=== PATIENT | female | born 1940 | race Caucasian/White ===

== ENCOUNTER → 2017-05-17 08:14 | Outpatient (CLI) | payer MEDICARE, SELFPAY ==
[2017-05-17 10:12] LABS: Absolute Lymphocyte Count 1.94 X10^3/ul (0.83-4.51); Absolute Neutrophil Count 1.8 X10^3/uL (2.0-7.7); Basophil# 0.04 X10^3/uL; Basophil% 0.9 % (0-1); Eosinophil# 0.15 X10^3/uL; Eosinophils% 3.4 % (0-5); Hematocrit 39.8 % (37-47); Hemoglobin 13.3 g/dl (12.0-15.0); Lymphocyte # 1.94 X10^3/ul (4.0); Lymphocyte % 43.5 % (19-41); Mean Corp Hgb Conc 33.4 g/gl (32-36); Mean Corpuscular Volume 92.8 fL (81-99); Mean Platelet Vol. 10.5 fl (6.2-12.0); Monocyte# 0.55 X10^3/uL; Monocyte% 12.3 % (0-10); Neutrophil # 1.78 X10^3/uL (2.7-7.7); Neutrophil % 39.9 % (47-70); Platelet Count 186 K/mm3 (150-450); RBC Distribution Width CV 13.1 % (11.6-14.6); RBC Distribution Width SD 43.2 fl (35.1-43.9); Red Blood Count 4.29 M/mm3 (4.2-5.4); White Blood Count 4.5 K/mm3 (4.4-11.0)
[2017-05-17 10:17] LABS: POSITIVE COUNT NO; POSITIVE DIFFERENTIAL NO; POSITIVE MORPHOLOGY NO
[2017-05-17 10:21] LABS: ALB/GLOB Ratio 1.1 RATIO (0.9-2.4); AST(SGOT) 27 U/L (15-37); Alanine Aminotransfer ALT/SGPT 19 U/L (13-56); Albumin, Serum 3.7 g/dL (3.2-5.0); Alkaline Phosphatase 50 U/L (45-117); Anion Gap 8 (5-15); BUN 27 mg/dL (7-18); BUN/Creat Ratio 34.8 RATIO (10-20); Calcium,Total 8.9 mg/dL (8.5-10.1); Chloride 105 mmol/L (98-107); Creatinine, Serum 0.78 mg/dL (0.55-1.02); EST Glomerular Filtration Rate 77 mL/min (>60); Est Glom Filt Rate - Afr Amer 93 mL/min (>60); Globulin 3.5 g/dL (2.2-4.2); Glucose 77 mg/dL (74-106); Potassium 4.1 mmol/L (3.5-5.1); Protein, Total 7.2 g/dL (6.4-8.2); Sodium Level 142 mmol/L (136-145)
[2017-05-17 10:25] LABS: Hemoglobin A1c 5.8 % (4.2-6.3)
[2017-05-17 10:27] LABS: Vitamin D,25 Hydroxy 44.6 ng/mL (29.95-100.01)
[2017-05-17 16:52] LABS: Microalbumin,Random Urine 7.3 mg/L (NO RANGE EST.)
== END ==
PROVIDERS: Family Provider Internal Medicine; PCP Internal Medicine; Visit Provider Internal Medicine
DX: R73.09 Other abnormal glucose (principal); M81.0 Age-related osteoporosis without current pathological fracture
CPT/HCPCS: 36415; 80053; 82043; 82306; 82570; 83036; 85025

== ENCOUNTER → 2017-08-24 12:58 | Outpatient (CLI) | payer MEDICARE, SELFPAY ==
--- NOTE | 2017-08-24 12:59 | BI_ITS ---
MAMMOGRAPHY - BILATERAL SCREENING REASON FOR EXAM: Female, 76 years old. Routine annual screening examination. PERTINENT HISTORY: Mother with breast cancer. TECHNIQUE: Digital bilateral breast tara (3D mammographic acquisition) in the CC and MLO projections. 2-D mediolateral oblique (MLO) and craniocaudad (CC) views of both breasts were obtained. CAD: Full Field Digital Mammography with Computer Added Detection was performed. COMPARISON: Comparison is made with prior study dated August 22, 2016 and August 21, 2015. FINDINGS: Breast Composition: The breasts are heterogeneously dense, which may obscure small masses. There are no dominant masses or suspicious calcifications. No other significant abnormalities are identified. There has been no significant change since the prior study. BI/SCREENING MAMM (CAD), BILAT IMPRESSION: Stable bilateral screening mammogram. Yearly follow-up mammogram recommended. (A) ASSESSMENT CATEGORY: BIRADS Category 1: Negative. A letter regarding these results will be sent to the patient by the facility within 30 days. Approximately 10% of breast cancers are not detected by mammography. A normal mammogram should not delay biopsy of a clinically suspicious abnormality. [id number] Electronically Signed: Graham Rivera MD at 8:04 EDT Tel [phone], Service support ,
== END ==
PROVIDERS: Family Provider Internal Medicine; PCP Internal Medicine; Visit Provider Internal Medicine
DX: Z12.31 Encounter for screening mammogram for malignant neoplasm of breast (principal)
CPT/HCPCS: 77063; 77067

== ENCOUNTER → 2018-01-20 09:01 | Outpatient (CLI) | payer MEDICARE, SELFPAY ==
[2018-01-20 09:58] LABS: Absolute Lymphocyte Count 1.66 X10^3/ul (0.83-4.51); Absolute Neutrophil Count 1.5 X10^3/uL (2.0-7.7); Basophil# 0.03 X10^3/uL; Basophil% 0.8 % (0-1); Eosinophil# 0.17 X10^3/uL; Eosinophils% 4.5 % (0-5); Hematocrit 38.8 % (37-47); Hemoglobin 12.4 g/dl (12.0-15.0); Lymphocyte # 1.66 X10^3/ul (4.0); Lymphocyte % 43.9 % (19-41); Mean Corpuscular Hgb 30.4 pg (27.0-32.0); Mean Corpuscular Volume 95.1 fL (81-99); Mean Platelet Vol. 10.2 fl (6.2-12.0); Monocyte# 0.43 X10^3/uL; Monocyte% 11.4 % (0-10); Neutrophil # 1.49 X10^3/uL (2.7-7.7); Neutrophil % 39.4 % (47-70); POSITIVE COUNT NO; POSITIVE DIFFERENTIAL NO; POSITIVE MORPHOLOGY NO; Platelet Count 177 K/mm3 (150-450); RBC Distribution Width CV 13.9 % (11.6-14.6); RBC Distribution Width SD 47.8 fl (35.1-43.9); Red Blood Count 4.08 M/mm3 (4.2-5.4); White Blood Count 3.8 K/mm3 (4.4-11.0)
[2018-01-20 10:16] LABS: Hemoglobin A1c 5.5 % (4.2-6.3)
[2018-01-20 10:21] LABS: Microalbumin,Random Urine 13.8 mg/L (NO RANGE EST.); Microalbumin:Creatinine Ratio 14.8 mg/g CRE (<30 mg/g CRE)
[2018-01-20 10:36] LABS: ALB/GLOB Ratio 1.1 RATIO (0.9-2.4); AST(SGOT) 25 U/L (15-37); Alanine Aminotransfer ALT/SGPT 25 U/L (13-56); Albumin, Serum 3.5 g/dL (3.2-5.0); Alkaline Phosphatase 47 U/L (45-117); Anion Gap 8 (5-15); BUN 27 mg/dL (7-18); BUN/Creat Ratio 37.5 RATIO (10-20); Calcium,Total 8.4 mg/dL (8.5-10.1); Chloride 108 mmol/L (98-107); Creatinine, Serum 0.72 mg/dL (0.55-1.02); EST Glomerular Filtration Rate 84 mL/min (>60); Est Glom Filt Rate - Afr Amer 101 mL/min (>60); Globulin 3.3 g/dL (2.2-4.2); Glucose 82 mg/dL (74-106); Potassium 4.1 mmol/L (3.5-5.1); Protein, Total 6.8 g/dL (6.4-8.2); Sodium Level 143 mmol/L (136-145)
== END ==
PROVIDERS: Family Provider Internal Medicine; PCP Internal Medicine; Referring Provider Internal Medicine; Visit Provider Internal Medicine
DX: R73.09 Other abnormal glucose (principal)
CPT/HCPCS: 36415; 80053; 82043; 82570; 83036; 85025

== ENCOUNTER → 2018-04-17 12:25 | Outpatient (CLI) | payer MEDICARE, SELFPAY ==
--- NOTE | 2018-04-17 12:31 | BD_ITS ---
STUDY: DUAL ENERGY X-RAY ABSORPTIOMETRY / DXA REASON FOR EXAM: Female, 77 years old. The patient is postmenopausal. Loss of height. TECHNIQUE: Bone Mineral Density (BMD) measurements of lumbar spine and bilateral hips were obtained. COMPARISON: Comparison is made with prior study dated April 13, 2016. FINDINGS: Lumbar Spine (L1-L4): g/cm2 (0.832) / T-score (-2.8) / Z-score (-1.0) Findings are suggestive of osteoporosis with a high fracture risk. Left Femur Total: g/cm2 (0.826) / T-score (-1.4) / Z-score (0.4) Left Femoral Neck: g/cm2 (0.841) / T-score (-1.4) / Z-score (0.6) Right Femur Total: g/cm2 (0.839) / T-score (-1.3) / Z-score (0.5) Right Femoral Neck: g/cm2 (0.782) / T-score (-1.8) / Z-score (0.1) The T-Scores on the most recent prior examination were: Lumbar Spine (L1-L4): There has been improvement of bone density since the previous examination. Left Femur Total: which represents a worsening of 1.3%. Right Femur Total: which represents an improvement of 3.2%. BD/Dexa Bone Density Study IMPRESSION: The patient is considered osteoporotic as outlined below according to World Trino Organization (WHO) criteria with a high fracture risk. There has been improvement of bone density since the previous examination. Reference Information: The T-score is the number of standard deviations above or below the standard which is normal for young adults at their peak bone mineral density. The World Health Organization (WHO) interprets the T-scores as follows: Above -1 Normal bone density Between -1 and -2.5 Osteopenia Equal to / or below -2.5 Osteoporosis As a practical clinical guideline, osteopenia may be graded as follows: Mild -1 through -1.5 Moderate -1.6 through -2.0 Severe -2.1 through -2.4 The Z-score is the number of standard deviations above or below age-matched controls. A Z-score of less than -1.5 would be considered abnormal. References: 1. NIH Osteoporosis and Related Bone Diseases http://www.osteo.org 2. International Society for Clinical Densitometry http://www.iscd.org 3. National Osteoporosis Foundation http://www.nof.org Electronically Signed: Graham Rivera MD at 12:46 EST , Service support ,
== END ==
PROVIDERS: Family Provider Internal Medicine; PCP Internal Medicine; Referring Provider Internal Medicine; Visit Provider Internal Medicine
DX: Z78.0 Asymptomatic menopausal state (principal)
CPT/HCPCS: 77080

== ENCOUNTER → 2018-05-17 08:08 | Outpatient (CLI) | payer MEDICARE, SELFPAY ==
[2018-05-17 09:08] LABS: Absolute Lymphocyte Count 1.93 X10^3/ul (0.83-4.51); Absolute Neutrophil Count 1.4 X10^3/uL (2.0-7.7); Basophil# 0.03 X10^3/uL; Basophil% 0.8 % (0-1); Eosinophil# 0.12 X10^3/uL; Eosinophils% 3.2 % (0-5); Hematocrit 40.5 % (37-47); Lymphocyte # 1.93 X10^3/ul (4.0); Lymphocyte % 51.6 % (19-41); Mean Corp Hgb Conc 32.1 g/gl (32-36); Mean Corpuscular Hgb 30.2 pg (27.0-32.0); Mean Corpuscular Volume 94.2 fL (81-99); Neutrophil # 1.36 X10^3/uL (2.7-7.7); Neutrophil % 36.4 % (47-70); POSITIVE COUNT NO; POSITIVE DIFFERENTIAL NO; POSITIVE MORPHOLOGY NO; Platelet Count 182 K/mm3 (150-450); RBC Distribution Width CV 13.3 % (11.6-14.6); RBC Distribution Width SD 45.6 fl (35.1-43.9); White Blood Count 3.7 K/mm3 (4.4-11.0)
[2018-05-17 09:13] LABS: Hemoglobin A1c 5.6 % (4.2-6.3)
[2018-05-17 09:30] LABS: ALB/GLOB Ratio 1.2 RATIO (0.9-2.4); AST(SGOT) 29 U/L (15-37); Alanine Aminotransfer ALT/SGPT 21 U/L (13-56); Albumin, Serum 3.8 g/dL (3.2-5.0); Alkaline Phosphatase 52 U/L (45-117); Anion Gap 4 (5-15); BUN 26 mg/dL (7-18); Calcium,Total 8.7 mg/dL (8.5-10.1); Chloride 108 mmol/L (98-107); Creatinine, Serum 0.76 mg/dL (0.55-1.02); EST Glomerular Filtration Rate 78 mL/min (>60); Est Glom Filt Rate - Afr Amer 94 mL/min (>60); Globulin 3.3 g/dL (2.2-4.2); Glucose 82 mg/dL (74-106); Potassium 4.4 mmol/L (3.5-5.1); Protein, Total 7.1 g/dL (6.4-8.2); Sodium Level 141 mmol/L (136-145)
[2018-05-18 08:29] LABS: Hep C Antibodies <0.1 s/co ratio (0.0-0.9)
== END ==
PROVIDERS: Family Provider Internal Medicine; PCP Internal Medicine; Referring Provider Internal Medicine; Visit Provider Internal Medicine
DX: Z11.59 Encounter for screening for other viral diseases (principal); R73.09 Other abnormal glucose
CPT/HCPCS: 36415; 80053; 83036; 85025; 86803

== ENCOUNTER → 2018-06-19 13:00 | Outpatient (CLI) | payer MEDICARE, SELFPAY ==
--- NOTE | 2018-06-19 13:05 | ECHOD_ITS ---
Reason For Study: Near Syncope Procedure This was a 2D Doppler, Color Flow transthoracic echocardiogram. Exam performed in department. Left Ventricle Normal LV size. Left ventricular systolic function is normal. The estimated ejection fraction is 65 %. Diastolic function is indeterminate. No regional wall motion abnormalities noted. Right Ventricle Normal RV size. Normal systolic function. Atria The left atrium is mildly enlarged. Normal right atrium. No doppler evidence for ASD. Mitral Valve There is no mitral annular calcification. Normal mitral valve. Trivial mitral valve insufficiency. Tricuspid Valve Normal tricuspid valve. Trivial tricuspid valve insufficiency. Right ventricular systolic pressure estimated to be 16 mmHg. Aortic Valve Trisinus/trileaflet aortic valve. Mild focal aortic valve calcification. Pulmonic Valve The pulmonic valve is not well visualized. Great Vessels The aortic root is not well visualized. Pericardium/Pleural No pericardial effusion. MMode/2D Measurements & Calculations LVIDd: 3.8 cm IVSd: 0.85 cm LA dimension: 2.9 cm LVIDs: 1.9 cm LVPWd: 0.88 cm RVDd: 2.7 cm FS: 50.2 % LAV(MOD-bp): 67.8 ml LA A4 area: 21.4 cm2 RA A4 area: 14.4 cm2 LAV(MOD-bp) Indexed: 42.3 ml/m2 LAV(MOD-sp2): 66.5 ml LAV(MOD-sp4): 66.6 ml Time Measurements MV dec time: 0.25 sec Doppler Measurements & Calculations MV E max shabbir: 74.7 cm/sec Lat Peak E' Shabbir: 8.4 cm/sec Med Peak E' Shabbir: 7.0 cm/sec MV A max shabbir: 77.3 cm/sec E/E' lat: 8.9 E/E' med: 10.7 MV E/A: 0.97 MV V2 max: 87.9 cm/sec MV P1/2t max shabbir: 84.7 cm/sec Ao V2 max: 129.3 cm/sec MV max P.1 mmHg MV P1/2t: 96.8 msec Ao max P.7 mmHg MV V2 mean: 45.5 cm/sec MV dec slope: 256.2 cm/sec2 MV mean P.0 mmHg MVA(P1/2t): 2.3 cm2 MV V2 VTI: 29.9 cm LV V1 max: 99.7 cm/sec PA V2 max: 88.6 cm/sec TR max shabbir: 180.9 cm/sec LV V1 max P.0 mmHg TR max P.1 mmHg Interpretation Summary Left ventricular systolic function is normal. The estimated ejection fraction is 65 %. The left atrium is mildly enlarged. Trivial mitral valve insufficiency. Trivial tricuspid valve insufficiency. Mild focal aortic valve calcification. Right ventricular systolic pressure estimated to be 16 mmHg. Diastolic function is indeterminate. Ordering Physician: Gia Grover Referring Physician: Gia Grover Performed By: Terry Epps RCS
== END ==
PROVIDERS: Family Provider Internal Medicine; PCP Internal Medicine; Referring Provider Internal Medicine; Visit Provider Internal Medicine
DX: R55 Syncope and collapse (principal)
CPT/HCPCS: 93225; 93226; 93306

== ENCOUNTER → 2018-06-22 | Outpatient (CLI) | payer MEDICARE, SELFPAY | END | disposition home or self-care (01) | PROVIDERS: Family Provider Internal Medicine; PCP Internal Medicine; Referring Provider Internal Medicine; Visit Provider Internal Medicine | DX: R55 Syncope and collapse (principal) | CPT/HCPCS: 93225; 93226 ==

== ENCOUNTER → 2018-07-06 | Outpatient (CLI) | payer MEDICARE, SELFPAY ==
--- NOTE | 2018-07-06 09:34 | STRESSREP ---
Stress Test Report Date: 07-06-18 Procedure: Exercise tolerance test/imaging study Indications: Syncope Consent: Per the patient Procedure: The patient exercised on a Wally protocol for 7 minutes completing Stage II and 1 minute of Stage III achieving a peak heart rate of 173 bpm (95 % predicted maximal heart rate) with a peak blood pressure 142/70 mmHg and a peak MET capacity of 8 METs. The baseline ECG demonstrated normal sinus rhythm. The peak exercise ECG demonstrated no obvious ECG changes. There were rare PACs pretest and rare PVCs during exercise and recovery. The functional capacity was considered good. There was no complaint of chest discomfort during exercise or recovery. The examination was discontinued secondary to dyspnea. Impression: 1. Technically adequate (percent predicted maximal heart rate greater than 85%) exercise tolerance test 2. Peak exercise ECG with no obvious ECG changes 3. There were rare PACs pretest and rare PVCs during exercise and recovery 4. Nuclear images pending Myocardial perfusion imaging study: Technique: The patient was injected with 10.8 mCi of technetium 99m Cardiolite and subsequently rest SPECT Cardiolite nuclear imaging was obtained in the horizontal long, vertical long, and short axis views. The patient exercised on a Wally protocol for 7 minutes completing Stage II and 1 minute of Stage III achieving a peak heart rate of 173 bpm (95 % predicted maximal heart rate) with a peak blood pressure 142/70 mmHg and a peak MET capacity of 8 METs. The patient was injected with 33.5 mCi of technetium 99m Cardiolite and subsequently stress SPECT Cardiolite nuclear imaging was obtained in the horizontal long, vertical long, and short axis views. A gated Cardiolite study at peak stress was obtained. Interpretation: Rest and stress SPECT Cardiolite nuclear imaging status post realignment, normalization, and attenuation correction, demonstrates the appearance of relative uniform tracer uptake and myocardial perfusion appearing within normal limits. There is end systolic thickening and brightening. The gated Cardiolite study demonstrates myocardial thickening and inward wall motion. The reported LVEF is 85 %. Impression: 1. Rest and stress SPECT Cardiolite nuclear imaging demonstrate relative uniform tracer uptake and myocardial perfusion appearing within normal limits. 2. The gated Cardiolite study reports an LVEF of 85 %. This note was generated with [employer] software. It may contain incorrect words, spelling, and punctuation that were not noted in checking the note before signing.
== END | disposition home or self-care (01) ==
LOC: CVS 06:45
PROVIDERS: Family Provider Internal Medicine; PCP Internal Medicine; Referring Provider Internal Medicine; Visit Provider Internal Medicine
DX: R06.02 Shortness of breath (principal); R55 Syncope and collapse
CPT/HCPCS: 78452; 93017; A9500; A4216

== ENCOUNTER → 2018-07-10 | Outpatient (CLI) | payer MEDICARE, SELFPAY ==
--- NOTE | 2018-07-10 13:45 | MRI_ITS ---
STUDY: MRI BRAIN WITH AND WITHOUT CONTRAST REASON FOR EXAM: Female, 77 years old. Syncope with episodes of dizziness. TECHNIQUE: Standardized multiplanar fat and water weighted pulse sequences were obtained. 11 ml of IV Dotarem was administered for the contrast portion of the examination. COMPARISON: Prior comparison studies are not available for review at this time. FINDINGS: There is mild cerebral atrophy with widening of the extra-axial spaces and ventricular dilatation. There are a limited number of small white matter hyperintensities, distributed throughout the deep white matter tracts of the cerebral hemispheres, consistent with mild chronic white matter ischemic changes. There is no evidence for recent intracranial ischemia or other cause of cytotoxic edema on diffusion weighted imaging (DWI). Normal T2* images of the brain without demonstrated susceptibility artifact. There is no demonstrated hemosiderin stain. Normal bilateral basal ganglia. Normal thalami. There is no extra-axial fluid accumulation. Normal flow voids within the major intracranial circulation suggesting patency by spin echo criteria. Normal venous enhancement. There is no enhancing intra-axial or extra-axial abnormality. Normal sella turcica, pituitary gland, infundibular stalk, optic chiasm and hypothalamus. Normal tectal plate and pineal gland. Normal midbrain, gregg and medulla. Normal cerebellum. There are large basal cisterns. Normal bilateral temporal bones. Normal bilateral internal auditory canals. No demonstrated orbital abnormality, within the constraints of a routine brain study. There is a right-sided maxillary mucous retention cyst. Normal calvarium and skull base. Normal visualized soft tissue structures. Normal visualized upper cervical spine. MRI/Brain W/WO Contrast IMPRESSION: 1. Involutional changes of the brain, as described above. 2. No MR evidence for acute infarct. Electronically Signed: Arin Wagoner MD at 9:15 EDT , Service support ,
[2018-07-10 14:16] LABS: CREATININE FINGERSTICK 0.8 mg/dL (0.55-1.02); EGFR FINGERSTICK > 60.0000 mL/min (>60)
== END | disposition home or self-care (01) ==
LOC: MRI 12:56
PROVIDERS: Family Provider Internal Medicine; PCP Internal Medicine; Referring Provider Internal Medicine; Visit Provider Internal Medicine
DX: R55 Syncope and collapse (principal)
CPT/HCPCS: 70553; A9575

== ENCOUNTER → 2018-08-29 | Outpatient (CLI) | payer MEDICARE, SELFPAY ==
--- NOTE | 2018-08-29 14:54 | BI_ITS ---
MAMMOGRAPHY - BILATERAL SCREENING 3-D TOMOSYNTHESIS REASON FOR EXAM: Female, 78 years old. Bilateral Screening 3-D tomosynthesis PERTINENT HISTORY: No significant family history. TECHNIQUE: 2-D mammograms and 3-D Tomosynthesis of the breast (s) were performed. CAD was performed. COMPARISON: August 24, 2017, August 21, 2016 FINDINGS: The breast composition is composed of scattered fibroglandular density. Scattered benign calcifications are seen. No dense spiculated masses or suspicious microcalcifications are identified. No architectural distortion is identified. There is no skin thickening or retraction. There has been no significant change since the prior study. BI/SCREEN MAMM (CAD) W/[place] BILAT IMPRESSION: No mammographic signs of malignancy. Routine yearly mammograms recommended. ASSESSMENT CATEGORY: BIRADS Category 2: Benign. A letter regarding these results will be sent to the patient by the facility within 30 days. FOLLOW UP RECOMMENDATION: Yearly follow up mammogram recommended. (A) Approximately 10% of breast cancers are not detected by mammography. A normal mammogram should not delay biopsy of a clinically suspicious abnormality. Electronically Signed: Servando Mahmood MD at 15:50 EDT , Service support ,
== END | disposition home or self-care (01) ==
LOC: OPBI 14:51
PROVIDERS: Family Provider Internal Medicine; PCP Internal Medicine; Referring Provider Internal Medicine; Visit Provider Internal Medicine
DX: Z12.31 Encounter for screening mammogram for malignant neoplasm of breast (principal)
CPT/HCPCS: 77063; 77067

== ENCOUNTER → 2018-10-18 | Outpatient (CLI) | payer MEDICARE, SELFPAY ==
[2018-10-18 08:44] LABS: Absolute Neutrophil Count 1.7 X10^3/uL (2.0-7.7); Basophil# 0.05 X10^3/uL; Basophil% 1.2 % (0-1); Eosinophil# 0.22 X10^3/uL; Eosinophils% 5.2 % (0-5); Hematocrit 40.1 % (37-47); Lymphocyte % 42.4 % (19-41); Mean Corp Hgb Conc 32.4 g/dL (32-36); Mean Corpuscular Hgb 30.5 pg (27.0-32.0); Mean Corpuscular Volume 94.1 fL (81-99); Monocyte# 0.49 X10^3/uL; Monocyte% 11.5 % (0-10); NRBC Flagged by Analyzer 0 % (0-5); Neutrophil # 1.68 X10^3/uL (2.7-7.7); Neutrophil % 39.5 % (47-70); Platelet Count 178 K/mm3 (150-450); RBC Distribution Width CV 13.3 % (11.6-14.6); RBC Distribution Width SD 45.9 fl (35.1-43.9); Red Blood Count 4.26 M/mm3 (4.2-5.4); White Blood Count 4.3 K/mm3 (4.4-11.0)
[2018-10-18 09:12] LABS: AST(SGOT) 22 U/L (15-37); Alanine Aminotransfer ALT/SGPT 19 U/L (13-56); Albumin, Serum 3.5 g/dL (3.2-5.0); Alkaline Phosphatase 50 U/L (45-117); Anion Gap 5 (5-15); BUN 25 mg/dL (7-18); BUN/Creat Ratio 28.8 RATIO (10-20); Calcium,Total 8.9 mg/dL (8.5-10.1); Chloride 106 mmol/L (98-107); Cholesterol 189 mg/dL (200); Creatinine, Serum 0.87 mg/dL (0.55-1.02); EST Glomerular Filtration Rate 67 mL/min (>60); Est Glom Filt Rate - Afr Amer 82 mL/min (>60); Globulin 3.4 g/dL (2.2-4.2); Glucose 80 mg/dL (74-106); High Density Lipoprotein 115 mg/dL; Potassium 4.1 mmol/L (3.5-5.1); Protein, Total 6.9 g/dL (6.4-8.2); Sodium Level 142 mmol/L (136-145); Triglycerides 48 mg/dL; Very Low Density Lipoprotein 10 mg/dL (5-40)
[2018-10-18 09:19] LABS: Hemoglobin A1c 5.8 % (4.2-6.3)
[2018-10-21 11:07] LABS: Rubeola IgG Ab > 300.0 AU/mL (Immune >29.9)
== END | disposition home or self-care (01) ==
LOC: LAB 07:59
PROVIDERS: Family Provider Internal Medicine; PCP Internal Medicine; Referring Provider Internal Medicine; Visit Provider Internal Medicine
DX: Z01.84 Encounter for antibody response examination (principal); R73.09 Other abnormal glucose; I67.9 Cerebrovascular disease, unspecified; I70.8 Atherosclerosis of other arteries
CPT/HCPCS: 36415; 80053; 80061; 83036; 85025; 86765

== ENCOUNTER → 2019-03-12 12:58 | Outpatient (CLI) | payer MEDICARE, SELFPAY ==
--- NOTE | 2019-03-12 16:55 | PFTCOMP ---
COMPLETE PULMONARY FUNCTION TEST INTERPRETATION Brief HPI: Patient is a 78 year old female, currently under the care of Dr. Grover, who presents to [facility] for complete pulmonary function tests secondary to diagnosis of abnormal pulmonary function test. Respiratory therapist reports good effort and reproducible results. Interpretation: Forced expiration spirometry shows no large airways obstructive ventilatory defect with an FEV1 of 93% predicted. There is no significant bronchodilator response by strict ATS criteria. Spirograms are of good quality and plateau normally. The respiratory flow volume loop shows a normal pattern. Lung volumes by body plethysmography show a normal total lung capacity at 4.48 L, 94% predicted. All other lung volumes are within normal limits. Diffusion capacity by carbon monoxide is normal at 105% predicted. The airway resistance is normal. No previous pulmonary function tests were available for review. Impression: This pulmonary function test is within normal limits.
== END ==
PROVIDERS: Family Provider Internal Medicine; PCP Internal Medicine; Referring Provider Internal Medicine; Visit Provider Internal Medicine
DX: R94.2 Abnormal results of pulmonary function studies (principal)
CPT/HCPCS: 94060; 94726; 94729

== ENCOUNTER → 2019-03-19 14:30 | Outpatient (CLI) | payer MEDICARE, SELFPAY ==
--- NOTE | 2019-03-19 14:35 | RAD_ITS ---
STUDY: X-RAY CHEST REASON FOR EXAM: Female, 78 years old. INCREASED SOB ON EXERTION TECHNIQUE: 2 views COMPARISON: None. FINDINGS: The lungs are clear and expanded. There is no demonstrated pleural abnormality. Normal size heart. Normal mediastinum and vasu. Normal visualized pulmonary arteries. Normal visualized aortic arch and descending thoracic aorta. Normal visualized thoracic spine. Normal visualized ribs, clavicles, and shoulders. There is no demonstrated abnormality of the visualized soft tissue structures of the upper abdomen. RAD/Chest PA and Lateral IMPRESSION: Normal x-ray examination of the chest. No acute findings in the lungs Electronically Signed: Fahad De La Torre MD at 5:02 EST Tel , Service support ,
== END ==
PROVIDERS: Family Provider Internal Medicine; PCP Internal Medicine; Referring Provider Internal Medicine; Visit Provider Internal Medicine
DX: R94.2 Abnormal results of pulmonary function studies (principal)
CPT/HCPCS: 71046

== ENCOUNTER → 2019-09-02 16:30 | Outpatient (CLI) | payer MEDICARE, SELFPAY ==
--- NOTE | 2019-09-02 15:38 | BI_ITS ---
MAMMOGRAPHY - BILATERAL SCREENING REASON FOR EXAM: Female, 79 years old. Routine annual screening examination. PERTINENT HISTORY: Mother with breast cancer. TECHNIQUE: Digital bilateral breast charlotte (3D mammographic acquisition) in the CC and MLO projections. 2-D mediolateral oblique (MLO) and craniocaudad (CC) views of both breasts were obtained. CAD: Full Field Digital Mammography with Computer Added Detection was performed. COMPARISON: Comparison is made with prior study dated August 29, 2018 and August 24, 2017. FINDINGS: Breast Composition: There are scattered areas of fibroglandular density. There are no dominant masses or suspicious calcifications. No other significant abnormalities are identified. There has been no significant change since the prior study. BI/SCREEN MAMM (CAD) W/CHARLOTTE BILAT IMPRESSION: Stable bilateral screening mammogram. Yearly follow-up mammogram recommended. (A) ASSESSMENT CATEGORY: BIRADS Category 1: Negative. A letter regarding these results will be sent to the patient by the facility within 30 days. Approximately 10% of breast cancers are not detected by mammography. A normal mammogram should not delay biopsy of a clinically suspicious abnormality. [id number] Electronically Signed: Graham Rivera, at 8:56 EDT , Service support ,
== END ==
PROVIDERS: PCP Internal Medicine; Referring Provider Internal Medicine; Visit Provider Internal Medicine
DX: Z12.31 Encounter for screening mammogram for malignant neoplasm of breast (principal)
CPT/HCPCS: 77063; 77067

== ENCOUNTER → 2019-09-11 08:52 | Outpatient (CLI) | payer MEDICARE, SELFPAY ==
[2019-09-11 09:16] LABS: Bacteria 0 SEEN /hpf (None Seen); Mucous, Urine 0 SEEN /hpf (<or=2+); Red Blood Cells-Urine 0 SEEN /hpf (0-5); White Blood Cells 0 SEEN /hpf (0-5)
[2019-09-11 09:42] LABS: Color, Urine Yellow (Yellow); Glucose, Dipstick Normal (Normal); Ketone-Dipstick Negative (Negative); Leukocyte Esterase-Dipstick Negative /ul (Negative); Nitrite-Dipstick Negative (Negative); Occult Blood-Urine Negative /ul (Negative); Protein-Dipstick Negative (Negative); Specific Gravity, Urine 1.015 (1.002-1.030); Urine Bilirubin Dipstick Negative (Negative); Urine Clarity Sl. Cloudy (Clear); Urine Urobilinogen Normal (Normal); Urine pH 6.5 (5.0 - 8.0)
[2019-09-11 09:44] LABS: Absolute Lymphocyte Count 1.72 X10^3/uL (0.83-4.51); Absolute Neutrophil Count 1.7 X10^3/uL (2.0-7.7); Basophil# 0.04 X10^3/uL; Eosinophil# 0.17 X10^3/uL; Eosinophils% 4.2 % (0-5); Hematocrit 39.2 % (37-47); Hemoglobin 12.8 g/dL (12.0-15.0); Lymphocyte # 1.72 X10^3/ul (4.0); Lymphocyte % 42.4 % (19-41); Mean Corp Hgb Conc 32.7 g/dL (32-36); Mean Corpuscular Hgb 30.9 pg (27.0-32.0); Mean Corpuscular Volume 94.7 fL (81-99); Monocyte# 0.43 X10^3/uL; Monocyte% 10.6 % (0-10); NRBC Flagged by Analyzer 0 % (0-5); Neutrophil # 1.69 X10^3/uL (2.7-7.7); Neutrophil % 41.6 % (47-70); Platelet Count 189 K/mm3 (150-450); RBC Distribution Width CV 13.2 % (11.6-14.6); RBC Distribution Width SD 45.1 fl (35.1-43.9); Red Blood Count 4.14 M/mm3 (4.2-5.4); White Blood Count 4.1 K/mm3 (4.4-11.0)
[2019-09-11 09:54] LABS: Squamous Epithelial Cells - UA 0-5 SEEN /hpf (5-10)
[2019-09-11 10:04] LABS: Hemoglobin A1c 5.4 % (3.8-5.6)
[2019-09-11 10:05] LABS: Microalbumin,Random Urine 6.6 mg/L (NO RANGE EST.)
[2019-09-11 10:36] LABS: Vitamin D,25 Hydroxy 62.6 ng/mL
[2019-09-11 10:43] LABS: ALB/GLOB Ratio 1.1 RATIO (0.9-2.4); AST(SGOT) 18 U/L (15-37); Alanine Aminotransfer ALT/SGPT 20 U/L (13-56); Albumin, Serum 3.6 g/dL (3.2-5.0); Alkaline Phosphatase 45 U/L (45-117); Anion Gap 4 (5-15); BUN 26 mg/dL (7-18); BUN/Creat Ratio 36.8 RATIO (10-20); Calcium,Total 8.7 mg/dL (8.5-10.1); Chloride 110 mmol/L (98-107); Cholesterol 186 mg/dL (200); Creatinine, Serum 0.71 mg/dL (0.55-1.02); EST Glomerular Filtration Rate 85 mL/min (>60); Est Glom Filt Rate - Afr Amer 103 mL/min (>60); Globulin 3.4 g/dL (2.2-4.2); Glucose 86 mg/dL (74-106); High Density Lipoprotein 119 mg/dL; Potassium 4.1 mmol/L (3.5-5.1); Sodium Level 142 mmol/L (136-145); Triglycerides 37 mg/dL; Very Low Density Lipoprotein 7 mg/dL (5-40)
== END ==
PROVIDERS: PCP Internal Medicine; Referring Provider Internal Medicine; Visit Provider Internal Medicine
DX: R73.09 Other abnormal glucose (principal); M81.0 Age-related osteoporosis without current pathological fracture; D72.820 Lymphocytosis (symptomatic); I70.8 Atherosclerosis of other arteries
CPT/HCPCS: 36415; 80053; 80061; 81001; 82043; 82306; 82570; 83036; 85025

== ENCOUNTER 2020-03-09 17:31 | Emergency (ER) | payer MEDICARE, SELFPAY ==
[2020-03-09 17:32] VITALS: BP 147/82; PULSE 77; RESP 16; TEMP 36.1; O2SAT 99; BMI 21.6
--- NOTE | 2020-03-09 17:37 | CT_ITS ---
STUDY: CT ABDOMEN AND PELVIS WITH CONTRAST REASON FOR EXAM: Female, 79 years old. RLQ PAIN THAT EXTENDS OVER TO LEFT RADIATION DOSAGE (If Supplied By Facility): CTDIvol = ( 5.26 ) mGy, DLP = ( 345.89 ) mGycm TECHNIQUE: Transaxial images were obtained from the dome of the diaphragm to the symphysis pubis without oral contrast. IV 75mL Isovue-370 was administered. Sagittal and coronal images were reconstructed. Individualized dose optimization techniques were used for this CT. COMPARISON: 09/17/2011. FINDINGS: The visualized lung bases are unremarkable. The visualized portions of the heart are within normal limits. Normal liver incidental 1.4 cm stable probable cyst of the posterior segment of the right lobe.. Normal gallbladder and extrahepatic biliary system. Normal spleen. Normal pancreas. Normal bilateral adrenal glands. Normal right kidney. Normal left kidney. Evaluation of the GI tract is limited by absence of oral contrast. Cannot exclude stomach wall thickening. No dilated loops of bowel or evidence for obstruction. Cannot exclude segmental thickening of the chicas of the small or large bowel. Cannot exclude enteritis or colitis. Moderate diffuse fecal retention. Appendix within normal limits. Normal abdominal aorta. Normal inferior vena cava. Normal retroperitoneum. Cannot exclude thickening of the wall of the bladder which is not completely distended. Normal uterus for age. Normal abdominal wall. Normal osseous structures. CT/Abdomen/Pelvis W IV Cont ONLY IMPRESSION: No definite acute abnormalities, but the evaluation of the GI tract is limited by the absence of oral contrast and neither enteritis nor colitis can be excluded. Electronically Signed: Noah Porras MD at 19:21 EST , Service support ,
--- NOTE | 2020-03-09 17:38 | ED.VIS.GEN ---
History of Present Illness Chief Complaint: Abd Pain Informant: Patient Onset: Today Context: Gradual Onset Timing: Continuous Current Severity: Moderate Maximum Severity: Moderate Narrative: The patient is a 79-year-old female who is otherwise very healthy who presents to the emergency department with abdominal pain. Patient states she woke this morning with some lower abdominal pain. She describes it as mild cramping in nature. She states that she has had diminished appetite. She denies any fevers or chills. She went to her primary care. She states they did a urine there which was unremarkable. On examination, she was tender in the right lower quadrant. She was sent over for further evaluation. Patient states that she is never felt like this before. She has no history of prior abdominal surgery. She denies difficulty moving her bowels. She states she is otherwise been in her normal state of health. Prior similar symptoms: No Recent Illness/Hospitalization: No Past Medical History - Allergies and Home Meds Allergies/Adverse Reactions: Allergies No Known Allergies Allergy (Verified 03/09/20 17:32) Primary Care Physician: Gia Grover DO [Primary Care Provider] - Prior records reviewed: Yes Past Medical History: - - Atherosclerosis, osteoporosis, migraine Surgical History: noncontributory Smoking Status: Never smoker Review of Systems General: Denies: Chills, Fever, Sweats Eyes: Denies: Visual changes - bilaterally, Diplopia ENT: Denies: Rhinorrhea, Sore throat Cardiovascular: Denies: Chest pain, Palpitations Respiratory: Denies: Dyspnea, Cough, Dyspnea on exertion Gastrointestinal: Reports: Abdominal pain, Nausea. Denies: Vomiting, Diarrhea, Melena, Hematochezia Genitourinary: Denies: Dysuria, Hematuria, Frequency Musculoskeletal: Denies: Back pain, Extremity Pain Skin: Denies: Rash, Wounds Neurological: Denies: Headache, Weakness, Numbness Physical Exam Vital Signs/Narrative: Vital Signs Temp Pulse Resp BP Pulse Ox 03/09/20 17:32 97 F L 77 16 147/82 H 99 Inital Vital Signs reviewed: Yes General: Well nourished, Well developed, No Acute Distress Head: Normocephalic, Atraumatic Eyes: Perrl, EOMI ENT: Moist mucous membranes, No rhinorrhea Neck: Supple, Nontender Cardiovascular: Regular rate, Regular rhythm, No murmurs Respiratory: No distress, CTA bilaterally, Chest nontender Abdomen: Soft, Nondistended, Normal bowel sounds, Tender. Negative for: Guarding, Rebound tenderness Back: Nontender, Normal Inspection Extremities: Nontender, No edema Skin: Normal color, No rash Neurological: Alert, Oriented x3, Cranial nerves II-XII grossly intact, Normal Strength, Normal Sensation Psychological: Normal affect, Normal Mood Diagnostic/Tx/Re-eval Clinical Impression(s) from Imaging Studies Abdomen/Pelvis CT 03/09/20 17:37 IMPRESSION: No definite acute abnormalities, but the evaluation of the GI tract is limited by the absence of oral contrast and neither enteritis nor colitis can be excluded. Electronically Signed: Noah Porras MD at 19:21 EST , Service support , Abnormal Lab Results 03/09/20 03/09/20 03/09/20 17:50 17:50 17:50 WBC 11.8 H RBC 4.33 Hgb 14.1 Hct 40.8 MCV 94.2 MCH 32.6 H MCHC 34.6 RDW Std Deviation 44.8 H RDW Coeff of Thee 13.2 Plt Count 188 MPV 9.8 Immature Gran % (Auto) 0.500 Neut % (Auto) 84.1 H Lymph % (Auto) 8.1 L Kimball % (Auto) 6.7 Eos % (Auto) 0.2 Baso % (Auto) 0.4 Absolute Neuts (auto) 10.0 H Absolute Lymphs (auto) 0.96 Nucleated RBC % 0 Sodium 137 Potassium 4.1 Chloride 103 Carbon Dioxide 27.0 Anion Gap 7 BUN 24 H Creatinine 0.90 Estim Creat Clear Calc 44.49 Est GFR (MDRD) Af Amer 78 Est GFR (MDRD) Non-Af 64 BUN/Creatinine Ratio 26.6 H Glucose 106 Lactic Acid 1.8 Calcium 9.1 Total Bilirubin 1.10 H AST 23 ALT 26 Alkaline Phosphatase 64 Total Protein 7.8 Albumin 4.0 Globulin 3.8 Albumin/Globulin Ratio 1.1 Lipase 58 L - Medical Decision Making The patient presents from her doctor's office for lower abdominal pain. She has no history of prior abdominal surgery. She did have a urine in the office which was negative. Metabolic work-up was pursued. She does have a mild leukocytosis. Otherwise her labs are unremarkable. Lactic is negative. Patient underwent CT of the abdomen pelvis with IV contrast. Her appendix is identified and is normal. There is no other acute abnormalities that are found with the limits of the contrasted exam. On reevaluation, the patient still has some mild pain. She is given analgesics and antiemetics. After 30 minutes, she had resolution of her symptoms. She is drinking without issue. She wants to attempt outpatient therapy and I feel this is reasonable. I did after school counselor her that if her symptoms worsen in any way, she has a fever, or anything changes to return. She is comfortable with this plan of care. Impression 1. Right lower quadrant pain ED Disposition - Plan for ED Patient: Instructions: ED Abdominal Pain Unkn Cause Fem Prescriptions: Dicyclomine HCl [Bentyl] 20 mg PO TIDAC #20 cap Prescription Printed Ondansetron [Zofran Odt] 4 mg PO Q8H PRN PRN #10 tab PRN Reason: Nausea Prescription Printed Referrals: Gia Grover DO [Primary Care Provider] -
[2020-03-09] MEDS: 0.9% Normal Saline 1,000 ML 125 ML IV (17:59)
[2020-03-09 18:06] LABS: Absolute Lymphocyte Count 0.96 X10^3/uL (0.83-4.51); Basophil# 0.05 X10^3/uL; Basophil% 0.4 % (0-1); Eosinophil# 0.02 X10^3/uL; Eosinophils% 0.2 % (0-5); Hematocrit 40.8 % (37-47); Hemoglobin 14.1 g/dL (12.0-15.0); Lymphocyte # 0.96 X10^3/ul (4.0); Lymphocyte % 8.1 % (19-41); Mean Corp Hgb Conc 34.6 g/dL (32-36); Mean Corpuscular Hgb 32.6 pg (27.0-32.0); Mean Corpuscular Volume 94.2 fL (81-99); Mean Platelet Vol. 9.8 fl (6.2-12.0); Monocyte# 0.79 X10^3/uL; Monocyte% 6.7 % (0-10); NRBC Flagged by Analyzer 0 % (0-5); Neutrophil # 9.96 X10^3/uL (2.7-7.7); Neutrophil % 84.1 % (47-70); Platelet Count 188 K/mm3 (150-450); RBC Distribution Width CV 13.2 % (11.6-14.6); RBC Distribution Width SD 44.8 fl (35.1-43.9); Red Blood Count 4.33 M/mm3 (4.2-5.4); White Blood Count 11.8 K/mm3 (4.4-11.0)
[2020-03-09 18:22] LABS: ALB/GLOB Ratio 1.1 RATIO (0.9-2.4); AST(SGOT) 23 U/L (15-37); Alanine Aminotransfer ALT/SGPT 26 U/L (13-56); Alkaline Phosphatase 64 U/L (45-117); Anion Gap 7 (5-15); BUN 24 mg/dL (7-18); BUN/Creat Ratio 26.6 RATIO (10-20); Calcium,Total 9.1 mg/dL (8.5-10.1); Chloride 103 mmol/L (98-107); EST Glomerular Filtration Rate 64 mL/min (>60); Est Glom Filt Rate - Afr Amer 78 mL/min (>60); Estimated Creatinine Clearance 44.49 ml/min; Globulin 3.8 g/dL (2.2-4.2); Glucose 106 mg/dL (74-106); Lipase 58 U/L (73-393); Potassium 4.1 mmol/L (3.5-5.1); Protein, Total 7.8 g/dL (6.4-8.2); Sodium Level 137 mmol/L (136-145)
[2020-03-09 18:27] LABS: Lactic Acid 1.8 mmol/L (0.4-1.9)
[2020-03-09] MEDS: Ondansetron 4 MG/2 ML Vial IV (19:34)
[2020-03-09] MEDS: Morphine 2 MG/ML Syringe IV (19:34)
[2020-03-09] MEDS: Dicyclomine 10 MG Capsule 20 MG PO (19:34)
[2020-03-09 19:35] VITALS: BP 124/9; PULSE 67; RESP 15; O2SAT 96
== END 2020-03-09 20:23 | disposition home or self-care (01) ==
PROVIDERS: Emergency Provider Emergency Medicine; PCP Internal Medicine
DX: R10.31 Right lower quadrant pain (principal); R11.0 Nausea
CPT/HCPCS: 74177; 80053; 83605; 83690; 85025; 96361; 96374; 96375; 99284; J7030; Q9967; J2405

== ENCOUNTER → 2020-03-10 11:57 | Outpatient (CLI) | payer MEDICARE, SELFPAY ==
[2020-03-09 17:32] VITALS: BMI 21.6
--- NOTE | 2020-03-10 15:01 | CT_ITS ---
STUDY: CT ABDOMEN AND PELVIS WITHOUT CONTRAST REASON FOR EXAM: Female, 79 years old. Abdominal PAIN-RLQ. RADIATION DOSAGE (If Supplied By Facility): CTDIvol = ( 6.11 ) mGy, DLP = ( 274.70 ) mGycm TECHNIQUE: Transaxial images were obtained from the dome of the diaphragm to the symphysis pubis without oral contrast, and without intravenous contrast. Sagittal and coronal images were reconstructed. Individualized dose optimization techniques were used for this CT. COMPARISON: 03/09/2020. FINDINGS: Oral contrast was given and shows that there are no dilated loops of bowel or evidence for obstruction. There is suggestion of stomach wall thickening which can be further evaluated with endoscopy. Loops of bowel in the pelvis also suggest wall thickening. There is probable thickening of the cecum and terminal ileum. Findings suggest nonspecific enterocolitis. Normal appendix. No other changes or findings since yesterday''s study. No gross acute abnormality seen of the liver, gallbladder, pancreas, spleen or kidneys. CT/Abdomen/Pel W ORAL Cont Only IMPRESSION: After the administration of oral contrast, there is strong suggestion of stomach wall thickening along with numerous loops of thickened small bowel and large bowel. Correlate clinically and consider upper endoscopy and colonoscopy. Electronically Signed: Noah Porras MD at 18:23 EST , Service support ,
== END ==
PROVIDERS: PCP Internal Medicine; Referring Provider Internal Medicine; Visit Provider Internal Medicine
DX: R10.9 Unspecified abdominal pain (principal)
CPT/HCPCS: 74176

== ENCOUNTER 2020-03-12 16:01 | Inpatient (IN) | payer MEDICARE, SELFPAY ==
[2020-03-12 13:39] VITALS: BMI 21.3
[2020-03-12 14:53] VITALS: BMI 20.5
--- NOTE | 2020-03-12 14:55 | PCM.HP.BLA ---
Problem List (1) Enterocolitis Status: Acute (2) Dehydration Status: Acute (3) Tachycardia Status: Acute (4) Diarrhea Status: Acute Qualifiers: (5) Abdominal pain Status: Acute Qualifiers: History and Physical Date of Admission: 03/12/20 Intake Intake Visit Reasons: Upper/Lower Scope Abdominal Pain Allergies No Known Allergies Allergy (Verified 03/12/20 13:40) [facility] Medical History (Updated 03/12/20 @ 13:[address] Jason Madrigal MD) Enterocolitis (Acute) Dehydration (Acute) Tachycardia (Acute) Diarrhea (Acute) Abdominal pain (Acute) Atherosclerosis (Acute) Cardiac arrhythmia (Acute) Osteoarthritis (Acute) Small vessel disease, cerebrovascular (Acute) Syncope (Acute) Surgical History (Updated 03/12/20 @ 13:38 by Dorothea Nixon) History of colonoscopy (Acute) History of esophagogastroduodenoscopy (EGD) (Acute) History of right inguinal hernia repair (Acute) Family History (Updated 03/12/20 @ 13:39 by Dorothea Nixon) Mother Colon cancer Breast cancer Hypertension Father Colon cancer Social History (Updated 03/12/20 @ 14:[address] Jason Madrigal MD) Smoking Status: Never smoker HPI HPI HPI: GURDEEP PIERRE, is a 79 F who presents to the office today for surgical consultation regarding abdominal pain and diarrhea and abnormal CT imaging. The patient is referred by Dr. Gia Grover and a written copy my surgical consult and recommendations will be returned to her. 79-year-old female. She had acute onset of abdominal pain on March 09. She presented to the emergency room. A noncontrasted CT scan of the abdomen was obtained. This was nondiagnostic however there was a question eric as to whether contrast should be administered. Therefore yesterday Dr. Gia Grover obtained a contrasted CT. That suggests thickening of the gastric chicas thickening of loops of small bowel thickening of colonic wall. Clinical correlation was felt to be indicated. Recommendation for possible upper and lower endoscopy. It is of note that on March 09, 2020 her white blood cell count was 11.8 with a hemoglobin 14.1 hematocrit 40.8 platelet count 188,000. 84% neutrophils. 8% lymphocytes. BUN was 24 and creatinine was 0.9. Lactic acid level was 1.8. Total bilirubin was 1.1. AST 23. ALT 26. Alkaline phosphatase 64. Lipase 58. A definitive diagnosis was not provided. She was discharged on dicyclomine and Zofran. The patient did not take the Zofran because although she was nauseated instructions said to take with food. She has had intractable diarrhea that started on Monday. She has essentially had nothing to eat yesterday nor today. Minimal sips of water. Laboratory on March 09, 2020 would suggest dehydration. On clinical evaluation today that would appear to have deepened. March 14, [address] Sami Tejeda she had a colonoscopy because of generalized abdominal pain. The entire exam was normal. On November 17, 2011 she had a upper GI endoscopy. That was because of an abnormal CT scan suggesting abnormal biliary imaging. That examination states that the ampulla was well visualized and that there was no pancreatic mass. No stones or sludge. The patient did have a few benign fundic gland polyps. [facility] Imaging Services [address] [place] [address] Abdomen/Pel W ORAL Cont Only MR#: [id number] Name: GURDEEP PIERRE #:[id number] : [id number] From: Noah Porras MD PCP:Dr. Gia Grover, DO Status:REG CLI Study:Abdomen/Pel W ORAL Cont Only Date of Exam:03/10/20 Exam#[id number] Ordering Dr: Gia Grover DO STUDY: CT ABDOMEN AND PELVIS WITHOUT CONTRAST REASON FOR EXAM: Female, 79 years old. Abdominal PAIN-RLQ. RADIATION DOSAGE (If Supplied By Facility): CTDIvol = ( 6.11 ) mGy, DLP = ( 274.70 ) mGycm TECHNIQUE: Transaxial images were obtained from the dome of the diaphragm to the symphysis pubis without oral contrast, and without intravenous contrast. Sagittal and coronal images were reconstructed. Individualized dose optimization techniques were used for this CT. COMPARISON: 03/09/2020. FINDINGS: Oral contrast was given and shows that there are no dilated loops of bowel or evidence for obstruction. There is suggestion of stomach wall thickening which can be further evaluated with endoscopy. Loops of bowel in the pelvis also suggest wall thickening. There is probable thickening of the cecum and terminal ileum. Findings suggest nonspecific enterocolitis. Normal appendix. No other changes or findings since yesterday''s study. No gross acute abnormality seen of the liver, gallbladder, pancreas, spleen or kidneys. CT/Abdomen/Pel W ORAL Cont Only IMPRESSION: After the administration of oral contrast, there is strong suggestion of stomach wall thickening along with numerous loops of thickened small bowel and large bowel. Correlate clinically and consider upper endoscopy and colonoscopy. Electronically Signed: Noah Porras MD at 18:23 EST , Service support , HPI HPI HPI: GURDEEP PIERRE, is a 79 F who presents to the office today for Exam Const General: cooperative, frail appearing, ill appearing Nutritional Appearance: underweight Orientation: alert, awake, oriented x3 HENMT Head: normal to inspection Eyes General: appearance normal, both eyes and all related structures Neck Other: Supple, atrophic Resp Effort & Inspection: normal respiratory effort Auscultation: clear to auscultation bilaterally Cardio Other: Tachycardia noted, irregular heartbeat GI Other: Infrequent bowel sounds, soft, mild tenderness palpation right mid abdomen lower quadrant, fullness noted. Not a distinct mass. No rebound or guarding. No obvious inguinal defect. No gross hepatosplenomegaly Musc Cervical Spine: normal cervical lordosis Skin General: no rashes or lesions noted Neuro Cognition: normal cognition Extrem General: no calf tenderness Psych Affect: normal affect Assessment & Plan Problems 1. Generalized abdominal pain R10.84 2. Diarrhea, unspecified type R19.7 3. Tachycardia R00.0 4. Dehydration E86.0 5. Enterocolitis K52.9 Plan I have had an opportunity to discuss this patient's care with . At this point I believe that the patient is very frail and requires hospitalization. My initial diagnosis is enterocolitis, possible foodborne illness possible viral. I believe that she is likely significantly dehydrated. She is tachycardic. She cannot tolerate an urgent upper or lower endoscopy at this moment. I believe that she needs to be fluid resuscitated. Secondarily stool needs to be obtained for routine culture sensitivity C. difficile analysis. She likely should be tested for COVID-19. Pending her progress and ongoing evaluation I could consider performing combined upper and lower endoscopy on March 16. I will follow with you. I very much appreciate hospitalist assistance with admission. As the patient is being admitted I have will utilize this as my admission consultation I will continue to follow her throughout her stay. Copy: Dr. Gia Madrigal M.D., F.A.C.S. Orders Orders: Colonoscopy Today EGD Today Coding Level of Care Code Attention Battery Engineer Diagnoses Generalized abdominal pain R10.84 Abdominal location: generalized Diarrhea, unspecified type R19.7 Diarrhea type: unspecified type Tachycardia R00.0 Dehydration E86.0 Enterocolitis K52.9 Comment Admission consult to be submitted
[2020-03-12] MEDS: 0.9% Saline Lock 10 ML Syringe IV ×2 (15:35→16:45)
--- NOTE | 2020-03-12 16:08 | HP.PCM_ITS ---
Problem List (1) Enterocolitis Status: Acute (2) Dehydration Status: Acute (3) Tachycardia Status: Acute (4) Diarrhea Status: Acute Qualifiers: (5) Abdominal pain Status: Acute Qualifiers: History of Present Illness Date of Admission: 03/12/20 Chief Complaint: abdominal pain The patient is a 79 year old F presents with abdominal pain, diarrhea. Symptoms began on the fourth and have steadily gotten worse. Patient presented to the emergency room on the fourth and had a CAT scan that showed no acute process and eventually sent home. Patient had a repeat CAT scan with contrast that showed inflammation of the stomach small bowel and large intestine. Patient was referred over to Dr. Madrigal endoscopy. Evaluated the patient and reviewed the imaging and felt that medical treatment was most appropriate at this time rather than emergent endoscopy and contacted the hospitalist service for admission. Patient was directly admitted from his office to the hospital. Patient has never had anything like this before. Patient denies any sick contacts nor any Covid contacts. Patient's is at bedside and he denies any similar symptoms. [] Past Medical History Medical History: Medical History (Last Reviewed 03/12/20 @ 16:[address] Manohar Dupree, DO) Enterocolitis (Acute) K52.9 Dehydration (Acute) E86.0 Tachycardia (Acute) R00.0 Diarrhea (Acute) R19.7 Abdominal pain (Acute) R10.9 Atherosclerosis I70.90 Cardiac arrhythmia I49.9 Osteoarthritis M19.90 Small vessel disease, cerebrovascular I67.9 Syncope R55 Allergies No Known Allergies Allergy (Verified 03/12/20 15:03) Home Medications: Ambulatory Orders Medication Instructions Recorded Aspirin [Aspirin, Baby] 1 tab PO DAILY 03/09/20 Ondansetron [Zofran Odt] 4 mg PO Q8H PRN PRN #10 tab 03/09/20 Calcium Carbonate [Calcium] 03/12/20 Dicyclomine HCl [Bentyl] 20 mg PO TIDAC PRN 03/12/20 Eglon-3S/Dha/Epa/Fish Oil [Fish 1 ea PO DAILY 03/12/20 Oil 1,000 mg Softgel] cholecalciferol (vitamin D3) 25 50 mcg PO DAILY cap 03/12/20 mcg (1,000 unit) capsule omega-3 fatty acids 1,000 mg 1,000 mg PO DAILY 03/12/20 capsule Surgical History: Surgical History (Last Reviewed 03/12/20 @ 16:[address] Manohar Dupree DO) History of colonoscopy Z98.890 History of esophagogastroduodenoscopy (EGD) Z98.890 History of right inguinal hernia repair Z98.890, Z87.19 Surgical History: noncontributory Smoking Status: Never smoker Alcohol: None Drugs: None - *Family History Maternal Family History: Family History (Last Reviewed 03/12/20 @ 16:[address] Manohar Dupree DO) Mother Colon cancer Breast cancer Hypertension Father Colon cancer Review of Systems Constitutional: Reports: Anorexia. Denies: Chills, Fever, Malaise, Weakness Eyes: Denies: Blurred vision, Double vision HEENT: Denies: Head Aches, Sinus Congestion, Sinus Drainage Cardiovascular: Denies: Chest Pain, Palpitations Respiratory: Denies: Cough, Shortness of breath at rest, Sputum production Gastrointestinal: Reports: Abdominal Pain, Diarrhea. Denies: Hematochezia, Melena Genitourinary: Denies: Dysuria Skin: Denies: Rash, Wounds Hematologic/ Lymphatic: Denies: Easy Bruising, Easy Bleeding, Hx of blood clot Comment: All review of systems were negative except as mentioned above in the history of present illness and the other review of systems. VTE Information - Inpt Only VTE Present on Admission: No VTE Mechan Device Prophylaxis: None VTE Pharm Prophylaxis ordered?: Yes Patient Problems: Active and Suspected Problems (Last Updated 03/12/20 @ 13:38 by Dorothea Nixon) Enterocolitis (Acute) Dehydration (Acute) Tachycardia (Acute) Diarrhea (Acute) Abdominal pain (Acute) - Physical Exam Vitals/I&O's: Weight: 54.204 kg Body Mass Index (BMI) 20.5 General: Alert, Cooperative, No apparent distress, Well developed, Well nourished HEENT: Atraumatic, Normocephalic Oral: Moist Mucosa, No Gingival or Mucosal Lesions/ Ulcerations Neck: No Nodes, Thyroid Normal Size and Texture Lungs: Clear to auscultation, Normal air movement, No rhonchi, No wheeze, No rales Cardiovascular: Regular rate, Regular Rhythm, Normal S1, Normal S2, No murmurs Abdomen: Bowel Sounds Present, No Hepato-splenomegaly, Tender - Diffuse, - - Slight abdominal distention Extremities: No edema, No Calf Tenderness Skin: No rashes, No breakdown Musculoskeletal: No Tenderness to Palpation of Joints or Extremities, No Muscle Wasting Neurological: Muscle tone normal, - - No clonus Psych/Mental Status: Normal Affect, Appropriate Current Medications Acetaminophen (Acetaminophen 325 Mg Tablet) 650 mg PO Q6H PRN PRN PRN Reason: Pain Score 1-10/Temp > 100.7 F Sodium Chloride () 250 mls @ 15 mls/hr IV .[id number] PRN PRN Reason: Saline Flush Sodium Chloride () 250 mls @ 15 mls/hr IV .[id number] PRN PRN Reason: Additional IVPB Infusion Sodium Chloride () 1,000 mls @ 150 mls/hr IV .Q6H40M [facility] Piperacillin Sod/Tazobactam (Sod 3.375 gm/ Sodium Chloride) 50 mls @ 12.5 mls/hr IV Q8 [facility] Morphine Sulfate (Morphine 2 Mg/Ml Syringe) 2 mg IV Q3H PRN PRN PRN Reason: breakthrough pain Ondansetron HCl (Ondansetron 4 Mg/2 Ml Vial) 4 mg IV Q8H PRN PRN PRN Reason: NAUSEA/VOMITING Oxycodone HCl (Oxycodone 5 Mg Tablet) 5 mg PO Q4H PRN PRN PRN Reason: Pain Score 4-5 Oxycodone HCl (Oxycodone 5 Mg Tablet) 10 mg PO Q4H PRN PRN PRN Reason: Pain Score 6-10 Pantoprazole Sodium (Pantoprazole Sodium 40 Mg Tablet) 40 mg PO DAILY [facility] Pantoprazole Sodium (Pantoprazole Sodium 40 Mg Tablet) 40 mg PO X1 ONE Stop: 03/12/20 16:06 Sodium Chloride (0.9% Saline Lock 10 Ml Syringe) 10 - 40 ml IV UD PRN PRN Reason: SALINE FLUSH Last Admin: 03/12/20 15:35 Dose: 10 ml Documented by: Assessment/Plan All Active Problems (Last Updated 03/12/20 @ 13:38 by Dorothea Nixon) Enterocolitis (Acute) Dehydration (Acute) Tachycardia (Acute) Diarrhea (Acute) Abdominal pain (Acute) 1. Enterocolitis: Unclear etiology at this time. Possibilities could include infectious versus ischemic. Unlikely to be inflammatory bowel disease as patient is never had any symptoms such as this before. Plan is supportive management with IV fluids, clear liquid diet, pain control, antiemetics and antibiotics. Will be using Pipracil/tazobactam. Check stool cultures for C. difficile as well as stool pathogen's. Dr. Madrigal will be on consult. No urgency for endoscopy at this time but may be considered early next week if patient still requiring hospitalization at that time. Given the concern that this could be possibly ischemic we will check a lactate though symptoms did begin 3 days ago. Patient's lactic acid was 1.8 when she presented initially. Stomach was also noted to be inflamed. Unclear this is related with what ever is causing the enterocolitis, benign finding versus gastritis. We will start the patient on p.o. PPI. 2. History of arrhythmia: Check EKG. 3. VTE prophylaxis with low molecular weight heparin. Inpatient E&M: 02746 Init Hosp L3
--- NOTE | 2020-03-12 16:11 | EKG12_ITS ---
Test Reason : Blood Pressure : / mmHG Vent. Rate : 110 BPM Atrial Rate : 110 BPM P-R Int : 148 ms QRS Dur : 082 ms QT Int : 348 ms P-R-T Axes : 075 032 057 degrees QTc Int : 470 ms Sinus tachycardia Otherwise normal ECG Confirmed by DANGELO BABCOCK, LAURIE ([id number]), legal editor MARCE GALVEZ ([id number]) on 03/16/2020 9:56:01 AM Referred By: ITALIA Confirmed By:LAURIE PIERSON MD
[2020-03-12] MEDS: 0.9% Normal Saline 1,000 ML 150 ML IV ×2 (16:38→23:27)
[2020-03-12 16:45] LABS: Absolute Lymphocyte Count 0.65 X10^3/uL (0.83-4.51); Absolute Neutrophil Count 9.9 X10^3/uL (2.0-7.7); Basophil# 0.03 X10^3/uL; Basophil% 0.3 % (0-1); Eosinophil# 0.16 X10^3/uL; Eosinophils% 1.4 % (0-5); Hematocrit 39.2 % (37-47); Hemoglobin 12.7 g/dL (12.0-15.0); Lymphocyte # 0.65 X10^3/ul (4.0); Lymphocyte % 5.7 % (19-41); Mean Corp Hgb Conc 32.4 g/dL (32-36); Mean Corpuscular Hgb 30.2 pg (27.0-32.0); Mean Corpuscular Volume 93.1 fL (81-99); Mean Platelet Vol. 9.7 fl (6.2-12.0); Monocyte# 0.53 X10^3/uL; Monocyte% 4.7 % (0-10); NRBC Flagged by Analyzer 0 % (0-5); Neutrophil # 9.87 X10^3/uL (2.7-7.7); Neutrophil % 87.3 % (47-70); Platelet Count 212 K/mm3 (150-450); RBC Distribution Width CV 13.2 % (11.6-14.6); RBC Distribution Width SD 44.9 fl (35.1-43.9); Red Blood Count 4.21 M/mm3 (4.2-5.4); White Blood Count 11.3 K/mm3 (4.4-11.0)
[2020-03-12 16:49] VITALS: BP 121/60; PULSE 73; RESP 18; TEMP 37; O2SAT 100
[2020-03-12 17:03] LABS: ALB/GLOB Ratio 0.7 RATIO (0.9-2.4); AST(SGOT) 18 U/L (15-37); Alanine Aminotransfer ALT/SGPT 20 U/L (13-56); Albumin, Serum 3.2 g/dL (3.2-5.0); Alkaline Phosphatase 98 U/L (45-117); Anion Gap 7 (5-15); BUN 37 mg/dL (7-18); BUN/Creat Ratio 41.5 RATIO (10-20); Chloride 106 mmol/L (98-107); Creatinine, Serum 0.89 mg/dL (0.55-1.02); EST Glomerular Filtration Rate 65 mL/min (>60); Est Glom Filt Rate - Afr Amer 79 mL/min (>60); Estimated Creatinine Clearance 44.58 ml/min; Globulin 4.6 g/dL (2.2-4.2); Glucose 88 mg/dL (74-106); Potassium 3.7 mmol/L (3.5-5.1); Protein, Total 7.8 g/dL (6.4-8.2); Sodium Level 139 mmol/L (136-145)
[2020-03-12 17:24] LABS: Lactic Acid 1.2 mmol/L (0.4-1.9)
[2020-03-12] MEDS: Pantoprazole Sodium 40 MG Tablet PO (17:29)
[2020-03-12 17:30] VITALS: PULSE 85
--- NOTE | 2020-03-12 17:52 | NURSING ---
Pt put in Enteric Contact precautions at this time. Educated on what that means. Pt is aware that we need a sample of stool for CDIFF and also urine for a urine culture.
[2020-03-12 19:59] VITALS: PULSE 84
[2020-03-12 20:33] VITALS: BP 126/64; PULSE 60; RESP 14; TEMP 36.7; O2SAT 95
[2020-03-12 23:02] LABS: Bacteria 0 SEEN /hpf (None Seen); Mucous, Urine 0 SEEN /hpf (<or=2+); Red Blood Cells-Urine 0 SEEN /hpf (0-5); White Blood Cells 0 SEEN /hpf (0-5)
[2020-03-12 23:05] LABS: Color, Urine Yellow (Yellow); Glucose, Dipstick Normal (Normal); Leukocyte Esterase-Dipstick Negative /ul (Negative); Nitrite-Dipstick Negative (Negative); Occult Blood-Urine 10 /ul (Negative); Protein-Dipstick 100 mg/dl (Negative); Urine Bilirubin Dipstick Negative (Negative); Urine Clarity Clear (Clear); Urine Urobilinogen Normal (Normal)
[2020-03-12 23:09] LABS: Ketone-Dipstick 150 mg/dl (Negative)
[2020-03-12 23:12] LABS: Squamous Epithelial Cells - UA 0-5 SEEN /hpf (5-10)
[2020-03-12] MEDS: Acetaminophen 325 MG Tablet 650 MG PO (23:27)
[2020-03-12 23:35] VITALS: BP 135/67; PULSE 71; RESP 16; TEMP 37.2; O2SAT 95
[2020-03-13] VITALS (10 sets, daily range): BP systolic 111–132; BP diastolic 56–64; PULSE 65–100; RESP 16–18; TEMP 36.7–37.1; O2SAT 96–97; BMI 20.5
[2020-03-13] MEDS: oxyCODONE 5 MG Tablet PO ×2 (03:49→14:44)
[2020-03-13] MEDS: 0.9% Normal Saline 1,000 ML 150 ML IV ×3 (05:40→18:45)
[2020-03-13 05:57] LABS: Absolute Lymphocyte Count 0.76 X10^3/uL (0.83-4.51); Absolute Neutrophil Count 7.2 X10^3/uL (2.0-7.7); Basophil# 0.03 X10^3/uL; Basophil% 0.3 % (0-1); Eosinophil# 0.31 X10^3/uL; Eosinophils% 3.5 % (0-5); Lymphocyte # 0.76 X10^3/ul (4.0); Lymphocyte % 8.5 % (19-41); Mean Corp Hgb Conc 32.4 g/dL (32-36); Mean Corpuscular Hgb 29.9 pg (27.0-32.0); Mean Corpuscular Volume 92.4 fL (81-99); Mean Platelet Vol. 9.7 fl (6.2-12.0); Monocyte# 0.59 X10^3/uL; Monocyte% 6.6 % (0-10); NRBC Flagged by Analyzer 0 % (0-5); Neutrophil # 7.16 X10^3/uL (2.7-7.7); Neutrophil % 80.5 % (47-70); Platelet Count 188 K/mm3 (150-450); RBC Distribution Width CV 13.2 % (11.6-14.6); RBC Distribution Width SD 45.1 fl (35.1-43.9); Red Blood Count 3.68 M/mm3 (4.2-5.4); White Blood Count 8.9 K/mm3 (4.4-11.0)
--- NOTE | 2020-03-13 06:06 | PCM.PN.SRG ---
Patient Problems: Active and Suspected Problems (Last Reviewed 03/12/20 @ 16:[address] Manohar Dupree, DO) Enterocolitis (Acute) Dehydration (Acute) Tachycardia (Acute) Diarrhea (Acute) Abdominal pain (Acute) Subjective: Patient is feeling better however she is still having abdominal pain. She required oral pain medication. She is still having significant diarrhea. She feels that she is urinating some better. C. difficile negative - Physical Exam Vitals/I&O's: Vital Signs Temp Pulse Resp BP Pulse Ox 98.1 F 76 16 126/56 H 97 03/13/20 05:38 03/13/20 05:38 03/13/20 05:38 03/13/20 05:38 03/13/20 05:38 Oxygen Delivery Method Room Air Weight: 119 lb 8 oz Body Mass Index (BMI) 20.5 Intake and Output for Last 24 Hours 03/11/20 03/12/20 03/13/20 23:59 23:59 23:59 Intake Total 1050 / 1300 1382.5 / 1382.5 Balance 1050 / 1300 1382.5 / 1382.5 Lungs: Clear to auscultation, Normal air movement Abdomen: Soft, Hypoactive Bowel Sounds, - - Mild tenderness right mid abdomen Microbiology Past 72 Hours 03/12/20 19:00 Stool C. difficile DNA Amplification - Final Laboratory Results 03/12/20 16:28: WBC 11.3 H, RBC 4.21, Hgb 12.7, Hct 39.2, MCV 93.1, MCH 30.2, MCHC 32.4 D, RDW Std Deviation 44.9 H, RDW Coeff of Thee 13.2, Plt Count 212, MPV 9.7, Immature Gran % (Auto) 0.600, Neut % (Auto) 87.3 H, Lymph % (Auto) 5.7 L, [place] % (Auto) 4.7, Eos % (Auto) 1.4, Baso % (Auto) 0.3, Absolute Neuts (auto) 9.9 H, Absolute Lymphs (auto) 0.65 L, Nucleated RBC % 0 03/12/20 16:28: Sodium 139, Potassium 3.7, Chloride 106, Carbon Dioxide 26.0, Anion Gap 7, BUN 37 H, Creatinine 0.89, Estim Creat Clear Calc 44.58, Est GFR (MDRD) Af Amer 79, Est GFR (MDRD) Non-Af 65, BUN/Creatinine Ratio 41.5 H, Glucose 88, Calcium 9.0, Total Bilirubin 0.90, AST 18, ALT 20, Alkaline Phosphatase 98, Total Protein 7.8, Albumin 3.2, Globulin 4.6 H, Albumin/Globulin Ratio 0.7 L 03/12/20 16:28: Lactic Acid 1.2 03/12/20 21:47: Urine Color Yellow, Urine Clarity Clear, Urine pH 6.0, Ur Specific [place] 1.020, Urine Protein 100 H, Urine Glucose (UA) Normal, Urine Ketones 150 H, Urine Occult Blood 10 H, Urine Nitrite Negative, Urine Bilirubin Negative, Urine Urobilinogen Normal, Ur Leukocyte Esterase Negative, Urine RBC 0 SEEN, Urine WBC 0 SEEN, Ur Squamous Epith Cells 0-5 SEEN, Urine Bacteria 0 SEEN, Urine Mucus 0 SEEN 03/13/20 05:30: WBC 8.9, RBC 3.68 L, Hgb 11.0 L, Hct 34.0 L, MCV 92.4, MCH 29.9, MCHC 32.4, RDW Std Deviation 45.1 H, RDW Coeff of Thee 13.2, Plt Count 188, MPV 9.7, Immature Gran % (Auto) 0.600, Neut % (Auto) 80.5 H, Lymph % (Auto) 8.5 L, [place] % (Auto) 6.6, Eos % (Auto) 3.5, Baso % (Auto) 0.3, Absolute Neuts (auto) 7.2, Absolute Lymphs (auto) 0.76 L, Nucleated RBC % 0 03/13/20 05:30: Sodium Pending, Potassium Pending, Chloride Pending, Carbon Dioxide Pending, Anion Gap Pending, BUN Pending, Creatinine Pending, Est GFR (MDRD) Af Amer Pending, Est GFR (MDRD) Non-Af Pending, BUN/Creatinine Ratio Pending, Glucose Pending, Calcium Pending, Total Bilirubin Pending, AST Pending, ALT Pending, Alkaline Phosphatase Pending, Total Protein Pending, Albumin Pending Current Medications Acetaminophen (Acetaminophen 325 Mg Tablet) 650 mg PO Q6H PRN PRN PRN Reason: Pain Score 1-10/Temp > 100.7 F Last Admin: 03/12/20 23:27 Dose: 650 mg Documented by: Sodium Chloride () 250 mls @ 15 mls/hr IV .[id number] PRN PRN Reason: Saline Flush Sodium Chloride () 250 mls @ 15 mls/hr IV .[id number] PRN PRN Reason: Additional IVPB Infusion Sodium Chloride () 1,000 mls @ 150 mls/hr IV .Q6H40M [facility] Last Admin: 03/13/20 05:40 Dose: 150 mls/hr Documented by: Piperacillin Sod/Tazobactam (Sod 3.375 gm/ Sodium Chloride) 50 mls @ 12.5 mls/hr IV Q8 [facility] Last Admin: 03/13/20 05:40 Dose: 12.5 mls/hr Documented by: Morphine Sulfate (Morphine 2 Mg/Ml Syringe) 2 mg IV Q3H PRN PRN PRN Reason: breakthrough pain 4-10 Nutritional Formula (Lactose Free) (Ensure Clear 120 Ml Liquid) 120 ml PO 4X/DAY [facility] Last Admin: 03/12/20 21:29 Dose: Not Given Documented by: Ondansetron HCl (Ondansetron 4 Mg/2 Ml Vial) 4 mg IV Q8H PRN PRN PRN Reason: NAUSEA/VOMITING Oxycodone HCl (Oxycodone 5 Mg Tablet) 5 mg PO Q4H PRN PRN PRN Reason: Pain Score 4-5 Last Admin: 03/13/20 03:49 Dose: 5 mg Documented by: Oxycodone HCl (Oxycodone 5 Mg Tablet) 10 mg PO Q4H PRN PRN PRN Reason: Pain Score 6-10 Pantoprazole Sodium (Pantoprazole Sodium 40 Mg Tablet) 40 mg PO DAILY [facility] Sodium Chloride (0.9% Saline Lock 10 Ml Syringe) 10 - 40 ml IV UD PRN PRN Reason: SALINE FLUSH Last Admin: 03/12/20 16:45 Dose: 10 ml Documented by: Medical Necessity - Tobacco Use Smoking Status: Never smoker Assessment/Plan All Active Problems (Last Reviewed 03/12/20 @ 16:[address] Manohar Dupree, DO) Enterocolitis (Acute) Dehydration (Acute) Tachycardia (Acute) Diarrhea (Acute) Abdominal pain (Acute) Vital signs appear to be stable. She is clinically feeling improved. C. difficile negative. White blood cell count within the normal range with slight shift. Abdominal pain however improved still persists and the diarrhea still persists. BMP is still pending. Ongoing medical care. I will discuss ongoing interventions with the hospitalist. Currently I have rescheduled on Monday morning to undergo combined esophagogastroduodenoscopy and colonoscopy. She is aware of the technique, benefit, risk, alternatives. I will need to coordinate care as to whether she will still be an inpatient at that time or whether we will need to achieve this as an outpatient. I will advance her diet to a full liquid diet allowing her an option to pick and choose although admittedly she is still very hesitant because of the ongoing abdominal pain. Jason Madrigal M.D., F.A.C.S.
[2020-03-13 06:28] LABS: ALB/GLOB Ratio 0.7 RATIO (0.9-2.4); AST(SGOT) 15 U/L (15-37); Alanine Aminotransfer ALT/SGPT 14 U/L (13-56); Albumin, Serum 2.5 g/dL (3.2-5.0); Alkaline Phosphatase 75 U/L (45-117); Anion Gap 7 (5-15); BUN 30 mg/dL (7-18); BUN/Creat Ratio 41.3 RATIO (10-20); Calcium,Total 7.5 mg/dL (8.5-10.1); Chloride 111 mmol/L (98-107); Creatinine, Serum 0.73 mg/dL (0.55-1.02); EST Glomerular Filtration Rate 82 mL/min (>60); Est Glom Filt Rate - Afr Amer 100 mL/min (>60); Estimated Creatinine Clearance 39.67 ml/min; Globulin 3.5 g/dL (2.2-4.2); Glucose 86 mg/dL (74-106); Potassium 3.5 mmol/L (3.5-5.1); Sodium Level 140 mmol/L (136-145)
[2020-03-13] MEDS: Pantoprazole Sodium 40 MG Tablet PO (11:06)
--- NOTE | 2020-03-13 11:24 | NURSING ---
Cdiff negative and enteric panel is negative. This nurse will take pt out of isolation precautions.
--- NOTE | 2020-03-13 11:31 | CASEMGMT ---
RN BUCK Face to Face with patient for initial transition planning/care coordination assessment. RN CM introduced self and role at [facility]. Patient lying in bed, alert and oriented. Patient willing to participate in assessment and is able to answer all questions appropriately. Care providers, pharmacy, and demographics verified. Patient wishes to discharge home, denies need for home health at this time. Patient states she has no further needs or concerns at this time. CM to follow for discharge planning needs that may arise. PCP: Reilly Specialists: Rohan, surgeon; Robbie, oncologist Preferred [facility]acy: [facility] Insurance: [employer] [facility] Prescription Benefit: yes Living Will/HPOA: yes, Rodolfo Purcell LNOK: Living Arrangements: Patient lives with in a 2 story home with bed and bath on first floor. Patient has 2-3 steps to enter the home. Patient states she is independent at home Transportation: self, , friend DME/HHC: Patient denies current DME, no previous HHC. Disposition Plan: Patient to discharge home with family support and follow-up plans in place. Nena HOUGH, RN, CM
[2020-03-13] MEDS: Ensure Clear 120 ML Liquid PO (14:26)
--- NOTE | 2020-03-13 15:08 | PCM.NTREPORT ---
Nutrition Therapy Report - History Nutrition Services has been consulted to:: Manage nutrient details of diet order Current diet / nutrition support order:: Full liquids; 120 ml ensure clear 4 times per day w/ medpass - Anthropometric Measurements Height:: 5 ft 4 in Weight:: 54.2 kg Body Mass Index (BMI):: 20.5 - Relevant Labs Relevant Labs:: WBC 11.3 K/mm3 (4.4-11.0) H 03/12/20 16:28 RBC 3.68 M/mm3 (4.2-5.4) L 03/13/20 05:30 Hgb 11.0 g/dL (12.0-15.0) L 03/13/20 05:30 Hct 34.0 % (37-47) L 03/13/20 05:30 RDW Std Deviation 45.1 fl (35.1-43.9) H 03/13/20 05:30 Neut % (Auto) 80.5 % (47-70) H 03/13/20 05:30 Lymph % (Auto) 8.5 % (19-41) L 03/13/20 05:30 Absolute Neuts (auto) 9.9 X10^3/uL (2.0-7.7) H 03/12/20 16:28 Absolute Lymphs (auto) 0.76 X10^3/uL (0.83-4.51) L 03/13/20 05:30 Chloride 111 mmol/L (98-107) H 03/13/20 05:30 BUN 30 mg/dL (7-18) H 03/13/20 05:30 BUN/Creatinine Ratio 41.3 RATIO (10-20) H 03/13/20 05:30 Calcium 7.5 mg/dL (8.5-10.1) L 03/13/20 05:30 Total Protein 6.0 g/dL (6.4-8.2) L 03/13/20 05:30 Albumin 2.5 g/dL (3.2-5.0) L 03/13/20 05:30 Globulin 4.6 g/dL (2.2-4.2) H 03/12/20 16:28 Albumin/Globulin Ratio 0.7 RATIO (0.9-2.4) L 03/13/20 05:30 - Assessment Food / Nutrition-Related History:: Pt reports poor PO since the abd pain started on monday of this week x 4-5 days ago; 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 Pt reports usually good deepti prior to this illness. Has never tried ensure products and does not like ensure clear so, will d/c ensure clear with medpass and try vanilla ensure enlive with meals as tolerated. Plans for Monday morning to undergo combined esophagogastroduodenoscopy and colonoscopy. Encouraged pt to take PO as tolerated and just sip on ensure to prevent further wt loss as tolerated. - Nutrition Diagnosis Problem / Etiology / Signs & Symptoms (PES):: Severe pro/waqas malnutrition in the context of acute illness related to inability to take adequate PO due to abd pain/altered GI function as evidenced by~4% wt loss x past 4-5 days, less than 50% estimated nutrition needs x 5 days and continues with clear/full liquids as tolerated. Evidence of Malnutrition Exists:: Yes Severe PCM:: Acute Illness - Nutrition Intervention Nutrition Prescription:: Estimated nutrition needs~[id number] kcal and ~60-70 gm protein/day - Food / Nutrient Delivery Interventions Summary of nutrition intervention:: Will change 120ml ensure clear w/ medpass 4 times/day to 240ml vanilla ensure enlive BID w/ meals as tolerated; encouraged full liquids as ordered. Advance diet as tolerated to transitional as medically able. Nutrition education provided?: Yes - MNT Monitoring Further MNT monitoring and evaluation required?: Yes MNT Follow-up in:: 3-5 days
--- NOTE | 2020-03-13 16:37 | PN_ITS ---
Patient Problems: Active and Suspected Problems (Last Reviewed 03/12/20 @ 16:[address] Manohar Dupree, DO) Enterocolitis (Acute) Dehydration (Acute) Tachycardia (Acute) Diarrhea (Acute) Abdominal pain (Acute) Subjective: Patient was seen and examined today, she is having less abdominal discomfort but still has some abdominal distention. Her white blood cell count is normal, stool for enteric pathogens was negative. Patient is having formed stools today. Patient is afebrile. - Physical Exam Vitals/I&O's: Vital Signs Temp Pulse Resp BP Pulse Ox 98.5 F 81 18 126/64 H 96 03/13/20 14:32 03/13/20 16:00 03/13/20 14:32 03/13/20 14:32 03/13/20 14:32 Oxygen Delivery Method Room Air Weight: 54.2 kg Body Mass Index (BMI) 20.5 Intake and Output for Last 24 Hours 03/11/20 03/12/20 03/13/20 23:59 23:59 23:59 Intake Total 1050 / 1300 2733.5 / 2733.5 Output Total 200 / 200 Balance 1050 / 1300 2533.5 / 2533.5 General: Alert, Oriented x3, Cooperative, No apparent distress, Well developed, Well nourished HEENT: Atraumatic, PERRLA, EOMI, Normocephalic Oral: Moist Mucosa Neck: Supple, No JVD, Trachea Midline, Thyroid Normal Size and Texture Lungs: Clear to auscultation, Normal air movement, No rhonchi, No wheeze, No rales Cardiovascular: Regular rate, Regular Rhythm, Normal S1, Normal S2, No murmurs, PMI Normal, No rub noted, No Gallop Abdomen: Bowel Sounds Present, Soft, Tender - Mild diffuse abdominal tenderness is noted Extremities: No clubbing, No cyanosis, No edema, Capillary Refill Less than 3 Seconds Skin: No rashes, No breakdown Musculoskeletal: No Tenderness to Palpation of Joints or Extremities Neurological: Cranial nerves II-XII grossly intact, Neuro grossly intact, Sensory exam intact to light touch and pain Psych/Mental Status: Normal Affect, Appropriate, Alert and oriented to time, place, person, mood and affect Microbiology Past 72 Hours 03/12/20 19:00 Stool Enteric Bacteriology - Final 03/12/20 19:00 Stool C. difficile DNA Amplification - Final Laboratory Results 03/12/20 16:28: WBC 11.3 H, RBC 4.21, Hgb 12.7, Hct 39.2, MCV 93.1, MCH 30.2, MCHC 32.4 D, RDW Std Deviation 44.9 H, RDW Coeff of Thee 13.2, Plt Count 212, MPV 9.7, Immature Gran % (Auto) 0.600, Neut % (Auto) 87.3 H, Lymph % (Auto) 5.7 L, [place] % (Auto) 4.7, Eos % (Auto) 1.4, Baso % (Auto) 0.3, Absolute Neuts (auto) 9.9 H, Absolute Lymphs (auto) 0.65 L, Nucleated RBC % 0 03/12/20 16:28: Sodium 139, Potassium 3.7, Chloride 106, Carbon Dioxide 26.0, Anion Gap 7, BUN 37 H, Creatinine 0.89, Estim Creat Clear Calc 44.58, Est GFR (MDRD) Af Amer 79, Est GFR (MDRD) Non-Af 65, BUN/Creatinine Ratio 41.5 H, Glucose 88, Calcium 9.0, Total Bilirubin 0.90, AST 18, ALT 20, Alkaline Phosphatase 98, Total Protein 7.8, Albumin 3.2, Globulin 4.6 H, Albumin/Globulin Ratio 0.7 L 03/12/20 16:28: Lactic Acid 1.2 03/12/20 21:47: Urine Color Yellow, Urine Clarity Clear, Urine pH 6.0, Ur Specific Buna 1.020, Urine Protein 100 H, Urine Glucose (UA) Normal, Urine Ketones 150 H, Urine Occult Blood 10 H, Urine Nitrite Negative, Urine Bilirubin Negative, Urine Urobilinogen Normal, Ur Leukocyte Esterase Negative, Urine RBC 0 SEEN, Urine WBC 0 SEEN, Ur Squamous Epith Cells 0-5 SEEN, Urine Bacteria 0 SEEN, Urine Mucus 0 SEEN 03/13/20 05:30: WBC 8.9, RBC 3.68 L, Hgb 11.0 L, Hct 34.0 L, MCV 92.4, MCH 29.9, MCHC 32.4, RDW Std Deviation 45.1 H, RDW Coeff of Thee 13.2, Plt Count 188, MPV 9.7, Immature Gran % (Auto) 0.600, Neut % (Auto) 80.5 H, Lymph % (Auto) 8.5 L, [place] % (Auto) 6.6, Eos % (Auto) 3.5, Baso % (Auto) 0.3, Absolute Neuts (auto) 7.2, Absolute Lymphs (auto) 0.76 L, Nucleated RBC % 0 03/13/20 05:30: Sodium 140, Potassium 3.5, Chloride 111 H, Carbon Dioxide 22.0, Anion Gap 7, BUN 30 H, Creatinine 0.73, Estim Creat Clear Calc 39.67, Est GFR (MDRD) Af Amer 100, Est GFR (MDRD) Non-Af 82, BUN/Creatinine Ratio 41.3 H, Glucose 86, Calcium 7.5 L, Total Bilirubin 0.70, AST 15, ALT 14, Alkaline Phosphatase 75, Total Protein 6.0 L, Albumin 2.5 L, Globulin 3.5, Albumin/Globulin Ratio 0.7 L Current Medications Acetaminophen (Acetaminophen 325 Mg Tablet) 650 mg PO Q6H PRN PRN PRN Reason: Pain Score 1-10/Temp > 100.7 F Last Admin: 03/12/20 23:27 Dose: 650 mg Documented by: Sodium Chloride () 250 mls @ 15 mls/hr IV .[id number] PRN PRN Reason: Saline Flush Last Infusion: 03/13/20 15:10 Dose: 0 mls/hr Documented by: Sodium Chloride () 250 mls @ 15 mls/hr IV .[id number] PRN PRN Reason: Additional IVPB Infusion Sodium Chloride () 1,000 mls @ 150 mls/hr IV .Q6H40M [facility] Last Admin: 03/13/20 12:22 Dose: 150 mls/hr Documented by: Piperacillin Sod/Tazobactam (Sod 3.375 gm/ Sodium Chloride) 50 mls @ 12.5 mls/hr IV Q8 [facility] Last Admin: 03/13/20 14:26 Dose: 12.5 mls/hr Documented by: Morphine Sulfate (Morphine 2 Mg/Ml Syringe) 2 mg IV Q3H PRN PRN PRN Reason: breakthrough pain 4-10 Ondansetron HCl (Ondansetron 4 Mg/2 Ml Vial) 4 mg IV Q8H PRN PRN PRN Reason: NAUSEA/VOMITING Oxycodone HCl (Oxycodone 5 Mg Tablet) 5 mg PO Q4H PRN PRN PRN Reason: Pain Score 4-5 Last Admin: 03/13/20 14:44 Dose: 5 mg Documented by: Oxycodone HCl (Oxycodone 5 Mg Tablet) 10 mg PO Q4H PRN PRN PRN Reason: Pain Score 6-10 Pantoprazole Sodium (Pantoprazole Sodium 40 Mg Tablet) 40 mg PO DAILY [facility] Last Admin: 03/13/20 11:06 Dose: 40 mg Documented by: Sodium Chloride (0.9% Saline Lock 10 Ml Syringe) 10 - 40 ml IV UD PRN PRN Reason: SALINE FLUSH Last Admin: 03/12/20 16:45 Dose: 10 ml Documented by: Medical Necessity - Tobacco Use Smoking Status: Never smoker Assessment/Plan All Active Problems (Last Reviewed 03/12/20 @ 16:[address] Manohar Dupree, DO) Enterocolitis (Acute) Dehydration (Acute) Tachycardia (Acute) Diarrhea (Acute) Abdominal pain (Acute) #1 enterocolitis-etiology unclear, the plan is for the patient undergo an upper and lower endoscopy on 03/16/2020. Patient will remain on IV antibiotics at this time Inpatient E&M: [id number] [facility] Hosp L2
[2020-03-14] VITALS (11 sets, daily range): BP systolic 122–143; BP diastolic 57–74; PULSE 60–80; RESP 15–18; TEMP 36.7–37.4; O2SAT 93–97
--- NOTE | 2020-03-14 00:21 | NURSING ---
2345 pt up to ambulate 2 large laps of hallway at this time. x1 assist, pt tolerated well and assisted back to bed
--- NOTE | 2020-03-14 00:31 | PCS.PANDOC ---
PANDEMIC DOCUMENTATION INITIATED: Date: 03/12/20 Time: 1600
[2020-03-14] MEDS: 0.9% Normal Saline 1,000 ML 150 ML IV ×4 (01:13→20:13)
[2020-03-14] MEDS: Acetaminophen 325 MG Tablet 650 MG PO ×2 (01:56→20:10)
--- NOTE | 2020-03-14 06:02 | NURSING ---
pt ambulated x2 laps in halls with this RN at this time, tolerated well
--- NOTE | 2020-03-14 07:39 | PN.SURG_ITS ---
Patient Problems: Active and Suspected Problems (Last Reviewed 03/12/20 @ 16:[address] Manohar Dupree, DO) Enterocolitis (Acute) Dehydration (Acute) Tachycardia (Acute) Diarrhea (Acute) Abdominal pain (Acute) Subjective: Patient states she was having diarrhea yesterday, states she only had a little bit today. Denies any abdominal pain tolerating clears - Physical Exam Vitals/I&O's: Vital Signs Temp Pulse Resp BP Pulse Ox 98.3 F 63 18 128/57 H 93 03/14/20 05:50 03/14/20 05:50 03/14/20 05:50 03/14/20 05:50 03/14/20 05:50 Oxygen Delivery Method Room Air Weight: 119 lb 7.849 oz Body Mass Index (BMI) 20.5 Intake and Output for Last 24 Hours 03/12/20 03/13/20 03/14/20 23:59 23:59 23:59 Intake Total 1050 / 1300 4221.0 / 4221.0 1960 / 1960 Output Total 500 / 500 200 / 200 Balance 1050 / 1300 3721.0 / 3721.0 1760 / 1760 General: Alert, Oriented x3, Cooperative, No apparent distress Lungs: Normal air movement Abdomen: Soft, Non Tender, Non-Distended Microbiology Past 72 Hours 03/13/20 17:50 Mucosa - Nose SARS-CoV-2 Antigen (Rapid) - Final 03/12/20 19:00 Stool Enteric Bacteriology - Final 03/12/20 19:00 Stool C. difficile DNA Amplification - Final Current Medications Acetaminophen (Acetaminophen 325 Mg Tablet) 650 mg PO Q6H PRN PRN PRN Reason: Pain Score 1-10/Temp > 100.7 F Last Admin: 03/14/20 01:56 Dose: 650 mg Documented by: Sodium Chloride () 250 mls @ 15 mls/hr IV .[id number] PRN PRN Reason: Saline Flush Last Infusion: 03/13/20 18:49 Dose: 15 mls/hr Documented by: Sodium Chloride () 250 mls @ 15 mls/hr IV .[id number] PRN PRN Reason: Additional IVPB Infusion Sodium Chloride () 1,000 mls @ 150 mls/hr IV .Q6H40M [facility] Last Admin: 03/14/20 06:09 Dose: 150 mls/hr Documented by: Piperacillin Sod/Tazobactam (Sod 3.375 gm/ Sodium Chloride) 50 mls @ 12.5 mls/hr IV Q8 [facility] Last Admin: 03/14/20 05:53 Dose: 12.5 mls/hr Documented by: Morphine Sulfate (Morphine 2 Mg/Ml Syringe) 2 mg IV Q3H PRN PRN PRN Reason: breakthrough pain 4-10 Ondansetron HCl (Ondansetron 4 Mg/2 Ml Vial) 4 mg IV Q8H PRN PRN PRN Reason: NAUSEA/VOMITING Oxycodone HCl (Oxycodone 5 Mg Tablet) 5 mg PO Q4H PRN PRN PRN Reason: Pain Score 4-5 Last Admin: 03/13/20 14:44 Dose: 5 mg Documented by: Oxycodone HCl (Oxycodone 5 Mg Tablet) 10 mg PO Q4H PRN PRN PRN Reason: Pain Score 6-10 Pantoprazole Sodium (Pantoprazole Sodium 40 Mg Tablet) 40 mg PO DAILY [facility] Last Admin: 03/13/20 11:06 Dose: 40 mg Documented by: Sodium Chloride (0.9% Saline Lock 10 Ml Syringe) 10 - 40 ml IV UD PRN PRN Reason: SALINE FLUSH Last Admin: 03/12/20 16:45 Dose: 10 ml Documented by: Medical Necessity - Tobacco Use Smoking Status: Never smoker Assessment/Plan All Active Problems (Last Reviewed 03/12/20 @ 16:[address] Manohar Dupree, DO) Enterocolitis (Acute) Dehydration (Acute) Tachycardia (Acute) Diarrhea (Acute) Abdominal pain (Acute) ?Plan for an EGD and colonoscopy by Dr. Madrigal on Thursday 03/16; will start bowel prep on Wednesday 03/15 Jaycee Hager M.D. Pager: [phone] [facility] [address] [place] [address], [facility], [address] [place] [id number] Office: [phone] Inpatient E&M: [id number] [facility] Hosp L2
[2020-03-14] MEDS: Pantoprazole Sodium 40 MG Tablet PO (09:11)
--- NOTE | 2020-03-14 13:51 | CASEMGMT ---
LW/POA forms scanned into summary tab of echart. NATALIA Stauffer
--- NOTE | 2020-03-14 17:18 | PN_ITS ---
Patient Problems: Active and Suspected Problems (Last Reviewed 03/12/20 @ 16:[address] Manohar Dupree, DO) Enterocolitis (Acute) Dehydration (Acute) Tachycardia (Acute) Diarrhea (Acute) Abdominal pain (Acute) Subjective: Patient was seen and examined today, she states she continues to have loose stools but is feeling better overall. I talked briefly with general surgery about her care. Objective: General: Alert, Oriented x3, Cooperative, No apparent distress, Well developed, Well nourished HEENT: Atraumatic, PERRLA, EOMI, Normocephalic Oral: Moist Mucosa Neck: Supple, No JVD, Trachea Midline, Thyroid Normal Size and Texture Lungs: Clear to auscultation, Normal air movement, No rhonchi, No wheeze, No rales Cardiovascular: Regular rate, Regular Rhythm, Normal S1, Normal S2, No murmurs, PMI Normal, No rub noted, No Gallop Abdomen: Bowel Sounds Present, Soft, Tender - Mild diffuse abdominal tenderness is noted, abdomen is mildly tympanic Extremities: No clubbing, No cyanosis, No edema, Capillary Refill Less than 3 Seconds Skin: No rashes, No breakdown Musculoskeletal: No Tenderness to Palpation of Joints or Extremities Neurological: Cranial nerves II-XII grossly intact, Neuro grossly intact, Sensory exam intact to light touch and pain Psych/Mental Status: Normal Affect, Appropriate, Alert and oriented to time, place, person, mood and affect - Physical Exam Vitals/I&O's: Vital Signs Temp Pulse Resp BP Pulse Ox 98.2 F 72 18 130/72 H 97 03/14/20 14:56 03/14/20 14:56 03/14/20 14:56 03/14/20 14:56 03/14/20 14:56 Oxygen Delivery Method Room Air Weight: 54.2 kg Body Mass Index (BMI) 20.5 Intake and Output for Last 24 Hours 03/12/20 03/13/20 03/14/20 23:59 23:59 23:59 Intake Total 1050 / 1300 4221.0 / 4221.0 4149 / 4149 Output Total 500 / 500 720 / 720 Balance 1050 / 1300 3721.0 / 3721.0 3429 / 3429 Microbiology Past 72 Hours 03/12/20 21:47 Urine, Clean Catch Urine Culture - Preliminary Culture exhibits no growth. 03/13/20 17:50 Mucosa - Nose SARS-CoV-2 Antigen (Rapid) - Final 03/12/20 19:00 Stool Enteric Bacteriology - Final 03/12/20 19:00 Stool C. difficile DNA Amplification - Final Current Medications Acetaminophen (Acetaminophen 325 Mg Tablet) 650 mg PO Q6H PRN PRN PRN Reason: Pain Score 1-10/Temp > 100.7 F Last Admin: 03/14/20 01:56 Dose: 650 mg Documented by: Bisacodyl (Bisacodyl 5 Mg Tablet) 20 mg PO 1400 ONE Stop: 03/15/20 10:08 Sodium Chloride () 250 mls @ 15 mls/hr IV .[id number] PRN PRN Reason: Saline Flush Last Infusion: 03/14/20 13:00 Dose: Infused Documented by: Sodium Chloride () 250 mls @ 15 mls/hr IV .[id number] PRN PRN Reason: Additional IVPB Infusion Sodium Chloride () 1,000 mls @ 150 mls/hr IV .Q6H40M [facility] Last Admin: 03/14/20 12:57 Dose: 150 mls/hr Documented by: Piperacillin Sod/Tazobactam (Sod 3.375 gm/ Sodium Chloride) 50 mls @ 12.5 mls/hr IV Q8 [facility] Last Admin: 03/14/20 13:00 Dose: 12.5 mls/hr Documented by: Morphine Sulfate (Morphine 2 Mg/Ml Syringe) 2 mg IV Q3H PRN PRN PRN Reason: breakthrough pain 4-10 Ondansetron HCl (Ondansetron 4 Mg/2 Ml Vial) 4 mg IV Q8H PRN PRN PRN Reason: NAUSEA/VOMITING Oxycodone HCl (Oxycodone 5 Mg Tablet) 5 mg PO Q4H PRN PRN PRN Reason: Pain Score 4-5 Last Admin: 03/13/20 14:44 Dose: 5 mg Documented by: Oxycodone HCl (Oxycodone 5 Mg Tablet) 10 mg PO Q4H PRN PRN PRN Reason: Pain Score 6-10 Pantoprazole Sodium (Pantoprazole Sodium 40 Mg Tablet) 40 mg PO DAILY [facility] Last Admin: 03/14/20 09:11 Dose: 40 mg Documented by: Polyethylene Glycol (Polyethylene Glycol 3350 Bowel Prep) 1 bottle PO X1 ONE Stop: 03/15/20 10:01 Sodium Chloride (0.9% Saline Lock 10 Ml Syringe) 10 - 40 ml IV UD PRN PRN Reason: SALINE FLUSH Last Admin: 03/12/20 16:45 Dose: 10 ml Documented by: Medical Necessity - Tobacco Use Smoking Status: Never smoker Assessment/Plan All Active Problems (Last Reviewed 03/12/20 @ 16:[address] Manohar Dupree, DO) Enterocolitis (Acute) Dehydration (Acute) Tachycardia (Acute) Diarrhea (Acute) Abdominal pain (Acute) #1 enterocolitis-etiology unclear, the plan is for the patient undergo an upper and lower endoscopy on 03/16/2020. Patient will remain on IV antibiotics at this time. Patient is on a clear liquid diet presently. Inpatient E&M: [id number] Subs Hosp L2
[2020-03-15] VITALS (9 sets, daily range): BP systolic 130–150; BP diastolic 74–83; PULSE 65–75; RESP 15–18; TEMP 36.4–37.2; O2SAT 91–97
[2020-03-15] MEDS: Acetaminophen 325 MG Tablet 650 MG PO (02:48)
[2020-03-15] MEDS: 0.9% Normal Saline 1,000 ML 150 ML IV ×3 (02:54→18:06)
--- NOTE | 2020-03-15 08:23 | PCM.PN.SRG ---
Patient Problems: Active and Suspected Problems (Last Reviewed 03/12/20 @ 16:[address] Manohar Dupree, DO) Enterocolitis (Acute) Dehydration (Acute) Tachycardia (Acute) Diarrhea (Acute) Abdominal pain (Acute) Subjective: Patient tolerating liquids ~have some bloating - Physical Exam Vitals/I&O's: Vital Signs Temp Pulse Resp BP Pulse Ox 97.8 F 75 15 150/83 H 91 03/15/20 02:52 03/15/20 03:04 03/15/20 03:04 03/15/20 02:52 03/15/20 03:04 Oxygen Delivery Method Room Air Weight: 119 lb 7.849 oz Body Mass Index (BMI) 20.5 Intake and Output for Last 24 Hours 03/13/20 03/14/20 03/15/20 23:59 23:59 23:59 Intake Total 4221.0 / 4221.0 5719 / 5869 1200 / 1200 Output Total 500 / 500 720 / 1020 300 / 300 Balance 3721.0 / 3721.0 4999 / 4849 900 / 900 General: Alert, Oriented x3, Cooperative, No apparent distress Abdomen: Soft, Non Tender, Distended - Moderate Microbiology Past 72 Hours 03/12/20 21:47 Urine, Clean Catch Urine Culture - Final Culture exhibits no growth. 03/13/20 17:50 Mucosa - Nose SARS-CoV-2 Antigen (Rapid) - Final 03/12/20 19:00 Stool Enteric Bacteriology - Final 03/12/20 19:00 Stool C. difficile DNA Amplification - Final Current Medications Acetaminophen (Acetaminophen 325 Mg Tablet) 650 mg PO Q6H PRN PRN PRN Reason: Pain Score 1-10/Temp > 100.7 F Last Admin: 03/15/20 02:48 Dose: 650 mg Documented by: Bisacodyl (Bisacodyl 5 Mg Tablet) 20 mg PO 1400 ONE Stop: 03/15/20 10:08 Sodium Chloride () 250 mls @ 15 mls/hr IV .[id number] PRN PRN Reason: Saline Flush Last Infusion: 03/14/20 13:00 Dose: Infused Documented by: Sodium Chloride () 250 mls @ 15 mls/hr IV .[id number] PRN PRN Reason: Additional IVPB Infusion Sodium Chloride () 1,000 mls @ 150 mls/hr IV .Q6H40M [facility] Last Admin: 03/15/20 02:54 Dose: 150 mls/hr Documented by: Piperacillin Sod/Tazobactam (Sod 3.375 gm/ Sodium Chloride) 50 mls @ 12.5 mls/hr IV Q8 [facility] Last Admin: 03/15/20 05:52 Dose: 12.5 mls/hr Documented by: Morphine Sulfate (Morphine 2 Mg/Ml Syringe) 2 mg IV Q3H PRN PRN PRN Reason: breakthrough pain 4-10 Ondansetron HCl (Ondansetron 4 Mg/2 Ml Vial) 4 mg IV Q8H PRN PRN PRN Reason: NAUSEA/VOMITING Oxycodone HCl (Oxycodone 5 Mg Tablet) 5 mg PO Q4H PRN PRN PRN Reason: Pain Score 4-5 Last Admin: 03/13/20 14:44 Dose: 5 mg Documented by: Oxycodone HCl (Oxycodone 5 Mg Tablet) 10 mg PO Q4H PRN PRN PRN Reason: Pain Score 6-10 Pantoprazole Sodium (Pantoprazole Sodium 40 Mg Tablet) 40 mg PO DAILY [facility] Last Admin: 03/14/20 09:11 Dose: 40 mg Documented by: Polyethylene Glycol (Polyethylene Glycol 3350 Bowel Prep) 1 bottle PO X1 ONE Stop: 03/15/20 10:01 Sodium Chloride (0.9% Saline Lock 10 Ml Syringe) 10 - 40 ml IV UD PRN PRN Reason: SALINE FLUSH Last Admin: 03/12/20 16:45 Dose: 10 ml Documented by: Medical Necessity - Tobacco Use Smoking Status: Never smoker Assessment/Plan All Active Problems (Last Reviewed 03/12/20 @ 16:[address] Manohar Dupree, DO) Enterocolitis (Acute) Dehydration (Acute) Tachycardia (Acute) Diarrhea (Acute) Abdominal pain (Acute) ?Plan for an EGD and colonoscopy by Dr. Madrigal on Thursday 03/16; will start bowel prep on Wednesday 03/15 Jaycee Hager M.D. Pager: [phone] [facility] [address] [place] [address], [facility], [address] [place] [address] Office: [phone] Inpatient E&M: [id number] Subs Hosp L1
[2020-03-15] MEDS: Bisacodyl 5 MG Tablet 20 MG PO (09:33)
[2020-03-15] MEDS: Polyethylene Glycol 3350 BOWEL PREP 1 BOTTLE PO (09:33)
[2020-03-15] MEDS: Pantoprazole Sodium 40 MG Tablet PO (09:34)
[2020-03-15] MEDS: Ondansetron 4 MG/2 ML Vial IV ×2 (10:23→15:20)
[2020-03-15] MEDS: 0.9% Saline Lock 10 ML Syringe IV (15:20)
--- NOTE | 2020-03-15 16:14 | PN_ITS ---
Patient Problems: Active and Suspected Problems (Last Reviewed 03/12/20 @ 16:[address] Manohar Dupree, DO) Enterocolitis (Acute) Dehydration (Acute) Tachycardia (Acute) Diarrhea (Acute) Abdominal pain (Acute) Subjective: Patient was seen and examined today, she complained of some nausea while drinking her bowel prep. Otherwise patient has no complaints to this examiner. Objective: General: Alert, Oriented x3, Cooperative, No apparent distress, Well developed, Well nourished HEENT: Atraumatic, PERRLA, EOMI, Normocephalic Oral: Moist Mucosa Neck: Supple, No JVD, Trachea Midline, Thyroid Normal Size and Texture Lungs: Clear to auscultation, Normal air movement, No rhonchi, No wheeze, No rales Cardiovascular: Regular rate, Regular Rhythm, Normal S1, Normal S2, No murmurs, PMI Normal, No rub noted, No Gallop Abdomen: Bowel Sounds Present, Soft, Tender - Mild diffuse abdominal tenderness is noted, abdomen is mildly tympanic Extremities: No clubbing, No cyanosis, No edema, Capillary Refill Less than 3 Seconds Skin: No rashes, No breakdown Musculoskeletal: No Tenderness to Palpation of Joints or Extremities Neurological: Cranial nerves II-XII grossly intact, Neuro grossly intact, Sensory exam intact to light touch and pain Psych/Mental Status: Normal Affect, Appropriate, Alert and oriented to time, place, person, mood and affect - Physical Exam Vitals/I&O's: Vital Signs Temp Pulse Resp BP Pulse Ox 97.9 F 65 16 144/75 H 95 03/15/20 08:49 03/15/20 10:00 03/15/20 08:49 03/15/20 08:49 03/15/20 08:49 Oxygen Delivery Method Room Air Weight: 54.2 kg Body Mass Index (BMI) 20.5 Intake and Output for Last 24 Hours 03/13/20 03/14/20 03/15/20 23:59 23:59 23:59 Intake Total 4221.0 / 4221.0 5719 / 5869 2900 / 2900 Output Total 500 / 500 720 / 1020 500 / 500 Balance 3721.0 / 3721.0 4999 / 4849 2400 / 2400 Microbiology Past 72 Hours 03/12/20 21:47 Urine, Clean Catch Urine Culture - Final Culture exhibits no growth. 03/13/20 17:50 Mucosa - Nose SARS-CoV-2 Antigen (Rapid) - Final 03/12/20 19:00 Stool Enteric Bacteriology - Final 03/12/20 19:00 Stool C. difficile DNA Amplification - Final Current Medications Acetaminophen (Acetaminophen 325 Mg Tablet) 650 mg PO Q6H PRN PRN PRN Reason: Pain Score 1-10/Temp > 100.7 F Last Admin: 03/15/20 02:48 Dose: 650 mg Documented by: Sodium Chloride () 250 mls @ 15 mls/hr IV .[id number] PRN PRN Reason: Saline Flush Last Infusion: 03/14/20 13:00 Dose: Infused Documented by: Sodium Chloride () 250 mls @ 15 mls/hr IV .[id number] PRN PRN Reason: Additional IVPB Infusion Sodium Chloride () 1,000 mls @ 150 mls/hr IV .Q6H40M [facility] Last Admin: 03/15/20 10:24 Dose: 150 mls/hr Documented by: Piperacillin Sod/Tazobactam (Sod 3.375 gm/ Sodium Chloride) 50 mls @ 12.5 mls/hr IV Q8 [facility] Last Admin: 03/15/20 14:08 Dose: 12.5 mls/hr Documented by: Morphine Sulfate (Morphine 2 Mg/Ml Syringe) 2 mg IV Q3H PRN PRN PRN Reason: breakthrough pain 4-10 Ondansetron HCl (Ondansetron 4 Mg/2 Ml Vial) 4 mg IV Q6H PRN PRN PRN Reason: NAUSEA/VOMITING Last Admin: 03/15/20 15:20 Dose: 4 mg Documented by: Oxycodone HCl (Oxycodone 5 Mg Tablet) 5 mg PO Q4H PRN PRN PRN Reason: Pain Score 4-5 Last Admin: 03/13/20 14:44 Dose: 5 mg Documented by: Oxycodone HCl (Oxycodone 5 Mg Tablet) 10 mg PO Q4H PRN PRN PRN Reason: Pain Score 6-10 Pantoprazole Sodium (Pantoprazole Sodium 40 Mg Tablet) 40 mg PO DAILY [facility] Last Admin: 03/15/20 09:34 Dose: 40 mg Documented by: Sodium Chloride (0.9% Saline Lock 10 Ml Syringe) 10 - 40 ml IV UD PRN PRN Reason: SALINE FLUSH Last Admin: 03/15/20 15:20 Dose: 10 ml Documented by: Medical Necessity - Tobacco Use Smoking Status: Never smoker Assessment/Plan All Active Problems (Last Reviewed 03/12/20 @ 16:[address] Manohar Dupree, DO) Enterocolitis (Acute) Dehydration (Acute) Tachycardia (Acute) Diarrhea (Acute) Abdominal pain (Acute) #1 enterocolitis-etiology unclear, the plan is for the patient undergo an upper and lower endoscopy on 03/16/2020. Patient will remain on IV antibiotics at this time. Patient is on a clear liquid diet presently. She is undergoing a bowel prep at this time. Inpatient E&M: 12643 Subs Hosp L2
[2020-03-16] VITALS (11 sets, daily range): BP systolic 97–137; BP diastolic 58–94; PULSE 69–80; RESP 15–18; TEMP 36.3–37.1; O2SAT 94–98; BMI 20.5
--- NOTE | 2020-03-16 | GASB_PTH ---
PATIENT: GURDEEP PIERRE LOC: MS3 U#:[id number] AGE/SX: 79/F ROOM: VA310 RE03/12/[address]: Dr. Sammy Castro MD : 1940 BED: 1 DIS: 03/19/2020 SPEC #: [id number] RECD: 03/16/20 12:05 STATUS: RADHA MEIER #: [id number] KJ: 03/16/20 00:[address]: Jason Madrigal DEPT: SURGICAL PATHOLOGY RECD BY: Daljit Schmitz ENTERED: 03/16/20 12:07 SP TYPE: Gastric Bx OTHR DR: Dr. Gia Grover, DO Dr. Manohar Dupree, DO MD Dr. Jason Russo MD Tissues: A - Gastric mucous membrane B - Gastric mucous membrane C - Esophageal mucous membrane D - Ileum, NOS E - Cecum, NOS F - COLON BIOPSY Procedures: Special Stain Group II Surgery Specimen Level IV Alcian Blue/PAS (control) Comments: @ Ordering doctor for SUIV edited from to @ kishan BARBER at 03/16/20 1410 @ Submitting doctor edited from to @ kishan BARBER at 03/16/20 1410 HEADER OPERATION: Colonoscopy, EGD ([facility] [place]) PRE-OP DIAGNOSIS: Enterocolitis, dehydration, tachycardia, diarrhea, abdominal pain TISSUE SUBMITTED: A - Antrum biopsy for histo and H. pylori, B - Gastric fundic polyp biopsy, C - Distal esophagus biopsy, D - Terminal ileum biopsy, E - Cecum biopsy, F - Random colonic biopsy MICROSCOPIC DIAGNOSIS A. Gastric antrum, biopsy: Mild chronic gastritis. See comment. B. Gastric fundic polyp, biopsy: Polypoid fragments of benign gastric mucosa with mild chronic inflammation. C. Distal esophagus, biopsy: Gastroesophageal junctional mucosa with mild chronic inflammation. No evidence of goblet cell metaplasia. See comment. D. Terminal ileum, biopsy: No pathologic change. E. Cecum, biopsy: No pathologic change. F. Colon, random biopsy: Mild melanosis coli. AM:eros 03/17/2020 COMMENT A. The results of immunohistochemistry for Helicobacter pylori will be reported separately ([id number]). C. Alcian blue/PAS stain with matched control supports the above diagnosis. MICROSCOPIC DESCRIPTION Slides are reviewed. GROSS DESCRIPTION A - Received in fixative is one container labeled with the patient's name and designated antrum biopsy. The specimen consists of one irregular fragment of light moran soft tissue that measures 0.4 x 0.3 x 0.1 cm. The specimen is totally submitted in one cassette. B - Received in fixative is one container labeled with the patient's name and designated gastric fundic polyp biopsy. The specimen consists of two irregular fragments of light moran soft tissue that in aggregate measure 0.8 x 0.3 x 0.1 cm. The specimen is totally submitted in one cassette. C - Received in fixative is one container labeled with the patient's name and designated distal esophagus biopsy. The specimen consists of one irregular fragment of light moran soft tissue that measures 0.5 x 0.2 x 0.1 cm. The specimen is totally submitted in one cassette. D - Received in fixative is one container labeled with the patient's name and designated terminal ileum biopsy. The specimen consists of multiple irregular fragments of light moran soft tissue that in aggregate measure 1.4 x 0.5 x 0.1 cm. The specimen is totally submitted in one cassette. E - Received in fixative is one container labeled with the patient's name and designated cecum biopsy. The specimen consists of one irregular fragment of light moran soft tissue that measures 0.6 x 0.2 x 0.1 cm. The specimen is totally submitted in one cassette. F - Received in fixative is one container labeled with the patient's name and designated random colonic biopsy. The specimen consists of multiple irregular fragments of light moran soft tissue that in aggregate measure 1 x 0.4 x 0.1 cm. The specimen is totally submitted in one cassette. / CHASE:eros 03/16/20 TC:3 CPT: 68619 x6, 39997
[2020-03-16] MEDS: 0.9% Normal Saline 1,000 ML 150 ML IV ×2 (00:52→10:45)
--- NOTE | 2020-03-16 06:30 | IMM_PTH ---
PATIENT: GURDEEP PIERRE LOC: MS3 U#:[id number] AGE/SX: 79/F ROOM: OK310 RE03/12/[address]: Dr. Sammy Castro MD : 1940 BED: 1 DIS: 03/19/2020 SPEC #: [id number] RECD: 03/16/20 14:09 STATUS: RADHA REAri #: [id number] KJ: 03/16/20 06:[address]: Jason Madrigal DEPT: IMMUNOHISTOCHEMISTRY RECD BY: Lori Reyes ENTERED: 03/16/20 14:10 SP TYPE: IMMUNO OTHR DR: DO Dr. Manohar Gonzalez, DO Dr. Sammy Castro MD Tissues: A - Stomach, NOS Procedures: H Pylori (initial) PHYSICIAN & INSTITUTION [place] [id number] SPECIMEN INFORMATION: Tissue Source: A - Antrum biopsy Clinical Info: Enterocolitis, dehydration, tachycardia, diarrhea, abdominal pain Specimen Number: [id number] CPT code: 81494 METHODOLOGY: Deparaffinized sections of prefer/formalin-fixed tissue or PAP/DQ stained slides are incubated with monoclonal/polyclonal antibodies/oligonucleotide probes. Localization is made via biotin free immunoperoxidase method. Appropriate controls are performed and reacted as expected. Results on target cell population are indicated in the following table: RESULTS: ANTIBODY / CLONE RESULT Block A H Pylori (polyclonal) negative These tests were developed and their performance characteristics determined by [facility]. They may not have been cleared or approved by the U.S. Food and Drug Administration. The FDA has determined that such clearance or approval is not necessary. INTERPRETATION: A. Antrum, biopsy: Negative for Helicobacter pylori organisms. AM:eros 03/17/2020
--- NOTE | 2020-03-16 07:04 | OP.CCLET_ITS ---
03/16/2020 Gia Grover Re : Upper GI endoscopy procedure for Breanna Grover This procedure was performed on Monday, March 16, 2020. My impressions and recommendations are as follows: Impressions : - LA Grade A reflux esophagitis. Biopsied. - Medium-sized hiatal hernia. - Chronic bile gastritis. Biopsied. - Multiple gastric polyps. Resected and retrieved. - Normal examined duodenum. No findings to correlate with diarrhea. Consider carafate for bile reflux Recommendations : - Telephone my office for pathology results in 1 week. - Continue present medications. My findings are described in the full procedure note, which is enclosed. If I can be of further assistance, please feel free to contact me at Doctor phone number(s): Work: . Sincerely, Jason Madrigal MD 03/16/2020 7:03:33 AM This report has been signed electronically.
--- NOTE | 2020-03-16 07:04 | OP.EGD_ITS ---
Patient Name: Breanna Purcell Procedure Date: 03/16/2020 6:12 AM Date of : 1940 Age: 79 Procedure: Upper GI endoscopy Indications: Generalized abdominal pain Providers: Jason Madrigal MD Medicines: See the Anesthesia note for documentation of the administered medications Complications: No immediate complications. Procedure: Pre-Anesthesia Assessment: - Prior to the procedure, a History and Physical was performed, and patient medications and allergies were reviewed. The patient's tolerance of previous anesthesia was also reviewed. The risks and benefits of the procedure and the sedation options and risks were discussed with the patient. All questions were answered, and informed consent was obtained. Prior Anticoagulants: The patient has taken no previous anticoagulant or antiplatelet agents. ASA Grade Assessment: III - A patient with severe systemic disease. After reviewing the risks and benefits, the patient was deemed in satisfactory condition to undergo the procedure. After obtaining informed consent, the endoscope was passed under direct vision. Throughout the procedure, the patient's blood pressure, pulse, and oxygen saturations were monitored continuously. The gastroscope was introduced through the mouth, and advanced to the second part of duodenum. The upper GI endoscopy was accomplished without difficulty. The patient tolerated the procedure well. Scope In: 6:28:12 AM Scope Out: 6:32:29 AM Total Procedure Duration Time 0 hours 4 minutes 17 seconds Findings: LA Grade A (one or more mucosal breaks less than 5 mm, not extending between tops of 2 mucosal folds) esophagitis with no bleeding was found 40 cm from the incisors. Biopsies were taken with a cold forceps for histology. A medium-sized hiatal hernia was present. Diffuse mild inflammation characterized by erythema was found in the stomach. Biopsies were taken with a cold forceps for histology. Multiple pedunculated and sessile polyps with no stigmata of recent bleeding were found on the greater curvature of the stomach. The polyp was removed with a cold biopsy forceps. Resection and retrieval were complete. The examined duodenum was normal. Impression: - LA Grade A reflux esophagitis. Biopsied. - Medium-sized hiatal hernia. - Chronic bile gastritis. Biopsied. - Multiple gastric polyps. Resected and retrieved. - Normal examined duodenum. No findings to correlate with diarrhea. Consider carafate for bile reflux Recommendation: - Telephone my office for pathology results in 1 week. - Continue present medications. Procedure Code(s): --- Professional --- 56498, Esophagogastroduodenoscopy, flexible, transoral; with biopsy, single or multiple Diagnosis Code(s): --- Professional --- K21.0, Gastro-esophageal reflux disease with esophagitis K44.9, Diaphragmatic hernia without obstruction or gangrene K29.50, Unspecified chronic gastritis without bleeding K29.60, Other gastritis without bleeding K31.7, Polyp of stomach and duodenum R10.84, Generalized abdominal pain CPT copyright 2017 [employer]. All rights reserved. The codes documented in this report are preliminary and upon [employer] review may be revised to meet current compliance requirements. Jason Madrigal MD 03/16/2020 7:03:33 AM This report has been signed electronically. Number of Addenda: 0 Note Initiated On: 03/16/2020 6:12 AM
--- NOTE | 2020-03-16 07:10 | CT_ITS ---
STUDY: CT ABDOMEN AND PELVIS WITHOUT CONTRAST REASON FOR EXAM: Female, 79 years old. RLQ MASS, SUSPECT CHRONS. ENTEROCOLITIS, DEHYDRATION, DIARRHEA, ABD PAIN. RADIATION DOSAGE (If Supplied By Facility): CTDIvol = ( 6.55 ) mGy, DLP = ( 320.64 ) mGycm TECHNIQUE: Transaxial images were obtained from the dome of the diaphragm to the symphysis pubis without oral contrast, and without intravenous contrast. Sagittal and coronal images were reconstructed. Limited study. The patient was unable to ingest the required amount of oral contrast. Individualized dose optimization techniques were used for this CT. COMPARISON: Comparison is made with prior study dated 03/10/2020. FINDINGS: There now is evidence of small bilateral pleural effusions right greater than left with bibasilar atelectasis and/or infiltrates. Minimal thickening of the anterior pericardium. Small amount of perihepatic fluid. Normal gallbladder and extrahepatic biliary system. Normal spleen. Normal pancreas. Normal bilateral adrenal glands. Normal right kidney. Normal left kidney. Normal visualized stomach. Mildly dilated small bowel due to the ingested fluids required for enterography. Normal colon. The appendix is visualized and appears normal. Normal abdominal aorta. Normal inferior vena cava. Normal retroperitoneum. Normal urinary bladder. Normal abdominal wall. There are mild degenerative changes of the visualized lumbar spine. CT/Abdomen/Pel W ORAL Cont Only IMPRESSION: Limited study. Limited assessment of the terminal ileum and right lower quadrant. Small amount of perihepatic fluid as well as fluid within the pelvis. Bilateral pleural effusions right greater than left with bibasilar atelectasis and/or infiltrates. Electronically Signed: Graham Rivera, at 10:53 EST , Service support ,
--- NOTE | 2020-03-16 07:10 | OP.CCLET_ITS ---
03/16/2020 Gia Grover Re : Colonoscopy procedure for Breanna Grover This procedure was performed on Monday, March 16, 2020. My impressions and recommendations are as follows: Impressions : - Hemorrhoids found on perianal exam. - Redundant colon. - The examined portion of the ileum was normal. Biopsied. - The cecum is normal. Biopsied. - The entire examined colon is normal. Biopsied. Terminal ileum well visualized for at least 10cm with no active disease, several biopsies taken Recommendations : - [facility]. - Resume previous diet. - Continue present medications. - Repeat colonoscopy in 10 years for screening purposes. - Telephone my office for pathology results in 1 week. Palpable mass right lower quadrant and ongoing bloating/pain Plan CT enterography. Suspicious clinically for Crohns although no abnormal mucosa identified. My findings are described in the full procedure note, which is enclosed. If I can be of further assistance, please feel free to contact me at Doctor phone number(s): Work: . Sincerely, Jason Madrigal MD 03/16/2020 7:10:19 AM This report has been signed electronically.
--- NOTE | 2020-03-16 07:10 | OP.COLON_ITS ---
Patient Name: Breanna Purcell Procedure Date: 03/16/2020 6:33 AM Date of : 1940 Age: 79 Procedure: Colonoscopy Indications: Clinically significant diarrhea of unexplained origin Providers: Jason Madrigal MD Medicines: See the Anesthesia note for documentation of the administered medications Patient Profile: Last Colonoscopy: March 2013. Complications: No immediate complications. Procedure: Pre-Anesthesia Assessment: - Prior to the procedure, a History and Physical was performed, and patient medications and allergies were reviewed. The patient's tolerance of previous anesthesia was also reviewed. The risks and benefits of the procedure and the sedation options and risks were discussed with the patient. All questions were answered, and informed consent was obtained. Prior Anticoagulants: The patient has taken no previous anticoagulant or antiplatelet agents. ASA Grade Assessment: III - A patient with severe systemic disease. After reviewing the risks and benefits, the patient was deemed in satisfactory condition to undergo the procedure. After I obtained informed consent, the scope was passed under direct vision. Throughout the procedure, the patient's blood pressure, pulse, and oxygen saturations were monitored continuously. The Colonoscope was introduced through the anus and advanced to the terminal ileum, with identification of the appendiceal orifice and IC valve. The colonoscopy was performed without difficulty. The patient tolerated the procedure well. The quality of the bowel preparation was good. The terminal ileum, the ileocecal valve and the appendiceal orifice were photographed. Scope In: 6:34:47 AM Scope Withdrawal Time 0 hours 10 minutes 6 seconds Scope Out: 6:54:11 AM Total Procedure Duration Time 0 hours 19 minutes 24 seconds Findings: Hemorrhoids were found on perianal exam. The colon (entire examined portion) was moderately redundant. Advancing the scope required using manual pressure. The terminal ileum appeared normal. Biopsies were taken with a cold forceps for histology. The cecum appeared normal. Biopsies were taken with a cold forceps for histology. The colon (entire examined portion) appeared normal. Biopsies for histology were taken with a cold forceps from the entire colon for evaluation of microscopic colitis. Impression: - Hemorrhoids found on perianal exam. - Redundant colon. - The examined portion of the ileum was normal. Biopsied. - The cecum is normal. Biopsied. - The entire examined colon is normal. Biopsied. Terminal ileum well visualized for at least 10cm with no active disease, several biopsies taken Recommendation: - [facility]. - Resume previous diet. - Continue present medications. - Repeat colonoscopy in 10 years for screening purposes. - Telephone my office for pathology results in 1 week. Palpable mass right lower quadrant and ongoing bloating/pain Plan CT enterography. Suspicious clinically for Crohns although no abnormal mucosa identified. Procedure Code(s): --- Professional --- 06819, Colonoscopy, flexible; with biopsy, single or multiple Diagnosis Code(s): --- Professional --- K64.9, Unspecified hemorrhoids R19.7, Diarrhea, unspecified Q43.8, Other specified congenital malformations of intestine CPT copyright 2017 [employer]. All rights reserved. The codes documented in this report are preliminary and upon soft work wrapper layer and examiner review may be revised to meet current compliance requirements. Jason Madrigal MD 03/16/2020 7:10:19 AM This report has been signed electronically. Number of Addenda: 0 Note Initiated On: 03/16/2020 6:33 AM
--- NOTE | 2020-03-16 07:12 | PCM.PN.SRG ---
Patient Problems: Active and Suspected Problems (Last Reviewed 03/12/20 @ 16:[address] Manohar Dupree, DO) Enterocolitis (Acute) Dehydration (Acute) Tachycardia (Acute) Diarrhea (Acute) Abdominal pain (Acute) Subjective: Patient notes feeling better but still has abdominal bloating still has some nausea and notes persistent though less severe abdominal pain - Physical Exam Vitals/I&O's: Vital Signs Temp Pulse Resp BP Pulse Ox 97.8 F 79 18 129/69 H 96 03/16/20 06:58 03/16/20 07:05 03/16/20 07:05 03/16/20 07:05 03/16/20 07:05 Oxygen Flow Rate (L/min) 2 Oxygen Delivery Method Room Air Weight: 119 lb 7.849 oz Body Mass Index (BMI) 20.5 Intake and Output for Last 24 Hours 03/14/20 03/15/20 03/16/20 23:59 23:59 23:59 Intake Total 5719 / 5869 4800 / 5300 1550 / 1550 Output Total 720 / 1020 500 / 500 Balance 4999 / 4849 4300 / 4800 1550 / 1550 Abdomen: - - Soft, palpable tenderness with palpable mass right lower quadrant with mild guarding Microbiology Past 72 Hours 03/12/20 21:47 Urine, Clean Catch Urine Culture - Final Culture exhibits no growth. 03/13/20 17:50 Mucosa - Nose SARS-CoV-2 Antigen (Rapid) - Final 03/12/20 19:00 Stool Enteric Bacteriology - Final Current Medications Acetaminophen (Acetaminophen 325 Mg Tablet) 650 mg PO Q6H PRN PRN PRN Reason: Pain Score 1-10/Temp > 100.7 F Last Admin: 03/15/20 02:48 Dose: 650 mg Documented by: Sodium Chloride () 250 mls @ 15 mls/hr IV .[id number] PRN PRN Reason: Saline Flush Last Infusion: 03/14/20 13:00 Dose: Infused Documented by: Sodium Chloride () 250 mls @ 15 mls/hr IV .[id number] PRN PRN Reason: Additional IVPB Infusion Sodium Chloride () 1,000 mls @ 150 mls/hr IV .Q6H40M [facility] Last Admin: 03/16/20 00:52 Dose: 150 mls/hr Documented by: Piperacillin Sod/Tazobactam (Sod 3.375 gm/ Sodium Chloride) 50 mls @ 12.5 mls/hr IV Q8 [facility] Last Admin: 03/16/20 04:59 Dose: 12.5 mls/hr Documented by: Morphine Sulfate (Morphine 2 Mg/Ml Syringe) 2 mg IV Q3H PRN PRN PRN Reason: breakthrough pain 4-10 Ondansetron HCl (Ondansetron 4 Mg/2 Ml Vial) 4 mg IV Q6H PRN PRN PRN Reason: NAUSEA/VOMITING Last Admin: 03/15/20 15:20 Dose: 4 mg Documented by: Oxycodone HCl (Oxycodone 5 Mg Tablet) 5 mg PO Q4H PRN PRN PRN Reason: Pain Score 4-5 Last Admin: 03/13/20 14:44 Dose: 5 mg Documented by: Oxycodone HCl (Oxycodone 5 Mg Tablet) 10 mg PO Q4H PRN PRN PRN Reason: Pain Score 6-10 Pantoprazole Sodium (Pantoprazole Sodium 40 Mg Tablet) 40 mg PO DAILY [facility] Last Admin: 03/15/20 09:34 Dose: 40 mg Documented by: Sodium Chloride (0.9% Saline Lock 10 Ml Syringe) 10 - 40 ml IV UD PRN PRN Reason: SALINE FLUSH Last Admin: 03/15/20 15:20 Dose: 10 ml Documented by: Medical Necessity - Tobacco Use Smoking Status: Never smoker Assessment/Plan All Active Problems (Last Reviewed 03/12/20 @ 16:[address] Manohar Dupree, DO) Enterocolitis (Acute) Dehydration (Acute) Tachycardia (Acute) Diarrhea (Acute) Abdominal pain (Acute) Persistent diarrhea and persistent abdominal pain and palpable mass right lower quadrant with tenderness noted. Upper and lower endoscopy not remarkable for abnormal mucosa. The terminal ileum was intubated for several centimeters and no abnormal mucosa identified. Multiple biopsies obtained. Plan for CT enterography. I am suspicious for possible Crohn's disease although this was not visualized on endoscopy. Jason Madrigal M.D., F.A.C.S.
--- NOTE | 2020-03-16 07:46 | PN_ITS ---
Patient Problems: Active and Suspected Problems (Last Reviewed 03/12/20 @ 16:[address] Manohar Dupree, DO) Enterocolitis (Acute) Dehydration (Acute) Tachycardia (Acute) Diarrhea (Acute) Abdominal pain (Acute) Reason for Visit: Follow-up for abdominal pain along with diarrhea. Objective: The patient has EGD and colonoscopy in the morning. Surgeon Dr. Madrigal called me and informed the findings of colonoscopy and EGD. Patient has right lower quadrant abdominal mass and pain. Currently she has bloating sensation which is less severe. Mucosa looked normal up to 10 cm beyond terminal ileum and biopsies were taken. CT abdomen and pelvis, enterography with oral contrast ordered. Patient is not short of breath. Heart rate and blood pressure in a suitable range. Physical exam General: Alert, Oriented x3, Cooperative HEENT: Atraumatic, PERRLA, EOMI, Normocephalic Oral: No Gingival or Mucosal Lesions/ Ulcerations Neck: Supple, No JVD, Negative Carotid Bruits Lungs: Air entry diminished in bilateral lung bases, right more than left. Bilateral pleural effusion right moderate, left small. No hypoxia. No crepitation/rhonchi Cardiovascular: Regular rate, Regular Rhythm, Normal S1, Normal S2, No murmurs Abdomen: Palpable right lower quadrant mass. Mild tenderness present on deep palpation. No rebound tenderness. Hyperactive bowel sounds. No guarding/rigidity : No renal angle tenderness. No suprapubic tenderness. Extremities: No edema, Capillary Refill Less than 3 Seconds Skin: No rashes, No breakdown Musculoskeletal: No Tenderness to Palpation of Joints or Extremities Neurological: Cranial nerves II-XII grossly intact, Deep Tendon Reflexes 2+/4 and Symmetrical, Neuro grossly intact Psych/Mental Status: Normal Affect, Appropriate. Vitals/I&O's: Vital Signs Temp Pulse Resp BP Pulse Ox 97.3 F L 78 18 134/66 H 95 03/16/20 07:20 03/16/20 07:20 03/16/20 07:20 03/16/20 07:20 03/16/20 07:20 Oxygen Flow Rate (L/min) 2 Oxygen Delivery Method Room Air Weight: 119 lb 7.849 oz Body Mass Index (BMI) 20.5 Intake and Output for Last 24 Hours 03/14/20 03/15/20 03/16/20 23:59 23:59 23:59 Intake Total 5719 / 5869 4800 / 5300 1550 / 1550 Output Total 720 / 1020 500 / 500 Balance 4999 / 4849 4300 / 4800 1550 / 1550 Microbiology Past 72 Hours 03/12/20 21:47 Urine, Clean Catch Urine Culture - Final Culture exhibits no growth. 03/13/20 17:50 Mucosa - Nose SARS-CoV-2 Antigen (Rapid) - Final 03/12/20 19:00 Stool Enteric Bacteriology - Final Current Medications Acetaminophen (Acetaminophen 325 Mg Tablet) 650 mg PO Q6H PRN PRN PRN Reason: Pain Score 1-10/Temp > 100.7 F Last Admin: 03/15/20 02:48 Dose: 650 mg Documented by: Sodium Chloride () 250 mls @ 15 mls/hr IV .[id number] PRN PRN Reason: Saline Flush Last Infusion: 03/14/20 13:00 Dose: Infused Documented by: Sodium Chloride () 250 mls @ 15 mls/hr IV .[id number] PRN PRN Reason: Additional IVPB Infusion Sodium Chloride () 1,000 mls @ 150 mls/hr IV .[id number] [facility] Last Admin: 03/16/20 00:52 Dose: 150 mls/hr Documented by: Piperacillin Sod/Tazobactam (Sod 3.375 gm/ Sodium Chloride) 50 mls @ 12.5 mls/hr IV Q8 [facility] Last Admin: 03/16/20 04:59 Dose: 12.5 mls/hr Documented by: Morphine Sulfate (Morphine 2 Mg/Ml Syringe) 2 mg IV Q3H PRN PRN PRN Reason: breakthrough pain 4-10 Ondansetron HCl (Ondansetron 4 Mg/2 Ml Vial) 4 mg IV Q6H PRN PRN PRN Reason: NAUSEA/VOMITING Last Admin: 03/15/20 15:20 Dose: 4 mg Documented by: Oxycodone HCl (Oxycodone 5 Mg Tablet) 5 mg PO Q4H PRN PRN PRN Reason: Pain Score 4-5 Last Admin: 03/13/20 14:44 Dose: 5 mg Documented by: Oxycodone HCl (Oxycodone 5 Mg Tablet) 10 mg PO Q4H PRN PRN PRN Reason: Pain Score 6-10 Pantoprazole Sodium (Pantoprazole Sodium 40 Mg Tablet) 40 mg PO DAILY [facility] Last Admin: 03/15/20 09:34 Dose: 40 mg Documented by: Sodium Chloride (0.9% Saline Lock 10 Ml Syringe) 10 - 40 ml IV UD PRN PRN Reason: SALINE FLUSH Last Admin: 03/15/20 15:20 Dose: 10 ml Documented by: STROKE Vital Signs/Narrative: Vital Signs Temp Pulse Resp BP Pulse Ox 03/16/20 07:20 97.3 F L 78 18 134/66 H 95 03/16/20 07:15 74 16 131/69 H 96 03/16/20 07:10 77 18 124/67 H 96 03/16/20 07:05 79 18 129/69 H 96 03/16/20 07:00 80 18 110/94 H 95 03/16/20 06:58 97.8 F 80 18 97/74 95 03/16/20 03:56 98.2 F 69 15 128/58 H 94 03/16/20 03:53 98.2 F 69 15 128/58 H 94 Medical Necessity - Tobacco Use Smoking Status: Never smoker Assessment/Plan All Active Problems (Last Reviewed 03/12/20 @ 16:[address] Manohar Dupree, DO) Enterocolitis (Acute) Dehydration (Acute) Tachycardia (Acute) Diarrhea (Acute) Abdominal pain (Acute) This is a 79-year-old female was admitted with abdominal pain, diarrhea since March [address] abdomen on March 09 without oral contrast reported no dilated loops of bowel. 1. Acute right lower quadrant abdominal pain with suspicion of Crohn's disease: Patient has palpable right lower quadrant mass. Infectious work-up including C. difficile, enteric bacteriology panel, rapid SARS-CoV-2 antigen are negative. Urine culture negative. Has EGD and colonoscopy in the morning which does not explain abdominal pain. 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 Normal duodenum. Colonoscopy reported hemorrhoids with redundant colon but no abnormal mucosa up to 10 cm beyond terminal ileum. Discussed with the surgeon Dr. Jason Madrigal and CT abdomen with oral contrast was ordered but unfortunately patient vomited oral contrast and repeat CT was similar to without oral contrast with limited assessment. It reported bilateral pleural effusion right greater than left with atelectasis and perihepatic ascites. Empirically started on IV Solu-Medrol. Antibiotic Zosyn was discontinued as infectious work-up was negative and patient has been afebrile with no leukocytosis. 2. Bilateral pleural effusion, right more than left and perihepatic ascites: Patient denies any history of liver disease, chronic lung disease or heart disease. BNP elevated 635. 2D echo is ordered. IV fluid decreased to 75 mill per hour. Lasix 40 mg IV test dose given. Patient is not hypoxic, tachypneic or short of breath. 2. History of sinus tachycardia: Currently normal sinus rhythm at 73 bpm. 3. VTE prophylaxis with low molecular weight heparin. Total time of the visit including total time spent in counseling or coordination of care, (more than 50% of the total time, spent in obtaining medical information from nurses and other ancillary care providers,explaining to the patient about labs, imaging, diagnosis and management), discussion with surgeon and explaining to patient and her , review of labs and imaging is 30 minutes. Microbiology Past 72 Hours 03/12/20 21:47 Urine, Clean Catch Urine Culture - Final Culture exhibits no growth. 03/13/20 17:50 Mucosa - Nose SARS-CoV-2 Antigen (Rapid) - Final Laboratory Results 03/16/20 07:50: ESR 23 03/16/20 07:50: C-React Prot Ext Range 117.00 H 03/16/20 07:50: B-Natriuretic Peptide 635.7 H 03/16/20 07:50: c-ANCA Antibody Pending, p-ANCA Antibody Pending Clinical Impression(s) from Imaging Lit Abdomen CT 03/16/20 07:10 IMPRESSION: Limited study. Limited assessment of the terminal ileum and right lower quadrant. Small amount of perihepatic fluid as well as fluid within the pelvis. Bilateral pleural effusions right greater than left with bibasilar atelectasis and/or infiltrates. Inpatient E&M: [id number] [facility] L3
[2020-03-16 08:08] LABS: Erythrocyte Sedimentation Rate 23 mm/hr (0-30)
--- NOTE | 2020-03-16 09:14 | NURSING ---
sat with the patient as she was taking the Breeza. pt drinking slowly, ecouragement given. pt states she is so full, not sure where the fluid will go.
--- NOTE | 2020-03-16 09:33 | NURSING ---
talked with Rhea floor nurse to advise that patient may no be able to finish the contrast needed for the ct test, at time she has drank 1 1/2 bottles out of the three she needs in 30 minutes. Pt feels very full, is burping. Rhea will contact Dr. Madrigal with this information.
--- NOTE | 2020-03-16 09:56 | NURSING ---
continues to drink contrast, states very full, hard to drink, feels like there is not enough room in the abd, stomach bloating
--- NOTE | 2020-03-16 10:01 | NURSING ---
drank 2 1/2 bottles, then vomited large amount of clear fluid, unable to tolerate any more, ct scan done, pt cleaned up vital signs 180/114, hr 84. resp 16, vs taken just after emesis, transported via bed report called to Elizabeth Bermudezpropellant charge loader nurse
[2020-03-16] MEDS: Pantoprazole Sodium 40 MG Tablet PO (10:46)
--- NOTE | 2020-03-16 11:06 | ECHOD_ITS ---
Reason For Study: B/L Pleural Effusion Procedure This was a 2D Doppler, Color Flow transthoracic echocardiogram. Exam performed portable in patient room. Left Ventricle Normal LV size. Left ventricular systolic function is normal. No regional wall motion abnormalities noted. Right Ventricle Normal RV size. Normal systolic function. Atria Normal left atrium. Normal right atrium. Mitral Valve Bileaflet diffuse mitral valve thickening. Mild (1+) eccentric mitral valve insufficiency. Tricuspid Valve Normal tricuspid valve. Mild (1+) tricuspid valve insufficiency. Pulmonary artery systolic pressure is 35 mmHg. Aortic Valve Trisinus/trileaflet aortic valve. Pulmonic Valve Normal pulmonic valve. Great Vessels Normal aortic root. The pulmonary artery is normal size. Inferior vena cava collapse with respiration. Pericardium/Pleural Trivial pericardial effusion. Moderate size left pleural effusion. MMode/2D Measurements & Calculations LVIDd: 4.0 cm IVSd: 0.89 cm LA dimension: 3.1 cm LVIDs: 2.1 cm LVPWd: 1.4 cm RVDd: 3.1 cm FS: 48.5 % LAV(MOD-bp): 75.2 ml LA A4 area: 24.0 cm2 RA A4 area: 21.3 cm2 LAV(MOD-bp) Indexed: 47.9 ml/m2 LAV(MOD-sp2): 68.4 ml LAV(MOD-sp4): 79.6 ml Time Measurements MV dec time: 0.27 sec Doppler Measurements & Calculations MV E max shabbir: 89.1 cm/sec Lat Peak E' Shabbir: 7.0 cm/sec Med Peak E' Shabbir: 8.1 cm/sec MV A max shabbir: 83.8 cm/sec E/E' lat: 12.8 E/E' med: 11.0 MV E/A: 1.1 MV V2 max: 108.1 cm/sec MV P1/2t max shabbir: 106.1 cm/sec Ao V2 max: 162.8 cm/sec MV max P.7 mmHg MV P1/2t: 71.6 msec Ao max P.6 mmHg MV V2 mean: 54.7 cm/sec MV dec slope: 433.9 cm/sec2 MV mean P.4 mmHg MVA(P1/2t): 3.1 cm2 MV V2 VTI: 32.1 cm LV V1 max: 146.1 cm/sec PA V2 max: 92.5 cm/sec TR max shabbir: 277.1 cm/sec LV V1 max P.5 mmHg TR max P.7 mmHg Interpretation Summary Normal LV size. Left ventricular systolic function is normal. Bileaflet diffuse mitral valve thickening. Pulmonary artery systolic pressure is 35 mmHg. Trivial pericardial effusion. Mild (1+) tricuspid valve insufficiency. Moderate size left pleural effusion. Ordering Physician: Sammy Castro Referring Physician: Gia Grover Performed By: Terry Epps RCS
--- NOTE | 2020-03-16 11:12 | NURSING ---
DR AMBRIZ CALLED,UPDATED THIS NURSE ON CURRENT RESULTS AND ASKED TO PASS INFO ON TO PCP AND PTS NURSE. DR STOVALL AND YURIY Vega RN MADE AWARE
[2020-03-16 11:51] LABS: BNP,B-Type NATRIURETIC PEPTIDE 635.7 pg/mL (0-100)
[2020-03-16] MEDS: Furosemide 40 MG/4 ML Vial IV (16:21)
[2020-03-16] MEDS: Enoxaparin 40 MG/0.4 ML Syringe SC (18:20)
[2020-03-16] MEDS: 0.9% Normal Saline 1,000 ML 75 ML IV (21:59)
--- NOTE | 2020-03-17 06:03 | PN.SURG_ITS ---
Patient Problems: Active and Suspected Problems (Last Reviewed 03/12/20 @ 16:[address] Manohar Dupree, DO) Enterocolitis (Acute) Dehydration (Acute) Tachycardia (Acute) Diarrhea (Acute) Abdominal pain (Acute) Subjective: Patient states that she is comfortable this morning. No nausea or vomiting. She states that she has not moved her bowels since yesterday afternoon. She is not describing any abdominal pain at rest. She is describing however severe loss of appetite. She states she had only a few bites of Jell-O last night. As noted the CT scan enterography could not be accomplished because the patient could not tolerate the oral prep and completely evacuated her stomach of that contrast. - Physical Exam Vitals/I&O's: Vital Signs Temp Pulse Resp BP Pulse Ox 98.7 F 73 16 136/63 H 98 03/16/20 14:02 03/16/20 14:02 03/16/20 14:02 03/16/20 14:02 03/16/20 14:02 Oxygen Flow Rate (L/min) 2 Oxygen Delivery Method Room Air Weight: 119 lb 7.849 oz Body Mass Index (BMI) 20.5 Intake and Output for Last 24 Hours 03/15/20 03/16/20 03/17/20 23:59 23:59 23:59 Intake Total 4800 / 5300 3990.0 / 4110.0 240 / 240 Output Total 500 / 500 300 / 1300 1100 / 1100 Balance 4300 / 4800 3690.0 / 2810.0 -860 / -860 Lungs: Clear to auscultation, Normal air movement Abdomen: Bowel Sounds Present, Soft, - - Slight fullness right lower quadrant, minimal if any tenderness, distinct mass not palpable Microbiology Past 72 Hours 03/12/20 21:47 Urine, Clean Catch Urine Culture - Final Culture exhibits no growth. Laboratory Results 03/16/20 07:50: ESR 23 03/16/20 07:50: C-React Prot Ext Range 117.00 H 03/16/20 07:50: B-Natriuretic Peptide 635.7 H 03/16/20 07:50: c-ANCA Antibody Pending, p-ANCA Antibody Pending Current Medications Acetaminophen (Acetaminophen 325 Mg Tablet) 650 mg PO Q6H PRN PRN PRN Reason: Pain Score 1-10/Temp > 100.7 F Last Admin: 03/15/20 02:48 Dose: 650 mg Documented by: Enoxaparin Sodium (Enoxaparin 40 Mg/0.4 Ml Syringe) 40 mg SC DAILY [facility] Last Admin: 03/16/20 18:20 Dose: 40 mg Documented by: Sodium Chloride () 250 mls @ 15 mls/hr IV .[id number] PRN PRN Reason: Saline Flush Last Infusion: 03/14/20 13:00 Dose: Infused Documented by: Sodium Chloride () 250 mls @ 15 mls/hr IV .[id number] PRN PRN Reason: Additional IVPB Infusion Sodium Chloride () 1,000 mls @ 75 mls/hr IV .[id number] [facility] Last Admin: 03/16/20 21:59 Dose: 75 mls/hr Documented by: Methylprednisolone (Methylprednisolone 40 Mg/Ml Vial) 40 mg IV Q8 [facility] Last Admin: 03/17/20 05:16 Dose: 40 mg Documented by: Morphine Sulfate (Morphine 2 Mg/Ml Syringe) 2 mg IV Q3H PRN PRN PRN Reason: breakthrough pain 4-10 Ondansetron HCl (Ondansetron 4 Mg/2 Ml Vial) 4 mg IV Q6H PRN PRN PRN Reason: NAUSEA/VOMITING Last Admin: 03/15/20 15:20 Dose: 4 mg Documented by: Oxycodone HCl (Oxycodone 5 Mg Tablet) 5 mg PO Q4H PRN PRN PRN Reason: Pain Score 4-5 Last Admin: 03/13/20 14:44 Dose: 5 mg Documented by: Oxycodone HCl (Oxycodone 5 Mg Tablet) 10 mg PO Q4H PRN PRN PRN Reason: Pain Score 6-10 Pantoprazole Sodium (Pantoprazole Sodium 40 Mg Tablet) 40 mg PO DAILY [facility] Last Admin: 03/16/20 10:46 Dose: 40 mg Documented by: Sodium Chloride (0.9% Saline Lock 10 Ml Syringe) 10 - 40 ml IV UD PRN PRN Reason: SALINE FLUSH Last Admin: 03/15/20 15:20 Dose: 10 ml Documented by: Medical Necessity - Tobacco Use Smoking Status: Never smoker Assessment/Plan All Active Problems (Last Reviewed 03/12/20 @ 16:[address] Manohar Dupree, DO) Enterocolitis (Acute) Dehydration (Acute) Tachycardia (Acute) Diarrhea (Acute) Abdominal pain (Acute) General improvement is noted. We will advance to full liquid diet and the patient has been encouraged to eat as tolerated I will add Carafate to her regimen because of the bile staining of the stomach identified yesterday. It is of note that the patient received a sizable dose of Lasix yesterday. Her echocardiogram did not show dysfunction. She was noted to have pleural effusion as already commented upon via the CT. She has no signs of a surgical abdomen at this setting. Currently I would recommend a course of steroids. If the patient is able to improve her oral intake then I would recommend an outpatient barium small bowel follow-through. I would not attempt that examination at this time for fear of aggravating potential small bowel obstruction. The pleural effusions and ascites likely secondary to very aggressive fluid resuscitation. We will continue to moderate IV fluids. We will continue to follow. I am not anticipating surgical intervention at this setting. Morning laboratory and endoscopic biopsy results pending Jason Madrigal M.D., F.A.C.S.
[2020-03-17 06:10] LABS: Absolute Lymphocyte Count 0.72 X10^3/uL (0.83-4.51); Absolute Neutrophil Count 7.6 X10^3/uL (2.0-7.7); Basophil# 0.02 X10^3/uL; Basophil% 0.2 % (0-1); Hematocrit 33.5 % (37-47); Hemoglobin 11.6 g/dL (12.0-15.0); Lymphocyte # 0.72 X10^3/ul (4.0); Lymphocyte % 8.2 % (19-41); Mean Corp Hgb Conc 34.6 g/dL (32-36); Mean Corpuscular Hgb 30.2 pg (27.0-32.0); Mean Corpuscular Volume 87.2 fL (81-99); Mean Platelet Vol. 9.2 fl (6.2-12.0); Monocyte# 0.22 X10^3/uL; Monocyte% 2.5 % (0-10); NRBC Flagged by Analyzer 0 % (0-5); Neutrophil # 7.56 X10^3/uL (2.7-7.7); Neutrophil % 85.8 % (47-70); Platelet Count 269 K/mm3 (150-450); RBC Distribution Width CV 12.8 % (11.6-14.6); RBC Distribution Width SD 40.7 fl (35.1-43.9); Red Blood Count 3.84 M/mm3 (4.2-5.4); White Blood Count 8.8 K/mm3 (4.4-11.0)
[2020-03-17 06:44] LABS: ALB/GLOB Ratio 0.6 RATIO (0.9-2.4); AST(SGOT) 40 U/L (15-37); Alanine Aminotransfer ALT/SGPT 22 U/L (13-56); Albumin, Serum 2.3 g/dL (3.2-5.0); Alkaline Phosphatase 73 U/L (45-117); Anion Gap 13 (5-15); BUN 9 mg/dL (7-18); BUN/Creat Ratio 13.4 RATIO (10-20); Calcium,Total 6.8 mg/dL (8.5-10.1); Chloride 108 mmol/L (98-107); Creatinine, Serum 0.67 mg/dL (0.55-1.02); EST Glomerular Filtration Rate 90 mL/min (>60); Est Glom Filt Rate - Afr Amer 109 mL/min (>60); Estimated Creatinine Clearance 39.67 ml/min; Globulin 3.6 g/dL (2.2-4.2); Glucose 127 mg/dL (74-106); Magnesium 1.9 mg/dL (1.6-2.6); Phosphorus 1.8 mg/dL (2.5-4.9); Potassium 2.6 mmol/L (3.5-5.1); Protein, Total 5.9 g/dL (6.4-8.2); Sodium Level 140 mmol/L (136-145)
[2020-03-17] MEDS: Sucralfate 1 GM Tablet PO ×4 (06:51→22:19)
[2020-03-17 08:00] VITALS: BP 141/71; PULSE 65; RESP 16; TEMP 36.9; O2SAT 96
[2020-03-17] MEDS: Enoxaparin 40 MG/0.4 ML Syringe SC (08:07)
[2020-03-17] MEDS: Pantoprazole Sodium 40 MG Tablet PO (08:07)
[2020-03-17] MEDS: Potassium Chloride 10mEq/100mL 10 MEQ/100 ML IV.SOLN. 100 MEQ IV BOLUS (08:20)
--- NOTE | 2020-03-17 09:31 | PCM.PN.HOSP ---
Patient Problems: Active and Suspected Problems (Last Reviewed 03/12/20 @ 16:[address] Manohar Dupree, DO) Enterocolitis (Acute) Dehydration (Acute) Tachycardia (Acute) Diarrhea (Acute) Abdominal pain (Acute) Objective: Patient is sitting in the chair. Denies abdominal pain. Able to tolerate clear liquid and diet advanced to full liquid. Passing flatus. Had oatmeal in the morning. Physical exam General: Alert, Oriented x3, Cooperative HEENT: Atraumatic, PERRLA, EOMI, Normocephalic Oral: No Gingival or Mucosal Lesions/ Ulcerations Neck: Supple, No JVD, Negative Carotid Bruits Lungs: Air entry diminished in bilateral lung bases, right more than left, bilateral pleural effusion. No crepitation/rhonchi Cardiovascular: Regular rate, Regular Rhythm, Normal S1, Normal S2, No murmurs Abdomen: Bowel Sounds Present, Soft, Non Tender, Non-Distended. Right lower quadrant weak mass palpable. : No renal angle tenderness. No suprapubic tenderness. Extremities: No edema, Capillary Refill Less than 3 Seconds Skin: No rashes, No breakdown Musculoskeletal: No Tenderness to Palpation of Joints or Extremities Neurological: Cranial nerves II-XII grossly intact, Deep Tendon Reflexes 2+/4 and Symmetrical, Neuro grossly intact Psych/Mental Status: Normal Affect, Appropriate. Vitals/I&O's: Vital Signs Temp Pulse Resp BP Pulse Ox 98.7 F 73 16 136/63 H 98 03/16/20 14:02 03/16/20 14:02 03/16/20 14:02 03/16/20 14:02 03/16/20 14:02 Oxygen Flow Rate (L/min) 2 Oxygen Delivery Method Room Air Weight: 119 lb 7.849 oz Body Mass Index (BMI) 20.5 Intake and Output for Last 24 Hours 03/15/20 03/16/20 03/17/20 23:59 23:59 23:59 Intake Total 4800 / 5300 3990.0 / 4110.0 966.75 / 966.75 Output Total 500 / 500 300 / 1300 1200 / 1200 Balance 4300 / 4800 3690.0 / 2810.0 -233.25 / -233.25 Microbiology Past 72 Hours 03/12/20 21:47 Urine, Clean Catch Urine Culture - Final Culture exhibits no growth. Laboratory Results 03/16/20 07:50: B-Natriuretic Peptide 635.7 H 03/16/20 07:50: c-ANCA Antibody Pending, p-ANCA Antibody Pending 03/17/20 06:00: WBC 8.8, RBC 3.84 L, Hgb 11.6 L, Hct 33.5 L, MCV 87.2 D, MCH 30.2, MCHC 34.6 D, RDW Std Deviation 40.7, RDW Coeff of Thee 12.8, Plt Count 269, MPV 9.2, Immature Gran % (Auto) 3.300 H, Neut % (Auto) 85.8 H, Lymph % (Auto) 8.2 L, [place] % (Auto) 2.5, Eos % (Auto) 0.0, Baso % (Auto) 0.2, Absolute Neuts (auto) 7.6, Absolute Lymphs (auto) 0.72 L, Nucleated RBC % 0 03/17/20 06:00: Sodium 140, Potassium 2.6 L*, Chloride 108 H, Carbon Dioxide 19.0 L, Anion Gap 13, BUN 9, Creatinine 0.67, Estim Creat Clear Calc 39.67, Est GFR (MDRD) Af Amer 109, Est GFR (MDRD) Non-Af 90, BUN/Creatinine Ratio 13.4, Glucose 127 H, Calcium 6.8 L, Phosphorus 1.8 L, Magnesium 1.9, Total Bilirubin 0.50, AST 40 H, ALT 22, Alkaline Phosphatase 73, Total Protein 5.9 L, Albumin 2.3 L, Globulin 3.6, Albumin/Globulin Ratio 0.6 L Current Medications Acetaminophen (Acetaminophen 325 Mg Tablet) 650 mg PO Q6H PRN PRN PRN Reason: Pain Score 1-10/Temp > 100.7 F Last Admin: 03/15/20 02:48 Dose: 650 mg Documented by: Enoxaparin Sodium (Enoxaparin 40 Mg/0.4 Ml Syringe) 40 mg SC DAILY [facility] Last Admin: 03/17/20 08:07 Dose: 40 mg Documented by: Sodium Chloride () 250 mls @ 15 mls/hr IV .[id number] PRN PRN Reason: Saline Flush Last Infusion: 03/17/20 08:22 Dose: 0 mls/hr Documented by: Sodium Chloride () 250 mls @ 15 mls/hr IV .[id number] PRN PRN Reason: Additional IVPB Infusion Potassium Chloride () 10 meq in 100 mls @ 100 mls/hr IV BOLUS Q1H [facility] Stop: 03/17/20 10:29 Last Admin: 03/17/20 08:20 Dose: 100 mls/hr Documented by: Potassium Phosphate 21 mm/ (Sodium Chloride) 257 mls @ 84 mls/hr IV X1 ONE Stop: 03/17/20 11:03 Methylprednisolone (Methylprednisolone 40 Mg/Ml Vial) 40 mg IV Q8 [facility] Last Admin: 03/17/20 05:16 Dose: 40 mg Documented by: Morphine Sulfate (Morphine 2 Mg/Ml Syringe) 2 mg IV Q3H PRN PRN PRN Reason: breakthrough pain 4-10 Ondansetron HCl (Ondansetron 4 Mg/2 Ml Vial) 4 mg IV Q6H PRN PRN PRN Reason: NAUSEA/VOMITING Last Admin: 03/15/20 15:20 Dose: 4 mg Documented by: Oxycodone HCl (Oxycodone 5 Mg Tablet) 5 mg PO Q4H PRN PRN PRN Reason: Pain Score 4-5 Last Admin: 03/13/20 14:44 Dose: 5 mg Documented by: Oxycodone HCl (Oxycodone 5 Mg Tablet) 10 mg PO Q4H PRN PRN PRN Reason: Pain Score 6-10 Pantoprazole Sodium (Pantoprazole Sodium 40 Mg Tablet) 40 mg PO DAILY [facility] Last Admin: 03/17/20 08:07 Dose: 40 mg Documented by: Sodium Chloride (0.9% Saline Lock 10 Ml Syringe) 10 - 40 ml IV UD PRN PRN Reason: SALINE FLUSH Last Admin: 03/15/20 15:20 Dose: 10 ml Documented by: Sucralfate (Sucralfate 1 Gm Tablet) 1 gm PO 1HR_ACHS [facility] Last Admin: 03/17/20 06:51 Dose: 1 gm Documented by: Medical Necessity - Tobacco Use Smoking Status: Never smoker Assessment/Plan All Active Problems (Last Reviewed 03/12/20 @ 16:[address] Manohar Dupree DO) Enterocolitis (Acute) Dehydration (Acute) Tachycardia (Acute) Diarrhea (Acute) Abdominal pain (Acute) This is a 79-year-old female was admitted with abdominal pain, diarrhea since March [address] abdomen on March 09 without oral contrast reported no dilated loops of bowel. 1. Acute right lower quadrant abdominal pain with suspicion of Crohn's disease: Patient has palpable right lower quadrant mass. Infectious work-up including C. difficile, enteric bacteriology panel, rapid SARS-CoV-2 antigen are negative. Urine culture negative. Has EGD and colonoscopy in the morning which does not explain abdominal pain. 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 Normal duodenum. Colonoscopy reported hemorrhoids with redundant colon but no abnormal mucosa up to 10 cm beyond terminal ileum. Discussed with the surgeon Dr. Jason Madrigal and CT abdomen with oral contrast was ordered but unfortunately patient vomited oral contrast and repeat CT was similar to without oral contrast with limited assessment. It reported bilateral pleural effusion right greater than left with atelectasis and perihepatic ascites. Empirically started on IV Solu-Medrol. Antibiotic Zosyn was discontinued as infectious work-up was negative and patient has been afebrile with no leukocytosis. 03/17: Patient had 1 dose of Lasix yesterday. Still +18 L of net fluid balance. 2D echo reported normal LV size and systolic function, normal left and right atria. Normal RV size and systolic function mild TR, RVSP 35 mmHg and moderate pleural effusion. At this time 1 dose of more Lasix 40 mg IV ordered to balance intake and output. Patient on full liquid. Will discontinue supplemental IV fluid. Incentive spirometry. Patient is not short of breath or hypoxic and pleural effusion reported a small bilateral right more than left. Continue Solu-Medrol. Surgeon Dr. Madrigal recommends outpatient barium and small bowel follow-through. Mild hypokalemia and hypophosphatemia: Potassium and phosphate are getting replaced. Monitor electrolytes. Serum magnesium normal 2. Bilateral pleural effusion, right more than left and perihepatic ascites: Patient denies any history of liver disease, chronic lung disease or heart disease. BNP elevated 635. 2D echo is ordered. IV fluid decreased to 75 mill per hour. Lasix 40 mg IV test dose given. Patient is not hypoxic, tachypneic or short of breath. 2. History of sinus tachycardia: Currently normal sinus rhythm at 73 bpm. 3. VTE prophylaxis with low molecular weight heparin. Total time of the visit including total time spent in counseling or coordination of care, (more than 50% of the total time, spent in obtaining medical information from nurses and other ancillary care providers,explaining to the patient about labs, imaging, diagnosis and management), discussion with surgeon and explaining to patient and her , review of labs and imaging is 30 minutes. Microbiology Past 72 Hours 03/12/20 21:47 Urine, Clean Catch Urine Culture - Final Culture exhibits no growth. Laboratory Results 03/16/20 07:50: c-ANCA Antibody Pending, p-ANCA Antibody Pending 03/17/20 06:00: WBC 8.8, RBC 3.84 L, Hgb 11.6 L, Hct 33.5 L, MCV 87.2 D, MCH 30.2, MCHC 34.6 D, RDW Std Deviation 40.7, RDW Coeff of Thee 12.8, Plt Count 269, MPV 9.2, Immature Gran % (Auto) 3.300 H, Neut % (Auto) 85.8 H, Lymph % (Auto) 8.2 L, [place] % (Auto) 2.5, Eos % (Auto) 0.0, Baso % (Auto) 0.2, Absolute Neuts (auto) 7.6, Absolute Lymphs (auto) 0.72 L, Nucleated RBC % 0 03/17/20 06:00: Sodium 140, Potassium 2.6 L*, Chloride 108 H, Carbon Dioxide 19.0 L, Anion Gap 13, BUN 9, Creatinine 0.67, Estim Creat Clear Calc 39.67, Est GFR (MDRD) Af Amer 109, Est GFR (MDRD) Non-Af 90, BUN/Creatinine Ratio 13.4, Glucose 127 H, Calcium 6.8 L, Phosphorus 1.8 L, Magnesium 1.9, Total Bilirubin 0.50, AST 40 H, ALT 22, Alkaline Phosphatase 73, Total Protein 5.9 L, Albumin 2.3 L, Globulin 3.6, Albumin/Globulin Ratio 0.6 L Clinical Impression(s) from Imaging Lit Abdomen CT 03/16/20 07:10 IMPRESSION: Limited study. Limited assessment of the terminal ileum and right lower quadrant. Small amount of perihepatic fluid as well as fluid within the pelvis. Bilateral pleural effusions right greater than left with bibasilar atelectasis and/or infiltrates. Inpatient E&M: 88116 Subs Hosp L2
[2020-03-17] MEDS: Potassium Chloride 10mEq/100mL 10 MEQ/100 ML IV.SOLN. 80 MEQ IV BOLUS (09:57)
[2020-03-17] MEDS: Potassium Chloride 10mEq/100mL 10 MEQ/100 ML IV.SOLN. 70 MEQ IV BOLUS (11:49)
[2020-03-17] MEDS: Furosemide 40 MG/4 ML Vial IV (13:33)
[2020-03-17 15:20] VITALS: BP 132/74; PULSE 66; RESP 18; TEMP 36.3; O2SAT 98
[2020-03-17 16:06] LABS: Potassium 2.7 mmol/L (3.5-5.1)
[2020-03-17 16:10] LABS: Cytoplasmic Ab (C-ANCA) <1:20 titer (Neg:<1:20)
[2020-03-17 16:31] LABS: Perinuclear Ab (P-ANCA) <1:20 titer (Neg:<1:20)
[2020-03-17 19:40] VITALS: RESP 18; O2SAT 96
[2020-03-17 22:06] VITALS: BP 142/87; PULSE 60; RESP 16; TEMP 37; O2SAT 97
[2020-03-17] MEDS: 0.9% Saline Lock 10 ML Syringe IV (22:20)
[2020-03-18 04:05] VITALS: BP 142/81; PULSE 63; RESP 16; TEMP 36.6; O2SAT 96
--- NOTE | 2020-03-18 06:05 | PCM.PN.SRG ---
Patient Problems: Active and Suspected Problems (Last Reviewed 03/12/20 @ 16:[address] Manohar Dupree, DO) Enterocolitis (Acute) Dehydration (Acute) Tachycardia (Acute) Diarrhea (Acute) Abdominal pain (Acute) Subjective: Patient claims that she had a good day yesterday and 2 later in the day 5:30 PM. She states that she was urinating and then noted a small amount of rust colored material within the toilet. She claims that she had a small bit of collapse last night a couple bites of food. She complains of sharp shooting waxing and waning pain of the abdomen. She does not clearly identify it as gas pains. At rest currently she has just mild discomfort. She generally points to her entire abdomen. She claims that she is not currently nauseated. - Physical Exam Vitals/I&O's: Vital Signs Temp Pulse Resp BP Pulse Ox 97.8 F 63 16 142/81 H 96 03/18/20 04:05 03/18/20 04:05 03/18/20 04:05 03/18/20 04:05 03/18/20 04:05 Oxygen Flow Rate (L/min) 2 Oxygen Delivery Method Room Air Weight: 119 lb 7.849 oz Body Mass Index (BMI) 20.5 Intake and Output for Last 24 Hours 03/16/20 03/17/20 03/18/20 23:59 23:59 23:59 Intake Total 3990.0 / 4110.0 2315.75 / 2315.75 763.3333 / 763.3333 Output Total 300 / 1300 2250 / 2250 400 / 400 Balance 3690.0 / 2810.0 65.75 / 65.75 363.3333 / 363.3333 General: Alert, Oriented x3, Cooperative, No apparent distress Lungs: Clear to auscultation, Normal air movement Cardiovascular: Regular rate, Regular Rhythm Abdomen: Bowel Sounds Present, Soft, - - Fullness noted right lower quadrant, very minimal tenderness to deep palpation Microbiology Past 72 Hours 03/12/20 21:47 Urine, Clean Catch Urine Culture - Final Culture exhibits no growth. Laboratory Results 03/16/20 07:50: c-ANCA Antibody <1:20, Atypical p-ANCA <1:20, p-ANCA Antibody <1:20 03/17/20 06:00: WBC 8.8, RBC 3.84 L, Hgb 11.6 L, Hct 33.5 L, MCV 87.2 D, MCH 30.2, MCHC 34.6 D, RDW Std Deviation 40.7, RDW Coeff of Thee 12.8, Plt Count 269, MPV 9.2, Immature Gran % (Auto) 3.300 H, Neut % (Auto) 85.8 H, Lymph % (Auto) 8.2 L, [place] % (Auto) 2.5, Eos % (Auto) 0.0, Baso % (Auto) 0.2, Absolute Neuts (auto) 7.6, Absolute Lymphs (auto) 0.72 L, Nucleated RBC % 0 03/17/20 06:00: Sodium 140, Potassium 2.6 L*, Chloride 108 H, Carbon Dioxide 19.0 L, Anion Gap 13, BUN 9, Creatinine 0.67, Estim Creat Clear Calc 39.67, Est GFR (MDRD) Af Amer 109, Est GFR (MDRD) Non-Af 90, BUN/Creatinine Ratio 13.4, Glucose 127 H, Calcium 6.8 L, Phosphorus 1.8 L, Magnesium 1.9, Total Bilirubin 0.50, AST 40 H, ALT 22, Alkaline Phosphatase 73, Total Protein 5.9 L, Albumin 2.3 L, Globulin 3.6, Albumin/Globulin Ratio 0.6 L 03/17/20 15:05: Potassium 2.7 L* Current Medications Acetaminophen (Acetaminophen 325 Mg Tablet) 650 mg PO Q6H PRN PRN PRN Reason: Pain Score 1-10/Temp > 100.7 F Last Admin: 03/15/20 02:48 Dose: 650 mg Documented by: Enoxaparin Sodium (Enoxaparin 40 Mg/0.4 Ml Syringe) 40 mg SC DAILY [facility] Last Admin: 03/17/20 08:07 Dose: 40 mg Documented by: Sodium Chloride () 250 mls @ 15 mls/hr IV .[id number] PRN PRN Reason: Saline Flush Last Infusion: 03/17/20 13:44 Dose: Infused Documented by: Potassium Chloride () 10 meq in 100 mls @ 100 mls/hr IV BOLUS Q1H [facility] Stop: 03/18/20 09:14 Methylprednisolone (Methylprednisolone 40 Mg/Ml Vial) 40 mg IV Q8 [facility] Last Admin: 03/17/20 22:22 Dose: 40 mg Documented by: Morphine Sulfate (Morphine 2 Mg/Ml Syringe) 2 mg IV Q3H PRN PRN PRN Reason: breakthrough pain 4-10 Ondansetron HCl (Ondansetron 4 Mg/2 Ml Vial) 4 mg IV Q6H PRN PRN PRN Reason: NAUSEA/VOMITING Last Admin: 03/15/20 15:20 Dose: 4 mg Documented by: Oxycodone HCl (Oxycodone 5 Mg Tablet) 5 mg PO Q4H PRN PRN PRN Reason: Pain Score 4-5 Last Admin: 03/13/20 14:44 Dose: 5 mg Documented by: Oxycodone HCl (Oxycodone 5 Mg Tablet) 10 mg PO Q4H PRN PRN PRN Reason: Pain Score 6-10 Pantoprazole Sodium (Pantoprazole Sodium 40 Mg Tablet) 40 mg PO DAILY [facility] Last Admin: 03/17/20 08:07 Dose: 40 mg Documented by: Potassium Chloride (Potassium Chloride 20 Meq Tablet) 40 meq PO DAILYCM [facility] Stop: 03/20/20 08:01 Sodium Chloride (0.9% Saline Lock 10 Ml Syringe) 10 - 40 ml IV UD PRN PRN Reason: SALINE FLUSH Last Admin: 03/17/20 22:20 Dose: 10 ml Documented by: Sucralfate (Sucralfate 1 Gm Tablet) 1 gm PO 1HR_ACHS [facility] Last Admin: 03/17/20 22:19 Dose: 1 gm Documented by: Medical Necessity - Tobacco Use Smoking Status: Never smoker Assessment/Plan All Active Problems (Last Reviewed 03/12/20 @ 16:[address] Manohar Dupree, DO) Enterocolitis (Acute) Dehydration (Acute) Tachycardia (Acute) Diarrhea (Acute) Abdominal pain (Acute) The patient appears to be improving diet was being advanced now again she is stalling with complaints of a nonspecific generalized abdominal pain. She notes a rust colored material per rectum but it is very difficult to know the importance of that as she has had a combined upper and lower endoscopy with multiple biopsies. On her presentation despite the profuse diarrhea she had no blood per rectum. I have made the patient n.p.o. I will again try to get a contrasted small bowel follow-through. I have discussed with the patient potential for a diagnostic laparoscopy/laparotomy. I have not been in favor of this procedure as she has not had findings that would suggest an acute surgical abdomen however she does not appear to be completely resolving. It is very possible however that an exploration would be completely nondiagnostic. The patient has received now 2 large doses of Lasix. She was significantly hypokalemic yesterday. I will not be able to operate without a potassium level greater than 3. Morning laboratory is pending. I will reinitiate IV supplementation. The patient has had an opportunity to ask and have questions answered. We will continue to try to assist as indicated. It is of additional note that the biopsies obtained from the combined upper and lower endoscopy demonstrated some mild gastritis and mild reflux esophagitis with benign gastric fundic polyp and H. pylori negative. Ileum and cecal and random colonic biopsies normal. Increase WBC likely secondary to steroids Jason Madrigal M.D., F.A.C.S.
[2020-03-18] MEDS: Potassium Chloride 10mEq/100mL 10 MEQ/100 ML IV.SOLN. 100 MEQ IV BOLUS ×3 (06:32→11:40)
[2020-03-18] MEDS: Sucralfate 1 GM Tablet PO ×3 (06:35→21:07)
[2020-03-18 07:04] LABS: Absolute Lymphocyte Count 0.66 X10^3/uL (0.83-4.51); Absolute Neutrophil Count 12.9 X10^3/uL (2.0-7.7); Basophil# 0.02 X10^3/uL; Basophil% 0.1 % (0-1); Hematocrit 33.1 % (37-47); Hemoglobin 11.4 g/dL (12.0-15.0); Lymphocyte # 0.66 X10^3/ul (4.0); Lymphocyte % 4.6 % (19-41); Mean Corp Hgb Conc 34.4 g/dL (32-36); Mean Corpuscular Volume 87.1 fL (81-99); Mean Platelet Vol. 9.6 fl (6.2-12.0); Monocyte# 0.63 X10^3/uL; Monocyte% 4.4 % (0-10); NRBC Flagged by Analyzer 0 % (0-5); Neutrophil # 12.94 X10^3/uL (2.7-7.7); Neutrophil % 89.4 % (47-70); Platelet Count 278 K/mm3 (150-450); RBC Distribution Width CV 13.1 % (11.6-14.6); RBC Distribution Width SD 41.3 fl (35.1-43.9); White Blood Count 14.5 K/mm3 (4.4-11.0)
[2020-03-18 07:35] VITALS: BP 160/75; PULSE 67; RESP 16; TEMP 36.6; O2SAT 95
[2020-03-18 07:43] LABS: Anion Gap 7 (5-15); BUN 20 mg/dL (7-18); BUN/Creat Ratio 30.2 RATIO (10-20); Chloride 108 mmol/L (98-107); Creatinine, Serum 0.66 mg/dL (0.55-1.02); EST Glomerular Filtration Rate 92 mL/min (>60); Est Glom Filt Rate - Afr Amer 111 mL/min (>60); Estimated Creatinine Clearance 39.67 ml/min; Glucose 139 mg/dL (74-106); Magnesium 1.8 mg/dL (1.6-2.6); Phosphorus 3.1 mg/dL (2.5-4.9); Potassium 3.8 mmol/L (3.5-5.1); Sodium Level 138 mmol/L (136-145)
--- NOTE | 2020-03-18 08:45 | RAD_ITS ---
PROCEDURE: SMALL BOWEL SERIES DATE OF EXAMINATION: 03/18/2020. INDICATION: Female, 79 years old. Suspected Crohn''s disease. PHYSICIAN: Graham Rivera M.D. TECHNIQUE: Radiographic and fluoroscopic images were taken of the small intestine following the ingestion of barium. COMPARISON: None. FINDINGS: A preliminary supine KUB was obtained. There is an unremarkable bowel gas pattern. Fecal material is present throughout the colon. Phleboliths are present within the pelvis. The lung bases are unremarkable. Degenerative changes of the lumbar spine. The patient orally ingested approximately 12 ounces of thin barium Normal visualized fundus, body, and antrum of the stomach. Normal duodenal bulb, C-loop, and proximal jejunum. Normal visualized mucosal folds of the jejunum and ileum. There are no demonstrated dilatations, strictures, or masses of the small intestine. There is no mass displacement of the loops of small intestine. There is a normal motor pattern with barium reaching the colon within approximately 90 minutes. Spot films under fluoroscopic observation demonstrated a normal terminal ileum and ileocecal valve. RAD/Small Bowel Series Only IMPRESSION: Normal small bowel series. Electronically Signed: Graham Rivera, at 15:27 EST , Service support ,
[2020-03-18] MEDS: 0.9% Saline Lock 10 ML Syringe IV ×3 (08:49→16:40)
[2020-03-18] MEDS: Ondansetron 4 MG/2 ML Vial IV (08:49)
--- NOTE | 2020-03-18 13:07 | PCM.PN.HOSP ---
Patient Problems: Active and Suspected Problems (Last Reviewed 03/12/20 @ 16:[address] Manohar Dupree, DO) Enterocolitis (Acute) Dehydration (Acute) Tachycardia (Acute) Diarrhea (Acute) Abdominal pain (Acute) Reason for Visit: Follow-up for abdominal pain and diarrhea with suspicion of Crohn's disease. Objective: Patient blood pressure is steadily going up, currently systolic 160. Her blood pressure was 110/94, 129/69 on 03/16/2020 before starting Solu-Medrol. No fever. Heart rate in 60s. No hypoxia. Patient had transient abdominal pain right lower quadrant yesterday night, unclear whether it was a gas pain. Patient also had 3 liquid to semisolid, greenish colored stool. No obvious blood when I saw the stool but stool for occult blood is sent. Patient returned from Barium x-ray. Physical exam General: Alert, Oriented x3, Cooperative HEENT: Atraumatic, PERRLA, EOMI, Normocephalic Oral: No Gingival or Mucosal Lesions/ Ulcerations Neck: Supple, No JVD, Negative Carotid Bruits Lungs: Air entry diminished in bilateral lung bases. No crepitation/rhonchi Cardiovascular: Regular rate, Regular Rhythm, Normal S1, Normal S2, No murmurs Abdomen: Bowel Sounds hyperactive, Soft, Non Tender, Non-Distended. Right lower quadrant lump is vaguely palpable, less clear than 2 days ago : No renal angle tenderness. No suprapubic tenderness. Extremities: No edema, Capillary Refill Less than 3 Seconds Skin: No rashes, No breakdown Musculoskeletal: No Tenderness to Palpation of Joints or Extremities Neurological: Cranial nerves II-XII grossly intact, Deep Tendon Reflexes 2+/4 and Symmetrical, Neuro grossly intact Psych/Mental Status: Normal Affect, Appropriate. Vitals/I&O's: Vital Signs Temp Pulse Resp BP Pulse Ox 97.9 F 67 16 160/75 H 95 03/18/20 07:35 03/18/20 07:35 03/18/20 07:35 03/18/20 07:35 03/18/20 07:35 Oxygen Flow Rate (L/min) 2 Oxygen Delivery Method Room Air Weight: 119 lb 7.849 oz Body Mass Index (BMI) 20.5 Intake and Output for Last 24 Hours 03/16/20 03/17/20 03/18/20 23:59 23:59 23:59 Intake Total 3990.0 / 4110.0 2315.75 / 2315.75 1163.3333 / 1163.3333 Output Total 300 / 1300 2250 / 2250 1100 / 1100 Balance 3690.0 / 2810.0 65.75 / 65.75 63.3333 / 63.3333 Laboratory Results 03/16/20 07:50: c-ANCA Antibody <1:20, Atypical p-ANCA <1:20, p-ANCA Antibody <1:20 03/17/20 15:05: Potassium 2.7 L* 03/18/20 06:27: WBC 14.5 H, RBC 3.80 L, Hgb 11.4 L, Hct 33.1 L, MCV 87.1, MCH 30.0, MCHC 34.4, RDW Std Deviation 41.3, RDW Coeff of Thee 13.1, Plt Count 278, MPV 9.6, Immature Gran % (Auto) 1.500 H, Neut % (Auto) 89.4 H, Lymph % (Auto) 4.6 L, [place] % (Auto) 4.4, Eos % (Auto) 0.0, Baso % (Auto) 0.1, Absolute Neuts (auto) 12.9 H, Absolute Lymphs (auto) 0.66 L, Nucleated RBC % 0 03/18/20 06:27: Sodium 138, Potassium 3.8, Chloride 108 H, Carbon Dioxide 23.0, Anion Gap 7, BUN 20 H, Creatinine 0.66, Estim Creat Clear Calc 39.67, Est GFR (MDRD) Af Amer 111, Est GFR (MDRD) Non-Af 92, BUN/Creatinine Ratio 30.2 H, Glucose 139 H, Calcium 7.0 L, Phosphorus 3.1, Magnesium 1.8 Current Medications Acetaminophen (Acetaminophen 325 Mg Tablet) 650 mg PO Q6H PRN PRN PRN Reason: Pain Score 1-10/Temp > 100.7 F Last Admin: 03/15/20 02:48 Dose: 650 mg Documented by: Enoxaparin Sodium (Enoxaparin 40 Mg/0.4 Ml Syringe) 40 mg SC DAILY [facility] Last Admin: 03/17/20 08:07 Dose: 40 mg Documented by: Sodium Chloride () 250 mls @ 15 mls/hr IV .[id number] PRN PRN Reason: Saline Flush Last Infusion: 03/17/20 13:44 Dose: Infused Documented by: Methylprednisolone (Methylprednisolone 40 Mg/Ml Vial) 40 mg IV Q8 [facility] Last Admin: 03/18/20 06:33 Dose: 40 mg Documented by: Morphine Sulfate (Morphine 2 Mg/Ml Syringe) 2 mg IV Q3H PRN PRN PRN Reason: breakthrough pain 4-10 Ondansetron HCl (Ondansetron 4 Mg/2 Ml Vial) 4 mg IV Q6H PRN PRN PRN Reason: NAUSEA/VOMITING Last Admin: 03/18/20 08:49 Dose: 4 mg Documented by: Oxycodone HCl (Oxycodone 5 Mg Tablet) 5 mg PO Q4H PRN PRN PRN Reason: Pain Score 4-5 Last Admin: 03/13/20 14:44 Dose: 5 mg Documented by: Oxycodone HCl (Oxycodone 5 Mg Tablet) 10 mg PO Q4H PRN PRN PRN Reason: Pain Score 6-10 Pantoprazole Sodium (Pantoprazole Sodium 40 Mg Tablet) 40 mg PO DAILY [facility] Last Admin: 03/18/20 11:54 Dose: Not Given Documented by: Potassium Chloride (Potassium Chloride 20 Meq Tablet) [facility] Stop: 03/20/20 08:01 Last Admin: 03/18/20 11:54 Dose: Not Given Documented by: Sodium Chloride (0.9% Saline Lock 10 Ml Syringe) 10 - 40 ml IV UD PRN PRN Reason: SALINE FLUSH Last Admin: 03/18/20 11:42 Dose: 10 ml Documented by: Sucralfate (Sucralfate 1 Gm Tablet) 1 gm PO 1HR_ACHS [facility] Last Admin: 03/18/20 11:54 Dose: Not Given Documented by: Medical Necessity - Tobacco Use Smoking Status: Never smoker Assessment/Plan All Active Problems (Last Reviewed 03/12/20 @ 16:[address] Manohar Dupree, DO) Enterocolitis (Acute) Dehydration (Acute) Tachycardia (Acute) Diarrhea (Acute) Abdominal pain (Acute) This is a 79-year-old female was admitted with abdominal pain, diarrhea since March [address] abdomen on March 09 without oral contrast reported no dilated loops of bowel. 1. Acute right lower quadrant abdominal pain with suspicion of Crohn's disease: Patient has palpable right lower quadrant mass. Infectious work-up including C. difficile, enteric bacteriology panel, rapid SARS-CoV-2 antigen are negative. Urine culture negative. Has EGD and colonoscopy in the morning which does not explain abdominal pain. 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 Normal duodenum. Colonoscopy reported hemorrhoids with redundant colon but no abnormal mucosa up to 10 cm beyond terminal ileum. Discussed with the surgeon Dr. Jason Madrigal and CT abdomen with oral contrast was ordered but unfortunately patient vomited oral contrast and repeat CT was similar to without oral contrast with limited assessment. It reported bilateral pleural effusion right greater than left with atelectasis and perihepatic ascites. Empirically started on IV Solu-Medrol. Antibiotic Zosyn was discontinued as infectious work-up was negative and patient has been afebrile with no leukocytosis. 03/17: Patient had 1 dose of Lasix yesterday. Still +18 L of net fluid balance. 2D echo reported normal LV size and systolic function, normal left and right atria. Normal RV size and systolic function mild TR, RVSP 35 mmHg and moderate pleural effusion. At this time 1 dose of more Lasix 40 mg IV ordered to balance intake and output. Patient on full liquid. Will discontinue supplemental IV fluid. Incentive spirometry. Patient is not short of breath or hypoxic and pleural effusion reported a small bilateral right more than left. Continue Solu-Medrol. Surgeon Dr. Madrigal recommends outpatient barium and small bowel follow-through. 03/18: Solu-Medrol dose decreased 40 mg every 12 hourly as patient's blood pressure is rising. If okay with surgeon, can change to prednisone 40 mg oral daily. Leukocytosis secondary to steroid. Patient does not need any further Lasix. Autoimmune markers c-ANCA, p-ANCA are negative. Patient had a small bowel series. Report pending. Mild hypokalemia and hypophosphatemia: Potassium and phosphate are getting replaced. Monitor electrolytes. Serum magnesium normal 03/18: Potassium 3.8 normal, magnesium 1.8 phosphorus 3.1 normal. Potassium is getting replaced 2. Bilateral pleural effusion, right more than left and perihepatic ascites: Patient denies any history of liver disease, chronic lung disease or heart disease. BNP elevated 635. 2D echo is ordered. IV fluid decreased to 75 mill per hour. Lasix 40 mg IV test dose given. Patient is not hypoxic, tachypneic or short of breath. 2. History of sinus tachycardia: Currently normal sinus rhythm at 73 bpm. 3. VTE prophylaxis with low molecular weight heparin. Total time of the visit including total time spent in counseling or coordination of care, (more than 50% of the total time, spent in obtaining medical information from nurses and other ancillary care providers,explaining to the patient about labs, imaging, diagnosis and management), discussion with surgeon and explaining to patient and her , review of labs and imaging is 30 minutes. Laboratory Results 03/16/20 07:50: c-ANCA Antibody <1:20, Atypical p-ANCA <1:20, p-ANCA Antibody <1:20 03/17/20 15:05: Potassium 2.7 L* 03/18/20 06:27: WBC 14.5 H, RBC 3.80 L, Hgb 11.4 L, Hct 33.1 L, MCV 87.1, MCH 30.0, MCHC 34.4, RDW Std Deviation 41.3, RDW Coeff of Thee 13.1, Plt Count 278, MPV 9.6, Immature Gran % (Auto) 1.500 H, Neut % (Auto) 89.4 H, Lymph % (Auto) 4.6 L, [place] % (Auto) 4.4, Eos % (Auto) 0.0, Baso % (Auto) 0.1, Absolute Neuts (auto) 12.9 H, Absolute Lymphs (auto) 0.66 L, Nucleated RBC % 0 03/18/20 06:27: Sodium 138, Potassium 3.8, Chloride 108 H, Carbon Dioxide 23.0, Anion Gap 7, BUN 20 H, Creatinine 0.66, Estim Creat Clear Calc 39.67, Est GFR (MDRD) Af Amer 111, Est GFR (MDRD) Non-Af 92, BUN/Creatinine Ratio 30.2 H, Glucose 139 H, Calcium 7.0 L, Phosphorus 3.1, Magnesium 1.8 Clinical Impression(s) from Imaging Lit Abdomen CT 03/16/20 07:10 IMPRESSION: Limited study. Limited assessment of the terminal ileum and right lower quadrant. Small amount of perihepatic fluid as well as fluid within the pelvis. Bilateral pleural effusions right greater than left with bibasilar atelectasis and/or infiltrates. Inpatient E&M: 97530 Subs Hosp L2
[2020-03-18 14:10] VITALS: BP 169/80; PULSE 58; RESP 16; TEMP 36.6; O2SAT 94
--- NOTE | 2020-03-18 16:08 | PCM.PN.BLA ---
Progress Note All bowel follow-through was interpreted as normal. The patient states that she has had a reasonably good day. The last episode of sharp abdominal pain was earlier at 1 AM and none since. No current nausea. Very minimal diffuse abdominal soreness. Patient will be given small dose of MiraLAX to avoid impaction from the barium. We will reinitiate regular diet. If she is able to tolerate then hopeful discharge tomorrow. Definitive diagnosis to her presentation disease not determined at this time. Jason Madrigal M.D., F.A.C.S. STROKE Vital Signs/Narrative: Vital Signs Temp Pulse Resp BP Pulse Ox 03/18/20 14:10 97.8 F 58 L 16 169/80 H 94
[2020-03-18 16:40] VITALS: BP 167/73
[2020-03-18] MEDS: Polyethylene Glycol 3350 17 GM PACKET PO (16:40)
[2020-03-18 21:03] VITALS: BP 140/75; PULSE 62; RESP 18; TEMP 36.7; O2SAT 96
[2020-03-19 03:00] VITALS: BP 150/73; PULSE 58; RESP 16; TEMP 36.9; O2SAT 95
--- NOTE | 2020-03-19 05:57 | PN.SURG_ITS ---
Patient Problems: Active and Suspected Problems (Last Reviewed 03/12/20 @ 16:[address] Manohar Dupree, DO) Enterocolitis (Acute) Dehydration (Acute) Tachycardia (Acute) Diarrhea (Acute) Abdominal pain (Acute) Subjective: Patient denies pain. After the barium small bowel follow-through she has had just a small amount of barium per rectum. She has not moved her bowels since her MiraLAX treatment yesterday afternoon. She was able to tolerate a small supper. She has no current particular complaints. - Physical Exam Vitals/I&O's: Vital Signs Temp Pulse Resp BP Pulse Ox 98.5 F 58 L 16 150/73 H 95 03/19/20 03:00 03/19/20 03:00 03/19/20 03:00 03/19/20 03:00 03/19/20 03:00 Oxygen Flow Rate (L/min) 2 Oxygen Delivery Method Room Air Weight: 119 lb 7.849 oz Body Mass Index (BMI) 20.5 Intake and Output for Last 24 Hours 03/17/20 03/18/20 03/19/20 23:59 23:59 23:59 Intake Total 2315.75 / 2315.75 1513.3333 / 1713.3333 200 / 200 Output Total 2250 / 2250 2100 / 2800 700 / 700 Balance 65.75 / 65.75 -586.6667 / -1086.6667 -500 / -500 Abdomen: Bowel Sounds Present, Soft, Non Tender Microbiology Past 72 Hours 03/17/20 21:05 Stool Stool Occult Blood (DANYA) - Final Occult Blood Positive Laboratory Results 03/18/20 06:27: WBC 14.5 H, RBC 3.80 L, Hgb 11.4 L, Hct 33.1 L, MCV 87.1, MCH 30.0, MCHC 34.4, RDW Std Deviation 41.3, RDW Coeff of Thee 13.1, Plt Count 278, MPV 9.6, Immature Gran % (Auto) 1.500 H, Neut % (Auto) 89.4 H, Lymph % (Auto) 4.6 L, [place] % (Auto) 4.4, Eos % (Auto) 0.0, Baso % (Auto) 0.1, Absolute Neuts (auto) 12.9 H, Absolute Lymphs (auto) 0.66 L, Nucleated RBC % 0 03/18/20 06:27: Sodium 138, Potassium 3.8, Chloride 108 H, Carbon Dioxide 23.0, Anion Gap 7, BUN 20 H, Creatinine 0.66, Estim Creat Clear Calc 39.67, Est GFR (MDRD) Af Amer 111, Est GFR (MDRD) Non-Af 92, BUN/Creatinine Ratio 30.2 H, Glucose 139 H, Calcium 7.0 L, Phosphorus 3.1, Magnesium 1.8 Current Medications Acetaminophen (Acetaminophen 325 Mg Tablet) 650 mg PO Q6H PRN PRN PRN Reason: Pain Score 1-10/Temp > 100.7 F Last Admin: 03/15/20 02:48 Dose: 650 mg Documented by: Enoxaparin Sodium (Enoxaparin 40 Mg/0.4 Ml Syringe) 40 mg SC DAILY [facility] Last Admin: 03/18/20 16:34 Dose: Not Given Documented by: Sodium Chloride () 250 mls @ 15 mls/hr IV .[id number] PRN PRN Reason: Saline Flush Last Infusion: 03/17/20 13:44 Dose: Infused Documented by: Methylprednisolone (Methylprednisolone 40 Mg/Ml Vial) 40 mg IV Q12 [facility] Last Admin: 03/18/20 21:06 Dose: 40 mg Documented by: Morphine Sulfate (Morphine 2 Mg/Ml Syringe) 2 mg IV Q3H PRN PRN PRN Reason: breakthrough pain 4-10 Ondansetron HCl (Ondansetron 4 Mg/2 Ml Vial) 4 mg IV Q6H PRN PRN PRN Reason: NAUSEA/VOMITING Last Admin: 03/18/20 08:49 Dose: 4 mg Documented by: Oxycodone HCl (Oxycodone 5 Mg Tablet) 5 mg PO Q4H PRN PRN PRN Reason: Pain Score 4-5 Last Admin: 03/13/20 14:44 Dose: 5 mg Documented by: Oxycodone HCl (Oxycodone 5 Mg Tablet) 10 mg PO Q4H PRN PRN PRN Reason: Pain Score 6-10 Pantoprazole Sodium (Pantoprazole Sodium 40 Mg Tablet) 40 mg PO DAILY [facility] Last Admin: 03/18/20 11:54 Dose: Not Given Documented by: Potassium Chloride (Potassium Chloride 20 Meq Tablet) [facility] Stop: 03/20/20 08:01 Last Admin: 03/18/20 11:54 Dose: Not Given Documented by: Sodium Chloride (0.9% Saline Lock 10 Ml Syringe) 10 - 40 ml IV UD PRN PRN Reason: SALINE FLUSH Last Admin: 03/18/20 16:40 Dose: 10 ml Documented by: Sucralfate (Sucralfate 1 Gm Tablet) 1 gm PO 1HR_ACHS [facility] Last Admin: 03/18/20 21:07 Dose: 1 gm Documented by: Medical Necessity - Tobacco Use Smoking Status: Never smoker Assessment/Plan All Active Problems (Last Reviewed 03/12/20 @ 16:[address] Manohar Dupree, DO) Enterocolitis (Acute) Dehydration (Acute) Tachycardia (Acute) Diarrhea (Acute) Abdominal pain (Acute) Etiology to the patient's presentation remains unclear. Tentative diagnosis would still remain a viral gastroenteritis. Bacterial enteritis would seem to have been excluded via routine enteric testing. Crohn's disease excluded by combination of EGD with biopsy and colonoscopy with biopsy and intubation of the terminal ileum and small bowel follow-through. Therefore steroid treatment can be ceased. The patient clinically is better and is tolerating an advanced diet. I believe that she is made recovery permitting for discharge. Would recommend routine primary care follow-up. At this time I do not have additional surgical treatment plans. I appreciate the opportunity of assisting with her surgical care Jason Madrigal M.D., F.A.C.S.
[2020-03-19] MEDS: Polyethylene Glycol 3350 17 GM PACKET PO (06:33)
[2020-03-19] MEDS: Sucralfate 1 GM Tablet PO ×2 (06:34→10:57)
[2020-03-19 07:25] LABS: Absolute Lymphocyte Count 0.73 X10^3/uL (0.83-4.51); Absolute Neutrophil Count 9.8 X10^3/uL (2.0-7.7); Basophil# 0.03 X10^3/uL; Basophil% 0.3 % (0-1); Lymphocyte # 0.73 X10^3/ul (4.0); Lymphocyte % 6.4 % (19-41); Mean Corp Hgb Conc 34.3 g/dL (32-36); Mean Corpuscular Hgb 30.5 pg (27.0-32.0); Mean Corpuscular Volume 88.8 fL (81-99); Mean Platelet Vol. 9.4 fl (6.2-12.0); Monocyte% 5.3 % (0-10); NRBC Flagged by Analyzer 0 % (0-5); Neutrophil # 9.78 X10^3/uL (2.7-7.7); Neutrophil % 85.5 % (47-70); Platelet Count 293 K/mm3 (150-450); RBC Distribution Width CV 13.1 % (11.6-14.6); RBC Distribution Width SD 42.8 fl (35.1-43.9); Red Blood Count 3.94 M/mm3 (4.2-5.4); White Blood Count 11.4 K/mm3 (4.4-11.0)
[2020-03-19 08:13] LABS: Anion Gap 4 (5-15); BUN 17 mg/dL (7-18); BUN/Creat Ratio 24.7 RATIO (10-20); Calcium,Total 7.6 mg/dL (8.5-10.1); Chloride 107 mmol/L (98-107); Creatinine, Serum 0.69 mg/dL (0.55-1.02); EST Glomerular Filtration Rate 88 mL/min (>60); Est Glom Filt Rate - Afr Amer 106 mL/min (>60); Estimated Creatinine Clearance 39.67 ml/min; Glucose 120 mg/dL (74-106); Potassium 3.9 mmol/L (3.5-5.1); Sodium Level 139 mmol/L (136-145)
--- NOTE | 2020-03-19 08:26 | PCM.PN.HOSP ---
Patient Problems: Active and Suspected Problems (Last Reviewed 03/12/20 @ 16:[address] Manohar Dupree, DO) Enterocolitis (Acute) Dehydration (Acute) Tachycardia (Acute) Diarrhea (Acute) Abdominal pain (Acute) Reason for Visit: Follow-up for abdominal pain diarrhea. Symptoms have resolved. Objective: Small bowel barium series x-ray reported normal. Patient did not had abdominal pain since last 1 AM yesterday. Patient tolerating regular diet. Plan for discharge today. Electrolytes are in normal range. Heart rate and blood pressure in acceptable limit. Steroid discontinued after probability of Crohn's disease ruled out. Antral biopsy was negative for H. pylori. Terminal ileum, cecal and colon biopsy negative for Crohn's disease. Patient had MiraLAX yesterday and today. Physical exam: General: Alert, Oriented x3, Cooperative HEENT: Atraumatic, PERRLA, EOMI, Normocephalic Oral: No Gingival or Mucosal Lesions/ Ulcerations Neck: Supple, No JVD, Negative Carotid Bruits Lungs: Air entry diminished in bilateral lung bases. No crepitation/rhonchi Cardiovascular: Regular rate, Regular Rhythm, Normal S1, Normal S2, No murmurs Abdomen: Bowel Sounds hyperactive, Soft, Non Tender, Non-Distended. RLQ mass not palpable : No renal angle tenderness. No suprapubic tenderness. Extremities: No edema, Capillary Refill Less than 3 Seconds Skin: No rashes, No breakdown Musculoskeletal: No Tenderness to Palpation of Joints or Extremities Neurological: Cranial nerves II-XII grossly intact, Deep Tendon Reflexes 2+/4 and Symmetrical, Neuro grossly intact Psych/Mental Status: Normal Affect, Appropriate. Vitals/I&O's: Vital Signs Temp Pulse Resp BP Pulse Ox 98.5 F 58 L 16 150/73 H 95 03/19/20 03:00 03/19/20 03:00 03/19/20 03:00 03/19/20 03:00 03/19/20 03:00 Oxygen Flow Rate (L/min) 2 Oxygen Delivery Method Room Air Weight: 119 lb 7.849 oz Body Mass Index (BMI) 20.5 Intake and Output for Last 24 Hours 03/17/20 03/18/20 03/19/20 23:59 23:59 23:59 Intake Total 2315.75 / 2315.75 1513.3333 / 1713.3333 600 / 600 Output Total 2250 / 2250 2100 / 2800 700 / 700 Balance 65.75 / 65.75 -586.6667 / -1086.6667 -100 / -100 Microbiology Past 72 Hours 03/17/20 21:05 Stool Stool Occult Blood (DANYA) - Final Occult Blood Positive Laboratory Results 03/19/20 06:49: WBC 11.4 H, RBC 3.94 L, Hgb 12.0, Hct 35.0 L, MCV 88.8, MCH 30.5, MCHC 34.3, RDW Std Deviation 42.8, RDW Coeff of Thee 13.1, Plt Count 293, MPV 9.4, Immature Gran % (Auto) 2.500 H, Neut % (Auto) 85.5 H, Lymph % (Auto) 6.4 L, [place] % (Auto) 5.3, Eos % (Auto) 0.0, Baso % (Auto) 0.3, Absolute Neuts (auto) 9.8 H, Absolute Lymphs (auto) 0.73 L, Nucleated RBC % 0 03/19/20 06:49: Sodium 139, Potassium 3.9, Chloride 107, Carbon Dioxide 28.0, Anion Gap 4 L, BUN 17, Creatinine 0.69, Estim Creat Clear Calc 39.67, Est GFR (MDRD) Af Amer 106, Est GFR (MDRD) Non-Af 88, BUN/Creatinine Ratio 24.7 H, Glucose 120 H, Calcium 7.6 L Current Medications Acetaminophen (Acetaminophen 325 Mg Tablet) 650 mg PO Q6H PRN PRN PRN Reason: Pain Score 1-10/Temp > 100.7 F Last Admin: 03/15/20 02:48 Dose: 650 mg Documented by: Enoxaparin Sodium (Enoxaparin 40 Mg/0.4 Ml Syringe) 40 mg SC DAILY [facility] Last Admin: 03/18/20 16:34 Dose: Not Given Documented by: Sodium Chloride () 250 mls @ 15 mls/hr IV .[id number] PRN PRN Reason: Saline Flush Last Infusion: 03/17/20 13:44 Dose: Infused Documented by: Morphine Sulfate (Morphine 2 Mg/Ml Syringe) 2 mg IV Q3H PRN PRN PRN Reason: breakthrough pain 4-10 Ondansetron HCl (Ondansetron 4 Mg/2 Ml Vial) 4 mg IV Q6H PRN PRN PRN Reason: NAUSEA/VOMITING Last Admin: 03/18/20 08:49 Dose: 4 mg Documented by: Oxycodone HCl (Oxycodone 5 Mg Tablet) 5 mg PO Q4H PRN PRN PRN Reason: Pain Score 4-5 Last Admin: 03/13/20 14:44 Dose: 5 mg Documented by: Oxycodone HCl (Oxycodone 5 Mg Tablet) 10 mg PO Q4H PRN PRN PRN Reason: Pain Score 6-10 Pantoprazole Sodium (Pantoprazole Sodium 40 Mg Tablet) 40 mg PO DAILY [facility] Last Admin: 03/18/20 11:54 Dose: Not Given Documented by: Potassium Chloride (Potassium Chloride 20 Meq Tablet) 40 meq PO DAILYCM [facility] Stop: 03/20/20 08:01 Last Admin: 03/18/20 11:54 Dose: Not Given Documented by: Sodium Chloride (0.9% Saline Lock 10 Ml Syringe) 10 - 40 ml IV UD PRN PRN Reason: SALINE FLUSH Last Admin: 03/18/20 16:40 Dose: 10 ml Documented by: Sucralfate (Sucralfate 1 Gm Tablet) 1 gm PO 1HR_ACHS [facility] Last Admin: 03/19/20 06:34 Dose: 1 gm Documented by: Medical Necessity - Tobacco Use Smoking Status: Never smoker Assessment/Plan All Active Problems (Last Reviewed 03/12/20 @ 16:[address] Manohar Dupree, DO) Enterocolitis (Acute) Dehydration (Acute) Tachycardia (Acute) Diarrhea (Acute) Abdominal pain (Acute) This is a 79-year-old female was admitted with abdominal pain, diarrhea since March [address] abdomen on March 09 without oral contrast reported no dilated loops of bowel. 1. Acute right lower quadrant abdominal pain with suspicion of Crohn's disease: Patient has palpable right lower quadrant mass. Infectious work-up including C. difficile, enteric bacteriology panel, rapid SARS-CoV-2 antigen are negative. Urine culture negative. Has EGD and colonoscopy in the morning which does not explain abdominal pain. 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 Normal duodenum. Colonoscopy reported hemorrhoids with redundant colon but no abnormal mucosa up to 10 cm beyond terminal ileum. Discussed with the surgeon Dr. Jason Madrigal and CT abdomen with oral contrast was ordered but unfortunately patient vomited oral contrast and repeat CT was similar to without oral contrast with limited assessment. It reported bilateral pleural effusion right greater than left with atelectasis and perihepatic ascites. Empirically started on IV Solu-Medrol. Antibiotic Zosyn was discontinued as infectious work-up was negative and patient has been afebrile with no leukocytosis. Patient received 2 doses of Lasix for positive fluid balance about 80 mL documented. 2D echo reported normal LV size and systolic function, normal left and right atria. Normal RV size and systolic function mild TR, RVSP 35 mmHg and moderate pleural effusion. Initially was put on Solu-Medrol for suspicion of Crohn's disease but terminal ileum, cecal and colonic biopsy negative for Crohn's disease therefore the steroid, Solu-Medrol discontinued. Patient was also having increasing blood pressure. Blood pressure returned to baseline normal after discontinuation of Solu-Medrol. Patient had MiraLAX and waiting for bowel movement to occur. Leukocytosis secondary to steroid. Patient does not need any further Lasix. Autoimmune markers c-ANCA, p-ANCA are negative. Patient had a small bowel series and reported normal. 2. Mild hypokalemia and hypophosphatemia: ProcalAmine hypophosphatemia was corrected. Repeat labs shows normal levels of electrolytes. 2. Bilateral pleural effusion, mild to moderate right more than left and perihepatic ascites: Patient denies any history of liver disease, chronic lung disease or heart disease. BNP elevated 635. Patient is not hypoxic, tachypneic or short of breath. Advised to continue aggressive incentive spirometry. 2. History of sinus tachycardia: Currently normal sinus rhythm at 73 bpm. 3. VTE prophylaxis with low molecular weight heparin. Patient is medically hemodynamically stable for discharge Total time of the visit including total time spent in counseling or coordination of care, (more than 50% of the total time, spent in obtaining medical information from nurses and other ancillary care providers,explaining to the patient about labs, imaging, diagnosis and management), discussion with surgeon and explaining to patient and her , review of labs and imaging is 30 minutes. Microbiology Past 72 Hours 03/17/20 21:05 Stool Stool Occult Blood (DANYA) - Final Occult Blood Positive Laboratory Results 03/19/20 06:49: WBC 11.4 H, RBC 3.94 L, Hgb 12.0, Hct 35.0 L, MCV 88.8, MCH 30.5, MCHC 34.3, RDW Std Deviation 42.8, RDW Coeff of Thee 13.1, Plt Count 293, MPV 9.4, Immature Gran % (Auto) 2.500 H, Neut % (Auto) 85.5 H, Lymph % (Auto) 6.4 L, [place] % (Auto) 5.3, Eos % (Auto) 0.0, Baso % (Auto) 0.3, Absolute Neuts (auto) 9.8 H, Absolute Lymphs (auto) 0.73 L, Nucleated RBC % 0 03/19/20 06:49: Sodium 139, Potassium 3.9, Chloride 107, Carbon Dioxide 28.0, Anion Gap 4 L, BUN 17, Creatinine 0.69, Estim Creat Clear Calc 39.67, Est GFR (MDRD) Af Amer 106, Est GFR (MDRD) Non-Af 88, BUN/Creatinine Ratio 24.7 H, Glucose 120 H, Calcium 7.6 L Clinical Impression(s) from Imaging Lit Abdomen CT 03/16/20 07:10 IMPRESSION: Limited study. Limited assessment of the terminal ileum and right lower quadrant. Small amount of perihepatic fluid as well as fluid within the pelvis. Bilateral pleural effusions right greater than left with bibasilar atelectasis and/or infiltrates. Inpatient E&M: 35844 Subs Hosp L2
[2020-03-19 09:17] VITALS: BP 122/59; PULSE 72; RESP 18; TEMP 36.4; O2SAT 95
[2020-03-19] MEDS: Pantoprazole Sodium 40 MG Tablet PO (09:29)
--- NOTE | 2020-03-19 15:00 | PCM.DC ---
- Discharge Diagnoses Current Active Problems: Current Active and Chronic Problems (Last Reviewed 03/12/20 @ 16:[address] Manohar Dupree, DO) Enterocolitis (Acute) Dehydration (Acute) Tachycardia (Acute) Diarrhea (Acute) Abdominal pain (Acute) You will use the following diet at home:: Regular Your food should be the consistency of: Regular Discharge Activity: Return to Normal Activity, May Not Drive - For 2 to 3 days, follow with PCP Weight Bearing Status: Weight bearing as tolerated Call your doctor if you observe: Fever of 101 or Higher, Coldness, Increased Pain, Numbness or Tingling, Change in Color, Inability to urinate, Inability to have a bowel movement, Shortness of breath, Dizziness, Fainting spells, Swelling in the ankles, Chest pain, Prolonged hiccoughing, Increased palpitations (irregular heartbeat), Calf discomfort, Uncontrolled pain Additional Instructions: Patient might need GI referral by PCP if she continues to have abdominal pain or diarrhea. Allergies/Adverse Reactions: Allergies No Known Allergies Allergy (Verified 03/12/20 15:03) Medications to take at Discharge Aspirin [Aspirin, Baby] 1 tab PO DAILY 03/09/20 Ondansetron [Zofran Odt] 4 mg PO Q8H PRN PRN #10 tab 03/09/20 Calcium Carbonate [Calcium] 03/12/20 Dicyclomine HCl [Bentyl] 20 mg PO TIDAC PRN 03/12/20 cholecalciferol (vitamin D3) 25 mcg (1,000 unit) capsule 50 mcg PO DAILY cap 03/12/20 omega-3 fatty acids 1,000 mg capsule 1,000 mg PO DAILY 03/12/20 Pantoprazole Sodium [Protonix] 40 mg PO DAILY #30 tab 03/19/20 Potassium Chloride [K-Dur] 20 meq PO DAILYCM #5 tab 03/19/20 Sucralfate [Carafate] 1 gm PO 1HR_ACHS #120 tab 03/19/20 The following prescriptions were given: Sucralfate [Carafate] 1 gm PO 1HR_ACHS #120 tab Transmission Status: Pending to [facility] Potassium Chloride [K-Dur] 20 meq PO DAILYCM #5 tab Transmission Status: Pending to [facility] Pantoprazole Sodium [Protonix] 40 mg PO DAILY #30 tab Transmission Status: Pending to [id number] Primary Care Physician: Gia Grover DO [Primary Care Provider] - Please follow up with your Primary Care Physician in: in 1-2 weeks Test Results: Test results from this visit will be discussed in further detail at your follow-up appointment, if applicable. Please Follow Up With: Jason Madrigal MD When: in 2 weeks
--- NOTE | 2020-03-19 15:08 | PCM.DC.SUM ---
Discharge Date and Diagnosis - Problem List Patient Problems: Active and Suspected Problems (Last Reviewed 03/12/20 @ 16:[address] Manohar Dupree DO) Enterocolitis (Acute) Dehydration (Acute) Tachycardia (Acute) Diarrhea (Acute) Abdominal pain (Acute) Date of Admission: 03/12/20 Date of Discharge: 03/19/20 - Primary Discharge Diagnosis Acute Problems: Active Problems (Last Reviewed 03/12/20 @ 16:[address] Manohar Dupree DO) Enterocolitis (Acute) Dehydration (Acute) Tachycardia (Acute) Diarrhea (Acute) Abdominal pain (Acute) Hospital Course and Treatment Summary of Care Provided: [] This is a 79-year-old female was admitted with abdominal pain, diarrhea since March [address] abdomen on March 09 without oral contrast reported no dilated loops of bowel. 1. Acute right lower quadrant abdominal pain with suspicion of Crohn's disease: Patient has palpable right lower quadrant mass. Infectious work-up including C. difficile, enteric bacteriology panel, rapid SARS-CoV-2 antigen are negative. Urine culture negative. Has EGD and colonoscopy in the morning which does not explain abdominal pain. 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 Normal duodenum. Colonoscopy reported hemorrhoids with redundant colon but no abnormal mucosa up to 10 cm beyond terminal ileum. Discussed with the surgeon Dr. Jason Madrigal and CT abdomen with oral contrast was ordered but unfortunately patient vomited oral contrast and repeat CT was similar to without oral contrast with limited assessment. It reported bilateral pleural effusion right greater than left with atelectasis and perihepatic ascites. Empirically started on IV Solu-Medrol. Antibiotic Zosyn was discontinued as infectious work-up was negative and patient has been afebrile with no leukocytosis. Patient had 2 doses of Lasix 40 mg. Patient was not short of breath. There was reactive leukocytosis and blood pressure increased secondary to Solu-Medrol. When the terminal ileum, cecal and colonic biopsy came negative for Crohn's disease, Solu-Medrol was discontinued. Patient is discharged on Protonix and Carafate for bilious gastritis. Autoimmune markers c-ANCA p-ANCA were negative. Patient further had a small bowel series x-ray which was reported normal. Mild hypokalemia and hypophosphatemia: Potassium and phosphate was replaced. Repeat labs shows normal electrolytes. 2. Bilateral pleural effusion, right more than left and perihepatic ascites: Patient denies any history of liver disease, chronic lung disease or heart disease. BNP elevated 635. Patient is not hypoxic, tachypneic or short of breath. Continue aggressive incentive spirometry 2. History of sinus tachycardia: EKG normal sinus rhythm at 73 bpm. 3. VTE prophylaxis with low molecular weight heparin. Discharge medication reconciliation done. Discharge follow-up instructions completed. Discharge process discussed with the patient and all questions were answered to patient's satisfaction. Total time spent, exact 35 minutes on discharge meds reconciliation, examination, coordination of care with nurses and ancillary staff, review of imaging and blood test and discussion with the patient on follow-up instructions Patient Problems: Active and Suspected Problems (Last Reviewed 03/12/20 @ 16:[address] Manohar Dupree, DO) Enterocolitis (Acute) Dehydration (Acute) Tachycardia (Acute) Diarrhea (Acute) Abdominal pain (Acute) Objective: Please see progress note of the same date. - Physical Exam Vitals/I&O's: Vital Signs Temp Pulse Resp BP Pulse Ox 97.6 F L 72 18 122/59 H 95 03/19/20 09:17 03/19/20 09:17 03/19/20 09:17 03/19/20 09:17 03/19/20 09:17 Oxygen Flow Rate (L/min) 2 Oxygen Delivery Method Room Air Weight: 119 lb 7.849 oz Body Mass Index (BMI) 20.5 Intake and Output for Last 24 Hours 03/17/20 03/18/20 03/19/20 23:59 23:59 23:59 Intake Total 2315.75 / 2315.75 1513.3333 / 1713.3333 600 / 600 Output Total 2250 / 2250 2100 / 2800 700 / 700 Balance 65.75 / 65.75 -586.6667 / -1086.6667 -100 / -100 Microbiology Past 72 Hours 03/17/20 21:05 Stool Stool Occult Blood (DANYA) - Final Occult Blood Positive Laboratory Results 03/19/20 06:49: WBC 11.4 H, RBC 3.94 L, Hgb 12.0, Hct 35.0 L, MCV 88.8, MCH 30.5, MCHC 34.3, RDW Std Deviation 42.8, RDW Coeff of Thee 13.1, Plt Count 293, MPV 9.4, Immature Gran % (Auto) 2.500 H, Neut % (Auto) 85.5 H, Lymph % (Auto) 6.4 L, Ford % (Auto) 5.3, Eos % (Auto) 0.0, Baso % (Auto) 0.3, Absolute Neuts (auto) 9.8 H, Absolute Lymphs (auto) 0.73 L, Nucleated RBC % 0 03/19/20 06:49: Sodium 139, Potassium 3.9, Chloride 107, Carbon Dioxide 28.0, Anion Gap 4 L, BUN 17, Creatinine 0.69, Estim Creat Clear Calc 39.67, Est GFR (MDRD) Af Amer 106, Est GFR (MDRD) Non-Af 88, BUN/Creatinine Ratio 24.7 H, Glucose 120 H, Calcium 7.6 L Current Medications Acetaminophen (Acetaminophen 325 Mg Tablet) 650 mg PO Q6H PRN PRN PRN Reason: Pain Score 1-10/Temp > 100.7 F Last Admin: 03/15/20 02:48 Dose: 650 mg Documented by: Enoxaparin Sodium (Enoxaparin 40 Mg/0.4 Ml Syringe) 40 mg SC DAILY CLARICE Last Admin: 03/19/20 09:32 Dose: Not Given Documented by: Sodium Chloride () 250 mls @ 15 mls/hr IV .[id number] PRN PRN Reason: Saline Flush Last Infusion: 03/17/20 13:44 Dose: Infused Documented by: Morphine Sulfate (Morphine 2 Mg/Ml Syringe) 2 mg IV Q3H PRN PRN PRN Reason: breakthrough pain 4-10 Ondansetron HCl (Ondansetron 4 Mg/2 Ml Vial) 4 mg IV Q6H PRN PRN PRN Reason: NAUSEA/VOMITING Last Admin: 03/18/20 08:49 Dose: 4 mg Documented by: Oxycodone HCl (Oxycodone 5 Mg Tablet) 5 mg PO Q4H PRN PRN PRN Reason: Pain Score 4-5 Last Admin: 03/13/20 14:44 Dose: 5 mg Documented by: Oxycodone HCl (Oxycodone 5 Mg Tablet) 10 mg PO Q4H PRN PRN PRN Reason: Pain Score 6-10 Pantoprazole Sodium (Pantoprazole Sodium 40 Mg Tablet) 40 mg PO DAILY [facility] Last Admin: 03/19/20 09:29 Dose: 40 mg Documented by: Potassium Chloride (Potassium Chloride 20 Meq Tablet) [facility] Stop: 03/20/20 08:01 Last Admin: 03/19/20 09:26 Dose: 40 meq Documented by: Sodium Chloride (0.9% Saline Lock 10 Ml Syringe) 10 - 40 ml IV UD PRN PRN Reason: SALINE FLUSH Last Admin: 03/18/20 16:40 Dose: 10 ml Documented by: Sucralfate (Sucralfate 1 Gm Tablet) 1 gm PO 1HR_ACHS [facility] Last Admin: 03/19/20 10:57 Dose: 1 gm Documented by: Discharge Activity: Return to Normal Activity, May Not Drive - For 2 to 3 days, follow with PCP Weight Bearing Status: Weight bearing as tolerated Call your doctor if you observe: Fever of 101 or Higher, Coldness, Increased Pain, Numbness or Tingling, Change in Color, Inability to urinate, Inability to have a bowel movement, Shortness of breath, Dizziness, Fainting spells, Swelling in the ankles, Chest pain, Prolonged hiccoughing, Increased palpitations (irregular heartbeat), Calf discomfort, Uncontrolled pain Home Medications: Medications to take at Discharge Aspirin [Aspirin, Baby] 1 tab PO DAILY 03/09/20 Ondansetron [Zofran Odt] 4 mg PO Q8H PRN PRN #10 tab 03/09/20 Calcium Carbonate [Calcium] 03/12/20 Dicyclomine HCl [Bentyl] 20 mg PO TIDAC PRN 03/12/20 cholecalciferol (vitamin D3) 25 mcg (1,000 unit) capsule 50 mcg PO DAILY cap 03/12/20 omega-3 fatty acids 1,000 mg capsule 1,000 mg PO DAILY 03/12/20 Pantoprazole Sodium [Protonix] 40 mg PO DAILY #30 tab 03/19/20 Potassium Chloride [K-Dur] 20 meq PO DAILYCM #5 tab 03/19/20 Sucralfate [Carafate] 1 gm PO 1HR_ACHS #120 tab 03/19/20 Following Prescriptions Were Given to Patient: Sucralfate [Carafate] 1 gm PO 1HR_ACHS #120 tab Transmission Status: Received by [facility] Potassium Chloride [K-Dur] 20 meq PO DAILYCM #5 tab Transmission Status: Received by [facility] Pantoprazole Sodium [Protonix] 40 mg PO DAILY #30 tab Transmission Status: Received by [facility] Primary Care Physician: Gia Grover DO [Primary Care Provider] - Please follow up with your Primary Care Physician in: in 1-2 weeks Please Follow Up With: Jason Madrigal MD When: in 2 weeks Medical Necessity - Tobacco Use Smoking Status: Never smoker Meaningful Use Info Meaningful Use Diagnoses (Choose all that apply): None applicable Cancel the progress note charge of the same date 03/19/2020 Inpatient E&M: [id number] Disch Hosp
[2020-03-19 15:16] VITALS: BP 130/64; PULSE 71; RESP 15; TEMP 36.9; O2SAT 97
== END 2020-03-19 14:28 | disposition home or self-care (01) | DRG 392 ==
PROVIDERS: Surgery; PCP Internal Medicine; Visit Provider Internal Medicine
PROC: 0DJD8ZZ Inspection of Lower Intestinal Tract, Via Natural or Artificial Opening Endoscopic (ICD-10-PCS; CPT 45378; principal; 2020-03-16 06:25)
DX: K29.50 Unspecified chronic gastritis without bleeding (principal); E44.0 Moderate protein-calorie malnutrition; Q43.8 Other specified congenital malformations of intestine; J90 Pleural effusion, not elsewhere classified; R18.8 Other ascites; J98.11 Atelectasis; K52.9 Noninfective gastroenteritis and colitis, unspecified; Z68.20 Body mass index [BMI] 20.0-20.9, adult; K64.9 Unspecified hemorrhoids; R00.0 Tachycardia, unspecified; E83.39 Other disorders of phosphorus metabolism; E86.0 Dehydration; E87.6 Hypokalemia; K44.9 Diaphragmatic hernia without obstruction or gangrene; K31.7 Polyp of stomach and duodenum; K21.00 Gastro-esophageal reflux disease with esophagitis, without bleeding; M19.90 Unspecified osteoarthritis, unspecified site; Z78.0 Asymptomatic menopausal state; Z79.82 Long term (current) use of aspirin; Z79.899 Other long term (current) drug therapy; Z87.19 Personal history of other diseases of the digestive system; Z80.0 Family history of malignant neoplasm of digestive organs
CPT/HCPCS: 36415; 74176; 74177; 74250; 80048; 80053; 81001; 82274; 83605; 83690; 83735; 83880; 84100; 84132; 85025; 85652; 86140; 86256; 87086; 87426; 87493; 87506; 88305; 88313; 88342; 93005; 93306; 96361; 96374; 96375; 97802; 97803; 99251; 99284; J7030; J7040; J7050; Q9967; A4216; G0463; J1940; J2405

== ENCOUNTER → 2020-03-23 12:28 | Outpatient (CLI) | payer MEDICARE, SELFPAY ==
[2020-03-16 03:56] VITALS: BMI 20.5
--- NOTE | 2020-03-23 12:32 | RAD_ITS ---
HISTORY: PT WAS IN THE HOSPITAL FOR BILATERAL PLEURAL EFFUSION. CHEST XRAY FOR FOLLOW UP. ADDITIONAL HISTORY: None provided. COMPARISON: 03/19/2019. CT abdomen and pelvis 03/16/2020. EXAMINATION/TECHNIQUE: XR Chest 2 Views Number of images including paperwork: 2 FINDINGS: LUNGS AND PLEURA: No consolidation, mass or pleural effusion. CARDIAC SILHOUETTE: Unremarkable. MEDIASTINUM AND SCARLETT: Aortic tortuosity. UPPER ABDOMEN: Unremarkable. SKELETON AND SOFT TISSUES: No acute findings. Degenerative changes. OTHER DEVICES AND HARDWARE: None. RAD/Chest PA and Lateral IMPRESSION: No acute cardiopulmonary abnormality. Resolution of bilateral pleural effusions. at 0148 Reported and signed by: Nadja Estevez MD Electronically Signed: Nadja Estevez MD at 1:47 EST Tel , Service support ,
== END ==
PROVIDERS: PCP Internal Medicine; Referring Provider Internal Medicine; Visit Provider Internal Medicine
DX: J90 Pleural effusion, not elsewhere classified (principal)
CPT/HCPCS: 71046

== ENCOUNTER 2020-04-17 10:03 | Outpatient (RCR) | payer MEDICARE, SELFPAY ==
[2020-03-16 03:56] VITALS: BMI 20.5
== END 2020-04-17 23:59 ==
LOC: IMMUN 10:03
PROVIDERS: PCP Internal Medicine; Referring Provider Family Medicine; Visit Provider Family Medicine
DX: Z23 Encounter for immunization (principal)
CPT/HCPCS: 0011A; 0012A

== ENCOUNTER → 2020-04-20 08:04 | Outpatient (CLI) | payer MEDICARE, SELFPAY ==
[2020-03-16 03:56] VITALS: BMI 20.5
[2020-04-20 08:52] LABS: Absolute Lymphocyte Count 1.83 X10^3/uL (0.83-4.51); Basophil# 0.06 X10^3/uL; Basophil% 1.2 % (0-1); Eosinophil# 0.45 X10^3/uL; Hematocrit 36.1 % (37-47); Hemoglobin 11.8 g/dL (12.0-15.0); Lymphocyte # 1.83 X10^3/ul (4.0); Lymphocyte % 36.7 % (19-41); Mean Corp Hgb Conc 32.7 g/dL (32-36); Mean Corpuscular Hgb 30.2 pg (27.0-32.0); Mean Corpuscular Volume 92.3 fL (81-99); Mean Platelet Vol. 10.1 fl (6.2-12.0); NRBC Flagged by Analyzer 0 % (0-5); Neutrophil # 2.04 X10^3/uL (2.7-7.7); Neutrophil % 40.9 % (47-70); Platelet Count 186 K/mm3 (150-450); RBC Distribution Width CV 13.9 % (11.6-14.6); RBC Distribution Width SD 46.6 fl (35.1-43.9); Red Blood Count 3.91 M/mm3 (4.2-5.4)
[2020-04-20 09:19] LABS: AST(SGOT) 19 U/L (15-37); Alanine Aminotransfer ALT/SGPT 13 U/L (13-56); Albumin, Serum 3.5 g/dL (3.2-5.0); Alkaline Phosphatase 55 U/L (45-117); Anion Gap 6 (5-15); BUN 22 mg/dL (7-18); BUN/Creat Ratio 24.7 RATIO (10-20); Calcium,Total 9.1 mg/dL (8.5-10.1); Chloride 107 mmol/L (98-107); Cholesterol 192 mg/dL (200); Creatinine, Serum 0.89 mg/dL (0.55-1.02); EST Glomerular Filtration Rate 65 mL/min (>60); Est Glom Filt Rate - Afr Amer 79 mL/min (>60); Globulin 3.5 g/dL (2.2-4.2); Glucose 89 mg/dL (74-106); High Density Lipoprotein 98 mg/dL; Sodium Level 140 mmol/L (136-145); Triglycerides 62 mg/dL; Very Low Density Lipoprotein 12 mg/dL (5-40)
[2020-04-20 09:21] LABS: Hemoglobin A1c 5.5 % (3.8-5.6)
== END ==
PROVIDERS: PCP Internal Medicine; Referring Provider Internal Medicine; Visit Provider Internal Medicine
DX: R73.09 Other abnormal glucose (principal); D72.820 Lymphocytosis (symptomatic); I70.8 Atherosclerosis of other arteries
CPT/HCPCS: 36415; 80053; 80061; 83036; 85025

== ENCOUNTER → 2020-04-21 12:14 | Outpatient (CLI) | payer MEDICARE, SELFPAY ==
[2020-03-16 03:56] VITALS: BMI 20.5
--- NOTE | 2020-04-21 12:20 | BD_ITS ---
STUDY: DUAL ENERGY X-RAY ABSORPTIOMETRY / DXA REASON FOR EXAM: Female, 79 years old. Age of courtney 53. Pat is 118.3# and 63.25 and quot; a loss of 1.5 and quot; per pat. Takes 500mg of calcium and a multi-vit. Past hx of taking Fosomax, and has now been on Prolia for @ 5 yrs with about 10 injections total. Has a fam hx of osteo. Exercises moderatly. TECHNIQUE: Bone Mineral Density (BMD) measurements of lumbar spine and bilateral hips were obtained. COMPARISON: Comparison is made with prior examination dated 04/17/2018. FINDINGS: Lumbar Spine (L1-L4): g/cm2 (0.837) / T-score (-2.7) / Z-score (0.9) Findings are suggestive of osteoporosis with a high fracture risk. Left Femur Total: g/cm2 (0.878) / T-score (-1.0) / Z-score (0.9) Left Femoral Neck: g/cm2 (0.869) / T-score (-1.2) / Z-score (0.9) Right Femur Total: g/cm2 (0.846) / T-score (-1.3) / Z-score (0.6) Right Femoral Neck: g/cm2 (0.804) / T-score (-1.7) / Z-score (0.4) The T-Scores on the most recent prior examination were: Lumbar Spine (L1-L4): There has been improvement of bone density since the previous examination. Left Femur Total: which represents an improvement of 6.3%. Right Femur Total: which represents an improvement of 0.8%. BD/Dexa Bone Density Study IMPRESSION: The patient is considered osteoporotic as outlined below according to World Trino Organization (WHO) criteria with a high fracture risk. There has been improvement of bone density since the previous examination. Reference Information: The T-score is the number of standard deviations above or below the standard which is normal for young adults at their peak bone mineral density. The World Health Organization (WHO) interprets the T-scores as follows: Above -1 Normal bone density Between -1 and -2.5 Osteopenia Equal to / or below -2.5 Osteoporosis As a practical clinical guideline, osteopenia may be graded as follows: Mild -1 through -1.5 Moderate -1.6 through -2.0 Severe -2.1 through -2.4 The Z-score is the number of standard deviations above or below age-matched controls. A Z-score of less than -1.5 would be considered abnormal. References: 1. NIH Osteoporosis and Related Bone Diseases www osteo.org 2. International Society for Clinical Densitometry www iscd.org 3. National Osteoporosis Foundation www nof.org Electronically Signed: Graham Rivera MD at 13:52 EST , Service support ,
== END ==
PROVIDERS: PCP Internal Medicine; Referring Provider Internal Medicine; Visit Provider Internal Medicine
DX: Z78.0 Asymptomatic menopausal state (principal)
CPT/HCPCS: 77080

== ENCOUNTER → 2020-06-15 15:40 | Outpatient (CLI) | payer MEDICARE, SELFPAY ==
[2020-03-16 03:56] VITALS: BMI 20.5
[2020-06-15 17:37] LABS: Absolute Lymphocyte Count 1.63 X10^3/uL (0.83-4.51); Absolute Neutrophil Count 2.6 X10^3/uL (2.0-7.7); Basophil# 0.04 X10^3/uL; Basophil% 0.8 % (0-1); Eosinophil# 0.16 X10^3/uL; Eosinophils% 3.2 % (0-5); Hematocrit 38.4 % (37-47); Hemoglobin 12.2 g/dL (12.0-15.0); Lymphocyte # 1.63 X10^3/ul (4.0); Lymphocyte % 32.9 % (19-41); Mean Corp Hgb Conc 31.8 g/dL (32-36); Mean Corpuscular Hgb 30.2 pg (27.0-32.0); Mean Platelet Vol. 10.4 fl (6.2-12.0); Monocyte# 0.48 X10^3/uL; Monocyte% 9.7 % (0-10); NRBC Flagged by Analyzer 0 % (0-5); Neutrophil # 2.63 X10^3/uL (2.7-7.7); Neutrophil % 53.2 % (47-70); Platelet Count 212 K/mm3 (150-450); RBC Distribution Width CV 13.7 % (11.6-14.6); Red Blood Count 4.04 M/mm3 (4.2-5.4)
== END ==
PROVIDERS: PCP Internal Medicine; Visit Provider Internal Medicine
DX: R73.09 Other abnormal glucose (principal)
CPT/HCPCS: 36415; 85025

== ENCOUNTER → 2020-07-17 08:13 | Outpatient (CLI) | payer MEDICARE, SELFPAY ==
[2020-03-16 03:56] VITALS: BMI 20.5
[2020-07-17 09:25] LABS: Absolute Lymphocyte Count 1.73 X10^3/uL (0.83-4.51); Absolute Neutrophil Count 1.8 X10^3/uL (2.0-7.7); Basophil# 0.05 X10^3/uL; Basophil% 1.2 % (0-1); Eosinophil# 0.12 X10^3/uL; Hematocrit 40.5 % (37-47); Hemoglobin 12.8 g/dL (12.0-15.0); Lymphocyte # 1.73 X10^3/ul (0.83-4.51); Lymphocyte % 42.6 % (19-41); Mean Corp Hgb Conc 31.6 g/dL (32-36); Mean Corpuscular Hgb 29.2 pg (27.0-32.0); Mean Corpuscular Volume 92.3 fL (81-99); Mean Platelet Vol. 10.2 fl (6.2-12.0); Monocyte# 0.41 X10^3/uL; Monocyte% 10.1 % (0-10); NRBC Flagged by Analyzer 0 % (0-5); Neutrophil # 1.75 X10^3/uL (2.7-7.7); Neutrophil % 43.1 % (47-70); Platelet Count 201 K/mm3 (150-450); RBC Distribution Width CV 13.3 % (11.6-14.6); RBC Distribution Width SD 45.5 fl (35.1-43.9); Red Blood Count 4.39 M/mm3 (4.2-5.4); White Blood Count 4.1 K/mm3 (4.4-11.0)
[2020-07-17 09:39] LABS: Hemoglobin A1c 5.3 % (3.8-5.6)
[2020-07-17 10:03] LABS: ALB/GLOB Ratio 1.1 RATIO (0.9-2.4); AST(SGOT) 22 U/L (15-37); Alanine Aminotransfer ALT/SGPT 21 U/L (13-56); Albumin, Serum 3.5 g/dL (3.2-5.0); Alkaline Phosphatase 53 U/L (45-117); Anion Gap 0 (5-15); BUN 27 mg/dL (7-18); BUN/Creat Ratio 33.8 RATIO (10-20); Chloride 108 mmol/L (98-107); Cholesterol 181 mg/dL (200); EST Glomerular Filtration Rate 74 mL/min (>60); Est Glom Filt Rate - Afr Amer 89 mL/min (>60); Globulin 3.3 g/dL (2.2-4.2); Glucose 83 mg/dL (74-106); High Density Lipoprotein 110 mg/dL; Potassium 4.2 mmol/L (3.5-5.1); Protein, Total 6.8 g/dL (6.4-8.2); Sodium Level 141 mmol/L (136-145); Triglycerides 39 mg/dL; Very Low Density Lipoprotein 8 mg/dL (5-40)
== END ==
PROVIDERS: PCP Internal Medicine; Referring Provider Internal Medicine; Visit Provider Internal Medicine
DX: R73.09 Other abnormal glucose (principal); D72.820 Lymphocytosis (symptomatic)
CPT/HCPCS: 36415; 80053; 80061; 83036; 85025

== ENCOUNTER → 2020-09-02 10:35 | Outpatient (CLI) | payer MEDICARE, SELFPAY ==
[2020-03-16 03:56] VITALS: BMI 20.5
--- NOTE | 2020-09-02 10:37 | BI_ITS ---
MAMMOGRAPHY - BILATERAL SCREENING REASON FOR EXAM: Female, 80 years old. Routine annual screening examination. PERTINENT HISTORY: Mother with breast cancer. Uncle with breast cancer. TECHNIQUE: Digital bilateral breast charlotte (3D mammographic acquisition) in the CC and MLO projections. 2-D mediolateral oblique (MLO) and craniocaudad (CC) views of both breasts were obtained. CAD: Full Field Digital Mammography with Computer Added Detection was performed. COMPARISON: Comparison is made with prior study dated 09/02/2019 and 08/29/2018. FINDINGS: Breast Composition: The breasts are heterogeneously dense, which may obscure small masses. There are no dominant masses or suspicious calcifications. No other significant abnormalities are identified. There has been no significant change since the prior study. BI/SCRN MAMM (CAD)W/CHARLOTTE BILAT IMPRESSION: Stable bilateral screening mammogram. Yearly follow-up mammogram recommended. (A) ASSESSMENT CATEGORY: BIRADS Category 1: Negative. A letter regarding these results will be sent to the patient by the facility within 30 days. Approximately 10% of breast cancers are not detected by mammography. A normal mammogram should not delay biopsy of a clinically suspicious abnormality. [id number] Electronically Signed: Graham Rivera MD at 12:44 EDT , Service support ,
== END ==
PROVIDERS: PCP Internal Medicine; Referring Provider Internal Medicine; Visit Provider Internal Medicine
DX: Z12.31 Encounter for screening mammogram for malignant neoplasm of breast (principal)
CPT/HCPCS: 77063; 77067

== ENCOUNTER → 2020-10-24 08:42 | Outpatient (CLI) | payer MEDICARE, SELFPAY ==
[2020-03-16 03:56] VITALS: BMI 20.5
[2020-10-24 09:41] LABS: Absolute Lymphocyte Count 1.74 X10^3/uL (0.83-4.51); Absolute Neutrophil Count 3.5 X10^3/uL (2.0-7.7); Basophil# 0.03 X10^3/uL; Basophil% 0.5 % (0-1); Eosinophil# 0.14 X10^3/uL; Eosinophils% 2.3 % (0-5); Hematocrit 36.1 % (37-47); Hemoglobin 11.8 g/dL (12.0-15.0); Lymphocyte # 1.74 X10^3/ul (0.83-4.51); Lymphocyte % 29.1 % (19-41); Mean Corp Hgb Conc 32.7 g/dL (32-36); Mean Corpuscular Hgb 30.1 pg (27.0-32.0); Mean Corpuscular Volume 92.1 fL (81-99); Mean Platelet Vol. 9.9 fl (6.2-12.0); Monocyte# 0.56 X10^3/uL; Monocyte% 9.4 % (0-10); NRBC Flagged by Analyzer 0 % (0-5); Neutrophil # 3.49 X10^3/uL (2.7-7.7); Neutrophil % 58.4 % (47-70); Platelet Count 203 K/mm3 (150-450); RBC Distribution Width CV 13.3 % (11.6-14.6); RBC Distribution Width SD 44.7 fl (35.1-43.9); Red Blood Count 3.92 M/mm3 (4.2-5.4)
[2020-10-24 09:56] LABS: Hemoglobin A1c 5.7 % (3.8-5.6)
[2020-10-24 10:05] LABS: ALB/GLOB Ratio 1.1 RATIO (0.9-2.4); AST(SGOT) 20 U/L (15-37); Alanine Aminotransfer ALT/SGPT 21 U/L (13-56); Albumin, Serum 3.5 g/dL (3.2-5.0); Alkaline Phosphatase 54 U/L (45-117); Anion Gap 8 (5-15); BUN 34 mg/dL (7-18); BUN/Creat Ratio 46.9 RATIO (10-20); Calcium,Total 8.8 mg/dL (8.5-10.1); Chloride 108 mmol/L (98-107); Creatinine, Serum 0.72 mg/dL (0.55-1.02); EST Glomerular Filtration Rate 82 mL/min (>60); Est Glom Filt Rate - Afr Amer 100 mL/min (>60); Globulin 3.3 g/dL (2.2-4.2); Glucose 80 mg/dL (74-106); Potassium 3.9 mmol/L (3.5-5.1); Protein, Total 6.8 g/dL (6.4-8.2); Sodium Level 143 mmol/L (136-145)
[2020-10-26 09:21] LABS: Vitamin D,25 Hydroxy 64.2 ng/mL
== END ==
PROVIDERS: PCP Internal Medicine; Referring Provider Internal Medicine; Visit Provider Internal Medicine
DX: R73.09 Other abnormal glucose (principal); D72.820 Lymphocytosis (symptomatic); M81.0 Age-related osteoporosis without current pathological fracture
CPT/HCPCS: 36415; 80053; 82306; 83036; 85025

== ENCOUNTER 2021-05-17 08:58 | Outpatient (CLI) | payer MEDICARE, SELFPAY ==
[2021-05-17 10:15] LABS: Absolute Lymphocyte Count 1.88 X10^3/uL (0.83-4.51); Absolute Neutrophil Count 1.9 X10^3/uL (2.0-7.7); Basophil# 0.05 X10^3/uL; Basophil% 1.1 % (0-1); Eosinophil# 0.18 X10^3/uL; Eosinophils% 4.1 % (0-5); Hematocrit 40.5 % (37-47); Hemoglobin 13.3 g/dL (12.0-15.0); Lymphocyte # 1.88 X10^3/ul (0.83-4.51); Lymphocyte % 42.3 % (19-41); Mean Corp Hgb Conc 32.8 g/dL (32-36); Mean Corpuscular Hgb 30.2 pg (27.0-32.0); Mean Platelet Vol. 10.1 fl (6.2-12.0); Monocyte# 0.47 X10^3/uL; Monocyte% 10.6 % (0-10); NRBC Flagged by Analyzer 0 % (0-5); Neutrophil # 1.85 X10^3/uL (2.7-7.7); Neutrophil % 41.7 % (47-70); Platelet Count 203 K/mm3 (150-450); RBC Distribution Width CV 13.1 % (11.6-14.6); RBC Distribution Width SD 44.3 fl (35.1-43.9); White Blood Count 4.4 K/mm3 (4.4-11.0)
[2021-05-17 10:43] LABS: ALB/GLOB Ratio 1.1 RATIO (0.9-2.4); AST(SGOT) 25 U/L (15-37); Alanine Aminotransfer ALT/SGPT 24 U/L (13-56); Albumin, Serum 3.6 g/dL (3.2-5.0); Alkaline Phosphatase 92 U/L (45-117); Anion Gap 4 (5-15); BUN 27 mg/dL (7-18); BUN/Creat Ratio 36.3 RATIO (10-20); Calcium,Total 8.8 mg/dL (8.5-10.1); Chloride 106 mmol/L (98-107); Cholesterol 182 mg/dL (200); Creatinine, Serum 0.74 mg/dL (0.55-1.02); EST Glomerular Filtration Rate 80 mL/min (>60); Est Glom Filt Rate - Afr Amer 97 mL/min (>60); Globulin 3.4 g/dL (2.2-4.2); Glucose 87 mg/dL (74-106); High Density Lipoprotein 111 mg/dL; Sodium Level 141 mmol/L (136-145); Triglycerides 38 mg/dL; Very Low Density Lipoprotein 8 mg/dL (5-40)
[2021-05-17 12:17] LABS: Hemoglobin A1c 5.5 % (3.8-5.6)
== END 2021-05-17 23:59 | disposition home or self-care (01) ==
PROVIDERS: PCP Internal Medicine; Visit Provider Internal Medicine
DX: R73.09 Other abnormal glucose (principal); I70.8 Atherosclerosis of other arteries
CPT/HCPCS: 36415; 80053; 80061; 83036; 85025

== ENCOUNTER → 2021-09-02 | Outpatient (CLI) | payer MEDICARE, SELFPAY ==
[2021-09-02 09:09] LABS: Absolute Lymphocyte Count 1.66 X10^3/uL (0.83-4.51); Absolute Neutrophil Count 1.9 X10^3/uL (2.0-7.7); Basophil# 0.05 X10^3/uL; Basophil% 1.2 % (0-1); Eosinophils% 4.7 % (0-5); Hematocrit 39.7 % (37-47); Hemoglobin 13.1 g/dL (12.0-15.0); Lymphocyte # 1.66 X10^3/ul (0.83-4.51); Lymphocyte % 38.9 % (19-41); Mean Corpuscular Hgb 30.1 pg (27.0-32.0); Mean Corpuscular Volume 91.3 fL (81-99); Monocyte# 0.43 X10^3/uL; Monocyte% 10.1 % (0-10); NRBC Flagged by Analyzer 0 % (0-5); Neutrophil # 1.92 X10^3/uL (2.7-7.7); Neutrophil % 44.9 % (47-70); Platelet Count 200 K/mm3 (150-450); RBC Distribution Width CV 13.2 % (11.6-14.6); RBC Distribution Width SD 44.4 fl (35.1-43.9); Red Blood Count 4.35 M/mm3 (4.2-5.4); White Blood Count 4.3 K/mm3 (4.4-11.0)
[2021-09-02 09:36] LABS: Hemoglobin A1c 5.5 % (3.8-5.6)
[2021-09-02 10:08] LABS: Vitamin D,25 Hydroxy 35.2 ng/mL
[2021-09-02 10:14] LABS: ALB/GLOB Ratio 1.1 RATIO (0.9-2.4); AST(SGOT) 30 U/L (15-37); Alanine Aminotransfer ALT/SGPT 20 U/L (13-56); Albumin, Serum 3.5 g/dL (3.2-5.0); Alkaline Phosphatase 62 U/L (45-117); Anion Gap 4 (5-15); BUN 22 mg/dL (7-18); BUN/Creat Ratio 27.2 RATIO (10-20); Calcium,Total 8.4 mg/dL (8.5-10.1); Chloride 110 mmol/L (98-107); Creatinine, Serum 0.81 mg/dL (0.55-1.02); EST Glomerular Filtration Rate 73 mL/min (>60); Est Glom Filt Rate - Afr Amer 88 mL/min (>60); Globulin 3.3 g/dL (2.2-4.2); Glucose 92 mg/dL (74-106); Potassium 4.3 mmol/L (3.5-5.1); Protein, Total 6.8 g/dL (6.4-8.2); Sodium Level 141 mmol/L (136-145); Thyroid Stim Hormone (TSH) 3.51 uIU/mL (0.358-3.74)
== END | disposition home or self-care (01) ==
LOC: LAB 08:39
PROVIDERS: PCP Internal Medicine; Referring Provider Internal Medicine; Visit Provider Internal Medicine
DX: I49.9 Cardiac arrhythmia, unspecified (principal); M81.0 Age-related osteoporosis without current pathological fracture; R73.09 Other abnormal glucose
CPT/HCPCS: 36415; 80053; 82306; 83036; 84443; 85025

== ENCOUNTER → 2021-10-08 | Outpatient (CLI) | payer MEDICARE, SELFPAY ==
--- NOTE | 2021-10-08 14:01 | BI_ITS ---
MAMMOGRAPHY - BILATERAL SCREENING REASON FOR EXAM: Female, 81 years old. Routine annual screening examination. PERTINENT HISTORY: Mother with breast cancer. TECHNIQUE: Digital bilateral breast charlotte (3D mammographic acquisition) in the CC and MLO projections. 2-D mediolateral oblique (MLO) and craniocaudad (CC) views of both breasts were obtained. CAD: Full Field Digital Mammography with Computer Added Detection was performed. COMPARISON: Comparison is made with prior study dated 09/02/2020 and 09/02/2019. FINDINGS: Breast Composition: The breasts are heterogeneously dense, which may obscure small masses. There are no dominant masses or suspicious calcifications. No other significant abnormalities are identified. There has been no significant change since the prior study. BI/SCRN MAMM (CAD)W/CHARLOTTE BILAT IMPRESSION: Stable bilateral screening mammogram. Yearly follow-up mammogram recommended. (A) ASSESSMENT CATEGORY: BIRADS Category 1: Negative. A letter regarding these results will be sent to the patient by the facility within 30 days. Approximately 10% of breast cancers are not detected by mammography. A normal mammogram should not delay biopsy of a clinically suspicious abnormality. [id number] Electronically Signed: Graham Rivera MD at 10:22 EDT ,
== END | disposition home or self-care (01) ==
LOC: OPBI 14:00
PROVIDERS: PCP Internal Medicine; Visit Provider Internal Medicine
DX: Z12.31 Encounter for screening mammogram for malignant neoplasm of breast (principal); Z80.3 Family history of malignant neoplasm of breast
CPT/HCPCS: 77063; 77067

== ENCOUNTER → 2022-02-14 | Outpatient (CLI) | payer MEDICARE, SELFPAY ==
--- NOTE | 2022-02-14 09:39 | STRESSREP ---
Stress Test Report Exercise myocardial perfusion stress test. 81-year-old lady with a history of chest pain Stress protocol: Resting EKG demonstrates sinus bradycardia with a rate of 57 bpm bpm resting blood pressure is 102/62 mmHg. The patient exercised according to the regular Wally protocol for a total duration of 6 minutes attaining a maximum heart rate of 133 bpm which was 95% of max impacted heart rate the maximum workload was 7 metabolic equivalents. At rest there were no ST or T wave changes noted suggest ischemia and at peak exercise upsloping ST changes only were noted we did not meet the criteria for ischemia. No clinical angina was noted the test was terminated due to the target heart rate being achieved. The peak blood pressure was 150/70 mmHg. Rate-pressure product was 17,300. Myocardial perfusion protocol. 11.2 mCi of technetium 99m sestamibi was injected at rest. The patient exercised according to regular Wally protocol for total duration of 6 minutes and at peak exercise 36 mCi of technetium 99m sestamibi was injected stress images were obtained stress and rest images were reconstructed in comparing the short axis vertical long and horizontal long axis. Gated images were also obtained. Perfusion SPECT analysis: Review of the stress images demonstrate normal uptake of tracer noted in all areas of the myocardium. The resting images similarly demonstrate normal uptake of tracer noted in all areas of the myocardium. No areas of reversibility are noted to suggest ischemia no previous infarct was noted. A small apical defect was noted and an infarct cannot be completely excluded. Gated SPECT analysis: The gated ejection fraction is 84%. Conclusion: Normal exercise myocardial perfusion stress test at a moderate workload. Preserved ejection fraction.
== END | disposition home or self-care (01) ==
LOC: CVS 06:27
PROVIDERS: PCP Internal Medicine; Visit Provider Internal Medicine
DX: R94.31 Abnormal electrocardiogram [ECG] [EKG] (principal); R00.1 Bradycardia, unspecified
CPT/HCPCS: 78452; 93017; A9500; A4216

== ENCOUNTER → 2022-03-16 | Outpatient (CLI) | payer MEDICARE, SELFPAY ==
--- NOTE | 2022-03-16 13:54 | ECHOD_ITS ---
Reason For Study: ABN STRESS Procedure This was a 2D Doppler, Color Flow transthoracic echocardiogram. Exam performed in department. Left Ventricle Normal LV size. Apical false tendon noted. Left ventricular systolic function is normal. The estimated ejection fraction is 70 %. Stage 2 diastolic dysfunction. No regional wall motion abnormalities noted. Right Ventricle Normal RV size. Normal systolic function. Atria The left atrium is mildly enlarged. The right atrium is mildly enlarged. No doppler evidence for ASD. Mitral Valve There is no mitral annular calcification. Normal mitral valve. Mild (1+) mitral valve insufficiency. Tricuspid Valve Normal tricuspid valve. Trivial tricuspid valve insufficiency. Right ventricular systolic pressure estimated to be 38 mmHg. Aortic Valve Trisinus/trileaflet aortic valve. Normal aortic valve. Trivial aortic valve insufficiency. Pulmonic Valve The pulmonic valve is not well visualized. Great Vessels Normal sized aortic root. Pericardium/Pleural Trivial pericardial effusion. There are no echocardiographic indications of cardiac tamponade. MMode/2D Measurements & Calculations LVIDd: 4.1 cm IVSd: 0.68 cm Ao root diam: 3.0 cm LVIDs: 3.0 cm LVPWd: 0.82 cm RVDd: 2.7 cm FS: 25.6 % LAV(MOD-bp): 71.7 ml LVAd ap4: 19.6 cm2 SV(MOD-sp4): 38.6 ml LAV(MOD-bp) Indexed: 44.3 ml/m2 LVLd ap4: 6.2 cm LAV(MOD-sp2): 75.6 ml EDV(MOD-sp4): 50.5 ml LAV(MOD-sp4): 67.4 ml EDV(sp4-el): 52.7 ml LVAs ap4: 8.2 cm2 LVLs ap4: 4.8 cm ESV(MOD-sp4): 11.9 ml ESV(sp4-el): 11.7 ml EF(MOD-sp4): 76.5 % EF(sp4-el): 77.8 % SV(sp4-el): 41.0 ml LA A4 area: 22.2 cm2 LA dimension(2D): 3.1 cm RA A4 area: 17.2 cm2 Time Measurements MV dec time: 0.21 sec Doppler Measurements & Calculations MV E max shabbir: 78.3 cm/sec Lat Peak E' Shabbir: 7.8 cm/sec Med Peak E' Shabbir: 8.8 cm/sec MV A max shabbir: 61.5 cm/sec E/E' lat: 10.1 E/E' med: 8.9 MV E/A: 1.3 MV V2 max: 98.6 cm/sec Ao V2 max: 153.8 cm/sec MV max P.9 mmHg MV dec slope: 382.9 cm/sec2 Ao max P.5 mmHg MV V2 mean: 53.2 cm/sec Ao V2 mean: 103.1 cm/sec MV mean P.4 mmHg Ao mean P.9 mmHg MV V2 VTI: 31.0 cm Ao V2 VTI: 37.3 cm AV (velocity ratio): 0.81 LV V1 max: 124.5 cm/sec PA V2 max: 82.6 cm/sec TR max shabbir: 297.5 cm/sec LV V1 max P.2 mmHg PA V2 mean: 57.6 cm/sec TR max P.4 mmHg LV V1 mean P.4 mmHg LV V1 mean: 87.6 cm/sec LV V1 VTI: 30.0 cm ECHO/Echo Complete Interpretation Summary Left ventricular systolic function is normal. The estimated ejection fraction is 70 %. Apical false tendon noted. The left atrium is mildly enlarged. The right atrium is mildly enlarged. Mild (1+) mitral valve insufficiency. Trivial tricuspid valve insufficiency. Trivial aortic valve insufficiency. Trivial pericardial effusion. There are no echocardiographic indications of cardiac tamponade. Right ventricular systolic pressure estimated to be 38 mmHg. Stage 2 diastolic dysfunction. Ordering Physician: Gia Grover Referring Physician: Gia Grover D.O. Performed By: Julianne Moran RCS
== END | disposition home or self-care (01) ==
LOC: CVS 13:53
PROVIDERS: PCP Internal Medicine; Visit Provider Internal Medicine
DX: R94.31 Abnormal electrocardiogram [ECG] [EKG] (principal)
CPT/HCPCS: 93306

== ENCOUNTER 2022-04-15 14:00 | Outpatient (RCR) | payer MEDICARE, SELFPAY ==
--- NOTE | 2022-03-18 14:39 | HP.PTEVAL ---
Patient's Visit Information GURDEEP PIERRE is a 81 year old F referred to Physical Therapy by Dr. Gia Grover DO with a diagnosis of B hip pain. Date of Evaluation: 03/18/22 Physical Therapist: Manohar Hodges DPT, OCS, CSCS - Visit Plan Frequency: 2x /Week Duration: 4-6 Weeks Plan: 2x/week for 4 weeks for... 1. ensure activitiy modification with consistent backa nd hip ROM and sleeping position using pillow under or b/w legs. 2. rollout and stretch HS/quads and pirformis with MH, teach pirformis stretch for HEP(already given HS and quad). 3. teach core adn hip strength protocol and progress to HEP with pics. - Subjective Having trouble with lateral hips and back, mostly in bed causing shifting to get comfortable. Off and on for years. Hard to get comfortable and wakes her up at night. Sitting for long time at computer can make her worse when she goes to get back. Pain up to 3/10 with trasnfers and at night. Activities are pretty normal including basic ADLS. Steps at home with rail are OK. Not employed. Enjoys gardening and reading. No regular exercises. Had therapy for back years ago. - Pain LBP, post hips Pain Intensity (Out of 10): 0 Pain Intensity Range: 0, 3 - Objective wALKS i SLIGHTLY STOOPED WITH SHORT STEPS BUT SAFE ADN i AND CONFIDENT. tRANSFERS BED AND CHAIR EASILY AND i. sTEPS RECIPROCAL WITH ONE RAIL. gOOD BALANCE. Lumbar AROM extension min limited and no pain, flexion mod limited and no pain, SB min limited and no pain. Hip PROM WFL and without pain, - FOX, - FADDIR. Very tight quads, psoas, piriformis and min tight ITB B today. knee and ankle aROM WFL. strength core 3/5, hip abd and extension 3+ B, flexion 4- B, knee flexiona nd ext 4 B. ankle strength 4 B. reflexes 2/3 patella and achilles. Sensation LE WNL to gross light touch. - slump, - SLR - Balance/Special Test Scores Functional Gait Assessment Score: 28 % Disability: 6.6700 Lower Extremity Functional Score: 66 - Goals Goal 1:: Patient I in appropriate management of ex stretch adn strength adn ROM Goal Time Frame: 4-6 Weeks Goal 2:: Pt sleep without interruption at night Goal Time Frame: 4-6 Weeks Goal 3:: Pt feel 75% better in overall pain level. Goal Time Frame: 4-6 Weeks - Rehabilitation Potential Physical Therapy Diagnosis: hip and LBP likely soft tissue in nature Rehabilitation Potential: Fair - Anticipated Interventions Patient/Client Instruction: Educate patient on: Condition, Plan of Care For the Purpose of:: To decrease pain, To decrease swelling/inflammation, To improve muscle performance and motor function, To increase tolerance to activity/condition/position, To improve ability of physical actions for home/community/work/leisure Therapeutic Exercise to Include: Strength training, Postural training, Flexibilty training, Passive ROM, Active ROM For the Purpose of:: To decrease pain, To increase ROM, To improve nutrient delivery to tissue, To improve muscle performance and motor function, To increase tolerance to activity/condition/position Manual Therapy Techniques to Include: Passive ROM, Soft tissue mobilization For the Purpose of:: To decrease pain, To increase ROM, To improve nutrient delivery to tissue Thermo therapy (hot pack): Yes For the Purpose of:: To improve nutrient delivery to tissue Thank you for the opportunity to evaluate your patient. For Medicare and Medicare HMO plans, please review the plan of care and approve it. It will need to be FAXED BACK to us at [phone] for Medicare purposes. For Medicare only, by signing this I certify the plan of care. Please let me know if there are questions or concerns regarding this plan of care. Physician Signature: Date:
--- NOTE | 2022-04-15 14:50 | HP.PTREVAL_ITS ---
Dr. Gia Grover, DO, It has been my pleasure to treat GURDEEP PIERRE over the last 10 visits for B hip pain. Please see the progress note below for an update on the physical therapy plan of care! Subjective: Doing better. Up and down, some nights are sore and others are good. Overall less sore. Soreness on bad nights keeps her moving, It is still i n LB and sides of hips. No problem during day unless sits too long. Activities pretty normal if she paces herself. Does HEP daily. Objective/Function: Good LB ROM, still tight with extension, no pain. Progressing nicely toward goals albeit slow Plan Plan: f/u 3 weeks as needed to ensure compliance and progression(may need GTB) Balance/Gait/Functional tests - Balance/Special Test Scores Functional Gait Assessment Score: 28 % Disability: 6.6700 Lower Extremity Functional Score: 63 Goals Goal 1:: Patient I in appropriate management of ex stretch adn strength adn ROM Goal Time Frame: 4-6 Weeks Goal Progress: Goal Met Goal 2:: Pt sleep without interruption at night Goal Time Frame: 4-6 Weeks Goal Progress: Progressing Goal 3:: Pt feel 75% better in overall pain level. Goal Time Frame: 4-6 Weeks Goal Progress: 60% Anticipated Interventions Patient/Client Instruction: Educate patient on: Condition, Plan of Care For the Purpose of:: To decrease pain, To decrease swelling/inflammation, To improve muscle performance and motor function, To increase tolerance to activity/condition/position, To improve ability of physical actions for home/community/work/leisure Therapeutic Exercise to Include: Strength training, Postural training, Flexibilty training, Passive ROM, Active ROM For the Purpose of:: To decrease pain, To increase ROM, To improve nutrient delivery to tissue, To improve muscle performance and motor function, To increase tolerance to activity/condition/position Manual Therapy Techniques to Include: Passive ROM, Soft tissue mobilization For the Purpose of:: To decrease pain, To increase ROM, To improve nutrient delivery to tissue Thermo therapy (hot pack): Yes For the Purpose of:: To improve nutrient delivery to tissue Please do not hesitate to contact me at [phone] by phone or if you have questions or concerns regarding this new plan of care! Sincerely, Manohar Hodges, DPT, OCS, CSCS
--- NOTE | 2022-06-22 09:17 | HP.PT.NRP ---
GURDEEP PIERRE was seen in my office for initial evaluation on 03/18/22. The following Plan of Care was established for this patient: Initial Frequency: 2x /Week Initial Duration: 4-6 Weeks Patient/Client Instruction: Educate patient on: Condition, Plan of Care For the Purpose of:: To decrease pain, To decrease swelling/inflammation, To improve muscle performance and motor function, To increase tolerance to activity/condition/position, To improve ability of physical actions for home/community/work/leisure Therapeutic Exercise to Include: Strength training, Postural training, Flexibilty training, Passive ROM, Active ROM For the Purpose of:: To decrease pain, To increase ROM, To improve nutrient delivery to tissue, To improve muscle performance and motor function, To increase tolerance to activity/condition/position Manual Therapy Techniques to Include: Passive ROM, Soft tissue mobilization For the Purpose of:: To decrease pain, To increase ROM, To improve nutrient delivery to tissue Thermo therapy (hot pack): Yes For the Purpose of:: To improve nutrient delivery to tissue This patient was last seen in our office 04/15/22. Pertinent comments regarding their Physical therapy will appear below: Pt seen 10 visits of POC and was 60% better. she was to f/u three weeks later to ensure compliance but did not schedule or attend any further visits. at this point, it has been over 2 months and I will discontinue due to nonattendance. At this point I will be discontinuing this patient from physical therapy. I would be happy to see this patient again in the future if found appropriate by the physician. Thank you! Manohar Hodges, DPT, OCS, CSCS Balance/Gait/Functional tests - Balance/Special Test Scores Functional Gait Assessment Score: 28 % Disability: 6.6700 Lower Extremity Functional Score: 63
== END 2022-04-15 19:00 | disposition home or self-care (01) ==
LOC: PT 14:00
PROVIDERS: PCP Internal Medicine; Referring Provider Internal Medicine; Visit Provider Internal Medicine
DX: M25.551 Pain in right hip (principal)
CPT/HCPCS: 97110; 97140; 97161; 97530

== ENCOUNTER 2022-05-24 08:27 | Outpatient (CLI) | payer MEDICARE, SELFPAY ==
[2022-05-24 09:29] LABS: Absolute Lymphocyte Count 2.04 X10^3/uL (0.83-4.51); Absolute Neutrophil Count 2.5 X10^3/uL (2.0-7.7); Basophil# 0.06 X10^3/uL; Basophil% 1.1 % (0-1); Eosinophil# 0.19 X10^3/uL; Eosinophils% 3.6 % (0-5); Hematocrit 41.4 % (37-47); Hemoglobin 13.3 g/dL (12.0-15.0); Lymphocyte # 2.04 X10^3/ul (0.83-4.51); Lymphocyte % 38.6 % (19-41); Mean Corp Hgb Conc 32.1 g/dL (32-36); Mean Corpuscular Hgb 30.2 pg (27.0-32.0); Mean Corpuscular Volume 94.1 fL (81-99); Mean Platelet Vol. 10.3 fl (6.2-12.0); Monocyte# 0.49 X10^3/uL; Monocyte% 9.3 % (0-10); NRBC Flagged by Analyzer 0 % (0-5); Neutrophil # 2.49 X10^3/uL (2.7-7.7); Neutrophil % 47.2 % (47-70); Platelet Count 195 K/mm3 (150-450); RBC Distribution Width SD 45.1 fl (35.1-43.9); White Blood Count 5.3 K/mm3 (4.4-11.0)
[2022-05-24 09:49] LABS: ALB/GLOB Ratio 1.2 RATIO (0.9-2.4); AST(SGOT) 25 U/L (15-37); Alanine Aminotransfer ALT/SGPT 22 U/L (13-56); Albumin, Serum 3.7 g/dL (3.2-5.0); Alkaline Phosphatase 57 U/L (45-117); Anion Gap 5 (5-15); BUN 26 mg/dL (7-18); BUN/Creat Ratio 32.5 RATIO (10-20); Chloride 109 mmol/L (98-107); Cholesterol 198 mg/dL (200); EST Glomerular Filtration Rate 73 mL/min (>60); Est Glom Filt Rate - Afr Amer 89 mL/min (>60); Globulin 3.2 g/dL (2.2-4.2); Glucose 96 mg/dL (74-106); High Density Lipoprotein 112 mg/dL; Potassium 4.2 mmol/L (3.5-5.1); Protein, Total 6.9 g/dL (6.4-8.2); Sodium Level 143 mmol/L (136-145); Triglycerides 45 mg/dL; Very Low Density Lipoprotein 9 mg/dL (5-40)
[2022-05-24 09:51] LABS: Vitamin D,25 Hydroxy 51.3 ng/mL
[2022-05-24 09:53] LABS: Hemoglobin A1c 5.6 % (3.8-5.6)
== END 2022-05-24 23:59 | disposition home or self-care (01) ==
LOC: LAB 08:29
PROVIDERS: PCP Internal Medicine; Referring Provider Internal Medicine; Visit Provider Internal Medicine
DX: R73.09 Other abnormal glucose (principal); D72.820 Lymphocytosis (symptomatic); M81.0 Age-related osteoporosis without current pathological fracture; I70.8 Atherosclerosis of other arteries
CPT/HCPCS: 36415; 80053; 80061; 82306; 83036; 85025

== ENCOUNTER → 2022-09-02 | Outpatient (CLI) | payer MEDICARE, SELFPAY ==
[2022-09-02 10:32] LABS: Microalbumin,Random Urine 5.7 mg/L (NO RANGE EST.); Microalbumin:Creatinine Ratio 11.4 mg/g CRE (<30 mg/g CRE)
[2022-09-02 10:54] LABS: AST(SGOT) 26 U/L (15-37); Alanine Aminotransfer ALT/SGPT 19 U/L (13-56); Albumin, Serum 3.5 g/dL (3.2-5.0); Alkaline Phosphatase 56 U/L (45-117); Anion Gap 3 (5-15); BUN 25 mg/dL (7-18); BUN/Creat Ratio 32.3 RATIO (10-20); Calcium,Total 8.7 mg/dL (8.5-10.1); Chloride 109 mmol/L (98-107); Cholesterol 181 mg/dL (200); Creatinine, Serum 0.78 mg/dL (0.55-1.02); EST Glomerular Filtration Rate 76 mL/min (>60); Est Glom Filt Rate - Afr Amer 92 mL/min (>60); Globulin 3.4 g/dL (2.2-4.2); Glucose 82 mg/dL (74-106); High Density Lipoprotein 103 mg/dL; Potassium 4.3 mmol/L (3.5-5.1); Protein, Total 6.9 g/dL (6.4-8.2); Sodium Level 141 mmol/L (136-145); Triglycerides 71 mg/dL; Very Low Density Lipoprotein 14 mg/dL (5-40)
[2022-09-02 11:15] LABS: Absolute Lymphocyte Count 1.85 X10^3/uL (0.83-4.51); Basophil# 0.06 X10^3/uL; Basophil% 1.3 % (0-1); Eosinophil# 0.19 X10^3/uL; Eosinophils% 4.1 % (0-5); Hematocrit 40.8 % (37-47); Hemoglobin 13.1 g/dL (12.0-15.0); Lymphocyte # 1.85 X10^3/ul (0.83-4.51); Mean Corp Hgb Conc 32.1 g/dL (32-36); Mean Corpuscular Hgb 30.3 pg (27.0-32.0); Mean Corpuscular Volume 94.4 fL (81-99); Mean Platelet Vol. 10.5 fl (6.2-12.0); Monocyte# 0.51 X10^3/uL; NRBC Flagged by Analyzer 0 % (0-5); Neutrophil # 1.99 X10^3/uL (2.7-7.7); Neutrophil % 43.2 % (47-70); Platelet Count 212 K/mm3 (150-450); RBC Distribution Width CV 13.2 % (11.6-14.6); RBC Distribution Width SD 45.5 fl (35.1-43.9); Red Blood Count 4.32 M/mm3 (4.2-5.4); White Blood Count 4.6 K/mm3 (4.4-11.0)
[2022-09-02 12:46] LABS: Hemoglobin A1c 5.3 % (3.8-5.6)
== END | disposition home or self-care (01) ==
PROVIDERS: PCP Internal Medicine; Referring Provider Internal Medicine; Visit Provider Internal Medicine
DX: R73.09 Other abnormal glucose (principal); D72.820 Lymphocytosis (symptomatic); I70.8 Atherosclerosis of other arteries
CPT/HCPCS: 36415; 80053; 80061; 82043; 82570; 83036; 85025

== ENCOUNTER → 2022-10-27 | Outpatient (CLI) | payer MEDICARE, SELFPAY ==
--- NOTE | 2022-10-27 14:27 | BI_ITS ---
MAMMOGRAPHY - BILATERAL SCREENING REASON FOR EXAM: Female, 82 years old. Routine annual screening examination. PERTINENT HISTORY: Mother with breast cancer. TECHNIQUE: Digital bilateral breast charlotte (3D mammographic acquisition) in the CC and MLO projections. 2-D mediolateral oblique (MLO) and craniocaudad (CC) views of both breasts were obtained. CAD: Full Field Digital Mammography with Computer Added Detection was performed. COMPARISON: Screening mammogram from 10/08/2021, 09/02/2020. FINDINGS: Breast Composition: The breasts are heterogeneously dense, which may obscure small masses. There are no dominant masses or suspicious calcifications. No other significant abnormalities are identified. There has been no significant change since the prior study. BI/SCRN MAMM (CAD)W/CHARLOTTE BILAT IMPRESSION: Stable bilateral screening mammogram. Yearly follow-up mammogram recommended. (A) ASSESSMENT CATEGORY: BIRADS Category 1: Negative. A letter regarding these results will be sent to the patient by the facility within 30 days. Approximately 10% of breast cancers are not detected by mammography. A normal mammogram should not delay biopsy of a clinically suspicious abnormality. Electronically Signed: Christian Gray DO at 8:23 EDT ,
--- NOTE | 2022-10-27 14:31 | BD_ITS ---
STUDY: DUAL ENERGY X-RAY ABSORPTIOMETRY / DXA REASON FOR EXAM: Female, 82 years old. [id number] TECHNIQUE: Bone Mineral Density (BMD) measurements of lumbar spine and bilateral hips were obtained. COMPARISON: Comparison is made with prior study dated April 21, 2020. FINDINGS: Lumbar Spine (L1-L4): g/cm2 (0.849) / T-score (-1.5) / Z-score (1.1) Findings are suggestive of osteopenia with a low fracture risk. Left Femur Total: g/cm2 (0.768) / T-score (-1.4) / Z-score (0.7) Left Femoral Neck: g/cm2 (0.742) / T-score (-1.0) / Z-score (1.4) Right Femur Total: g/cm2 (0.774) / T-score (-1.4) / Z-score (0.7) Right Femoral Neck: g/cm2 (0.663) / T-score (-1.7) / Z-score (0.7) The T-Scores on the most recent prior examination were: Lumbar Spine (L1-L4): There has been improvement of bone density since the previous examination. Left Femur Total: which represents a worsening of 5.9%. Right Femur Total: which represents a worsening of 1.4%. BD/Dexa Bone Density Study IMPRESSION: The patient is considered osteopenic as outlined below according to World Trino Organization (WHO) criteria with a moderate fracture risk. There has been worsening of bone density since the previous examination. Reference Information: The T-score is the number of standard deviations above or below the standard which is normal for young adults at their peak bone mineral density. The World Health Organization (WHO) interprets the T-scores as follows: Above -1 Normal bone density Between -1 and -2.5 Osteopenia Equal to / or below -2.5 Osteoporosis As a practical clinical guideline, osteopenia may be graded as follows: Mild -1 through -1.5 Moderate -1.6 through -2.0 Severe -2.1 through -2.4 The Z-score is the number of standard deviations above or below age-matched controls. A Z-score of less than -1.5 would be considered abnormal. References: 1. NIH Osteoporosis and Related Bone Diseases www osteo.org 2. International Society for Clinical Densitometry www iscd.org 3. National Osteoporosis Foundation www nof.org Electronically Signed: Graham Rivera MD at 15:42 EDT ,
== END | disposition home or self-care (01) ==
LOC: OPBD 14:25
PROVIDERS: PCP Internal Medicine; Referring Provider Internal Medicine; Visit Provider Internal Medicine
DX: Z12.31 Encounter for screening mammogram for malignant neoplasm of breast (principal); Z78.0 Asymptomatic menopausal state; Z85.3 Personal history of malignant neoplasm of breast
CPT/HCPCS: 77063; 77067; 77080

== ENCOUNTER → 2023-06-09 | Outpatient (CLI) | payer MEDICARE, SELFPAY ==
[2023-06-09 09:27] LABS: Absolute Lymphocyte Count 2.13 X10^3/uL (0.83-4.51); Absolute Neutrophil Count 2.1 X10^3/uL (2.0-7.7); Basophil# 0.06 X10^3/uL; Basophil% 1.2 % (0-1); Eosinophil# 0.19 X10^3/uL; Eosinophils% 3.8 % (0-5); Hematocrit 40.1 % (37-47); Hemoglobin 12.9 g/dL (12.0-15.0); Lymphocyte # 2.13 X10^3/ul (0.83-4.51); Mean Corp Hgb Conc 32.2 g/dL (32-36); Mean Corpuscular Hgb 29.9 pg (27.0-32.0); Mean Platelet Vol. 10.2 fl (6.2-12.0); Monocyte# 0.47 X10^3/uL; Monocyte% 9.5 % (0-10); NRBC Flagged by Analyzer 0 % (0-5); Neutrophil % 42.5 % (47-70); Platelet Count 188 K/mm3 (150-450); RBC Distribution Width CV 13.4 % (11.6-14.6); RBC Distribution Width SD 45.9 fl (35.1-43.9); Red Blood Count 4.31 M/mm3 (4.2-5.4)
[2023-06-09 09:38] LABS: Hemoglobin A1c 5.4 % (3.8-5.6)
[2023-06-09 09:50] LABS: ALB/GLOB Ratio 1.1 RATIO (0.9-2.4); AST(SGOT) 26 U/L (15-37); Alanine Aminotransfer ALT/SGPT 20 U/L (13-56); Albumin, Serum 3.6 g/dL (3.2-5.0); Alkaline Phosphatase 55 U/L (45-117); Anion Gap 3 (5-15); BUN 31 mg/dL (7-18); BUN/Creat Ratio 37.5 RATIO (10-20); Calcium,Total 9.1 mg/dL (8.5-10.1); Chloride 111 mmol/L (98-107); Creatinine, Serum 0.83 mg/dL (0.55-1.02); EST Glomerular Filtration Rate 70 mL/min (>60); Est Glom Filt Rate - Afr Amer 85 mL/min (>60); Globulin 3.3 g/dL (2.2-4.2); Glucose 94 mg/dL (74-106); Potassium 4.3 mmol/L (3.5-5.1); Protein, Total 6.9 g/dL (6.4-8.2); Sodium Level 143 mmol/L (136-145)
[2023-06-09 12:56] LABS: Microalbumin,Random Urine 20.4 mg/L (NO RANGE EST.); Microalbumin:Creatinine Ratio 17.3 mg/g CRE (<30 mg/g CRE)
== END | disposition home or self-care (01) ==
LOC: LAB 08:40
PROVIDERS: PCP Internal Medicine; Referring Provider Internal Medicine; Visit Provider Internal Medicine
DX: R73.09 Other abnormal glucose (principal)
CPT/HCPCS: 36415; 80053; 82043; 82570; 83036; 85025

== ENCOUNTER → 2023-08-15 | Outpatient (CLI) | payer MEDICARE, SELFPAY ==
--- NOTE | 2023-08-15 08:52 | ECHOD_ITS ---
Reason For Study: CHF, PHTN Procedure This was a 2D Doppler, Color Flow transthoracic echocardiogram. Exam performed in department. Left Ventricle Normal LV size. Left ventricular systolic function is normal. The left ventricular ejection fraction is 65 %. Stage 1 diastolic dysfunction. No regional wall motion abnormalities noted. Right Ventricle Normal RV size. Normal systolic function. Atria Normal left atrium. Normal right atrium. Mitral Valve Normal mitral valve. Tricuspid Valve Normal tricuspid valve. Mild tricuspid valve insufficiency. Pulmonary artery systolic pressure is 26 mmHg. Aortic Valve Normal aortic valve. Trisinus/trileaflet aortic valve. Pulmonic Valve Normal pulmonic valve. Great Vessels Normal aortic root. The pulmonary artery is normal size. Normal inferior vena cava. Pericardium/Pleural No pericardial effusion. MMode/2D Measurements & Calculations LVIDd: 4.0 cm IVSd: 0.75 cm Ao root diam: 3.0 cm LVIDs: 2.6 cm LVPWd: 0.99 cm LA dimension: 3.2 cm RVDd: 3.3 cm FS: 36.5 % LAV(MOD-bp): 58.8 ml LVAd ap4: 19.2 cm2 SV(MOD-sp4): 31.8 ml LAV(MOD-bp) Indexed: 36.1 ml/m2 LVLd ap4: 6.2 cm LAV(MOD-sp2): 62.1 ml EDV(MOD-sp4): 47.8 ml LAV(MOD-sp4): 52.4 ml EDV(sp4-el): 50.2 ml LVAs ap4: 9.9 cm2 LVLs ap4: 5.5 cm ESV(MOD-sp4): 16.0 ml ESV(sp4-el): 15.2 ml EF(MOD-sp4): 66.5 % EF(sp4-el): 69.8 % SV(sp4-el): 35.0 ml LA A4 area: 19.0 cm2 RA A4 area: 15.0 cm2 TAPSE: 2.2 cm Time Measurements MV dec time: 0.23 sec Doppler Measurements & Calculations MV E max shabbir: 65.3 cm/sec Lat Peak E' Shabbir: 9.4 cm/sec Med Peak E' Shabbir: 10.6 cm/sec MV A max shabbir: 70.1 cm/sec E/E' lat: 7.0 E/E' med: 6.2 MV E/A: 0.93 MV V2 max: 90.3 cm/sec MV P1/2t max shabbir: 86.7 cm/sec Ao V2 max: 130.6 cm/sec MV max P.3 mmHg MV P1/2t: 79.8 msec Ao max P.8 mmHg MV V2 mean: 47.5 cm/sec MV dec slope: 318.1 cm/sec2 Ao V2 mean: 90.9 cm/sec MV mean P.1 mmHg Ao mean P.8 mmHg MV V2 VTI: 29.2 cm MVA(P1/2t): 2.8 cm2 Ao V2 VTI: 33.5 cm AV (velocity ratio): 0.79 LV V1 max: 112.5 cm/sec PA V2 max: 84.0 cm/sec TR max shabbir: 238.7 cm/sec LV V1 max P.1 mmHg PA V2 mean: 61.3 cm/sec TR max P.8 mmHg LV V1 mean P.7 mmHg LV V1 mean: 76.5 cm/sec LV V1 VTI: 26.5 cm ECHO/Echo Complete Interpretation Summary Normal LV size. Left ventricular systolic function is normal. The left ventricular ejection fraction is 65 %. Stage 1 diastolic dysfunction. Pulmonary artery systolic pressure is 26 mmHg. Ordering Physician: Jason Angeles V Referring Physician: Gia Grover Performed By: Terry Epps RCS
== END | disposition home or self-care (01) ==
LOC: CVS 08:50
PROVIDERS: PCP Internal Medicine; Referring Provider Internal Medicine Pulmonary Disease; Visit Provider Internal Medicine Pulmonary Disease
DX: I27.20 Pulmonary hypertension, unspecified (principal); I50.31 Acute diastolic (congestive) heart failure
CPT/HCPCS: 93306

== ENCOUNTER → 2023-09-13 | Outpatient (CLI) | payer MEDICARE, SELFPAY ==
[2023-09-13 08:57] LABS: Bacteria 0 SEEN /hpf (None Seen); Mucous, Urine 0 SEEN /hpf (<or=2+); Red Blood Cells-Urine 0 SEEN /hpf (0-5); Squamous Epithelial Cells - UA 0 SEEN /hpf (5-10)
[2023-09-13 09:18] LABS: Color, Urine Yellow (Yellow); Glucose, Dipstick Normal (Normal); Ketone-Dipstick Negative (Negative); Leukocyte Esterase-Dipstick 100 /ul (Negative); Nitrite-Dipstick Negative (Negative); Occult Blood-Urine Negative /ul (Negative); Protein-Dipstick 15 mg/dl (Negative); Urine Bilirubin Dipstick Negative (Negative); Urine Clarity Sl. Cloudy (Clear); Urine Urobilinogen Normal (Normal)
[2023-09-13 09:19] LABS: Absolute Lymphocyte Count 1.81 X10^3/uL (0.83-4.51); Absolute Neutrophil Count 2.3 X10^3/uL (2.0-7.7); Basophil# 0.06 X10^3/uL; Basophil% 1.2 % (0-1); Eosinophil# 0.16 X10^3/uL; Eosinophils% 3.3 % (0-5); Hemoglobin 13.1 g/dL (12.0-15.0); Lymphocyte # 1.81 X10^3/ul (0.83-4.51); Lymphocyte % 37.1 % (19-41); Mean Corp Hgb Conc 32.8 g/dL (32-36); Mean Corpuscular Hgb 30.3 pg (27.0-32.0); Mean Corpuscular Volume 92.4 fL (81-99); Mean Platelet Vol. 9.9 fl (6.2-12.0); Monocyte# 0.56 X10^3/uL; Monocyte% 11.5 % (0-10); NRBC Flagged by Analyzer 0 % (0-5); Neutrophil # 2.29 X10^3/uL (2.7-7.7); Neutrophil % 46.9 % (47-70); Platelet Count 195 K/mm3 (150-450); RBC Distribution Width CV 13.2 % (11.6-14.6); RBC Distribution Width SD 44.6 fl (35.1-43.9); Red Blood Count 4.33 M/mm3 (4.2-5.4); White Blood Count 4.9 K/mm3 (4.4-11.0)
[2023-09-13 09:37] LABS: White Blood Cells 10-25 SEEN /hpf (0-5)
[2023-09-13 09:50] LABS: Vitamin D,25 Hydroxy 59.3 ng/mL
[2023-09-13 09:56] LABS: ALB/GLOB Ratio 1.1 RATIO (0.9-2.4); AST(SGOT) 25 U/L (15-37); Alanine Aminotransfer ALT/SGPT 18 U/L (13-56); Albumin, Serum 3.7 g/dL (3.2-5.0); Alkaline Phosphatase 57 U/L (45-117); Anion Gap 3 (5-15); BUN 30 mg/dL (7-18); BUN/Creat Ratio 32.9 RATIO (10-20); Calcium,Total 8.9 mg/dL (8.5-10.1); Chloride 105 mmol/L (98-107); Creatinine, Serum 0.91 mg/dL (0.55-1.02); EST Glomerular Filtration Rate 63 mL/min (>60); Est Glom Filt Rate - Afr Amer 76 mL/min (>60); Globulin 3.3 g/dL (2.2-4.2); Glucose 90 mg/dL (74-106); Potassium 4.1 mmol/L (3.5-5.1); Sodium Level 137 mmol/L (136-145)
[2023-09-13 10:03] LABS: Hemoglobin A1c 5.3 % (3.8-5.6)
== END | disposition home or self-care (01) ==
LOC: LAB 08:40
PROVIDERS: PCP Internal Medicine; Referring Provider Internal Medicine; Visit Provider Internal Medicine
DX: R73.09 Other abnormal glucose (principal); D72.820 Lymphocytosis (symptomatic); M81.0 Age-related osteoporosis without current pathological fracture
CPT/HCPCS: 36415; 80053; 81001; 82306; 83036; 85025

== ENCOUNTER → 2023-11-01 | Outpatient (CLI) | payer MEDICARE, SELFPAY ==
--- NOTE | 2023-11-01 14:42 | BI_ITS ---
MAMMOGRAPHY - BILATERAL SCREENING REASON FOR EXAM: Female, 83 years old. Routine annual screening examination. PERTINENT HISTORY: Mother with breast cancer. TECHNIQUE: Digital bilateral breast charlotte (3D mammographic acquisition) in the CC and MLO projections. 2-D mediolateral oblique (MLO) and craniocaudad (CC) views of both breasts were obtained. CAD: Full Field Digital Mammography with Computer Added Detection was performed. COMPARISON: Comparison is made with prior study October 27, 2022 and October 08, 2021. FINDINGS: Breast Composition: The breasts are heterogeneously dense, which may obscure small masses. There are no dominant masses or suspicious calcifications. No other significant abnormalities are identified. There has been no significant change since the prior study. BI/SCRN MAMM (CAD)W/CHARLOTTE BILAT IMPRESSION: Stable bilateral screening mammogram. Yearly follow-up mammogram recommended. (A) ASSESSMENT CATEGORY: BIRADS Category 1: Negative. A letter regarding these results will be sent to the patient by the facility within 30 days. Approximately 10% of breast cancers are not detected by mammography. A normal mammogram should not delay biopsy of a clinically suspicious abnormality. [id number] Electronically Signed: Graham Rivera MD at 15:07 EDT ,
== END | disposition home or self-care (01) ==
LOC: OPBI 14:40
PROVIDERS: PCP Internal Medicine; Referring Provider Internal Medicine; Visit Provider Internal Medicine
DX: Z12.31 Encounter for screening mammogram for malignant neoplasm of breast (principal); Z80.3 Family history of malignant neoplasm of breast
CPT/HCPCS: 77063; 77067

== ENCOUNTER → 2024-01-11 | Outpatient (CLI) | payer MEDICARE, SELFPAY | END | disposition home or self-care (01) | LOC: US 14:18 | PROVIDERS: PCP Internal Medicine; Referring Provider Internal Medicine; Visit Provider Internal Medicine | DX: E04.1 Nontoxic single thyroid nodule (principal) | CPT/HCPCS: 76536 ==

== ENCOUNTER → 2024-03-19 | Outpatient (CLI) | payer MEDICARE, SELFPAY ==
[2024-03-19 09:00] LABS: Absolute Lymphocyte Count 2.01 X10^3/uL (0.83-4.51); Absolute Neutrophil Count 2.4 X10^3/uL (2.0-7.7); Basophil# 0.06 X10^3/uL; Basophil% 1.1 % (0-1); Eosinophil# 0.25 X10^3/uL; Eosinophils% 4.7 % (0-5); Hematocrit 41.4 % (37-47); Hemoglobin 13.2 g/dL (12.0-15.0); Lymphocyte # 2.01 X10^3/ul (0.83-4.51); Lymphocyte % 38.1 % (19-41); Mean Corp Hgb Conc 31.9 g/dL (32-36); Mean Corpuscular Hgb 29.3 pg (27.0-32.0); Mean Corpuscular Volume 91.8 fL (81-99); Monocyte# 0.55 X10^3/uL; Monocyte% 10.4 % (0-10); NRBC Flagged by Analyzer 0 % (0-5); Neutrophil # 2.38 X10^3/uL (2.7-7.7); Neutrophil % 45.3 % (47-70); Platelet Count 203 K/mm3 (150-450); RBC Distribution Width CV 13.2 % (11.6-14.6); RBC Distribution Width SD 44.3 fl (35.1-43.9); Red Blood Count 4.51 M/mm3 (4.2-5.4); White Blood Count 5.3 K/mm3 (4.4-11.0)
[2024-03-19 09:27] LABS: ALB/GLOB Ratio 1.1 RATIO (0.9-2.4); AST(SGOT) 25 U/L (15-37); Alanine Aminotransfer ALT/SGPT 17 U/L (13-56); Albumin, Serum 3.7 g/dL (3.2-5.0); Alkaline Phosphatase 63 U/L (45-117); Anion Gap 4 (5-15); BUN 25 mg/dL (7-18); BUN/Creat Ratio 29.6 RATIO (10-20); Calcium,Total 9.3 mg/dL (8.5-10.1); Chloride 106 mmol/L (98-107); Creatinine, Serum 0.85 mg/dL (0.55-1.02); EST Glomerular Filtration Rate 68 mL/min (>60); Est Glom Filt Rate - Afr Amer 83 mL/min (>60); Globulin 3.5 g/dL (2.2-4.2); Glucose 96 mg/dL (74-106); Potassium 4.2 mmol/L (3.5-5.1); Protein, Total 7.2 g/dL (6.4-8.2); Sodium Level 142 mmol/L (136-145); Vitamin D,25 Hydroxy 63.8 ng/mL
[2024-03-19 10:51] LABS: Hemoglobin A1c 5.6 % (3.8-5.6)
== END | disposition home or self-care (01) ==
PROVIDERS: PCP Internal Medicine; Referring Provider Internal Medicine; Visit Provider Internal Medicine
DX: D72.820 Lymphocytosis (symptomatic) (principal); R73.09 Other abnormal glucose; M81.0 Age-related osteoporosis without current pathological fracture
CPT/HCPCS: 36415; 80053; 82306; 83036; 85025

== ENCOUNTER → 2024-03-27 | Outpatient (CLI) | payer MEDICARE, SELFPAY ==
--- NOTE | 2024-03-27 15:45 | RAD_ITS ---
HISTORY: lumbar spine xray, 4 views - lumbar radiculopathy -- lumbar spine xray, 4 views - lumbar radiculopathy. TECHNIQUE: XR Spine Lumbar Min 4 Views. COMPARISON: 01/13/2022. FINDINGS: VERTEBRAE: Vertebral body heights preserved. Degenerative changes of the posterior elements. ALIGNMENT: No significant anterior or posterior subluxation. Mild levoscoliosis. INTERVERTEBRAL DISCS: Degenerative osteophytes of L2-3 and L3-4. Degenerative endplate changes with intervertebral disc space narrowing at L4-5 and L5-S1. RAD/L/S Spine Min 4 Views IMPRESSION: No acute fracture or dislocation identified in the lumbar spine. Mild degenerative change. Electronically Signed: Krysten Garza MD at 14:33 EST ,
== END | disposition home or self-care (01) ==
LOC: MTRAD 15:45
PROVIDERS: PCP Internal Medicine; Referring Provider Internal Medicine; Visit Provider Internal Medicine
DX: M54.16 Radiculopathy, lumbar region (principal)
CPT/HCPCS: 72110

== ENCOUNTER → 2024-06-19 | Outpatient (CLI) | payer MEDICARE, SELFPAY ==
[2024-06-19 09:59] LABS: Absolute Neutrophil Count 2.2 X10^3/uL (2.0-7.7); Basophil# 0.05 X10^3/uL; Basophil% 1.1 % (0-1); Eosinophil# 0.22 X10^3/uL; Eosinophils% 4.7 % (0-5); Hematocrit 38.5 % (37-47); Hemoglobin 12.7 g/dL (12.0-15.0); Lymphocyte % 34.5 % (19-41); Mean Corpuscular Hgb 30.3 pg (27.0-32.0); Mean Corpuscular Volume 91.9 fL (81-99); Mean Platelet Vol. 10.4 fl (6.2-12.0); Monocyte# 0.54 X10^3/uL; Monocyte% 11.6 % (0-10); NRBC Flagged by Analyzer 0 % (0-5); Neutrophil # 2.22 X10^3/uL (2.7-7.7); Neutrophil % 47.9 % (47-70); Platelet Count 180 K/mm3 (150-450); RBC Distribution Width CV 13.6 % (11.6-14.6); RBC Distribution Width SD 46.3 fl (35.1-43.9); Red Blood Count 4.19 M/mm3 (4.2-5.4); White Blood Count 4.6 K/mm3 (4.4-11.0)
[2024-06-19 10:12] LABS: Hemoglobin A1c 5.7 % (<=5.6)
[2024-06-19 10:19] LABS: Microalbumin,Random Urine 13.5 mg/L (NO RANGE EST.); Microalbumin:Creatinine Ratio 102.3 mg/g CRE
[2024-06-19 10:42] LABS: ALB/GLOB Ratio 1.5 RATIO (0.9-2.4); AST(SGOT) 31 U/L (<=31); Alanine Aminotransfer ALT/SGPT 14 U/L (<=34); Alkaline Phosphatase 63 U/L (35-104); Anion Gap 9 (5-15); BUN 26 mg/dL (4-19); Calcium,Total 9.2 mg/dL (7.6-11.0); Carbon Dioxide 25.4 mmol/L (21.0-32.0); Chloride 106 mmol/L (98-108); Cholesterol 186 mg/dL (<=200); Creatinine, Serum 0.84 mg/dL (0.70-1.20); EST Glomerular Filtration Rate 70 (>60); Globulin 2.6 g/dL (2.2-4.2); Glucose 85 mg/dL (70-99); High Density Lipoprotein 115 mg/dL; Low Density Lipoprotein Calc. 64 mg/dL; Potassium 4.7 mmol/L (3.3-5.1); Protein, Total 6.6 g/dL (5.9-8.4); Sodium Level 141 mmol/L (133-145); Triglycerides 35 mg/dL; Very Low Density Lipoprotein 7 mg/dL (5-40); cholesterol:hdl ratio screen 1.62
== END | disposition home or self-care (01) ==
LOC: LAB 08:28
PROVIDERS: PCP Internal Medicine; Referring Provider Internal Medicine; Visit Provider Internal Medicine
DX: R73.09 Other abnormal glucose (principal); M81.0 Age-related osteoporosis without current pathological fracture
CPT/HCPCS: 36415; 80053; 80061; 82043; 82570; 83036; 84443; 85025

== ENCOUNTER → 2024-08-16 | Outpatient (CLI) | payer MEDICARE, SELFPAY ==
[2024-08-16 13:50] LABS: Free T3 2.6 pg/mL (2.18-3.98)
== END | disposition home or self-care (01) ==
LOC: LAB 11:28
PROVIDERS: PCP Internal Medicine; Referring Provider Internal Medicine; Visit Provider Internal Medicine
DX: R79.89 Other specified abnormal findings of blood chemistry (principal)
CPT/HCPCS: 36415; 84439; 84443; 84481

== ENCOUNTER → 2024-10-05 | Outpatient (CLI) | payer MEDICARE, SELFPAY ==
--- OUTSIDE RECORDS SUMMARY | 2024-10-05 08:53 | XMS RPT_ITS | CCD ---
Author Organization [facility] Care Team Providers Care Disability Aide Name Role Phone Fast, Cole A Unavailable Jeancarlos Felix Unavailable Hussain Farrar Unavailable Sami Tejeda Unavailable Manchak, Reina Unavailable Unavailable Lora Mazariegos Unavailable Unavailable Unavailable Unavailable Fast, Cole A Unavailable Jeancarlos Felix Unavailable Hussain Farrar Unavailable Sami Tejeda Unavailable Manchak, Reina Unavailable Unavailable Unavailable Unavailable Raul Avalos Unavailable Sami Tejeda Unavailable Slarb, Teresita Unavailable Unavailable Manchak, Reina Unavailable Unavailable Katarina Easley Unavailable Unavailable Jason Madrigal Unavailable Fast DO, Cole A Unavailable Dr. Raul Avalos Unavailable Dr. Jeancarlos Felix Unavailable Jason Madrigal MD Unavailable Hussain Farrar MD Unavailable Sami Tejeda MD Unavailable Manchak JADIEL, Reina Unavailable Unavailable Unavailable Unavailable Fast DO, Cole A Unavailable Dr. Raul Avalos Unavailable Dr. Jeancarlos Felix Unavailable Jason Madrigal MD Unavailable Charan BABCOCK, Hussain Degroot Unavailable Ileana BABCOCK, Sami Baer Unavailable Manchak MODEL MAKER SCALE, Reina Unavailable Unavailable Unavailable Unavailable Fast DO, Cole A Unavailable Slarb BUSINESS SYSTEMS CONSULTANT, Teresita Unavailable Unavailable [place] MODEL MAKER SCALE, Kayela Unavailable Unavailable Fast DO, Cole A Primary Care Provider [phone] NESS TORIBIO Referring Unavailable KALKAKINZANESS Attending Unavailable FAST, COLE A Primary Care Unavailable NESS TORIBIO Attending Unavailable FAST, COLE A Primary Care Unavailable Fast, Dr. Nielsen Primary Care Provider [phone] [place], Dr. Brown Attending Provider Fast, Dr. Nielsen Other Provider SibJason mckeon Unavailable Dr. Raul Acuna Attending Provider [phone] Fast, Dr. Nielsen Primary Care Provider [phone] Fast, Dr. Nielsen Other Provider [place], Dr. Brown Attending Provider [phone] Raul Acuna Attending Provider Fast DO, Cole Hernandez Attending Unavailable Fast DO, Cole Hernandez Referring Unavailable Fast DO, Cole Hernandez Consulting Unavailable Fast, Dr. Nielsen Primary Care Provider [phone] Denise Perez Attending Provider Unavailable Fast, Dr. Nielsen Referring Provider [phone] [place], Dr. Brown Attending Provider Unavailable Unavailable Reilly, Lv Unavailable Unavailable Fast, Dr. Nielsen Primary Care Provider [phone] Fast, Dr. Nielsen Referring Provider [phone] Roof PHARMACOVIGILANCE SAFETY EXPERT, PHARMACOVIGILANCE SAFETY EXPERT-Karo Recio Attending Provider Fast DO, Dr. Nielsen Primary Care Provider Fast DO, Dr. Nielsen Attending Provider [phone] Fast DO, Dr. Nielsen Referring Provider Roof PHARMACOVIGILANCE SAFETY EXPERT-C, Myles Recio Attending Provider Fast DO, Dr. Nielsen Primary Care Provider [phone] Fast DO, Dr. Nielsen Referring Provider [phone] Fast DO, Dr. Nielsen Attending Provider [phone] Fast, Cole Referring Unavailable Fast, Cole Primary Care Unavailable Fast, Cole Attending Unavailable Fast, Cole Attending Unavailable Fast, Cole Referring Unavailable Fast, Cole Primary Care Unavailable Fast, Cole Attending Unavailable Fast, Cole Referring Unavailable Fast, Cole Primary Care Unavailable Fast, Cole Referring Unavailable Fast, Cole Primary Care Unavailable Fast, Cole Attending Unavailable Roof PHARMACOVIGILANCE SAFETY EXPERT, Myles Recio Attending Unavailable Fast, Cole Referring Unavailable Fast, Cole Primary Care Unavailable Fast, Cole Attending Unavailable Fast, Cole Referring Unavailable Fast, Cole Primary Care Unavailable Fast, Cole Attending Unavailable Fast, Cole Referring Unavailable Fast, Cole Primary Care Unavailable Fast, Cole Referring Unavailable Fast, Cole Primary Care Unavailable Fast, Cole Attending Unavailable Allergies Allergy Classification Reported Allergen(s) Allergy Type Date of Onset Reaction(s) Facility NEGATED: Highlighted row has been ruled out! (1 source) allergy to substance 4 [facility] Work Phone: NEGATED: Highlighted row has been ruled out! (1 source) drug allergy [facility] Work Phone: NEGATED: Highlighted row has been ruled out! (1 source) Allergy to substance (finding) 4 [facility]; [facility] Work Phone: NEGATED: Highlighted row has been ruled out! (1 source) Allergy to drug (finding) [facility]; [facility] Work Phone: NEGATED: Highlighted row has been ruled out! (1 source) Allergy to substance (finding) 4 [facility]; [facility] Work Phone: NEGATED: Highlighted row has been ruled out! (1 source) Allergy to drug (finding) [facility]; [facility] Work Phone: NEGATED: Highlighted row has been ruled out! (1 source) Allergy to substance (finding) 4 [facility]; [facility] Work Phone: NEGATED: Highlighted row has been ruled out! (1 source) Allergy to drug (finding) [facility]; [facility] Work Phone: NEGATED: Highlighted row has been ruled out! (1 source) Allergy to substance (finding) 4 [facility]; [facility] Work Phone: NEGATED: Highlighted row has been ruled out! (1 source) Allergy to drug (finding) [facility]; [facility] Work Phone: NEGATED: Highlighted row has been ruled out! (1 source) Allergy to substance (finding) 4 [facility]; [facility] Work Phone: NEGATED: Highlighted row has been ruled out! (1 source) Allergy to drug (finding) [facility]; [facility] Work Phone: NEGATED: Highlighted row has been ruled out! (1 source) Allergy to substance (finding) 4 [facility]; [facility] Work Phone: NEGATED: Highlighted row has been ruled out! (1 source) Allergy to drug (finding) [facility]; [facility] Work Phone: NEGATED: Highlighted row has been ruled out! (1 source) Allergy to substance (finding) 4 [facility]; [facility] Work Phone: NEGATED: Highlighted row has been ruled out! (1 source) Allergy to drug (finding) [facility]; [facility] Work Phone: NEGATED: Highlighted row has been ruled out! (1 source) Allergy to substance (finding) 4 [facility]; [facility] Work Phone: NEGATED: Highlighted row has been ruled out! (1 source) Allergy to drug (finding) [facility]; [facility] Work Phone: NEGATED: Highlighted row has been ruled out! (1 source) Allergy to substance (finding) 4 [facility]; [facility] Work Phone: NEGATED: Highlighted row has been ruled out! (1 source) Allergy to drug (finding) [facility]; [facility] Work Phone: NEGATED: Highlighted row has been ruled out! (1 source) Allergy to substance (finding) 4 [facility]; [facility] Work Phone: NEGATED: Highlighted row has been ruled out! (1 source) Allergy to drug (finding) [facility]; [facility] Work Phone: NEGATED: Highlighted row has been ruled out! (1 source) Allergy to substance (finding) 4 [facility]; [facility] Work Phone: NEGATED: Highlighted row has been ruled out! (1 source) Allergy to drug (finding) [facility]; [facility] Work Phone: NEGATED: Highlighted row has been ruled out! (1 source) Allergy to substance (finding) 4 [facility]; [facility] Work Phone: NEGATED: Highlighted row has been ruled out! (1 source) Allergy to drug (finding) [facility]; [facility] Work Phone: NEGATED: Highlighted row has been ruled out! (1 source) Allergy to substance (finding) 4 [facility]; [facility] Work Phone: NEGATED: Highlighted row has been ruled out! (1 source) Allergy to drug (finding) [facility]; [facility] Work Phone: NEGATED: Highlighted row has been ruled out! (1 source) Allergy to substance (finding) 4 [facility]; [facility] Work Phone: NEGATED: Highlighted row has been ruled out! (1 source) Allergy to drug (finding) [facility]; [facility] Work Phone: NEGATED: Highlighted row has been ruled out! (1 source) Allergy to substance (finding) 4 [facility]; [facility] Work Phone: NEGATED: Highlighted row has been ruled out! (1 source) Allergy to drug (finding) [facility]; [facility] Work Phone: NEGATED: Highlighted row has been ruled out! (1 source) Allergy to substance (finding) 4 [facility]; [facility] Work Phone: NEGATED: Highlighted row has been ruled out! (1 source) Allergy to drug (finding) [facility]; [facility] Work Phone: NEGATED: Highlighted row has been ruled out! (1 source) Allergy to substance (finding) 4 [facility]; [facility] Work Phone: NEGATED: Highlighted row has been ruled out! (1 source) Allergy to drug (finding) [facility]; [facility] Work Phone: NEGATED: Highlighted row has been ruled out! (1 source) Allergy to substance (finding) 4 [facility]; [facility] Work Phone: NEGATED: Highlighted row has been ruled out! (1 source) Allergy to drug (finding) [facility]; [facility] Work Phone: NEGATED: Highlighted row has been ruled out! (1 source) Allergy to substance (finding) 4 [facility]; [facility] Work Phone: NEGATED: Highlighted row has been ruled out! (1 source) Allergy to drug (finding) [facility]; [facility] Work Phone: NEGATED: Highlighted row has been ruled out! (1 source) Allergy to substance (finding) 4 [facility]; [facility] Work Phone: NEGATED: Highlighted row has been ruled out! (1 source) Allergy to drug (finding) [facility]; [facility] Work Phone: NEGATED: Highlighted row has been ruled out! (1 source) Allergy to substance (finding) 4 [facility]; [facility] Work Phone: NEGATED: Highlighted row has been ruled out! (1 source) Allergy to drug (finding) [facility]; [facility] Work Phone: NEGATED: Highlighted row has been ruled out! (1 source) Allergy to substance (finding) 4 [facility]; [facility] Work Phone: NEGATED: Highlighted row has been ruled out! (1 source) Allergy to drug (finding) [facility]; [facility] Work Phone: NEGATED: Highlighted row has been ruled out! (1 source) Allergy to substance (finding) 4 [facility]; [facility] Work Phone: NEGATED: Highlighted row has been ruled out! (1 source) Allergy to drug (finding) [facility]; [facility] Work Phone: NEGATED: Highlighted row has been ruled out! (1 source) Allergy to substance (finding) 4 [facility]; [facility] Work Phone: NEGATED: Highlighted row has been ruled out! (1 source) Allergy to drug (finding) [facility]; [facility] Work Phone: NEGATED: Highlighted row has been ruled out! (1 source) Allergy to substance (finding) 4 [facility]; [facility] Work Phone: NEGATED: Highlighted row has been ruled out! (1 source) Allergy to drug (finding) [facility]; [facility] Work Phone: NEGATED: Highlighted row has been ruled out! (1 source) Allergy to substance (finding) 4 [facility]; [facility] Work Phone: NEGATED: Highlighted row has been ruled out! (1 source) Allergy to drug (finding) [facility]; [facility] Work Phone: NEGATED: Highlighted row has been ruled out! (1 source) Allergy to substance (finding) 4 [facility]; [facility] Work Phone: NEGATED: Highlighted row has been ruled out! (1 source) Allergy to drug (finding) [facility]; [facility] Work Phone: NEGATED: Highlighted row has been ruled out! (1 source) Allergy to substance (finding) 4 [facility]; [facility] Work Phone: NEGATED: Highlighted row has been ruled out! (1 source) Allergy to drug (finding) [facility]; [facility] Work Phone: NEGATED: Highlighted row has been ruled out! (1 source) Allergy to substance (finding) 4 [facility]; [facility] Work Phone: NEGATED: Highlighted row has been ruled out! (1 source) Allergy to drug (finding) [facility]; [facility] Work Phone: NEGATED: Highlighted row has been ruled out! (1 source) Allergy to substance (finding) 4 [facility]; [facility] Work Phone: NEGATED: Highlighted row has been ruled out! (1 source) Allergy to drug (finding) [facility]; [facility] Work Phone: NEGATED: Highlighted row has been ruled out! (1 source) Allergy to substance (finding) 4 [facility]; [facility] Work Phone: NEGATED: Highlighted row has been ruled out! (1 source) Allergy to drug (finding) [facility]; [facility] Work Phone: NEGATED: Highlighted row has been ruled out! (1 source) Allergy to substance (finding) 4 [facility]; [facility] Work Phone: NEGATED: Highlighted row has been ruled out! (1 source) Allergy to drug (finding) [facility]; [facility] Work Phone: NEGATED: Highlighted row has been ruled out! (1 source) Allergy to substance (finding) 4 [facility]; [facility] Work Phone: NEGATED: Highlighted row has been ruled out! (1 source) Allergy to drug (finding) [facility]; [facility] Work Phone: Medications Current Medications Medication Drug Class(es) Dates Sig (Normalized) Sig (Original) calcium carbonate 1250 mg oral tablet (10 sources) Start: 03-12-2020 Calcium Carbonate 500 MG tablet Active March 12, 2020 1:00am Start: 03-12-2020 Calcium Carbon ate Active March 12, 2020 1:00am ibandronic acid 150 mg oral tablet (2 sources) Bisphosphonate Start: 06-04-2024 take 1 tablet by mouth every month Ibandronate 150 mg tablet Active 150 mg PO EVERY MONTH June 04, 2024 12:00am Completed/Discontinued Medications Medication Drug Class(es) Dates Sig (Normalized) Sig (Original) alendronic acid 70 mg oral tablet (20 sources) Bisphosphonate Start: 04-30-2008 End: 04-30-2008 aspirin 81 mg chewable tablet (20 sources) Platelet Aggregation Inhibitor, Nonsteroidal Anti-inflammatory Drug Start: 03-09-2020 End: 09-05-2022 Aspirin 81 MG tablet,chewable Discontinued 1 {tbl} PO DAILY March 09, 2020 1:00am September 05, 2022 2:15pm Start: 07-20-2018 End: 09-05-2022 take 1 tablet by mouth once daily Aspirin Discontinued 1 TABLET PO DAILY March 09, 2020 1:00am September 05, 2022 2:15pm aspirin 325 mg / butalbital 50 mg / caffeine 40 mg oral capsule (20 sources) Platelet Aggregation Inhibitor, Barbiturate, Nonsteroidal Anti-inflammatory Drug, Central Nervous System Stimulant, Methylxanthine Start: 04-15-2016 End: 03-23-2020 take 1 capsule by mouth once daily as needed Hqwjvsygvx-SYT-Pbssyhhv 50-325-40 MG Oral Capsule 1 (one) Capsule qd prn for 0 days Quantity: 60 {Capsule} Refills: 1 Ordered: 23-Mar-2020 Teresita Garza LPN Start : 15-Apr-2016 End : 23-Mar-2020 Inactive Comments: oars report#[id number]- End: 05-04-2007 BUTALBITAL COMPOUND, 325-50- 40MG (PO Tab) 1-2 tabs prn for headaches for 0 days Refills: 0 Ordered: 04-May-2007 Emely Rudd End : 04-May-2007 Discontinued Comment on above: oars report#[id number] - aspirin 325 mg / butalbital 50 mg / caffeine 40 mg oral capsule (20 sources) Platelet Aggregation Inhibitor, Barbiturate, Nonsteroidal Anti-inflammatory Drug, Central Nervous System Stimulant, Methylxanthine Start: 04-15-2016 End: 03-23-2020 Start: 04-15-2016 End: 03-23-2020 take 1 capsule by mouth once daily as needed Jyrupozhtf-ABQ-Bonnqhqg 50-325-40 MG Ora l Capsule 1 (one) Capsule qd prn for 0 days Quantity: 60 {Capsule} Refills: 1 Ordered: 23-Mar-2020 Teresita Garza LPN Start : 15-Apr-2016 End : 23-Mar-2020 Inactive Comments: oars report#[id number]- End: 05-04-2007 Comment on above: oars report#[id number] - bifidobacterium animalis 160 [id number] unt / lactobacillus acidophilus [id number] unt oral capsule (20 sources) take 1 capsule by mouth once katherin ly Probiotic Oral Capsule 1 cap daily Inactive take 1 capsule by mouth once katherin ly Probiotic Oral Capsule 1 cap daily Inactive butalbital (20 sources) Barbiturate End: 06-13-2007 End: 06-13-2007 BUTALBITAL (Powder) 1 Q4-6H for 0 days Refills: 0 Ordered: 24-Jul-2008 Emely Rudd End : 13-Jun-2007 Discontinued calcium (20 sources) Phosphate Binder, Calcium End: 03-23-2020 End: 03-23-2020 take 1 capsule by mouth once daily CALCIUM 900 W/D (PO Cap) 1 Daily for 0 days Refills: 0 Ordered: 23-Mar-2020 Teresita Garza LPN End : 23-Mar-2020 Discontinued Comments: This order discontinued per [facility]. take 1 capsule by mo [facility] once daily CALCIUM 900 W/D (PO Cap) 1 Daily for 0 days Refills: 0 Ordered: 15-Apr-2009 Mast Conchita DAVENPORT Active Comment on above: This order discontin ued per [facility]. cholecalciferol 0.05 mg oral capsule (20 sources) Vitamin D Start: 09-10-2021 Start: 01-18-2017 End: 03-23-2020 take 1 capsule by mouth once daily Cholecalciferol (Vitamin D3) 25 mcg (1,000 unit) capsule Active 50 ug PO DAILY March 12, 2020 1:00am Start: 01-18-2017 End: 03-23-2020 take 1 capsule by [facility] once daily Cholecalciferol, Vitamin D3, 25 mcg (1,000 unit) cap Take 1,000 Units by mouth once daily. 0 Active Comment on above: Take 1,000 Units by mouth once daily. ciprofloxacin 500 mg oral tablet (20 sources) Quinolone Antimicrobial Start: 04-15-2016 End: 08-22-2016 1 ml denosumab 60 mg/ml prefilled syringe (20 sources) RANK Ligand Inhibitor Start: 07-10-2022 End: 06-04-2024 Denosumab (Prolia) 60 mg/mL syringe Discontinued 60 mg SC every 6 months September 05, 2022 12:00am June 04, 2024 1:35pm Start: 05-30-2022 Start: 09-10-2021 Start: 01-14-2020 End: 01-14-2020 Start: 01-03-2020 Prolia 60 MG/M L Subcutaneous Solution Prefilled Syringe 1 inj Solution q 6months for 0 days Quantity: 1 {Pre-filled_Pen_Syringe} Refills: 1 Ordered: 03-Jan-2020 Fast DO, Cole A Fast DO, Cole A Start : 03-Jan-2020 Active Start: 10-29-2018 Prolia 60 MG/M L Subcutaneous Solution Prefilled Syringe 1 inj Solution q 6months for 0 days Quantity: 1 {Pre-filled_Pen_Syringe} Refills: 1 Ordered: 29-Oct-2018 Fast DO, Cole A Fast DO, Cole A Start : 29-Oct-2018 Active Start: 12-22-2017 Prolia 60 MG/M L Subcutaneous Solution 1 inj Solution q 6months for 0 days Quantity: 1 {Pre-filled_Pen_Syringe} Refills: 1 Ordered: 22-Dec-2017 Fast DO, Cole A Fast DO, Cole A Start : 22-Dec-2017 Active Start: 12-22-2017 Prolia 60 MG/M L Subcutaneous Solution 1 inj Solution q 6months for 0 days Quantity: 1 {Pre-filled_Pen_Syringe} Refills: 1 Ordered: 22-Dec-2017 Fast DO, Cole A Fast DO, Cole A Start : 22-Dec-2017 Active dicyclomine hydrochloride 10 mg oral capsule (20 sources) Anticholinergic Start: 03-09-2020 End: 09-05-2022 take 2 capsules by mouth three times daily before mealtime as needed for pain Dicyclomine 10 MG capsule Discontinued 20 mg PO THREE TIMES DAILY BEFORE MEALS as needed for Pain Score 1-10 March 12, 2020 4:23pm September 05, 2022 2:15pm Start: 03-09-2020 End: 09-05-2022 take 20 mg by mouth three times daily before mealtime Dicyclomine Discontinued 20 MG PO THREE TIMES DAILY BEFORE MEALS March 12, 2020 4:23pm September 05, 2022 2:15pm famotidine 20 mg oral tablet (20 sources) Histamine-2 Receptor Antagonist Start: 07-06-2020 take 1 tablet by mouth once daily as needed famotidine (PEPCID) 20 mg tablet Indications: Heartburn Take 1 tablet by mouth once daily as needed. 30 tablet 2 07/06/2020 Active Comment on above: Take 1 tablet by jayla once daily as needed. fish oil (20 sources) take 1 capsule by mouth once katherin ly Fish Oil 1200 MG Oral Capsule Delayed Release 1 cap daily (1200 MG) Active Fish Oil 1200 MG Oral Capsule Delayed Release (20 sources) take 1 capsule by mo [facility] once daily Fish Oil 1200 MG Oral Capsule Delayed Release 1 cap daily (1200 MG) Inactive take 1 capsule by mouth once katherin ly Fish Oil 1200 MG Oral Capsule Delayed Release 1 cap daily (1200 MG) Active furosemide 20 mg oral tablet (20 sources) Loop Diuretic Start: 09-05-2022 End: 01-10-2024 take 1 tablet by mouth once daily Furosemide 20 mg tablet Discontinued 0 .ROUTE .COMPLEX 90 January 05, 2023 10:11am March 17, 2023 11:35am take 1 tablet by mouth daily glucosamine 500 mg oral tablet (20 sources) End: 05-04-2011 hyoscyamine sulfate 0.125 mg disintegrating oral tablet (20 sources) levoFLOXacin 500 mg oral tablet (20 sources) Quinolone Antimicrobial Start: 06-13-2007 End: 07-17-2007 MEDICATION, NON-DATABASE (1 source) Start: 02-09-2006 MEDICATION, NON-DATABASE med for headach as needed 0 02/09/2006 Active Comment on above: med for headach as n eeded multivitamin (20 sources) MULTIVITAMIN (Or al Liquid) 1 (one) qd Inactive MULTIVITAMIN (Or al Liquid) 1 (one) qd Active Holton-3 Fatty Acids (Fish Oil Concentrate) 1,000 mg capsule (10 sources) Start: 03-12-2020 End: 09-05-2022 take 1 capsule by mouth once daily Holton-3 Fatty Acids (Fish Oil Concentrate) 1,000 mg capsule Discontinued 1000 mg PO DAILY March 12, 2020 1:00am September 05, 2022 2:15pm Start: 03-12-2020 End: 09-05-2022 take 1 capsule by mouth once daily Holton-3 Fatty Acids (Fish Oil Concentrate) 1,000 mg capsule Discontinued 1000 MG PO DAILY March 12, 2020 1:00am September 05, 2022 2:15pm Start: 03-12-2020 take 1 capsule by mo ut once daily Holton-3 Fatty Acids (Fish Oil Concentrate) 1,000 mg capsule Active 1000 MG PO DAILY March 12, 2020 12:00am Start: 03-12-2020 take 1 capsule by mo uth once daily Holton-3 Fatty Acids (Fish Oil Concentrate) 1,000 mg capsule Active 1000 MG PO DAILY March 12, 2020 1:00am Rpzfr-0y-Hfx-Epa-Fish Oil (8 sources) Start: 03-12-2020 End: 03-19-2020 Jyjyu-7a-Hll-Epa-Fish Oil Discontinued 1 EACH PO DAILY March 12, 2020 12:00am March 19, 2020 3:05pm Start: 03-12-2020 End: 03-19-2020 Jvjsu-8n-Gwm-Epa-Fish Oil Di scontinued 1 EACH PO DAILY March 12, 2020 1:00am March 19, 2020 4:05pm Pfiyw-2p-Xlz-Epa-Fish Oil 1 EACH capsule (2 sources) Start: 03-12-2020 End: 03-19-2020 take 1 capsule by mouth once daily Ovwju-2k-Hys-Epa-Fish Oil 1 EACH capsule Discontinued 1 NMA PO DAILY March 12, 2020 1:00am March 19, 2020 4:05pm omeprazole 20 mg delayed release oral capsule (20 sources) Proton Pump Inhibitor Start: 04-11-2012 End: 04-11-2012 Start: 04-11-2012 End: 04-11-2012 PRILOSEC, 20MG (Oral Capsule Delayed Release) [address] daily for 0 days Quantity: 30 {Capsule_DR} Refills: 0 Ordered: 11-Apr-2012 Fast DO, Cole A Fast DO, Cole A Start : 11-Apr-2012 End : 11-Apr-2012 Discontinued ondansetron 4 mg disintegrating oral tablet (11 sources) Serotonin-3 Receptor Antagonist Start: 03-09-2020 End: 06-04-2024 take 1 tablet by mouth every eight hours as needed for nausea Ondansetron 4 MG tablet Discontinued 4 mg PO EVERY 8 HOURS NEEDED as needed for Nausea March 09, 2020 1:00am June 04, 2024 1:36pm Comment on above: Take 1 tablet by jayla th every 8 hours as needed. Use for nausea. pantoprazole 40 mg delayed release oral tablet (20 sources) Proton Pump Inhibitor Start: 03-19-2020 End: 09-05-2022 take 1 tablet by mouth once daily Pantoprazole 40 MG tablet Discontinued 40 mg PO DAILY March 19, 2020 1:00am September 05, 2022 2:15pm Comment on above: Take 1 tablet by jayla th once daily. 30 minutes before breakfast. potassium chloride 20 meq extended release oral tablet (20 sources) Start: 03-23-2020 End: 04-29-2020 Start: 03-19-2020 End: 09-05-2022 take 1 tablet by mouth once daily at mealtime Potassium Chloride 20 MEQ tablet Discontinued 20 meq PO DAILY WITH MEALS March 19, 2020 1:00am September 05, 2022 2:16pm bifidobacterium animalis [id number] unt / lactobacillus acidophilus [id number] unt oral capsule (1 source) take 1 capsule by mouth once daily Probiotic Oral Capsule 1 cap daily Active Probiotic Oral Capsule (19 sources) take 1 capsule by mouth once daily Probiotic Oral Capsule 1 cap daily Inactive raloxifene hydrochloride 60 mg oral tablet (20 sources) Estrogen Agonist/Antagonis t Start: 4 End: 6 Comment on above: Mail order. sucralfate 1000 mg oral tablet (20 sources) Aluminum Complex Start: 1 End: 3 Sucralfate 1 GM tablet Discontinued 1 g PO ONE HOURS BEFORE MEALS & BED 120 March 19, 2020 1:00am September 05, 2022 2:16pm Take 1 hour before the meal or other medications especially calcium tablet and Bentyl Problems Active Problems Problem Classification Problem Date Documented Da te Episodic/Chronic Abdominal hernia (2 sources) Hiatal hernia; Translations: [Diaphragmatic hernia without obstruction or gangrene] Onset: 1 Episodic Abdominal pain (20 sources) Generalized abdominal pain; Translations: [Pain in pelvis] Resolved: 1 05-26-2017 Episodic Comment on above: improving Allergic reactions (20 sources) Eczema; Translations: [Eczema (Renamed from Dermatitis, eczematoid)] Resolved: 9 07-24-2008 Episodic Comment on above: use otc cortaid 10 c all no resolve Cardiac dysrhythmias (20 sources) Cardiac arrhythmia, unspecified; Translations: [Other premature beats] 09-27-2017 Chronic Comment on above: chronic stable-jah nue present regimen no symptoms- monitor no symptoms will mon itor monitor no symptoms no symtoms will isa tor no symptoms doing we ll no sx Cardiac dysrhythmias (10 sources) Tachycardia; Translations: [Tachycardia, unspecified] 03-12-2020 Episodic Cardiac dysrhythmias (20 sources) Cardiac dysrhythmias Conditions associated with dizziness or vertigo (20 sources) Dizziness; Translations: [Dizziness] 09-27-2017 Episodic Comment on above: check heart monitor and blood flow screen Deficiency and other anemia (20 sources) Anemia; Translations: [Anemia] Resolved: 1 01-20-2021 Episodic Diabetes mellitus without complication (20 sources) High hemoglobin A1c level; Translations: [Elevated hemoglobin A1c] 09-27-2017 Chronic Comment on above: chronic stable-jah nue present regimenkeep working on diet and ex needs to work harder on diet and ex we discussed chronic stable-jah nue present regimen discussed diet and e x in detail Diabetes mellitus without complication (20 sources) High hemoglobin A1c level; Translations: [Elevated hemoglobin A1c] Onset: 5 07-28-2020 Episodic Comment on above: continue working on diet and ex and we discussed Diseases of white blood cells (20 sources) Lymphocytosis; Translations: [Lymphocytosis] Onset: 5 06-01-2018 Chronic Comment on above: follwoing with Masci stable willmonitor cbc normal lymphocytes actually normal,.- eosinohils and basophils up - she just had covid vaccine - no allergy sx will do close followup stable Fluid and electrolyte disorders (10 sources) Dehydration; Translations: [Dehydration] 03-12-2020 Episodic Gastritis and duodenitis (2 sources) Chronic superficial gastritis; Translations: [Chronic superficial gastritis without bleeding] Onset: 1 Chronic Gastritis and duodenitis (20 sources) Gastritis; Translations: [Gastritis] Resolved: 1 04-01-2020 Episodic Comment on above: pathology only showe d gastritis she will stay on ppi for 6 weeks then can stop Gastrointestinal hemorrhage (1 source) Gastrointestinal hemorrhage; Translations: [Gastrointestinal hemorrhage, unspecified] 04-11-2006 Episodic Genitourinary symptoms and ill-defined conditions (20 sources) Urinary incontinence; Translations: [Frequent urinary incontinence] 01-15-2021 Chronic Genitourinary symptoms and ill-defined conditions (20 sources) Urinary frequency; Translations: [Increased frequency of urination] Resolved: 6 05-26-2017 Episodic Comment on above: worse lying down at hs Headache, including migraine (20 sources) Migraine; Translations: [Migraine without status migrainosus, not intractable, unspecified migraine type] 09-27-2017 Chronic Comment on above: doing well hasnt had any for lo ng while no issues at this po int Headache, including migraine (20 sources) Headache; Translations: [Headache] 09-27-2017 Episodic Hemorrhoids (1 source) Internal hemorrhoids; Translations: [Other hemorrhoids] 02-07-2006 Episodic Immunizations and screening for infectious disease (20 sources) Need for prophylactic vaccination and inoculation against influenza; Translations: [Need for prophylactic vaccination and inoculation against other specified disease] Resolved: 2 04-29-2020 Episodic Malaise and fatigue (20 sources) Malaise and fatigue; Translations: [Fatigue] Resolved: 9 05-26-2017 Episodic Noninfectious gastroenteritis (20 sources) Colitis; Translations: [Colitis] 04-29-2020 Episodic Comment on above: they felt had viral syndrome- she overall doing better slowly advancing diet Nonspecific chest pain (20 sources) Chest pain; Translations: [Other chest pain] Resolved: 9 05-26-2017 Episodic Osteoarthritis (20 sources) Primary osteoarthritis, right hand; Translations: [Primary osteoarthritis, left hand] 09-27-2017 Chronic Comment on above: slight trigger- but she not feel big enough issue at thsi point to see ortho not overtly botherso me- she uses prn tylenol ibuprfoen Osteoporosis (20 sources) Osteoporosis; Translations: [Osteoporosis] 01-04-2018 Chronic Comment on above: prolia due in dec tolerating prolia reviewed her bone de nsity she feels she is tolerating the prolia well enough to continue- due in next few months chelsae will order keep walking and sabrina erating meds gettingprolia q 6 mo nths keep walking -prolia - due for bone densiity next year keep walking -prolia - due for bone densiity 2020- THIS WILL BE LAST dose of prolia its been 5 years improving will do osvaldo dy break from prolia- for year she will make sure doing enough vitamin d and weight bearing esxercise weight bearing exerc ise Other and ill-defined cerebrovascular disease (20 sources) Small vessel cerebrovascular disease; 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, cerebrovascular] 07-20-2018 Chronic Other bone disease and musculoskeletal deformities (20 sources) Osteopenia; Translations: [Osteopenia] Resolved: 7 05-26-2017 Episodic Comment on above: due in mar chronic stable-jah nue present regimen Other bone disease and musculoskeletal deformities (1 source) Disorder of skeletal system; Translations: [Disorder of bone, unspecified] 02-16-2010 Episodic Other circulatory disease (20 sources) Elevated blood-pressure reading without diagnosis of hypertension; Translations: [Elevated blood-pressure reading without diagnosis of hypertension] 09-27-2017 Episodic Comment on above: better Other diseases of veins and lymphatics (1 source) Peripheral venous insufficiency; Translations: [Venous insufficiency (chronic) (peripheral)] 02-07-2006 Episodic Other female genital disorders (20 sources) Disorder of female genital organs; Translations: [Other specified conditions associated with female genital organs and menstrual cycle] 09-27-2017 Episodic Comment on above: none presently and h ad colonosocpy was ok Other gastrointestinal disorders (20 sources) Diarrhea; Translations: [Diarrhea] Resolved: 1 04-01-2020 Episodic Comment on above: improving- still wor phoebe on movign up gi referral but she overall better and no pathologic diagnosis on colon biopsy Other lower respiratory disease (20 sources) Dyspnea on exertion; Translations: [TURCIOS (dyspnea on exertion)] 03-24-2022 Episodic Other lower respiratory disease (3 sources) Other forms of dyspnea; Translations: [Other respiratory abnormalities] 09-05-2022 Episodic Other non-traumatic joint disorders (1 source) Arthropathy; Translations: [Arthropathy, unspecified] 02-07-2006 Chronic Other non-traumatic joint disorders (20 sources) Arthralgia of the pelvic region and thigh; Translations: [Pain in joint involving pelvic region and thigh (Renamed from Arthralgia of hip or thigh)] Resolved: 8 09-27-2017 Episodic Other non-traumatic joint disorders (20 sources) Knee pain; Translations: [Knee pain (Renamed from Arthralgia of knee)] Resolved: 0 05-26-2017 Episodic Other non-traumatic joint disorders (20 sources) Shoulder pain; Translations: [Left shoulder pain] Resolved: 1 04-29-2020 Episodic Comment on above: improving Other non-traumatic joint disorders (20 sources) Pain in unspecified knee; Translations: [Knee pain (Renamed from Arthralgia of knee)] Resolved: 0 05-26-2017 Episodic Other non-traumatic joint disorders (20 sources) Hip pain; Translations: [Bilateral hip pain] 01-11-2022 Episodic Other non-traumatic joint disorders (20 sources) Pain in left shoulder; Translations: [Left shoulder pain] Resolved: 1 01-21-2022 Episodic Peripheral and visceral atherosclerosis (20 sources) Arteriosclerotic vascular disease; Translations: [Atherosclerosis of other specified arteries] 09-27-2017 Chronic Pleurisy; pneumothorax; pulmonary collapse (20 sources) Bilateral pleural effusion; Translations: [Pleural effusion, bilateral] Resolved: 1 03-26-2020 Episodic Pneumonia (20 sources) Bacterial pneumonia; Translations: [Unspecified bacterial pneumonia] Resolved: 9 05-26-2017 Episodic Residual codes; unclassified (20 sources) Needs influenza immunization; Translations: [Need for prophylactic vaccination and inoculation against influenza (Renamed from Need for immunization against influenza)] 01-31-2018 Episodic Residual codes; unclassified (20 sources) Body mass index (BMI) 23.0-23.9, adult; Translations: [Body mass index (BMI) 22.0-22.9, adult] Resolved: 2 09-27-2017 Episodic Residual codes; unclassified (20 sources) Postmenopausal state; Translations: [Postmenopausal (Renamed from Postmenopausal status)] 01-31-2018 Episodic Residual codes; unclassified (20 sources) Current non-smoker ; Translations: [Current nonsmoker (Renamed from Current non-smoker)] 01-14-2020 Episodic Residual codes; unclassified (20 sources) Non-smoker; Translations: [Nonsmoker] 04-29-2020 Episodic Syncope (20 sources) Near syncope; Translations: [Syncope] Resolved: 1 06-01-2018 Episodic Comment on above: has had thorough wor k up think her symptoms have been lack of volume and vasodilation in heat and the other episode was bending over and up and down with books no further spells ke ep pushing fluids workup neg Thyroid disorders (1 source) Nontoxic single thyroid nodule; Translations: [Nontoxic single thyroid nodule] Onset: 4 Chronic Unclassified (20 sources) Breast neoplasm screening status; Translations: [Blood chemistry abnormal] Onset: 4 Resolved: 3 09-27-2017 Episodic Comment on above: no sx will monitor Unclassified (20 sources) Family history of malignant neoplasm of gastrointestinal tract; Translations: [Needs influenza immunization] Resolved: 8 12-22-2017 Episodic Unclassified (20 sources) Unclassified (20 sources) screening Resolved: 6 05-26-2017 Unclassified (20 sources) Encounter for screening mammogram for breast cancer (Renamed from Encounter for screening mammogram for malignant neoplasm of breast) Unclassified (20 sources) Current non-smoker ; Translations: [Current nonsmoker (Renamed from Current non-smoker)] 09-27-2017 Unclassified (20 sources) ABNORMAL PELIVC ULTRASOUND (793.5) Unclassified (20 sources) Body mass index (BMI) 23.0-23.9, adult Unclassified (20 sources) BMI 21.0-21.9, adult Unclassified (20 sources) Abdominal Pain,General (789.07) Unclassified (20 sources) Elevated hemoglobin A1c Unclassified (20 sources) Migraine without status migrainosus, not intractable, unspecified migraine type Unclassified (20 sources) Elevated Blood Pressure without diagnosis of Hypertension (796.2) Unclassified (20 sources) dilated biliary ducts Resolved: 6 09-11-2015 Unclassified (20 sources) Abnormal CT of Abdomen(794.9) Unclassified (20 sources) Abnormal blood chemistry (790.6) Unclassified (20 sources) Encounter for hepatitis C virus screening test for high risk patient Unclassified (20 sources) Osteoarthritis of finger of right hand Unclassified (20 sources) Pain in joint involving pelvic region and thigh (Renamed from Arthralgia of hip or thigh) Unclassified (20 sources) Abnormal mammogram (793.80) Unclassified (20 sources) Pain in joint involving pelvic region and thigh (719.45) Unclassified (20 sources) BMI 22.0-22.9, adult Unclassified (20 sources) Osteoarthritis of finger, left Unclassified (20 sources) Postmenopausal (Renamed from Postmenopausal status) Unclassified (20 sources) Encounter for screening mammogram for malignant neoplasm of breast Unclassified (20 sources) Abnormal lung function test Unclassified (20 sources) Non-smoker; Translations: [Nonsmoker] 01-14-2020 Unclassified (6 sources) Left shoulder pain Unclassified (3 sources) BMI 20.0-20.9, adult Unclassified (6 sources) Prophylactic vaccination against Streptococcus pneumoniae (V03.82) Varicose veins of lower extremity (2 sources) Venous varices; Translations: [Asymptomatic varicose veins of unspecified lower extremity] 02-07-2006 Episodic Viral infection (20 sources) Viral disease; Translations: [Viral infection, unspecified] Resolved: 0 01-19-2015 Episodic Past or Other Problems Problem Classification Problem Date Documented Date Episodic/Chronic Administrative/social admission (20 sources) Medical examinations/reports status; Translations: [Encounter for Medicare annual wellness exam] Resolved: 08-10-2015 08-10-2015 Episodic Conditions associated with dizziness or vertigo (3 sources) Conditions associated with dizziness or vertigo Headache; including migraine (20 sources) Headache; including migraine Osteoarthritis (20 sources) Osteoarthritis of finger joint of right hand; Translations: [Osteoarthritis of finger joint of left hand] 10-29-2018 Comment on above: slight trigger- but she not feel big enough issue at thsi point to see ortho not overtly botherso me- she uses prn tylenol ibuprfoen Pneumonia (20 sources) Pneumonia Residual codes; unclassified (20 sources) Vaccination required; Translations: [Need for prophylactic vaccination and inoculation against other specified disease] Resolved: 09-11-2015 09-14-2011 Episodic Residual codes; unclassified (20 sources) Ultrasound scan abnormal; Translations: [Ultrasound scan abnormal] Resolved: 09-27-2017 09-27-2017 Episodic Residual codes; unclassified (20 sources) Requires vaccination; Translations: [Prophylactic vaccination against Streptococcus pneumoniae] Resolved: 09-11-2015 09-11-2015 Spondylosis; intervertebral disc disorders; other back problems (20 sources) Low back pain; Translations: [Low Back Pain] Onset: 04-18-2024 Resolved: 09-11-2015 05-26-2017 Episodic Syncope (20 sources) Syncope Unclassified (20 sources) Patient encounter status; Translations: [Screening for HPV (human papillomavirus)] Resolved: 10-29-2018 05-26-2017 Unclassified (20 sources) Well Woman Exam , Medicare (V76.2) Unclassified (20 sources) SCREENING FOR HUMAN PAPILLOMAVIRUS (HPV) (V73.81) Unclassified (20 sources) Annual Medicare Physical (V70.0) Unclassified (20 sources) [facility] WELLNESS EXAM 09-27-2017 Unclassified (20 sources) abnormal ct chest - get ct in 2 mos Resolved: 07-16-2008 05-26-2017 Unclassified (20 sources) Abnormal mammogram (Renamed from Abnormal finding on mammography) Unclassified (20 sources) Pregnancies (); Translations: [Pregnancies ()] 09-27-2017 Comment on above: 2 Unclassified (20 sources) Screening for breast cancer (Renamed from Breast cancer screening) Unclassified (20 sources) Well Woman Exam (V72.31) (Pap,Mammo,Routine Female) (Renamed from Well Woman V72.31 (p,m)) Unclassified (20 sources) Deliveries (Parity); Translations: [Deliveries (Parity)] 09-27-2017 Comment on above: 2 Unclassified (20 sources) Small vessel disease, cerebrovascular Unclassified (20 sources) Immunity status testing Unclassified (20 sources) Body mass index 20-24 - normal; Translations: [BMI 22.0-22.9, adult] Resolved: 01-14-2020 09-27-2017 Unclassified (20 sources) Cancer cervix screening status; Translations: [Screening for malignant neoplasm of cervix] Resolved: 09-11-2015 05-26-2017 Unclassified (10 sources) Pleural effusion, bilateral Unclassified (5 sources) Abnormal CT of the abdomen Unclassified (3 sources) Deliveries (Parity); Translations: [Deliveries (Parity)] 07-28-2020 Comment on above: 2 Unclassified (3 sources) Pregnancies (); Translations: [Pregnancies ()] 07-28-2020 Comment on above: 2 Results Test Name Value Interpretation Reference Range Facility Microalb:Creat Ratio,Random URon 08-22-2024 MALB:CREAT 10.2 mg/g CRE Normal [facility] Comment on above: Result Comment: AMENDED REPORT 08/22/24 1433 MALB:CREAT previously reported as: 102.3 mg/g CRE Performed By: #### L 100.0100, L501.9985, L400.0001, L500.4050, L506.1000 #### [facility] [address] [place], [place], [id number] Free T3on 08-16-2024 Free T3 [Mass/Vol] 2.6 pg/mL Normal 2.18-3.98 [facility] Comment on above: Performed By: #### L 100.0100, L501.9985, L400.0001, L500.4050, L506.1000 #### [facility] [address] [place], [address] Free [id number] By: Cole doshi on 08-16-2024 Free T3 [Mass/Vol] 2.6 pg/mL 2.18-3.98 [facility] T4 Free Directon 08-16-2024 T4 FREE DIRECT 0.90 ng/dL Normal 0.76-1.46 [facility] Comment on above: Performed By: #### L 100.0100, L501.9985, L400.0001, L500.4050, L506.1000 #### [facility] [address] [place], [place], [address] T4 freeOrdered By: Cole Fas t on 08-16-2024 Free T4 [Mass/Vol] 0.90 ng/dL 0.76-1.46 [facility] TSH DL <= 0.005 mIU/L QnOrde red By: Cole Fast on 08-16-2024 TSH Qn 2.330 uIU/mL 0.300-4.20 0 [facility] Thyroid Stim Hormone (TSH)on 08-16-2024 TSH 2.330 uIU/mL Normal 0.300-4.20 0 [facility] Comment on above: Performed By: #### L 100.0100, L501.9985, L400.0001, L500.4050, L506.1000 #### [facility] [address] [place], [place], [id number] Absolute lymphocyte countOrd ered By: Cole Fast on 06-19-2024 Lymphocytes Auto (Unsp spec) [#/Vol] 1.60 10*3/uL 0.83-4.51 [facility] Absolute neutrophil countOrd ered By: Cole Fast on 06-19-2024 Neutrophils (Bld) [#/Vol] 2.2 10*3/uL 2.0-7.7 [facility] Albumin DL <= 20 mg/L (U) [M ass/Vol]Ordered By: Cole Fast on 06-19-2024 Urine Random Microalbumin 13.5 mg/L NO RANGE EST. [facility] Anion gap in Serum or Plasma Ordered By: Cole Fast on 06-19-2024 Anion gap [Moles/Vol] 9 mmol/L 5-15 [facility] Automated lymphocyte count a s percentage of total leukocytesOrdered By: Cole Fast on 06-19-2024 Lymphocytes/100 WBC Auto (Unsp spec) 34.5 % 19-41 [facility] BUN/creatinine ratioOrdered By: Cole Fast on 06-19-2024 Urea nitrogen/Creatinine [Mass ratio] 31.0 mg/mg High 10-20 [facility] Basophil percentageOrdered B y: Cole Fast on 06-19-2024 Basophils/100 WBC (Bld) 1.1 % High 0-1 [facility] Bilirubin, totalOrdered By: Cole Fast on 06-19-2024 Bilirubin [Mass/Vol] 0.60 mg/dL 0.00-1.30 [facility] CBC W/Diff, Automatedon 06-04 Absolute Lymph 1.60 X10 3/uL Normal 0.83-4.51 [facility] Comment on above: Performed By: #### L 100.0100, L501.9985, L400.0001, L500.4050, L506.1000 #### [facility] [address] [place], [address] Absolute Neut 2.2 X10 3/uL Normal 2.0-7.7 [facility] Comment on above: Performed By: #### L 100.0100, L501.9985, L400.0001, L500.4050, L506.1000 #### [facility] [address] [place], [address] Basophils/100 WBC (Bld) 1.1 % High 0-1 [facility] Comment on above: Performed By: #### L 100.0100, L501.9985, L400.0001, L500.4050, L506.1000 #### [facility] [address] [place], [address] Eosinophils/100 WBC (Bld) 4.7 % Normal 0-5 [facility] Comment on above: Performed By: #### L 100.0100, L501.9985, L400.0001, L500.4050, L506.1000 #### [facility] [address] [place], [address] Erythrocyte distribution width (RBC) [Ratio] 13.6 % Normal 11.6-14.6 [facility] Comment on above: Performed By: #### L 100.0100, L501.9985, L400.0001, L500.4050, L506.1000 #### [facility] [address] [place], [address] Hematocrit (Bld) [Volume fraction] 38.5 % Normal 37-47 [facility] Comment on above: Performed By: #### L 100.0100, L501.9985, L400.0001, L500.4050, L506.1000 #### [facility] [address] [place], [address] Hemoglobin (Bld) [Mass/Vol] 12.7 g/dL Normal 12.0-15.0 [facility] Comment on above: Performed By: #### L 100.0100, L501.9985, L400.0001, L500.4050, L506.1000 #### [facility] [address] [place], [address] IG% 0.200 Normal 0.0-0.9 [facility] Comment on above: Result Comment: IG% - Immature Granulocytes (promyelocytes, myelocytes and metamyelocytes) > 1% indicates that a LEFT SHIFT is Present. Performed By: #### L 100.0100, L501.9985, L400.0001, L500.4050, L506.1000 #### [facility] [address] [place], [address] Lymphocytes/100 WBC (Bld) 34.5 % Normal 19-41 [facility] Comment on above: Performed By: #### L 100.0100, L501.9985, L400.0001, L500.4050, L506.1000 #### [facility] [address] [place], [address] MCH (RBC) [Entitic mass] 30.3 pg Normal 27.0-32.0 [facility] Comment on above: Performed By: #### L 100.0100, L501.9985, L400.0001, L500.4050, L506.1000 #### [facility] [address] [place], [address] MCHC (RBC) [Mass/Vol] 33.0 g/dL Normal 32-36 [facility] Comment on above: Performed By: #### L 100.0100, L501.9985, L400.0001, L500.4050, L506.1000 #### [facility] [address] [place], [address] MCV (RBC) [Entitic vol] 91.9 fL Normal 81-99 [facility] Comment on above: Performed By: #### L 100.0100, [id number], L400.0001, L500.4050, L506.1000 #### [facility] [address] [place], [address] Monocytes/100 WBC (Bld) 11.6 % High 0-10 [facility] Comment on above: Performed By: #### L 100.0100, [id number], L400.0001, L500.4050, L506.1000 #### [facility] [address] [place], [address] Neutrophils/100 WBC (Bld) 47.9 % Normal 47-70 [facility] Comment on above: Performed By: #### L 100.0100, L501.9985, L400.0001, L500.4050, L506.1000 #### [facility] [address] [place], [address] Nucleated RBC (Bld) [#/Vol] 0 10*3/uL Normal 0-5 [facility] Comment on above: Performed By: #### L 100.0100, L501.9985, L400.0001, L500.4050, L506.1000 #### [facility] [address] [place], [address] Platelet mean volume (Bld) [Entitic vol] 10.4 fL Normal 6.2-12.0 [facility] Comment on above: Performed By: #### L 100.0100, L501.9985, L400.0001, L500.4050, L506.1000 #### [facility] [address] [place], [address] Platelets (Bld) [#/Vol] 180 10*3/uL Normal 150-450 [facility] Comment on above: Performed By: #### L 100.0100, L501.9985, L400.0001, L500.4050, L506.1000 #### [facility] [address] [place], [address] RBC (Bld) [#/Vol] 4.19 10*6/uL Low 4.2-5.4 [facility] Comment on above: Performed By: #### L 100.0100, L501.9985, L400.0001, L500.4050, L506.1000 #### [facility] [address] [place], [address] RDW SD 46.3 fl High 35.1-43.9 [facility] Comment on above: Performed By: #### L 100.0100, L501.9985, L400.0001, L500.4050, L506.1000 #### [facility] [address] [place], [address] WBC (Bld) [#/Vol] 4.6 10*3/uL Normal 4.4-11.0 [facility] Comment on above: Performed By: #### L 100.0100, L501.9985, L400.0001, L500.4050, L506.1000 #### [facility] [address] [place], [address] Calculated very low density lipoprotein (VLDL) cholesterol measurementOrdered By: Cole Fast on 06-19-2024 Calculated very low density lipoprotein (VLDL) cholesterol measurement 7 mg/dL 5-40 [facility] VLDL Cholesterol 7 mg/dL 5-40 [facility] Carbon dioxide, total [Moles /volume] in Central venous bloodOrdered By: Cole Fast on 06-19-2024 CO2 [Moles/Vol] 25.4 mmol/L 21.0-32.0 [facility] Chloride assayOrdered By: De bra Fast on 06-19-2024 Chloride [Moles/Vol] 106 mmol/L 98-108 [facility] Comprehensive Metabolic Prof ilon 06-19-2024 Albumin [Mass/Vol] 4.0 g/dL Normal 3.4-4.8 [facility] Comment on above: Performed By: #### L 100.0100, L501.9985, L400.0001, L500.4050, L506.1000 #### [facility] [address] [facility] [place], [address] Albumin/Globulin [Mass ratio] 1.5 {ratio} Normal 0.9-2.4 [facility] Comment on above: Performed By: #### L 100.0100, L501.9985, L400.0001, L500.4050, L506.1000 #### [facility] [address] [place], [address] ALK PHOS 63 U/L Normal 35-104 [facility] Comment on above: Performed By: #### L 100.0100, L501.9985, L400.0001, L500.4050, L506.1000 #### [facility] [address] [place], [address] ALT [Catalytic activity/Vol] 14 U/L Normal <=34 [facility] Comment on above: Performed By: #### L 100.0100, L501.9985, L400.0001, L500.4050, L506.1000 #### [facility] [address] [place], [address] AST [Catalytic activity/Vol] 31 U/L Normal <=31 [facility] Comment on above: Performed By: #### L 100.0100, L501.9985, L400.0001, L500.4050, L506.1000 #### [facility] [address] [place], [address] Bilirubin [Mass/Vol] 0.60 mg/dL Normal 0.00-1.30 [facility] Comment on above: Performed By: #### L 100.0100, L501.9985, L400.0001, L500.4050, L506.1000 #### [facility] [address] [place], [address] BUN/CRE 31.0 RATIO High 10-20 [facility] Comment on above: Performed By: #### L 100.0100, L501.9985, L400.0001, L500.4050, L506.1000 #### [facility] [address] [place], [address] Calcium [Mass/Vol] 9.2 mg/dL Normal 7.6-11.0 [facility] Comment on above: Performed By: #### L 100.0100, L501.9985, L400.0001, L500.4050, L506.1000 #### [facility] [address] [place], [address] Chloride [Moles/Vol] 106 mmol/L Normal 98-108 [facility] Comment on above: Performed By: #### L 100.0100, L501.9985, L400.0001, L500.4050, L506.1000 #### [facility] [address] [place], [address] CO2 [Moles/Vol] 25.4 mmol/L Normal 21.0-32.0 [facility] Comment on above: Performed By: #### L 100.0100, L501.9985, L400.0001, L500.4050, L506.1000 #### [facility] [address] [place], [address] Creatinine [Mass/Vol] 0.84 mg/dL Normal 0.70-1.20 [facility] Comment on above: Performed By: #### L 100.0100, L501.9985, L400.0001, L500.4050, L506.1000 #### [facility] [address] [place], [address] GAP 9 Normal 5-15 [facility] Comment on above: Performed By: #### L 100.0100, L501.9985, L400.0001, L500.4050, L506.1000 #### [facility] [address] [place], [address] GFR/1.73 sq M.predicted among non-blacks MDRD (S/P/Bld) [Vol rate/Area] 70 mL/min/{1.73_m2} Normal >60 [facility] Comment on above: Result Comment: mL/m in/1.73m2 CKD-EPI Creatinine Equation (2020) Performed By: #### L 100.0100, L501.9985, L400.0001, L500.4050, L506.1000 #### [facility] [address] [place], [address] Globulin (S) [Mass/Vol] 2.6 g/dL Normal 2.2-4.2 [facility] Comment on above: Performed By: #### L 100.0100, L501.9985, L400.0001, L500.4050, L506.1000 #### [facility] [address] [place], [address] Glucose [Mass/Vol] 85 mg/dL Normal 70-99 [facility] Comment on above: Performed By: #### L 100.0100, L501.9985, L400.0001, L500.4050, L506.1000 #### [facility] [address] [place], [address] Potassium [Moles/Vol] 4.7 mmol/L Normal 3.3-5.1 [facility] Comment on above: Performed By: #### L 100.0100, L501.9985, L400.0001, L500.4050, L506.1000 #### [facility] [address] [place], [address] Sodium [Moles/Vol] 141 mmol/L Normal 133-145 [facility] Comment on above: Performed By: #### L 100.0100, L501.9985, L400.0001, L500.4050, L506.1000 #### [facility] [address] [place], [address] T PROT 6.6 g/dL Normal 5.9-8.4 [facility] Comment on above: Performed By: #### L 100.0100, L501.9985, L400.0001, L500.4050, L506.1000 #### [facility] [address] [place], [address] Urea nitrogen [Mass/Vol] 26 mg/dL High 4-19 [facility] Comment on above: Performed By: #### L 100.0100, L501.9985, L400.0001, L500.4050, L506.1000 #### [facility] [address] [place], [address] Creatinine Unsp time (U) [Ma ss/Vol]Ordered By: Cole Fast on 06-19-2024 Creatinine (U) [Mass/Vol] 132.00 mg/dL 28.00-217. 00 [facility] Eosinophil percentageOrdered By: Cole Fast on 06-19-2024 Eosinophils/100 WBC (Bld) 4.7 % 0-5 [facility] Erythrocyte distribution wid th (RBC) [Ratio]Ordered By: Cole Fast on 06-19-2024 Erythrocyte distribution width (RBC) [Entitic vol] 46.3 fL High 35.1-43.9 [facility] Erythrocyte distribution wid th ratioOrdered By: Cole Fast on 06-19-2024 Erythrocyte distribution width (RBC) [Ratio] 13.6 % 11.6-14.6 [facility] Erythrocyte distribution wid th standard deviationOrdered By: Cole Fast on 06-19-2024 Erythrocyte distribution width (RBC) [Ratio] 46.3 fl High 35.1-43.9 [facility] GFR/1.73 sq M.predicted christelle g non-blacks MDRD (S/P/Bld) [Vol rate/Area]Ordered By: Cole on 06-19-2024 Estimated GFR (MDRD) Non-Af Amer 70 >60 [facility] Comment on above: mL/min/1.73m2 CKD-EP I Creatinine Equation (2020) Glomerular filtration rate ( GFR) estimation/1.73 sq m using serum, plasma, or whole bOrdered By: on 06-19-2024 GFR/1.73 sq M.predicted among non-blacks MDRD (S/P/Bld) [Vol rate/Area] 70 mL/min/{1.73_m2} >60 [facility] Comment on above: mL/min/1.73m2 CKD-EP I Creatinine Equation (2020) Hematocrit Auto (Bld) [Volum e fraction]Ordered By: on 06-19-2024 Hematocrit (Bld) [Volume fraction] 38.5 % 37-47 [facility] Hemoglobin A1con 06-19-2024 HbA1c (Bld) [Mass fraction] 5.7 % Normal <=5.6 [facility] Comment on above: Result Comment: Norm al < 5.7 % Prediabetic 5.7 - 6.4 % Diabetic >or= 6.5 % Please note range changes. Performed By: #### L 100.0100, L501.9985, L400.0001, L500.4050, L506.1000 #### [facility] [address] [place], [address] Hemoglobin A1c percentageOrd ered By: Cole Grover on 06-19-2024 HbA1c (Bld) [Mass fraction] 5.7 % <5.7 [facility] Comment on above: Normal < 5.7 % Predi abetic 5.7 - 6.4 % Diabetic >or= 6.5 % Please note range changes. Hemoglobin measurementOrdere d By: Cole Grover on 06-19-2024 Hemoglobin (Bld) [Mass/Vol] 12.7 g/dL 12.0-15.0 [facility] Immature granulocytes/100 WB C Auto (Bld)Ordered By: Coledavid Grover on 06-19-2024 Immature granulocytes/100 WBC (Bld) 0.200 % 0.0-0.9 [facility] Comment on above: IG% - Immature Granu locytes (promyelocytes, myelocytes and metamyelocytes) > 1% indicates that a LEFT SHIFT is Present. LDL calc ser/plasOrdered By: Cole Grover on 06-19-2024 Cholesterol in LDL [Mass/Vol] 64 mg/dL [facility] Comment on above: Muvczpuvfx=243-029 m g/dL & Higher Bnqp=493 mg/dL or greater LDL Cholesterol, Calculated 64 mg/dL [facility] Comment on above: Jzdxdacqqg=279-641 m g/dL & Higher Zbey=427 mg/dL or greater Laboratory - Chemistry and C hemistry - challengeOrdered By: Coledavid Grover on 06-19-2024 AST [Catalytic activity/Vol] 31 U/L <32 [facility] Lipid Profileon 06-19-2024 CHOL:HDL 1.62 Normal [facility] Comment on above: Performed By: #### L 100.0100, L501.9985, L400.0001, L500.4050, L506.1000 #### [facility] [address] [place], [address] Cholesterol [Mass/Vol] 186 mg/dL Normal <=200 [facility] Comment on above: Result Comment: Chol esterol level, Desirable <200 mg/dL Borderline high cholesterol 200-239 mg/dL High cholesterol >=240 mg/dL Recommendations of the NCEP Adult Treatment Panel for the following risk-cutoff thresholds for the [place] population. Performed By: #### L 100.0100, L501.9985, L400.0001, L500.4050, L506.1000 #### [facility] [address] [place], [address] Cholesterol in HDL [Mass/Vol] 115 mg/dL Normal [facility] Comment on above: Result Comment: Francesca onal Cholesterol Education Program (NCEP) guidelines: <40 mg/dL: Low HDL-cholesterol (major risk factor for CHD) >= 60 mg/dL: High HDL-cholesterol (negative risk factor for CHD) HDL-cholesterol is affected by a number of factors, e.g. smoking, exercise, hormones, sex and age. Performed By: #### L 100.0100, L501.9985, L400.0001, L500.4050, L506.1000 #### [facility] [address] [place], [address] Cholesterol in LDL [Mass/Vol] 64 mg/dL Normal [facility] Comment on above: Result Comment: Bord hcfbwp=434-766 mg/dL Higher Uhjs=001 mg/dL or greater Performed By: #### L 100.0100, L501.9985, L400.0001, L500.4050, L506.1000 #### [facility] [address] [place], [address] Cholesterol in VLDL [Mass/Vol] 7 mg/dL Normal 5-40 [facility] Comment on above: Performed By: #### L 100.0100, L501.9985, L400.0001, L500.4050, L506.1000 #### [facility] [address] [place], [address] Triglyceride [Mass/Vol] 35 mg/dL Normal [facility] Comment on above: Result Comment: The drugs N-Acetylcysteine and Metamizole may falsely depress this assay. Normal range: <150 mg/dL Borderline High: 150-199 mg/dL High: 200-499 mg/dL Very High: >500 mg/dL Performed By: #### L 100.0100, L501.9985, L400.0001, L500.4050, L506.1000 #### [facility] [address] [place], [address] Lymphocytes Auto (Unsp spec) [#/Vol]Ordered By: Cole Fast on 06-19-2024 Lymphocytes (Bld) [#/Vol] 1.60 10*3/uL 0.83-4.51 [facility] Lymphocytes/100 WBC Auto (Un sp spec)Ordered By: Cole Fast on 06-19-2024 Lymphocytes/100 WBC (Bld) 34.5 % 19-41 [facility] MCV (mean corpuscular volume ) determinationOrdered By: Cole Fast on 06-19-2024 MCV (RBC) [Entitic vol] 91.9 fL 81-99 [facility] Mean corpuscular hemoglobin (MCH) determinationOrdered By: Cole Fast on 06-19-2024 MCH (RBC) [Entitic mass] 30.3 pg 27.0-32.0 [facility] Mean corpuscular hemoglobin concentration (MCHC) determinationOrdered By: Cole Fast on 06-19-2024 MCHC (RBC) [Mass/Vol] 33.0 g/dL 32-36 [facility] Mean platelet volume determi nationOrdered By: Cole Fast on 06-19-2024 Platelet mean volume (Bld) [Entitic vol] 10.4 fL 6.2-12.0 [facility] Microalbumin/creat ratio urO rdered By: Cole Fast on 06-19-2024 Urine Microalbumin/Creatini ne Ratio 102.3 mg/g CRE [facility] Monocyte percentageOrdered B y: Cole Fast on 06-19-2024 Monocytes/100 WBC (Bld) 11.6 % High 0-10 [facility] Neutrophil percentageOrdered By: Cole Fast on 06-19-2024 Neutrophils/100 WBC (Bld) 47.9 % 47-70 [facility] Nucleated red blood cell per centageOrdered By: Cole Fast on 06-19-2024 Nucleated RBC/100 WBC (Bld) [Ratio] 0 % 0-5 [facility] Platelet countOrdered By: Bills on 06-19-2024 Platelets (Bld) [#/Vol] 180 10*3/uL 150-450 [facility] Potassium (Unsp spec) [Mass/ Vol]Ordered By: 06-19-2024 Potassium [Moles/Vol] 4.7 mmol/L 3.3-5.1 [facility] Potassium measurement (mass/ volume)Ordered By: on 06-19-2024 Potassium (Unsp spec) [Mass/Vol] 4.7 mmol/L 3.3-5.1 [facility] RBC Auto (Bld) [#/Vol]Ordere d By: on 06-19-2024 RBC (Bld) [#/Vol] 4.19 10*6/uL Low 4.2-5.4 [facility] Random urine creatinine franklin urement (mass/volume)Ordered By: 06-19-2024 Creatinine Unsp time (U) [Mass/Vol] 132.00 mg/dL 28.00-217. 00 [facility] Screening total cholesterol/ high density lipoprotein (HDL) cholesterol ratioOrdered By: 06-19-2024 Cholesterol.total/Cho lesterol in HDL [Mass ratio] 1.62 {ratio} [facility] Serum creatinine measurement (mass/volume)Ordered By: 06-19-2024 Creatinine [Mass/Vol] 0.84 mg/dL 0.70-1.20 [facility] Serum globulin measurementOr dered By: 06-19-2024 Globulin (S) [Mass/Vol] 2.6 g/dL 2.2-4.2 [facility] Serum glucose measurement (m ass/volume)Ordered By: 06-19-2024 Glucose [Mass/Vol] 85 mg/dL 70-99 [facility] Serum or plasma alanine mcbride otransferase (ALT) measurementOrdered By: 06-19-2024 ALT [Catalytic activity/Vol] 14 U/L <35 [facility] Serum or plasma albumin franklin urement (mass/volume)Ordered By: on 06-19-2024 Albumin [Mass/Vol] 4.0 g/dL 3.4-4.8 [facility] Serum or plasma albumin/glob ulin mass ratioOrdered By: 06-19-2024 Albumin/Globulin [Mass ratio] 1.5 {ratio} 0.9-2.4 [facility] Serum or plasma alkaline sandee sphatase measurementOrdered By: 06-19-2024 ALP [Catalytic activity/Vol] 63 U/L 35-104 [facility] Serum or plasma calcium franklin urement (mass/volume)Ordered By: 06-19-2024 Calcium [Mass/Vol] 9.2 mg/dL 7.6-11.0 [facility] Serum or plasma cholesterol in HDL measurement (mass/volume)Ordered By: 06-19-2024 Cholesterol in HDL [Mass/Vol] 115 mg/dL >40 [facility] Comment on above: National Cholesterol Education Program (NCEP) guidelines:<40 mg/dL: Low HDL-cholesterol (major risk factor for CHD)>= 60 mg/dL: High HDL-cholesterol (negative risk factor for CHD)HDL-cholesterol is affected by a number of factors, e.g. smoking, exercise, hormones, sex and age. Serum or plasma cholesterol measurement (mass/volume)Ordered By: 06-19-2024 Cholesterol [Mass/Vol] 186 mg/dL <201 [facility] Comment on above: Cholesterol level, D esirable <200 mg/dLBorderline high cholesterol 200-239 mg/dLHigh cholesterol >=240 mg/dLRecommendations of the NCEP Adult Treatment Panel for the following risk-cutoff thresholds for the [place] population. Serum or plasma urea nitroge n measurement (mass/volume)Ordered By: 06-19-2024 Urea nitrogen [Mass/Vol] 26 mg/dL High 4-19 [facility] Sodium levelOrdered By: 06-19-2024 Sodium [Moles/Vol] 141 mmol/L 133-145 [facility] TSH DL <= 0.005 mIU/L QnOrde red By: 06-19-2024 Thyroid Stimulating Hormone (TSH) 4.330 uIU/mL High 0.300-4.20 0 [facility] TSH Qn 4.330 uIU/mL High 0.300-4.20 0 [facility] Thyroid Stim Hormone (TSH)on 06-19-2024 TSH 4.330 uIU/mL High 0.300-4.20 0 [facility] Comment on above: Performed By: #### L 100.0100, L501.9985, L400.0001, L500.4050, L506.1000 #### [facility] [address] [place], [place], [id number] Total proteinOrdered By: Hamida Grover on 06-19-2024 Protein [Mass/Vol] 6.6 g/dL 5.9-8.4 [facility] Triglycerides measurementOrd ered By: Cole Grover on 06-19-2024 Triglyceride [Mass/Vol] 35 mg/dL <199 [facility] Comment on above: The drugs N-Acetylcy steine and Metamizole may falsely depress this assay. Normal range: <150 mg/dLBorderline High: 150-199 mg/dLHigh: 200-499 mg/dLVery High: >500 mg/dL Urine albumin measurement [facility] detection limit of 20 mg/L or less (mass/volume)Ordered By: Cole Grover on 06-19-2024 Albumin DL <= 20 mg/L (U) [Mass/Vol] 13.5 mg/L NO RANGE EST. [facility] White blood cell (WBC) count Ordered By: Cole Grover on 06-19-2024 WBC (Bld) [#/Vol] 4.6 10*3/uL 4.4-11.0 [facility] Cardiology Visit Reporton Cardiology Visit Report [facility] [address] [place], [place] [address] OFFICE VISIT Date of Service: 06/04/24 MR#: [id number] Acct: [id number] Name: BREANNA PURCELL Rep #: [id number] : 1940 Provider: DWIGHT carvalho Age/Sex: 83/F Location: [facility] Status: Signed HPI HPI History of Present Illness Details: Pleasant 83-year-old lady with no previous cardiac history who is being evaluated for shortness of breath on an incline. She actually has seen the glue mixer and no significant abnormalities have been noted she did undergo an echocardiographic evaluation which demonstrated an ejection fraction of 70% mild biatrial enlargement mild mitral regurgitation and right ventricular systolic pressure estimated to be 38 mmHg. Her shortness of breath she says is only when she is going up inclines. She did undergo a stress test where she exercised to 7 metabolic equivalents attaining appropriate heart rate and blood pressure with no evidence of ischemia. She has also seen the glue mixer and no significant abnormalities have been noted. This is on pulmonary function testing. She denies chest, arm, jaw, or neck discomfort. She denies palpitations. She states bilateral lower extremity edema that is stable with Lasix therapy. She denies claudication. She continues with shortness of breath when going uphill or going up stairs. This is noted in warmer weather. She does not feel this to be worsening. She denies shortness of breath at rest, orthopnea, or PND. She denies chronic cough. She denies significant, sudden weight gain. She states dizziness when overheated as well as occasional lightheaded. She denies near-syncope or syncope. She denies blood in urine, blood in stool, or epistaxis. He denies fever with chills. She denies myalgia. She denies fatigue. Her exercise level has remained stable, but limited due to back issues/pain. Intake Vital Signs 03/17/23 10:12 06/04/24 13:29 Height 5 ft 3.25 in 5 ft 3.25 in Weight: 129 lb BMI 22.6 BP 105/64 Blood Pressure Location Lt brachial Position Sitting Respiration 14 Pulse 78 Pulse Source NIBP Intake Visit Reasons: 1 Y FU/MOVED FROM [facility] Sales Program Coordinator Required: No Is patient in pain?: No Allergies No Known Allergies Allergy (Verified 06/04/24 13:34) Medications ???Medication ???Instructions ???Recorded ???Confirmed ???Type calcium carbonate 03/12/20 06/04/24 History cholecalciferol (vitamin D3) 25 50 mcg PO DAILY 03/12/20 06/04/24 History mcg (1,000 unit) capsule furosemide 20 mg tablet 20 mg PO DAILY #90 tabs 01/10/24 0 06/04/24 Rx ibandronate 150 mg tablet 150 mg PO QMONTH 06/04/24 06/04/24 History Ejection fraction %: 65 Have you fallen in the past year?: No PFSH Medical History Dyspnea on exertion Enterocolitis Dehydration Tachycardia Diarrhea Abdominal pain Small vessel disease, cerebrovascular Syncope Atherosclerosis Osteoarthritis Cardiac arrhythmia Surgical History History of colonoscopy History of esophagogastroduodenoscop y (EGD) History of right inguinal hernia repair Family History Mother Colon cancer Breast cancer Hypertension Father Colon cancer Social History Smoking Status: Never smoker alcohol intake: current alcohol intake frequency: holidays/special occasions only substance use type: does not use caffeine: Yes Type: coffee Number of servings: 1 and tea Number of servings: 1 ROS Const Const: Negative for fatigue or weakness Eyes Eyes: Negative for change in vision ENT ENT: Negative for dizziness or balance problems Cardio Chest Pain: No Palpitations: No Edema: None (Controlled with lasix) Muscle aches with walking: None Resp Respiratory: Positive for SOB with activity (Occasionally when going up stairs); Negative for SOB at rest or SOB orthopnea SOB lying down GI GI: Negative nausea or heartburn : Negative for hematuria or frequent nighttime urination/ nocturia Musc Musc: Negative for balance problems Skin Skin: Negative non-healing lesions or rash Neuro Neuro: Negative for dizziness, lightheadedness, near syncope, syncope or weakness Endo Endo: Negative for fatigue Allergy Allergy/Immunology: Negative for rash Cardiology Exam Const Appearance: cooperative, healthy appearing, comfortable and no acute distress Nutritional Appearance: average body habitus and well nourished Orientation: alert, awake and oriented x3 Head Head: normal to inspection Ears: hearing grossly normal bilaterally Nose: external nose normal Face and Sinus: face symmetric Mouth: moist mucous membranes Ey (more content not included)... Normal [facility] L/S Spine Min 4 Viewson 01-2 2-2025 L/S Spine Min [address] [facility] Imaging Services [address] [place], [place] [address] L/S Spine Min 4 Views MR#: [id number] Acct: [id number] Name: BREANNA PURCELL Rep #: [id number] : 1940 F 83 From: Krysten mcduffie MD PCP: Dr. Cole Grover DO Status: REG CLI Study: L/S Spine Min 4 Views Date of Exam: 03/27/24 Exam# [id number] Ordering Dr: Cole Grover DO [id number] HISTORY: lumbar spine xray, 4 views - lumbar radiculopathy -- lumbar spine xray, 4 views - lumbar radiculopathy. TECHNIQUE: XR Spine Lumbar Min 4 Views. COMPARISON: 01/13/2022. FINDINGS: VERTEBRAE: Vertebral body heights preserved. Degenerative changes of the posterior elements. ALIGNMENT: No significant anterior or posterior subluxation. Mild levoscoliosis. INTERVERTEBRAL DISCS: Degenerative osteophytes of L2-3 and L3-4. Degenerative endplate changes with intervertebral disc space narrowing at L4-5 and L5-S1. RAD/L/S Spine Min 4 Views IMPRESSION: No acute fracture or dislocation identified in the lumbar spine. Mild degenerative change. Electronically Signed: Krysten Garza MD at 14:33 EST , CC: Dr. Cole Grover DO School Librarian: Signed Normal [facility] [id number] DOrdered By: Mike Grover on 03-19-2024 Vitamin D 25-Hydroxy 63.8 ng/mL [facility] Comment on above: Vitamin D 25(OH) Sta tus Range Deficiency <20 ng/mL (50nmol/L) Insufficiency 20 - 30 ng/mL (50 - 75 nmol/L) Sufficiency 30 - 100 ng/mL (75 - 250 nmol/L) Toxicity >100 ng/mL (>250 nmol/L) Absolute neutrophil countOrd ered By: Cole Fast on 03-19-2024 Neutrophils (Bld) [#/Vol] 2.4 10*3/uL 2.0-7.7 [facility] Albumin to globulin ratioOrd ered By: Cole Fast on 03-19-2024 Albumin/Globulin [Mass ratio] 1.1 {ratio} 0.9-2.4 [facility] Automated blood erythrocyte countOrdered By: Cole Fast on 03-19-2024 RBC (Bld) [#/Vol] 4.51 10*6/uL Normal 4.2-5.4 [facility] Comment on above: Performed By: #### L 100.0100, L501.9985, L506.1000, L500.4050 #### [facility] [address] [place], [address] Automated blood hematocrit ( percentage)Ordered By: Cole Fast on 03-19-2024 Hematocrit (Bld) [Volume fraction] 41.4 % Normal 37-47 [facility] Comment on above: Performed By: #### L 100.0100, L501.9985, L506.1000, L500.4050 #### [facility] [address] [place], [address] Automated lymphocyte count a s percentage of total leukocytesOrdered By: Cole Fast on 03-19-2024 Lymphocytes/100 WBC (Bld) 38.1 % Normal 19-41 [facility] Comment on above: Performed By: #### L 100.0100, L501.9985, L506.1000, L500.4050 #### [facility] [address] [place], [address] Basophil percentageOrdered B y: Cole Fast on 03-19-2024 Basophils/100 WBC (Bld) 1.1 % High 0-1 [facility] Comment on above: Performed By: #### L 100.0100, L501.9985, L506.1000, L500.4050 #### [facility] [address] [place], [address] Bilirubin, totalOrdered By: Cole on 03-19-2024 Bilirubin [Mass/Vol] 0.80 mg/dL 0.20-1.00 [facility] Comment on above: For patients on eltr ombopag therapy, use of Dimension [place] TBIL is not recommended. Blood urea nitrogen (BUN)/cr eatinine ratioOrdered By: on 03-19-2024 Urea nitrogen/Creatinine [Mass ratio] 29.6 mg/mg High 10-20 [facility] CBC W/Diff, Automatedon 03-06 Absolute Lymph 2.01 X10 3/uL Normal 0.83-4.51 [facility] Comment on above: Performed By: #### L 100.0100, L501.9985, L506.1000, L500.4050 #### [facility] [address] [place], [address] Absolute Neut 2.4 X10 3/uL Normal 2.0-7.7 [facility] Comment on above: Performed By: #### L 100.0100, L501.9985, L506.1000, L500.4050 #### [facility] [address] [place], [address] IG% 0.400 Normal 0.0-0.9 [facility] Comment on above: Result Comment: IG% - Immature Granulocytes (promyelocytes, myelocytes and metamyelocytes) > 1% indicates that a LEFT SHIFT is Present. Performed By: #### L 100.0100, L501.9985, L506.1000, L500.4050 #### [facility] [address] [place], [address] Nucleated RBC (Bld) [#/Vol] 0 10*3/uL Normal 0-5 [facility] Comment on above: Performed By: #### L 100.0100, L501.9985, L506.1000, L500.4050 #### [facility] [address] [place], [address] RDW SD 44.3 fl High 35.1-43.9 [facility] Comment on above: Performed By: #### L 100.0100, L501.9985, L506.1000, L500.4050 #### [facility] [address] [place], [address] Carbon dioxide measurementOr dered By: Cole Fast on 03-19-2024 CO2 [Moles/Vol] 31.0 mmol/L 21.0-32.0 [facility] Chloride measurementOrdered By: Cole Fast on 03-19-2024 Chloride [Moles/Vol] 106 mmol/L 98-107 [facility] Comprehensive Metabolic Prof ilon 03-19-2024 Albumin [Mass/Vol] 3.7 g/dL Normal 3.2-5.0 [facility] Comment on above: Performed By: #### L 100.0100, L501.9985, L506.1000, L500.4050 #### [facility] [address] [place], [address] Albumin/Globulin [Mass ratio] 1.1 {ratio} Normal 0.9-2.4 [facility] Comment on above: Performed By: #### L 100.0100, L501.9985, L506.1000, L500.4050 #### [facility] [address] [place], [address] ALK P 63 U/L Normal 45-117 [facility] Comment on above: Performed By: #### L 100.0100, L501.9985, L506.1000, L500.4050 #### [facility] [address] [place], [address] ALT [Catalytic activity/Vol] 17 U/L Normal 13-56 [facility] Comment on above: Performed By: #### L 100.0100, L501.9985, L506.1000, L500.4050 #### [facility] [address] [place], [address] AST [Catalytic activity/Vol] 25 U/L Normal 15-37 [facility] Comment on above: Performed By: #### L 100.0100, L501.9985, L506.1000, L500.4050 #### [facility] [address] [place], [address] Bilirubin [Mass/Vol] 0.80 mg/dL Normal 0.20-1.00 [facility] Comment on above: Result Comment: For patients on eltrombopag therapy, use of Dimension [place] TBIL is not recommended. Performed By: #### L 100.0100, L501.9985, L506.1000, L500.4050 #### [facility] [address] [place], [address] BUN/CRE 29.6 RATIO High 10-20 [facility] Comment on above: Performed By: #### L 100.0100, L501.9985, L506.1000, L500.4050 #### [facility] [address] [place], [address] CA,Total 9.3 mg/dL Normal 8.5-10.1 [facility] Comment on above: Performed By: #### L 100.0100, L501.9985, L506.1000, L500.4050 #### [facility] [address] [place], [address] Chloride [Moles/Vol] 106 mmol/L Normal 98-107 [facility] Comment on above: Performed By: #### L 100.0100, L501.9985, L506.1000, L500.4050 #### [facility] [address] [place], [address] CO2 [Moles/Vol] 31.0 mmol/L Normal 21.0-32.0 [facility] Comment on above: Performed By: #### L 100.0100, L501.9985, L506.1000, L500.4050 #### [facility] [address] [place], [address] Creatinine [Mass/Vol] 0.85 mg/dL Normal 0.55-1.02 [facility] Comment on above: Result Comment: The validity of the calculated GFR GFRAA in patients over 70 years has not been determined. Clinical correlation is essential. Performed By: #### L 100.0100, L501.9985, L506.1000, L500.4050 #### [facility] [address] [place], [address] EST GFR - AA 83 mL/min Normal >60 [facility] Comment on above: Result Comment: Afri can Syrian GFR Calc Performed By: #### L 100.0100, L501.9985, L506.1000, L500.4050 #### [facility] [address] [place], [address] GAP 4 Low 5-15 [facility] Comment on above: Performed By: #### L 100.0100, L501.9985, L506.1000, L500.4050 #### [facility] [address] [place], [address] GFR/1.73 sq M.predicted among non-blacks MDRD (S/P/Bld) [Vol rate/Area] 68 mL/min/{1.73_m2} Normal >60 [facility] Comment on above: Result Comment: Non- GFR Calc Performed By: #### L 100.0100, L501.9985, L506.1000, L500.4050 #### [facility] [address] [place], [address] Globulin (S) [Mass/Vol] 3.5 g/dL Normal 2.2-4.2 [facility] Comment on above: Performed By: #### L 100.0100, L501.9985, L506.1000, L500.4050 #### [facility] [address] [place], [address] Glucose [Mass/Vol] 96 mg/dL Normal 74-106 [facility] Comment on above: Performed By: #### L 100.0100, L501.9985, L506.1000, L500.4050 #### [facility] [address] [place], [address] Potassium [Moles/Vol] 4.2 mmol/L Normal 3.5-5.1 [facility] Comment on above: Performed By: #### L 100.0100, L501.9985, L506.1000, L500.4050 #### [facility] [address] [place], [address] Sodium [Moles/Vol] 142 mmol/L Normal 136-145 [facility] Comment on above: Performed By: #### L 100.0100, L501.9985, L506.1000, L500.4050 #### [facility] [address] [place], [address] T PROT 7.2 g/dL Normal 6.4-8.2 [facility] Comment on above: Performed By: #### L 100.0100, L501.9985, L506.1000, L500.4050 #### [facility] [address] [place], [address] Urea nitrogen [Mass/Vol] 25 mg/dL High 7-18 [facility] Comment on above: Performed By: #### L 100.0100, L501.9985, L506.1000, L500.4050 #### [facility] [address] [place], [address] Eosinophil percentageOrdered By: Cole Grover on 03-19-2024 Eosinophils/100 WBC (Bld) 4.7 % Normal 0-5 [facility] Comment on above: Performed By: #### L 100.0100, L501.9985, L506.1000, L500.4050 #### [facility] [address] [place], [place], [address] Erythrocyte distribution wid th (RBC) [Ratio]Ordered By: Cole Fast on 03-19-2024 Erythrocyte distribution width (RBC) [Entitic vol] 44.3 fL High 35.1-43.9 [facility] Erythrocyte distribution wid th ratioOrdered By: Cole Fast on 03-19-2024 Erythrocyte distribution width (RBC) [Ratio] 13.2 % Normal 11.6-14.6 [facility] Comment on above: Performed By: #### L 100.0100, L501.9985, L506.1000, L500.4050 #### [facility] [address] [place], [place], [address] Estimated glomerular filtrat ion rate (GFR) AmericanOrdered By: Cole Fast on 03-19-2024 Estimated GFR (MDRD) Amer 83 mL/min >60 [facility] Comment on above: GFR Calc Glomerular filtration rate ( GFR) estimationOrdered By: Cole Fast on 03-19-2024 Estimated GFR (MDRD) Non-Af Amer 68 mL/min >60 [facility] Comment on above: Non- GFR Calc Glucose measurementOrdered B y: Cole Fast on 03-19-2024 Glucose [Mass/Vol] 96 mg/dL 74-106 [facility] Hemoglobin A1con 03-19-2024 HbA1c (Bld) [Mass fraction] 5.6 % Normal 3.8-5.6 [facility] Comment on above: Result Comment: Norm al < 5.7 % Prediabetic 5.7 - 6.4 % Diabetic >or= 6.5 % Please note range changes. Performed By: #### L 100.0100, L501.9985, L506.1000, L500.4050 #### [facility] [address] [place], [address] Hemoglobin A1c percentageOrd ered By: Cole on 03-19-2024 HbA1c (Bld) [Mass fraction] 5.6 % 3.8-5.6 [facility] Comment on above: Normal < 5.7 % Predi abetic 5.7 - 6.4 % Diabetic >or= 6.5 % Please note range changes. Hemoglobin measurementOrdere d By: Cole on 03-19-2024 Hemoglobin (Bld) [Mass/Vol] 13.2 g/dL Normal 12.0-15.0 [facility] Comment on above: Performed By: #### L 100.0100, L501.9985, L506.1000, L500.4050 #### [facility] [address] [place], [address] Immature granulocytes/100 WB C Auto (Bld)Ordered By: Cole on 03-19-2024 Immature granulocytes/100 WBC (Bld) 0.400 % 0.0-0.9 [facility] Comment on above: IG% - Immature Granu locytes (promyelocytes, myelocytes and metamyelocytes) > 1% indicates that a LEFT SHIFT is Present. Laboratory - Chemistry and C hemistry - challengeOrdered By: Cole on 03-19-2024 AST [Catalytic activity/Vol] 25 U/L 15-37 [facility] Lymphocytes Auto (Unsp spec) [#/Vol]Ordered By: Cole on 03-19-2024 Lymphocytes (Bld) [#/Vol] 2.01 10*3/uL 0.83-4.51 [facility] MCV (mean corpuscular volume ) determinationOrdered By: Cole on 03-19-2024 MCV (RBC) [Entitic vol] 91.8 fL Normal 81-99 [facility] Comment on above: Performed By: #### L 100.0100, L501.9985, L506.1000, L500.4050 #### [facility] [address] [place], [address] Mean corpuscular hemoglobin (MCH) determinationOrdered By: Cole Fast on 03-19-2024 MCH (RBC) [Entitic mass] 29.3 pg Normal 27.0-32.0 [facility] Comment on above: Performed By: #### L 100.0100, L501.9985, L506.1000, L500.4050 #### [facility] [address] [place], [address] Mean corpuscular hemoglobin concentration (MCHC) determinationOrdered By: Cole Fast on 03-19-2024 MCHC (RBC) [Mass/Vol] 31.9 g/dL Low 32-36 [facility] Comment on above: Performed By: #### L 100.0100, L501.9985, L506.1000, L500.4050 #### [facility] [address] [place], [address] Mean platelet volume determi nationOrdered By: Cole Fast on 03-19-2024 Platelet mean volume (Bld) [Entitic vol] 10.0 fL Normal 6.2-12.0 [facility] Comment on above: Performed By: #### L 100.0100, L501.9985, L506.1000, L500.4050 #### [facility] [address] [place], [address] Monocyte percentageOrdered B y: Cole Fast on 03-19-2024 Monocytes/100 WBC (Bld) 10.4 % High 0-10 [facility] Comment on above: Performed By: #### L 100.0100, L501.9985, L506.1000, L500.4050 #### [facility] [address] [place], [address] Neutrophil percentageOrdered By: Cole Fast on 03-19-2024 Neutrophils/100 WBC (Bld) 45.3 % Low 47-70 [facility] Comment on above: Performed By: #### L 100.0100, L501.9985, L506.1000, L500.4050 #### [facility] [address] [place], [address] Nucleated red blood cell per centageOrdered By: on 03-19-2024 Nucleated RBC/100 WBC (Bld) [Ratio] 0 % 0-5 [facility] Platelet countOrdered By: De benny on 03-19-2024 Platelets (Bld) [#/Vol] 203 10*3/uL Normal 150-450 [facility] Comment on above: Performed By: #### L 100.0100, L501.9985, L506.1000, L500.4050 #### [facility] [address] [place], [address] Potassium measurementOrdered By: Cole on 03-19-2024 Potassium [Moles/Vol] 4.2 mmol/L 3.5-5.1 [facility] Serum anion gap measurementO rdered By: Cole on 03-19-2024 Anion gap [Moles/Vol] 4 mmol/L Low 5-15 [facility] Serum globulin measurementOr dered By: on 03-19-2024 Globulin (S) [Mass/Vol] 3.5 g/dL 2.2-4.2 [facility] Serum or plasma alanine mcbride otransferase (ALT) measurementOrdered By: Cole on 03-19-2024 ALT [Catalytic activity/Vol] 17 U/L 13-56 [facility] Serum or plasma albumin franklin urement (mass/volume)Ordered By: Cole Fast on 03-19-2024 Albumin [Mass/Vol] 3.7 g/dL 3.2-5.0 [facility] Serum or plasma alkaline sandee sphatase measurementOrdered By: on 03-19-2024 ALP [Catalytic activity/Vol] 63 U/L 45-117 [facility] Serum or plasma calcium franklin urement (mass/volume)Ordered By: Cole Fast on 03-19-2024 Calcium [Mass/Vol] 9.3 mg/dL 8.5-10.1 [facility] Serum or plasma creatinine m easurement (mass/volume)Ordered By: Cole Fast on 03-19-2024 Creatinine [Mass/Vol] 0.85 mg/dL 0.55-1.02 [facility] Comment on above: The validity of the calculated GFR & GFRAA in patients over 70 years has not been determined. Clinical correlation is essential. Serum or plasma urea nitroge n measurement (mass/volume)Ordered By: Cole Fast on 03-19-2024 Urea nitrogen [Mass/Vol] 25 mg/dL High 7-18 [facility] Sodium levelOrdered By: Debr a Fast on 03-19-2024 Sodium [Moles/Vol] 142 mmol/L 136-145 [facility] Total proteinOrdered By: Hamida ra Fast on 03-19-2024 Protein [Mass/Vol] 7.2 g/dL 6.4-8.2 [facility] Vitamin D,25 Hydroxyon 03-19 Vitamin D 25-OH 63.8 ng/mL Normal [facility] Comment on above: Result Comment: Dina min D 25(OH) Status Range Deficiency <20 ng/mL (50nmol/L) Insufficiency 20 - 30 ng/mL (50 - 75 nmol/L) Sufficiency 30 - 100 ng/mL (75 - 250 nmol/L) Toxicity >100 ng/mL (>250 nmol/L) Performed By: #### L 100.0100, L501.9985, L506.1000, L500.4050 #### [facility] [address] [place], [address] White blood cell (WBC) count Ordered By: Cole on 03-19-2024 WBC (Bld) [#/Vol] 5.3 10*3/uL Normal 4.4-11.0 [facility] Comment on above: Performed By: #### L 100.0100, L501.9985, L506.1000, L500.4050 #### [facility] [address] [place], [address] Thyroidon 01-11-[address] [facility] Imaging Services [address] [place] [address] Thyroid MR#: [id number] Acct: [id number] Name: BREANNA PURCELL Rep #: [id number] : 1940 F 83 From: James paul DO PCP: Dr. Cole Grover DO Status: REG CLI Study: Thyroid Date of Exam: 01/11/24 Exam# [id number] Ordering Dr: Cole Grover DO [id number] EXAM: US SOFT TISSUES HEAD AND NECK, THYROID CLINICAL INDICATION: Thyroid (04790) -- Thyroid nodule TECHNIQUE: Greyscale and color doppler imaging was performed of the thyroid gland. COMPARISON: No relevant prior studies available. FINDINGS: LEFT THYROID LOBE: The left thyroid lobe measures 3.8 x 1.1 x 1.2 cm. On the left, there are a few thyroid cysts, the largest measuring 4 mm. Homogeneous echotexture with normal vascularity. RIGHT THYROID LOBE: The right thyroid lobe measures 3.8 x 1.1 x 1.3 cm. On the right, there are a few thyroid cysts, the largest measuring 4 mm. Homogeneous echotexture with normal vascularity. ISTHMUS: The thyroid isthmus measures 0.2 cm. No thyroid nodules are present. US/Thyroid IMPRESSION: Bilateral thyroid cysts. No solid thyroid nodule. TI-RADS points: 0. TI-RADS category: TR1. The cysts are benign and no FNA or follow-up is necessary. Electronically Signed: James Hunter DO at 12:09 EST , CC: Dr. Cole Grover DO School Librarian: Signed Normal [facility] SCRN MAMM (CAD)W/CHARLOTTE BILATo n 11-01-2023 SCRN MAMM (CAD)W/CHARLOTTE BILAT [facility] Imaging Services [address] [place] [id number] SCRN MAMM (CAD)W/CHARLOTTE BILAT MR#: [id number] Acct: [id number] Name: BREANNA PURCELL Rep #: [id number] : 1940 F 83 From: Graham nix MD PCP: Dr. Cole Grover DO Status: REG CL Study: SCRN MAMM (CAD)W/[place]OT[place] BILAT Date of Exam: 10/05 10/27 Exam# [id number] Ordering Dr: Cole Grover DO [id number] MAMMOGRAPHY - BILATERAL SCREENING REASON FOR EXAM: Female, 83 years old. Routine annual screening examination. PERTINENT HISTORY: Mother with breast cancer. TECHNIQUE: Digital bilateral breast charlotte (3D mammographic acquisition) in the CC and MLO projections. 2-D mediolateral oblique (MLO) and craniocaudad (CC) views of both breasts were obtained. CAD: Full Field Digital Mammography with Computer Added Detection was performed. COMPARISON: Comparison is made with prior study October 27, 2022 and October 08, 2021. FINDINGS: Breast Composition: The breasts are heterogeneously dense, which may obscure small masses. There are no dominant masses or suspicious calcifications. No other significant abnormalities are identified. There has been no significant change since the prior study. BI/SCRN MAMM (CAD)W/CHARLOTTE BILAT IMPRESSION: Stable bilateral screening mammogram. Yearly follow-up mammogram recommended. (A) ASSESSMENT CATEGORY: BIRADS Category 1: Negative. A letter regarding these results will be sent to the patient by the facility within 30 days. Approximately 10% of breast cancers are not detected by mammography. A normal mammogram should not delay biopsy of a clinically suspicious abnormality. [id number] Electronically Signed: Graham Rivera MD at 15:07 EDT Reading Location ID and State: [facility] / [place] , Service support , CC: Dr. Cole Grover, School Librarian: Signed Normal [facility] CBC W/Diff, Automatedon 09-03 Absolute Lymph 1.81 X10 3/uL Normal 0.83-4.51 [facility] Comment on above: Performed By: #### L 100.0100, L501.9985, L400.0001, L500.4050, L506.1000 #### [facility] [address] [place], [address] Absolute Neut 2.3 X10 3/uL Normal 2.0-7.7 [facility] Comment on above: Performed By: #### L 100.0100, L501.9985, L400.0001, L500.4050, L506.1000 #### [facility] [address] [place], [address] Basophils/100 WBC (Bld) 1.2 % High 0-1 [facility] Comment on above: Performed By: #### L 100.0100, L501.9985, L400.0001, L500.4050, L506.1000 #### [facility] [address] [place], [address] Eosinophils/100 WBC (Bld) 3.3 % Normal 0-5 [facility] Comment on above: Performed By: #### L 100.0100, L501.9985, L400.0001, L500.4050, L506.1000 #### [facility] [address] [place], [address] Erythrocyte distribution width (RBC) [Ratio] 13.2 % Normal 11.6-14.6 [facility] Comment on above: Performed By: #### L 100.0100, L501.9985, L400.0001, L500.4050, L506.1000 #### [facility] [address] [place], [address] Hematocrit (Bld) [Volume fraction] 40.0 % Normal 37-47 [facility] Comment on above: Performed By: #### L 100.0100, L501.9985, L400.0001, L500.4050, L506.1000 #### [facility] [address] [place], [address] Hemoglobin (Bld) [Mass/Vol] 13.1 g/dL Normal 12.0-15.0 [facility] Comment on above: Performed By: #### L 100.0100, L501.9985, L400.0001, L500.4050, L506.1000 #### [facility] [address] [place], [address] IG% 0.000 Normal 0.0-0.9 [facility] Comment on above: Result Comment: IG% - Immature Granulocytes (promyelocytes, myelocytes and metamyelocytes) > 1% indicates that a LEFT SHIFT is Present. Performed By: #### L 100.0100, L501.9985, L400.0001, L500.4050, L506.1000 #### [facility] [address] [place], [address] Lymphocytes/100 WBC (Bld) 37.1 % Normal 19-41 [facility] Comment on above: Performed By: #### L 100.0100, L501.9985, L400.0001, L500.4050, L506.1000 #### [facility] [address] [place], [address] MCH (RBC) [Entitic mass] 30.3 pg Normal 27.0-32.0 [facility] Comment on above: Performed By: #### L 100.0100, L501.9985, L400.0001, L500.4050, L506.1000 #### [facility] [address] [place], [address] MCHC (RBC) [Mass/Vol] 32.8 g/dL Normal 32-36 [facility] Comment on above: Performed By: #### L 100.0100, L501.9985, L400.0001, L500.4050, L506.1000 #### [facility] [address] [place], [address] MCV (RBC) [Entitic vol] 92.4 fL Normal 81-99 [facility] Comment on above: Performed By: #### L 100.0100, L501.9985, L400.0001, L500.4050, L506.1000 #### [facility] [address] [place], [address] Monocytes/100 WBC (Bld) 11.5 % High 0-10 [facility] Comment on above: Performed By: #### L 100.0100, L501.9985, L400.0001, L500.4050, L506.1000 #### [facility] [address] [place], [address] Neutrophils/100 WBC (Bld) 46.9 % Low 47-70 [facility] Comment on above: Performed By: #### L 100.0100, L501.9985, L400.0001, L500.4050, L506.1000 #### [facility] [address] [place], [address] Nucleated RBC (Bld) [#/Vol] 0 10*3/uL Normal 0-5 [facility] Comment on above: Performed By: #### L 100.0100, L501.9985, L400.0001, L500.4050, L506.1000 #### [facility] [address] [place], [address] Platelet mean volume (Bld) [Entitic vol] 9.9 fL Normal 6.2-12.0 [facility] Comment on above: Performed By: #### L 100.0100, L501.9985, L400.0001, L500.4050, L506.1000 #### [facility] [address] [place], [address] Platelets (Bld) [#/Vol] 195 10*3/uL Normal 150-450 [facility] Comment on above: Performed By: #### L 100.0100, L501.9985, L400.0001, L500.4050, L506.1000 #### [facility] [address] [place], [address] RBC (Bld) [#/Vol] 4.33 10*6/uL Normal 4.2-5.4 [facility] Comment on above: Performed By: #### L 100.0100, L501.9985, L400.0001, L500.4050, L506.1000 #### [facility] [address] [place], [address] RDW SD 44.6 fl High 35.1-43.9 [facility] Comment on above: Performed By: #### L 100.0100, L501.9985, L400.0001, L500.4050, L506.1000 #### [facility] [facility] [address] [place], [address] WBC (Bld) [#/Vol] 4.9 10*3/uL Normal 4.4-11.0 [facility] Comment on above: Performed By: #### L 100.0100, L501.9985, L400.0001, L500.4050, [id number] #### [facility] [address] [place], [address] Comprehensive Metabolic Prof ilon 09-13-2023 Albumin [Mass/Vol] 3.7 g/dL Normal 3.2-5.0 [facility] Comment on above: Order Comment: UA W/ MICRO Performed By: #### L 100.0100, L501.9985, L400.0001, L500.4050, [id number] #### [facility] [address] [place], [address] Albumin/Globulin [Mass ratio] 1.1 {ratio} Normal 0.9-2.4 [facility] Comment on above: Order Comment: UA W/ MICRO Performed By: #### L 100.0100, L501.9985, L400.0001, L500.4050, [id number] #### [facility] [address] [place], [address] ALK P 57 U/L Normal 45-117 [facility] Comment on above: Order Comment: UA W/ MICRO Performed By: #### L 100.0100, L501.9985, L400.0001, L500.4050, [id number] #### [facility] [address] [place], [address] ALT [Catalytic activity/Vol] 18 U/L Normal 13-56 [facility] Comment on above: Order Comment: UA W/ MICRO Performed By: #### L 100.0100, L501.9985, L400.0001, L500.4050, [id number] #### [facility] [address] [place], [address] AST [Catalytic activity/Vol] 25 U/L Normal 15-37 [facility] Comment on above: Order Comment: UA W/ MICRO Performed By: #### L 100.0100, L501.9985, L400.0001, L500.4050, L506.1000 #### [facility] [address] [place], [address] Bilirubin [Mass/Vol] 0.90 mg/dL Normal 0.20-1.00 [facility] Comment on above: Order Comment: UA W/ MICRO Result Comment: For patients on eltrombopag therapy, use of Dimension [place] TBIL is not recommended. Performed By: #### L 100.0100, L501.9985, L400.0001, L500.4050, L506.1000 #### [facility] [address] [place], [address] BUN/CRE 32.9 RATIO High 10-20 [facility] Comment on above: Order Comment: UA W/ MICRO Performed By: #### L 100.0100, L501.9985, L400.0001, L500.4050, L506.1000 #### [facility] [address] [place], [address] CA,Total 8.9 mg/dL Normal 8.5-10.1 [facility] Comment on above: Order Comment: UA W/ MICRO Performed By: #### L 100.0100, L501.9985, L400.0001, L500.4050, L506.1000 #### [facility] [address] [place], [address] Chloride [Moles/Vol] 105 mmol/L Normal 98-107 [facility] Comment on above: Order Comment: UA W/ MICRO Performed By: #### L 100.0100, L501.9985, L400.0001, L500.4050, L506.1000 #### [facility] [address] [place], [address] CO2 [Moles/Vol] 29.0 mmol/L Normal 21.0-32.0 [facility] Comment on above: Order Comment: UA W/ MICRO Performed By: #### L 100.0100, L501.9985, L400.0001, L500.4050, L506.1000 #### [facility] [address] [place], [address] Creatinine [Mass/Vol] 0.91 mg/dL Normal 0.55-1.02 [facility] Comment on above: Order Comment: UA W/ MICRO Result Comment: The validity of the calculated GFR GFRAA in patients over 70 years has not been determined. Clinical correlation is essential. Performed By: #### L 100.0100, L501.9985, L400.0001, L500.4050, L506.1000 #### [facility] [address] [place], [address] EST GFR - AA 76 mL/min Normal >60 [facility] Comment on above: Order Comment: UA W/ MICRO Result Comment: Afri can Syrian GFR Calc Performed By: #### L 100.0100, L501.9985, L400.0001, L500.4050, L506.1000 #### [facility] [address] [place], [address] GAP 3 Low 5-15 [facility] Comment on above: Order Comment: UA W/ MICRO Performed By: #### L 100.0100, L501.9985, L400.0001, L500.4050, L506.1000 #### [facility] [address] [place], [address] GFR/1.73 sq M.predicted among non-blacks MDRD (S/P/Bld) [Vol rate/Area] 63 mL/min/{1.73_m2} Normal >60 [facility] Comment on above: Order Comment: UA W/ MICRO Result Comment: Non- GFR Calc Performed By: #### L 100.0100, L501.9985, L400.0001, L500.4050, L506.1000 #### [facility] [address] [place], [address] Globulin (S) [Mass/Vol] 3.3 g/dL Normal 2.2-4.2 [facility] Comment on above: Order Comment: UA W/ MICRO Performed By: #### L 100.0100, L501.9985, L400.0001, L500.4050, L506.1000 #### [facility] [address] [place], [address] Glucose [Mass/Vol] 90 mg/dL Normal 74-106 [facility] Comment on above: Order Comment: UA W/ MICRO Performed By: #### L 100.0100, L501.9985, L400.0001, L500.4050, L506.1000 #### [facility] [address] [place], [address] Potassium [Moles/Vol] 4.1 mmol/L Normal 3.5-5.1 [facility] Comment on above: Order Comment: UA W/ MICRO Performed By: #### L 100.0100, L501.9985, L400.0001, L500.4050, L506.1000 #### [facility] [address] [place], [address] Sodium [Moles/Vol] 137 mmol/L Normal 136-145 [facility] Comment on above: Order Comment: UA W/ MICRO Performed By: #### L 100.0100, L501.9985, L400.0001, L500.4050, L506.1000 #### [facility] [address] [place], [address] T PROT 7.0 g/dL Normal 6.4-8.2 [facility] Comment on above: Order Comment: UA W/ MICRO Performed By: #### L 100.0100, L501.9985, L400.0001, L500.4050, L506.1000 #### [facility] [address] [place], [address] Urea nitrogen [Mass/Vol] 30 mg/dL High 7-18 [facility] Comment on above: Order Comment: UA W/ MICRO Performed By: #### L 100.0100, L501.9985, L400.0001, L500.4050, L506.1000 #### [facility] [address] [place], [address] Hemoglobin A1con 09-13-2023 HbA1c (Bld) [Mass fraction] 5.3 % Normal 3.8-5.6 [facility] Comment on above: Result Comment: Norm al < 5.7 % Prediabetic 5.7 - 6.4 % Diabetic >or= 6.5 % Please note range changes. Performed By: #### L 100.0100, L501.9985, L400.0001, L500.4050, L506.1000 #### [facility] [address] [place], [address] Urinalysis, Completeon 09-12 WBC 10-25 SEEN Normal 0-5 [facility] Comment on above: Order Comment: UA W/ MICRO Urine, Random Performed By: #### L 100.0100, L501.9985, L400.0001, L500.4050, L506.1000 #### [facility] [address] [place], [address] BACTERIA 0 SEEN Normal None Seen [facility] Comment on above: Order Comment: UA W/ MICRO Urine, Random Performed By: #### L 100.0100, L501.9985, L400.0001, L500.4050, L506.1000 #### [facility] [address] [place], [address] EPI,SQUAMOUS 0 SEEN Normal 5-10 [facility] Comment on above: Order Comment: UA W/ MICRO Urine, Random Performed By: #### L 100.0100, L501.9985, L400.0001, L500.4050, L506.1000 #### [facility] [address] [place], [address] Mucus Ql (Urine sed) 0 SEEN Normal [facility] Comment on above: Order Comment: UA W/ MICRO Urine, Random Performed By: #### L 100.0100, L501.9985, L400.0001, L500.4050, L506.1000 #### [facility] [address] [place], [address] RBC 0 SEEN Normal 0-5 [facility] Comment on above: Order Comment: UA W/ MICRO Urine, Random Performed By: #### L 100.0100, L501.9985, L400.0001, L500.4050, L506.1000 #### [facility] [address] [place], [address] Vitamin D,25 Hydroxyon 09-12 Vitamin D 25-OH 59.3 ng/mL Normal [facility] Comment on above: Result Comment: Dina min D 25(OH) Status Range Deficiency <20 ng/mL (50nmol/L) Insufficiency 20 - 30 ng/mL (50 - 75 nmol/L) Sufficiency 30 - 100 ng/mL (75 - 250 nmol/L) Toxicity >100 ng/mL (>250 nmol/L) Performed By: #### L 100.0100, L501.9985, L400.0001, L500.4050, L506.1000 #### [facility] [address] [place], [address] Absolute lymphocyte countOrd ered By: Cole Fast on 06-09-2023 Lymphocytes Auto (Unsp spec) [#/Vol] 2.13 10*3/uL 0.83-4.51 [facility] Automated lymphocyte count a s percentage of total leukocytesOrdered By: Cole Fast on 06-09-2023 Lymphocytes/100 WBC Auto (Unsp spec) 43.0 % 19-41 [facility] Basophil percentageOrdered B y: Cole Fast on 06-09-2023 Basophils/100 WBC (Bld) 1.2 % 0-1 [facility] Bilirubin [Mass/Vol] 0.60 mg/dL 0.20-1.00 [facility] Comment on above: For patients on eltr ombopag therapy, use of Dimension [place] TBIL is not recommended. Chloride [Moles/Vol] 111 mmol/L 98-107 [facility] Eosinophils/100 WBC (Bld) 3.8 % 0-5 [facility] Glucose [Mass/Vol] 94 mg/dL 74-106 [facility] Hemoglobin (Bld) [Mass/Vol] 12.9 g/dL 12.0-15.0 [facility] Monocytes/100 WBC (Bld) 9.5 % 0-10 [facility] Neutrophils (Bld) [#/Vol] 2.1 10*3/uL 2.0-7.7 [facility] Neutrophils/100 WBC (Bld) 42.5 % 47-70 [facility] Potassium [Moles/Vol] 4.3 mmol/L 3.5-5.1 [facility] Protein [Mass/Vol] 6.9 g/dL 6.4-8.2 [facility] Sodium [Moles/Vol] 143 mmol/L 136-145 [facility] WBC (Bld) [#/Vol] 5.0 10*3/uL 4.4-11.0 [facility] Determination of erythrocyte mean corpuscular volume (MCV)Ordered By: Cole on 06-09-2023 MCV (RBC) [Entitic vol] 93.0 fL 81-99 [facility] Erythrocyte distribution wid th ratioOrdered By: Cole on 06-09-2023 Erythrocyte distribution width (RBC) [Ratio] 13.4 % 11.6-14.6 [facility] Erythrocyte distribution wid th standard deviationOrdered By: Cole on 06-09-2023 Erythrocyte distribution width (RBC) [Entitic vol] 45.9 fL 35.1-43.9 [facility] Hematocrit Auto (Bld) [Volum e fraction]Ordered By: Cole on 06-09-2023 Hematocrit (Bld) [Volume fraction] 40.1 % 37-47 [facility] Immature granulocytes/100 WB C Auto (Bld)Ordered By: Cole on 06-09-2023 Immature granulocytes/100 WBC (Bld) 0.000 % 0.0-0.9 [facility] Comment on above: IG% - Immature Granu locytes (promyelocytes, myelocytes and metamyelocytes) > 1% indicates that a LEFT SHIFT is Present. Laboratory - Chemistry and C hemistry - challengeOrdered By: Cole on 06-09-2023 Albumin/Globulin [Mass ratio] 1.1 {ratio} 0.9-2.4 [facility] ALP [Catalytic activity/Vol] 55 U/L 45-117 [facility] ALT [Catalytic activity/Vol] 20 U/L 13-56 [facility] CO2 [Moles/Vol] 29.0 mmol/L 21.0-32.0 [facility] Globulin (S) [Mass/Vol] 3.3 g/dL 2.2-4.2 [facility] Urea nitrogen/Creatinine [Mass ratio] 37.5 mg/mg 10-20 [facility] - Hematology and Cell countsOrdered By: Cole on 06-09-2023 MCH (RBC) [Entitic mass] 29.9 pg 27.0-32.0 [facility] MCHC (RBC) [Mass/Vol] 32.2 g/dL 32-36 [facility] Nucleated RBC/100 WBC (Bld) [Ratio] 0 % 0-5 [facility] Platelet mean volume (Bld) [Entitic vol] 10.2 fL 6.2-12.0 [facility] Platelets (Bld) [#/Vol] 188 10*3/uL 150-450 [facility] No Panel InformationOrdered By: Cole Fast on 06-09-2023 Estimated GFR (MDRD) Amer 85 mL/min >60 [facility] Comment on above: GFR Calc Estimated GFR (MDRD) Non-Af Amer 70 mL/min >60 [facility] Comment on above: Non- GFR Calc Urine Microalbumin/Creatini ne Ratio 17.3 mg/g CRE <30 [facility] RBC Auto (Bld) [#/Vol]Ordere d By: Cole Fast on 06-09-2023 RBC (Bld) [#/Vol] 4.31 10*6/uL 4.2-5.4 [facility] Serum or plasma calcium franklin urement (mass/volume)Ordered By: Cole Fast on 06-09-2023 Calcium [Mass/Vol] 9.1 mg/dL 8.5-10.1 [facility] Serum or plasma creatinine m easurement (mass/volume)Ordered By: Cole Fast on 06-09-2023 Creatinine [Mass/Vol] 0.83 mg/dL 0.55-1.02 [facility] Comment on above: The validity of the calculated GFR & GFRAA in patients over 70 years has not been determined. Clinical correlation is essential. Serum or plasma urea nitroge n measurement (mass/volume)Ordered By: [facility] on 06-09-2023 Urea nitrogen [Mass/Vol] 31 mg/dL 7-18 [facility] Thin prep Papanicolaou smear with manual screeningOrdered By: [facility] on 06-09-2023 Thin prep Papanicolaou smear with manual screening 3.6 g/dL 3.2-5.0 [facility] Thin prep Papanicolaou smear with manual screening 26 U/L 15-37 [facility] Thin prep Papanicolaou smear with manual screening 3 5-15 [facility] Thin prep Papanicolaou smear with manual screening 20.4 mg/L NO RANGE EST. [facility] Urine creatinine measurement (mass/volume)Ordered By: [facility] on 06-09-2023 Creatinine (U) [Mass/Vol] 118.00 mg/dL NO RANGE EST. [facility] Whole blood hemoglobin A1c/t otal hemoglobin ratio (mass fraction)Ordered By: [facility] on 06-09-2023 HbA1c (Bld) [Mass fraction] 5.4 % 3.8-5.6 [facility] Comment on above: Normal < 5.7 % Predi abetic 5.7 - 6.4 % Diabetic >or= 6.5 % Please note range changes. Absolute lymphocyte countOrd ered By: [facility] on 09-02-2022 Lymphocytes Auto (Unsp spec) [#/Vol] 1.85 10*3/uL 0.83-4.51 [facility] Basophil percentageOrdered B y: [facility] on 09-02-2022 Basophils/100 WBC (Bld) 1.3 % 0-1 [facility] Bilirubin [Mass/Vol] 0.60 mg/dL 0.20-1.00 [facility] Comment on above: For patients on eltr ombopag therapy, use of Dimension [place] TBIL is not recommended. Chloride [Moles/Vol] 109 mmol/L 98-107 [facility] Cholesterol [Mass/Vol] 181 mg/dL <200 [facility] Comment on above: <200 mg/dL Desirable 200-240 mg/dL Borderline >240 mg/dL High Risk Eosinophils/100 WBC (Bld) 4.1 % 0-5 [facility] Glucose [Mass/Vol] 82 mg/dL 74-106 [facility] Neutrophils (Bld) [#/Vol] 2.0 10*3/uL 2.0-7.7 [facility] Neutrophils/100 WBC (Bld) 43.2 % 47-70 [facility] Potassium [Moles/Vol] 4.3 mmol/L 3.5-5.1 [facility] Protein [Mass/Vol] 6.9 g/dL 6.4-8.2 [facility] Sodium [Moles/Vol] 141 mmol/L 136-145 [facility] Triglyceride [Mass/Vol] 71 mg/dL <199 [facility] Comment on above: The drugs N-Acetylcy steine and Metamizole may falsely depress this assay.Serum Triglycerides Reference Interval Normal <150 mg/dL Borderline high 150 - 199 mg/dL High 200 - 499 mg/dL Very High > or = 500 mg/dL WBC (Bld) [#/Vol] 4.6 10*3/uL 4.4-11.0 [facility] Blood erythrocytes count (nu mber/volume)Ordered By: Cole Fast on 09-02-2022 RBC (Bld) [#/Vol] 4.32 10*6/uL 4.2-5.4 [facility] Blood hemoglobin measurement (mass/volume)Ordered By: Cole Fast on 09-02-2022 Hemoglobin (Bld) [Mass/Vol] 13.1 g/dL 12.0-15.0 [facility] Blood lymphocytes/100 leukoc ytesOrdered By: Cole Fast on 09-02-2022 Lymphocytes/100 WBC (Bld) 40.0 % 19-41 [facility] Blood monocytes/100 leukocyt esOrdered By: Cole Fast on 09-02-2022 Monocytes/100 WBC (Bld) 11.0 % 0-10 [facility] Blood platelet mean volumeOr dered By: Cole Fast on 09-02-2022 Platelet mean volume (Bld) [Entitic vol] 10.5 fL 6.2-12.0 [facility] Determination of erythrocyte mean corpuscular volume (MCV)Ordered By: Cole Fast on 09-02-2022 MCV (RBC) [Entitic vol] 94.4 fL 81-99 [facility] Hematocrit Auto (Bld) [Volum e fraction]Ordered By: [facility] on 09-02-2022 Hematocrit (Bld) [Volume fraction] 40.8 % 37-47 [facility] - Chemistry and C hemistry - challengeOrdered By: [facility] on 09-02-2022 ALP [Catalytic activity/Vol] 56 U/L 45-117 [facility] ALT [Catalytic activity/Vol] 19 U/L 13-56 [facility] CO2 [Moles/Vol] 29.0 mmol/L 21.0-32.0 [facility] Globulin (S) [Mass/Vol] 3.4 g/dL 2.2-4.2 [facility] Urea nitrogen/Creatinine [Mass ratio] 32.3 mg/mg 10-20 [facility] - Hematology and Cell countsOrdered By: [facility] on 09-02-2022 Erythrocyte distribution width (RBC) [Entitic vol] 45.5 fL 35.1-43.9 [facility] Erythrocyte distribution width (RBC) [Ratio] 13.2 % 11.6-14.6 [facility] Immature granulocytes/100 WBC (Bld) 0.400 % 0.0-0.9 [facility] Comment on above: IG% - Immature Granu locytes (promyelocytes, myelocytes and metamyelocytes) > 1% indicates that a LEFT SHIFT is Present. MCH (RBC) [Entitic mass] 30.3 pg 27.0-32.0 [facility] Nucleated RBC/100 WBC (Bld) [Ratio] 0 % 0-5 [facility] MCHC Auto (RBC) [Mass/Vol]Or dered By: [facility] on 09-02-2022 MCHC (RBC) [Mass/Vol] 32.1 g/dL 32-36 [facility] No Panel InformationOrdered By: [facility] on 09-02-2022 Estimated GFR (MDRD) Amer 92 mL/min >60 [facility] Comment on above: GFR Calc Estimated GFR (MDRD) Non-Af Amer 76 mL/min >60 [facility] Comment on above: Non- GFR Calc Urine Microalbumin/Creatini ne Ratio 11.4 mg/g CRE <30 [facility] Platelets bldOrdered By: Hamida Grover on 09-02-2022 Platelets (Bld) [#/Vol] 212 10*3/uL 150-450 [facility] Serum or plasma albumin franklin urement (mass/volume)Ordered By: Cole on 09-02-2022 Albumin [Mass/Vol] 3.5 g/dL 3.2-5.0 [facility] Serum or plasma albumin/glob ulin mass ratioOrdered By: Cole on 09-02-2022 Albumin/Globulin [Mass ratio] 1.0 {ratio} 0.9-2.4 [facility] Serum or plasma calcium franklin urement (mass/volume)Ordered By: Cole on 09-02-2022 Calcium [Mass/Vol] 8.7 mg/dL 8.5-10.1 [facility] Serum or plasma cholesterol in HDL measurement (mass/volume)Ordered By: Cole on 09-02-2022 Cholesterol in HDL [Mass/Vol] 103 mg/dL >40 [facility] Comment on above: The drugs N-Acetylcy steine and Metamizole may falsely depress this assay. Reference Range HDL <40 mg/dL Low HDL Cholesterol HDL >or= 60 mg/dL High HDL Cholesterol Serum or plasma cholesterol in VLDL measurement (mass/volume)Ordered By: Cole on 09-02-2022 Cholesterol in VLDL [Mass/Vol] 14 mg/dL 5-40 [facility] Serum or plasma creatinine m easurement (mass/volume)Ordered By: Cole on 09-02-2022 Creatinine [Mass/Vol] 0.78 mg/dL 0.55-1.02 [facility] Comment on above: The validity of the calculated GFR & GFRAA in patients over 70 years has not been determined. Clinical correlation is essential. Serum or plasma low density lipoprotein (LDL) cholesterol measurement (mass/volume)Ordered By: Cole on 09-02-2022 Cholesterol in LDL [Mass/Vol] 64 mg/dL 0-130 [facility] Serum or plasma urea nitroge n measurement (mass/volume)Ordered By: Cole on 09-02-2022 Urea nitrogen [Mass/Vol] 25 mg/dL 7-18 [facility] Thin prep Papanicolaou smear with manual screeningOrdered By: Cole Grover on 09-02-2022 Thin prep Papanicolaou smear with manual screening 26 U/L 15-37 [facility] Thin prep Papanicolaou smear with manual screening 3 5-15 [facility] Thin prep Papanicolaou smear with manual screening 5.7 mg/L NO RANGE EST. [facility] Urine creatinine measurement (mass/volume)Ordered By: Cole Grover on 09-02-2022 Creatinine (U) [Mass/Vol] 50.10 mg/dL NO RANGE EST. [facility] Whole blood hemoglobin A1c/t otal hemoglobin ratio (mass fraction)Ordered By: Cole Grover on 09-02-2022 HbA1c (Bld) [Mass fraction] 5.3 % 3.8-5.6 [facility] Comment on above: Normal < 5.7 % Predi abetic 5.7 - 6.4 % Diabetic >or= 6.5 % Please note range changes. Absolute lymphocyte countOrd ered By: Dr. Grover on 05-24-2022 Lymphocytes Auto (Unsp spec) [#/Vol] 2.04 10*3/uL 0.83-4.51 [facility] Basophil percentageOrdered B y: Dr. Grover on 05-24-2022 Basophils/100 WBC (Bld) 1.1 % 0-1 [facility] Bilirubin [Mass/Vol] 0.60 mg/dL 0.20-1.00 [facility] Comment on above: For patients on eltr ombopag therapy, use of Dimension [place] TBIL is not recommended. Chloride [Moles/Vol] 109 mmol/L 98-107 [facility] Cholesterol [Mass/Vol] 198 mg/dL <200 [facility] Comment on above: <200 mg/dL Desirable 200-240 mg/dL Borderline >240 mg/dL High Risk Eosinophils/100 WBC (Bld) 3.6 % 0-5 [facility] Glucose [Mass/Vol] 96 mg/dL 74-106 [facility] Neutrophils (Bld) [#/Vol] 2.5 10*3/uL 2.0-7.7 [facility] Neutrophils/100 WBC (Bld) 47.2 % 47-70 [facility] Potassium [Moles/Vol] 4.2 mmol/L 3.5-5.1 [facility] Protein [Mass/Vol] 6.9 g/dL 6.4-8.2 [facility] Sodium [Moles/Vol] 143 mmol/L 136-145 [facility] Triglyceride [Mass/Vol] 45 mg/dL <199 [facility] Comment on above: The drugs N-Acetylcy steine and Metamizole may falsely depress this assay.Serum Triglycerides Reference Interval Normal <150 mg/dL Borderline high 150 - 199 mg/dL High 200 - 499 mg/dL Very High > or = 500 mg/dL WBC (Bld) [#/Vol] 5.3 10*3/uL 4.4-11.0 [facility] Blood erythrocytes count (nu mber/volume)Ordered By: Dr. Grover on 05-24-2022 RBC (Bld) [#/Vol] 4.40 10*6/uL 4.2-5.4 [facility] Blood hemoglobin measurement (mass/volume)Ordered By: Dr. Grover on 05-24-2022 Hemoglobin (Bld) [Mass/Vol] 13.3 g/dL 12.0-15.0 [facility] Blood lymphocytes/100 leukoc ytesOrdered By: Dr. Grover on 05-24-2022 Lymphocytes/100 WBC (Bld) 38.6 % 19-41 [facility] Blood monocytes/100 leukocyt esOrdered By: Dr. Grover on 05-24-2022 Monocytes/100 WBC (Bld) 9.3 % 0-10 [facility] Blood platelet mean volumeOr dered By: Dr. Grover on 05-24-2022 Platelet mean volume (Bld) [Entitic vol] 10.3 fL 6.2-12.0 [facility] Determination of erythrocyte mean corpuscular volume (MCV)Ordered By: Dr. Grover on 05-24-2022 MCV (RBC) [Entitic vol] 94.1 fL 81-99 [facility] Hematocrit Auto (Bld) [Volum e fraction]Ordered By: Dr. Grover on 05-24-2022 Hematocrit (Bld) [Volume fraction] 41.4 % 37-47 [facility] - Chemistry and C hemistry - challengeOrdered By: Dr. Grover on 05-24-2022 ALP [Catalytic activity/Vol] 57 U/L 45-117 [facility] ALT [Catalytic activity/Vol] 22 U/L 13-56 [facility] CO2 [Moles/Vol] 29.0 mmol/L 21.0-32.0 [facility] Globulin (S) [Mass/Vol] 3.2 g/dL 2.2-4.2 [facility] Urea nitrogen/Creatinine [Mass ratio] 32.5 mg/mg 10-20 [facility] - Hematology and Cell countsOrdered By: Dr. Grover on 05-24-2022 Erythrocyte distribution width (RBC) [Entitic vol] 45.1 fL 35.1-43.9 [facility] Erythrocyte distribution width (RBC) [Ratio] 13.0 % 11.6-14.6 [facility] Immature granulocytes/100 WBC (Bld) 0.200 % 0.0-0.9 [facility] Comment on above: IG% - Immature Granu locytes (promyelocytes, myelocytes and metamyelocytes) > 1% indicates that a LEFT SHIFT is Present. MCH (RBC) [Entitic mass] 30.2 pg 27.0-32.0 [facility] Nucleated RBC/100 WBC (Bld) [Ratio] 0 % 0-5 [facility] MCHC Auto (RBC) [Mass/Vol]Or dered By: Dr. Grover on 05-24-2022 MCHC (RBC) [Mass/Vol] 32.1 g/dL 32-36 [facility] No Panel InformationOrdered By: Dr. Grover on 05-24-2022 Estimated GFR (MDRD) Amer 89 mL/min >60 [facility] Comment on above: GFR Calc Estimated GFR (MDRD) Non-Af Amer 73 mL/min >60 [facility] Comment on above: Non- GFR Calc Vitamin D 25-Hydroxy 51.3 ng/mL [facility] Comment on above: Vitamin D 25(OH) Sta tus Range Deficiency <20 ng/mL (50nmol/L) Insufficiency 20 - 30 ng/mL (50 - 75 nmol/L) Sufficiency 30 - 100 ng/mL (75 - 250 nmol/L) Toxicity >100 ng/mL (>250 nmol/L) Platelets bldOrdered By: Dr. Grover on 05-24-2022 Platelets (Bld) [#/Vol] 195 10*3/uL 150-450 [facility] Serum or plasma albumin franklin urement (mass/volume)Ordered By: Dr. Grover on 05-24-2022 Albumin [Mass/Vol] 3.7 g/dL 3.2-5.0 [facility] Serum or plasma albumin/glob ulin mass ratioOrdered By: Dr. Grover on 05-24-2022 Albumin/Globulin [Mass ratio] 1.2 {ratio} 0.9-2.4 [facility] Serum or plasma calcium franklin urement (mass/volume)Ordered By: Dr. Grover on 05-24-2022 Calcium [Mass/Vol] 9.0 mg/dL 8.5-10.1 [facility] Serum or plasma cholesterol in HDL measurement (mass/volume)Ordered By: Dr. Grover on 05-24-2022 Cholesterol in HDL [Mass/Vol] 112 mg/dL >40 [facility] Comment on above: The drugs N-Acetylcy steine and Metamizole may falsely depress this assay. Reference Range HDL <40 mg/dL Low HDL Cholesterol HDL >or= 60 mg/dL High HDL Cholesterol Serum or plasma cholesterol in VLDL measurement (mass/volume)Ordered By: Dr. Grover on 05-24-2022 Cholesterol in VLDL [Mass/Vol] 9 mg/dL 5-40 [facility] Serum or plasma creatinine m easurement (mass/volume)Ordered By: Dr. Grover on 05-24-2022 Creatinine [Mass/Vol] 0.80 mg/dL 0.55-1.02 [facility] Comment on above: The validity of the calculated GFR & GFRAA in patients over 70 years has not been determined. Clinical correlation is essential. Serum or plasma low density lipoprotein (LDL) cholesterol measurement (mass/volume)Ordered By: Dr. Grover on 05-24-2022 Cholesterol in LDL [Mass/Vol] 77 mg/dL 0-130 [facility] Serum or plasma urea nitroge n measurement (mass/volume)Ordered By: Dr. Grover on 05-24-2022 Urea nitrogen [Mass/Vol] 26 mg/dL 7-18 [facility] Thin prep Papanicolaou smear with manual screeningOrdered By: Dr. Grover on 05-24-2022 Thin prep Papanicolaou smear with manual screening 25 U/L 15-37 [facility] Thin prep Papanicolaou smear with manual screening 5 5-15 [facility] Whole blood hemoglobin A1c/t otal hemoglobin ratio (mass fraction)Ordered By: Dr. Grover on 05-24-2022 HbA1c (Bld) [Mass fraction] 5.6 % 3.8-5.6 [facility] Comment on above: Normal < 5.7 % Predi abetic 5.7 - 6.4 % Diabetic >or= 6.5 % Please note range changes. CBC with auto diff ([id number])Or dered By: Parts Assembler on 12-27-2021 Basophils (Bld) [#/Vol] 0.0 10*3/uL Normal 0.0-0.2 [facility]; [facility] Work Phone: Basophils/100 WBC (Bld) 1 % Normal [facility]; [facility] Work Phone: Eosinophils (Bld) [#/Vol] 0.2 10*3/uL Normal 0.0-0.4 [facility]; [facility] Work Phone: Eosinophils/100 WBC (Bld) 5 % Normal [facility]; [facility] Work Phone: Erythrocyte distribution width (RBC) [Ratio] 12.9 % Normal 11.7-15.4 [facility]; [facility] Work Phone: Hematocrit (Bld) [Volume fraction] 37.8 % Normal 34.0-46.6 [facility]; [facility] Work Phone: Hemoglobin (Bld) [Mass/Vol] 12.5 g/dL Normal 11.1-15.9 [facility]; [facility] Work Phone: Immature granulocytes (Bld) [#/Vol] 0.0 10*3/uL Normal 0.0-0.1 [facility]; [facility] Work Phone: Immature granulocytes/100 WBC (Bld) 0 % Normal [facility]; [facility] Work Phone: Lymphocytes (Bld) [#/Vol] 1.6 10*3/uL Normal 0.7-3.1 [facility]; [facility] Work Phone: Lymphocytes/100 WBC (Bld) 41 % Normal [facility]; [facility] Work Phone: MCH (RBC) [Entitic mass] 29.5 pg Normal 26.6-33.0 [facility]; [facility] Work Phone: MCHC (RBC) [Mass/Vol] 33.1 g/dL Normal 31.5-35.7 [facility]; [facility] Work Phone: MCV (RBC) [Entitic vol] 89 fL Normal 79-97 [facility]; [facility] Work Phone: Monocytes (Bld) [#/Vol] 0.4 10*3/uL Normal 0.1-0.9 [facility]; [facility] Work Phone: Monocytes/100 WBC (Bld) 10 % Normal [facility]; [facility] Work Phone: Neutrophils (Bld) [#/Vol] 1.7 10*3/uL Normal 1.4-7.0 [facility]; [facility] Work Phone: Neutrophils/100 WBC (Bld) 43 % Normal [facility]; [facility] Work Phone: Platelets (Bld) [#/Vol] 198 10*3/uL Normal 150-450 [facility]; [facility] Work Phone: RBC (Bld) [#/Vol] 4.24 10*6/uL Normal 3.77-5.28 [facility] e[facility]; [facility] Work Phone: WBC (Bld) [#/Vol] 3.9 10*3/uL Normal 3.4-10.8 [facility]; [facility] Work Phone: METABOLIC PANEL, COMPREHENSI VE ([id number])Ordered By: Parts Assembler on 12-27-2021 Albumin [Mass/Vol] 4.2 g/dL Normal 3.7-4.7 [facility]; [facility] Work Phone: Albumin/Globulin [Mass ratio] 2.1 {ratio} Normal 1.2-2.2 [facility]; [facility] Work Phone: ALP [Catalytic activity/Vol] 56 U/L Normal 44-121 [facility]; [facility] Work Phone: ALT [Catalytic activity/Vol] 12 U/L Normal 0-32 [facility]; [facility] Work Phone: AST [Catalytic activity/Vol] 26 U/L Normal 0-40 [facility]; [facility] Work Phone: Bilirubin [Mass/Vol] 0.6 mg/dL Normal 0.0-1.2 [facility]; [facility] Work Phone: Calcium [Mass/Vol] 9.0 mg/dL Normal 8.7-10.3 [facility]; [facility] Work Phone: Chloride [Moles/Vol] 106 mmol/L Normal 96-106 [facility]; [facility] Work Phone: CO2 [Moles/Vol] 23 mmol/L Normal 20-29 [facility]; [facility] Work Phone: Creatinine [Mass/Vol] 0.78 mg/dL Normal 0.57-1.00 [facility]; [facility] Work Phone: Globulin (S) [Mass/Vol] 2.0 g/dL Normal 1.5-4.5 [facility]; [facility] Work Phone: Glucose [Mass/Vol] 88 mg/dL Normal 70-99 [facility]; [facility] Work Phone: Potassium [Moles/Vol] 4.5 mmol/L Normal 3.5-5.2 [facility]; [facility] Work Phone: Protein [Mass/Vol] 6.2 g/dL Normal 6.0-8.5 [facility]; [facility] Work Phone: Sodium [Moles/Vol] 141 mmol/L Normal 134-144 [facility]; [facility] Work Phone: Urea nitrogen [Mass/Vol] 28 mg/dL Abnormal 8-27 [facility]; [facility] Work Phone: Urea nitrogen/Creatinine [Mass ratio] 36 mg/mg Abnormal 12-28 [facility]; [facility] Work Phone: METABOLIC PANEL, COMPREHENSIVE ([id number]) 77 mL/min/1.73 Normal [facility]; [facility] Work Phone: MICROALBUMINOrdered By: Syst em Plaster Model And Mold Maker on 12-27-2021 Albumin DL <= 20 mg/L (U) [Mass/Vol] 10.9 ug/mL Normal [facility]; [facility] Work Phone: Albumin/Creatinine (U) [Mass ratio] 10 {mg/g_creat} Normal 0-29 [facility]; [facility] Work Phone: Creatinine (U) [Mass/Vol] 109.7 mg/dL Normal [facility]; [facility] Work Phone: URINALYSIS, W/ MICRO ([id number]) Ordered By: Parts Assembler on 12-27-2021 Appearance (U) Clear Normal [facility]; [facility] Work Phone: Bilirubin Ql (U) Negative Normal Compre[facility]; [facility] Work Phone: Color (U) Yellow Normal [facility]; [facility] Work Phone: Glucose Ql (U) Negative Normal [facility]; [facility] Work Phone: Hemoglobin Ql (U) Negative Normal Compre[facility] ens[facility]; [facility] Work Phone: Ketones Ql (U) Negative Normal [facility]; [facility] Work Phone: Leukocyte esterase Test strip Ql (U) Negative Normal [facility]; [facility] Work Phone: Microscopic observation LM Nom (Urine sed) MICRON Normal [facility]; [facility] Work Phone: Microscopic observation LM Nom (Urine sed) See below: Normal [facility]; [facility] Work Phone: Nitrite [facility]l (U) [facility]; [facility] Work Phone: pH (U) 7.5 [pH] Normal 5.0-7.5 [facility]; [facility] Work Phone: Protein Ql (U) Negative [facility]; [facility] Work Phone: Specific gravity (U) [Rel density] 1.021 1 Normal 1.005-1.03 0 [facility]; [facility] Work Phone: Urobilinogen (U) [Mass/Vol] 0.2 mg/dL Normal 0.2-1.0 [facility]; [facility] Work Phone: CNOVon 12-21-2021 CNOV Office Visit ([facility] ) ----- BREANNA PURCELL ([id number]) 1940 F Date Time Provider Department 12/21/21 10:30 AM NESS TORIBIO [facility] During your visit today, we recorded the following information about you: Pulse Blood pressure Weight Height 54/minute 132/70 59.1 kg 1.626 m Ness Toribio PA-C 12/21/2021 10:48 AM Signed CHIEF COMPLAINT: Patient presents with: Recheck HPI Breanna Pierre Binh is a 81 year old female here today for Recheck. Was previously on Protonix every other day, Pepcid PRN for GERD. Off of both medications around 6 mos ago with no refractory symptoms. Managing sx with diet. Taking Benefiber PRN with relief in constipation. Denies bloody/black colored stools. Reports colonoscopy w/ [facility] in 2020 that was all normal no polyps. OV 01/2021 Breanna Purcell is a 80 year old female here today for Recheck (Heartburn, nausea, constipation). Protonix 40 mg every other day works well for GERD sx. Has not had to take Pepcid recently due to improvement in symptoms. Taking Benefiber 0.5 tsp daily with good relief in constipation. BMs are 1-2 per day, normal consistency, no blood. Current Outpatient Medications Medication Sig PROLIA 60 mg/mL Cholecalciferol, Vitamin D3, 25 mcg (1,000 unit) cap Take 1,000 Units by mouth once daily. famotidine (PEPCID) 20 mg tablet Take 1 tablet by mouth once daily as needed. (Patient not taking: Reported on 12/21/2021) ondansetron orally disintegrating (ZOFRAN ODT) 4 mg disintegrating tablet Take 1 tablet by mouth every 8 hours as needed. Use for nausea. (Patient not taking: Reported on 12/21/2021) MEDICATION, NON-DATABASE med for headach as needed (Patient not taking: Reported on 12/21/2021) No current facility-administered medications for this visit. ALLERGIES No Known Allergies Social History Tobacco Use Smoking status: Never Smokeless tobacco: Never Vaping Use Vaping Use: Never used Substance Use Topics Alcohol use: Yes Alcohol/week: 1.0 standard drink Types: 1 Glasses of wine per week Comment: rarely Drug use: Never PAST MEDICAL HISTORY Diagnosis Date Arthropathy, unspecified, site unspecified Asymptomatic varicose veins Atherosclerosis of other specified arteries Cardiac dysrhythmia, unspecified Disorder of bone and cartilage, unspecified Disorder of bone and cartilage, unspecified Diverticulosis of colon (without mention of hemorrhage) Diverticulosis of colon (without mention of hemorrhage) Family history of malignant neoplasm of gastrointestinal tract Headache(784.0) Hemorrhage of gastrointestinal tract, unspecified Other premature beats Pain in joint, pelvic region and thigh Sciatica Unspecified venous (peripheral) insufficiency Varicose veins of lower extremities with inflammation PAST SURGICAL HISTORY Procedure Laterality Date COLONOSCOPY 03/2020 COLONOSCOPY FLX DX W/COLLJ SPEC WHEN PFRMD 10/07/2002 Colonoscopy COLONOSCOPY FLX DX W/COLLJ SPEC WHEN PFRMD 04/11/2006 COLONOSCOPY FLX DX W/COLLJ SPEC WHEN PFRMD 04/08/2010 due 04/2014 COLONOSCOPY FLX DX W/COLLJ SPEC WHEN PFRMD 03/14/2013 Colonoscopy normal EGD 03/2020 EGD EUS 11/17/2011 Unremarkable hepatobiliary EUS. PAST SURGICAL HISTORY OF 03/06/1992 right inguninal hernia repair PAST SURGICAL HISTORY OF right leg varicose veins surgery FAMILY HISTORY Problem Relation Age of Onset Colon Cancer Father Colon Cancer Mother Breast Cancer Mother COPD Brother other (polyps) Brother REVIEW OF SYSTEMS Review of Systems Gastrointestinal: Gas All other systems reviewed and are negative. PHYSICAL EXAM BP 132/70 Pulse 54 Ht 5' 4 (1.63m) Wt 130 lb 3.2 oz (59.1kg) BMI 22.34 kg/(m2). Physical Exam Constitutional: General: She is not in acute distress. Appearance: Normal appearance. She is normal weight. She is not ill-appearing, toxic-appearing or diaphoretic. HENT: Head: Normocephalic and atraumatic. Nose: Nose normal. Eyes: General: No scleral icterus. Right eye: No discharge. Left eye: No discharge. Extraocular Movements: Extraocular movements intact. Conjunctiva/sclera: Conjunctivae normal. Pupils: Pupils are equal, round, and reactive to light. Cardiovascular: Rate and Rhythm: Normal rate and regular rhythm. Pulses: Normal pulses. Heart sounds: Normal heart sounds. No murmur heard. No friction rub. No gallop. Pulmonary: Effort: No respiratory distress. Breath sounds: Normal breath sounds. No stridor. No wheezing, rhonchi or rales. Chest: Chest wall: No tenderness. Abdominal: General: Abdomen is flat. Bowel sounds are normal. There is no distension. Palpations: Abdomen is soft. There is no mass. Tenderness: There is no abdominal tenderness. There is no right CVA tenderness, left CVA tenderness, guarding or rebound. Hernia: No hernia is present. Musculoskeletal: General: No (more content not included)... Normal [facility] Absolute lymphocyte counton 09-02-2021 Lymphocytes Auto (Unsp spec) [#/Vol] 1.66 10*3/uL 0.83-4.51 [facility] Work Phone: Basophil percentageon 2021 Basophils/100 WBC (Bld) 1.2 % 0-1 [facility] Work Phone: Bilirubin [Mass/Vol] 0.50 mg/dL 0.20-1.00 [facility] Work Phone: Comment on above: For patients on eltr ombopag therapy, use of Dimension [place] TBIL is not recommended. Chloride [Moles/Vol] 110 mmol/L 98-107 [facility] Work Phone: Eosinophils/100 WBC (Bld) 4.7 % 0-5 [facility] Work Phone: Glucose [Mass/Vol] 92 mg/dL 74-106 [facility] Work Phone: Neutrophils (Bld) [#/Vol] 1.9 10*3/uL 2.0-7.7 [facility] Work Phone: Neutrophils/100 WBC (Bld) 44.9 % 47-70 [facility] Work Phone: Potassium [Moles/Vol] 4.3 mmol/L 3.5-5.1 [facility] Work Phone: Protein [Mass/Vol] 6.8 g/dL 6.4-8.2 [facility] Work Phone: Sodium [Moles/Vol] 141 mmol/L 136-145 [facility] Work Phone: WBC (Bld) [#/Vol] 4.3 10*3/uL 4.4-11.0 [facility] Work Phone: Blood erythrocytes count (nu mber/volume)on 09-02-2021 RBC (Bld) [#/Vol] 4.35 10*6/uL 4.2-5.4 [facility] Work Phone: Blood hemoglobin measurement (mass/volume)on 09-02-2021 Hemoglobin (Bld) [Mass/Vol] 13.1 g/dL 12.0-15.0 [facility] Work Phone: Blood lymphocytes/100 leukoc yteson 09-02-2021 Lymphocytes/100 WBC (Bld) 38.9 % 19-41 [facility] Work Phone: Blood monocytes/100 leukocyt eson 09-02-2021 Monocytes/100 WBC (Bld) 10.1 % 0-10 [facility] Work Phone: Blood platelet mean volumeon 09-02-2021 Platelet mean volume (Bld) [Entitic vol] 10.0 fL 6.2-12.0 [facility] Work Phone: Determination of erythrocyte mean corpuscular volume (MCV)on 09-02-2021 MCV (RBC) [Entitic vol] 91.3 fL 81-99 [facility] Work Phone: Hematocrit Auto (Bld) [Volum e fraction]on 09-02-2021 Hematocrit (Bld) [Volume fraction] 39.7 % 37-47 [facility] Work Phone: Laboratory - Chemistry and C hemistry - challengeon 09-02-2021 ALP [Catalytic activity/Vol] 62 U/L 45-117 [facility] Work Phone: ALT [Catalytic activity/Vol] 20 U/L 13-56 [facility] Work Phone: CO2 [Moles/Vol] 27.0 mmol/L 21.0-32.0 [facility] Work Phone: Globulin (S) [Mass/Vol] 3.3 g/dL 2.2-4.2 [facility] Work Phone: Urea nitrogen/Creatinine [Mass ratio] 27.2 mg/mg 10-20 [facility] Work Phone: Laboratory - Hematology and Cell countson 09-02-2021 Erythrocyte distribution width (RBC) [Entitic vol] 44.4 fL 35.1-43.9 [facility] Work Phone: Erythrocyte distribution width (RBC) [Ratio] 13.2 % 11.6-14.6 [facility] Work Phone: Immature granulocytes/100 WBC (Bld) 0.200 % 0.0-0.9 [facility] Work Phone: Comment on above: IG% - Immature Granu locytes (promyelocytes, myelocytes and metamyelocytes) > 1% indicates that a LEFT SHIFT is Present. MCH (RBC) [Entitic mass] 30.1 pg 27.0-32.0 [facility] Work Phone: Nucleated RBC/100 WBC (Bld) [Ratio] 0 % 0-5 [facility] Work Phone: MCHC Auto (RBC) [Mass/Vol]on 09-02-2021 MCHC (RBC) [Mass/Vol] 33.0 g/dL 32-36 [facility] Work Phone: No Panel Informationon 09-02 Estimated GFR (MDRD) Amer 88 mL/min >60 [facility] Work Phone: Comment on above: GFR Calc Estimated GFR (MDRD) Non-Af Amer 73 mL/min >60 [facility] Work Phone: Comment on above: Non- GFR Calc Thyroid Stimulating Hormone (TSH) 3.51 uIU/mL 0.358-3.74 [facility] Work Phone: Vitamin D 25-Hydroxy 35.2 ng/mL [facility] Work Phone: Comment on above: Vitamin D 25(OH) Sta tus Range Deficiency <20 ng/mL (50nmol/L) Insufficiency 20 - 30 ng/mL (50 - 75 nmol/L) Sufficiency 30 - 100 ng/mL (75 - 250 nmol/L) Toxicity >100 ng/mL (>250 nmol/L) Platelets bldon 09-02-2021 Platelets (Bld) [#/Vol] 200 10*3/uL 150-450 [facility] Work Phone: Serum or plasma albumin franklin urement (mass/volume)on 09-02-2021 Albumin [Mass/Vol] 3.5 g/dL 3.2-5.0 [facility] Work Phone: Serum or plasma albumin/glob ulin mass ratioon 09-02-2021 Albumin/Globulin [Mass ratio] 1.1 {ratio} 0.9-2.4 [facility] Work Phone: Serum or plasma calcium franklin urement (mass/volume)on 09-02-2021 Calcium [Mass/Vol] 8.4 mg/dL 8.5-10.1 [facility] Work Phone: Serum or plasma creatinine m easurement (mass/volume)on 09-02-2021 Creatinine [Mass/Vol] 0.81 mg/dL 0.55-1.02 [facility] Work Phone: Comment on above: The validity of the calculated GFR & GFRAA in patients over 70 years has not been determined. Clinical correlation is essential. Serum or plasma urea nitroge n measurement (mass/volume)on 09-02-2021 Urea nitrogen [Mass/Vol] 22 mg/dL 7-18 [facility] Work Phone: Thin prep Papanicolaou smear with manual screeningon 09-02-2021 Thin prep Papanicolaou smear with manual screening 30 U/L 15-37 [facility] Work Phone: Thin prep Papanicolaou smear with manual screening 4 5-15 [facility] Work Phone: Whole blood hemoglobin A1c/t otal hemoglobin ratio (mass fraction)on 09-02-2021 HbA1c (Bld) [Mass fraction] 5.5 % 3.8-5.6 [facility] Work Phone: Comment on above: Normal < 5.7 % Predi abetic 5.7 - 6.4 % Diabetic >or= 6.5 % Please note range changes. Absolute lymphocyte counton 05-17-2021 Lymphocytes Auto (Unsp spec) [#/Vol] 1.88 10*3/uL 0.83-4.51 [facility] Work Phone: Basophil percentageon 2021 Basophils/100 WBC (Bld) 1.1 % 0-1 [facility] Work Phone: Bilirubin [Mass/Vol] 0.60 mg/dL 0.20-1.00 [facility] Work Phone: Comment on above: For patients on eltr ombopag therapy, use of Dimension [place] TBIL is not recommended. Chloride [Moles/Vol] 106 mmol/L 98-107 [facility] Work Phone: Cholesterol [Mass/Vol] 182 mg/dL <200 [facility] Work Phone: Comment on above: <200 mg/dL Desirable 200-240 mg/dL Borderline >240 mg/dL High Risk Eosinophils/100 WBC (Bld) 4.1 % 0-5 [facility] Work Phone: Glucose [Mass/Vol] 87 mg/dL 74-106 [facility] Work Phone: Neutrophils (Bld) [#/Vol] 1.9 10*3/uL 2.0-7.7 [facility] Work Phone: Neutrophils/100 WBC (Bld) 41.7 % 47-70 [facility] Work Phone: Potassium [Moles/Vol] 4.0 mmol/L 3.5-5.1 [facility] Work Phone: Protein [Mass/Vol] 7.0 g/dL 6.4-8.2 [facility] Work Phone: Sodium [Moles/Vol] 141 mmol/L 136-145 [facility] Work Phone: Triglyceride [Mass/Vol] 38 mg/dL <199 [facility] Work Phone: Comment on above: The drugs N-Acetylcy steine and Metamizole may falsely depress this assay.Serum Triglycerides Reference Interval Normal <150 mg/dL Borderline high 150 - 199 mg/dL High 200 - 499 mg/dL Very High > or = 500 mg/dL WBC (Bld) [#/Vol] 4.4 10*3/uL 4.4-11.0 [facility] Work Phone: Blood erythrocytes count (nu mber/volume)on 05-17-2021 RBC (Bld) [#/Vol] 4.40 10*6/uL 4.2-5.4 [facility] Work Phone: Blood hemoglobin measurement (mass/volume)on 05-17-2021 Hemoglobin (Bld) [Mass/Vol] 13.3 g/dL 12.0-15.0 [facility] Work Phone: Blood lymphocytes/100 leukoc yteson 05-17-2021 Lymphocytes/100 WBC (Bld) 42.3 % 19-41 [facility] Work Phone: Blood monocytes/100 leukocyt eson 05-17-2021 Monocytes/100 WBC (Bld) 10.6 % 0-10 [facility] Work Phone: Blood platelet mean volumeon 05-17-2021 Platelet mean volume (Bld) [Entitic vol] 10.1 fL 6.2-12.0 [facility] Work Phone: Determination of erythrocyte mean corpuscular volume (MCV)on 05-17-2021 MCV (RBC) [Entitic vol] 92.0 fL 81-99 [facility] Work Phone: Hematocrit Auto (Bld) [Volum e fraction]on 05-17-2021 Hematocrit (Bld) [Volume fraction] 40.5 % 37-47 [facility] Work Phone: Laboratory - Chemistry and C hemistry - challengeon 05-17-2021 ALP [Catalytic activity/Vol] 92 U/L 45-117 [facility] Work Phone: ALT [Catalytic activity/Vol] 24 U/L 13-56 [facility] Work Phone: CO2 [Moles/Vol] 31.0 mmol/L 21.0-32.0 [facility] Work Phone: Globulin (S) [Mass/Vol] 3.4 g/dL 2.2-4.2 [facility] Work Phone: Urea nitrogen/Creatinine [Mass ratio] 36.3 mg/mg 10-20 [facility] Work Phone: Laboratory - Hematology and Cell countson 05-17-2021 Erythrocyte distribution width (RBC) [Entitic vol] 44.3 fL 35.1-43.9 [facility] Work Phone: Erythrocyte distribution width (RBC) [Ratio] 13.1 % 11.6-14.6 [facility] Work Phone: Immature granulocytes/100 WBC (Bld) 0.200 % 0.0-0.9 [facility] Work Phone: Comment on above: IG% - Immature Granu locytes (promyelocytes, myelocytes and metamyelocytes) > 1% indicates that a LEFT SHIFT is Present. MCH (RBC) [Entitic mass] 30.2 pg 27.0-32.0 [facility] Work Phone: Nucleated RBC/100 WBC (Bld) [Ratio] 0 % 0-5 [facility] Work Phone: MCHC Auto (RBC) [Mass/Vol]on 05-17-2021 MCHC (RBC) [Mass/Vol] 32.8 g/dL 32-36 [facility] Work Phone: No Panel Informationon 05-17 Estimated GFR (MDRD) Amer 97 mL/min >60 [facility] Work Phone: Comment on above: GFR Calc Estimated GFR (MDRD) Non-Af Amer 80 mL/min >60 [facility] Work Phone: Comment on above: Non- GFR Calc Miscellaneous Test [facility] Comment on above: TEST RESULT LIMITSSA RS-CoV-2 Semi-Quant Total [id number] Semi-Quant Total Ab A, >2500.0 U/mL Negative <0.8Antibodies against the SARS-CoV-2 spike protein receptor binding domain (RBD) were detected. It is yet undetermined what level of antibody to SARS-CoV-2 spike protein correlates to immunity against developing symptomatic SARS-CoV-2 disease. Studies are underway to measure the quantitative levels of specific SARS-CoV-2 antibodiesfollowing vaccination. Such studies will provide valuable insights into the correlation between protection from vaccination and antibody levels.SARS-CoV-2 Ivan Ab Interp A, Positive [employer] [id number] SCommentsA: This test has not been FDA cleared or approved. This test has been authorized by FDA under an Emergency Use Authorization (EUA). This test is onlyauthorized for the duration of the declaration that circumstances exist justifying the authorization of emergency use of in vitro diagnostics for detectionand/or diagnosis of COVID-19 under Section 564(b)(1) of the Act, 21 U.S.C. 360bbb-3(b)(1), unless the authorization is terminated or revoked sooner. Thistest has been authorized only for detecting the presence of antibodies against SARS-CoV-2, not for any other viruses or pathogens. ___ TESTING PERFORMED AT [facility]. ORIGINAL REPORT ON FILE IN LAB CONTAINS ADDITIONAL TEST SITE INFORMATION. Platelets bldon 05-17-2021 Platelets (Bld) [#/Vol] 203 10*3/uL 150-450 [facility] Work Phone: Serum or plasma albumin franklin urement (mass/volume)on 05-17-2021 Albumin [Mass/Vol] 3.6 g/dL 3.2-5.0 [facility] Work Phone: Serum or plasma albumin/glob ulin mass ratioon 05-17-2021 Albumin/Globulin [Mass ratio] 1.1 {ratio} 0.9-2.4 [facility] Work Phone: Serum or plasma calcium franklin urement (mass/volume)on 05-17-2021 Calcium [Mass/Vol] 8.8 mg/dL 8.5-10.1 [facility] Work Phone: Serum or plasma cholesterol in HDL measurement (mass/volume)on 05-17-2021 Cholesterol in HDL [Mass/Vol] 111 mg/dL >40 [facility] Work Phone: Comment on above: The drugs N-Acetylcy steine and Metamizole may falsely depress this assay. Reference Range HDL <40 mg/dL Low HDL Cholesterol HDL >or= 60 mg/dL High HDL Cholesterol Serum or plasma cholesterol in VLDL measurement (mass/volume)on 05-17-2021 Cholesterol in VLDL [Mass/Vol] 8 mg/dL 5-40 [facility] Work Phone: Serum or plasma creatinine m easurement (mass/volume)on 05-17-2021 Creatinine [Mass/Vol] 0.74 mg/dL 0.55-1.02 [facility] Work Phone: Comment on above: The validity of the calculated GFR & GFRAA in patients over 70 years has not been determined. Clinical correlation is essential. Serum or plasma low density lipoprotein (LDL) cholesterol measurement (mass/volume)on 05-17-2021 Cholesterol in LDL [Mass/Vol] 63 mg/dL 0-130 [facility] Work Phone: Serum or plasma urea nitroge n measurement (mass/volume)on 05-17-2021 Urea nitrogen [Mass/Vol] 27 mg/dL 7-18 [facility] Work Phone: Thin prep Papanicolaou smear with manual screeningon 05-17-2021 Thin prep Papanicolaou smear with manual screening 25 U/L 15-37 [facility] Work Phone: Thin prep Papanicolaou smear with manual screening 4 5-15 [facility] Work Phone: Whole blood hemoglobin A1c/t otal hemoglobin ratio (mass fraction)on 05-17-2021 HbA1c (Bld) [Mass fraction] 5.5 % 3.8-5.6 [facility] Work Phone: Comment on above: Normal < 5.7 % Predi abetic 5.7 - 6.4 % Diabetic >or= 6.5 % Please note range changes. CNOVon 01-06-2021 CNOV Office Visit ([facility] ) ----- BREANNA PURCELL ([id number]) 1940 F Date Time Provider Department 01/06/21 9:45 AM NESS TORIBIO During your visit today, we recorded the following information about you: Pulse Blood pressure Weight Height 74/minute 130/72 54.9 kg 1.626 m Ness Toribio PA-C 01/06/2021 10:09 AM Signed CHIEF COMPLAINT: Patient presents with: Recheck: Heartburn, nausea, constipation HPI Breanna Purcell is a 80 year old female here today for Recheck (Heartburn, nausea, constipation). Protonix 40 mg every other day works well for GERD sx. Has not had to take Pepcid recently due to improvement in symptoms. Taking Benefiber 0.5 tsp daily with good relief in constipation. BMs are 1-2 per day, normal consistency, no blood. OV 07/06/2020 Breanna Purcell is a 79 year old female here today for Recheck (Heartburn, Abdominal pain and vomiting ). States on average Protonix 40 mg daily will work well for GERD sx. Had one episode of persistent N/V for one day around last month but states that it subsided the next day and is now feeling well. Taking Benefiber daily, BMs are 1-2 per day, soft, no blood. Current Outpatient Medications Medication Sig - Cholecalciferol, Vitamin D3, (VITAMIN D) 25 mcg (1,000 unit) cap Take 1,000 Units by mouth once daily. - famotidine (PEPCID) 20 mg tablet Take 1 tablet by mouth once daily as needed. - ondansetron orally disintegrating (ZOFRAN ODT) 4 mg disintegrating tablet Take 1 tablet by mouth every 8 hours as needed. Use for nausea. - pantoprazole DR (PROTONIX) 40 mg tablet Take 1 tablet by mouth once daily. 30 minutes before breakfast. - MEDICATION, NON-DATABASE med for headach as needed No current facility-administered medications for this visit. ALLERGIES No Known Allergies Social History Tobacco Use - Smoking status: Never Smoker - Smokeless tobacco: Never Used Vaping Use - Vaping Use: Never used Substance Use Topics - Alcohol use: Yes Alcohol/week: 1.0 standard drinks Types: 1 Glasses of wine per week Comment: rarely - Drug use: Never PAST MEDICAL HISTORY Diagnosis Date - Arthropathy, unspecified, site unspecified - Asymptomatic varicose veins - Atherosclerosis of other specified arteries - Cardiac dysrhythmia, unspecified - Disorder of bone and cartilage, unspecified - Disorder of bone and cartilage, unspecified - Diverticulosis of colon (without mention of hemorrhage) - Diverticulosis of colon (without mention of hemorrhage) - Family history of malignant neoplasm of gastrointestinal tract - Headache(784.0) - Hemorrhage of gastrointestinal tract, unspecified - Other premature beats - Pain in joint, pelvic region and thigh - Sciatica - Unspecified venous (peripheral) insufficiency - Varicose veins of lower extremities with inflammation PAST SURGICAL HISTORY Procedure Laterality Date - COLONOSCOP W/ OR W/O [facility] SPEC 10/07/2002 Colonoscopy - COLONOSCOP W/ OR W/O [facility] SPEC 04/11/2006 - COLONOSCOP W/ OR W/O BRS SPEC 04/08/2010 due 04/2014 - COLONOSCOP W/ OR W/O BRS SPEC 03/14/2013 Colonoscopy normal - COLONOSCOPY 03/2020 - EGD 03/2020 - EGD EUS 11/17/2011 Unremarkable hepatobiliary EUS. - PAST SURGICAL HISTORY OF 03/06/1992 right inguninal hernia repair - PAST SURGICAL HISTORY OF right leg varicose veins surgery FAMILY HISTORY Problem Relation Age of Onset - Colon Cancer Father - Colon Cancer Mother - Breast Cancer Mother - COPD Brother - other (polyps) Brother REVIEW OF SYSTEMS Review of Systems All other systems reviewed and are negative. PHYSICAL EXAM BP 130/72 Pulse 74 Ht 5' 4 (1.63m) Wt 121 lb (54.9kg) BMI 20.76 kg/(m2). Physical Exam Constitutional: General: She is not in acute distress. Appearance: Normal appearance. She is normal weight. She is not ill-appearing, toxic-appearing or diaphoretic. HENT: Head: Normocephalic and atraumatic. Nose: Nose normal. Eyes: General: No scleral icterus. Right eye: No discharge. Left eye: No discharge. Extraocular Movements: Extraocular movements intact. Conjunctiva/sclera: Conjunctivae normal. Pupils: Pupils are equal, round, and reactive to light. Cardiovascular: Rate and Rhythm: Normal rate and regular rhythm. Pulses: Normal pulses. Heart sounds: Normal heart sounds. No murmur heard. No friction rub. No gallop. Pulmonary: Effort: No respiratory distress. Breath sounds: Normal breath sounds. No stridor. No wheezing, rhonchi or rales. Chest: Chest wall: No tenderness. Abdominal: General: Abdomen is flat. Bowel sounds are normal. There is no distension. Palpations: Abdomen is soft. There is no mass. Tenderness: There is no abdominal tenderness. There is no right CVA tenderness, left CVA tenderness, guarding or rebound. Hernia: No hernia is present. Musculoskeletal: General: Normal range of mot (more content not included)... Normal [facility] SARS-CoV-2 Semi-Quantitative Total Antibody, Ivan ([id number])Ordered By: Parts Assembler on 01-04-2021 SARS-CoV-2 Semi-Quantitative Total Antibody, Ivan ([id number]) >2500.0 Normal [facility]; [facility] Work Phone: SARS-CoV-2 Semi-Quantitative Total Antibody, Ivan ([id number]) Positive Normal [facility]; [facility] Work Phone: CBC W/AUTO DIFF WBC ([id number])O rdered By: Parts Assembler on 12-23-2020 Basophils (Bld) [#/Vol] 0.0 10*3/uL Normal 0.0-0.2 [facility]; [facility] Work Phone: Basophils/100 WBC (Bld) 1 % Normal [facility]; [facility] Work Phone: Eosinophils (Bld) [#/Vol] 0.1 10*3/uL Normal 0.0-0.4 [facility]; [facility] Work Phone: Eosinophils/100 WBC (Bld) 3 % Normal [facility]; [facility] Work Phone: Erythrocyte distribution width (RBC) [Ratio] 12.9 % Normal 11.7-15.4 [facility]; [facility] Work Phone: Hematocrit (Bld) [Volume fraction] 39.3 % Normal 34.0-46.6 [facility]; [facility] Work Phone: Hemoglobin (Bld) [Mass/Vol] 12.7 g/dL Normal 11.1-15.9 [facility]; [facility] Work Phone: Immature granulocytes (Bld) [#/Vol] 0.0 10*3/uL Normal 0.0-0.1 [facility]; [facility] Work Phone: Immature granulocytes/100 WBC (Bld) 0 % Normal [facility]; [facility] Work Phone: Lymphocytes (Bld) [#/Vol] 1.5 10*3/uL Normal 0.7-3.1 [facility]; [facility] Work Phone: Lymphocytes/100 WBC (Bld) 40 % Normal [facility]; [facility] Work Phone: MCH (RBC) [Entitic mass] 30.3 pg Normal 26.6-33.0 [facility]; [facility] Work Phone: MCHC (RBC) [Mass/Vol] 32.3 g/dL Normal 31.5-35.7 [facility]; [facility] Work Phone: MCV (RBC) [Entitic vol] 94 fL Normal 79-97 [facility]; [facility] Work Phone: Monocytes (Bld) [#/Vol] 0.5 10*3/uL Normal 0.1-0.9 [facility]; [facility] Work Phone: Monocytes/100 WBC (Bld) 12 % Normal [facility]; [facility] Work Phone: Neutrophils (Bld) [#/Vol] 1.7 10*3/uL Normal 1.4-7.0 [facility]; [facility] Work Phone: Neutrophils/100 WBC (Bld) 44 % Normal [facility]; [facility] Work Phone: Platelets (Bld) [#/Vol] 215 10*3/uL Normal 150-450 [facility]; [facility] Work Phone: RBC (Bld) [#/Vol] 4.19 10*6/uL Normal 3.77-5.28 [facility]; [facility] Work Phone: WBC (Bld) [#/Vol] 3.8 10*3/uL Normal 3.4-10.8 [facility]; [facility] Work Phone: FERRITIN ([id number])Ordered By: Parts Assembler on 12-23-2020 Ferritin [Mass/Vol] 70 ng/mL Normal 15-150 [facility]; [facility] Work Phone: IRON BINDING CAPACITY (TIBC) ([id number])Ordered By: Parts Assembler on 12-23-2020 Iron [Mass/Vol] 65 ug/dL Normal 27-139 [facility]; [facility] Work Phone: Iron binding capacity [Mass/Vol] 398 ug/dL Normal 250-450 [facility]; [facility] Work Phone: Iron binding capacity.unsaturated [Mass/Vol] 333 ug/dL Normal 118-369 [facility]; [facility] Work Phone: Iron saturation [Mass fraction] 16 % Normal 15-55 [facility]; [facility] Work Phone: LDH (LD) (LACTATE DEHYDROGEN ASE) ([id number])Ordered By: Parts Assembler on 12-23-2020 LDH [Catalytic activity/Vol] 182 U/L Normal 119-226 [facility]; [facility] Work Phone: METABOLIC PANEL, COMPREHENSI VE ([id number])Ordered By: Parts Assembler on 12-23-2020 Albumin [Mass/Vol] 4.3 g/dL Normal 3.7-4.7 [facility]; [facility] Work Phone: Albumin/Globulin [Mass ratio] 1.9 {ratio} Normal 1.2-2.2 [facility]; [facility] Work Phone: ALP [Catalytic activity/Vol] 73 U/L Normal 44-121 [facility]; [facility] Work Phone: ALT [Catalytic activity/Vol] 19 U/L Normal 0-32 [facility]; [facility] Work Phone: AST [Catalytic activity/Vol] 28 U/L Normal 0-40 [facility]; [facility] Work Phone: Bilirubin [Mass/Vol] 0.4 mg/dL Normal 0.0-1.2 [facility]; [facility] Work Phone: Calcium [Mass/Vol] 9.9 mg/dL Normal 8.7-10.3 [facility]; [facility] Work Phone: Chloride [Moles/Vol] 103 mmol/L Normal 96-106 [facility]; [facility] Work Phone: CO2 [Moles/Vol] 26 mmol/L Normal 20-29 [facility]; [facility] Work Phone: Creatinine [Mass/Vol] 0.84 mg/dL Normal 0.57-1.00 [facility]; [facility] Work Phone: GFR/1.73 sq M.predicted among blacks CKD-EPI (S/P/Bld) [Vol rate/Area] 76 mL/min/1.73 Normal [facility]; [facility] Work Phone: GFR/1.73 sq M.predicted among non-blacks CKD-EPI (S/P/Bld) [Vol rate/Area] 66 mL/min/1.73 Normal [facility]; [facility] Work Phone: Globulin (S) [Mass/Vol] 2.3 g/dL Normal 1.5-4.5 [facility]; [facility] Work Phone: Glucose [Mass/Vol] 86 mg/dL Normal 65-99 [facility]; [facility] Work Phone: Potassium [Moles/Vol] 4.4 mmol/L Normal 3.5-5.2 [facility]; [facility] Work Phone: Protein [Mass/Vol] 6.6 g/dL Normal 6.0-8.5 [facility]; [facility] Work Phone: Sodium [Moles/Vol] 142 mmol/L Normal 134-144 [facility]; [facility] Work Phone: Urea nitrogen [Mass/Vol] 32 mg/dL Abnormal 8-27 [facility]; [facility] Work Phone: Urea nitrogen/Creatinine [Mass ratio] 38 mg/mg Abnormal 12-28 [facility]; [facility] Work Phone: RETICULOCYTE COUNT MANUL ([phone])Ordered By: Parts Assembler on 12-23-2020 Reticulocytes/100 RBC (Bld) 0.6 % Normal 0.6-2.6 [facility]; [facility] Work Phone: VITAMIN B-12 (CYANOCOBALAMIN ) ([id number])Ordered By: Parts Assembler on 12-23-2020 Cobalamin (Vitamin B12) [Mass/Vol] 745 pg/mL Normal 232-1245 [facility]; [facility] Work Phone: MICROALBUMINOrdered By: Syst em Plaster Model And Mold Maker on 11-02-2020 Albumin DL <= 20 mg/L (U) [Mass/Vol] 4.6 ug/mL Normal [facility]; [facility] Work Phone: Albumin/Creatinine (U) [Mass ratio] 7 {mg/g_creat} Normal 0-29 [facility]; [facility] Work Phone: Creatinine (U) [Mass/Vol] 64.6 mg/dL Normal [facility]; [facility] Work Phone: URINE TORIE CULTURE-IDENTIFICA [place] ([id number])Ordered By: Parts Assembler on 11-02-2020 Bacteria identified Cx Nom (U) Final report Normal [facility]; [facility] Work Phone: Bacteria identified Cx Nom (U) MUG Normal [facility]; [facility] Work Phone: URINE TORIE CULTURE-IDENTIFICA [place] ([id number])Ordered By: Parts Assembler on 03-10-2020 Bacteria identified Cx Nom (U) BETAGB Abnormal [facility]; [facility] Work Phone: Comment on above: Beta hemolytic Strep tococcus, group B200 Colonies/mL .Penicillin and ampicillin are drugs of choice for treatment ofbeta-hemolytic streptococcal infections. Susceptibility testing ofpenicillins and other beta-lactam agents approved by the FDA fortreatment of beta-hemolytic streptococcal infections need not beperformed routinely because nonsusceptible isolates are extremelyrare in any beta-hemolytic streptococcus and have not been reportedfor Streptococcus pyogenes (group A). (CLSI) PATIENT NOT FASTINGP ERFORMED BY: [id number] [facility] [id number] Information: SRC: Bacteria identified Cx Nom (U) Final report Abnormal [facility]; [facility] Work Phone: Comment on above: PATIENT NOT FASTINGP ERFORMED BY: [facility] [id number] [facility] [id number] Information: SRC: Urinalysis, Office ([id number])Or dered By: Reina Estrada on 03-09-2020 Bilirubin Ql (U) Negative Normal [facility]; [facility] Work Phone: Bilirubin Ql (U) Negative Normal [facility]; [facility] Work Phone: Glucose Test strip (U) [Mass/Vol] Negative Normal [facility]; [facility] Work Phone: Glucose Test strip (U) [Mass/Vol] Negative Normal [facility]; [facility] Work Phone: Hemoglobin Ql (U) Negative Normal [facility]; [facility] Work Phone: Hemoglobin Ql (U) Negative Normal [facility]; [facility] Work Phone: Ketones Ql (U) Moderate Normal [facility]; [facility] Work Phone: Leukocyte esterase Test strip Ql (U) Negative Normal [facility]; [facility] Work Phone: Leukocyte esterase Test strip Ql (U) Negative Normal [facility]; [facility] Work Phone: Nitrite Ql (U) Negative Normal [facility]; [facility] Work Phone: Nitrite Ql (U) Negative Normal [facility]; [facility] Work Phone: pH (U) 6 [pH] Abnormal [facility]; [facility] Work Phone: Protein Ql (U) 30 mg/dL Normal [facility]; [facility] Work Phone: Specific gravity (U) [Rel density] 1.025 1 Normal [facility]; [facility] Work Phone: Urobilinogen (24H U) [Mass/Time] Normal Normal [facility]; [facility] Work Phone: CBC W/AUTO DIFF WBC ([id number])O rdered By: Parts Assembler on 01-01-2020 Basophils (Bld) [#/Vol] 0.1 {x10E3/uL} Normal 0.0-0.2 [facility] Work Phone: Comment on above: PATIENT WAS FASTINGP ERFORMED BY: LIT [facility] [id number] Information: NURSE DRAW Basophils (Bld) [#/Vol] 0.1 10*3/uL Normal 0.0-0.2 [facility]; [facility] Work Phone: Comment on above: PATIENT WAS FASTINGP ERFORMED BY: Bubbli [id number] [facility] [id number] Information: NURSE DRAW Basophils/100 WBC (Bld) 1 % Normal [facility] Work Phone: Comment on above: PATIENT WAS FASTINGP ERFORMED BY: LIT [address] [id number] Information: NURSE DRAW Eosinophils (Bld) [#/Vol] 0.2 {x10E3/uL} Normal 0.0-0.4 [facility] Work Phone: Comment on above: PATIENT WAS FASTINGP ERFORMED BY: LIT [address] [id number] Information: NURSE DRAW Eosinophils (Bld) [#/Vol] 0.2 10*3/uL Normal 0.0-0.4 [facility]; [facility] Work Phone: Comment on above: PATIENT WAS FASTINGP ERFORMED BY: LIT [address] [id number] Information: NURSE DRAW Eosinophils/100 WBC (Bld) 3 % Normal [facility] Work Phone: Comment on above: PATIENT WAS FASTINGP ERFORMED BY: LIT [address] [id number] Information: NURSE DRAW Erythrocyte distribution width (RBC) [Ratio] 12.4 % Normal 11.7-15.4 [facility] Work Phone: Comment on above: PATIENT WAS FASTINGP ERFORMED BY: LIT [address] [id number] Information: NURSE DRAW Hematocrit (Bld) [Volume fraction] 38.4 % Normal 34.0-46.6 [facility] Work Phone: Comment on above: PATIENT WAS FASTINGP ERFORMED BY: [address] [id number] Information: NURSE DRAW Hemoglobin (Bld) [Mass/Vol] 13.2 g/dL Normal 11.1-15.9 [facility] Work Phone: Comment on above: PATIENT WAS FASTINGP ERFORMED BY: [address] [id number] Information: NURSE DRAW Immature granulocytes (Bld) [#/Vol] 0.0 {x10E3/uL} Normal 0.0-0.1 [facility] Work Phone: Comment on above: PATIENT WAS FASTINGP ERFORMED BY: [address] [id number] Information: NURSE DRAW Immature granulocytes (Bld) [#/Vol] 0.0 10*3/uL Normal 0.0-0.1 [facility]; [facility] Work Phone: Comment on above: PATIENT WAS FASTINGP ERFORMED BY: [address] [id number] Information: NURSE DRAW Immature granulocytes/100 WBC (Bld) 0 % Normal [facility] Work Phone: Comment on above: PATIENT WAS FASTINGP ERFORMED BY: [address] [id number] Information: NURSE DRAW Lymphocytes (Bld) [#/Vol] 2.0 {x10E3/uL} Normal 0.7-3.1 [facility] Work Phone: Comment on above: PATIENT WAS FASTINGP ERFORMED BY: [address] [id number] Information: NURSE DRAW Lymphocytes (Bld) [#/Vol] 2.0 10*3/uL Normal 0.7-3.1 [facility]; [facility] Work Phone: Comment on above: PATIENT WAS FASTINGP ERFORMED BY: [address] [id number] Information: NURSE DRAW Lymphocytes/100 WBC (Bld) 41 % Normal [facility] Work Phone: Comment on above: PATIENT WAS FASTINGP ERFORMED BY: [address] [id number] Information: NURSE DRAW MCH (RBC) [Entitic mass] 31.4 pg Normal 26.6-33.0 [facility] Work Phone: Comment on above: PATIENT WAS FASTINGP ERFORMED BY: LIT JoseDimas LuongRfjsoe[address] [id number] Information: NURSE DRAW MCHC (RBC) [Mass/Vol] 34.4 g/dL Normal 31.5-35.7 [facility] Internal Medicine Work Phone: Comment on above: PATIENT WAS FASTINGP ERFORMED BY: LIT [address] [id number] Information: NURSE DRAW MCV (RBC) [Entitic vol] 91 fL Normal 79-97 [facility] Internal Medicine Work Phone: Comment on above: PATIENT WAS FASTINGP ERFORMED BY: LIT [address] [id number] Information: NURSE DRAW Monocytes (Bld) [#/Vol] 0.5 {x10E3/uL} Normal 0.1-0.9 [facility] Internal Medicine Work Phone: Comment on above: PATIENT WAS FASTINGP ERFORMED BY: LIT [facility] HospitalDimas [address] [id number] Information: NURSE DRAW Monocytes (Bld) [#/Vol] 0.5 10*3/uL Normal 0.1-0.9 [facility] Internal Medicine; [facility] Work Phone: Comment on above: PATIENT WAS FASTINGP ERFORMED BY: LIT [address] [id number] Information: NURSE DRAW Monocytes/100 WBC (Bld) 9 % Normal [facility] Internal Medicine Work Phone: Comment on above: PATIENT WAS FASTINGP ERFORMED BY: LIT [address] [id number] Information: NURSE DRAW Neutrophils (Bld) [#/Vol] 2.2 {x10E3/uL} Normal 1.4-7.0 [facility] Work Phone: Comment on above: PATIENT WAS FASTINGP ERFORMED BY: LIT Luonglin6370 [facility] [id number] Information: NURSE DRAW Neutrophils (Bld) [#/Vol] 2.2 10*3/uL Normal 1.4-7.0 [facility]; [facility] Work Phone: Comment on above: PATIENT WAS FASTINGP ERFORMED BY: LIT Luonglin6370 [facility] [id number] Information: NURSE DRAW Neutrophils/100 WBC (Bld) 46 % Normal [facility] Work Phone: Comment on above: PATIENT WAS FASTINGP ERFORMED BY: LIT Luonglin6370 [facility] [id number] Information: NURSE DRAW Platelets (Bld) [#/Vol] 209 {x10E3/uL} Normal 150-450 [facility] Work Phone: Comment on above: PATIENT WAS FASTINGP ERFORMED BY: LIT Luonglin6370 [facility] [id number] Information: NURSE DRAW Platelets (Bld) [#/Vol] 209 10*3/uL Normal 150-450 [facility]; [facility] Work Phone: Comment on above: PATIENT WAS FASTINGP ERFORMED BY: LIT Luong[address] [id number] Information: NURSE DRAW RBC (Bld) [#/Vol] 4.20 {x10E6/uL} Normal 3.77-5.28 [facility] Internal Medicine Work Phone: Comment on above: PATIENT WAS FASTINGP ERFORMED BY: LIT Luonglin6370 [facility] [id number] Information: NURSE DRAW RBC (Bld) [#/Vol] 4.20 10*6/uL Normal 3.77-5.28 [facility] Internal Medicine; [facility] Work Phone: Comment on above: PATIENT WAS FASTINGP ERFORMED BY: LIT Luonglin6370 [facility] [id number] Information: NURSE DRAW WBC (Bld) [#/Vol] 4.9 {x10E3/uL} Normal 3.4-10.8 [facility] Internal Medicine Work Phone: Comment on above: PATIENT WAS FASTINGP ERFORMED BY: LIT LabCodarcy LuongKzvarv6486 [facility] [id number] Information: NURSE DRAW WBC (Bld) [#/Vol] 4.9 10*3/uL Normal 3.4-10.8 [facility] Internal Medicine; [facility] Internal Medicine Work Phone: Comment on above: PATIENT WAS FASTINGP ERFORMED BY: LIT Declan Gallardo6370 [facility] [id number] Information: NURSE DRAW METABOLIC PANEL, RAMON JOYCE ([id number])Ordered By: Parts Assembler on 01-01-2020 Albumin [Mass/Vol] 4.5 g/dL Normal 3.7-4.7 [facility] Internal Medicine Work Phone: Comment on above: PATIENT WAS FASTINGP ERFORMED BY: LIT LabDomonique Wkbrfs2336 [facility] [id number] Albumin/Globulin [Mass ratio] 2.0 {ratio} Normal 1.2-2.2 [facility] Internal Medicine Work Phone: Comment on above: PATIENT WAS FASTINGP ERFORMED BY: LIT LabCo Siomiq8063 [facility] [id number] ALP [Catalytic activity/Vol] 51 [iU]/L Normal 39-117 [facility] Internal Medicine Work Phone: Comment on above: PATIENT WAS FASTINGP ERFORMED BY: LIT LabCo Anymmj1693 [address] [facility] [place] [id number] ALP [Catalytic activity/Vol] 51 U/L Normal 39-117 [facility] Internal Medicine; [facility] Internal Medicine Work Phone: Comment on above: PATIENT WAS FASTINGP ERFORMED BY: LIT [facility] Hsupja4173 [address] [facility] [place] [id number] ALT [Catalytic activity/Vol] 14 [iU]/L Normal 0-32 [facility] Work Phone: Comment on above: PATIENT WAS FASTINGP ERFORMED BY: CB [facility] Jwabft2183 [address] RoadDublin [place] [id number] ALT [Catalytic activity/Vol] 14 U/L Normal 0-32 [facility]; [facility] Work Phone: Comment on above: PATIENT WAS FASTINGP ERFORMED BY: CB [facility] Kaghvs9642 [address] RoadDublin [place] [id number] AST [Catalytic activity/Vol] 25 [iU]/L Normal 0-40 [facility] Work Phone: Comment on above: PATIENT WAS FASTINGP ERFORMED BY: CB [facility] Axbohe3496 [address] RoadDublin [place] [id number] AST [Catalytic activity/Vol] 25 U/L Normal 0-40 [facility]; [facility] Work Phone: Comment on above: PATIENT WAS FASTINGP ERFORMED BY: [facility] Enfwiw8080 [address] RoadDublin [place] [id number] Bilirubin [Mass/Vol] 0.6 mg/dL Normal 0.0-1.2 [facility]ensive Internal [facility] Work Phone: Comment on above: PATIENT WAS FASTINGP ERFORMED BY: [facility] Htxuzc8111 [address] RoadDublin [place] [id number] Calcium [Mass/Vol] 9.5 mg/dL Normal 8.7-10.3 [facility] Internal Medicine Work Phone: Comment on above: PATIENT WAS FASTINGP ERFORMED BY: [facility] Cgxbyj6402 [address] RoadDublin [place] [id number] Chloride [Moles/Vol] 104 mmol/L Normal 96-106 [facility] hospitalensive Internal [facility] Work Phone: Comment on above: PATIENT WAS FASTINGP ERFORMED BY: CB [facility] Ldhguv9410 [address] RoadDublin [place] [id number] CO2 [Moles/Vol] 28 mmol/L Normal 20-29 Comprehen count includes the [facility] Internal Medicine Work Phone: Comment on above: PATIENT WAS FASTINGP ERFORMED BY: CB [facility] Nwjgsr6808 [address] RoadDublin [place] [id number] Creatinine [Mass/Vol] 0.90 mg/dL Normal 0.57-1.00 [facility] Internal Medicine Work Phone: Comment on above: PATIENT WAS FASTINGP ERFORMED BY: CB [facility] Ocrccp7335 [address] RoadDublin [place] [id number] GFR/1.73 sq M predicted among blacks CKD-EPI (S/P/Bld) [Vol rate/Area] 71 mL/min/1.73 Normal [facility] Internal Medicine Work Phone: Comment on above: PATIENT WAS FASTINGP ERFORMED BY: CB [facility] Jaqnls3850 [address] RoadDublin [place] [id number] GFR/1.73 sq M predicted among non-blacks CKD-EPI (S/P/Bld) [Vol rate/Area] 61 mL/min/1.73 Normal [facility] Internal Medicine Work Phone: Comment on above: PATIENT WAS FASTINGP ERFORMED BY: LIT [facility] Awlaml1284 [address] RoadDublin [place] [id number] Globulin (S) [Mass/Vol] 2.3 g/dL Normal 1.5-4.5 [facility] Internal Medicine Work Phone: Comment on above: PATIENT WAS FASTINGP ERFORMED BY: [facility] Xjyiih0610 [address] RoadDublin [place] [id number] Glucose [Mass/Vol] 81 mg/dL Normal 65-99 [facility] Internal Medicine Work Phone: Comment on above: PATIENT WAS FASTINGP ERFORMED BY: CB [facility] Jqogtb1197 [address] RoadDublin [place] [id number] Potassium [Moles/Vol] 4.3 mmol/L Normal 3.5-5.2 [facility] Internal Medicine Work Phone: Comment on above: PATIENT WAS FASTINGP ERFORMED BY: CB [facility] Nsehoi8997 [address] RoadDublin [place] [id number] Protein [Mass/Vol] 6.8 g/dL Normal 6.0-8.5 [facility] Internal Medicine Work Phone: Comment on above: PATIENT WAS FASTINGP ERFORMED BY: LIT Mikedarcy Dplzui9706 [facility] [id number] Sodium [Moles/Vol] 143 mmol/L Normal 134-144 [facility] Internal Medicine Work Phone: Comment on above: PATIENT WAS FASTINGP ERFORMED BY: LIT [facility] HospitalDomonique Ktgrgh4810 [facility] [id number] Urea nitrogen [Mass/Vol] 34 mg/dL Abnormal 10-30 [facility] Work Phone: Comment on above: PATIENT WAS FASTINGP ERFORMED BY: LIT JsoeDimas LuongEmkgst1675 [facility] [id number] Urea nitrogen/Creatinine [Mass ratio] 38 mg/mg Abnormal 03-02 [facility] Work Phone: Comment on above: PATIENT WAS FASTINGP ERFORMED BY: LIT Luonglin6370 [facility] [id number] CBC W/AUTO DIFF WBC ([id number])O rdered By: Parts Assembler on 01-16-2019 Basophils (Bld) [#/Vol] 0.1 {x10E3/uL} Normal 0.0-0.2 [facility] Work Phone: Comment on above: PATIENT WAS FASTINGP ERFORMED BY: LIT Luonglin6370 [facility] [id number]; wellness on 01/30 Basophils (Bld) [#/Vol] 0.1 10*3/uL Normal 0.0-0.2 [facility]; [facility] Work Phone: Comment on above: PATIENT WAS FASTINGP ERFORMED BY: LIT [facility] Yayhyj8223 [facility] [id number]; wellness on 01/30 Basophils/100 WBC (Bld) 1 % Normal [facility] Work Phone: Comment on above: PATIENT WAS FASTINGP ERFORMED BY: LIT [facility] Ecahcs3164 [facility] [id number]; wellness on 01/30 Eosinophils (Bld) [#/Vol] 0.2 {x10E3/uL} Normal 0.0-0.4 [facility] Work Phone: Comment on above: PATIENT WAS FASTINGP ERFORMED BY: LIT [facility] Ylteab0017 [address] RoadAffinity Health Partnersin [place] [id number]; wellness on 01/30 Eosinophils (Bld) [#/Vol] 0.2 10*3/uL Normal 0.0-0.4 [facility]; [facility] Work Phone: Comment on above: PATIENT WAS FASTINGP ERFORMED BY: LIT [facility] Gaaivc2375 [facility] [id number]; wellness on 01/30 Eosinophils/100 WBC (Bld) 4 % Normal [facility] Work Phone: Comment on above: PATIENT WAS FASTINGP ERFORMED BY: LabJames Ville 5028870 [facility] [id number]; wellness on 01/30 Erythrocyte distribution width (RBC) [Ratio] 14.0 % Normal 12.3-15.4 [facility] Work Phone: Comment on above: PATIENT WAS FASTINGP ERFORMED BY: LIT [facility]6370 [facility] [id number]; wellness on 01/30 Hematocrit (Bld) [Volume fraction] 39.4 % Normal 34.0-46.6 [facility] Work Phone: Comment on above: PATIENT WAS FASTINGP ERFORMED BY: LabCo Hdrhff8930 [facility] [id number]; wellness on 01/30 Hemoglobin (Bld) [Mass/Vol] 13.2 g/dL Normal 11.1-15.9 [facility] Work Phone: Comment on above: PATIENT WAS FASTINGP ERFORMED BY: LabCo Ylhvjr7787 [facility] [id number]; wellness on 01/30 Immature granulocytes (Bld) [#/Vol] 0.0 {x10E3/uL} Normal 0.0-0.1 [facility] Work Phone: Comment on above: PATIENT WAS FASTINGP ERFORMED BY: LIT LabDimas LuongKxytbq7949 [address] [facility]in [place] [id number]; wellness on 01/30 Immature granulocytes (Bld) [#/Vol] 0.0 10*3/uL Normal 0.0-0.1 [facility]; [facility] Work Phone: Comment on above: PATIENT WAS FASTINGP ERFORMED BY: LIT LabDimas LuongHwhcdp7505 [address] RoadAffinity Health Partnersin [place] [id number]; wellness on 01/30 Immature granulocytes/100 WBC (Bld) 0 % Normal [facility] Work Phone: Comment on above: PATIENT WAS FASTINGP ERFORMED BY: LIT LabDimas LuongPjqkbf7503 [address] RoadECU [facility] [id number]; wellness on 01/30 Lymphocytes (Bld) [#/Vol] 1.9 {x10E3/uL} Normal 0.7-3.1 [facility] Work Phone: Comment on above: PATIENT WAS FASTINGP ERFORMED BY: LIT LabDimas LuongCfgvvh4784 [facility] [id number]; wellness on 01/30 Lymphocytes (Bld) [#/Vol] 1.9 10*3/uL Normal 0.7-3.1 [facility]; [facility] Work Phone: Comment on above: PATIENT WAS FASTINGP ERFORMED BY: LIT LabDomonique Ssckxb9645 [facility] [id number]; wellness on 01/30 Lymphocytes/100 WBC (Bld) 42 % Normal [facility] Work Phone: Comment on above: PATIENT WAS FASTINGP ERFORMED BY: LIT [facility] Nxlbwl7139 [facility] [id number]; wellness on 01/30 MCH (RBC) [Entitic mass] 30.9 pg Normal 26.6-33.0 [facility] Work Phone: Comment on above: PATIENT WAS FASTINGP ERFORMED BY: LIT [facility] Dwinuw8825 [address] RoadDublin [place] [id number]; wellness on 01/30 MCHC (RBC) [Mass/Vol] 33.5 g/dL Normal 31.5-35.7 [facility] Springsensive [facility] Work Phone: Comment on above: PATIENT WAS FASTINGP ERFORMED BY: LIT [facility] Vozexk5927 [address] RoadDublin [place] [id number]; wellness on 01/30 MCV (RBC) [Entitic vol] 92 fL Normal 79-97 [facility] Work Phone: Comment on above: PATIENT WAS FASTINGP ERFORMED BY: LIT [facility] Xuwvit6616 [address] RoadDublin [place] [id number]; wellness on 01/30 Monocytes (Bld) [#/Vol] 0.3 {x10E3/uL} Normal 0.1-0.9 [facility] Work Phone: Comment on above: PATIENT WAS FASTINGP ERFORMED BY: LIT [facility] Lfllrf1910 [address] RoadDublin [place] [id number]; wellness on 01/30 Monocytes (Bld) [#/Vol] 0.3 10*3/uL Normal 0.1-0.9 [facility]; [facility] Work Phone: Comment on above: PATIENT WAS FASTINGP ERFORMED BY: LIT [facility] Cutnoo9980 [address] RoadDublin [place] [id number]; wellness on 01/30 Monocytes/100 WBC (Bld) 6 % Normal [facility] Work Phone: Comment on above: PATIENT WAS FASTINGP ERFORMED BY: LIT [facility] Rpslsf2848 [address] RoadDublin [place] [id number]; wellness on 01/30 Neutrophils (Bld) [#/Vol] 2.1 {x10E3/uL} Normal 1.4-7.0 [facility] Work Phone: Comment on above: PATIENT WAS FASTINGP ERFORMED BY: LIT [facility] Uptocz6588 [address] RoadDublin [place] [id number]; wellness on 01/30 Neutrophils (Bld) [#/Vol] 2.1 10*3/uL Normal 1.4-7.0 [facility]; [facility] Work Phone: Comment on above: PATIENT WAS FASTINGP ERFORMED BY: LIT LabCodarcy LuongOudjww2336 [address] RoadDublin [place] [id number]; wellness on 01/30 Neutrophils/100 WBC (Bld) 47 % Normal [facility] Work Phone: Comment on above: PATIENT WAS FASTINGP ERFORMED BY: LIT [facility] Ehxtcq7780 [address] RoadDublin [place] [id number]; wellness on 01/30 Platelets (Bld) [#/Vol] 214 {x10E3/uL} Normal 150-450 [facility] Work Phone: Comment on above: PATIENT WAS FASTINGP ERFORMED BY: LIT LabCodarcy LuongLbpofi5097 [address] RoadDublin [place] [id number]; wellness on 01/30 Platelets (Bld) [#/Vol] 214 10*3/uL Normal 150-450 [facility]; [facility] Work Phone: Comment on above: PATIENT WAS FASTINGP ERFORMED BY: LIT [facility] Iggwwq9624 [address] RoadDublin [place] [id number]; wellness on 01/30 RBC (Bld) [#/Vol] 4.27 {x10E6/uL} Normal 3.77-5.28 [facility] Internal Medicine Work Phone: Comment on above: PATIENT WAS FASTINGP ERFORMED BY: LIT [facility] Uiiqxu4936 [address] RoadDublin [place] [id number]; wellness on 01/30 RBC (Bld) [#/Vol] 4.27 10*6/uL Normal 3.77-5.28 [facility] Internal Medicine; [facility] Work Phone: Comment on above: PATIENT WAS FASTINGP ERFORMED BY: LIT LabCodarcy Bwefhy7556 [address] RoadDublin [place] [id number]; wellness on 01/30 WBC (Bld) [#/Vol] 4.6 {x10E3/uL} Normal 3.4-10.8 [facility] Internal Medicine Work Phone: Comment on above: PATIENT WAS FASTINGP ERFORMED BY: LIT LabCodarcy Npigoj7676 [address] RoadDublin [place] [id number]; wellness on 01/30 WBC (Bld) [#/Vol] 4.6 10*3/uL Normal 3.4-10.8 [facility] Internal Medicine; [facility] Internal Medicine Work Phone: Comment on above: PATIENT WAS FASTINGP ERFORMED BY: LIT [facility] Kvjnng7185 [address] RoadDublin [place] [id number]; wellness on 01/30 METABOLIC PANEL, COMPREHENSI VE ([id number])Ordered By: Parts Assembler on 01-16-2019 Albumin [Mass/Vol] 4.4 g/dL Normal 3.5-4.8 [facility] Internal Medicine Work Phone: Comment on above: PATIENT WAS FASTINGP ERFORMED BY: LIT Luonglin6370 [address] RoadAffinity Health Partnersin [place] [id number] Albumin/Globulin [Mass ratio] 1.9 {ratio} Normal 1.2-2.2 [facility] Internal Medicine Work Phone: Comment on above: PATIENT WAS FASTINGP ERFORMED BY: LIT LabDomoniquedarcy LuongEiwvco2402 [address] RoadDublin [place] [id number] ALP [Catalytic activity/Vol] 49 [iU]/L Normal 39-117 [facility] Internal Medicine Work Phone: Comment on above: PATIENT WAS FASTINGP ERFORMED BY: LIT LabCodarcy Ahuvtb8967 [address] RoadDublin [place] [id number] ALP [Catalytic activity/Vol] 49 U/L Normal 39-117 [facility]; [facility] Work Phone: Comment on above: PATIENT WAS FASTINGP ERFORMED BY: LIT [facility] Xtpdxg4476 [address] RoadDublin [place] [id number] ALT [Catalytic activity/Vol] 16 [iU]/L Normal 0-32 [facility] Work Phone: Comment on above: PATIENT WAS FASTINGP ERFORMED BY: LIT [facility] Deesgy1820 [address] RoadDublin [place] [id number] ALT [Catalytic activity/Vol] 16 U/L Normal 0-32 [facility]; [facility] Work Phone: Comment on above: PATIENT WAS FASTINGP ERFORMED BY: [facility] Vrdqls6750 [address] RoadDublin [place] [id number] AST [Catalytic activity/Vol] 28 [iU]/L Normal 0-40 [facility] Internal Medicine Work Phone: Comment on above: PATIENT WAS FASTINGP ERFORMED BY: [facility] Vvnuld0793 [address] RoadDublin [place] [id number] AST [Catalytic activity/Vol] 28 U/L Normal 0-40 [facility]; [facility] Internal Medicine Work Phone: Comment on above: PATIENT WAS FASTINGP ERFORMED BY: [facility] Obcsna7066 [address] RoadDublin [place] [id number] Bilirubin [Mass/Vol] 0.6 mg/dL Normal 0.0-1.2 [facility]erens[facility] Internal Medicine Work Phone: Comment on above: PATIENT WAS FASTINGP ERFORMED BY: [facility] Wajepu1557 [address] RoadDublin [place] [id number] Calcium [Mass/Vol] 9.2 mg/dL Normal 8.7-10.3 [facility] Internal Medicine Work Phone: Comment on above: PATIENT WAS FASTINGP ERFORMED BY: [facility] Zrnork2494 [address] RoadDublin [place] [id number] Chloride [Moles/Vol] 105 mmol/L Normal 96-106 [facility] Internal Medicine Work Phone: Comment on above: PATIENT WAS FASTINGP ERFORMED BY: [facility] Sblqbq4138 [address] RoadDublin [place] [id number] CO2 [Moles/Vol] 25 mmol/L Normal 20-29 [facility] Internal Medicine Work Phone: Comment on above: PATIENT WAS FASTINGP ERFORMED BY: [facility] Cgrscg1878 [address] RoadDublin [place] [id number] Creatinine [Mass/Vol] 0.78 mg/dL Normal 0.57-1.00 [facility]ensive [facility] Work Phone: Comment on above: PATIENT WAS FASTINGP ERFORMED BY: LIT [facility] Hqxlkj2232 [address] Roadblin [place] [id number] GFR/1.73 sq M predicted among blacks CKD-EPI (S/P/Bld) [Vol rate/Area] 85 mL/min/1.73 Normal [facility] Work Phone: Comment on above: PATIENT WAS FASTINGP ERFORMED BY: CB [facility] Qqhtvl2044 [address] RoadDublin [place] [id number] GFR/1.73 sq M predicted among non-blacks CKD-EPI (S/P/Bld) [Vol rate/Area] 74 mL/min/1.73 Normal [facility] Work Phone: Comment on above: PATIENT WAS FASTINGP ERFORMED BY: LIT [facility] Zbrgsx5866 [address] RoadAffinity Health Partnersin [place] [id number] Globulin (S) [Mass/Vol] 2.3 g/dL Normal 1.5-4.5 [facility] Internal Medicine Work Phone: Comment on above: PATIENT WAS FASTINGP ERFORMED BY: LIT [facility] Rflrdi1472 [address] [facility] [place] [id number] Glucose [Mass/Vol] 81 mg/dL Normal 65-99 [facility] Internal Medicine Work Phone: Comment on above: PATIENT WAS FASTINGP ERFORMED BY: [facility] Ccueus0499 [address] [facility] [place] [id number] Potassium [Moles/Vol] 4.5 mmol/L Normal 3.5-5.2 [facility] Internal Medicine Work Phone: Comment on above: PATIENT WAS FASTINGP ERFORMED BY: CB [facility] Jiphrq9560 [address] [facility]bl[facility] [place] [id number] Protein [Mass/Vol] 6.7 g/dL Normal 6.0-8.5 [facility] Internal Medicine Work Phone: Comment on above: PATIENT WAS FASTINGP ERFORMED BY: CB [facility] Zqwabn7547 [address] RoadDublin [place] [id number] Sodium [Moles/Vol] 144 mmol/L Normal 134-144 [facility] Internal [facility] Work Phone: Comment on above: PATIENT WAS FASTINGP ERFORMED BY: [facility]6370 [facility] [id number] Urea nitrogen [Mass/Vol] 25 mg/dL Normal 8-27 [facility] Work Phone: Comment on above: PATIENT WAS FASTINGP ERFORMED BY: [facility]6370 [facility] [id number] Urea nitrogen/Creatinine [Mass ratio] 32 mg/mg Abnormal 12- [facility] Work Phone: Comment on above: PATIENT WAS FASTINGP ERFORMED BY: [facility]6370 [facility] [id number] CBC W/Diff, AutomatedOrdered By: Parts Assembler on 05-17-2018 Absolute Neut 1.4 {X10_3/uL} Abnormal 2.0-7.7 Compreh ensive Internal Medicine Work Phone: Comment on above: [facility] [address] [place], [place], [phone] ; appt 05/29 Basophils/100 WBC (Bld) 0.8 % Normal 0-1 [facility] Work Phone: Comment on above: [facility] [address]se[address]vlz[address] [place], [place], [phone] ; appt 05/29 Eosinophils/100 WBC (Bld) 3.2 % Normal 0-5 [facility] Work Phone: Comment on above: [facility] [address]fwhyxkowq[address] [place], [place], [phone] ; appt 05/29 Erythrocyte distribution width (RBC) [Ratio] 13.3 % Normal 11.6-14.6 [facility] Work Phone: Comment on above: [facility] Av[address]vkoei[address] [place], [place], [phone] ; appt 05/29 Hematocrit (Bld) [Volume fraction] 40.5 % Normal 37-47 [facility] Work Phone: Comment on above: [facility] Oswijttbfp[address] [place], [place], [phone] ; appt 05/29 Hemoglobin (Bld) [Mass/Vol] 13.0 g/dL Normal 12.0-15.0 [facility] Work Phone: Comment on above: [facility] Dvnknegoto[address] [place], [place], [phone] ; appt 05/29 IM GRAN % 0.000 % Normal 0.0-0.9 [facility] Work Phone: Comment on above: IG% - Immature Granu locytes (promyelocytes, myelocytes andmetamyelocytes) > 1% indicates that a LEFT SHIFT is Present. [facility] U[address]cbindzpr[address] [place], [place], [phone] ; appt 05/29 Lymphocytes (Bld) [#/Vol] 1.93 {X10_3/ul} Normal 0.83-4.51 [facility] Work Phone: Comment on above: [facility] [address]vfj[address] [place], [place], [phone] ; appt 05/29 Lymphocytes/100 WBC (Bld) 51.6 % Abnormal 19-41 Comprehensive Internal Medicine Work Phone: Comment on above: [facility] [place] [address] [place], [place], [phone] ; appt 05/29 MCH (RBC) [Entitic mass] 30.2 pg Normal 27.0-32.0 [facility] Internal Medicine Work Phone: Comment on above: [facility] [place] [address] [place], [place], [phone] ; appt 05/29 MCHC (RBC) [Mass/Vol] 32.1 {g/gl} Normal 32-36 [facility] [place] Internal Medicine Work Phone: Comment on above: [facility] [address] [place], [phone] ; appt 05/29 MCV (RBC) [Entitic vol] 94.2 fL Normal 81-99 [facility] Internal Medicine Work Phone: Comment on above: [facility] [address] [place], [phone] ; appt 05/29 Monocytes/100 WBC (Bld) 8.0 % Normal 0-10 [facility] Internal Medicine Work Phone: Comment on above: [facility] [address] [place], [place], [phone] ; appt 05/29 Neutrophils/100 WBC (Bld) 36.4 % Abnormal 47-70 [facility] Internal Medicine Work Phone: Comment on above: [facility] [address] [place], [place], [phone] ; appt 05/29 Platelet mean volume (Bld) [Entitic vol] 10.0 fL Normal 6.2-12.0 [facility] Internal Medicine Work Phone: Comment on above: [facility] [address] [place], [place], [phone] ; appt 05/29 Platelets (Bld) [#/Vol] 182 10*3/uL Normal 150-450 [facility] Internal Medicine Work Phone: Comment on above: [facility] [address] [place], [address] ; appt 05/29 RBC (Bld) [#/Vol] 4.30 {M/mm3} Normal 4.2-5.4 [facility] Internal Medicine Work Phone: Comment on above: [facility] [address] [place], [place], [phone] ; appt 05/29 RDW SD 45.6 fL Abnormal 35.1-43.9 [facility] Internal Medicine Work Phone: Comment on above: [facility] [address] [place], [place], [phone] ; appt 05/29 WBC (Bld) [#/Vol] 3.7 10*3/uL Abnormal 4.4-11.0 Compre hensive Internal Medicine Work Phone: Comment on above: [facility] [address] [place], [place], [phone] ; appt 05/29 Comprehensive Metabolic Prof ilOrdered By: Parts Assembler on 05-17-2018 Comprehensive metabolic 2000 panel 108 mmol/L Abnormal 98-107 Comprehensi ve Internal Medicine Work Phone: Comment on above: [facility] [place] [address] [place], [place], [phone] Comprehensive metabolic 2000 panel 7.1 g/dL Normal 6.4-8.2 Comprehensi ve Internal Medicine Work Phone: Comment on above: [facility] [place] [address] [place], [place], [phone] Comprehensive metabolic 2000 panel 94 mL/min Normal Comprehensi ve Internal Medicine Work Phone: Comment on above: GFR Calc [facility] [address] [place], [place], [phone] Comprehensive metabolic 2000 panel 4 1 Abnormal 5-15 Comprehensi ve Internal Medicine Work Phone: Comment on above: [facility] [place] [address] [place], [place], [phone] Comprehensive metabolic 2000 panel 3.8 g/dL Normal 3.2-5.0 Comprehensi ve Internal Medicine Work Phone: Comment on above: [facility] [place] [address] [place], [place], [phone] Comprehensive metabolic 2000 panel 34.0 {RATIO} Abnormal 10-20 Comprehensi ve Internal Medicine Work Phone: Comment on above: [facility] [address] [place], [place], [address] Comprehensive metabolic 2000 panel 78 mL/min Normal Comprehensi ve Internal Medicine Work Phone: Comment on above: Non- GFR Calc [facility] [address] [place], [place], [phone] Comprehensive metabolic 2000 panel 26 mg/dL Abnormal 7-18 Comprehensi ve Internal Medicine Work Phone: Comment on above: [facility] [address] [place], [place], [phone] Comprehensive metabolic 2000 panel 3.3 g/dL Normal 2.2-4.2 Comprehensi ve Internal Medicine Work Phone: Comment on above: [facility] [address] [place], [place], [address] Comprehensive metabolic 2000 panel 1.2 {RATIO} Normal 0.9-2.4 Comprehensi ve Internal Medicine Work Phone: Comment on above: [facility] [address] [place], [place], [address] Comprehensive metabolic 2000 panel 4.4 mmol/L Normal 3.5-5.1 Comprehensi ve Internal Medicine Work Phone: Comment on above: [facility] [place] [address] [place], [place], [address] Comprehensive metabolic 2000 panel 8.7 mg/dL Normal 8.5-10.1 Comprehensi ve Internal Medicine Work Phone: Comment on above: [facility] [place] [address] [place], [place], [address] Comprehensive metabolic 2000 panel 29 U/L Normal 15-37 Comprehensi ve Internal Medicine Work Phone: Comment on above: [facility] [place] [address] [place], [address] Comprehensive metabolic 2000 panel 52 U/L Normal 45-117 Comprehensi ve Internal Medicine Work Phone: Comment on above: [facility] [place] [address] [place], [address] Comprehensive metabolic 2000 panel 21 U/L Normal 13-56 Comprehensi ve Internal Medicine Work Phone: Comment on above: [facility] [address] [place], [place], [address] Comprehensive metabolic 2000 panel 0.76 mg/dL Normal 0.55-1.02 Comprehensi ve Internal Medicine Work Phone: Comment on above: The validity of the calculated GFR AND GFRAA in patients over70 years has not been determined. Clinical correlation isessential. [facility] [address] [place], [address] Comprehensive metabolic 2000 panel 82 mg/dL Normal 74-106 Comprehensi ve Internal Medicine Work Phone: Comment on above: Please note revised GLUCOSE reference range fhtfrjiqu78/02/2018. [facility] [address] [place], [address] Comprehensive metabolic 2000 panel 29.0 mmol/L Normal 21.0-32.0 Comprehensi ve Internal Medicine Work Phone: Comment on above: [facility] [place] [address] [place], [address] Comprehensive metabolic 2000 panel 0.50 mg/dL Normal 0.20-1.00 Comprehensi ve Internal Medicine Work Phone: Comment on above: [facility] [place] [address] [place], [address] Comprehensive metabolic 2000 panel 141 mmol/L Normal 136-145 Comprehensi ve Internal Medicine Work Phone: Comment on above: [facility] [place] [address] [place], [place], [phone] Hemoglobin Z2jCjisndw By: Sy stem Plaster Model And Mold Maker on 05-17-2018 HbA1c (Bld) [Mass fraction] 5.6 % Normal 4.2-6.3 [facility] Internal Medicine Work Phone: Comment on above: [facility] [address] [place], [address] Hepatitis C AntibodiesOrdere d By: Parts Assembler on 05-17-2018 Hepatitis C Antibodies <0.1 Normal 0.0-0.9 [facility] Internal Medicine Work Phone: Comment on above: Negative: < 0.8 Inde terminate: 0.8 - 0.9 Positive: > 0.9 The CDC recommends that a positive HCV antibody result be followed up with a HCV Nucleic Acid Amplification test (739988).Performed at: [facility] [id number] Director: Jeancarlos Gómez PhD, Phone: [phone] [employer] (refer to re port for specific site)refer to report for address and phone number CBC W/Diff, AutomatedOrdered By: Parts Assembler on 01-20-2018 Absolute Neut 1.5 {X10_3/uL} Abnormal 2.0-7.7 Compreh ensive Internal Medicine Work Phone: Comment on above: [facility] [address] [place], [place], [phone] Basophils/100 WBC (Bld) 0.8 % Normal 0-1 [facility] Internal Medicine Work Phone: Comment on above: [facility] [address] [place], [address] Eosinophils/100 WBC (Bld) 4.5 % Normal 0-5 [facility] Internal Medicine Work Phone: Comment on above: [facility] [address] [place], [place], [phone] Erythrocyte distribution width Ratio (RBC) 13.9 % Normal 11.6-14.6 [facility] Internal Medicine Work Phone: Comment on above: [facility] [place] [address] [place], [address] Hematocrit Volume Fraction (Bld) 38.8 % Normal 37-47 [facility] Internal Medicine Work Phone: Comment on above: [facility] [place] [address] [place], [address] Hemoglobin mass conc (Bld) 12.4 g/dL Normal 12.0-15.0 [facility] Internal Medicine Work Phone: Comment on above: [facility] [place] [address] [place], [address] IM GRAN % 0.000 % Normal 0.0-0.9 [facility] Internal Medicine Work Phone: Comment on above: IG% - Immature Granu locytes (promyelocytes, myelocytes andmetamyelocytes) > 1% indicates that a LEFT SHIFT is Present. [facility] [address] [place], [address] Lymphocytes #/vol (Bld) 1.66 {X10_3/ul} Normal 0.83-4.51 [facility] Internal Medicine Work Phone: Comment on above: [facility] [address] [place], [address] Lymphocytes/100 WBC (Bld) 43.9 % Abnormal 19-41 [facility] Internal Medicine Work Phone: Comment on above: [facility] [place] [address] [place], [address] MCH Entitic mass (RBC) 30.4 pg Normal 27.0-32.0 [facility] Internal Medicine Work Phone: Comment on above: [facility] [place] [address] [place], [address] MCHC mass conc (RBC) 32.0 {g/gl} Normal 32-36 Com prehensive Internal Medicine Work Phone: Comment on above: [facility] [address] [place], [address] MCV Entitic volume (RBC) 95.1 fL Normal 81-99 [facility] Internal Medicine Work Phone: Comment on above: [facility] [address] [place], [address] Monocytes/100 WBC (Bld) 11.4 % Abnormal 0-10 [facility] Internal Medicine Work Phone: Comment on above: [facility] [address] [place], [address] Neutrophils/100 WBC (Bld) 39.4 % Abnormal 47-70 [facility] Internal Medicine Work Phone: Comment on above: [facility] [address] [place], [address] Platelet mean volume Entitic volume (Bld) 10.2 fL Normal 6.2-12.0 Comprehensi Internal Medicine Work Phone: Comment on above: [facility] [address] [place], [address] Platelets #/vol (Bld) 177 10*3/uL Normal 150-450 [facility] [place] Internal Medicine Work Phone: Comment on above: [facility] [address] [place], [address] RBC #/vol (Bld) 4.08 {M/mm3} Abnormal 4.2-5.4 [facility]h [facility] Internal Medicine Work Phone: Comment on above: [facility] [address] [place], [address] RDW SD 47.8 fL Abnormal 35.1-43.9 [facility] Internal Medicine Work Phone: Comment on above: [facility] [address] [place], [address] WBC #/vol (Bld) 3.8 10*3/uL Abnormal 4.4-11.0 Comprehe nsive Internal Medicine Work Phone: Comment on above: [facility] [address] [place], [place], [phone] Comprehensive Metabolic Prof ilOrdered By: Parts Assembler on 01-20-2018 Comprehensive metabolic 2000 panel 0.60 mg/dL Normal 0.20-1.00 Comprehensi ve Internal Medicine Work Phone: Comment on above: [facility] [address] [place], [place], [phone] Comprehensive metabolic 2000 panel 101 mL/min Normal Comprehensi ve Internal Medicine Work Phone: Comment on above: GFR Calc [facility] [address] [place], [place], [phone] Comprehensive metabolic 2000 panel 37.5 {RATIO} Abnormal 10-20 Comprehensi ve Internal Medicine Work Phone: Comment on above: [facility] [address] [place], [place], [phone] Comprehensive metabolic 2000 panel 6.8 g/dL Normal 6.4-8.2 Comprehensi ve Internal Medicine Work Phone: Comment on above: [facility] [address] [place], [place], [phone] Comprehensive metabolic 2000 panel 3.5 g/dL Normal 3.2-5.0 Comprehensi ve Internal Medicine Work Phone: Comment on above: [facility] [address] [place], [place], [phone] Comprehensive metabolic 2000 panel 3.3 g/dL Normal 2.2-4.2 Comprehensi ve Internal Medicine Work Phone: Comment on above: [facility] [address] [place], [place], [phone] Comprehensive metabolic 2000 panel 1.1 {RATIO} Normal 0.9-2.4 Comprehensi ve Internal Medicine Work Phone: Comment on above: [facility] [address] [place], [address] Comprehensive metabolic 2000 panel 8.4 mg/dL Abnormal 8.5-10.1 Comprehensi ve Internal Medicine Work Phone: Comment on above: [facility] [address] [place], [address] Comprehensive metabolic 2000 panel 82 mg/dL Normal 74-106 Comprehensi ve Internal Medicine Work Phone: Comment on above: Please note revised GLUCOSE reference range /02/2018. [facility] [address] [place], [address] Comprehensive metabolic 2000 panel 84 mL/min Normal Comprehensi ve Internal Medicine Work Phone: Comment on above: Non- GFR Calc [facility] [address] [place], [place], [address] Comprehensive metabolic 2000 panel 47 U/L Normal 45-117 Comprehensi ve Internal Medicine Work Phone: Comment on above: [facility] [place] [address] [place], [address] Comprehensive metabolic 2000 panel 25 U/L Normal 13-56 Comprehensi ve Internal Medicine Work Phone: Comment on above: [facility] [address] [place], [address] Comprehensive metabolic 2000 panel 143 mmol/L Normal 136-145 Comprehensi ve Internal Medicine Work Phone: Comment on above: [facility] [address] [place], [place], [address] Comprehensive metabolic 2000 panel 4.1 mmol/L Normal 3.5-5.1 Comprehensi ve Internal Medicine Work Phone: Comment on above: [facility] [address] [place], [place], [phone] Comprehensive metabolic 2000 panel 108 mmol/L Abnormal 98-107 Comprehensi ve Internal Medicine Work Phone: Comment on above: [facility] [place] [address] [place], [place], [phone] Comprehensive metabolic 2000 panel 27.0 mmol/L Normal 21.0-32.0 Comprehensi ve Internal Medicine Work Phone: Comment on above: [facility] [place] [address] [place], [place], [phone] Comprehensive metabolic 2000 panel 8 1 Normal 5-15 Comprehensi ve Internal Medicine Work Phone: Comment on above: [facility] [place] [address] [place], [place], [phone] Comprehensive metabolic 2000 panel 0.72 mg/dL Normal 0.55-1.02 Comprehensi ve Internal Medicine Work Phone: Comment on above: The validity of the calculated GFR AND GFRAA in patients over70 years has not been determined. Clinical correlation isessential. [facility] [place] [address] [place], [place], [phone] Comprehensive metabolic 2000 panel 27 mg/dL Abnormal 7-18 Comprehensi ve Internal Medicine Work Phone: Comment on above: [facility] [place] [address] [place], [address] Hemoglobin W3sEbshori By: Sy stem Plaster Model And Mold Maker on 01-20-2018 Hemoglobin A1c/Hemoglobin.total mass fraction (Bld) 5.5 % Normal 4.2-6.3 Comprehensiv e Internal Medicine Work Phone: Comment on above: [facility] [place] [address] [place], [address] MicroalbOrdered By: Augie medina on 01-20-2018 Creatinine mass conc 14.8 {mg/g_CRE} Normal Comprehensive Internal Medicine Work Phone: Comment on above: [facility] [place] [address] [place], [place], [phone] Creatinine mass conc 93.40 mg/dL Normal Com prehensive Internal Medicine Work Phone: Comment on above: [facility] [place] [address] [place], [place], [phone] Microalb 13.8 mg/L Normal Comprehensive Internal Medicine Work Phone: Comment on above: [facility] [place] [address] [place], [place], [phone] CBC W/Diff, AutomatedOrdered By: Parts Assembler on 05-17-2017 Absolute Lymph 1.94 {X10_3/ul} Normal 0.83-4.51 Compr ehensive Internal Medicine Work Phone: Absolute Neut 1.8 {X10_3/uL} Abnormal 2.0-7.7 Compreh ensive Internal Medicine Work Phone: Comment on above: [facility] [place] [address] [place], [place], [phone] Basophils/100 WBC (Bld) 0.9 % Normal 0-1 [facility] Internal Medicine Work Phone: Comment on above: [facility] [place] [address] [place], [place], [phone] Basophils/100 WBC Auto (Bld) 0.9 % Normal 0-1 [facility] Internal Medicine Work Phone: Eosinophils/100 WBC (Bld) 3.4 % Normal 0-5 [facility] Internal Medicine Work Phone: Comment on above: [facility] [address] [place], [phone] Eosinophils/100 WBC Auto (Bld) 3.4 % Normal 0-5 [facility] Internal Medicine Work Phone: Erythrocyte distribution width Auto Ratio (RBC) 13.1 % Normal 11.6-14.6 [facility] Internal Medicine Work Phone: Erythrocyte distribution width Ratio (RBC) 13.1 % Normal 11.6-14.6 [facility] Internal Medicine Work Phone: Comment on above: [facility] [address] [place], [address] Hematocrit Auto Volume Fraction (Bld) 39.8 % Normal 37-47 Comprehens mony Internal Medicine Work Phone: Hematocrit Volume Fraction (Bld) 39.8 % Normal 37-47 [facility] Internal Medicine Work Phone: Comment on above: [place] [address] [place], [address] Hemoglobin mass conc (Bld) 13.3 g/dL Normal 12.0-15.0 [facility] Internal Medicine Work Phone: Comment on above: [place] [address] [place], [address] IM GRAN % 0.000 % Normal 0.0-0.9 [facility] Internal Medicine Work Phone: Comment on above: IG% - Immature Granu locytes (promyelocytes, myelocytes andmetamyelocytes) > 1% indicates that a LEFT SHIFT is Present. [place] [address] [place], [address] Lymphocytes #/vol (Bld) 1.94 {X10_3/ul} Normal 0.83-4.51 [facility] Internal Medicine Work Phone: Comment on above: [place] [address] [place], [address] Lymphocytes/100 WBC (Bld) 43.5 % Abnormal 19-41 [facility] Internal Medicine Work Phone: Comment on above: [facility] [address] [place], [address] Lymphocytes/100 WBC Auto (Bld) 43.5 % Abnormal 19-41 [facility] Internal Medicine Work Phone: MCH Auto Entitic mass (RBC) 31.0 pg Normal 27.0-32.0 [facility] Internal Medicine Work Phone: MCH Entitic mass (RBC) 31.0 pg Normal 27.0-32.0 [facility] Internal Medicine Work Phone: Comment on above: [facility] [address] [place], [address] MCHC Auto mass conc (RBC) 33.4 {g/gl} Normal 32-36 [facility] Internal Medicine Work Phone: MCHC mass conc (RBC) 33.4 {g/gl} Normal 32-36 [facility] prehensive Internal Medicine Work Phone: Comment on above: [facility] [address] [place], [address] MCV Auto Entitic volume (RBC) 92.8 fL Normal 81-99 [facility] Internal Medicine Work Phone: MCV Entitic volume (RBC) 92.8 fL Normal 81-99 [facility] Internal Medicine Work Phone: Comment on above: [facility] [address] [place], [address] Monocytes/100 WBC Auto (Bld) 12.3 % Abnormal 0-10 [facility] Internal Medicine Work Phone: Comment on above: [facility] [address] [place], [address] Neutrophils/100 WBC (Bld) 39.9 % Abnormal 47-70 [facility] Internal Medicine Work Phone: Comment on above: [facility] [address] [place], [address] Neutrophils/100 WBC Auto (Bld) 39.9 % Abnormal 47-70 [facility] Internal Medicine Work Phone: Platelet mean volume Auto Entitic volume (Bld) 10.5 fL Normal 6.2-12.0 [facility] Internal Medicine Work Phone: Platelet mean volume Entitic volume (Bld) 10.5 fL Normal 6.2-12.0 Comprehensi Internal Medicine Work Phone: Comment on above: [facility] [address] [place], [address] Platelets #/vol (Bld) 186 10*3/uL Normal 150-450 [facility] Work Phone: Comment on above: [facility] [address] [place], [address] Platelets Auto #/vol (Bld) 186 10*3/uL Normal 150-450 Comprehensive Internal Medicine Work Phone: RBC #/vol (Bld) 4.29 {M/mm3} Normal 4.2-5.4 Compreh ensive Internal Medicine Work Phone: Comment on above: [facility] [address] [place], [address] RBC Auto #/vol (Bld) 4.29 {M/mm3} Normal 4.2-5.4 [facility] Internal [facility] Work Phone: RDW SD 43.2 fL Normal 35.1-43.9 [facility] Internal Medicine Work Phone: Comment on above: [facility] [address] [place], [address] WBC #/vol (Bld) 4.5 10*3/uL Normal 4.4-11.0 Comprehe nsive Internal Medicine Work Phone: Comment on above: [facility] [address] [place], [address] WBC Auto #/vol (Bld) 4.5 10*3/uL Normal 4.4-11.0 [facility] prehensive Internal Medicine Work Phone: Comprehensive Metabolic Prof ilOrdered By: Parts Assembler on 05-17-2017 Comprehensive metabolic 2000 panel 77 mg/dL Normal 74-106 Comprehensi ve Internal Medicine Work Phone: Comment on above: Please note revised GLUCOSE reference range ksjutvoon32/02/2018. [facility] [address] [place], [address] Comprehensive metabolic 2000 panel 19 U/L Normal 13-56 Comprehensi ve Internal Medicine Work Phone: Comment on above: Please note revised ALT reference range [id number]/28/2018. [facility] [address] [place], [place], [address] Comprehensive metabolic 2000 panel 142 mmol/L Normal 136-145 Comprehensi ve Internal Medicine Work Phone: Comment on above: [facility] [address] [place], [place], [address] Comprehensive metabolic 2000 panel 4.1 mmol/L Normal 3.5-5.1 Comprehensi ve Internal Medicine Work Phone: Comment on above: [facility] [address] [place], [place], [id number] Comprehensive metabolic 2000 panel 50 U/L Normal 45-117 Comprehensi ve Internal Medicine Work Phone: Comment on above: [facility] [address] [place], [place], [phone] Comprehensive metabolic 2000 panel 105 mmol/L Normal 98-107 Comprehensi ve Internal Medicine Work Phone: Comment on above: [facility] [address] [place], [place], [address] Comprehensive metabolic 2000 panel 27 U/L Normal 15-37 Comprehensi ve Internal Medicine Work Phone: Comment on above: [facility] [address] [place], [place], [address] Comprehensive metabolic 2000 panel 8.9 mg/dL Normal 8.5-10.1 Comprehensi ve Internal Medicine Work Phone: Comment on above: [facility] [address] [place], [place], [phone] Comprehensive metabolic 2000 panel 29.0 mmol/L Normal 21.0-32.0 Comprehensi ve Internal Medicine Work Phone: Comment on above: [facility] [address] [place], [place], [address] Comprehensive metabolic 2000 panel 0.60 mg/dL Normal 0.20-1.00 Comprehensi ve Internal Medicine Work Phone: Comment on above: [facility] [address] [place], [place], [phone] Comprehensive metabolic 2000 panel 1.1 {RATIO} Normal 0.9-2.4 Comprehensi ve Internal Medicine Work Phone: Comment on above: [facility] [address] [place], [place], [address] Comprehensive metabolic 2000 panel 27 mg/dL Abnormal 7-18 Comprehensi ve Internal Medicine Work Phone: Comment on above: [place] [address] [place], [place], [phone] Comprehensive metabolic 2000 panel 0.78 mg/dL Normal 0.55-1.02 Comprehensi ve Internal Medicine Work Phone: Comment on above: The validity of the calculated GFR AND GFRAA in patients over70 years has not been determined. Clinical correlation isessential. [facility] [address] [place], [place], [phone] Comprehensive metabolic 2000 panel 77 mL/min Normal Comprehensi ve Internal Medicine Work Phone: Comment on above: Non- GFR Calc [facility] [address] [place], [place], [phone] Comprehensive metabolic 2000 panel 93 mL/min Normal Comprehensi ve Internal Medicine Work Phone: Comment on above: GFR Calc [facility] [address] [place], [place], [phone] Comprehensive metabolic 2000 panel 34.8 {RATIO} Abnormal 10-20 Comprehensi ve Internal Medicine Work Phone: Comment on above: [facility] [address] [place], [place], [address] Comprehensive metabolic 2000 panel 7.2 g/dL Normal 6.4-8.2 Comprehensi ve Internal Medicine Work Phone: Comment on above: [facility] [address] [place], [place], [phone] Comprehensive metabolic 2000 panel 3.7 g/dL Normal 3.2-5.0 Comprehensi ve Internal Medicine Work Phone: Comment on above: [facility] [address] [place], [place], [address] Comprehensive metabolic 2000 panel 8 1 Normal 5-15 Comprehensi ve Internal Medicine Work Phone: Comment on above: [facility] [address] [place], [place], [phone] Comprehensive metabolic 2000 panel 3.5 g/dL Normal 2.2-4.2 Comprehensi ve Internal Medicine Work Phone: Comment on above: [facility] [address] [place], [place], [address] Hemoglobin H0yBadpicu By: Fuentes stem Plaster Model And Mold Maker on 05-17-2017 Hemoglobin A1c/Hemoglobin.total mass fraction (Bld) 5.8 % Normal 4.2-6.3 Comprehensiv e Internal Medicine Work Phone: Comment on above: [facility] [address] [place], [place], [phone] MicroalbOrdered By: Augie medina on 05-17-2017 Creatinine mass conc 13.0 {mg/g_CRE} Normal Comprehensive Internal Medicine Work Phone: Comment on above: [facility] [address] [place], [place], [phone] ; will review 05/26 Creatinine mass conc 56.00 mg/dL Normal Com prehensive Internal Medicine Work Phone: Comment on above: [facility] [address] [place], [address] ; will review 05/26 MICROALBUMIN,UR 7.3 mg/L Normal Comprehen count includes the [facility] Internal Medicine Work Phone: UR CREAT 56.00 mg/dL Normal [facility] Internal Medicine Work Phone: Microalb 7.3 mg/L Normal [facility] Internal Medicine Work Phone: Comment on above: [facility] [address] [place], [address] ; will review 05/26 Vitamin D,25 HydroxyOrdered By: Parts Assembler on 05-17-2017 Vitamin D 25-OH 44.6 ng/mL Normal 29.95-100. 01 [facility] Internal Medicine Work Phone: Comment on above: Vitamin D 25(OH) Sta tus Range Deficiency <20 ng/mL (50nmol/L) Insuffciency 20 - 30 ng/mL (50 - 75 nmol/L) Sufficiency 30 - 100 ng/mL (75 - 250 nmol/L) Toxicity >100 ng/mL (>250 nmol/L) Vitamin D,25 Hydroxy 44.6 ng/mL Normal 29.95-1 00. 01 [facility] Internal Medicine Work Phone: Comment on above: Vitamin D 25(OH) Sta tus Range Deficiency <20 ng/mL (50nmol/L) Insuffciency 20 - 30 ng/mL (50 - 75 nmol/L) Sufficiency 30 - 100 ng/mL (75 - 250 nmol/L) Toxicity >100 ng/mL (>250 nmol/L) [facility] [address] [place], [place], [address] CBC W/Diff, AutomatedOrdered By: Parts Assembler on 01-06-2017 Absolute Lymph 1.54 {X10_3/ul} Normal 0.83-4.51 Compr ehensive Internal Medicine Work Phone: Absolute Neut 1.3 {X10_3/uL} Abnormal 2.0-7.7 Compreh ensive Internal Medicine Work Phone: Comment on above: [facility] [address] [place], [address] Basophils/100 WBC (Bld) 1.2 % Abnormal 0-1 [facility] Internal Medicine Work Phone: Comment on above: [facility] [address] [place], [address] Basophils/100 WBC Auto (Bld) 1.2 % Abnormal 0-1 [facility] Internal Medicine Work Phone: Eosinophils/100 WBC (Bld) 3.8 % Normal 0-5 [facility] Internal Medicine Work Phone: Comment on above: [facility] [address] [place], [address] Eosinophils/100 WBC Auto (Bld) 3.8 % Normal 0-5 [facility] Internal Medicine Work Phone: Erythrocyte distribution width Auto Ratio (RBC) 13.6 % Normal 11.6-14.6 [facility] Internal Medicine Work Phone: Erythrocyte distribution width Ratio (RBC) 13.6 % Normal 11.6-14.6 [facility] Internal Medicine Work Phone: Comment on above: [facility] [address] [place], [address] Hematocrit Auto Volume Fraction (Bld) 36.9 % Abnormal 37-47 Comprehens mony Internal Medicine Work Phone: Hematocrit Volume Fraction (Bld) 36.9 % Abnormal 37-47 Comprehensive Internal Medicine Work Phone: Comment on above: [facility] [address] [place], [address] Hemoglobin mass conc (Bld) 12.3 g/dL Normal 12.0-15.0 [facility] Internal Medicine Work Phone: Comment on above: [facility] [address] [place], [address] IM GRAN % 0.000 % Normal 0.0-0.9 Comprehensive Internal Medicine Work Phone: Comment on above: IG% - Immature Granu locytes (promyelocytes, myelocytes andmetamyelocytes) > 1% indicates that a LEFT SHIFT is Present. [facility] [address] [place], [place], [phone] Lymphocytes #/vol (Bld) 1.54 {X10_3/ul} Normal 0.83-4.51 [facility] Internal Medicine Work Phone: Comment on above: [facility] [address] [place], [address] Lymphocytes/100 WBC (Bld) 44.8 % Abnormal 19-41 Comprehensive Internal Medicine Work Phone: Comment on above: [facility] [address] [place], [address] Lymphocytes/100 WBC Auto (Bld) 44.8 % Abnormal 19-41 [facility] Internal Medicine Work Phone: MCH Auto Entitic mass (RBC) 31.2 pg Normal 27.0-32.0 [facility] Internal Medicine Work Phone: MCH Entitic mass (RBC) 31.2 pg Normal 27.0-32.0 [facility] Internal Medicine Work Phone: Comment on above: [facility] [address] [place], [address] MCHC Auto mass conc (RBC) 33.3 {g/gl} Normal 32-36 [facility] Internal Medicine Work Phone: MCHC mass conc (RBC) 33.3 {g/gl} Normal 32-36 [facility] prehensive Internal Medicine Work Phone: Comment on above: [facility] [address] [place], [address] MCV Auto Entitic volume (RBC) 93.7 fL Normal 81-99 Comprehensive Internal Medicine Work Phone: MCV Entitic volume (RBC) 93.7 fL Normal 81-99 [facility] Internal Medicine Work Phone: Comment on above: [facility] [address] [place], [address] Monocytes/100 WBC Auto (Bld) 13.7 % Abnormal 0-10 Comprehensive Internal Medicine Work Phone: Comment on above: [facility] [address] [place], [address] Neutrophils/100 WBC (Bld) 36.5 % Abnormal 47-70 [facility] Internal Medicine Work Phone: Comment on above: [facility] [address] [place], [address] Neutrophils/100 WBC Auto (Bld) 36.5 % Abnormal 47-70 [facility] Internal Medicine Work Phone: Platelet mean volume Auto Entitic volume (Bld) 10.6 fL Normal 6.2-12.0 [facility] Internal Medicine Work Phone: Platelet mean volume Entitic volume (Bld) 10.6 fL Normal 6.2-12.0 Comprehensi Internal Medicine Work Phone: Comment on above: [facility] [address] [place], [address] Platelets #/vol (Bld) 180 10*3/uL Normal 150-450 Co [facility] Internal Medicine Work Phone: Comment on above: [facility] [address] [place], [address] Platelets Auto #/vol (Bld) 180 10*3/uL Normal 150-450 Comprehensive Internal Medicine Work Phone: RBC #/vol (Bld) 3.94 {M/mm3} Abnormal 4.2-5.4 Compreh ensive Internal Medicine Work Phone: Comment on above: [facility] [address] [place], [address] RBC Auto #/vol (Bld) 3.94 {M/mm3} Abnormal 4.2-5.4 [facility] Internal Medicine Work Phone: RDW SD 45.4 fL Abnormal 35.1-43.9 Comprehensive Internal Medicine Work Phone: Comment on above: [facility] [address] [place], [place], [phone] WBC #/vol (Bld) 3.4 10*3/uL Abnormal 4.4-11.0 Comprehe nsive Internal Medicine Work Phone: Comment on above: [facility] [address] [place], [place], [address] WBC Auto #/vol (Bld) 3.4 10*3/uL Abnormal 4.4-11.0 [facility] prehensive Internal Medicine Work Phone: Comprehensive Metabolic Prof ilOrdered By: Parts Assembler on 01-06-2017 Comprehensive metabolic 2000 panel 0.74 mg/dL Normal 0.55-1.02 Comprehensi ve Internal Medicine Work Phone: Comment on above: The validity of the calculated GFR AND GFRAA in patients over70 years has not been determined. Clinical correlation isessential. [facility] [address] [place], [place], [phone] Comprehensive metabolic 2000 panel 142 mmol/L Normal 136-145 Comprehensi ve Internal Medicine Work Phone: Comment on above: [facility] [address] [place], [place], [phone] Comprehensive metabolic 2000 panel 108 mmol/L Abnormal 98-107 Comprehensi ve Internal Medicine Work Phone: Comment on above: [facility] [address] [place], [place], [address] Comprehensive metabolic 2000 panel 25.0 mmol/L Normal 21.0-32.0 Comprehensi ve Internal Medicine Work Phone: Comment on above: [facility] [address] [place], [place], [phone] Comprehensive metabolic 2000 panel 9 1 Normal 5-15 Comprehensi ve Internal Medicine Work Phone: Comment on above: [facility] [address] [place], [place], [address] Comprehensive metabolic 2000 panel 81 mL/min Normal Comprehensi ve Internal Medicine Work Phone: Comment on above: Non- GFR Calc [facility] [address] [place], [place], [address] Comprehensive metabolic 2000 panel 98 mL/min Normal Comprehensi ve Internal Medicine Work Phone: Comment on above: GFR Calc [facility] [address] [place], [place], [phone] Comprehensive metabolic 2000 panel 30.9 {RATIO} Abnormal 10-20 Comprehensi ve Internal Medicine Work Phone: Comment on above: [facility] [address] [place], [address] Comprehensive metabolic 2000 panel 6.8 g/dL Normal 6.4-8.2 Comprehensi ve Internal Medicine Work Phone: Comment on above: [facility] [address] [place], [place], [address] Comprehensive metabolic 2000 panel 3.6 g/dL Normal 3.4-5.0 Comprehensi ve Internal Medicine Work Phone: Comment on above: Please note revised Albumin AND Globulin reference rangeeffective 2016. [facility] [address] [place], [place], [address] Comprehensive metabolic 2000 panel 3.2 g/dL Normal 2.2-4.2 Comprehensi ve Internal Medicine Work Phone: Comment on above: [facility] [address] [place], [address] Comprehensive metabolic 2000 panel 1.1 {RATIO} Normal 0.9-2.4 Comprehensi ve Internal Medicine Work Phone: Comment on above: [facility] [address] [place], [place], [address] Comprehensive metabolic 2000 panel 8.5 mg/dL Normal 8.5-10.1 Comprehensi ve Internal Medicine Work Phone: Comment on above: [facility] [address] [place], [place], [address] Comprehensive metabolic 2000 panel 28 U/L Normal 15-37 Comprehensi ve Internal Medicine Work Phone: Comment on above: [facility] [address] [place], [address] Comprehensive metabolic 2000 panel 21 U/L Normal 12-78 Comprehensi ve Internal Medicine Work Phone: Comment on above: [facility] [address] [place], [address] Comprehensive metabolic 2000 panel 47 U/L Normal 45-117 Comprehensi ve Internal Medicine Work Phone: Comment on above: [facility] [address] [place], [place], [phone] Comprehensive metabolic 2000 panel 3.9 mmol/L Normal 3.5-5.1 Comprehensi ve Internal Medicine Work Phone: Comment on above: [facility] [address] [place], [address] Comprehensive metabolic 2000 panel 83 mg/dL Normal 70-110 Comprehensi ve Internal Medicine Work Phone: Comment on above: [facility] [address] [place], [address] Comprehensive metabolic 2000 panel 23 mg/dL Abnormal 7-18 Comprehensi ve Internal Medicine Work Phone: Comment on above: [facility] [address] [place], [place], [address] Comprehensive metabolic 2000 panel 0.70 mg/dL Normal 0.20-1.00 Comprehensi ve Internal Medicine Work Phone: Comment on above: [facility] [address] [place], [place], [phone] Hemoglobin [id number] By: Sy stem Plaster Model And Mold Maker on 01-06-2017 Hemoglobin A1c/Hemoglobin.total mass fraction (Bld) 5.7 % Normal 4.2-6.3 Comprehensiv e Internal Medicine Work Phone: Comment on above: [facility] [address] [place], [place], [address] Lipid ProfileOrdered By: Brianne tem Plaster Model And Mold Maker on 01-06-2017 Cholesterol in HDL mass conc 118 mg/dL Normal Comprehensive Internal Medicine Work Phone: Comment on above: The drugs N-Acetylcy steine and Metamizole may falselydepress this assay. Reference Range HDL <40 mg/dL Low HDL Cholesterol HDL >or= 60 mg/dL High HDL Cholesterol [facility] [address] [place], [place], [phone] Cholesterol in LDL mass conc 59 mg/dL Normal 0-130 [facility] Internal Medicine Work Phone: Cholesterol in LDL mass conc 59 mg/dL Normal 0-130 [facility] Internal Medicine Work Phone: Comment on above: [facility] [address] [place], [place], [phone]) Cholesterol in VLDL mass conc 8 mg/dL Normal 5-40 [facility] Internal Medicine Work Phone: Comment on above: [facility] [address] [place], [place], [phone] Cholesterol mass conc 185 mg/dL Normal Com prehensive Internal Medicine Work Phone: Comment on above: <200 mg/dL Desirable 200-240 mg/dL Borderline >240 mg/dL High Risk [facility] [address] [place], [place], [phone](772) Triglyceride mass conc 42 mg/dL Normal [facility] Internal Medicine Work Phone: Comment on above: The drugs N-Acetylcy steine and Metamizole may falselydepress this assay.Serum Triglycerides Reference Interval Normal <150 mg/dL Borderline high 150 - 199 mg/dL High 200 - 499 mg/dL Very High > or = 500 mg/dL [facility] [address] [place], [place], [address] Lipid Profile 8 mg/dL Normal 5-40 [facility] Internal Medicine Work Phone: Comment on above: [facility] [address] [place], [place], [address] Vitamin D,25 HydroxyOrdered By: Parts Assembler on 01-06-2017 Vitamin D 25-OH 41.3 ng/mL Normal [facility] Internal Medicine Work Phone: Comment on above: Vitamin D 25(OH) Sta tus Range Deficiency <20 ng/mL (50nmol/L) Insuffciency 20 - 30 ng/mL (50 - 75 nmol/L) Sufficiency 30 - 100 ng/mL (75 - 250 nmol/L) Toxicity >100 ng/mL (>250 nmol/L) Vitamin D,25 Hydroxy 41.3 ng/mL Normal Comp rehensive Internal Medicine Work Phone: Comment on above: Vitamin D 25(OH) Sta tus Range Deficiency <20 ng/mL (50nmol/L) Insuffciency 20 - 30 ng/mL (50 - 75 nmol/L) Sufficiency 30 - 100 ng/mL (75 - 250 nmol/L) Toxicity >100 ng/mL (>250 nmol/L) [facility] [address] [place], [place], [address] CBC W/AUTO DIFF WBC (08960)O rdered By: Parts Assembler on 08-22-2016 Basophils #/vol (Bld) 0.0 {x10E3/uL} Normal 0.0-0.2 [facility] Medicine Work Phone: Comment on above: PATIENT NOT FASTINGP ERFORMED BY: [facility] Fgkqmn5580 [facility] [id number] Information: [facility] NURSE DRAW Basophils (Bld) [#/Vol] 0.0 10*3/uL Normal 0.0-0.2 [facility]; [facility] Medicine Work Phone: Comment on above: PATIENT NOT FASTINGP ERFORMED BY: LIT Luonglin6370 [facility] [id number] Information: [facility] NURSE DRAW Basophils Auto #/vol (Bld) 0.0 {x10E3/uL} Normal 0.0-0.2 [facility] Work Phone: Basophils/100 WBC (Bld) 1 % Normal [facility] Medicine Work Phone: Comment on above: PATIENT NOT FASTINGP ERFORMED BY: [address] [id number] Information: [facility] NURSE DRAW Basophils/100 WBC Auto (Bld) 1 % Normal [facility] Work Phone: Eosinophils #/vol (Bld) 0.2 {x10E3/uL} Normal 0.0-0.4 [facility] Work Phone: Comment on above: PATIENT NOT FASTINGP ERFORMED BY: [address] [id number] Information: [facility] NURSE DRAW Eosinophils (Bld) [#/Vol] 0.2 10*3/uL Normal 0.0-0.4 [facility]; [facility] Work Phone: Comment on above: PATIENT NOT FASTINGP ERFORMED BY: [address] [id number] Information: [facility] NURSE DRAW Eosinophils Auto #/vol (Bld) 0.2 {x10E3/uL} Normal 0.0-0.4 [facility] Work Phone: Eosinophils/100 WBC (Bld) 4 % Normal [facility] Medicine Work Phone: Comment on above: PATIENT NOT FASTINGP ERFORMED BY: [address] [id number] Information: [facility] NURSE DRAW Eosinophils/100 WBC Auto (Bld) 4 % Normal [facility] Work Phone: Erythrocyte distribution width Auto Ratio (RBC) 13.8 % Normal 12.3-15.4 [facility] Work Phone: Erythrocyte distribution width Ratio (RBC) 13.8 % Normal 12.3-15.4 [facility] Work Phone: Comment on above: PATIENT NOT FASTINGP ERFORMED BY: LIT [place] [id number] [facility] [id number] Information: [facility] NURSE DRAW Hematocrit Auto Volume Fraction (Bld) 38.4 % Normal 34.0-46.6 [facility] Internal Medicine Work Phone: Hematocrit Volume Fraction (Bld) 38.4 % Normal 34.0-46.6 Comprehensive Internal Medicine Work Phone: Comment on above: PATIENT NOT FASTINGP ERFORMED BY: LIT Luonglin6370 [facility] [id number] Information: [facility] NURSE DRAW Hemoglobin mass conc (Bld) 12.6 g/dL Normal 11.1-15.9 [facility] Work Phone: Comment on above: PATIENT NOT FASTINGP ERFORMED BY: LIT [facility] HospitalDimas LuongFcwrvy0477 [facility] [id number] Information: [facility] NURSE DRAW Immature granulocytes #/vol (Bld) 0.0 {x10E3/uL} Normal 0.0-0.1 [facility] Work Phone: Comment on above: PATIENT NOT FASTINGP ERFORMED BY: LIT [facility] HospitalCoSarah Ville [id number] [facility] [id number] Information: [facility] NURSE DRAW Immature granulocytes (Bld) [#/Vol] 0.0 10*3/uL Normal 0.0-0.1 [facility]; [facility] Work Phone: Comment on above: PATIENT NOT FASTINGP ERFORMED BY: LIT LabDomoniquerp Tfcuch[address]in [place] [id number] Information: [facility] NURSE DRAW Immature granulocytes/100 WBC (Bld) 0 % Normal [facility] Work Phone: Comment on above: PATIENT NOT FASTINGP ERFORMED BY: [place] [id number] [facility] [id number] Information: [facility] NURSE DRAW Lymphocytes #/vol (Bld) 1.6 {x10E3/uL} Normal 0.7-3.1 [facility] Work Phone: Comment on above: PATIENT NOT FASTINGP ERFORMED BY: [address] [id number] Information: [facility] NURSE DRAW Lymphocytes (Bld) [#/Vol] 1.6 10*3/uL Normal 0.7-3.1 [facility]; [facility] Work Phone: Comment on above: PATIENT NOT FASTINGP ERFORMED BY: [place] [id number] [facility] [id number] Information: [facility] NURSE DRAW Lymphocytes Auto #/vol (Bld) 1.6 {x10E3/uL} Normal 0.7-3.1 [facility] Work Phone: Lymphocytes/100 WBC (Bld) 39 % Normal [facility] Work Phone: Comment on above: PATIENT NOT FASTINGP ERFORMED BY: [place] [id number] [facility] [id number] Information: [facility] NURSE DRAW Lymphocytes/100 WBC Auto (Bld) 39 % Normal [facility] Work Phone: MCH Auto Entitic mass (RBC) 30.0 pg Normal 26.6-33.0 [facility] Work Phone: MCH Entitic mass (RBC) 30.0 pg Normal 26.6-33.0 [facility] Work Phone: Comment on above: PATIENT NOT FASTINGP ERFORMED BY: [place] [id number] [facility] [id number] Information: [facility] NURSE DRAW MCHC Auto mass conc (RBC) 32.8 g/dL Normal 31.5-35.7 [facility] Work Phone: MCHC mass conc (RBC) 32.8 g/dL Normal 31.5-35.7 Comp rehensive Internal Medicine Work Phone: Comment on above: PATIENT NOT FASTINGP ERFORMED BY: LIT [address] [id number] Information: [facility] NURSE DRAW MCV Auto Entitic volume (RBC) 91 fL Normal 79-97 [facility] Work Phone: MCV Entitic volume (RBC) 91 fL Normal 79-97 [facility] Work Phone: Comment on above: PATIENT NOT FASTINGP ERFORMED BY: LIT [facility] [address] [id number] Information: [facility] NURSE DRAW Monocytes #/vol (Bld) 0.4 {x10E3/uL} Normal 0.1-0.9 [facility] Work Phone: Comment on above: PATIENT NOT FASTINGP ERFORMED BY: LIT [address] [id number] Information: [facility] NURSE DRAW Monocytes (Bld) [#/Vol] 0.4 10*3/uL Normal 0.1-0.9 [facility]; [facility] Work Phone: Comment on above: PATIENT NOT FASTINGP ERFORMED BY: [address] [id number] Information: [facility] NURSE DRAW Monocytes Auto #/vol (Bld) 0.4 {x10E3/uL} Normal 0.1-0.9 [facility] Work Phone: Monocytes/100 WBC (Bld) 9 % Normal [facility] Work Phone: Comment on above: PATIENT NOT FASTINGP ERFORMED BY: LIT [address] [id number] Information: [facility] NURSE DRAW Monocytes/100 WBC Auto (Bld) 9 % Normal [facility] Work Phone: Neutrophils #/vol (Bld) 2.0 {x10E3/uL} Normal 1.4-7.0 [facility] Work Phone: Comment on above: PATIENT NOT FASTINGP ERFORMED BY: LIT Luonglin6370 [facility] [id number] Information: [facility] NURSE DRAW Neutrophils (Bld) [#/Vol] 2.0 10*3/uL Normal 1.4-7.0 [facility]; [facility] Work Phone: Comment on above: PATIENT NOT FASTINGP ERFORMED BY: LIT Luonglin6370 [facility] [id number] Information: [facility] NURSE DRAW Neutrophils Auto #/vol (Bld) 2.0 {x10E3/uL} Normal 1.4-7.0 [facility] Work Phone: Neutrophils/100 WBC (Bld) 47 % Normal [facility] Work Phone: Comment on above: PATIENT NOT FASTINGP ERFORMED BY: LIT Luonglin6370 [facility] [id number] Information: [facility] NURSE DRAW Neutrophils/100 WBC Auto (Bld) 47 % Normal [facility] Work Phone: Platelets #/vol (Bld) 203 {x10E3/uL} Normal 150-379 [facility] Work Phone: Comment on above: PATIENT NOT FASTINGP ERFORMED BY: LIT [facility] Kgqybk8702 [facility] [id number] Information: [facility] NURSE DRAW Platelets (Bld) [#/Vol] 203 10*3/uL Normal 150-379 [facility]; [facility] Work Phone: Comment on above: PATIENT NOT FASTINGP ERFORMED BY: LIT LabCodarcy LuongBiboor4542 [facility] [id number] Information: [facility] NURSE DRAW Platelets Auto #/vol (Bld) 203 {x10E3/uL} Normal 150-379 [facility] Work Phone: RBC #/vol (Bld) 4.20 {x10E6/uL} Normal 3.77-5.28 [facility] Internal Medicine Work Phone: Comment on above: PATIENT NOT FASTINGP ERFORMED BY: Lab[address] [id number] Information: [facility] NURSE DRAW RBC (Bld) [#/Vol] 4.20 10*6/uL Normal 3.77-5.28 [facility] Internal Medicine; [facility] Internal Medicine Work Phone: Comment on above: PATIENT NOT FASTINGP ERFORMED BY: [address] [id number] Information: [facility] NURSE DRAW RBC Auto #/vol (Bld) 4.20 {x10E6/uL} Normal 3.77-5.28 [facility] Internal Medicine Work Phone: WBC #/vol (Bld) 4.2 {x10E3/uL} Normal 3.4-10.8 [facility] Internal Medicine Work Phone: Comment on above: PATIENT NOT FASTINGP ERFORMED BY: [address] [id number] Information: [facility] NURSE DRAW WBC (Bld) [#/Vol] 4.2 10*3/uL Normal 3.4-10.8 [facility] Internal Medicine; [facility] Internal Medicine Work Phone: Comment on above: PATIENT NOT FASTINGP ERFORMED BY: [address] [id number] Information: [facility] NURSE DRAW WBC Auto #/vol (Bld) 4.2 {x10E3/uL} Normal 3.4-10.8 [facility] Internal Medicine Work Phone: METABOLIC PANEL, COMPREHENSI VE ([id number])Ordered By: Parts Assembler on 08-22-2016 Albumin mass conc 4.2 g/dL Normal 3.5-4.8 [facility] Internal Medicine Work Phone: Comment on above: PATIENT NOT FASTINGP ERFORMED BY: LIT LabCodarcy GallardoQyiykd1763 [address]za RoadDublin [place] [id number] Albumin/Globulin mass ratio 1.6 {ratio} Normal 1.2-2.2 [facility] Work Phone: Comment on above: PATIENT NOT FASTINGP ERFORMED BY: CB [facility] Lassuo1658 [address] RoadDublin [place] [id number] ALP [Catalytic activity/Vol] 42 U/L Normal 39-117 [facility]; [facility] Internal Medicine Work Phone: Comment on above: PATIENT NOT FASTINGP ERFORMED BY: LIT LabDimas LuongTqvwyo9536 [address]za RoadDublin [place] [id number] ALP enzyme act/vol 42 [iU]/L Normal 39-117 [facility] Internal Medicine Work Phone: Comment on above: PATIENT NOT FASTINGP ERFORMED BY: LIT [facility] Fmpoyh6137 [address] RoadDublin [place] [id number] ALT [Catalytic activity/Vol] 14 U/L Normal 0-32 [facility]; [facility] Internal Medicine Work Phone: Comment on above: PATIENT NOT FASTINGP ERFORMED BY: LIT [facility] Sijuyx7520 [address] RoadDublin [place] [id number] ALT enzyme act/vol 14 [iU]/L Normal 0-32 [facility] Internal Medicine Work Phone: Comment on above: PATIENT NOT FASTINGP ERFORMED BY: CB [facility] Izttlg9460 [address] RoadDublin [place] [id number] AST [Catalytic activity/Vol] 23 U/L Normal 0-40 [facility]; [facility] Internal Medicine Work Phone: Comment on above: PATIENT NOT FASTINGP ERFORMED BY: CB [facility] Ringfm7288 [address] RoadDublin [place] [id number] AST enzyme act/vol 23 [iU]/L Normal 0-40 [facility] Internal Medicine Work Phone: Comment on above: PATIENT NOT FASTINGP ERFORMED BY: LIT [facility] Aybkcj4561 [address] RoadDublin [place] [id number] Bilirubin mass conc 0.8 mg/dL Normal 0.0-1.2 Compr ehensive Internal Medicine Work Phone: Comment on above: PATIENT NOT FASTINGP ERFORMED BY: CB [facility] Svrnuj9933 [address]za RoadDublin [place] [id number] Calcium mass conc 9.0 mg/dL Normal 8.7-10.3 Compreh ensive Internal Medicine Work Phone: Comment on above: PATIENT NOT FASTINGP ERFORMED BY: CB [facility] Jfouyr3233 [address] RoadDublin [place] [id number] Chloride molar conc 103 mmol/L Normal 96-106 Compr ehensive Internal Medicine Work Phone: Comment on above: PATIENT NOT FASTINGP ERFORMED BY: CB [facility] Jwolaa8173 [address] RoadAffinity Health Partnersin [place] [id number] CO2 molar conc 23 mmol/L Normal 18-29 Comprehens mony Internal Medicine Work Phone: Comment on above: PATIENT NOT FASTINGP ERFORMED BY: CB [facility] Jysnvk8174 [address]blin [place] [id number] Creatinine mass conc 0.84 mg/dL Normal 0.57-1.00 Comp [facility] hospitalensive [facility] Work Phone: Comment on above: PATIENT NOT FASTINGP ERFORMED BY: CB [facility] Hjfgth2973 M[address]za RoadECU Health North Hospital [id number] GFR/1.73 sq M predicted among blacks CKD-EPI vol rate/area (S/P/Bld) 79 mL/min/1.73 Normal Comprehensiv e Internal Medicine Work Phone: Comment on above: PATIENT NOT FASTINGP ERFORMED BY: CB [facility] Mfrxtq2139 [address] RoadDublin [place] [id number] GFR/1.73 sq M predicted among non-blacks CKD-EPI vol rate/area (S/P/Bld) 69 mL/min/1.73 Normal [facility] Work Phone: Comment on above: PATIENT NOT FASTINGP ERFORMED BY: LIT [facility] Bzjlbp9365 [address] RoadDublin [place] [id number] Globulin Calculated mass conc (S) 2.6 g/dL Normal 1.5-4.5 [facility] Work Phone: Globulin mass conc (S) 2.6 g/dL Normal 1.5-4.5 [facility] Work Phone: Comment on above: PATIENT NOT FASTINGP ERFORMED BY: CB [facility] Brmzyz8386 [address]za RoadDublin [place] [id number] Glucose mass conc 91 mg/dL Normal 65-99 Compreh ensive Internal Medicine Work Phone: Comment on above: PATIENT NOT FASTINGP ERFORMED BY: CB [facility] Firppa3860 [address] RoadDublin [place] [id number] Potassium molar conc 4.6 mmol/L Normal 3.5-5.2 Comp rehensive Internal Medicine Work Phone: Comment on above: PATIENT NOT FASTINGP ERFORMED BY: LIT [facility] Adqori8347 [address] RoadDublin [place] [id number] Protein mass conc 6.8 g/dL Normal 6.0-8.5 Compreh ensive Internal Medicine Work Phone: Comment on above: PATIENT NOT FASTINGP ERFORMED BY: LIT [facility] Koxaxx8770 [address] RoadDublin [place] [id number] Sodium molar conc 143 mmol/L Normal 134-144 Compreh ensive Internal Medicine Work Phone: Comment on above: PATIENT NOT FASTINGP ERFORMED BY: CB [facility] Eldqcb3387 [address] RoadDublin [place] [id number] Urea nitrogen mass conc 23 mg/dL Normal 8-27 [facility] Work Phone: Comment on above: PATIENT NOT FASTINGP ERFORMED BY: CB [facility] Daofve1781 [address] RoadDublin [place] [id number] Urea nitrogen/Creatinine mass ratio 27 mg/mg Normal 12-28 [facility] Work Phone: Comment on above: PATIENT NOT FASTINGP ERFORMED BY: [facility]CoCap[facility])Unqhig5438 [address] [place] [place] [id number] CBC W/Diff, AutomatedOrdered By: Parts Assembler on 04-09-2014 Absolute Lymph 1.46 {X10_3/ul} Normal 0.83-4.51 Compr ehensive Internal Medicine Work Phone: Absolute Neut 2.2 {X10_3/uL} Normal 2.0-7.7 Compreh ensive Internal Medicine Work Phone: Comment on above: Test performed at:[facility] [address] [place] [address] ; will review at 2/18 appt Basophils/100 WBC (Bld) 1.6 % Abnormal 0-1 [facility] Work Phone: Comment on above: Test performed at:[facility] [address] [place] [address] ; will review at 2/18 appt Basophils/100 WBC Auto (Bld) 1.6 % Abnormal 0-1 [facility] Work Phone: Eosinophils/100 WBC (Bld) 3.9 % Normal 0-5 [facility] Work Phone: Comment on above: Test performed at:[facility] G[address] [place] [address] ; will review at 2/18 appt Eosinophils/100 WBC Auto (Bld) 3.9 % Normal 0-5 [facility] Work Phone: Erythrocyte distribution width Auto Ratio (RBC) 13.2 % Normal 11.6-14.6 [facility] Work Phone: Erythrocyte distribution width Ratio (RBC) 13.2 % Normal 11.6-14.6 [facility] Work Phone: Comment on above: Test performed at:[facility] [address] [place] [address] ; will review at 2/18 appt Hematocrit Auto Volume Fraction (Bld) 38.7 % Normal 37-47 Comprehens mony Internal Medicine Work Phone: Hematocrit Volume Fraction (Bld) 38.7 % Normal 37-47 [facility] Work Phone: Comment on above: Test performed at:[facility] N[address] [place] [address] ; will review at 2/18 appt Hemoglobin mass conc (Bld) 12.6 g/dL Normal 12.0-15.0 [facility] Work Phone: Comment on above: Test performed at:[facility] [address] [place] [address] ; will review at 2/18 appt IM GRAN % 0.000 % Normal 0.0-0.9 [facility] Work Phone: Comment on above: IG% - Immature Granu locytes (promyelocytes, myelocytes andmetamyelocytes) > 1% indicates that a LEFT SHIFT is Present. Test performed at:[facility] [address] [place], [place] [id number] ; will review at 2/18 appt Lymphocytes #/vol (Bld) 1.46 {X10_3/ul} Normal 0.83-4.51 [facility] Work Phone: Comment on above: Test performed at:[facility] [address] [place], [place] [id number] ; will review at 2/18 appt Lymphocytes/100 WBC (Bld) 33.6 % Normal 19-41 [facility] Work Phone: Comment on above: Test performed at:[facility] [address] [place] [address] ; will review at 2/18 appt Lymphocytes/100 WBC Auto (Bld) 33.6 % Normal 19-41 [facility] Work Phone: MCH Auto Entitic mass (RBC) 30.3 pg Normal 27.0-32.0 [facility] Work Phone: MCH Entitic mass (RBC) 30.3 pg Normal 27.0-32.0 [facility] Work Phone: Comment on above: Test performed at:[facility] [address]sb[address] [place] [id number] ; will review at 2/18 appt MCHC Auto mass conc (RBC) 32.6 {g/gl} Normal 32-36 [facility] Work Phone: MCHC mass conc (RBC) 32.6 {g/gl} Normal 32-36 [facility] prehensive Internal Medicine Work Phone: Comment on above: Test performed at:[facility] [address] [place], [place] [address] ; will review at 2/18 appt MCV Auto Entitic volume (RBC) 93.0 fL Normal 81-99 [facility] Work Phone: MCV Entitic volume (RBC) 93.0 fL Normal 81-99 [facility] Work Phone: Comment on above: Test performed at:[facility] [address]ztnyqedu[address] [place], [place] [address] ; will review at 2/18 appt Monocytes/100 WBC Auto (Bld) 10.8 % Abnormal 0-10 [facility] Work Phone: Comment on above: Test performed at:[facility] [address]xyqmjmbk[address] [place] [address] ; will review at 2/18 appt Neutrophils/100 WBC (Bld) 50.1 % Normal 47-70 [facility] Work Phone: Comment on above: Test performed at:[facility] [address] [place], [place] [id number] ; will review at 2/18 appt Neutrophils/100 WBC Auto (Bld) 50.1 % Normal 47-70 [facility] Work Phone: Platelet mean volume Auto Entitic volume (Bld) 10.5 fL Normal 6.2-12.0 [facility] Work Phone: Platelet mean volume Entitic volume (Bld) 10.5 fL Normal 6.2-12.0 Comprehensi Internal Medicine Work Phone: Comment on above: Test performed at:[facility] [address] [place] [address] ; will review at 2/18 appt Platelets #/vol (Bld) 187 10*3/uL Normal 150-450 [facility] Internal Medicine Work Phone: Comment on above: Test performed at:[facility] [address] [place] [address] ; will review at 2/18 appt Platelets Auto #/vol (Bld) 187 10*3/uL Normal 150-450 [facility] Work Phone: RBC #/vol (Bld) 4.16 {M/mm3} Abnormal 4.2-5.4 Compreh [facility] Internal [facility] Work Phone: Comment on above: Test performed at:[facility] [address] [place] [address] ; will review at 2/18 appt RBC Auto #/vol (Bld) 4.16 {M/mm3} Abnormal 4.2-5.4 [facility] Internal Medicine Work Phone: RDW SD 43.8 fL Normal 35.1-43.9 [facility] Internal Medicine Work Phone: Comment on above: Test performed at:[facility] [address] [place] [address] ; will review at 2/18 appt WBC #/vol (Bld) 4.4 10*3/uL Normal 4.4-11.0 Comprehe [facility] Internal Medicine Work Phone: Comment on above: Test performed at:[facility] [address] [place], [place] [id number] ; will review at 2/18 appt WBC Auto #/vol (Bld) 4.4 10*3/uL Normal 4.4-11.0 [facility] prehensive Internal Medicine Work Phone: Comprehensive Metabolic Prof ilOrdered By: Parts Assembler on 04-09-2014 Albumin mass conc 3.6 g/dL Normal 3.4-5.0 Compreh ensive Internal Medicine Work Phone: Comment on above: Test performed at:[facility] [address] [place] [address] Albumin/Globulin mass ratio 1.1 {RATIO} Normal 0.9-2.4 [facility] Work Phone: Comment on above: Test performed at:[facility] [address] [place] [address] ALT enzyme act/vol 25 U/L Normal 12-78 [facility] Work Phone: Comment on above: Test performed at:[facility] [address] [place] [address] AST enzyme act/vol 22 U/L Normal 15-37 [facility] Internal [facility] Work Phone: Comment on above: Test performed at:[facility] [address] [place] [address] Bilirubin mass conc 0.50 mg/dL Normal 0.00-4.00 [facility] Work Phone: Comment on above: Test performed at:[facility] [address] [place] [address] Calcium mass conc 8.8 mg/dL Normal 8.5-10.1 Compreh [facility] Internal [facility] Work Phone: Comment on above: Test performed at:[facility] [address] [place] [address] Chloride molar conc 107 mmol/L Normal 98-107 Compr ensive Internal Medicine Work Phone: Comment on above: Test performed at:[facility] [address]nc[address] [place] [address] CO2 molar conc 27.0 mmol/L Normal 21.0-32.0 Comprehen sive Internal Medicine Work Phone: Comment on above: Test performed at:[facility] [address] [place] [address] Creatinine mass conc 0.8 mg/dL Normal 0.6-1.0 Comp rehensive Internal Medicine Work Phone: Comment on above: Test performed at:[facility] [address] [place] [address] Globulin Calculated mass conc (S) 3.3 g/dL Normal 2.7-4.2 [facility] Work Phone: Globulin mass conc (S) 3.3 g/dL Normal 2.7-4.2 [facility] Work Phone: Comment on above: Test performed at:[facility] [address] [place] [address] Glucose mass conc 78 mg/dL Normal 70-110 Compreh ensive Internal Medicine Work Phone: Comment on above: Test performed at:[facility] [address] [place] [address] Potassium molar conc 4.4 mmol/L Normal 3.5-5.1 Comp rehensive Internal Medicine Work Phone: Comment on above: Test performed at:[facility] [address] [place] [address] Protein mass conc 6.9 g/dL Normal 6.4-8.2 Compreh ensive Internal Medicine Work Phone: Comment on above: Test performed at:[facility] [address] [place] [address] Sodium molar conc 140 mmol/L Normal 136-145 Compreh ensive Internal Medicine Work Phone: Comment on above: Test performed at:[facility] [address]vcoqx[address] [place], [place] [id number] Urea nitrogen mass conc 24 mg/dL Abnormal 7-18 [facility] Work Phone: Comment on above: Test performed at:[facility] [address] [place] [address] Comprehensive Metabolic Profil 6 1 Normal 5-15 [facility] Work Phone: Comment on above: Test performed at:[facility] [address] [place] [address] Comprehensive Metabolic Profil 1.1 {RATIO} Normal 0.9-2.4 [facility] Work Phone: Comprehensive Metabolic Profil 55 U/L Normal 50-136 [facility] Work Phone: Comment on above: Test performed at:[facility] [address] [place], [place] [address] [facility] Metabolic Profil 30.0 {RATIO} Abnormal 10-20 [facility] Work Phone: Comment on above: Test performed at:[facility] [address] [place] [address] Comprehensive Metabolic Profil 3.3 g/dL Normal 2.7-4.2 [facility] Work Phone: Comment on above: Test performed at:[facility] [address] [place] [address] Comprehensive Metabolic Profil 6.9 g/dL Normal 6.4-8.2 [facility] Work Phone: Comment on above: Test performed at:[facility] [address] [place], [place] [id number] Thyroid Stim Hormone (TSH)Or dered By: Parts Assembler on 04-09-2014 Thyrotropin Qn 1.59 {uIU/mL} Normal 0.358-3.74 Compreh ensive Internal Medicine Work Phone: Comment on above: Test performed at:[facility] [address] [place], [place] [address] Vitamin D,25 HydroxyOrdered By: Parts Assembler on 04-09-2014 Vitamin D 25-OH 34.1 ng/mL Normal Comprehen sive Internal Medicine Work Phone: Comment on above: Vitamin D 25(OH) Sta tus Range Deficiency <20 ng/mL (50nmol/L) Insuffciency 20 - 30 ng/mL (50 - 75 nmol/L) Sufficiency 30 - 100 ng/mL (75 - 250 nmol/L) Toxicity >100 ng/mL (>250 nmol/L) Vitamin D,25 Hydroxy 34.1 ng/mL Normal Comp rehensive Internal Medicine Work Phone: Comment on above: Vitamin D 25(OH) Sta tus Range Deficiency <20 ng/mL (50nmol/L) Insuffciency 20 - 30 ng/mL (50 - 75 nmol/L) Sufficiency 30 - 100 ng/mL (75 - 250 nmol/L) Toxicity >100 ng/mL (>250 nmol/L) Test performed at:[facility] Yxfjmahcip2072 [place], [place] [address] HPV automatic (00293)Ordered By: Parts Assembler on 08-20-2012 Microscopic observation Other stain Nom (Unsp spec) . Normal Comprehens mony Internal Medicine Work Phone: Comment on above: Source.............C ervical;EndocervicalNo. of containers..01 CYTYC Thin Prep VialPATIENT NOT FASTINGPERFORMED BY: WB [employer] Technologies[address] [id number] BY: =G [employer] [id number] BY: BN LabCo[address] [id number] Information: [id number] Pathology report final diagnosis Narrative [facility] Normal Comprehensive [facility] Work Phone: Comment on above: NEGATIVE FOR INTRAEP ITHELIAL LESION AND MALIGNANCY.CELLULAR CHANGES ASSOCIATED WITH ATROPHY ARE PRESENT.THIS SPECIMEN WAS RESCREENED PART OF OUR INTERPRETATIVE DANCER PROGRAM.Satisfactory for evaluation. Endocervical and/or squamous metaplasticcells (endocervical component) are present.V73.81 ; Special screening examination, human papillomavirus [HPV]René Beck, Rn Observation (ASCP)Aundrea Larsen, Supervisory Rn Observation (ASCP) Source.............C ervical;EndocervicalNo. of containers..01 CYTYC Thin Prep VialPATIENT NOT FASTINGPERFORMED BY: WB LabPatientFocus120 [facility] CliniczaSynGenrfox [facility] W [id number] BY: =G LabGI-ViewOyynzsfdsl734 [facility] CliniczaSynGenrlessaint barnab[facility] [place] [id number] BY: [facility] [id number] Information: [id number] HPV automatic (76406) PAPSMR Normal [facility] Springsensive [facility] Work Phone: Comment on above: The Pap smear is a s creening test designed to aid in the detection ofpremalignant and malignant conditions of the uterine cervix. It is not adiagnostic procedure and should not be used as the sole means of detectingcervical cancer. Both false-positive and false-negative reports do occur. .This liquid based ThinPrep(R) pap test was screened with theuse of an image guided system. Source.............C ervical;EndocervicalNo. of containers..01 CYTYC Thin Prep VialPATIENT NOT FASTINGPERFORMED BY: LabPatientFocus120 [facility] CenterSynGenrfox [facility] W [id number] BY: =G LabGI-ViewBugaihfkde868 [facility] CliniczaSynGenrlessaint barnab[facility] [place] [id number] BY: [facility] [id number] Information: [id number] HPV, low volume rfxOrdered B y: Parts Assembler on 08-20-2012 HPV 16+18+31+33+35+39+45+ 51+52+56+58+59+66+68 DNA Probe+sig amp Ql (Cvx) Negative Normal [facility] Work Phone: Comment on above: This test detects fo urteen high-risk HPV types (16,18,31,33,35,39,45,51,52,56,58,59,66,68) without differentiation. Source.............C ervical;EndocervicalNo. of containers..01 CYTYC Thin Prep VialPATIENT NOT FASTINGPERFORMED BY: WB [facility] [address] [id number] BY: =G [facility] [address] [id number] BY: BN [facility] Mmzybziopj7651 [facility] [id number] BILAT SCRN DIGITAL & CADOrde red By: Parts Assembler on 08-07-2012 BILAT SCRN DIGITAL & CAD See Note Normal [facility] Work Phone: Comment on above: MAMMOGRAPHY - BILATE RAL SCREENING REASON FOR EXAM: Female, 71 years old. Routine annual screeningexamination. PERTINENT HISTORY: Non-contributory. TECHNIQUE: Digital examination. Mediolateral oblique (MLO) andcraniocaudad (CC) views of both breasts were obtained. CAD: CAD wasperformed on this study. COMPARISON: Comparison is made with prior study dated August 04, 2011 andJuly 29, 2010. FINDINGS:The breast composition is heterogeneously dense - ranging from 51% to 75%of the breast tissue. There are no dominant masses or suspicious calcifications. No other significant abnormalities are identified. There has been nosignificant change since the prior study. IMPRESSION:Stable bilateral screening mammogram. Yearly follow-up recommended. (A) ASSESSMENT CATEGORY:BIRADS Category 2: Benign finding(s). A letter regarding these resultswill be sent to the patient by the facility within 30 days. Approximately 10% of breast cancers are not detected by mammography. Anormal mammogram should not delay biopsy of a clinically suspiciousabnormality. Signed:Graham Rivera M.D.August 07, 2012 at 10:14:17 AM [id number] Signed GP/GP If you are the referring physician and would like to consult with theradiologist who provided this interpretation, please contact Lamar Xiong at [phone]. If this radiologist is unavailable, youwill be directed to another radiologist to assist. If you are a patient with a question regarding this report, pleasecontactyour referring physician directly. Professional Interpretation Provided By: [employer], Phone , These documents contain legally protected and confidential healthinformation intended only for the use of the individual or entity namedabove. If you are not the intended recipient, you are hereby notifiedthatany disclosure, copying, distribution, or other use of these documents isstrictly prohibited. If you have received this information in error,pleasenotify the sender immediately and arrange for the return or destructionofthese documents. Dictated on 08/07/12 1014 by Kari Rivera MDranscribed on 08/07/12 1016 by ITS IMPORTSign by Graham Rivera MD on 08/07/12 1017 Sign by: Graham Rivera MD LIVEROrdered By: Augie patel on 07-24-2012 LIVER See Note Normal [facility] Work Phone: Comment on above: PROCEDURE: ABDOMINAL ULTRASOUND - RIGHT UPPER QUADRANT REASON FOR VISIT: Female, 71 years old. Follow-up of dilated ducts. TECHNIQUE: Ultrasound evaluation of the right upper quadrant wasperformedwith real-time and static perkins-scale imaging. TECHNICAL QUALITY: Adequate. COMPARISON: 10/10/11 FINDINGS: No abnormal echoes are seen within the gallbladder lumen. Its wallmeasures1.2 mm in thickness. There is minimal intrahepatic ductal dilatation. Theappearance is similar to the previous study. There is a focal lesion ofdecreased echogenicity with no internal echoes and with a thin wall intheliver measuring 8 x 6 x 6 mm. I can see this on review of the previousstudy and it is unchanged. This represents a simple cyst. The pancreas appears of normal size and echogenicity. The right kidney measured 10.6 cm length. No hydronephrosis is seen.Cortical thickness is 1.0 cm. IMPRESSION:1. Minimal dilatation of the intrahepatic biliary tree. Findings aresimilar to the previous study. 2. Stable appearance of small hepatic cyst. Signed:Regulo Cochran M.D.July 24, 2012 at 4:50:04 PM [phone] Signed RU/RU If you are the referring physician and would like to consult with theradiologist who provided this interpretation, please contact Lamar Dubois at [phone]. If this radiologist is unavailable, youwillbe directed to another radiologist to assist. If you are a patient with a question regarding this report, pleasecontactyour referring physician directly. Professional Interpretation Provided By: [employer], Phone , These documents contain legally protected and confidential healthinformation intended only for the use of the individual or entity namedabove. If you are not the intended recipient, you are hereby notifiedthatany disclosure, copying, distribution, or other use of these documents isstrictly prohibited. If you have received this information in error,pleasenotify the sender immediately and arrange for the return or destructionofthese documents. Dictated on 07/24/121649 by Regulo CochranTranscribed on 07/24/121654 by ITS IMPORTSign by Regulo Cochran on 07/24/121655 Sign by: Regulo Cochran CBCMDOrdered By: Augie patel on 06-28-2012 Erythrocyte distribution width Auto Ratio (RBC) 13.0 % Normal 11.6-14.6 [facility] Work Phone: Erythrocyte distribution width Ratio (RBC) 13.0 % Normal 11.6-14.6 [facility] Work Phone: Hematocrit Auto Volume Fraction (Bld) 38.6 % Normal 37-47 [facility] Work Phone: Hematocrit Volume Fraction (Bld) 38.6 % Normal 37-47 [facility] Work Phone: Hemoglobin mass conc (Bld) 12.8 g/dL Normal 12.0-15.0 [facility] Work Phone: MCH Auto Entitic mass (RBC) 30.7 pg Normal 27.0-32.0 [facility] Work Phone: MCH Entitic mass (RBC) 30.7 pg Normal 27.0-32.0 [facility] Work Phone: MCHC Auto mass conc (RBC) 33.2 g/dL Normal 32-36 [facility] Work Phone: MCHC mass conc (RBC) 33.2 g/dL Normal 32-36 [facility] Work Phone: MCV Auto Entitic volume (RBC) 92.6 fL Normal 81-99 [facility] Work Phone: MCV Entitic volume (RBC) 92.6 fL Normal 81-99 [facility] Work Phone: Platelet mean volume Auto Entitic volume (Bld) 10.5 fL Normal 6.2-12.0 [facility] Work Phone: Platelet mean volume Entitic volume (Bld) 10.5 fL Normal 6.2-12.0 [facility]pre[facility] Work Phone: Platelets #/vol (Bld) 189 10*3/uL Normal 150-450 [facility] Work Phone: Platelets Auto #/vol (Bld) 189 10*3/uL Normal 150-450 [facility] Work Phone: RBC #/vol (Bld) 4.17 {M/mm3} Abnormal 4.2-5.4 [facility] Work Phone: RBC Auto #/vol (Bld) 4.17 {M/mm3} Abnormal 4.2-5.4 [facility] Work Phone: WBC #/vol (Bld) 4.3 {k/mm3} Abnormal 4.4-11.0 [facility]pre[facility] ns[facility] Work Phone: WBC Auto #/vol (Bld) 4.3 {k/mm3} Abnormal 4.4-11.0 Com prehens[facility] Work Phone: CBCMD 33.6 % Normal 19-41 [facility] Work Phone: CBCMD 1.2 % Abnormal 0-1 [facility] Work Phone: CBCMD 0.00 % Normal 0.0-0.0 [facility] Work Phone: CBCMD 2.1 3/uL Normal 2.0-7.7 [facility] Work Phone: CBCMD 12.8 % Abnormal 0-10 [facility] Work Phone: CBCMD 4.2 % Normal 0-5 [facility] Work Phone: CBCMD 42.8 fL Normal 35.1-43.9 [facility] Work Phone: CBCMD 48.2 % Normal 47-70 [facility] Work Phone: CMPOrdered By: System Manage r on 06-28-2012 Albumin mass conc 3.7 g/dL Normal 3.4-5.0 [facility] Work Phone: ALT enzyme act/vol 22 U/L Normal 12-78 [facility]pre hens[facility] Work Phone: AST enzyme act/vol 26 U/L Normal 15-37 [facility]pre hens[facility] Work Phone: Calcium mass conc 8.7 mg/dL Normal 8.5-10.1 [facility] Work Phone: Chloride molar conc 106 mmol/L Normal 98-107 Compr ehensive [facility] Work Phone: CO2 molar conc 29.0 mmol/L Normal 21.0-32.0 Comprehen s[facility] Work Phone: Creatinine mass conc 0.8 mg/dL Normal 0.6-1.0 Comp rehensive [facility] Work Phone: GFR/1.73 sq M predicted among non-blacks MDRD vol rate/area (S/P/Bld) 75 mL/min/{1.73_m2} Normal Compre[facility] ns[facility] Work Phone: Globulin Calculated mass conc (S) 3.2 g/dL Normal 2.7-4.2 [facility] Work Phone: Globulin mass conc (S) 3.2 g/dL Normal 2.7-4.2 [facility] Work Phone: Glucose mass conc 78 mg/dL Normal 70-110 [facility] Work Phone: Potassium molar conc 4.1 mmol/L Normal 3.5-5.1 Comp rehens[facility] Work Phone: Protein mass conc 6.9 g/dL Normal 6.4-8.2 [facility] Work Phone: Sodium molar conc 143 mmol/L Normal 136-145 [facility] Work Phone: Urea nitrogen mass conc 18 mg/dL Normal 7-18 [facility] Work Phone: CMP 22.5 {RATIO} Abnormal 10-20 [facility]prehens[facility] e [facility] Work Phone: CMP 91 mL/min Normal [facility] Work Phone: CMP 59 U/L Normal 50-136 [facility] Work Phone: CMP 8 1 Normal 5-15 [facility] Work Phone: CMP 1.2 {RATIO} Normal 0.9-2.4 [facility] Work Phone: CMP 0.60 mg/dL Normal 0.00-1.00 [facility] Work Phone: CMP 6.9 g/dL Normal 6.4-8.2 [facility] Work Phone: CMP 3.2 g/dL Normal 2.7-4.2 [facility] Work Phone: LIPIDOrdered By: Augie patel on 06-28-2012 Cholesterol in HDL mass conc 96 mg/dL Normal [facility] Work Phone: Comment on above: Reference RangeHDL < 40 mg/dL Low HDL CholesterolHDL >or= 60 mg/dL High HDL Cholesterol Cholesterol in LDL mass conc 57 mg/dL Normal 0-130 [facility] Work Phone: Cholesterol mass conc 160 mg/dL Normal Com prehensive [facility] Work Phone: Comment on above: <200 mg/dL Desirable 200-240 mg/dL Borderline>240 mg/dL High Risk Triglyceride mass conc 33 mg/dL Normal [facility] Work Phone: Comment on above: Serum Triglycerides Reference IntervalNormal <150 mg/dLBorderline high 150 - 199 mg/dLHigh 200 - 499 mg/dLVery High > or = 500 mg/dL LIPID 7 mg/dL Normal 5-40 [facility] Work Phone: VITDOrdered By: System Manag er on 06-28-2012 VITD 66.0 ng/mL Normal [facility] Work Phone: Comment on above: Vitamin D 25(OH) Sta tus RangeDeficiency <20 ng/mL (50nmol/L)Insufficiency 20 - 30 ng/mL (50 - 75 nmol/L)Sufficiency 30 - 100 ng/mL (75 - 250 nmol/L)Toxicity >100 ng/mL (250 nmol/L)Effective 2012 DEXA BONE DENSITY STUDY (HP) Ordered By: Parts Assembler on 04-03-2012 DEXA BONE DENSITY STUDY (HP) See Note Normal [facility] Work Phone: Comment on above: PROCEDURE: DUAL ENER GY X-RAY ABSORPTIOMETRY / DXA REASON FOR EXAM: Female, 71 years old. Osteopenia. TECHNIQUE: Bone Mineral Density (BMD) measurements of lumbar spine andbilateral hips were obtained. COMPARISON: Comparison is made with prior study dated March 30, 2010. FINDINGS: Lumbar Spine (L1-L4): g/cm2 (0.780) / T-score (-3.2) / Z-score (-1.5) Left Femur Total: g/cm2 (0.858) / T-score (-1.2) / Z-score (0.3)Left Femoral Neck: g/cm2 (0.819) / T-score (-1.6) / Z-score (0.1)Right Femur Total: g/cm2 (0.847) / T-score (-1.3) / Z-score (0.2)Right Femoral Neck: g/cm2 (0.776) / T-score (-1.9) / Z-score (-0.2) The T-Scores on the most recent prior examination were: Lumbar Spine (L1-L4): which represents a worsening of 0.1%.Left Femur Total: which represents an improvement of 1.4%.Right Femur Total: which represents a worsening of 0.8%. IMPRESSION:The patient is considered osteopenic, as outlined above, according toWorldHealth Organization (WHO) criteria. Fracture risk is moderate. Reference Information:The T-score is the number of standard deviations above or below thestandard which is normal for young adults at their peak bone mineraldensity. The World Health Organization (WHO) interprets the T-scores asfollows: Above -1 Normal bone densityBetween -1 and -2.5 OsteopeniaEqual to / or below -2.5 Osteoporosis As a practical clinical guideline, osteopenia may be graded as follows:Mild -1 through -1.5Moderate -1.6 through -2.0Severe -2.1 through -2.4 The Z-score is the number of standard deviations above or below age-matchedcontrols. A Z-score of less than -1.5 would be considered abnormal. References:1. NIH Osteoporosis and Related Bone Diseases http://www.osteo.org2. International Society for Clinical Densitometry http://www.iscd.org3. National Osteoporosis Foundation http://www.nof.org Signed:Graham Rivera M.D.April 03, 2012 at 1:15:10 PM [phone] Signed GP/GP If you are the referring physician and would like to consult with theradiologist who provided this interpretation, please contact Lamar Xiong at [phone]. If this radiologist is unavailable, youwill be directed to another radiologist to assist. If you are a patient with a question regarding this report, pleasecontactyour referring physician directly. Professional Interpretation Provided By: [employer], Phone , These documents contain legally protected and confidential healthinformation intended only for the use of the individual or entity namedabove. If you are not the intended recipient, you are hereby notifiedthatany disclosure, copying, distribution, or other use of these documents isstrictly prohibited. If you have received this information in error,pleasenotify the sender immediately and arrange for the return or destructionofthese documents. Dictated on 04/03/12 1239 by Miguel BABCOCK,Kelscribed on 04/03/12 1319 by ITS IMPORTSign by Graham Rivera MD on 04/03/12 1320 Sign by: Graham Rivera MD HEPATIC FUNCTION PANEL ([id number])Ordered By: Parts Assembler on 10-12-2011 Albumin mass conc 4.2 g/dL Normal 3.5-4.8 [facility]pre[facility] ens[facility] Work Phone: Comment on above: PATIENT NOT FASTINGP ERFORMED BY: [facility] Igjyyu2573 [facility] [id number] Information: [id number] ALP [Catalytic activity/Vol] 46 U/L Normal 25-165 [facility]; [facility] Work Phone: Comment on above: PATIENT NOT FASTINGP ERFORMED BY: CB [facility] Nkwida4134 [facility] [id number] Information: [id number] ALP enzyme act/vol 46 [iU]/L Normal 25-165 [facility] Work Phone: Comment on above: PATIENT NOT FASTINGP ERFORMED BY: [employer] [facility] Kbbidt0396 [facility] [id number] Information: [id number] ALT [Catalytic activity/Vol] 16 U/L Normal 0-40 [facility]; [facility] Work Phone: Comment on above: PATIENT NOT FASTINGP ERFORMED BY: LIT [facility] Raydul[address] RoadDublin [place] [id number] Information: [id number] ALT enzyme act/vol 16 [iU]/L Normal 0-40 [facility] Work Phone: Comment on above: PATIENT NOT FASTINGP ERFORMED BY: CB [facility] Vzbtlr22[address] RoadDublin [place] [id number] Information: [id number] AST [Catalytic activity/Vol] 29 U/L Normal 0-40 [facility]; [facility] Work Phone: Comment on above: PATIENT NOT FASTINGP ERFORMED BY: LIT Lab[facility]omon[facility]erp Ubuenb364[address] RoadDublin [place] [id number] Information: [id number] AST enzyme act/vol 29 [iU]/L Normal 0-40 [facility] Work Phone: Comment on above: PATIENT NOT FASTINGP ERFORMED BY: LIT [facility] Oeglcg[address] RoadAffinity Health Partnersin [place] [id number] Information: [id number] Bilirubin mass conc 0.5 mg/dL Normal 0.0-1.2 [facility] Work Phone: Comment on above: PATIENT NOT FASTINGP ERFORMED BY: LIT [facility] Bcfvlw50[address] RoadAffinity Health Partnersin [place] [id number] Information: [id number] Bilirubin.direct mass conc 0.19 mg/dL Normal 0.00-0.40 [facility] Work Phone: Comment on above: PATIENT NOT FASTINGP ERFORMED BY: LIT [facility] Dkfqem0555 [address] Roadblin [place] [id number] Information: [id number] Protein mass conc 6.6 g/dL Normal 6.0-8.5 [facility] Work Phone: Comment on above: PATIENT NOT FASTINGP ERFORMED BY: CB [facility] Jmkpys7987 [facility] [id number] Information: [id number] ABDOMEN LIMITEDOrdered By: Gary jeffries [employer] Maker on 10-10-2011 ABDOMEN LIMITED See Note Normal Comprehen jaxon [facility] Work Phone: Comment on above: PROCEDURE: ABDOMINAL ULTRASOUND - RIGHT UPPER QUADRANT REASON FOR VISIT: Female, 71 years old. Right upper quadrant pain. TECHNIQUE: Ultrasound evaluation of the right upper quadrant wasperformed with real-time and static perkins-scale imaging. TECHNICAL QUALITY: Adequate. COMPARISON: None. FINDINGS: Liver: The liver measures 12.7 cm. There is normal echogenicity of theliver. There is minimal dilatation of the intrahepatic biliary ducts.There is hepatic color flow. The direction of portal flow ishepatopetal.There is a 7 mm x 8 mm x 8 mm cyst seen in the right lobe. Gallbladder: Normal distended gallbladder. The gallbladder wallmeasures2.0 mm. There is a negative sonographic Farrar's sign. There is nopericholecystic fluid. There are no gallstones. Common Bile Duct (C.B.D.): The common bile duct measures 3.0 mm. Pancreas: Normal size of the head, body and tail of the pancreas.Thereis normal echogenicity of the pancreas. There is no demonstratedpancreatic mass or cyst. Right Kidney: Normal size of the right kidney. The right hjhznirrbywdcc05.2 cm. Normal renal cortex. The right cortex measures .9 cm. Thereisno demonstrated renal mass or cyst. There is no right hydronephrosis. IMPRESSION:Mild dilatation of the intrahepatic biliary ducts.Small cyst in the right lobe of the liver. Signed:Graham Rivera M.D.October 10, 2011 at 10:45:03 AM [id number] Signed GP/GP If you are the referring physician and would like to consult with theradiologist who provided this interpretation, please contact Lamar Xiong at [phone]. If this radiologist is unavailable, youwill be directed to another radiologist to assist. If you are a patient with a question regarding this report, pleasecontactyour referring physician directly. Professional Interpretation Provided By: [employer] Phone , These documents contain legally protected and confidential healthinformation intended only for the use of the individual or entity namedabove. If you are not the intended recipient, you are hereby notifiedthatany disclosure, copying, distribution, or other use of these documents isstrictly prohibited. If you have received this information in error,pleasenotify the sender immediately and arrange for the return or destructionofthese documents. Dictated on 10/10/11 0940 by Miguel BABCOCK,EctorrieleTranscribed on 10/10/11 1050 by ITS IMPORTSign by Miguel BABCOCK,Graham on 10/10/11 1051 Sign by: Graham Rivera MD ABDOMEN/PELVIS WITH CONTRAST Ordered By: Parts Assembler on 09-17-2011 ABDOMEN/PELVIS WITH CONTRAST See Note Normal [facility] Work Phone: Comment on above: PROCEDURE: CT ABDOME N AND PELVIS WITH CONTRAST REASON FOR EXAM: Female, 71 years old. Abdominal bloating, weight gain TECHNIQUE: Transaxial images were obtained from the dome of thediaphragmto the symphysis pubis with oral contrast. 100mL ml of Isovue 300contrastwas administered. COMPARISON: None. FINDINGS:Mild degree of scarring at the left lung base. There is trace intrahepatic bile duct dilatation particularly of the leftlobe. The extrahepatic common bile duct measures up to 8 mm withtaperingwithin the pancreatic head. The pancreatic duct is mildly dilated at 3mm.Normal gallbladder and extrahepatic biliary system. Normal enhancedspleen. No pancreatic mass lesion is seen. There are two low densitylesions of the liver, one in the left hepatic lobe on image 28 [id number] and one on image 29 measuring 8 mm in the right hepatic lobeposteriorly. The latter lesion is more compatible with a simple cyst. Normal bilateral adrenal glands. Normal size of the right kidney. There is no right renal mass. Thereareno right renal calculi. There is no right hydronephrosis. Normalvisualized right ureter. Normal size of the left kidney. There is no left renal mass. There arenoleft renal calculi. There is no left hydronephrosis. Normal visualizedleft ureter. Normal visualized stomach. The small bowel is well opacified. No smallbowel wall thickening seen. Some scattered air-fluid levels areidentified, however. Normal colon. The appendix is thought to be seenonimage 63 in the right lower quadrant, anterior to the right commonfemoralvein but does not appear to be inflamed. There is no demonstrated peritoneal fluid. Normal abdominal aorta. Normal inferior vena cava. There is acircumaortic left renal vein. Normal urinary bladder. There is no pelvic mass lesion orlymphadenopathy.There is no pelvic fluid. Normal visualized uterus. Normal abdominal wall. Normal osseous structures. IMPRESSION:1. Mild intrahepatic and extrahepatic bile duct dilatation with mildprominence of the pancreatic duct. Central obstruction process notexcluded. Recommend M.R.C.P. and/or ultrasound.2. Probable focal fatty infiltration adjacent the falciform ligamentmeasuring 9 mm. Ultimately indeterminate by CT . This would better beevaluated with ultrasound.3. Simple cyst posterior right hepatic lobe measuring 8 mm.4. No evidence of small bowel obstruction or ascites.5. Scarring of the left lower lobe. Signed:Henry Portillo M.D.September 17, 2011 at 3:43:03 PM [id number] Signed GB/GB If you are the referring physician and would like to consult with theradiologist who provided this interpretation, please contact Henry Portillo M.D. at [phone]. If this radiologist is unavailable, you will bedirected to another radiologist to assist. If you are a patient with a question regarding this report, pleasecontactyour referring physician directly. Professional Interpretation Provided By: [employer], Phone , Dictated on 09/17/11 1116 by Henry Portillo MD BTranscribed on 09/22/11927 by ITS IMPORTSign by Henry Portillo MD on 09/22/11927 Sign by: Henry Portillo MD CREOrdered By: System Manage r on 09-17-2011 Creatinine mass conc 0.7 mg/dL Normal 0.6-1.0 Comp rehensive [facility] Work Phone: GFR/1.73 sq M predicted among blacks MDRD vol rate/area (S/P/Bld) 107 mL/min/{1.73_m2} Normal Compreh ensive [facility] Work Phone: GFR/1.73 sq M predicted among non-blacks MDRD vol rate/area (S/P/Bld) 88 mL/min/{1.73_m2} Normal Comprehe nsive [facility] Medicine Work Phone: CBC WITH MANUAL DIFF ([id number]) Ordered By: Parts Assembler on 09-14-2011 Basophils #/vol (Bld) 0.0 {x10E3/uL} Normal 0.0-0.2 [facility] Work Phone: Comment on above: PATIENT NOT FASTINGP ERFORMED BY: [facility] Hjcqia7751 [facility] [id number] Information: [id number] Basophils (Bld) [#/Vol] 0.0 10*3/uL Normal 0.0-0.2 [facility]; [facility] Work Phone: Comment on above: PATIENT NOT FASTINGP ERFORMED BY: [facility]Urbfut9576 [facility] [id number] Information: [id number] Basophils Auto #/vol (Bld) 0.0 {x10E3/uL} Normal 0.0-0.2 [facility] Work Phone: Basophils/100 WBC (Bld) 1 % Normal 0-3 [facility] Work Phone: Comment on above: PATIENT NOT FASTINGP ERFORMED BY: [facility]Gteqmd9532 [facility] [id number] Information: [id number] Basophils/100 WBC Auto (Bld) 1 % Normal 0-3 [facility] Work Phone: Eosinophils #/vol (Bld) 0.1 {x10E3/uL} Normal 0.0-0.4 [facility] Work Phone: Comment on above: PATIENT NOT FASTINGP ERFORMED BY: LIT Luonglin6370 [facility] [id number] Information: [id number] Eosinophils (Bld) [#/Vol] 0.1 10*3/uL Normal 0.0-0.4 [facility]; [facility] Work Phone: Comment on above: PATIENT NOT FASTINGP ERFORMED BY: [facility]6370 [facility] [id number] Information: [id number] Eosinophils Auto #/vol (Bld) 0.1 {x10E3/uL} Normal 0.0-0.4 [facility] Work Phone: Eosinophils/100 WBC (Bld) 2 % Normal 0-7 [facility] Work Phone: Comment on above: PATIENT NOT FASTINGP ERFORMED BY: [facility]6370 [facility] [id number] Information: [id number] Eosinophils/100 WBC Auto (Bld) 2 % Normal 0-7 [facility] Work Phone: Erythrocyte distribution width Auto Ratio (RBC) 14.1 % Normal 12.3-15.4 [facility] Work Phone: Erythrocyte distribution width Ratio (RBC) 14.1 % Normal 12.3-15.4 [facility] Work Phone: Comment on above: PATIENT NOT FASTINGP ERFORMED BY: [facility]6370 [facility] [id number] Information: [id number] Hematocrit Auto Volume Fraction (Bld) 40.1 % Normal 34.0-46.6 Comprehens [facility] Internal Medicine Work Phone: Hematocrit Volume Fraction (Bld) 40.1 % Normal 34.0-46.6 [facility] Work Phone: Comment on above: PATIENT NOT FASTINGP ERFORMED BY: LIT Mckeon Sviwvg8029 [facility] [id number] Information: [id number] Hemoglobin mass conc (Bld) 13.6 g/dL Normal 11.1-15.9 [facility] Work Phone: Comment on above: PATIENT NOT FASTINGP ERFORMED BY: LIT Mckeon[address] [id number] Information: [id number] Immature granulocytes #/vol (Bld) 0.0 {x10E3/uL} Normal 0.0-0.1 [facility] Work Phone: Comment on above: PATIENT NOT FASTINGP ERFORMED BY: LIT Mckeon Npndia[address] [id number] Information: [id number] Immature granulocytes (Bld) [#/Vol] 0.0 10*3/uL Normal 0.0-0.1 [facility]; [facility] Work Phone: Comment on above: PATIENT NOT FASTINGP ERFORMED BY: LIT [address] [id number] Information: [id number] Immature granulocytes/100 WBC (Bld) 0 % Normal 0-2 [facility] Work Phone: Comment on above: PATIENT NOT FASTINGP ERFORMED BY: [address] [id number] Information: [id number] Lymphocytes #/vol (Bld) 1.7 {x10E3/uL} Normal 0.7-4.5 [facility] Work Phone: Comment on above: PATIENT NOT FASTINGP ERFORMED BY: LIT [place] 6909070 [facility] [id number] Information: [id number] Lymphocytes (Bld) [#/Vol] 1.7 10*3/uL Normal 0.7-4.5 [facility]; [facility] Work Phone: Comment on above: PATIENT NOT FASTINGP ERFORMED BY: [facility]6370 [facility] [id number] Information: [id number] Lymphocytes Auto #/vol (Bld) 1.7 {x10E3/uL} Normal 0.7-4.5 [facility] Work Phone: Lymphocytes/100 WBC (Bld) 35 % Normal 14-46 [facility] Work Phone: Comment on above: PATIENT NOT FASTINGP ERFORMED BY: LIT [facility]Co[facility]Amrocd2710 [facility] [id number] Information: [id number] Lymphocytes/100 WBC Auto (Bld) 35 % Normal 14-46 [facility] Work Phone: MCH Auto Entitic mass (RBC) 30.8 pg Normal 26.6-33.0 [facility] Work Phone: MCH Entitic mass (RBC) 30.8 pg Normal 26.6-33.0 [facility] Work Phone: Comment on above: PATIENT NOT FASTINGP ERFORMED BY: LIT LabCoSarah [place] 6909070 [facility] [id number] Information: [id number] MCHC Auto mass conc (RBC) 33.9 g/dL Normal 31.5-35.7 [facility] Work Phone: MCHC mass conc (RBC) 33.9 g/dL Normal 31.5-35.7 [facility] Work Phone: Comment on above: PATIENT NOT FASTINGP ERFORMED BY: [facility]6370 [facility] [id number] Information: [id number] MCV Auto Entitic volume (RBC) 91 fL Normal 79-97 [facility] Work Phone: MCV Entitic volume (RBC) 91 fL Normal 79-97 [facility] Work Phone: Comment on above: PATIENT NOT FASTINGP ERFORMED BY: LIT [facility]onCap[facility])Drxfjt4743 [facility] [id number] Information: [id number] Monocytes #/vol (Bld) 0.5 {x10E3/uL} Normal 0.1-1.0 [facility] Work Phone: Comment on above: PATIENT NOT FASTINGP ERFORMED BY: LIT [place] 6909070 [facility] [id number] Information: [id number] Monocytes (Bld) [#/Vol] 0.5 10*3/uL Normal 0.1-1.0 [facility]; [facility] Work Phone: Comment on above: PATIENT NOT FASTINGP ERFORMED BY: LIT Mckeon Kwaqsf4830 [facility] [id number] Information: [id number] Monocytes Auto #/vol (Bld) 0.5 {x10E3/uL} Normal 0.1-1.0 [facility] Work Phone: Monocytes/100 WBC (Bld) 11 % Normal 4-13 [facility] Work Phone: Comment on above: PATIENT NOT FASTINGP ERFORMED BY: LIT Luonglin6370 [facility] [id number] Information: [id number] Monocytes/100 WBC Auto (Bld) 11 % Normal 4-13 [facility] Work Phone: Neutrophils #/vol (Bld) 2.5 {x10E3/uL} Normal 1.8-7.8 [facility] Work Phone: Comment on above: PATIENT NOT FASTINGP ERFORMED BY: LIT [address] [id number] Information: [id number] Neutrophils (Bld) [#/Vol] 2.5 10*3/uL Normal 1.8-7.8 [facility]; [facility] Work Phone: Comment on above: PATIENT NOT FASTINGP ERFORMED BY: LIT Mckeon Fctomn3277 [facility] [id number] Information: [id number] Neutrophils Auto #/vol (Bld) 2.5 {x10E3/uL} Normal 1.8-7.8 [facility] Work Phone: Neutrophils/100 WBC (Bld) 51 % Normal 40-74 [facility] Work Phone: Comment on above: PATIENT NOT FASTINGP ERFORMED BY: LIT [place] 6909070 [facility] [id number] Information: [id number] Neutrophils/100 WBC Auto (Bld) 51 % Normal 40-74 [facility] Work Phone: Platelets #/vol (Bld) 202 {x10E3/uL} Normal 140-415 [facility] Work Phone: Comment on above: PATIENT NOT FASTINGP ERFORMED BY: LIT Mike Msiyyu4060 [facility] [id number] Information: [id number] Platelets (Bld) [#/Vol] 202 10*3/uL Normal 140-415 [facility]; [facility] Work Phone: Comment on above: PATIENT NOT FASTINGP ERFORMED BY: LIT GarciaJames [place] 5028870 [facility] [id number] Information: [id number] Platelets Auto #/vol (Bld) 202 {x10E3/uL} Normal 140-415 [facility] Work Phone: RBC #/vol (Bld) 4.41 {x10E6/uL} Normal 3.77-5.28 Comp [facility] Internal Medicine Work Phone: Comment on above: PATIENT NOT FASTINGP ERFORMED BY: LIT [facility]6370 [facility] [id number] Information: [id number] RBC (Bld) [#/Vol] 4.41 10*6/uL Normal 3.77-5.28 Compr ehensive Internal Medicine; [facility] Internal Medicine Work Phone: Comment on above: PATIENT NOT FASTINGP ERFORMED BY: LIT Mckeon Dmsgin4781 [facility] [id number] Information: [id number] RBC Auto #/vol (Bld) 4.41 {x10E6/uL} Normal 3.77-5.28 [facility] Internal Medicine Work Phone: WBC #/vol (Bld) 4.8 {x10E3/uL} Normal 4.0-10.5 [facility] Internal Medicine Work Phone: Comment on above: PATIENT NOT FASTINGP ERFORMED BY: LIT Mckeon Oyxnpa2412 [facility] [id number] Information: [id number] WBC (Bld) [#/Vol] 4.8 10*3/uL Normal 4.0-10.5 [facility] Internal Medicine; [facility] Internal Medicine Work Phone: Comment on above: PATIENT NOT FASTINGP ERFORMED BY: LIT Mkceon Gjyieb0070 [facility] [id number] Information: [id number] WBC Auto #/vol (Bld) 4.8 {x10E3/uL} Normal 4.0-10.5 [facility] Internal Medicine Work Phone: BILAT SCRN DIGITAL & CADOrde red By: Parts Assembler on 08-04-2011 BILAT SCRN DIGITAL & CAD See Note Normal [facility] Work Phone: Comment on above: MAMMOGRAPHY - BILATE RAL SCREENING REASON FOR EXAM: Female, 70 years old. Routine annual screeningexamination. PERTINENT HISTORY: Mother with breast cancer. TECHNIQUE: Digital examination. Mediolateral oblique (MLO) andcraniocaudad (CC) views of both breasts were obtained. CAD: CAD wasperformed on this study. COMPARISON: Comparison is made with prior examinations dated July 29nd July 27, 2009. FINDINGS:The breast composition is heterogeneously dense. There are no dominant masses or suspicious calcifications. No other significant abnormalities are identified. There has been nosignificant change since the prior study. IMPRESSION:Stable bilateral screening mammogram. Yearly follow-up recommended. (A) ASSESSMENT CATEGORY:BIRADS Category 2: Benign finding(s). A letter regarding these resultswill be sent to the patient by the facility within 30 days. Approximately 10% of breast cancers are not detected by mammography. Anormal mammogram should not delay biopsy of a clinically suspiciousabnormality. Signed:Graham Rivera M.D.August 04, 2011 at 11:03:05 AM EDTElectronically Signed GP/GP Professional Interpretation Provided By: [email or web address] [facility], , To consult with a radiologist regarding this report, please call our [id number] line @ Dictated on 08/04/11 1037 by Miguel BABCOCK,Kariranscribed on 08/04/11 1108 by ITS IMPORTSign by Miguel BABCOCK,Graham on 08/04/11 1109 Sign by: Miguel BABCOCK,Graham f/u 08/24/11 CBCMDOrdered By: Augie patel on 07-25-2011 Band form neutrophils/100 WBC (Bld) 2 % Normal 0-5 [facility] Work Phone: Band form neutrophils/100 WBC Manual cnt (Bld) 2 % Normal 0-5 [facility] Work Phone: Eosinophils/100 WBC (Bld) 2 % Normal 0-5 [facility] Work Phone: Eosinophils/100 WBC Auto (Bld) 2 % Normal 0-5 [facility] Work Phone: Erythrocyte distribution width Auto Ratio (RBC) 13.6 % Normal 11.6-14.6 [facility] Work Phone: Erythrocyte distribution width Ratio (RBC) 13.6 % Normal 11.6-14.6 [facility] Work Phone: Hematocrit Auto Volume Fraction (Bld) 36.2 % Abnormal 37-47 [facility] Work Phone: Hematocrit Volume Fraction (Bld) 36.2 % Abnormal 37-47 [facility] Work Phone: Hemoglobin mass conc (Bld) 12.4 g/dL Normal 12.0-16.0 [facility] Work Phone: Lymphocytes/100 WBC (Bld) 43 % Abnormal 19-41 [facility] Work Phone: Lymphocytes/100 WBC Auto (Bld) 43 % Abnormal 19-41 [facility] Work Phone: MCH Auto Entitic mass (RBC) 31.7 pg Normal 27.0-32.0 [facility] Work Phone: MCH Entitic mass (RBC) 31.7 pg Normal 27.0-32.0 [facility] Work Phone: MCHC Auto mass conc (RBC) 34.2 g/dL Normal 32-36 [facility] Work Phone: MCHC mass conc (RBC) 34.2 g/dL Normal 32-36 Comp [facility] Internal Medicine Work Phone: MCV Auto Entitic volume (RBC) 92.5 fL Normal 81-99 [facility] Work Phone: MCV Entitic volume (RBC) 92.5 fL Normal 81-99 [facility] Internal Medicine Work Phone: Neutrophils #/vol (Bld) 1.4 3/uL Abnormal 2.0-7.7 [facility] Work Phone: Neutrophils Auto #/vol (Bld) 1.4 3/uL Abnormal 2.0-7.7 [facility] Work Phone: Platelets #/vol (Bld) 148 10*3/uL Abnormal 150-450 [facility] Work Phone: Platelets Auto #/vol (Bld) 148 10*3/uL Abnormal 150-450 [facility] Work Phone: RBC #/vol (Bld) NORM C+C [facility] Internal Medicine Work Phone: RBC #/vol (Bld) 3.92 {M/mm3} Abnormal 4.2-5.4 Compreh ensive Internal Medicine Work Phone: RBC Auto #/vol (Bld) NORM C+C Normal Comp rehensive Internal Medicine Work Phone: RBC Auto #/vol (Bld) 3.92 {M/mm3} Abnormal 4.2-5.4 Co mprehensive Internal Medicine Work Phone: WBC #/vol (Bld) 3.6 10*3/uL Abnormal 4.4-11.0 Comprehe nsive Internal Medicine Work Phone: WBC Auto #/vol (Bld) 3.6 10*3/uL Abnormal 4.4-11.0 Com prehensive Internal Medicine Work Phone: CBCMD LARGE Normal [facility] Work Phone: CBCMD ADEQUATE Normal [facility] Work Phone: CBCMD 10 % Normal 0-10 [facility] Work Phone: CBCMD 100 1 Normal [facility] Work Phone: CBCMD 43 % Abnormal 47-70 [facility] Work Phone: CBCMD 2 % Normal 0-5 [facility] Work Phone: CMPOrdered By: System Manage r on 07-25-2011 Albumin mass conc 3.6 g/dL Normal 3.4-5.0 Compreh ensive Internal Medicine Work Phone: Albumin/Globulin mass ratio 1.2 {RATIO} Normal 0.9-2.4 [facility] Work Phone: ALP enzyme act/vol 42 U/L Abnormal 50-136 Compre hensive Internal Medicine Work Phone: ALT enzyme act/vol 20 U/L Normal 12-78 Compre hensive Internal Medicine Work Phone: Anion gap 3 molar conc 7 mmol/L Normal 5-15 [facility] Work Phone: Anion gap molar conc 7 mmol/L Normal 5-15 Comp rehensive Internal Medicine Work Phone: AST enzyme act/vol 27 U/L Normal 15-37 Compre hensive Internal Medicine Work Phone: Bilirubin mass conc 0.60 mg/dL Normal 0.00-1.00 Compr ehensive Internal Medicine Work Phone: Calcium mass conc 8.4 mg/dL Abnormal 8.5-10.1 Compreh ensive Internal Medicine Work Phone: Chloride molar conc 107 mmol/L Normal 98-107 Compr ehensive Internal Medicine Work Phone: CO2 molar conc 29.0 mmol/L Normal 21.0-32.0 [facility] Work Phone: Creatinine mass conc 0.7 mg/dL Normal 0.6-1.0 Comp rehensive Internal Medicine Work Phone: GFR/1.73 sq M predicted among blacks MDRD vol rate/area (S/P/Bld) 107 mL/min/{1.73_m2} Normal Compreh ensive Internal Medicine Work Phone: GFR/1.73 sq M.predicted MDRD (S/P/Bld) [Vol rate/Area] 88 mL/min/{1.73_m2} Normal Comprehensiv e Internal Medicine Work Phone: GFR/1.73 sq M.predicted MDRD vol rate/area 88 mL/min/{1.73_m2} Normal Comprehensiv e Internal Medicine Work Phone: Globulin Calculated mass conc (S) 3.1 g/dL Normal 2.7-4.2 [facility] Work Phone: Globulin mass conc (S) 3.1 g/dL Normal 2.7-4.2 [facility] Work Phone: Glucose mass conc 81 mg/dL Normal 70-110 Compreh ensive Internal Medicine Work Phone: Potassium molar conc 4.0 mmol/L Normal 3.5-5.1 [facility] Work Phone: Protein mass conc 6.7 g/dL Normal 6.4-8.2 Compreh ensive Internal Medicine Work Phone: Sodium molar conc 143 mmol/L Normal 136-145 Compreh ensive Internal Medicine Work Phone: Urea nitrogen mass conc 18 mg/dL Normal 7-18 [facility] Work Phone: Urea nitrogen/Creatinine mass ratio 25.7 {RATIO} Abnormal 10-20 [facility] Work Phone: LIPIDOrdered By: System Shea jorge on 07-25-2011 Cholesterol in HDL mass conc 99 mg/dL Normal [facility] Work Phone: Comment on above: Reference Range HDL <40 mg/dL Low HDL Cholesterol HDL >or= 60 mg/dL High HDL Cholesterol Cholesterol in LDL mass conc 47 mg/dL Normal 0-130 [facility] Work Phone: Cholesterol in VLDL mass conc 7 mg/dL Normal 5-40 [facility] Work Phone: Cholesterol mass conc 153 mg/dL Normal Com prehensive Internal Medicine Work Phone: Comment on above: <200 mg/dL Desirable 200-240 mg/dL Borderline >240 mg/dL High Risk Triglyceride mass conc 36 mg/dL Normal [facility] Work Phone: Comment on above: Serum Triglycerides Reference Interval Normal <150 mg/dL Borderline high 150 - 199 mg/dL High 200 - 499 mg/dL Very High > or = 500 mg/dL UACOrdered By: Innotrieve r on 07-25-2011 RBC #/vol (U) 0 SEEN Normal 0-5 Comprehensi ve Internal Medicine Work Phone: WBC #/vol (U) 0 SEEN Normal 0-5 Comprehensi ve Internal Medicine Work Phone: UAC 0 SEEN Normal [facility] Work Phone: UAC Negative Normal [facility] Work Phone: UAC 0.2 EU/dl Normal 0.2 - 1.0 [facility] Work Phone: UAC 7.0 1 Normal 5.0-8.0 [facility] Work Phone: UAC 1.010 1 Normal 1.002-1.03 0 [facility] Work Phone: UAC CLEAR Normal [facility] Work Phone: UAC YELLOW Normal [facility] Work Phone: UAC 0-5 SEEN Normal 5-10 [facility] Work Phone: VITDOrdered By: System Manag er on 07-25-2011 VITD 55.5 ng/mL Normal 30.0-100.0 [facility] Work Phone: Comment on above: Vitamin D deficiency has been defined by the [place] [employer] and an Endocrine Society practice guideline as alevel of serum 25-OH vitamin D less than 20 ng/mL (1,2).The Endocrine Society went on to further define vitamin Dinsufficiency as a level between 21 and 29 ng/mL (2).1. IOM ([place] [employer]). 2010. Dietary reference intakes for calcium and D. [place]: The National Academies Press.2. Courtney MF, Juan BOYLE, Karime FARMER, et al. Evaluation, treatment, and prevention of vitamin D deficiency: an Endocrine Society clinical practice guideline. JCEM. 2010; 96(7):1911-30.Performed at: [employer] [facility] [id number] Director: Marylu Mendez MD, Phone: [phone] f/u 08/24/11 URINE TORIE CULTURE-PAULA COL C OUNT ([id number])Ordered By: Parts Assembler on 10-19-2010 Bacteria identified Cx Nom (U) MUG Normal [facility] Work Phone: Comment on above: Mixed urogenital suzy ra600 Colonies/mL PATIENT NOT FASTINGP ERFORMED BY: [facility] [id number] Information: SRC:UR [id number] Bacteria identified Cx Nom (U) Final report Normal [facility] Work Phone: Comment on above: PATIENT NOT FASTINGP ERFORMED BY: [facility] [id number] Information: SRC:UR [id number] Urinalysis, Office ([id number])Or dered By: Katarina Easley on 10-19-2010 Bilirubin Ql (U) Negative Normal Comprehe nsive Internal Medicine Work Phone: Bilirubin Ql (U) Negative Normal Comprehe nsive Internal Medicine; [facility] Work Phone: Glucose Test strip (U) [Mass/Vol] Negative Normal [facility]; [facility] Work Phone: Glucose Test strip mass conc (U) Negative Normal [facility] Work Phone: Hemoglobin Ql (U) Non Hemolyzed Trace Normal [facility] Work Phone: Hemoglobin Test strip Ql (U) Non Hemolyzed Trace Normal Comprehensiv e Internal Medicine Work Phone: Ketones Ql (U) Negative Normal Comprehens mony Internal Medicine Work Phone: Ketones Ql (U) Negative Normal Comprehens [facility]; [facility] Work Phone: Leukocyte esterase Test strip Ql (U) Negative Normal [facility] Work Phone: Leukocyte esterase Test strip Ql (U) Negative Normal [facility]; [facility] Work Phone: Nitrite Ql (U) Negative Normal Comprehens [facility] Work Phone: Nitrite Ql (U) Negative Normal Comprehens [facility]; [facility] Work Phone: Nitrite Test strip Ql (U) Negative Normal [facility] Work Phone: pH (U) 7.0 [pH] Normal [facility] Work Phone: pH Test strip (U) 7.0 [pH] Normal Compreh ensive Internal Medicine Work Phone: Protein Ql (U) Negative Normal Comprehens [facility] Work Phone: Protein Ql (U) Negative Normal Comprehens [facility]y [facility]; [facility] Work Phone: Protein Test strip Ql (U) Negative Normal [facility] Work Phone: Specific gravity Relative Density (U) 1.025 1 Normal Comprehensi ve Internal Medicine Work Phone: Comment on above: 1.030 Urobilinogen mass/time (24H U) Normal Normal [facility] Work Phone: ABDOMEN COMPLETEOrdered By: Parts Assembler on 10-01-2010 ABDOMEN COMPLETE See Note Normal Comprehe nsive Internal Medicine Work Phone: Comment on above: PROCEDURE: ULTRASOUN D OF THE FEMALE PELVIS - COMPLETE REASON FOR EXAM: Female, 70 years old. LMP: The patient ispostmenopausal. TECHNIQUE: Transabdominal and Transvaginal TECHNICAL QUALITY: Adequate. COMPARISON: None. FINDINGS:The uterus is anteverted and is in a midline position. The uterusmeasures6.5 x 5.9 x 2.6 cm. The endometrium measures 3 mm in thickness, and ishyperechoic. There is no demonstrated endometrial mass. There is nodemonstrated myometrial mass. Normal uterine cervix. Punctatecalcifications are seen in the uterus. This is suggestive of fibroidchange although no focal fibroid is seen. Neither ovary was visualized. There is no fluid in the cul-de-sac. There is a normal wall thickness of the distended urinary bladder.Thereis no demonstrated mass within the urinary bladder. There is nodemonstrated bladder calculi. IMPRESSION:Punctate calcifications are seen within the uterine body. This is inkeeping with fibroid change. Dictated on 10/01/10 0832 by Kari Rivera MDranscribed on 10/04/10 0912 by ITS IMPORTSign by Graham Rivera MD on 10/04/10 0913 Sign by: Graham Rivera MD PROCEDURE: ULTRASOUN D OF THE FEMALE PELVIS - COMPLETE REASON FOR EXAM: Female, 70 years old. LMP: The patient ispostmenopausal. TECHNIQUE: Transabdominal and Transvaginal TECHNICAL QUALITY: Adequate. COMPARISON: None. FINDINGS:The uterus is anteverted and is in a midline position. The uterusmeasures6.5 x 5.9 x 2.6 cm. The endometrium measures 3 mm in thickness, and ishyperechoic. There is no demonstrated endometrial mass. There is nodemonstrated myometrial mass. Normal uterine cervix. Punctatecalcifications are seen in the uterus. This is suggestive of fibroidchange although no focal fibroid is seen. Neither ovary was visualized. There is no fluid in the cul-de-sac. There is a normal wall thickness of the distended urinary bladder.Thereis no demonstrated mass within the urinary bladder. There is nodemonstrated bladder calculi. IMPRESSION:Punctate calcifications are seen within the uterine body. This is inkeeping with fibroid change. Dictated on 10/01/10 0832 by Kari Rivera MDranscribed on 10/04/10 1033 by ITS IMPORTSign by Graham Rivera MD on 10/04/10 1034 Sign by: Graham Rivera MD URINE TORIE CULTURE-PAULA COL C OUNT ([id number])Ordered By: Parts Assembler on 09-28-2010 Bacteria identified Cx Nom (U) Enterococcus faecalis Normal Comprehens [facility] Work Phone: Comment on above: Greater than 100,000 colony forming units per mLNote: this isolate is vancomycin-susceptible.This information is provided for epidemiologic purposesonly: vancomycin is not among the antibioticsrecommended for therapy of urinary tract infectionscaused by Enterococcus.For Enterococcus species, cephalosporins, aminoglycosides (except forhigh-level resistance screening), clindamycin, and trimethoprim-sulfamethoxazole are not effective clinically. Fluoroquinolones areused primarily for treating urinary tract infections. (CLSI, Q279-C21,2009) PATIENT NOT FASTINGP ERFORMED BY: [id number] [facility] [id number] Information: SRC:UR [id number] Bacteria identified Cx Nom (U) Final report Normal [facility] Work Phone: Comment on above: PATIENT NOT FASTINGP ERFORMED BY: [facility] [id number] [facility] [id number] Information: SRC:UR [id number] Other Antibiotic [facility] [place] [employer] [facility] prehensive Internal Medicine Work Phone: Comment on above: S = Susceptibl e; I = Intermediate; R = Resistant P = Positive; N = Negative MICS are expressed in micrograms per mL Antibiotic RSLT#1 RSLT#2 RSLT#3 RSLT#4Ciprofloxacin SLevofloxacin SNitrofurantoin SPenicillin SVancomycin S PATIENT NOT FASTINGP ERFORMED BY: LIT [facility] Isempv2387 Mendoza RoadECU Health North Hospital [id number] Information: SRC:UR [id number] Urinalysis, Office ([id number])Or dered By: Nancy Ramirez on 09-28-2010 Bilirubin Ql (U) Negative Normal Comprehe nsive Internal Medicine Work Phone: Glucose Test strip mass conc (U) Negative Normal [facility] Work Phone: Hemoglobin Ql (U) Negative Normal Compreh ensive Internal Medicine Work Phone: Hemoglobin Test strip Ql (U) Negative Normal [facility] Work Phone: Ketones Ql (U) Negative Normal Comprehens mony Internal [facility] Work Phone: Leukocyte esterase Test strip Ql (U) Trace Normal [facility] Work Phone: Nitrite Ql (U) Negative Normal Comprehens mon[facility] Work Phone: Nitrite Test strip Ql (U) Negative Normal [facility] Work Phone: pH (U) 7.0 [pH] Normal [facility] Work Phone: pH Test strip (U) 7.0 [pH] Normal Compreh ensive Internal Medicine Work Phone: Protein Ql (U) Negative Normal Comprehens mony Internal [facility] Work Phone: Protein Test strip Ql (U) Negative Normal [facility] Work Phone: Specific gravity Relative Density (U) 1.015 1 Normal Comprehensi ve Internal Medicine Work Phone: Urobilinogen mass/time (24H U) Normal Normal [facility] Work Phone: Urinalysis, Office ([id number])on 09-28-2010 Bilirubin Ql (U) Negative Normal Comprehe nsive Internal Medicine; [facility] Work Phone: Glucose Test strip (U) [Mass/Vol] Negative Normal [facility]; [facility] Work Phone: Hemoglobin Ql (U) Negative Normal Compreh ensive Internal Medicine; [facility] Work Phone: Ketones Ql (U) Negative Normal Comprehens [facility]; [facility] Work Phone: Nitrite Ql (U) Negative Normal Comprehens [facility]; [facility] Work Phone: Protein Ql (U) Negative Normal Comprehens mon[facility]; [facility] Work Phone: BILAT SCRN DIGITAL & CADOrde red By: Parts Assembler on 07-29-2010 BILAT SCRN DIGITAL & CAD See Note Normal [facility] Work Phone: Comment on above: MAMMOGRAPHY - BILATE RAL SCREENING INDICATION:Female, 69 years old. Routine annual screening examination. PERTINENT HISTORY:Mother with breast cancer. TECHNIQUE:Digital examination. Mediolateral oblique (MLO) and craniocaudad (CC)views of both breasts were obtained. CAD: CAD was performed on thisstudy. COMPARISON:Comparison is made with prior examination dated July 27, 2009. FINDINGS:The breast composition is heterogeneously dense. There are no masses or suspicious microcalcifications. No other significant abnormalities are identified. There has been nosignificant change since the prior study. IMPRESSION:Normal bilateral screening mammogram. One year follow-up recommended. (1) ASSESSMENT CATEGORY:BIRADS Category 2: Benign finding(s). A letter regarding these resultswill be sent to the patient by the facility within 30 days. Approximately 10% of breast cancers are not detected by mammography. Anormal mammogram should not delay biopsy of a clinically suspiciousabnormality. Dictated on 07/29/10 0946 by Kari Rivera MDranscribed on 07/29/10 1112 by ITS IMPORTSign by Graham Rivera MD on 07/29/10 111 Sign by: Ector Rivera MDriele VIT D,25 [id number] By: Sy stem Plaster Model And Mold Maker on 07-15-2010 VIT D,25 51763 42.8 ng/mL Normal 32.0-100.0 [facility] Work Phone: Comment on above: Recent studies consi brittany the lower limit of 32.0 ng/mL to mari threshold for optimal health.Servando MA. J Nutr. 2004;135(2):317-22.Performed at: [facility] Lab[address] [id number] Director: Marylu Mendez MD, Phone: [phone] CBCD,SMEAR DIFFOrdered By: Gary ystem Plaster Model And Mold Maker on 04-01-2010 Erythrocyte distribution width Auto Ratio (RBC) 13.4 % Normal 11.6-14.6 [facility] Work Phone: Erythrocyte distribution width Ratio (RBC) 13.4 % Normal 11.6-14.6 [facility] Work Phone: Hematocrit Auto Volume Fraction (Bld) 37.6 % Normal 37-47 [facility] Work Phone: Hematocrit Volume Fraction (Bld) 37.6 % Normal 37-47 [facility] Work Phone: Hemoglobin mass conc (Bld) 13.1 g/dL Normal 12.0-16.0 [facility] Work Phone: Lymphocytes/100 WBC (Bld) 32 % Normal 19-41 [facility] Work Phone: Lymphocytes/100 WBC Auto (Bld) 32 % Normal 19-41 [facility] Work Phone: MCH Auto Entitic mass (RBC) 32.2 pg Abnormal 27.0-32.0 [facility] Work Phone: MCH Entitic mass (RBC) 32.2 pg Abnormal 27.0-32.0 [facility] Work Phone: MCHC Auto mass conc (RBC) 34.8 g/dL Normal 32-36 [facility] Work Phone: MCHC mass conc (RBC) 34.8 g/dL Normal 32-36 Comp rehensive Internal Medicine Work Phone: MCV Auto Entitic volume (RBC) 92.6 fL Normal 81-99 [facility] Work Phone: MCV Entitic volume (RBC) 92.6 fL Normal 81-99 [facility] Work Phone: Monocytes/100 WBC (Bld) 4 % Normal 0-10 [facility] Work Phone: Monocytes/100 WBC Auto (Bld) 4 % Normal 0-10 [facility] Work Phone: Neutrophils #/vol (Bld) 2.4 3/uL Normal 2.0-7.7 [facility] Work Phone: Neutrophils Auto #/vol (Bld) 2.4 3/uL Normal 2.0-7.7 [facility] Work Phone: Platelets #/vol (Bld) SeeNote Normal [facility] prehensive Internal Medicine Work Phone: Comment on above: Result: ADEQUATE Platelets #/vol (Bld) 190 10*3/uL Normal 150-450 [facility] Work Phone: Platelets Auto #/vol (Bld) 190 10*3/uL Normal 150-450 [facility] Internal Medicine Work Phone: RBC #/vol (Bld) 4.06 {M/mm3} Abnormal 4.2-5.4 Compreh ensive Internal Medicine Work Phone: RBC Auto #/vol (Bld) 4.06 {M/mm3} Abnormal 4.2-5.4 Co mprehensive [facility] Work Phone: WBC #/vol (Bld) 4.3 10*3/uL Abnormal 4.4-11.0 Comprehe nsive Internal Medicine Work Phone: WBC Auto #/vol (Bld) 4.3 10*3/uL Abnormal 4.4-11.0 Com prehensive Internal Medicine Work Phone: CBCD,SMEAR DIFF SeeNote Normal Comprehen count includes the [facility] Internal Medicine Work Phone: Comment on above: Result: NORM C+C Result: ADEQUATE CBCD,SMEAR DIFF 64 % Normal 47-70 [facility] Work Phone: CBCD,SMEAR DIFF 100 1 Normal [facility] Internal Medicine Work Phone: VIT D,25 [id number] By: Sy stem Plaster Model And Mold Maker on 04-01-2010 VIT D,25 50604 37.2 ng/mL Normal 32.0-100.0 [facility] Work Phone: Comment on above: Recent studies consi brittany the lower limit of 32.0 ng/mL to mari threshold for optimal health.Servando MA. J Nutr. 2004;135(2):317-22.Performed at: [address] [id number] Director: Marylu Mendez MD, Phone: [phone] DEXA BONE DENSITY STUDY (HP) Ordered By: Parts Assembler on 03-30-2010 DEXA BONE DENSITY STUDY (HP) See Note Normal [facility] Work Phone: Comment on above: CLINICAL:Female, 69 years old. This is a postmenopausal follow up. EXAMINATION:DUAL ENERGY X-RAY ABSORPTIOMETRY / DEXA. TECHNIQUE:Bone Mineral Density (BMD) measurements of lumbar spine and bilateralhipswere obtained using a [employer] scanner.. COMPARISON:Comparison is made with prior study dated March 18, 2008. FINDINGS: Lumbar Spine (L1-L4): g/cm2 (0.908) / T-score (-2.3) / Z-score (-0.4)Left Femur Total: g/cm2 (0.915) / T-score (-0.7) / Z-score (0.8)Right Femur Total: g/cm2 (0.869) / T-score (-1.1) / Z-score (0.5) Since prior study, there has been a decrease of 3% in the bone density. IMPRESSION:The patient is considered osteopenic, as outlined above, according toWorldHealth Organization (WHO) criteria. Fracture risk is moderate. Reference Information:The T-score is the number of standard deviations above or below thestandard which is normal for young adults at their peak bone mineraldensity. The World Health Organization (WHO) interprets the T-scores asfollows: Above -1 Normal bone densityBetween -1 and -2.5 OsteopeniaEqual to / or below -2.5 Osteoporosis As a practical clinical guideline, osteopenia may be graded as follows:Mild -1 through -1.5Moderate -1.6 through -2.0Severe -2.1 through -2.4 The Z-score is the number of standard deviations above or below age-matchedcontrols. A Z-score of less than -1.5 would be considered abnormal. References:1. NIH Osteoporosis and Related Bone Diseases http://www.osteo.org2. International Society for Clinical Densitometry http://www.iscd.org3. National Osteoporosis Foundation http://www.nof.org Dictated on 03/30/10 1049 by Miguel BABCOCK,JoeleTranscribed on 03/30/10 153 by ITS IMPORTSign by Graham Rivera MD on 03/30/10 153 Sign by: Graham Rivera MD VIT D,25 [id number] By: Sy stem Plaster Model And Mold Maker on 01-01-2010 VIT D,25 26615 41.2 ng/mL Normal 32.0-100.0 Comprehens [facility]y [facility] Work Phone: Comment on above: Recent studies consi brittany the lower limit of 32.0 ng/mL to mari threshold for optimal health.Servando MA. J Nutr. 2004;135(2):317-22.Performed at: - Lab[address] [id number] Director: Marylu Mendez MD, Phone: [phone] Thin prep Pap ([id number])Ordered By: Parts Assembler on 09-30-2009 Microscopic observation Other stain Nom (Unsp spec) . Normal Comprehens mony Internal Medicine Work Phone: Comment on above: Source.............C ervical;EndocervicalNo. of containers..01 CYTYC Thin Prep VialPATIENT NOT FASTINGPERFORMED BY: [facility]L[employer] [place] [facility]St[facility] [id number] Information: [id number] Pathology report final diagnosis Narrative [facility] Normal [facility] Work Phone: Comment on above: NEGATIVE FOR INTRAEP ITHELIAL LESION AND MALIGNANCY.CELLULAR CHANGES ASSOCIATED WITH ATROPHY ARE PRESENT.Satisfactory for evaluation. Endocervical component may not bedistinguished in cases of atrophy.V76.2 ; Screening for malignant neoplasm of the cervixSadorota Murphy, Rn Observation (ASCP) Source.............C ervical;EndocervicalNo. of containers..01 CYTYC Thin Prep VialPATIENT NOT FASTINGPERFORMED BY: Wyldfire [place] Mo-DV [id number] Information: [id number] Thin prep Pap ([id number]) PAPSMR Normal [facility] Internal Medicine Work Phone: Comment on above: The Pap smear is a s creening test designed to aid in the detection ofpremalignant and malignant conditions of the uterine cervix. It is not adiagnostic procedure and should not be used as the sole means of detectingcervical cancer. Both false-positive and false-negative reports do occur..The HPV DNA reflex criteria were not met with this specimen resulttherefore, no HPV testing was performed.. Source.............C ervical;EndocervicalNo. of containers..01 CYTYC Thin Prep VialPATIENT NOT FASTINGPERFORMED BY: [employer] [place] [id number] Information: [id number] CBCD,SMEAR DIFFOrdered By: Gary barrosotem Plaster Model And Mold Maker on 08-21-2009 Erythrocyte distribution width Auto Ratio (RBC) 13.9 % Normal 11.6-14.6 [facility] Internal Medicine Work Phone: Erythrocyte distribution width Ratio (RBC) 13.9 % Normal 11.6-14.6 [facility] Work Phone: Hematocrit Auto Volume Fraction (Bld) 37.4 % Normal 37-47 Comprehens mony Internal Medicine Work Phone: Hematocrit Volume Fraction (Bld) 37.4 % Normal 37-47 [facility] Work Phone: Hemoglobin mass conc (Bld) 12.7 g/dL Normal 12.0-16.0 [facility] Work Phone: Lymphocytes/100 WBC (Bld) 42 % Abnormal 19-41 [facility] Work Phone: Lymphocytes/100 WBC Auto (Bld) 42 % Abnormal 19-41 [facility] Work Phone: MCH Auto Entitic mass (RBC) 31.3 pg Normal 27.0-32.0 [facility] Work Phone: MCH Entitic mass (RBC) 31.3 pg Normal 27.0-32.0 [facility] Work Phone: MCHC Auto mass conc (RBC) 33.9 g/dL Normal 32-36 [facility] Work Phone: MCHC mass conc (RBC) 33.9 g/dL Normal 32-36 [facility] Work Phone: MCV Auto Entitic volume (RBC) 92.4 fL Normal 81-99 [facility] Work Phone: MCV Entitic volume (RBC) 92.4 fL Normal 81-99 [facility] Work Phone: Monocytes/100 WBC (Bld) 9 % Normal 0-10 [facility] Work Phone: Monocytes/100 WBC Auto (Bld) 9 % Normal 0-10 [facility] Work Phone: Neutrophils #/vol (Bld) 1.5 3/uL Abnormal 2.0-7.7 [facility] Work Phone: Neutrophils Auto #/vol (Bld) 1.5 3/uL Abnormal 2.0-7.7 [facility] Work Phone: Platelets #/vol (Bld) SeeNote Normal Com prehensive Internal Medicine Work Phone: Comment on above: Result: ADEQUATE Platelets #/vol (Bld) 171 10*3/uL Normal 150-450 Co mprehensive Internal Medicine Work Phone: Platelets Auto #/vol (Bld) 171 10*3/uL Normal 150-450 [facility] Work Phone: RBC #/vol (Bld) 4.05 {M/mm3} Abnormal 4.2-5.4 Compreh ensive Internal Medicine Work Phone: RBC Auto #/vol (Bld) 4.05 {M/mm3} Abnormal 4.2-5.4 [facility] Work Phone: WBC #/vol (Bld) 3.2 10*3/uL Abnormal 4.4-11.0 Comprehe nsive Internal Medicine Work Phone: WBC Auto #/vol (Bld) 3.2 10*3/uL Abnormal 4.4-11.0 Com prehensive Internal Medicine Work Phone: CBCD,SMEAR DIFF 100 1 Normal Comprehen count includes the [facility] Internal Medicine Work Phone: CBCD,SMEAR DIFF 49 % Normal 47-70 [facility] Work Phone: COMP METABOLICOrdered By: Fuentes stem Plaster Model And Mold Maker on 08-21-2009 Albumin mass conc 3.6 g/dL Normal 3.4-5.0 Compreh ensive Internal Medicine Work Phone: Albumin/Globulin mass ratio 1.1 {RATIO} Normal 0.9-2.4 [facility] Work Phone: ALP enzyme act/vol 56 U/L Normal 50-136 Compre [facility] Internal Medicine Work Phone: ALT enzyme act/vol 18 U/L Normal 12-78 [facility]pre [facility] Work Phone: Anion gap 3 molar conc 8 mmol/L Normal 5-15 [facility] Work Phone: Anion gap molar conc 8 mmol/L Normal 5-15 Comp rehensive Internal Medicine Work Phone: AST enzyme act/vol 19 U/L Normal 15-37 Compre hensive Internal Medicine Work Phone: Bilirubin mass conc 0.40 mg/dL Normal 0.00-1.00 Compr ehensive Internal Medicine Work Phone: Calcium mass conc 8.8 mg/dL Normal 8.5-10.1 Compreh ensive Internal Medicine Work Phone: Chloride molar conc 102 mmol/L Normal 98-107 Compr ensive Internal Medicine Work Phone: CO2 molar conc 30.0 mmol/L Normal 21.0-32.0 [facility] Work Phone: Creatinine mass conc 0.8 mg/dL Normal 0.6-1.0 [facility] Internal Medicine Work Phone: GFR/1.73 sq M predicted among blacks MDRD vol rate/area (S/P/Bld) 92 mL/min/{1.73_m2} Normal Comprehe ive Internal Medicine Work Phone: GFR/1.73 sq M.predicted MDRD (S/P/Bld) [Vol rate/Area] 76 mL/min/{1.73_m2} [facility] Work Phone: GFR/1.73 sq M.predicted MDRD vol rate/area 76 mL/min/{1.73_m2} Normal [facility] Work Phone: Globulin Calculated mass conc (S) 3.4 g/dL Normal 2.7-4.2 [facility] Internal Medicine Work Phone: Globulin mass conc (S) 3.4 g/dL Normal 2.7-4.2 [facility] Internal Medicine Work Phone: Glucose mass conc 79 mg/dL Normal 70-110 [facility] Work Phone: Potassium molar conc 4.7 mmol/L Normal 3.5-5.1 [facility] Work Phone: Protein mass conc 7.0 g/dL Normal 6.4-8.2 Compreh ensive Internal Medicine Work Phone: Sodium molar conc 140 mmol/L Normal 136-145 Compreh ensive Internal Medicine Work Phone: Urea nitrogen mass conc 18 mg/dL Normal 7-18 [facility] Work Phone: Urea nitrogen/Creatinine mass ratio 22.5 {RATIO} Abnormal 10-20 [facility] Work Phone: COMPLETE UAOrdered By: Edmundo cotton Plaster Model And Mold Maker on 08-21-2009 Bacteria LM.HPF #/area (Urine sed) 0 SEEN Normal [facility] Work Phone: Clarity Nom (U) CLEAR Normal [facility] Work Phone: Color Nom (U) YELLOW Normal Comprehensi ve Internal Medicine Work Phone: Glucose mass conc SeeNote Normal Compreh ensive Internal Medicine Work Phone: Comment on above: Result: NEGATIVE Protein mass conc SeeNote Normal Compreh ensive Internal Medicine Work Phone: Comment on above: Result: NEGATIVE RBC #/vol (U) 0 SEEN Normal 0-5 Comprehensi ve Internal Medicine Work Phone: RBC Test strip #/vol (U) 0 SEEN Normal 0-5 [facility] Work Phone: WBC #/vol (Bld) 0 SEEN Normal 0-5 Comprehen count includes the [facility] Internal Medicine Work Phone: COMPLETE UA 0 SEEN Normal [facility] Work Phone: COMPLETE UA YELLOW Normal [facility] Work Phone: COMPLETE UA SeeNote Normal [facility] Work Phone: Comment on above: Result: NEGATIVE Result: 0-5 SEEN Result: ADEQUATE Result: NORM C+C COMPLETE UA 6.5 1 Normal 5.0-8.0 [facility] Work Phone: COMPLETE UA 1.010 1 Normal 1.002-1.03 0 [facility] Work Phone: COMPLETE UA 0.2 EU/dl Normal 0.2 - 1.0 [facility] Work Phone: COMPLETE UA CLEAR Normal [facility] Work Phone: LIPIDOrdered By: System Shea jorge on 08-21-2009 Cholesterol in HDL mass conc 97 mg/dL Normal [facility] Work Phone: Comment on above: Reference RangeHDL < 40 mg/dL Low HDL CholesterolHDL >or= 60 mg/dL High HDL Cholesterol Cholesterol in LDL mass conc 55 mg/dL Normal 0-130 [facility] Work Phone: Cholesterol in VLDL mass conc 7 mg/dL Normal 5-40 [facility] Work Phone: Cholesterol mass conc 159 mg/dL Normal Com prehensive Internal Medicine Work Phone: Comment on above: <200 mg/dL Desirable 200-240 mg/dL Borderline>240 mg/dL High Risk Triglyceride mass conc 37 mg/dL Normal [facility] Work Phone: Comment on above: Serum Triglycerides Reference IntervalNormal <150 mg/dLBorderline high 150 - 199 mg/dLHigh 200 - 499 mg/dLVery High > or = 500 mg/dL TSHOrdered By: System Manage r on 08-21-2009 Thyrotropin Qn 2.04 {uIU/mL} Normal 0.358-3.74 Compreh ensive Internal Medicine Work Phone: VIT D,25 [id number] By: Antuit stem Plaster Model And Mold Maker on 08-21-2009 VIT D,25 77034 36.3 ng/mL Normal 32.0-100.0 Comprehens mony Internal Medicine Work Phone: Comment on above: Recent studies consi brittany the lower limit of 32.0 ng/mL to mari threshold for optimal health.Servando MA. J Nutr. 2004;135(2):317-22.Performed at: [facility] Lab[address] [id number] Director: Marylu Mendez MD, Phone: [phone] BILAT SCRN DIGITAL & CADOrde red By: Parts Assembler on 07-27-2009 BILAT SCRN DIGITAL & CAD See Note Normal [facility] Work Phone: Comment on above: Exam Number: [id number] MAMMOGRAPHY - BILATERAL SCREENING INDICATION:Routine annual screening examination. PERTINENT HISTORY:Non-contributory. TECHNIQUE:Digital examination. Mediolateral oblique (MLO) and craniocaudad(CC) views of both breasts were obtained. CAD was performed on thisstudy. COMPARISON:July 09, 2007. July 09, 2008. FINDINGS:The breast composition is composed of scattered fibroglandulardensities. There are no masses or suspicious microcalcifications. No other significant abnormalities are identified. IMPRESSION:Normal bilateral screening mammogram. Yearly follow-up recommended. ASSESSMENT CATEGORY:Category 1: Negative Approximately 10% of breast cancers are not detected by mammography.A normal mammogram should not delay biopsy of a clinicallysuspicious abnormality. Reported By: DIANA DAVENPORT M.D. BILAT SCRN DIGITAL & CADOrde red By: Parts Assembler on 07-09-2008 BILAT SCRN DIGITAL & CAD See Note Normal [facility] Work Phone: Comment on above: Exam Number: [id number] MAMMOGRAM, BILATERAL SCREENING DIGITAL AND CAD HISTORYRoutine screening. Full field digital images were obtained in mediolateral oblique andcraniocaudal projections. CAD images were reviewed. The current study is compared to the examinations of June 23, 2004,May 01, 2005, June 24, 2005, June 27, 2006. There is moderately dense fibroglandular parenchyma present. There isno skin thickening or retraction, architectural distortion, or clusterof suspicious microcalcifications. In the right mediolateral obliqueprojection, there is a density seen in the upper right breast, whichis not identified on the previous examinations. I believe that thisapparent change is most likely projectional. For confirmation, right true lateral and spot mediolateral oblique views arerecommended. IMPRESSIONThere is a density seen higher in the right breast than on anyprevious study. For further evaluation, right true lateral and spotmediolateral oblique views are recommended. FINAL ASSESSMENTBIRADS Category 0 - Incomplete; need additional imaging evaluation. A letter regarding these results has been sent to the patient. This interpretation was rendered by a radiologist certified under theMammography Quality Standards Act of 1992 (MQSA). The mammograms werealso examined with computer-aided detection software ([employer] Reported By: DIANA DAVENPORT M.D. KNEE,4 OR MORE VIEWSOrdered By: Parts Assembler on 05-09-2008 KNEE,4 OR MORE VIEWS See Note Normal Comp rehensive Internal Medicine Work Phone: Comment on above: Exam Number: [id number] RIGHT KNEE, 4 VIEWS WITH WEIGHTBEARING CLINICAL STATEMENTPain. Bone is somewhat osteopenic. There is no joint effusion. Joint spaceis maintained. No erosion or fracture are found. There are somevascular calcifications in the lower leg. IMPRESSIONOsteopenic bone, otherwise normal knee. Reported By: MYLES ANDRADE M.D. Exam Number: [id number] RIGHT HIP, 2 VIEWS CLINICAL STATEMENTHip pain and knee pain. There is normal joint space at the hip without subchondral bonechanges. No fracture or lytic lesions are evident. A couple ofphleboliths are visible in the right pelvis. IMPRESSIONNormal right hip. Reported By: MYLES ANDRADE M.D. CBCD,SMEAR DIFFOrdered By: S ystem Plaster Model And Mold Maker on 04-10-2008 Band form neutrophils/100 WBC (Bld) 2 % Normal 0-5 [facility] Work Phone: Band form neutrophils/100 WBC Manual cnt (Bld) 2 % Normal 0-5 [facility] Work Phone: Eosinophils/100 WBC (Bld) 5 % Normal 0-5 [facility] Work Phone: Eosinophils/100 WBC Auto (Bld) 5 % Normal 0-5 [facility] Work Phone: Erythrocyte distribution width Auto Ratio (RBC) 13.1 % Normal 11.6-14.6 [facility] Work Phone: Erythrocyte distribution width Ratio (RBC) 13.1 % Normal 11.6-14.6 [facility] Work Phone: Hematocrit Auto Volume Fraction (Bld) 36.5 % Abnormal 37-47 [facility] Work Phone: Hematocrit Volume Fraction (Bld) 36.5 % Abnormal 37-47 [facility] Work Phone: Hemoglobin mass conc (Bld) 12.7 g/dL Normal 12.0-16.0 [facility] Work Phone: Lymphocytes/100 WBC (Bld) 44 % Abnormal 19-41 [facility] Work Phone: Lymphocytes/100 WBC Auto (Bld) 44 % Abnormal 19-41 [facility] Work Phone: MCH Auto Entitic mass (RBC) 31.0 pg Normal 27.0-32.0 [facility] Work Phone: MCH Entitic mass (RBC) 31.0 pg Normal 27.0-32.0 [facility] Work Phone: MCHC Auto mass conc (RBC) 34.7 g/dL Normal 32-36 [facility] Work Phone: MCHC mass conc (RBC) 34.7 g/dL Normal 32-36 [facility] Work Phone: MCV Auto Entitic volume (RBC) 89.2 fL Normal 81-99 [facility] Work Phone: MCV Entitic volume (RBC) 89.2 fL Normal 81-99 [facility] Work Phone: Monocytes/100 WBC (Bld) 2 % Normal 0-10 [facility] Work Phone: Monocytes/100 WBC Auto (Bld) 2 % Normal 0-10 [facility] Work Phone: Platelets #/vol (Bld) 219 10*3/uL Normal 150-450 Co m[facility] Work Phone: Platelets #/vol (Bld) SeeNote Normal Com prehensive [facility] Medicine Work Phone: Comment on above: Result: ADEQUATE Platelets Auto #/vol (Bld) 219 10*3/uL Normal 150-450 [facility] Work Phone: RBC #/vol (Bld) 4.09 {M/mm3} Abnormal 4.2-5.4 Compreh [facility] Work Phone: RBC Auto #/vol (Bld) 4.09 {M/mm3} Abnormal 4.2-5.4 [facility] Work Phone: WBC #/vol (Bld) 3.4 10*3/uL Abnormal 4.4-11.0 Comprehe [facility] Internal Medicine Work Phone: WBC Auto #/vol (Bld) 3.4 10*3/uL Abnormal 4.4-11.0 Com prehensive [facility] Medicine Work Phone: CBCD,SMEAR DIFF SeeNote Normal [facility] Work Phone: Comment on above: Result: ADEQUATE Result: NORM C+C CBCD,SMEAR DIFF 47 % Normal 47-70 Comprehen count includes the [facility] Internal Medicine Work Phone: CBCD,SMEAR DIFF 100 1 Normal [facility] Work Phone: CBCD,SMEAR DIFF 2 % Normal 0-5 [facility] Work Phone: COMP METABOLICOrdered By: Fuentes stem [employer] Model And Mold Maker on 04-10-2008 Albumin mass conc 3.5 g/dL Normal 3.4-5.0 Compreh [facility] Work Phone: Albumin/Globulin mass ratio 1.1 {RATIO} Normal 0.9-2.4 [facility] Internal [facility] Work Phone: ALP enzyme act/vol 68 U/L Normal 50-136 [facility] Work Phone: ALT enzyme act/vol 30 U/L Normal 30-65 [facility] Internal Medicine Work Phone: Anion gap 3 molar conc 2 mmol/L Abnormal 5-15 [facility] Internal Medicine Work Phone: Anion gap molar conc 2 mmol/L Abnormal 5-15 Comp rehensive Internal Medicine Work Phone: AST enzyme act/vol 22 U/L Normal 15-37 [facility] Work Phone: Bilirubin mass conc 0.30 mg/dL Normal 0.00-1.00 Compr [facility] Internal Medicine Work Phone: Calcium mass conc 8.5 mg/dL Normal 8.5-10.1 Compreh [facility] Work Phone: Chloride molar conc 106 mmol/L Normal 98-107 Compr ehensive Internal Medicine Work Phone: CO2 molar conc 30.9 mmol/L Normal 21.0-32.0 Comprehen sive Internal Medicine Work Phone: Creatinine mass conc 0.8 mg/dL Normal 0.6-1.0 Comp rehensive Internal Medicine Work Phone: GFR/1.73 sq M predicted among blacks MDRD vol rate/area (S/P/Bld) 92 mL/min/{1.73_m2} Normal Comprehe nsive Internal Medicine Work Phone: Comment on above: ESTIMATED GLOMERULAR FILTRATION RATE The National Kidney Foundation (NKF) guidelines forChronic kidney disease (CKD) recommends all laboratoriesestimate the level of glomerular filtration rate (GFR)in patients from age 18 - 70 years of age.The eGFR for patient's is the eGFRmultiplied by 1.212. [facility] Laboratory uses the abbreviated Modification of Diet inRenal Disease (MDRD) study equation to calculate the eGFR.The Estimated GFR equation is not applicable for patients<18 years of age or patients >70 years of age.The following conditions may alter the eGFR calculationresult: extremes in body size, severe malnutrition orobesity, skeletal muscle disease, paraplegia, quadriplegia,vegetarian diet, , certain drug therapy and rapidlychanging kidney function. Association of GFR and Staging of Kidney Disease*GFR (mL/min) With Kidney Disease W/O Kidney Disease>/= 90 Stage One Tqzyvo27 - 89 Stage Two Suspect Decreased GFR30 - 59 Stage Three Stage Three15 - 29 Stage Four Stage Four< 15 or Dialysis Stage Five Stage Five *Each stage assumes the associated GFR level has been ineffect for at least three months.Additional studies & clinical assessments are indicated toconclude diagnosis of Chronic Kidney Disease (CKD). GFR/1.73 sq M.predicted MDRD (S/P/Bld) [Vol rate/Area] 76 mL/min/{1.73_m2} Normal Comprehensiv e [facility] Work Phone: GFR/1.73 sq M.predicted MDRD vol rate/area 76 mL/min/{1.73_m2} Normal Comprehensiv e [facility] Medicine Work Phone: Globulin Calculated mass conc (S) 3.3 g/dL Normal 2.7-4.2 [facility] Work Phone: Globulin mass conc (S) 3.3 g/dL Normal 2.7-4.2 [facility] Work Phone: Glucose mass conc 79 mg/dL Normal 70-110 Compreh ensive [facility] Work Phone: Potassium molar conc 4.1 mmol/L Normal 3.5-5.1 Comp rehensive Internal Medicine Work Phone: Protein mass conc 6.8 g/dL Normal 6.4-8.2 Compreh ensive [facility] Work Phone: Sodium molar conc 139 mmol/L Normal 136-145 Compreh ensive [facility] Work Phone: Urea nitrogen mass conc 20 mg/dL Abnormal 7-18 [facility] Work Phone: Urea nitrogen/Creatinine mass ratio 25.0 {RATIO} Abnormal 10-20 [facility] Work Phone: LIPIDOrdered By: System Shea jorge on 04-10-2008 Cholesterol in HDL mass conc 80 mg/dL Normal [facility] Work Phone: Comment on above: Reference Range HDL <40 mg/dL Low HDL Cholesterol HDL >or= 60 mg/dL High HDL Cholesterol Cholesterol in LDL mass conc 81 mg/dL Normal 0-130 [facility] Work Phone: Cholesterol in VLDL mass conc 11 mg/dL Normal 5-40 [facility] Work Phone: Cholesterol mass conc 172 mg/dL Normal Com prehensive [facility] Work Phone: Comment on above: <200 mg/dL Desirable 200-240 mg/dL Borderline >240 mg/dL High Risk Triglyceride mass conc 56 mg/dL Normal [facility] Work Phone: Comment on above: Serum Triglycerides Reference Interval Normal <150 mg/dL Borderline high 150 - 199 mg/dL High 200 - 499 mg/dL Very High > or = 500 mg/dL TSHOrdered By: System [employer] r on 04-10-2008 Thyrotropin Qn 2.48 {uIU/mL} Normal 0.34-4.82 Compreh ensive [facility] Work Phone: VIT D,25 [id number] By: Fuentes stem [employer] Maker on 04-10-2008 VIT D,25 86000 43.1 ng/mL Normal 32.0-100.0 Comprehens [facility] Work Phone: Comment on above: Recent studies consi brittany the lower limit of 32.0 ng/mL to mari threshold for optimal health.Servando MA. J Nutr. 2004;135(2):317-22.Performed At: [employer] [id number] DEXA BONE DENSITY STUDY (HP) Ordered By: Parts Assembler on 03-18-2008 DEXA BONE DENSITY STUDY (HP) See Note Normal [facility] Work Phone: Comment on above: Exam Number: [id number] BONE DENSITOMETRY HISTORYOsteopenia. TECHNIQUE Bone densitometry of the lumbar spine and left hip was performed. Thebest criteria for evaluation of osteoporosis is the T-value, whichrepresents the comparison of the patient's bone mass to an expectedpeak bone mass. For most patients, the mean T-value of L1 through L4is used to evaluate the lumbar spine. Based on the newest WorldHealth Organization classifications, the hip is evaluated by utilizingthe lower of the T-value of the total hip or the T-value of thefemoral neck. FINDINGSIn this patient, the mean T-value of L1 through L4 is minus 2.1,which is in the range of osteopenia. Bone mineral density ismeasured at 0.5% more than in 1998, and 1.1% less than in 2006.Digital lateral view for evaluation of vertebral deformity only demonstrates mild concavity of the superior end plates of L3, L2, andL1, as well as several thoracic vertebral bodies. There are nocompression fractures identified. The T-value of the left femoral neck is minus 1.5, which is in therange of osteopenia. The T-value of the total left hip is minus 0.4,which is nor0.7% less than in 1998, and 1.4% less than in 2006. IMPRESSIONThere is osteopenia of the lumbar spine and left hip. Reported By: DIANA DAVENPORT M.D. CHEST WITHOUT CONTRASTOrdere d By: Parts Assembler on 11-07-2007 CHEST WITHOUT CONTRAST See Note Normal [facility] Work Phone: Comment on above: Exam Number: [id number] CT CHEST -- NONCONTRAST CLINICAL STATEMENTPrevious abnormal chest CT. Previous studies of May 29, 2007 and July 01, 2005 were reviewed. Fibrotic-appearing changes at the right lung apex are stable. Thereis minimal stranding compatible with fibrosis also present on the leftside. No new lung nodules are found. Some linear atelectasis orscarring is present at the left lung base. Minimal infiltrate in thelingula seen on May 29, 2007, has resolved. Hilar and mediastinallymph nodes are not enlarged. The included portions of the upperabdomen and the chest wall are unremarkable. IMPRESSIONEssentially negative study. There is some stable fibrosis at theapices, greater on the right. Some linear scarring or atelectasis ispresent at the left base and prior opacity in the left lingula hasbeen reaerated. Reported By: MYLES ANDRADE M.D. UNILAT LT DIAG DIGITAL & CAD Ordered By: Parts Assembler on 07-18-2007 UNILAT LT DIAG DIGITAL & CAD See Note Normal [facility] Work Phone: Comment on above: Exam Number: [id number] DIAGNOSTIC DIGITAL MAMMOGRAM CLINICAL INFORMATIONAbnormal mammogram. Digital diagnostic images of the left breast were obtained forclarification of a finding seen on the recent exam of July 09, 2007. Spot compression as well as other additional views were obtained. Images demonstrate no persistent mammographic finding. There is noevidence of mass, spiculation or distortion. The area in question isbelieved to have been the result of superimposed fibroglandularelements. IMPRESSION1. There is no persistent or suspicious mammographic finding on theadditional views as detailed above. Mammographic followup in 1 yearwould be recommended.2. BIRADS code 2, 1-year followup. A letter regarding the results has been sent to the patient. This interpretation was rendered by a radiologist certified under theMammography Quality Standards Act of 1992 (MQSA). The mammograms werealso examined with computer-aided detection software ([employer] Reported By: VALERIE GOTTLIEB M.D. Pap IG (Image Guided)Ordered By: Parts Assembler on 07-17-2007 Microscopic observation Other stain Nom (Unsp spec) . Normal Comprehens [facility] Work Phone: Comment on above: This liquid based Th inPrep(R) pap test was screened with theuse of an image guided system.The Pap smear is a screening test designed to aid in the detection ofpremalignant and malignant conditions of the uterine cervix. It is not adiagnostic procedure and should not be used as the sole means of detectingcervical cancer. Both false-positive and false-negative reports do occur. . Source.............C ervical;EndocervicalNo. of containers..01 CYTYC Thin Prep VialPERFORMED BY: [employer] [address] [id number] Pathology report final diagnosis Narrative SPRCS Normal [facility] Work Phone: Comment on above: NEGATIVE FOR INTRAEP ITHELIAL LESION AND MALIGNANCY.CELLULAR CHANGES ASSOCIATED WITH ATROPHY ARE PRESENT.Satisfactory for evaluation. Endocervical component may not bedistinguished in cases of atrophy.V76.2 ; Screening for malignant neoplasm of the cervixJuanita Addison Rn Observation (ASCP) Source.............C ervical;EndocervicalNo. of containers..01 CYTYC Thin Prep VialPERFORMED BY: [employer] [address] [id number] BILAT SCRN DIGITAL & CADOrde red By: Parts Assembler on 07-09-2007 BILAT SCRN DIGITAL & CAD See Note Normal [facility] Work Phone: Comment on above: Exam Number: [id number] BILATERAL SCREENING MAMMOGRAPHY HISTORYRoutine screening. COMPARISONComparison is made to prior studies of June 27, 2006 and June. TECHNIQUERoutine MLO and CC views were acquired. FINDINGSThere are scattered fibroglandular elements present. There are benignvascular calcifications shown throughout both breasts. Additionalbenign calcifications are shown in the left breast. Shown on the CCview of the left breast central to the nipple in the anterior depth isan area of added parenchymal density which is more conspicuous thanthe prior study. This may simply represent a summation artifact,however, further evaluation with spot compression view would besuggested. Elsewhere no suspicious cluster of microcalcification,area of architectural distortion, or three-dimensional spiculatedmass. IMPRESSION1. Focal asymmetric density left breast on the CC view only. Further evaluation with spot compression CC views and old medial and old lateral CC views would be suggested.2. BIRADS code 0. Incomplete. Followup with additional views of the left breast. A letter regarding these results has been sent to the patient. This interpretation was rendered by a radiologist certified underthe Mammography Quality Standards Act of 1992 (MQSA). The mammogramswere also examined with computer-aided detection software([employer].). Reported By: VALERIE SAMS M.D. CHEST, PA AND LATERALOrdered By: Parts Assembler on 07-04-2007 CHEST, PA AND LATERAL See Note Normal Com prehensive [facility] Work Phone: Comment on above: Exam Number: [id number] PA AND LATERAL CHEST CLINICAL INFORMATIONBacterial pneumonia. Frontal and lateral images of the chest were obtained and compared toApr2005 and also the recent CT scan of May 29, 2007. The heart size is within normal limits as is the pulmonaryvasculature. Lungs demonstrate no acute parenchymal process and noevidence of effusion. Lingular process identified on the CT scan isnot evident radiographically. Lungs appear clear. No effusions areseen. Hilar structures are within normal limits. Incidental note ismade of mild degenerative changes in the thoracic spine. IMPRESSIONNo evidence of acute cardiopulmonary process. The lingular processidentified on the recent CT scan is not seen. Reported By: VALERIE GOTTLIEB M.D. C-REACTIVE PROTOrdered By: S ystem Plaster Model And Mold Maker on 05-29-2007 CRP mass conc 1.14 mg/L Normal 0.0-6.0 Comprehensi ve Internal Medicine Work Phone: Comment on above: Test performed using the Dimension C-Reactive ProteinExtended Range assay method. This assay meets the AHA/CDC 2003 recommendations fordetermining patients at high risk for cardiovasculardisease. Reference: High risk CRP >3.0 mg/L CBCD,SMEAR DIFFOrdered By: Gary barrosotem Plaster Model And Mold Maker on 05-29-2007 Band form neutrophils/100 WBC (Bld) 1 % Normal 0-5 [facility] Work Phone: Band form neutrophils/100 WBC Manual cnt (Bld) 1 % Normal 0-5 [facility] Work Phone: Eosinophils/100 WBC (Bld) 2 % Normal 0-5 [facility] Work Phone: Eosinophils/100 WBC Auto (Bld) 2 % Normal 0-5 [facility] Work Phone: Erythrocyte distribution width Auto Ratio (RBC) 13.5 % Normal 11.6-14.6 [facility] Work Phone: Erythrocyte distribution width Ratio (RBC) 13.5 % Normal 11.6-14.6 [facility] Work Phone: Hematocrit Auto Volume Fraction (Bld) 39.9 % Normal 37-47 Comprehens [facility] Internal Medicine Work Phone: Hematocrit Volume Fraction (Bld) 39.9 % Normal 37-47 [facility] Work Phone: Hemoglobin mass conc (Bld) 13.6 g/dL Normal 12.0-16.0 [facility] Work Phone: Lymphocytes/100 WBC (Bld) 36 % Normal 19-41 [facility] Work Phone: Lymphocytes/100 WBC Auto (Bld) 36 % Normal 19-41 [facility] Work Phone: MCH Auto Entitic mass (RBC) 30.5 pg Normal 27.0-32.0 [facility] Work Phone: MCH Entitic mass (RBC) 30.5 pg Normal 27.0-32.0 [facility] Work Phone: MCHC Auto mass conc (RBC) 34.1 g/dL Normal 32-36 [facility] Work Phone: MCHC mass conc (RBC) 34.1 g/dL Normal 32-36 Comp rehensive Internal Medicine Work Phone: MCV Auto Entitic volume (RBC) 89.5 fL Normal 81-99 [facility] Work Phone: MCV Entitic volume (RBC) 89.5 fL Normal 81-99 [facility] Work Phone: Monocytes/100 WBC (Bld) 4 % Normal 0-10 [facility] Work Phone: Monocytes/100 WBC Auto (Bld) 4 % Normal 0-10 [facility] Work Phone: Platelets #/vol (Bld) 221 10*3/uL Normal 150-450 [facility] Work Phone: Platelets #/vol (Bld) SeeNote Normal [facility] prehensive Internal Medicine Work Phone: Comment on above: Result: ADEQUATE Platelets Auto #/vol (Bld) 221 10*3/uL Normal 150-450 [facility] Work Phone: RBC #/vol (Bld) 4.45 {M/mm3} Normal 4.2-5.4 Compreh ensive [facility] Medicine Work Phone: RBC Auto #/vol (Bld) 4.45 {M/mm3} Normal 4.2-5.4 [facility] Work Phone: WBC #/vol (Bld) 5.5 10*3/uL Normal 4.4-11.0 Comprehe nsive Internal Medicine Work Phone: WBC Auto #/vol (Bld) 5.5 10*3/uL Normal 4.4-11.0 [facility] prehensive Internal Medicine Work Phone: CBCD,SMEAR DIFF 100 1 Normal [facility] Work Phone: CBCD,SMEAR DIFF 57 % Normal 47-70 [facility] Work Phone: CBCD,SMEAR DIFF 1 % Normal 0-5 [facility] Work Phone: CORONALS,SAG,MULTI,OBL,3-D R ECOrdered By: Parts Assembler on 05-29-2007 CORONALS,SAG,MULTI,OB L,3-D REC See Note Normal [facility] Work Phone: Comment on above: Exam Number: [id number] CT PULMONARY ANGIOGRAM AND CHEST CT REASON FOR EXAMRight-sided chest discomfort. Chest pain. Contrast enhanced MCP was performed. Axial reconstructions obtained.At a separate work station 2D and 3D axial, coronal, and sagittalreconstructions were obtained. All images viewed at the mediastinaland lung windows. There is adequate contrast opacification of pulmonary arterial tree. There is no filling defect or vessel cutoff to indicatepulmonary embolus. Thoracic aorta is normal in course, caliber and contour withoutaneurysmal dissection. CHEST CT There is adequate mediastinal and hilar vascular enhancement. Thereis no CT significant mediastinal or hilar adenopathy. Lungs are wellaerated. There are linear scar-like opacities in both lung apices. There is small consolidation in the lingular segment of the left upperlobe. There is no segmental or lobar consolidation or effusion. Scans through the upper abdomen are noncontributory. IMPRESSION1. Negative for pulmonary embolus.2. Negative for thoracic aortic dissection. 3. Subsegmental parenchymal consolidation involving the lingularsegment of the left upper lobe. [facility] Reported By: JERAMIE HERNANDEZ M.D. Result: ADEQUATE Result: NORM C+C Exam Number: [id number] CT PULMONARY ANGIOGRAM AND CHEST CT REASON FOR EXAMRight-sided chest discomfort. Chest pain. Contrast enhanced MCP was performed. Axial reconstructions obtained.At a separate work station 2D and 3D axial, coronal, and sagittalreconstructions were obtained. All images viewed at the mediastinaland lung windows. There is adequate contrast opacification of pulmonary arterial tree. There is no filling defect or vessel cutoff to indicatepulmonary embolus. Thoracic aorta is normal in course, caliber and contour withoutaneurysmal dissection. CHEST CT There is adequate mediastinal and hilar vascular enhancement. Thereis no CT significant mediastinal or hilar adenopathy. Lungs are wellaerated. There are linear scar-like opacities in both lung apices. There is small consolidation in the lingular segment of the left upperlobe. There is no segmental or lobar consolidation or effusion. Scans through the upper abdomen are noncontributory. IMPRESSION1. Negative for pulmonary embolus.2. Negative for thoracic aortic dissection. 3. Subsegmental parenchymal consolidation involving the lingularsegment of the left upper lobe. This is new since previous study ofApr2005. Reported By: JERAMIE HERNANDEZ M.D. D-DIMER QUANTOrdered By: Brianne tem [employer] Model [employer] Maker on 05-29-2007 D-DIMER QUANT <200 Normal Comprehensi Internal Medicine Work Phone: Comment on above: NORMAL D-Dimer level indicates no DVT or PE. ESROrdered By: System Manage r on 05-29-2007 ESR Velocity (Bld) 4 mm/h Normal 0-30 [facility]pre [facility] Work Phone: TROPONIN-IOrdered By: Parts Assembler on 05-29-2007 Troponin I.cardiac mass conc ng/mL Normal [facility] Work Phone: Comment on above: TROPONIN-I EXPECTED VALUES < 0.50 NEGATIVE 0.50 - 1.49 INDETERMINANT > OR = 1.50 SUGGEST DE CBCD,SMEAR DIFFOrdered By: Gary ystem Plaster Model [employer] Maker on 11-03-2006 Band form neutrophils/100 WBC (Bld) 2 % Normal 0-5 [facility] Work Phone: Band form neutrophils/100 WBC Manual cnt (Bld) 2 % Normal 0-5 [facility] Work Phone: Eosinophils/100 WBC (Bld) 3 % Normal 0-5 [facility] Work Phone: Eosinophils/100 WBC Auto (Bld) 3 % Normal 0-5 [facility] Work Phone: Erythrocyte distribution width Auto Ratio (RBC) 12.9 % Normal 11.6-14.6 [facility] Work Phone: Erythrocyte distribution width Ratio (RBC) 12.9 % Normal 11.6-14.6 [facility] Work Phone: Hematocrit Auto Volume Fraction (Bld) 35.7 % Abnormal 37-47 Comprehens [facility] Work Phone: Hematocrit Volume Fraction (Bld) 35.7 % Abnormal 37-47 [facility] Work Phone: Hemoglobin mass conc (Bld) 12.2 g/dL Normal 12.0-16.0 [facility] Work Phone: Lymphocytes/100 WBC (Bld) 33 % Normal 19-41 [facility] Work Phone: Lymphocytes/100 WBC Auto (Bld) 33 % Normal 19-41 [facility] Work Phone: MCH Auto Entitic mass (RBC) 30.5 pg Normal 27.0-32.0 [facility] Work Phone: MCH Entitic mass (RBC) 30.5 pg Normal 27.0-32.0 [facility] Work Phone: MCHC Auto mass conc (RBC) 34.2 g/dL Normal 32-36 [facility] Work Phone: MCHC mass conc (RBC) 34.2 g/dL Normal 32-36 [facility] Work Phone: MCV Auto Entitic volume (RBC) 89.2 fL Normal 81-99 [facility] Work Phone: MCV Entitic volume (RBC) 89.2 fL Normal 81-99 [facility] Work Phone: Platelets #/vol (Bld) SeeNote Normal Com prehensive Internal Medicine Work Phone: Comment on above: Result: ADEQUATE Platelets #/vol (Bld) 266 10*3/uL Normal 150-450 [facility] Work Phone: Platelets Auto #/vol (Bld) 266 10*3/uL Normal 150-450 [facility] Work Phone: RBC #/vol (Bld) 4.00 {M/mm3} Abnormal 4.2-5.4 Compreh ensive Internal Medicine Work Phone: RBC Auto #/vol (Bld) 4.00 {M/mm3} Abnormal 4.2-5.4 [facility] Work Phone: WBC #/vol (Bld) 3.3 10*3/uL Abnormal 4.4-11.0 Comprehe [facility] Work Phone: WBC Auto #/vol (Bld) 3.3 10*3/uL Abnormal 4.4-11.0 Com [facility] Work Phone: CBCD,SMEAR DIFF 100 1 Normal [facility] Work Phone: CBCD,SMEAR DIFF 11 % Abnormal 0-10 [facility] Internal Medicine Work Phone: CBCD,SMEAR DIFF SeeNote Normal [facility] Work Phone: Comment on above: Result: ADEQUATE CBCD,SMEAR DIFF 1+ Normal [facility] Work Phone: CBCD,SMEAR DIFF N CHROM Normal [facility] Work Phone: CBCD,SMEAR DIFF 51 % Normal 47-70 [facility] Work Phone: CBCD,SMEAR DIFF 2 % Normal 0-5 [facility] Work Phone: COMP METABOLICOrdered By: Fuentes stem Plaster Model And Mold Maker on 11-03-2006 Albumin mass conc 3.6 g/dL Normal 3.4-5.0 [facility]pre[facility] Work Phone: Albumin/Globulin mass ratio 1.1 {RATIO} Normal 0.9-2.4 [facility] Internal Medicine Work Phone: ALP enzyme act/vol 59 U/L Normal 50-136 [facility] Internal Medicine Work Phone: ALT enzyme act/vol 28 [iU]/L Abnormal 30-65 [facility] Medicine Work Phone: Anion gap 3 molar conc 7 mmol/L Normal 5-15 [facility] Internal Medicine Work Phone: Anion gap molar conc 7 mmol/L Normal 5-15 [facility] Internal Medicine Work Phone: AST enzyme act/vol 21 U/L Normal 15-37 [facility] Internal Medicine Work Phone: Bilirubin mass conc 0.72 mg/dL Normal 0.00-1.00 [facility] Internal Medicine Work Phone: Calcium mass conc 8.6 mg/dL Normal 8.5-10.1 Compreh [facility] Work Phone: Chloride molar conc 105 mmol/L Normal 98-107 Compr ehensive [facility] Work Phone: CO2 molar conc 27.6 mmol/L Normal 21.0-32.0 Comprehen sive [facility] Work Phone: Comment on above: Please Note Refer ence Interval Change Creatinine mass conc 0.7 mg/dL Normal 0.6-1.0 Comp rehensive [facility] Work Phone: Globulin Calculated mass conc (S) 3.4 g/dL Normal 2.7-4.2 [facility] Work Phone: Comment on above: Please Note Refer ence Interval Change Globulin mass conc (S) 3.4 g/dL Normal 2.7-4.2 [facility] Work Phone: Comment on above: Please Note Refer ence Interval Change Glucose mass conc 82 mg/dL Normal 70-110 Compreh [facility] Work Phone: Potassium molar conc 4.0 mmol/L Normal 3.5-5.1 Comp rehensive [facility] Work Phone: Protein mass conc 7.0 g/dL Normal 6.4-8.2 Compreh [facility] Work Phone: Sodium molar conc 140 mmol/L Normal 136-145 Com[facility] Work Phone: Urea nitrogen mass conc 25 mg/dL Abnormal 7-18 [facility] Work Phone: Urea nitrogen/Creatinine mass ratio 35.7 {RATIO} Abnormal 10-20 [facility] Work Phone: MGOrdered By: Parts Assembler on 11-03-2006 Magnesium mass conc 2.1 mg/dL Normal 1.5-2.2 [facility] ehensive Internal Medicine Work Phone: MG 2.1 mg/dL Normal 1.5-2.2 [facility] Work Phone: TSHOrdered By: System Manage r on 11-03-2006 Thyrotropin Qn 1.98 {uIU/mL} Normal 0.34-4.82 Compreh ens[facility] Work Phone: CULTURE, URINEOrdered By: Feuntes stem Plaster Model And Mold Maker on 10-31-2006 Bacteria identified Cx Nom (U) See Note Normal [facility] Work Phone: Comment on above: COLONY COUNT >100,00 0 ORGANISM 1: KLEBSIELLA PNEUMONIAE KLEBSIELLA PNEUMONIAE: REACTION AMOXICILLIN/CLAVULANIC ACID $$ <=8 S AMPICILLIN GN $ >=32 R CARBENICILLIN $$$ 128 R CEFAZOLIN $ <=8 S CEFOXITIN $$ <=2 S CEFTRIAXONE $$$ <=8 S CEFUROXIME $$ <=4 S CIPROFLOXACIN GN $$$ <=0.5 S GENTAMICIN GN $ <=0.5 S LEVOFLOXACIN $$ <=1 S NALIDIXIC ACID $$$ <=16 S NITROFURANTOIN $ 64 I OFLOXACIN $$$ <=1 S TETRACYCLINE $$ <=1 S TICARCILLIN GN NOT PSEUDO $$$ <=16 S TRIMETHOPRIM/SULFAMETHOXAZ $$ <=10 S MAMM, BILAT SCRN DIGITAL & C ADOrdered By: Parts Assembler on 06-27-2006 MAMM, BILAT SCRN DIGITAL & CAD See Note Normal [facility] Work Phone: Comment on above: Exam Number: [id number] BILATERAL DIGITAL SCREENING MAMMOGRAM CLINICAL INFORMATIONScreening. TECHNIQUEBilateral digital mammography was performed as a screening exam. Standard CC and MLO views were obtained. COMPARISONComparison was made to previous exam of 04-28-05 and 06-23-04. FINDINGSThere has been no significant change in the overall appearance of thebreasts. There are scattered fibroglandular elements bilaterally. Nodominant masses are evident. No suspicious groups of calcificationsare seen. There are a few punctate benign calcifications present aswell as some benign vascular calcification. No areas of spiculationor distortion are found. FINAL IMPRESSIONBIRADS category 2. Benign findings. IMPRESSIONStable appearance of the breasts with no specific mammographicevidence of malignancy. Annul mammography is recommended. Reported By: VALERIE GOTTLIEB M.D. Vital Signs Date Time Vital Sign Value Performing Clinician Facility 06-04-2024 13:29-0400 Body height 160.[address] Cole Grovre DO Work Phone: [facility] 06-04-2024 13:29-0400 Body mass index (BMI) [Ratio] 22.6 kg/m2 Dr. Cole Grover DO Work Phone: [facility] 06-04-2024 13:29-0400 Body weight 58.[address] Cole Grover DO Work Phone: [facility] 06-04-2024 13:29-0400 Diastolic blood pressure 64 mm[Hg] Dr. Cole Grover DO Work Phone: [facility] 06-04-2024 13:29-0400 Heart rate 78 /min Dr. Cole Grover DO Work Phone: [facility] 06-04-2024 13:29-0400 Respiratory rate 14 /min Dr. Cole Grover DO Work Phone: [facility] 06-04-2024 13:29-0400 Systolic blood pressure 105 mm[Hg] Dr. Cole Grover DO Work Phone: [facility] 03-17-2023 10:12-0500 Body height 160.[address] Cole Grover Work Phone: [facility] 03-17-2023 10:12-0500 Body mass index (BMI) [Ratio] 23.1 kg/m2 Dr. Cole Grover Work Phone: [facility] 03-17-2023 10:12-0500 Body weight 59.[address] Nielsen Fast Work Phone: [facility] 03-17-2023 10:12-0500 Diastolic blood pressure 62 mm[Hg] Dr. Cole Grover Work Phone: [facility] 03-17-2023 10:12-0500 Heart rate 70 /min Dr. Nielsen Fast Work Phone: [facility] 03-17-2023 10:12-0500 Respiratory rate 14 /min Dr. Nielsen Fast Work Phone: [facility] 03-17-2023 10:12-0500 Systolic blood pressure 106 mm[Hg] Dr. Nielsen Fast Work Phone: [facility] 10-27-2022 14:29-0400 Body height 160.[address] Nielsen Fast Work Phone: [facility] 09-12-2022 08:33-0400 Body height 161.93 cm Cole A Fast DO Work Phone: [facility] Work Phone: 09-12-2022 08:33-0400 Body mass index (BMI) [Ratio] 22.58 kg/m2 Cole A Fast DO Work Phone: [facility]; [facility] Work Phone: 09-12-2022 08:33-0400 Body surface area Derived from formula 1.63 m2 Cole A Fast DO Work Phone: [facility]; [facility] Work Phone: 09-12-2022 08:33-0400 Body temperature 97.1 [degF] Cole A Fast DO Work Phone: [facility]; [facility] Work Phone: 09-12-2022 08:33-0400 Body weight 59.19 kg Cole A Fast DO Work Phone: [facility]; [facility] Work Phone: 09-12-2022 08:33-0400 Diastolic blood pressure 72 mm[Hg] Cole A Fast DO Work Phone: [facility]; [facility] Work Phone: 09-12-2022 08:33-0400 Heart rate 68 /min Cole A Fast DO Work Phone: [facility]; [facility] Work Phone: 09-12-2022 08:33-0400 Respiratory rate 16 /min Cole A Fast DO Work Phone: [facility]; [facility] Work Phone: 09-12-2022 08:33-0400 Systolic blood pressure 135 mm[Hg] Cole Grover DO Work Phone: [facility]; [facility] Work Phone: 09-05-2022 14:11-0400 Body height 160.[address] Cole Grover Work Phone: [facility] 09-05-2022 14:11-0400 Body mass index (BMI) [Ratio] 23.5 kg/m2 Dr. Cole Grover Work Phone: [facility] 09-05-2022 14:11-0400 Body weight 60.[address] Cole Grover Work Phone: [facility] 09-05-2022 14:11-0400 Diastolic blood pressure 71 mm[Hg] Dr. Cole Grover Work Phone: [facility] 09-05-2022 14:11-0400 Heart rate 65 /min Dr. Cole Grover Work Phone: [facility] 09-05-2022 14:11-0400 Respiratory rate 16 /min Dr. Cole Grover Work Phone: [facility] 09-05-2022 14:11-0400 Systolic blood pressure 132 mm[Hg] Dr. Cole Grover Work Phone: [facility] 06-03-2022 09:16-0400 Body height 161.93 cm Reina Estrada CMA [facility]; [facility] Work Phone: 06-03-2022 09:16-0400 Body mass index (BMI) [Ratio] 22.9 kg/m2 Reina Estrada [facility]; [facility] Work Phone: 06-03-2022 09:16-0400 Body surface area Derived from formula 1.64 m2 Reina Estrada MODEL MAKER SCALE [facility]; [facility] Work Phone: 06-03-2022 09:16-0400 Body temperature 97.7 [degF] Reina Estrada [facility]; [facility] Work Phone: 06-03-2022 09:16-0400 Body weight 60.05 kg Reina Estrada [facility]; [facility] Work Phone: 06-03-2022 09:16-0400 Diastolic blood pressure 62 mm[Hg] Reina Estrada [facility]; [facility] Work Phone: 06-03-2022 09:16-0400 Heart rate 71 /[facility] Work Phone: 06-03-2022 09:16-0400 Respiratory rate 16 /min Reina Estrada [facility]; [facility] Work Phone: 06-03-2022 09:16-0400 Systolic blood pressure 120 mm[Hg] [facility] Work Phone: 01-11-2022 08:52-0500 Body height 161.93 cm [facility]; [facility] Work Phone: 01-11-2022 08:52-0500 Body mass index (BMI) [Ratio] 22.21 kg/m2 [facility] Work Phone: 01-11-2022 08:52-0500 Body surface area Derived from formula 1.62 m2 [facility] Work Phone: 01-11-2022 08:52-0500 Body temperature 97.8 [degF] [facility] Work Phone: 01-11-2022 08:52-0500 Body weight 58.23 kg [facility] Work Phone: 01-11-2022 08:52-0500 Diastolic blood pressure 68 mm[Hg] Reina Estrada [facility]; [facility] Work Phone: 01-11-2022 08:52-0500 Heart rate 67 /min Reina Estrada [facility]; [facility] Work Phone: 01-11-2022 08:52-0500 Respiratory rate 16 /min Reina Estrada [facility]; [facility] Work Phone: 01-11-2022 08:52-0500 Systolic blood pressure 122 mm[Hg] Reina Estrada [facility]; [facility] Work Phone: 12-21-2021 10:36-0400 Body height 162.6 cm Ness Kalka PA-C Work Phone: [facility] 12-21-2021 10:36-0400 Body weight 59.06 kg Ness Kalka PA-C Work Phone: [facility] 12-21-2021 10:36-0400 Diastolic blood pressure 70 mm[Hg] Ness Kalka PA-C Work Phone: [facility] 12-21-2021 10:36-0400 Heart rate 54 /min Ness Kalka PA-C Work Phone: [facility] 12-21-2021 10:36-0400 Systolic blood pressure 132 mm[Hg] Ness Kalka PA-C Work Phone: [facility] 09-10-2021 09:41-0400 Body height 161.93 cm Reina Estrada [facility]; [facility] Work Phone: 09-10-2021 09:41-0400 Body mass index (BMI) [Ratio] 22.17 kg/m2 [facility]; [facility] Work Phone: 09-10-2021 09:41-0400 Body surface area Derived from formula 1.61 m2 [facility] Work Phone: 09-10-2021 09:41-0400 Body temperature 96.8 [degF] Reina Estrada [facility]; [facility] Work Phone: 09-10-2021 09:41-0400 Body weight 58.12 kg Reina Estrada [facility]; [facility] Work Phone: 09-10-2021 09:41-0400 Diastolic blood pressure 68 mm[Hg] Reina Estrada [facility]; [facility] Work Phone: 09-10-2021 09:41-0400 Heart rate 68 /min Reina Estrada [facility]; [facility] Work Phone: 09-10-2021 09:41-0400 Respiratory rate 16 /min Reina Estrada [facility]; [facility] Work Phone: 09-10-2021 09:41-0400 Systolic blood pressure 108 mm[Hg] Reina Estrada [facility]; [facility] Work Phone: 05-26-2021 09:51-0400 Body height 161.93 cm Reina Estrada [facility]; [facility] Work Phone: 05-26-2021 09:51-0400 Body mass index (BMI) [Ratio] 21.99 kg/m2 [facility]; [facility] Work Phone: 05-26-2021 09:51-0400 Body surface area Derived from formula 1.61 m2 Reinajayson Estrada [facility]; [facility] Work Phone: 05-26-2021 09:51-0400 Body temperature 97.1 [degF] Reina Esrtada [facility]; [facility] Work Phone: 05-26-2021 09:51-0400 Body weight 57.66 kg [facility]; [facility] Work Phone: 03-23-2022 09:51-0400 Diastolic blood pressure 64 mm[Hg] Reina Estrada [facility]; [facility] Work Phone: 05-26-2021 09:51-0400 Heart rate 77 /min Reina Estrada [facility]; [facility] Work Phone: 05-26-2021 09:51-0400 Respiratory rate 16 /min Reina Estrada [facility]; [facility] Work Phone: 05-26-2021 09:51-0400 Systolic blood pressure 118 mm[Hg] Reina Estrada [facility]; [facility] Work Phone: 01-15-2021 10:35-0500 Body height 161.93 cm Reina Estrada [facility]; [facility] Work Phone: 01-15-2021 10:35-0500 Body mass index (BMI) [Ratio] 20.61 kg/m2 Reina Estrada [facility]; [facility] Work Phone: 01-15-2021 10:35-0500 Body surface area Derived from formula 1.57 m2 Reina Estrada [facility]; [facility] Work Phone: 01-15-2021 10:35-0500 Body temperature 97 [degF] Reina Estrada [facility]; [facility] Work Phone: 01-15-2021 10:35-0500 Body weight 54.04 kg Reina Estrada [facility]; [facility] Work Phone: 01-15-2021 10:35-0500 Diastolic blood pressure 72 mm[Hg] Reina Estrada [facility]; [facility] Work Phone: 01-15-2021 10:35-0500 Heart rate 68 /min Reina Estrada [facility]; [facility] Work Phone: 01-15-2021 10:35-0500 Respiratory rate 16 /min Reina Estrada [facility]; [facility] Work Phone: 01-15-2021 10:35-0500 Systolic blood pressure 118 mm[Hg] Reina Estrada [facility]; [facility] Work Phone: 11-02-2020 10:17-0400 Body height 161.93 cm [facility]; [facility] Work Phone: 11-02-2020 10:17-0400 Body mass index (BMI) [Ratio] 21.13 kg/m2 [facility] Work Phone: 11-02-2020 10:17-0400 Body surface area Derived from formula 1.58 m2 [facility]; [facility] Work Phone: 11-02-2020 10:17-0400 Body temperature 96.8 [degF] [facility]; [facility] Work Phone: 11-02-2020 10:17-0400 Body weight 55.4 kg [facility] Work Phone: 11-02-2020 10:17-0400 Diastolic blood pressure 62 mm[Hg] [facility] Work Phone: 11-02-2020 10:17-0400 Heart rate 69 /min [facility] Work Phone: 11-02-2020 10:17-0400 Respiratory rate 16 /min [facility] Work Phone: 11-02-2020 10:17-0400 Systolic blood pressure 104 mm[Hg] [facility] Work Phone: 07-28-2020 08:34-0400 Body height 161.93 cm Reina Estrada [facility] Work Phone: 07-28-2020 08:34-0400 Body mass index (BMI) [Ratio] 20.78 kg/m2 Reina Estrada [facility] Work Phone: 07-28-2020 08:34-0400 Body surface area Derived from formula 1.57 m2 [facility] Work Phone: 07-28-2020 08:34-0400 Body temperature 97.1 [degF] Reina Estrada [facility] Work Phone: Comment on above: Method: Thermal Scan 07-28-2020 08:34-0400 Body weight 54.49 kg Reina Estrada [facility] Work Phone: 07-28-2020 08:34-0400 Diastolic blood pressure 64 mm[Hg] Reina Estrada [facility]; [facility] Work Phone: Comment on above: Patient Position: Sitting; Cuff Location : Left Arm; Cuff Size: Standard 07-28-2020 08:34-0400 Heart rate 73 /min Reina Estrada [facility] Work Phone: Comment on above: Pattern: Regular 07-28-2020 08:34-0400 Respiratory rate 16 /min Reina Estrada [facility]; [facility] Work Phone: Comment on above: Pattern: Unlabored 07-28-2020 08:34-0400 Systolic blood pressure 106 mm[Hg] Reina Estrada [facility]; [facility] Work Phone: Comment on above: Patient Position: Sitting; Cuff Location : Left Arm; Cuff Size: Standard 04-29-2020 09:50-0500 BMI (Body Mass Index) 20.78 kg/m2 Reina Estrada [facility] Work Phone: 04-29-2020 09:50-0500 Body Temperature 97.1 [degF] Reina Estrada [facility]; [facility] Work Phone: Comment on above: Method: Thermal Scan 04-29-2020 09:50-0500 Body weight 54.49 kg Reina Estrada [facility]; [facility] Work Phone: 04-29-2020 09:50-0500 BP Diastolic 72 mm[Hg] Reina Estrada [facility]; [facility] Work Phone: Comment on above: Patient Position: Sitting; Cuff Location : Left Arm; Cuff Size: Standard 04-29-2020 09:50-0500 BP Systolic 112 mm[Hg] Reina Estrada [facility]; [facility] Work Phone: Comment on above: Patient Position: Sitting; Cuff Location : Left Arm; Cuff Size: Standard 04-29-2020 09:50-0500 BSA (Body Surface Area) 1.57 m2 Reina Estrada [facility] Work Phone: 04-29-2020 09:50-0500 Height 161.93 cm Reina Estrada [facility]; [facility] Work Phone: 04-29-2020 09:50-0500 Pulse (Heart Rate) 68 /min Reina Estrada [facility]; [facility] Work Phone: Comment on above: Pattern: Regular 04-29-2020 09:50-0500 Respiratory Rate 16 /min Reina Estrada [facility]; [facility] Work Phone: Comment on above: Pattern: Unlabored 03-23-2020 11:37-0500 BMI (Body Mass Index) 21.13 kg/m2 [facility]; [facility] Work Phone: 03-23-2020 11:37-0500 Body Temperature 97.1 [degF] Teresita Garza [facility]; [facility] Work Phone: 03-23-2020 11:37-0500 Body weight 55.4 kg Teresita Slarb [employer] [facility]; [facility] Work Phone: 03-23-2020 11:37-0500 BP Diastolic 80 mm[Hg] Teresita Slarb [employer] [facility]; [facility] Work Phone: Comment on above: Patient Position: Sitting; Cuff Location : Left Arm; Cuff Size: Standard 03-23-2020 11:37-0500 BP Systolic 122 mm[Hg] Teresita Slarb [employer] [facility]; [facility] Work Phone: Comment on above: Patient Position: Sitting; Cuff Location : Left Arm; Cuff Size: Standard 03-23-2020 11:37-0500 BSA (Body Surface Area) 1.58 m2 Teresita Slarb [employer] [facility]; [facility] Work Phone: 03-23-2020 11:37-0500 Height 161.93 cm Teresita Slarb [employer] [facility]; [facility] Work Phone: 03-23-2020 11:37-0500 Pulse (Heart Rate) 91 /min Teresita Alisharb [employer] [facility]; [facility] Work Phone: Comment on above: Pattern: Regular 03-23-2020 11:37-0500 Pulse Oximetry 98 % Cole Fast [facility]; [facility] Work Phone: Comment on above: Room air 03-23-2020 11:37-0500 Respiratory Rate 15 /min Teresita Alisharb [employer] [facility]; [facility] Work Phone: Comment on above: Pattern: Unlabored 03-23-2020 11:37-0500 SaO2% (BldA) [Mass fraction] 98 % Teresita Slarb [employer] [facility]; [facility] Work Phone: Comment on above: Room air 03-09-2020 16:56-0500 BMI (Body Mass Index) 21.8 kg/m2 Reina Estrada [facility]; [facility] Work Phone: 03-09-2020 16:56-0500 Body Temperature 97.1 [degF] Reina Estrada [facility]; [facility] Work Phone: Comment on above: Method: Thermal Scan 03-09-2020 16:56-0500 Body weight 57.15 kg Reina Estrada [facility]; [facility] Work Phone: 03-09-2020 16:56-0500 BP Diastolic 62 mm[Hg] Reina Estrada [facility]; [facility] Work Phone: Comment on above: Patient Position: Sitting; Cuff Location : Left Arm; Cuff Size: Standard 03-09-2020 16:56-0500 BP Systolic 112 mm[Hg] Reina Estrada [facility]; [facility] Work Phone: Comment on above: Patient Position: Sitting; Cuff Location : Left Arm; Cuff Size: Standard 03-09-2020 16:56-0500 BSA (Body Surface Area) 1.6 m2 Reina Estrada [facility]; [facility] Work Phone: 03-09-2020 16:56-0500 Height 161.93 cm Reina Estrada [facility]; [facility] Work Phone: 03-09-2020 16:56-0500 Pulse (Heart Rate) 66 /min Reina Estrada [facility]; [facility] Work Phone: Comment on above: Pattern: Regular 03-09-2020 16:56-0500 Pulse Oximetry 98 % Cole Reilly [facility]; [facility] Work Phone: Comment on above: Room air 03-09-2020 16:56-0500 Respiratory Rate 16 /min Reina Estrada [facility]; [facility] Work Phone: Comment on above: Pattern: Unlabored 03-09-2020 16:56-0500 SaO2% (BldA) [Mass fraction] 98 % Reina Estrada [facility] Internal Medicine; [facility] Work Phone: Comment on above: Room air 01-14-2020 09:03-0500 BMI (Body Mass Index) 21.8 kg/m2 Reina Estrada [facility] Internal Medicine Work Phone: 01-14-2020 09:03-0500 Body Temperature 97.1 [degF] Reina Estrada [facility] Internal Medicine Work Phone: Comment on above: Method: Thermal Scan 01-14-2020 09:03-0500 Body weight 57.15 kg Reina Estrada [facility] Internal Medicine Work Phone: 01-14-2020 09:03-0500 BP Diastolic 62 mm[Hg] Reina Estrada [facility] Internal Medicine Work Phone: Comment on above: Patient Position: Sitting; Cuff Location : Left Arm; Cuff Size: Standard 01-14-2020 09:03-0500 BP Systolic 102 mm[Hg] Reina Estrada [facility] Internal Medicine Work Phone: Comment on above: Patient Position: Sitting; Cuff Location : Left Arm; Cuff Size: Standard 01-14-2020 09:03-0500 BSA (Body Surface Area) 1.6 m2 Reina Estrada [facility] Internal Medicine Work Phone: 01-14-2020 09:03-0500 Height 161.93 cm [facility] Work Phone: 01-14-2020 09:03-0500 Pulse (Heart Rate) 60 /min [facility] Work Phone: Comment on above: Pattern: Regular 01-14-2020 09:03-0500 Respiratory Rate 16 /min Reina Estrada [facility] Internal Medicine Work Phone: Comment on above: Pattern: Unlabored 09-18-2019 11:05-0400 BMI (Body Mass Index) 22.32 kg/m2 [facility] Work Phone: 09-18-2019 11:05-0400 Body Temperature 97.1 [degF] Reina Estrada [facility] Internal Medicine Work Phone: Comment on above: Method: Thermal Scan 09-18-2019 11:05-0400 Body weight 58.51 kg Reina Estrada [facility] Internal Medicine Work Phone: 09-18-2019 11:05-0400 BP Diastolic 66 mm[Hg] Reina Estrada [facility] Internal Medicine Work Phone: Comment on above: Patient Position: Sitting; Cuff Location : Left Arm; Cuff Size: Standard 09-18-2019 11:05-0400 BP Systolic 120 mm[Hg] Reina Estrada [facility] Internal Medicine Work Phone: Comment on above: Patient Position: Sitting; Cuff Location : Left Arm; Cuff Size: Standard 09-18-2019 11:05-0400 BSA (Body Surface Area) 1.62 m2 Reina Estrada [facility] Internal Medicine Work Phone: 09-18-2019 11:05-0400 Height 161.93 cm Reina Estrada [facility] Internal Medicine Work Phone: 09-18-2019 11:05-0400 Pulse (Heart Rate) 66 /min Reina Estrada [facility] Internal Medicine Work Phone: Comment on above: Pattern: Regular 09-18-2019 11:05-0400 Respiratory Rate 16 /min Reina Estrada [facility] Internal Medicine Work Phone: Comment on above: Pattern: Unlabored 03-19-2019 13:32-0500 BMI (Body Mass Index) 21.8 kg/m2 Reina Estrada [facility] Internal Medicine Work Phone: 03-19-2019 13:32-0500 Body Temperature 96.5 [degF] Reina Estrada [facility] Internal Medicine Work Phone: Comment on above: Method: Temporal 03-19-2019 13:32-0500 Body weight 57.15 kg Reina Estrada [facility] Internal Medicine Work Phone: 03-19-2019 13:32-0500 BP Diastolic 70 mm[Hg] Reina Estrada [facility] Internal Medicine Work Phone: Comment on above: Patient Position: Sitting; Cuff Location : Left Arm; Cuff Size: Standard 03-19-2019 13:32-0500 BP Systolic 115 mm[Hg] Reina Estrada [facility] Internal Medicine Work Phone: Comment on above: Patient Position: Sitting; Cuff Location : Left Arm; Cuff Size: Standard 03-19-2019 13:32-0500 BSA (Body Surface Area) 1.6 m2 Reina Estrada [facility] Internal Medicine Work Phone: 03-19-2019 13:32-0500 Height 161.93 cm Reina Estrada [facility] Internal Medicine Work Phone: 03-19-2019 13:32-0500 Pulse (Heart Rate) 84 /min Reina Estrada [facility] Internal Medicine Work Phone: Comment on above: Pattern: Regular 03-19-2019 13:32-0500 Respiratory Rate 16 /min Reina Estrada [facility] Internal Medicine Work Phone: Comment on above: Pattern: Unlabored 01-30-2019 09:03-0500 BMI (Body Mass Index) 21.8 kg/m2 Teresita Slarb BUSINESS SYSTEMS CONSULT[employer] [facility] Internal Medicine Work Phone: 01-30-2019 09:03-0500 Body Temperature 97.9 [degF] Teresita Slarb BUSINESS SYSTEMS CONSULT[employer] [facility] Internal Medicine Work Phone: 01-30-2019 09:03-0500 Body weight 57.15 kg Teresita Slarb [employer] CONS[employer] [facility] Internal Medicine Work Phone: 01-30-2019 09:03-0500 BP Diastolic 64 mm[Hg] Teresita Slarb [employer] SYSTEM[employer] CONSULT[employer] [facility] Internal Medicine Work Phone: Comment on above: Patient Position: Sitting; Cuff Location : Left Arm; Cuff Size: Standard 01-30-2019 09:03-0500 BP Systolic 118 mm[Hg] Teresita Slarb [employer] SYSTEM[employer] CONS[employer] [facility] Internal Medicine Work Phone: Comment on above: Patient Position: Sitting; Cuff Location : Left Arm; Cuff Size: Standard 01-30-2019 09:03-0500 BSA (Body Surface Area) 1.6 m2 Teresita Garza BUSINESS SYSTEM[employer] CONSULT[employer] [facility] Work Phone: 01-30-2019 09:03-0500 Height 161.93 cm Teresita Garza [employer] SYSTEM[employer] CONS[employer] [facility] Work Phone: 01-30-2019 09:03-0500 Pulse (Heart Rate) 64 /min Teresita Garza [employer] [facility] Work Phone: Comment on above: Pattern: Regular 01-30-2019 09:03-0500 Pulse Oximetry 97 % Cole Fast [facility] Work Phone: Comment on above: Room air 01-30-2019 09:03-0500 Respiratory Rate 16 /min Teresita Garza [employer] CONS[employer] [facility] Work Phone: Comment on above: Pattern: Unlabored 01-30-2019 09:03-0500 SaO2% (BldA) [Mass fraction] 97 % Teresita Garza [employer] CONS[employer] [facility]; [facility] Work Phone: Comment on above: Room air 10-29-2018 10:13-0400 BMI (Body Mass Index) 21.45 kg/m2 Cole A Fast DO Work Phone: [facility] Work Phone: 10-29-2018 10:13-0400 Body Temperature 97.4 [degF] Cole A Fast DO Work Phone: [facility] Work Phone: Comment on above: Method: Temporal 10-29-2018 10:130400 Body weight 56.25 kg Cole A Fast DO Work Phone: [facility] Work Phone: 10-29-2018 10:13-0400 BP Diastolic 64 mm[Hg] Cole A Fast DO Work Phone: [facility] Work Phone: Comment on above: Patient Position: Sitting; Cuff Location : Left Arm; Cuff Size: Standard 10-29-2018 10:13-0400 BP Systolic 100 mm[Hg] Cole A Fast DO Work Phone: [facility] Work Phone: Comment on above: Patient Position: Sitting; Cuff Location : Left Arm; Cuff Size: Standard 10-29-2018 10:13-0400 BSA (Body Surface Area) 1.59 m2 Cole A Fast DO Work Phone: [facility] Work Phone: 10-29-2018 10:13-0400 Height 161.93 cm Cole A Fast DO Work Phone: [facility] Work Phone: 10-29-2018 10:13-0400 Pulse (Heart Rate) 78 /min Cole A Fast DO Work Phone: [facility] Work Phone: Comment on above: Pattern: Regular 10-29-2018 10:13-0400 Pulse Oximetry 98 % Cole Fast [facility] Work Phone: Comment on above: Room air 10-29-2018 10:13-0400 Respiratory Rate 16 /min Cole A Fast DO Work Phone: [facility] Work Phone: Comment on above: Pattern: Unlabored 10-29-2018 10:13-0400 SaO2% (BldA) [Mass fraction] 98 % Cole A Fast DO Work Phone: [facility] Internal Medicine; [facility] Work Phone: Comment on above: Room air 07-20-2018 13:29-0400 BMI (Body Mass Index) 21.71 kg/m2 Reina Estrada [facility] Work Phone: 07-20-2018 13:29-0400 Body Temperature 96.1 [degF] Reina Estrada [facility] Work Phone: Comment on above: Method: Temporal 07-20-2018 13:29-0400 Body weight 56.93 kg Reina Estrada [employer] [facility] Work Phone: 07-20-2018 13:29-0400 BP Diastolic 70 mm[Hg] Reina Estrada [facility] Internal Medicine Work Phone: Comment on above: Patient Position: Sitting; Cuff Location : Left Arm; Cuff Size: Standard 07-20-2018 13:29-0400 BP Systolic 122 mm[Hg] Reina Estrada [facility] Internal Medicine Work Phone: Comment on above: Patient Position: Sitting; Cuff Location : Left Arm; Cuff Size: Standard 07-20-2018 13:29-0400 BSA (Body Surface Area) 1.6 m2 Reina Estrada [facility] Internal Medicine Work Phone: 07-20-2018 13:29-0400 Height 161.93 cm Reina Estrada [facility] Internal Medicine Work Phone: 07-20-2018 13:29-0400 Pulse (Heart Rate) 62 /min Reina Estrada [facility] Internal Medicine Work Phone: Comment on above: Pattern: Regular 07-20-2018 13:29-0400 Respiratory Rate 16 /min Reina Estrada [facility] Internal Medicine Work Phone: Comment on above: Pattern: Unlabored 07-20-2018 13:29-0400 Weight 56.93 kg Cole Reilly [facility] Internal Medicine Work Phone: 07-09-2018 09:34-0400 BMI (Body Mass Index) 21.71 kg/m2 Reina Estrada [facility] Internal Medicine Work Phone: 07-09-2018 09:34-0400 Body Temperature 96.9 [degF] Reina Estrada [facility] Internal Medicine Work Phone: Comment on above: Method: Temporal 07-09-2018 09:34-0400 Body weight 56.93 kg Reina Estrada [facility] Internal Medicine Work Phone: 07-09-2018 09:34-0400 BP Diastolic 72 mm[Hg] Reina Estrada [facility] Internal Medicine Work Phone: Comment on above: Patient Position: Sitting; Cuff Location : Left Arm; Cuff Size: Standard 07-09-2018 09:34-0400 BP Systolic 122 mm[Hg] Reina Estrada [facility] Internal Medicine Work Phone: Comment on above: Patient Position: Sitting; Cuff Location : Left Arm; Cuff Size: Standard 07-09-2018 09:34-0400 BSA (Body Surface Area) 1.6 m2 Reina Estrada [facility] Internal Medicine Work Phone: 07-09-2018 09:34-0400 Height 161.93 cm Reina Estrada [facility] Internal Medicine Work Phone: 07-09-2018 09:34-0400 Pulse (Heart Rate) 67 /min Reina Estrada [facility] Internal Medicine Work Phone: Comment on above: Pattern: Regular 07-09-2018 09:34-0400 Respiratory Rate 16 /min Reina Estrada [facility] Internal Medicine Work Phone: Comment on above: Pattern: Unlabored 07-09-2018 09:34-0400 Weight 56.93 kg Cole Reilly [facility] Internal Medicine Work Phone: 06-29-2018 12:58-0400 BMI (Body Mass Index) 21.71 kg/m2 Reina Estrada [facility] Internal Medicine Work Phone: 06-29-2018 12:58-0400 Body Temperature 97.2 [degF] Reina Estrada [facility] Internal Medicine Work Phone: Comment on above: Method: Temporal 06-29-2018 12:58-0400 Body weight 56.93 kg Reina Estrada [facility] Internal Medicine Work Phone: 06-29-2018 12:58-0400 BP Diastolic 70 mm[Hg] Reina Estrada [facility] Internal Medicine Work Phone: Comment on above: Patient Position: Sitting; Cuff Location : Left Arm; Cuff Size: Standard 06-29-2018 12:58-0400 BP Systolic 104 mm[Hg] Reina Estrada [facility] Internal Medicine Work Phone: Comment on above: Patient Position: Sitting; Cuff Location : Left Arm; Cuff Size: Standard 06-29-2018 12:58-0400 BSA (Body Surface Area) 1.6 m2 Reina Estrada [facility] Internal Medicine Work Phone: 06-29-2018 12:58-0400 Height 161.93 cm Reina Estrada [facility] Internal Medicine Work Phone: 06-29-2018 12:58-0400 Pulse (Heart Rate) 67 /min Reina Estrada [facility] Internal Medicine Work Phone: Comment on above: Pattern: Regular 06-29-2018 12:58-0400 Respiratory Rate 16 /min Reina Estrada [facility] Internal Medicine Work Phone: Comment on above: Pattern: Unlabored 06-29-2018 12:58-0400 Weight 56.93 kg Cole Grover [facility] Internal Medicine Work Phone: 06-01-2018 10:36-0400 BMI (Body Mass Index) 21.71 kg/m2 Reina Estrada [facility] Internal Medicine Work Phone: 06-01-2018 10:36-0400 Body Temperature 98.3 [degF] Reina Estrada [facility] Internal Medicine Work Phone: Comment on above: Method: Temporal 06-01-2018 10:36-0400 Body weight 56.93 kg Reina Estrada [facility] Internal Medicine Work Phone: 06-01-2018 10:36-0400 BP Diastolic 68 mm[Hg] Reina Estrada [facility] Internal Medicine Work Phone: Comment on above: Patient Position: Sitting; Cuff Location : Left Arm; Cuff Size: Standard 06-01-2018 10:36-0400 BP Systolic 115 mm[Hg] Reina Estrada [facility] Internal Medicine Work Phone: Comment on above: Patient Position: Sitting; Cuff Location : Left Arm; Cuff Size: Standard 06-01-2018 10:36-0400 BSA (Body Surface Area) 1.6 m2 Reina Estrada [facility] Internal Medicine Work Phone: 06-01-2018 10:36-0400 Height 161.93 cm Reina Estrada [facility] Internal Medicine Work Phone: 06-01-2018 10:36-0400 Pulse (Heart Rate) 68 /min Reina Estrada [facility] Internal Medicine Work Phone: Comment on above: Pattern: Regular 06-01-2018 10:36-0400 Respiratory Rate 16 /min Reina Estrada [facility] Internal Medicine Work Phone: Comment on above: Pattern: Unlabored 06-01-2018 10:36-0400 Weight 56.93 kg Cole Grover [facility] Internal Medicine Work Phone: 01-31-2018 11:02-0500 BMI (Body Mass Index) 21.54 kg/m2 Reina Estrada [facility] Internal Medicine Work Phone: 01-31-2018 11:02-0500 Body Temperature 97.2 [degF] Reina Estrada [facility] Internal Medicine Work Phone: Comment on above: Method: Temporal 01-31-2018 11:02-0500 Body weight 56.47 kg Reian Estrada [facility] Internal Medicine Work Phone: 01-31-2018 11:02-0500 BP Diastolic 70 mm[Hg] Reina Estrada [facility] Internal Medicine Work Phone: Comment on above: Patient Position: Sitting; Cuff Location : Left Arm; Cuff Size: Standard 01-31-2018 11:02-0500 BP Systolic 118 mm[Hg] Reina Estrada [facility] Internal Medicine Work Phone: Comment on above: Patient Position: Sitting; Cuff Location : Left Arm; Cuff Size: Standard 01-31-2018 11:02-0500 BSA (Body Surface Area) 1.59 m2 Reina Estrada [facility] Internal Medicine Work Phone: 01-31-2018 11:02-0500 Height 161.93 cm Reina Estrada [facility] Internal Medicine Work Phone: 01-31-2018 11:02-0500 Pulse (Heart Rate) 80 /min Reina Estrada CMA [facility] Internal Medicine Work Phone: Comment on above: Pattern: Regular 01-31-2018 11:02-0500 Respiratory Rate 16 /min Reina Estrada [facility] Internal Medicine Work Phone: Comment on above: Pattern: Unlabored 01-31-2018 11:02-0500 Weight 56.47 kg Cole Grover [facility] Internal Medicine Work Phone: 09-27-2017 13:18-0400 BMI (Body Mass Index) 21.47 kg/m2 Reina Estrada [facility] Internal Medicine Work Phone: 09-27-2017 13:18-0400 Body Temperature 97.2 [degF] Reina Estrada [facility] Internal Medicine Work Phone: Comment on above: Method: Temporal 09-27-2017 13:18-0400 Body weight 56.3 kg Reina Estrada [facility] Internal Medicine Work Phone: 09-27-2017 13:18-0400 BP Diastolic 68 mm[Hg] Reina Estrada [facility] Internal Medicine Work Phone: Comment on above: Patient Position: Sitting; Cuff Location : Left Arm; Cuff Size: Standard 09-27-2017 13:18-0400 BP Systolic 122 mm[Hg] Reina Estrada [facility] Internal Medicine Work Phone: Comment on above: Patient Position: Sitting; Cuff Location : Left Arm; Cuff Size: Standard 09-27-2017 13:18-0400 BSA (Body Surface Area) 1.59 m2 Reina Estrada [facility] Internal Medicine Work Phone: 09-27-2017 13:18-0400 Height 161.93 cm Reina Estrada [facility] Internal Medicine Work Phone: 09-27-2017 13:18-0400 Pulse (Heart Rate) 70 /min Reina Estrada [facility] Internal Medicine Work Phone: Comment on above: Pattern: Regular 09-27-2017 13:18-0400 Respiratory Rate 16 /min Reina Estrada CMA [facility] Work Phone: Comment on above: Pattern: Unlabored 09-27-2017 13:18-0400 Weight 56.3 kg Cole Grover [facility] Work Phone: 05-26-2017 13:36-0400 BMI (Body Mass Index) 22.58 kg/m2 Reina Estrada CMA [facility] Work Phone: 05-26-2017 13:36-0400 Body Temperature 96 [degF] Reina Estrada [facility] Work Phone: Comment on above: Method: Temporal 05-26-2017 13:36-0400 Body weight 59.19 kg Reina Etsrada [facility] Work Phone: 05-26-2017 13:36-0400 BP Diastolic 60 mm[Hg] Reina Estrada [facility] Work Phone: Comment on above: Patient Position: Sitting; Cuff Location : Left Arm; Cuff Size: Standard 05-26-2017 13:36-0400 BP Systolic 118 mm[Hg] Reina Estrada [facility] Work Phone: Comment on above: Patient Position: Sitting; Cuff Location : Left Arm; Cuff Size: Standard 05-26-2017 13:36-0400 BSA (Body Surface Area) 1.63 m2 Reina Estrada [facility] Work Phone: 05-26-2017 13:36-0400 Height 161.93 cm Reina Estrada [facility] Work Phone: 05-26-2017 13:36-0400 Pulse (Heart Rate) 79 /min Reina Estrada [facility] Work Phone: Comment on above: Pattern: Regular 05-26-2017 13:36-0400 Respiratory Rate 16 /min Reina Estrada [facility] [facility] Work Phone: Comment on above: Pattern: Unlabored 05-26-2017 13:36-0400 Weight 59.19 kg Cole Grover [facility] Internal Medicine Work Phone: 01-18-2017 11:06-0500 BMI (Body Mass Index) 22.14 kg/m2 Lavinia Britton [facility] Internal Medicine Work Phone: 01-18-2017 11:06-0500 Body Temperature 96.7 [degF] Lavinia Britton [facility] Internal Medicine Work Phone: Comment on above: Method: Temporal 01-18-2017 11:06-0500 Body weight 58.06 kg Lavinia Britton [facility] Internal Medicine Work Phone: 01-18-2017 11:06-0500 BP Diastolic 76 mm[Hg] Lavinia Britton [facility] Internal Medicine Work Phone: Comment on above: Patient Position: Sitting; Cuff Location : Left Arm; Cuff Size: Standard 01-18-2017 11:06-0500 BP Systolic 110 mm[Hg] Lavinia Britton [facility] Internal Medicine Work Phone: Comment on above: Patient Position: Sitting; Cuff Location : Left Arm; Cuff Size: Standard 01-18-2017 11:06-0500 BSA (Body Surface Area) 1.61 m2 Lavinia Britton [facility] Internal Medicine Work Phone: 01-18-2017 11:06-0500 Height 161.93 cm Lavinia Reba [facility] Internal Medicine Work Phone: 01-18-2017 11:06-0500 Pulse (Heart Rate) 56 /min Lavinia Palomaresensiv e Internal Medicine Work Phone: Comment on above: Pattern: Regular 01-18-2017 11:06-0500 Pulse Oximetry 100 % Cole Grover [facility] Internal Medicine Work Phone: Comment on above: Room air 01-18-2017 11:06-0500 Respiratory Rate 16 /min Lavinia Colemanmannie [facility] Internal Medicine Work Phone: Comment on above: Pattern: Unlabored 01-18-2017 11:06-0500 SaO2% (BldA) [Mass fraction] 100 % Lavinia Britton [facility] Internal Medicine; [facility] Work Phone: Comment on above: Room air 01-18-2017 11:06-0500 Weight 58.06 kg Cole Grover [facility] Internal Medicine Work Phone: 09-14-2016 13:37-0400 BMI (Body Mass Index) 23.01 kg/m2 [facility] Work Phone: 09-14-2016 13:37-0400 Body Temperature 97.7 [degF] Lavinia Reba [facility] Internal Medicine Work Phone: Comment on above: Method: Temporal 09-14-2016 13:37-0400 Body weight 60.33 kg Lavinia Reba [facility] Internal Medicine Work Phone: 09-14-2016 13:37-0400 BP Diastolic 68 mm[Hg] Lavinia Britton [facility] Internal Medicine Work Phone: Comment on above: Patient Position: Sitting; Cuff Location : Left Arm; Cuff Size: Standard 09-14-2016 13:37-0400 BP Systolic 120 mm[Hg] Lavinia Reba [facility] Internal Medicine Work Phone: Comment on above: Patient Position: Sitting; Cuff Location : Left Arm; Cuff Size: Standard 09-14-2016 13:37-0400 BSA (Body Surface Area) 1.64 m2 Lavinia Britton [facility] Internal Medicine Work Phone: 09-14-2016 13:37-0400 Height 161.93 cm Lavinia Britton [facility] Internal Medicine Work Phone: 09-14-2016 13:37-0400 Pulse (Heart Rate) 66 /min Lavinia Reba Comprehens[facility] e Internal Medicine Work Phone: Comment on above: Pattern: Regular 09-14-2016 13:37-0400 Pulse Oximetry 97 % Cole Grover [facility] Internal Medicine Work Phone: Comment on above: Room air 09-14-2016 13:37-0400 Respiratory Rate 15 /min Lavinia Britton [facility] Internal Medicine Work Phone: Comment on above: Pattern: Unlabored 09-14-2016 13:37-0400 SaO2% (BldA) [Mass fraction] 97 % Lavinia Quevedopallavi [facility] Internal Medicine; [facility] Work Phone: Comment on above: Room air 09-14-2016 13:37-0400 Weight 60.33 kg Cole Fast [facility] Internal Medicine Work Phone: 04-15-2016 11:02-0500 BMI (Body Mass Index) 23.35 kg/m2 Lavinia Reba [facility] Internal Medicine Work Phone: 04-15-2016 11:02-0500 Body Temperature 97.2 [degF] Lavinia Reba [facility] Internal Medicine Work Phone: Comment on above: Method: Temporal 04-15-2016 11:02-0500 Body weight 61.24 kg Lavinia Reba [facility] Internal Medicine Work Phone: 04-15-2016 11:02-0500 BP Diastolic 80 mm[Hg] Lavinia Reba [facility] Internal Medicine Work Phone: Comment on above: Patient Position: Sitting; Cuff Location : Left Arm; Cuff Size: Standard 04-15-2016 11:02-0500 BP Systolic 128 mm[Hg] Lavinia Quevedopallavi [facility] Internal Medicine Work Phone: Comment on above: Patient Position: Sitting; Cuff Location : Left Arm; Cuff Size: Standard 04-15-2016 11:02-0500 BSA (Body Surface Area) 1.65 m2 Lavinia Reba [facility] Internal Medicine Work Phone: 04-15-2016 11:02-0500 Height 161.93 cm Lavinia Britton [facility] Internal Medicine Work Phone: 04-15-2016 11:02-0500 Pulse (Heart Rate) 62 /min Lavinia Reba Comprehens[facility] Internal Medicine Work Phone: Comment on above: Pattern: Regular 04-15-2016 11:02-0500 Pulse Oximetry 100 % Cole Fast [facility] Internal Medicine Work Phone: Comment on above: Room air 04-15-2016 11:02-0500 Respiratory Rate 16 /min Lavinia Britton [facility] Internal Medicine Work Phone: Comment on above: Pattern: Unlabored 04-15-2016 11:02-0500 SaO2% (BldA) [Mass fraction] 100 % Lavinia Britton [facility] Internal Medicine; [facility] Work Phone: Comment on above: Room air 04-15-2016 11:02-0500 Weight 61.24 kg Cole Grover [facility] Internal Medicine Work Phone: 09-11-2015 08:06-0400 BMI (Body Mass Index) 21.97 kg/m2 FRANCIA Reyes [employer] [facility] Internal Medicine Work Phone: 09-11-2015 08:06-0400 Body Temperature 97.6 [degF] FRANCIA Reyes [employer] [facility] Internal Medicine Work Phone: Comment on above: Method: Temporal 09-11-2015 08:06-0400 Body weight 57.61 kg FRANCIA Reyes [employer] [facility] Internal Medicine Work Phone: 09-11-2015 08:06-0400 BP Diastolic 74 mm[Hg] FRANCIA Reyes [employer] CONSULT[employer] [facility] Internal Medicine Work Phone: Comment on above: Patient Position: Sitting; Cuff Location : Left Arm; Cuff Size: Standard 09-11-2015 08:06-0400 BP Systolic 118 mm[Hg] FRANCIA Reyes [employer] CONSULT[employer] [facility] Internal Medicine Work Phone: Comment on above: Patient Position: Sitting; Cuff Location : Left Arm; Cuff Size: Standard 09-11-2015 08:06-0400 BSA (Body Surface Area) 1.61 m2 FRANCIA Reyes MARIELLE [facility] Internal Medicine Work Phone: 09-11-2015 08:06-0400 Height 161.93 cm FRANCIA Reyes BUSINESS SYSTEM[employer] CONSULT[employer] [facility] Internal Medicine Work Phone: 09-11-2015 08:06-0400 Pulse (Heart Rate) 74 /min FRANCIA Reyes [employer] CON[employer] [facility] Internal Medicine Work Phone: Comment on above: Pattern: Regular 09-11-2015 08:06-0400 Pulse Oximetry 97 % Cole Grover [facility] Internal Medicine Work Phone: Comment on above: Room air 09-11-2015 08:06-0400 Respiratory Rate 18 /min FRANCIA Reyes MARIELLE [facility] Internal Medicine Work Phone: Comment on above: Pattern: Unlabored 09-11-2015 08:06-0400 SaO2% (BldA) [Mass fraction] 97 % FRANCIA Reyes MARIELLE [facility] Internal Medicine; [facility] Work Phone: Comment on above: Room air 09-11-2015 08:06-0400 Weight 57.61 kg Cole Grover [facility] Internal Medicine Work Phone: 02-17-2015 12:12-0500 BMI (Body Mass Index) 22.49 kg/m2 Lavinia Britton [facility] Internal Medicine Work Phone: 02-17-2015 12:12-0500 Body Temperature 97.7 [degF] Lavinia Britton [facility] Internal Medicine Work Phone: Comment on above: Method: Temporal 02-17-2015 12:12-0500 Body weight 58.97 kg Lavinia Britton [facility] Internal Medicine Work Phone: 02-17-2015 12:12-0500 BP Diastolic 84 mm[Hg] Lavinia Britton [facility] Internal Medicine Work Phone: Comment on above: Patient Position: Sitting; Cuff Location : Left Arm; Cuff Size: Standard 02-17-2015 12:12-0500 BP Systolic 132 mm[Hg] Lavinia Britton [facility] Internal Medicine Work Phone: Comment on above: Patient Position: Sitting; Cuff Location : Left Arm; Cuff Size: Standard 02-17-2015 12:12-0500 BSA (Body Surface Area) 1.62 m2 Lavinia Britton [facility] Internal Medicine Work Phone: 02-17-2015 12:12-0500 Height 161.93 cm Lavinia Britton [facility] Internal Medicine Work Phone: 02-17-2015 12:12-0500 Pulse (Heart Rate) 76 /min Lavinia Reba [facility]prehens[facility] Internal Medicine Work Phone: Comment on above: Pattern: Regular 02-17-2015 12:12-0500 Pulse Oximetry 98 % Cole [facility] Internal Medicine Work Phone: Comment on above: Room air 02-17-2015 12:12-0500 Respiratory Rate 16 /min Lavinia Reba [facility] Internal Medicine Work Phone: Comment on above: Pattern: Unlabored 02-17-2015 12:12-0500 SaO2% (BldA) [Mass fraction] 98 % Lavinia Britton [facility] Internal Medicine; [facility] Work Phone: Comment on above: Room air 02-17-2015 12:12-0500 Weight 58.97 kg Cole Grover [facility] Internal Medicine Work Phone: 08-27-2014 08:31-0400 BMI (Body Mass Index) 21.97 kg/m2 [facility]avinia [facility] Work Phone: 08-27-2014 08:31-0400 Body Temperature 96.5 [degF] Lavinia Britton [facility] Internal Medicine Work Phone: Comment on above: Method: Oral 08-27-2014 08:31-0400 Body weight 57.61 kg Lavinia Britton [facility] Internal Medicine Work Phone: 08-27-2014 08:31-0400 BP Diastolic 80 mm[Hg] Lavinia Britton [facility] Internal Medicine Work Phone: Comment on above: Patient Position: Sitting; Cuff Location : Left Arm; Cuff Size: Standard 08-27-2014 08:31-0400 BP Systolic 122 mm[Hg] Lavinia Britton [facility] Internal Medicine Work Phone: Comment on above: Patient Position: Sitting; Cuff Location : Left Arm; Cuff Size: Standard 08-27-2014 08:31-0400 BSA (Body Surface Area) 1.61 m2 Lavinia Britton [facility] Internal Medicine Work Phone: 08-27-2014 08:31-0400 Height 161.93 cm Lavinia Britton [facility] Internal Medicine Work Phone: 08-27-2014 08:31-0400 Pulse (Heart Rate) 72 /min Lavinia Colemanmannie Comprehens[facility] e Internal Medicine Work Phone: Comment on above: Pattern: Regular 08-27-2014 08:31-0400 Respiratory Rate 16 /min Lavinia Colemanmannie [facility] Internal Medicine Work Phone: Comment on above: Pattern: Unlabored 08-27-2014 08:31-0400 Weight 57.61 kg Cole Grover [facility] Internal Medicine Work Phone: 04-23-2014 08:12-0500 BMI (Body Mass Index) 22.49 kg/m2 Lavinia Colemanmannie Palomaresen siv Internal Medicine Work Phone: 04-23-2014 08:12-0500 Body Temperature 95.3 [degF] Lavinia Colemanmannie [facility] Internal Medicine Work Phone: 04-23-2014 08:12-0500 Body weight 58.97 kg Lavinia Britton [facility] Internal Medicine Work Phone: 04-23-2014 08:12-0500 BP Diastolic 70 mm[Hg] Lavinia Britton [facility] Internal Medicine Work Phone: Comment on above: Patient Position: Sitting; Cuff Location : Left Arm; Cuff Size: Standard 04-23-2014 08:12-0500 BP Systolic 116 mm[Hg] Lavinia Colemanmannie [facility] Internal Medicine Work Phone: Comment on above: Patient Position: Sitting; Cuff Location : Left Arm; Cuff Size: Standard 04-23-2014 08:12-0500 BSA (Body Surface Area) 1.62 m2 Lavinia Colemanmannie [facility] Internal Medicine Work Phone: 04-23-2014 08:12-0500 Height 161.93 cm Lavinia Quevedopallavi [facility] Internal Medicine Work Phone: 04-23-2014 08:12-0500 Pulse (Heart Rate) 80 /min Lavinia Flpallavi Comprehensiv e Internal Medicine Work Phone: Comment on above: Pattern: Regular 04-23-2014 08:12-0500 Respiratory Rate 16 /min Lavinia Flpallavi [facility] Internal Medicine Work Phone: Comment on above: Pattern: Unlabored 04-23-2014 08:12-0500 Weight 58.97 kg Cole Grover [facility] Internal Medicine Work Phone: 08-02-2013 13:41-0400 BMI (Body Mass Index) 21.45 kg/m2 Reina Estrada [facility] Internal Medicine Work Phone: 08-02-2013 13:41-0400 Body Temperature 99 [degF] Reina Estrada [facility] Internal Medicine Work Phone: Comment on above: Method: Oral 08-02-2013 13:41-0400 Body weight 56.25 kg Reina Estrada [facility] Internal Medicine Work Phone: 08-02-2013 13:41-0400 BP Diastolic 68 mm[Hg] Reina Estrada [facility] Internal Medicine Work Phone: Comment on above: Patient Position: Sitting; Cuff Location : Left Arm; Cuff Size: Standard 08-02-2013 13:41-0400 BP Systolic 120 mm[Hg] Reina Estrada [facility] Internal Medicine Work Phone: Comment on above: Patient Position: Sitting; Cuff Location : Left Arm; Cuff Size: Standard 08-02-2013 13:41-0400 BSA (Body Surface Area) 1.59 m2 Reina Estrada [facility] Internal Medicine Work Phone: 08-02-2013 13:41-0400 Height 161.93 cm Reina Estrada [facility] Internal Medicine Work Phone: 08-02-2013 13:41-0400 Pulse (Heart Rate) 85 /min Reina Estrada [facility] Internal Medicine Work Phone: Comment on above: Pattern: Regular 08-02-2013 13:41-0400 Pulse Oximetry 98 % [facility] Internal Medicine Work Phone: Comment on above: Room air 08-02-2013 13:41-0400 Respiratory Rate 16 /min Reina Estrada [facility] Internal Medicine Work Phone: Comment on above: Pattern: Unlabored 08-02-2013 13:41-0400 SaO2% (BldA) [Mass fraction] 98 % Reina Estrada [facility] Internal Medicine; [facility] Work Phone: Comment on above: Room air 08-02-2013 13:41-0400 Weight 56.25 kg Cole Grover [facility] Internal Medicine Work Phone: 03-22-2013 13:47-0500 BMI (Body Mass Index) 22.14 kg/m2 Lavinia Ojeda count includes the [facility] Internal Medicine Work Phone: 03-22-2013 13:47-0500 Body Temperature 97.8 [degF] Lavinia Britton [facility] Internal Medicine Work Phone: 03-22-2013 13:47-0500 Body weight 58.06 kg Lavinia Britton [facility] Internal Medicine Work Phone: 03-22-2013 13:47-0500 BP Diastolic 64 mm[Hg] Lavinia Britton [facility] Internal Medicine Work Phone: Comment on above: Patient Position: Sitting; Cuff Location : Left Arm; Cuff Size: Standard 03-22-2013 13:47-0500 BP Systolic 100 mm[Hg] Lavinia Britton [facility] Internal Medicine Work Phone: Comment on above: Patient Position: Sitting; Cuff Location : Left Arm; Cuff Size: Standard 03-22-2013 13:47-0500 BSA (Body Surface Area) 1.61 m2 Lavinia Britton [facility] Internal Medicine Work Phone: 03-22-2013 13:47-0500 Height 161.93 cm Lavinia Britton [facility] Internal Medicine Work Phone: 03-22-2013 13:47-0500 Pulse (Heart Rate) 62 /min Lavinia Palomaresens e Internal Medicine Work Phone: Comment on above: Pattern: Regular 03-22-2013 13:47-0500 Respiratory Rate 16 /min Lavinia Britton [facility] Internal Medicine Work Phone: Comment on above: Pattern: Unlabored 03-22-2013 13:47-0500 Weight 58.06 kg Cole Grover [facility] Internal Medicine Work Phone: 02-13-2013 09:07-0500 BMI (Body Mass Index) 21.97 kg/m2 Lavinia Britton Comprehen sive Internal Medicine Work Phone: 02-13-2013 09:07-0500 Body Temperature 96.5 [degF] Lavinia Britton [facility] Internal Medicine Work Phone: 02-13-2013 09:07-0500 Body weight 57.61 kg Lavinia Britton [facility] Internal Medicine Work Phone: 02-13-2013 09:07-0500 BP Diastolic 70 mm[Hg] Lavinia Britton [facility] Internal Medicine Work Phone: Comment on above: Patient Position: Sitting; Cuff Location : Left Arm; Cuff Size: Standard 02-13-2013 09:07-0500 BP Systolic 116 mm[Hg] Lavinia Britton [facility] Internal Medicine Work Phone: Comment on above: Patient Position: Sitting; Cuff Location : Left Arm; Cuff Size: Standard 02-13-2013 09:07-0500 BSA (Body Surface Area) 1.61 m2 Lavinia Britton [facility] Internal Medicine Work Phone: 02-13-2013 09:07-0500 Height 161.93 cm Lavinia Britton [facility] Internal Medicine Work Phone: 02-13-2013 09:07-0500 Pulse (Heart Rate) 62 /min Lavinia Britton Marielleensiv e Internal Medicine Work Phone: Comment on above: Pattern: Regular 02-13-2013 09:07-0500 Respiratory Rate 16 /min Lavinia Britton [facility] Internal Medicine Work Phone: Comment on above: Pattern: Unlabored 02-13-2013 09:07-0500 Weight 57.61 kg Cole Grover [facility] Internal Medicine Work Phone: 08-20-2012 10:34-0400 BMI (Body Mass Index) 21.11 kg/m2 Lavinia Britton Rusty count includes the [facility] Internal Medicine Work Phone: 08-20-2012 10:34-0400 Body Temperature 96.9 [degF] Lavinia Quevedopallavi [facility] Internal Medicine Work Phone: 08-20-2012 10:34-0400 Body weight 55.34 kg Lavinia Britton [facility] Internal Medicine Work Phone: 08-20-2012 10:34-0400 BP Diastolic 74 mm[Hg] Lavinia Quevedoraulmannie [facility] Internal Medicine Work Phone: Comment on above: Patient Position: Sitting; Cuff Location : Left Arm; Cuff Size: Standard 08-20-2012 10:34-0400 BP Systolic 122 mm[Hg] Lavinia Colemanmannie [facility] Internal Medicine Work Phone: Comment on above: Patient Position: Sitting; Cuff Location : Left Arm; Cuff Size: Standard 08-20-2012 10:34-0400 BSA (Body Surface Area) 1.58 m2 Lavinia Colemanmannie [facility] Internal Medicine Work Phone: 08-20-2012 10:34-0400 Height 161.93 cm Lavinia Quevedopallavi [facility] Internal Medicine Work Phone: 08-20-2012 10:34-0400 Pulse (Heart Rate) 60 /min Lavinia Quevedopallavi Palomaresensiv [facility] Internal Medicine Work Phone: Comment on above: Pattern: Regular 08-20-2012 10:34-0400 Respiratory Rate 16 /min Lavinia Quevedopallavi [facility] Internal Medicine Work Phone: Comment on above: Pattern: Unlabored 08-20-2012 10:34-0400 Weight 55.34 kg Cole Grover [facility] Internal Medicine Work Phone: 07-11-2012 10:36-0400 BMI (Body Mass Index) 22.02 kg/m2 Reina Estrada [facility] Internal Medicine Work Phone: 07-11-2012 10:36-0400 Body Temperature 98 [degF] Reina Estrada [facility] Internal Medicine Work Phone: Comment on above: Method: Oral 07-11-2012 10:36-0400 Body weight 56.39 kg Reina Estrada [facility] Internal Medicine Work Phone: 07-11-2012 10:36-0400 BP Diastolic 68 mm[Hg] Reina Estrada [facility] Internal Medicine Work Phone: Comment on above: Patient Position: Sitting; Cuff Location : Left Arm; Cuff Size: Standard 07-11-2012 10:36-0400 BP Systolic 118 mm[Hg] Reina Estrada [facility] Internal Medicine Work Phone: Comment on above: Patient Position: Sitting; Cuff Location : Left Arm; Cuff Size: Standard 07-11-2012 10:36-0400 BSA (Body Surface Area) 1.58 m2 Reina Estrada [facility] Internal Medicine Work Phone: 07-11-2012 10:36-0400 Height 160.02 cm Reina Estrada [facility] Internal Medicine Work Phone: 07-11-2012 10:36-0400 Pulse (Heart Rate) 68 /min Reina Estrada [facility] Internal Medicine Work Phone: Comment on above: Pattern: Regular 07-11-2012 10:36-0400 Respiratory Rate 16 /min Reina Estrada [facility] Internal Medicine Work Phone: Comment on above: Pattern: Unlabored 07-11-2012 10:36-0400 Weight 56.39 kg Cole Reilly [facility] Internal Medicine Work Phone: 04-11-2012 08:58-0500 BMI (Body Mass Index) 22.14 kg/m2 Lavinia Britton [facility] Internal Medicine Work Phone: 04-11-2012 08:58-0500 Body Temperature 98.4 [degF] Lavinia Britton [facility] Internal Medicine Work Phone: 04-11-2012 08:58-0500 Body weight 56.7 kg Lavinia Britton [facility] Internal Medicine Work Phone: 04-11-2012 08:58-0500 BP Diastolic 64 mm[Hg] Lavinia Britton [facility] Internal Medicine Work Phone: Comment on above: Patient Position: Sitting; Cuff Location : Left Arm; Cuff Size: Large 04-11-2012 08:58-0500 BP Systolic 122 mm[Hg] Lavinia Britton [facility] Internal Medicine Work Phone: Comment on above: Patient Position: Sitting; Cuff Location : Left Arm; Cuff Size: Large 04-11-2012 08:58-0500 BSA (Body Surface Area) 1.58 m2 Lavinia Britton [facility] Internal Medicine Work Phone: 04-11-2012 08:58-0500 Height 160.02 cm Lavinia Britton [facility] Internal Medicine Work Phone: 04-11-2012 08:58-0500 Pulse (Heart Rate) 80 /min Lavinia Britton Comprehensiv e Internal Medicine Work Phone: Comment on above: Pattern: Regular 04-11-2012 08:58-0500 Respiratory Rate 16 /min Lavinia Britton [facility] Internal Medicine Work Phone: Comment on above: Pattern: Unlabored 04-11-2012 08:58-0500 Weight 56.7 kg Cole Fast [facility] Internal Medicine Work Phone: 10-07-2011 09:42-0400 BMI (Body Mass Index) 22.85 kg/m2 Cole Fast Comprehens [facility]y Internal Medicine Work Phone: 10-07-2011 09:42-0400 Body Temperature 98.6 [degF] Cole Fast [facility] Internal Medicine Work Phone: Comment on above: Method: Oral 10-07-2011 09:42-0400 Body weight 58.51 kg Cole Fast [facility] Internal Medicine Work Phone: 10-07-2011 09:42-0400 BP Diastolic 78 mm[Hg] Cole Fast [facility] Internal Medicine Work Phone: Comment on above: Patient Position: Sitting; Cuff Location : Left Arm; Cuff Size: Standard 10-07-2011 09:42-0400 BP Systolic 118 mm[Hg] [facility] Internal Medicine Work Phone: Comment on above: Patient Position: Sitting; Cuff Location : Left Arm; Cuff Size: Standard 10-07-2011 09:42-0400 BSA (Body Surface Area) 1.61 m2 [facility] Internal Medicine Work Phone: 10-07-2011 09:42-0400 Height 160.02 cm [facility] Internal Medicine Work Phone: 10-07-2011 09:42-0400 Pulse (Heart Rate) 68 /min [facility] Internal Medicine Work Phone: Comment on above: Pattern: Regular 10-07-2011 09:42-0400 Respiratory Rate 16 /min [facility] Internal Medicine Work Phone: Comment on above: Pattern: Unlabored 10-07-2011 09:42-0400 Weight 58.51 kg [facility] Internal Medicine Work Phone: 09-14-2011 11:03-0400 BMI (Body Mass Index) 22.85 kg/m2 Lavinia Britton [facility] Internal Medicine Work Phone: 09-14-2011 11:03-0400 Body Temperature 96.8 [degF] Lavinia Britton [facility] Internal Medicine Work Phone: 09-14-2011 11:03-0400 Body weight 58.51 kg Lavinia Britton [facility] Internal Medicine Work Phone: 09-14-2011 11:03-0400 BP Diastolic 74 mm[Hg] Lavinia Britton [facility] Internal Medicine Work Phone: Comment on above: Patient Position: Sitting; Cuff Location : Left Arm; Cuff Size: Standard 09-14-2011 11:03-0400 BP Systolic 136 mm[Hg] Lavinia Britton [facility] Internal Medicine Work Phone: Comment on above: Patient Position: Sitting; Cuff Location : Left Arm; Cuff Size: Standard 09-14-2011 11:03-0400 BSA (Body Surface Area) 1.61 m2 Lavinia Britton [facility] Internal Medicine Work Phone: 09-14-2011 11:03-0400 Height 160.02 cm Lavinia Britton [facility] Internal Medicine Work Phone: 09-14-2011 11:03-0400 Pulse (Heart Rate) 68 /min [facility] Work Phone: Comment on above: Pattern: Regular 09-14-2011 11:03-0400 Respiratory Rate 16 /min Lavinia Britton [facility] Internal Medicine Work Phone: Comment on above: Pattern: Unlabored 09-14-2011 11:03-0400 Weight 58.51 kg Cole Grover [facility] Internal Medicine Work Phone: 05-04-2011 13:28-0500 BMI (Body Mass Index) 23.91 kg/m2 Lavinia Britton [facility] Internal Medicine Work Phone: 05-04-2011 13:28-0500 Body Temperature 97.4 [degF] Lavinia Britton [facility] Internal Medicine Work Phone: 05-04-2011 13:28-0500 Body weight 61.24 kg Lavinia Britton [facility] Internal Medicine Work Phone: 05-04-2011 13:28-0500 BP Diastolic 72 mm[Hg] Lavinia Britton [facility] Internal Medicine Work Phone: Comment on above: Patient Position: Sitting; Cuff Location : Left Arm; Cuff Size: Standard 05-04-2011 13:28-0500 BP Systolic 136 mm[Hg] Lavinia Britton [facility] Internal Medicine Work Phone: Comment on above: Patient Position: Sitting; Cuff Location : Left Arm; Cuff Size: Standard 05-04-2011 13:28-0500 BSA (Body Surface Area) 1.64 m2 Lavinia Britton [facility] Internal Medicine Work Phone: 05-04-2011 13:28-0500 Height 160.02 cm Lavinia Britton [facility] Internal Medicine Work Phone: 05-04-2011 13:28-0500 Pulse (Heart Rate) 80 /min Lavinia Britton [facility] Internal Medicine Work Phone: Comment on above: Pattern: Regular 05-04-2011 13:28-0500 Respiratory Rate 16 /min Lavinia Britton [facility] Internal Medicine Work Phone: Comment on above: Pattern: Unlabored 05-04-2011 13:28-0500 Weight 61.24 kg Cole Grover [facility] Internal Medicine Work Phone: 10-26-2010 10:34-0400 BMI (Body Mass Index) 22.14 kg/m2 Lavinia Britton Marielleen count includes the [facility] Internal Medicine Work Phone: 10-26-2010 10:34-0400 Body Temperature 97.1 [degF] Lavinia Britton [facility] Internal Medicine Work Phone: 10-26-2010 10:34-0400 Body weight 56.7 kg Lavinia Britton [facility] Internal Medicine Work Phone: 10-26-2010 10:34-0400 BP Diastolic 68 mm[Hg] Lavinia Britton [facility] Internal Medicine Work Phone: Comment on above: Patient Position: Sitting; Cuff Location : Left Arm; Cuff Size: Standard 10-26-2010 10:34-0400 BP Systolic 104 mm[Hg] Lavinia Britton [facility] Internal Medicine Work Phone: Comment on above: Patient Position: Sitting; Cuff Location : Left Arm; Cuff Size: Standard 10-26-2010 10:34-0400 BSA (Body Surface Area) 1.58 m2 Lavinia Britton [facility] Internal Medicine Work Phone: 10-26-2010 10:34-0400 Height 160.02 cm Lavinia Britton [facility] Internal Medicine Work Phone: 10-26-2010 10:34-0400 Pulse (Heart Rate) 68 /min Lavinia Britton [facility] Internal Medicine Work Phone: Comment on above: Pattern: Regular 10-26-2010 10:34-0400 Respiratory Rate 16 /min Lavinia Britton [facility] Work Phone: Comment on above: Pattern: Unlabored 10-26-2010 10:34-0400 Weight 56.7 kg Cole Fast [facility] Work Phone: 10-19-2010 10:02-0400 BMI (Body Mass Index) 22.14 kg/m2 Katarina Easley RN [facility] Internal Medicine Work Phone: 10-19-2010 10:02040 Body Temperature 97.1 [degF] Katarina Easley RN [facility] Work Phone: Comment on above: Method: Oral 10-19-2010 10:02-0400 Body weight 56.7 kg Katarina Easley RN [facility] Work Phone: 10-19-2010 10:02-0400 BP Diastolic 74 mm[Hg] Katarian Easley RN [facility] Work Phone: Comment on above: Patient Position: Sitting; Cuff Location : Left Arm; Cuff Size: Standard 10-19-2010 10:02-0400 BP Systolic 116 mm[Hg] Katarina Easley RN [facility] Work Phone: Comment on above: Patient Position: Sitting; Cuff Location : Left Arm; Cuff Size: Standard 10-19-2010 10:02-0400 BSA (Body Surface Area) 1.58 m2 Katraina Easley RN [facility] Work Phone: 10-19-2010 10:02-0400 Height 160.02 cm Katarina Easley RN [facility] Work Phone: 10-19-2010 10:02-0400 Weight 56.7 kg Cole Fast [facility] Work Phone: 09-28-2010 10:23-0400 BMI (Body Mass Index) 22.14 kg/m2 Cole Fast [facility] Internal Medicine Work Phone: 09-28-2010 10:23-0400 Body Temperature 96.9 [degF] Cole Fast [facility] Work Phone: Comment on above: Method: Oral 09-28-2010 10:23-0400 Body weight 56.7 kg [facility] Internal Medicine Work Phone: 09-28-2010 10:23-0400 BP Diastolic 74 mm[Hg] [facility] Internal Medicine Work Phone: Comment on above: Patient Position: Sitting; Cuff Location : Left Arm; Cuff Size: Standard 09-28-2010 10:23-0400 BP Systolic 118 mm[Hg] [facility] Medicine Work Phone: Comment on above: Patient Position: Sitting; Cuff Location : Left Arm; Cuff Size: Standard 09-28-2010 10:23-0400 BSA (Body Surface Area) 1.58 m2 [facility] Internal Medicine Work Phone: 09-28-2010 10:23-0400 Height 160.02 cm [facility] Internal Medicine Work Phone: 09-28-2010 10:23-0400 Pulse (Heart Rate) 70 /min [facility] Internal Medicine Work Phone: Comment on above: Pattern: Regular 09-28-2010 10:23-0400 Respiratory Rate 16 /min [facility] Internal Medicine Work Phone: Comment on above: Pattern: Unlabored 09-28-2010 10:23-0400 Weight 56.7 kg [facility] Internal Medicine Work Phone: 04-12-2010 10:27-0500 Body Temperature 96.2 [degF] Lavinia Flinmannie [facility] Internal Medicine Work Phone: 04-12-2010 10:27-0500 Body weight 58.06 kg Lavinia Reba [facility] Internal Medicine Work Phone: 04-12-2010 10:27-0500 BP Diastolic 72 mm[Hg] Lavinia Reba [facility] Internal Medicine Work Phone: Comment on above: Patient Position: Sitting; Cuff Location : Left Arm; Cuff Size: Large 04-12-2010 10:27-0500 BP Systolic 112 mm[Hg] Lavinia Britton [facility] Internal Medicine Work Phone: Comment on above: Patient Position: Sitting; Cuff Location : Left Arm; Cuff Size: Large 04-12-2010 10:27-0500 Pulse (Heart Rate) 72 /min Lavinia Britton [facility] Internal Medicine Work Phone: Comment on above: Pattern: Regular 04-12-2010 10:27-0500 Respiratory Rate 16 /min Lavinia Britton [facility] Work Phone: Comment on above: Pattern: Unlabored 04-12-2010 10:27-0500 Weight 58.06 kg Cole Fast [facility] Work Phone: 01-13-2010 10:45-0500 Body Temperature 96.6 [degF] Lavinia Britton [facility] Internal Medicine Work Phone: 01-13-2010 10:45-0500 Body weight 56.25 kg Lavinia Britton [facility] Work Phone: 01-13-2010 10:45-0500 BP Diastolic 84 mm[Hg] Lavinia Britton [facility] Work Phone: Comment on above: Patient Position: Sitting; Cuff Location : Left Arm; Cuff Size: Standard 01-13-2010 10:45-0500 BP Systolic 142 mm[Hg] Lavinia Britton [facility] Internal Medicine Work Phone: Comment on above: Patient Position: Sitting; Cuff Location : Left Arm; Cuff Size: Standard 01-13-2010 10:45-0500 Pulse (Heart Rate) 68 /min Lavinia Britton [facility] Internal Medicine Work Phone: Comment on above: Pattern: Regular 01-13-2010 10:45-0500 Respiratory Rate 18 /min Lavinia Britton [facility] Internal Medicine Work Phone: Comment on above: Pattern: Unlabored 01-13-2010 10:45-0500 Weight 56.25 kg Cole Fast [facility] Work Phone: 09-30-2009 10:16-0400 BMI (Body Mass Index) 21.28 kg/m2 [facility] Internal Medicine Work Phone: 09-30-2009 10:16-0400 Body Temperature 96.6 [degF] Lavinia Reba [facility] Internal Medicine Work Phone: 09-30-2009 10:16-0400 Body weight 55.79 kg Lavinia Reba [facility] Internal Medicine Work Phone: 09-30-2009 10:16-0400 BP Diastolic 64 mm[Hg] Lavinia Reba [facility] Internal Medicine Work Phone: Comment on above: Patient Position: Sitting; Cuff Location : Left Arm; Cuff Size: Large 09-30-2009 10:16-0400 BP Systolic 106 mm[Hg] Lavinia Reba [facility] Internal Medicine Work Phone: Comment on above: Patient Position: Sitting; Cuff Location : Left Arm; Cuff Size: Large 09-30-2009 10:16-0400 BSA (Body Surface Area) 1.59 m2 Lavinia Reba [facility] Internal Medicine Work Phone: 09-30-2009 10:16-0400 Height 161.93 cm Lavinia Reba [facility] Internal Medicine Work Phone: 09-30-2009 10:16-0400 Pulse (Heart Rate) 76 /min [facility] Work Phone: Comment on above: Pattern: Regular 09-30-2009 10:16-0400 Respiratory Rate 18 /min Lavinia Britton [facility] Internal Medicine Work Phone: Comment on above: Pattern: Unlabored 09-30-2009 10:16-0400 Weight 55.79 kg Cole Fast [facility] Internal Medicine Work Phone: 04-15-2009 09:00-0500 Body Temperature 95.1 [degF] Conchita Pollard RN [facility] Work Phone: Comment on above: Method: Oral 04-15-2009 09:00-0500 Body weight 58.06 kg Conchita Pollard RN [facility] Work Phone: 04-15-2009 09:00-0500 BP Diastolic 60 mm[Hg] Conchita Pollard RN [facility] Work Phone: Comment on above: Patient Position: Sitting; Cuff Location : Left Arm; Cuff Size: Large 04-15-2009 09:00-0500 BP Systolic 120 mm[Hg] Conchita Pollard RN [facility] Work Phone: Comment on above: Patient Position: Sitting; Cuff Location : Left Arm; Cuff Size: Large 04-15-2009 09:00-0500 Pulse (Heart Rate) 80 /min Conchita Pollard RN [facility] Work Phone: Comment on above: Pattern: Regular 04-15-2009 09:00-0500 Respiratory Rate 16 /min Conchita Pollard RN [facility] Work Phone: Comment on above: Pattern: Unlabored 04-15-2009 09:00-0500 Weight 58.06 kg [facility] Internal Medicine Work Phone: 07-24-2008 09:41-0400 Body Temperature 97.3 [degF] [facility] Internal Medicine Work Phone: Comment on above: Method: Oral 07-24-2008 09:41-0400 Body weight 0 kg [facility] Internal Medicine Work Phone: 07-24-2008 09:41-0400 BP Diastolic 64 mm[Hg] [facility] Internal Medicine Work Phone: Comment on above: Patient Position: Supine; Cuff Location: Right Arm; Cuff Size: Standard 07-24-2008 09:41-0400 BP Systolic 122 mm[Hg] [facility] Internal Medicine Work Phone: Comment on above: Patient Position: Supine; Cuff Location: Right Arm; Cuff Size: Standard 07-24-2008 09:41-0400 Head Circumference 0 cm [facility] Internal Medicine Work Phone: 07-24-2008 09:41-0400 Head Occipital-frontal circumference 0 cm [facility] Internal Medicine; [facility] Internal Medicine Work Phone: 07-24-2008 09:41-0400 Height 0 cm [facility] Internal Medicine Work Phone: 07-24-2008 09:41-0400 Pulse (Heart Rate) 64 /min [facility] Internal Medicine Work Phone: Comment on above: Pattern: Regular 07-24-2008 09:41-0400 Respiratory Rate 18 /min [facility] Internal Medicine Work Phone: Comment on above: Pattern: Unlabored 07-24-2008 09:41-0400 Weight 0 kg [facility] Internal Medicine Work Phone: 07-16-2008 10:17-0400 BMI (Body Mass Index) 20.25 kg/m2 Lavinia Britton [facility] Internal Medicine Work Phone: 07-16-2008 10:17-0400 Body Temperature 97.2 [degF] Lavinia Britton [facility] Internal Medicine Work Phone: Comment on above: Method: Undefined 07-16-2008 10:17-0400 Body weight 53.52 kg Lavinia Britton [facility] Internal Medicine Work Phone: 07-16-2008 10:17-0400 BP Diastolic 70 mm[Hg] Lavinia Britton [facility] Internal Medicine Work Phone: Comment on above: Patient Position: Sitting; Cuff Location : Right Arm; Cuff Size: Standard 07-16-2008 10:17-0400 BP Systolic 130 mm[Hg] Lavinia Britton [facility] Internal Medicine Work Phone: Comment on above: Patient Position: Sitting; Cuff Location : Right Arm; Cuff Size: Standard 07-16-2008 10:17-0400 BSA (Body Surface Area) 1.56 m2 Lavinia Britton [facility] Internal Medicine Work Phone: 07-16-2008 10:17-0400 [facility] Work [facility]: 07-16-2008 10:17-0400 Head Occipital-frontal circumference 0 cm Lavinia Britton [facility] Medicine; [facility] Internal Medicine Work Phone: 07-16-2008 10:17-0400 Height 162.56 cm Lavinia Britton [facility] Internal Medicine Work Phone: 07-16-2008 10:17-0400 Pulse (Heart Rate) 68 /min Lavinia Britton [facility] Internal Medicine Work Phone: Comment on above: Pattern: Regular 07-16-2008 10:17-0400 Respiratory Rate 18 /min Lavinia Britton [facility] Internal Medicine Work Phone: Comment on above: Pattern: Undefined 07-16-2008 10:17-0400 Weight 53.52 kg Cole Grover [facility] Internal Medicine Work Phone: 04-30-2008 09:58-0500 Body Temperature 98.2 [degF] Lavinia Britton [facility] Internal Medicine Work Phone: Comment on above: Method: Undefined 04-30-2008 09:58-0500 Body weight 56.25 kg Lavinia Britton [facility] Internal Medicine Work Phone: 04-30-2008 09:58-0500 BP Diastolic 74 mm[Hg] Lavinia Britton [facility] Internal Medicine Work Phone: Comment on above: Patient Position: Sitting; Cuff Location : Left Arm; Cuff Size: Large 04-30-2008 09:58-0500 BP Systolic 130 mm[Hg] Lavinia Britton [facility] Internal Medicine Work Phone: Comment on above: Patient Position: Sitting; Cuff Location : Left Arm; Cuff Size: Large 04-30-2008 09:58-0500 Head Circumference 0 cm Cole Grover [facility] Internal Medicine Work Phone: 04-30-2008 09:58-0500 Head Occipital-frontal circumference 0 cm Lavinia Britton [facility] Internal Medicine; [facility] Work Phone: 04-30-2008 09:58-0500 Height 0 cm Lavinia Britton [facility] Internal Medicine Work Phone: 04-30-2008 09:58-0500 Pulse (Heart Rate) 68 /min Lavinia Britton [facility] Internal Medicine Work Phone: Comment on above: Pattern: Regular 04-30-2008 09:58-0500 Respiratory Rate 16 /min Lavinia Quevedopallavi [facility] Internal Medicine Work Phone: Comment on above: Pattern: Undefined 04-30-2008 09:58-0500 Weight 56.25 kg Cole Grover [facility] Internal Medicine Work Phone: 01-22-2008 11:04-0500 Body Temperature 97.4 [degF] Lavinia Reba [facility] Internal Medicine Work Phone: Comment on above: Method: Undefined 01-22-2008 11:04-0500 Body weight 53.52 kg Lavinia Quevedopallavi [facility] Internal Medicine Work Phone: 01-22-2008 11:04-0500 BP Diastolic 76 mm[Hg] Lavinia Reba [facility] Internal Medicine Work Phone: Comment on above: Patient Position: Sitting; Cuff Location : Right Arm; Cuff Size: Large 01-22-2008 11:04-0500 BP Systolic 126 mm[Hg] Lavinia Britton [facility] Internal Medicine Work Phone: Comment on above: Patient Position: Sitting; Cuff Location : Right Arm; Cuff Size: Large 01-22-2008 11:04-0500 Head Circumference 0 cm Cole [facility] Internal Medicine Work Phone: 01-22-2008 11:04-0500 Head Occipital-frontal circumference 0 cm Lavinia Britton [facility] Medicine; [facility] Work Phone: 01-22-2008 11:04-0500 Height 0 cm Lavinia Britton [facility] Internal Medicine Work Phone: 01-22-2008 11:04-0500 Pulse (Heart Rate) 56 /min Lavinia Reba [facility] Internal Medicine Work Phone: Comment on above: Pattern: Regular 01-22-2008 11:04-0500 Respiratory Rate 16 /min Lavinia Reba [facility] Internal Medicine Work Phone: Comment on above: Pattern: Undefined 01-22-2008 11:04-0500 Weight 53.52 kg Cole [facility] Internal Medicine Work Phone: 07-17-2007 10:05-0400 Body Temperature 97.9 [degF] Lavinia Britton [facility] Internal Medicine Work Phone: Comment on above: Method: Undefined 07-17-2007 10:05-0400 Body weight 56.7 kg Lavinia Britton [facility] Internal Medicine Work Phone: 07-17-2007 10:05-0400 BP Diastolic 62 mm[Hg] Lavinia Britton [facility] Internal Medicine Work Phone: Comment on above: Patient Position: Sitting; Cuff Location : Right Arm; Cuff Size: Standard 07-17-2007 10:05-0400 BP Systolic 102 mm[Hg] Lavinia Britton [facility] Internal Medicine Work Phone: Comment on above: Patient Position: Sitting; Cuff Location : Right Arm; Cuff Size: Standard 07-17-2007 10:05-0400 Head Circumference 0 cm Cole [facility] Internal Medicine Work Phone: 07-17-2007 10:05-0400 Head Occipital-frontal circumference 0 cm Lavinia Britton [facility] Internal Medicine; [facility] Work Phone: 07-17-2007 10:05-0400 Height 0 cm Lavinia Britton [facility] Internal Medicine Work Phone: 07-17-2007 10:05-0400 Pulse (Heart Rate) 80 /min [facility] Work Phone: Comment on above: Pattern: Regular 07-17-2007 10:05-0400 Respiratory Rate 16 /min Lavinia Britton [facility] Internal Medicine Work Phone: Comment on above: Pattern: Undefined 07-17-2007 10:05-0400 Weight 56.7 kg Cole [facility] Internal Medicine Work Phone: 06-13-2007 11:12-0400 Body Temperature 97.7 [degF] Lavinia Britton [facility] Internal Medicine Work Phone: Comment on above: Method: Undefined 06-13-2007 11:12-0400 Body weight 58.51 kg Lavinia Britton [facility] Internal Medicine Work Phone: 06-13-2007 11:12-0400 BP Diastolic 58 mm[Hg] Lavinia Britton [facility] Internal Medicine Work Phone: Comment on above: Patient Position: Sitting; Cuff Location : Right Arm; Cuff Size: Standard 06-13-2007 11:12-0400 BP Systolic 104 mm[Hg] Lavinia Britton [facility] Internal Medicine Work Phone: Comment on above: Patient Position: Sitting; Cuff Location : Right Arm; Cuff Size: Standard 06-13-2007 11:12-0400 Head Circumference 0 cm Cole Grover [facility] Internal Medicine Work Phone: 06-13-2007 11:12-0400 Head Occipital-frontal circumference 0 cm Lavinia Britton [facility] Internal Medicine; [facility] Work Phone: 06-13-2007 11:12-0400 Height 0 cm Lavinia Britton [facility] Internal Medicine Work Phone: 06-13-2007 11:12-0400 Pulse (Heart Rate) 80 /min Lavinia Britton [facility] Internal Medicine Work Phone: Comment on above: Pattern: Regular 06-13-2007 11:12-0400 Respiratory Rate 16 /min Lavinia Britton [facility] Internal Medicine Work Phone: Comment on above: Pattern: Undefined 06-13-2007 11:12-0400 Weight 58.51 kg Cole [facility] Internal Medicine Work Phone: 06-05-2007 15:44-0400 Body weight 0 [facility] Work Phone: 06-05-2007 15:44-0400 BP Diastolic 78 mm[Hg] [facility] Internal Medicine Work Phone: Comment on above: Patient Position: Sitting; Cuff Location : Left Arm; Cuff Size: Standard 06-05-2007 15:44-0400 BP Systolic 124 mm[Hg] [facility] Work [facility]: Comment on above: Patient Position: Sitting; Cuff Location : Left Arm; Cuff Size: Standard 06-05-2007 15:44-0400 Head Circumference 0 cm Cole [facility] Internal Medicine Work Phone: 06-05-2007 15:44-0400 Head Occipital-frontal circumference 0 cm [facility] [place] [facility]; [facility] Work Phone: 06-05-2007 15:44-0400 Height 0 cm Kaley [facility] Internal Medicine Work Phone: 06-05-2007 15:44-0400 Pulse (Heart Rate) 68 /min Kaley [facility] Internal Medicine Work Phone: Comment on above: Pattern: Regular 06-05-2007 15:44-0400 Respiratory Rate 16 /min Kaley [facility] Internal Medicine Work Phone: Comment on above: Pattern: Unlabored 06-05-2007 15:44-0400 Weight 0 kg [facility] Internal Medicine Work Phone: 05-29-2007 11:08-0400 Body Temperature 97.8 [degF] [facility] Internal Medicine Work Phone: Comment on above: Method: Undefined 05-29-2007 11:08-0400 Body weight 0 kg Lavinia [facility] Internal Medicine Work Phone: 05-29-2007 11:08-0400 BP Diastolic 84 mm[Hg] [facility] Work [facility]: Comment on above: Patient Position: Sitting; Cuff Location : Right Arm; Cuff Size: Standard 05-29-2007 11:08-0400 BP Systolic 142 mm[Hg] [facility] Work Phone: Comment on above: Patient Position: Sitting; Cuff Location : Right Arm; Cuff Size: Standard 05-29-2007 11:08-0400 Head Circumference 0 cm Cole [facility] Internal Medicine Work Phone: 05-29-2007 11:08-0400 Head Occipital-frontal [facility] Work Phone: 05-29-2007 11:08-0400 Height 0 cm Lavinia Britton [facility] Internal Medicine Work Phone: 05-29-2007 11:08-0400 Pulse (Heart Rate) 68 /min Lavinia Britton [facility] Internal Medicine Work Phone: Comment on above: Pattern: Regular 05-29-2007 11:08-0400 Respiratory Rate 18 /min Lavinia Britton [facility] Internal Medicine Work Phone: Comment on above: Pattern: Undefined 05-29-2007 11:08-0400 Weight 0 kg [facility] Internal Medicine Work Phone: 05-04-2007 08:24-0500 BMI (Body Mass Index) 22.14 kg/m2 [facility] Internal Medicine Work Phone: 05-04-2007 08:24-0500 Body Temperature 96.9 [degF] Lavinia Britton [facility] Internal Medicine Work Phone: Comment on above: Method: Undefined 05-04-2007 08:24-0500 Body weight 59.88 kg Lavinia Britton [facility] Internal Medicine Work Phone: 05-04-2007 08:24-0500 BP Diastolic 74 mm[Hg] Lavinia Britton [facility] Internal Medicine Work Phone: Comment on above: Patient Position: Sitting; Cuff Location : Left Arm; Cuff Size: Standard 05-04-2007 08:24-0500 BP Systolic 116 mm[Hg] Lavinia Britton [facility] Internal Medicine Work Phone: Comment on above: Patient Position: Sitting; Cuff Location : Left Arm; Cuff Size: Standard 05-04-2007 08:24-0500 BSA (Body Surface Area) 1.65 m2 Lavinia Britton [facility] Internal Medicine Work Phone: 05-04-2007 08:24-0500 Head Circumference 0 cm [facility] Internal Medicine Work Phone: 05-04-2007 08:24-0500 Head Occipital-frontal circumference 0 cm Lavinia Britton [facility] Internal Medicine; [facility] Work Phone: 05-04-2007 08:24-0500 Height 164.47 cm Lavinia Britton [facility] Internal Medicine Work Phone: 05-04-2007 08:24-0500 Pulse (Heart Rate) 80 /min Lavinia Britton [facility] Internal Medicine Work Phone: Comment on above: Pattern: Regular 05-04-2007 08:24-0500 Respiratory Rate 16 /min Lavinia Britton [facility] Internal Medicine Work Phone: Comment on above: Pattern: Undefined 05-04-2007 08:24-0500 Weight 59.88 kg Cole [facility] Internal Medicine Work Phone: 05-03-2006 16:40-0500 BMI (Body Mass Index) 22.17 kg/m2 [facility] Internal Medicine Work Phone: 05-03-2006 16:40-0500 Body Temperature 98.2 [degF] Lavinia Britton [facility] Internal Medicine Work Phone: Comment on above: Method: Oral 05-03-2006 16:40-0500 Body weight 59.96 kg Lavinia Britton [facility] Internal Medicine Work Phone: 05-03-2006 16:40-0500 BP Diastolic 76 mm[Hg] Lavinia Britton [facility] Internal Medicine Work Phone: Comment on above: Patient Position: Sitting; Cuff Location : Left Arm; Cuff Size: Standard 05-03-2006 16:40-0500 BP Systolic 128 mm[Hg] Lavinia Britton [facility] Internal Medicine Work Phone: Comment on above: Patient Position: Sitting; Cuff Location : Left Arm; Cuff Size: Standard 05-03-2006 16:40-0500 BSA (Body Surface Area) 1.65 m2 Lavinia Britton [facility] Internal Medicine Work Phone: 05-03-2006 16:40-0500 Head Circumference 0 cm [facility] Internal Medicine Work Phone: 05-03-2006 16:40-0500 Head Occipital-frontal circumference 0 cm Lavinia Britton [facility]; [facility] Work Phone: 05-03-2006 16:40-0500 Height 164.47 cm Lavinia Britton [facility] Work Phone: 05-03-2006 16:40-0500 Pulse (Heart Rate) 68 /min Lavinia Britton [facility] Work Phone: Comment on above: Pattern: Regular 05-03-2006 16:40-0500 Respiratory Rate 16 /min Lavinia Britton [facility] Work Phone: Comment on above: Pattern: Unlabored 05-03-2006 16:40-0500 Weight 59.96 kg Cole Fast [facility] Work Phone: 04-24-2006 09:15-0500 Body Temperature 97.8 [degF] Conchita Pollard RN [facility] Work Phone: Comment on above: Method: Oral 04-24-2006 09:15-0500 Body weight 60.33 kg Conchita Pollard RN [facility] Work Phone: 04-24-2006 09:15-0500 BP Diastolic 68 mm[Hg] Conchita Pollard RN [facility] Work Phone: Comment on above: Patient Position: Sitting; Cuff Location : Left Arm; Cuff Size: Standard 04-24-2006 09:15-0500 BP Systolic 102 mm[Hg] Conchita Pollard RN [facility] Work Phone: Comment on above: Patient Position: Sitting; Cuff Location : Left Arm; Cuff Size: Standard 04-24-2006 09:15-0500 Head Circumference 0 cm Cole Fast [facility] Work Phone: 04-24-2006 09:15-0500 Head Occipital-frontal circumference 0 cm Conchita Pollard RN [facility]; [facility] Work Phone: 04-24-2006 09:15-0500 Height 0 cm Conchita Pollard RN [facility] Work Phone: 04-24-2006 09:15-0500 Pulse (Heart Rate) 72 /min Conchita Pollard RN [facility] Work Phone: Comment on above: Pattern: Irregular 04-24-2006 09:15-0500 Respiratory Rate 16 /min Conchita Pollard RN [facility] Work Phone: Comment on above: Pattern: Unlabored 04-24-2006 09:15-0500 Weight 60.33 kg [facility] Internal Medicine Work Phone: 02-23-2006 09:58-0500 Body Temperature 97.4 [degF] [facility] Internal Medicine Work Phone: Comment on above: Method: Oral 02-23-2006 09:58-0500 Body weight 61.24 kg Daniella [facility] Internal Medicine Work Phone: 02-23-2006 09:58-0500 BP Diastolic 74 mm[Hg] [facility] Internal Medicine Work Phone: Comment on above: Patient Position: Sitting; Cuff Location : Undefined; Cuff Size: Undefined 02-23-2006 09:58-0500 BP Systolic 116 mm[Hg] [facility] Internal Medicine Work Phone: Comment on above: Patient Position: Sitting; Cuff Location : Undefined; Cuff Size: Undefined 02-23-2006 09:58-0500 Head Circumference 0 cm [facility] Medicine Work Phone: 02-23-2006 09:58-0500 Head Occipital-frontal circumference 0 cm [facility] Internal Medicine; [facility] Medicine Work Phone: 02-23-2006 09:58-0500 Height 0 cm [facility] Medicine Work Phone: 02-23-2006 09:58-0500 Pulse (Heart Rate) 72 /min Daniella [facility] Internal Medicine Work Phone: Comment on above: Pattern: Regular 02-23-2006 09:58-0500 Respiratory Rate 17 /min Daniella [facility] Internal Medicine Work Phone: Comment on above: Pattern: Undefined 02-23-2006 09:58-0500 Weight 61.24 kg Coledavid Grover [facility] Work Phone: 12-08-2005 11:31-0400 Body Temperature 98.2 [degF] Cole Fast [facility] Work Phone: Comment on above: Method: Tympanic 12-08-2005 11:31-0400 Body weight 60.33 kg Cole Grover [facility] Work Phone: 12-08-2005 11:31-0400 BP Diastolic 68 mm[Hg] Cole Fast [facility] Work Phone: Comment on above: Patient Position: Sitting; Cuff Location : Left Arm; Cuff Size: Standard 12-08-2005 11:31-0400 BP Systolic 132 mm[Hg] Cole Grover [facility] Work Phone: Comment on above: Patient Position: Sitting; Cuff Location : Left Arm; Cuff Size: Standard 12-08-2005 11:31-0400 Head Circumference 0 cm Cole Fast [facility] Work Phone: 12-08-2005 11:31-0400 Head Occipital-frontal circumference 0 cm Cole Grover DO Work Phone: [facility]; [facility] Work Phone: 12-08-2005 11:31-0400 Height 0 cm Cole Reilly [facility] Work Phone: 12-08-2005 11:31-0400 Pulse (Heart Rate) 64 /min Cole Grover [facility] Work Phone: Comment on above: Pattern: Regular 12-08-2005 11:31-0400 Weight 60.33 kg Cole Grover [facility] Work Phone: Encounters Encounter Date Encounter Type Care Provider Facility Start: 08-16-2024 End: 08-16-[address] Cole Grover DO Work Phone: [facility] Work Phone: Start: 08-16-2024 End: 08-16-[address] Cole Grover DO -Laboratory Work Phone: Start: 08-16-2024 End: 08-16-2024 ambulatory Cole Fast Facility:[facility] Start: 06-19-2024 End: 06-19-[address] Cole Grover DO Work Phone: [facility] Work Phone: Start: 06-19-2024 End: 06-19-[address] Cole Grover DO -Laboratory Work Phone: Start: 06-19-2024 End: 06-19-2024 ambulatory Cole Fast Facility:[facility] Start: 06-04-2024 End: 06-04-2024 Patient encounter procedure Myles Johnson [employer] EX[employer]ERT-C -[facility] Work Phone: Start: 06-04-2024 End: 06-04-2024 ambulatory Myles Johnson [employer]IL[employer] SAF[employer] EXPERT Facility:[facility] Start: 03-27-2024 End: 03-27-[address] Cole Grover DO -Radiology, [place] Work Phone: Start: 03-27-2024 End: 03-27-2024 ambulatory Cole Fast Facility:[facility] Start: 03-19-2024 End: 03-19-[address] Cole Grover DO -Laboratory Work Phone: Start: 03-19-2024 End: 03-19-2024 ambulatory Cole Fast Facility:[facility] Start: 01-11-2024 End: 01-11-2024 ambulatory Cole Fast Facility:[facility] Start: 11-01-2023 End: 11-01-2023 ambulatory Cole Fast Facility:[facility] Start: 09-13-2023 End: 09-13-2023 ambulatory Cole Fast Facility:[facility] Start: 06-09-2023 End: 06-09-[address] Cole Grover Work Phone: [facility] Work Phone: Start: 06-09-2023 End: 06-09-[address] Cole Grover Work Phone: [facility]-Laboratory Work Phone: Start: 03-17-2023 End: 03-17-[address] Cole Grover Work Phone: [facility] Work Phone: Start: 12-14-2022 End: 12-14-2022 Cole Fast DO Work Phone: [facility] Start: 12-02-2022 End: 12-02-2022 Cole Fast DO Work Phone: [facility] Start: 10-27-2022 End: 10-27-[address] Cole Grover Work Phone: [facility] Work Phone: Start: 10-27-2022 End: 10-27-[address] Cole Grover Work Phone: [facility]-Outpatient Bone Densitometry Work Phone: Start: 09-12-2022 End: 10-03-2022 Office outpatient visit 15 minutes Cole Grover DO Work Phone: [facility] Start: 09-12-2022 Cole Fast DO Work Phone: [facility] Start: 09-05-2022 End: 09-05-[address] Cole Grover Work Phone: [facility] Work Phone: Start: 09-02-2022 End: 09-02-[address] Cole Grover Work Phone: [facility] Work Phone: Start: 09-02-2022 End: 09-02-[address] Cole Grover Work Phone: [facility]-Laboratory Work Phone: Start: 08-24-2022 Non-patient / Non-visit Dr. Cole Grover Work Phone: [facility] Work Phone: Start: 06-07-2022 Cole Fast DO Work Phone: [facility] Start: 06-07-2022 End: 06-09-2022 Office outpatient visit 5 minutes Cole Fast DO Work Phone: [facility] Start: 06-03-2022 ambulatory Cole A Fast DO Compreh ensive Internal Med Start: 06-03-2022 End: 07-10-2022 Office outpatient visit 25 minutes Cole Fast DO Work Phone: [facility] Start: 06-03-2022 Cole Fast DO Work Phone: [facility] Start: 05-24-2022 End: 05-24-[address] Cole Grover Work Phone: [facility] Work Phone: Start: 05-24-2022 End: 05-24-[address] Cole Grover Work Phone: [facility]-Laboratory Start: 04-15-[address] Cole Grover Work Phone: [facility]-Physical Therapy Start: 03-25-[address] Cole Grover Work Phone: [facility]-Physical Therapy Start: 03-24-2022 End: 03-24-2022 Cole Grover DO Work Phone: [facility] Start: 03-16-2022 Non-patient / Non-visit Dr. Cole Grover Work Phone: [facility] Start: 03-16-2022 End: 03-16-[address] Cole Grover Work Phone: [facility] Work Phone: Start: 03-16-2022 End: 03-16-[address] Cole Grover Work Phone: [facility]-Cardiovascular Services Start: 02-14-2022 End: 02-14-2022 Cole Fast DO Work Phone: [facility] Start: 02-14-2022 Non-patient / Non-visit Dr. Cole Grover Work Phone: [facility] Start: 02-14-2022 End: 02-14-[address] Cole Grover Work Phone: [facility] Work Phone: Start: 02-14-2022 End: 02-14-[address] [facility] Start: 01-13-2022 End: 01-13-[address] 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 (Primary Dx); Hiatal hernia Start: 12-13-2021 End: 12-13-2021 Office outpatient visit 5 minutes Cole Fast DO Work Phone: [facility] Start: 10-08-2021 End: 10-08-2021 Patient encounter procedure [facility]-Outpatient Breast Imaging Start: 09-10-2021 End: 10-12-2021 Office outpatient visit 25 minutes Cole Fast DO Work Phone: [facility] Start: 09-10-2021 Cole Fast DO Work Phone: [facility] Start: 09-02-2021 End: 09-02-2021 Patient encounter procedure [facility]-Laboratory Start: 06-21-2021 End: 06-21-2021 Office outpatient visit 5 minutes Cole Fast DO Work Phone: [facility] Start: 05-26-2021 End: 05-27-2021 Office outpatient visit 25 minutes Cole Fast DO Work Phone: [facility] Start: 05-17-2021 End: 05-17-2021 Patient encounter procedure [facility]-Laboratory Start: 01-15-2021 End: 01-20-2021 Office outpatient visit 25 minutes Cole Fast DO Work Phone: [facility] Start: 01-06-2021 End: 01-06-2021 ambulatory [facility]ESS [facility] Start: 01-04-2021 End: 01-04-2021 Office outpatient visit 5 minutes Cole Fast DO Work Phone: [facility] Start: 01-04-2021 End: 01-04-2021 Patient encounter status Cole Fast DO Work Phone: [facility] Start: 11-17-2020 End: 11-17-2020 Office outpatient visit 5 minutes Cole Fast DO Work Phone: [facility] Start: 11-02-2020 End: 11-02-2020 Office outpatient visit 25 minutes Cole Fast DO Work Phone: [facility] Start: 07-28-2020 End: 07-30-2020 Office outpatient visit 15 minutes Cole Fast DO Work Phone: [facility] Start: 07-28-2020 Review Cole Fast DO Work Phone: [facility] Start: 04-29-2020 End: 04-29-2020 Office outpatient visit 25 minutes Cole Fast [facility] Start: 03-31-2020 End: 04-01-2020 Office outpatient visit 15 minutes Cole Fast [facility] Start: 03-27-2020 End: 04-01-2020 Office outpatient visit 15 minutes Cole Fast [facility] Start: 03-25-2020 End: 03-26-2020 Office outpatient visit 15 minutes Cole Fast [facility] Start: 03-23-2020 End: 03-24-2020 Office outpatient visit 40 minutes Cole Fast [facility] Start: 03-13-2020 Review Cole Fast Comprehens [facility] Start: 03-11-2020 End: 03-11-2020 Phone Encounter Cole Fast [facility] Start: 03-11-2020 End: 03-11-2020 Cole Fast DO Work Phone: [facility] Start: 03-10-2020 End: 03-31-2020 Phone Encounter Cole Fast [facility] Start: 03-10-2020 End: 03-31-2020 Cole Fast DO Work Phone: [facility] Start: 03-10-2020 Review Cole Fast [facility] Start: 03-10-2020 Review Cole Fast [facility] Start: 03-10-2020 End: 03-10-2020 Phone Encounter Cole Fast [facility] Start: 03-10-2020 End: 03-10-2020 Cole Fast DO Work Phone: [facility] Start: 03-09-2020 End: 03-10-2020 Office outpatient visit 15 minutes Cole Fast [facility] Start: 01-14-2020 End: 01-16-2020 Office outpatient visit 25 minutes Cole Fast [facility] Start: 01-14-2020 Review Cole Fast [facility] Start: 12-09-2019 End: 12-09-2019 Office outpatient visit 5 minutes Cole Fast [facility] Start: 09-18-2019 End: 09-19-2019 Office outpatient visit 25 minutes Cole Fast [facility] Start: 09-18-2019 Review Cole Fast [facility] Start: 08-20-2019 End: 08-20-2019 Phone Encounter Cole Fast [facility] Start: 08-20-2019 End: 08-20-2019 Cole Fast DO Work Phone: [facility] Start: 07-10-2019 End: 07-11-2019 Office outpatient visit 5 minutes Cole Fast [facility] Start: 06-18-2019 End: 06-18-2019 Office outpatient visit 25 minutes Cole Fast [facility] Start: 03-19-2019 End: 03-19-2019 Office outpatient visit 15 minutes Cole Fast [facility] Start: 01-30-2019 End: 06-18-2019 Office outpatient visit 25 minutes Cole Fast [facility] Start: 01-10-2019 End: 01-10-2019 Office outpatient visit 5 minutes Cole Fast [facility] Start: 10-29-2018 End: 10-29-2018 Office outpatient visit 25 minutes Cole Fast [facility] Start: 10-29-2018 Review Cole Fast [facility] Start: 08-14-2018 End: 08-14-2018 Annotation/Addendum Cole Fast [facility] Start: 08-14-2018 End: 08-14-2018 Cole Fast DO Work Phone: [facility] Start: 07-20-2018 End: 07-22-2018 Office outpatient visit 25 minutes Cole Fast [facility] Start: 07-20-2018 End: 07-22-2018 Patient encounter status Cole Fast DO Work Phone: [facility] Start: 07-09-2018 End: 07-09-2018 Office outpatient visit 5 minutes Cole Fast [facility] Start: 06-29-2018 End: 07-01-2018 Office outpatient visit 25 minutes Cole Fast [facility] Start: 06-01-2018 End: 06-03-2018 Office outpatient visit 25 minutes Cole Fast [facility] Start: 06-01-2018 Review Cole Fast [facility] Start: 04-02-2018 End: 04-02-2018 Phone Encounter Cole Fast [facility] Start: 04-02-2018 End: 04-02-2018 Cole Fast DO Work Phone: [facility] Start: 01-31-2018 End: 02-01-2018 Office outpatient visit 25 minutes Cole Fast [facility] Start: 01-04-2018 End: 01-04-2018 Office outpatient visit 5 minutes Cole Fast [facility] Start: 12-22-2017 End: 12-24-2017 Office outpatient visit 5 minutes Cole Fast [facility] Start: 09-27-2017 End: 11-12-2017 Office outpatient visit 25 minutes Cole Fast [facility] Start: 06-12-2017 End: 06-12-2017 Office outpatient visit 5 minutes Cole Fast [facility] Start: 05-26-2017 End: 05-26-2017 Office outpatient visit 25 minutes Cole Fast [facility] Start: 01-18-2017 End: 01-19-2017 Office outpatient visit 15 minutes Cole Fast [facility] Start: 12-30-2016 End: 12-30-2016 Office outpatient visit 5 minutes Cole Fast [facility] Start: 12-22-2016 End: 12-22-2016 Office outpatient visit 5 minutes Cole Fast [facility] Start: 09-14-2016 End: 10-21-2016 Office outpatient visit 15 minutes Cole Fast [facility] Start: 06-10-2016 End: 06-14-2016 Office outpatient visit 5 minutes Cole Fast [facility] Start: 04-15-2016 End: 04-17-2016 Office outpatient visit 25 minutes Cole Fast [facility] Start: 12-11-2015 End: 12-11-2015 Office outpatient visit 5 minutes Cole Fast [facility] Start: 09-11-2015 End: 09-14-2015 Office outpatient visit 25 minutes Cole Fast [facility] Start: 08-10-2015 End: 08-10-2015 Phone Encounter Cole Fast [facility] Start: 08-10-2015 End: 08-10-2015 Cole Fast DO Work Phone: [facility] Start: 06-11-2015 End: 06-11-2015 Office outpatient visit 5 minutes Cole Fast [facility] Start: 06-02-2015 End: 06-02-2015 Historical Summary Cole Fast [facility] Start: 06-02-2015 End: 06-02-2015 Cole Fast DO Work Phone: [facility] Start: 02-17-2015 End: 02-17-2015 Office outpatient visit 15 minutes Cole Fast [facility] Start: 12-10-2014 End: 12-10-2014 Office outpatient visit 5 minutes Cole Fast [facility] Start: 08-27-2014 End: 08-27-2014 Office outpatient visit 25 minutes Cole Fast [facility] Start: 08-27-2014 End: 08-27-2014 Patient encounter procedure Cole Fast DO Work Phone: [facility] Start: 06-17-2014 End: 06-17-2014 Office outpatient visit 5 minutes Cole Fast [facility] Start: 04-23-2014 End: 04-23-2014 Office outpatient visit 25 minutes Cole Reilly [facility] Start: 08-02-2013 End: 08-02-2013 Patient encounter Cole Fast [facility] Start: 08-02-2013 End: 08-02-2013 Cole Fast DO Work Phone: [facility] Start: 03-22-2013 End: 03-24-2013 Patient encounter Cole Fast [facility] Start: 03-22-2013 End: 03-24-2013 Cole Fast DO Work Phone: [facility] Start: 02-13-2013 End: 02-14-2013 Patient encounter Rhea Perez [facility] Start: 02-13-2013 End: 02-14-2013 Cole Fast DO Work Phone: [facility] Start: 08-20-2012 End: 08-21-2012 Patient encounter Cole Reilly [facility] Start: 08-20-2012 End: 08-21-2012 Cole Fast DO Work Phone: [facility] Start: 07-11-2012 End: 07-11-2012 Patient encounter Cole Fast [facility] Start: 07-11-2012 End: 07-11-2012 Cole Fast DO Work Phone: [facility] Start: 04-11-2012 End: 04-11-2012 Patient encounter Cole Fast [facility] Start: 04-11-2012 End: 04-11-2012 Cole Fast DO Work Phone: [facility] Start: 10-11-2011 End: 10-11-2011 Annotation/Addendum Cole Fast [facility] Start: 10-11-2011 End: 10-11-2011 Cole Fast DO Work Phone: [facility] Start: 10-10-2011 End: 10-11-2011 Annotation/Addendum Cole Fast [facility] Start: 10-10-2011 End: 10-11-2011 Cole Fast DO Work Phone: [facility] Start: 10-07-2011 End: 10-07-2011 Office outpatient visit 15 minutes Cole Fast [facility] Start: 09-14-2011 End: 09-20-2011 Patient encounter Cole Fast [facility] Start: 09-14-2011 End: 09-20-2011 Cole Fast DO Work Phone: [facility] Start: 05-04-2011 End: 05-04-2011 Patient encounter Cole Grover [facility] Start: 05-04-2011 End: 05-04-2011 Cole Fast DO Work Phone: [facility] Start: 10-26-2010 End: 10-26-2010 Patient encounter Cole Grover [facility] Start: 10-26-2010 End: 10-26-2010 Cole Fast DO Work Phone: [facility] Start: 10-19-2010 End: 10-19-2010 Patient encounter Cole Grover [facility] Start: 10-19-2010 End: 10-19-2010 Cole Fast DO Work Phone: [facility] Start: 10-01-2010 End: 10-01-2010 Phone Encounter Cole Grover [facility] Start: 10-01-2010 End: 10-01-2010 Cole Fast DO Work Phone: [facility] Start: 09-28-2010 End: 09-28-2010 Office outpatient visit 25 minutes Coledavid Grover [facility] Start: 04-12-2010 End: 04-12-2010 Patient encounter Cole Grover [facility] Start: 04-12-2010 End: 04-12-2010 Cole Fast DO Work Phone: [facility] Start: 04-12-2010 End: 04-12-2010 Patient encounter Cole Grover [facility] Start: 04-12-2010 End: 04-12-2010 Cole Fast DO Work Phone: [facility] Start: 01-13-2010 End: 01-13-2010 Patient encounter Reinadavid Estrada CMA [facility] Start: 01-13-2010 End: 01-13-2010 Cole Fast DO Work Phone: [facility] Start: 09-30-2009 End: 09-30-2009 Patient encounter Cole Grover [facility] Start: 09-30-2009 End: 09-30-2009 Cole Fast DO Work Phone: [facility] Start: 04-15-2009 End: 04-15-2009 Patient encounter Cole Fast [facility] Start: 04-15-2009 End: 04-15-2009 Cole Fast DO Work Phone: [facility] Start: 07-24-2008 End: 07-24-2008 Office outpatient visit 10 minutes Cole Fast [facility] Start: 07-16-2008 End: 07-16-2008 Patient encounter Cole Fast [facility] Start: 07-16-2008 End: 07-16-2008 Cole Fast DO Work Phone: [facility] Start: 04-30-2008 End: 04-30-2008 Patient encounter Cole Fast [facility] Start: 04-30-2008 End: 04-30-2008 Cole Fast DO Work Phone: [facility] Start: 01-22-2008 End: 01-22-2008 Office outpatient visit 15 minutes Cole Fast [facility] Start: 07-17-2007 End: 07-17-2007 Patient encounter Cole Fast [facility] Start: 07-17-2007 End: 07-17-2007 Cole Fast DO Work Phone: [facility] Start: 06-20-2007 End: 06-20-2007 Historical Summary Cole Fast [facility] al Medicine Start: 06-20-2007 End: 06-20-2007 Cole Fast DO Work Phone: [facility] Start: 06-13-2007 End: 06-13-2007 Patient encounter Cole Fast [facility] Start: 06-13-2007 End: 06-13-2007 Cole Fast DO Work Phone: [facility] Start: 06-05-2007 End: 06-05-2007 Patient encounter Cole Fast [facility] Start: 06-05-2007 End: 06-05-2007 Cole Fast DO Work Phone: [facility] Start: 05-29-2007 End: 05-29-2007 Patient encounter Cole Fast [facility] Start: 05-29-2007 End: 05-29-2007 Cole Fast DO Work Phone: [facility] Start: 05-04-2007 End: 05-04-2007 Patient encounter Cole Grover [facility] Start: 05-04-2007 End: 05-04-2007 Cole Fast DO Work Phone: [facility] Start: 05-03-2006 End: 01-23-2007 Patient encounter Cole Grover [facility] Start: 05-03-2006 End: 01-23-2007 Cole Fast DO Work Phone: [facility] Start: 04-24-2006 End: 04-24-2006 Error Encounter Cole Grover [facility] Start: 04-24-2006 End: 04-24-2006 Cole Fast DO Work Phone: [facility] Start: 04-24-2006 End: 04-24-2006 Patient encounter Cole Grover [facility] Start: 04-24-2006 End: 04-24-2006 Cole Fast DO Work Phone: [facility] Start: 03-23-2006 End: 03-23-2006 Nursing evaluation of patient and report Cole Grover [facility] Start: 03-23-2006 End: 03-23-2006 Cole Fast DO Work Phone: [facility] Start: 03-02-2006 End: 03-02-2006 Historical Summary Cole Fast [facility] Start: 03-02-2006 End: 03-02-2006 Cole Fast DO Work Phone: [facility] Start: 02-23-2006 End: 02-23-2006 Office outpatient visit 10 minutes Coledavid Grover [facility] Start: 01-09-2006 End: 01-09-2006 Historical Summary Cole Fast [facility] Start: 01-09-2006 End: 01-09-2006 Cole Fast DO Work Phone: [facility] Start: 12-08-2005 End: 12-08-2005 Office outpatient visit 25 minutes Cole Fast [facility] End: 08-10-2015 Patient encounter procedure Lavinia Britton [facility]; [facility] Work Phone: End: 10-29-2018 Patient encounter status Reina Manprudencio DUVALL [facility]; [facility] Work Phone: Patient encounter status Reina Estrada [facility]; [facility] Work Phone: Patient encounter status Reina Estrada [facility]; [facility] Work Phone: End: 10-12-2021 Patient encounter status Cole David Grover DO Work Phone: [facility]; [facility] Work Phone: Procedures Date Procedure Procedure Detail Performing Clinician Start: 06-19-2024 Urine microalbumin/creatini ne ratio measurement Dr. 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 Cole Grover DO Work Phone: Start: 10-27-2022 End: 11-03-2022 Procedure Note: See Note; NOTES: [facility] Imaging Services [address] [place] [id number] Dexa Bone Density Study MR#: [id number] Acct: [id number] Name: BREANNA PURCELL Rep #: [id number] : 1940 F 82 From: Graham nix MD PCP: Dr. Cole Grover DO Status: [facility] CLI Study: Dexa Bone Density Study Date of Exam: 10/27/22 Exam# [id number] Ordering Dr: Cole Grover DO STUDY: DUAL ENERGY X-RAY ABSORPTIOMETRY / DXA REASON FOR EXAM: Female, 82 years old. Z780 TECHNIQUE: Bone Mineral Density (BMD) measurements of lumbar spine and bilateral hips were obtained. COMPARISON: Comparison is made with prior study dated April 21, 2020. __ FINDINGS: Lumbar Spine (L1-L4): g/cm2 (0.849) / T-score (-1.5) / Z-score (1.1) Findings are suggestive of osteopenia with a low fracture risk. Left Femur Total: g/cm2 (0.768) / T-score (-1.4) / Z-score (0.7) Left Femoral Neck: g/cm2 (0.742) / T-score (-1.0) / Z-score (1.4) Right Femur Total: g/cm2 (0.774) / T-score (-1.4) / Z-score (0.7) Right Femoral Neck: g/cm2 (0.663) / T-score (-1.7) / Z-score (0.7) The T-Scores on the most recent prior examination were: Lumbar Spine (L1-L4): There has been improvement of bone density since the previous examination. Left Femur Total: which represents a worsening of 5.9%. Right Femur Total: which represents a worsening of 1.4%. __ BD/Dexa Bone Density Study IMPRESSION: The patient is considered osteopenic as outlined below according to World Trino Organization (WHO) criteria with a moderate fracture risk. There has been worsening of bone density since the previous examination. __ Reference Information: The T-score is the number of standard deviations above or below the standard which is normal for young adults at their peak bone mineral density. The World Health Organization (WHO) interprets the T-scores as follows: Above -1 Normal bone density Between -1 and -2.5 Osteopenia Equal to / or below -2.5 Osteoporosis As a practical clinical guideline, osteopenia may be graded as follows: Mild -1 through -1.5 Moderate -1.6 through -2.0 Severe -2.1 through -2.4 The Z-score is the number of standard deviations above or below age-matched controls. A Z-score of less than -1.5 would be considered abnormal. References: 1. NIH Osteoporosis and Related Bone Diseases www osteo.org 2. International Society for Clinical Densitometry www iscd.org 3. National Osteoporosis Foundation www nof.org Electronically Signed: Graham Rivera MD at 15:42 EDT Reading Location ID and State: [facility] / [place] , Service support , CC: Dr. Cole Grover DO School Librarian: Signed Cole Grover DO Work Phone: Start: 10-27-[address] Cole Grover Work Phone: Start: 10-27-2022 End: 10-28-2022 Procedure Note: See Note; NOTES: [facility] Imaging Services [address] [place] [address] SCRN MAMM (CAD)W/CHARLOTTE BILAT MR#: [id number] Acct: [id number] Name: BREANNA PURCELL Rep #: [id number] : 1940 F 82 From: Christian Gray DO PCP: Dr. Cole Grover DO Status: REG CLI Study: SCRN MAMM (CAD)W/CHARLOTTE BILAT Date of Exam: 10/05 06/26 Exam# [id number] Ordering Dr: Cole Grover DO MAMMOGRAPHY - BILATERAL SCREENING REASON FOR EXAM: Female, 82 years old. Routine annual screening examination. PERTINENT HISTORY: Mother with breast cancer. TECHNIQUE: Digital bilateral breast charlotte (3D mammographic acquisition) in the CC and MLO projections. 2-D mediolateral oblique (MLO) and craniocaudad (CC) views of both breasts were obtained. CAD: Full Field Digital Mammography with Computer Added Detection was performed. COMPARISON: Screening mammogram from 10/08/2021, 09/02/2020. __ FINDINGS: Breast Composition: The breasts are heterogeneously dense, which may obscure small masses. There are no dominant masses or suspicious calcifications. No other significant abnormalities are identified. There has been no significant change since the prior study. __ BI/SCRN MAMM (CAD)W/CHARLOTTE BILAT IMPRESSION: Stable bilateral screening mammogram. Yearly follow-up mammogram recommended. (A) __ ASSESSMENT CATEGORY: BIRADS Category 1: Negative. A letter regarding these results will be sent to the patient by the facility within 30 days. Approximately 10% of breast cancers are not detected by mammography. A normal mammogram should not delay biopsy of a clinically suspicious abnormality. Electronically Signed: Christian Gray DO at 8:23 EDT Reading Location ID and State: [facility] / [place] Tel , Service support , CC: Dr. Cole Grover DO School Librarian: Signed Cole Grover DO Work Phone: Start: 09-05-2022 End: 09-09-2022 Procedure Note: See Note; NOTES: [facility] [address] [place] [address] 12 Lead EKG performed by [facility] 09/05/22 1411 MR#: [id number] Acct: [id number] Name: BREANNA PURCELL Rep #: [id number] : 1940 82 From: Kevin Rose MD Attending Dr: Dr. Kevin Rose MD Status: DRE [place] Ordering Dr: Kevin Rose MD Date: 09/05/22 Location: [facility] Sex: F C Admitted: [facility]/12 Lead EKG performed by [facility] Sinus Rhythm -Short IA syndrome Matheus = 112-RSR(V1) -nondiagnostic. -Left atrial enlargement. BORDERLINE 09/05/22 1609 <Electronically signed by Kevin Rose MD> Date __ Kevin Rose MD CC: Dr. Cole Grover DO Date Dictated: 09/05/221410 Date Transcribed: 09/05/221410 School Librarian: [place] Signed Cole Grover DO Work Phone: Start: 09-05-2022 End: 09-05-2022 Procedure Note: See Note; NOTES: [facility] [address] [place] [address] OFFICE VISIT Date of Service: 09/05/22 MR#: [id number] Acct: [id number] Name: BREANNA PURCELL Rep #: [id number] : 1940 Provider: Dr. Kevin Rose MD Age/Sex: 82/F Location: [facility] Status: Signed HPI HPI History of Present Illness Details: Pleasant 82-year-old lady with no previous cardiac history who is being evaluated for shortness of breath on an incline. She actually has seen the glue mixer and no significant abnormalities have been noted she did undergo an echocardiographic evaluation which demonstrated an ejection fraction of 70% mild biatrial enlargement mild mitral regurgitation and right ventricular systolic pressure estimated to be 38 mmHg. She denies any dizziness or diaphoresis near syncope or syncope. Her shortness of breath she says is only when she is going up inclines. She did undergo a stress test where she exercised to 7 metabolic equivalents attaining appropriate heart rate and blood pressure with no evidence of ischemia. She has also seen the glue mixer and no significant abnormalities have been noted. This is on pulmonary function testing. Her physical exam demonstrates clear lung haider regular rate and rhythm and no pedal edema. Intake Vital Signs 04/21/20 13:30 09/05/22 12:58 09/05/22 14:11 Height 5 ft 3.25 in 5 ft 3.25 in 5 ft 3.25 in Weight: 134 lb BMI 23.5 BP 132/71 H Blood Pressure Location Lt brachial Position Sitting Respiration 16 Pulse 65 Pulse Source Monitor Intake Visit Reasons: TURCIOS (KULDEEP) Sales Program Coordinator Required: No Accompanied by: None Is patient in pain?: No Allergies No Known Allergies Allergy (Verified 09/05/22 14:15) Medications ondansetron 4 mg disintegrating tablet 4 mg PO Q8H PRN PRN Nausea #10 tabs 03/09/20 [Rx Confirmed 09/05/22] calcium carbonate 500 mg calcium (1,250 mg) tablet 03/12/20 [History Confirmed 09/05/22] cholecalciferol (vitamin D3) 25 mcg (1,000 unit) capsule 50 mcg PO DAILY 03/12/20 [History Confirmed 09/05/22] denosumab 60 mg/mL subcutaneous syringe (Prolia) 60 mg subcut [id number] 09/05/22 [History Confirmed 09/05/22] furosemide 20 mg tablet (Lasix) 20 mg PO DAILY #60 tabs 09/05/22 [Rx Confirmed 09/05/22] Ejection fraction %: 65 to 70 PFSH Medical History Abdominal pain Atherosclerosis Cardiac arrhythmia Dehydration Diarrhea Dyspnea on exertion Enterocolitis Osteoarthritis Small vessel disease, cerebrovascular Syncope Tachycardia Surgical History History of colonoscopy History of esophagogastroduodenoscopy (EGD) History of right inguinal hernia repair Family History Mother Colon cancer Breast cancer Hypertension Father Colon cancer Social History Smoking Status: Never smoker alcohol intake: current alcohol intake frequency: holidays/special occasions only substance use type: does not use caffeine: Yes Type: coffee Number of servings: 1 and tea Number of servings: 1 ROS Const Const: Negative for fatigue, weakness, headache(s), frequent falls, difficulty sleeping or excessive sweating Eyes Eyes: Negative for loss of peripheral vision, transient loss of vision, blurry vision, double vision or tunnel vision ENT ENT: Negative for headache(s), dizziness, Nosebleed/epistaxis or balance problems Cardio Chest Pain: No Palpitations: No Edema: Bilateral (Occasional, mild) Muscle aches with walking: None Resp Respiratory: Positive for SOB with activity (With stairs or inclines); Negative for SOB at rest, SOB orthopnea SOB lying down, Cough or paroxysmal nocturnal dyspnea GI GI: Negative nausea, vomiting, heartburn or black,tarry stools : Negative for hematuria Musc Musc: Negative for muscle aches/ myalgia, muscle weakness, joint pain or balance problems Skin Skin: Negative non-healing lesions, rash or unusual bruising Neuro Neuro: Positive for lightheadedness and syncope (4 years ago in [place]); Negative for dizziness, near syncope, frequent falls, headache(s), weakness, blurry vision, double vision or lack of coordination Fabrizio Hematologic/Lymphatic: Negative for easy bleeding or easy bruising Endo Endo: Negative for fatigue, excessive sweating or increased thirst/drinking Psych Psych: Negative for anxiety or depression Allergy Allergy/Immunology: Negative for hives and Negative for rash Cardiology Exam Const Appearance: cooperative, healthy appearing, no acute distress, well developed and well groomed Nutritional Appearance: average body habitus and well nourished Orientation: alert, awake and oriented x3 Head Head: normal to inspection, normocephalic and atraumatic Ears: hearing grossly normal bilaterally and external ears normal Nose: external nose normal, nares normal, nasal mucous membranes and turbinates normal, septum normal and no nasal discharge Face and Sinus: face symmetric Mouth: oral mucosae normal, tongue normal, oropharynx normal and moist mucous membranes Teeth and gingiva: dentition normal Throat: posterior oropharynx normal, tonsils normal and uvula midline Eyes General: appearance normal, both eyes and all related structures Eyelids: eyelids normal Conjunctivae: conjunctivae normal Pupils: PERRL, normal by confrontation and accommodation normal EOM: EOM intact bilaterally Neck Neck: normal visual inspection, trachea midline and no JVD JVD: +5 Carotids: normal carotid upstroke and bounding pulses Chest Chest inspection: normal inspection of the chest, symmetric chest movement and normal respiratory effort Auscultation: Bilateral: Clear to Auscultation Cardio Palpation: normal PMI Rate: regular rate Rhythm: regular rhythm Heart sounds: S1 normal, S2 normal and normal, physiologic split S2; Negative rub, gallop or murmur GI GI: normal to inspection, soft, no hepatosplenomegaly and bowel sounds present Neuro General: patient alert, patient awake, patient oriented x3, gait normal, moves all extremities and no focal sensory deficit Skin Skin: no rashes or lesions noted Extremities Pulses: Normal: Right Femoral Pulse, Left Femoral Pulse, Right Dorsalis Pedis Pulse, Left Dorsalis Pedis Pulse, Right Posterior Tibial Pulse, Left Posterior Tibial Pulse, Right Radial Pulse and Left Radial Pulse Lower Extremity Edema: None: Bilateral Musculoskel Musculoskeletal: No joint tenderness Psych Psychological: normal affect Supplemental Info Supplemental Information ECHOCARDIOGRAM 03/16/22 Interpretation Summary Left ventricular systolic function is normal. The estimated ejection fraction is 70 %. Apical false tendon noted. The left atrium is mildly enlarged. The right atrium is mildly enlarged. Mild (1+) mitral valve insufficiency. Trivial tricuspid valve insufficiency. Trivial aortic valve insufficiency. Trivial pericardial effusion. There are no echocardiographic indications of cardiac tamponade. Right ventricular systolic pressure estimated to be 38 mmHg. Stage 2 diastolic dysfunction. ? Stress Test Report: DATE 02/24/22 Exercise myocardial perfusion stress test. 81-year-old lady with a history of chest pain Stress protocol: Resting EKG demonstrates sinus bradycardia with a rate of 57 bpm bpm resting blood pressure is 102/62 mmHg.??? The patient exercised according to the regular Wally protocol for a total duration of 6 minutes attaining a maximum heart rate of 133 bpm which was 95% of max impacted heart rate the maximum workload was 7 metabolic equivalents.??? At rest there were no ST or T wave changes noted suggest ischemia and at peak exercise upsloping ST changes only were noted we did not meet the criteria for ischemia.??? No clinical angina was noted the test was terminated due to the target heart rate being achieved.??? The peak blood pressure was 150/70 mmHg.??? Rate-pressure product was 17,300. Myocardial perfusion protocol. 11.2 mCi of technetium 99m sestamibi was injected at rest.??? The patient exercised according to regular Wally protocol for total duration of 6 minutes and at peak exercise 36 mCi of technetium 99m sestamibi was injected stress images were obtained stress and rest images were reconstructed in comparing the short axis vertical long and horizontal long axis.??? Gated images were also obtained. Perfusion SPECT analysis: Review of the stress images demonstrate normal uptake of tracer noted in all areas of the myocardium.??? The resting images similarly demonstrate normal uptake of tracer noted in all areas of the myocardium.??? No areas of reversibility are noted to suggest ischemia no previous infarct was noted.??? A small apical defect was noted and an infarct cannot be completely excluded. Gated SPECT analysis: The gated ejection fraction is 84%. Conclusion: Normal exercise myocardial perfusion stress test at a moderate workload. Preserved ejection fraction. 24HR Holter Monitor 06/22/18 [place] [address] beats recorded over the 24HR period. Normal Sinus Rhythm with rare episodes of Sinus Arrhythmia Average heart rate was 68 BPM Minimum heart rate was 48 BPM at 11:05 PM, Sinus Bradycardia Maximum heart rate was 132 BPM at 11:32 AM, Sinus Tachycardia The longest R-R interval was 1.5 seconds at 12:14 AM There were a total of 849 premature supraventricular ectopic isolated beats, comprising of 0.9% of the total QRS complexes, 2 atrial runs. The longest run consisted of 12 beats with a maximum heart rate of 114 BPM at 1:08 PM. The fastest run consisted of 3 beats with a maximum heart rate of 128 BPM ay 8:06 AM. 35 atrial couplets, 320 compensatory pauses. No atrial fibrillation noted. The patient kept a diary with no symptoms noted. Labs: LDL Cholesterol 64 mg/dL (0-130) HDL Cholesterol 103 mg/dL (40-) Cholesterol 181 mg/dL (200) Triglycerides 71 mg/dL (-199) Diagnostics: Electrocardiogram Echocardiogram Stress Test Stress Test Nuclear Medicine Pulmonary: No Data to Display Assessment and Plan Assessment and Plan (1) Dyspnea on exertion: Status: Acute Plan: Her dyspnea on exertion actually appears to be mild. As you remember she had an echocardiogram which demonstrated preserved ejection fraction and stage II diastolic dysfunction and his stress test was actually quite good for an 81-year-old without any evidence of ischemia. At this point in time I am not inclined to perform any other testing. I would like her to try Lasix 20 mg a day for a month or so. If there is any improvement she can continue it if not then she can discontinue it. I would like to see her again in 6 months. Certainly if her symptomatology gets worse she should not hesitate to get in touch with us and then we may pursue a left heart catheterization. I explained the above to her she understands and agrees to proceed. Thank you for allowing me to participate in the care of your patient. Please don't hesitate to call if any issues arise. Orders: Orders 12 Lead EKG performed by [facility] I49.9 - Cardiac arrhythmia, unspecified, I67.9 - Cerebrovascular disease, unspecified, R00.0 - Tachycardia, unspecified, R06.09 - Other forms of dyspnea Medications: New furosemide (Lasix) 20 mg PO DAILY 60 tabs 1RF Plan Details Follow Up: 6 Months (kinza) Coding Level of Care Code Off vis,new,level 4 Diagnoses Dyspnea on exertion R06.09 Coding Level of Care Code Off vis,new,level 4 Diagnoses Dyspnea on exertion R06.09 09/05/22 2285 <Electronically signed by Kevin Rose MD> Date __ Kevin Rose MD Cosigner Signature: Date __ (if applicable) CC: DO Cole Gonzalez DO Work Phone: Start: 04-15-2022 End: 04-15-2022 Procedure Note: See Note; NOTES: [facility] [address] [place] [address] [address] [place] [address] / REEVALUATION / MEDICARE RECERTIFICATION PHYSICAL THERAPY MR#: [id number] Acct: [id number] Name: BREANNA PURCELL Rep #: [id number] : 1940 81 From: Manohar Hodges DPT, OCS, CSCS Referring DrAshanti: Dr. Cole Grover DO Status:REG R [facility]ANCE Dr. Cole Grover DO, It has been my pleasure to treat BREANNA PURCELL over the last 10 visits for B hip pain. Please see the progress note below for an update on the physical therapy plan of care! Subjective: Doing better. Up and down, some nights are sore and others are good. Overall less sore. Soreness on bad nights keeps her moving, It is still in LB and sides of hips. No problem during day unless sits too long. Activities pretty normal if she paces herself. Does HEP daily. Objective/Function: Good LB ROM, still tight with extension, no pain. Progressing nicely toward goals albeit slow Plan Plan: f/u 3 weeks as needed to ensure compliance and progression(may need GTB) Balance/Gait/Functional tests - Balance/Special Test Scores Functional Gait Assessment Score: 28 % Disability: 6.6700 Lower Extremity Functional Score: 63 Goals Goal 1:: Patient I in appropriate management of ex stretch adn strength adn ROM Goal Time Frame: 4-6 Weeks Goal Progress: Goal Met Goal 2:: Pt sleep without interruption at night Goal Time Frame: 4-6 Weeks Goal Progress: Progressing Goal 3:: Pt feel 75% better in overall pain level. Goal Time Frame: 4-6 Weeks Goal Progress: 60% Anticipated Interventions Patient/Client Instruction: Educate patient on: Condition, Plan of Care For the Purpose of:: To decrease pain, To decrease swelling/inflammation, To improve muscle performance and motor function, To increase tolerance to activity/condition/position, To improve leslie lity of physical actions for home/community/work/leisure Therapeutic Exercise to Include: Strength training, Postural training, Flexibilty training, Passive ROM, Active ROM For the Purpose of:: To decrease pain, To increase ROM, To improve nutrient delivery to tissue, To improve muscle performance and motor function, To increase tolerance to activity/condition/position Manual Therapy Techniques to Include: Passive ROM, Soft tissue mobilization For the Purpose of:: To decrease pain, To increase ROM, To improve nutrient delivery to tissue Thermo therapy (hot pack): Yes For the Purpose of:: To improve nutrient delivery to tissue Please do not hesitate to contact me at [phone] by phone or if you have questions or concerns regarding this new plan of care! Sincerely, Manohar Hodges, KENYONT, OCS, CSCS <Electronically signed by Manohar Hodges DPT, OCS, CSCS> 04/15/22 2934 CC: Dr. Cole Grover DO ALEX Signed For Medicare only, by signing this I certify the plan of care. Physicians Signature Date Cole Grover DO Work Phone: Start: 03-18-2022 End: 03-18-2022 Procedure Note: See Note; NOTES: [facility] [address] [place] [address] / REHABILITATION SERVICES INITIAL EVALUATION MR#: [id number] Acct: [id number] Name: BREANNA PURCELL Rep #: [id number] : 1940 81 From: Manohar Hodges DPT, OCS, CSCS Referring Dr.: Dr. Cole Grover DO Status: REG R CR Insurance: [facility] SELF PAY INSURANCE Patient's Visit Information BREANNA PURCELL is a 81 year old F referred to Physical Therapy by Dr. Cole Grover DO with a diagnosis of B hip pain. Date of Evaluation: 03/18/22 Physical Therapist: Manohar Hodges DPT, OCS, CSCS - Visit Plan Frequency: 2x /Week Duration: 4-6 Weeks Plan: 2x/week for 4 weeks for... 1. ensure activitiy modification with consistent backa nd hip ROM and sleeping position using pillow under or b/w legs. 2. rollout and stretch HS/quads and pirformis with MH, teach pirformis stretch for HEP(already given HS and quad). 3. teach core adn hip strength protocol and progress to HEP with pics. - Subjective Having trouble with lateral hips and back, mostly in bed causing shifting to get comfortable. Off and on for years. Hard to get comfortable and wakes her up at night. Sitting for long time at computer can make her worse when she goes to get back. Pain up to 3/10 with trasnfers and at night. Activities are pretty normal including basic ADLS. Steps at home with rail are OK. Not employed. Enjoys gardening and reading. No regular exercises. Had therapy for back years ago. - Pain LBP, post hips Pain Intensity (Out of 10): 0 Pain Intensity Range: 0, 3 - Objective wALKS i SLIGHTLY STOOPED WITH SHORT STEPS BUT SAFE ADN i AND CONFIDENT. tRANSFERS BED AND CHAIR EASILY AND i. sTEPS RECIPROCAL WITH ONE RAIL. gOOD BALANCE. Lumbar AROM extension min limited and no pain, flexion mod limited and no pain, SB min limited and no pain. Hip PROM WFL and without pain, - FOX, - FADDIR. Very tight quads, psoas, piriformis and min tight ITB B today. knee and ankle aROM WFL. strength core 3/5, hip abd and extension 3+ B, flexion 4- B, knee flexiona nd ext 4 B. ankle strength 4 B. reflexes 2/3 patella and achilles. Sensation LE WNL to gross light touch. - slump, - SLR - Balance/Special Test Scores Functional Gait Assessment Score: 28 % Disability: 6.6700 Lower Extremity Functional Score: 66 - Goals Goal 1:: Patient I in appropriate management of ex stretch adn strength adn ROM Goal Time Frame: 4-6 Weeks Goal 2:: Pt sleep without interruption at night Goal Time Frame: 4-6 Weeks Goal 3:: Pt feel 75% better in overall pain level. Goal Time Frame: 4-6 Weeks - Rehabilitation Potential Physical Therapy Diagnosis: hip and LBP likely soft tissue in nature Rehabilitation Potential: Fair - Anticipated Interventions Patient/Client Instruction: Educate patient on: Condition, Plan of Care For the Purpose of:: To decrease pain, To decrease swelling/inflammation, To improve muscle performance and motor function, To increase tolerance to activity/condition/position, To improve ability of physical actions for home/community/work/leisure Therapeutic Exercise to Include: Strength training, Postural training, Flexibilty training, Passive ROM, Active ROM For the Purpose of:: To decrease pain, To increase ROM, To improve nutrient delivery to tissue, To improve muscle performance and motor function, To increase tolerance to activity/condition/position Manual Therapy Techniques to Include: Passive ROM, Soft tissue mobilization For the Purpose of:: To decrease pain, To increase ROM, To improve nutrient delivery to tissue Thermo therapy (hot pack): Yes For the Purpose of:: To improve nutrient delivery to tissue Thank you for the opportunity to evaluate your patient. For Medicare and Medicare HMO plans, please review the plan of care and approve it. It will need to be FAXED BACK to us at [phone] for Medicare purposes. For Medicare only, by signing this I certify the plan of care. Please let me know if there are questions or concerns regarding this plan of care. Physician Signature: Date:__ <Electronically signed by Manohar Hodges DPT, OCS, CSCS> 03/18/22 1439 CC: Dr. Cole Grover DO EBG Signed Cole Grover DO Work Phone: Start: 03-16-2022 End: 03-16-2022 Procedure Note: See Note; NOTES: [facility] [address] [place] [address] Echo Complete 03/16/22 1408 MR#: [id number] Acct: [id number] Name: BREANNA PURCELL Rep #: [id number] : 1940 81 From: Raul Acuna MD Attending Dr: Dr. Cole Grover, DO Status: REG CL I Ordering Dr: Cole Grover DO Date: 03/16/22 Location: [facility] Sex: F C Admitted: Reason For Study: ABN STRESS Procedure This was a 2D Doppler, Color Flow transthoracic echocardiogram. Exam performed in department. Left Ventricle Normal LV size. Apical false tendon noted. Left ventricular systolic function is normal. The estimated ejection fraction is 70 %. Stage 2 diastolic dysfunction. No regional wall motion abnormalities noted. Right Ventricle Normal RV size. Normal systolic function. Atria The left atrium is mildly enlarged. The right atrium is mildly enlarged. No doppler evidence for ASD. Mitral Valve There is no mitral annular calcification. Normal mitral valve. Mild (1+) mitral valve insufficiency. Tricuspid Valve Normal tricuspid valve. Trivial tricuspid valve insufficiency. Right ventricular systolic pressure estimated to be 38 mmHg. Aortic Valve Trisinus/trileaflet aortic valve. Normal aortic valve. Trivial aortic valve insufficiency. Pulmonic Valve The pulmonic valve is not well visualized. Great Vessels Normal sized aortic root. Pericardium/Pleural Trivial pericardial effusion. There are no echocardiographic indications of cardiac tamponade. MMode/2D Measurements Calculations LVIDd: 4.1 cm IVSd: 0.68 cm Ao root diam: 3.0 cm LVIDs: 3.0 cm LVPWd: 0.82 cm RVDd: 2.7 cm FS: 25.6 % LAV(MOD-bp): 71.7 ml LVAd ap4: 19.6 cm2 SV(MOD-sp4): 38.6 ml LAV(MOD-bp) Indexed: 44.3 ml/m2 LVLd ap4: 6.2 cm LAV(MOD-sp2): 75.6 ml EDV(MOD-sp4): 50.5 ml LAV(MOD-sp4): 67.4 ml EDV(sp4-el): 52.7 ml LVAs ap4: 8.2 cm2 LVLs ap4: 4.8 cm ESV(MOD-sp4): 11.9 ml ESV(sp4-el): 11.7 ml EF(MOD-sp4): 76.5 % EF(sp4-el): 77.8 % SV(sp4-el): 41.0 ml LA A4 area: 22.2 cm2 LA dimension(2D): 3.1 cm RA A4 area: 17.2 cm2 Time Measurements MV dec time: 0.21 sec Doppler Measurements Calculations MV E max toni: 78.3 cm/sec Lat Peak E' Toni: 7.8 cm/sec Med Peak E' Toni: 8.8 cm/sec MV A max toni: 61.5 cm/sec E/E' lat: 10.1 E/E' med: 8.9 MV E/A: 1.3 MV V2 max: 98.6 cm/sec Ao V2 max: 153.8 cm/sec MV max P.9 mmHg MV dec slope: 382.9 cm/sec2 Ao max P.5 mmHg MV V2 mean: 53.2 cm/sec Ao V2 mean: 103.1 cm/sec MV mean P.4 mmHg Ao mean P.9 mmHg MV V2 VTI: 31.0 cm Ao V2 VTI: 37.3 cm AV (velocity ratio): 0.81 LV V1 max: 124.5 cm/sec PA V2 max: 82.6 cm/sec TR max toni: 297.5 cm/sec LV V1 max P.2 mmHg PA V2 mean: 57.6 cm/sec TR max P.4 mmHg LV V1 mean P.4 mmHg LV V1 mean: 87.6 cm/sec LV V1 VTI: 30.0 cm ECHO/Echo Complete Interpretation Summary Left ventricular systolic function is normal. The estimated ejection fraction is 70 %. Apical false tendon noted. The left atrium is mildly enlarged. The right atrium is mildly enlarged. Mild (1+) mitral valve insufficiency. Trivial tricuspid valve insufficiency. Trivial aortic valve insufficiency. Trivial pericardial effusion. There are no echocardiographic indications of cardiac tamponade. Right ventricular systolic pressure estimated to be 38 mmHg. Stage 2 diastolic dysfunction. Ordering Physician: Cole Grover Referring Physician: Cole Grover D.O. Performed By: Julianne Moran RCS 03/16/221626 Date __ Raul Acuna MD CC: Dr. Cole Grover DO Date Dictated: 03/16/22 1408 Date Transcribed: 03/16/221626 School Librarian: Signed Cole Grover DO Work Phone: Start: 02-14-2022 End: 02-14-2022 Procedure Note: See Note; NOTES: [facility] [address] [place] [address] MR#: [id number] Acct: [id number] Name: BINHBREANNAAGUSTINA BOOGIE Rep #: [id number] : 1940 81 From: Kevin Rose MD Primary Care: Dr. Cole Grover, DO Status: R EG CLI Referring Dr: Sex: F C Stress Test Report Exercise myocardial perfusion stress test. 81-year-old lady with a history of chest pain Stress protocol: Resting EKG demonstrates sinus bradycardia with a rate of 57 bpm bpm resting blood pressure is 102/62 mmHg. The patient exercised according to the regular Wally protocol for a total duration of 6 minutes attaining a maximum heart rate of 133 bpm which was 95% of max impacted heart rate the maximum workload was 7 metabolic equivalents. At rest there were no ST or T wave changes noted suggest ischemia and at peak exercise upsloping ST changes only were noted we did not meet the criteria for ischemia. No clinical angina was noted the test was terminated due to the target heart rate being achieved. The peak blood pressure was 150/70 mmHg. Rate-pressure product was 17,300. Myocardial perfusion protocol. 11.2 mCi of technetium 99m sestamibi was injected at rest. The patient exercised according to regular Wally protocol for total duration of 6 minutes and at peak exercise 36 mCi of technetium 99m sestamibi was injected stress images were obtained stress and rest images were reconstructed in comparing the short axis vertical long and horizontal long axis. Gated images were also obtained. Perfusion SPECT analysis: Review of the stress images demonstrate normal uptake of tracer noted in all areas of the myocardium. The resting images similarly demonstrate normal uptake of tracer noted in all areas of the myocardium. No areas of reversibility are noted to suggest ischemia no previous infarct was noted. A small apical defect was noted and an infarct cannot be completely excluded. Gated SPECT analysis: The gated ejection fraction is 84%. Conclusion: Normal exercise myocardial perfusion stress test at a moderate workload. Preserved ejection fraction. 02/14/22941 <Electronically signed by Kevin Rose MD> Date __ Kevin Rose MD CC: Dr. Cole Grover DO Date Dictated: 02/14/22938 Date Transcribed: 02/14/22938 School Librarian: [place] Signed Cole Grover DO Work Phone: Start: 02-14-2022 Radionuclide imaging of perfusion of myocardium under exercise stress Dr. Cole Grover Work Phone: Start: 01-13-2022 X-ray of lumbosacral spine Dr. Cole Grover Work Phone: Start: 01-13-2022 End: 01-13-2022 Procedure Note: See Note; NOTES: [facility] [address] [place] [address] L/S Spine Min 4 Views MR#: [id number] Acct: [id number] Name: BREANNA PURCELL Rep #: [id number] : 1940 F 81 From: Spencer Mckeon PCP: Dr. Cole Grover DO Status: DEP AMB Study: L/S Spine Min 4 Views Date of Exam: 01/13/22 Exam# [id number] Ordering Dr: Cole Grover DO STUDY: X-RAY - LUMBAR SPINE REASON FOR EXAM: Female, 81 years old. having bilateral hip pain and back pain -- having bilateral hip pain and back pain TECHNIQUE: XR Spine Lumbar Min 4 Views COMPARISON: None __ FINDINGS: Normal lumbar lordosis. There is no substantial scoliosis. There is a normal alignment of the vertebrae. There is multilevel endplate spondylosis of the lumbar vertebrae. There is multi-level degenerative disc disease with multi-level disc space narrowing. There are atherosclerotic vascular calcifications. The soft tissue structures are unremarkable. __ RAD/L/S Spine Min 4 Views IMPRESSION: Degenerative changes of the spine, as detailed above. Electronically Signed: Spencer Hawley MD at 16:51 EST Reading Location ID and State: [facility] / [place] , Service support , CC: Dr. Cole Grover DO School Librarian: Signed Cole Grover DO Work Phone: Start: 01-13-2022 Plain x-ray of pelvis and lower extremity Dr. Cole Grover Work Phone: Start: 01-13-2022 End: 01-13-2022 Procedure Note: See Note; NOTES: [facility] [address] [place] [address] Hips B/L min 2 views w/ Pelvis MR#: [id number] Acct: [id number] Name: BINHBREANNAAGUSTINA BOOGIE Rep #: [id number] : 1940 F 81 From: Spencer Mckeon PCP: Dr. Cole Grover DO Status: DEP AMB Study: Hips B/L min 2 views w/ Pelvis Date of Exam: 03/15/21 Exam# [id number] Ordering Dr: Cole Grover DO STUDY: X-RAY - PELVIS AND BILATERAL HIP REASON FOR EXAM: Female, 81 years old. having bilateral hip pain -- bilateral with weight baring TECHNIQUE: XR Hips Bilateral with Pelvis when performed; 2 Views COMPARISON: None. __ FINDINGS: There is a non-specific bowel gas pattern. Normal visualized soft tissue structures. There are multiple calcified phleboliths. There are degenerative changes of the lumbar spine. Normal bilateral iliac wings, sacroiliac joints and visualized sacrum. Normal bilateral superior and inferior pubic rami. Normal pubic symphysis. Normal bilateral ischial tuberosities. Normal visualized femoral head. Normal acetabulum. Normal hip joint. __ RAD/Hips B/L min 2 views w/ Pelvis IMPRESSION: No acute findings. Electronically Signed: Spencer Hawley MD at 16:51 EST Reading Location ID and State: [facility] / [place] , Service support , CC: Dr. Cole Grover DO School Librarian: Signed Cole Grover DO Work Phone: Start: 10-08-2021 Screening mammography Start: 10-08-2021 End: 10-11-2021 Comments: See Note; NOTES: [facility] Imaging Services [address] [place] [address] SCRN MAMM (CAD)W/CHARLOTTE BILAT MR#: [id number] Acct: [id number] Name: BREANNA PURCELL Rep #: [id number] : 1940 F 81 From: Graham nix MD PCP: Dr. Cole Grover DO Status: REG CLI Study: SCRN MAMM (CAD)W/CHARLOTTE BILAT Date of Exam: 07/25 Exam# [id number] Ordering Dr: Cole Grover DO MAMMOGRAPHY - BILATERAL SCREENING REASON FOR EXAM: Female, 81 years old. Routine annual screening examination. PERTINENT HISTORY: Mother with breast cancer. TECHNIQUE: Digital bilateral breast charlotte (3D mammographic acquisition) in the CC and MLO projections. 2-D mediolateral oblique (MLO) and craniocaudad (CC) views of both breasts were obtained. CAD: Full Field Digital Mammography with Computer Added Detection was performed. COMPARISON: Comparison is made with prior study dated 09/02/2020 and 09/02/2019. __ FINDINGS: Breast Composition: The breasts are heterogeneously dense, which may obscure small masses. There are no dominant masses or suspicious calcifications. No other significant abnormalities are identified. There has been no significant change since the prior study. __ BI/SCRN MAMM (CAD)W/CHARLOTTE BILAT IMPRESSION: Stable bilateral screening mammogram. Yearly follow-up mammogram recommended. (A) __ ASSESSMENT CATEGORY: BIRADS Category 1: Negative. A letter regarding these results will be sent to the patient by the facility within 30 days. Approximately 10% of breast cancers are not detected by mammography. A normal mammogram should not delay biopsy of a clinically suspicious abnormality. [id number] Electronically Signed: Graham Rivera MD at 10:22 EDT , CC: Dr. Cole Grover DO School Librarian: Signed Cole Grover DO Work Phone: Start: 04-06-2021 End: 04-06-2021 Cataract surgery Reina Estrada CMA Start: 09-02-2020 End: 09-02-2020 Comments: See Note; NOTES: [facility] Imaging Services [address] [place] [address] SCRN MAMM (CAD)W/CHARLOTTE BILAT MR#: [id number] Acct: [id number] Name: BREANNA PURCELL Rep #: [id number] : 1940 F 80 From: Graham nix MD PCP: Dr. Cole Grover DO Status: REG CLI Study: SCRN MAMM (CAD)W/CHARLOTTE BILAT Date of Exam: 08/06 Exam# [id number] Ordering Dr: Cole Grover DO MAMMOGRAPHY - BILATERAL SCREENING REASON FOR EXAM: Female, 80 years old. Routine annual screening examination. PERTINENT HISTORY: Mother with breast cancer. Uncle with breast cancer. TECHNIQUE: Digital bilateral breast charlotte (3D mammographic acquisition) in the CC and MLO projections. 2-D mediolateral oblique (MLO) and craniocaudad (CC) views of both breasts were obtained. CAD: Full Field Digital Mammography with Computer Added Detection was performed. COMPARISON: Comparison is made with prior study dated 09/02/2019 and 08/29/2018. __ FINDINGS: Breast Composition: The breasts are heterogeneously dense, which may obscure small masses. There are no dominant masses or suspicious calcifications. No other significant abnormalities are identified. There has been no significant change since the prior study. __ BI/SCRN MAMM (CAD)W/CHARLOTTE BILAT IMPRESSION: Stable bilateral screening mammogram. Yearly follow-up mammogram recommended. (A) __ ASSESSMENT CATEGORY: BIRADS Category 1: Negative. A letter regarding these results will be sent to the patient by the facility within 30 days. Approximately 10% of breast cancers are not detected by mammography. A normal mammogram should not delay biopsy of a clinically suspicious abnormality. [id number] Electronically Signed: Graham Rivrea MD at 12:44 EDT , Service support , CC: Dr. Cole Grover DO School Librarian: Signed Cole Grover DO Work Phone: Start: 04-29-2020 End: 04-29-2020 Shoulder min 2 Views Comments: See Note; NOTES: [facility] [address] [place] [address] Shoulder min 2 Views MR#: [id number] Acct: [id number] Name: BREANNA PRUCELL Rep #: [id number] : 1940 F 79 From: Arsi garcia MD PCP: Dr. Cole Grover DO Status: DEP AMB Study: Shoulder min 2 Views Date of Exam: 04/29/20 Exam# [id number] Ordering Dr: Cole Grover DO STUDY: X-RAY - LEFT SHOULDER REASON FOR EXAM: Female, 79 years old. LEFT SHOULDER PAIN, DIFFICULTY RAISING ABOVE HEAD AND ROTATING EXTERNALLY TECHNIQUE: 4 view(s) of the shoulder. COMPARISON: Chest x-ray dated March 23, 2020 __ FINDINGS: Normal glenohumeral articulation. Normal acromioclavicular joint. Normal acromion. Mild demineralization or intraosseous cyst seen in superior aspect of the glenoid. Normal humeral head and visualized proximal humerus. The soft tissue structures are unremarkable. There is no demonstrated fracture. Normal visualized pulmonary apex. __ RAD/Shoulder min 2 Views IMPRESSION: Mild demineralization or intraosseous cyst seen in superior aspect of the glenoid. Electronically Signed: Aris Huerta MD at 21:13 EST , Service support , CC: Dr. Cole Grover DO School Librarian: Signed Cole Grover DO Work Phone: Start: 04-21-2020 End: 04-21-2020 Dexa Bone Density Study Comments: See Note; NOTES: [facility] Imaging Services [address] [place] [address] Dexa Bone Density Study MR#: [id number] Acct: [id number] Name: BREANNA PURCELL Rep #: [id number] : 1940 F 79 From: Graham nix MD PCP: Dr. Cole Grover DO Status: REG CLI Study: Dexa Bone Density Study Date of Exam: 04/21/20 Exam# [id number] Ordering Dr: Cole Grover DO STUDY: DUAL ENERGY X-RAY ABSORPTIOMETRY / DXA REASON FOR EXAM: Female, 79 years old. Age of courtney 53. Pat is 118.3# and 63.25 and quot; a loss of 1.5 and quot; per pat. Takes 500mg of calcium and a multi-vit. Past hx of taking Fosomax, and has now been on Prolia for @ 5 yrs with about 10 injections total. Has a fam hx of osteo. Exercises moderatly. TECHNIQUE: Bone Mineral Density (BMD) measurements of lumbar spine and bilateral hips were obtained. COMPARISON: Comparison is made with prior examination dated 04/17/2018. __ FINDINGS: Lumbar Spine (L1-L4): g/cm2 (0.837) / T-score (-2.7) / Z-score (0.9) Findings are suggestive of osteoporosis with a high fracture risk. Left Femur Total: g/cm2 (0.878) / T-score (-1.0) / Z-score (0.9) Left Femoral Neck: g/cm2 (0.869) / T-score (-1.2) / Z-score (0.9) Right Femur Total: g/cm2 (0.846) / T-score (-1.3) / Z-score (0.6) Right Femoral Neck: g/cm2 (0.804) / T-score (-1.7) / Z-score (0.4) The T-Scores on the most recent prior examination were: Lumbar Spine (L1-L4): There has been improvement of bone density since the previous examination. Left Femur Total: which represents an improvement of 6.3%. Right Femur Total: which represents an improvement of 0.8%. __ BD/Dexa Bone Density Study IMPRESSION: The patient is considered osteoporotic as outlined below according to World Trino Organization (WHO) criteria with a high fracture risk. There has been improvement of bone density since the previous examination. __ Reference Information: The T-score is the number of standard deviations above or below the standard which is normal for young adults at their peak bone mineral density. The World Health Organization (WHO) interprets the T-scores as follows: Above -1 Normal bone density Between -1 and -2.5 Osteopenia Equal to / or below -2.5 Osteoporosis As a practical clinical guideline, osteopenia may be graded as follows: Mild -1 through -1.5 Moderate -1.6 through -2.0 Severe -2.1 through -2.4 The Z-score is the number of standard deviations above or below age-matched controls. A Z-score of less than -1.5 would be considered abnormal. References: 1. NIH Osteoporosis and Related Bone Diseases www osteo.org 2. International Society for Clinical Densitometry www iscd.org 3. National Osteoporosis Foundation www nof.org Electronically Signed: Graham Rivera MD at 13:52 EST , Service support , CC: Dr. Cole Grover DO School Librarian: Signed Cole Grover Work Phone: Start: 03-23-2020 End: 03-24-2020 Chest PA and Lateral Comments: See Note; NOTES: [facility] Imaging Services [address] [place] [address] Chest PA and Lateral MR#: [id number] Acct: [id number] Name: BREANNA PURCELL Rep #: [id number] : 1940 F 79 From: Nadja lara MD PCP: Dr. Cole Grover DO Status: REG CLI Study: Chest PA and Lateral Date of Exam: 03/23/20 Exam# [id number] Ordering Dr: Cole Grover DO HISTORY: PT WAS IN THE HOSPITAL FOR BILATERAL PLEURAL EFFUSION. CHEST XRAY FOR FOLLOW UP. ADDITIONAL HISTORY: None provided. COMPARISON: 03/19/2019. CT abdomen and pelvis 03/16/2020. EXAMINATION/TECHNIQUE: XR Chest 2 Views Number of images including paperwork: 2 FINDINGS: LUNGS AND PLEURA: No consolidation, mass or pleural effusion. CARDIAC SILHOUETTE: Unremarkable. MEDIASTINUM AND VASU: Aortic tortuosity. UPPER ABDOMEN: Unremarkable. SKELETON AND SOFT TISSUES: No acute findings. Degenerative changes. OTHER DEVICES AND HARDWARE: None. RAD/Chest PA and Lateral IMPRESSION: No acute cardiopulmonary abnormality. Resolution of bilateral pleural effusions. at 0148 Reported and signed by: Nadja Estevez MD Electronically Signed: Nadja Estevez MD at 1:47 EST Tel , Service support , CC: Dr. Cole Grover DO School Librarian: Signed Cole Grover Work Phone: Start: 03-12-2020 End: 03-12-2020 Surgery Visit Report Comments: See Note; NOTES: [facility] [address] [place] [address] OFFICE VISIT Date of Service: 03/12/20 MR#: [id number] Acct: [id number] Name: BREANNA PURCELL Rep #: [id number] : 1940 Provider: Dr. Jason chiang MD Age/Sex: 79/F Location: [facility] Status: Signed Intake Intake Visit Reasons: Upper/Lower Scope Abdominal Pain Allergies No Known Allergies Allergy (Verified 03/12/20 13:40) [facility] Medical History (Updated 03/12/20 @ 13:[address] Jason Madrigal MD) Enterocolitis (Acute) Dehydration (Acute) Tachycardia (Acute) Diarrhea (Acute) Abdominal pain (Acute) Atherosclerosis (Acute) Cardiac arrhythmia (Acute) Osteoarthritis (Acute) Small vessel disease, cerebrovascular (Acute) Syncope (Acute) Surgical History (Updated 03/12/20 @ 13:38 by Dorothea Nixon) History of colonoscopy (Acute) History of esophagogastroduodenoscopy (EGD) (Acute) History of right inguinal hernia repair (Acute) Family History (Updated 03/12/20 @ 13:39 by Dorothea Nixon) Mother Colon cancer Breast cancer Hypertension Father Colon cancer Social History (Updated 03/12/20 @ 14:[address] Jason Madrigal MD) Smoking Status: Never smoker HPI HPI HPI: BREANNA PURCELL, is a 79 F who presents to the office today for surgical consultation regarding abdominal pain and diarrhea and abnormal CT imaging. The patient is referred by Dr. Cole Grover and a written copy my surgical consult and recommendations will be returned to her. 79-year-old female. She had acute onset of abdominal pain on March 09. She presented to the emergency room. A noncontrasted CT scan of the abdomen was obtained. This was nondiagnostic however there was a question eric as to whether contrast should be administered. Therefore yesterday Dr. Cole Grover obtained a contrasted CT. That suggests thickening of the gastric chicas thickening of loops of small bowel thickening of colonic wall. Clinical correlation was felt to be indicated. Recommendation for possible upper and lower endoscopy. It is of note that on March 09, 2020 her white blood cell count was 11.8 with a hemoglobin 14.1 hematocrit 40.8 platelet count 188,000. 84% neutrophils. 8% lymphocytes. BUN was 24 and creatinine was 0.9. Lactic acid level was 1.8. Total bilirubin was 1.1. AST 23. ALT 26. Alkaline phosphatase 64. Lipase 58. A definitive diagnosis was not provided. She was discharged on dicyclomine and Zofran. The patient did not take the Zofran because although she was nauseated instructions said to take with food. She has had intractable diarrhea that started on Monday. She has essentially had nothing to eat yesterday nor today. Minimal sips of water. Laboratory on March 09, 2020 would suggest dehydration. On clinical evaluation today that would appear to have deepened. March 14, [address] Sami Tejeda she had a colonoscopy because of generalized abdominal pain. The entire exam was normal. On November 17, 2011 she had a upper GI endoscopy. That was because of an abnormal CT scan suggesting abnormal biliary imaging. That examination states that the ampulla was well visualized and that there was no pancreatic mass. No stones or sludge. The patient did have a few benign fundic gland polyps. [facility] Imaging Services [address] [place] [address] Abdomen/Pel W ORAL Cont Only MR#: [id number]:[id number] Name: BREANNA PURCELL #:[id number] : 1940F 79 From: Noah Porras MD PCP:Dr. Cole Grover, DO Status:REG CLI Study:Abdomen/Pel W ORAL Cont Only Date of Exam:03/10/20 Exam#[id number] Ordering Dr: Cole Grover DO STUDY: CT ABDOMEN AND PELVIS WITHOUT CONTRAST REASON FOR EXAM: Female, 79 years old. Abdominal PAIN-RLQ. RADIATION DOSAGE (If Supplied By Facility): CTDIvol = ( 6.11 ) mGy, DLP = ( 274.70 ) mGycm TECHNIQUE: Transaxial images were obtained from the dome of the diaphragm to the symphysis pubis without oral contrast, and without intravenous contrast. Sagittal and coronal images were reconstructed. Individualized dose optimization techniques were used for this CT. COMPARISON: 03/09/2020. __ FINDINGS: Oral contrast was given and shows that there are no dilated loops of bowel or evidence for obstruction. There is suggestion of stomach wall thickening which can be further evaluated with endoscopy. Loops of bowel in the pelvis also suggest wall thickening. There is probable thickening of the cecum and terminal ileum. Findings suggest nonspecific enterocolitis. Normal appendix. No other changes or findings since yesterday''s study. No gross acute abnormality seen of the liver, gallbladder, pancreas, spleen or kidneys. CT/Abdomen/Pel W ORAL Cont Only IMPRESSION: After the administration of oral contrast, there is strong suggestion of stomach wall thickening along with numerous loops of thickened small bowel and large bowel. Correlate clinically and consider upper endoscopy and colonoscopy. Electronically Signed: Noah Porras MD at 18:23 EST , Service support , HPI HPI HPI: BREANNA PURCELL, is a 79 F who presents to the office today for Exam Const General: cooperative, frail appearing, ill appearing Nutritional Appearance: underweight Orientation: alert, awake, oriented x3 HENMT Head: normal to inspection Eyes General: appearance normal, both eyes and all related structures Neck Other: Supple, atrophic Resp Effort Inspection: normal respiratory effort Auscultation: clear to auscultation bilaterally Cardio Other: Tachycardia noted, irregular heartbeat GI Other: Infrequent bowel sounds, soft, mild tenderness palpation right mid abdomen lower quadrant, fullness noted. Not a distinct mass. No rebound or guarding. No obvious inguinal defect. No gross hepatosplenomegaly Musc Cervical Spine: normal cervical lordosis Skin General: no rashes or lesions noted Neuro Cognition: normal cognition Extrem General: no calf tenderness Psych Affect: normal affect Assessment Plan Problems 1. Generalized abdominal pain R10.84 2. Diarrhea, unspecified type R19.7 3. Tachycardia R00.0 4. Dehydration E86.0 5. Enterocolitis K52.9 Plan I have had an opportunity discussed this patient's care with . At this point I believe that the patient is very frail and requires hospitalization. My initial diagnosis is enterocolitis, possible foodborne illness possible viral. I believe that she is likely significantly dehydrated. She is tachycardic. She cannot tolerate an urgent upper or lower endoscopy at this moment. I believe that she needs to be fluid resuscitated. Secondarily stool needs to be obtained for routine culture sensitivity C. difficile analysis. She likely should be tested for COVID-19. Pending her progress and ongoing evaluation I could consider performing combined upper and lower endoscopy on March 16. I will follow with you. I very much appreciate hospitalist assistance with admission. As the patient is being admitted I have will utilize this as my admission consultation I will continue to follow her throughout her stay. Copy: Dr. Cole Madrigal M.D., F.A.C.S. Orders Orders: Colonoscopy Today EGD Today Coding Level of Care Code Attention Engine Repairer Service Diagnoses Generalized abdominal pain R10.84 ?Abdominal location: generalized Diarrhea, unspecified type R19.7 ?Diarrhea type: unspecified type Tachycardia R00.0 Dehydration E86.0 Enterocolitis K52.9 Comment Admission consult to be submitted 03/12/20 1401 <Electronically signed by Jason Madrigal MD> Date __ Jason Madrigal MD Cosigner Signature: Date __ (if applicable) CC: Dr. Cole Grover, DO Cole Grover Start: 03-10-2020 End: 03-13-2020 Abdomen/Pel W ORAL Cont Only Comments: See Note; NOTES: [facility] Imaging Services [address] [place] [address] Abdomen/Pel W ORAL Cont Only MR#: [id number] Acct: [id number] Name: BREANNA PURCELL Rep #: [id number] : 1940 F 79 From: Noah bledsoe MD PCP: Dr. Cole Grover DO Status: REG CLI Study: Abdomen/Pel W ORAL Cont Only Date of Exam: 07/24 Exam# [id number] Ordering Dr: Cole Grover DO STUDY: CT ABDOMEN AND PELVIS WITHOUT CONTRAST REASON FOR EXAM: Female, 79 years old. Abdominal PAIN-RLQ. RADIATION DOSAGE (If Supplied By Facility): CTDIvol = ( 6.11 ) mGy, DLP = ( 274.70 ) mGycm TECHNIQUE: Transaxial images were obtained from the dome of the diaphragm to the symphysis pubis without oral contrast, and without intravenous contrast. Sagittal and coronal images were reconstructed. Individualized dose optimization techniques were used for this CT. COMPARISON: 03/09/2020. __ FINDINGS: Oral contrast was given and shows that there are no dilated loops of bowel or evidence for obstruction. There is suggestion of stomach wall thickening which can be further evaluated with endoscopy. Loops of bowel in the pelvis also suggest wall thickening. There is probable thickening of the cecum and terminal ileum. Findings suggest nonspecific enterocolitis. Normal appendix. No other changes or findings since yesterday''s study. No gross acute abnormality seen of the liver, gallbladder, pancreas, spleen or kidneys. CT/Abdomen/Pel W ORAL Cont Only IMPRESSION: After the administration of oral contrast, there is strong suggestion of stomach wall thickening along with numerous loops of thickened small bowel and large bowel. Correlate clinically and consider upper endoscopy and colonoscopy. Electronically Signed: Noah Porras MD at 18:23 EST , Service support , CC: Dr. Cole Grover DO School Librarian: Signed Cole Grover Work Phone: Start: 03-09-2020 End: 03-09-2020 Emergency Department Summary Comments: See Note; NOTES: [facility] Medical Records Department [address] [place] [address] Emergency Department Summary 03/09/20 MR#: [id number] Acct: [id number] Name: BREANNA PURCELL Rep #: [id number] : 1940 79 From: Ac Gill MD PCP: Dr. Cole Grover DO Status:DEP ER History of Present Illness Chief Complaint: Abd Pain Informant: Patient Onset: Today Context: Gradual Onset Timing: Continuous Current Severity: Moderate Maximum Severity: Moderate Narrative: The patient is a 79-year-old female who is otherwise very healthy who presents to the emergency department with abdominal pain. Patient states she woke this morning with some lower abdominal pain. She describes it as mild cramping in nature. She states that she has had diminished appetite. She denies any fevers or chills. She went to her primary care. She states they did a urine there which was unremarkable. On examination, she was tender in the right lower quadrant. She was sent over for further evaluation. Patient states that she is never felt like this before. She has no history of prior abdominal surgery. She denies difficulty moving her bowels. She states she is otherwise been in her normal state of health. Prior similar symptoms: No Recent Illness/Hospitalization: No Past Medical History - Allergies and Home Meds Allergies/Adverse Reactions: Allergies No Known Allergies Allergy (Verified 03/09/20 17:32) Primary Care Physician: Cole Grover DO [Primary Care Provider] - Prior records reviewed: Yes Past Medical History: - - Atherosclerosis, osteoporosis, migraine Surgical History: noncontributory Smoking Status: Never smoker Review of Systems General: Denies: Chills, Fever, Sweats Eyes: Denies: Visual changes - bilaterally, Diplopia ENT: Denies: Rhinorrhea, Sore throat Cardiovascular: Denies: Chest pain, Palpitations Respiratory: Denies: Dyspnea, Cough, Dyspnea on exertion Gastrointestinal: Reports: Abdominal pain, Nausea. Denies: Vomiting, Diarrhea, Melena, Hematochezia Genitourinary: Denies: Dysuria, Hematuria, Frequency Musculoskeletal: Denies: Back pain, Extremity Pain Skin: Denies: Rash, Wounds Neurological: Denies: Headache, Weakness, Numbness Physical Exam Vital Signs/Narrative: Vital Signs Temp Pulse Resp BP Pulse Ox 03/09/20 17:32 97 F L 77 16 147/82 H 99 Inital Vital Signs reviewed: Yes General: Well nourished, Well developed, No Acute Distress Head: Normocephalic, Atraumatic Eyes: Perrl, EOMI ENT: Moist mucous membranes, No rhinorrhea Neck: Supple, Nontender Cardiovascular: Regular rate, Regular rhythm, No murmurs Respiratory: No distress, CTA bilaterally, Chest nontender Abdomen: Soft, Nondistended, Normal bowel sounds, Tender. Negative for: Guarding, Rebound tenderness Back: Nontender, Normal Inspection Extremities: Nontender, No edema Skin: Normal color, No rash Neurological: Alert, Oriented x3, Cranial nerves II-XII grossly intact, Normal Strength, Normal Sensation Psychological: Normal affect, Normal Mood Diagnostic/Tx/Re-eval Clinical Impression(s) from Imaging Studies Abdomen/Pelvis CT 03/09/20 17:37 IMPRESSION: No definite acute abnormalities, but the evaluation of the GI tract is limited by the absence of oral contrast and neither enteritis nor colitis can be excluded. Electronically Signed: Noah Porras MD at 19:21 EST , Service support , Abnormal Lab Results 03/09/20 03/09/20 03/09/20 17:50 17:50 17:50 WBC 11.8 H RBC 4.33 Hgb 14.1 Hct 40.8 MCV 94.2 MCH 32.6 H MCHC 34.6 RDW Std Deviation 44.8 H RDW Coeff of Thee 13.2 Plt Count 188 MPV 9.8 Immature Gran % (Auto) 0.500 Neut % (Auto) 84.1 H Lymph % (Auto) 8.1 L Greeley % (Auto) 6.7 Eos % (Auto) 0.2 Baso % (Auto) 0.4 Absolute Neuts (auto) 10.0 H Absolute Lymphs (auto) 0.96 Nucleated RBC % 0 Sodium 137 Potassium 4.1 Chloride 103 Carbon Dioxide 27.0 Anion Gap 7 BUN 24 H Creatinine 0.90 Estim Creat Clear Calc 44.49 Est GFR (MDRD) Af Amer 78 Est GFR (MDRD) Non-Af 64 BUN/Creatinine Ratio 26.6 H Glucose 106 Lactic Acid 1.8 Calcium 9.1 Total Bilirubin 1.10 H AST 23 ALT 26 Alkaline Phosphatase 64 Total Protein 7.8 Albumin 4.0 Globulin 3.8 Albumin/Globulin Ratio 1.1 Lipase 58 L - Medical Decision Making The patient presents from her doctor's office for lower abdominal pain. She has no history of prior abdominal surgery. She did have a urine in the office which was negative. Metabolic work-up was pursued. She does have a mild leukocytosis. Otherwise her labs are unremarkable. Lactic is negative. Patient underwent CT of the abdomen pelvis with IV contrast. Her appendix is identified and is normal. There is no other acute abnormalities that are found with the limits of the contrasted exam. On reevaluation, the patient still has some mild pain. She is given analgesics and antiemetics. After 30 minutes, she had resolution of her symptoms. She is drinking without issue. She wants to attempt outpatient therapy and I feel this is reasonable. I did corrections counselor her that if her symptoms worsen in any way, she has a fever, or anything changes to return. She is comfortable with this plan of care. Impression 1. Right lower quadrant pain ED Disposition - Plan for ED Patient: Instructions: ED Abdominal Pain Unkn Cause Fem Prescriptions: Dicyclomine HCl [Bentyl] 20 mg PO TIDAC #20 cap Prescription Printed Ondansetron [Zofran Odt] 4 mg PO Q8H PRN PRN #10 tab PRN Reason: Nausea Prescription Printed Referrals: Cole Grover DO [Primary Care Provider] - What to do if you have Problems For any increased pain, shortness of breath, bleeding, nausea or vomiting, chest pain, or any unexpected problems, contact your Primary Care Provider. Call [facility] ([phone]) or report to the closest Emergency Room. Call 911 if necessary. 03/09/20 2953 <Electronically signed by Ac Gill MD> Date __ Ac Gill MD Cosigner Signature (If Indicated): Date CC: DO Cole Gonzalez Start: 03-09-2020 End: 03-09-2020 Abdomen/Pelvis W IV Cont ONLY Comments: See Note; NOTES: [facility] Imaging Services [address] [place] [address] Abdomen/Pelvis W IV Cont ONLY MR#: [id number] Acct: [id number] Name: BREANNA PURCELL Rep #: [id number] : 1940 F 79 From: Noah bledsoe MD PCP: Dr. Cole Grover, DO Status: PRE ER Study: Abdomen/Pelvis W IV Cont ONLY Date of Exam: Exam# [id number] Ordering Dr: Ac Gill MD STUDY: CT ABDOMEN AND PELVIS WITH CONTRAST REASON FOR EXAM: Female, 79 years old. RLQ PAIN THAT EXTENDS OVER TO LEFT RADIATION DOSAGE (If Supplied By Facility): CTDIvol = ( 5.26 ) mGy, DLP = ( 345.89 ) mGycm TECHNIQUE: Transaxial images were obtained from the dome of the diaphragm to the symphysis pubis without oral contrast. IV 75mL Isovue-370 was administered. Sagittal and coronal images were reconstructed. Individualized dose optimization techniques were used for this CT. COMPARISON: 09/17/2011. __ FINDINGS: The visualized lung bases are unremarkable. The visualized portions of the heart are within normal limits. Normal liver incidental 1.4 cm stable probable cyst of the posterior segment of the right lobe.. Normal gallbladder and extrahepatic biliary system. Normal spleen. Normal pancreas. Normal bilateral adrenal glands. Normal right kidney. Normal left kidney. Evaluation of the GI tract is limited by absence of oral contrast. Cannot exclude stomach wall thickening. No dilated loops of bowel or evidence for obstruction. Cannot exclude segmental thickening of the chicas of the small or large bowel. Cannot exclude enteritis or colitis. Moderate diffuse fecal retention. Appendix within normal limits. Normal abdominal aorta. Normal inferior vena cava. Normal retroperitoneum. Cannot exclude thickening of the wall of the bladder which is not completely distended. Normal uterus for age. Normal abdominal wall. Normal osseous structures. __ CT/Abdomen/Pelvis W IV Cont ONLY IMPRESSION: No definite acute abnormalities, but the evaluation of the GI tract is limited by the absence of oral contrast and neither enteritis nor colitis can be excluded. Electronically Signed: Noah Porras MD at 19:21 EST , Service support , CC: Dr. Cole Grover DO; Dr. Ac Gill MD School Librarian: Signed Cole Grover Start: 09-02-2019 End: 09-03-2019 SCREEN MAMM (CAD) W/CHARLOTTE BILAT Comments: See Note; NOTES: [facility] Imaging Services [address] [place] [address] SCREEN MAMM (CAD) W/CHARLOTTE BILAT MR#: [id number] Acct: [id number] Name: BREANNA PURCELL Rep #: [id number] : 1940 F 79 From: Graham nix MD PCP: Dr. Cole Grover DO Status: PRE CLI Study: SCREEN MAMM (CAD) W/CHARLOTTE BILAT Date of Exam: 0 09/02/19 Exam# [id number] Ordering Dr: Cole Grover DO MAMMOGRAPHY - BILATERAL SCREENING REASON FOR EXAM: Female, 79 years old. Routine annual screening examination. PERTINENT HISTORY: Mother with breast cancer. TECHNIQUE: Digital bilateral breast charlotte (3D mammographic acquisition) in the CC and MLO projections. 2-D mediolateral oblique (MLO) and craniocaudad (CC) views of both breasts were obtained. CAD: Full Field Digital Mammography with Computer Added Detection was performed. COMPARISON: Comparison is made with prior study dated August 29, 2018 and August 24, 2017. __ FINDINGS: Breast Composition: There are scattered areas of fibroglandular density. There are no dominant masses or suspicious calcifications. No other significant abnormalities are identified. There has been no significant change since the prior study. __ BI/SCREEN MAMM (CAD) W/CHARLOTTE BILAT IMPRESSION: Stable bilateral screening mammogram. Yearly follow-up mammogram recommended. (A) __ ASSESSMENT CATEGORY: BIRADS Category 1: Negative. A letter regarding these results will be sent to the patient by the facility within 30 days. Approximately 10% of breast cancers are not detected by mammography. A normal mammogram should not delay biopsy of a clinically suspicious abnormality. [id number] Electronically Signed: Graham Miguel, at 8:56 EDT , Service support , CC: Dr. Cole Grover DO School Librarian: Signed Cole Grover Work Phone: Start: 03-19-2019 End: 03-20-2019 Chest PA and Lateral Comments: See Note; NOTES: [facility] Imaging Services [address] [place] [address] Chest PA and Lateral MR#: [id number] Acct: [id number] Name: BREANNA PURCELL Rep #: [id number] : 1940 F 78 From: Fahad De La Torre MD PCP: Cole Grover DO Status: REG CLI Study: Chest PA and Lateral Date of Exam: 03/19/19 Exam# [id number] Ordering Dr: Cole Grover DO STUDY: X-RAY CHEST REASON FOR EXAM: Female, 78 years old. INCREASED SOB ON EXERTION TECHNIQUE: 2 views COMPARISON: None. __ FINDINGS: The lungs are clear and expanded. There is no demonstrated pleural abnormality. Normal size heart. Normal mediastinum and vasu. Normal visualized pulmonary arteries. Normal visualized aortic arch and descending thoracic aorta. Normal visualized thoracic spine. Normal visualized ribs, clavicles, and shoulders. There is no demonstrated abnormality of the visualized soft tissue structures of the upper abdomen. __ RAD/Chest PA and Lateral IMPRESSION: Normal x-ray examination of the chest. No acute findings in the lungs Electronically Signed: Fahad De La Torre MD at 5:02 EST Tel , Service support , CC: Cole Groevr DO School Librarian: Signed Cole Grover Work Phone: Start: 03-12-2019 End: 03-12-2019 Pulmonary Function Report Comp Comments: See Note; NOTES: [facility] Pulmonary Services/Neurology [address] [place] [address] MR#: [id number] Acct: [id number] Name: BREANNA PURCELL Rep #: [id number] : 1940 78 From: Wally Lerma MD Referring Dr: Cole Grover DO Status: REG [facility] Location: [facility] Date: 03/12/19 Sex: F C COMPLETE PULMONARY FUNCTION TEST INTERPRETATION Brief HPI: Patient is a 78 year old female, currently under the care of Dr. Grover, who presents to [facility] for complete pulmonary function tests secondary to diagnosis of abnormal pulmonary function test. Respiratory therapist reports good effort and reproducible results. Interpretation: Forced expiration spirometry shows no large airways obstructive ventilatory defect with an FEV1 of 93% predicted. There is no significant bronchodilator response by strict ATS criteria. Spirograms are of good quality and plateau normally. The respiratory flow volume loop shows a normal pattern. Lung volumes by body plethysmography show a normal total lung capacity at 4.48 L, 94% predicted. All other lung volumes are within normal limits. Diffusion capacity by carbon monoxide is normal at 105% predicted. The airway resistance is normal. No previous pulmonary function tests were available for review. Impression: This pulmonary function test is within normal limits. 03/12/19 1712 <Electronically signed by Wally Lerma MD> Date __ Wally Lerma MD CC: Wally Lerma MD; Cole Grover DO Date Dictated: 03/12/191654 Date Transcribed: 03/12/191654 School Librarian: PEE Grover Start: 08-29-2018 End: 08-31-2018 SCREEN MAMM (CAD) W/CHARLOTTE BILAT Comments: See Note; NOTES: [facility] Imaging Services [address] [place] [address] SCREEN MAMM (CAD) W/CHARLOTTE BILAT MR#: [id number] Acct: [id number] Name: BREANNA PURCELL Rep #: [id number] : 1940 F 77 From: Valerie Mahmood MD PCP: Cole Grover DO Status: DEP CLI Study: SCREEN MAMM (CAD) W/CHARLOTTE BILAT Date of Exam: 08/29/18 Exam# [id number] Ordering Dr: Cole Grover DO MAMMOGRAPHY - BILATERAL SCREENING 3-D TOMOSYNTHESIS REASON FOR EXAM: Female, 78 years old. Bilateral Screening 3-D tomosynthesis PERTINENT HISTORY: No significant family history. TECHNIQUE: 2-D mammograms and 3-D Tomosynthesis of the breast (s) were performed. CAD was performed. COMPARISON: August 24, 2017, August 21, 2016 FINDINGS: The breast composition is composed of scattered fibroglandular density. Scattered benign calcifications are seen. No dense spiculated masses or suspicious microcalcifications are identified. No architectural distortion is identified. There is no skin thickening or retraction. There has been no significant change since the prior study. BI/SCREEN MAMM (CAD) W/CHARLOTTE BILAT IMPRESSION: No mammographic signs of malignancy. Routine yearly mammograms recommended. ASSESSMENT CATEGORY: BIRADS Category 2: Benign. A letter regarding these results will be sent to the patient by the facility within 30 days. FOLLOW UP RECOMMENDATION: Yearly follow up mammogram recommended. (A) Approximately 10% of breast cancers are not detected by mammography. A normal mammogram should not delay biopsy of a clinically suspicious abnormality. Electronically Signed: Valerie Mahmood MD at 15:50 EDT , Service support , CC: Cole Grover DO School Librarian: Signed Cole Grover Work Phone: Start: 07-10-2018 End: 07-11-2018 Brain W/WO Contrast Comments: See Note; NOTES: [facility] Imaging Services [address] [place] [address] Brain W/WO Contrast MR#: [id number] Acct: [id number] Name: BREANNA PURCELL Rep #: [id number] : 1940 F 77 From: Arin Wagoner MD PCP: Cole Grover DO Status: REG CLI Study: Brain W/WO Contrast Date of Exam: 07/10/18 Exam# [id number] Ordering Dr: Cole Grover DO STUDY: MRI BRAIN WITH AND WITHOUT CONTRAST REASON FOR EXAM: Female, 77 years old. Syncope with episodes of dizziness. TECHNIQUE: Standardized multiplanar fat and water weighted pulse sequences were obtained. 11 ml of IV Dotarem was administered for the contrast portion of the examination. COMPARISON: Prior comparison studies are not available for review at this time. __ FINDINGS: There is mild cerebral atrophy with widening of the extra-axial spaces and ventricular dilatation. There are a limited number of small white matter hyperintensities, distributed throughout the deep white matter tracts of the cerebral hemispheres, consistent with mild chronic white matter ischemic changes. There is no evidence for recent intracranial ischemia or other cause of cytotoxic edema on diffusion weighted imaging (DWI). Normal T2* images of the brain without demonstrated susceptibility artifact. There is no demonstrated hemosiderin stain. Normal bilateral basal ganglia. Normal thalami. There is no extra-axial fluid accumulation. Normal flow voids within the major intracranial circulation suggesting patency by spin echo criteria. Normal venous enhancement. There is no enhancing intra-axial or extra-axial abnormality. Normal sella turcica, pituitary gland, infundibular stalk, optic chiasm and hypothalamus. Normal tectal plate and pineal gland. Normal midbrain, gregg and medulla. Normal cerebellum. There are large basal cisterns. Normal bilateral temporal bones. Normal bilateral internal auditory canals. No demonstrated orbital abnormality, within the constraints of a routine brain study. There is a right-sided maxillary mucous retention cyst. Normal calvarium and skull base. Normal visualized soft tissue structures. Normal visualized upper cervical spine. __ MRI/Brain W/WO Contrast IMPRESSION: 1. Involutional changes of the brain, as described above. 2. No MR evidence for acute infarct. Electronically Signed: Arin Wagoner MD at 9:15 EDT , Service support , CC: Cole Grover DO School Librarian: Signed Cole Grover Work Phone: Start: 07-06-2018 End: 07-06-2018 Stress Report Comments: See Note; NOTES: [facility] Cardiovascular Services [address] [place] [address] MR#: [id number] Acct: [id number] Name: BREANNA PURCELL Rep #: [id number] : 1940 77 From: Raul Acuna MD Primary Care: Cole Grover DO Status: REG CLI Referring Dr: Cole Grover DO Sex: F C Stress Test Report Date: 07-06-18 Procedure: Exercise tolerance test/imaging study Indications: Syncope Consent: Per the patient Procedure: The patient exercised on a Wally protocol for 7 minutes completing Stage II and 1 minute of Stage III achieving a peak heart rate of 173 bpm (95 % predicted maximal heart rate) with a peak blood pressure 142/70 mmHg and a peak MET capacity of 8 METs. The baseline ECG demonstrated normal sinus rhythm. The peak exercise ECG demonstrated no obvious ECG changes. There were rare PACs pretest and rare PVCs during exercise and recovery. The functional capacity was considered good. There was no complaint of chest discomfort during exercise or recovery. The examination was discontinued secondary to dyspnea. Impression: 1. Technically adequate (percent predicted maximal heart rate greater than 85%) exercise tolerance test 2. Peak exercise ECG with no obvious ECG changes 3. There were rare PACs pretest and rare PVCs during exercise and recovery 4. Nuclear images pending Myocardial perfusion imaging study: Technique: The patient was injected with 10.8 mCi of technetium 99m Cardiolite and subsequently rest SPECT Cardiolite nuclear imaging was obtained in the horizontal long, vertical long, and short axis views. The patient exercised on a Wally protocol for 7 minutes completing Stage II and 1 minute of Stage III achieving a peak heart rate of 173 bpm (95 % predicted maximal heart rate) with a peak blood pressure 142/70 mmHg and a peak MET capacity of 8 METs. The patient was injected with 33.5 mCi of technetium 99m Cardiolite and subsequently stress SPECT Cardiolite nuclear imaging was obtained in the horizontal long, vertical long, and short axis views. A gated Cardiolite study at peak stress was obtained. Interpretation: Rest and stress SPECT Cardiolite nuclear imaging status post realignment, normalization, and attenuation correction, demonstrates the appearance of relative uniform tracer uptake and myocardial perfusion appearing within normal limits. There is end systolic thickening and brightening. The gated Cardiolite study demonstrates myocardial thickening and inward wall motion. The reported LVEF is 85 %. Impression: 1. Rest and stress SPECT Cardiolite nuclear imaging demonstrate relative uniform tracer uptake and myocardial perfusion appearing within normal limits. 2. The gated Cardiolite study reports an LVEF of 85 %. This note was generated with [employer] software. It may contain incorrect words, spelling, and punctuation that were not noted in checking the note before signing. 07/06/1838 <Electronically signed by Raul Acuna MD> Date __ Raul Acuna MD CC: Cole Grover DO Date Dictated: 07/06/18933 Date Transcribed: 07/06/18933 School Librarian: PM Signed Cole Grover Start: 06-19-2018 End: 06-19-2018 Echocardiogram Complete Comments: See Note; NOTES: [facility] Cardiovascular Services [address] [place] [address] Echo Complete 06/19/18 1307 MR#: [id number] Acct: [id number] Name: BREANNA PURCELL Rep #: [id number] : 1940 77 From: Raul Acuna MD Attending Dr: Cole Grover DO Status: REG CLI Ordering Dr: Cole Grover DO Date: 06/19/18 [facility]: [facility] Sex: F C Admitted: Reason For Study: Near Syncope Procedure This was a 2D Doppler, Color Flow transthoracic echocardiogram. Exam performed in department. Left Ventricle Normal LV size. Left ventricular systolic function is normal. The estimated ejection fraction is 65 %. Diastolic function is indeterminate. No regional wall motion abnormalities noted. Right Ventricle Normal RV size. Normal systolic function. Atria The left atrium is mildly enlarged. Normal right atrium. No doppler evidence for ASD. Mitral Valve There is no mitral annular calcification. Normal mitral valve. Trivial mitral valve insufficiency. Tricuspid Valve Normal tricuspid valve. Trivial tricuspid valve insufficiency. Right ventricular systolic pressure estimated to be 16 mmHg. Aortic Valve Trisinus/trileaflet aortic valve. Mild focal aortic valve calcification. Pulmonic Valve The pulmonic valve is not well visualized. Great Vessels The aortic root is not well visualized. Pericardium/Pleural No pericardial effusion. MMode/2D Measurements AND Calculations LVIDd: 3.8 cm IVSd: 0.85 cm LA dimension: 2.9 cm LVIDs: 1.9 cm LVPWd: 0.88 cm RVDd: 2.7 cm FS: 50.2 % LAV(MOD-bp): 67.8 ml LA A4 area: 21.4 cm2 RA A4 area: 14.4 cm2 LAV(MOD-bp) Indexed: 42.3 ml/m2 LAV(MOD-sp2): 66.5 ml LAV(MOD-sp4): 66.6 ml Time Measurements MV dec time: 0.25 sec Doppler Measurements AND Calculations MV E max toni: 74.7 cm/sec Lat Peak E' Toni: 8.4 cm/sec Med Peak E' Toni: 7.0 cm/sec MV A max toni: 77.3 cm/sec E/E' lat: 8.9 E/E' med: 10.7 MV E/A: 0.97 MV V2 max: 87.9 cm/sec MV P1/2t max toni: 84.7 cm/sec Ao V2 max: 129.3 cm/sec MV max P.1 mmHg MV P1/2t: 96.8 msec Ao max P.7 mmHg MV V2 mean: 45.5 cm/sec MV dec slope: 256.2 cm/sec2 MV mean P.0 mmHg MVA(P1/2t): 2.3 cm2 MV V2 VTI: 29.9 cm LV V1 max: 99.7 cm/sec PA V2 max: 88.6 cm/sec TR max toni: 180.9 cm/sec LV V1 max P.0 mmHg TR max P.1 mmHg Interpretation Summary Left ventricular systolic function is normal. The estimated ejection fraction is 65 %. The left atrium is mildly enlarged. Trivial mitral valve insufficiency. Trivial tricuspid valve insufficiency. Mild focal aortic valve calcification. Right ventricular systolic pressure estimated to be 16 mmHg. Diastolic function is indeterminate. Ordering Physician: Cole Grover Referring Physician: Cole Grover Performed By: Terry Epps RCS 06/19/18 1738 Date __ Raul Acuna MD CC: Cole Grover DO Date Dictated: 06/19/18 1307 Date Transcribed: 06/19/181737 School Librarian: Signed Cole Grover Work Phone: Start: 04-17-2018 End: 04-18-2018 Dexa Bone Density Study Comments: See Note; NOTES: [facility] Imaging Services [address] [place] [address] Dexa Bone Density Study MR#: [id number] Acct: [id number] Name: BREANNA PURCELL Gabby Rep #: [id number] : 1940 F 77 From: Graham Rivera MD PCP: Cole Grover DO Status: REG CLI Study: Dexa Bone Density Study Date of Exam: 04/17/18 Exam# [id number] Ordering Dr: Cole Grover DO STUDY: DUAL ENERGY X-RAY ABSORPTIOMETRY / DXA REASON FOR EXAM: Female, 77 years old. The patient is postmenopausal. Loss of height. TECHNIQUE: Bone Mineral Density (BMD) measurements of lumbar spine and bilateral hips were obtained. COMPARISON: Comparison is made with prior study dated April 13, 2016. __ FINDINGS: Lumbar Spine (L1-L4): g/cm2 (0.832) / T-score (-2.8) / Z-score (-1.0) Findings are suggestive of osteoporosis with a high fracture risk. Left Femur Total: g/cm2 (0.826) / T-score (-1.4) / Z-score (0.4) Left Femoral Neck: g/cm2 (0.841) / T-score (-1.4) / Z-score (0.6) Right Femur Total: g/cm2 (0.839) / T-score (-1.3) / Z-score (0.5) Right Femoral Neck: g/cm2 (0.782) / T-score (-1.8) / Z-score (0.1) The T-Scores on the most recent prior examination were: Lumbar Spine (L1-L4): There has been improvement of bone density since the previous examination. Left Femur Total: which represents a worsening of 1.3%. Right Femur Total: which represents an improvement of 3.2%. __ BD/Dexa Bone Density Study IMPRESSION: The patient is considered osteoporotic as outlined below according to World Trino Organization (WHO) criteria with a high fracture risk. There has been improvement of bone density since the previous examination. __ Reference Information: The T-score is the number of standard deviations above or below the standard which is normal for young adults at their peak bone mineral density. The World Health Organization (WHO) interprets the T-scores as follows: Above -1 Normal bone density Between -1 and -2.5 Osteopenia Equal to / or below -2.5 Osteoporosis As a practical clinical guideline, osteopenia may be graded as follows: Mild -1 through -1.5 Moderate -1.6 through -2.0 Severe -2.1 through -2.4 The Z-score is the number of standard deviations above or below age-matched controls. A Z-score of less than -1.5 would be considered abnormal. References: 1. NIH Osteoporosis and Related Bone Diseases http://www.osteo.org 2. International Society for Clinical Densitometry http://www.iscd.org 3. National Osteoporosis Foundation http://www.nof.org Electronically Signed: Graham Rivera MD at 12:46 EST , Service support , CC: Cole Grover DO School Librarian: Signed Cole Grover Work Phone: Start: 10-13-2017 End: 10-13-2017 TXT - Blood Flow Screening Comments: See Note; NOTES: [facility] Cardiovascular Services [address] [place] [address] 10/13/17 0847 MR#: [id number] Acct: [id number] Name: BREANNA PURCELL Rep #: [id number] : 1940 77 From: Addi Lorenzana MD Attending Dr: Cole Grover DO Status: REG REF Ordering Dr: Date: 10/13/17 Location: [facility] Sex: F C Admitted: Reason For Study: Blood flow screening Carotid Duplex Ultrasound Abdominal Aorta The right maximum ICA velocity is 93.2/31.1 cm/s.The maximal outside diameter of the proximal The right ECA velocity is less than 125 cm/s. aorta measures 2.2 cm in the longitudinal axis. There is no plaque formation noted on the right The maximal outside diameter of the proximal side. aorta measures 2.3 x 2.2 cm in the cross- The left maximum ICA velocity is 86.8/32.4 cm/s. sectional axis. The left ECA velocity is less than 125 cm/s. There is no plaque formation noted on the left side. Ankle Brachial Index The right ankle/ brachial index is 1.0. The left ankle/ brachial index is 1.0. Medical History and Assessment The heart rate is 54 beats per minute. The heart rhythm is regular. The right blood pressure is 132/80. The left blood pressure is 138/82. The assessment was performed by Chito Luna RVT. Interpretation Summary Normal carotid artery screening (0 to 15% narrowing). Normal aortic ultrasound exam. The ankle/brachial index is normal (1.0 or greater). .rdering Physician: Cole Grover D.O Performed By: Selam Luna RVT 10/13/17 1401 Date __ Addi Lorenzana MD CC: Cole Grover DO Date Dictated: 10/13/17 0847 Date Transcribed: 10/13/17 1401 School Librarian: Signed Cole Grover Start: 08-24-2017 End: 08-25-2017 SCREENING MAMM (CAD), BILAT Comments: See Note; NOTES: [facility] Imaging Services [address] [place] [address] SCREENING MAMM (CAD), BILAT MR#: [id number] Acct: [id number] Name: BREANNA PURCELL Rep #: [id number] : 1940 F 76 From: Graham Rivera MD PCP: Cole Grover DO Status: REG CLI Study: SCREENING MAMM (CAD), BILAT Date of Exam: 08/24/17 Exam# [id number] Ordering Dr: Cole Grover DO MAMMOGRAPHY - BILATERAL SCREENING REASON FOR EXAM: Female, 76 years old. Routine annual screening examination. PERTINENT HISTORY: Mother with breast cancer. TECHNIQUE: Digital bilateral breast charlotte (3D mammographic acquisition) in the CC and MLO projections. 2-D mediolateral oblique (MLO) and craniocaudad (CC) views of both breasts were obtained. CAD: Full Field Digital Mammography with Computer Added Detection was performed. COMPARISON: Comparison is made with prior study dated August 22, 2016 and August 21, 2015. __ FINDINGS: Breast Composition: The breasts are heterogeneously dense, which may obscure small masses. There are no dominant masses or suspicious calcifications. No other significant abnormalities are identified. There has been no significant change since the prior study. __ BI/SCREENING MAMM (CAD), BILAT IMPRESSION: Stable bilateral screening mammogram. Yearly follow-up mammogram recommended. (A) __ ASSESSMENT CATEGORY: BIRADS Category 1: Negative. A letter regarding these results will be sent to the patient by the facility within 30 days. Approximately 10% of breast cancers are not detected by mammography. A normal mammogram should not delay biopsy of a clinically suspicious abnormality. [id number] Electronically Signed: Graham Rivera MD at 8:04 EDT Tel [phone], Service support , CC: Cole Grover DO School Librarian: Signed Cole Grover Work Phone: Start: 08-22-2016 End: 08-22-2016 SCREENING MAMM (CAD), BILAT Comments: See Note; NOTES: [facility] Imaging Services [address] [place] [address] Verdana 4d SCREENING MAMM (CAD), BILAT MR#: [id number] Acct: [id number] Name: BREANNA PURCELL Rep #: [id number] : 1940 F 75 From: Graham Rivera MD PCP: Cole Grover DO Status: REG CLI Study: SCREENING MAMM (CAD), BILAT Date of Exam: 08/22/16 Exam# [id number] Ordering Dr: Cole Grover DO MAMMOGRAPHY - BILATERAL SCREENING REASON FOR EXAM: Female, 75 years old. Routine annual screening examination. PERTINENT HISTORY: Mother with breast cancer. TECHNIQUE: Digital bilateral breast charlotte (3D mammographic acquisition) in the CC and MLO projections. 2-D mediolateral oblique (MLO) and craniocaudad (CC) views of both breasts were obtained. CAD: Full Field Digital Mammography with Computer Added Detection was performed. COMPARISON: Comparison is made with prior study dated August 21, 2015 and August 18, 2014. __ FINDINGS: Breast Composition: The breasts are heterogeneously dense, which may obscure small masses. There are no dominant masses or suspicious calcifications. No other significant abnormalities are identified. There has been no significant change since the prior study. __ HPBI/SCREENING MAMM (CAD), BILAT IMPRESSION: Stable bilateral screening mammogram. Yearly follow-up mammogram recommended. (A) __ ASSESSMENT CATEGORY: BIRADS Category 1: Negative. A letter regarding these results will be sent to the patient by the facility within 30 days. Approximately 10% of breast cancers are not detected by mammography. A normal mammogram should not delay biopsy of a clinically suspicious abnormality. [id number] Electronically Signed: Graham Rivera MD at 13:06 EDT Tel [phone], Service support , CC: Cole Grover DO School Librarian: Signed Cole Grover Work Phone: Start: 04-13-2016 End: 04-13-2016 Dexa Bone Density Study (HP) Comments: See Note; NOTES: [facility] Imaging Services [address] [place] [address] Verdana 4d Dexa Bone Density Study (HP) MR#: [id number] Acct: [id number] Name: BREANNA PURCELL Rep #: [id number] : 1940 F 75 From: Graham Rivera MD PCP: Cole Grover DO Status: REG CLI Study: Dexa Bone Density Study (HP) Date of Exam: 04/13/16 Exam# [id number] Ordering Dr: Cole Grover DO STUDY: DUAL ENERGY X-RAY ABSORPTIOMETRY / DXA REASON FOR EXAM: Female, 75 years old. The patient is postmenopausal. Loss of height. TECHNIQUE: Bone Mineral Density (BMD) measurements of lumbar spine and bilateral hips were obtained. COMPARISON: Comparison is made with prior study dated April 08, 2014. __ FINDINGS: Lumbar Spine (L1-L4): g/cm2 (0.807) / T-score (-3.0) / Z-score (-1.2) Findings are suggestive of osteoporosis with a high fracture risk. Left Femur Total: g/cm2 (0.837) / T-score (-1.4) / Z-score (0.4) Left Femoral Neck: g/cm2 (0.873) / T-score (-1.2) / Z-score (0.7) Right Femur Total: g/cm2 (0.813) / T-score (-1.5) / Z-score (0.2) Right Femoral Neck: g/cm2 (0.794) / T-score (-1.8) / Z-score (0.1) The T-Scores on the most recent prior examination were: Lumbar Spine (L1-L4): There has been improvement of bone density since the previous examination. Left Femur Total: which represents an improvement of 0.4%. Right Femur Total: which represents a worsening of 2.2%. __ HPBD/Dexa Bone Density Study (HP) IMPRESSION: The patient is considered osteoporotic as outlined below according to World Trino Organization (WHO) criteria with a high fracture risk. There has been worsening of bone density since the previous examination. __ Reference Information: The T-score is the number of standard deviations above or below the standard which is normal for young adults at their peak bone mineral density. The World Health Organization (WHO) interprets the T-scores as follows: Above -1 Normal bone density Between -1 and -2.5 Osteopenia Equal to / or below -2.5 Osteoporosis As a practical clinical guideline, osteopenia may be graded as follows: Mild -1 through -1.5 Moderate -1.6 through -2.0 Severe -2.1 through -2.4 The Z-score is the number of standard deviations above or below age-matched controls. A Z-score of less than -1.5 would be considered abnormal. References: 1. NIH Osteoporosis and Related Bone Diseases http://www.osteo.org 2. International Society for Clinical Densitometry http://www.iscd.org 3. National Osteoporosis Foundation http://www.nof.org Electronically Signed: Graham Rivera MD at 13:03 EST Tel [phone], Service support [phone], CC: Cole Grover DO School Librarian: Signed Cole Grover Work Phone: Start: 08-21-2015 End: 08-21-2015 Bilat Scrn Digital AND CAD Comments: See Note; NOTES: [facility] Imaging Services [address] [place] [address] Verdana 4d Bilat Scrn Digital AND CAD MR#: [id number] Acct: [id number] Name: BREANNA PURCELL Rep #: [id number] : 1940 F 74 From: Graham Rivera MD PCP: Cole Grover DO Status: REG CLI Study: Bilat Scrn Digital AND CAD Date of Exam: 08/21/15 Exam# [id number] Ordering Dr: Cole Grover DO MAMMOGRAPHY - BILATERAL SCREENING REASON FOR EXAM: Female, 74 years old. Routine annual screening examination. PERTINENT HISTORY: Mother with breast cancer. TECHNIQUE: Digital bilateral breast tomosynthesis (3-D mammographic acquisition) in the CC and MLO projections. Synthesized 2-D images (C-View reconstruction from tomosynthesis acquisition) providing bilateral breast CC and MLO views. Mediolateral oblique (MLO) and craniocaudad (CC) views of both breasts were obtained. CAD: Full Field Digital Mammography with Computer Added Detection was performed. COMPARISON: Comparison is made with prior study dated August 18, 2014 and August 07, 2012. __ FINDINGS: Breast Composition: The breasts are heterogeneously dense, which may obscure small masses. There are no dominant masses or suspicious calcifications. No other significant abnormalities are identified. There has been no significant change since the prior study. __ IMPRESSION: Stable bilateral screening mammogram. Yearly follow-up mammogram recommended. (A) __ ASSESSMENT CATEGORY: BIRADS Category 1: Negative. A letter regarding these results will be sent to the patient by the facility within 30 days. Approximately 10% of breast cancers are not detected by mammography. A normal mammogram should not delay biopsy of a clinically suspicious abnormality. [id number] Electronically Signed: Graham Rivera MD at 14:44 EDT Tel [phone], Service support [phone], CC: Cole Grover DO School Librarian: Signed Cole Grover Work Phone: Start: 04-07-2015 End: 04-07-2015 PT D/C Summary (1) Comments: See Note; NOTES: [facility] Physical Therapy Health[address] [place] [address] Fax REHABILITATION SERVICES DISCHARGE SUMMARY MR#: [id number] Acct: [id number] Name: BREANNA PURCELL Rep #: [id number] : 1940 74 From: Hussain Barraza PT, Cert. T Referring : Cole Grover DO Status: REG RCR Eval Date: Discharge Date: - PT D/C Summary It has been my pleasure to treat BREANNA PURCELL under orders from Cole Grover, for the diagnosis of low back pain for a total of 9 visit(s). Please see the following information for a summary of their discharge status. - Subjective Subjective: Doing well ..doing ex's on own - Pain Bilateral Back Pain Intensity (Out of 10): 2 - Overall Improvement % Improvement: 75 - Objective Objective/Function: POSTURE: mild foward posture ,mild thoracic kyphosis. GAIT: normal ike. NEURO: INACT. MMT: 4/5 GROSSLY. LUMBAR ROM: flexion min loss,extension mod loss - Goals Goal 1:: Independant with HEP. Goal Progress: Goal Met Goal 2:: Independant with posture /body mechanics . Goal Progress: Goal Met Goal 3:: Decrease low back pain and radicular symptoms to improve function with ADL'S. Goal Progress: Goal Met Goal 4:: Patient able to perform ADLS AND HOUSE WORK with min limitations. Goal Progress: Goal Met Goal 5:: D/C to prophalxis to diminish low back pain. Goal Progress: Goal Met - Plan Plan: D/C TO HEP and GYM EX'S - D/C Information Discharge Comments: Doing well met goals .. D/C to HEP and GYM EX'S at If there are questions or concerns regarding this patient's physical therapy, please feel free to call me at [phone]. Thank you for the referral of this patient. Sincerely, Hussain Barraza <Electronically signed by Hussain Barraza PT, Cert. MDT> 04/07/15 1139 CC: Cole Grover DO Signed Cole Grover Start: 03-03-2015 End: 03-03-2015 Inital Evaluation - PT Comments: See Note; NOTES: [facility] Physical Therapy [address] [place] [address] Fax REHABILITATION SERVICES INITIAL EVALUATION MR#: [id number] Acct: [id number] Name: BREANNA PURCELL Rep #: [id number] : 1940 74 From: Hussain Barraza Referring : Cole Grover DO Status: REG RCR Insurance: [employer] [facility] Eval Date: Patient's Visit Information BREANNA PURCELL is a 74 year old F, referred to Physical Therapy by Cole Grover,, with a diagnosis of low back pain. Date of Evaluation: 02/24/15 Physical Therapist: Hussain Barraza - Visit Plan Frequency: 2x /Week Duration: 4 Weeks - Subjective This 74 y/o female presents to physical therapy with LBP and radicular symptoms in legssince 2014 no injury or mechanism of pain.Location pain symmtrical low back. occassional hips described as ache.Worse with elevation from chair,supine ,some standing and walking but overall better with walking. Denies parathesia/tingling.Bowel /bladder good.Affects sleeping.No injury ,proor PT for sciatica. SOCAIL:, H and W senior strenght - Objective POSTURE: flat lumbar mild foward posture. GAIT: normal ike. NEURO: REFLEXES L3-4,L4-5,L5- S1,mytomes inact. MMT: quads/hams/hip/ankle 4/5. LUMBAR ROM :flexion WFL,extension mod loss, side glides min/mod loss. FLEXABILITY: hams WFL ,pitiformis min. PALAPATION: unremarkable. SYYMMTIES: align. - Goals Goal 1:: Independant with HEP. Goal Time Frame: 4-6 Weeks Goal 2:: Independant with posture /body mechanics . Goal Time Frame: 4-6 Weeks Goal 3:: Decrease low back pain and radicular symptoms to improve function with ADL'S. Goal Time Frame: 4-6 Weeks Goal 4:: Patient able to perform ADLS AND HOUSE WORK with min limitations. Goal Time Frame: 4-6 Weeks Goal 5:: D/C to prophalxis to diminish low back pain. - Rehabilitation Potential Physical Therapy Diagnosis: This patient presents with low back pain and radicular symptoms in legs which impairs function and ADLS tbhus will benifit from skilled PT to adrress above impairments Rehabilitation Potential: Good - Anticipated Interventions Patient/Client Instruction: Educate patient on: Condition, Plan of Care For the Purpose of:: To decrease pain, To improve muscle performance and motor function, To improve ability to perform ADL's, To improve ability of physical actions for home/community/ work/leisure Therapeutic Exercise to Include: Strength training, Body mechanics, Postural training, Dynamic Lumbar Stabilization For the Purpose of:: To decrease pain, To improve muscle performance and motor function, To increase tolerance to activity/condition/position, To improve ability of physical actions for home/community/work/leisure, To prevent re-injury IF ES: Yes Cryotherapy (ice pack, ice massage): Yes Thermo therapy (hot pack): Yes Ultrasound (thermal/non thermal): Yes For the Purpose of:: To decrease pain, To decrease swelling/inflammation, To improve nutrient delivery to tissue, To improve health of tissue, To decrease soft tissue restriction Thank you for the opportunity to evaluate your patient. For Medicare and Medicare HMO plans, please review the plan of care and approve it. It will need to be FAXED BACK to us at [phone] for Medicare purposes. Please let me know if there are questions or concerns regarding this plan of care. Physician Signature: Date:__ <Electronically signed by Hussain Barraza > 03/03/15 0948 CC: Cole Grover DO Signed For Medicare only, by signing this I certify the plan of care. Physicians Signature Date Cole Grover Start: 02-17-2015 End: 02-17-2015 Hip min 2 Views Comments: See Note; NOTES: [facility] Imaging Services [address] [place] [id number] [place] [address] 4d Hip min 2 Views MR#: [id number] Acct: [id number] Name: BREANNA PURCELL Rep #: [id number] : 1940 F 74 From: Benitez Vance MD PCP: Cole Grover DO Status: REG CLI Study: Hip min 2 Views Date of Exam: 02/17/15 Exam# [id number] Ordering Dr: Cole Grover DO STUDY: X-RAY - RIGHT HIP REASON FOR EXAM: Female, 74 years old. Bilateral hip pain. No injury TECHNIQUE: 2 views of the hip. COMPARISON: None. __ FINDINGS: Normal femoral head, neck, intertrochanteric region and visualized proximal femur. There is a small subchondral cyst in the acetabulum Normal hip joint. Normal visualized superior and inferior pubic rami and ischial tuberosities. __ IMPRESSION: Small subchondral cysts in the acetabulum. No other significant degenerative changes noted Electronically Signed: Benitez Vance MD, FACR at 19:39 EST , Service support [phone], RAD/Hip min 2 Views IMPRESSION: Small subchondral cysts in the acetabulum. No other significant degenerative changes noted Electronically Signed: Benitez Vance MD, FACR at 19:39 EST , Service support [phone], CC: Cole Grover DO School Librarian: Signed Cole Grover Work Phone: Start: 02-17-2015 End: 02-17-2015 L/S Spine Min 4 Views Comments: See Note; NOTES: [facility] Imaging Services [address] [place] [address] [place] 4d L/S Spine Min 4 Views MR#: [id number] Acct: [id number] Name: BREANNA PURCELL Rep #: [id number] : 1940 F 74 From: Benitez Vance MD PCP: Cole Grover DO Status: REG CLI Study: L/S Spine Min 4 Views Date of Exam: 02/17/15 Exam# [id number] Ordering Dr: Cole Grover DO STUDY: X-RAY - LUMBAR SPINE REASON FOR EXAM: Female, 74 years old. Low back pain with bilateral hip pain. No injury TECHNIQUE: 5 view(s) of the lumbar spine were obtained. COMPARISON: None __ FINDINGS: Normal lumbar lordosis. There is mild levoscoliosis. There is a normal alignment of the vertebrae. There is osteopenia. Normal vertebral bodies and endplates except for small anterior osteophytes. There is disc space narrowing at L4-5 The soft tissue structures are unremarkable. __ IMPRESSION: Mild levoscoliosis. Minor degenerative changes. Osteopenia. Mild degenerative disc disease at L4-5 Electronically Signed: Benitez Vance MD, FACR at 19:56 EST , Service support [phone], RAD/L/S Spine Min 4 Views IMPRESSION: Mild levoscoliosis. Minor degenerative changes. Osteopenia. Mild degenerative disc disease at L4-5 Electronically Signed: Benitez Vance MD, FACR at 19:56 EST , Service support [phone], CC: Cole Grover DO School Librarian: Signed Cole Grover Work Phone: Start: 08-18-2014 End: 08-18-2014 Jeanie Espinosa Digital AND CAD Comments: See Note; NOTES: [facility] Imaging Services [address] [place] [address] Breast Imaging Report MR#: [id number] Acct: [id number] Name: BREANNA PURCELL Rep #: [id number] : 1940 F 73 From: Graham Rivera MD PCP: Cole Grover DO Status: REG CLI Study: Jeanie Espinosa Digital AND CAD Date of Exam: 08/18/14 Exam# [id number] Ordering Dr: Cole Grover DO MAMMOGRAPHY - BILATERAL SCREENING REASON FOR EXAM: Female, 73 years old. Routine annual screening examination. PERTINENT HISTORY: Mother with breast cancer. TECHNIQUE: Digital examination. Mediolateral oblique (MLO) and craniocaudad (CC) views of both breasts were obtained. CAD: CAD was performed on this study. COMPARISON: Comparison is made with prior study dated August 16, 2013 and August 07, 2012. __ FINDINGS: Breast Composition: The breasts are heterogeneously dense, which may obscure small masses. There are no dominant masses or suspicious calcifications. No other significant abnormalities are identified. There has been no significant change since the prior study. __ IMPRESSION: Stable bilateral screening mammogram. Yearly follow-up recommended. (A) __ ASSESSMENT CATEGORY: BIRADS Category 2: Benign. A letter regarding these results will be sent to the patient by the facility within 30 days. Approximately 10% of breast cancers are not detected by mammography. A normal mammogram should not delay biopsy of a clinically suspicious abnormality. Electronically Signed: Graham Rivera MD at 10:42 EDT Tel [phone], Service support [phone], CC: Cole Grover DO School Librarian: Signed Cole Grover Work Phone: Start: 04-08-2014 End: 04-08-2014 Dexa Bone Density Study (HP) Comments: See Note; NOTES: [facility] Imaging Services [address] [place] [address] Bone Density Report MR#: [id number] Acct: [id number] Name: BINHBREANNA E Rep #: [id number] : 1940 F 73 From: Graham Rivera MD PCP: Cole Grover DO Status: [facility] CLI Study: Dexa Bone Density Study (HP) Date of Exam: 04/08/14 Exam# [id number] Ordering Dr: Cole Grover DO STUDY: DUAL ENERGY X-RAY ABSORPTIOMETRY / DXA REASON FOR EXAM: Female, 73 years old. The patient is postmenopausal. TECHNIQUE: Bone Mineral Density (BMD) measurements of lumbar spine and bilateral hips were obtained. COMPARISON: Comparison is made with prior study dated April 03, 2012. __ FINDINGS: Lumbar Spine (L1-L4): g/cm2 (0.765) / T-score (-3.3) / Z-score (-1.6) Findings are suggestive of osteoporosis with a high fracture risk. Left Femur Total: g/cm2 (0.834) / T-score (-1.4) / Z-score (0.2) Left Femoral Neck: g/cm2 (0.805) / T-score (-1.7) / Z-score (0.1) Right Femur Total: g/cm2 (0.831) / T-score (-1.4) / Z-score (0.2) Right Femoral Neck: g/cm2 (0.785) / T-score (-1.8) / Z-score (0.0) The T-Scores on the most recent prior examination were: Lumbar Spine (L1-L4): There has been worsening of bone density since the previous examination. Left Femur Total: which represents a worsening of 2.8%. Right Femur Total: which represents a worsening of 1.9%. __ IMPRESSION: The patient is considered osteoporotic as outlined below according to World Trino Organization (WHO) criteria with a moderate fracture risk. There has been worsening of bone density since the previous examination. __ Reference Information: The T-score is the number of standard deviations above or below the standard which is normal for young adults at their peak bone mineral density. The World Health Organization (WHO) interprets the T-scores as follows: Above -1 Normal bone density Between -1 and -2.5 Osteopenia Equal to / or below -2.5 Osteoporosis As a practical clinical guideline, osteopenia may be graded as follows: Mild -1 through -1.5 Moderate -1.6 through -2.0 Severe -2.1 through -2.4 The Z-score is the number of standard deviations above or below age-matched controls. A Z-score of less than -1.5 would be considered abnormal. References: 1. NIH Osteoporosis and Related Bone Diseases http://www.osteo.org 2. International Society for Clinical Densitometry http://www.iscd.org 3. National Osteoporosis Foundation http://www.nof.org Electronically Signed: Graham Rivera MD at 14:52 EST Tel [phone], Service support [phone], CC: Cole Grover DO School Librarian: Signed Cole Grover Work Phone: Start: 08-16-2013 End: 08-16-2013 Bilat Scrn Digital & CAD Comments: See Note; NOTES: [facility] Imaging Services [address] [place] [address] Breast Imaging Report MR#: [id number] Acct: [id number] Name: BREANNA PURCELL Rep #: [id number] : 1940 F 72 From: Graham Rivera MD PCP: Cole Grover DO Status: REG CLI Exam# [id number] Ordering Dr: Cole Grover DO MAMMOGRAPHY - BILATERAL SCREENING REASON FOR EXAM: Female, 72 years old. Routine annual screening examination. PERTINENT HISTORY: Mother with breast cancer. TECHNIQUE: Digital examination. Mediolateral oblique (MLO) and craniocaudad (CC) views of both breasts were obtained. CAD: CAD was performed on this study. COMPARISON: Comparison is made with prior study dated August 07, 2012 and August 04, 2011. __ FINDINGS: The breast composition is heterogeneously dense, ranging from 51% to 75% of the total breast volume, which may obscure small masses. There are no dominant masses or suspicious calcifications. No other significant abnormalities are identified. There has been no significant change since the prior study. __ IMPRESSION: Stable bilateral screening mammogram. Yearly follow-up recommended. (A) __ ASSESSMENT CATEGORY: BIRADS Category 2: Benign finding(s). A letter regarding these results will be sent to the patient by the facility within 30 days. Approximately 10% of breast cancers are not detected by mammography. A normal mammogram should not delay biopsy of a clinically suspicious abnormality. Electronically Signed: Graham Rivera MD at 13:57 EDT Tel [phone], Service support [phone], CC: Cole Grover DO School Librarian: Signed Cole Grover Work Phone: Start: 02-15-2013 End: 02-15-2013 Transvaginal Non- Comments: See Note; NOTES: [facility] Imaging Services [address] [place] [address] Ultrasound Report MR#: [id number] Acct: [id number] Name: BREANNA PURCELL Rep #: [id number] : 1940 F 72 From: Regulo Yuen MD PCP: Cole Grover DO Status: REG CLI Study: Pelvic (Non ) Date of Exam: 02/15/13 Exam# [id number]; [id number] Ordering Dr: Cole Grover DO STUDY: ULTRASOUND OF THE FEMALE PELVIS - COMPLETE REASON FOR EXAM: Female, 72 years old. LMP: Postmenopausal. Pelvic pain. TECHNIQUE: Transabdominal and transvaginal. TECHNICAL QUALITY: Adequate. COMPARISON: October 01, 2010. __ FINDINGS: The uterus is anteverted and is in a midline position. The uterus measures 5.6 x 4.2 x 2.6 cm. Small nabothian cyst. The endometrium measures 3.0 mm in thickness, and is minimally distended by fluid. There is no demonstrated endometrial mass. Scattered uterine calcifications are unchanged from prior examination although a definite focal fibroid is not visualized. I.U.D. - No Ovaries are not visualized. There is no fluid in the cul-de-sac. The distended urinary bladder had a volume of 195 ml at the time of the exam. Incidental note of moderately prominent similarity both sides of the uterus. __ IMPRESSION: Scattered uterine calcifications suggest fibroids though no focal fibroid is demonstrated. This represents no significant interval change. Nonvisualization of ovaries. Electronically Signed: Regulo Yuen M.D. at 22:37 EST Tel , Service support [phone], CC: Cole Grover DO School Librarian: Signed Cole Grover Work Phone: Start: 02-15-2013 End: 02-15-2013 Pelvic (Non ) Comments: See Note; NOTES: [facility] Imaging Services [address] [place] [address] Ultrasound Report MR#: [id number] Acct: [id number] Name: BREANNA PURCELL Rep #: [id number] : 1940 F 72 From: Regulo Yuen MD PCP: Cole Grover DO Status: REG CLI Study: Pelvic (Non ) Date of Exam: 02/15/13 Exam# [id number]; [id number] Ordering Dr: Cole Grover DO STUDY: ULTRASOUND OF THE FEMALE PELVIS - COMPLETE REASON FOR EXAM: Female, 72 years old. LMP: Postmenopausal. Pelvic pain. TECHNIQUE: Transabdominal and transvaginal. TECHNICAL QUALITY: Adequate. COMPARISON: October 01, 2010. __ FINDINGS: The uterus is anteverted and is in a midline position. The uterus measures 5.6 x 4.2 x 2.6 cm. Small nabothian cyst. The endometrium measures 3.0 mm in thickness, and is minimally distended by fluid. There is no demonstrated endometrial mass. Scattered uterine calcifications are unchanged from prior examination although a definite focal fibroid is not visualized. I.U.D. - No Ovaries are not visualized. There is no fluid in the cul-de-sac. The distended urinary bladder had a volume of 195 ml at the time of the exam. Incidental note of moderately prominent similarity both sides of the uterus. __ IMPRESSION: Scattered uterine calcifications suggest fibroids though no focal fibroid is demonstrated. This represents no significant interval change. Nonvisualization of ovaries. Electronically Signed: Regulo Yuen M.D. at 22:37 EST Tel , Service support [phone], CC: Cole Grover DO School Librarian: Signed Cole Grover Work Phone: Plan of Treatment Date Care Activity Detail Author Start: 10-27-2022 Dual energy X-ray absorptiometry Dexa Bone Density Study [facility] Start: 09-12-2022 Procedure [facility] Work Phone: Start: 09-12-2022 Urnls dip stick/tabl et reagent auto microscopy [facility]; [facility] Work Phone: Start: 09-12-2022 Blood count complete auto&auto difrntl wbc [facility]; [facility] Work Phone: Start: 09-12-2022 Comprehensive metabo lic panel [facility]; [facility] Work Phone: Start: 06-03-2022 Procedure [facility]; [facility] Work Phone: Start: 06-03-2022 Hemoglobin glycosyla lola a1c [facility]; [facility] Work Phone: Start: 06-03-2022 Urine albumin quantitative [facility]; [facility] Work Phone: Start: 06-03-2022 Lipid panel [facility]; [facility] Work Phone: Start: 06-03-2022 Blood count complete auto&auto difrntl wbc [facility]; [facility] Work Phone: Start: 06-03-2022 Comprehensive metabo lic panel [facility]; [facility] Work Phone: Start: 01-11-2022 Procedure [facility]; [facility] Work Phone: Start: 01-11-2022 Lipid panel [facility]; [facility] Work Phone: Start: 01-11-2022 25 hydroxy includes fractions if performed [facility]; [facility] Work Phone: Start: 01-11-2022 Blood count complete auto&auto difrntl wbc [facility]; [facility] Work Phone: Start: 01-11-2022 Comprehensive metabo lic panel [facility]; [facility] Work Phone: Start: 01-11-2022 Hemoglobin glycosyla lola a1c [facility]; [facility] Work Phone: Start: 11-04-2021 Influenza vaccination INFLUENZA (#1) [facility] Start: 09-10-2021 Procedure Education [facility]; [facility] Work Phone: Start: 09-10-2021 Urnls dip stick/tabl et reagent auto microscopy [facility]; [facility] Work Phone: Start: 09-10-2021 Urine albumin quantitative [facility]; [facility] Work Phone: Start: 09-10-2021 Blood count complete auto&auto difrntl wbc [facility]; [facility] Work Phone: Start: 09-10-2021 Comprehensive metabo lic panel [facility]; [facility] Work Phone: Start: 06-19-2021 DIABETES SCREEN DIABETES SCREEN [facility] Start: 05-26-2021 Procedure [facility]; [facility] Work Phone: Start: 05-26-2021 Assay of thyroid stimulating hormone tsh [facility]; [facility] Work Phone: Start: 05-26-2021 Comprehensive metabo lic panel [facility]; [facility] Work Phone: Start: 05-26-2021 25 hydroxy includes fractions if performed [facility]; [facility] Work Phone: Start: 05-26-2021 Hemoglobin glycosyla lola a1c [facility]; [facility] Work Phone: Start: 05-26-2021 Blood count complete auto&auto difrntl wbc [facility]; [facility] Work Phone: Start: 05-20-2021 COVID-19 VACCINE (4 - Booster for Moderna series) COVID-19 VACCINE (4 - Booster for Moderna series) [facility] Start: 03-06-2021 ADVANCE DIRECTIVE DISCUSSION ADVANCE DIRECTIVE DISCUSSION [facility] Start: 03-06-2021 DEPRESSION ASSESSMENT DEPRESSION ASS ESSMENT [facility] Start: 01-15-2021 Procedure [facility]; [facility] Work Phone: Start: 01-15-2021 Lipid panel [facility]; [facility] Work Phone: Start: 01-15-2021 Hemoglobin glycosyla lola a1c [facility]; [facility] Work Phone: Start: 01-15-2021 Blood count complete auto&auto difrntl wbc [facility]; [facility] Work Phone: Start: 01-15-2021 Comprehensive metabo lic panel [facility]; [facility] Work Phone: Start: 01-15-2021 Sars-cov-2 antibody [facility]; [facility] Work Phone: Start: 11-02-2020 Procedure Education [facility]; [facility] Work Phone: Start: 11-02-2020 Assay of iron [facility]; [facility] Work Phone: Start: 11-02-2020 Urnls dip stick/tabl et rgnt non-auto w/o micrscp [facility]; [facility] Work Phone: Start: 07-28-2020 Procedure [facility]; [facility] Work Phone: Start: 07-28-2020 25 hydroxy includes fractions if performed [facility]; [facility] Work Phone: Start: 07-28-2020 Hemoglobin glycosyla lola a1c [facility]; [facility] Work Phone: Start: 07-28-2020 Blood count complete auto&auto difrntl wbc [facility]; [facility] Work Phone: Start: 07-28-2020 Comprehensive metabo lic panel [facility]; [facility] Work Phone: Start: 07-04-2020 HbA1c (Bld) [Mass fraction] HGB A1C (91914) [facility]; [facility] Work Phone: Start: 07-04-2020 Hemoglobin glycosyla lola a1c [facility]; [facility] Work Phone: Start: 07-04-2020 Blood count complete auto&auto difrntl wbc [facility]; [facility] Work Phone: Start: 07-04-2020 Comprehensive metabo lic panel [facility]; [facility] Work Phone: Start: 07-04-2020 Lipid panel [facility] Work Phone: Start: 04-29-2020 Procedure [facility]; [facility] Work Phone: Start: 04-29-2020 CBC, PLATELETS & MAN UAL DIFF (63718) [facility]; [facility] Work Phone: Comment on above: june Start: 03-23-2020 Procedure [facility]; [facility] Work Phone: Start: 03-23-2020 Provider Instruction s for Treatment [facility]; [facility] Work Phone: Start: 03-09-2020 Culture bct isol&prs mptv id isolate ea urine URINE TORIE CULTURE-IDENTIFICATN (48332) [facility]; [facility] Work Phone: Start: 03-09-2020 Procedure [facility]; [facility] Work Phone: Start: 01-14-2020 Procedure Education [facility] Work Phone: Start: 01-14-2020 Lipid panel [facility] Work Phone: Start: 01-14-2020 Blood count complete auto&auto difrntl wbc [facility] Work Phone: Start: 01-14-2020 Comprehensive metabo lic panel [facility] Work Phone: Start: 01-14-2020 HbA1c (Bld) [Mass fraction] HGB A1C (44077) [facility] Work Phone: Start: 01-14-2020 Hemoglobin glycosyla lola a1c [facility]; [facility] Work Phone: Start: 09-18-2019 Procedure Education [facility] Work Phone: Start: 09-18-2019 Comprehensive metabo lic panel METABOLIC PANEL, COMPREHENSIVE (38592) [facility] Work Phone: Start: 09-18-2019 Blood count complete auto&auto difrntl wbc CBC W/AUTO DIFF WBC (90829) [facility] Work Phone: Start: 06-18-2019 Urnls dip stick/tabl et reagent auto microscopy [facility] Work Phone: Start: 06-18-2019 Lipid panel [facility] Work Phone: Start: 06-18-2019 25 hydroxy includes fractions if performed [facility] Work Phone: Start: 06-18-2019 Blood count complete auto&auto difrntl wbc [facility] Work Phone: Start: 06-18-2019 Comprehensive metabo lic panel [facility] Work Phone: Start: 06-18-2019 Urine albumin quantitative [facility] Work Phone: Start: 06-18-2019 HbA1c (Bld) [Mass fraction] HGB A1C (36888) [facility] Work Phone: Start: 06-18-2019 Hemoglobin glycosyla lola a1c [facility]; [facility] Work Phone: Start: 03-19-2019 Lipid panel [facility] Work Phone: Start: 03-19-2019 Urnls dip stick/tabl et reagent auto microscopy [facility] Work Phone: Start: 03-19-2019 Blood count complete auto&auto difrntl wbc [facility] Work Phone: Start: 03-19-2019 Comprehensive metabo lic panel [facility] Work Phone: Start: 03-19-2019 HbA1c (Bld) [Mass fraction] HGB A1C (54127) [facility] Work Phone: Start: 03-19-2019 Hemoglobin glycosyla lola a1c [facility]; [facility] Work Phone: Start: 03-19-2019 Procedure Education [facility] Work Phone: Start: 01-30-2019 Procedure Education [facility] Work Phone: Start: 10-29-2018 Procedure Education [facility] Work Phone: Start: 10-29-2018 Comprehensive metabo lic panel METABOLIC PANEL, COMPREHENSIVE (80750) [facility] Work Phone: Start: 10-29-2018 Blood count complete auto&auto difrntl wbc CBC W/AUTO DIFF WBC (44932) [facility] Work Phone: Start: 07-20-2018 Hemoglobin A1c/Hemoglobin.total mass fraction (Bld) HGB A1C (55342) [facility] Work Phone: Start: 07-20-2018 Hemoglobin glycosyla lola a1c [facility]; [facility] Work Phone: Start: 07-20-2018 Lipid panel [facility] Work Phone: Start: 07-20-2018 Antibody rubeola [facility] Work Phone: Start: 07-20-2018 Blood count complete auto&auto difrntl wbc [facility] Work Phone: Start: 07-20-2018 Comprehensive metabo lic panel [facility] Work Phone: Start: 07-20-2018 Procedure Education [facility] Work Phone: Start: 07-09-2018 Procedure Education [facility] Work Phone: Start: 06-29-2018 Procedure Education [facility] Work Phone: Start: 06-01-2018 Procedure Education [facility] Work Phone: Start: 01-31-2018 Procedure Education [facility] Work Phone: Start: 01-31-2018 Blood count complete auto&auto difrntl wbc [facility] Work Phone: Start: 01-31-2018 Comprehensive metabo lic panel [facility] Work Phone: Start: 01-31-2018 Hemoglobin A1c/Hemoglobin.total mass fraction (Bld) HGB A1C (19640) [facility] Work Phone: Start: 01-31-2018 Hemoglobin glycosyla lola a1c [facility]; [facility] Work Phone: Start: 01-31-2018 Hepatitis c antibody Co [facility] Work Phone: Start: 09-27-2017 Blood count complete auto&auto difrntl wbc [facility] Work Phone: Start: 09-27-2017 Urine albumin quantitative [facility] Work Phone: Start: 09-27-2017 Comprehensive metabo lic panel [facility] Work Phone: Start: 09-27-2017 Hemoglobin A1c/Hemoglobin.total mass fraction (Bld) HGB A1C (44252) [facility] Work Phone: Start: 09-27-2017 Hemoglobin glycosyla lola a1c [facility]; [facility] Work Phone: Start: 09-27-2017 Procedure Education [facility] Work Phone: Start: 05-26-2017 Procedure Education [facility] Work Phone: Start: 01-18-2017 Procedure Education [facility] Work Phone: Start: 01-18-2017 25 hydroxy includes fractions if performed [facility] Work Phone: Start: 01-18-2017 Blood count complete auto&auto difrntl wbc [facility] Work Phone: Start: 01-18-2017 Comprehensive metabo lic panel [facility] Work Phone: Start: 01-18-2017 Urine albumin quantitative [facility] Work Phone: Start: 01-18-2017 Hemoglobin A1c/Hemoglobin.total mass fraction (Bld) HGB A1C (70333) [facility] Work Phone: Start: 01-18-2017 Hemoglobin glycosyla lola a1c [facility]; [facility] Work Phone: Start: 09-14-2016 25 hydroxy includes fractions if performed [facility] Work Phone: Start: 09-14-2016 Blood count complete auto&auto difrntl wbc [facility] Work Phone: Start: 09-14-2016 Lipid panel [facility] Work Phone: Start: 09-14-2016 Comprehensive metabo lic panel [facility] Work Phone: Start: 09-14-2016 Hemoglobin A1c/Hemoglobin.total mass fraction (Bld) HGB A1C (28659) [facility] Work Phone: Start: 09-14-2016 Hemoglobin glycosyla lola a1c [facility]; [facility] Work Phone: Start: 09-14-2016 Procedure Education [facility] Work Phone: Start: 04-15-2016 Procedure Education [facility] Work Phone: Start: 09-11-2015 Blood count complete auto&auto difrntl wbc [facility] Work Phone: Comment on above: APR Start: 09-11-2015 Comprehensive metabo lic panel [facility] Work Phone: Comment on above: APR Start: 08-27-2014 Provider Instruction s for Treatment [facility] Work Phone: Start: 04-23-2014 Procedure Education [facility] Work Phone: Start: 08-02-2013 25 hydroxy includes fractions if performed [facility] Work Phone: Start: 08-02-2013 Assay of thyroid stimulating hormone tsh [facility]; [facility] Work Phone: Start: 08-02-2013 Thyrotropin Qn TSH (42064) [facility] Work Phone: Start: 08-02-2013 Urnls dip stick/tabl et reagent auto microscopy [facility] Work Phone: Start: 08-02-2013 Blood count manual c ell count each [facility] Work Phone: Start: 08-02-2013 Comprehensive metabo lic panel [facility] Work Phone: Start: 08-02-2013 Patient Education [facility] Work Phone: Start: 08-20-2012 Patient Education [facility] Work Phone: Start: 08-20-2012 Provider Instruction s for Treatment [facility] Work Phone: Start: 08-20-2012 Cytp cerv/vag auto t hin layer prep mnl screen [facility] Work Phone: Start: 07-11-2012 Patient Education [facility] Work Phone: Start: 04-11-2012 Patient Education [facility] Work Phone: Start: 04-11-2012 25 hydroxy includes fractions if performed [facility] Work Phone: Start: 04-11-2012 Lipid panel [facility] Work Phone: Start: 04-11-2012 Blood count manual c ell count each [facility] Work Phone: Start: 04-11-2012 Comprehensive metabo lic panel [facility] Work Phone: Start: 10-07-2011 Provider Instruction s for Treatment [facility] Work Phone: Start: 09-14-2011 Patient Education [facility] Work Phone: Start: 05-04-2011 25 hydroxy includes fractions if performed [facility] Work Phone: Start: 05-04-2011 Urnls dip stick/tabl et reagent auto microscopy [facility] Work Phone: Start: 05-04-2011 Lipid panel [facility] Work Phone: Start: 05-04-2011 Comprehensive metabo lic panel [facility] Work Phone: Start: 05-04-2011 Blood count manual c ell count each [facility] Work Phone: Start: 05-04-2011 Provider Instruction s for Treatment [facility] Work Phone: Start: 09-28-2010 Patient Education [facility] Work Phone: Start: 09-28-2010 Provider Instruction s for Treatment [facility] Work Phone: Start: 04-12-2010 25 hydroxy includes fractions if performed [facility] Work Phone: Start: 01-13-2010 Blood count manual c ell count each [facility] Work Phone: Start: 01-13-2010 25 hydroxy includes fractions if performed [facility] Work Phone: Start: 09-30-2009 Provider Instruction s for Treatment [facility] Work Phone: Start: 09-30-2009 25 hydroxy includes fractions if performed [facility] Work Phone: Start: 04-15-2009 Lipid panel [facility] Work Phone: Start: 04-15-2009 Urnls dip stick/tabl et reagent auto microscopy [facility] Work Phone: Start: 04-15-2009 Comprehensive metabo lic panel [facility] Work Phone: Start: 04-15-2009 Blood count manual c ell count each [facility] Work Phone: Start: 04-15-2009 25 hydroxy includes fractions if performed [facility] Work Phone: Start: 04-15-2009 Assay of thyroid stimulating hormone tsh [facility]; [facility] Work Phone: Start: 04-15-2009 Thyrotropin Qn TSH (27217) [facility] Work Phone: Start: 01-22-2008 Lipid panel [facility] Work Phone: Start: 01-22-2008 Comprehensive metabo lic panel [facility] Work Phone: Start: 01-22-2008 Blood count manual c ell count each [facility] Work Phone: Start: 01-22-2008 25 hydroxy includes fractions if performed [facility] Work Phone: Start: 01-22-2008 Assay of thyroid stimulating hormone tsh [facility]; [facility] Work Phone: Start: 01-22-2008 Thyrotropin Qn TSH (08975) [facility] Work Phone: Start: 07-17-2007 Provider Instruction s for Treatment [facility] Work Phone: Start: 07-17-2007 Cytp cerv/vag auto t hin layer prep mnl screen [facility] Work Phone: Start: 05-29-2007 Assay of troponin quantitative [facility]; [facility] Work Phone: Start: 05-29-2007 Troponin I.cardiac m ass conc ASSAY, TROPONIN, QUANTITATIVE (aka Troponin I) ([id number]) [facility] Work Phone: Start: 05-29-2007 C-reactive protein [facility]; [facility] Work Phone: Start: 05-29-2007 CRP mass conc C-REACTIVE PRO TEIN (89241) [facility] Work Phone: Start: 05-29-2007 Sedimentation rate r bc non-automated [facility] Work Phone: Start: 05-29-2007 Blood count manual c ell count each [facility] Work Phone: Start: 05-29-2007 Fibrin dgradj produc ts d-dimer quantitative [facility] Work Phone: Start: 01-23-2007 Assay of magnesium [facility]; [facility] Work Phone: Start: 01-23-2007 Magnesium mass conc Magnesium (69343 ) [facility] Work Phone: Start: 01-23-2007 Assay of thyroid stimulating hormone tsh [facility]; [facility] Work Phone: Start: 01-23-2007 Thyrotropin Qn TSH (67603) [facility] Work [facility] Start: 01-23-2007 Comprehensive metabo lic panel [facility] Work Phone: Start: 01-23-2007 Blood count manual c ell count each [facility] Work Phone: Start: 2006 BONE DENSITY BONE DENSITY [facility] Start: 2006 PNEUMOCOCCAL: 65+ (1 - PCV) PNEUMOCOCCAL: 65+ (1 - PCV) [facility] Start: 12-08-2005 Provider Instruction s for Treatment [facility] Work Phone: Start: 08-31-1991 SHINGRIX VACCINE (1 of 2) SHINGRIX VACCINE (1 of 2) [facility] Start: 1960 Urine microalbumin profile DTAP,TDAP,TD (1 - Tdap) [facility] Work Phone: [facility] Work Phone: [facility] Work Phone: [facility] Work [facility] Work Phone: [facility] Work Phone: [facility] Work Phone[facility] Work Phone: [facility] Work Phone: [facility] Work Phone: [facility] Work [facility]: [facility] Work Phone: [facility] Work Phone: [facility] Work Phone: [facility] Work Phone: [facility] Work Phone: [facility] Work Phone: [facility] Work Phone: [facility] Work Phone: [facility] Work Phone: [facility] Work Phone: [facility] Work Phone: [facility] Work Phone: [facility] Work Phone: [facility] Work Phone: [facility] Work Phone: [facility] Work Phone: [facility] Work Phone: [facility] Work Phone: [facility] Work Phone: [facility] Work Phone: [facility] Work Phone: [facility] Work Phone: [facility] Work Phone: [facility] Work Phone: [facility] Work Phone: [facility] Work Phone: [facility] Work Phone: [facility] Work Phone: [facility] Work Phone: [facility] Work Phone: [facility] Work Phone: [facility] Work Phone: [facility] Work Phone: [facility] Work Phone: [facility] Work Phone: [facility] Work Phone: [facility] Work Phone: [facility] Work Phone: [facility] Work Phone: [facility] Work Phone: [facility] Work Phone: [facility] Work Phone: [facility] Work Phone: [facility] Phone: [facility] Work Phone: [facility] Work Phone: [facility] Work Phone: [facility] Work Phone: [facility] Work Phone: [facility] Work Phone: [facility] Work Phone: [facility] Work Phone[facility] Work Phone: [facility] Work Phone[facility] Work Phone: [facility]; [facility] Work Phone: [facility]; [facility] Work Phone: [facility]; [facility] Work Phone: [facility] Work Phone: [facility] Work Phone: [facility] Work Phone: [facility] Work Phone: [facility] Work Phone: [facility] Work Phone: [facility] Work Phone: [facility] Work Phone: [facility] Work Phone: [facility] Work Phone: [facility] Work Phone: [facility] Work Phone: [facility] Work Phone: [facility]; [facility] Work Phone: Immunizations Immunization Date Immunization Notes Care Provider [facility] 12-27-2021 influenza, injectabl e, quadrivalent, preservative free Cole Fast DO Work Phone: [facility]; [facility] Work Phone: 05-15-2020 Covid (Moderna) [facility] 04-17-2020 Covid (Moderna) [facility] 12-14-2019 Influenza virus vaccine [facility] 07-04-2018 zoster vaccine, live Cole Fast [facility] Work Phone: 04-06-2018 zoster vaccine, live Cole Fast [facility] Work Phone: 02-13-2013 varicella zoster imm une globulin Cole Fast [facility] Work Phone: Comment on above: Bring to doctors off ice once picked up to receive injection 03-02-2006 pneumococcal polysaccharide vaccine, 23 valent Cole Fast [facility] Work Phone: 03-06-1994 Hepatitis B vaccine (recombinant), CpG adjuvanted Cole Fast [facility] Work Phone: 03-06-1994 hepatitis B vaccine, adult dosage Cole Fast [facility] Work Phone: Payers Date Payer Category Payer Self-pay [id number] 2021 Medicare [employer] MEDICARE A ETNA MEDICARE PPO [id number] 2021-Present [phone] [address] [place] [address] PPO [id number] 2012 Private Health Insurance [id number] 2010 Medicare [id number] 2006 Medicare [id number] 2005 Unknown [id number] 2003 Unknown [id number] 1941 Unknown [id number] 16 Medicare [id number] Unknown Unknown [id number] 62 Unknown [id number] 62 Unknown [id number] 62 Unknown [id number] 62 Unknown [id number] 62 Unknown [id number] 62 Unknown [id number] 62 Unknown [id number] 62 Social History Date Type Detail Facility Start: 12-21-2021 Alcohol Use Never smoker [facility] Work Phone: Comment on above: QD, one glass qd 3 QD ,lives with spouse Current Work/Study Status: Retired. [facility] Work Phone: Exercise History: Exercises occasionally. [facility] Work Phone: Tobacco use: Never smoker. [facility] Work Phone: Current Work/Study Status: Current Work/Study Status: [facility]; [facility] Work Phone: Exercise History: Exercise History: [facility]; [facility] Work Phone: Tobacco use: Tobacco use: [facility] Work Phone: Start: 03-12-2020 End: 03-17-2023 Tobacco smoking status NHIS Unknown if ever smoked [facility] Start: 03-12-2020 None [facility] Start: 1940 Sex Assigned At Female C [facility] Start: 12-21-2021 End: 03-17-2023 Tobacco smoking status NHIS Never smoked tobacco [facility] Start: 12-21-2021 Tobacco use and exposure Smokeless tobacco non-user [facility] Start: 12-21-2021 Alcohol intake Current drinke r of alcohol (finding) [facility] Start: 06-19-2018 History SDOH Alcohol Std Drinks 1 [facility] Start: 01-06-2021 Alcohol Comment rarely [facility] Start: 12-11-2021 End: 12-21-2021 Exposure to SARS-CoV-2 (event) Not sure [facility] Start: 06-20-2024 Sex Female (finding) [facility] Clinical Notes 01-06-2021 to 06-04-2024 Note Date & Type Note Facility 06-04-2024 Evaluation note Diagnosis Onset Date Resolution Dyspnea on exertion acute June 04, 2024 1:27pm [facility] Work Phone: 1(392) 447-215110-18-2022 NoteHNO ID: [id number] Author: Ness Toribio PA-C Service: ? Author Type: Physician Dye Beck Reel Operator Type: Progress Notes Filed: 12/21/2021 10:48 AM Note Text: CHIEF COMPLAINT: Patient presents with: Recheck HPI Breanna Purcell is a 81 year old female here today for Recheck. Was previously on Protonix every other day, Pepcid PRN for GERD. Off of both medications around 6 mos ago with no refractory symptoms. Managing sx with diet. Taking Benefiber PRN with relief in constipation. Denies bloody/black colored stools. Reports colonoscopy w/ [facility] in 2020 that was all normal no polyps. OV 01/2021 Breanna Purcell is a 80 year old female here today for Recheck (Heartburn, nausea, constipation). Protonix 40 mg every other day works well for GERD sx. Has not had to take Pepcid recently due to improvement in symptoms. Taking Benefiber 0.5 tsp daily with good relief in constipation. BMs are 1-2 per day, normal consistency, no blood. Current Outpatient Medications Medication Sig PROLIA 60 mg/mL Cholecalciferol, Vitamin D3, 25 mcg (1,000 unit) cap Take 1,000 Units by mouth once daily. famotidine (PEPCID) 20 mg tablet Take 1 tablet by mouth once daily as needed. (Patient not taking: Reported on 12/21/2021) ondansetron orally disintegrating (ZOFRAN ODT) 4 mg disintegrating tablet Take 1 tablet by mouth every 8 hours as needed. Use for nausea. (Patient not taking: Reported on 12/21/2021) MEDICATION, NON-DATABASE med for headach as needed (Patient not taking: Reported on 12/21/2021) No current facility-administered medications for this visit. ALLERGIES No Known Allergies Social History Tobacco Use Smoking status: Never Smokeless tobacco: Never Vaping Use Vaping Use: Never used Substance Use Topics Alcohol use: Yes Alcohol/week: 1.0 standard drink Types: 1 Glasses of wine per week Comment: rarely Drug use: Never PAST MEDICAL HISTORY Diagnosis Date Arthropathy, unspecified, site unspecified Asymptomatic varicose veins Atherosclerosis of other specified arteries Cardiac dysrhythmia, unspecified Disorder of bone and cartilage, unspecified Disorder of bone and cartilage, unspecified Diverticulosis of colon (without mention of hemorrhage) Diverticulosis of colon (without mention of hemorrhage) Family history of malignant neoplasm of gastrointestinal tract Headache(784.0) Hemorrhage of gastrointestinal tract, unspecified Other premature beats Pain in joint, pelvic region and thigh Sciatica Unspecified venous (peripheral) insufficiency Varicose veins of lower extremities with inflammation PAST SURGICAL HISTORY Procedure Laterality Date COLONOSCOPY 03/2020 COLONOSCOPY FLX DX W/COLLJ SPEC WHEN PFRMD 10/07/2002 Colonoscopy COLONOSCOPY FLX DX W/COLLJ SPEC WHEN PFRMD 04/11/2006 COLONOSCOPY FLX DX W/COLLJ SPEC WHEN PFRMD 04/08/2010 due 04/2014 COLONOSCOPY FLX DX W/COLLJ SPEC WHEN PFRMD 03/14/2013 Colonoscopy normal EGD 03/2020 EGD EUS 11/17/2011 Unremarkable hepatobiliary EUS. PAST SURGICAL HISTORY OF 03/06/1992 right inguninal hernia repair PAST SURGICAL HISTORY OF right leg varicose veins surgery FAMILY HISTORY Problem Relation Age of Onset Colon Cancer Father Colon Cancer Mother Breast Cancer Mother COPD Brother other (polyps) Brother REVIEW OF SYSTEMS Review of Systems Gastrointestinal: Gas All other systems reviewed and are negative. PHYSICAL EXAM BP 132/70 Pulse 54 Ht 5' 4 (1.63m) Wt 130 lb 3.2 oz (59.1kg) BMI 22.34 kg/(m2). Physical Exam Constitutional: General: She is not in acute distress. Appearance: Normal appearance. She is normal weight. She is not ill-appearing, toxic-appearing or diaphoretic. HENT: Head: Normocephalic and atraumatic. Nose: Nose normal. Eyes: General: No scleral icterus. Right eye: No discharge. Left eye: No discharge. Extraocular Movements: Extraocular movements intact. Conjunctiva/sclera: Conjunctivae normal. Pupils: Pupils are equal, round, and reactive to light. Cardiovascular: Rate and Rhythm: Normal rate and regular rhythm. Pulses: Normal pulses. Heart sounds: Normal heart sounds. No murmur heard. No friction rub. No gallop. Pulmonary: Effort: No respiratory distress. Breath sounds: Normal breath sounds. No stridor. No wheezing, rhonchi or rales. Chest: Chest wall: No tenderness. Abdominal: General: Abdomen is flat. Bowel sounds are normal. There is no distension. Palpations: Abdomen is soft. There is no mass. Tenderness: There is no abdominal tenderness. There is no right CVA tenderness, left CVA tenderness, guarding or rebound. Hernia: No hernia is present. Musculoskeletal: General: Normal range of motion. Cervical back: Normal range of motion and neck supple. Skin: General: Skin is warm and dry. Neurological: General: No focal deficit present. Mental Status: She is alert and oriented to person, place, and time. Psy (more content not included)...[facility]10-18-2022 History of Present illness Narrative* Ness Toribio PA-C - 12/21/2021 10:36 AM EDT CHIEF COMPLAINT: Patient presents with: Recheck HPI Breanna Purcell is a 81 year old female here today for Recheck. Was previously on Protonix every other day, Pepcid PRN for GERD. Off of both medications around 6 mos ago with no refractory symptoms. Managing sx with diet. Taking Benefiber PRN with relief in constipation. Denies bloody/black colored stools. Reports colonoscopy / [facility] in 2020 that was all normal no polyps. OV 01/2021 Breanna Purcell is a 80 year old female here today for Recheck (Heartburn, nausea, constipation). Protonix 40 mg every other day works well for GERD sx. Has not had to take Pepcid recently due to improvement in symptoms. Taking Benefiber 0.5 tsp daily with good relief in constipation. BMs are 1-2 per day, normal consistency, no blood. Current Outpatient Medications Medication Sig PROLIA 60 mg/mL Cholecalciferol, Vitamin D3, 25 mcg (1,000 unit) cap Take 1,000 Units by mouth once daily. famotidine (PEPCID) 20 mg tablet Take 1 tablet by mouth once daily as needed. (Patient not taking: Reported on 12/21/2021) ondansetron orally disintegrating (ZOFRAN ODT) 4 mg disintegrating tablet Take 1 tablet by mouth every 8 hours as needed. Use for nausea. (Patient not taking: Reported on 12/21/2021) MEDICATION, NON-DATABASE med for headach as needed (Patient not taking: Reported on 12/21/2021) No current facility-administered medications for this visit. ALLERGIES No Known Allergies Social History Tobacco Use Smoking status: Never Smokeless tobacco: Never Vaping Use Vaping Use: Never used Substance Use Topics Alcohol use: Yes Alcohol/week: 1.0 standard drink Types: 1 Glasses of wine per week Comment: rarely Drug use: Never PAST MEDICAL HISTORY Diagnosis Date Arthropathy, unspecified, site unspecified Asymptomatic varicose veins Atherosclerosis of other specified arteries Cardiac dysrhythmia, unspecified Disorder of bone and cartilage, unspecified Disorder of bone and cartilage, unspecified Diverticulosis of colon (without mention of hemorrhage) Diverticulosis of colon (without mention of hemorrhage) Family history of malignant neoplasm of gastrointestinal tract Headache(784.0) Hemorrhage of gastrointestinal tract, unspecified Other premature beats Pain in joint, pelvic region and thigh Sciatica Unspecified venous (peripheral) insufficiency Varicose veins of lower extremities with inflammation PAST SURGICAL HISTORY Procedure Laterality Date COLONOSCOPY 03/2020 COLONOSCOPY FLX DX W/COLLJ SPEC WHEN PFRMD 10/07/2002 Colonoscopy COLONOSCOPY FLX DX W/COLLJ SPEC WHEN PFRMD 04/11/2006 COLONOSCOPY FLX DX W/COLLJ SPEC WHEN PFRMD 04/08/2010 due 04/2014 COLONOSCOPY FLX DX W/COLLJ SPEC WHEN PFRMD 03/14/2013 Colonoscopy normal EGD 03/2020 EGD EUS 11/17/2011 Unremarkable hepatobiliary EUS. PAST SURGICAL HISTORY OF 03/06/1992 right inguninal hernia repair PAST SURGICAL HISTORY OF right leg varicose veins surgery FAMILY HISTORY Problem Relation Age of Onset Colon Cancer Father Colon Cancer Mother Breast Cancer Mother COPD Brother other (polyps) Brother REVIEW OF SYSTEMS Review of Systems Gastrointestinal: Gas All other systems reviewed and are negative. PHYSICAL EXAM BP 132/70 Pulse 54 Ht 5' 4 (1.63m) Wt 130 lb 3.2 oz (59.1kg) BMI 22.34 kg/(m^2). Physical Exam Constitutional: General: She is not in acute distress. Appearance: Normal appearance. She is normal weight. She is not ill-appearing, toxic-appearing or diaphoretic. HENT: Head: Normocephalic and atraumatic. Nose: Nose normal. Eyes: General: No scleral icterus. Right eye: No discharge. Left eye: No discharge. Extraocular Movements: Extraocular movements intact. Conjunctiva/sclera: Conjunctivae normal. Pupils: Pupils are equal, round, and reactive to light. Cardiovascular: Rate and Rhythm: Normal rate and regular rhythm. Pulses: Normal pulses. Heart sounds: Normal heart sounds. No murmur heard. No friction rub. No gallop. Pulmonary: Effort: No respiratory distress. Breath sounds: Normal breath sounds. No stridor. No wheezing, rhonchi or rales. Chest: Chest wall: No tenderness. Abdominal: General: Abdomen is flat. Bowel sounds are normal. There is no distension. Palpations: Abdomen is soft. There is no mass. Tenderness: There is no abdominal tenderness. There is no right CVA tenderness, left CVA tenderness, guarding or rebound. Hernia: No hernia is present. Musculoskeletal: General: Normal range of motion. Cervical back: Normal range of motion and neck supple. Skin: General: Skin is warm and dry. Neurological: General: No focal deficit present. Mental Status: She is alert and oriented to person, place, and time. Psychiatric: Mood and Affect: Mood normal. Behavior: Behavior normal. Assessment/Plan (K29.30) Chronic superficial gastritis without bleeding (primary encounter diagnosis) (K44.9) Hiatal hernia 1. Chronic superficial gastritis without bleeding - Off of both Pepcid/Protonix, manages sx with diet with good relief - Follow gastritis precautions - Avoid NSAIDs 2. Hiatal hernia I spent a total of <10 minutes on the date of the service which included preparing to see the patient, [id number] patient care, completing clinical documentation, obtaining and/or reviewing separately obtained history, performing a medically appropriate examination, counseling and educating the patient/family/caregiver, ordering medications, tests, or procedures, communicating with other HCPs (not separately reported), independently interpreting results (not separately reported), communicating results to the patient/family/caregiver, and care coordination (not separately reported). Ness Toribio PA-C December 21, 2021 10:43 AM [facility] NoteHNO ID: [id number] Author: Ness Toribio PA-C Service: ? Author Type: Physician Dye Beck Reel Operator Type: Progress Notes Filed: 01/06/2021 10:09 AM Note Text: CHIEF COMPLAINT: Patient presents with: Recheck: Heartburn, nausea, constipation HPI Breanna Purcell is a 80 year old female here today for Recheck (Heartburn, nausea, constipation). Protonix 40 mg every other day works well for GERD sx. Has not had to take Pepcid recently due to improvement in symptoms. Taking Benefiber 0.5 tsp daily with good relief in constipation. BMs are 1-2 per day, normal consistency, no blood. OV 07/06/2020 Breanna Purcell is a 79 year old female here today for Recheck (Heartburn, Abdominal pain and vomiting ). States on average Protonix 40 mg daily will work well for GERD sx. Had one episode of persistent N/V for one day around last month but states that it subsided the next day and is now feeling well. Taking Benefiber daily, BMs are 1-2 per day, soft, no blood. Current Outpatient Medications Medication Sig - Cholecalciferol, Vitamin D3, (VITAMIN D) 25 mcg (1,000 unit) cap Take 1,000 Units by mouth once daily. - famotidine (PEPCID) 20 mg tablet Take 1 tablet by mouth once daily as needed. - ondansetron orally disintegrating (ZOFRAN ODT) 4 mg disintegrating tablet Take 1 tablet by mouth every 8 hours as needed. Use for nausea. - pantoprazole DR (PROTONIX) 40 mg tablet Take 1 tablet by mouth once daily. 30 minutes before breakfast. - MEDICATION, NON-DATABASE med for headach as needed No current facility-administered medications for this visit. ALLERGIES No Known Allergies Social History Tobacco Use - Smoking status: Never Smoker - Smokeless tobacco: Never Used Vaping Use - Vaping Use: Never used Substance Use Topics - Alcohol use: Yes Alcohol/week: 1.0 standard drinks Types: 1 Glasses of wine per week Comment: rarely - Drug use: Never PAST MEDICAL HISTORY Diagnosis Date - Arthropathy, unspecified, site unspecified - Asymptomatic varicose veins - Atherosclerosis of other specified arteries - Cardiac dysrhythmia, unspecified - Disorder of bone and cartilage, unspecified - Disorder of bone and cartilage, unspecified - Diverticulosis of colon (without mention of hemorrhage) - Diverticulosis of colon (without mention of hemorrhage) - Family history of malignant neoplasm of gastrointestinal tract - Headache(784.0) - Hemorrhage of gastrointestinal tract, unspecified - Other premature beats - Pain in joint, pelvic region and thigh - Sciatica - Unspecified venous (peripheral) insufficiency - Varicose veins of lower extremities with inflammation PAST SURGICAL HISTORY Procedure Laterality Date - COLONOSCOP W/ OR W/O [facility] SPEC 10/07/2002 Colonoscopy - COLONOSCOP W/ OR W/O [facility] SPEC 04/11/2006 - COLONOSCOP W/ OR W/O [facility] SPEC 04/08/2010 due 04/2014 - COLONOSCOP W/ OR W/O [facility] SPEC 03/14/2013 Colonoscopy normal - COLONOSCOPY 03/2020 - EGD 03/2020 - EGD EUS 11/17/2011 Unremarkable hepatobiliary EUS. - PAST SURGICAL HISTORY OF 03/06/1992 right inguninal hernia repair - PAST SURGICAL HISTORY OF right leg varicose veins surgery FAMILY HISTORY Problem Relation Age of Onset - Colon Cancer Father - Colon Cancer Mother - Breast Cancer Mother - COPD Brother - other (polyps) Brother REVIEW OF SYSTEMS Review of Systems All other systems reviewed and are negative. PHYSICAL EXAM BP 130/72 Pulse 74 Ht 5' 4 (1.63m) Wt 121 lb (54.9kg) BMI 20.76 kg/(m2). Physical Exam Constitutional: General: She is not in acute distress. Appearance: Normal appearance. She is normal weight. She is not ill-appearing, toxic-appearing or diaphoretic. HENT: Head: Normocephalic and atraumatic. Nose: Nose normal. Eyes: General: No scleral icterus. Right eye: No discharge. Left eye: No discharge. Extraocular Movements: Extraocular movements intact. Conjunctiva/sclera: Conjunctivae normal. Pupils: Pupils are equal, round, and reactive to light. Cardiovascular: Rate and Rhythm: Normal rate and regular rhythm. Pulses: Normal pulses. Heart sounds: Normal heart sounds. No murmur heard. No friction rub. No gallop. Pulmonary: Effort: No respiratory distress. Breath sounds: Normal breath sounds. No stridor. No wheezing, rhonchi or rales. Chest: Chest wall: No tenderness. Abdominal: General: Abdomen is flat. Bowel sounds are normal. There is no distension. Palpations: Abdomen is soft. There is no mass. Tenderness: There is no abdominal tenderness. There is no right CVA tenderness, left CVA tenderness, guarding or rebound. Hernia: No hernia is present. Musculoskeletal: General: Normal range of motion. Cervical back: Normal range of motion and neck supple. Skin: General: Skin is warm and dry. Neurological: General: No focal deficit present. Mental Status: She is alert and oriented to person, place, and time. Psychiatric: Mood (more content not included)...[facility] noteNo assessment information availableWTriHealth [facility] Work Phone: Evaluation note* Diagnosis Chronic superficial gastritis without bleeding- Primary Atrophic gastritis without mention of hemorrhage Hiatal hernia Diaphragmatic hernia without mention of obstruction or gangrene documented in this encounter [facility] note* Diagnosis Onset Date Resolution Status Dyspnea on exertion acute [facility] Work Phone: Instructions* Name Dates Details Patient Instructions Indication:Nonsmoker Start:28-Jul-2020 Instruction Type:Provider Instructions for Treatment How to Access Health Informa tion Online using Patient Portal and [employer] Apps Indication:Nonsmoker Start:28-Jul-2020 Instruction Type:Patient Education Patient Instructions Indication:Elevated hemoglobin A1c Start:29-Apr-2020 Instruction Type:Provider Instructions for Treatment How to Access Health Informa tion Online using Patient Portal and [employer] Apps Indication:Elevated hemoglobin A1c Start:29-Apr-2020 Instruction Type:Patient Education Patient Instructions Indication:Abdominal pain Start:01-Apr-2020 Instruction Type:Provider Instructions for Treatment Patient Instructions Indication:Diarrhea Start:27-Mar-2020 Instruction Type:Provider Instructions for Treatment Patient Instructions Indication:Diarrhea Start:26-Mar-2020 Instruction Type:Provider Instructions for Treatment Patient Instructions Indication:Nonsmoker Start:23-Mar-2020 Instruction Type:Provider Instructions for Treatment How to Access Health Informa tion Online using Patient Portal and [employer]rd [employer] Apps Indication:Nonsmoker Start:23-Mar-2020 Instruction Type:Patient Education Patient Instructions Indication:Abdominal pain Start:09-Mar-2020 Instruction Type:Provider Instructions for Treatment How to Access Health Informa tion Online using Patient Portal and [employer]rd [employer] Apps Indication:Abdominal pain Start:09-Mar-2020 Instruction Type:Patient Education How to access health informa tion online Indication:Nonsmoker Start:14-Jan-2020 Instruction Type:Patient Education How to access health informa tion online - Detail Indication:Nonsmoker Start:14-Jan-2020 Instruction Type:Patient Education Patient Instructions Indication:Nonsmoker Start:14-Jan-2020 Instruction Type:Provider Instructions for Treatment How to access health informa tion online Indication:Lymphocytosis Start:18-Sep-2019 Instruction Type:Patient Education How to access health informa tion online - Detail Indication:Lymphocytosis Start:18-Sep-2019 Instruction Type:Patient Education Patient Instructions Indication:Lymphocytosis Start:18-Sep-2019 Instruction Type:Provider Instructions for Treatment Patient Instructions Indication:Elevated hemoglobin A1c Start:18-Jun-2019 Instruction Type:Provider Instructions for Treatment How to access health informa tion online Indication:Abnormal lung function test Start:19-Mar-2019 Instruction Type:Patient Education How to access health informa tion online - Detail Indication:Abnormal lung function test Start:19-Mar-2019 Instruction Type:Patient Education Patient Instructions Indication:Abnormal lung function test Start:19-Mar-2019 Instruction Type:Provider Instructions for Treatment How to access health informa tion online Indication:[facility] WELLNESS EXAM Start:30-Jan-2019 Instruction Type:Patient Education How to access health informa tion online - Detail Indication:[facility] EXAM Start:30-Jan-2019 Instruction Type:Patient Education Patient Instructions Indication:[facility]LL[facility] EXAM Start:30-Jan-2019 Instruction Type:Provider Instructions for Treatment How to access health informa tion online Indication:Elevated hemoglobin A1c Start:29-Oct-2018 Instruction Type:Patient Education How to access health informa tion online - Detail Indication:Elevated hemoglobin A1c Start:29-Oct-2018 Instruction Type:Patient Education Patient Instructions Indication:Elevated hemoglobin A1c Start:29-Oct-2018 Instruction Type:Provider Instructions for Treatment How to access health informa tion online Indication:Syncope Start:20-Jul-2018 Instruction Type:Patient Education How to access health informa tion online - Detail Indication:Syncope Start:20-Jul-2018 Instruction Type:Patient Education Patient Instructions Indication:Syncope Start:20-Jul-2018 Instruction Type:Provider Instructions for Treatment How to access health informa tion online Indication:Syncope Start:09-Jul-2018 Instruction Type:Patient Education How to access health informa tion online - Detail Indication:Syncope Start:09-Jul-2018 Instruction Type:Patient Education Patient Instructions Indication:Syncope Start:09-Jul-2018 Instruction Type:Provider Instructions for Treatment How to access health informa tion online Indication:Syncope Start:29-Jun-2018 Instruction Type:Patient Education How to access health informa tion online - Detail Indication:Syncope Start:29-Jun-2018 Instruction Type:Patient Education Patient Instructions Indication:Syncope Start:29-Jun-2018 Instruction Type:Provider Instructions for Treatment How to access health informa tion online Indication:Lymphocytosis Start:01-Jun-2018 Instruction Type:Patient Education How to access health informa tion online - Detail Indication:Lymphocytosis Start:01-Jun-2018 Instruction Type:Patient Education Patient Instructions Indication:Lymphocytosis Start:01-Jun-2018 Instruction Type:Provider Instructions for Treatment How to access health informa tion online Indication:Family history of malignant neoplasm of gastrointestinal tract (Renamed from Family history of cancer of digestive system) Start:31-Jan-2018 Instruction Type:Patient Education How to access health informa tion online - Detail Indication:Family history of malignant neoplasm of gastrointestinal tract (Renamed from Family history of cancer of digestive system) Start:31-Jan-2018 Instruction Type:Patient Education Patient Instructions Indication:Family history of malignant neoplasm of gastrointestinal tract (Renamed from Family history of cancer of digestive system) Start:31-Jan-2018 Instruction Type:Provider Instructions for Treatment How to access health informa tion online Indication:BMI 21.0-21.9, adult Start:27-Sep-2017 Instruction Type:Patient Education How to access health informa tion online - Detail Indication:BMI 21.0-21.9, adult Start:27-Sep-2017 Instruction Type:Patient Education Patient Instructions Indication:BMI 21.0-21.9, adult Start:27-Sep-2017 Instruction Type:Provider Instructions for Treatment How to access health informa tion online Indication:BMI 22.0-22.9, adult Start:26-May-2017 Instruction Type:Patient Education How to access health informa tion online - Detail Indication:BMI 22.0-22.9, adult Start:26-May-2017 Instruction Type:Patient Education Patient Instructions Indication:BMI 22.0-22.9, adult Start:26-May-2017 Instruction Type:Provider Instructions for Treatment How to access health informa tion online Indication:Current nonsmoker (Renamed from Current non-smoker) Start:18-Jan-2017 Instruction Type:Patient Education How to access health informa tion online - Detail Indication:Current nonsmoker (Renamed from Current non-smoker) Start:18-Jan-2017 Instruction Type:Patient Education Patient Instructions Indication:Current nonsmoker (Renamed from Current non-smoker) Start:18-Jan-2017 Instruction Type:Provider Instructions for Treatment How to access health informa tion online Indication:[facility] EX[facility] Start:14-Sep-2016 Instruction Type:Patient Education How to access health informa tion online - Detail Indication:[facility] EX[facility] Start:14-Sep-2016 Instruction Type:Patient Education Patient Instructions Indication:[facility] EXAM Start:14-Sep-2016 Instruction Type:Provider Instructions for Treatment How to access health informa tion online Indication:Osteoporosis Start:15-Apr-2016 Instruction Type:Patient Education How to access health informa tion online - Detail Indication:Osteoporosis Start:15-Apr-2016 Instruction Type:Patient Education Patient Instructions Indication:Osteoporosis Start:15-Apr-2016 Instruction Type:Provider Instructions for Treatment How to access health informa tion online Indication:[facility] EXAM Start:11-Sep-2015 Instruction Type:Patient Education How to access health informa tion online - Detail Indication:[facility] EX[facility] Start:11-Sep-2015 Instruction Type:Patient Education Patient Instructions Indication:[facility] EX[facility] Start:11-Sep-2015 Instruction Type:Provider Instructions for Treatment How to access health informa tion online Indication:Low Back Pain Start:17-Feb-2015 Instruction Type:Patient Education How to access health informa tion online - Detail Indication:Low Back Pain Start:17-Feb-2015 Instruction Type:Patient Education Patient Instructions Indication:Low Back Pain Start:17-Feb-2015 Instruction Type:Provider Instructions for Treatment Patient Instructions Indication:Encounter for Medicare annual wellness exam Start:27-Aug-2014 Instruction Type:Provider Instructions for Treatment How to access health informa tion online Indication:Encounter for Medicare annual wellness exam Start:27-Aug-2014 Instruction Type:Patient Education How to access health informa tion online - Detail Indication:Encounter for Medicare annual wellness exam Start:27-Aug-2014 Instruction Type:Patient Education Patient Instructions Indication:Headache Start:23-Apr-2014 Instruction Type:Provider Instructions for Treatment Patient Instructions Indication:Osteopenia Start:02-Aug-2013 Instruction Type:Provider Instructions for Treatment Patient Instructions Indication:Ultrasound scan abnormal Start:22-Mar-2013 Instruction Type:Provider Instructions for Treatment Patient Instructions Indication:Abdominal pain, acute, generalized Start:13-Feb-2013 Instruction Type:Provider Instructions for Treatment Patient Instructions Indication:Encounter for Medicare annual wellness exam Start:20-Aug-2012 Instruction Type:Provider Instructions for Treatment Patient Instructions Indication:Elevated blood-pressure reading without diagnosis of hypertension Start:11-Jul-2012 Instruction Type:Provider Instructions for Treatment Patient Instructions Indication:Osteopenia Start:11-Apr-2012 Instruction Type:Provider Instructions for Treatment [facility]; [facility] Work Phone: Instructions* Name Dates Details Patient Instructions Indication:Nonsmoker Start:28-Jul-2020 Instruction Type:Provider Instructions for Treatment How to Access Health Informa tion Online using Patient Portal and [employer] Apps Indication:Nonsmoker Start:28-Jul-2020 Instruction Type:Patient Education Patient Instructions Indication:Elevated hemoglobin A1c Start:29-Apr-2020 Instruction Type:Provider Instructions for Treatment How to Access Health Informa tion Online using Patient Portal and [employer] Apps Indication:Elevated hemoglobin A1c Start:29-Apr-2020 Instruction Type:Patient Education Patient Instructions Indication:Abdominal pain Start:01-Apr-2020 Instruction Type:Provider Instructions for Treatment Patient Instructions Indication:Diarrhea Start:27-Mar-2020 Instruction Type:Provider Instructions for Treatment Patient Instructions Indication:Diarrhea Start:26-Mar-2020 Instruction Type:Provider Instructions for Treatment Patient Instructions Indication:Nonsmoker Start:23-Mar-2020 Instruction Type:Provider Instructions for Treatment How to Access Health Informa tion Online using Patient Portal and [employer]rd [employer] Apps Indication:Nonsmoker Start:23-Mar-2020 Instruction Type:Patient Education Patient Instructions Indication:Abdominal pain Start:09-Mar-2020 Instruction Type:Provider Instructions for Treatment How to Access Health Informa tion Online using Patient Portal and [employer]rd [employer] Apps Indication:Abdominal pain Start:09-Mar-2020 Instruction Type:Patient Education How to access health informa tion online Indication:Nonsmoker Start:14-Jan-2020 Instruction Type:Patient Education How to access health informa tion online - Detail Indication:Nonsmoker Start:14-Jan-2020 Instruction Type:Patient Education Patient Instructions Indication:Nonsmoker Start:14-Jan-2020 Instruction Type:Provider Instructions for Treatment How to access health informa tion online Indication:Lymphocytosis Start:18-Sep-2019 Instruction Type:Patient Education How to access health informa tion online - Detail Indication:Lymphocytosis Start:18-Sep-2019 Instruction Type:Patient Education Patient Instructions Indication:Lymphocytosis Start:18-Sep-2019 Instruction Type:Provider Instructions for Treatment Patient Instructions Indication:Elevated hemoglobin A1c Start:18-Jun-2019 Instruction Type:Provider Instructions for Treatment How to access health informa tion online Indication:Abnormal lung function test Start:19-Mar-2019 Instruction Type:Patient Education How to access health informa tion online - Detail Indication:Abnormal lung function test Start:19-Mar-2019 Instruction Type:Patient Education Patient Instructions Indication:Abnormal lung function test Start:19-Mar-2019 Instruction Type:Provider Instructions for Treatment How to access health informa tion online Indication:[facility] EXAM Start:30-Jan-2019 Instruction Type:Patient Education How to access health informa tion online - Detail Indication:[facility] EXAM Start:30-Jan-2019 Instruction Type:Patient Education Patient Instructions Indication:[facility] EXAM Start:30-Jan-2019 Instruction Type:Provider Instructions for Treatment How to access health informa tion online Indication:Elevated hemoglobin A1c Start:29-Oct-2018 Instruction Type:Patient Education How to access health informa tion online - Detail Indication:Elevated hemoglobin A1c Start:29-Oct-2018 Instruction Type:Patient Education Patient Instructions Indication:Elevated hemoglobin A1c Start:29-Oct-2018 Instruction Type:Provider Instructions for Treatment How to access health informa tion online Indication:Syncope Start:20-Jul-2018 Instruction Type:Patient Education How to access health informa tion online - Detail Indication:Syncope Start:20-Jul-2018 Instruction Type:Patient Education Patient Instructions Indication:Syncope Start:20-Jul-2018 Instruction Type:Provider Instructions for Treatment How to access health informa tion online Indication:Syncope Start:09-Jul-2018 Instruction Type:Patient Education How to access health informa tion online - Detail Indication:Syncope Start:09-Jul-2018 Instruction Type:Patient Education Patient Instructions Indication:Syncope Start:09-Jul-2018 Instruction Type:Provider Instructions for Treatment How to access health informa tion online Indication:Syncope Start:29-Jun-2018 Instruction Type:Patient Education How to access health informa tion online - Detail Indication:Syncope Start:29-Jun-2018 Instruction Type:Patient Education Patient Instructions Indication:Syncope Start:29-Jun-2018 Instruction Type:Provider Instructions for Treatment How to access health informa tion online Indication:Lymphocytosis Start:01-Jun-2018 Instruction Type:Patient Education How to access health informa tion online - Detail Indication:Lymphocytosis Start:01-Jun-2018 Instruction Type:Patient Education Patient Instructions Indication:Lymphocytosis Start:01-Jun-2018 Instruction Type:Provider Instructions for Treatment How to access health informa tion online Indication:Family history of malignant neoplasm of gastrointestinal tract (Renamed from Family history of cancer of digestive system) Start:31-Jan-2018 Instruction Type:Patient Education How to access health informa tion online - Detail Indication:Family history of malignant neoplasm of gastrointestinal tract (Renamed from Family history of cancer of digestive system) Start:31-Jan-2018 Instruction Type:Patient Education Patient Instructions Indication:Family history of malignant neoplasm of gastrointestinal tract (Renamed from Family history of cancer of digestive system) Start:31-Jan-2018 Instruction Type:Provider Instructions for Treatment How to access health informa tion online Indication:BMI 21.0-21.9, adult Start:27-Sep-2017 Instruction Type:Patient Education How to access health informa tion online - Detail Indication:BMI 21.0-21.9, adult Start:27-Sep-2017 Instruction Type:Patient Education Patient Instructions Indication:BMI 21.0-21.9, adult Start:27-Sep-2017 Instruction Type:Provider Instructions for Treatment How to access health informa tion online Indication:BMI 22.0-22.9, adult Start:26-May-2017 Instruction Type:Patient Education How to access health informa tion online - Detail Indication:BMI 22.0-22.9, adult Start:26-May-2017 Instruction Type:Patient Education Patient Instructions Indication:BMI 22.0-22.9, adult Start:26-May-2017 Instruction Type:Provider Instructions for Treatment How to access health informa tion online Indication:Current nonsmoker (Renamed from Current non-smoker) Start:18-Jan-2017 Instruction Type:Patient Education How to access health informa tion online - Detail Indication:Current nonsmoker (Renamed from Current non-smoker) Start:18-Jan-2017 Instruction Type:Patient Education Patient Instructions Indication:Current nonsmoker (Renamed from Current non-smoker) Start:18-Jan-2017 Instruction Type:Provider Instructions for Treatment How to access health informa tion online Indication:[facility]LL[facility] EXAM Start:14-Sep-2016 Instruction Type:Patient Education How to access health informa tion online - Detail Indication:[facility] EX[facility] Start:14-Sep-2016 Instruction Type:Patient Education Patient Instructions Indication:[facility] EX[facility] Start:14-Sep-2016 Instruction Type:Provider Instructions for Treatment How to access health informa tion online Indication:Osteoporosis Start:15-Apr-2016 Instruction Type:Patient Education How to access health informa tion online - Detail Indication:Osteoporosis Start:15-Apr-2016 Instruction Type:Patient Education Patient Instructions Indication:Osteoporosis Start:15-Apr-2016 Instruction Type:Provider Instructions for Treatment How to access health informa tion online Indication:[facility] EXAM Start:11-Sep-2015 Instruction Type:Patient Education How to access health informa tion online - Detail Indication:[facility] EX[facility] Start:11-Sep-2015 Instruction Type:Patient Education Patient Instructions Indication:[facility] EX[facility] Start:11-Sep-2015 Instruction Type:Provider Instructions for Treatment How to access health informa tion online Indication:Low Back Pain Start:17-Feb-2015 Instruction Type:Patient Education How to access health informa tion online - Detail Indication:Low Back Pain Start:17-Feb-2015 Instruction Type:Patient Education Patient Instructions Indication:Low Back Pain Start:17-Feb-2015 Instruction Type:Provider Instructions for Treatment Patient Instructions Indication:Encounter for Medicare annual wellness exam Start:27-Aug-2014 Instruction Type:Provider Instructions for Treatment How to access health informa tion online Indication:Encounter for Medicare annual wellness exam Start:27-Aug-2014 Instruction Type:Patient Education How to access health informa tion online - Detail Indication:Encounter for Medicare annual wellness exam Start:27-Aug-2014 Instruction Type:Patient Education Patient Instructions Indication:Headache Start:23-Apr-2014 Instruction Type:Provider Instructions for Treatment Patient Instructions Indication:Osteopenia Start:02-Aug-2013 Instruction Type:Provider Instructions for Treatment Patient Instructions Indication:Ultrasound scan abnormal Start:22-Mar-2013 Instruction Type:Provider Instructions for Treatment Patient Instructions Indication:Abdominal pain, acute, generalized Start:13-Feb-2013 Instruction Type:Provider Instructions for Treatment Patient Instructions Indication:Encounter for Medicare annual wellness exam Start:20-Aug-2012 Instruction Type:Provider Instructions for Treatment Patient Instructions Indication:Elevated blood-pressure reading without diagnosis of hypertension Start:11-Jul-2012 Instruction Type:Provider Instructions for Treatment Patient Instructions Indication:Osteopenia Start:11-Apr-2012 Instruction Type:Provider Instructions for Treatment [facility]; [facility] Work Phone: Instructions* Name Dates Details Patient Instructions Indication[facility] Start:15-Jan-2021 Instruction Type:Provider Instructions for Treatment How to Access Health Informa tion Online using Patient Portal and [employer]rd [employer] Apps Indication:[facility]LLNESS EXAM Start:15-Jan-2021 Instruction Type:Patient Education Patient Instructions Indication:Anemia Start:02-Nov-2020 Instruction Type:Provider Instructions for Treatment How to Access Health Informa tion Online using Patient Portal and [employer]rd [employer] Apps Indication:Anemia Start:02-Nov-2020 Instruction Type:Patient Education Patient Instructions Indication:Nonsmoker Start:28-Jul-2020 Instruction Type:Provider Instructions for Treatment How to Access Health Informa tion Online using Patient Portal and [employer]rd [employer] Apps Indication:Nonsmoker Start:28-Jul-2020 Instruction Type:Patient Education Patient Instructions Indication:Elevated hemoglobin A1c Start:29-Apr-2020 Instruction Type:Provider Instructions for Treatment How to Access Health Informa tion Online using Patient Portal and [employer]rd [employer] Apps Indication:Elevated hemoglobin A1c Start:29-Apr-2020 Instruction Type:Patient Education Patient Instructions Indication:Abdominal pain Start:01-Apr-2020 Instruction Type:Provider Instructions for Treatment Patient Instructions Indication:Diarrhea Start:27-Mar-2020 Instruction Type:Provider Instructions for Treatment Patient Instructions Indication:Diarrhea Start:26-Mar-2020 Instruction Type:Provider Instructions for Treatment Patient Instructions Indication:Nonsmoker Start:23-Mar-2020 Instruction Type:Provider Instructions for Treatment How to Access Health Informa tion Online using Patient Portal and [employer] Apps Indication:Nonsmoker Start:23-Mar-2020 Instruction Type:Patient Education Patient Instructions Indication:Abdominal pain Start:09-Mar-2020 Instruction Type:Provider Instructions for Treatment How to Access Health Informa tion Online using Patient Portal and [employer] Apps Indication:Abdominal pain Start:09-Mar-2020 Instruction Type:Patient Education How to access health informa tion online Indication:Nonsmoker Start:14-Jan-2020 Instruction Type:Patient Education How to access health informa tion online - Detail Indication:Nonsmoker Start:14-Jan-2020 Instruction Type:Patient Education Patient Instructions Indication:Nonsmoker Start:14-Jan-2020 Instruction Type:Provider Instructions for Treatment How to access health informa tion online Indication:Lymphocytosis Start:18-Sep-2019 Instruction Type:Patient Education How to access health informa tion online - Detail Indication:Lymphocytosis Start:18-Sep-2019 Instruction Type:Patient Education Patient Instructions Indication:Lymphocytosis Start:18-Sep-2019 Instruction Type:Provider Instructions for Treatment Patient Instructions Indication:Elevated hemoglobin A1c Start:18-Jun-2019 Instruction Type:Provider Instructions for Treatment How to access health informa tion online Indication:Abnormal lung function test Start:19-Mar-2019 Instruction Type:Patient Education How to access health informa tion online - Detail Indication:Abnormal lung function test Start:19-Mar-2019 Instruction Type:Patient Education Patient Instructions Indication:Abnormal lung function test Start:19-Mar-2019 Instruction Type:Provider Instructions for Treatment How to access health informa tion online Indication:[facility] EX[facility] Start:30-Jan-2019 Instruction Type:Patient Education How to access health informa tion online - Detail Indication:[facility] EX[facility] Start:30-Jan-2019 Instruction Type:Patient Education Patient Instructions Indication:[facility] EX[facility] Start:30-Jan-2019 Instruction Type:Provider Instructions for Treatment How to access health informa tion online Indication:Elevated hemoglobin A1c Start:29-Oct-2018 Instruction Type:Patient Education How to access health informa tion online - Detail Indication:Elevated hemoglobin A1c Start:29-Oct-2018 Instruction Type:Patient Education Patient Instructions Indication:Elevated hemoglobin A1c Start:29-Oct-2018 Instruction Type:Provider Instructions for Treatment How to access health informa tion online Indication:Syncope Start:20-Jul-2018 Instruction Type:Patient Education How to access health informa tion online - Detail Indication:Syncope Start:20-Jul-2018 Instruction Type:Patient Education Patient Instructions Indication:Syncope Start:20-Jul-2018 Instruction Type:Provider Instructions for Treatment How to access health informa tion online Indication:Syncope Start:09-Jul-2018 Instruction Type:Patient Education How to access health informa tion online - Detail Indication:Syncope Start:09-Jul-2018 Instruction Type:Patient Education Patient Instructions Indication:Syncope Start:09-Jul-2018 Instruction Type:Provider Instructions for Treatment How to access health informa tion online Indication:Syncope Start:29-Jun-2018 Instruction Type:Patient Education How to access health informa tion online - Detail Indication:Syncope Start:29-Jun-2018 Instruction Type:Patient Education Patient Instructions Indication:Syncope Start:29-Jun-2018 Instruction Type:Provider Instructions for Treatment How to access health informa tion online Indication:Lymphocytosis Start:01-Jun-2018 Instruction Type:Patient Education How to access health informa tion online - Detail Indication:Lymphocytosis Start:01-Jun-2018 Instruction Type:Patient Education Patient Instructions Indication:Lymphocytosis Start:01-Jun-2018 Instruction Type:Provider Instructions for Treatment How to access health informa tion online Indication:Family history of malignant neoplasm of gastrointestinal tract (Renamed from Family history of cancer of digestive system) Start:31-Jan-2018 Instruction Type:Patient Education How to access health informa tion online - Detail Indication:Family history of malignant neoplasm of gastrointestinal tract (Renamed from Family history of cancer of digestive system) Start:31-Jan-2018 Instruction Type:Patient Education Patient Instructions Indication:Family history of malignant neoplasm of gastrointestinal tract (Renamed from Family history of cancer of digestive system) Start:31-Jan-2018 Instruction Type:Provider Instructions for Treatment How to access health informa tion online Indication:BMI 21.0-21.9, adult Start:27-Sep-2017 Instruction Type:Patient Education How to access health informa tion online - Detail Indication:BMI 21.0-21.9, adult Start:27-Sep-2017 Instruction Type:Patient Education Patient Instructions Indication:BMI 21.0-21.9, adult Start:27-Sep-2017 Instruction Type:Provider Instructions for Treatment How to access health informa tion online Indication:BMI 22.0-22.9, adult Start:26-May-2017 Instruction Type:Patient Education How to access health informa tion online - Detail Indication:BMI 22.0-22.9, adult Start:26-May-2017 Instruction Type:Patient Education Patient Instructions Indication:BMI 22.0-22.9, adult Start:26-May-2017 Instruction Type:Provider Instructions for Treatment How to access health informa tion online Indication:Current nonsmoker (Renamed from Current non-smoker) Start:18-Jan-2017 Instruction Type:Patient Education How to access health informa tion online - Detail Indication:Current nonsmoker (Renamed from Current non-smoker) Start:18-Jan-2017 Instruction Type:Patient Education Patient Instructions Indication:Current nonsmoker (Renamed from Current non-smoker) Start:18-Jan-2017 Instruction Type:Provider Instructions for Treatment How to access health informa tion online Indication:[facility] EX[facility] Start:14-Sep-2016 Instruction Type:Patient Education How to access health informa tion online - Detail Indication:[facility] EX[facility] Start:14-Sep-2016 Instruction Type:Patient Education Patient Instructions Indication:[facility] EX[facility] Start:14-Sep-2016 Instruction Type:Provider Instructions for Treatment How to access health informa tion online Indication:Osteoporosis Start:15-Apr-2016 Instruction Type:Patient Education How to access health informa tion online - Detail Indication:Osteoporosis Start:15-Apr-2016 Instruction Type:Patient Education Patient Instructions Indication:Osteoporosis Start:15-Apr-2016 Instruction Type:Provider Instructions for Treatment How to access health informa tion online Indication:[facility] EX[facility] Start:11-Sep-2015 Instruction Type:Patient Education How to access health informa tion online - Detail Indication:[facility] EX[facility] Start:11-Sep-2015 Instruction Type:Patient Education Patient Instructions Indication:[facility] EX[facility] Start:11-Sep-2015 Instruction Type:Provider Instructions for Treatment How to access health informa tion online Indication:Low Back Pain Start:17-Feb-2015 Instruction Type:Patient Education How to access health informa tion online - Detail Indication:Low Back Pain Start:17-Feb-2015 Instruction Type:Patient Education Patient Instructions Indication:Low Back Pain Start:17-Feb-2015 Instruction Type:Provider Instructions for Treatment Patient Instructions Indication:Encounter for Medicare annual wellness exam Start:27-Aug-2014 Instruction Type:Provider Instructions for Treatment How to access health informa tion online Indication:Encounter for Medicare annual wellness exam Start:27-Aug-2014 Instruction Type:Patient Education How to access health informa tion online - Detail Indication:Encounter for Medicare annual wellness exam Start:27-Aug-2014 Instruction Type:Patient Education Patient Instructions Indication:Headache Start:23-Apr-2014 Instruction Type:Provider Instructions for Treatment Patient Instructions Indication:Osteopenia Start:02-Aug-2013 Instruction Type:Provider Instructions for Treatment Patient Instructions Indication:Ultrasound scan abnormal Start:22-Mar-2013 Instruction Type:Provider Instructions for Treatment Patient Instructions Indication:Abdominal pain, acute, generalized Start:13-Feb-2013 Instruction Type:Provider Instructions for Treatment Patient Instructions Indication:Encounter for Medicare annual wellness exam Start:20-Aug-2012 Instruction Type:Provider Instructions for Treatment Patient Instructions Indication:Elevated blood-pressure reading without diagnosis of hypertension Start:11-Jul-2012 Instruction Type:Provider Instructions for Treatment Patient Instructions Indication:Osteopenia Start:11-Apr-2012 Instruction Type:Provider Instructions for Treatment [facility]; [facility] Work Phone: Instructions* Name Dates Details Patient Instructions Indication:Elevated hemoglobin A1c Start:26-May-2021 Instruction Type:Provider Instructions for Treatment How to Access Health Informa tion Online using Patient Portal and [employer]rd [employer] Apps Indication:Elevated hemoglobin A1c Start:26-May-2021 Instruction Type:Patient Education Patient Instructions Indication:[facility] EX[facility] Start:15-Jan-2021 Instruction Type:Provider Instructions for Treatment How to Access Health Informa tion Online using Patient Portal and [employer]rd [employer] Apps Indication:[facility]LL[facility] EXAM Start:15-Jan-2021 Instruction Type:Patient Education Patient Instructions Indication:Anemia Start:02-Nov-2020 Instruction Type:Provider Instructions for Treatment How to Access Health Informa tion Online using Patient Portal and [employer]rd [employer] Apps Indication:Anemia Start:02-Nov-2020 Instruction Type:Patient Education Patient Instructions Indication:Nonsmoker Start:28-Jul-2020 Instruction Type:Provider Instructions for Treatment How to Access Health Informa tion Online using Patient Portal and [employer] Apps Indication:Nonsmoker Start:28-Jul-2020 Instruction Type:Patient Education Patient Instructions Indication:Elevated hemoglobin A1c Start:29-Apr-2020 Instruction Type:Provider Instructions for Treatment How to Access Health Informa tion Online using Patient Portal and [employer]rd [employer] Apps Indication:Elevated hemoglobin A1c Start:29-Apr-2020 Instruction Type:Patient Education Patient Instructions Indication:Abdominal pain Start:01-Apr-2020 Instruction Type:Provider Instructions for Treatment Patient Instructions Indication:Diarrhea Start:27-Mar-2020 Instruction Type:Provider Instructions for Treatment Patient Instructions Indication:Diarrhea Start:26-Mar-2020 Instruction Type:Provider Instructions for Treatment Patient Instructions Indication:Nonsmoker Start:23-Mar-2020 Instruction Type:Provider Instructions for Treatment How to Access Health Informa tion Online using Patient Portal and [employer]rd [employer] Apps Indication:Nonsmoker Start:23-Mar-2020 Instruction Type:Patient Education Patient Instructions Indication:Abdominal pain Start:09-Mar-2020 Instruction Type:Provider Instructions for Treatment How to Access Health Informa tion Online using Patient Portal and [employer] Apps Indication:Abdominal pain Start:09-Mar-2020 Instruction Type:Patient Education How to access health informa tion online Indication:Nonsmoker Start:14-Jan-2020 Instruction Type:Patient Education How to access health informa tion online - Detail Indication:Nonsmoker Start:14-Jan-2020 Instruction Type:Patient Education Patient Instructions Indication:Nonsmoker Start:14-Jan-2020 Instruction Type:Provider Instructions for Treatment How to access health informa tion online Indication:Lymphocytosis Start:18-Sep-2019 Instruction Type:Patient Education How to access health informa tion online - Detail Indication:Lymphocytosis Start:18-Sep-2019 Instruction Type:Patient Education Patient Instructions Indication:Lymphocytosis Start:18-Sep-2019 Instruction Type:Provider Instructions for Treatment Patient Instructions Indication:Elevated hemoglobin A1c Start:18-Jun-2019 Instruction Type:Provider Instructions for Treatment How to access health informa tion online Indication:Abnormal lung function test Start:19-Mar-2019 Instruction Type:Patient Education How to access health informa tion online - Detail Indication:Abnormal lung function test Start:19-Mar-2019 Instruction Type:Patient Education Patient Instructions Indication:Abnormal lung function test Start:19-Mar-2019 Instruction Type:Provider Instructions for Treatment How to access health informa tion online Indication:[facility] EXAM Start:30-Jan-2019 Instruction Type:Patient Education How to access health informa tion online - Detail Indication:[facility] EX[facility] Start:30-Jan-2019 Instruction Type:Patient Education Patient Instructions Indication:[facility] EXAM Start:30-Jan-2019 Instruction Type:Provider Instructions for Treatment How to access health informa tion online Indication:Elevated hemoglobin A1c Start:29-Oct-2018 Instruction Type:Patient Education How to access health informa tion online - Detail Indication:Elevated hemoglobin A1c Start:29-Oct-2018 Instruction Type:Patient Education Patient Instructions Indication:Elevated hemoglobin A1c Start:29-Oct-2018 Instruction Type:Provider Instructions for Treatment How to access health informa tion online Indication:Syncope Start:20-Jul-2018 Instruction Type:Patient Education How to access health informa tion online - Detail Indication:Syncope Start:20-Jul-2018 Instruction Type:Patient Education Patient Instructions Indication:Syncope Start:20-Jul-2018 Instruction Type:Provider Instructions for Treatment How to access health informa tion online Indication:Syncope Start:09-Jul-2018 Instruction Type:Patient Education How to access health informa tion online - Detail Indication:Syncope Start:09-Jul-2018 Instruction Type:Patient Education Patient Instructions Indication:Syncope Start:09-Jul-2018 Instruction Type:Provider Instructions for Treatment How to access health informa tion online Indication:Syncope Start:29-Jun-2018 Instruction Type:Patient Education How to access health informa tion online - Detail Indication:Syncope Start:29-Jun-2018 Instruction Type:Patient Education Patient Instructions Indication:Syncope Start:29-Jun-2018 Instruction Type:Provider Instructions for Treatment How to access health informa tion online Indication:Lymphocytosis Start:01-Jun-2018 Instruction Type:Patient Education How to access health informa tion online - Detail Indication:Lymphocytosis Start:01-Jun-2018 Instruction Type:Patient Education Patient Instructions Indication:Lymphocytosis Start:01-Jun-2018 Instruction Type:Provider Instructions for Treatment How to access health informa tion online Indication:Family history of malignant neoplasm of gastrointestinal tract (Renamed from Family history of cancer of digestive system) Start:31-Jan-2018 Instruction Type:Patient Education How to access health informa tion online - Detail Indication:Family history of malignant neoplasm of gastrointestinal tract (Renamed from Family history of cancer of digestive system) Start:31-Jan-2018 Instruction Type:Patient Education Patient Instructions Indication:Family history of malignant neoplasm of gastrointestinal tract (Renamed from Family history of cancer of digestive system) Start:31-Jan-2018 Instruction Type:Provider Instructions for Treatment How to access health informa tion online Indication:BMI 21.0-21.9, adult Start:27-Sep-2017 Instruction Type:Patient Education How to access health informa tion online - Detail Indication:BMI 21.0-21.9, adult Start:27-Sep-2017 Instruction Type:Patient Education Patient Instructions Indication:BMI 21.0-21.9, adult Start:27-Sep-2017 Instruction Type:Provider Instructions for Treatment How to access health informa tion online Indication:BMI 22.0-22.9, adult Start:26-May-2017 Instruction Type:Patient Education How to access health informa tion online - Detail Indication:BMI 22.0-22.9, adult Start:26-May-2017 Instruction Type:Patient Education Patient Instructions Indication:BMI 22.0-22.9, adult Start:26-May-2017 Instruction Type:Provider Instructions for Treatment How to access health informa tion online Indication:Current nonsmoker (Renamed from Current non-smoker) Start:18-Jan-2017 Instruction Type:Patient Education How to access health informa tion online - Detail Indication:Current nonsmoker (Renamed from Current non-smoker) Start:18-Jan-2017 Instruction Type:Patient Education Patient Instructions Indication:Current nonsmoker (Renamed from Current non-smoker) Start:18-Jan-2017 Instruction Type:Provider Instructions for Treatment How to access health informa tion online Indication:[facility] EXAM Start:14-Sep-2016 Instruction Type:Patient Education How to access health informa tion online - Detail Indication:[facility] EXAM Start:14-Sep-2016 Instruction Type:Patient Education Patient Instructions Indication:[facility] EXAM Start:14-Sep-2016 Instruction Type:Provider Instructions for Treatment How to access health informa tion online Indication:Osteoporosis Start:15-Apr-2016 Instruction Type:Patient Education How to access health informa tion online - Detail Indication:Osteoporosis Start:15-Apr-2016 Instruction Type:Patient Education Patient Instructions Indication:Osteoporosis Start:15-Apr-2016 Instruction Type:Provider Instructions for Treatment How to access health informa tion online Indication:[facility] EXAM Start:11-Sep-2015 Instruction Type:Patient Education How to access health informa tion online - Detail Indication:[facility] EX[facility] Start:11-Sep-2015 Instruction Type:Patient Education Patient Instructions Indication:[facility] EX[facility] Start:11-Sep-2015 Instruction Type:Provider Instructions for Treatment How to access health informa tion online Indication:Low Back Pain Start:17-Feb-2015 Instruction Type:Patient Education How to access health informa tion online - Detail Indication:Low Back Pain Start:17-Feb-2015 Instruction Type:Patient Education Patient Instructions Indication:Low Back Pain Start:17-Feb-2015 Instruction Type:Provider Instructions for Treatment Patient Instructions Indication:Encounter for Medicare annual wellness exam Start:27-Aug-2014 Instruction Type:Provider Instructions for Treatment How to access health informa tion online Indication:Encounter for Medicare annual wellness exam Start:27-Aug-2014 Instruction Type:Patient Education How to access health informa tion online - Detail Indication:Encounter for Medicare annual wellness exam Start:27-Aug-2014 Instruction Type:Patient Education Patient Instructions Indication:Headache Start:23-Apr-2014 Instruction Type:Provider Instructions for Treatment Patient Instructions Indication:Osteopenia Start:02-Aug-2013 Instruction Type:Provider Instructions for Treatment Patient Instructions Indication:Ultrasound scan abnormal Start:22-Mar-2013 Instruction Type:Provider Instructions for Treatment Patient Instructions Indication:Abdominal pain, acute, generalized Start:13-Feb-2013 Instruction Type:Provider Instructions for Treatment Patient Instructions Indication:Encounter for Medicare annual wellness exam Start:20-Aug-2012 Instruction Type:Provider Instructions for Treatment Patient Instructions Indication:Elevated blood-pressure reading without diagnosis of hypertension Start:11-Jul-2012 Instruction Type:Provider Instructions for Treatment Patient Instructions Indication:Osteopenia Start:11-Apr-2012 Instruction Type:Provider Instructions for Treatment [facility]; [facility] Work Phone: Instructions* Name Dates Details Patient Instructions Indication:BMI 22.0-22.9, adult Start:10-Sep-2021 Instruction Type:Provider Instructions for Treatment How to Access Health Informa tion Online using Patient Portal and [employer]rd [employer] Apps Indication:BMI 22.0-22.9, adult Start:10-Sep-2021 Instruction Type:Patient Education Patient Instructions Indication:Elevated hemoglobin A1c Start:26-May-2021 Instruction Type:Provider Instructions for Treatment How to Access Health Informa tion Online using Patient Portal and [employer]rd [employer] Apps Indication:Elevated hemoglobin A1c Start:26-May-2021 Instruction Type:Patient Education Patient Instructions Indication:[facility] EX[facility] Start:15-Jan-2021 Instruction Type:Provider Instructions for Treatment How to Access Health Informa tion Online using Patient Portal and [employer]rd [employer] Apps Indication:[facility] EX[facility] Start:15-Jan-2021 Instruction Type:Patient Education Patient Instructions Indication:Anemia Start:02-Nov-2020 Instruction Type:Provider Instructions for Treatment How to Access Health Informa tion Online using Patient Portal and [employer]rd [employer] Apps Indication:Anemia Start:02-Nov-2020 Instruction Type:Patient Education Patient Instructions Indication:Nonsmoker Start:28-Jul-2020 Instruction Type:Provider Instructions for Treatment How to Access Health Informa tion Online using Patient Portal and [employer]rd [employer] Apps Indication:Nonsmoker Start:28-Jul-2020 Instruction Type:Patient Education Patient Instructions Indication:Elevated hemoglobin A1c Start:29-Apr-2020 Instruction Type:Provider Instructions for Treatment How to Access Health Informa tion Online using Patient Portal and [employer]rd [employer] Apps Indication:Elevated hemoglobin A1c Start:29-Apr-2020 Instruction Type:Patient Education Patient Instructions Indication:Abdominal pain Start:01-Apr-2020 Instruction Type:Provider Instructions for Treatment Patient Instructions Indication:Diarrhea Start:27-Mar-2020 Instruction Type:Provider Instructions for Treatment Patient Instructions Indication:Diarrhea Start:26-Mar-2020 Instruction Type:Provider Instructions for Treatment Patient Instructions Indication:Nonsmoker Start:23-Mar-2020 Instruction Type:Provider Instructions for Treatment How to Access Health Informa tion Online using Patient Portal and [employer]rd [employer] Apps Indication:Nonsmoker Start:23-Mar-2020 Instruction Type:Patient Education Patient Instructions Indication:Abdominal pain Start:09-Mar-2020 Instruction Type:Provider Instructions for Treatment How to Access Health Informa tion Online using Patient Portal and [employer]rd [employer] Apps Indication:Abdominal pain Start:09-Mar-2020 Instruction Type:Patient Education How to access health informa tion online Indication:Nonsmoker Start:14-Jan-2020 Instruction Type:Patient Education How to access health informa tion online - Detail Indication:Nonsmoker Start:14-Jan-2020 Instruction Type:Patient Education Patient Instructions Indication:Nonsmoker Start:14-Jan-2020 Instruction Type:Provider Instructions for Treatment How to access health informa tion online Indication:Lymphocytosis Start:18-Sep-2019 Instruction Type:Patient Education How to access health informa tion online - Detail Indication:Lymphocytosis Start:18-Sep-2019 Instruction Type:Patient Education Patient Instructions Indication:Lymphocytosis Start:18-Sep-2019 Instruction Type:Provider Instructions for Treatment Patient Instructions Indication:Elevated hemoglobin A1c Start:18-Jun-2019 Instruction Type:Provider Instructions for Treatment How to access health informa tion online Indication:Abnormal lung function test Start:19-Mar-2019 Instruction Type:Patient Education How to access health informa tion online - Detail Indication:Abnormal lung function test Start:19-Mar-2019 Instruction Type:Patient Education Patient Instructions Indication:Abnormal lung function test Start:19-Mar-2019 Instruction Type:Provider Instructions for Treatment How to access health informa tion online Indication:[facility] EX[facility] Start:30-Jan-2019 Instruction Type:Patient Education How to access health informa tion online - Detail Indication:[facility] EX[facility] Start:30-Jan-2019 Instruction Type:Patient Education Patient Instructions Indication:[facility] EX[facility] Start:30-Jan-2019 Instruction Type:Provider Instructions for Treatment How to access health informa tion online Indication:Elevated hemoglobin A1c Start:29-Oct-2018 Instruction Type:Patient Education How to access health informa tion online - Detail Indication:Elevated hemoglobin A1c Start:29-Oct-2018 Instruction Type:Patient Education Patient Instructions Indication:Elevated hemoglobin A1c Start:29-Oct-2018 Instruction Type:Provider Instructions for Treatment How to access health informa tion online Indication:Syncope Start:20-Jul-2018 Instruction Type:Patient Education How to access health informa tion online - Detail Indication:Syncope Start:20-Jul-2018 Instruction Type:Patient Education Patient Instructions Indication:Syncope Start:20-Jul-2018 Instruction Type:Provider Instructions for Treatment How to access health informa tion online Indication:Syncope Start:09-Jul-2018 Instruction Type:Patient Education How to access health informa tion online - Detail Indication:Syncope Start:09-Jul-2018 Instruction Type:Patient Education Patient Instructions Indication:Syncope Start:09-Jul-2018 Instruction Type:Provider Instructions for Treatment How to access health informa tion online Indication:Syncope Start:29-Jun-2018 Instruction Type:Patient Education How to access health informa tion online - Detail Indication:Syncope Start:29-Jun-2018 Instruction Type:Patient Education Patient Instructions Indication:Syncope Start:29-Jun-2018 Instruction Type:Provider Instructions for Treatment How to access health informa tion online Indication:Lymphocytosis Start:01-Jun-2018 Instruction Type:Patient Education How to access health informa tion online - Detail Indication:Lymphocytosis Start:01-Jun-2018 Instruction Type:Patient Education Patient Instructions Indication:Lymphocytosis Start:01-Jun-2018 Instruction Type:Provider Instructions for Treatment How to access health informa tion online Indication:Family history of malignant neoplasm of gastrointestinal tract (Renamed from Family history of cancer of digestive system) Start:31-Jan-2018 Instruction Type:Patient Education How to access health informa tion online - Detail Indication:Family history of malignant neoplasm of gastrointestinal tract (Renamed from Family history of cancer of digestive system) Start:31-Jan-2018 Instruction Type:Patient Education Patient Instructions Indication:Family history of malignant neoplasm of gastrointestinal tract (Renamed from Family history of cancer of digestive system) Start:31-Jan-2018 Instruction Type:Provider Instructions for Treatment How to access health informa tion online Indication:BMI 21.0-21.9, adult Start:27-Sep-2017 Instruction Type:Patient Education How to access health informa tion online - Detail Indication:BMI 21.0-21.9, adult Start:27-Sep-2017 Instruction Type:Patient Education Patient Instructions Indication:BMI 21.0-21.9, adult Start:27-Sep-2017 Instruction Type:Provider Instructions for Treatment How to access health informa tion online Indication:BMI 22.0-22.9, adult Start:26-May-2017 Instruction Type:Patient Education How to access health informa tion online - Detail Indication:BMI 22.0-22.9, adult Start:26-May-2017 Instruction Type:Patient Education Patient Instructions Indication:BMI 22.0-22.9, adult Start:26-May-2017 Instruction Type:Provider Instructions for Treatment How to access health informa tion online Indication:Current nonsmoker (Renamed from Current non-smoker) Start:18-Jan-2017 Instruction Type:Patient Education How to access health informa tion online - Detail Indication:Current nonsmoker (Renamed from Current non-smoker) Start:18-Jan-2017 Instruction Type:Patient Education Patient Instructions Indication:Current nonsmoker (Renamed from Current non-smoker) Start:18-Jan-2017 Instruction Type:Provider Instructions for Treatment How to access health informa tion online Indication:[facility] EX[facility] Start:14-Sep-2016 Instruction Type:Patient Education How to access health informa tion online - Detail Indication:[facility] EX[facility] Start:14-Sep-2016 Instruction Type:Patient Education Patient Instructions Indication:[facility] EX[facility] Start:14-Sep-2016 Instruction Type:Provider Instructions for Treatment How to access health informa tion online Indication:Osteoporosis Start:15-Apr-2016 Instruction Type:Patient Education How to access health informa tion online - Detail Indication:Osteoporosis Start:15-Apr-2016 Instruction Type:Patient Education Patient Instructions Indication:Osteoporosis Start:15-Apr-2016 Instruction Type:Provider Instructions for Treatment How to access health informa tion online Indication:[facility] EX[facility] Start:11-Sep-2015 Instruction Type:Patient Education How to access health informa tion online - Detail Indication:[facility] EX[facility] Start:11-Sep-2015 Instruction Type:Patient Education Patient Instructions Indication:[facility] EX[facility] Start:11-Sep-2015 Instruction Type:Provider Instructions for Treatment How to access health informa tion online Indication:Low Back Pain Start:17-Feb-2015 Instruction Type:Patient Education How to access health informa tion online - Detail Indication:Low Back Pain Start:17-Feb-2015 Instruction Type:Patient Education Patient Instructions Indication:Low Back Pain Start:17-Feb-2015 Instruction Type:Provider Instructions for Treatment Patient Instructions Indication:Encounter for Medicare annual wellness exam Start:27-Aug-2014 Instruction Type:Provider Instructions for Treatment How to access health informa tion online Indication:Encounter for Medicare annual wellness exam Start:27-Aug-2014 Instruction Type:Patient Education How to access health informa tion online - Detail Indication:Encounter for Medicare annual wellness exam Start:27-Aug-2014 Instruction Type:Patient Education Patient Instructions Indication:Headache Start:23-Apr-2014 Instruction Type:Provider Instructions for Treatment Patient Instructions Indication:Osteopenia Start:02-Aug-2013 Instruction Type:Provider Instructions for Treatment Patient Instructions Indication:Ultrasound scan abnormal Start:22-Mar-2013 Instruction Type:Provider Instructions for Treatment Patient Instructions Indication:Abdominal pain, acute, generalized Start:13-Feb-2013 Instruction Type:Provider Instructions for Treatment Patient Instructions Indication:Encounter for Medicare annual wellness exam Start:20-Aug-2012 Instruction Type:Provider Instructions for Treatment Patient Instructions Indication:Elevated blood-pressure reading without diagnosis of hypertension Start:11-Jul-2012 Instruction Type:Provider Instructions for Treatment Patient Instructions Indication:Osteopenia Start:11-Apr-2012 Instruction Type:Provider Instructions for Treatment [facility]; [facility] Work Phone: Instructions* Name Dates Details Patient Instructions Indication:BMI 22.0-22.9, adult Start:10-Sep-2021 Instruction Type:Provider Instructions for Treatment How to Access Health Informa tion Online using Patient Portal and [employer]rd [employer] Apps Indication:BMI 22.0-22.9, adult Start:10-Sep-2021 Instruction Type:Patient Education Patient Instructions Indication:Elevated hemoglobin A1c Start:26-May-2021 Instruction Type:Provider Instructions for Treatment How to Access Health Informa tion Online using Patient Portal and [employer]rd [employer] Apps Indication:Elevated hemoglobin A1c Start:26-May-2021 Instruction Type:Patient Education Patient Instructions Indication:[facility] EXAM Start:15-Jan-2021 Instruction Type:Provider Instructions for Treatment How to Access Health Informa tion Online using Patient Portal and [employer]rd [employer] Apps Indication:[facility] EXAM Start:15-Jan-2021 Instruction Type:Patient Education Patient Instructions Indication:Anemia Start:02-Nov-2020 Instruction Type:Provider Instructions for Treatment How to Access Health Informa tion Online using Patient Portal and [employer]rd [employer] Apps Indication:Anemia Start:02-Nov-2020 Instruction Type:Patient Education Patient Instructions Indication:Nonsmoker Start:28-Jul-2020 Instruction Type:Provider Instructions for Treatment How to Access Health Informa tion Online using Patient Portal and [employer]rd [employer] Apps Indication:Nonsmoker Start:28-Jul-2020 Instruction Type:Patient Education Patient Instructions Indication:Elevated hemoglobin A1c Start:29-Apr-2020 Instruction Type:Provider Instructions for Treatment How to Access Health Informa tion Online using Patient Portal and [employer] Apps Indication:Elevated hemoglobin A1c Start:29-Apr-2020 Instruction Type:Patient Education Patient Instructions Indication:Abdominal pain Start:01-Apr-2020 Instruction Type:Provider Instructions for Treatment Patient Instructions Indication:Diarrhea Start:27-Mar-2020 Instruction Type:Provider Instructions for Treatment Patient Instructions Indication:Diarrhea Start:26-Mar-2020 Instruction Type:Provider Instructions for Treatment Patient Instructions Indication:Nonsmoker Start:23-Mar-2020 Instruction Type:Provider Instructions for Treatment How to Access Health Informa tion Online using Patient Portal and [employer] Apps Indication:Nonsmoker Start:23-Mar-2020 Instruction Type:Patient Education Patient Instructions Indication:Abdominal pain Start:09-Mar-2020 Instruction Type:Provider Instructions for Treatment How to Access Health Informa tion Online using Patient Portal and [employer] Apps Indication:Abdominal pain Start:09-Mar-2020 Instruction Type:Patient Education How to access health informa tion online Indication:Nonsmoker Start:14-Jan-2020 Instruction Type:Patient Education How to access health informa tion online - Detail Indication:Nonsmoker Start:14-Jan-2020 Instruction Type:Patient Education Patient Instructions Indication:Nonsmoker Start:14-Jan-2020 Instruction Type:Provider Instructions for Treatment How to access health informa tion online Indication:Lymphocytosis Start:18-Sep-2019 Instruction Type:Patient Education How to access health informa tion online - Detail Indication:Lymphocytosis Start:18-Sep-2019 Instruction Type:Patient Education Patient Instructions Indication:Lymphocytosis Start:18-Sep-2019 Instruction Type:Provider Instructions for Treatment Patient Instructions Indication:Elevated hemoglobin A1c Start:18-Jun-2019 Instruction Type:Provider Instructions for Treatment How to access health informa tion online Indication:Abnormal lung function test Start:19-Mar-2019 Instruction Type:Patient Education How to access health informa tion online - Detail Indication:Abnormal lung function test Start:19-Mar-2019 Instruction Type:Patient Education Patient Instructions Indication:Abnormal lung function test Start:19-Mar-2019 Instruction Type:Provider Instructions for Treatment How to access health informa tion online Indication:[facility] EX[facility] Start:30-Jan-2019 Instruction Type:Patient Education How to access health informa tion online - Detail Indication:[facility] EX[facility] Start:30-Jan-2019 Instruction Type:Patient Education Patient Instructions Indication:[facility] EXAM Start:30-Jan-2019 Instruction Type:Provider Instructions for Treatment How to access health informa tion online Indication:Elevated hemoglobin A1c Start:29-Oct-2018 Instruction Type:Patient Education How to access health informa tion online - Detail Indication:Elevated hemoglobin A1c Start:29-Oct-2018 Instruction Type:Patient Education Patient Instructions Indication:Elevated hemoglobin A1c Start:29-Oct-2018 Instruction Type:Provider Instructions for Treatment How to access health informa tion online Indication:Syncope Start:20-Jul-2018 Instruction Type:Patient Education How to access health informa tion online - Detail Indication:Syncope Start:20-Jul-2018 Instruction Type:Patient Education Patient Instructions Indication:Syncope Start:20-Jul-2018 Instruction Type:Provider Instructions for Treatment How to access health informa tion online Indication:Syncope Start:09-Jul-2018 Instruction Type:Patient Education How to access health informa tion online - Detail Indication:Syncope Start:09-Jul-2018 Instruction Type:Patient Education Patient Instructions Indication:Syncope Start:09-Jul-2018 Instruction Type:Provider Instructions for Treatment How to access health informa tion online Indication:Syncope Start:29-Jun-2018 Instruction Type:Patient Education How to access health informa tion online - Detail Indication:Syncope Start:29-Jun-2018 Instruction Type:Patient Education Patient Instructions Indication:Syncope Start:29-Jun-2018 Instruction Type:Provider Instructions for Treatment How to access health informa tion online Indication:Lymphocytosis Start:01-Jun-2018 Instruction Type:Patient Education How to access health informa tion online - Detail Indication:Lymphocytosis Start:01-Jun-2018 Instruction Type:Patient Education Patient Instructions Indication:Lymphocytosis Start:01-Jun-2018 Instruction Type:Provider Instructions for Treatment How to access health informa tion online Indication:Family history of malignant neoplasm of gastrointestinal tract (Renamed from Family history of cancer of digestive system) Start:31-Jan-2018 Instruction Type:Patient Education How to access health informa tion online - Detail Indication:Family history of malignant neoplasm of gastrointestinal tract (Renamed from Family history of cancer of digestive system) Start:31-Jan-2018 Instruction Type:Patient Education Patient Instructions Indication:Family history of malignant neoplasm of gastrointestinal tract (Renamed from Family history of cancer of digestive system) Start:31-Jan-2018 Instruction Type:Provider Instructions for Treatment How to access health informa tion online Indication:BMI 21.0-21.9, adult Start:27-Sep-2017 Instruction Type:Patient Education How to access health informa tion online - Detail Indication:BMI 21.0-21.9, adult Start:27-Sep-2017 Instruction Type:Patient Education Patient Instructions Indication:BMI 21.0-21.9, adult Start:27-Sep-2017 Instruction Type:Provider Instructions for Treatment How to access health informa tion online Indication:BMI 22.0-22.9, adult Start:26-May-2017 Instruction Type:Patient Education How to access health informa tion online - Detail Indication:BMI 22.0-22.9, adult Start:26-May-2017 Instruction Type:Patient Education Patient Instructions Indication:BMI 22.0-22.9, adult Start:26-May-2017 Instruction Type:Provider Instructions for Treatment How to access health informa tion online Indication:Current nonsmoker (Renamed from Current non-smoker) Start:18-Jan-2017 Instruction Type:Patient Education How to access health informa tion online - Detail Indication:Current nonsmoker (Renamed from Current non-smoker) Start:18-Jan-2017 Instruction Type:Patient Education Patient Instructions Indication:Current nonsmoker (Renamed from Current non-smoker) Start:18-Jan-2017 Instruction Type:Provider Instructions for Treatment How to access health informa tion online Indication:[facility] EX[facility] Start:14-Sep-2016 Instruction Type:Patient Education How to access health informa tion online - Detail Indication:[facility] EX[facility] Start:14-Sep-2016 Instruction Type:Patient Education Patient Instructions Indication:[facility] EXAM Start:14-Sep-2016 Instruction Type:Provider Instructions for Treatment How to access health informa tion online Indication:Osteoporosis Start:15-Apr-2016 Instruction Type:Patient Education How to access health informa tion online - Detail Indication:Osteoporosis Start:15-Apr-2016 Instruction Type:Patient Education Patient Instructions Indication:Osteoporosis Start:15-Apr-2016 Instruction Type:Provider Instructions for Treatment How to access health informa tion online Indication:[facility] EX[facility] Start:11-Sep-2015 Instruction Type:Patient Education How to access health informa tion online - Detail Indication:[facility] EX[facility] Start:11-Sep-2015 Instruction Type:Patient Education Patient Instructions Indication:[facility] EXAM Start:11-Sep-2015 Instruction Type:Provider Instructions for Treatment How to access health informa tion online Indication:Low Back Pain Start:17-Feb-2015 Instruction Type:Patient Education How to access health informa tion online - Detail Indication:Low Back Pain Start:17-Feb-2015 Instruction Type:Patient Education Patient Instructions Indication:Low Back Pain Start:17-Feb-2015 Instruction Type:Provider Instructions for Treatment Patient Instructions Indication:Encounter for Medicare annual wellness exam Start:27-Aug-2014 Instruction Type:Provider Instructions for Treatment How to access health informa tion online Indication:Encounter for Medicare annual wellness exam Start:27-Aug-2014 Instruction Type:Patient Education How to access health informa tion online - Detail Indication:Encounter for Medicare annual wellness exam Start:27-Aug-2014 Instruction Type:Patient Education Patient Instructions Indication:Headache Start:23-Apr-2014 Instruction Type:Provider Instructions for Treatment Patient Instructions Indication:Osteopenia Start:02-Aug-2013 Instruction Type:Provider Instructions for Treatment Patient Instructions Indication:Ultrasound scan abnormal Start:22-Mar-2013 Instruction Type:Provider Instructions for Treatment Patient Instructions Indication:Abdominal pain, acute, generalized Start:13-Feb-2013 Instruction Type:Provider Instructions for Treatment Patient Instructions Indication:Encounter for Medicare annual wellness exam Start:20-Aug-2012 Instruction Type:Provider Instructions for Treatment Patient Instructions Indication:Elevated blood-pressure reading without diagnosis of hypertension Start:11-Jul-2012 Instruction Type:Provider Instructions for Treatment Patient Instructions Indication:Osteopenia Start:11-Apr-2012 Instruction Type:Provider Instructions for Treatment [facility] Work Phone: Instructions* Name Dates Details Patient Instructions Indication:BMI 22.0-22.9, adult Start:10-Sep-2021 Instruction Type:Provider Instructions for Treatment How to Access Health Informa tion Online using Patient Portal and [employer]rd [employer] Apps Indication:BMI 22.0-22.9, adult Start:10-Sep-2021 Instruction Type:Patient Education Patient Instructions Indication:Elevated hemoglobin A1c Start:26-May-2021 Instruction Type:Provider Instructions for Treatment How to Access Health Informa tion Online using Patient Portal and [employer]rd [employer] Apps Indication:Elevated hemoglobin A1c Start:26-May-2021 Instruction Type:Patient Education Patient Instructions Indication:[facility] EXAM Start:15-Jan-2021 Instruction Type:Provider Instructions for Treatment How to Access Health Informa tion Online using Patient Portal and [employer]rd [employer] Apps Indication:[facility] EX[facility] Start:15-Jan-2021 Instruction Type:Patient Education Patient Instructions Indication:Anemia Start:02-Nov-2020 Instruction Type:Provider Instructions for Treatment How to Access Health Informa tion Online using Patient Portal and [employer]rd [employer] Apps Indication:Anemia Start:02-Nov-2020 Instruction Type:Patient Education Patient Instructions Indication:Nonsmoker Start:28-Jul-2020 Instruction Type:Provider Instructions for Treatment How to Access Health Informa tion Online using Patient Portal and [employer]rd [employer] Apps Indication:Nonsmoker Start:28-Jul-2020 Instruction Type:Patient Education Patient Instructions Indication:Elevated hemoglobin A1c Start:29-Apr-2020 Instruction Type:Provider Instructions for Treatment How to Access Health Informa tion Online using Patient Portal and [employer]rd [employer] Apps Indication:Elevated hemoglobin A1c Start:29-Apr-2020 Instruction Type:Patient Education Patient Instructions Indication:Abdominal pain Start:01-Apr-2020 Instruction Type:Provider Instructions for Treatment Patient Instructions Indication:Diarrhea Start:27-Mar-2020 Instruction Type:Provider Instructions for Treatment Patient Instructions Indication:Diarrhea Start:26-Mar-2020 Instruction Type:Provider Instructions for Treatment Patient Instructions Indication:Nonsmoker Start:23-Mar-2020 Instruction Type:Provider Instructions for Treatment How to Access Health Informa tion Online using Patient Portal and [employer]rd [employer] Apps Indication:Nonsmoker Start:23-Mar-2020 Instruction Type:Patient Education Patient Instructions Indication:Abdominal pain Start:09-Mar-2020 Instruction Type:Provider Instructions for Treatment How to Access Health Informa tion Online using Patient Portal and [employer]rd [employer] Apps Indication:Abdominal pain Start:09-Mar-2020 Instruction Type:Patient Education How to access health informa tion online Indication:Nonsmoker Start:14-Jan-2020 Instruction Type:Patient Education How to access health informa tion online - Detail Indication:Nonsmoker Start:14-Jan-2020 Instruction Type:Patient Education Patient Instructions Indication:Nonsmoker Start:14-Jan-2020 Instruction Type:Provider Instructions for Treatment How to access health informa tion online Indication:Lymphocytosis Start:18-Sep-2019 Instruction Type:Patient Education How to access health informa tion online - Detail Indication:Lymphocytosis Start:18-Sep-2019 Instruction Type:Patient Education Patient Instructions Indication:Lymphocytosis Start:18-Sep-2019 Instruction Type:Provider Instructions for Treatment Patient Instructions Indication:Elevated hemoglobin A1c Start:18-Jun-2019 Instruction Type:Provider Instructions for Treatment How to access health informa tion online Indication:Abnormal lung function test Start:19-Mar-2019 Instruction Type:Patient Education How to access health informa tion online - Detail Indication:Abnormal lung function test Start:19-Mar-2019 Instruction Type:Patient Education Patient Instructions Indication:Abnormal lung function test Start:19-Mar-2019 Instruction Type:Provider Instructions for Treatment How to access health informa tion online Indication:[facility] EX[facility] Start:30-Jan-2019 Instruction Type:Patient Education How to access health informa tion online - Detail Indication:[facility] Start:30-Jan-2019 Instruction Type:Patient Education Patient Instructions Indication:[facility] Start:30-Jan-2019 Instruction Type:Provider Instructions for Treatment How to access health informa tion online Indication:Elevated hemoglobin A1c Start:29-Oct-2018 Instruction Type:Patient Education How to access health informa tion online - Detail Indication:Elevated hemoglobin A1c Start:29-Oct-2018 Instruction Type:Patient Education Patient Instructions Indication:Elevated hemoglobin A1c Start:29-Oct-2018 Instruction Type:Provider Instructions for Treatment How to access health informa tion online Indication:Syncope Start:20-Jul-2018 Instruction Type:Patient Education How to access health informa tion online - Detail Indication:Syncope Start:20-Jul-2018 Instruction Type:Patient Education Patient Instructions Indication:Syncope Start:20-Jul-2018 Instruction Type:Provider Instructions for Treatment How to access health informa tion online Indication:Syncope Start:09-Jul-2018 Instruction Type:Patient Education How to access health informa tion online - Detail Indication:Syncope Start:09-Jul-2018 Instruction Type:Patient Education Patient Instructions Indication:Syncope Start:09-Jul-2018 Instruction Type:Provider Instructions for Treatment How to access health informa tion online Indication:Syncope Start:29-Jun-2018 Instruction Type:Patient Education How to access health informa tion online - Detail Indication:Syncope Start:29-Jun-2018 Instruction Type:Patient Education Patient Instructions Indication:Syncope Start:29-Jun-2018 Instruction Type:Provider Instructions for Treatment How to access health informa tion online Indication:Lymphocytosis Start:01-Jun-2018 Instruction Type:Patient Education How to access health informa tion online - Detail Indication:Lymphocytosis Start:01-Jun-2018 Instruction Type:Patient Education Patient Instructions Indication:Lymphocytosis Start:01-Jun-2018 Instruction Type:Provider Instructions for Treatment How to access health informa tion online Indication:Family history of malignant neoplasm of gastrointestinal tract (Renamed from Family history of cancer of digestive system) Start:31-Jan-2018 Instruction Type:Patient Education How to access health informa tion online - Detail Indication:Family history of malignant neoplasm of gastrointestinal tract (Renamed from Family history of cancer of digestive system) Start:31-Jan-2018 Instruction Type:Patient Education Patient Instructions Indication:Family history of malignant neoplasm of gastrointestinal tract (Renamed from Family history of cancer of digestive system) Start:31-Jan-2018 Instruction Type:Provider Instructions for Treatment How to access health informa tion online Indication:BMI 21.0-21.9, adult Start:27-Sep-2017 Instruction Type:Patient Education How to access health informa tion online - Detail Indication:BMI 21.0-21.9, adult Start:27-Sep-2017 Instruction Type:Patient Education Patient Instructions Indication:BMI 21.0-21.9, adult Start:27-Sep-2017 Instruction Type:Provider Instructions for Treatment How to access health informa tion online Indication:BMI 22.0-22.9, adult Start:26-May-2017 Instruction Type:Patient Education How to access health informa tion online - Detail Indication:BMI 22.0-22.9, adult Start:26-May-2017 Instruction Type:Patient Education Patient Instructions Indication:BMI 22.0-22.9, adult Start:26-May-2017 Instruction Type:Provider Instructions for Treatment How to access health informa tion online Indication:Current nonsmoker (Renamed from Current non-smoker) Start:18-Jan-2017 Instruction Type:Patient Education How to access health informa tion online - Detail Indication:Current nonsmoker (Renamed from Current non-smoker) Start:18-Jan-2017 Instruction Type:Patient Education Patient Instructions Indication:Current nonsmoker (Renamed from Current non-smoker) Start:18-Jan-2017 Instruction Type:Provider Instructions for Treatment How to access health informa tion online Indication:[facility] Start:14-Sep-2016 Instruction Type:Patient Education How to access health informa tion online - Detail Indication:[facility] Start:14-Sep-2016 Instruction Type:Patient Education Patient Instructions Ind[facility] Start:14-Sep-2016 Instruction Type:Provider Instructions for Treatment How to access health informa tion online Indication:Osteoporosis Start:15-Apr-2016 Instruction Type:Patient Education How to access health informa tion online - Detail Indication:Osteoporosis Start:15-Apr-2016 Instruction Type:Patient Education Patient Instructions Indication:Osteoporosis Start:15-Apr-2016 Instruction Type:Provider Instructions for Treatment How to access health informa tion online Indication:[facility] Start:11-Sep-2015 Instruction Type:Patient Education How to access health informa tion online - Detail Indication[facility] Start:11-Sep-2015 Instruction Type:Patient Education Patient Instructions Indication[facility] Start:11-Sep-2015 Instruction Type:Provider Instructions for Treatment How to access health informa tion online Indication:Low Back Pain Start:17-Feb-2015 Instruction Type:Patient Education How to access health informa tion online - Detail Indication:Low Back Pain Start:17-Feb-2015 Instruction Type:Patient Education Patient Instructions Indication:Low Back Pain Start:17-Feb-2015 Instruction Type:Provider Instructions for Treatment Patient Instructions Indication:Encounter for Medicare annual wellness exam Start:27-Aug-2014 Instruction Type:Provider Instructions for Treatment How to access health informa tion online Indication:Encounter for Medicare annual wellness exam Start:27-Aug-2014 Instruction Type:Patient Education How to access health informa tion online - Detail Indication:Encounter for Medicare annual wellness exam Start:27-Aug-2014 Instruction Type:Patient Education Patient Instructions Indication:Headache Start:23-Apr-2014 Instruction Type:Provider Instructions for Treatment Patient Instructions Indication:Osteopenia Start:02-Aug-2013 Instruction Type:Provider Instructions for Treatment Patient Instructions Indication:Ultrasound scan abnormal Start:22-Mar-2013 Instruction Type:Provider Instructions for Treatment Patient Instructions Indication:Abdominal pain, acute, generalized Start:13-Feb-2013 Instruction Type:Provider Instructions for Treatment Patient Instructions Indication:Encounter for Medicare annual wellness exam Start:20-Aug-2012 Instruction Type:Provider Instructions for Treatment Patient Instructions Indication:Elevated blood-pressure reading without diagnosis of hypertension Start:11-Jul-2012 Instruction Type:Provider Instructions for Treatment Patient Instructions Indication:Osteopenia Start:11-Apr-2012 Instruction Type:Provider Instructions for Treatment [facility]; [facility] Work Phone: Instructions* Name Dates Details Patient Instructions Indication:BMI 22.0-22.9, adult Start:10-Sep-2021 Instruction Type:Provider Instructions for Treatment How to Access Health Informa tion Online using Patient Portal and [employer]rd [employer] Apps Indication:BMI 22.0-22.9, adult Start:10-Sep-2021 Instruction Type:Patient Education Patient Instructions Indication:Elevated hemoglobin A1c Start:26-May-2021 Instruction Type:Provider Instructions for Treatment How to Access Health Informa tion Online using Patient Portal and [employer]rd [employer] Apps Indication:Elevated hemoglobin A1c Start:26-May-2021 Instruction Type:Patient Education Patient Instructions Indication:[facility] Start:15-Jan-2021 Instruction Type:Provider Instructions for Treatment How to Access Health Informa tion Online using Patient Portal and [employer]rd [employer] Apps Indication:[facility] EX[facility] Start:15-Jan-2021 Instruction Type:Patient Education Patient Instructions Indication:Anemia Start:02-Nov-2020 Instruction Type:Provider Instructions for Treatment How to Access Health Informa tion Online using Patient Portal and [employer]rd [employer] Apps Indication:Anemia Start:02-Nov-2020 Instruction Type:Patient Education Patient Instructions Indication:Nonsmoker Start:28-Jul-2020 Instruction Type:Provider Instructions for Treatment How to Access Health Informa tion Online using Patient Portal and [employer]rd [employer] Apps Indication:Nonsmoker Start:28-Jul-2020 Instruction Type:Patient Education Patient Instructions Indication:Elevated hemoglobin A1c Start:29-Apr-2020 Instruction Type:Provider Instructions for Treatment How to Access Health Informa tion Online using Patient Portal and [employer]rd [employer] Apps Indication:Elevated hemoglobin A1c Start:29-Apr-2020 Instruction Type:Patient Education Patient Instructions Indication:Abdominal pain Start:01-Apr-2020 Instruction Type:Provider Instructions for Treatment Patient Instructions Indication:Diarrhea Start:27-Mar-2020 Instruction Type:Provider Instructions for Treatment Patient Instructions Indication:Diarrhea Start:26-Mar-2020 Instruction Type:Provider Instructions for Treatment Patient Instructions Indication:Nonsmoker Start:23-Mar-2020 Instruction Type:Provider Instructions for Treatment How to Access Health Informa tion Online using Patient Portal and [employer]rd [employer] Apps Indication:Nonsmoker Start:23-Mar-2020 Instruction Type:Patient Education Patient Instructions Indication:Abdominal pain Start:09-Mar-2020 Instruction Type:Provider Instructions for Treatment How to Access Health Informa tion Online using Patient Portal and [employer]rd [employer] Apps Indication:Abdominal pain Start:09-Mar-2020 Instruction Type:Patient Education How to access health informa tion online Indication:Nonsmoker Start:14-Jan-2020 Instruction Type:Patient Education How to access health informa tion online - Detail Indication:Nonsmoker Start:14-Jan-2020 Instruction Type:Patient Education Patient Instructions Indication:Nonsmoker Start:14-Jan-2020 Instruction Type:Provider Instructions for Treatment How to access health informa tion online Indication:Lymphocytosis Start:18-Sep-2019 Instruction Type:Patient Education How to access health informa tion online - Detail Indication:Lymphocytosis Start:18-Sep-2019 Instruction Type:Patient Education Patient Instructions Indication:Lymphocytosis Start:18-Sep-2019 Instruction Type:Provider Instructions for Treatment Patient Instructions Indication:Elevated hemoglobin A1c Start:18-Jun-2019 Instruction Type:Provider Instructions for Treatment How to access health informa tion online Indication:Abnormal lung function test Start:19-Mar-2019 Instruction Type:Patient Education How to access health informa tion online - Detail Indication:Abnormal lung function test Start:19-Mar-2019 Instruction Type:Patient Education Patient Instructions Indication:Abnormal lung function test Start:19-Mar-2019 Instruction Type:Provider Instructions for Treatment How to access health informa tion online Indication:[facility] EX[facility] Start:30-Jan-2019 Instruction Type:Patient Education How to access health informa tion online - Detail Indication:[facility] Start:30-Jan-2019 Instruction Type:Patient Education Patient Instructions Indication:[facility] Start:30-Jan-2019 Instruction Type:Provider Instructions for Treatment How to access health informa tion online Indication:Elevated hemoglobin A1c Start:29-Oct-2018 Instruction Type:Patient Education How to access health informa tion online - Detail Indication:Elevated hemoglobin A1c Start:29-Oct-2018 Instruction Type:Patient Education Patient Instructions Indication:Elevated hemoglobin A1c Start:29-Oct-2018 Instruction Type:Provider Instructions for Treatment How to access health informa tion online Indication:Syncope Start:20-Jul-2018 Instruction Type:Patient Education How to access health informa tion online - Detail Indication:Syncope Start:20-Jul-2018 Instruction Type:Patient Education Patient Instructions Indication:Syncope Start:20-Jul-2018 Instruction Type:Provider Instructions for Treatment How to access health informa tion online Indication:Syncope Start:09-Jul-2018 Instruction Type:Patient Education How to access health informa tion online - Detail Indication:Syncope Start:09-Jul-2018 Instruction Type:Patient Education Patient Instructions Indication:Syncope Start:09-Jul-2018 Instruction Type:Provider Instructions for Treatment How to access health informa tion online Indication:Syncope Start:29-Jun-2018 Instruction Type:Patient Education How to access health informa tion online - Detail Indication:Syncope Start:29-Jun-2018 Instruction Type:Patient Education Patient Instructions Indication:Syncope Start:29-Jun-2018 Instruction Type:Provider Instructions for Treatment How to access health informa tion online Indication:Lymphocytosis Start:01-Jun-2018 Instruction Type:Patient Education How to access health informa tion online - Detail Indication:Lymphocytosis Start:01-Jun-2018 Instruction Type:Patient Education Patient Instructions Indication:Lymphocytosis Start:01-Jun-2018 Instruction Type:Provider Instructions for Treatment How to access health informa tion online Indication:Family history of malignant neoplasm of gastrointestinal tract (Renamed from Family history of cancer of digestive system) Start:31-Jan-2018 Instruction Type:Patient Education How to access health informa tion online - Detail Indication:Family history of malignant neoplasm of gastrointestinal tract (Renamed from Family history of cancer of digestive system) Start:31-Jan-2018 Instruction Type:Patient Education Patient Instructions Indication:Family history of malignant neoplasm of gastrointestinal tract (Renamed from Family history of cancer of digestive system) Start:31-Jan-2018 Instruction Type:Provider Instructions for Treatment How to access health informa tion online Indication:BMI 21.0-21.9, adult Start:27-Sep-2017 Instruction Type:Patient Education How to access health informa tion online - Detail Indication:BMI 21.0-21.9, adult Start:27-Sep-2017 Instruction Type:Patient Education Patient Instructions Indication:BMI 21.0-21.9, adult Start:27-Sep-2017 Instruction Type:Provider Instructions for Treatment How to access health informa tion online Indication:BMI 22.0-22.9, adult Start:26-May-2017 Instruction Type:Patient Education How to access health informa tion online - Detail Indication:BMI 22.0-22.9, adult Start:26-May-2017 Instruction Type:Patient Education Patient Instructions Indication:BMI 22.0-22.9, adult Start:26-May-2017 Instruction Type:Provider Instructions for Treatment How to access health informa tion online Indication:Current nonsmoker (Renamed from Current non-smoker) Start:18-Jan-2017 Instruction Type:Patient Education How to access health informa tion online - Detail Indication:Current nonsmoker (Renamed from Current non-smoker) Start:18-Jan-2017 Instruction Type:Patient Education Patient Instructions Indication:Current nonsmoker (Renamed from Current non-smoker) Start:18-Jan-2017 Instruction Type:Provider Instructions for Treatment How to access health informa tion online Indication:[facility] Start:14-Sep-2016 Instruction Type:Patient Education How to access health informa tion online - Detail Indication:[facility] Start:14-Sep-2016 Instruction Type:Patient Education Patient Instructions Indication:[facility] Start:14-Sep-2016 Instruction Type:Provider Instructions for Treatment How to access health informa tion online Indication:Osteoporosis Start:15-Apr-2016 Instruction Type:Patient Education How to access health informa tion online - Detail Indication:Osteoporosis Start:15-Apr-2016 Instruction Type:Patient Education Patient Instructions Indication:Osteoporosis Start:15-Apr-2016 Instruction Type:Provider Instructions for Treatment How to access health informa tion online Indication:[facility] EX[facility] Start:11-Sep-2015 Instruction Type:Patient Education How to access health informa tion online - Detail Indication:[facility] Start:11-Sep-2015 Instruction Type:Patient Education Patient Instructions Indication:[facility] Start:11-Sep-2015 Instruction Type:Provider Instructions for Treatment How to access health informa tion online Indication:Low Back Pain Start:17-Feb-2015 Instruction Type:Patient Education How to access health informa tion online - Detail Indication:Low Back Pain Start:17-Feb-2015 Instruction Type:Patient Education Patient Instructions Indication:Low Back Pain Start:17-Feb-2015 Instruction Type:Provider Instructions for Treatment Patient Instructions Indication:Encounter for Medicare annual wellness exam Start:27-Aug-2014 Instruction Type:Provider Instructions for Treatment How to access health informa tion online Indication:Encounter for Medicare annual wellness exam Start:27-Aug-2014 Instruction Type:Patient Education How to access health informa tion online - Detail Indication:Encounter for Medicare annual wellness exam Start:27-Aug-2014 Instruction Type:Patient Education Patient Instructions Indication:Headache Start:23-Apr-2014 Instruction Type:Provider Instructions for Treatment Patient Instructions Indication:Osteopenia Start:02-Aug-2013 Instruction Type:Provider Instructions for Treatment Patient Instructions Indication:Ultrasound scan abnormal Start:22-Mar-2013 Instruction Type:Provider Instructions for Treatment Patient Instructions Indication:Abdominal pain, acute, generalized Start:13-Feb-2013 Instruction Type:Provider Instructions for Treatment Patient Instructions Indication:Encounter for Medicare annual wellness exam Start:20-Aug-2012 Instruction Type:Provider Instructions for Treatment Patient Instructions Indication:Elevated blood-pressure reading without diagnosis of hypertension Start:11-Jul-2012 Instruction Type:Provider Instructions for Treatment Patient Instructions Indication:Osteopenia Start:11-Apr-2012 Instruction Type:Provider Instructions for Treatment [facility]; [facility] Work Phone: Instructions* Name Dates Details Patient Instructions Indication:BMI 22.0-22.9, adult Start:10-Sep-2021 Instruction Type:Provider Instructions for Treatment How to Access Health Informa tion Online using Patient Portal and [employer]rd [employer] Apps Indication:BMI 22.0-22.9, adult Start:10-Sep-2021 Instruction Type:Patient Education Patient Instructions Indication:Elevated hemoglobin A1c Start:26-May-2021 Instruction Type:Provider Instructions for Treatment How to Access Health Informa tion Online using Patient Portal and [employer] Apps Indication:Elevated hemoglobin A1c Start:26-May-2021 Instruction Type:Patient Education Patient Instructions Indication:[facility] EX[facility] Start:15-Jan-2021 Instruction Type:Provider Instructions for Treatment How to Access Health Informa tion Online using Patient Portal and [employer]rd [employer] Apps Indication:[facility] EX[facility] Start:15-Jan-2021 Instruction Type:Patient Education Patient Instructions Indication:Anemia Start:02-Nov-2020 Instruction Type:Provider Instructions for Treatment How to Access Health Informa tion Online using Patient Portal and [employer]rd [employer] Apps Indication:Anemia Start:02-Nov-2020 Instruction Type:Patient Education Patient Instructions Indication:Nonsmoker Start:28-Jul-2020 Instruction Type:Provider Instructions for Treatment How to Access Health Informa tion Online using Patient Portal and [employer] Apps Indication:Nonsmoker Start:28-Jul-2020 Instruction Type:Patient Education Patient Instructions Indication:Elevated hemoglobin A1c Start:29-Apr-2020 Instruction Type:Provider Instructions for Treatment How to Access Health Informa tion Online using Patient Portal and [employer]rd [employer] Apps Indication:Elevated hemoglobin A1c Start:29-Apr-2020 Instruction Type:Patient Education Patient Instructions Indication:Abdominal pain Start:01-Apr-2020 Instruction Type:Provider Instructions for Treatment Patient Instructions Indication:Diarrhea Start:27-Mar-2020 Instruction Type:Provider Instructions for Treatment Patient Instructions Indication:Diarrhea Start:26-Mar-2020 Instruction Type:Provider Instructions for Treatment Patient Instructions Indication:Nonsmoker Start:23-Mar-2020 Instruction Type:Provider Instructions for Treatment How to Access Health Informa tion Online using Patient Portal and [employer]rd [employer] Apps Indication:Nonsmoker Start:23-Mar-2020 Instruction Type:Patient Education Patient Instructions Indication:Abdominal pain Start:09-Mar-2020 Instruction Type:Provider Instructions for Treatment How to Access Health Informa tion Online using Patient Portal and [employer]rd [employer] Apps Indication:Abdominal pain Start:09-Mar-2020 Instruction Type:Patient Education How to access health informa tion online Indication:Nonsmoker Start:14-Jan-2020 Instruction Type:Patient Education How to access health informa tion online - Detail Indication:Nonsmoker Start:14-Jan-2020 Instruction Type:Patient Education Patient Instructions Indication:Nonsmoker Start:14-Jan-2020 Instruction Type:Provider Instructions for Treatment How to access health informa tion online Indication:Lymphocytosis Start:18-Sep-2019 Instruction Type:Patient Education How to access health informa tion online - Detail Indication:Lymphocytosis Start:18-Sep-2019 Instruction Type:Patient Education Patient Instructions Indication:Lymphocytosis Start:18-Sep-2019 Instruction Type:Provider Instructions for Treatment Patient Instructions Indication:Elevated hemoglobin A1c Start:18-Jun-2019 Instruction Type:Provider Instructions for Treatment How to access health informa tion online Indication:Abnormal lung function test Start:19-Mar-2019 Instruction Type:Patient Education How to access health informa tion online - Detail Indication:Abnormal lung function test Start:19-Mar-2019 Instruction Type:Patient Education Patient Instructions Indication:Abnormal lung function test Start:19-Mar-2019 Instruction Type:Provider Instructions for Treatment How to access health informa tion online Indication:[facility] WELLNESS EXAM Start:30-Jan-2019 Instruction Type:Patient Education How to access health informa tion online - Detail Indication:[facility]LL[facility] EXAM Start:30-Jan-2019 Instruction Type:Patient Education Patient Instructions Indication:[facility]LL[facility] EXAM Start:30-Jan-2019 Instruction Type:Provider Instructions for Treatment How to access health informa tion online Indication:Elevated hemoglobin A1c Start:29-Oct-2018 Instruction Type:Patient Education How to access health informa tion online - Detail Indication:Elevated hemoglobin A1c Start:29-Oct-2018 Instruction Type:Patient Education Patient Instructions Indication:Elevated hemoglobin A1c Start:29-Oct-2018 Instruction Type:Provider Instructions for Treatment How to access health informa tion online Indication:Syncope Start:20-Jul-2018 Instruction Type:Patient Education How to access health informa tion online - Detail Indication:Syncope Start:20-Jul-2018 Instruction Type:Patient Education Patient Instructions Indication:Syncope Start:20-Jul-2018 Instruction Type:Provider Instructions for Treatment How to access health informa tion online Indication:Syncope Start:09-Jul-2018 Instruction Type:Patient Education How to access health informa tion online - Detail Indication:Syncope Start:09-Jul-2018 Instruction Type:Patient Education Patient Instructions Indication:Syncope Start:09-Jul-2018 Instruction Type:Provider Instructions for Treatment How to access health informa tion online Indication:Syncope Start:29-Jun-2018 Instruction Type:Patient Education How to access health informa tion online - Detail Indication:Syncope Start:29-Jun-2018 Instruction Type:Patient Education Patient Instructions Indication:Syncope Start:29-Jun-2018 Instruction Type:Provider Instructions for Treatment How to access health informa tion online Indication:Lymphocytosis Start:01-Jun-2018 Instruction Type:Patient Education How to access health informa tion online - Detail Indication:Lymphocytosis Start:01-Jun-2018 Instruction Type:Patient Education Patient Instructions Indication:Lymphocytosis Start:01-Jun-2018 Instruction Type:Provider Instructions for Treatment How to access health informa tion online Indication:Family history of malignant neoplasm of gastrointestinal tract (Renamed from Family history of cancer of digestive system) Start:31-Jan-2018 Instruction Type:Patient Education How to access health informa tion online - Detail Indication:Family history of malignant neoplasm of gastrointestinal tract (Renamed from Family history of cancer of digestive system) Start:31-Jan-2018 Instruction Type:Patient Education Patient Instructions Indication:Family history of malignant neoplasm of gastrointestinal tract (Renamed from Family history of cancer of digestive system) Start:31-Jan-2018 Instruction Type:Provider Instructions for Treatment How to access health informa tion online Indication:BMI 21.0-21.9, adult Start:27-Sep-2017 Instruction Type:Patient Education How to access health informa tion online - Detail Indication:BMI 21.0-21.9, adult Start:27-Sep-2017 Instruction Type:Patient Education Patient Instructions Indication:BMI 21.0-21.9, adult Start:27-Sep-2017 Instruction Type:Provider Instructions for Treatment How to access health informa tion online Indication:BMI 22.0-22.9, adult Start:26-May-2017 Instruction Type:Patient Education How to access health informa tion online - Detail Indication:BMI 22.0-22.9, adult Start:26-May-2017 Instruction Type:Patient Education Patient Instructions Indication:BMI 22.0-22.9, adult Start:26-May-2017 Instruction Type:Provider Instructions for Treatment How to access health informa tion online Indication:Current nonsmoker (Renamed from Current non-smoker) Start:18-Jan-2017 Instruction Type:Patient Education How to access health informa tion online - Detail Indication:Current nonsmoker (Renamed from Current non-smoker) Start:18-Jan-2017 Instruction Type:Patient Education Patient Instructions Indication:Current nonsmoker (Renamed from Current non-smoker) Start:18-Jan-2017 Instruction Type:Provider Instructions for Treatment How to access health informa tion online Indication:[facility] EX[facility] Start:14-Sep-2016 Instruction Type:Patient Education How to access health informa tion online - Detail Indication:[facility] EX[facility] Start:14-Sep-2016 Instruction Type:Patient Education Patient Instructions Indication:[facility] EXAM Start:14-Sep-2016 Instruction Type:Provider Instructions for Treatment How to access health informa tion online Indication:Osteoporosis Start:15-Apr-2016 Instruction Type:Patient Education How to access health informa tion online - Detail Indication:Osteoporosis Start:15-Apr-2016 Instruction Type:Patient Education Patient Instructions Indication:Osteoporosis Start:15-Apr-2016 Instruction Type:Provider Instructions for Treatment How to access health informa tion online Indication:[facility]LL[facility] EXAM Start:11-Sep-2015 Instruction Type:Patient Education How to access health informa tion online - Detail Indication:[facility] EXAM Start:11-Sep-2015 Instruction Type:Patient Education Patient Instructions Indication:[facility] EXAM Start:11-Sep-2015 Instruction Type:Provider Instructions for Treatment How to access health informa tion online Indication:Low Back Pain Start:17-Feb-2015 Instruction Type:Patient Education How to access health informa tion online - Detail Indication:Low Back Pain Start:17-Feb-2015 Instruction Type:Patient Education Patient Instructions Indication:Low Back Pain Start:17-Feb-2015 Instruction Type:Provider Instructions for Treatment Patient Instructions Indication:Encounter for Medicare annual wellness exam Start:27-Aug-2014 Instruction Type:Provider Instructions for Treatment How to access health informa tion online Indication:Encounter for Medicare annual wellness exam Start:27-Aug-2014 Instruction Type:Patient Education How to access health informa tion online - Detail Indication:Encounter for Medicare annual wellness exam Start:27-Aug-2014 Instruction Type:Patient Education Patient Instructions Indication:Headache Start:23-Apr-2014 Instruction Type:Provider Instructions for Treatment Patient Instructions Indication:Osteopenia Start:02-Aug-2013 Instruction Type:Provider Instructions for Treatment Patient Instructions Indication:Ultrasound scan abnormal Start:22-Mar-2013 Instruction Type:Provider Instructions for Treatment Patient Instructions Indication:Abdominal pain, acute, generalized Start:13-Feb-2013 Instruction Type:Provider Instructions for Treatment Patient Instructions Indication:Encounter for Medicare annual wellness exam Start:20-Aug-2012 Instruction Type:Provider Instructions for Treatment Patient Instructions Indication:Elevated blood-pressure reading without diagnosis of hypertension Start:11-Jul-2012 Instruction Type:Provider Instructions for Treatment Patient Instructions Indication:Osteopenia Start:11-Apr-2012 Instruction Type:Provider Instructions for Treatment [facility]; [facility] Work Phone: Instructions* Name Dates Details Patient Instructions Indication:[facility] WELLNESS EXAM Start:11-Jan-2022 Instruction Type:Provider Instructions for Treatment How to Access Health Informa tion Online using Patient Portal and [employer] Apps Indication[facility] Start:11-Jan-2022 Instruction Type:Patient Education Patient Instructions Indication:BMI 22.0-22.9, adult Start:10-Sep-2021 Instruction Type:Provider Instructions for Treatment How to Access Health Informa tion Online using Patient Portal and [employer]rd [employer] Apps Indication:BMI 22.0-22.9, adult Start:10-Sep-2021 Instruction Type:Patient Education Patient Instructions Indication:Elevated hemoglobin A1c Start:26-May-2021 Instruction Type:Provider Instructions for Treatment How to Access Health Informa tion Online using Patient Portal and [employer]rd [employer] Apps Indication:Elevated hemoglobin A1c Start:26-May-2021 Instruction Type:Patient Education Patient Instructions Indication:[facility] EXAM Start:15-Jan-2021 Instruction Type:Provider Instructions for Treatment How to Access Health Informa tion Online using Patient Portal and [employer]rd [employer] Apps Indication:[facility]LL[facility] EXAM Start:15-Jan-2021 Instruction Type:Patient Education Patient Instructions Indication:Anemia Start:02-Nov-2020 Instruction Type:Provider Instructions for Treatment How to Access Health Informa tion Online using Patient Portal and [employer]rd [employer] Apps Indication:Anemia Start:02-Nov-2020 Instruction Type:Patient Education Patient Instructions Indication:Nonsmoker Start:28-Jul-2020 Instruction Type:Provider Instructions for Treatment How to Access Health Informa tion Online using Patient Portal and [employer]rd [employer] Apps Indication:Nonsmoker Start:28-Jul-2020 Instruction Type:Patient Education Patient Instructions Indication:Elevated hemoglobin A1c Start:29-Apr-2020 Instruction Type:Provider Instructions for Treatment How to Access Health Informa tion Online using Patient Portal and [employer]rd [employer] Apps Indication:Elevated hemoglobin A1c Start:29-Apr-2020 Instruction Type:Patient Education Patient Instructions Indication:Abdominal pain Start:01-Apr-2020 Instruction Type:Provider Instructions for Treatment Patient Instructions Indication:Diarrhea Start:27-Mar-2020 Instruction Type:Provider Instructions for Treatment Patient Instructions Indication:Diarrhea Start:26-Mar-2020 Instruction Type:Provider Instructions for Treatment Patient Instructions Indication:Nonsmoker Start:23-Mar-2020 Instruction Type:Provider Instructions for Treatment How to Access Health Informa tion Online using Patient Portal and [employer]rd [employer] Apps Indication:Nonsmoker Start:23-Mar-2020 Instruction Type:Patient Education Patient Instructions Indication:Abdominal pain Start:09-Mar-2020 Instruction Type:Provider Instructions for Treatment How to Access Health Informa tion Online using Patient Portal and [employer] Apps Indication:Abdominal pain Start:09-Mar-2020 Instruction Type:Patient Education How to access health informa tion online Indication:Nonsmoker Start:14-Jan-2020 Instruction Type:Patient Education How to access health informa tion online - Detail Indication:Nonsmoker Start:14-Jan-2020 Instruction Type:Patient Education Patient Instructions Indication:Nonsmoker Start:14-Jan-2020 Instruction Type:Provider Instructions for Treatment How to access health informa tion online Indication:Lymphocytosis Start:18-Sep-2019 Instruction Type:Patient Education How to access health informa tion online - Detail Indication:Lymphocytosis Start:18-Sep-2019 Instruction Type:Patient Education Patient Instructions Indication:Lymphocytosis Start:18-Sep-2019 Instruction Type:Provider Instructions for Treatment Patient Instructions Indication:Elevated hemoglobin A1c Start:18-Jun-2019 Instruction Type:Provider Instructions for Treatment How to access health informa tion online Indication:Abnormal lung function test Start:19-Mar-2019 Instruction Type:Patient Education How to access health informa tion online - Detail Indication:Abnormal lung function test Start:19-Mar-2019 Instruction Type:Patient Education Patient Instructions Indication:Abnormal lung function test Start:19-Mar-2019 Instruction Type:Provider Instructions for Treatment How to access health informa tion online Indication:[facility]LLNESS EXAM Start:30-Jan-2019 Instruction Type:Patient Education How to access health informa tion online - Detail Indication:[facility]LL[facility] EXAM Start:30-Jan-2019 Instruction Type:Patient Education Patient Instructions Indication:[facility] EXAM Start:30-Jan-2019 Instruction Type:Provider Instructions for Treatment How to access health informa tion online Indication:Elevated hemoglobin A1c Start:29-Oct-2018 Instruction Type:Patient Education How to access health informa tion online - Detail Indication:Elevated hemoglobin A1c Start:29-Oct-2018 Instruction Type:Patient Education Patient Instructions Indication:Elevated hemoglobin A1c Start:29-Oct-2018 Instruction Type:Provider Instructions for Treatment How to access health informa tion online Indication:Syncope Start:20-Jul-2018 Instruction Type:Patient Education How to access health informa tion online - Detail Indication:Syncope Start:20-Jul-2018 Instruction Type:Patient Education Patient Instructions Indication:Syncope Start:20-Jul-2018 Instruction Type:Provider Instructions for Treatment How to access health informa tion online Indication:Syncope Start:09-Jul-2018 Instruction Type:Patient Education How to access health informa tion online - Detail Indication:Syncope Start:09-Jul-2018 Instruction Type:Patient Education Patient Instructions Indication:Syncope Start:09-Jul-2018 Instruction Type:Provider Instructions for Treatment How to access health informa tion online Indication:Syncope Start:29-Jun-2018 Instruction Type:Patient Education How to access health informa tion online - Detail Indication:Syncope Start:29-Jun-2018 Instruction Type:Patient Education Patient Instructions Indication:Syncope Start:29-Jun-2018 Instruction Type:Provider Instructions for Treatment How to access health informa tion online Indication:Lymphocytosis Start:01-Jun-2018 Instruction Type:Patient Education How to access health informa tion online - Detail Indication:Lymphocytosis Start:01-Jun-2018 Instruction Type:Patient Education Patient Instructions Indication:Lymphocytosis Start:01-Jun-2018 Instruction Type:Provider Instructions for Treatment How to access health informa tion online Indication:Family history of malignant neoplasm of gastrointestinal tract (Renamed from Family history of cancer of digestive system) Start:31-Jan-2018 Instruction Type:Patient Education How to access health informa tion online - Detail Indication:Family history of malignant neoplasm of gastrointestinal tract (Renamed from Family history of cancer of digestive system) Start:31-Jan-2018 Instruction Type:Patient Education Patient Instructions Indication:Family history of malignant neoplasm of gastrointestinal tract (Renamed from Family history of cancer of digestive system) Start:31-Jan-2018 Instruction Type:Provider Instructions for Treatment How to access health informa tion online Indication:BMI 21.0-21.9, adult Start:27-Sep-2017 Instruction Type:Patient Education How to access health informa tion online - Detail Indication:BMI 21.0-21.9, adult Start:27-Sep-2017 Instruction Type:Patient Education Patient Instructions Indication:BMI 21.0-21.9, adult Start:27-Sep-2017 Instruction Type:Provider Instructions for Treatment How to access health informa tion online Indication:BMI 22.0-22.9, adult Start:26-May-2017 Instruction Type:Patient Education How to access health informa tion online - Detail Indication:BMI 22.0-22.9, adult Start:26-May-2017 Instruction Type:Patient Education Patient Instructions Indication:BMI 22.0-22.9, adult Start:26-May-2017 Instruction Type:Provider Instructions for Treatment How to access health informa tion online Indication:Current nonsmoker (Renamed from Current non-smoker) Start:18-Jan-2017 Instruction Type:Patient Education How to access health informa tion online - Detail Indication:Current nonsmoker (Renamed from Current non-smoker) Start:18-Jan-2017 Instruction Type:Patient Education Patient Instructions Indication:Current nonsmoker (Renamed from Current non-smoker) Start:18-Jan-2017 Instruction Type:Provider Instructions for Treatment How to access health informa tion online Indication:[facility] EXAM Start:14-Sep-2016 Instruction Type:Patient Education How to access health informa tion online - Detail Indication:[facility] EXAM Start:14-Sep-2016 Instruction Type:Patient Education Patient Instructions Indication:[facility] EXAM Start:14-Sep-2016 Instruction Type:Provider Instructions for Treatment How to access health informa tion online Indication:Osteoporosis Start:15-Apr-2016 Instruction Type:Patient Education How to access health informa tion online - Detail Indication:Osteoporosis Start:15-Apr-2016 Instruction Type:Patient Education Patient Instructions Indication:Osteoporosis Start:15-Apr-2016 Instruction Type:Provider Instructions for Treatment How to access health informa tion online Indication:[facility] EXAM Start:11-Sep-2015 Instruction Type:Patient Education How to access health informa tion online - Detail Indication:[facility] EXAM Start:11-Sep-2015 Instruction Type:Patient Education Patient Instructions Indication:[facility] EXAM Start:11-Sep-2015 Instruction Type:Provider Instructions for Treatment How to access health informa tion online Indication:Low Back Pain Start:17-Feb-2015 Instruction Type:Patient Education How to access health informa tion online - Detail Indication:Low Back Pain Start:17-Feb-2015 Instruction Type:Patient Education Patient Instructions Indication:Low Back Pain Start:17-Feb-2015 Instruction Type:Provider Instructions for Treatment Patient Instructions Indication:Encounter for Medicare annual wellness exam Start:27-Aug-2014 Instruction Type:Provider Instructions for Treatment How to access health informa tion online Indication:Encounter for Medicare annual wellness exam Start:27-Aug-2014 Instruction Type:Patient Education How to access health informa tion online - Detail Indication:Encounter for Medicare annual wellness exam Start:27-Aug-2014 Instruction Type:Patient Education Patient Instructions Indication:Headache Start:23-Apr-2014 Instruction Type:Provider Instructions for Treatment Patient Instructions Indication:Osteopenia Start:02-Aug-2013 Instruction Type:Provider Instructions for Treatment Patient Instructions Indication:Ultrasound scan abnormal Start:22-Mar-2013 Instruction Type:Provider Instructions for Treatment Patient Instructions Indication:Abdominal pain, acute, generalized Start:13-Feb-2013 Instruction Type:Provider Instructions for Treatment Patient Instructions Indication:Encounter for Medicare annual wellness exam Start:20-Aug-2012 Instruction Type:Provider Instructions for Treatment Patient Instructions Indication:Elevated blood-pressure reading without diagnosis of hypertension Start:11-Jul-2012 Instruction Type:Provider Instructions for Treatment Patient Instructions Indication:Osteopenia Start:11-Apr-2012 Instruction Type:Provider Instructions for Treatment [facility]; [facility] Work Phone: Instructions* Name Dates Details Patient Instructions Ind[facility] Start:11-Jan-2022 Instruction Type:Provider Instructions for Treatment How to Access Health Informa tion Online using Patient Portal and [employer] Apps Indication:[facility] WELLNESS EXAM Start:11-Jan-2022 Instruction Type:Patient Education Patient Instructions Indication:BMI 22.0-22.9, adult Start:10-Sep-2021 Instruction Type:Provider Instructions for Treatment How to Access Health Informa tion Online using Patient Portal and [employer] Apps Indication:BMI 22.0-22.9, adult Start:10-Sep-2021 Instruction Type:Patient Education Patient Instructions Indication:Elevated hemoglobin A1c Start:26-May-2021 Instruction Type:Provider Instructions for Treatment How to Access Health Informa tion Online using Patient Portal and [employer] Apps Indication:Elevated hemoglobin A1c Start:26-May-2021 Instruction Type:Patient Education Patient Instructions Indication:[facility]LLNESS EXAM Start:15-Jan-2021 Instruction Type:Provider Instructions for Treatment How to Access Health Informa tion Online using Patient Portal and [employer] Apps Indication:[facility]LL[facility] EXAM Start:15-Jan-2021 Instruction Type:Patient Education Patient Instructions Indication:Anemia Start:02-Nov-2020 Instruction Type:Provider Instructions for Treatment How to Access Health Informa tion Online using Patient Portal and [employer] Apps Indication:Anemia Start:02-Nov-2020 Instruction Type:Patient Education Patient Instructions Indication:Nonsmoker Start:28-Jul-2020 Instruction Type:Provider Instructions for Treatment How to Access Health Informa tion Online using Patient Portal and [employer] Apps Indication:Nonsmoker Start:28-Jul-2020 Instruction Type:Patient Education Patient Instructions Indication:Elevated hemoglobin A1c Start:29-Apr-2020 Instruction Type:Provider Instructions for Treatment How to Access Health Informa tion Online using Patient Portal and [employer] Apps Indication:Elevated hemoglobin A1c Start:29-Apr-2020 Instruction Type:Patient Education Patient Instructions Indication:Abdominal pain Start:01-Apr-2020 Instruction Type:Provider Instructions for Treatment Patient Instructions Indication:Diarrhea Start:27-Mar-2020 Instruction Type:Provider Instructions for Treatment Patient Instructions Indication:Diarrhea Start:26-Mar-2020 Instruction Type:Provider Instructions for Treatment Patient Instructions Indication:Nonsmoker Start:23-Mar-2020 Instruction Type:Provider Instructions for Treatment How to Access Health Informa tion Online using Patient Portal and [employer] Apps Indication:Nonsmoker Start:23-Mar-2020 Instruction Type:Patient Education Patient Instructions Indication:Abdominal pain Start:09-Mar-2020 Instruction Type:Provider Instructions for Treatment How to Access Health Informa tion Online using Patient Portal and [employer] Apps Indication:Abdominal pain Start:09-Mar-2020 Instruction Type:Patient Education How to access health informa tion online Indication:Nonsmoker Start:14-Jan-2020 Instruction Type:Patient Education How to access health informa tion online - Detail Indication:Nonsmoker Start:14-Jan-2020 Instruction Type:Patient Education Patient Instructions Indication:Nonsmoker Start:14-Jan-2020 Instruction Type:Provider Instructions for Treatment How to access health informa tion online Indication:Lymphocytosis Start:18-Sep-2019 Instruction Type:Patient Education How to access health informa tion online - Detail Indication:Lymphocytosis Start:18-Sep-2019 Instruction Type:Patient Education Patient Instructions Indication:Lymphocytosis Start:18-Sep-2019 Instruction Type:Provider Instructions for Treatment Patient Instructions Indication:Elevated hemoglobin A1c Start:18-Jun-2019 Instruction Type:Provider Instructions for Treatment How to access health informa tion online Indication:Abnormal lung function test Start:19-Mar-2019 Instruction Type:Patient Education How to access health informa tion online - Detail Indication:Abnormal lung function test Start:19-Mar-2019 Instruction Type:Patient Education Patient Instructions Indication:Abnormal lung function test Start:19-Mar-2019 Instruction Type:Provider Instructions for Treatment How to access health informa tion online Indication:[facility] WELLNESS EXAM Start:30-Jan-2019 Instruction Type:Patient Education How to access health informa tion online - Detail Indication:[facility]LLNESS EXAM Start:30-Jan-2019 Instruction Type:Patient Education Patient Instructions Indication:[facility]LLNESS EXAM Start:30-Jan-2019 Instruction Type:Provider Instructions for Treatment How to access health informa tion online Indication:Elevated hemoglobin A1c Start:29-Oct-2018 Instruction Type:Patient Education How to access health informa tion online - Detail Indication:Elevated hemoglobin A1c Start:29-Oct-2018 Instruction Type:Patient Education Patient Instructions Indication:Elevated hemoglobin A1c Start:29-Oct-2018 Instruction Type:Provider Instructions for Treatment How to access health informa tion online Indication:Syncope Start:20-Jul-2018 Instruction Type:Patient Education How to access health informa tion online - Detail Indication:Syncope Start:20-Jul-2018 Instruction Type:Patient Education Patient Instructions Indication:Syncope Start:20-Jul-2018 Instruction Type:Provider Instructions for Treatment How to access health informa tion online Indication:Syncope Start:09-Jul-2018 Instruction Type:Patient Education How to access health informa tion online - Detail Indication:Syncope Start:09-Jul-2018 Instruction Type:Patient Education Patient Instructions Indication:Syncope Start:09-Jul-2018 Instruction Type:Provider Instructions for Treatment How to access health informa tion online Indication:Syncope Start:29-Jun-2018 Instruction Type:Patient Education How to access health informa tion online - Detail Indication:Syncope Start:29-Jun-2018 Instruction Type:Patient Education Patient Instructions Indication:Syncope Start:29-Jun-2018 Instruction Type:Provider Instructions for Treatment How to access health informa tion online Indication:Lymphocytosis Start:01-Jun-2018 Instruction Type:Patient Education How to access health informa tion online - Detail Indication:Lymphocytosis Start:01-Jun-2018 Instruction Type:Patient Education Patient Instructions Indication:Lymphocytosis Start:01-Jun-2018 Instruction Type:Provider Instructions for Treatment How to access health informa tion online Indication:Family history of malignant neoplasm of gastrointestinal tract (Renamed from Family history of cancer of digestive system) Start:31-Jan-2018 Instruction Type:Patient Education How to access health informa tion online - Detail Indication:Family history of malignant neoplasm of gastrointestinal tract (Renamed from Family history of cancer of digestive system) Start:31-Jan-2018 Instruction Type:Patient Education Patient Instructions Indication:Family history of malignant neoplasm of gastrointestinal tract (Renamed from Family history of cancer of digestive system) Start:31-Jan-2018 Instruction Type:Provider Instructions for Treatment How to access health informa tion online Indication:BMI 21.0-21.9, adult Start:27-Sep-2017 Instruction Type:Patient Education How to access health informa tion online - Detail Indication:BMI 21.0-21.9, adult Start:27-Sep-2017 Instruction Type:Patient Education Patient Instructions Indication:BMI 21.0-21.9, adult Start:27-Sep-2017 Instruction Type:Provider Instructions for Treatment How to access health informa tion online Indication:BMI 22.0-22.9, adult Start:26-May-2017 Instruction Type:Patient Education How to access health informa tion online - Detail Indication:BMI 22.0-22.9, adult Start:26-May-2017 Instruction Type:Patient Education Patient Instructions Indication:BMI 22.0-22.9, adult Start:26-May-2017 Instruction Type:Provider Instructions for Treatment How to access health informa tion online Indication:Current nonsmoker (Renamed from Current non-smoker) Start:18-Jan-2017 Instruction Type:Patient Education How to access health informa tion online - Detail Indication:Current nonsmoker (Renamed from Current non-smoker) Start:18-Jan-2017 Instruction Type:Patient Education Patient Instructions Indication:Current nonsmoker (Renamed from Current non-smoker) Start:18-Jan-2017 Instruction Type:Provider Instructions for Treatment How to access health informa tion online Indication:[facility] EXAM Start:14-Sep-2016 Instruction Type:Patient Education How to access health informa tion online - Detail Indication:[facility] EXAM Start:14-Sep-2016 Instruction Type:Patient Education Patient Instructions Indication:[facility] EXAM Start:14-Sep-2016 Instruction Type:Provider Instructions for Treatment How to access health informa tion online Indication:Osteoporosis Start:15-Apr-2016 Instruction Type:Patient Education How to access health informa tion online - Detail Indication:Osteoporosis Start:15-Apr-2016 Instruction Type:Patient Education Patient Instructions Indication:Osteoporosis Start:15-Apr-2016 Instruction Type:Provider Instructions for Treatment How to access health informa tion online Indication:[facility]LL[facility] EXAM Start:11-Sep-2015 Instruction Type:Patient Education How to access health informa tion online - Detail Indication:[facility] EXAM Start:11-Sep-2015 Instruction Type:Patient Education Patient Instructions Indication:[facility] EXAM Start:11-Sep-2015 Instruction Type:Provider Instructions for Treatment How to access health informa tion online Indication:Low Back Pain Start:17-Feb-2015 Instruction Type:Patient Education How to access health informa tion online - Detail Indication:Low Back Pain Start:17-Feb-2015 Instruction Type:Patient Education Patient Instructions Indication:Low Back Pain Start:17-Feb-2015 Instruction Type:Provider Instructions for Treatment Patient Instructions Indication:Encounter for Medicare annual wellness exam Start:27-Aug-2014 Instruction Type:Provider Instructions for Treatment How to access health informa tion online Indication:Encounter for Medicare annual wellness exam Start:27-Aug-2014 Instruction Type:Patient Education How to access health informa tion online - Detail Indication:Encounter for Medicare annual wellness exam Start:27-Aug-2014 Instruction Type:Patient Education Patient Instructions Indication:Headache Start:23-Apr-2014 Instruction Type:Provider Instructions for Treatment Patient Instructions Indication:Osteopenia Start:02-Aug-2013 Instruction Type:Provider Instructions for Treatment Patient Instructions Indication:Ultrasound scan abnormal Start:22-Mar-2013 Instruction Type:Provider Instructions for Treatment Patient Instructions Indication:Abdominal pain, acute, generalized Start:13-Feb-2013 Instruction Type:Provider Instructions for Treatment Patient Instructions Indication:Encounter for Medicare annual wellness exam Start:20-Aug-2012 Instruction Type:Provider Instructions for Treatment Patient Instructions Indication:Elevated blood-pressure reading without diagnosis of hypertension Start:11-Jul-2012 Instruction Type:Provider Instructions for Treatment Patient Instructions Indication:Osteopenia Start:11-Apr-2012 Instruction Type:Provider Instructions for Treatment [facility]; [facility] Work Phone: Instructions* Name Dates Details Patient Instructions Ind[facility] Start:11-Jan-2022 Instruction Type:Provider Instructions for Treatment How to Access Health Informa tion Online using Patient Portal and [employer] Apps Indication:[facility] WELLNESS EXAM Start:11-Jan-2022 Instruction Type:Patient Education Patient Instructions Indication:BMI 22.0-22.9, adult Start:10-Sep-2021 Instruction Type:Provider Instructions for Treatment How to Access Health Informa tion Online using Patient Portal and [employer] Indication:BMI 22.0-22.9, adult Start:10-Sep-2021 Instruction Type:Patient Education Patient Instructions Indication:Elevated hemoglobin A1c Start:26-May-2021 Instruction Type:Provider Instructions for Treatment How to Access Health Informa tion Online using Patient Portal and [employer] Apps Indication:Elevated hemoglobin A1c Start:26-May-2021 Instruction Type:Patient Education Patient Instructions Indication:[facility] WELLNESS EXAM Start:15-Jan-2021 Instruction Type:Provider Instructions for Treatment How to Access Health Informa tion Online using Patient Portal and [employer] Apps Indication:[facility]LL[facility] EXAM Start:15-Jan-2021 Instruction Type:Patient Education Patient Instructions Indication:Anemia Start:02-Nov-2020 Instruction Type:Provider Instructions for Treatment How to Access Health Informa tion Online using Patient Portal and [employer] Apps Indication:Anemia Start:02-Nov-2020 Instruction Type:Patient Education Patient Instructions Indication:Nonsmoker Start:28-Jul-2020 Instruction Type:Provider Instructions for Treatment How to Access Health Informa tion Online using Patient Portal and [employer] Apps Indication:Nonsmoker Start:28-Jul-2020 Instruction Type:Patient Education Patient Instructions Indication:Elevated hemoglobin A1c Start:29-Apr-2020 Instruction Type:Provider Instructions for Treatment How to Access Health Informa tion Online using Patient Portal and [employer] Apps Indication:Elevated hemoglobin A1c Start:29-Apr-2020 Instruction Type:Patient Education Patient Instructions Indication:Abdominal pain Start:01-Apr-2020 Instruction Type:Provider Instructions for Treatment Patient Instructions Indication:Diarrhea Start:27-Mar-2020 Instruction Type:Provider Instructions for Treatment Patient Instructions Indication:Diarrhea Start:26-Mar-2020 Instruction Type:Provider Instructions for Treatment Patient Instructions Indication:Nonsmoker Start:23-Mar-2020 Instruction Type:Provider Instructions for Treatment How to Access Health Informa tion Online using Patient Portal and [employer] Apps Indication:Nonsmoker Start:23-Mar-2020 Instruction Type:Patient Education Patient Instructions Indication:Abdominal pain Start:09-Mar-2020 Instruction Type:Provider Instructions for Treatment How to Access Health Informa tion Online using Patient Portal and [employer] Apps Indication:Abdominal pain Start:09-Mar-2020 Instruction Type:Patient Education How to access health informa tion online Indication:Nonsmoker Start:14-Jan-2020 Instruction Type:Patient Education How to access health informa tion online - Detail Indication:Nonsmoker Start:14-Jan-2020 Instruction Type:Patient Education Patient Instructions Indication:Nonsmoker Start:14-Jan-2020 Instruction Type:Provider Instructions for Treatment How to access health informa tion online Indication:Lymphocytosis Start:18-Sep-2019 Instruction Type:Patient Education How to access health informa tion online - Detail Indication:Lymphocytosis Start:18-Sep-2019 Instruction Type:Patient Education Patient Instructions Indication:Lymphocytosis Start:18-Sep-2019 Instruction Type:Provider Instructions for Treatment Patient Instructions Indication:Elevated hemoglobin A1c Start:18-Jun-2019 Instruction Type:Provider Instructions for Treatment How to access health informa tion online Indication:Abnormal lung function test Start:19-Mar-2019 Instruction Type:Patient Education How to access health informa tion online - Detail Indication:Abnormal lung function test Start:19-Mar-2019 Instruction Type:Patient Education Patient Instructions Indication:Abnormal lung function test Start:19-Mar-2019 Instruction Type:Provider Instructions for Treatment How to access health informa tion online Indication:[facility]LL[facility] EXAM Start:30-Jan-2019 Instruction Type:Patient Education How to access health informa tion online - Detail Indication:[facility]LL[facility] EXAM Start:30-Jan-2019 Instruction Type:Patient Education Patient Instructions Indication:[facility] EXAM Start:30-Jan-2019 Instruction Type:Provider Instructions for Treatment How to access health informa tion online Indication:Elevated hemoglobin A1c Start:29-Oct-2018 Instruction Type:Patient Education How to access health informa tion online - Detail Indication:Elevated hemoglobin A1c Start:29-Oct-2018 Instruction Type:Patient Education Patient Instructions Indication:Elevated hemoglobin A1c Start:29-Oct-2018 Instruction Type:Provider Instructions for Treatment How to access health informa tion online Indication:Syncope Start:20-Jul-2018 Instruction Type:Patient Education How to access health informa tion online - Detail Indication:Syncope Start:20-Jul-2018 Instruction Type:Patient Education Patient Instructions Indication:Syncope Start:20-Jul-2018 Instruction Type:Provider Instructions for Treatment How to access health informa tion online Indication:Syncope Start:09-Jul-2018 Instruction Type:Patient Education How to access health informa tion online - Detail Indication:Syncope Start:09-Jul-2018 Instruction Type:Patient Education Patient Instructions Indication:Syncope Start:09-Jul-2018 Instruction Type:Provider Instructions for Treatment How to access health informa tion online Indication:Syncope Start:29-Jun-2018 Instruction Type:Patient Education How to access health informa tion online - Detail Indication:Syncope Start:29-Jun-2018 Instruction Type:Patient Education Patient Instructions Indication:Syncope Start:29-Jun-2018 Instruction Type:Provider Instructions for Treatment How to access health informa tion online Indication:Lymphocytosis Start:01-Jun-2018 Instruction Type:Patient Education How to access health informa tion online - Detail Indication:Lymphocytosis Start:01-Jun-2018 Instruction Type:Patient Education Patient Instructions Indication:Lymphocytosis Start:01-Jun-2018 Instruction Type:Provider Instructions for Treatment How to access health informa tion online Indication:Family history of malignant neoplasm of gastrointestinal tract (Renamed from Family history of cancer of digestive system) Start:31-Jan-2018 Instruction Type:Patient Education How to access health informa tion online - Detail Indication:Family history of malignant neoplasm of gastrointestinal tract (Renamed from Family history of cancer of digestive system) Start:31-Jan-2018 Instruction Type:Patient Education Patient Instructions Indication:Family history of malignant neoplasm of gastrointestinal tract (Renamed from Family history of cancer of digestive system) Start:31-Jan-2018 Instruction Type:Provider Instructions for Treatment How to access health informa tion online Indication:BMI 21.0-21.9, adult Start:27-Sep-2017 Instruction Type:Patient Education How to access health informa tion online - Detail Indication:BMI 21.0-21.9, adult Start:27-Sep-2017 Instruction Type:Patient Education Patient Instructions Indication:BMI 21.0-21.9, adult Start:27-Sep-2017 Instruction Type:Provider Instructions for Treatment How to access health informa tion online Indication:BMI 22.0-22.9, adult Start:26-May-2017 Instruction Type:Patient Education How to access health informa tion online - Detail Indication:BMI 22.0-22.9, adult Start:26-May-2017 Instruction Type:Patient Education Patient Instructions Indication:BMI 22.0-22.9, adult Start:26-May-2017 Instruction Type:Provider Instructions for Treatment How to access health informa tion online Indication:Current nonsmoker (Renamed from Current non-smoker) Start:18-Jan-2017 Instruction Type:Patient Education How to access health informa tion online - Detail Indication:Current nonsmoker (Renamed from Current non-smoker) Start:18-Jan-2017 Instruction Type:Patient Education Patient Instructions Indication:Current nonsmoker (Renamed from Current non-smoker) Start:18-Jan-2017 Instruction Type:Provider Instructions for Treatment How to access health informa tion online Indication:[facility] EXAM Start:14-Sep-2016 Instruction Type:Patient Education How to access health informa tion online - Detail Indication:[facility] WELLNESS EXAM Start:14-Sep-2016 Instruction Type:Patient Education Patient Instructions Indication[facility] Start:14-Sep-2016 Instruction Type:Provider Instructions for Treatment How to access health informa tion online Indication:Osteoporosis Start:15-Apr-2016 Instruction Type:Patient Education How to access health informa tion online - Detail Indication:Osteoporosis Start:15-Apr-2016 Instruction Type:Patient Education Patient Instructions Indication:Osteoporosis Start:15-Apr-2016 Instruction Type:Provider Instructions for Treatment How to access health informa tion online Indication:[facility] WELLNESS EXAM Start:11-Sep-2015 Instruction Type:Patient Education How to access health informa tion online - Detail Indication[facility] Start:11-Sep-2015 Instruction Type:Patient Education Patient Instructions Indication:[facility] EXAM Start:11-Sep-2015 Instruction Type:Provider Instructions for Treatment How to access health informa tion online Indication:Low Back Pain Start:17-Feb-2015 Instruction Type:Patient Education How to access health informa tion online - Detail Indication:Low Back Pain Start:17-Feb-2015 Instruction Type:Patient Education Patient Instructions Indication:Low Back Pain Start:17-Feb-2015 Instruction Type:Provider Instructions for Treatment Patient Instructions Indication:Encounter for Medicare annual wellness exam Start:27-Aug-2014 Instruction Type:Provider Instructions for Treatment How to access health informa tion online Indication:Encounter for Medicare annual wellness exam Start:27-Aug-2014 Instruction Type:Patient Education How to access health informa tion online - Detail Indication:Encounter for Medicare annual wellness exam Start:27-Aug-2014 Instruction Type:Patient Education Patient Instructions Indication:Headache Start:23-Apr-2014 Instruction Type:Provider Instructions for Treatment Patient Instructions Indication:Osteopenia Start:02-Aug-2013 Instruction Type:Provider Instructions for Treatment Patient Instructions Indication:Ultrasound scan abnormal Start:22-Mar-2013 Instruction Type:Provider Instructions for Treatment Patient Instructions Indication:Abdominal pain, acute, generalized Start:13-Feb-2013 Instruction Type:Provider Instructions for Treatment Patient Instructions Indication:Encounter for Medicare annual wellness exam Start:20-Aug-2012 Instruction Type:Provider Instructions for Treatment Patient Instructions Indication:Elevated blood-pressure reading without diagnosis of hypertension Start:11-Jul-2012 Instruction Type:Provider Instructions for Treatment Patient Instructions Indication:Osteopenia Start:11-Apr-2012 Instruction Type:Provider Instructions for Treatment [facility]; [facility] Work Phone: Instructions* Name Dates Details Patient Instructions Indication:[facility] WELLNESS EXAM Start:11-Jan-2022 Instruction Type:Provider Instructions for Treatment How to Access Health Informa tion Online using Patient Portal and [employer] Apps Indication:[facility]LLNESS EXAM Start:11-Jan-2022 Instruction Type:Patient Education Patient Instructions Indication:BMI 22.0-22.9, adult Start:10-Sep-2021 Instruction Type:Provider Instructions for Treatment How to Access Health Informa tion Online using Patient Portal and [employer] Indication:BMI 22.0-22.9, adult Start:10-Sep-2021 Instruction Type:Patient Education Patient Instructions Indication:Elevated hemoglobin A1c Start:26-May-2021 Instruction Type:Provider Instructions for Treatment How to Access Health Informa tion Online using Patient Portal and [employer] Indication:Elevated hemoglobin A1c Start:26-May-2021 Instruction Type:Patient Education Patient Instructions Indication:[facility]LLNESS EXAM Start:15-Jan-2021 Instruction Type:Provider Instructions for Treatment How to Access Health Informa tion Online using Patient Portal and [employer] Apps Indication:[facility]LL[facility] EXAM Start:15-Jan-2021 Instruction Type:Patient Education Patient Instructions Indication:Anemia Start:02-Nov-2020 Instruction Type:Provider Instructions for Treatment How to Access Health Informa tion Online using Patient Portal and [employer] Indication:Anemia Start:02-Nov-2020 Instruction Type:Patient Education Patient Instructions Indication:Nonsmoker Start:28-Jul-2020 Instruction Type:Provider Instructions for Treatment How to Access Health Informa tion Online using Patient Portal and [employer] Indication:Nonsmoker Start:28-Jul-2020 Instruction Type:Patient Education Patient Instructions Indication:Elevated hemoglobin A1c Start:29-Apr-2020 Instruction Type:Provider Instructions for Treatment How to Access Health Informa tion Online using Patient Portal and [employer] Apps Indication:Elevated hemoglobin A1c Start:29-Apr-2020 Instruction Type:Patient Education Patient Instructions Indication:Abdominal pain Start:01-Apr-2020 Instruction Type:Provider Instructions for Treatment Patient Instructions Indication:Diarrhea Start:27-Mar-2020 Instruction Type:Provider Instructions for Treatment Patient Instructions Indication:Diarrhea Start:26-Mar-2020 Instruction Type:Provider Instructions for Treatment Patient Instructions Indication:Nonsmoker Start:23-Mar-2020 Instruction Type:Provider Instructions for Treatment How to Access Health Informa tion Online using Patient Portal and [employer] Indication:Nonsmoker Start:23-Mar-2020 Instruction Type:Patient Education Patient Instructions Indication:Abdominal pain Start:09-Mar-2020 Instruction Type:Provider Instructions for Treatment How to Access Health Informa tion Online using Patient Portal and [employer] Indication:Abdominal pain Start:09-Mar-2020 Instruction Type:Patient Education How to access health informa tion online Indication:Nonsmoker Start:14-Jan-2020 Instruction Type:Patient Education How to access health informa tion online - Detail Indication:Nonsmoker Start:14-Jan-2020 Instruction Type:Patient Education Patient Instructions Indication:Nonsmoker Start:14-Jan-2020 Instruction Type:Provider Instructions for Treatment How to access health informa tion online Indication:Lymphocytosis Start:18-Sep-2019 Instruction Type:Patient Education How to access health informa tion online - Detail Indication:Lymphocytosis Start:18-Sep-2019 Instruction Type:Patient Education Patient Instructions Indication:Lymphocytosis Start:18-Sep-2019 Instruction Type:Provider Instructions for Treatment Patient Instructions Indication:Elevated hemoglobin A1c Start:18-Jun-2019 Instruction Type:Provider Instructions for Treatment How to access health informa tion online Indication:Abnormal lung function test Start:19-Mar-2019 Instruction Type:Patient Education How to access health informa tion online - Detail Indication:Abnormal lung function test Start:19-Mar-2019 Instruction Type:Patient Education Patient Instructions Indication:Abnormal lung function test Start:19-Mar-2019 Instruction Type:Provider Instructions for Treatment How to access health informa tion online Indication:[facility]LL[facility] EXAM Start:30-Jan-2019 Instruction Type:Patient Education How to access health informa tion online - Detail Indication:[facility] EX[facility] Start:30-Jan-2019 Instruction Type:Patient Education Patient Instructions Indication:[facility] EX[facility] Start:30-Jan-2019 Instruction Type:Provider Instructions for Treatment How to access health informa tion online Indication:Elevated hemoglobin A1c Start:29-Oct-2018 Instruction Type:Patient Education How to access health informa tion online - Detail Indication:Elevated hemoglobin A1c Start:29-Oct-2018 Instruction Type:Patient Education Patient Instructions Indication:Elevated hemoglobin A1c Start:29-Oct-2018 Instruction Type:Provider Instructions for Treatment How to access health informa tion online Indication:Syncope Start:20-Jul-2018 Instruction Type:Patient Education How to access health informa tion online - Detail Indication:Syncope Start:20-Jul-2018 Instruction Type:Patient Education Patient Instructions Indication:Syncope Start:20-Jul-2018 Instruction Type:Provider Instructions for Treatment How to access health informa tion online Indication:Syncope Start:09-Jul-2018 Instruction Type:Patient Education How to access health informa tion online - Detail Indication:Syncope Start:09-Jul-2018 Instruction Type:Patient Education Patient Instructions Indication:Syncope Start:09-Jul-2018 Instruction Type:Provider Instructions for Treatment How to access health informa tion online Indication:Syncope Start:29-Jun-2018 Instruction Type:Patient Education How to access health informa tion online - Detail Indication:Syncope Start:29-Jun-2018 Instruction Type:Patient Education Patient Instructions Indication:Syncope Start:29-Jun-2018 Instruction Type:Provider Instructions for Treatment How to access health informa tion online Indication:Lymphocytosis Start:01-Jun-2018 Instruction Type:Patient Education How to access health informa tion online - Detail Indication:Lymphocytosis Start:01-Jun-2018 Instruction Type:Patient Education Patient Instructions Indication:Lymphocytosis Start:01-Jun-2018 Instruction Type:Provider Instructions for Treatment How to access health informa tion online Indication:Family history of malignant neoplasm of gastrointestinal tract (Renamed from Family history of cancer of digestive system) Start:31-Jan-2018 Instruction Type:Patient Education How to access health informa tion online - Detail Indication:Family history of malignant neoplasm of gastrointestinal tract (Renamed from Family history of cancer of digestive system) Start:31-Jan-2018 Instruction Type:Patient Education Patient Instructions Indication:Family history of malignant neoplasm of gastrointestinal tract (Renamed from Family history of cancer of digestive system) Start:31-Jan-2018 Instruction Type:Provider Instructions for Treatment How to access health informa tion online Indication:BMI 21.0-21.9, adult Start:27-Sep-2017 Instruction Type:Patient Education How to access health informa tion online - Detail Indication:BMI 21.0-21.9, adult Start:27-Sep-2017 Instruction Type:Patient Education Patient Instructions Indication:BMI 21.0-21.9, adult Start:27-Sep-2017 Instruction Type:Provider Instructions for Treatment How to access health informa tion online Indication:BMI 22.0-22.9, adult Start:26-May-2017 Instruction Type:Patient Education How to access health informa tion online - Detail Indication:BMI 22.0-22.9, adult Start:26-May-2017 Instruction Type:Patient Education Patient Instructions Indication:BMI 22.0-22.9, adult Start:26-May-2017 Instruction Type:Provider Instructions for Treatment How to access health informa tion online Indication:Current nonsmoker (Renamed from Current non-smoker) Start:18-Jan-2017 Instruction Type:Patient Education How to access health informa tion online - Detail Indication:Current nonsmoker (Renamed from Current non-smoker) Start:18-Jan-2017 Instruction Type:Patient Education Patient Instructions Indication:Current nonsmoker (Renamed from Current non-smoker) Start:18-Jan-2017 Instruction Type:Provider Instructions for Treatment How to access health informa tion online Indication:[facility] Start:14-Sep-2016 Instruction Type:Patient Education How to access health informa tion online - Detail Indication:[facility] EX[facility] Start:14-Sep-2016 Instruction Type:Patient Education Patient Instructions Indication:[facility] EX[facility] Start:14-Sep-2016 Instruction Type:Provider Instructions for Treatment How to access health informa tion online Indication:Osteoporosis Start:15-Apr-2016 Instruction Type:Patient Education How to access health informa tion online - Detail Indication:Osteoporosis Start:15-Apr-2016 Instruction Type:Patient Education Patient Instructions Indication:Osteoporosis Start:15-Apr-2016 Instruction Type:Provider Instructions for Treatment How to access health informa tion online Indication[facility] Start:11-Sep-2015 Instruction Type:Patient Education How to access health informa tion online - Detail Indication:[facility] Start:11-Sep-2015 Instruction Type:Patient Education Patient Instructions Indication:[facility] Start:11-Sep-2015 Instruction Type:Provider Instructions for Treatment How to access health informa tion online Indication:Low Back Pain Start:17-Feb-2015 Instruction Type:Patient Education How to access health informa tion online - Detail Indication:Low Back Pain Start:17-Feb-2015 Instruction Type:Patient Education Patient Instructions Indication:Low Back Pain Start:17-Feb-2015 Instruction Type:Provider Instructions for Treatment Patient Instructions Indication:Encounter for Medicare annual wellness exam Start:27-Aug-2014 Instruction Type:Provider Instructions for Treatment How to access health informa tion online Indication:Encounter for Medicare annual wellness exam Start:27-Aug-2014 Instruction Type:Patient Education How to access health informa tion online - Detail Indication:Encounter for Medicare annual wellness exam Start:27-Aug-2014 Instruction Type:Patient Education Patient Instructions Indication:Headache Start:23-Apr-2014 Instruction Type:Provider Instructions for Treatment Patient Instructions Indication:Osteopenia Start:02-Aug-2013 Instruction Type:Provider Instructions for Treatment Patient Instructions Indication:Ultrasound scan abnormal Start:22-Mar-2013 Instruction Type:Provider Instructions for Treatment Patient Instructions Indication:Abdominal pain, acute, generalized Start:13-Feb-2013 Instruction Type:Provider Instructions for Treatment Patient Instructions Indication:Encounter for Medicare annual wellness exam Start:20-Aug-2012 Instruction Type:Provider Instructions for Treatment Patient Instructions Indication:Elevated blood-pressure reading without diagnosis of hypertension Start:11-Jul-2012 Instruction Type:Provider Instructions for Treatment Patient Instructions Indication:Osteopenia Start:11-Apr-2012 Instruction Type:Provider Instructions for Treatment [facility]; [facility] Work Phone: Instructions* Name Dates Details Patient Instructions Indication:[facility] WELLNESS EXAM Start:11-Jan-2022 Instruction Type:Provider Instructions for Treatment How to Access Health Informa tion Online using Patient Portal and [employer] Apps Indication:[facility] EXAM Start:11-Jan-2022 Instruction Type:Patient Education Patient Instructions Indication:BMI 22.0-22.9, adult Start:10-Sep-2021 Instruction Type:Provider Instructions for Treatment How to Access Health Informa tion Online using Patient Portal and [employer] Apps Indication:BMI 22.0-22.9, adult Start:10-Sep-2021 Instruction Type:Patient Education Patient Instructions Indication:Elevated hemoglobin A1c Start:26-May-2021 Instruction Type:Provider Instructions for Treatment How to Access Health Informa tion Online using Patient Portal and [employer] Apps Indication:Elevated hemoglobin A1c Start:26-May-2021 Instruction Type:Patient Education Patient Instructions Indication:[facility] EX[facility] Start:15-Jan-2021 Instruction Type:Provider Instructions for Treatment How to Access Health Informa tion Online using Patient Portal and [employer] Apps Indication:[facility] EXAM Start:15-Jan-2021 Instruction Type:Patient Education Patient Instructions Indication:Anemia Start:02-Nov-2020 Instruction Type:Provider Instructions for Treatment How to Access Health Informa tion Online using Patient Portal and [employer] Apps Indication:Anemia Start:02-Nov-2020 Instruction Type:Patient Education Patient Instructions Indication:Nonsmoker Start:28-Jul-2020 Instruction Type:Provider Instructions for Treatment How to Access Health Informa tion Online using Patient Portal and [employer] Apps Indication:Nonsmoker Start:28-Jul-2020 Instruction Type:Patient Education Patient Instructions Indication:Elevated hemoglobin A1c Start:29-Apr-2020 Instruction Type:Provider Instructions for Treatment How to Access Health Informa tion Online using Patient Portal and [employer] Apps Indication:Elevated hemoglobin A1c Start:29-Apr-2020 Instruction Type:Patient Education Patient Instructions Indication:Abdominal pain Start:01-Apr-2020 Instruction Type:Provider Instructions for Treatment Patient Instructions Indication:Diarrhea Start:27-Mar-2020 Instruction Type:Provider Instructions for Treatment Patient Instructions Indication:Diarrhea Start:26-Mar-2020 Instruction Type:Provider Instructions for Treatment Patient Instructions Indication:Nonsmoker Start:23-Mar-2020 Instruction Type:Provider Instructions for Treatment How to Access Health Informa tion Online using Patient Portal and [employer] Apps Indication:Nonsmoker Start:23-Mar-2020 Instruction Type:Patient Education Patient Instructions Indication:Abdominal pain Start:09-Mar-2020 Instruction Type:Provider Instructions for Treatment How to Access Health Informa tion Online using Patient Portal and [employer] Apps Indication:Abdominal pain Start:09-Mar-2020 Instruction Type:Patient Education How to access health informa tion online Indication:Nonsmoker Start:14-Jan-2020 Instruction Type:Patient Education How to access health informa tion online - Detail Indication:Nonsmoker Start:14-Jan-2020 Instruction Type:Patient Education Patient Instructions Indication:Nonsmoker Start:14-Jan-2020 Instruction Type:Provider Instructions for Treatment How to access health informa tion online Indication:Lymphocytosis Start:18-Sep-2019 Instruction Type:Patient Education How to access health informa tion online - Detail Indication:Lymphocytosis Start:18-Sep-2019 Instruction Type:Patient Education Patient Instructions Indication:Lymphocytosis Start:18-Sep-2019 Instruction Type:Provider Instructions for Treatment Patient Instructions Indication:Elevated hemoglobin A1c Start:18-Jun-2019 Instruction Type:Provider Instructions for Treatment How to access health informa tion online Indication:Abnormal lung function test Start:19-Mar-2019 Instruction Type:Patient Education How to access health informa tion online - Detail Indication:Abnormal lung function test Start:19-Mar-2019 Instruction Type:Patient Education Patient Instructions Indication:Abnormal lung function test Start:19-Mar-2019 Instruction Type:Provider Instructions for Treatment How to access health informa tion online Indication:[facility] EX[facility] Start:30-Jan-2019 Instruction Type:Patient Education How to access health informa tion online - Detail Indication:[facility] EX[facility] Start:30-Jan-2019 Instruction Type:Patient Education Patient Instructions Indication:[facility] EXAM Start:30-Jan-2019 Instruction Type:Provider Instructions for Treatment How to access health informa tion online Indication:Elevated hemoglobin A1c Start:29-Oct-2018 Instruction Type:Patient Education How to access health informa tion online - Detail Indication:Elevated hemoglobin A1c Start:29-Oct-2018 Instruction Type:Patient Education Patient Instructions Indication:Elevated hemoglobin A1c Start:29-Oct-2018 Instruction Type:Provider Instructions for Treatment How to access health informa tion online Indication:Syncope Start:20-Jul-2018 Instruction Type:Patient Education How to access health informa tion online - Detail Indication:Syncope Start:20-Jul-2018 Instruction Type:Patient Education Patient Instructions Indication:Syncope Start:20-Jul-2018 Instruction Type:Provider Instructions for Treatment How to access health informa tion online Indication:Syncope Start:09-Jul-2018 Instruction Type:Patient Education How to access health informa tion online - Detail Indication:Syncope Start:09-Jul-2018 Instruction Type:Patient Education Patient Instructions Indication:Syncope Start:09-Jul-2018 Instruction Type:Provider Instructions for Treatment How to access health informa tion online Indication:Syncope Start:29-Jun-2018 Instruction Type:Patient Education How to access health informa tion online - Detail Indication:Syncope Start:29-Jun-2018 Instruction Type:Patient Education Patient Instructions Indication:Syncope Start:29-Jun-2018 Instruction Type:Provider Instructions for Treatment How to access health informa tion online Indication:Lymphocytosis Start:01-Jun-2018 Instruction Type:Patient Education How to access health informa tion online - Detail Indication:Lymphocytosis Start:01-Jun-2018 Instruction Type:Patient Education Patient Instructions Indication:Lymphocytosis Start:01-Jun-2018 Instruction Type:Provider Instructions for Treatment How to access health informa tion online Indication:Family history of malignant neoplasm of gastrointestinal tract (Renamed from Family history of cancer of digestive system) Start:31-Jan-2018 Instruction Type:Patient Education How to access health informa tion online - Detail Indication:Family history of malignant neoplasm of gastrointestinal tract (Renamed from Family history of cancer of digestive system) Start:31-Jan-2018 Instruction Type:Patient Education Patient Instructions Indication:Family history of malignant neoplasm of gastrointestinal tract (Renamed from Family history of cancer of digestive system) Start:31-Jan-2018 Instruction Type:Provider Instructions for Treatment How to access health informa tion online Indication:BMI 21.0-21.9, adult Start:27-Sep-2017 Instruction Type:Patient Education How to access health informa tion online - Detail Indication:BMI 21.0-21.9, adult Start:27-Sep-2017 Instruction Type:Patient Education Patient Instructions Indication:BMI 21.0-21.9, adult Start:27-Sep-2017 Instruction Type:Provider Instructions for Treatment How to access health informa tion online Indication:BMI 22.0-22.9, adult Start:26-May-2017 Instruction Type:Patient Education How to access health informa tion online - Detail Indication:BMI 22.0-22.9, adult Start:26-May-2017 Instruction Type:Patient Education Patient Instructions Indication:BMI 22.0-22.9, adult Start:26-May-2017 Instruction Type:Provider Instructions for Treatment How to access health informa tion online Indication:Current nonsmoker (Renamed from Current non-smoker) Start:18-Jan-2017 Instruction Type:Patient Education How to access health informa tion online - Detail Indication:Current nonsmoker (Renamed from Current non-smoker) Start:18-Jan-2017 Instruction Type:Patient Education Patient Instructions Indication:Current nonsmoker (Renamed from Current non-smoker) Start:18-Jan-2017 Instruction Type:Provider Instructions for Treatment How to access health informa tion online Indication:[facility] EX[facility] Start:14-Sep-2016 Instruction Type:Patient Education How to access health informa tion online - Detail Indication:[facility] EX[facility] Start:14-Sep-2016 Instruction Type:Patient Education Patient Instructions Indication:[facility] Start:14-Sep-2016 Instruction Type:Provider Instructions for Treatment How to access health informa tion online Indication:Osteoporosis Start:15-Apr-2016 Instruction Type:Patient Education How to access health informa tion online - Detail Indication:Osteoporosis Start:15-Apr-2016 Instruction Type:Patient Education Patient Instructions Indication:Osteoporosis Start:15-Apr-2016 Instruction Type:Provider Instructions for Treatment How to access health informa tion online Indication:[facility] EXAM Start:11-Sep-2015 Instruction Type:Patient Education How to access health informa tion online - Detail Indication:[facility] EXAM Start:11-Sep-2015 Instruction Type:Patient Education Patient Instructions Indication:[facility] EXAM Start:11-Sep-2015 Instruction Type:Provider Instructions for Treatment How to access health informa tion online Indication:Low Back Pain Start:17-Feb-2015 Instruction Type:Patient Education How to access health informa tion online - Detail Indication:Low Back Pain Start:17-Feb-2015 Instruction Type:Patient Education Patient Instructions Indication:Low Back Pain Start:17-Feb-2015 Instruction Type:Provider Instructions for Treatment Patient Instructions Indication:Encounter for Medicare annual wellness exam Start:27-Aug-2014 Instruction Type:Provider Instructions for Treatment How to access health informa tion online Indication:Encounter for Medicare annual wellness exam Start:27-Aug-2014 Instruction Type:Patient Education How to access health informa tion online - Detail Indication:Encounter for Medicare annual wellness exam Start:27-Aug-2014 Instruction Type:Patient Education Patient Instructions Indication:Headache Start:23-Apr-2014 Instruction Type:Provider Instructions for Treatment Patient Instructions Indication:Osteopenia Start:02-Aug-2013 Instruction Type:Provider Instructions for Treatment Patient Instructions Indication:Ultrasound scan abnormal Start:22-Mar-2013 Instruction Type:Provider Instructions for Treatment Patient Instructions Indication:Abdominal pain, acute, generalized Start:13-Feb-2013 Instruction Type:Provider Instructions for Treatment Patient Instructions Indication:Encounter for Medicare annual wellness exam Start:20-Aug-2012 Instruction Type:Provider Instructions for Treatment Patient Instructions Indication:Elevated blood-pressure reading without diagnosis of hypertension Start:11-Jul-2012 Instruction Type:Provider Instructions for Treatment Patient Instructions Indication:Osteopenia Start:11-Apr-2012 Instruction Type:Provider Instructions for Treatment [facility]; [facility] Work Phone: Instructions* Name Dates Details Patient Instructions Indication:[facility] WELLNESS EXAM Start:11-Jan-2022 Instruction Type:Provider Instructions for Treatment How to Access Health Informa tion Online using Patient Portal and [employer] Apps Indication:[facility] WELLNESS EXAM Start:11-Jan-2022 Instruction Type:Patient Education Patient Instructions Indication:BMI 22.0-22.9, adult Start:10-Sep-2021 Instruction Type:Provider Instructions for Treatment How to Access Health Informa tion Online using Patient Portal and [employer] Apps Indication:BMI 22.0-22.9, adult Start:10-Sep-2021 Instruction Type:Patient Education Patient Instructions Indication:Elevated hemoglobin A1c Start:26-May-2021 Instruction Type:Provider Instructions for Treatment How to Access Health Informa tion Online using Patient Portal and [employer] Apps Indication:Elevated hemoglobin A1c Start:26-May-2021 Instruction Type:Patient Education Patient Instructions Indication:[facility] WELLNESS EXAM Start:15-Jan-2021 Instruction Type:Provider Instructions for Treatment How to Access Health Informa tion Online using Patient Portal and [employer] Apps Indication:[facility]LL[facility] EXAM Start:15-Jan-2021 Instruction Type:Patient Education Patient Instructions Indication:Anemia Start:02-Nov-2020 Instruction Type:Provider Instructions for Treatment How to Access Health Informa tion Online using Patient Portal and [employer] Apps Indication:Anemia Start:02-Nov-2020 Instruction Type:Patient Education Patient Instructions Indication:Nonsmoker Start:28-Jul-2020 Instruction Type:Provider Instructions for Treatment How to Access Health Informa tion Online using Patient Portal and [employer] Apps Indication:Nonsmoker Start:28-Jul-2020 Instruction Type:Patient Education Patient Instructions Indication:Elevated hemoglobin A1c Start:29-Apr-2020 Instruction Type:Provider Instructions for Treatment How to Access Health Informa tion Online using Patient Portal and [employer] Apps Indication:Elevated hemoglobin A1c Start:29-Apr-2020 Instruction Type:Patient Education Patient Instructions Indication:Abdominal pain Start:01-Apr-2020 Instruction Type:Provider Instructions for Treatment Patient Instructions Indication:Diarrhea Start:27-Mar-2020 Instruction Type:Provider Instructions for Treatment Patient Instructions Indication:Diarrhea Start:26-Mar-2020 Instruction Type:Provider Instructions for Treatment Patient Instructions Indication:Nonsmoker Start:23-Mar-2020 Instruction Type:Provider Instructions for Treatment How to Access Health Informa tion Online using Patient Portal and [employer] Apps Indication:Nonsmoker Start:23-Mar-2020 Instruction Type:Patient Education Patient Instructions Indication:Abdominal pain Start:09-Mar-2020 Instruction Type:Provider Instructions for Treatment How to Access Health Informa tion Online using Patient Portal and [employer] Apps Indication:Abdominal pain Start:09-Mar-2020 Instruction Type:Patient Education How to access health informa tion online Indication:Nonsmoker Start:14-Jan-2020 Instruction Type:Patient Education How to access health informa tion online - Detail Indication:Nonsmoker Start:14-Jan-2020 Instruction Type:Patient Education Patient Instructions Indication:Nonsmoker Start:14-Jan-2020 Instruction Type:Provider Instructions for Treatment How to access health informa tion online Indication:Lymphocytosis Start:18-Sep-2019 Instruction Type:Patient Education How to access health informa tion online - Detail Indication:Lymphocytosis Start:18-Sep-2019 Instruction Type:Patient Education Patient Instructions Indication:Lymphocytosis Start:18-Sep-2019 Instruction Type:Provider Instructions for Treatment Patient Instructions Indication:Elevated hemoglobin A1c Start:18-Jun-2019 Instruction Type:Provider Instructions for Treatment How to access health informa tion online Indication:Abnormal lung function test Start:19-Mar-2019 Instruction Type:Patient Education How to access health informa tion online - Detail Indication:Abnormal lung function test Start:19-Mar-2019 Instruction Type:Patient Education Patient Instructions Indication:Abnormal lung function test Start:19-Mar-2019 Instruction Type:Provider Instructions for Treatment How to access health informa tion online Indication:[facility]LL[facility] EXAM Start:30-Jan-2019 Instruction Type:Patient Education How to access health informa tion online - Detail Indication:[facility] EXAM Start:30-Jan-2019 Instruction Type:Patient Education Patient Instructions Indication:[facility] EXAM Start:30-Jan-2019 Instruction Type:Provider Instructions for Treatment How to access health informa tion online Indication:Elevated hemoglobin A1c Start:29-Oct-2018 Instruction Type:Patient Education How to access health informa tion online - Detail Indication:Elevated hemoglobin A1c Start:29-Oct-2018 Instruction Type:Patient Education Patient Instructions Indication:Elevated hemoglobin A1c Start:29-Oct-2018 Instruction Type:Provider Instructions for Treatment How to access health informa tion online Indication:Syncope Start:20-Jul-2018 Instruction Type:Patient Education How to access health informa tion online - Detail Indication:Syncope Start:20-Jul-2018 Instruction Type:Patient Education Patient Instructions Indication:Syncope Start:20-Jul-2018 Instruction Type:Provider Instructions for Treatment How to access health informa tion online Indication:Syncope Start:09-Jul-2018 Instruction Type:Patient Education How to access health informa tion online - Detail Indication:Syncope Start:09-Jul-2018 Instruction Type:Patient Education Patient Instructions Indication:Syncope Start:09-Jul-2018 Instruction Type:Provider Instructions for Treatment How to access health informa tion online Indication:Syncope Start:29-Jun-2018 Instruction Type:Patient Education How to access health informa tion online - Detail Indication:Syncope Start:29-Jun-2018 Instruction Type:Patient Education Patient Instructions Indication:Syncope Start:29-Jun-2018 Instruction Type:Provider Instructions for Treatment How to access health informa tion online Indication:Lymphocytosis Start:01-Jun-2018 Instruction Type:Patient Education How to access health informa tion online - Detail Indication:Lymphocytosis Start:01-Jun-2018 Instruction Type:Patient Education Patient Instructions Indication:Lymphocytosis Start:01-Jun-2018 Instruction Type:Provider Instructions for Treatment How to access health informa tion online Indication:Family history of malignant neoplasm of gastrointestinal tract (Renamed from Family history of cancer of digestive system) Start:31-Jan-2018 Instruction Type:Patient Education How to access health informa tion online - Detail Indication:Family history of malignant neoplasm of gastrointestinal tract (Renamed from Family history of cancer of digestive system) Start:31-Jan-2018 Instruction Type:Patient Education Patient Instructions Indication:Family history of malignant neoplasm of gastrointestinal tract (Renamed from Family history of cancer of digestive system) Start:31-Jan-2018 Instruction Type:Provider Instructions for Treatment How to access health informa tion online Indication:BMI 21.0-21.9, adult Start:27-Sep-2017 Instruction Type:Patient Education How to access health informa tion online - Detail Indication:BMI 21.0-21.9, adult Start:27-Sep-2017 Instruction Type:Patient Education Patient Instructions Indication:BMI 21.0-21.9, adult Start:27-Sep-2017 Instruction Type:Provider Instructions for Treatment How to access health informa tion online Indication:BMI 22.0-22.9, adult Start:26-May-2017 Instruction Type:Patient Education How to access health informa tion online - Detail Indication:BMI 22.0-22.9, adult Start:26-May-2017 Instruction Type:Patient Education Patient Instructions Indication:BMI 22.0-22.9, adult Start:26-May-2017 Instruction Type:Provider Instructions for Treatment How to access health informa tion online Indication:Current nonsmoker (Renamed from Current non-smoker) Start:18-Jan-2017 Instruction Type:Patient Education How to access health informa tion online - Detail Indication:Current nonsmoker (Renamed from Current non-smoker) Start:18-Jan-2017 Instruction Type:Patient Education Patient Instructions Indication:Current nonsmoker (Renamed from Current non-smoker) Start:18-Jan-2017 Instruction Type:Provider Instructions for Treatment How to access health informa tion online Indication:[facility] EX[facility] Start:14-Sep-2016 Instruction Type:Patient Education How to access health informa tion online - Detail Indication:[facility] Start:14-Sep-2016 Instruction Type:Patient Education Patient Instructions Indication:[facility] Start:14-Sep-2016 Instruction Type:Provider Instructions for Treatment How to access health informa tion online Indication:Osteoporosis Start:15-Apr-2016 Instruction Type:Patient Education How to access health informa tion online - Detail Indication:Osteoporosis Start:15-Apr-2016 Instruction Type:Patient Education Patient Instructions Indication:Osteoporosis Start:15-Apr-2016 Instruction Type:Provider Instructions for Treatment How to access health informa tion online Indication:[facility] Start:11-Sep-2015 Instruction Type:Patient Education How to access health informa tion online - Detail Indication:[facility] Start:11-Sep-2015 Instruction Type:Patient Education Patient Instructions Indication:[facility] Start:11-Sep-2015 Instruction Type:Provider Instructions for Treatment How to access health informa tion online Indication:Low Back Pain Start:17-Feb-2015 Instruction Type:Patient Education How to access health informa tion online - Detail Indication:Low Back Pain Start:17-Feb-2015 Instruction Type:Patient Education Patient Instructions Indication:Low Back Pain Start:17-Feb-2015 Instruction Type:Provider Instructions for Treatment Patient Instructions Indication:Encounter for Medicare annual wellness exam Start:27-Aug-2014 Instruction Type:Provider Instructions for Treatment How to access health informa tion online Indication:Encounter for Medicare annual wellness exam Start:27-Aug-2014 Instruction Type:Patient Education How to access health informa tion online - Detail Indication:Encounter for Medicare annual wellness exam Start:27-Aug-2014 Instruction Type:Patient Education Patient Instructions Indication:Headache Start:23-Apr-2014 Instruction Type:Provider Instructions for Treatment Patient Instructions Indication:Osteopenia Start:02-Aug-2013 Instruction Type:Provider Instructions for Treatment Patient Instructions Indication:Ultrasound scan abnormal Start:22-Mar-2013 Instruction Type:Provider Instructions for Treatment Patient Instructions Indication:Abdominal pain, acute, generalized Start:13-Feb-2013 Instruction Type:Provider Instructions for Treatment Patient Instructions Indication:Encounter for Medicare annual wellness exam Start:20-Aug-2012 Instruction Type:Provider Instructions for Treatment Patient Instructions Indication:Elevated blood-pressure reading without diagnosis of hypertension Start:11-Jul-2012 Instruction Type:Provider Instructions for Treatment Patient Instructions Indication:Osteopenia Start:11-Apr-2012 Instruction Type:Provider Instructions for Treatment [facility]; [facility] Work Phone: Instructions* Name Dates Details Patient Instructions Indication:[facility] EXAM Start:11-Jan-2022 Instruction Type:Provider Instructions for Treatment How to Access Health Informa tion Online using Patient Portal and [employer]rd [employer] Apps Indication:[facility] EX[facility] Start:11-Jan-2022 Instruction Type:Patient Education Patient Instructions Indication:BMI 22.0-22.9, adult Start:10-Sep-2021 Instruction Type:Provider Instructions for Treatment How to Access Health Informa tion Online using Patient Portal and [employer]rd [employer] Apps Indication:BMI 22.0-22.9, adult Start:10-Sep-2021 Instruction Type:Patient Education Patient Instructions Indication:Elevated hemoglobin A1c Start:26-May-2021 Instruction Type:Provider Instructions for Treatment How to Access Health Informa tion Online using Patient Portal and [employer]rd [employer] Apps Indication:Elevated hemoglobin A1c Start:26-May-2021 Instruction Type:Patient Education Patient Instructions Indication:[facility] Start:15-Jan-2021 Instruction Type:Provider Instructions for Treatment How to Access Health Informa tion Online using Patient Portal and [employer]rd [employer] Apps Indication:[facility] Start:15-Jan-2021 Instruction Type:Patient Education Patient Instructions Indication:Anemia Start:02-Nov-2020 Instruction Type:Provider Instructions for Treatment How to Access Health Informa tion Online using Patient Portal and [employer]rd [employer] Apps Indication:Anemia Start:02-Nov-2020 Instruction Type:Patient Education Patient Instructions Indication:Nonsmoker Start:28-Jul-2020 Instruction Type:Provider Instructions for Treatment How to Access Health Informa tion Online using Patient Portal and [employer]rd [employer] Apps Indication:Nonsmoker Start:28-Jul-2020 Instruction Type:Patient Education Patient Instructions Indication:Elevated hemoglobin A1c Start:29-Apr-2020 Instruction Type:Provider Instructions for Treatment How to Access Health Informa tion Online using Patient Portal and [employer]rd [employer] Apps Indication:Elevated hemoglobin A1c Start:29-Apr-2020 Instruction Type:Patient Education Patient Instructions Indication:Abdominal pain Start:01-Apr-2020 Instruction Type:Provider Instructions for Treatment Patient Instructions Indication:Diarrhea Start:27-Mar-2020 Instruction Type:Provider Instructions for Treatment Patient Instructions Indication:Diarrhea Start:26-Mar-2020 Instruction Type:Provider Instructions for Treatment Patient Instructions Indication:Nonsmoker Start:23-Mar-2020 Instruction Type:Provider Instructions for Treatment How to Access Health Informa tion Online using Patient Portal and [employer]rd [employer] Apps Indication:Nonsmoker Start:23-Mar-2020 Instruction Type:Patient Education Patient Instructions Indication:Abdominal pain Start:09-Mar-2020 Instruction Type:Provider Instructions for Treatment How to Access Health Informa tion Online using Patient Portal and [employer]rd [employer] Apps Indication:Abdominal pain Start:09-Mar-2020 Instruction Type:Patient Education How to access health informa tion online Indication:Nonsmoker Start:14-Jan-2020 Instruction Type:Patient Education How to access health informa tion online - Detail Indication:Nonsmoker Start:14-Jan-2020 Instruction Type:Patient Education Patient Instructions Indication:Nonsmoker Start:14-Jan-2020 Instruction Type:Provider Instructions for Treatment How to access health informa tion online Indication:Lymphocytosis Start:18-Sep-2019 Instruction Type:Patient Education How to access health informa tion online - Detail Indication:Lymphocytosis Start:18-Sep-2019 Instruction Type:Patient Education Patient Instructions Indication:Lymphocytosis Start:18-Sep-2019 Instruction Type:Provider Instructions for Treatment Patient Instructions Indication:Elevated hemoglobin A1c Start:18-Jun-2019 Instruction Type:Provider Instructions for Treatment How to access health informa tion online Indication:Abnormal lung function test Start:19-Mar-2019 Instruction Type:Patient Education How to access health informa tion online - Detail Indication:Abnormal lung function test Start:19-Mar-2019 Instruction Type:Patient Education Patient Instructions Indication:Abnormal lung function test Start:19-Mar-2019 Instruction Type:Provider Instructions for Treatment How to access health informa tion online Indication:[facility] Start:30-Jan-2019 Instruction Type:Patient Education How to access health informa tion online - Detail Indication:[facility] Start:30-Jan-2019 Instruction Type:Patient Education Patient Instructions Indication:[facility] Start:30-Jan-2019 Instruction Type:Provider Instructions for Treatment How to access health informa tion online Indication:Elevated hemoglobin A1c Start:29-Oct-2018 Instruction Type:Patient Education How to access health informa tion online - Detail Indication:Elevated hemoglobin A1c Start:29-Oct-2018 Instruction Type:Patient Education Patient Instructions Indication:Elevated hemoglobin A1c Start:29-Oct-2018 Instruction Type:Provider Instructions for Treatment How to access health informa tion online Indication:Syncope Start:20-Jul-2018 Instruction Type:Patient Education How to access health informa tion online - Detail Indication:Syncope Start:20-Jul-2018 Instruction Type:Patient Education Patient Instructions Indication:Syncope Start:20-Jul-2018 Instruction Type:Provider Instructions for Treatment How to access health informa tion online Indication:Syncope Start:09-Jul-2018 Instruction Type:Patient Education How to access health informa tion online - Detail Indication:Syncope Start:09-Jul-2018 Instruction Type:Patient Education Patient Instructions Indication:Syncope Start:09-Jul-2018 Instruction Type:Provider Instructions for Treatment How to access health informa tion online Indication:Syncope Start:29-Jun-2018 Instruction Type:Patient Education How to access health informa tion online - Detail Indication:Syncope Start:29-Jun-2018 Instruction Type:Patient Education Patient Instructions Indication:Syncope Start:29-Jun-2018 Instruction Type:Provider Instructions for Treatment How to access health informa tion online Indication:Lymphocytosis Start:01-Jun-2018 Instruction Type:Patient Education How to access health informa tion online - Detail Indication:Lymphocytosis Start:01-Jun-2018 Instruction Type:Patient Education Patient Instructions Indication:Lymphocytosis Start:01-Jun-2018 Instruction Type:Provider Instructions for Treatment How to access health informa tion online Indication:Family history of malignant neoplasm of gastrointestinal tract (Renamed from Family history of cancer of digestive system) Start:31-Jan-2018 Instruction Type:Patient Education How to access health informa tion online - Detail Indication:Family history of malignant neoplasm of gastrointestinal tract (Renamed from Family history of cancer of digestive system) Start:31-Jan-2018 Instruction Type:Patient Education Patient Instructions Indication:Family history of malignant neoplasm of gastrointestinal tract (Renamed from Family history of cancer of digestive system) Start:31-Jan-2018 Instruction Type:Provider Instructions for Treatment How to access health informa tion online Indication:BMI 21.0-21.9, adult Start:27-Sep-2017 Instruction Type:Patient Education How to access health informa tion online - Detail Indication:BMI 21.0-21.9, adult Start:27-Sep-2017 Instruction Type:Patient Education Patient Instructions Indication:BMI 21.0-21.9, adult Start:27-Sep-2017 Instruction Type:Provider Instructions for Treatment How to access health informa tion online Indication:BMI 22.0-22.9, adult Start:26-May-2017 Instruction Type:Patient Education How to access health informa tion online - Detail Indication:BMI 22.0-22.9, adult Start:26-May-2017 Instruction Type:Patient Education Patient Instructions Indication:BMI 22.0-22.9, adult Start:26-May-2017 Instruction Type:Provider Instructions for Treatment How to access health informa tion online Indication:Current nonsmoker (Renamed from Current non-smoker) Start:18-Jan-2017 Instruction Type:Patient Education How to access health informa tion online - Detail Indication:Current nonsmoker (Renamed from Current non-smoker) Start:18-Jan-2017 Instruction Type:Patient Education Patient Instructions Indication:Current nonsmoker (Renamed from Current non-smoker) Start:18-Jan-2017 Instruction Type:Provider Instructions for Treatment How to access health informa tion online Indication:[facility] Start:14-Sep-2016 Instruction Type:Patient Education How to access health informa tion online - Detail Indication:[facility] Start:14-Sep-2016 Instruction Type:Patient Education Patient Instructions Ind[facility] Start:14-Sep-2016 Instruction Type:Provider Instructions for Treatment How to access health informa tion online Indication:Osteoporosis Start:15-Apr-2016 Instruction Type:Patient Education How to access health informa tion online - Detail Indication:Osteoporosis Start:15-Apr-2016 Instruction Type:Patient Education Patient Instructions Indication:Osteoporosis Start:15-Apr-2016 Instruction Type:Provider Instructions for Treatment How to access health informa tion online Indication:[facility] Start:11-Sep-2015 Instruction Type:Patient Education How to access health informa tion online - Detail Indication:[facility] Start:11-Sep-2015 Instruction Type:Patient Education Patient Instructions Ind[facility] Start:11-Sep-2015 Instruction Type:Provider Instructions for Treatment How to access health informa tion online Indication:Low Back Pain Start:17-Feb-2015 Instruction Type:Patient Education How to access health informa tion online - Detail Indication:Low Back Pain Start:17-Feb-2015 Instruction Type:Patient Education Patient Instructions Indication:Low Back Pain Start:17-Feb-2015 Instruction Type:Provider Instructions for Treatment Patient Instructions Indication:Encounter for Medicare annual wellness exam Start:27-Aug-2014 Instruction Type:Provider Instructions for Treatment How to access health informa tion online Indication:Encounter for Medicare annual wellness exam Start:27-Aug-2014 Instruction Type:Patient Education How to access health informa tion online - Detail Indication:Encounter for Medicare annual wellness exam Start:27-Aug-2014 Instruction Type:Patient Education Patient Instructions Indication:Headache Start:23-Apr-2014 Instruction Type:Provider Instructions for Treatment Patient Instructions Indication:Osteopenia Start:02-Aug-2013 Instruction Type:Provider Instructions for Treatment Patient Instructions Indication:Ultrasound scan abnormal Start:22-Mar-2013 Instruction Type:Provider Instructions for Treatment Patient Instructions Indication:Abdominal pain, acute, generalized Start:13-Feb-2013 Instruction Type:Provider Instructions for Treatment Patient Instructions Indication:Encounter for Medicare annual wellness exam Start:20-Aug-2012 Instruction Type:Provider Instructions for Treatment Patient Instructions Indication:Elevated blood-pressure reading without diagnosis of hypertension Start:11-Jul-2012 Instruction Type:Provider Instructions for Treatment Patient Instructions Indication:Osteopenia Start:11-Apr-2012 Instruction Type:Provider Instructions for Treatment [facility]; [facility] Work Phone: Instructions* Name Dates Details Patient Instructions Indication:Elevated hemoglobin A1c Start:03-Jun-2022 Instruction Type:Provider Instructions for Treatment How to Access Health Informa tion Online using Patient Portal and [employer]rd [employer] Apps Indication:Elevated hemoglobin A1c Start:03-Jun-2022 Instruction Type:Patient Education Patient Instructions Indication:[facility] EX[facility] Start:11-Jan-2022 Instruction Type:Provider Instructions for Treatment How to Access Health Informa tion Online using Patient Portal and [employer]rd [employer] Apps Indication:[facility] EX[facility] Start:11-Jan-2022 Instruction Type:Patient Education Patient Instructions Indication:BMI 22.0-22.9, adult Start:10-Sep-2021 Instruction Type:Provider Instructions for Treatment How to Access Health Informa tion Online using Patient Portal and [employer]rd [employer] Apps Indication:BMI 22.0-22.9, adult Start:10-Sep-2021 Instruction Type:Patient Education Patient Instructions Indication:Elevated hemoglobin A1c Start:26-May-2021 Instruction Type:Provider Instructions for Treatment How to Access Health Informa tion Online using Patient Portal and [employer]rd [employer] Apps Indication:Elevated hemoglobin A1c Start:26-May-2021 Instruction Type:Patient Education Patient Instructions Indication:[facility] EX[facility] Start:15-Jan-2021 Instruction Type:Provider Instructions for Treatment How to Access Health Informa tion Online using Patient Portal and [employer]rd [employer] Apps Indication:[facility] EX[facility] Start:15-Jan-2021 Instruction Type:Patient Education Patient Instructions Indication:Anemia Start:02-Nov-2020 Instruction Type:Provider Instructions for Treatment How to Access Health Informa tion Online using Patient Portal and [employer]rd [employer] Apps Indication:Anemia Start:02-Nov-2020 Instruction Type:Patient Education Patient Instructions Indication:Nonsmoker Start:28-Jul-2020 Instruction Type:Provider Instructions for Treatment How to Access Health Informa tion Online using Patient Portal and [employer]rd [employer] Apps Indication:Nonsmoker Start:28-Jul-2020 Instruction Type:Patient Education Patient Instructions Indication:Elevated hemoglobin A1c Start:29-Apr-2020 Instruction Type:Provider Instructions for Treatment How to Access Health Informa tion Online using Patient Portal and [employer]rd [employer] Apps Indication:Elevated hemoglobin A1c Start:29-Apr-2020 Instruction Type:Patient Education Patient Instructions Indication:Abdominal pain Start:01-Apr-2020 Instruction Type:Provider Instructions for Treatment Patient Instructions Indication:Diarrhea Start:27-Mar-2020 Instruction Type:Provider Instructions for Treatment Patient Instructions Indication:Diarrhea Start:26-Mar-2020 Instruction Type:Provider Instructions for Treatment Patient Instructions Indication:Nonsmoker Start:23-Mar-2020 Instruction Type:Provider Instructions for Treatment How to Access Health Informa tion Online using Patient Portal and [employer]rd [employer] Apps Indication:Nonsmoker Start:23-Mar-2020 Instruction Type:Patient Education Patient Instructions Indication:Abdominal pain Start:09-Mar-2020 Instruction Type:Provider Instructions for Treatment How to Access Health Informa tion Online using Patient Portal and [employer]rd [employer] Apps Indication:Abdominal pain Start:09-Mar-2020 Instruction Type:Patient Education How to access health informa tion online Indication:Nonsmoker Start:14-Jan-2020 Instruction Type:Patient Education How to access health informa tion online - Detail Indication:Nonsmoker Start:14-Jan-2020 Instruction Type:Patient Education Patient Instructions Indication:Nonsmoker Start:14-Jan-2020 Instruction Type:Provider Instructions for Treatment How to access health informa tion online Indication:Lymphocytosis Start:18-Sep-2019 Instruction Type:Patient Education How to access health informa tion online - Detail Indication:Lymphocytosis Start:18-Sep-2019 Instruction Type:Patient Education Patient Instructions Indication:Lymphocytosis Start:18-Sep-2019 Instruction Type:Provider Instructions for Treatment Patient Instructions Indication:Elevated hemoglobin A1c Start:18-Jun-2019 Instruction Type:Provider Instructions for Treatment How to access health informa tion online Indication:Abnormal lung function test Start:19-Mar-2019 Instruction Type:Patient Education How to access health informa tion online - Detail Indication:Abnormal lung function test Start:19-Mar-2019 Instruction Type:Patient Education Patient Instructions Indication:Abnormal lung function test Start:19-Mar-2019 Instruction Type:Provider Instructions for Treatment How to access health informa tion online Indication:[facility] Start:30-Jan-2019 Instruction Type:Patient Education How to access health informa tion online - Detail Indication:[facility] Start:30-Jan-2019 Instruction Type:Patient Education Patient Instructions Indication:[facility] Start:30-Jan-2019 Instruction Type:Provider Instructions for Treatment How to access health informa tion online Indication:Elevated hemoglobin A1c Start:29-Oct-2018 Instruction Type:Patient Education How to access health informa tion online - Detail Indication:Elevated hemoglobin A1c Start:29-Oct-2018 Instruction Type:Patient Education Patient Instructions Indication:Elevated hemoglobin A1c Start:29-Oct-2018 Instruction Type:Provider Instructions for Treatment How to access health informa tion online Indication:Syncope Start:20-Jul-2018 Instruction Type:Patient Education How to access health informa tion online - Detail Indication:Syncope Start:20-Jul-2018 Instruction Type:Patient Education Patient Instructions Indication:Syncope Start:20-Jul-2018 Instruction Type:Provider Instructions for Treatment How to access health informa tion online Indication:Syncope Start:09-Jul-2018 Instruction Type:Patient Education How to access health informa tion online - Detail Indication:Syncope Start:09-Jul-2018 Instruction Type:Patient Education Patient Instructions Indication:Syncope Start:09-Jul-2018 Instruction Type:Provider Instructions for Treatment How to access health informa tion online Indication:Syncope Start:29-Jun-2018 Instruction Type:Patient Education How to access health informa tion online - Detail Indication:Syncope Start:29-Jun-2018 Instruction Type:Patient Education Patient Instructions Indication:Syncope Start:29-Jun-2018 Instruction Type:Provider Instructions for Treatment How to access health informa tion online Indication:Lymphocytosis Start:01-Jun-2018 Instruction Type:Patient Education How to access health informa tion online - Detail Indication:Lymphocytosis Start:01-Jun-2018 Instruction Type:Patient Education Patient Instructions Indication:Lymphocytosis Start:01-Jun-2018 Instruction Type:Provider Instructions for Treatment How to access health informa tion online Indication:Family history of malignant neoplasm of gastrointestinal tract (Renamed from Family history of cancer of digestive system) Start:31-Jan-2018 Instruction Type:Patient Education How to access health informa tion online - Detail Indication:Family history of malignant neoplasm of gastrointestinal tract (Renamed from Family history of cancer of digestive system) Start:31-Jan-2018 Instruction Type:Patient Education Patient Instructions Indication:Family history of malignant neoplasm of gastrointestinal tract (Renamed from Family history of cancer of digestive system) Start:31-Jan-2018 Instruction Type:Provider Instructions for Treatment How to access health informa tion online Indication:BMI 21.0-21.9, adult Start:27-Sep-2017 Instruction Type:Patient Education How to access health informa tion online - Detail Indication:BMI 21.0-21.9, adult Start:27-Sep-2017 Instruction Type:Patient Education Patient Instructions Indication:BMI 21.0-21.9, adult Start:27-Sep-2017 Instruction Type:Provider Instructions for Treatment How to access health informa tion online Indication:BMI 22.0-22.9, adult Start:26-May-2017 Instruction Type:Patient Education How to access health informa tion online - Detail Indication:BMI 22.0-22.9, adult Start:26-May-2017 Instruction Type:Patient Education Patient Instructions Indication:BMI 22.0-22.9, adult Start:26-May-2017 Instruction Type:Provider Instructions for Treatment How to access health informa tion online Indication:Current nonsmoker (Renamed from Current non-smoker) Start:18-Jan-2017 Instruction Type:Patient Education How to access health informa tion online - Detail Indication:Current nonsmoker (Renamed from Current non-smoker) Start:18-Jan-2017 Instruction Type:Patient Education Patient Instructions Indication:Current nonsmoker (Renamed from Current non-smoker) Start:18-Jan-2017 Instruction Type:Provider Instructions for Treatment How to access health informa tion online Indication:[facility] EX[facility] Start:14-Sep-2016 Instruction Type:Patient Education How to access health informa tion online - Detail Indication:[facility] Start:14-Sep-2016 Instruction Type:Patient Education Patient Instructions Indication:[facility] Start:14-Sep-2016 Instruction Type:Provider Instructions for Treatment How to access health informa tion online Indication:Osteoporosis Start:15-Apr-2016 Instruction Type:Patient Education How to access health informa tion online - Detail Indication:Osteoporosis Start:15-Apr-2016 Instruction Type:Patient Education Patient Instructions Indication:Osteoporosis Start:15-Apr-2016 Instruction Type:Provider Instructions for Treatment How to access health informa tion online Indication:[facility] Start:11-Sep-2015 Instruction Type:Patient Education How to access health informa tion online - Detail Indication:[facility] Start:11-Sep-2015 Instruction Type:Patient Education Patient Instructions Indication:[facility] Start:11-Sep-2015 Instruction Type:Provider Instructions for Treatment How to access health informa tion online Indication:Low Back Pain Start:17-Feb-2015 Instruction Type:Patient Education How to access health informa tion online - Detail Indication:Low Back Pain Start:17-Feb-2015 Instruction Type:Patient Education Patient Instructions Indication:Low Back Pain Start:17-Feb-2015 Instruction Type:Provider Instructions for Treatment Patient Instructions Indication:Encounter for Medicare annual wellness exam Start:27-Aug-2014 Instruction Type:Provider Instructions for Treatment How to access health informa tion online Indication:Encounter for Medicare annual wellness exam Start:27-Aug-2014 Instruction Type:Patient Education How to access health informa tion online - Detail Indication:Encounter for Medicare annual wellness exam Start:27-Aug-2014 Instruction Type:Patient Education Patient Instructions Indication:Headache Start:23-Apr-2014 Instruction Type:Provider Instructions for Treatment Patient Instructions Indication:Osteopenia Start:02-Aug-2013 Instruction Type:Provider Instructions for Treatment Patient Instructions Indication:Ultrasound scan abnormal Start:22-Mar-2013 Instruction Type:Provider Instructions for Treatment Patient Instructions Indication:Abdominal pain, acute, generalized Start:13-Feb-2013 Instruction Type:Provider Instructions for Treatment Patient Instructions Indication:Encounter for Medicare annual wellness exam Start:20-Aug-2012 Instruction Type:Provider Instructions for Treatment Patient Instructions Indication:Elevated blood-pressure reading without diagnosis of hypertension Start:11-Jul-2012 Instruction Type:Provider Instructions for Treatment Patient Instructions Indication:Osteopenia Start:11-Apr-2012 Instruction Type:Provider Instructions for Treatment [facility]; [facility] Work Phone: Instructions* Name Dates Details Patient Instructions Indication:Elevated hemoglobin A1c Start:03-Jun-2022 Instruction Type:Provider Instructions for Treatment How to Access Health Informa tion Online using Patient Portal and [employer]rd [employer] Apps Indication:Elevated hemoglobin A1c Start:03-Jun-2022 Instruction Type:Patient Education Patient Instructions Indication:[facility] Start:11-Jan-2022 Instruction Type:Provider Instructions for Treatment How to Access Health Informa tion Online using Patient Portal and [employer]rd [employer] Apps Indication:[facility] Start:11-Jan-2022 Instruction Type:Patient Education Patient Instructions Indication:BMI 22.0-22.9, adult Start:10-Sep-2021 Instruction Type:Provider Instructions for Treatment How to Access Health Informa tion Online using Patient Portal and [employer]rd [employer] Apps Indication:BMI 22.0-22.9, adult Start:10-Sep-2021 Instruction Type:Patient Education Patient Instructions Indication:Elevated hemoglobin A1c Start:26-May-2021 Instruction Type:Provider Instructions for Treatment How to Access Health Informa tion Online using Patient Portal and [employer]rd [employer] Apps Indication:Elevated hemoglobin A1c Start:26-May-2021 Instruction Type:Patient Education Patient Instructions Indication:[facility] Start:15-Jan-2021 Instruction Type:Provider Instructions for Treatment How to Access Health Informa tion Online using Patient Portal and [employer]rd [employer] Apps Indication:[facility] Start:15-Jan-2021 Instruction Type:Patient Education Patient Instructions Indication:Anemia Start:02-Nov-2020 Instruction Type:Provider Instructions for Treatment How to Access Health Informa tion Online using Patient Portal and [employer]rd [employer] Apps Indication:Anemia Start:02-Nov-2020 Instruction Type:Patient Education Patient Instructions Indication:Nonsmoker Start:28-Jul-2020 Instruction Type:Provider Instructions for Treatment How to Access Health Informa tion Online using Patient Portal and [employer]rd [employer] Apps Indication:Nonsmoker Start:28-Jul-2020 Instruction Type:Patient Education Patient Instructions Indication:Elevated hemoglobin A1c Start:29-Apr-2020 Instruction Type:Provider Instructions for Treatment How to Access Health Informa tion Online using Patient Portal and [employer]rd [employer] Apps Indication:Elevated hemoglobin A1c Start:29-Apr-2020 Instruction Type:Patient Education Patient Instructions Indication:Abdominal pain Start:01-Apr-2020 Instruction Type:Provider Instructions for Treatment Patient Instructions Indication:Diarrhea Start:27-Mar-2020 Instruction Type:Provider Instructions for Treatment Patient Instructions Indication:Diarrhea Start:26-Mar-2020 Instruction Type:Provider Instructions for Treatment Patient Instructions Indication:Nonsmoker Start:23-Mar-2020 Instruction Type:Provider Instructions for Treatment How to Access Health Informa tion Online using Patient Portal and [employer]rd [employer] Apps Indication:Nonsmoker Start:23-Mar-2020 Instruction Type:Patient Education Patient Instructions Indication:Abdominal pain Start:09-Mar-2020 Instruction Type:Provider Instructions for Treatment How to Access Health Informa tion Online using Patient Portal and [employer]rd [employer] Apps Indication:Abdominal pain Start:09-Mar-2020 Instruction Type:Patient Education How to access health informa tion online Indication:Nonsmoker Start:14-Jan-2020 Instruction Type:Patient Education How to access health informa tion online - Detail Indication:Nonsmoker Start:14-Jan-2020 Instruction Type:Patient Education Patient Instructions Indication:Nonsmoker Start:14-Jan-2020 Instruction Type:Provider Instructions for Treatment How to access health informa tion online Indication:Lymphocytosis Start:18-Sep-2019 Instruction Type:Patient Education How to access health informa tion online - Detail Indication:Lymphocytosis Start:18-Sep-2019 Instruction Type:Patient Education Patient Instructions Indication:Lymphocytosis Start:18-Sep-2019 Instruction Type:Provider Instructions for Treatment Patient Instructions Indication:Elevated hemoglobin A1c Start:18-Jun-2019 Instruction Type:Provider Instructions for Treatment How to access health informa tion online Indication:Abnormal lung function test Start:19-Mar-2019 Instruction Type:Patient Education How to access health informa tion online - Detail Indication:Abnormal lung function test Start:19-Mar-2019 Instruction Type:Patient Education Patient Instructions Indication:Abnormal lung function test Start:19-Mar-2019 Instruction Type:Provider Instructions for Treatment How to access health informa tion online Indication:[facility] Start:30-Jan-2019 Instruction Type:Patient Education How to access health informa tion online - Detail Indication:[facility] Start:30-Jan-2019 Instruction Type:Patient Education Patient Instructions Indication:[facility] Start:30-Jan-2019 Instruction Type:Provider Instructions for Treatment How to access health informa tion online Indication:Elevated hemoglobin A1c Start:29-Oct-2018 Instruction Type:Patient Education How to access health informa tion online - Detail Indication:Elevated hemoglobin A1c Start:29-Oct-2018 Instruction Type:Patient Education Patient Instructions Indication:Elevated hemoglobin A1c Start:29-Oct-2018 Instruction Type:Provider Instructions for Treatment How to access health informa tion online Indication:Syncope Start:20-Jul-2018 Instruction Type:Patient Education How to access health informa tion online - Detail Indication:Syncope Start:20-Jul-2018 Instruction Type:Patient Education Patient Instructions Indication:Syncope Start:20-Jul-2018 Instruction Type:Provider Instructions for Treatment How to access health informa tion online Indication:Syncope Start:09-Jul-2018 Instruction Type:Patient Education How to access health informa tion online - Detail Indication:Syncope Start:09-Jul-2018 Instruction Type:Patient Education Patient Instructions Indication:Syncope Start:09-Jul-2018 Instruction Type:Provider Instructions for Treatment How to access health informa tion online Indication:Syncope Start:29-Jun-2018 Instruction Type:Patient Education How to access health informa tion online - Detail Indication:Syncope Start:29-Jun-2018 Instruction Type:Patient Education Patient Instructions Indication:Syncope Start:29-Jun-2018 Instruction Type:Provider Instructions for Treatment How to access health informa tion online Indication:Lymphocytosis Start:01-Jun-2018 Instruction Type:Patient Education How to access health informa tion online - Detail Indication:Lymphocytosis Start:01-Jun-2018 Instruction Type:Patient Education Patient Instructions Indication:Lymphocytosis Start:01-Jun-2018 Instruction Type:Provider Instructions for Treatment How to access health informa tion online Indication:Family history of malignant neoplasm of gastrointestinal tract (Renamed from Family history of cancer of digestive system) Start:31-Jan-2018 Instruction Type:Patient Education How to access health informa tion online - Detail Indication:Family history of malignant neoplasm of gastrointestinal tract (Renamed from Family history of cancer of digestive system) Start:31-Jan-2018 Instruction Type:Patient Education Patient Instructions Indication:Family history of malignant neoplasm of gastrointestinal tract (Renamed from Family history of cancer of digestive system) Start:31-Jan-2018 Instruction Type:Provider Instructions for Treatment How to access health informa tion online Indication:BMI 21.0-21.9, adult Start:27-Sep-2017 Instruction Type:Patient Education How to access health informa tion online - Detail Indication:BMI 21.0-21.9, adult Start:27-Sep-2017 Instruction Type:Patient Education Patient Instructions Indication:BMI 21.0-21.9, adult Start:27-Sep-2017 Instruction Type:Provider Instructions for Treatment How to access health informa tion online Indication:BMI 22.0-22.9, adult Start:26-May-2017 Instruction Type:Patient Education How to access health informa tion online - Detail Indication:BMI 22.0-22.9, adult Start:26-May-2017 Instruction Type:Patient Education Patient Instructions Indication:BMI 22.0-22.9, adult Start:26-May-2017 Instruction Type:Provider Instructions for Treatment How to access health informa tion online Indication:Current nonsmoker (Renamed from Current non-smoker) Start:18-Jan-2017 Instruction Type:Patient Education How to access health informa tion online - Detail Indication:Current nonsmoker (Renamed from Current non-smoker) Start:18-Jan-2017 Instruction Type:Patient Education Patient Instructions Indication:Current nonsmoker (Renamed from Current non-smoker) Start:18-Jan-2017 Instruction Type:Provider Instructions for Treatment How to access health informa tion online Indication:[facility] Start:14-Sep-2016 Instruction Type:Patient Education How to access health informa tion online - Detail Indication:[facility] Start:14-Sep-2016 Instruction Type:Patient Education Patient Instructions Indication:[facility] Start:14-Sep-2016 Instruction Type:Provider Instructions for Treatment How to access health informa tion online Indication:Osteoporosis Start:15-Apr-2016 Instruction Type:Patient Education How to access health informa tion online - Detail Indication:Osteoporosis Start:15-Apr-2016 Instruction Type:Patient Education Patient Instructions Indication:Osteoporosis Start:15-Apr-2016 Instruction Type:Provider Instructions for Treatment How to access health informa tion online Indication:[facility] Start:11-Sep-2015 Instruction Type:Patient Education How to access health informa tion online - Detail Indication:[facility] Start:11-Sep-2015 Instruction Type:Patient Education Patient Instructions Indication:[facility] Start:11-Sep-2015 Instruction Type:Provider Instructions for Treatment How to access health informa tion online Indication:Low Back Pain Start:17-Feb-2015 Instruction Type:Patient Education How to access health informa tion online - Detail Indication:Low Back Pain Start:17-Feb-2015 Instruction Type:Patient Education Patient Instructions Indication:Low Back Pain Start:17-Feb-2015 Instruction Type:Provider Instructions for Treatment Patient Instructions Indication:Encounter for Medicare annual wellness exam Start:27-Aug-2014 Instruction Type:Provider Instructions for Treatment How to access health informa tion online Indication:Encounter for Medicare annual wellness exam Start:27-Aug-2014 Instruction Type:Patient Education How to access health informa tion online - Detail Indication:Encounter for Medicare annual wellness exam Start:27-Aug-2014 Instruction Type:Patient Education Patient Instructions Indication:Headache Start:23-Apr-2014 Instruction Type:Provider Instructions for Treatment Patient Instructions Indication:Osteopenia Start:02-Aug-2013 Instruction Type:Provider Instructions for Treatment Patient Instructions Indication:Ultrasound scan abnormal Start:22-Mar-2013 Instruction Type:Provider Instructions for Treatment Patient Instructions Indication:Abdominal pain, acute, generalized Start:13-Feb-2013 Instruction Type:Provider Instructions for Treatment Patient Instructions Indication:Encounter for Medicare annual wellness exam Start:20-Aug-2012 Instruction Type:Provider Instructions for Treatment Patient Instructions Indication:Elevated blood-pressure reading without diagnosis of hypertension Start:11-Jul-2012 Instruction Type:Provider Instructions for Treatment Patient Instructions Indication:Osteopenia Start:11-Apr-2012 Instruction Type:Provider Instructions for Treatment [facility]; [facility] Work Phone: Instructions* Name Dates Details Patient Instructions Indication:Elevated hemoglobin A1c Start:03-Jun-2022 Instruction Type:Provider Instructions for Treatment How to Access Health Informa tion Online using Patient Portal and [employer]rd [employer] Apps Indication:Elevated hemoglobin A1c Start:03-Jun-2022 Instruction Type:Patient Education Patient Instructions Indication:[facility] Start:11-Jan-2022 Instruction Type:Provider Instructions for Treatment How to Access Health Informa tion Online using Patient Portal and [employer]rd [employer] Apps Indication:[facility] EX[facility] Start:11-Jan-2022 Instruction Type:Patient Education Patient Instructions Indication:BMI 22.0-22.9, adult Start:10-Sep-2021 Instruction Type:Provider Instructions for Treatment How to Access Health Informa tion Online using Patient Portal and [employer]rd [employer] Apps Indication:BMI 22.0-22.9, adult Start:10-Sep-2021 Instruction Type:Patient Education Patient Instructions Indication:Elevated hemoglobin A1c Start:26-May-2021 Instruction Type:Provider Instructions for Treatment How to Access Health Informa tion Online using Patient Portal and [employer]rd [employer] Apps Indication:Elevated hemoglobin A1c Start:26-May-2021 Instruction Type:Patient Education Patient Instructions Indication:[facility] Start:15-Jan-2021 Instruction Type:Provider Instructions for Treatment How to Access Health Informa tion Online using Patient Portal and [employer]rd [employer] Apps Indication:[facility] Start:15-Jan-2021 Instruction Type:Patient Education Patient Instructions Indication:Anemia Start:02-Nov-2020 Instruction Type:Provider Instructions for Treatment How to Access Health Informa tion Online using Patient Portal and [employer]rd [employer] Apps Indication:Anemia Start:02-Nov-2020 Instruction Type:Patient Education Patient Instructions Indication:Nonsmoker Start:28-Jul-2020 Instruction Type:Provider Instructions for Treatment How to Access Health Informa tion Online using Patient Portal and [employer]rd [employer] Apps Indication:Nonsmoker Start:28-Jul-2020 Instruction Type:Patient Education Patient Instructions Indication:Elevated hemoglobin A1c Start:29-Apr-2020 Instruction Type:Provider Instructions for Treatment How to Access Health Informa tion Online using Patient Portal and [employer]rd [employer] Apps Indication:Elevated hemoglobin A1c Start:29-Apr-2020 Instruction Type:Patient Education Patient Instructions Indication:Abdominal pain Start:01-Apr-2020 Instruction Type:Provider Instructions for Treatment Patient Instructions Indication:Diarrhea Start:27-Mar-2020 Instruction Type:Provider Instructions for Treatment Patient Instructions Indication:Diarrhea Start:26-Mar-2020 Instruction Type:Provider Instructions for Treatment Patient Instructions Indication:Nonsmoker Start:23-Mar-2020 Instruction Type:Provider Instructions for Treatment How to Access Health Informa tion Online using Patient Portal and [employer]rd [employer] Apps Indication:Nonsmoker Start:23-Mar-2020 Instruction Type:Patient Education Patient Instructions Indication:Abdominal pain Start:09-Mar-2020 Instruction Type:Provider Instructions for Treatment How to Access Health Informa tion Online using Patient Portal and [employer]rd [employer] Apps Indication:Abdominal pain Start:09-Mar-2020 Instruction Type:Patient Education How to access health informa tion online Indication:Nonsmoker Start:14-Jan-2020 Instruction Type:Patient Education How to access health informa tion online - Detail Indication:Nonsmoker Start:14-Jan-2020 Instruction Type:Patient Education Patient Instructions Indication:Nonsmoker Start:14-Jan-2020 Instruction Type:Provider Instructions for Treatment How to access health informa tion online Indication:Lymphocytosis Start:18-Sep-2019 Instruction Type:Patient Education How to access health informa tion online - Detail Indication:Lymphocytosis Start:18-Sep-2019 Instruction Type:Patient Education Patient Instructions Indication:Lymphocytosis Start:18-Sep-2019 Instruction Type:Provider Instructions for Treatment Patient Instructions Indication:Elevated hemoglobin A1c Start:18-Jun-2019 Instruction Type:Provider Instructions for Treatment How to access health informa tion online Indication:Abnormal lung function test Start:19-Mar-2019 Instruction Type:Patient Education How to access health informa tion online - Detail Indication:Abnormal lung function test Start:19-Mar-2019 Instruction Type:Patient Education Patient Instructions Indication:Abnormal lung function test Start:19-Mar-2019 Instruction Type:Provider Instructions for Treatment How to access health informa tion online Indication:[facility] EX[facility] Start:30-Jan-2019 Instruction Type:Patient Education How to access health informa tion online - Detail Indication:[facility] Start:30-Jan-2019 Instruction Type:Patient Education Patient Instructions Indication:[facility] Start:30-Jan-2019 Instruction Type:Provider Instructions for Treatment How to access health informa tion online Indication:Elevated hemoglobin A1c Start:29-Oct-2018 Instruction Type:Patient Education How to access health informa tion online - Detail Indication:Elevated hemoglobin A1c Start:29-Oct-2018 Instruction Type:Patient Education Patient Instructions Indication:Elevated hemoglobin A1c Start:29-Oct-2018 Instruction Type:Provider Instructions for Treatment How to access health informa tion online Indication:Syncope Start:20-Jul-2018 Instruction Type:Patient Education How to access health informa tion online - Detail Indication:Syncope Start:20-Jul-2018 Instruction Type:Patient Education Patient Instructions Indication:Syncope Start:20-Jul-2018 Instruction Type:Provider Instructions for Treatment How to access health informa tion online Indication:Syncope Start:09-Jul-2018 Instruction Type:Patient Education How to access health informa tion online - Detail Indication:Syncope Start:09-Jul-2018 Instruction Type:Patient Education Patient Instructions Indication:Syncope Start:09-Jul-2018 Instruction Type:Provider Instructions for Treatment How to access health informa tion online Indication:Syncope Start:29-Jun-2018 Instruction Type:Patient Education How to access health informa tion online - Detail Indication:Syncope Start:29-Jun-2018 Instruction Type:Patient Education Patient Instructions Indication:Syncope Start:29-Jun-2018 Instruction Type:Provider Instructions for Treatment How to access health informa tion online Indication:Lymphocytosis Start:01-Jun-2018 Instruction Type:Patient Education How to access health informa tion online - Detail Indication:Lymphocytosis Start:01-Jun-2018 Instruction Type:Patient Education Patient Instructions Indication:Lymphocytosis Start:01-Jun-2018 Instruction Type:Provider Instructions for Treatment How to access health informa tion online Indication:Family history of malignant neoplasm of gastrointestinal tract (Renamed from Family history of cancer of digestive system) Start:31-Jan-2018 Instruction Type:Patient Education How to access health informa tion online - Detail Indication:Family history of malignant neoplasm of gastrointestinal tract (Renamed from Family history of cancer of digestive system) Start:31-Jan-2018 Instruction Type:Patient Education Patient Instructions Indication:Family history of malignant neoplasm of gastrointestinal tract (Renamed from Family history of cancer of digestive system) Start:31-Jan-2018 Instruction Type:Provider Instructions for Treatment How to access health informa tion online Indication:BMI 21.0-21.9, adult Start:27-Sep-2017 Instruction Type:Patient Education How to access health informa tion online - Detail Indication:BMI 21.0-21.9, adult Start:27-Sep-2017 Instruction Type:Patient Education Patient Instructions Indication:BMI 21.0-21.9, adult Start:27-Sep-2017 Instruction Type:Provider Instructions for Treatment How to access health informa tion online Indication:BMI 22.0-22.9, adult Start:26-May-2017 Instruction Type:Patient Education How to access health informa tion online - Detail Indication:BMI 22.0-22.9, adult Start:26-May-2017 Instruction Type:Patient Education Patient Instructions Indication:BMI 22.0-22.9, adult Start:26-May-2017 Instruction Type:Provider Instructions for Treatment How to access health informa tion online Indication:Current nonsmoker (Renamed from Current non-smoker) Start:18-Jan-2017 Instruction Type:Patient Education How to access health informa tion online - Detail Indication:Current nonsmoker (Renamed from Current non-smoker) Start:18-Jan-2017 Instruction Type:Patient Education Patient Instructions Indication:Current nonsmoker (Renamed from Current non-smoker) Start:18-Jan-2017 Instruction Type:Provider Instructions for Treatment How to access health informa tion online Indication:[facility] EXAM Start:14-Sep-2016 Instruction Type:Patient Education How to access health informa tion online - Detail Indication:[facility] Start:14-Sep-2016 Instruction Type:Patient Education Patient Instructions Indication:[facility] Start:14-Sep-2016 Instruction Type:Provider Instructions for Treatment How to access health informa tion online Indication:Osteoporosis Start:15-Apr-2016 Instruction Type:Patient Education How to access health informa tion online - Detail Indication:Osteoporosis Start:15-Apr-2016 Instruction Type:Patient Education Patient Instructions Indication:Osteoporosis Start:15-Apr-2016 Instruction Type:Provider Instructions for Treatment How to access health informa tion online Indication:[facility] Start:11-Sep-2015 Instruction Type:Patient Education How to access health informa tion online - Detail Indication[facility] Start:11-Sep-2015 Instruction Type:Patient Education Patient Instructions Indication:[facility] Start:11-Sep-2015 Instruction Type:Provider Instructions for Treatment How to access health informa tion online Indication:Low Back Pain Start:17-Feb-2015 Instruction Type:Patient Education How to access health informa tion online - Detail Indication:Low Back Pain Start:17-Feb-2015 Instruction Type:Patient Education Patient Instructions Indication:Low Back Pain Start:17-Feb-2015 Instruction Type:Provider Instructions for Treatment Patient Instructions Indication:Encounter for Medicare annual wellness exam Start:27-Aug-2014 Instruction Type:Provider Instructions for Treatment How to access health informa tion online Indication:Encounter for Medicare annual wellness exam Start:27-Aug-2014 Instruction Type:Patient Education How to access health informa tion online - Detail Indication:Encounter for Medicare annual wellness exam Start:27-Aug-2014 Instruction Type:Patient Education Patient Instructions Indication:Headache Start:23-Apr-2014 Instruction Type:Provider Instructions for Treatment Patient Instructions Indication:Osteopenia Start:02-Aug-2013 Instruction Type:Provider Instructions for Treatment Patient Instructions Indication:Ultrasound scan abnormal Start:22-Mar-2013 Instruction Type:Provider Instructions for Treatment Patient Instructions Indication:Abdominal pain, acute, generalized Start:13-Feb-2013 Instruction Type:Provider Instructions for Treatment Patient Instructions Indication:Encounter for Medicare annual wellness exam Start:20-Aug-2012 Instruction Type:Provider Instructions for Treatment Patient Instructions Indication:Elevated blood-pressure reading without diagnosis of hypertension Start:11-Jul-2012 Instruction Type:Provider Instructions for Treatment Patient Instructions Indication:Osteopenia Start:11-Apr-2012 Instruction Type:Provider Instructions for Treatment [facility]; [facility] Work Phone: Instructions* Name Dates Details Patient Instructions Indication:BMI 22.0-22.9, adult Start:12-Sep-2022 Instruction Type:Provider Instructions for Treatment How to Access Health Informa tion Online using Patient Portal and [employer] Apps Indication:BMI 22.0-22.9, adult Start:12-Sep-2022 Instruction Type:Patient Education Patient Instructions Indication:Elevated hemoglobin A1c Start:03-Jun-2022 Instruction Type:Provider Instructions for Treatment How to Access Health Informa tion Online using Patient Portal and [employer] Apps Indication:Elevated hemoglobin A1c Start:03-Jun-2022 Instruction Type:Patient Education Patient Instructions Indication:[facility] Start:11-Jan-2022 Instruction Type:Provider Instructions for Treatment How to Access Health Informa tion Online using Patient Portal and [employer] Apps Indication:[facility] Start:11-Jan-2022 Instruction Type:Patient Education Patient Instructions Indication:BMI 22.0-22.9, adult Start:10-Sep-2021 Instruction Type:Provider Instructions for Treatment How to Access Health Informa tion Online using Patient Portal and [employer] Apps Indication:BMI 22.0-22.9, adult Start:10-Sep-2021 Instruction Type:Patient Education Patient Instructions Indication:Elevated hemoglobin A1c Start:26-May-2021 Instruction Type:Provider Instructions for Treatment How to Access Health Informa tion Online using Patient Portal and [employer] Apps Indication:Elevated hemoglobin A1c Start:26-May-2021 Instruction Type:Patient Education Patient Instructions Indication:[facility] Start:15-Jan-2021 Instruction Type:Provider Instructions for Treatment How to Access Health Informa tion Online using Patient Portal and [employer] Apps Indication:[facility] EX[facility] Start:15-Jan-2021 Instruction Type:Patient Education Patient Instructions Indication:Anemia Start:02-Nov-2020 Instruction Type:Provider Instructions for Treatment How to Access Health Informa tion Online using Patient Portal and [employer] Apps Indication:Anemia Start:02-Nov-2020 Instruction Type:Patient Education Patient Instructions Indication:Nonsmoker Start:28-Jul-2020 Instruction Type:Provider Instructions for Treatment How to Access Health Informa tion Online using Patient Portal and [employer] Apps Indication:Nonsmoker Start:28-Jul-2020 Instruction Type:Patient Education Patient Instructions Indication:Elevated hemoglobin A1c Start:29-Apr-2020 Instruction Type:Provider Instructions for Treatment How to Access Health Informa tion Online using Patient Portal and [employer] Apps Indication:Elevated hemoglobin A1c Start:29-Apr-2020 Instruction Type:Patient Education Patient Instructions Indication:Abdominal pain Start:01-Apr-2020 Instruction Type:Provider Instructions for Treatment Patient Instructions Indication:Diarrhea Start:27-Mar-2020 Instruction Type:Provider Instructions for Treatment Patient Instructions Indication:Diarrhea Start:26-Mar-2020 Instruction Type:Provider Instructions for Treatment Patient Instructions Indication:Nonsmoker Start:23-Mar-2020 Instruction Type:Provider Instructions for Treatment How to Access Health Informa tion Online using Patient Portal and [employer] Apps Indication:Nonsmoker Start:23-Mar-2020 Instruction Type:Patient Education Patient Instructions Indication:Abdominal pain Start:09-Mar-2020 Instruction Type:Provider Instructions for Treatment How to Access Health Informa tion Online using Patient Portal and [employer] Apps Indication:Abdominal pain Start:09-Mar-2020 Instruction Type:Patient Education How to access health informa tion online Indication:Nonsmoker Start:14-Jan-2020 Instruction Type:Patient Education How to access health informa tion online - Detail Indication:Nonsmoker Start:14-Jan-2020 Instruction Type:Patient Education Patient Instructions Indication:Nonsmoker Start:14-Jan-2020 Instruction Type:Provider Instructions for Treatment How to access health informa tion online Indication:Lymphocytosis Start:18-Sep-2019 Instruction Type:Patient Education How to access health informa tion online - Detail Indication:Lymphocytosis Start:18-Sep-2019 Instruction Type:Patient Education Patient Instructions Indication:Lymphocytosis Start:18-Sep-2019 Instruction Type:Provider Instructions for Treatment Patient Instructions Indication:Elevated hemoglobin A1c Start:18-Jun-2019 Instruction Type:Provider Instructions for Treatment How to access health informa tion online Indication:Abnormal lung function test Start:19-Mar-2019 Instruction Type:Patient Education How to access health informa tion online - Detail Indication:Abnormal lung function test Start:19-Mar-2019 Instruction Type:Patient Education Patient Instructions Indication:Abnormal lung function test Start:19-Mar-2019 Instruction Type:Provider Instructions for Treatment How to access health informa tion online Indication:[facility] Start:30-Jan-2019 Instruction Type:Patient Education How to access health informa tion online - Detail Indication:[facility] Start:30-Jan-2019 Instruction Type:Patient Education Patient Instructions Indication:[facility] Start:30-Jan-2019 Instruction Type:Provider Instructions for Treatment How to access health informa tion online Indication:Elevated hemoglobin A1c Start:29-Oct-2018 Instruction Type:Patient Education How to access health informa tion online - Detail Indication:Elevated hemoglobin A1c Start:29-Oct-2018 Instruction Type:Patient Education Patient Instructions Indication:Elevated hemoglobin A1c Start:29-Oct-2018 Instruction Type:Provider Instructions for Treatment How to access health informa tion online Indication:Syncope Start:20-Jul-2018 Instruction Type:Patient Education How to access health informa tion online - Detail Indication:Syncope Start:20-Jul-2018 Instruction Type:Patient Education Patient Instructions Indication:Syncope Start:20-Jul-2018 Instruction Type:Provider Instructions for Treatment How to access health informa tion online Indication:Syncope Start:09-Jul-2018 Instruction Type:Patient Education How to access health informa tion online - Detail Indication:Syncope Start:09-Jul-2018 Instruction Type:Patient Education Patient Instructions Indication:Syncope Start:09-Jul-2018 Instruction Type:Provider Instructions for Treatment How to access health informa tion online Indication:Syncope Start:29-Jun-2018 Instruction Type:Patient Education How to access health informa tion online - Detail Indication:Syncope Start:29-Jun-2018 Instruction Type:Patient Education Patient Instructions Indication:Syncope Start:29-Jun-2018 Instruction Type:Provider Instructions for Treatment How to access health informa tion online Indication:Lymphocytosis Start:01-Jun-2018 Instruction Type:Patient Education How to access health informa tion online - Detail Indication:Lymphocytosis Start:01-Jun-2018 Instruction Type:Patient Education Patient Instructions Indication:Lymphocytosis Start:01-Jun-2018 Instruction Type:Provider Instructions for Treatment How to access health informa tion online Indication:Family history of malignant neoplasm of gastrointestinal tract (Renamed from Family history of cancer of digestive system) Start:31-Jan-2018 Instruction Type:Patient Education How to access health informa tion online - Detail Indication:Family history of malignant neoplasm of gastrointestinal tract (Renamed from Family history of cancer of digestive system) Start:31-Jan-2018 Instruction Type:Patient Education Patient Instructions Indication:Family history of malignant neoplasm of gastrointestinal tract (Renamed from Family history of cancer of digestive system) Start:31-Jan-2018 Instruction Type:Provider Instructions for Treatment How to access health informa tion online Indication:BMI 21.0-21.9, adult Start:27-Sep-2017 Instruction Type:Patient Education How to access health informa tion online - Detail Indication:BMI 21.0-21.9, adult Start:27-Sep-2017 Instruction Type:Patient Education Patient Instructions Indication:BMI 21.0-21.9, adult Start:27-Sep-2017 Instruction Type:Provider Instructions for Treatment How to access health informa tion online Indication:BMI 22.0-22.9, adult Start:26-May-2017 Instruction Type:Patient Education How to access health informa tion online - Detail Indication:BMI 22.0-22.9, adult Start:26-May-2017 Instruction Type:Patient Education Patient Instructions Indication:BMI 22.0-22.9, adult Start:26-May-2017 Instruction Type:Provider Instructions for Treatment How to access health informa tion online Indication:Current nonsmoker (Renamed from Current non-smoker) Start:18-Jan-2017 Instruction Type:Patient Education How to access health informa tion online - Detail Indication:Current nonsmoker (Renamed from Current non-smoker) Start:18-Jan-2017 Instruction Type:Patient Education Patient Instructions Indication:Current nonsmoker (Renamed from Current non-smoker) Start:18-Jan-2017 Instruction Type:Provider Instructions for Treatment How to access health informa tion online Indication:[facility] Start:14-Sep-2016 Instruction Type:Patient Education How to access health informa tion online - Detail Indication:[facility] Start:14-Sep-2016 Instruction Type:Patient Education Patient Instructions Indication:[facility] Start:14-Sep-2016 Instruction Type:Provider Instructions for Treatment How to access health informa tion online Indication:Osteoporosis Start:15-Apr-2016 Instruction Type:Patient Education How to access health informa tion online - Detail Indication:Osteoporosis Start:15-Apr-2016 Instruction Type:Patient Education Patient Instructions Indication:Osteoporosis Start:15-Apr-2016 Instruction Type:Provider Instructions for Treatment How to access health informa tion online Indication:[facility] Start:11-Sep-2015 Instruction Type:Patient Education How to access health informa tion online - Detail Indication:[facility] EX[facility] Start:11-Sep-2015 Instruction Type:Patient Education Patient Instructions Indication:[facility] Start:11-Sep-2015 Instruction Type:Provider Instructions for Treatment How to access health informa tion online Indication:Low Back Pain Start:17-Feb-2015 Instruction Type:Patient Education How to access health informa tion online - Detail Indication:Low Back Pain Start:17-Feb-2015 Instruction Type:Patient Education Patient Instructions Indication:Low Back Pain Start:17-Feb-2015 Instruction Type:Provider Instructions for Treatment Patient Instructions Indication:Encounter for Medicare annual wellness exam Start:27-Aug-2014 Instruction Type:Provider Instructions for Treatment How to access health informa tion online Indication:Encounter for Medicare annual wellness exam Start:27-Aug-2014 Instruction Type:Patient Education How to access health informa tion online - Detail Indication:Encounter for Medicare annual wellness exam Start:27-Aug-2014 Instruction Type:Patient Education Patient Instructions Indication:Headache Start:23-Apr-2014 Instruction Type:Provider Instructions for Treatment Patient Instructions Indication:Osteopenia Start:02-Aug-2013 Instruction Type:Provider Instructions for Treatment Patient Instructions Indication:Ultrasound scan abnormal Start:22-Mar-2013 Instruction Type:Provider Instructions for Treatment Patient Instructions Indication:Abdominal pain, acute, generalized Start:13-Feb-2013 Instruction Type:Provider Instructions for Treatment Patient Instructions Indication:Encounter for Medicare annual wellness exam Start:20-Aug-2012 Instruction Type:Provider Instructions for Treatment Patient Instructions Indication:Elevated blood-pressure reading without diagnosis of hypertension Start:11-Jul-2012 Instruction Type:Provider Instructions for Treatment Patient Instructions Indication:Osteopenia Start:11-Apr-2012 Instruction Type:Provider Instructions for Treatment [facility]; [facility] Work Phone: Instructions* Name Dates Details Patient Instructions Indication:BMI 22.0-22.9, adult Start:12-Sep-2022 Instruction Type:Provider Instructions for Treatment How to Access Health Informa tion Online using Patient Portal and [employer] Apps Indication:BMI 22.0-22.9, adult Start:12-Sep-2022 Instruction Type:Patient Education Patient Instructions Indication:Elevated hemoglobin A1c Start:03-Jun-2022 Instruction Type:Provider Instructions for Treatment How to Access Health Informa tion Online using Patient Portal and [employer] Apps Indication:Elevated hemoglobin A1c Start:03-Jun-2022 Instruction Type:Patient Education Patient Instructions Indication:[facility] Start:11-Jan-2022 Instruction Type:Provider Instructions for Treatment How to Access Health Informa tion Online using Patient Portal and [employer] Apps Indication:[facility] EX[facility] Start:11-Jan-2022 Instruction Type:Patient Education Patient Instructions Indication:BMI 22.0-22.9, adult Start:10-Sep-2021 Instruction Type:Provider Instructions for Treatment How to Access Health Informa tion Online using Patient Portal and [employer] Apps Indication:BMI 22.0-22.9, adult Start:10-Sep-2021 Instruction Type:Patient Education Patient Instructions Indication:Elevated hemoglobin A1c Start:26-May-2021 Instruction Type:Provider Instructions for Treatment How to Access Health Informa tion Online using Patient Portal and [employer] Apps Indication:Elevated hemoglobin A1c Start:26-May-2021 Instruction Type:Patient Education Patient Instructions Indication:[facility] Start:15-Jan-2021 Instruction Type:Provider Instructions for Treatment How to Access Health Informa tion Online using Patient Portal and [employer] Apps Indication:[facility] EX[facility] Start:15-Jan-2021 Instruction Type:Patient Education Patient Instructions Indication:Anemia Start:02-Nov-2020 Instruction Type:Provider Instructions for Treatment How to Access Health Informa tion Online using Patient Portal and [employer] Apps Indication:Anemia Start:02-Nov-2020 Instruction Type:Patient Education Patient Instructions Indication:Nonsmoker Start:28-Jul-2020 Instruction Type:Provider Instructions for Treatment How to Access Health Informa tion Online using Patient Portal and [employer] Apps Indication:Nonsmoker Start:28-Jul-2020 Instruction Type:Patient Education Patient Instructions Indication:Elevated hemoglobin A1c Start:29-Apr-2020 Instruction Type:Provider Instructions for Treatment How to Access Health Informa tion Online using Patient Portal and [employer] Apps Indication:Elevated hemoglobin A1c Start:29-Apr-2020 Instruction Type:Patient Education Patient Instructions Indication:Abdominal pain Start:01-Apr-2020 Instruction Type:Provider Instructions for Treatment Patient Instructions Indication:Diarrhea Start:27-Mar-2020 Instruction Type:Provider Instructions for Treatment Patient Instructions Indication:Diarrhea Start:26-Mar-2020 Instruction Type:Provider Instructions for Treatment Patient Instructions Indication:Nonsmoker Start:23-Mar-2020 Instruction Type:Provider Instructions for Treatment How to Access Health Informa tion Online using Patient Portal and [employer] Apps Indication:Nonsmoker Start:23-Mar-2020 Instruction Type:Patient Education Patient Instructions Indication:Abdominal pain Start:09-Mar-2020 Instruction Type:Provider Instructions for Treatment How to Access Health Informa tion Online using Patient Portal and [employer] Apps Indication:Abdominal pain Start:09-Mar-2020 Instruction Type:Patient Education How to access health informa tion online Indication:Nonsmoker Start:14-Jan-2020 Instruction Type:Patient Education How to access health informa tion online - Detail Indication:Nonsmoker Start:14-Jan-2020 Instruction Type:Patient Education Patient Instructions Indication:Nonsmoker Start:14-Jan-2020 Instruction Type:Provider Instructions for Treatment How to access health informa tion online Indication:Lymphocytosis Start:18-Sep-2019 Instruction Type:Patient Education How to access health informa tion online - Detail Indication:Lymphocytosis Start:18-Sep-2019 Instruction Type:Patient Education Patient Instructions Indication:Lymphocytosis Start:18-Sep-2019 Instruction Type:Provider Instructions for Treatment Patient Instructions Indication:Elevated hemoglobin A1c Start:18-Jun-2019 Instruction Type:Provider Instructions for Treatment How to access health informa tion online Indication:Abnormal lung function test Start:19-Mar-2019 Instruction Type:Patient Education How to access health informa tion online - Detail Indication:Abnormal lung function test Start:19-Mar-2019 Instruction Type:Patient Education Patient Instructions Indication:Abnormal lung function test Start:19-Mar-2019 Instruction Type:Provider Instructions for Treatment How to access health informa tion online Indication:[facility] Start:30-Jan-2019 Instruction Type:Patient Education How to access health informa tion online - Detail Indication:[facility] Start:30-Jan-2019 Instruction Type:Patient Education Patient Instructions Indication:[facility] EX[facility] Start:30-Jan-2019 Instruction Type:Provider Instructions for Treatment How to access health informa tion online Indication:Elevated hemoglobin A1c Start:29-Oct-2018 Instruction Type:Patient Education How to access health informa tion online - Detail Indication:Elevated hemoglobin A1c Start:29-Oct-2018 Instruction Type:Patient Education Patient Instructions Indication:Elevated hemoglobin A1c Start:29-Oct-2018 Instruction Type:Provider Instructions for Treatment How to access health informa tion online Indication:Syncope Start:20-Jul-2018 Instruction Type:Patient Education How to access health informa tion online - Detail Indication:Syncope Start:20-Jul-2018 Instruction Type:Patient Education Patient Instructions Indication:Syncope Start:20-Jul-2018 Instruction Type:Provider Instructions for Treatment How to access health informa tion online Indication:Syncope Start:09-Jul-2018 Instruction Type:Patient Education How to access health informa tion online - Detail Indication:Syncope Start:09-Jul-2018 Instruction Type:Patient Education Patient Instructions Indication:Syncope Start:09-Jul-2018 Instruction Type:Provider Instructions for Treatment How to access health informa tion online Indication:Syncope Start:29-Jun-2018 Instruction Type:Patient Education How to access health informa tion online - Detail Indication:Syncope Start:29-Jun-2018 Instruction Type:Patient Education Patient Instructions Indication:Syncope Start:29-Jun-2018 Instruction Type:Provider Instructions for Treatment How to access health informa tion online Indication:Lymphocytosis Start:01-Jun-2018 Instruction Type:Patient Education How to access health informa tion online - Detail Indication:Lymphocytosis Start:01-Jun-2018 Instruction Type:Patient Education Patient Instructions Indication:Lymphocytosis Start:01-Jun-2018 Instruction Type:Provider Instructions for Treatment How to access health informa tion online Indication:Family history of malignant neoplasm of gastrointestinal tract (Renamed from Family history of cancer of digestive system) Start:31-Jan-2018 Instruction Type:Patient Education How to access health informa tion online - Detail Indication:Family history of malignant neoplasm of gastrointestinal tract (Renamed from Family history of cancer of digestive system) Start:31-Jan-2018 Instruction Type:Patient Education Patient Instructions Indication:Family history of malignant neoplasm of gastrointestinal tract (Renamed from Family history of cancer of digestive system) Start:31-Jan-2018 Instruction Type:Provider Instructions for Treatment How to access health informa tion online Indication:BMI 21.0-21.9, adult Start:27-Sep-2017 Instruction Type:Patient Education How to access health informa tion online - Detail Indication:BMI 21.0-21.9, adult Start:27-Sep-2017 Instruction Type:Patient Education Patient Instructions Indication:BMI 21.0-21.9, adult Start:27-Sep-2017 Instruction Type:Provider Instructions for Treatment How to access health informa tion online Indication:BMI 22.0-22.9, adult Start:26-May-2017 Instruction Type:Patient Education How to access health informa tion online - Detail Indication:BMI 22.0-22.9, adult Start:26-May-2017 Instruction Type:Patient Education Patient Instructions Indication:BMI 22.0-22.9, adult Start:26-May-2017 Instruction Type:Provider Instructions for Treatment How to access health informa tion online Indication:Current nonsmoker (Renamed from Current non-smoker) Start:18-Jan-2017 Instruction Type:Patient Education How to access health informa tion online - Detail Indication:Current nonsmoker (Renamed from Current non-smoker) Start:18-Jan-2017 Instruction Type:Patient Education Patient Instructions Indication:Current nonsmoker (Renamed from Current non-smoker) Start:18-Jan-2017 Instruction Type:Provider Instructions for Treatment How to access health informa tion online Indication:[facility] EX[facility] Start:14-Sep-2016 Instruction Type:Patient Education How to access health informa tion online - Detail Indication:[facility] Start:14-Sep-2016 Instruction Type:Patient Education Patient Instructions Indication:[facility] Start:14-Sep-2016 Instruction Type:Provider Instructions for Treatment How to access health informa tion online Indication:Osteoporosis Start:15-Apr-2016 Instruction Type:Patient Education How to access health informa tion online - Detail Indication:Osteoporosis Start:15-Apr-2016 Instruction Type:Patient Education Patient Instructions Indication:Osteoporosis Start:15-Apr-2016 Instruction Type:Provider Instructions for Treatment How to access health informa tion online Indication:[facility] Start:11-Sep-2015 Instruction Type:Patient Education How to access health informa tion online - Detail Indication:[facility] Start:11-Sep-2015 Instruction Type:Patient Education Patient Instructions Indication:[facility] Start:11-Sep-2015 Instruction Type:Provider Instructions for Treatment How to access health informa tion online Indication:Low Back Pain Start:17-Feb-2015 Instruction Type:Patient Education How to access health informa tion online - Detail Indication:Low Back Pain Start:17-Feb-2015 Instruction Type:Patient Education Patient Instructions Indication:Low Back Pain Start:17-Feb-2015 Instruction Type:Provider Instructions for Treatment Patient Instructions Indication:Encounter for Medicare annual wellness exam Start:27-Aug-2014 Instruction Type:Provider Instructions for Treatment How to access health informa tion online Indication:Encounter for Medicare annual wellness exam Start:27-Aug-2014 Instruction Type:Patient Education How to access health informa tion online - Detail Indication:Encounter for Medicare annual wellness exam Start:27-Aug-2014 Instruction Type:Patient Education Patient Instructions Indication:Headache Start:23-Apr-2014 Instruction Type:Provider Instructions for Treatment Patient Instructions Indication:Osteopenia Start:02-Aug-2013 Instruction Type:Provider Instructions for Treatment Patient Instructions Indication:Ultrasound scan abnormal Start:22-Mar-2013 Instruction Type:Provider Instructions for Treatment Patient Instructions Indication:Abdominal pain, acute, generalized Start:13-Feb-2013 Instruction Type:Provider Instructions for Treatment Patient Instructions Indication:Encounter for Medicare annual wellness exam Start:20-Aug-2012 Instruction Type:Provider Instructions for Treatment Patient Instructions Indication:Elevated blood-pressure reading without diagnosis of hypertension Start:11-Jul-2012 Instruction Type:Provider Instructions for Treatment Patient Instructions Indication:Osteopenia Start:11-Apr-2012 Instruction Type:Provider Instructions for Treatment [facility]; [facility] Work Phone: Instructions* Name Dates Details Patient Instructions Indication:BMI 22.0-22.9, adult Start:12-Sep-2022 Instruction Type:Provider Instructions for Treatment How to Access Health Informa tion Online using Patient Portal and [employer] Apps Indication:BMI 22.0-22.9, adult Start:12-Sep-2022 Instruction Type:Patient Education Patient Instructions Indication:Elevated hemoglobin A1c Start:03-Jun-2022 Instruction Type:Provider Instructions for Treatment How to Access Health Informa tion Online using Patient Portal and [employer] Apps Indication:Elevated hemoglobin A1c Start:03-Jun-2022 Instruction Type:Patient Education Patient Instructions Indication:[facility] Start:11-Jan-2022 Instruction Type:Provider Instructions for Treatment How to Access Health Informa tion Online using Patient Portal and [employer] Apps Indication:[facility] Start:11-Jan-2022 Instruction Type:Patient Education Patient Instructions Indication:BMI 22.0-22.9, adult Start:10-Sep-2021 Instruction Type:Provider Instructions for Treatment How to Access Health Informa tion Online using Patient Portal and [employer] Apps Indication:BMI 22.0-22.9, adult Start:10-Sep-2021 Instruction Type:Patient Education Patient Instructions Indication:Elevated hemoglobin A1c Start:26-May-2021 Instruction Type:Provider Instructions for Treatment How to Access Health Informa tion Online using Patient Portal and [employer] Apps Indication:Elevated hemoglobin A1c Start:26-May-2021 Instruction Type:Patient Education Patient Instructions Indication:[facility] Start:15-Jan-2021 Instruction Type:Provider Instructions for Treatment How to Access Health Informa tion Online using Patient Portal and [employer] Apps Indication:[facility] Start:15-Jan-2021 Instruction Type:Patient Education Patient Instructions Indication:Anemia Start:02-Nov-2020 Instruction Type:Provider Instructions for Treatment How to Access Health Informa tion Online using Patient Portal and [employer] Apps Indication:Anemia Start:02-Nov-2020 Instruction Type:Patient Education Patient Instructions Indication:Nonsmoker Start:28-Jul-2020 Instruction Type:Provider Instructions for Treatment How to Access Health Informa tion Online using Patient Portal and [employer] Apps Indication:Nonsmoker Start:28-Jul-2020 Instruction Type:Patient Education Patient Instructions Indication:Elevated hemoglobin A1c Start:29-Apr-2020 Instruction Type:Provider Instructions for Treatment How to Access Health Informa tion Online using Patient Portal and [employer] Apps Indication:Elevated hemoglobin A1c Start:29-Apr-2020 Instruction Type:Patient Education Patient Instructions Indication:Abdominal pain Start:01-Apr-2020 Instruction Type:Provider Instructions for Treatment Patient Instructions Indication:Diarrhea Start:27-Mar-2020 Instruction Type:Provider Instructions for Treatment Patient Instructions Indication:Diarrhea Start:26-Mar-2020 Instruction Type:Provider Instructions for Treatment Patient Instructions Indication:Nonsmoker Start:23-Mar-2020 Instruction Type:Provider Instructions for Treatment How to Access Health Informa tion Online using Patient Portal and [employer] Apps Indication:Nonsmoker Start:23-Mar-2020 Instruction Type:Patient Education Patient Instructions Indication:Abdominal pain Start:09-Mar-2020 Instruction Type:Provider Instructions for Treatment How to Access Health Informa tion Online using Patient Portal and [employer] Apps Indication:Abdominal pain Start:09-Mar-2020 Instruction Type:Patient Education How to access health informa tion online Indication:Nonsmoker Start:14-Jan-2020 Instruction Type:Patient Education How to access health informa tion online - Detail Indication:Nonsmoker Start:14-Jan-2020 Instruction Type:Patient Education Patient Instructions Indication:Nonsmoker Start:14-Jan-2020 Instruction Type:Provider Instructions for Treatment How to access health informa tion online Indication:Lymphocytosis Start:18-Sep-2019 Instruction Type:Patient Education How to access health informa tion online - Detail Indication:Lymphocytosis Start:18-Sep-2019 Instruction Type:Patient Education Patient Instructions Indication:Lymphocytosis Start:18-Sep-2019 Instruction Type:Provider Instructions for Treatment Patient Instructions Indication:Elevated hemoglobin A1c Start:18-Jun-2019 Instruction Type:Provider Instructions for Treatment How to access health informa tion online Indication:Abnormal lung function test Start:19-Mar-2019 Instruction Type:Patient Education How to access health informa tion online - Detail Indication:Abnormal lung function test Start:19-Mar-2019 Instruction Type:Patient Education Patient Instructions Indication:Abnormal lung function test Start:19-Mar-2019 Instruction Type:Provider Instructions for Treatment How to access health informa tion online Indication:[facility] Start:30-Jan-2019 Instruction Type:Patient Education How to access health informa tion online - Detail Indication:[facility] Start:30-Jan-2019 Instruction Type:Patient Education Patient Instructions Indication:[facility] Start:30-Jan-2019 Instruction Type:Provider Instructions for Treatment How to access health informa tion online Indication:Elevated hemoglobin A1c Start:29-Oct-2018 Instruction Type:Patient Education How to access health informa tion online - Detail Indication:Elevated hemoglobin A1c Start:29-Oct-2018 Instruction Type:Patient Education Patient Instructions Indication:Elevated hemoglobin A1c Start:29-Oct-2018 Instruction Type:Provider Instructions for Treatment How to access health informa tion online Indication:Syncope Start:20-Jul-2018 Instruction Type:Patient Education How to access health informa tion online - Detail Indication:Syncope Start:20-Jul-2018 Instruction Type:Patient Education Patient Instructions Indication:Syncope Start:20-Jul-2018 Instruction Type:Provider Instructions for Treatment How to access health informa tion online Indication:Syncope Start:09-Jul-2018 Instruction Type:Patient Education How to access health informa tion online - Detail Indication:Syncope Start:09-Jul-2018 Instruction Type:Patient Education Patient Instructions Indication:Syncope Start:09-Jul-2018 Instruction Type:Provider Instructions for Treatment How to access health informa tion online Indication:Syncope Start:29-Jun-2018 Instruction Type:Patient Education How to access health informa tion online - Detail Indication:Syncope Start:29-Jun-2018 Instruction Type:Patient Education Patient Instructions Indication:Syncope Start:29-Jun-2018 Instruction Type:Provider Instructions for Treatment How to access health informa tion online Indication:Lymphocytosis Start:01-Jun-2018 Instruction Type:Patient Education How to access health informa tion online - Detail Indication:Lymphocytosis Start:01-Jun-2018 Instruction Type:Patient Education Patient Instructions Indication:Lymphocytosis Start:01-Jun-2018 Instruction Type:Provider Instructions for Treatment How to access health informa tion online Indication:Family history of malignant neoplasm of gastrointestinal tract (Renamed from Family history of cancer of digestive system) Start:31-Jan-2018 Instruction Type:Patient Education How to access health informa tion online - Detail Indication:Family history of malignant neoplasm of gastrointestinal tract (Renamed from Family history of cancer of digestive system) Start:31-Jan-2018 Instruction Type:Patient Education Patient Instructions Indication:Family history of malignant neoplasm of gastrointestinal tract (Renamed from Family history of cancer of digestive system) Start:31-Jan-2018 Instruction Type:Provider Instructions for Treatment How to access health informa tion online Indication:BMI 21.0-21.9, adult Start:27-Sep-2017 Instruction Type:Patient Education How to access health informa tion online - Detail Indication:BMI 21.0-21.9, adult Start:27-Sep-2017 Instruction Type:Patient Education Patient Instructions Indication:BMI 21.0-21.9, adult Start:27-Sep-2017 Instruction Type:Provider Instructions for Treatment How to access health informa tion online Indication:BMI 22.0-22.9, adult Start:26-May-2017 Instruction Type:Patient Education How to access health informa tion online - Detail Indication:BMI 22.0-22.9, adult Start:26-May-2017 Instruction Type:Patient Education Patient Instructions Indication:BMI 22.0-22.9, adult Start:26-May-2017 Instruction Type:Provider Instructions for Treatment How to access health informa tion online Indication:Current nonsmoker (Renamed from Current non-smoker) Start:18-Jan-2017 Instruction Type:Patient Education How to access health informa tion online - Detail Indication:Current nonsmoker (Renamed from Current non-smoker) Start:18-Jan-2017 Instruction Type:Patient Education Patient Instructions Indication:Current nonsmoker (Renamed from Current non-smoker) Start:18-Jan-2017 Instruction Type:Provider Instructions for Treatment How to access health informa tion online Indication:[facility] Start:14-Sep-2016 Instruction Type:Patient Education How to access health informa tion online - Detail Indication:[facility] Start:14-Sep-2016 Instruction Type:Patient Education Patient Instructions Indication:[facility] Start:14-Sep-2016 Instruction Type:Provider Instructions for Treatment How to access health informa tion online Indication:Osteoporosis Start:15-Apr-2016 Instruction Type:Patient Education How to access health informa tion online - Detail Indication:Osteoporosis Start:15-Apr-2016 Instruction Type:Patient Education Patient Instructions Indication:Osteoporosis Start:15-Apr-2016 Instruction Type:Provider Instructions for Treatment How to access health informa tion online Indication:[facility] Start:11-Sep-2015 Instruction Type:Patient Education How to access health informa tion online - Detail Indication:[facility] Start:11-Sep-2015 Instruction Type:Patient Education Patient Instructions Indication:[facility] Start:11-Sep-2015 Instruction Type:Provider Instructions for Treatment How to access health informa tion online Indication:Low Back Pain Start:17-Feb-2015 Instruction Type:Patient Education How to access health informa tion online - Detail Indication:Low Back Pain Start:17-Feb-2015 Instruction Type:Patient Education Patient Instructions Indication:Low Back Pain Start:17-Feb-2015 Instruction Type:Provider Instructions for Treatment Patient Instructions Indication:Encounter for Medicare annual wellness exam Start:27-Aug-2014 Instruction Type:Provider Instructions for Treatment How to access health informa tion online Indication:Encounter for Medicare annual wellness exam Start:27-Aug-2014 Instruction Type:Patient Education How to access health informa tion online - Detail Indication:Encounter for Medicare annual wellness exam Start:27-Aug-2014 Instruction Type:Patient Education Patient Instructions Indication:Headache Start:23-Apr-2014 Instruction Type:Provider Instructions for Treatment Patient Instructions Indication:Osteopenia Start:02-Aug-2013 Instruction Type:Provider Instructions for Treatment Patient Instructions Indication:Ultrasound scan abnormal Start:22-Mar-2013 Instruction Type:Provider Instructions for Treatment Patient Instructions Indication:Abdominal pain, acute, generalized Start:13-Feb-2013 Instruction Type:Provider Instructions for Treatment Patient Instructions Indication:Encounter for Medicare annual wellness exam Start:20-Aug-2012 Instruction Type:Provider Instructions for Treatment Patient Instructions Indication:Elevated blood-pressure reading without diagnosis of hypertension Start:11-Jul-2012 Instruction Type:Provider Instructions for Treatment Patient Instructions Indication:Osteopenia Start:11-Apr-2012 Instruction Type:Provider Instructions for Treatment [facility]; [facility] Work Phone: Instructions* Name Dates Details Patient Instructions Indication:BMI 22.0-22.9, adult Start:12-Sep-2022 Instruction Type:Provider Instructions for Treatment How to Access Health Informa tion Online using Patient Portal and [employer] Apps Indication:BMI 22.0-22.9, adult Start:12-Sep-2022 Instruction Type:Patient Education Patient Instructions Indication:Elevated hemoglobin A1c Start:03-Jun-2022 Instruction Type:Provider Instructions for Treatment How to Access Health Informa tion Online using Patient Portal and [employer] Apps Indication:Elevated hemoglobin A1c Start:03-Jun-2022 Instruction Type:Patient Education Patient Instructions Indication:[facility] Start:11-Jan-2022 Instruction Type:Provider Instructions for Treatment How to Access Health Informa tion Online using Patient Portal and [employer] Apps Indication:[facility] Start:11-Jan-2022 Instruction Type:Patient Education Patient Instructions Indication:BMI 22.0-22.9, adult Start:10-Sep-2021 Instruction Type:Provider Instructions for Treatment How to Access Health Informa tion Online using Patient Portal and [employer] Apps Indication:BMI 22.0-22.9, adult Start:10-Sep-2021 Instruction Type:Patient Education Patient Instructions Indication:Elevated hemoglobin A1c Start:26-May-2021 Instruction Type:Provider Instructions for Treatment How to Access Health Informa tion Online using Patient Portal and [employer] Apps Indication:Elevated hemoglobin A1c Start:26-May-2021 Instruction Type:Patient Education Patient Instructions Indication:[facility] Start:15-Jan-2021 Instruction Type:Provider Instructions for Treatment How to Access Health Informa tion Online using Patient Portal and [employer] Apps Indication:[facility] Start:15-Jan-2021 Instruction Type:Patient Education Patient Instructions Indication:Anemia Start:02-Nov-2020 Instruction Type:Provider Instructions for Treatment How to Access Health Informa tion Online using Patient Portal and [employer] Apps Indication:Anemia Start:02-Nov-2020 Instruction Type:Patient Education Patient Instructions Indication:Nonsmoker Start:28-Jul-2020 Instruction Type:Provider Instructions for Treatment How to Access Health Informa tion Online using Patient Portal and [employer] Apps Indication:Nonsmoker Start:28-Jul-2020 Instruction Type:Patient Education Patient Instructions Indication:Elevated hemoglobin A1c Start:29-Apr-2020 Instruction Type:Provider Instructions for Treatment How to Access Health Informa tion Online using Patient Portal and [employer] Apps Indication:Elevated hemoglobin A1c Start:29-Apr-2020 Instruction Type:Patient Education Patient Instructions Indication:Abdominal pain Start:01-Apr-2020 Instruction Type:Provider Instructions for Treatment Patient Instructions Indication:Diarrhea Start:27-Mar-2020 Instruction Type:Provider Instructions for Treatment Patient Instructions Indication:Diarrhea Start:26-Mar-2020 Instruction Type:Provider Instructions for Treatment Patient Instructions Indication:Nonsmoker Start:23-Mar-2020 Instruction Type:Provider Instructions for Treatment How to Access Health Informa tion Online using Patient Portal and [employer] Apps Indication:Nonsmoker Start:23-Mar-2020 Instruction Type:Patient Education Patient Instructions Indication:Abdominal pain Start:09-Mar-2020 Instruction Type:Provider Instructions for Treatment How to Access Health Informa tion Online using Patient Portal and [employer] Apps Indication:Abdominal pain Start:09-Mar-2020 Instruction Type:Patient Education How to access health informa tion online Indication:Nonsmoker Start:14-Jan-2020 Instruction Type:Patient Education How to access health informa tion online - Detail Indication:Nonsmoker Start:14-Jan-2020 Instruction Type:Patient Education Patient Instructions Indication:Nonsmoker Start:14-Jan-2020 Instruction Type:Provider Instructions for Treatment How to access health informa tion online Indication:Lymphocytosis Start:18-Sep-2019 Instruction Type:Patient Education How to access health informa tion online - Detail Indication:Lymphocytosis Start:18-Sep-2019 Instruction Type:Patient Education Patient Instructions Indication:Lymphocytosis Start:18-Sep-2019 Instruction Type:Provider Instructions for Treatment Patient Instructions Indication:Elevated hemoglobin A1c Start:18-Jun-2019 Instruction Type:Provider Instructions for Treatment How to access health informa tion online Indication:Abnormal lung function test Start:19-Mar-2019 Instruction Type:Patient Education How to access health informa tion online - Detail Indication:Abnormal lung function test Start:19-Mar-2019 Instruction Type:Patient Education Patient Instructions Indication:Abnormal lung function test Start:19-Mar-2019 Instruction Type:Provider Instructions for Treatment How to access health informa tion online Indication:[facility] Start:30-Jan-2019 Instruction Type:Patient Education How to access health informa tion online - Detail Indication:[facility] Start:30-Jan-2019 Instruction Type:Patient Education Patient Instructions Indication:[facility] Start:30-Jan-2019 Instruction Type:Provider Instructions for Treatment How to access health informa tion online Indication:Elevated hemoglobin A1c Start:29-Oct-2018 Instruction Type:Patient Education How to access health informa tion online - Detail Indication:Elevated hemoglobin A1c Start:29-Oct-2018 Instruction Type:Patient Education Patient Instructions Indication:Elevated hemoglobin A1c Start:29-Oct-2018 Instruction Type:Provider Instructions for Treatment How to access health informa tion online Indication:Syncope Start:20-Jul-2018 Instruction Type:Patient Education How to access health informa tion online - Detail Indication:Syncope Start:20-Jul-2018 Instruction Type:Patient Education Patient Instructions Indication:Syncope Start:20-Jul-2018 Instruction Type:Provider Instructions for Treatment How to access health informa tion online Indication:Syncope Start:09-Jul-2018 Instruction Type:Patient Education How to access health informa tion online - Detail Indication:Syncope Start:09-Jul-2018 Instruction Type:Patient Education Patient Instructions Indication:Syncope Start:09-Jul-2018 Instruction Type:Provider Instructions for Treatment How to access health informa tion online Indication:Syncope Start:29-Jun-2018 Instruction Type:Patient Education How to access health informa tion online - Detail Indication:Syncope Start:29-Jun-2018 Instruction Type:Patient Education Patient Instructions Indication:Syncope Start:29-Jun-2018 Instruction Type:Provider Instructions for Treatment How to access health informa tion online Indication:Lymphocytosis Start:01-Jun-2018 Instruction Type:Patient Education How to access health informa tion online - Detail Indication:Lymphocytosis Start:01-Jun-2018 Instruction Type:Patient Education Patient Instructions Indication:Lymphocytosis Start:01-Jun-2018 Instruction Type:Provider Instructions for Treatment How to access health informa tion online Indication:Family history of malignant neoplasm of gastrointestinal tract (Renamed from Family history of cancer of digestive system) Start:31-Jan-2018 Instruction Type:Patient Education How to access health informa tion online - Detail Indication:Family history of malignant neoplasm of gastrointestinal tract (Renamed from Family history of cancer of digestive system) Start:31-Jan-2018 Instruction Type:Patient Education Patient Instructions Indication:Family history of malignant neoplasm of gastrointestinal tract (Renamed from Family history of cancer of digestive system) Start:31-Jan-2018 Instruction Type:Provider Instructions for Treatment How to access health informa tion online Indication:BMI 21.0-21.9, adult Start:27-Sep-2017 Instruction Type:Patient Education How to access health informa tion online - Detail Indication:BMI 21.0-21.9, adult Start:27-Sep-2017 Instruction Type:Patient Education Patient Instructions Indication:BMI 21.0-21.9, adult Start:27-Sep-2017 Instruction Type:Provider Instructions for Treatment How to access health informa tion online Indication:BMI 22.0-22.9, adult Start:26-May-2017 Instruction Type:Patient Education How to access health informa tion online - Detail Indication:BMI 22.0-22.9, adult Start:26-May-2017 Instruction Type:Patient Education Patient Instructions Indication:BMI 22.0-22.9, adult Start:26-May-2017 Instruction Type:Provider Instructions for Treatment How to access health informa tion online Indication:Current nonsmoker (Renamed from Current non-smoker) Start:18-Jan-2017 Instruction Type:Patient Education How to access health informa tion online - Detail Indication:Current nonsmoker (Renamed from Current non-smoker) Start:18-Jan-2017 Instruction Type:Patient Education Patient Instructions Indication:Current nonsmoker (Renamed from Current non-smoker) Start:18-Jan-2017 Instruction Type:Provider Instructions for Treatment How to access health informa tion online Indication:[facility] Start:14-Sep-2016 Instruction Type:Patient Education How to access health informa tion online - Detail Indication:[facility] Start:14-Sep-2016 Instruction Type:Patient Education Patient Instructions Indication:[facility] Start:14-Sep-2016 Instruction Type:Provider Instructions for Treatment How to access health informa tion online Indication:Osteoporosis Start:15-Apr-2016 Instruction Type:Patient Education How to access health informa tion online - Detail Indication:Osteoporosis Start:15-Apr-2016 Instruction Type:Patient Education Patient Instructions Indication:Osteoporosis Start:15-Apr-2016 Instruction Type:Provider Instructions for Treatment How to access health informa tion online Indication:[facility] Start:11-Sep-2015 Instruction Type:Patient Education How to access health informa tion online - Detail Indication:[facility] Start:11-Sep-2015 Instruction Type:Patient Education Patient Instructions Indication:[facility] Start:11-Sep-2015 Instruction Type:Provider Instructions for Treatment How to access health informa tion online Indication:Low Back Pain Start:17-Feb-2015 Instruction Type:Patient Education How to access health informa tion online - Detail Indication:Low Back Pain Start:17-Feb-2015 Instruction Type:Patient Education Patient Instructions Indication:Low Back Pain Start:17-Feb-2015 Instruction Type:Provider Instructions for Treatment Patient Instructions Indication:Encounter for Medicare annual wellness exam Start:27-Aug-2014 Instruction Type:Provider Instructions for Treatment How to access health informa tion online Indication:Encounter for Medicare annual wellness exam Start:27-Aug-2014 Instruction Type:Patient Education How to access health informa tion online - Detail Indication:Encounter for Medicare annual wellness exam Start:27-Aug-2014 Instruction Type:Patient Education Patient Instructions Indication:Headache Start:23-Apr-2014 Instruction Type:Provider Instructions for Treatment Patient Instructions Indication:Osteopenia Start:02-Aug-2013 Instruction Type:Provider Instructions for Treatment Patient Instructions Indication:Ultrasound scan abnormal Start:22-Mar-2013 Instruction Type:Provider Instructions for Treatment Patient Instructions Indication:Abdominal pain, acute, generalized Start:13-Feb-2013 Instruction Type:Provider Instructions for Treatment Patient Instructions Indication:Encounter for Medicare annual wellness exam Start:20-Aug-2012 Instruction Type:Provider Instructions for Treatment Patient Instructions Indication:Elevated blood-pressure reading without diagnosis of hypertension Start:11-Jul-2012 Instruction Type:Provider Instructions for Treatment Patient Instructions Indication:Osteopenia Start:11-Apr-2012 Instruction Type:Provider Instructions for Treatment [facility] Work Phone: Instructions* Name Dates Details Patient Instructions Indication:BMI 22.0-22.9, adult Start:12-Sep-2022 Instruction Type:Provider Instructions for Treatment How to Access Health Informa tion Online using Patient Portal and 3rd [employer] Apps Indication:BMI 22.0-22.9, adult Start:12-Sep-2022 Instruction Type:Patient Education Patient Instructions Indication:Elevated hemoglobin A1c Start:03-Jun-2022 Instruction Type:Provider Instructions for Treatment How to Access Health Informa tion Online using Patient Portal and 3rd [employer] Apps Indication:Elevated hemoglobin A1c Start:03-Jun-2022 Instruction Type:Patient Education Patient Instructions Indication:[facility] Start:11-Jan-2022 Instruction Type:Provider Instructions for Treatment How to Access Health Informa tion Online using Patient Portal and [employer]rd [employer] Apps Indication:[facility] Start:11-Jan-2022 Instruction Type:Patient Education Patient Instructions Indication:BMI 22.0-22.9, adult Start:10-Sep-2021 Instruction Type:Provider Instructions for Treatment How to Access Health Informa tion Online using Patient Portal and 3rd [employer] Apps Indication:BMI 22.0-22.9, adult Start:10-Sep-2021 Instruction Type:Patient Education Patient Instructions Indication:Elevated hemoglobin A1c Start:26-May-2021 Instruction Type:Provider Instructions for Treatment How to Access Health Informa tion Online using Patient Portal and 3rd [employer] Apps Indication:Elevated hemoglobin A1c Start:26-May-2021 Instruction Type:Patient Education Patient Instructions Indication:[facility] Start:15-Jan-2021 Instruction Type:Provider Instructions for Treatment How to Access Health Informa tion Online using Patient Portal and [employer]rd [employer] Apps Indication:[facility] Start:15-Jan-2021 Instruction Type:Patient Education Patient Instructions Indication:Anemia Start:02-Nov-2020 Instruction Type:Provider Instructions for Treatment How to Access Health Informa tion Online using Patient Portal and 3rd [employer] Apps Indication:Anemia Start:02-Nov-2020 Instruction Type:Patient Education Patient Instructions Indication:Nonsmoker Start:28-Jul-2020 Instruction Type:Provider Instructions for Treatment How to Access Health Informa tion Online using Patient Portal and [employer]rd [employer] Apps Indication:Nonsmoker Start:28-Jul-2020 Instruction Type:Patient Education Patient Instructions Indication:Elevated hemoglobin A1c Start:29-Apr-2020 Instruction Type:Provider Instructions for Treatment How to Access Health Informa tion Online using Patient Portal and [employer]rd [employer] Apps Indication:Elevated hemoglobin A1c Start:29-Apr-2020 Instruction Type:Patient Education Patient Instructions Indication:Abdominal pain Start:01-Apr-2020 Instruction Type:Provider Instructions for Treatment Patient Instructions Indication:Diarrhea Start:27-Mar-2020 Instruction Type:Provider Instructions for Treatment Patient Instructions Indication:Diarrhea Start:26-Mar-2020 Instruction Type:Provider Instructions for Treatment Patient Instructions Indication:Nonsmoker Start:23-Mar-2020 Instruction Type:Provider Instructions for Treatment How to Access Health Informa tion Online using Patient Portal and [employer]rd [employer] Apps Indication:Nonsmoker Start:23-Mar-2020 Instruction Type:Patient Education Patient Instructions Indication:Abdominal pain Start:09-Mar-2020 Instruction Type:Provider Instructions for Treatment How to Access Health Informa tion Online using Patient Portal and [employer]rd [employer] Apps Indication:Abdominal pain Start:09-Mar-2020 Instruction Type:Patient Education How to access health informa tion online Indication:Nonsmoker Start:14-Jan-2020 Instruction Type:Patient Education How to access health informa tion online - Detail Indication:Nonsmoker Start:14-Jan-2020 Instruction Type:Patient Education Patient Instructions Indication:Nonsmoker Start:14-Jan-2020 Instruction Type:Provider Instructions for Treatment How to access health informa tion online Indication:Lymphocytosis Start:18-Sep-2019 Instruction Type:Patient Education How to access health informa tion online - Detail Indication:Lymphocytosis Start:18-Sep-2019 Instruction Type:Patient Education Patient Instructions Indication:Lymphocytosis Start:18-Sep-2019 Instruction Type:Provider Instructions for Treatment Patient Instructions Indication:Elevated hemoglobin A1c Start:18-Jun-2019 Instruction Type:Provider Instructions for Treatment How to access health informa tion online Indication:Abnormal lung function test Start:19-Mar-2019 Instruction Type:Patient Education How to access health informa tion online - Detail Indication:Abnormal lung function test Start:19-Mar-2019 Instruction Type:Patient Education Patient Instructions Indication:Abnormal lung function test Start:19-Mar-2019 Instruction Type:Provider Instructions for Treatment How to access health informa tion online Indication:[facility] Start:30-Jan-2019 Instruction Type:Patient Education How to access health informa tion online - Detail Indication:[facility] Start:30-Jan-2019 Instruction Type:Patient Education Patient Instructions Indication:[facility] Start:30-Jan-2019 Instruction Type:Provider Instructions for Treatment How to access health informa tion online Indication:Elevated hemoglobin A1c Start:29-Oct-2018 Instruction Type:Patient Education How to access health informa tion online - Detail Indication:Elevated hemoglobin A1c Start:29-Oct-2018 Instruction Type:Patient Education Patient Instructions Indication:Elevated hemoglobin A1c Start:29-Oct-2018 Instruction Type:Provider Instructions for Treatment How to access health informa tion online Indication:Syncope Start:20-Jul-2018 Instruction Type:Patient Education How to access health informa tion online - Detail Indication:Syncope Start:20-Jul-2018 Instruction Type:Patient Education Patient Instructions Indication:Syncope Start:20-Jul-2018 Instruction Type:Provider Instructions for Treatment How to access health informa tion online Indication:Syncope Start:09-Jul-2018 Instruction Type:Patient Education How to access health informa tion online - Detail Indication:Syncope Start:09-Jul-2018 Instruction Type:Patient Education Patient Instructions Indication:Syncope Start:09-Jul-2018 Instruction Type:Provider Instructions for Treatment How to access health informa tion online Indication:Syncope Start:29-Jun-2018 Instruction Type:Patient Education How to access health informa tion online - Detail Indication:Syncope Start:29-Jun-2018 Instruction Type:Patient Education Patient Instructions Indication:Syncope Start:29-Jun-2018 Instruction Type:Provider Instructions for Treatment How to access health informa tion online Indication:Lymphocytosis Start:01-Jun-2018 Instruction Type:Patient Education How to access health informa tion online - Detail Indication:Lymphocytosis Start:01-Jun-2018 Instruction Type:Patient Education Patient Instructions Indication:Lymphocytosis Start:01-Jun-2018 Instruction Type:Provider Instructions for Treatment How to access health informa tion online Indication:Family history of malignant neoplasm of gastrointestinal tract (Renamed from Family history of cancer of digestive system) Start:31-Jan-2018 Instruction Type:Patient Education How to access health informa tion online - Detail Indication:Family history of malignant neoplasm of gastrointestinal tract (Renamed from Family history of cancer of digestive system) Start:31-Jan-2018 Instruction Type:Patient Education Patient Instructions Indication:Family history of malignant neoplasm of gastrointestinal tract (Renamed from Family history of cancer of digestive system) Start:31-Jan-2018 Instruction Type:Provider Instructions for Treatment How to access health informa tion online Indication:BMI 21.0-21.9, adult Start:27-Sep-2017 Instruction Type:Patient Education How to access health informa tion online - Detail Indication:BMI 21.0-21.9, adult Start:27-Sep-2017 Instruction Type:Patient Education Patient Instructions Indication:BMI 21.0-21.9, adult Start:27-Sep-2017 Instruction Type:Provider Instructions for Treatment How to access health informa tion online Indication:BMI 22.0-22.9, adult Start:26-May-2017 Instruction Type:Patient Education How to access health informa tion online - Detail Indication:BMI 22.0-22.9, adult Start:26-May-2017 Instruction Type:Patient Education Patient Instructions Indication:BMI 22.0-22.9, adult Start:26-May-2017 Instruction Type:Provider Instructions for Treatment How to access health informa tion online Indication:Current nonsmoker (Renamed from Current non-smoker) Start:18-Jan-2017 Instruction Type:Patient Education How to access health informa tion online - Detail Indication:Current nonsmoker (Renamed from Current non-smoker) Start:18-Jan-2017 Instruction Type:Patient Education Patient Instructions Indication:Current nonsmoker (Renamed from Current non-smoker) Start:18-Jan-2017 Instruction Type:Provider Instructions for Treatment How to access health informa tion online Indication:[facility] Start:14-Sep-2016 Instruction Type:Patient Education How to access health informa tion online - Detail Indication:[facility] Start:14-Sep-2016 Instruction Type:Patient Education Patient Instructions Indication:[facility] Start:14-Sep-2016 Instruction Type:Provider Instructions for Treatment How to access health informa tion online Indication:Osteoporosis Start:15-Apr-2016 Instruction Type:Patient Education How to access health informa tion online - Detail Indication:Osteoporosis Start:15-Apr-2016 Instruction Type:Patient Education Patient Instructions Indication:Osteoporosis Start:15-Apr-2016 Instruction Type:Provider Instructions for Treatment How to access health informa tion online Indication:[facility] Start:11-Sep-2015 Instruction Type:Patient Education How to access health informa tion online - Detail Indication:[facility] Start:11-Sep-2015 Instruction Type:Patient Education Patient Instructions Indication:[facility] Start:11-Sep-2015 Instruction Type:Provider Instructions for Treatment How to access health informa tion online Indication:Low Back Pain Start:17-Feb-2015 Instruction Type:Patient Education How to access health informa tion online - Detail Indication:Low Back Pain Start:17-Feb-2015 Instruction Type:Patient Education Patient Instructions Indication:Low Back Pain Start:17-Feb-2015 Instruction Type:Provider Instructions for Treatment Patient Instructions Indication:Encounter for Medicare annual wellness exam Start:27-Aug-2014 Instruction Type:Provider Instructions for Treatment How to access health informa tion online Indication:Encounter for Medicare annual wellness exam Start:27-Aug-2014 Instruction Type:Patient Education How to access health informa tion online - Detail Indication:Encounter for Medicare annual wellness exam Start:27-Aug-2014 Instruction Type:Patient Education Patient Instructions Indication:Headache Start:23-Apr-2014 Instruction Type:Provider Instructions for Treatment Patient Instructions Indication:Osteopenia Start:02-Aug-2013 Instruction Type:Provider Instructions for Treatment Patient Instructions Indication:Ultrasound scan abnormal Start:22-Mar-2013 Instruction Type:Provider Instructions for Treatment Patient Instructions Indication:Abdominal pain, acute, generalized Start:13-Feb-2013 Instruction Type:Provider Instructions for Treatment Patient Instructions Indication:Encounter for Medicare annual wellness exam Start:20-Aug-2012 Instruction Type:Provider Instructions for Treatment Patient Instructions Indication:Elevated blood-pressure reading without diagnosis of hypertension Start:11-Jul-2012 Instruction Type:Provider Instructions for Treatment Patient Instructions Indication:Osteopenia Start:11-Apr-2012 Instruction Type:Provider Instructions for Treatment [facility] Work Phone: reason for referral (narrative)No reason for referral information available[facility] Work [facility]: Family History No Family History Records FoundUnknown Family Member Name Dates Details Brother 1 Comments:In good health Status:Active Brother 2 Comments:hyperlidemia/copd Status:Active Father Comments:Colon CA- age 58 de ceased diagnosed 57 Status:Active Mother Comments:Colon CA, Breast CA , HTN- 75- colon diagnosed age 74 Status:Active Son 1 Comments:ETOH, depression Status:Active Unknown Family Member Name Dates Details Brother 1 Comments:In good health Status:Active Brother 2 Comments:hyperlidemia/copd Status:Active Father Comments:Colon CA- age 58 de ceased diagnosed 57 Status:Active Mother Comments:Colon CA, Breast CA , HTN- 75- colon diagnosed age 74 Status:Active Son 1 Comments:ETOH, depression Status:Active Unknown Family Member Name Dates Details Brother 1 Comments:In good health Status:Active Brother 2 Comments:hyperlidemia/copd Status:Active Father Comments:Colon CA- age 58 de ceased diagnosed 57 Status:Active Mother Comments:Colon CA, Breast CA , HTN- 75- colon diagnosed age 74 Status:Active Son 1 Comments:ETOH, depression Status:Active Unknown Family Member Name Dates Details Brother 1 Comments:In good health Status:Active Brother 2 Comments:hyperlidemia/copd Status:Active Father Comments:Colon CA- age 58 de ceased diagnosed 57 Status:Active Mother Comments:Colon CA, Breast CA , HTN- 75- colon diagnosed age 74 Status:Active Son 1 Comments:ETOH, depression Status:Active Unknown Family Member Name Dates Details Brother 1 Comments:In good health Status:Active Brother 2 Comments:hyperlidemia/copd Status:Active Father Comments:Colon CA- age 58 de ceased diagnosed 57 Status:Active Mother Comments:Colon CA, Breast CA , HTN- 75- colon diagnosed age 74 Status:Active Son 1 Comments:ETOH, depression Status:Active Unknown Family Member Name Dates Details Brother 1 Comments:In good health Status:Active Brother 2 Comments:hyperlidemia/copd Status:Active Father Comments:Colon CA- age 58 de ceased diagnosed 57 Status:Active Mother Comments:Colon CA, Breast CA , HTN- 75- colon diagnosed age 74 Status:Active Son 1 Comments:ETOH, depression Status:Active Unknown Family Member Name Dates Details Brother 1 Comments:In good health Status:Active Brother 2 Comments:hyperlidemia/copd Status:Active Father Comments:Colon CA- age 58 de ceased diagnosed 57 Status:Active Mother Comments:Colon CA, Breast CA , HTN- 75- colon diagnosed age 74 Status:Active Son 1 Comments:ETOH, depression Status:Active Unknown Family Member Name Dates Details Brother 1 Comments:In good health Status:Active Brother 2 Comments:hyperlidemia/copd Status:Active Father Comments:Colon CA- age 58 de ceased diagnosed 57 Status:Active Mother Comments:Colon CA, Breast CA , HTN- 75- colon diagnosed age 74 Status:Active Son 1 Comments:ETOH, depression Status:Active Unknown Family Member Name Dates Details Brother 1 Comments:In good health Status:Active Brother 2 Comments:hyperlidemia/copd Status:Active Father Comments:Colon CA- age 58 de ceased diagnosed 57 Status:Active Mother Comments:Colon CA, Breast CA , HTN- 75- colon diagnosed age 74 Status:Active Son 1 Comments:ETOH, depression Status:Active Unknown Family Member Name Dates Details Brother 1 Comments:In good health Status:Active Brother 2 Comments:hyperlidemia/copd Status:Active Father Comments:Colon CA- age 58 de ceased diagnosed 57 Status:Active Mother Comments:Colon CA, Breast CA , HTN- 75- colon diagnosed age 74 Status:Active Son 1 Comments:ETOH, depression Status:Active Unknown Family Member Name Dates Details Brother 1 Comments:In good health Status:Active Brother 2 Comments:hyperlidemia/copd Status:Active Father Comments:Colon CA- age 58 de ceased diagnosed 57 Status:Active Mother Comments:Colon CA, Breast CA , HTN- 75- colon diagnosed age 74 Status:Active Son 1 Comments:ETOH, depression Status:Active Unknown Family Member Name Dates Details Brother 1 Comments:In good health Status:Active Brother 2 Comments:hyperlidemia/copd Status:Active Father Comments:Colon CA- age 58 de ceased diagnosed 57 Status:Active Mother Comments:Colon CA, Breast CA , HTN- 75- colon diagnosed age 74 Status:Active Son 1 Comments:ETOH, depression Status:Active Unknown Family Member Name Dates Details Brother 1 Comments:In good health Status:Active Brother 2 Comments:hyperlidemia/copd Status:Active Father Comments:Colon CA- age 58 de ceased diagnosed 57 Status:Active Mother Comments:Colon CA, Breast CA , HTN- 75- colon diagnosed age 74 Status:Active Son 1 Comments:ETOH, depression Status:Active Unknown Family Member Name Dates Details Brother 1 Comments:In good health Status:Active Brother 2 Comments:hyperlidemia/copd Status:Active Father Comments:Colon CA- age 58 de ceased diagnosed 57 Status:Active Mother Comments:Colon CA, Breast CA , HTN- 75- colon diagnosed age 74 Status:Active Son 1 Comments:ETOH, depression Status:Active Unknown Family Member Name Dates Details Brother 1 Comments:In good health Status:Active Brother 2 Comments:hyperlidemia/copd Status:Active Father Comments:Colon CA- age 58 de ceased diagnosed 57 Status:Active Mother Comments:Colon CA, Breast CA , HTN- 75- colon diagnosed age 74 Status:Active Son 1 Comments:ETOH, depression Status:Active Unknown Family Member Name Dates Details Brother 1 Comments:In good health Status:Active Brother 2 Comments:hyperlidemia/copd Status:Active Father Comments:Colon CA- age 58 de ceased diagnosed 57 Status:Active Mother Comments:Colon CA, Breast CA , HTN- 75- colon diagnosed age 74 Status:Active Son 1 Comments:ETOH, depression Status:Active Unknown Family Member Name Dates Details Brother 1 Comments:In good health Status:Active Brother 2 Comments:hyperlidemia/copd Status:Active Father Comments:Colon CA- age 58 de ceased diagnosed 57 Status:Active Mother Comments:Colon CA, Breast CA , HTN- 75- colon diagnosed age 74 Status:Active Son 1 Comments:ETOH, depression Status:Active Unknown Family Member Name Dates Details Brother 1 Comments:In good health Status:Active Brother 2 Comments:hyperlidemia/copd Status:Active Father Comments:Colon CA- age 58 de ceased diagnosed 57 Status:Active Mother Comments:Colon CA, Breast CA , HTN- 75- colon diagnosed age 74 Status:Active Son 1 Comments:ETOH, depression Status:Active Unknown Family Member Name Dates Details Brother 1 Comments:In good health Status:Active Brother 2 Comments:hyperlidemia/copd Status:Active Father Comments:Colon CA- age 58 de ceased diagnosed 57 Status:Active Mother Comments:Colon CA, Breast CA , HTN- 75- colon diagnosed age 74 Status:Active Son 1 Comments:ETOH, depression Status:Active Unknown Family Member Name Dates Details Brother 1 Comments:In good health Status:Active Brother 2 Comments:hyperlidemia/copd Status:Active Father Comments:Colon CA- age 58 de ceased diagnosed 57 Status:Active Mother Comments:Colon CA, Breast CA , HTN- 75- colon diagnosed age 74 Status:Active Son 1 Comments:ETOH, depression Status:Active Unknown Family Member Name Dates Details Brother 1 Comments:In good health Status:Active Brother 2 Comments:hyperlidemia/copd Status:Active Father Comments:Colon CA- age 58 de ceased diagnosed 57 Status:Active Mother Comments:Colon CA, Breast CA , HTN- 75- colon diagnosed age 74 Status:Active Son 1 Comments:ETOH, depression Status:Active Unknown Family Member Name Dates Details Brother 1 Comments:In good health Status:Active Brother 2 Comments:hyperlidemia/copd Status:Active Father Comments:Colon CA- age 58 de ceased diagnosed 57 Status:Active Mother Comments:Colon CA, Breast CA , HTN- 75- colon diagnosed age 74 Status:Active Son 1 Comments:ETOH, depression Status:Active Unknown Family Member Name Dates Details Brother 1 Comments:In good health Status:Active Brother 2 Comments:hyperlidemia/copd Status:Active Father Comments:Colon CA- age 58 de ceased diagnosed 57 Status:Active Mother Comments:Colon CA, Breast CA , HTN- 75- colon diagnosed age 74 Status:Active Son 1 Comments:ETOH, depression Status:Active Unknown Family Member Name Dates Details Brother 1 Comments:In good health Status:Active Brother 2 Comments:hyperlidemia/copd Status:Active Father Comments:Colon CA- age 58 de ceased diagnosed 57 Status:Active Mother Comments:Colon CA, Breast CA , HTN- 75- colon diagnosed age 74 Status:Active Son 1 Comments:ETOH, depression Status:Active Unknown Family Member Name Dates Details Brother 1 Comments:In good health Status:Active Brother 2 Comments:hyperlidemia/copd Status:Active Father Comments:Colon CA- age 58 de ceased diagnosed 57 Status:Active Mother Comments:Colon CA, Breast CA , HTN- 75- colon diagnosed age 74 Status:Active Son 1 Comments:ETOH, depression Status:Active Unknown Family Member Name Dates Details Brother 1 Comments:In good health Status:Active Brother 2 Comments:hyperlidemia/copd Status:Active Father Comments:Colon CA- age 58 de ceased diagnosed 57 Status:Active Mother Comments:Colon CA, Breast CA , HTN- 75- colon diagnosed age 74 Status:Active Son 1 Comments:ETOH, depression Status:Active Unknown Family Member Name Dates Details Brother 1 Comments:In good health Status:Active Brother 2 Comments:hyperlidemia/copd Status:Active Father Comments:Colon CA- age 58 de ceased diagnosed 57 Status:Active Mother Comments:Colon CA, Breast CA , HTN- 75- colon diagnosed age 74 Status:Active Son 1 Comments:ETOH, depression Status:Active Relationship Condition Age at Onset Recorded Date/T ani mother Malignant neoplasm of colon Unknown Malignant neoplasm of breast Unknown Hypertension Unknown father Malignant neoplasm of colon Unknown Unknown Family Member Name Dates Details Brother 1 Comments:In good health Status:Active Brother 2 Comments:hyperlidemia/copd Status:Active Father Comments:Colon CA- age 58 de ceased diagnosed 57 Status:Active Mother Comments:Colon CA, Breast CA , HTN- 75- colon diagnosed age 74 Status:Active Son 1 Comments:ETOH, depression Status:Active Unknown Family Member Name Dates Details Brother 1 Comments:In good health Status:Active Brother 2 Comments:hyperlidemia/copd Status:Active Father Comments:Colon CA- age 58 de ceased diagnosed 57 Status:Active Mother Comments:Colon CA, Breast CA , HTN- 75- colon diagnosed age 74 Status:Active Son 1 Comments:ETOH, depression Status:Active Unknown Family Member Name Dates Details Brother 1 Comments:In good health Status:Active Brother 2 Comments:hyperlidemia/copd Status:Active Father Comments:Colon CA- age 58 de ceased diagnosed 57 Status:Active Mother Comments:Colon CA, Breast CA , HTN- 75- colon diagnosed age 74 Status:Active Son 1 Comments:ETOH, depression Status:Active Unknown Family Member Name Dates Details Brother 1 Comments:In good health Status:Active Brother 2 Comments:hyperlidemia/copd Status:Active Father Comments:Colon CA- age 58 de ceased diagnosed 57 Status:Active Mother Comments:Colon CA, Breast CA , HTN- 75- colon diagnosed age 74 Status:Active Son 1 Comments:ETOH, depression Status:Active Unknown Family Member Name Dates Details Brother 1 Comments:In good health Status:Active Brother 2 Comments:hyperlidemia/copd Status:Active Father Comments:Colon CA- age 58 de ceased diagnosed 57 Status:Active Mother Comments:Colon CA, Breast CA , HTN- 75- colon diagnosed age 74 Status:Active Son 1 Comments:ETOH, depression Status:Active Unknown Family Member Name Dates Details Brother 1 Comments:chf Status:Active Brother 2 Comments:hyperlidemia/copd Status:Active Father Comments:Colon CA- age 58 de ceased diagnosed 57 Status:Active Mother Comments:Colon CA, Breast CA , HTN- 75- colon diagnosed age 74 Status:Active Son 1 Comments:ETOH, depression Status:Active Unknown Family Member Name Dates Details Brother 1 Comments:chf Status:Active Brother 2 Comments:hyperlidemia/copd Status:Active Father Comments:Colon CA- age 58 de ceased diagnosed 57 Status:Active Mother Comments:Colon CA, Breast CA , HTN- 75- colon diagnosed age 74 Status:Active Son 1 Comments:ETOH, depression Status:Active Unknown Family Member Name Dates Details Brother 1 Comments:chf Status:Active Brother 2 Comments:hyperlidemia/copd Status:Active Father Comments:Colon CA- age 58 de ceased diagnosed 57 Status:Active Mother Comments:Colon CA, Breast CA , HTN- 75- colon diagnosed age 74 Status:Active Son 1 Comments:ETOH, depression Status:Active Unknown Family Member Name Dates Details Brother 1 Comments:chf Status:Active Brother 2 Comments:hyperlidemia/copd Status:Active Father Comments:Colon CA- age 58 de ceased diagnosed 57 Status:Active Mother Comments:Colon CA, Breast CA , HTN- 75- colon diagnosed age 74 Status:Active Son 1 Comments:ETOH, depression Status:Active Unknown Family Member Name Dates Details Brother 1 Comments:chf Status:Active Brother 2 Comments:hyperlidemia/copd Status:Active Father Comments:Colon CA- age 58 de ceased diagnosed 57 Status:Active Mother Comments:Colon CA, Breast CA , HTN- 75- colon diagnosed age 74 Status:Active Son 1 Comments:ETOH, depression Status:Active Unknown Family Member Name Dates Details Brother 1 Comments:chf Status:Active Brother 2 Comments:hyperlidemia/copd Status:Active Father Comments:Colon CA- age 58 de ceased diagnosed 57 Status:Active Mother Comments:Colon CA, Breast CA , HTN- 75- colon diagnosed age 74 Status:Active Son 1 Comments:ETOH, depression Status:Active Unknown Family Member Name Dates Details Brother 1 Comments:chf Status:Active Brother 2 Comments:hyperlidemia/copd Status:Active Father Comments:Colon CA- age 58 de ceased diagnosed 57 Status:Active Mother Comments:Colon CA, Breast CA , HTN- 75- colon diagnosed age 74 Status:Active Son 1 Comments:ETOH, depression Status:Active Unknown Family Member Name Dates Details Brother 1 Comments:chf Status:Active Brother 2 Comments:hyperlidemia/copd Status:Active Father Comments:Colon CA- age 58 de ceased diagnosed 57 Status:Active Mother Comments:Colon CA, Breast CA , HTN- 75- colon diagnosed age 74 Status:Active Son 1 Comments:ETOH, depression Status:Active Unknown Family Member Name Dates Details Brother 1 Comments:chf Status:Active Brother 2 Comments:hyperlidemia/copd Status:Active Father Comments:Colon CA- age 58 de ceased diagnosed 57 Status:Active Mother Comments:Colon CA, Breast CA , HTN- 75- colon diagnosed age 74 Status:Active Son 1 Comments:ETOH, depression Status:Active Unknown Family Member Name Dates Details Brother 1 Comments:chf Status:Active Brother 2 Comments:hyperlidemia/copd Status:Active Father Comments:Colon CA- age 58 de ceased diagnosed 57 Status:Active Mother Comments:Colon CA, Breast CA , HTN- 75- colon diagnosed age 74 Status:Active Son 1 Comments:ETOH, depression Status:Active Unknown Family Member Name Dates Details Brother 1 Comments:chf Status:Active Brother 2 Comments:hyperlidemia/copd Status:Active Father Comments:Colon CA- age 58 de ceased diagnosed 57 Status:Active Mother Comments:Colon CA, Breast CA , HTN- 75- colon diagnosed age 74 Status:Active Son 1 Comments:ETOH, depression Status:Active Unknown Family Member Name Dates Details Brother 1 Comments:chf Status:Active Brother 2 Comments:hyperlidemia/copd Status:Active Father Comments:Colon CA- age 58 de ceased diagnosed 57 Status:Active Mother Comments:Colon CA, Breast CA , HTN- 75- colon diagnosed age 74 Status:Active Son 1 Comments:ETOH, depression Status:Active Unknown Family Member Name Dates Details Brother 1 Comments:chf Status:Active Brother 2 Comments:hyperlidemia/copd Status:Active Father Comments:Colon CA- age 58 de ceased diagnosed 57 Status:Active Mother Comments:Colon CA, Breast CA , HTN- 75- colon diagnosed age 74 Status:Active Son 1 Comments:ETOH, depression Status:Active Unknown Family Member Name Dates Details Brother 1 Comments:chf Status:Active Brother 2 Comments:hyperlidemia/copd Status:Active Father Comments:Colon CA- age 58 de ceased diagnosed 57 Status:Active Mother Comments:Colon CA, Breast CA , HTN- 75- colon diagnosed age 74 Status:Active Son 1 Comments:ETOH, depression Status:Active Unknown Family Member Name Dates Details Brother 1 Comments:chf Status:Active Brother 2 Comments:hyperlidemia/copd Status:Active Father Comments:Colon CA- age 58 de ceased diagnosed 57 Status:Active Mother Comments:Colon CA, Breast CA , HTN- 75- colon diagnosed age 74 Status:Active Son 1 Comments:ETOH, depression Status:Active Instructions Name Dates Details BMI 21.0-21.9, adult : How t o access health information online Indication:BMI 21.0-21.9, adult BMI 21.0-21.9, adult : How t o access health information online - Detail Indication:BMI 21.0-21.9, adult BMI 21.0-21.9, adult : Patie nt Instructions Indication:BMI 21.0-21.9, adult BMI 22.0-22.9, adult : How t o access health information online Indication:BMI 22.0-22.9, adult BMI 22.0-22.9, adult : How t o access health information online - Detail Indication:BMI 22.0-22.9, adult BMI 22.0-22.9, adult : Patie nt Instructions Indication:BMI 22.0-22.9, adult Current nonsmoker (Renamed f rom Current non-smoker) : How to access health information online Indication:Current nonsmoker (Renamed from Current non-smoker) Current nonsmoker (Renamed f rom Current non-smoker) : How to access health information online - Detail Indication:Current nonsmoker (Renamed from Current non-smoker) Current nonsmoker (Renamed f rom Current non-smoker) : Patient Instructions Indication:Current nonsmoker (Renamed from Current non-smoker) [facility] : How to access health information online Indication:[facility] : How to access health information online - Detail Indication:[facility] : Patien t Instructions Indication:[facility] Osteoporosis : How to access health information online Indication:Osteoporosis Osteoporosis : How to access health information online - Detail Indication:Osteoporosis Osteoporosis : Patient Instr uctions Indication:Osteoporosis Low Back Pain : How to acces s health information online Indication:Low Back Pain Low Back Pain : How to acces s health information online - Detail Indication:Low Back Pain Low Back Pain : Patient Inst ructions Indication:Low Back Pain [facility] Patient Instructions Indication:Encounter for Medicare annual wellness exam Encounter for Medicare annua l wellness exam : How to access health information online Indication:Encounter for Medicare annual wellness exam [facility] : How to access health information online - Detail Indication:Encounter for Medicare annual wellness exam Headache : Patient Instructi ons Indication:Headache Osteopenia : Patient Instruc tions Indication:Osteopenia Ultrasound scan abnormal : P atient Instructions Indication:Ultrasound scan abnormal Abdominal pain, acute, gener alized : Patient Instructions Indication:Abdominal pain, acute, generalized Elevated blood-pressure read ing without diagnosis of hypertension : Patient Instructions Indication:Elevated blood-pressure reading without diagnosis of hypertension Name Dates Details Family history of malignant neoplasm of gastrointestinal tract (Renamed from Family history of cancer of digestive system) : How to access health information online Indication:Family history of malignant neoplasm of gastrointestinal tract (Renamed from Family history of cancer of digestive system) Family history of malignant neoplasm of gastrointestinal tract (Renamed from Family history of cancer of digestive system) : How to access health information online - Detail Indication:Family history of malignant neoplasm of gastrointestinal tract (Renamed from Family history of cancer of digestive system) Family history of malignant neoplasm of gastrointestinal tract (Renamed from Family history of cancer of digestive system) : Patient Instructions Indication:Family history of malignant neoplasm of gastrointestinal tract (Renamed from Family history of cancer of digestive system) BMI 21.0-21.9, adult : How t o access health information online Indication:BMI 21.0-21.9, adult BMI 21.0-21.9, adult : How t o access health information online - Detail Indication:BMI 21.0-21.9, adult BMI 21.0-21.9, adult : Patie nt Instructions Indication:BMI 21.0-21.9, adult BMI 22.0-22.9, adult : How t o access health information online Indication:BMI 22.0-22.9, adult BMI 22.0-22.9, adult : How t o access health information online - Detail Indication:BMI 22.0-22.9, adult BMI 22.0-22.9, adult : Patie nt Instructions Indication:BMI 22.0-22.9, adult Current nonsmoker (Renamed f rom Current non-smoker) : How to access health information online Indication:Current nonsmoker (Renamed from Current non-smoker) Current nonsmoker (Renamed f rom Current non-smoker) : How to access health information online - Detail Indication:Current nonsmoker (Renamed from Current non-smoker) Current nonsmoker (Renamed f rom Current non-smoker) : Patient Instructions Indication:Current nonsmoker (Renamed from Current non-smoker) [facility] : How to access health information online Indication:[facility] : How to access health information online - Detail Indication:[facility] : Patien t Instructions Indication:[facility] Osteoporosis : How to access health information online Indication:Osteoporosis Osteoporosis : How to access health information online - Detail Indication:Osteoporosis Osteoporosis : Patient Instr uctions Indication:Osteoporosis Low Back Pain : How to acces s health information online Indication:Low Back Pain Low Back Pain : How to acces s health information online - Detail Indication:Low Back Pain Low Back Pain : Patient Inst ructions Indication:Low Back Pain Encounter for Medicare annua l wellness exam : Patient Instructions Indication:Encounter for Medicare annual wellness exam Encounter for Medicare ann[facility] wellness exam : How to access health information online Indication:Encounter for Medicare annual wellness exam Encounter for Medicare [facility] wellness exam : How to access health information online - Detail Indication:Encounter for Medicare annual wellness exam Headache : Patient Instructi ons Indication:Headache Osteopenia : Patient Instruc tions Indication:Osteopenia Ultrasound scan abnormal : P atient Instructions Indication:Ultrasound scan abnormal Abdominal pain, acute, gener alized : Patient Instructions Indication:Abdominal pain, acute, generalized Elevated blood-pressure read ing without diagnosis of hypertension : Patient Instructions Indication:Elevated blood-pressure reading without diagnosis of hypertension Name Dates Details Lymphocytosis : How to acces s health information online Indication:Lymphocytosis Lymphocytosis : How to acces s health information online - Detail Indication:Lymphocytosis Lymphocytosis : Patient Inst ructions Indication:Lymphocytosis Family history of malignant neoplasm of gastrointestinal tract (Renamed from Family history of cancer of digestive system) : How to access health information online Indication:Family history of malignant neoplasm of gastrointestinal tract (Renamed from Family history of cancer of digestive system) Family history of malignant neoplasm of gastrointestinal tract (Renamed from Family history of cancer of digestive system) : How to access health information online - Detail Indication:Family history of malignant neoplasm of gastrointestinal tract (Renamed from Family history of cancer of digestive system) Family history of malignant neoplasm of gastrointestinal tract (Renamed from Family history of cancer of digestive system) : Patient Instructions Indication:Family history of malignant neoplasm of gastrointestinal tract (Renamed from Family history of cancer of digestive system) BMI 21.0-21.9, adult : How t o access health information online Indication:BMI 21.0-21.9, adult BMI 21.0-21.9, adult : How t o access health information online - Detail Indication:BMI 21.0-21.9, adult BMI 21.0-21.9, adult : Patie nt Instructions Indication:BMI 21.0-21.9, adult BMI 22.0-22.9, adult : How t o access health information online Indication:BMI 22.0-22.9, adult BMI 22.0-22.9, adult : How t o access health information online - Detail Indication:BMI 22.0-22.9, adult BMI 22.0-22.9, adult : Patie nt Instructions Indication:BMI 22.0-22.9, adult Current nonsmoker (Renamed f rom Current non-smoker) : How to access health information online Indication:Current nonsmoker (Renamed from Current non-smoker) Current nonsmoker (Renamed f rom Current non-smoker) : How to access health information online - Detail Indication:Current nonsmoker (Renamed from Current non-smoker) Current nonsmoker (Renamed f rom Current non-smoker) : Patient Instructions Indication:Current nonsmoker (Renamed from Current non-smoker) [facility] : How to access health information online Indication:[facility] : How to access health information online - Detail Indication:[facility] : Patien t Instructions Indication:[facility] Osteoporosis : How to access health information online Indication:Osteoporosis Osteoporosis : How to access health information online - Detail Indication:Osteoporosis Osteoporosis : Patient Instr uctions Indication:Osteoporosis Low Back Pain : How to acces s health information online Indication:Low Back Pain Low Back Pain : How to acces s health information online - Detail Indication:Low Back Pain Low Back Pain : Patient Inst ructions Indication:Low Back Pain Encounter for Medicare [facility] wellness exam : Patient Instructions Indication:Encounter for Medicare annual wellness exam Encounter for Medicare annua l wellness exam : How to access health information online Indication:Encounter for Medicare annual wellness exam Encounter for Medicare annua l wellness exam : How to access health information online - Detail Indication:Encounter for Medicare annual wellness exam Headache : Patient Instructi ons Indication:Headache Osteopenia : Patient Instruc tions Indication:Osteopenia Ultrasound scan abnormal : P atient Instructions Indication:Ultrasound scan abnormal Abdominal pain, acute, gener alized : Patient Instructions Indication:Abdominal pain, acute, generalized Elevated blood-pressure read ing without diagnosis of hypertension : Patient Instructions Indication:Elevated blood-pressure reading without diagnosis of hypertension Name Dates Details How to access health informa tion online Indication:Syncope Start:20-Jul-2018 Instruction Type:Patient Education How to access health informa tion online - Detail Indication:Syncope Start:20-Jul-2018 Instruction Type:Patient Education Patient Instructions Indication:Syncope Start:20-Jul-2018 Instruction Type:Provider Instructions for Treatment How to access health informa tion online Indication:Syncope Start:09-Jul-2018 Instruction Type:Patient Education How to access health informa tion online - Detail Indication:Syncope Start:09-Jul-2018 Instruction Type:Patient Education Patient Instructions Indication:Syncope Start:09-Jul-2018 Instruction Type:Provider Instructions for Treatment How to access health informa tion online Indication:Syncope Start:29-Jun-2018 Instruction Type:Patient Education How to access health informa tion online - Detail Indication:Syncope Start:29-Jun-2018 Instruction Type:Patient Education Patient Instructions Indication:Syncope Start:29-Jun-2018 Instruction Type:Provider Instructions for Treatment How to access health informa tion online Indication:Lymphocytosis Start:01-Jun-2018 Instruction Type:Patient Education How to access health informa tion online - Detail Indication:Lymphocytosis Start:01-Jun-2018 Instruction Type:Patient Education Patient Instructions Indication:Lymphocytosis Start:01-Jun-2018 Instruction Type:Provider Instructions for Treatment How to access health informa tion online Indication:Family history of malignant neoplasm of gastrointestinal tract (Renamed from Family history of cancer of digestive system) Start:31-Jan-2018 Instruction Type:Patient Education How to access health informa tion online - Detail Indication:Family history of malignant neoplasm of gastrointestinal tract (Renamed from Family history of cancer of digestive system) Start:31-Jan-2018 Instruction Type:Patient Education Patient Instructions Indication:Family history of malignant neoplasm of gastrointestinal tract (Renamed from Family history of cancer of digestive system) Start:31-Jan-2018 Instruction Type:Provider Instructions for Treatment How to access health informa tion online Indication:BMI 21.0-21.9, adult Start:27-Sep-2017 Instruction Type:Patient Education How to access health informa tion online - Detail Indication:BMI 21.0-21.9, adult Start:27-Sep-2017 Instruction Type:Patient Education Patient Instructions Indication:BMI 21.0-21.9, adult Start:27-Sep-2017 Instruction Type:Provider Instructions for Treatment How to access health informa tion online Indication:BMI 22.0-22.9, adult Start:26-May-2017 Instruction Type:Patient Education How to access health informa tion online - Detail Indication:BMI 22.0-22.9, adult Start:26-May-2017 Instruction Type:Patient Education Patient Instructions Indication:BMI 22.0-22.9, adult Start:26-May-2017 Instruction Type:Provider Instructions for Treatment How to access health informa tion online Indication:Current nonsmoker (Renamed from Current non-smoker) Start:18-Jan-2017 Instruction Type:Patient Education How to access health informa tion online - Detail Indication:Current nonsmoker (Renamed from Current non-smoker) Start:18-Jan-2017 Instruction Type:Patient Education Patient Instructions Indication:Current nonsmoker (Renamed from Current non-smoker) Start:18-Jan-2017 Instruction Type:Provider Instructions for Treatment How to access health informa tion online Indication:[facility] Start:14-Sep-2016 Instruction Type:Patient Education How to access health informa tion online - Detail Indication:[facility] Start:14-Sep-2016 Instruction Type:Patient Education Patient Instructions Indication:[facility] Start:14-Sep-2016 Instruction Type:Provider Instructions for Treatment How to access health informa tion online Indication:Osteoporosis Start:15-Apr-2016 Instruction Type:Patient Education How to access health informa tion online - Detail Indication:Osteoporosis Start:15-Apr-2016 Instruction Type:Patient Education Patient Instructions Indication:Osteoporosis Start:15-Apr-2016 Instruction Type:Provider Instructions for Treatment How to access health informa tion online Indication:[facility] Start:11-Sep-2015 Instruction Type:Patient Education How to access health informa tion online - Detail Ind[facility] Start:11-Sep-2015 Instruction Type:Patient Education Patient Instructions Indication:[facility] Start:11-Sep-2015 Instruction Type:Provider Instructions for Treatment How to access health informa tion online Indication:Low Back Pain Start:17-Feb-2015 Instruction Type:Patient Education How to access health informa tion online - Detail Indication:Low Back Pain Start:17-Feb-2015 Instruction Type:Patient Education Patient Instructions Indication:Low Back Pain Start:17-Feb-2015 Instruction Type:Provider Instructions for Treatment Patient Instructions Indication:Encounter for Medicare annual wellness exam Start:27-Aug-2014 Instruction Type:Provider Instructions for Treatment How to access health informa tion online Indication:Encounter for Medicare annual wellness exam Start:27-Aug-2014 Instruction Type:Patient Education How to access health informa tion online - Detail Indication:Encounter for Medicare annual wellness exam Start:27-Aug-2014 Instruction Type:Patient Education Patient Instructions Indication:Headache Start:23-Apr-2014 Instruction Type:Provider Instructions for Treatment Patient Instructions Indication:Osteopenia Start:02-Aug-2013 Instruction Type:Provider Instructions for Treatment Patient Instructions Indication:Ultrasound scan abnormal Start:22-Mar-2013 Instruction Type:Provider Instructions for Treatment Patient Instructions Indication:Abdominal pain, acute, generalized Start:13-Feb-2013 Instruction Type:Provider Instructions for Treatment Patient Instructions Indication:Encounter for Medicare annual wellness exam Start:20-Aug-2012 Instruction Type:Provider Instructions for Treatment Patient Instructions Indication:Elevated blood-pressure reading without diagnosis of hypertension Start:11-Jul-2012 Instruction Type:Provider Instructions for Treatment Patient Instructions Indication:Osteopenia Start:11-Apr-2012 Instruction Type:Provider Instructions for Treatment Name Dates Details How to access health informa tion online Indication:Syncope Start:20-Jul-2018 Instruction Type:Patient Education How to access health informa tion online - Detail Indication:Syncope Start:20-Jul-2018 Instruction Type:Patient Education Patient Instructions Indication:Syncope Start:20-Jul-2018 Instruction Type:Provider Instructions for Treatment How to access health informa tion online Indication:Syncope Start:09-Jul-2018 Instruction Type:Patient Education How to access health informa tion online - Detail Indication:Syncope Start:09-Jul-2018 Instruction Type:Patient Education Patient Instructions Indication:Syncope Start:09-Jul-2018 Instruction Type:Provider Instructions for Treatment How to access health informa tion online Indication:Syncope Start:29-Jun-2018 Instruction Type:Patient Education How to access health informa tion online - Detail Indication:Syncope Start:29-Jun-2018 Instruction Type:Patient Education Patient Instructions Indication:Syncope Start:29-Jun-2018 Instruction Type:Provider Instructions for Treatment How to access health informa tion online Indication:Lymphocytosis Start:01-Jun-2018 Instruction Type:Patient Education How to access health informa tion online - Detail Indication:Lymphocytosis Start:01-Jun-2018 Instruction Type:Patient Education Patient Instructions Indication:Lymphocytosis Start:01-Jun-2018 Instruction Type:Provider Instructions for Treatment How to access health informa tion online Indication:Family history of malignant neoplasm of gastrointestinal tract (Renamed from Family history of cancer of digestive system) Start:31-Jan-2018 Instruction Type:Patient Education How to access health informa tion online - Detail Indication:Family history of malignant neoplasm of gastrointestinal tract (Renamed from Family history of cancer of digestive system) Start:31-Jan-2018 Instruction Type:Patient Education Patient Instructions Indication:Family history of malignant neoplasm of gastrointestinal tract (Renamed from Family history of cancer of digestive system) Start:31-Jan-2018 Instruction Type:Provider Instructions for Treatment How to access health informa tion online Indication:BMI 21.0-21.9, adult Start:27-Sep-2017 Instruction Type:Patient Education How to access health informa tion online - Detail Indication:BMI 21.0-21.9, adult Start:27-Sep-2017 Instruction Type:Patient Education Patient Instructions Indication:BMI 21.0-21.9, adult Start:27-Sep-2017 Instruction Type:Provider Instructions for Treatment How to access health informa tion online Indication:BMI 22.0-22.9, adult Start:26-May-2017 Instruction Type:Patient Education How to access health informa tion online - Detail Indication:BMI 22.0-22.9, adult Start:26-May-2017 Instruction Type:Patient Education Patient Instructions Indication:BMI 22.0-22.9, adult Start:26-May-2017 Instruction Type:Provider Instructions for Treatment How to access health informa tion online Indication:Current nonsmoker (Renamed from Current non-smoker) Start:18-Jan-2017 Instruction Type:Patient Education How to access health informa tion online - Detail Indication:Current nonsmoker (Renamed from Current non-smoker) Start:18-Jan-2017 Instruction Type:Patient Education Patient Instructions Indication:Current nonsmoker (Renamed from Current non-smoker) Start:18-Jan-2017 Instruction Type:Provider Instructions for Treatment How to access health informa tion online Indication:[facility] EXAM Start:14-Sep-2016 Instruction Type:Patient Education How to access health informa tion online - Detail Indication:[facility] Start:14-Sep-2016 Instruction Type:Patient Education Patient Instructions Indication:[facility] Start:14-Sep-2016 Instruction Type:Provider Instructions for Treatment How to access health informa tion online Indication:Osteoporosis Start:15-Apr-2016 Instruction Type:Patient Education How to access health informa tion online - Detail Indication:Osteoporosis Start:15-Apr-2016 Instruction Type:Patient Education Patient Instructions Indication:Osteoporosis Start:15-Apr-2016 Instruction Type:Provider Instructions for Treatment How to access health informa tion online Indication:[facility] Start:11-Sep-2015 Instruction Type:Patient Education How to access health informa tion online - Detail Indication:[facility] Start:11-Sep-2015 Instruction Type:Patient Education Patient Instructions Indication:[facility] Start:11-Sep-2015 Instruction Type:Provider Instructions for Treatment How to access health informa tion online Indication:Low Back Pain Start:17-Feb-2015 Instruction Type:Patient Education How to access health informa tion online - Detail Indication:Low Back Pain Start:17-Feb-2015 Instruction Type:Patient Education Patient Instructions Indication:Low Back Pain Start:17-Feb-2015 Instruction Type:Provider Instructions for Treatment Patient Instructions Indication:Encounter for Medicare annual wellness exam Start:27-Aug-2014 Instruction Type:Provider Instructions for Treatment How to access health informa tion online Indication:Encounter for Medicare annual wellness exam Start:27-Aug-2014 Instruction Type:Patient Education How to access health informa tion online - Detail Indication:Encounter for Medicare annual wellness exam Start:27-Aug-2014 Instruction Type:Patient Education Patient Instructions Indication:Headache Start:23-Apr-2014 Instruction Type:Provider Instructions for Treatment Patient Instructions Indication:Osteopenia Start:02-Aug-2013 Instruction Type:Provider Instructions for Treatment Patient Instructions Indication:Ultrasound scan abnormal Start:22-Mar-2013 Instruction Type:Provider Instructions for Treatment Patient Instructions Indication:Abdominal pain, acute, generalized Start:13-Feb-2013 Instruction Type:Provider Instructions for Treatment Patient Instructions Indication:Encounter for Medicare annual wellness exam Start:20-Aug-2012 Instruction Type:Provider Instructions for Treatment Patient Instructions Indication:Elevated blood-pressure reading without diagnosis of hypertension Start:11-Jul-2012 Instruction Type:Provider Instructions for Treatment Patient Instructions Indication:Osteopenia Start:11-Apr-2012 Instruction Type:Provider Instructions for Treatment Name Dates Details How to access health informa tion online Indication:Elevated hemoglobin A1c Start:29-Oct-2018 Instruction Type:Patient Education How to access health informa tion online - Detail Indication:Elevated hemoglobin A1c Start:29-Oct-2018 Instruction Type:Patient Education Patient Instructions Indication:Elevated hemoglobin A1c Start:29-Oct-2018 Instruction Type:Provider Instructions for Treatment How to access health informa tion online Indication:Syncope Start:20-Jul-2018 Instruction Type:Patient Education How to access health informa tion online - Detail Indication:Syncope Start:20-Jul-2018 Instruction Type:Patient Education Patient Instructions Indication:Syncope Start:20-Jul-2018 Instruction Type:Provider Instructions for Treatment How to access health informa tion online Indication:Syncope Start:09-Jul-2018 Instruction Type:Patient Education How to access health informa tion online - Detail Indication:Syncope Start:09-Jul-2018 Instruction Type:Patient Education Patient Instructions Indication:Syncope Start:09-Jul-2018 Instruction Type:Provider Instructions for Treatment How to access health informa tion online Indication:Syncope Start:29-Jun-2018 Instruction Type:Patient Education How to access health informa tion online - Detail Indication:Syncope Start:29-Jun-2018 Instruction Type:Patient Education Patient Instructions Indication:Syncope Start:29-Jun-2018 Instruction Type:Provider Instructions for Treatment How to access health informa tion online Indication:Lymphocytosis Start:01-Jun-2018 Instruction Type:Patient Education How to access health informa tion online - Detail Indication:Lymphocytosis Start:01-Jun-2018 Instruction Type:Patient Education Patient Instructions Indication:Lymphocytosis Start:01-Jun-2018 Instruction Type:Provider Instructions for Treatment How to access health informa tion online Indication:Family history of malignant neoplasm of gastrointestinal tract (Renamed from Family history of cancer of digestive system) Start:31-Jan-2018 Instruction Type:Patient Education How to access health informa tion online - Detail Indication:Family history of malignant neoplasm of gastrointestinal tract (Renamed from Family history of cancer of digestive system) Start:31-Jan-2018 Instruction Type:Patient Education Patient Instructions Indication:Family history of malignant neoplasm of gastrointestinal tract (Renamed from Family history of cancer of digestive system) Start:31-Jan-2018 Instruction Type:Provider Instructions for Treatment How to access health informa tion online Indication:BMI 21.0-21.9, adult Start:27-Sep-2017 Instruction Type:Patient Education How to access health informa tion online - Detail Indication:BMI 21.0-21.9, adult Start:27-Sep-2017 Instruction Type:Patient Education Patient Instructions Indication:BMI 21.0-21.9, adult Start:27-Sep-2017 Instruction Type:Provider Instructions for Treatment How to access health informa tion online Indication:BMI 22.0-22.9, adult Start:26-May-2017 Instruction Type:Patient Education How to access health informa tion online - Detail Indication:BMI 22.0-22.9, adult Start:26-May-2017 Instruction Type:Patient Education Patient Instructions Indication:BMI 22.0-22.9, adult Start:26-May-2017 Instruction Type:Provider Instructions for Treatment How to access health informa tion online Indication:Current nonsmoker (Renamed from Current non-smoker) Start:18-Jan-2017 Instruction Type:Patient Education How to access health informa tion online - Detail Indication:Current nonsmoker (Renamed from Current non-smoker) Start:18-Jan-2017 Instruction Type:Patient Education Patient Instructions Indication:Current nonsmoker (Renamed from Current non-smoker) Start:18-Jan-2017 Instruction Type:Provider Instructions for Treatment How to access health informa tion online Indication:[facility] Start:14-Sep-2016 Instruction Type:Patient Education How to access health informa tion online - Detail Indication:[facility] Start:14-Sep-2016 Instruction Type:Patient Education Patient Instructions Indication:[facility] Start:14-Sep-2016 Instruction Type:Provider Instructions for Treatment How to access health informa tion online Indication:Osteoporosis Start:15-Apr-2016 Instruction Type:Patient Education How to access health informa tion online - Detail Indication:Osteoporosis Start:15-Apr-2016 Instruction Type:Patient Education Patient Instructions Indication:Osteoporosis Start:15-Apr-2016 Instruction Type:Provider Instructions for Treatment How to access health informa tion online Indication:[facility] Start:11-Sep-2015 Instruction Type:Patient Education How to access health informa tion online - Detail Indication:[facility] Start:11-Sep-2015 Instruction Type:Patient Education Patient Instructions Ind[facility] Start:11-Sep-2015 Instruction Type:Provider Instructions for Treatment How to access health informa tion online Indication:Low Back Pain Start:17-Feb-2015 Instruction Type:Patient Education How to access health informa tion online - Detail Indication:Low Back Pain Start:17-Feb-2015 Instruction Type:Patient Education Patient Instructions Indication:Low Back Pain Start:17-Feb-2015 Instruction Type:Provider Instructions for Treatment Patient Instructions Indication:Encounter for Medicare annual wellness exam Start:27-Aug-2014 Instruction Type:Provider Instructions for Treatment How to access health informa tion online Indication:Encounter for Medicare annual wellness exam Start:27-Aug-2014 Instruction Type:Patient Education How to access health informa tion online - Detail Indication:Encounter for Medicare annual wellness exam Start:27-Aug-2014 Instruction Type:Patient Education Patient Instructions Indication:Headache Start:23-Apr-2014 Instruction Type:Provider Instructions for Treatment Patient Instructions Indication:Osteopenia Start:02-Aug-2013 Instruction Type:Provider Instructions for Treatment Patient Instructions Indication:Ultrasound scan abnormal Start:22-Mar-2013 Instruction Type:Provider Instructions for Treatment Patient Instructions Indication:Abdominal pain, acute, generalized Start:13-Feb-2013 Instruction Type:Provider Instructions for Treatment Patient Instructions Indication:Encounter for Medicare annual wellness exam Start:20-Aug-2012 Instruction Type:Provider Instructions for Treatment Patient Instructions Indication:Elevated blood-pressure reading without diagnosis of hypertension Start:11-Jul-2012 Instruction Type:Provider Instructions for Treatment Patient Instructions Indication:Osteopenia Start:11-Apr-2012 Instruction Type:Provider Instructions for Treatment Name Dates Details How to access health informa [employer] online Indication:Elevated hemoglobin A1c Start:29-Oct-2018 Instruction Type:Patient Education How to access health informa tion online - Detail Indication:Elevated hemoglobin A1c Start:29-Oct-2018 Instruction Type:Patient Education Patient Instructions Indication:Elevated hemoglobin A1c Start:29-Oct-2018 Instruction Type:Provider Instructions for Treatment How to access health informa tion online Indication:Syncope Start:20-Jul-2018 Instruction Type:Patient Education How to access health informa tion online - Detail Indication:Syncope Start:20-Jul-2018 Instruction Type:Patient Education Patient Instructions Indication:Syncope Start:20-Jul-2018 Instruction Type:Provider Instructions for Treatment How to access health informa tion online Indication:Syncope Start:09-Jul-2018 Instruction Type:Patient Education How to access health informa tion online - Detail Indication:Syncope Start:09-Jul-2018 Instruction Type:Patient Education Patient Instructions Indication:Syncope Start:09-Jul-2018 Instruction Type:Provider Instructions for Treatment How to access health informa tion online Indication:Syncope Start:29-Jun-2018 Instruction Type:Patient Education How to access health informa tion online - Detail Indication:Syncope Start:29-Jun-2018 Instruction Type:Patient Education Patient Instructions Indication:Syncope Start:29-Jun-2018 Instruction Type:Provider Instructions for Treatment How to access health informa tion online Indication:Lymphocytosis Start:01-Jun-2018 Instruction Type:Patient Education How to access health informa tion online - Detail Indication:Lymphocytosis Start:01-Jun-2018 Instruction Type:Patient Education Patient Instructions Indication:Lymphocytosis Start:01-Jun-2018 Instruction Type:Provider Instructions for Treatment How to access health informa tion online Indication:Family history of malignant neoplasm of gastrointestinal tract (Renamed from Family history of cancer of digestive system) Start:31-Jan-2018 Instruction Type:Patient Education How to access health informa tion online - Detail Indication:Family history of malignant neoplasm of gastrointestinal tract (Renamed from Family history of cancer of digestive system) Start:31-Jan-2018 Instruction Type:Patient Education Patient Instructions Indication:Family history of malignant neoplasm of gastrointestinal tract (Renamed from Family history of cancer of digestive system) Start:31-Jan-2018 Instruction Type:Provider Instructions for Treatment How to access health informa tion online Indication:BMI 21.0-21.9, adult Start:27-Sep-2017 Instruction Type:Patient Education How to access health informa tion online - Detail Indication:BMI 21.0-21.9, adult Start:27-Sep-2017 Instruction Type:Patient Education Patient Instructions Indication:BMI 21.0-21.9, adult Start:27-Sep-2017 Instruction Type:Provider Instructions for Treatment How to access health informa tion online Indication:BMI 22.0-22.9, adult Start:26-May-2017 Instruction Type:Patient Education How to access health informa tion online - Detail Indication:BMI 22.0-22.9, adult Start:26-May-2017 Instruction Type:Patient Education Patient Instructions Indication:BMI 22.0-22.9, adult Start:26-May-2017 Instruction Type:Provider Instructions for Treatment How to access health informa tion online Indication:Current nonsmoker (Renamed from Current non-smoker) Start:18-Jan-2017 Instruction Type:Patient Education How to access health informa tion online - Detail Indication:Current nonsmoker (Renamed from Current non-smoker) Start:18-Jan-2017 Instruction Type:Patient Education Patient Instructions Indication:Current nonsmoker (Renamed from Current non-smoker) Start:18-Jan-2017 Instruction Type:Provider Instructions for Treatment How to access health informa tion online Indication:[facility] Start:14-Sep-2016 Instruction Type:Patient Education How to access health informa tion online - Detail Indication:[facility] Start:14-Sep-2016 Instruction Type:Patient Education Patient Instructions Indication:[facility] Start:14-Sep-2016 Instruction Type:Provider Instructions for Treatment How to access health informa tion online Indication:Osteoporosis Start:15-Apr-2016 Instruction Type:Patient Education How to access health informa tion online - Detail Indication:Osteoporosis Start:15-Apr-2016 Instruction Type:Patient Education Patient Instructions Indication:Osteoporosis Start:15-Apr-2016 Instruction Type:Provider Instructions for Treatment How to access health informa tion online Indication:[facility] Start:11-Sep-2015 Instruction Type:Patient Education How to access health informa tion online - Detail Indication:[facility] Start:11-Sep-2015 Instruction Type:Patient Education Patient Instructions Indication:[facility] Start:11-Sep-2015 Instruction Type:Provider Instructions for Treatment How to access health informa tion online Indication:Low Back Pain Start:17-Feb-2015 Instruction Type:Patient Education How to access health informa tion online - Detail Indication:Low Back Pain Start:17-Feb-2015 Instruction Type:Patient Education Patient Instructions Indication:Low Back Pain Start:17-Feb-2015 Instruction Type:Provider Instructions for Treatment Patient Instructions Indication:Encounter for Medicare annual wellness exam Start:27-Aug-2014 Instruction Type:Provider Instructions for Treatment How to access health informa tion online Indication:Encounter for Medicare annual wellness exam Start:27-Aug-2014 Instruction Type:Patient Education How to access health informa tion online - Detail Indication:Encounter for Medicare annual wellness exam Start:27-Aug-2014 Instruction Type:Patient Education Patient Instructions Indication:Headache Start:23-Apr-2014 Instruction Type:Provider Instructions for Treatment Patient Instructions Indication:Osteopenia Start:02-Aug-2013 Instruction Type:Provider Instructions for Treatment Patient Instructions Indication:Ultrasound scan abnormal Start:22-Mar-2013 Instruction Type:Provider Instructions for Treatment Patient Instructions Indication:Abdominal pain, acute, generalized Start:13-Feb-2013 Instruction Type:Provider Instructions for Treatment Patient Instructions Indication:Encounter for Medicare annual wellness exam Start:20-Aug-2012 Instruction Type:Provider Instructions for Treatment Patient Instructions Indication:Elevated blood-pressure reading without diagnosis of hypertension Start:11-Jul-2012 Instruction Type:Provider Instructions for Treatment Patient Instructions Indication:Osteopenia Start:11-Apr-2012 Instruction Type:Provider Instructions for Treatment Name Dates Details How to access health informa tion online Indication:Lymphocytosis Start:18-Sep-2019 Instruction Type:Patient Education How to access health informa tion online - Detail Indication:Lymphocytosis Start:18-Sep-2019 Instruction Type:Patient Education Patient Instructions Indication:Lymphocytosis Start:18-Sep-2019 Instruction Type:Provider Instructions for Treatment Patient Instructions Indication:Elevated hemoglobin A1c Start:18-Jun-2019 Instruction Type:Provider Instructions for Treatment How to access health informa tion online Indication:Abnormal lung function test Start:19-Mar-2019 Instruction Type:Patient Education How to access health informa tion online - Detail Indication:Abnormal lung function test Start:19-Mar-2019 Instruction Type:Patient Education Patient Instructions Indication:Abnormal lung function test Start:19-Mar-2019 Instruction Type:Provider Instructions for Treatment How to access health informa tion online Indication:[facility] Start:30-Jan-2019 Instruction Type:Patient Education How to access health informa tion online - Detail Indication:[facility] Start:30-Jan-2019 Instruction Type:Patient Education Patient Instructions Indication:[facility] Start:30-Jan-2019 Instruction Type:Provider Instructions for Treatment How to access health informa tion online Indication:Elevated hemoglobin A1c Start:29-Oct-2018 Instruction Type:Patient Education How to access health informa tion online - Detail Indication:Elevated hemoglobin A1c Start:29-Oct-2018 Instruction Type:Patient Education Patient Instructions Indication:Elevated hemoglobin A1c Start:29-Oct-2018 Instruction Type:Provider Instructions for Treatment How to access health informa tion online Indication:Syncope Start:20-Jul-2018 Instruction Type:Patient Education How to access health informa tion online - Detail Indication:Syncope Start:20-Jul-2018 Instruction Type:Patient Education Patient Instructions Indication:Syncope Start:20-Jul-2018 Instruction Type:Provider Instructions for Treatment How to access health informa tion online Indication:Syncope Start:09-Jul-2018 Instruction Type:Patient Education How to access health informa tion online - Detail Indication:Syncope Start:09-Jul-2018 Instruction Type:Patient Education Patient Instructions Indication:Syncope Start:09-Jul-2018 Instruction Type:Provider Instructions for Treatment How to access health informa tion online Indication:Syncope Start:29-Jun-2018 Instruction Type:Patient Education How to access health informa tion online - Detail Indication:Syncope Start:29-Jun-2018 Instruction Type:Patient Education Patient Instructions Indication:Syncope Start:29-Jun-2018 Instruction Type:Provider Instructions for Treatment How to access health informa tion online Indication:Lymphocytosis Start:01-Jun-2018 Instruction Type:Patient Education How to access health informa tion online - Detail Indication:Lymphocytosis Start:01-Jun-2018 Instruction Type:Patient Education Patient Instructions Indication:Lymphocytosis Start:01-Jun-2018 Instruction Type:Provider Instructions for Treatment How to access health informa tion online Indication:Family history of malignant neoplasm of gastrointestinal tract (Renamed from Family history of cancer of digestive system) Start:31-Jan-2018 Instruction Type:Patient Education How to access health informa tion online - Detail Indication:Family history of malignant neoplasm of gastrointestinal tract (Renamed from Family history of cancer of digestive system) Start:31-Jan-2018 Instruction Type:Patient Education Patient Instructions Indication:Family history of malignant neoplasm of gastrointestinal tract (Renamed from Family history of cancer of digestive system) Start:31-Jan-2018 Instruction Type:Provider Instructions for Treatment How to access health informa tion online Indication:BMI 21.0-21.9, adult Start:27-Sep-2017 Instruction Type:Patient Education How to access health informa tion online - Detail Indication:BMI 21.0-21.9, adult Start:27-Sep-2017 Instruction Type:Patient Education Patient Instructions Indication:BMI 21.0-21.9, adult Start:27-Sep-2017 Instruction Type:Provider Instructions for Treatment How to access health informa tion online Indication:BMI 22.0-22.9, adult Start:26-May-2017 Instruction Type:Patient Education How to access health informa tion online - Detail Indication:BMI 22.0-22.9, adult Start:26-May-2017 Instruction Type:Patient Education Patient Instructions Indication:BMI 22.0-22.9, adult Start:26-May-2017 Instruction Type:Provider Instructions for Treatment How to access health informa tion online Indication:Current nonsmoker (Renamed from Current non-smoker) Start:18-Jan-2017 Instruction Type:Patient Education How to access health informa tion online - Detail Indication:Current nonsmoker (Renamed from Current non-smoker) Start:18-Jan-2017 Instruction Type:Patient Education Patient Instructions Indication:Current nonsmoker (Renamed from Current non-smoker) Start:18-Jan-2017 Instruction Type:Provider Instructions for Treatment How to access health informa tion online Indication:[facility] EXAM Start:14-Sep-2016 Instruction Type:Patient Education How to access health informa tion online - Detail Indication:[facility] Start:14-Sep-2016 Instruction Type:Patient Education Patient Instructions Ind[facility] Start:14-Sep-2016 Instruction Type:Provider Instructions for Treatment How to access health informa tion online Indication:Osteoporosis Start:15-Apr-2016 Instruction Type:Patient Education How to access health informa tion online - Detail Indication:Osteoporosis Start:15-Apr-2016 Instruction Type:Patient Education Patient Instructions Indication:Osteoporosis Start:15-Apr-2016 Instruction Type:Provider Instructions for Treatment How to access health informa tion online Indication:[facility] Start:11-Sep-2015 Instruction Type:Patient Education How to access health informa tion online - Detail Indication[facility] Start:11-Sep-2015 Instruction Type:Patient Education Patient Instructions Indication:[facility] Start:11-Sep-2015 Instruction Type:Provider Instructions for Treatment How to access health informa tion online Indication:Low Back Pain Start:17-Feb-2015 Instruction Type:Patient Education How to access health informa tion online - Detail Indication:Low Back Pain Start:17-Feb-2015 Instruction Type:Patient Education Patient Instructions Indication:Low Back Pain Start:17-Feb-2015 Instruction Type:Provider Instructions for Treatment Patient Instructions Indication:Encounter for Medicare annual wellness exam Start:27-Aug-2014 Instruction Type:Provider Instructions for Treatment How to access health informa tion online Indication:Encounter for Medicare annual wellness exam Start:27-Aug-2014 Instruction Type:Patient Education How to access health informa tion online - Detail Indication:Encounter for Medicare annual wellness exam Start:27-Aug-2014 Instruction Type:Patient Education Patient Instructions Indication:Headache Start:23-Apr-2014 Instruction Type:Provider Instructions for Treatment Patient Instructions Indication:Osteopenia Start:02-Aug-2013 Instruction Type:Provider Instructions for Treatment Patient Instructions Indication:Ultrasound scan abnormal Start:22-Mar-2013 Instruction Type:Provider Instructions for Treatment Patient Instructions Indication:Abdominal pain, acute, generalized Start:13-Feb-2013 Instruction Type:Provider Instructions for Treatment Patient Instructions Indication:Encounter for Medicare annual wellness exam Start:20-Aug-2012 Instruction Type:Provider Instructions for Treatment Patient Instructions Indication:Elevated blood-pressure reading without diagnosis of hypertension Start:11-Jul-2012 Instruction Type:Provider Instructions for Treatment Patient Instructions Indication:Osteopenia Start:11-Apr-2012 Instruction Type:Provider Instructions for Treatment Name Dates Details How to access health informa tion online Indication:Lymphocytosis Start:18-Sep-2019 Instruction Type:Patient Education How to access health informa tion online - Detail Indication:Lymphocytosis Start:18-Sep-2019 Instruction Type:Patient Education Patient Instructions Indication:Lymphocytosis Start:18-Sep-2019 Instruction Type:Provider Instructions for Treatment Patient Instructions Indication:Elevated hemoglobin A1c Start:18-Jun-2019 Instruction Type:Provider Instructions for Treatment How to access health informa tion online Indication:Abnormal lung function test Start:19-Mar-2019 Instruction Type:Patient Education How to access health informa tion online - Detail Indication:Abnormal lung function test Start:19-Mar-2019 Instruction Type:Patient Education Patient Instructions Indication:Abnormal lung function test Start:19-Mar-2019 Instruction Type:Provider Instructions for Treatment How to access health informa tion online Indication:[facility] EX[facility] Start:30-Jan-2019 Instruction Type:Patient Education How to access health informa tion online - Detail Indication:[facility] Start:30-Jan-2019 Instruction Type:Patient Education Patient Instructions Indication:[facility] Start:30-Jan-2019 Instruction Type:Provider Instructions for Treatment How to access health informa tion online Indication:Elevated hemoglobin A1c Start:29-Oct-2018 Instruction Type:Patient Education How to access health informa tion online - Detail Indication:Elevated hemoglobin A1c Start:29-Oct-2018 Instruction Type:Patient Education Patient Instructions Indication:Elevated hemoglobin A1c Start:29-Oct-2018 Instruction Type:Provider Instructions for Treatment How to access health informa tion online Indication:Syncope Start:20-Jul-2018 Instruction Type:Patient Education How to access health informa tion online - Detail Indication:Syncope Start:20-Jul-2018 Instruction Type:Patient Education Patient Instructions Indication:Syncope Start:20-Jul-2018 Instruction Type:Provider Instructions for Treatment How to access health informa tion online Indication:Syncope Start:09-Jul-2018 Instruction Type:Patient Education How to access health informa tion online - Detail Indication:Syncope Start:09-Jul-2018 Instruction Type:Patient Education Patient Instructions Indication:Syncope Start:09-Jul-2018 Instruction Type:Provider Instructions for Treatment How to access health informa tion online Indication:Syncope Start:29-Jun-2018 Instruction Type:Patient Education How to access health informa tion online - Detail Indication:Syncope Start:29-Jun-2018 Instruction Type:Patient Education Patient Instructions Indication:Syncope Start:29-Jun-2018 Instruction Type:Provider Instructions for Treatment How to access health informa tion online Indication:Lymphocytosis Start:01-Jun-2018 Instruction Type:Patient Education How to access health informa tion online - Detail Indication:Lymphocytosis Start:01-Jun-2018 Instruction Type:Patient Education Patient Instructions Indication:Lymphocytosis Start:01-Jun-2018 Instruction Type:Provider Instructions for Treatment How to access health informa tion online Indication:Family history of malignant neoplasm of gastrointestinal tract (Renamed from Family history of cancer of digestive system) Start:31-Jan-2018 Instruction Type:Patient Education How to access health informa tion online - Detail Indication:Family history of malignant neoplasm of gastrointestinal tract (Renamed from Family history of cancer of digestive system) Start:31-Jan-2018 Instruction Type:Patient Education Patient Instructions Indication:Family history of malignant neoplasm of gastrointestinal tract (Renamed from Family history of cancer of digestive system) Start:31-Jan-2018 Instruction Type:Provider Instructions for Treatment How to access health informa tion online Indication:BMI 21.0-21.9, adult Start:27-Sep-2017 Instruction Type:Patient Education How to access health informa tion online - Detail Indication:BMI 21.0-21.9, adult Start:27-Sep-2017 Instruction Type:Patient Education Patient Instructions Indication:BMI 21.0-21.9, adult Start:27-Sep-2017 Instruction Type:Provider Instructions for Treatment How to access health informa tion online Indication:BMI 22.0-22.9, adult Start:26-May-2017 Instruction Type:Patient Education How to access health informa tion online - Detail Indication:BMI 22.0-22.9, adult Start:26-May-2017 Instruction Type:Patient Education Patient Instructions Indication:BMI 22.0-22.9, adult Start:26-May-2017 Instruction Type:Provider Instructions for Treatment How to access health informa tion online Indication:Current nonsmoker (Renamed from Current non-smoker) Start:18-Jan-2017 Instruction Type:Patient Education How to access health informa tion online - Detail Indication:Current nonsmoker (Renamed from Current non-smoker) Start:18-Jan-2017 Instruction Type:Patient Education Patient Instructions Indication:Current nonsmoker (Renamed from Current non-smoker) Start:18-Jan-2017 Instruction Type:Provider Instructions for Treatment How to access health informa tion online Indication:[facility] Start:14-Sep-2016 Instruction Type:Patient Education How to access health informa tion online - Detail Indication:[facility] Start:14-Sep-2016 Instruction Type:Patient Education Patient Instructions Indication:[facility] Start:14-Sep-2016 Instruction Type:Provider Instructions for Treatment How to access health informa tion online Indication:Osteoporosis Start:15-Apr-2016 Instruction Type:Patient Education How to access health informa tion online - Detail Indication:Osteoporosis Start:15-Apr-2016 Instruction Type:Patient Education Patient Instructions Indication:Osteoporosis Start:15-Apr-2016 Instruction Type:Provider Instructions for Treatment How to access health informa tion online Indication:[facility] EX[facility] Start:11-Sep-2015 Instruction Type:Patient Education How to access health informa tion online - Detail Indication:[facility] Start:11-Sep-2015 Instruction Type:Patient Education Patient Instructions Indication:[facility] Start:11-Sep-2015 Instruction Type:Provider Instructions for Treatment How to access health informa tion online Indication:Low Back Pain Start:17-Feb-2015 Instruction Type:Patient Education How to access health informa tion online - Detail Indication:Low Back Pain Start:17-Feb-2015 Instruction Type:Patient Education Patient Instructions Indication:Low Back Pain Start:17-Feb-2015 Instruction Type:Provider Instructions for Treatment Patient Instructions Indication:Encounter for Medicare annual wellness exam Start:27-Aug-2014 Instruction Type:Provider Instructions for Treatment How to access health informa tion online Indication:Encounter for Medicare annual wellness exam Start:27-Aug-2014 Instruction Type:Patient Education How to access health informa tion online - Detail Indication:Encounter for Medicare annual wellness exam Start:27-Aug-2014 Instruction Type:Patient Education Patient Instructions Indication:Headache Start:23-Apr-2014 Instruction Type:Provider Instructions for Treatment Patient Instructions Indication:Osteopenia Start:02-Aug-2013 Instruction Type:Provider Instructions for Treatment Patient Instructions Indication:Ultrasound scan abnormal Start:22-Mar-2013 Instruction Type:Provider Instructions for Treatment Patient Instructions Indication:Abdominal pain, acute, generalized Start:13-Feb-2013 Instruction Type:Provider Instructions for Treatment Patient Instructions Indication:Encounter for Medicare annual wellness exam Start:20-Aug-2012 Instruction Type:Provider Instructions for Treatment Patient Instructions Indication:Elevated blood-pressure reading without diagnosis of hypertension Start:11-Jul-2012 Instruction Type:Provider Instructions for Treatment Patient Instructions Indication:Osteopenia Start:11-Apr-2012 Instruction Type:Provider Instructions for Treatment Name Dates Details How to access health informa tion online Indication:Lymphocytosis Start:18-Sep-2019 Instruction Type:Patient Education How to access health informa tion online - Detail Indication:Lymphocytosis Start:18-Sep-2019 Instruction Type:Patient Education Patient Instructions Indication:Lymphocytosis Start:18-Sep-2019 Instruction Type:Provider Instructions for Treatment Patient Instructions Indication:Elevated hemoglobin A1c Start:18-Jun-2019 Instruction Type:Provider Instructions for Treatment How to access health informa tion online Indication:Abnormal lung function test Start:19-Mar-2019 Instruction Type:Patient Education How to access health informa tion online - Detail Indication:Abnormal lung function test Start:19-Mar-2019 Instruction Type:Patient Education Patient Instructions Indication:Abnormal lung function test Start:19-Mar-2019 Instruction Type:Provider Instructions for Treatment How to access health informa tion online Indication:[facility] EX[facility] Start:30-Jan-2019 Instruction Type:Patient Education How to access health informa tion online - Detail Indication:[facility] EX[facility] Start:30-Jan-2019 Instruction Type:Patient Education Patient Instructions Indication:[facility] EX[facility] Start:30-Jan-2019 Instruction Type:Provider Instructions for Treatment How to access health informa tion online Indication:Elevated hemoglobin A1c Start:29-Oct-2018 Instruction Type:Patient Education How to access health informa tion online - Detail Indication:Elevated hemoglobin A1c Start:29-Oct-2018 Instruction Type:Patient Education Patient Instructions Indication:Elevated hemoglobin A1c Start:29-Oct-2018 Instruction Type:Provider Instructions for Treatment How to access health informa tion online Indication:Syncope Start:20-Jul-2018 Instruction Type:Patient Education How to access health informa tion online - Detail Indication:Syncope Start:20-Jul-2018 Instruction Type:Patient Education Patient Instructions Indication:Syncope Start:20-Jul-2018 Instruction Type:Provider Instructions for Treatment How to access health informa tion online Indication:Syncope Start:09-Jul-2018 Instruction Type:Patient Education How to access health informa tion online - Detail Indication:Syncope Start:09-Jul-2018 Instruction Type:Patient Education Patient Instructions Indication:Syncope Start:09-Jul-2018 Instruction Type:Provider Instructions for Treatment How to access health informa tion online Indication:Syncope Start:29-Jun-2018 Instruction Type:Patient Education How to access health informa tion online - Detail Indication:Syncope Start:29-Jun-2018 Instruction Type:Patient Education Patient Instructions Indication:Syncope Start:29-Jun-2018 Instruction Type:Provider Instructions for Treatment How to access health informa tion online Indication:Lymphocytosis Start:01-Jun-2018 Instruction Type:Patient Education How to access health informa tion online - Detail Indication:Lymphocytosis Start:01-Jun-2018 Instruction Type:Patient Education Patient Instructions Indication:Lymphocytosis Start:01-Jun-2018 Instruction Type:Provider Instructions for Treatment How to access health informa tion online Indication:Family history of malignant neoplasm of gastrointestinal tract (Renamed from Family history of cancer of digestive system) Start:31-Jan-2018 Instruction Type:Patient Education How to access health informa tion online - Detail Indication:Family history of malignant neoplasm of gastrointestinal tract (Renamed from Family history of cancer of digestive system) Start:31-Jan-2018 Instruction Type:Patient Education Patient Instructions Indication:Family history of malignant neoplasm of gastrointestinal tract (Renamed from Family history of cancer of digestive system) Start:31-Jan-2018 Instruction Type:Provider Instructions for Treatment How to access health informa tion online Indication:BMI 21.0-21.9, adult Start:27-Sep-2017 Instruction Type:Patient Education How to access health informa tion online - Detail Indication:BMI 21.0-21.9, adult Start:27-Sep-2017 Instruction Type:Patient Education Patient Instructions Indication:BMI 21.0-21.9, adult Start:27-Sep-2017 Instruction Type:Provider Instructions for Treatment How to access health informa tion online Indication:BMI 22.0-22.9, adult Start:26-May-2017 Instruction Type:Patient Education How to access health informa tion online - Detail Indication:BMI 22.0-22.9, adult Start:26-May-2017 Instruction Type:Patient Education Patient Instructions Indication:BMI 22.0-22.9, adult Start:26-May-2017 Instruction Type:Provider Instructions for Treatment How to access health informa tion online Indication:Current nonsmoker (Renamed from Current non-smoker) Start:18-Jan-2017 Instruction Type:Patient Education How to access health informa tion online - Detail Indication:Current nonsmoker (Renamed from Current non-smoker) Start:18-Jan-2017 Instruction Type:Patient Education Patient Instructions Indication:Current nonsmoker (Renamed from Current non-smoker) Start:18-Jan-2017 Instruction Type:Provider Instructions for Treatment How to access health informa tion online Indication:[facility] EX[facility] Start:14-Sep-2016 Instruction Type:Patient Education How to access health informa tion online - Detail Indication:[facility] EX[facility] Start:14-Sep-2016 Instruction Type:Patient Education Patient Instructions Indication:[facility] EX[facility] Start:14-Sep-2016 Instruction Type:Provider Instructions for Treatment How to access health informa tion online Indication:Osteoporosis Start:15-Apr-2016 Instruction Type:Patient Education How to access health informa tion online - Detail Indication:Osteoporosis Start:15-Apr-2016 Instruction Type:Patient Education Patient Instructions Indication:Osteoporosis Start:15-Apr-2016 Instruction Type:Provider Instructions for Treatment How to access health informa tion online Indication:[facility] EXAM Start:11-Sep-2015 Instruction Type:Patient Education How to access health informa tion online - Detail Indication:[facility] EX[facility] Start:11-Sep-2015 Instruction Type:Patient Education Patient Instructions Indication:[facility] EX[facility] Start:11-Sep-2015 Instruction Type:Provider Instructions for Treatment How to access health informa tion online Indication:Low Back Pain Start:17-Feb-2015 Instruction Type:Patient Education How to access health informa tion online - Detail Indication:Low Back Pain Start:17-Feb-2015 Instruction Type:Patient Education Patient Instructions Indication:Low Back Pain Start:17-Feb-2015 Instruction Type:Provider Instructions for Treatment Patient Instructions Indication:Encounter for Medicare annual wellness exam Start:27-Aug-2014 Instruction Type:Provider Instructions for Treatment How to access health informa tion online Indication:Encounter for Medicare annual wellness exam Start:27-Aug-2014 Instruction Type:Patient Education How to access health informa tion online - Detail Indication:Encounter for Medicare annual wellness exam Start:27-Aug-2014 Instruction Type:Patient Education Patient Instructions Indication:Headache Start:23-Apr-2014 Instruction Type:Provider Instructions for Treatment Patient Instructions Indication:Osteopenia Start:02-Aug-2013 Instruction Type:Provider Instructions for Treatment Patient Instructions Indication:Ultrasound scan abnormal Start:22-Mar-2013 Instruction Type:Provider Instructions for Treatment Patient Instructions Indication:Abdominal pain, acute, generalized Start:13-Feb-2013 Instruction Type:Provider Instructions for Treatment Patient Instructions Indication:Encounter for Medicare annual wellness exam Start:20-Aug-2012 Instruction Type:Provider Instructions for Treatment Patient Instructions Indication:Elevated blood-pressure reading without diagnosis of hypertension Start:11-Jul-2012 Instruction Type:Provider Instructions for Treatment Patient Instructions Indication:Osteopenia Start:11-Apr-2012 Instruction Type:Provider Instructions for Treatment Name Dates Details How to access health informa tion online Indication:Lymphocytosis Start:18-Sep-2019 Instruction Type:Patient Education How to access health informa tion online - Detail Indication:Lymphocytosis Start:18-Sep-2019 Instruction Type:Patient Education Patient Instructions Indication:Lymphocytosis Start:18-Sep-2019 Instruction Type:Provider Instructions for Treatment Patient Instructions Indication:Elevated hemoglobin A1c Start:18-Jun-2019 Instruction Type:Provider Instructions for Treatment How to access health informa tion online Indication:Abnormal lung function test Start:19-Mar-2019 Instruction Type:Patient Education How to access health informa tion online - Detail Indication:Abnormal lung function test Start:19-Mar-2019 Instruction Type:Patient Education Patient Instructions Indication:Abnormal lung function test Start:19-Mar-2019 Instruction Type:Provider Instructions for Treatment How to access health informa tion online Indication:[facility] EX[facility] Start:30-Jan-2019 Instruction Type:Patient Education How to access health informa tion online - Detail Indication:[facility] EX[facility] Start:30-Jan-2019 Instruction Type:Patient Education Patient Instructions Indication:[facility] EXAM Start:30-Jan-2019 Instruction Type:Provider Instructions for Treatment How to access health informa tion online Indication:Elevated hemoglobin A1c Start:29-Oct-2018 Instruction Type:Patient Education How to access health informa tion online - Detail Indication:Elevated hemoglobin A1c Start:29-Oct-2018 Instruction Type:Patient Education Patient Instructions Indication:Elevated hemoglobin A1c Start:29-Oct-2018 Instruction Type:Provider Instructions for Treatment How to access health informa tion online Indication:Syncope Start:20-Jul-2018 Instruction Type:Patient Education How to access health informa tion online - Detail Indication:Syncope Start:20-Jul-2018 Instruction Type:Patient Education Patient Instructions Indication:Syncope Start:20-Jul-2018 Instruction Type:Provider Instructions for Treatment How to access health informa tion online Indication:Syncope Start:09-Jul-2018 Instruction Type:Patient Education How to access health informa tion online - Detail Indication:Syncope Start:09-Jul-2018 Instruction Type:Patient Education Patient Instructions Indication:Syncope Start:09-Jul-2018 Instruction Type:Provider Instructions for Treatment How to access health informa tion online Indication:Syncope Start:29-Jun-2018 Instruction Type:Patient Education How to access health informa tion online - Detail Indication:Syncope Start:29-Jun-2018 Instruction Type:Patient Education Patient Instructions Indication:Syncope Start:29-Jun-2018 Instruction Type:Provider Instructions for Treatment How to access health informa tion online Indication:Lymphocytosis Start:01-Jun-2018 Instruction Type:Patient Education How to access health informa tion online - Detail Indication:Lymphocytosis Start:01-Jun-2018 Instruction Type:Patient Education Patient Instructions Indication:Lymphocytosis Start:01-Jun-2018 Instruction Type:Provider Instructions for Treatment How to access health informa tion online Indication:Family history of malignant neoplasm of gastrointestinal tract (Renamed from Family history of cancer of digestive system) Start:31-Jan-2018 Instruction Type:Patient Education How to access health informa tion online - Detail Indication:Family history of malignant neoplasm of gastrointestinal tract (Renamed from Family history of cancer of digestive system) Start:31-Jan-2018 Instruction Type:Patient Education Patient Instructions Indication:Family history of malignant neoplasm of gastrointestinal tract (Renamed from Family history of cancer of digestive system) Start:31-Jan-2018 Instruction Type:Provider Instructions for Treatment How to access health informa tion online Indication:BMI 21.0-21.9, adult Start:27-Sep-2017 Instruction Type:Patient Education How to access health informa tion online - Detail Indication:BMI 21.0-21.9, adult Start:27-Sep-2017 Instruction Type:Patient Education Patient Instructions Indication:BMI 21.0-21.9, adult Start:27-Sep-2017 Instruction Type:Provider Instructions for Treatment How to access health informa tion online Indication:BMI 22.0-22.9, adult Start:26-May-2017 Instruction Type:Patient Education How to access health informa tion online - Detail Indication:BMI 22.0-22.9, adult Start:26-May-2017 Instruction Type:Patient Education Patient Instructions Indication:BMI 22.0-22.9, adult Start:26-May-2017 Instruction Type:Provider Instructions for Treatment How to access health informa tion online Indication:Current nonsmoker (Renamed from Current non-smoker) Start:18-Jan-2017 Instruction Type:Patient Education How to access health informa tion online - Detail Indication:Current nonsmoker (Renamed from Current non-smoker) Start:18-Jan-2017 Instruction Type:Patient Education Patient Instructions Indication:Current nonsmoker (Renamed from Current non-smoker) Start:18-Jan-2017 Instruction Type:Provider Instructions for Treatment How to access health informa tion online Indication:[facility] EX[facility] Start:14-Sep-2016 Instruction Type:Patient Education How to access health informa tion online - Detail Indication:[facility] EX[facility] Start:14-Sep-2016 Instruction Type:Patient Education Patient Instructions Indication:[facility] Start:14-Sep-2016 Instruction Type:Provider Instructions for Treatment How to access health informa tion online Indication:Osteoporosis Start:15-Apr-2016 Instruction Type:Patient Education How to access health informa tion online - Detail Indication:Osteoporosis Start:15-Apr-2016 Instruction Type:Patient Education Patient Instructions Indication:Osteoporosis Start:15-Apr-2016 Instruction Type:Provider Instructions for Treatment How to access health informa tion online Indication:[facility] Start:11-Sep-2015 Instruction Type:Patient Education How to access health informa tion online - Detail Indication:[facility] Start:11-Sep-2015 Instruction Type:Patient Education Patient Instructions Indication:[facility] Start:11-Sep-2015 Instruction Type:Provider Instructions for Treatment How to access health informa tion online Indication:Low Back Pain Start:17-Feb-2015 Instruction Type:Patient Education How to access health informa tion online - Detail Indication:Low Back Pain Start:17-Feb-2015 Instruction Type:Patient Education Patient Instructions Indication:Low Back Pain Start:17-Feb-2015 Instruction Type:Provider Instructions for Treatment Patient Instructions Indication:Encounter for Medicare annual wellness exam Start:27-Aug-2014 Instruction Type:Provider Instructions for Treatment How to access health informa tion online Indication:Encounter for Medicare annual wellness exam Start:27-Aug-2014 Instruction Type:Patient Education How to access health informa tion online - Detail Indication:Encounter for Medicare annual wellness exam Start:27-Aug-2014 Instruction Type:Patient Education Patient Instructions Indication:Headache Start:23-Apr-2014 Instruction Type:Provider Instructions for Treatment Patient Instructions Indication:Osteopenia Start:02-Aug-2013 Instruction Type:Provider Instructions for Treatment Patient Instructions Indication:Ultrasound scan abnormal Start:22-Mar-2013 Instruction Type:Provider Instructions for Treatment Patient Instructions Indication:Abdominal pain, acute, generalized Start:13-Feb-2013 Instruction Type:Provider Instructions for Treatment Patient Instructions Indication:Encounter for Medicare annual wellness exam Start:20-Aug-2012 Instruction Type:Provider Instructions for Treatment Patient Instructions Indication:Elevated blood-pressure reading without diagnosis of hypertension Start:11-Jul-2012 Instruction Type:Provider Instructions for Treatment Patient Instructions Indication:Osteopenia Start:11-Apr-2012 Instruction Type:Provider Instructions for Treatment Name Dates Details How to access health informa tion online Indication:Nonsmoker Start:14-Jan-2020 Instruction Type:Patient Education How to access health informa tion online - Detail Indication:Nonsmoker Start:14-Jan-2020 Instruction Type:Patient Education Patient Instructions Indication:Nonsmoker Start:14-Jan-2020 Instruction Type:Provider Instructions for Treatment How to access health informa tion online Indication:Lymphocytosis Start:18-Sep-2019 Instruction Type:Patient Education How to access health informa tion online - Detail Indication:Lymphocytosis Start:18-Sep-2019 Instruction Type:Patient Education Patient Instructions Indication:Lymphocytosis Start:18-Sep-2019 Instruction Type:Provider Instructions for Treatment Patient Instructions Indication:Elevated hemoglobin A1c Start:18-Jun-2019 Instruction Type:Provider Instructions for Treatment How to access health informa tion online Indication:Abnormal lung function test Start:19-Mar-2019 Instruction Type:Patient Education How to access health informa tion online - Detail Indication:Abnormal lung function test Start:19-Mar-2019 Instruction Type:Patient Education Patient Instructions Indication:Abnormal lung function test Start:19-Mar-2019 Instruction Type:Provider Instructions for Treatment How to access health informa tion online Indication:[facility] Start:30-Jan-2019 Instruction Type:Patient Education How to access health informa tion online - Detail Indication:[facility] Start:30-Jan-2019 Instruction Type:Patient Education Patient Instructions Indication:[facility] Start:30-Jan-2019 Instruction Type:Provider Instructions for Treatment How to access health informa tion online Indication:Elevated hemoglobin A1c Start:29-Oct-2018 Instruction Type:Patient Education How to access health informa tion online - Detail Indication:Elevated hemoglobin A1c Start:29-Oct-2018 Instruction Type:Patient Education Patient Instructions Indication:Elevated hemoglobin A1c Start:29-Oct-2018 Instruction Type:Provider Instructions for Treatment How to access health informa tion online Indication:Syncope Start:20-Jul-2018 Instruction Type:Patient Education How to access health informa tion online - Detail Indication:Syncope Start:20-Jul-2018 Instruction Type:Patient Education Patient Instructions Indication:Syncope Start:20-Jul-2018 Instruction Type:Provider Instructions for Treatment How to access health informa tion online Indication:Syncope Start:09-Jul-2018 Instruction Type:Patient Education How to access health informa tion online - Detail Indication:Syncope Start:09-Jul-2018 Instruction Type:Patient Education Patient Instructions Indication:Syncope Start:09-Jul-2018 Instruction Type:Provider Instructions for Treatment How to access health informa tion online Indication:Syncope Start:29-Jun-2018 Instruction Type:Patient Education How to access health informa tion online - Detail Indication:Syncope Start:29-Jun-2018 Instruction Type:Patient Education Patient Instructions Indication:Syncope Start:29-Jun-2018 Instruction Type:Provider Instructions for Treatment How to access health informa tion online Indication:Lymphocytosis Start:01-Jun-2018 Instruction Type:Patient Education How to access health informa tion online - Detail Indication:Lymphocytosis Start:01-Jun-2018 Instruction Type:Patient Education Patient Instructions Indication:Lymphocytosis Start:01-Jun-2018 Instruction Type:Provider Instructions for Treatment How to access health informa tion online Indication:Family history of malignant neoplasm of gastrointestinal tract (Renamed from Family history of cancer of digestive system) Start:31-Jan-2018 Instruction Type:Patient Education How to access health informa tion online - Detail Indication:Family history of malignant neoplasm of gastrointestinal tract (Renamed from Family history of cancer of digestive system) Start:31-Jan-2018 Instruction Type:Patient Education Patient Instructions Indication:Family history of malignant neoplasm of gastrointestinal tract (Renamed from Family history of cancer of digestive system) Start:31-Jan-2018 Instruction Type:Provider Instructions for Treatment How to access health informa tion online Indication:BMI 21.0-21.9, adult Start:27-Sep-2017 Instruction Type:Patient Education How to access health informa tion online - Detail Indication:BMI 21.0-21.9, adult Start:27-Sep-2017 Instruction Type:Patient Education Patient Instructions Indication:BMI 21.0-21.9, adult Start:27-Sep-2017 Instruction Type:Provider Instructions for Treatment How to access health informa tion online Indication:BMI 22.0-22.9, adult Start:26-May-2017 Instruction Type:Patient Education How to access health informa tion online - Detail Indication:BMI 22.0-22.9, adult Start:26-May-2017 Instruction Type:Patient Education Patient Instructions Indication:BMI 22.0-22.9, adult Start:26-May-2017 Instruction Type:Provider Instructions for Treatment How to access health informa tion online Indication:Current nonsmoker (Renamed from Current non-smoker) Start:18-Jan-2017 Instruction Type:Patient Education How to access health informa tion online - Detail Indication:Current nonsmoker (Renamed from Current non-smoker) Start:18-Jan-2017 Instruction Type:Patient Education Patient Instructions Indication:Current nonsmoker (Renamed from Current non-smoker) Start:18-Jan-2017 Instruction Type:Provider Instructions for Treatment How to access health informa tion online Indication:[facility] Start:14-Sep-2016 Instruction Type:Patient Education How to access health informa tion online - Detail Indication:[facility] Start:14-Sep-2016 Instruction Type:Patient Education Patient Instructions Indication:[facility] Start:14-Sep-2016 Instruction Type:Provider Instructions for Treatment How to access health informa tion online Indication:Osteoporosis Start:15-Apr-2016 Instruction Type:Patient Education How to access health informa tion online - Detail Indication:Osteoporosis Start:15-Apr-2016 Instruction Type:Patient Education Patient Instructions Indication:Osteoporosis Start:15-Apr-2016 Instruction Type:Provider Instructions for Treatment How to access health informa tion online Indication:[facility] Start:11-Sep-2015 Instruction Type:Patient Education How to access health informa tion online - Detail Indication:[facility] Start:11-Sep-2015 Instruction Type:Patient Education Patient Instructions Indication:[facility] Start:11-Sep-2015 Instruction Type:Provider Instructions for Treatment How to access health informa tion online Indication:Low Back Pain Start:17-Feb-2015 Instruction Type:Patient Education How to access health informa tion online - Detail Indication:Low Back Pain Start:17-Feb-2015 Instruction Type:Patient Education Patient Instructions Indication:Low Back Pain Start:17-Feb-2015 Instruction Type:Provider Instructions for Treatment Patient Instructions Indication:Encounter for Medicare annual wellness exam Start:27-Aug-2014 Instruction Type:Provider Instructions for Treatment How to access health informa tion online Indication:Encounter for Medicare annual wellness exam Start:27-Aug-2014 Instruction Type:Patient Education How to access health informa tion online - Detail Indication:Encounter for Medicare annual wellness exam Start:27-Aug-2014 Instruction Type:Patient Education Patient Instructions Indication:Headache Start:23-Apr-2014 Instruction Type:Provider Instructions for Treatment Patient Instructions Indication:Osteopenia Start:02-Aug-2013 Instruction Type:Provider Instructions for Treatment Patient Instructions Indication:Ultrasound scan abnormal Start:22-Mar-2013 Instruction Type:Provider Instructions for Treatment Patient Instructions Indication:Abdominal pain, acute, generalized Start:13-Feb-2013 Instruction Type:Provider Instructions for Treatment Patient Instructions Indication:Encounter for Medicare annual wellness exam Start:20-Aug-2012 Instruction Type:Provider Instructions for Treatment Patient Instructions Indication:Elevated blood-pressure reading without diagnosis of hypertension Start:11-Jul-2012 Instruction Type:Provider Instructions for Treatment Patient Instructions Indication:Osteopenia Start:11-Apr-2012 Instruction Type:Provider Instructions for Treatment Name Dates Details How to access health informa tion online Indication:Nonsmoker Start:14-Jan-2020 Instruction Type:Patient Education How to access health informa tion online - Detail Indication:Nonsmoker Start:14-Jan-2020 Instruction Type:Patient Education Patient Instructions Indication:Nonsmoker Start:14-Jan-2020 Instruction Type:Provider Instructions for Treatment How to access health informa tion online Indication:Lymphocytosis Start:18-Sep-2019 Instruction Type:Patient Education How to access health informa tion online - Detail Indication:Lymphocytosis Start:18-Sep-2019 Instruction Type:Patient Education Patient Instructions Indication:Lymphocytosis Start:18-Sep-2019 Instruction Type:Provider Instructions for Treatment Patient Instructions Indication:Elevated hemoglobin A1c Start:18-Jun-2019 Instruction Type:Provider Instructions for Treatment How to access health informa tion online Indication:Abnormal lung function test Start:19-Mar-2019 Instruction Type:Patient Education How to access health informa tion online - Detail Indication:Abnormal lung function test Start:19-Mar-2019 Instruction Type:Patient Education Patient Instructions Indication:Abnormal lung function test Start:19-Mar-2019 Instruction Type:Provider Instructions for Treatment How to access health informa tion online Indication:[facility] EX[facility] Start:30-Jan-2019 Instruction Type:Patient Education How to access health informa tion online - Detail Indication:[facility] Start:30-Jan-2019 Instruction Type:Patient Education Patient Instructions Indication:[facility] Start:30-Jan-2019 Instruction Type:Provider Instructions for Treatment How to access health informa tion online Indication:Elevated hemoglobin A1c Start:29-Oct-2018 Instruction Type:Patient Education How to access health informa tion online - Detail Indication:Elevated hemoglobin A1c Start:29-Oct-2018 Instruction Type:Patient Education Patient Instructions Indication:Elevated hemoglobin A1c Start:29-Oct-2018 Instruction Type:Provider Instructions for Treatment How to access health informa tion online Indication:Syncope Start:20-Jul-2018 Instruction Type:Patient Education How to access health informa tion online - Detail Indication:Syncope Start:20-Jul-2018 Instruction Type:Patient Education Patient Instructions Indication:Syncope Start:20-Jul-2018 Instruction Type:Provider Instructions for Treatment How to access health informa tion online Indication:Syncope Start:09-Jul-2018 Instruction Type:Patient Education How to access health informa tion online - Detail Indication:Syncope Start:09-Jul-2018 Instruction Type:Patient Education Patient Instructions Indication:Syncope Start:09-Jul-2018 Instruction Type:Provider Instructions for Treatment How to access health informa tion online Indication:Syncope Start:29-Jun-2018 Instruction Type:Patient Education How to access health informa tion online - Detail Indication:Syncope Start:29-Jun-2018 Instruction Type:Patient Education Patient Instructions Indication:Syncope Start:29-Jun-2018 Instruction Type:Provider Instructions for Treatment How to access health informa tion online Indication:Lymphocytosis Start:01-Jun-2018 Instruction Type:Patient Education How to access health informa tion online - Detail Indication:Lymphocytosis Start:01-Jun-2018 Instruction Type:Patient Education Patient Instructions Indication:Lymphocytosis Start:01-Jun-2018 Instruction Type:Provider Instructions for Treatment How to access health informa tion online Indication:Family history of malignant neoplasm of gastrointestinal tract (Renamed from Family history of cancer of digestive system) Start:31-Jan-2018 Instruction Type:Patient Education How to access health informa tion online - Detail Indication:Family history of malignant neoplasm of gastrointestinal tract (Renamed from Family history of cancer of digestive system) Start:31-Jan-2018 Instruction Type:Patient Education Patient Instructions Indication:Family history of malignant neoplasm of gastrointestinal tract (Renamed from Family history of cancer of digestive system) Start:31-Jan-2018 Instruction Type:Provider Instructions for Treatment How to access health informa tion online Indication:BMI 21.0-21.9, adult Start:27-Sep-2017 Instruction Type:Patient Education How to access health informa tion online - Detail Indication:BMI 21.0-21.9, adult Start:27-Sep-2017 Instruction Type:Patient Education Patient Instructions Indication:BMI 21.0-21.9, adult Start:27-Sep-2017 Instruction Type:Provider Instructions for Treatment How to access health informa tion online Indication:BMI 22.0-22.9, adult Start:26-May-2017 Instruction Type:Patient Education How to access health informa tion online - Detail Indication:BMI 22.0-22.9, adult Start:26-May-2017 Instruction Type:Patient Education Patient Instructions Indication:BMI 22.0-22.9, adult Start:26-May-2017 Instruction Type:Provider Instructions for Treatment How to access health informa tion online Indication:Current nonsmoker (Renamed from Current non-smoker) Start:18-Jan-2017 Instruction Type:Patient Education How to access health informa tion online - Detail Indication:Current nonsmoker (Renamed from Current non-smoker) Start:18-Jan-2017 Instruction Type:Patient Education Patient Instructions Indication:Current nonsmoker (Renamed from Current non-smoker) Start:18-Jan-2017 Instruction Type:Provider Instructions for Treatment How to access health informa tion online Indication:[facility] Start:14-Sep-2016 Instruction Type:Patient Education How to access health informa tion online - Detail Indication[facility] Start:14-Sep-2016 Instruction Type:Patient Education Patient Instructions Indication[facility] Start:14-Sep-2016 Instruction Type:Provider Instructions for Treatment How to access health informa tion online Indication:Osteoporosis Start:15-Apr-2016 Instruction Type:Patient Education How to access health informa tion online - Detail Indication:Osteoporosis Start:15-Apr-2016 Instruction Type:Patient Education Patient Instructions Indication:Osteoporosis Start:15-Apr-2016 Instruction Type:Provider Instructions for Treatment How to access health informa tion online Indication[facility] Start:11-Sep-2015 Instruction Type:Patient Education How to access health informa tion online - Detail Indication:[facility] EXAM Start:11-Sep-2015 Instruction Type:Patient Education Patient Instructions Indication:[facility] Start:11-Sep-2015 Instruction Type:Provider Instructions for Treatment How to access health informa tion online Indication:Low Back Pain Start:17-Feb-2015 Instruction Type:Patient Education How to access health informa tion online - Detail Indication:Low Back Pain Start:17-Feb-2015 Instruction Type:Patient Education Patient Instructions Indication:Low Back Pain Start:17-Feb-2015 Instruction Type:Provider Instructions for Treatment Patient Instructions Indication:Encounter for Medicare annual wellness exam Start:27-Aug-2014 Instruction Type:Provider Instructions for Treatment How to access health informa tion online Indication:Encounter for Medicare annual wellness exam Start:27-Aug-2014 Instruction Type:Patient Education How to access health informa tion online - Detail Indication:Encounter for Medicare annual wellness exam Start:27-Aug-2014 Instruction Type:Patient Education Patient Instructions Indication:Headache Start:23-Apr-2014 Instruction Type:Provider Instructions for Treatment Patient Instructions Indication:Osteopenia Start:02-Aug-2013 Instruction Type:Provider Instructions for Treatment Patient Instructions Indication:Ultrasound scan abnormal Start:22-Mar-2013 Instruction Type:Provider Instructions for Treatment Patient Instructions Indication:Abdominal pain, acute, generalized Start:13-Feb-2013 Instruction Type:Provider Instructions for Treatment Patient Instructions Indication:Encounter for Medicare annual wellness exam Start:20-Aug-2012 Instruction Type:Provider Instructions for Treatment Patient Instructions Indication:Elevated blood-pressure reading without diagnosis of hypertension Start:11-Jul-2012 Instruction Type:Provider Instructions for Treatment Patient Instructions Indication:Osteopenia Start:11-Apr-2012 Instruction Type:Provider Instructions for Treatment Name Dates Details Patient Instructions Indication:Abdominal pain Start:09-Mar-2020 Instruction Type:Provider Instructions for Treatment How to Access Health Informa tion Online using Patient Portal and [employer] Apps Indication:Abdominal pain Start:09-Mar-2020 Instruction Type:Patient Education How to access health informa tion online Indication:Nonsmoker Start:14-Jan-2020 Instruction Type:Patient Education How to access health informa tion online - Detail Indication:Nonsmoker Start:14-Jan-2020 Instruction Type:Patient Education Patient Instructions Indication:Nonsmoker Start:14-Jan-2020 Instruction Type:Provider Instructions for Treatment How to access health informa tion online Indication:Lymphocytosis Start:18-Sep-2019 Instruction Type:Patient Education How to access health informa tion online - Detail Indication:Lymphocytosis Start:18-Sep-2019 Instruction Type:Patient Education Patient Instructions Indication:Lymphocytosis Start:18-Sep-2019 Instruction Type:Provider Instructions for Treatment Patient Instructions Indication:Elevated hemoglobin A1c Start:18-Jun-2019 Instruction Type:Provider Instructions for Treatment How to access health informa tion online Indication:Abnormal lung function test Start:19-Mar-2019 Instruction Type:Patient Education How to access health informa tion online - Detail Indication:Abnormal lung function test Start:19-Mar-2019 Instruction Type:Patient Education Patient Instructions Indication:Abnormal lung function test Start:19-Mar-2019 Instruction Type:Provider Instructions for Treatment How to access health informa tion online Indication:[facility] EX[facility] Start:30-Jan-2019 Instruction Type:Patient Education How to access health informa tion online - Detail Indication:[facility] EX[facility] Start:30-Jan-2019 Instruction Type:Patient Education Patient Instructions Indication:[facility] EX[facility] Start:30-Jan-2019 Instruction Type:Provider Instructions for Treatment How to access health informa tion online Indication:Elevated hemoglobin A1c Start:29-Oct-2018 Instruction Type:Patient Education How to access health informa tion online - Detail Indication:Elevated hemoglobin A1c Start:29-Oct-2018 Instruction Type:Patient Education Patient Instructions Indication:Elevated hemoglobin A1c Start:29-Oct-2018 Instruction Type:Provider Instructions for Treatment How to access health informa tion online Indication:Syncope Start:20-Jul-2018 Instruction Type:Patient Education How to access health informa tion online - Detail Indication:Syncope Start:20-Jul-2018 Instruction Type:Patient Education Patient Instructions Indication:Syncope Start:20-Jul-2018 Instruction Type:Provider Instructions for Treatment How to access health informa tion online Indication:Syncope Start:09-Jul-2018 Instruction Type:Patient Education How to access health informa tion online - Detail Indication:Syncope Start:09-Jul-2018 Instruction Type:Patient Education Patient Instructions Indication:Syncope Start:09-Jul-2018 Instruction Type:Provider Instructions for Treatment How to access health informa tion online Indication:Syncope Start:29-Jun-2018 Instruction Type:Patient Education How to access health informa tion online - Detail Indication:Syncope Start:29-Jun-2018 Instruction Type:Patient Education Patient Instructions Indication:Syncope Start:29-Jun-2018 Instruction Type:Provider Instructions for Treatment How to access health informa tion online Indication:Lymphocytosis Start:01-Jun-2018 Instruction Type:Patient Education How to access health informa tion online - Detail Indication:Lymphocytosis Start:01-Jun-2018 Instruction Type:Patient Education Patient Instructions Indication:Lymphocytosis Start:01-Jun-2018 Instruction Type:Provider Instructions for Treatment How to access health informa tion online Indication:Family history of malignant neoplasm of gastrointestinal tract (Renamed from Family history of cancer of digestive system) Start:31-Jan-2018 Instruction Type:Patient Education How to access health informa tion online - Detail Indication:Family history of malignant neoplasm of gastrointestinal tract (Renamed from Family history of cancer of digestive system) Start:31-Jan-2018 Instruction Type:Patient Education Patient Instructions Indication:Family history of malignant neoplasm of gastrointestinal tract (Renamed from Family history of cancer of digestive system) Start:31-Jan-2018 Instruction Type:Provider Instructions for Treatment How to access health informa tion online Indication:BMI 21.0-21.9, adult Start:27-Sep-2017 Instruction Type:Patient Education How to access health informa tion online - Detail Indication:BMI 21.0-21.9, adult Start:27-Sep-2017 Instruction Type:Patient Education Patient Instructions Indication:BMI 21.0-21.9, adult Start:27-Sep-2017 Instruction Type:Provider Instructions for Treatment How to access health informa tion online Indication:BMI 22.0-22.9, adult Start:26-May-2017 Instruction Type:Patient Education How to access health informa tion online - Detail Indication:BMI 22.0-22.9, adult Start:26-May-2017 Instruction Type:Patient Education Patient Instructions Indication:BMI 22.0-22.9, adult Start:26-May-2017 Instruction Type:Provider Instructions for Treatment How to access health informa tion online Indication:Current nonsmoker (Renamed from Current non-smoker) Start:18-Jan-2017 Instruction Type:Patient Education How to access health informa tion online - Detail Indication:Current nonsmoker (Renamed from Current non-smoker) Start:18-Jan-2017 Instruction Type:Patient Education Patient Instructions Indication:Current nonsmoker (Renamed from Current non-smoker) Start:18-Jan-2017 Instruction Type:Provider Instructions for Treatment How to access health informa tion online Indication:[facility] EX[facility] Start:14-Sep-2016 Instruction Type:Patient Education How to access health informa tion online - Detail Indication:[facility] Start:14-Sep-2016 Instruction Type:Patient Education Patient Instructions Indication:[facility] Start:14-Sep-2016 Instruction Type:Provider Instructions for Treatment How to access health informa tion online Indication:Osteoporosis Start:15-Apr-2016 Instruction Type:Patient Education How to access health informa tion online - Detail Indication:Osteoporosis Start:15-Apr-2016 Instruction Type:Patient Education Patient Instructions Indication:Osteoporosis Start:15-Apr-2016 Instruction Type:Provider Instructions for Treatment How to access health informa tion online Indication:[facility] Start:11-Sep-2015 Instruction Type:Patient Education How to access health informa tion online - Detail Indication:[facility] Start:11-Sep-2015 Instruction Type:Patient Education Patient Instructions Indication:[facility] Start:11-Sep-2015 Instruction Type:Provider Instructions for Treatment How to access health informa tion online Indication:Low Back Pain Start:17-Feb-2015 Instruction Type:Patient Education How to access health informa tion online - Detail Indication:Low Back Pain Start:17-Feb-2015 Instruction Type:Patient Education Patient Instructions Indication:Low Back Pain Start:17-Feb-2015 Instruction Type:Provider Instructions for Treatment Patient Instructions Indication:Encounter for Medicare annual wellness exam Start:27-Aug-2014 Instruction Type:Provider Instructions for Treatment How to access health informa tion online Indication:Encounter for Medicare annual wellness exam Start:27-Aug-2014 Instruction Type:Patient Education How to access health informa tion online - Detail Indication:Encounter for Medicare annual wellness exam Start:27-Aug-2014 Instruction Type:Patient Education Patient Instructions Indication:Headache Start:23-Apr-2014 Instruction Type:Provider Instructions for Treatment Patient Instructions Indication:Osteopenia Start:02-Aug-2013 Instruction Type:Provider Instructions for Treatment Patient Instructions Indication:Ultrasound scan abnormal Start:22-Mar-2013 Instruction Type:Provider Instructions for Treatment Patient Instructions Indication:Abdominal pain, acute, generalized Start:13-Feb-2013 Instruction Type:Provider Instructions for Treatment Patient Instructions Indication:Encounter for Medicare annual wellness exam Start:20-Aug-2012 Instruction Type:Provider Instructions for Treatment Patient Instructions Indication:Elevated blood-pressure reading without diagnosis of hypertension Start:11-Jul-2012 Instruction Type:Provider Instructions for Treatment Patient Instructions Indication:Osteopenia Start:11-Apr-2012 Instruction Type:Provider Instructions for Treatment Name Dates Details Patient Instructions Indication:Abdominal pain Start:09-Mar-2020 Instruction Type:Provider Instructions for Treatment How to Access Health Informa tion Online using Patient Portal and [employer] Apps Indication:Abdominal pain Start:09-Mar-2020 Instruction Type:Patient Education How to access health informa tion online Indication:Nonsmoker Start:14-Jan-2020 Instruction Type:Patient Education How to access health informa tion online - Detail Indication:Nonsmoker Start:14-Jan-2020 Instruction Type:Patient Education Patient Instructions Indication:Nonsmoker Start:14-Jan-2020 Instruction Type:Provider Instructions for Treatment How to access health informa tion online Indication:Lymphocytosis Start:18-Sep-2019 Instruction Type:Patient Education How to access health informa tion online - Detail Indication:Lymphocytosis Start:18-Sep-2019 Instruction Type:Patient Education Patient Instructions Indication:Lymphocytosis Start:18-Sep-2019 Instruction Type:Provider Instructions for Treatment Patient Instructions Indication:Elevated hemoglobin A1c Start:18-Jun-2019 Instruction Type:Provider Instructions for Treatment How to access health informa tion online Indication:Abnormal lung function test Start:19-Mar-2019 Instruction Type:Patient Education How to access health informa tion online - Detail Indication:Abnormal lung function test Start:19-Mar-2019 Instruction Type:Patient Education Patient Instructions Indication:Abnormal lung function test Start:19-Mar-2019 Instruction Type:Provider Instructions for Treatment How to access health informa tion online Indication:[facility] Start:30-Jan-2019 Instruction Type:Patient Education How to access health informa tion online - Detail Indication:[facility] Start:30-Jan-2019 Instruction Type:Patient Education Patient Instructions Indication:[facility] Start:30-Jan-2019 Instruction Type:Provider Instructions for Treatment How to access health informa tion online Indication:Elevated hemoglobin A1c Start:29-Oct-2018 Instruction Type:Patient Education How to access health informa tion online - Detail Indication:Elevated hemoglobin A1c Start:29-Oct-2018 Instruction Type:Patient Education Patient Instructions Indication:Elevated hemoglobin A1c Start:29-Oct-2018 Instruction Type:Provider Instructions for Treatment How to access health informa tion online Indication:Syncope Start:20-Jul-2018 Instruction Type:Patient Education How to access health informa tion online - Detail Indication:Syncope Start:20-Jul-2018 Instruction Type:Patient Education Patient Instructions Indication:Syncope Start:20-Jul-2018 Instruction Type:Provider Instructions for Treatment How to access health informa tion online Indication:Syncope Start:09-Jul-2018 Instruction Type:Patient Education How to access health informa tion online - Detail Indication:Syncope Start:09-Jul-2018 Instruction Type:Patient Education Patient Instructions Indication:Syncope Start:09-Jul-2018 Instruction Type:Provider Instructions for Treatment How to access health informa tion online Indication:Syncope Start:29-Jun-2018 Instruction Type:Patient Education How to access health informa tion online - Detail Indication:Syncope Start:29-Jun-2018 Instruction Type:Patient Education Patient Instructions Indication:Syncope Start:29-Jun-2018 Instruction Type:Provider Instructions for Treatment How to access health informa tion online Indication:Lymphocytosis Start:01-Jun-2018 Instruction Type:Patient Education How to access health informa tion online - Detail Indication:Lymphocytosis Start:01-Jun-2018 Instruction Type:Patient Education Patient Instructions Indication:Lymphocytosis Start:01-Jun-2018 Instruction Type:Provider Instructions for Treatment How to access health informa tion online Indication:Family history of malignant neoplasm of gastrointestinal tract (Renamed from Family history of cancer of digestive system) Start:31-Jan-2018 Instruction Type:Patient Education How to access health informa tion online - Detail Indication:Family history of malignant neoplasm of gastrointestinal tract (Renamed from Family history of cancer of digestive system) Start:31-Jan-2018 Instruction Type:Patient Education Patient Instructions Indication:Family history of malignant neoplasm of gastrointestinal tract (Renamed from Family history of cancer of digestive system) Start:31-Jan-2018 Instruction Type:Provider Instructions for Treatment How to access health informa tion online Indication:BMI 21.0-21.9, adult Start:27-Sep-2017 Instruction Type:Patient Education How to access health informa tion online - Detail Indication:BMI 21.0-21.9, adult Start:27-Sep-2017 Instruction Type:Patient Education Patient Instructions Indication:BMI 21.0-21.9, adult Start:27-Sep-2017 Instruction Type:Provider Instructions for Treatment How to access health informa tion online Indication:BMI 22.0-22.9, adult Start:26-May-2017 Instruction Type:Patient Education How to access health informa tion online - Detail Indication:BMI 22.0-22.9, adult Start:26-May-2017 Instruction Type:Patient Education Patient Instructions Indication:BMI 22.0-22.9, adult Start:26-May-2017 Instruction Type:Provider Instructions for Treatment How to access health informa tion online Indication:Current nonsmoker (Renamed from Current non-smoker) Start:18-Jan-2017 Instruction Type:Patient Education How to access health informa tion online - Detail Indication:Current nonsmoker (Renamed from Current non-smoker) Start:18-Jan-2017 Instruction Type:Patient Education Patient Instructions Indication:Current nonsmoker (Renamed from Current non-smoker) Start:18-Jan-2017 Instruction Type:Provider Instructions for Treatment How to access health informa tion online Indication:[facility] Start:14-Sep-2016 Instruction Type:Patient Education How to access health informa tion online - Detail Indication:[facility] Start:14-Sep-2016 Instruction Type:Patient Education Patient Instructions Indication:[facility] Start:14-Sep-2016 Instruction Type:Provider Instructions for Treatment How to access health informa tion online Indication:Osteoporosis Start:15-Apr-2016 Instruction Type:Patient Education How to access health informa tion online - Detail Indication:Osteoporosis Start:15-Apr-2016 Instruction Type:Patient Education Patient Instructions Indication:Osteoporosis Start:15-Apr-2016 Instruction Type:Provider Instructions for Treatment How to access health informa tion online Indication:[facility] Start:11-Sep-2015 Instruction Type:Patient Education How to access health informa tion online - Detail Indication:[facility] Start:11-Sep-2015 Instruction Type:Patient Education Patient Instructions Indication:[facility] Start:11-Sep-2015 Instruction Type:Provider Instructions for Treatment How to access health informa tion online Indication:Low Back Pain Start:17-Feb-2015 Instruction Type:Patient Education How to access health informa tion online - Detail Indication:Low Back Pain Start:17-Feb-2015 Instruction Type:Patient Education Patient Instructions Indication:Low Back Pain Start:17-Feb-2015 Instruction Type:Provider Instructions for Treatment Patient Instructions Indication:Encounter for Medicare annual wellness exam Start:27-Aug-2014 Instruction Type:Provider Instructions for Treatment How to access health informa tion online Indication:Encounter for Medicare annual wellness exam Start:27-Aug-2014 Instruction Type:Patient Education How to access health informa tion online - Detail Indication:Encounter for Medicare annual wellness exam Start:27-Aug-2014 Instruction Type:Patient Education Patient Instructions Indication:Headache Start:23-Apr-2014 Instruction Type:Provider Instructions for Treatment Patient Instructions Indication:Osteopenia Start:02-Aug-2013 Instruction Type:Provider Instructions for Treatment Patient Instructions Indication:Ultrasound scan abnormal Start:22-Mar-2013 Instruction Type:Provider Instructions for Treatment Patient Instructions Indication:Abdominal pain, acute, generalized Start:13-Feb-2013 Instruction Type:Provider Instructions for Treatment Patient Instructions Indication:Encounter for Medicare annual wellness exam Start:20-Aug-2012 Instruction Type:Provider Instructions for Treatment Patient Instructions Indication:Elevated blood-pressure reading without diagnosis of hypertension Start:11-Jul-2012 Instruction Type:Provider Instructions for Treatment Patient Instructions Indication:Osteopenia Start:11-Apr-2012 Instruction Type:Provider Instructions for Treatment Name Dates Details Patient Instructions Indication:Abdominal pain Start:09-Mar-2020 Instruction Type:Provider Instructions for Treatment How to Access Health Informa tion Online using Patient Portal and [employer] Apps Indication:Abdominal pain Start:09-Mar-2020 Instruction Type:Patient Education How to access health informa tion online Indication:Nonsmoker Start:14-Jan-2020 Instruction Type:Patient Education How to access health informa tion online - Detail Indication:Nonsmoker Start:14-Jan-2020 Instruction Type:Patient Education Patient Instructions Indication:Nonsmoker Start:14-Jan-2020 Instruction Type:Provider Instructions for Treatment How to access health informa tion online Indication:Lymphocytosis Start:18-Sep-2019 Instruction Type:Patient Education How to access health informa tion online - Detail Indication:Lymphocytosis Start:18-Sep-2019 Instruction Type:Patient Education Patient Instructions Indication:Lymphocytosis Start:18-Sep-2019 Instruction Type:Provider Instructions for Treatment Patient Instructions Indication:Elevated hemoglobin A1c Start:18-Jun-2019 Instruction Type:Provider Instructions for Treatment How to access health informa tion online Indication:Abnormal lung function test Start:19-Mar-2019 Instruction Type:Patient Education How to access health informa tion online - Detail Indication:Abnormal lung function test Start:19-Mar-2019 Instruction Type:Patient Education Patient Instructions Indication:Abnormal lung function test Start:19-Mar-2019 Instruction Type:Provider Instructions for Treatment How to access health informa tion online Indication:[facility] Start:30-Jan-2019 Instruction Type:Patient Education How to access health informa tion online - Detail Indication:[facility] Start:30-Jan-2019 Instruction Type:Patient Education Patient Instructions Indication:[facility] Start:30-Jan-2019 Instruction Type:Provider Instructions for Treatment How to access health informa tion online Indication:Elevated hemoglobin A1c Start:29-Oct-2018 Instruction Type:Patient Education How to access health informa tion online - Detail Indication:Elevated hemoglobin A1c Start:29-Oct-2018 Instruction Type:Patient Education Patient Instructions Indication:Elevated hemoglobin A1c Start:29-Oct-2018 Instruction Type:Provider Instructions for Treatment How to access health informa tion online Indication:Syncope Start:20-Jul-2018 Instruction Type:Patient Education How to access health informa tion online - Detail Indication:Syncope Start:20-Jul-2018 Instruction Type:Patient Education Patient Instructions Indication:Syncope Start:20-Jul-2018 Instruction Type:Provider Instructions for Treatment How to access health informa tion online Indication:Syncope Start:09-Jul-2018 Instruction Type:Patient Education How to access health informa tion online - Detail Indication:Syncope Start:09-Jul-2018 Instruction Type:Patient Education Patient Instructions Indication:Syncope Start:09-Jul-2018 Instruction Type:Provider Instructions for Treatment How to access health informa tion online Indication:Syncope Start:29-Jun-2018 Instruction Type:Patient Education How to access health informa tion online - Detail Indication:Syncope Start:29-Jun-2018 Instruction Type:Patient Education Patient Instructions Indication:Syncope Start:29-Jun-2018 Instruction Type:Provider Instructions for Treatment How to access health informa tion online Indication:Lymphocytosis Start:01-Jun-2018 Instruction Type:Patient Education How to access health informa tion online - Detail Indication:Lymphocytosis Start:01-Jun-2018 Instruction Type:Patient Education Patient Instructions Indication:Lymphocytosis Start:01-Jun-2018 Instruction Type:Provider Instructions for Treatment How to access health informa tion online Indication:Family history of malignant neoplasm of gastrointestinal tract (Renamed from Family history of cancer of digestive system) Start:31-Jan-2018 Instruction Type:Patient Education How to access health informa tion online - Detail Indication:Family history of malignant neoplasm of gastrointestinal tract (Renamed from Family history of cancer of digestive system) Start:31-Jan-2018 Instruction Type:Patient Education Patient Instructions Indication:Family history of malignant neoplasm of gastrointestinal tract (Renamed from Family history of cancer of digestive system) Start:31-Jan-2018 Instruction Type:Provider Instructions for Treatment How to access health informa tion online Indication:BMI 21.0-21.9, adult Start:27-Sep-2017 Instruction Type:Patient Education How to access health informa tion online - Detail Indication:BMI 21.0-21.9, adult Start:27-Sep-2017 Instruction Type:Patient Education Patient Instructions Indication:BMI 21.0-21.9, adult Start:27-Sep-2017 Instruction Type:Provider Instructions for Treatment How to access health informa tion online Indication:BMI 22.0-22.9, adult Start:26-May-2017 Instruction Type:Patient Education How to access health informa tion online - Detail Indication:BMI 22.0-22.9, adult Start:26-May-2017 Instruction Type:Patient Education Patient Instructions Indication:BMI 22.0-22.9, adult Start:26-May-2017 Instruction Type:Provider Instructions for Treatment How to access health informa tion online Indication:Current nonsmoker (Renamed from Current non-smoker) Start:18-Jan-2017 Instruction Type:Patient Education How to access health informa tion online - Detail Indication:Current nonsmoker (Renamed from Current non-smoker) Start:18-Jan-2017 Instruction Type:Patient Education Patient Instructions Indication:Current nonsmoker (Renamed from Current non-smoker) Start:18-Jan-2017 Instruction Type:Provider Instructions for Treatment How to access health informa tion online Indication:[facility] Start:14-Sep-2016 Instruction Type:Patient Education How to access health informa tion online - Detail Indication:[facility] Start:14-Sep-2016 Instruction Type:Patient Education Patient Instructions Indication:[facility] Start:14-Sep-2016 Instruction Type:Provider Instructions for Treatment How to access health informa tion online Indication:Osteoporosis Start:15-Apr-2016 Instruction Type:Patient Education How to access health informa tion online - Detail Indication:Osteoporosis Start:15-Apr-2016 Instruction Type:Patient Education Patient Instructions Indication:Osteoporosis Start:15-Apr-2016 Instruction Type:Provider Instructions for Treatment How to access health informa tion online Indication:[facility] Start:11-Sep-2015 Instruction Type:Patient Education How to access health informa tion online - Detail Indication:[facility] Start:11-Sep-2015 Instruction Type:Patient Education Patient Instructions Indication:[facility] Start:11-Sep-2015 Instruction Type:Provider Instructions for Treatment How to access health informa tion online Indication:Low Back Pain Start:17-Feb-2015 Instruction Type:Patient Education How to access health informa tion online - Detail Indication:Low Back Pain Start:17-Feb-2015 Instruction Type:Patient Education Patient Instructions Indication:Low Back Pain Start:17-Feb-2015 Instruction Type:Provider Instructions for Treatment Patient Instructions Indication:Encounter for Medicare annual wellness exam Start:27-Aug-2014 Instruction Type:Provider Instructions for Treatment How to access health informa tion online Indication:Encounter for Medicare annual wellness exam Start:27-Aug-2014 Instruction Type:Patient Education How to access health informa tion online - Detail Indication:Encounter for Medicare annual wellness exam Start:27-Aug-2014 Instruction Type:Patient Education Patient Instructions Indication:Headache Start:23-Apr-2014 Instruction Type:Provider Instructions for Treatment Patient Instructions Indication:Osteopenia Start:02-Aug-2013 Instruction Type:Provider Instructions for Treatment Patient Instructions Indication:Ultrasound scan abnormal Start:22-Mar-2013 Instruction Type:Provider Instructions for Treatment Patient Instructions Indication:Abdominal pain, acute, generalized Start:13-Feb-2013 Instruction Type:Provider Instructions for Treatment Patient Instructions Indication:Encounter for Medicare annual wellness exam Start:20-Aug-2012 Instruction Type:Provider Instructions for Treatment Patient Instructions Indication:Elevated blood-pressure reading without diagnosis of hypertension Start:11-Jul-2012 Instruction Type:Provider Instructions for Treatment Patient Instructions Indication:Osteopenia Start:11-Apr-2012 Instruction Type:Provider Instructions for Treatment Name Dates Details Patient Instructions Indication:Abdominal pain Start:09-Mar-2020 Instruction Type:Provider Instructions for Treatment How to Access Health Informa tion Online using Patient Portal and [employer] Apps Indication:Abdominal pain Start:09-Mar-2020 Instruction Type:Patient Education How to access health informa tion online Indication:Nonsmoker Start:14-Jan-2020 Instruction Type:Patient Education How to access health informa tion online - Detail Indication:Nonsmoker Start:14-Jan-2020 Instruction Type:Patient Education Patient Instructions Indication:Nonsmoker Start:14-Jan-2020 Instruction Type:Provider Instructions for Treatment How to access health informa tion online Indication:Lymphocytosis Start:18-Sep-2019 Instruction Type:Patient Education How to access health informa tion online - Detail Indication:Lymphocytosis Start:18-Sep-2019 Instruction Type:Patient Education Patient Instructions Indication:Lymphocytosis Start:18-Sep-2019 Instruction Type:Provider Instructions for Treatment Patient Instructions Indication:Elevated hemoglobin A1c Start:18-Jun-2019 Instruction Type:Provider Instructions for Treatment How to access health informa tion online Indication:Abnormal lung function test Start:19-Mar-2019 Instruction Type:Patient Education How to access health informa tion online - Detail Indication:Abnormal lung function test Start:19-Mar-2019 Instruction Type:Patient Education Patient Instructions Indication:Abnormal lung function test Start:19-Mar-2019 Instruction Type:Provider Instructions for Treatment How to access health informa tion online Indication:[facility] Start:30-Jan-2019 Instruction Type:Patient Education How to access health informa tion online - Detail Indication:[facility] Start:30-Jan-2019 Instruction Type:Patient Education Patient Instructions Indication:[facility] Start:30-Jan-2019 Instruction Type:Provider Instructions for Treatment How to access health informa tion online Indication:Elevated hemoglobin A1c Start:29-Oct-2018 Instruction Type:Patient Education How to access health informa tion online - Detail Indication:Elevated hemoglobin A1c Start:29-Oct-2018 Instruction Type:Patient Education Patient Instructions Indication:Elevated hemoglobin A1c Start:29-Oct-2018 Instruction Type:Provider Instructions for Treatment How to access health informa tion online Indication:Syncope Start:20-Jul-2018 Instruction Type:Patient Education How to access health informa tion online - Detail Indication:Syncope Start:20-Jul-2018 Instruction Type:Patient Education Patient Instructions Indication:Syncope Start:20-Jul-2018 Instruction Type:Provider Instructions for Treatment How to access health informa tion online Indication:Syncope Start:09-Jul-2018 Instruction Type:Patient Education How to access health informa tion online - Detail Indication:Syncope Start:09-Jul-2018 Instruction Type:Patient Education Patient Instructions Indication:Syncope Start:09-Jul-2018 Instruction Type:Provider Instructions for Treatment How to access health informa tion online Indication:Syncope Start:29-Jun-2018 Instruction Type:Patient Education How to access health informa tion online - Detail Indication:Syncope Start:29-Jun-2018 Instruction Type:Patient Education Patient Instructions Indication:Syncope Start:29-Jun-2018 Instruction Type:Provider Instructions for Treatment How to access health informa tion online Indication:Lymphocytosis Start:01-Jun-2018 Instruction Type:Patient Education How to access health informa tion online - Detail Indication:Lymphocytosis Start:01-Jun-2018 Instruction Type:Patient Education Patient Instructions Indication:Lymphocytosis Start:01-Jun-2018 Instruction Type:Provider Instructions for Treatment How to access health informa tion online Indication:Family history of malignant neoplasm of gastrointestinal tract (Renamed from Family history of cancer of digestive system) Start:31-Jan-2018 Instruction Type:Patient Education How to access health informa tion online - Detail Indication:Family history of malignant neoplasm of gastrointestinal tract (Renamed from Family history of cancer of digestive system) Start:31-Jan-2018 Instruction Type:Patient Education Patient Instructions Indication:Family history of malignant neoplasm of gastrointestinal tract (Renamed from Family history of cancer of digestive system) Start:31-Jan-2018 Instruction Type:Provider Instructions for Treatment How to access health informa tion online Indication:BMI 21.0-21.9, adult Start:27-Sep-2017 Instruction Type:Patient Education How to access health informa tion online - Detail Indication:BMI 21.0-21.9, adult Start:27-Sep-2017 Instruction Type:Patient Education Patient Instructions Indication:BMI 21.0-21.9, adult Start:27-Sep-2017 Instruction Type:Provider Instructions for Treatment How to access health informa tion online Indication:BMI 22.0-22.9, adult Start:26-May-2017 Instruction Type:Patient Education How to access health informa tion online - Detail Indication:BMI 22.0-22.9, adult Start:26-May-2017 Instruction Type:Patient Education Patient Instructions Indication:BMI 22.0-22.9, adult Start:26-May-2017 Instruction Type:Provider Instructions for Treatment How to access health informa tion online Indication:Current nonsmoker (Renamed from Current non-smoker) Start:18-Jan-2017 Instruction Type:Patient Education How to access health informa tion online - Detail Indication:Current nonsmoker (Renamed from Current non-smoker) Start:18-Jan-2017 Instruction Type:Patient Education Patient Instructions Indication:Current nonsmoker (Renamed from Current non-smoker) Start:18-Jan-2017 Instruction Type:Provider Instructions for Treatment How to access health informa tion online Indication:[facility] Start:14-Sep-2016 Instruction Type:Patient Education How to access health informa tion online - Detail Indication:[facility] Start:14-Sep-2016 Instruction Type:Patient Education Patient Instructions Indication:[facility] Start:14-Sep-2016 Instruction Type:Provider Instructions for Treatment How to access health informa tion online Indication:Osteoporosis Start:15-Apr-2016 Instruction Type:Patient Education How to access health informa tion online - Detail Indication:Osteoporosis Start:15-Apr-2016 Instruction Type:Patient Education Patient Instructions Indication:Osteoporosis Start:15-Apr-2016 Instruction Type:Provider Instructions for Treatment How to access health informa tion online Indication:[facility] Start:11-Sep-2015 Instruction Type:Patient Education How to access health informa tion online - Detail Indication:[facility] Start:11-Sep-2015 Instruction Type:Patient Education Patient Instructions Indication:[facility] Start:11-Sep-2015 Instruction Type:Provider Instructions for Treatment How to access health informa tion online Indication:Low Back Pain Start:17-Feb-2015 Instruction Type:Patient Education How to access health informa tion online - Detail Indication:Low Back Pain Start:17-Feb-2015 Instruction Type:Patient Education Patient Instructions Indication:Low Back Pain Start:17-Feb-2015 Instruction Type:Provider Instructions for Treatment Patient Instructions Indication:Encounter for Medicare annual wellness exam Start:27-Aug-2014 Instruction Type:Provider Instructions for Treatment How to access health informa tion online Indication:Encounter for Medicare annual wellness exam Start:27-Aug-2014 Instruction Type:Patient Education How to access health informa tion online - Detail Indication:Encounter for Medicare annual wellness exam Start:27-Aug-2014 Instruction Type:Patient Education Patient Instructions Indication:Headache Start:23-Apr-2014 Instruction Type:Provider Instructions for Treatment Patient Instructions Indication:Osteopenia Start:02-Aug-2013 Instruction Type:Provider Instructions for Treatment Patient Instructions Indication:Ultrasound scan abnormal Start:22-Mar-2013 Instruction Type:Provider Instructions for Treatment Patient Instructions Indication:Abdominal pain, acute, generalized Start:13-Feb-2013 Instruction Type:Provider Instructions for Treatment Patient Instructions Indication:Encounter for Medicare annual wellness exam Start:20-Aug-2012 Instruction Type:Provider Instructions for Treatment Patient Instructions Indication:Elevated blood-pressure reading without diagnosis of hypertension Start:11-Jul-2012 Instruction Type:Provider Instructions for Treatment Patient Instructions Indication:Osteopenia Start:11-Apr-2012 Instruction Type:Provider Instructions for Treatment Name Dates Details How to access health informa tion online Indication:Lymphocytosis Start:18-Sep-2019 Instruction Type:Patient Education How to access health informa tion online - Detail Indication:Lymphocytosis Start:18-Sep-2019 Instruction Type:Patient Education Patient Instructions Indication:Lymphocytosis Start:18-Sep-2019 Instruction Type:Provider Instructions for Treatment Patient Instructions Indication:Elevated hemoglobin A1c Start:18-Jun-2019 Instruction Type:Provider Instructions for Treatment How to access health informa tion online Indication:Abnormal lung function test Start:19-Mar-2019 Instruction Type:Patient Education How to access health informa tion online - Detail Indication:Abnormal lung function test Start:19-Mar-2019 Instruction Type:Patient Education Patient Instructions Indication:Abnormal lung function test Start:19-Mar-2019 Instruction Type:Provider Instructions for Treatment How to access health informa tion online Indication:[facility] Start:30-Jan-2019 Instruction Type:Patient Education How to access health informa tion online - Detail Indication:[facility] Start:30-Jan-2019 Instruction Type:Patient Education Patient Instructions Indication:[facility] Start:30-Jan-2019 Instruction Type:Provider Instructions for Treatment How to access health informa tion online Indication:Elevated hemoglobin A1c Start:29-Oct-2018 Instruction Type:Patient Education How to access health informa tion online - Detail Indication:Elevated hemoglobin A1c Start:29-Oct-2018 Instruction Type:Patient Education Patient Instructions Indication:Elevated hemoglobin A1c Start:29-Oct-2018 Instruction Type:Provider Instructions for Treatment How to access health informa tion online Indication:Syncope Start:20-Jul-2018 Instruction Type:Patient Education How to access health informa tion online - Detail Indication:Syncope Start:20-Jul-2018 Instruction Type:Patient Education Patient Instructions Indication:Syncope Start:20-Jul-2018 Instruction Type:Provider Instructions for Treatment How to access health informa tion online Indication:Syncope Start:09-Jul-2018 Instruction Type:Patient Education How to access health informa tion online - Detail Indication:Syncope Start:09-Jul-2018 Instruction Type:Patient Education Patient Instructions Indication:Syncope Start:09-Jul-2018 Instruction Type:Provider Instructions for Treatment How to access health informa tion online Indication:Syncope Start:29-Jun-2018 Instruction Type:Patient Education How to access health informa tion online - Detail Indication:Syncope Start:29-Jun-2018 Instruction Type:Patient Education Patient Instructions Indication:Syncope Start:29-Jun-2018 Instruction Type:Provider Instructions for Treatment How to access health informa tion online Indication:Lymphocytosis Start:01-Jun-2018 Instruction Type:Patient Education How to access health informa tion online - Detail Indication:Lymphocytosis Start:01-Jun-2018 Instruction Type:Patient Education Patient Instructions Indication:Lymphocytosis Start:01-Jun-2018 Instruction Type:Provider Instructions for Treatment How to access health informa tion online Indication:Family history of malignant neoplasm of gastrointestinal tract (Renamed from Family history of cancer of digestive system) Start:31-Jan-2018 Instruction Type:Patient Education How to access health informa tion online - Detail Indication:Family history of malignant neoplasm of gastrointestinal tract (Renamed from Family history of cancer of digestive system) Start:31-Jan-2018 Instruction Type:Patient Education Patient Instructions Indication:Family history of malignant neoplasm of gastrointestinal tract (Renamed from Family history of cancer of digestive system) Start:31-Jan-2018 Instruction Type:Provider Instructions for Treatment How to access health informa tion online Indication:BMI 21.0-21.9, adult Start:27-Sep-2017 Instruction Type:Patient Education How to access health informa tion online - Detail Indication:BMI 21.0-21.9, adult Start:27-Sep-2017 Instruction Type:Patient Education Patient Instructions Indication:BMI 21.0-21.9, adult Start:27-Sep-2017 Instruction Type:Provider Instructions for Treatment How to access health informa tion online Indication:BMI 22.0-22.9, adult Start:26-May-2017 Instruction Type:Patient Education How to access health informa tion online - Detail Indication:BMI 22.0-22.9, adult Start:26-May-2017 Instruction Type:Patient Education Patient Instructions Indication:BMI 22.0-22.9, adult Start:26-May-2017 Instruction Type:Provider Instructions for Treatment How to access health informa tion online Indication:Current nonsmoker (Renamed from Current non-smoker) Start:18-Jan-2017 Instruction Type:Patient Education How to access health informa tion online - Detail Indication:Current nonsmoker (Renamed from Current non-smoker) Start:18-Jan-2017 Instruction Type:Patient Education Patient Instructions Indication:Current nonsmoker (Renamed from Current non-smoker) Start:18-Jan-2017 Instruction Type:Provider Instructions for Treatment How to access health informa tion online Indication:[facility] Start:14-Sep-2016 Instruction Type:Patient Education How to access health informa tion online - Detail Indication:[facility] Start:14-Sep-2016 Instruction Type:Patient Education Patient Instructions Indication:[facility] Start:14-Sep-2016 Instruction Type:Provider Instructions for Treatment How to access health informa tion online Indication:Osteoporosis Start:15-Apr-2016 Instruction Type:Patient Education How to access health informa tion online - Detail Indication:Osteoporosis Start:15-Apr-2016 Instruction Type:Patient Education Patient Instructions Indication:Osteoporosis Start:15-Apr-2016 Instruction Type:Provider Instructions for Treatment How to access health informa tion online Indication:[facility] Start:11-Sep-2015 Instruction Type:Patient Education How to access health informa tion online - Detail Indication:[facility] Start:11-Sep-2015 Instruction Type:Patient Education Patient Instructions Indication:[facility] Start:11-Sep-2015 Instruction Type:Provider Instructions for Treatment How to access health informa tion online Indication:Low Back Pain Start:17-Feb-2015 Instruction Type:Patient Education How to access health informa tion online - Detail Indication:Low Back Pain Start:17-Feb-2015 Instruction Type:Patient Education Patient Instructions Indication:Low Back Pain Start:17-Feb-2015 Instruction Type:Provider Instructions for Treatment Patient Instructions Indication:Encounter for Medicare annual wellness exam Start:27-Aug-2014 Instruction Type:Provider Instructions for Treatment How to access health informa tion online Indication:Encounter for Medicare annual wellness exam Start:27-Aug-2014 Instruction Type:Patient Education How to access health informa tion online - Detail Indication:Encounter for Medicare annual wellness exam Start:27-Aug-2014 Instruction Type:Patient Education Patient Instructions Indication:Headache Start:23-Apr-2014 Instruction Type:Provider Instructions for Treatment Patient Instructions Indication:Osteopenia Start:02-Aug-2013 Instruction Type:Provider Instructions for Treatment Patient Instructions Indication:Ultrasound scan abnormal Start:22-Mar-2013 Instruction Type:Provider Instructions for Treatment Patient Instructions Indication:Abdominal pain, acute, generalized Start:13-Feb-2013 Instruction Type:Provider Instructions for Treatment Patient Instructions Indication:Encounter for Medicare annual wellness exam Start:20-Aug-2012 Instruction Type:Provider Instructions for Treatment Patient Instructions Indication:Elevated blood-pressure reading without diagnosis of hypertension Start:11-Jul-2012 Instruction Type:Provider Instructions for Treatment Patient Instructions Indication:Osteopenia Start:11-Apr-2012 Instruction Type:Provider Instructions for Treatment Name Dates Details Patient Instructions Indication:Abdominal pain Start:01-Apr-2020 Instruction Type:Provider Instructions for Treatment Patient Instructions Indication:Diarrhea Start:27-Mar-2020 Instruction Type:Provider Instructions for Treatment Patient Instructions Indication:Diarrhea Start:26-Mar-2020 Instruction Type:Provider Instructions for Treatment Patient Instructions Indication:Nonsmoker Start:23-Mar-2020 Instruction Type:Provider Instructions for Treatment How to Access Health Informa tion Online using Patient Portal and [employer]rd [employer] Apps Indication:Nonsmoker Start:23-Mar-2020 Instruction Type:Patient Education Patient Instructions Indication:Abdominal pain Start:09-Mar-2020 Instruction Type:Provider Instructions for Treatment How to Access Health Informa tion Online using Patient Portal and [employer]rd [employer] Apps Indication:Abdominal pain Start:09-Mar-2020 Instruction Type:Patient Education How to access health informa tion online Indication:Nonsmoker Start:14-Jan-2020 Instruction Type:Patient Education How to access health informa tion online - Detail Indication:Nonsmoker Start:14-Jan-2020 Instruction Type:Patient Education Patient Instructions Indication:Nonsmoker Start:14-Jan-2020 Instruction Type:Provider Instructions for Treatment How to access health informa tion online Indication:Lymphocytosis Start:18-Sep-2019 Instruction Type:Patient Education How to access health informa tion online - Detail Indication:Lymphocytosis Start:18-Sep-2019 Instruction Type:Patient Education Patient Instructions Indication:Lymphocytosis Start:18-Sep-2019 Instruction Type:Provider Instructions for Treatment Patient Instructions Indication:Elevated hemoglobin A1c Start:18-Jun-2019 Instruction Type:Provider Instructions for Treatment How to access health informa tion online Indication:Abnormal lung function test Start:19-Mar-2019 Instruction Type:Patient Education How to access health informa tion online - Detail Indication:Abnormal lung function test Start:19-Mar-2019 Instruction Type:Patient Education Patient Instructions Indication:Abnormal lung function test Start:19-Mar-2019 Instruction Type:Provider Instructions for Treatment How to access health informa tion online Indication:[facility] Start:30-Jan-2019 Instruction Type:Patient Education How to access health informa tion online - Detail Indication:[facility] Start:30-Jan-2019 Instruction Type:Patient Education Patient Instructions Indication:[facility] Start:30-Jan-2019 Instruction Type:Provider Instructions for Treatment How to access health informa tion online Indication:Elevated hemoglobin A1c Start:29-Oct-2018 Instruction Type:Patient Education How to access health informa tion online - Detail Indication:Elevated hemoglobin A1c Start:29-Oct-2018 Instruction Type:Patient Education Patient Instructions Indication:Elevated hemoglobin A1c Start:29-Oct-2018 Instruction Type:Provider Instructions for Treatment How to access health informa tion online Indication:Syncope Start:20-Jul-2018 Instruction Type:Patient Education How to access health informa tion online - Detail Indication:Syncope Start:20-Jul-2018 Instruction Type:Patient Education Patient Instructions Indication:Syncope Start:20-Jul-2018 Instruction Type:Provider Instructions for Treatment How to access health informa tion online Indication:Syncope Start:09-Jul-2018 Instruction Type:Patient Education How to access health informa tion online - Detail Indication:Syncope Start:09-Jul-2018 Instruction Type:Patient Education Patient Instructions Indication:Syncope Start:09-Jul-2018 Instruction Type:Provider Instructions for Treatment How to access health informa tion online Indication:Syncope Start:29-Jun-2018 Instruction Type:Patient Education How to access health informa tion online - Detail Indication:Syncope Start:29-Jun-2018 Instruction Type:Patient Education Patient Instructions Indication:Syncope Start:29-Jun-2018 Instruction Type:Provider Instructions for Treatment How to access health informa tion online Indication:Lymphocytosis Start:01-Jun-2018 Instruction Type:Patient Education How to access health informa tion online - Detail Indication:Lymphocytosis Start:01-Jun-2018 Instruction Type:Patient Education Patient Instructions Indication:Lymphocytosis Start:01-Jun-2018 Instruction Type:Provider Instructions for Treatment How to access health informa tion online Indication:Family history of malignant neoplasm of gastrointestinal tract (Renamed from Family history of cancer of digestive system) Start:31-Jan-2018 Instruction Type:Patient Education How to access health informa tion online - Detail Indication:Family history of malignant neoplasm of gastrointestinal tract (Renamed from Family history of cancer of digestive system) Start:31-Jan-2018 Instruction Type:Patient Education Patient Instructions Indication:Family history of malignant neoplasm of gastrointestinal tract (Renamed from Family history of cancer of digestive system) Start:31-Jan-2018 Instruction Type:Provider Instructions for Treatment How to access health informa tion online Indication:BMI 21.0-21.9, adult Start:27-Sep-2017 Instruction Type:Patient Education How to access health informa tion online - Detail Indication:BMI 21.0-21.9, adult Start:27-Sep-2017 Instruction Type:Patient Education Patient Instructions Indication:BMI 21.0-21.9, adult Start:27-Sep-2017 Instruction Type:Provider Instructions for Treatment How to access health informa tion online Indication:BMI 22.0-22.9, adult Start:26-May-2017 Instruction Type:Patient Education How to access health informa tion online - Detail Indication:BMI 22.0-22.9, adult Start:26-May-2017 Instruction Type:Patient Education Patient Instructions Indication:BMI 22.0-22.9, adult Start:26-May-2017 Instruction Type:Provider Instructions for Treatment How to access health informa tion online Indication:Current nonsmoker (Renamed from Current non-smoker) Start:18-Jan-2017 Instruction Type:Patient Education How to access health informa tion online - Detail Indication:Current nonsmoker (Renamed from Current non-smoker) Start:18-Jan-2017 Instruction Type:Patient Education Patient Instructions Indication:Current nonsmoker (Renamed from Current non-smoker) Start:18-Jan-2017 Instruction Type:Provider Instructions for Treatment How to access health informa tion online Indication:[facility] Start:14-Sep-2016 Instruction Type:Patient Education How to access health informa tion online - Detail Indication:[facility] Start:14-Sep-2016 Instruction Type:Patient Education Patient Instructions Indication:[facility] Start:14-Sep-2016 Instruction Type:Provider Instructions for Treatment How to access health informa tion online Indication:Osteoporosis Start:15-Apr-2016 Instruction Type:Patient Education How to access health informa tion online - Detail Indication:Osteoporosis Start:15-Apr-2016 Instruction Type:Patient Education Patient Instructions Indication:Osteoporosis Start:15-Apr-2016 Instruction Type:Provider Instructions for Treatment How to access health informa tion online Indication:[facility] Start:11-Sep-2015 Instruction Type:Patient Education How to access health informa tion online - Detail Indication:[facility] Start:11-Sep-2015 Instruction Type:Patient Education Patient Instructions Indication:[facility] Start:11-Sep-2015 Instruction Type:Provider Instructions for Treatment How to access health informa tion online Indication:Low Back Pain Start:17-Feb-2015 Instruction Type:Patient Education How to access health informa tion online - Detail Indication:Low Back Pain Start:17-Feb-2015 Instruction Type:Patient Education Patient Instructions Indication:Low Back Pain Start:17-Feb-2015 Instruction Type:Provider Instructions for Treatment Patient Instructions Indication:Encounter for Medicare annual wellness exam Start:27-Aug-2014 Instruction Type:Provider Instructions for Treatment How to access health informa tion online Indication:Encounter for Medicare annual wellness exam Start:27-Aug-2014 Instruction Type:Patient Education How to access health informa tion online - Detail Indication:Encounter for Medicare annual wellness exam Start:27-Aug-2014 Instruction Type:Patient Education Patient Instructions Indication:Headache Start:23-Apr-2014 Instruction Type:Provider Instructions for Treatment Patient Instructions Indication:Osteopenia Start:02-Aug-2013 Instruction Type:Provider Instructions for Treatment Patient Instructions Indication:Ultrasound scan abnormal Start:22-Mar-2013 Instruction Type:Provider Instructions for Treatment Patient Instructions Indication:Abdominal pain, acute, generalized Start:13-Feb-2013 Instruction Type:Provider Instructions for Treatment Patient Instructions Indication:Encounter for Medicare annual wellness exam Start:20-Aug-2012 Instruction Type:Provider Instructions for Treatment Patient Instructions Indication:Elevated blood-pressure reading without diagnosis of hypertension Start:11-Jul-2012 Instruction Type:Provider Instructions for Treatment Patient Instructions Indication:Osteopenia Start:11-Apr-2012 Instruction Type:Provider Instructions for Treatment Name Dates Details Patient Instructions Indication:Elevated hemoglobin A1c Start:29-Apr-2020 Instruction Type:Provider Instructions for Treatment How to Access Health Informa tion Online using Patient Portal and [employer]rd [employer] Apps Indication:Elevated hemoglobin A1c Start:29-Apr-2020 Instruction Type:Patient Education Patient Instructions Indication:Abdominal pain Start:01-Apr-2020 Instruction Type:Provider Instructions for Treatment Patient Instructions Indication:Diarrhea Start:27-Mar-2020 Instruction Type:Provider Instructions for Treatment Patient Instructions Indication:Diarrhea Start:26-Mar-2020 Instruction Type:Provider Instructions for Treatment Patient Instructions Indication:Nonsmoker Start:23-Mar-2020 Instruction Type:Provider Instructions for Treatment How to Access Health Informa tion Online using Patient Portal and [employer]rd [employer] Apps Indication:Nonsmoker Start:23-Mar-2020 Instruction Type:Patient Education Patient Instructions Indication:Abdominal pain Start:09-Mar-2020 Instruction Type:Provider Instructions for Treatment How to Access Health Informa tion Online using Patient Portal and [employer] Apps Indication:Abdominal pain Start:09-Mar-2020 Instruction Type:Patient Education How to access health informa tion online Indication:Nonsmoker Start:14-Jan-2020 Instruction Type:Patient Education How to access health informa tion online - Detail Indication:Nonsmoker Start:14-Jan-2020 Instruction Type:Patient Education Patient Instructions Indication:Nonsmoker Start:14-Jan-2020 Instruction Type:Provider Instructions for Treatment How to access health informa tion online Indication:Lymphocytosis Start:18-Sep-2019 Instruction Type:Patient Education How to access health informa tion online - Detail Indication:Lymphocytosis Start:18-Sep-2019 Instruction Type:Patient Education Patient Instructions Indication:Lymphocytosis Start:18-Sep-2019 Instruction Type:Provider Instructions for Treatment Patient Instructions Indication:Elevated hemoglobin A1c Start:18-Jun-2019 Instruction Type:Provider Instructions for Treatment How to access health informa tion online Indication:Abnormal lung function test Start:19-Mar-2019 Instruction Type:Patient Education How to access health informa tion online - Detail Indication:Abnormal lung function test Start:19-Mar-2019 Instruction Type:Patient Education Patient Instructions Indication:Abnormal lung function test Start:19-Mar-2019 Instruction Type:Provider Instructions for Treatment How to access health informa tion online Indication:[facility] Start:30-Jan-2019 Instruction Type:Patient Education How to access health informa tion online - Detail Indication:[facility] Start:30-Jan-2019 Instruction Type:Patient Education Patient Instructions Indication:[facility] Start:30-Jan-2019 Instruction Type:Provider Instructions for Treatment How to access health informa tion online Indication:Elevated hemoglobin A1c Start:29-Oct-2018 Instruction Type:Patient Education How to access health informa tion online - Detail Indication:Elevated hemoglobin A1c Start:29-Oct-2018 Instruction Type:Patient Education Patient Instructions Indication:Elevated hemoglobin A1c Start:29-Oct-2018 Instruction Type:Provider Instructions for Treatment How to access health informa tion online Indication:Syncope Start:20-Jul-2018 Instruction Type:Patient Education How to access health informa tion online - Detail Indication:Syncope Start:20-Jul-2018 Instruction Type:Patient Education Patient Instructions Indication:Syncope Start:20-Jul-2018 Instruction Type:Provider Instructions for Treatment How to access health informa tion online Indication:Syncope Start:09-Jul-2018 Instruction Type:Patient Education How to access health informa tion online - Detail Indication:Syncope Start:09-Jul-2018 Instruction Type:Patient Education Patient Instructions Indication:Syncope Start:09-Jul-2018 Instruction Type:Provider Instructions for Treatment How to access health informa tion online Indication:Syncope Start:29-Jun-2018 Instruction Type:Patient Education How to access health informa tion online - Detail Indication:Syncope Start:29-Jun-2018 Instruction Type:Patient Education Patient Instructions Indication:Syncope Start:29-Jun-2018 Instruction Type:Provider Instructions for Treatment How to access health informa tion online Indication:Lymphocytosis Start:01-Jun-2018 Instruction Type:Patient Education How to access health informa tion online - Detail Indication:Lymphocytosis Start:01-Jun-2018 Instruction Type:Patient Education Patient Instructions Indication:Lymphocytosis Start:01-Jun-2018 Instruction Type:Provider Instructions for Treatment How to access health informa tion online Indication:Family history of malignant neoplasm of gastrointestinal tract (Renamed from Family history of cancer of digestive system) Start:31-Jan-2018 Instruction Type:Patient Education How to access health informa tion online - Detail Indication:Family history of malignant neoplasm of gastrointestinal tract (Renamed from Family history of cancer of digestive system) Start:31-Jan-2018 Instruction Type:Patient Education Patient Instructions Indication:Family history of malignant neoplasm of gastrointestinal tract (Renamed from Family history of cancer of digestive system) Start:31-Jan-2018 Instruction Type:Provider Instructions for Treatment How to access health informa tion online Indication:BMI 21.0-21.9, adult Start:27-Sep-2017 Instruction Type:Patient Education How to access health informa tion online - Detail Indication:BMI 21.0-21.9, adult Start:27-Sep-2017 Instruction Type:Patient Education Patient Instructions Indication:BMI 21.0-21.9, adult Start:27-Sep-2017 Instruction Type:Provider Instructions for Treatment How to access health informa tion online Indication:BMI 22.0-22.9, adult Start:26-May-2017 Instruction Type:Patient Education How to access health informa tion online - Detail Indication:BMI 22.0-22.9, adult Start:26-May-2017 Instruction Type:Patient Education Patient Instructions Indication:BMI 22.0-22.9, adult Start:26-May-2017 Instruction Type:Provider Instructions for Treatment How to access health informa tion online Indication:Current nonsmoker (Renamed from Current non-smoker) Start:18-Jan-2017 Instruction Type:Patient Education How to access health informa tion online - Detail Indication:Current nonsmoker (Renamed from Current non-smoker) Start:18-Jan-2017 Instruction Type:Patient Education Patient Instructions Indication:Current nonsmoker (Renamed from Current non-smoker) Start:18-Jan-2017 Instruction Type:Provider Instructions for Treatment How to access health informa tion online Indication:[facility] Start:14-Sep-2016 Instruction Type:Patient Education How to access health informa tion online - Detail Indication:[facility] Start:14-Sep-2016 Instruction Type:Patient Education Patient Instructions Indication:[facility] Start:14-Sep-2016 Instruction Type:Provider Instructions for Treatment How to access health informa tion online Indication:Osteoporosis Start:15-Apr-2016 Instruction Type:Patient Education How to access health informa tion online - Detail Indication:Osteoporosis Start:15-Apr-2016 Instruction Type:Patient Education Patient Instructions Indication:Osteoporosis Start:15-Apr-2016 Instruction Type:Provider Instructions for Treatment How to access health informa tion online Indication:[facility] Start:11-Sep-2015 Instruction Type:Patient Education How to access health informa tion online - Detail Indication:[facility] Start:11-Sep-2015 Instruction Type:Patient Education Patient Instructions Indication:[facility] Start:11-Sep-2015 Instruction Type:Provider Instructions for Treatment How to access health informa tion online Indication:Low Back Pain Start:17-Feb-2015 Instruction Type:Patient Education How to access health informa tion online - Detail Indication:Low Back Pain Start:17-Feb-2015 Instruction Type:Patient Education Patient Instructions Indication:Low Back Pain Start:17-Feb-2015 Instruction Type:Provider Instructions for Treatment Patient Instructions Indication:Encounter for Medicare annual wellness exam Start:27-Aug-2014 Instruction Type:Provider Instructions for Treatment How to access health informa tion online Indication:Encounter for Medicare annual wellness exam Start:27-Aug-2014 Instruction Type:Patient Education How to access health informa tion online - Detail Indication:Encounter for Medicare annual wellness exam Start:27-Aug-2014 Instruction Type:Patient Education Patient Instructions Indication:Headache Start:23-Apr-2014 Instruction Type:Provider Instructions for Treatment Patient Instructions Indication:Osteopenia Start:02-Aug-2013 Instruction Type:Provider Instructions for Treatment Patient Instructions Indication:Ultrasound scan abnormal Start:22-Mar-2013 Instruction Type:Provider Instructions for Treatment Patient Instructions Indication:Abdominal pain, acute, generalized Start:13-Feb-2013 Instruction Type:Provider Instructions for Treatment Patient Instructions Indication:Encounter for Medicare annual wellness exam Start:20-Aug-2012 Instruction Type:Provider Instructions for Treatment Patient Instructions Indication:Elevated blood-pressure reading without diagnosis of hypertension Start:11-Jul-2012 Instruction Type:Provider Instructions for Treatment Patient Instructions Indication:Osteopenia Start:11-Apr-2012 Instruction Type:Provider Instructions for Treatment Name Dates Details Lymphocytosis : How to acces s health information online Indication:Lymphocytosis Lymphocytosis : How to acces s health information online - Detail Indication:Lymphocytosis Lymphocytosis : Patient Inst ructions Indication:Lymphocytosis Family history of malignant neoplasm of gastrointestinal tract (Renamed from Family history of cancer of digestive system) : How to access health information online Indication:Family history of malignant neoplasm of gastrointestinal tract (Renamed from Family history of cancer of digestive system) Family history of malignant neoplasm of gastrointestinal tract (Renamed from Family history of cancer of digestive system) : How to access health information online - Detail Indication:Family history of malignant neoplasm of gastrointestinal tract (Renamed from Family history of cancer of digestive system) Family history of malignant neoplasm of gastrointestinal tract (Renamed from Family history of cancer of digestive system) : Patient Instructions Indication:Family history of malignant neoplasm of gastrointestinal tract (Renamed from Family history of cancer of digestive system) BMI 21.0-21.9, adult : How t o access health information online Indication:BMI 21.0-21.9, adult BMI 21.0-21.9, adult : How t o access health information online - Detail Indication:BMI 21.0-21.9, adult BMI 21.0-21.9, adult : Patie nt Instructions Indication:BMI 21.0-21.9, adult BMI 22.0-22.9, adult : How t o access health information online Indication:BMI 22.0-22.9, adult BMI 22.0-22.9, adult : How t o access health information online - Detail Indication:BMI 22.0-22.9, adult BMI 22.0-22.9, adult : Patie nt Instructions Indication:BMI 22.0-22.9, adult Current nonsmoker (Renamed f rom Current non-smoker) : How to access health information online Indication:Current nonsmoker (Renamed from Current non-smoker) Current nonsmoker (Renamed f rom Current non-smoker) : How to access health information online - Detail Indication:Current nonsmoker (Renamed from Current non-smoker) Current nonsmoker (Renamed f rom Current non-smoker) : Patient Instructions Indication:Current nonsmoker (Renamed from Current non-smoker) [facility] : How to access health information online Indication:[facility] : How to access health information online - Detail Indication:[facility] : Patien t Instructions Indication:[facility] Osteoporosis : How to access health information online Indication:Osteoporosis Osteoporosis : How to access health information online - Detail Indication:Osteoporosis Osteoporosis : Patient Instr uctions Indication:Osteoporosis Low Back Pain : How to acces s health information online Indication:Low Back Pain Low Back Pain : How to acces s health information online - Detail Indication:Low Back Pain Low Back Pain : Patient Inst ructions Indication:Low Back Pain Encounter for Medicare annua wellness exam : Patient Instructions Indication:Encounter for Medicare annual wellness exam Encounter for Medicare annua l wellness exam : How to access health information online Indication:Encounter for Medicare annual wellness exam Encounter for Medicare annua l wellness exam : How to access health information online - Detail Indication:Encounter for Medicare annual wellness exam Headache : Patient Instructi ons Indication:Headache Osteopenia : Patient Instruc tions Indication:Osteopenia Ultrasound scan abnormal : P atient Instructions Indication:Ultrasound scan abnormal Abdominal pain, acute, gener alized : Patient Instructions Indication:Abdominal pain, acute, generalized Elevated blood-pressure read ing without diagnosis of hypertension : Patient Instructions Indication:Elevated blood-pressure reading without diagnosis of hypertension Name Dates Details How to access health informa tion online Indication:Syncope Start:09-Jul-2018 Instruction Type:Patient Education How to access health informa tion online - Detail Indication:Syncope Start:09-Jul-2018 Instruction Type:Patient Education Patient Instructions Indication:Syncope Start:09-Jul-2018 Instruction Type:Provider Instructions for Treatment How to access health informa tion online Indication:Syncope Start:29-Jun-2018 Instruction Type:Patient Education How to access health informa tion online - Detail Indication:Syncope Start:29-Jun-2018 Instruction Type:Patient Education Patient Instructions Indication:Syncope Start:29-Jun-2018 Instruction Type:Provider Instructions for Treatment How to access health informa tion online Indication:Lymphocytosis Start:01-Jun-2018 Instruction Type:Patient Education How to access health informa tion online - Detail Indication:Lymphocytosis Start:01-Jun-2018 Instruction Type:Patient Education Patient Instructions Indication:Lymphocytosis Start:01-Jun-2018 Instruction Type:Provider Instructions for Treatment How to access health informa tion online Indication:Family history of malignant neoplasm of gastrointestinal tract (Renamed from Family history of cancer of digestive system) Start:31-Jan-2018 Instruction Type:Patient Education How to access health informa tion online - Detail Indication:Family history of malignant neoplasm of gastrointestinal tract (Renamed from Family history of cancer of digestive system) Start:31-Jan-2018 Instruction Type:Patient Education Patient Instructions Indication:Family history of malignant neoplasm of gastrointestinal tract (Renamed from Family history of cancer of digestive system) Start:31-Jan-2018 Instruction Type:Provider Instructions for Treatment How to access health informa tion online Indication:BMI 21.0-21.9, adult Start:27-Sep-2017 Instruction Type:Patient Education How to access health informa tion online - Detail Indication:BMI 21.0-21.9, adult Start:27-Sep-2017 Instruction Type:Patient Education Patient Instructions Indication:BMI 21.0-21.9, adult Start:27-Sep-2017 Instruction Type:Provider Instructions for Treatment How to access health informa tion online Indication:BMI 22.0-22.9, adult Start:26-May-2017 Instruction Type:Patient Education How to access health informa tion online - Detail Indication:BMI 22.0-22.9, adult Start:26-May-2017 Instruction Type:Patient Education Patient Instructions Indication:BMI 22.0-22.9, adult Start:26-May-2017 Instruction Type:Provider Instructions for Treatment How to access health informa tion online Indication:Current nonsmoker (Renamed from Current non-smoker) Start:18-Jan-2017 Instruction Type:Patient Education How to access health informa tion online - Detail Indication:Current nonsmoker (Renamed from Current non-smoker) Start:18-Jan-2017 Instruction Type:Patient Education Patient Instructions Indication:Current nonsmoker (Renamed from Current non-smoker) Start:18-Jan-2017 Instruction Type:Provider Instructions for Treatment How to access health informa tion online Indication:[facility] Start:14-Sep-2016 Instruction Type:Patient Education How to access health informa tion online - Detail Indication:[facility] Start:14-Sep-2016 Instruction Type:Patient Education Patient Instructions Indication:[facility] Start:14-Sep-2016 Instruction Type:Provider Instructions for Treatment How to access health informa tion online Indication:Osteoporosis Start:15-Apr-2016 Instruction Type:Patient Education How to access health informa tion online - Detail Indication:Osteoporosis Start:15-Apr-2016 Instruction Type:Patient Education Patient Instructions Indication:Osteoporosis Start:15-Apr-2016 Instruction Type:Provider Instructions for Treatment How to access health informa tion online Indication:[facility] Start:11-Sep-2015 Instruction Type:Patient Education How to access health informa tion online - Detail Indication:[facility] Start:11-Sep-2015 Instruction Type:Patient Education Patient Instructions Indication:[facility] Start:11-Sep-2015 Instruction Type:Provider Instructions for Treatment How to access health informa tion online Indication:Low Back Pain Start:17-Feb-2015 Instruction Type:Patient Education How to access health informa tion online - Detail Indication:Low Back Pain Start:17-Feb-2015 Instruction Type:Patient Education Patient Instructions Indication:Low Back Pain Start:17-Feb-2015 Instruction Type:Provider Instructions for Treatment Patient Instructions Indication:Encounter for Medicare annual wellness exam Start:27-Aug-2014 Instruction Type:Provider Instructions for Treatment How to access health informa tion online Indication:Encounter for Medicare annual wellness exam Start:27-Aug-2014 Instruction Type:Patient Education How to access health informa tion online - Detail Indication:Encounter for Medicare annual wellness exam Start:27-Aug-2014 Instruction Type:Patient Education Patient Instructions Indication:Headache Start:23-Apr-2014 Instruction Type:Provider Instructions for Treatment Patient Instructions Indication:Osteopenia Start:02-Aug-2013 Instruction Type:Provider Instructions for Treatment Patient Instructions Indication:Ultrasound scan abnormal Start:22-Mar-2013 Instruction Type:Provider Instructions for Treatment Patient Instructions Indication:Abdominal pain, acute, generalized Start:13-Feb-2013 Instruction Type:Provider Instructions for Treatment Patient Instructions Indication:Encounter for Medicare annual wellness exam Start:20-Aug-2012 Instruction Type:Provider Instructions for Treatment Patient Instructions Indication:Elevated blood-pressure reading without diagnosis of hypertension Start:11-Jul-2012 Instruction Type:Provider Instructions for Treatment Patient Instructions Indication:Osteopenia Start:11-Apr-2012 Instruction Type:Provider Instructions for Treatment Name Dates Details How to access health informa tion online Indication:Elevated hemoglobin A1c Start:29-Oct-2018 Instruction Type:Patient Education How to access health informa tion online - Detail Indication:Elevated hemoglobin A1c Start:29-Oct-2018 Instruction Type:Patient Education Patient Instructions Indication:Elevated hemoglobin A1c Start:29-Oct-2018 Instruction Type:Provider Instructions for Treatment How to access health informa tion online Indication:Syncope Start:20-Jul-2018 Instruction Type:Patient Education How to access health informa tion online - Detail Indication:Syncope Start:20-Jul-2018 Instruction Type:Patient Education Patient Instructions Indication:Syncope Start:20-Jul-2018 Instruction Type:Provider Instructions for Treatment How to access health informa tion online Indication:Syncope Start:09-Jul-2018 Instruction Type:Patient Education How to access health informa tion online - Detail Indication:Syncope Start:09-Jul-2018 Instruction Type:Patient Education Patient Instructions Indication:Syncope Start:09-Jul-2018 Instruction Type:Provider Instructions for Treatment How to access health informa tion online Indication:Syncope Start:29-Jun-2018 Instruction Type:Patient Education How to access health informa tion online - Detail Indication:Syncope Start:29-Jun-2018 Instruction Type:Patient Education Patient Instructions Indication:Syncope Start:29-Jun-2018 Instruction Type:Provider Instructions for Treatment How to access health informa tion online Indication:Lymphocytosis Start:01-Jun-2018 Instruction Type:Patient Education How to access health informa tion online - Detail Indication:Lymphocytosis Start:01-Jun-2018 Instruction Type:Patient Education Patient Instructions Indication:Lymphocytosis Start:01-Jun-2018 Instruction Type:Provider Instructions for Treatment How to access health informa tion online Indication:Family history of malignant neoplasm of gastrointestinal tract (Renamed from Family history of cancer of digestive system) Start:31-Jan-2018 Instruction Type:Patient Education How to access health informa tion online - Detail Indication:Family history of malignant neoplasm of gastrointestinal tract (Renamed from Family history of cancer of digestive system) Start:31-Jan-2018 Instruction Type:Patient Education Patient Instructions Indication:Family history of malignant neoplasm of gastrointestinal tract (Renamed from Family history of cancer of digestive system) Start:31-Jan-2018 Instruction Type:Provider Instructions for Treatment How to access health informa tion online Indication:BMI 21.0-21.9, adult Start:27-Sep-2017 Instruction Type:Patient Education How to access health informa tion online - Detail Indication:BMI 21.0-21.9, adult Start:27-Sep-2017 Instruction Type:Patient Education Patient Instructions Indication:BMI 21.0-21.9, adult Start:27-Sep-2017 Instruction Type:Provider Instructions for Treatment How to access health informa tion online Indication:BMI 22.0-22.9, adult Start:26-May-2017 Instruction Type:Patient Education How to access health informa tion online - Detail Indication:BMI 22.0-22.9, adult Start:26-May-2017 Instruction Type:Patient Education Patient Instructions Indication:BMI 22.0-22.9, adult Start:26-May-2017 Instruction Type:Provider Instructions for Treatment How to access health informa tion online Indication:Current nonsmoker (Renamed from Current non-smoker) Start:18-Jan-2017 Instruction Type:Patient Education How to access health informa tion online - Detail Indication:Current nonsmoker (Renamed from Current non-smoker) Start:18-Jan-2017 Instruction Type:Patient Education Patient Instructions Indication:Current nonsmoker (Renamed from Current non-smoker) Start:18-Jan-2017 Instruction Type:Provider Instructions for Treatment How to access health informa tion online Indication:[facility] Start:14-Sep-2016 Instruction Type:Patient Education How to access health informa tion online - Detail Indication:[facility] Start:14-Sep-2016 Instruction Type:Patient Education Patient Instructions Indication:[facility] Start:14-Sep-2016 Instruction Type:Provider Instructions for Treatment How to access health informa tion online Indication:Osteoporosis Start:15-Apr-2016 Instruction Type:Patient Education How to access health informa tion online - Detail Indication:Osteoporosis Start:15-Apr-2016 Instruction Type:Patient Education Patient Instructions Indication:Osteoporosis Start:15-Apr-2016 Instruction Type:Provider Instructions for Treatment How to access health informa tion online Indication:[facility] Start:11-Sep-2015 Instruction Type:Patient Education How to access health informa tion online - Detail Indication:[facility] Start:11-Sep-2015 Instruction Type:Patient Education Patient Instructions Indication:[facility] Start:11-Sep-2015 Instruction Type:Provider Instructions for Treatment How to access health informa tion online Indication:Low Back Pain Start:17-Feb-2015 Instruction Type:Patient Education How to access health informa tion online - Detail Indication:Low Back Pain Start:17-Feb-2015 Instruction Type:Patient Education Patient Instructions Indication:Low Back Pain Start:17-Feb-2015 Instruction Type:Provider Instructions for Treatment Patient Instructions Indication:Encounter for Medicare annual wellness exam Start:27-Aug-2014 Instruction Type:Provider Instructions for Treatment How to access health informa tion online Indication:Encounter for Medicare annual wellness exam Start:27-Aug-2014 Instruction Type:Patient Education How to access health informa tion online - Detail Indication:Encounter for Medicare annual wellness exam Start:27-Aug-2014 Instruction Type:Patient Education Patient Instructions Indication:Headache Start:23-Apr-2014 Instruction Type:Provider Instructions for Treatment Patient Instructions Indication:Osteopenia Start:02-Aug-2013 Instruction Type:Provider Instructions for Treatment Patient Instructions Indication:Ultrasound scan abnormal Start:22-Mar-2013 Instruction Type:Provider Instructions for Treatment Patient Instructions Indication:Abdominal pain, acute, generalized Start:13-Feb-2013 Instruction Type:Provider Instructions for Treatment Patient Instructions Indication:Encounter for Medicare annual wellness exam Start:20-Aug-2012 Instruction Type:Provider Instructions for Treatment Patient Instructions Indication:Elevated blood-pressure reading without diagnosis of hypertension Start:11-Jul-2012 Instruction Type:Provider Instructions for Treatment Patient Instructions Indication:Osteopenia Start:11-Apr-2012 Instruction Type:Provider Instructions for Treatment Advance Directives No Advanced Directives Records Found Name Dates Details Immunization Registry [place] - Effective on 05/26/2017. Expiration date unspecified Effective:26-May-2017 Name Dates Details Immunization Registry [place] - Effective on 05/26/2017. Expiration date unspecified Effective:26-May-2017 Name Dates Details Living Will - Effective on . Expiration date unspecified. Scanned Document is available upon request. Effective:03-May-2018 Immunization Registry [place] - Effective on 05/26/2017. Expiration date unspecified Effective:26-May-2017 Name Dates Details Living Will - Effective on . Expiration date unspecified. Scanned Document is available upon request. Effective:03-May-2018 Immunization Registry [place] - Effective on 05/26/2017. Expiration date unspecified Effective:26-May-2017 Name Dates Details Living Will - Effective on . Expiration date unspecified. Scanned Document is available upon request. Effective:03-May-2018 Immunization Registry [place] - Effective on 05/26/2017. Expiration date unspecified Effective:26-May-2017 Name Dates Details Living Will - Effective on . Expiration date unspecified. Scanned Document is available upon request. Effective:03-May-2018 Immunization Registry [place] - Effective on 05/26/2017. Expiration date unspecified Effective:26-May-2017 Name Dates Details Living Will - Effective on . Expiration date unspecified. Scanned Document is available upon request. Effective:03-May-2018 Immunization Registry [place] - Effective on 05/26/2017. Expiration date unspecified Effective:26-May-2017 Name Dates Details Living Will - Effective on . Expiration date unspecified. Scanned Document is available upon request. Effective:03-May-2018 Immunization Registry [place] - Effective on 05/26/2017. Expiration date unspecified Effective:26-May-2017 Name Dates Details Living Will - Effective on . Expiration date unspecified. Scanned Document is available upon request. Effective:03-May-2018 Immunization Registry [place] - Effective on 05/26/2017. Expiration date unspecified Effective:26-May-2017 Name Dates Details Living Will - Effective on . Expiration date unspecified. Scanned Document is available upon request. Effective:03-May-2018 Immunization Registry [place] - Effective on 05/26/2017. Expiration date unspecified Effective:26-May-2017 Name Dates Details Living Will - Effective on . Expiration date unspecified. Scanned Document is available upon request. Effective:03-May-2018 Immunization Registry [place] - Effective on 05/26/2017. Expiration date unspecified Effective:26-May-2017 Name Dates Details Living Will - Effective on . Expiration date unspecified. Scanned Document is available upon request. Effective:03-May-2018 Immunization Registry [place] - Effective on 05/26/2017. Expiration date unspecified Effective:26-May-2017 Name Dates Details Living Will - Effective on . Expiration date unspecified. Scanned Document is available upon request. Effective:03-May-2018 Immunization Registry [place] - Effective on 05/26/2017. Expiration date unspecified Effective:26-May-2017 Name Dates Details Living Will - Effective on . Expiration date unspecified. Scanned Document is available upon request. Effective:03-May-2018 Immunization Registry [place] - Effective on 05/26/2017. Expiration date unspecified Effective:26-May-2017 Name Dates Details Living Will - Effective on . Expiration date unspecified. Scanned Document is available upon request. Effective:03-May-2018 Immunization Registry [place] - Effective on 05/26/2017. Expiration date unspecified Effective:26-May-2017 Name Dates Details Living Will - Effective on . Expiration date unspecified. Scanned Document is available upon request. Effective:03-May-2018 Immunization Registry [place] - Effective on 05/26/2017. Expiration date unspecified Effective:26-May-2017 Name Dates Details Living Will - Effective on . Expiration date unspecified. Scanned Document is available upon request. Effective:03-May-2018 Immunization Registry [place] - Effective on 05/26/2017. Expiration date unspecified Effective:26-May-2017 Name Dates Details Living Will - Effective on . Expiration date unspecified. Scanned Document is available upon request. Effective:03-May-2018 Immunization Registry [place] - Effective on 05/26/2017. Expiration date unspecified Effective:26-May-2017 Name Dates Details Living Will - Effective on . Expiration date unspecified. Scanned Document is available upon request. Effective:03-May-2018 Immunization Registry [place] - Effective on 05/26/2017. Expiration date unspecified Effective:26-May-2017 Name Dates Details Living Will - Effective on . Expiration date unspecified. Scanned Document is available upon request. Effective:03-May-2018 Immunization Registry [place] - Effective on 05/26/2017. Expiration date unspecified Effective:26-May-2017 Name Dates Details Living Will - Effective on . Expiration date unspecified. Scanned Document is available upon request. Effective:03-May-2018 Immunization Registry [place] - Effective on 05/26/2017. Expiration date unspecified Effective:26-May-2017 Name Dates Details Living Will - Effective on . Expiration date unspecified. Scanned Document is available upon request. Effective:03-May-2018 Immunization Registry [place] - Effective on 05/26/2017. Expiration date unspecified Effective:26-May-2017 Name Dates Details Living Will - Effective on . Expiration date unspecified. Scanned Document is available upon request. Effective:03-May-2018 Immunization Registry [place] - Effective on 05/26/2017. Expiration date unspecified Effective:26-May-2017 Name Dates Details Living Will - Effective on . Expiration date unspecified. Scanned Document is available upon request. Effective:03-May-2018 Immunization Registry [place] - Effective on 05/26/2017. Expiration date unspecified Effective:26-May-2017 Name Dates Details Living Will - Effective on . Expiration date unspecified. Scanned Document is available upon request. Effective:03-May-2018 Immunization Registry [place] - Effective on 05/26/2017. Expiration date unspecified Effective:26-May-2017 Name Dates Details Living Will - Effective on . Expiration date unspecified. Scanned Document is available upon request. Effective:03-May-2018 Immunization Registry [place] - Effective on 05/26/2017. Expiration date unspecified Effective:26-May-2017 Advance Directive Response Recorded Date/ Time Living Will Yes March 12 3:53pm Power of Vehicle Cost Engineer Yes March 12 021 3:53pm Name Dates Details Living Will - Effective on . Expiration date unspecified. Scanned Document is available upon request. Effective:03-May-2018 Immunization Registry [place] - Effective on 05/26/2017. Expiration date unspecified Effective:26-May-2017 Name Dates Details Living Will - Effective on . Expiration date unspecified. Scanned Document is available upon request. Effective:03-May-2018 Immunization Registry [place] - Effective on 05/26/2017. Expiration date unspecified Effective:26-May-2017 Name Dates Details Living Will - Effective on . Expiration date unspecified. Scanned Document is available upon request. Effective:03-May-2018 Immunization Registry [place] - Effective on 05/26/2017. Expiration date unspecified Effective:26-May-2017 Name Dates Details Living Will - Effective on . Expiration date unspecified. Scanned Document is available upon request. Effective:03-May-2018 Immunization Registry [place] - Effective on 05/26/2017. Expiration date unspecified Effective:26-May-2017 Name Dates Details Living Will - Effective on . Expiration date unspecified. Scanned Document is available upon request. Effective:03-May-2018 Immunization Registry [place] - Effective on 05/26/2017. Expiration date unspecified Effective:26-May-2017 Documents on File Type Date Recorded Patient Sheet Metal Mechanic Expl anation Advance Directive(s) 01/02/2012 5:25 PM Advance Directive(s) 04/21/2010 Advance Directive(s) 04/20/2006 Name Dates Details Living Will - Effective on . Expiration date unspecified. Scanned Document is available upon request. Effective:03-May-2018 Immunization Registry [place] - Effective on 05/26/2017. Expiration date unspecified Effective:26-May-2017 Name Dates Details Living Will - Effective on . Expiration date unspecified. Scanned Document is available upon request. Effective:03-May-2018 Immunization Registry [place] - Effective on 05/26/2017. Expiration date unspecified Effective:26-May-2017 Name Dates Details Living Will - Effective on . Expiration date unspecified. Scanned Document is available upon request. Effective:03-May-2018 Immunization Registry [place] - Effective on 05/26/2017. Expiration date unspecified Effective:26-May-2017 Name Dates Details Living Will - Effective on . Expiration date unspecified. Scanned Document is available upon request. Effective:03-May-2018 Immunization Registry [place] - Effective on 05/26/2017. Expiration date unspecified Effective:26-May-2017 Advance Directive Response Recorded Date/ Time Living Will Yes March 12 2:53pm Power of Vehicle Cost Engineer Yes March 12 021 2:53pm Name Dates Details Living Will - Effective on . Expiration date unspecified. Scanned Document is available upon request. Effective:03-May-2018 Immunization Registry [place] - Effective on 05/26/2017. Expiration date unspecified Effective:26-May-2017 Name Dates Details Living Will - Effective on . Expiration date unspecified. Scanned Document is available upon request. Effective:03-May-2018 Immunization Registry [place] - Effective on 05/26/2017. Expiration date unspecified Effective:26-May-2017 Name Dates Details Living Will - Effective on . Expiration date unspecified. Scanned Document is available upon request. Effective:03-May-2018 Immunization Registry [place] - Effective on 05/26/2017. Expiration date unspecified Effective:26-May-2017 Name Dates Details Living Will - Effective on . Expiration date unspecified. Scanned Document is available upon request. Effective:03-May-2018 Immunization Registry [place] - Effective on 05/26/2017. Expiration date unspecified Effective:26-May-2017 Name Dates Details Living Will - Effective on . Expiration date unspecified. Scanned Document is available upon request. Effective:03-May-2018 Immunization Registry [place] - Effective on 05/26/2017. Expiration date unspecified Effective:26-May-2017 Name Dates Details Living Will - Effective on . Expiration date unspecified. Scanned Document is available upon request. Effective:03-May-2018 Immunization Registry [place] - Effective on 05/26/2017. Expiration date unspecified Effective:26-May-2017 Name Dates Details Living Will - Effective on . Expiration date unspecified. Scanned Document is available upon request. Effective:03-May-2018 Immunization Registry [place] - Effective on 05/26/2017. Expiration date unspecified Effective:26-May-2017 Name Dates Details Living Will - Effective on . Expiration date unspecified. Scanned Document is available upon request. Effective:03-May-2018 Immunization Registry [place] - Effective on 05/26/2017. Expiration date unspecified Effective:26-May-2017 Name Dates Details Living Will - Effective on . Expiration date unspecified. Scanned Document is available upon request. Effective:03-May-2018 Immunization Registry [place] - Effective on 05/26/2017. Expiration date unspecified Effective:26-May-2017 Advance Directive Response Recorded Date/ Time Living Will Yes March 12 3:53pm Do you have a Healthcare Power of Vehicle Cost Engineer? Yes March 12, 2020 3:53pm Chief Complaint and Reason for Visit Chief Complaint Admit Date 1 Y FU/MOVED FROM [facility] June 04, 2024 1: 27pm Reason for Visit Admit Date Dyspnea on exertion June 04, 2024 1:27 pm Chief Complaint SCREENING Chief Complaint xray ABN EKG ABN EKG Chief Complaint xray ABN EKG ABN EKG ABNORMAL STRESS TEST BILATERAL HIP PAIN RX HERE Chief Complaint ABN EKG ABN EKG ABNORMAL STRESS TEST BILATERAL HIP PAIN RX HERE Chief Complaint Amb Documentation Amb Documentation TURCIOS (SIBILLIA) Reason for Visit Dyspnea on exertion Chief Complaint Amb Documentation Amb Documentation TURCIOS (SIBILLIA) SCREENING Reason for Visit Dyspnea on exertion Chief Complaint 6 M FU Reason for Visit Dyspnea on exertion Chief Complaint Admit Date lumbar spine xray, 4 views - lumbar radi culopathy March 27, 2024 3:44pm 1 Y FU/MOVED FROM [facility] June 04, 2024 1: 27pm Summary Purpose Additional Source Comments Goals (unrecognized section and content) Goals may be documented in a n alternate sectionGoals may be documented in an alternate sectionGoals may be documented in an alternate sectionGoals may be documented in an alternate sectionGoals may be documented in an alternate sectionGoals may be documented in an alternate sectionGoals may be documented in an alternate sectionGoals may be documented in an alternate sectionGoals may be documented in an alternate sectionGoals may be documented in an alternate section Source Comments (unrecognize d section and content) In the event this informatio n is protected by the Federal Confidentiality of Alcohol and Drug Abuse Patient Records regulations: The Federal rules restrict any use of the information to criminally investigate or prosecute any alcohol or drug abuse patient.[facility] Reason for Visit (unrecogniz ed section and content) Reason Comments Recheck Care Teams (unrecognized sec tion and content) Disability Aide Relationship Specialty Start Date End Date Cole Grover DO PCP - General 02/09/06 Team Status: Active Member Role Status Dates Dr. Cole Grover DO Family Provider Active Dr. Cole Grover DO Primary Care Provider Active Team Status: Inactive Member Role Status Dates Dr. Cole Grover DO Primary Care Provider Active Dr. Kevin Rose MD Attending Provider Active Team Status: Active Member Role Status Dates Dr. Cole Grover DO Primary Care Provider, Other Provi brittany Active Dr. Kevin Rose MD Attending Provider Active Team Status: Active Member Role Status Dates Dr. Cole Grover DO Primary Care Provider Active Dr. Raul Acuna MD Attending Provider Active Team Status: Inactive Member Role Status Dates Dr. Cole Grover DO Primary Care Provider, Attending P rovider Active Team Status: Active Member Role Status Dates Dr. Cole Grover DO Primary Care Provide r, Attending Provider, Referring Provider Active Team Status: Inactive Member Role Status Dates Dr. Cole Grover DO Primary Care Provide r, Attending Provider, Referring Provider Active Team Status: Inactive Member Role Status Dates Dr. Cole Grover DO Primary Care Provider, Referring P rovider Active Dr. Kevin Rose MD Attending Provider Active Team Status: Active Member Role Status Dates Dr. Cole Grover DO Primary Care Provider Active Denise Perez Attending Provider Active Team Status: Inactive Member Role Status Dates Dr. Cole Grover DO Primary Care Provider, Referring P rovider Active Myles Johnson PHARMACOVIGILANCE SAFETY EXPERT, PHARMACOVIGILANCE SAFETY EXPERT-C Attending Provider Active Team Status: Active Member Role Status Dates Dr. Cole Grover DO Primary Care Provider Active Team Status: Inactive Member Role Status Dates Dr. Cole Grover DO Primary Care Provider Active Start: March 19, 2024 End: March 19, 2024 Dr. Cole Fast , DO Attending Provider Active St art: March 19, 2024 End: March 19, 2024 Dr. Cole Grover DO Referring Provider Active St art: March 19, 2024 End: March 19, 2024 Team Status: Inactive Member Role Status Dates Dr. Cole Grover DO Primary Care Provider Active Start: March 27, 2024 End: March 27, 2024 Dr. Cole Grover DO Attending Provider Active St art: March 27, 2024 End: March 27, 2024 Dr. Cole Grover DO Referring Provider Active St art: March 27, 2024 End: March 27, 2024 Team Status: Inactive Member Role Status Dates Dr. Cole Grover DO Primary Care Provider Active Start: June 04, 2024 End: June 04, 2024 Dr. Cole Grover DO Referring Provider Active St art: June 04, 2024 End: June 04, 2024 Myles Johnson PHARMACOVIGILANCE SAFETY EXPERT, PHARMACOVIGILANCE SAFETY EXPERT-C Attending Provider Active S tart: June 04, 2024 End: June 04, 2024 Team Status: Inactive Member Role Status Dates Dr. Cole Grover DO Primary Care Provider Active Start: June 19, 2024 End: June 19, 2024 Dr. Cole Grover DO Attending Provider Active St art: June 19, 2024 End: June 19, 2024 Dr. Cole Grover DO Referring Provider Active St art: June 19, 2024 End: June 19, 2024 Team Status: Inactive Member Role Status Dates Dr. Cole Grover DO Primary Care Provider Active Start: August 16, 2024 End: August 16, 2024 Dr. Cole Grover DO Attending Provider Active St art: August 16, 2024 End: August 16, 2024 Dr. Cole Grover DO Referring Provider Active St art: August 16, 2024 End: August 16, 2024 INFORMATION SOURCE (unrecogn ized section and content) DATE CREATED AUTHOR 12/26/2021 [facility] DATE CREATED AUTHOR AUTHOR'S ORGANIZ ATION 06/08/2022 [facility] DATE CREATED AUTHOR AUTHOR'S ORGANIZ ATION 08/25/2024 [facility] FOR RECORDS PERTAINING TO PATIENTS WHO ARE OR HAVE BEEN ENROLLED IN A CHEMICAL DEPENDENCY/SUBSTANCEABUSE PROGRAM, SOME INFORMATION MAY BE OMITTED. This clinical summary was aggregated from multiple sources. Caution should be exercised in using it in the provision of clinical care. This summary normalizes information from multiple sources, and as a consequence, information in this document may materially change the coding, format and clinical context of patient data. In addition, data may be omitted in some cases. CLINICAL DECISIONS SHOULD BE BASED ON THE PRIMARY CLINICAL RECORDS. [employer] [facility]. provides no warranty or guarantee of the accuracy or completeness of information in this document.
[2024-10-05 09:04] LABS: Hematocrit 38.7 % (37-47); Hemoglobin 13.2 g/dL (12.0-15.0); Immature Granulocytes Count 0.010 X10^3/uL (0.0-0.0); Mean Corp Hgb Conc 34.1 g/dL (32-36); Mean Corpuscular Volume 89.8 fL (81-99); Mean Platelet Vol. 10.2 fl (6.2-12.0); NRBC Flagged by Analyzer 0 % (0-5); Platelet Count 181 K/mm3 (150-450); RBC Distribution Width CV 13.2 % (11.6-14.6); RBC Distribution Width SD 43.8 fl (35.1-43.9); Red Blood Count 4.31 M/mm3 (4.2-5.4); White Blood Count 4.9 K/mm3 (4.4-11.0)
[2024-10-05 09:46] LABS: AST(SGOT) 30 U/L (<=31); Alanine Aminotransfer ALT/SGPT 14 U/L (<=34); Albumin, Serum 4.2 g/dL (3.4-4.8); Alkaline Phosphatase 64 U/L (35-104); Anion Gap 11 (5-15); BUN 25 mg/dL (4-19); BUN/Creat Ratio 30.8 RATIO (10-20); Calcium,Total 9.4 mg/dL (7.6-11.0); Carbon Dioxide 25.2 mmol/L (21.0-32.0); Chloride 105 mmol/L (98-108); Globulin 2.7 g/dL (2.2-4.2); Glucose 92 mg/dL (70-99); Potassium 4.4 mmol/L (3.3-5.1)
[2024-10-05 09:48] LABS: Vitamin D,25 Hydroxy 62.3 ng/mL (30-100)
== END | disposition home or self-care (01) ==
LOC: LAB 08:33
PROVIDERS: PCP Internal Medicine; Referring Provider Internal Medicine; Visit Provider Internal Medicine
DX: R73.09 Other abnormal glucose (principal); M81.0 Age-related osteoporosis without current pathological fracture; R79.89 Other specified abnormal findings of blood chemistry
CPT/HCPCS: 36415; 80053; 82306; 83036; 84443; 85025

== ENCOUNTER → 2024-11-20 | Outpatient (CLI) | payer MEDICARE, SELFPAY ==
--- NOTE | 2024-11-20 07:52 | BD_ITS ---
PROCEDURE: DEXA BONE DENSITY STUDY 11/20/2024 REASON FOR EXAM: F, age 84 y/o . Postmenopausal. TECHNIQUE: Procedure Code: BDDBD Modality: DX Procedure: DEXA BONE DENSITY STUDY COMPARISON: Prior study dated October 27, 2022. FINDINGS: BMD and T-SCORES Lumbar spine: 0.823 g/cm2, T-score -1.8 Levels: L1 through L4 Change from prior: Loss of 3%. Left femoral neck: 0.661 g/cm2, T-score -1.7 Femoral neck comparison data not recommended for monitoring change. Left total hip: 0.778 g/cm2, T-score -1.3 Change from prior: Improvement of 3.3%. Right femoral neck: 0.647 g/cm2, T-score -1.8 Femoral neck comparison data not recommended for monitoring change. Right total hip: 0.799 g/cm2, T-score -1.2 Change from prior: Improvement of 3.3%. The World Health Organization has defined the following categories based on bone density: Normal bone density: T-score equal to or greater than -1.0 Osteopenia: T-score between -1.0 and -2.5 Osteoporosis: T-score equal to or less than -2.5 FRAX (or Comparable) Fracture Risk Assessment: 10 Year Probability of Fracture: Major Osteoporotic Fracture: 20% Hip Fracture: 5.5% (Note: FRAX is not to be reported in setting of normal range bone density, osteoporosis on DEXA, known history of osteoporosis, prior osteoporotic hip or vertebral fracture, or for any patient undergoing pharmacological treatment for bone loss.) The National Osteoporosis Foundation (NOF) recommends pharmacological treatment for patients with a FRAX 10-year risk of 3% or higher for a hip fracture, or 20% or higher for a major osteoporotic fracture, to prevent osteoporosis and reduce fracture risk. The patient does meet the pharmacological treatment recommendations for prevention of osteoporosis. BD/Dexa Bone Density Study IMPRESSION: OSTEOPENIA. Recommend follow-up as clinically warranted. Reading Location: [place] [id number]
--- NOTE | 2024-11-20 08:30 | BI_ITS ---
EXAM: SCRN MAMM (CAD)W/CHARLOTTE BILAT DATE: 11/20/2024 CLINICAL HISTORY: F, Age 84 y/o , SCREENING Mother with breast cancer. TECHNIQUE: Procedure Code: [id number] Modality: MG Procedure: SCRN MAMM (CAD)W/CHARLOTTE BILAT COMPARISON: Prior exam(s) dated November 01, 2023.. FINDINGS: TISSUE DENSITY: The breasts are heterogeneously dense, which may obscure small masses. Bilateral Breast Mammographic Findings: No significant masses, calcifications or other abnormalities are identified. No suspicious masses, areas of developing architectural distortion, or suspicious calcifications. There has been no significant interval change. BI/SCRN MAMM (CAD)W/CHARLOTTE BILAT IMPRESSION: Stable bilateral screening mammogram. OVERALL FINAL ASSESSMENT BI-RADS 1: NEGATIVE. RECOMMENDATION: Routine annual follow-up in 1 Year A letter with findings and recommendations will be mailed to the patient. Reading Location: [place] [id number]
== END | disposition home or self-care (01) ==
PROVIDERS: PCP Internal Medicine; Referring Provider Internal Medicine; Visit Provider Internal Medicine
DX: Z12.31 Encounter for screening mammogram for malignant neoplasm of breast (principal); Z78.0 Asymptomatic menopausal state; Z80.3 Family history of malignant neoplasm of breast
CPT/HCPCS: 77063; 77067; 77080

== ENCOUNTER 2024-12-28 09:40 | Emergency (ER) | payer MEDICARE, SELFPAY ==
[2024-12-28 09:41] VITALS: BP 149/72; PULSE 76; RESP 18; TEMP 37.1; O2SAT 100; BMI 22.8
--- NOTE | 2024-12-28 10:33 | EKG12_ITS ---
Test Reason : CP Blood Pressure : */* mmHG Vent. Rate : 62 BPM Atrial Rate : 62 BPM P-R Int : 174 ms QRS Dur : 76 ms QT Int : 424 ms P-R-T Axes : -88 21 38 degrees QTcB Int : 430 ms Unusual P axis, possible ectopic atrial rhythm with Premature atrial complexes Abnormal ECG Confirmed by SYMONE CORMIER ([id number]), make up editor MARCELA ALEXANDER ([id number]) on 12/30/2024 7:09:42 AM Referred By: CAROLINA Confirmed By: SYMONE CORMIER
[2024-12-28 10:45] LABS: Hematocrit 39.0 % (37-47); Hemoglobin 13.0 g/dL (12.0-15.0); Immature Granulocytes Count 0.010 X10^3/uL (0.0-0.0); Mean Corp Hgb Conc 33.3 g/dL (32-36); Mean Corpuscular Volume 90.9 fL (81-99); Mean Platelet Vol. 10.0 fl (6.2-12.0); NRBC Flagged by Analyzer 0 % (0-5); Platelet Count 200 K/mm3 (150-450); RBC Distribution Width CV 13.3 % (11.6-14.6); RBC Distribution Width SD 44.3 fl (35.1-43.9); Red Blood Count 4.29 M/mm3 (4.2-5.4); White Blood Count 4.8 K/mm3 (4.4-11.0)
--- NOTE | 2024-12-28 10:55 | RAD_ITS ---
PROCEDURE: CHEST 1 VIEW (PORTABLE) 12/28/2024 REASON FOR EXAM: CHEST PAIN TECHNIQUE: Frontal view of the chest. COMPARISON: None FINDINGS: Cardiomediastinal silhouette is normal. No consolidation in either lung. No pleural effusion or pneumothorax. Bony thorax is intact. RAD/Chest 1 View (Portable) IMPRESSION: No Acute Findings. Reading Location: [id number]
--- NOTE | 2024-12-28 11:00 | CM.ED ---
Social Work Date of referral: 12/28/24 Reason for referral: Advanced Care Directives (ACD's)not on file. Referred by: Social Work Identification Upon review of records, Therapeutic Case Manager discovered that ACD's all are already uploaded in patient's electronic medical records and no additional follow up is needed at this time. Lavinia Longo, APPEALS ASSISTANT, CPO
--- OUTSIDE RECORDS SUMMARY | 2024-12-28 11:09 | XMS RPT_ITS | CCD ---
Author Organization [facility] Care Team Providers Care Aesthetician Name Role Phone Fast, Gia A Unavailable Jeancarlos Felix Unavailable Hussain Farrar Unavailable Sami Tejeda Unavailable Manchak, Reina Unavailable Unavailable Lora Mazariegos Unavailable Unavailable Unavailable Unavailable Fast, Gia A Unavailable Jeancarlos Felix Unavailable Hussain Farrar Unavailable Sami Tejeda Unavailable Manchak, Reina Unavailable Unavailable Unavailable Unavailable Raul Avalos Unavailable Sami Tejeda Unavailable Slarb, Teresita Unavailable Unavailable Manchak, Reina Unavailable Unavailable Katarina Easley Unavailable Unavailable Jason Madrigal Unavailable Fast DO, Gia A Unavailable Dr. Raul Avalos Unavailable Dr. Jeancarlos Felix Unavailable Jason Madrigal MD Unavailable Hussain Farrar MD Unavailable Sami Tejeda MD Unavailable Manchak JADIEL, Reina Unavailable Unavailable Unavailable Unavailable Fast DO, Gia A Unavailable Dr. Raul Avalos Unavailable Dr. Jeancarlos Felix Unavailable Jason Madrigal MD Unavailable Hussain Farrar MD Unavailable Sami Tejeda MD Unavailable Recommend follow-up as clinically warranted. Reading Location: [place] [address] CC: Dr. Gia Grover DO ~ Health Care Marketing Specialist: Signed [facility] Breast imaging reportOrdered By: Graham Rivera on 11-20-2024 Study report [facility] Imaging Services [address] [place], [place] [address] SCRN MAMM (CAD)W/CHARLOTTE BILAT MR#: [id number] Acct: [id number] Name: BREANNA PURCELL Rep #: [id number] : 1940 F 84 From: Ector Rivera MD PCP: Dr. Gia Grover DO Status: REG CLI Study:SCRN MAMM (CAD)W/CHARLOTTE BILAT Date of Exa m: 11/20/24 Exam# [id number] Ordering Dr: Hamida Grover ra, DO EXAM: SCRN MAMM (CAD)W/CHARLOTTE BILAT DATE: 11/20/2024 CLINICAL HISTORY: F, Age 84 y/o , SCREENING Mother with breast cancer. TECHNIQUE: Procedure Code: BISMWCADBTOM Modality: MG Procedure: SCRN MAMM (CAD)W/CHARLOTTE BILAT COMPARISON: Prior exam(s) dated November 01, 2023.. FINDINGS: TISSUE DENSITY: The breasts are heterogeneously dense, which may obscure small masses. Bilateral Breast Mammographic Findings: No significant masses, calcifications or other abnormalities are identified. No suspicious masses, areas of developing architectural distortion, or suspicious calcifications. There has been no significant interval change. BI/SCRN MAMM (CAD)W/CHARLOTTE BILAT IMPRESSION: Stable bilateral screening mammogram. OVERALL FINAL ASSESSMENT BI-RADS 1: NEGATIVE. RECOMMENDATION: Routine annual follow-up in 1 Year A letter with findings and recommendations will be mailed to the patient. Reading Location: [facility] CC: Dr. Gia Grover DO ~ Health Care Marketing Specialist: Signed [facility] Dexa Bone Density Studyon Dexa Bone Density Study [facility] Imaging Services [address] [place] [address] Dexa Bone Density Study MR#: [id number] Acct: [id number] Name: BREANNA PURCELL Rep #: [id number] : 1940 F 84 From: Graham nix MD PCP: Dr. Gia Grover DO Status: REG CLI Study: Dexa Bone Density Study Date of Exam: 11/20/24 Exam# [id number] Ordering Dr: Gia Grover DO PROCEDURE: DEXA BONE DENSITY STUDY 11/20/2024 REASON FOR EXAM: F, age 84 y/o . Postmenopausal. TECHNIQUE: Procedure Code: BDDBD Modality: DX Procedure: DEXA BONE DENSITY STUDY COMPARISON: Prior study dated October 27, 2022. FINDINGS: BMD and T-SCORES Lumbar spine: 0.823 g/cm2, T-score -1.8 Levels: L1 through L4 Change from prior: Loss of 3%. Left femoral neck: 0.661 g/cm2, T-score -1.7 Femoral neck comparison data not recommended for monitoring change. Left total hip: 0.778 g/cm2, T-score -1.3 Change from prior: Improvement of 3.3%. Right femoral neck: 0.647 g/cm2, T-score -1.8 Femoral neck comparison data not recommended for monitoring change. Right total hip: 0.799 g/cm2, T-score -1.2 Change from prior: Improvement of 3.3%. The World Health Organization has defined the following categories based on bone density: Normal bone density: T-score equal to or greater than -1.0 Osteopenia: T-score between -1.0 and -2.5 Osteoporosis: T-score equal to or less than -2.5 FRAX (or Comparable) Fracture Risk Assessment: 10 Year Probability of Fracture: Major Osteoporotic Fracture: 20% Hip Fracture: 5.5% (Note: FRAX is not to be reported in setting of normal range bone density, osteoporosis on DEXA, known history of osteoporosis, prior osteoporotic hip or vertebral fracture, or for any patient undergoing pharmacological treatment for bone loss.) The National Osteoporosis Foundation (NOF) recommends pharmacological treatment for patients with a FRAX 10-year risk of 3% or higher for a hip fracture, or 20% or higher for a major osteoporotic fracture, to prevent osteoporosis and reduce fracture risk. The patient does meet the pharmacological treatment recommendations for prevention of osteoporosis. BD/Dexa Bone Density Study IMPRESSION: OSTEOPENIA. Recommend follow-up as clinically warranted. Reading Location: [place] [address] CC: Dr. Gia Grover DO Health Care Marketing Specialist: Signed Normal [facility] SCRN MAMM (CAD)W/CHARLOTTE BILATo n 11-20-2024 SCRN MAMM (CAD)W/CHARLOTTE BILAT [facility] Imaging Services [address] [place], [place] [address] SCRN MAMM (CAD)W/CHARLOTTE BILAT MR#: [id number] Acct: [id number] Name: BREANNA PURCELL Rep #: [id number] : 1940 F 84 From: Graham nix MD PCP: Dr. Gia Grover DO Status: REG CL Study: SCRN MAMM (CAD)W/CHARLOTTE BILAT Date of Exam: 11/04 09/27 Exam# [id number] Ordering Dr: Gia Grover DO EXAM: SCRN MAMM (CAD)W/CHARLOTTE BILAT DATE: 11/20/2024 CLINICAL HISTORY: F, Age 84 y/o , SCREENING Mother with breast cancer. TECHNIQUE: Procedure Code: BISMWCADBTOM Modality: MG Procedure: SCRN MAMM (CAD)W/CHARLOTTE BILAT COMPARISON: Prior exam(s) dated November 01, 2023.. FINDINGS: TISSUE DENSITY: The breasts are heterogeneously dense, which may obscure small masses. Bilateral Breast Mammographic Findings: No significant masses, calcifications or other abnormalities are identified. No suspicious masses, areas of developing architectural distortion, or suspicious calcifications. There has been no significant interval change. BI/SCRN MAMM (CAD)W/CHARLOTTE BILAT IMPRESSION: Stable bilateral screening mammogram. OVERALL FINAL ASSESSMENT BI-RADS 1: NEGATIVE. RECOMMENDATION: Routine annual follow-up in 1 Year A letter with findings and recommendations will be mailed to the patient. Reading Location: [facility] CC: Dr. Gia Grover DO Health Care Marketing Specialist: Signed Normal [facility] HIP, UNI W/ Pelvis 2-3 Views on 10-11-2024 HIP, UNI W/ Pelvis 2-3 Views [facility] Imaging Services [address] [place] [address] [id number] HIP, UNI W/ Pelvis 2-3 Views MR#: [id number] Acct: [id number] Name: BREANNA PURCELL Rep #: [id number] : 1940 F 84 From: Rodolfo Mckeon PCP: Dr. Gia Grover DO Status: DEP AMB Study: HIP, UNI W/ Pelvis 2-3 Views Date of Exam: 10/28 Exam# [id number] Ordering Dr: Gia Grover DO PROCEDURE: HIP, UNI W/ PELVIS 2-3 VIEWS 10/11/2024 REASON FOR EXAM: LUMBAR RADICULOPATHY, PAIN GOES TO RIGHT HIP TECHNIQUE: HIP, UNI W/ PELVIS 2-3 VIEWS Laterality: Right COMPARISON: Bilateral hip and pelvis series 01/13/2022. 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 Mild sacroiliac joint degenerative changes are seen. Minimal right and at least mild left hip joint degenerative changes are noted, with mild superior joint space narrowing. No evidence of femoral head osteonecrosis. No acute fracture or dislocation is seen. Reading Location: [facility] CC: Dr. Gia Grover DO Health Care Marketing Specialist: Signed Normal [facility] Absolute lymphocyte countOrd ered By: Gia Grover on 10-05-2024 Lymphocytes Auto (Unsp spec) [#/Vol] 1.81 10*3/uL 0.83-4.51 [facility] Absolute neutrophil countOrd ered By: Gia Fast on 10-05-2024 Neutrophils (Bld) [#/Vol] 2.4 10*3/uL 2.0-7.7 [facility] Anion gap in Serum or Plasma Ordered By: Gia Fast on 10-05-2024 Anion gap [Moles/Vol] 11 mmol/L 5-15 [facility] Automated lymphocyte count a s percentage of total leukocytesOrdered By: Gia Fast on 10-05-2024 Lymphocytes/100 WBC Auto (Unsp spec) 36.7 % 19- [facility] BUN/creatinine ratioOrdered By: Gia Fast on 10-05-2024 Urea nitrogen/Creatinine [Mass ratio] 30.8 mg/mg High 10-20 [facility] Basophil percentageOrdered B y: Gia Fast on 10-05-2024 Basophils/100 WBC (Bld) 1.2 % High 0-1 [facility] Bilirubin, totalOrdered By: Gia Fast on 10-05-2024 Bilirubin [Mass/Vol] 0.66 mg/dL 0.00-1.30 [facility] CBC W/Diff, Automatedon Absolute Lymph 1.81 X10 3/uL Normal 0.83-4.51 [facility] Comment on above: Performed By: #### L 100.0100, L501.9985, L506.1000, L500.4050 #### [facility] Laboratory [address] [place], [address] Absolute Neut 2.4 X10 3/uL Normal 2.0-7.7 [facility] Comment on above: Performed By: #### L 100.0100, L501.9985, L506.1000, L500.4050 #### [facility] Laboratory [address] [place], [address] Basophils/100 WBC (Bld) 1.2 % High 0-1 [facility] Comment on above: Performed By: #### L 100.0100, L501.9985, L506.1000, L500.4050 #### [facility] Laboratory [address] [place], [address] Eosinophils/100 WBC (Bld) 4.1 % Normal 0-5 [facility] Comment on above: Performed By: #### L 100.0100, L501.9985, L506.1000, L500.4050 #### [facility] Laboratory [address] [place], [address] Erythrocyte distribution width (RBC) [Ratio] 13.2 % Normal 11.6-14.6 [facility] Comment on above: Performed By: #### L 100.0100, L501.9985, L506.1000, L500.4050 #### [facility] Laboratory [address] [place], [address] Hematocrit (Bld) [Volume fraction] 38.7 % Normal 37-47 [facility] Comment on above: Performed By: #### L 100.0100, L501.9985, L506.1000, L500.4050 #### [facility] Laboratory [address] [place], [address] Hemoglobin (Bld) [Mass/Vol] 13.2 g/dL Normal 12.0-15.0 [facility] Comment on above: Performed By: #### L 100.0100, L501.9985, L506.1000, L500.4050 #### [facility] Laboratory [address] [place], [address] IG% 0.200 Normal 0.0-0.9 [facility] Comment on above: Result Comment: IG% - Immature Granulocytes (promyelocytes, myelocytes and metamyelocytes) > 1% indicates that a LEFT SHIFT is Present. Performed By: #### L 100.0100, L501.9985, L506.1000, L500.4050 #### [facility] Laboratory [address] [place], [address] Lymphocytes/100 WBC (Bld) 36.7 % Normal 19-41 [facility] Comment on above: Performed By: #### L 100.0100, L501.9985, L506.1000, L500.4050 #### [facility] Laboratory [address] [place], [address] MCH (RBC) [Entitic mass] 30.6 pg Normal 27.0-32.0 [facility] Comment on above: Performed By: #### L 100.0100, L501.9985, L506.1000, L500.4050 #### [facility] Laboratory [address] [place], [address] MCHC (RBC) [Mass/Vol] 34.1 g/dL Normal 32-36 [facility] Comment on above: Performed By: #### L 100.0100, L501.9985, L506.1000, L500.4050 #### [facility] Laboratory [address] [place], [address] MCV (RBC) [Entitic vol] 89.8 fL Normal 81-99 [facility] Comment on above: Performed By: #### L 100.0100, L501.9985, L506.1000, L500.4050 #### [facility] Laboratory [address] [place], [address] Monocytes/100 WBC (Bld) 8.9 % Normal 0-10 [facility] Comment on above: Performed By: #### L 100.0100, L501.9985, L506.1000, L500.4050 #### [facility] Laboratory [address] [place], [address] Neutrophils/100 WBC (Bld) 48.9 % Normal 47-70 [facility] Comment on above: Performed By: #### L 100.0100, L501.9985, L506.1000, L500.4050 #### [facility] Laboratory [address] [place], [address] Nucleated RBC (Bld) [#/Vol] 0 10*3/uL Normal 0-5 [facility] Comment on above: Performed By: #### L 100.0100, L501.9985, L506.1000, L500.4050 #### [facility] Laboratory [address] [place], [address] Platelet mean volume (Bld) [Entitic vol] 10.2 fL Normal 6.2-12.0 [facility] Comment on above: Performed By: #### L 100.0100, L501.9985, L506.1000, L500.4050 #### [facility] Laboratory [address] [place], [address] Platelets (Bld) [#/Vol] 181 10*3/uL Normal 150-450 [facility] Comment on above: Performed By: #### L 100.0100, L501.9985, L506.1000, L500.4050 #### [facility] Laboratory [address] [place], [address] RBC (Bld) [#/Vol] 4.31 10*6/uL Normal 4.2-5.4 [facility] Comment on above: Performed By: #### L 100.0100, L501.9985, L506.1000, L500.4050 #### [facility] Laboratory [address] [place], [address] RDW SD 43.8 fl Normal 35.1-43.9 [facility] Comment on above: Performed By: #### L 100.0100, L501.9985, L506.1000, L500.4050 #### [facility] Laboratory [address] [place], [address] WBC (Bld) [#/Vol] 4.9 10*3/uL Normal 4.4-11.0 [facility] Comment on above: Performed By: #### L 100.0100, L501.9985, L506.1000, L500.4050 #### [facility] Laboratory [address] [place], [address] Carbon dioxide, total [Moles /volume] in Central venous bloodOrdered By: Gia Fast on 10-05-2024 CO2 [Moles/Vol] 25.2 mmol/L 21.0-32.0 [facility] Chloride assayOrdered By: De bra Fast on 10-05-2024 Chloride [Moles/Vol] 105 mmol/L 98-108 [facility] Comprehensive Metabolic Prof ilon 10-05-2024 Albumin [Mass/Vol] 4.2 g/dL Normal 3.4-4.8 [facility] Comment on above: Performed By: #### L 100.0100, L501.9985, L506.1000, L500.4050 #### [facility] Laboratory [address] [place], [address] Albumin/Globulin [Mass ratio] 1.6 {ratio} Normal 0.9-2.4 [facility] Comment on above: Performed By: #### L 100.0100, L501.9985, L506.1000, L500.4050 #### [facility] Laboratory [address] [place], [address] ALK PHOS 64 U/L Normal 35-104 [facility] Comment on above: Performed By: #### L 100.0100, L501.9985, L506.1000, L500.4050 #### [facility] Laboratory [address] [place], [address] ALT [Catalytic activity/Vol] 14 U/L Normal <=34 [facility] Comment on above: Performed By: #### L 100.0100, L501.9985, L506.1000, L500.4050 #### [facility] Laboratory [address] [place], [address] AST [Catalytic activity/Vol] 30 U/L Normal <=31 [facility] Comment on above: Performed By: #### L 100.0100, L501.9985, L506.1000, L500.4050 #### [facility] Laboratory [address] [place], [address] Bilirubin [Mass/Vol] 0.66 mg/dL Normal 0.00-1.30 [facility] Comment on above: Performed By: #### L 100.0100, L501.9985, L506.1000, L500.4050 #### [facility] Laboratory [address] [place], [address] BUN/CRE 30.8 RATIO High 10-20 [facility] Comment on above: Performed By: #### L 100.0100, L501.9985, L506.1000, L500.4050 #### [facility] Laboratory [address] [place], [address] Calcium [Mass/Vol] 9.4 mg/dL Normal 7.6-11.0 [facility] Comment on above: Performed By: #### L 100.0100, L501.9985, L506.1000, L500.4050 #### [facility] Laboratory [address] [place], [address] Chloride [Moles/Vol] 105 mmol/L Normal 98-108 [facility] Comment on above: Performed By: #### L 100.0100, L501.9985, L506.1000, L500.4050 #### [facility] Laboratory [address] [place], [address] CO2 [Moles/Vol] 25.2 mmol/L Normal 21.0-32.0 [facility] Comment on above: Performed By: #### L 100.0100, L501.9985, L506.1000, L500.4050 #### [facility] Laboratory [address] [place], [address] Creatinine [Mass/Vol] 0.81 mg/dL Normal 0.70-1.20 [facility] Comment on above: Performed By: #### L 100.0100, L501.9985, L506.1000, L500.4050 #### [facility] Laboratory [address] [place], [address] GAP 11 Normal 5-15 [facility] Comment on above: Performed By: #### L 100.0100, L501.9985, L506.1000, L500.4050 #### [facility] Laboratory [address] [place], [address] GFR/1.73 sq M.predicted among non-blacks MDRD (S/P/Bld) [Vol rate/Area] 72 mL/min/{1.73_m2} Normal >60 [facility] Comment on above: Result Comment: mL/m in/1.73m2 CKD-EPI Creatinine Equation (2020) Performed By: #### L 100.0100, L501.9985, L506.1000, L500.4050 #### [facility] Laboratory [address] [place], [address] Globulin (S) [Mass/Vol] 2.7 g/dL Normal 2.2-4.2 [facility] Comment on above: Performed By: #### L 100.0100, L501.9985, L506.1000, L500.4050 #### [facility] Laboratory [address] [place], [address] Glucose [Mass/Vol] 92 mg/dL Normal 70-99 [facility] Comment on above: Performed By: #### L 100.0100, L501.9985, L506.1000, L500.4050 #### [facility] Laboratory [address] [place], [address] Potassium [Moles/Vol] 4.4 mmol/L Normal 3.3-5.1 [facility] Comment on above: Performed By: #### L 100.0100, L501.9985, L506.1000, L500.4050 #### [facility] Laboratory [address] [place], [address] Sodium [Moles/Vol] 141 mmol/L Normal 133-145 [facility] Comment on above: Performed By: #### L 100.0100, L501.9985, L506.1000, L500.4050 #### [facility] Laboratory [address] [place], [address] T PROT 6.9 g/dL Normal 5.9-8.4 [facility] Comment on above: Performed By: #### L 100.0100, L501.9985, L506.1000, L500.4050 #### [facility] Laboratory [address] [place], [address] Urea nitrogen [Mass/Vol] 25 mg/dL High 4-19 [facility] Comment on above: Performed By: #### L 100.0100, L501.9985, L506.1000, L500.4050 #### [facility] Laboratory [address] [place], [address] Eosinophil percentageOrdered By: Gia Fast on 10-05-2024 Eosinophils/100 WBC (Bld) 4.1 % 0-5 [facility] Erythrocyte distribution wid th ratioOrdered By: Gia Fast on 10-05-2024 Erythrocyte distribution width (RBC) [Ratio] 13.2 % 11.6-14.6 [facility] Erythrocyte distribution wid th standard deviationOrdered By: Gia Fast on 10-05-2024 Erythrocyte distribution width (RBC) [Ratio] 43.8 fl 35.1-43.9 [facility] Glomerular filtration rate ( GFR) estimation/1.73 sq m using serum, plasma, or whole bOrdered By: Gia Fast on 10-05-2024 GFR/1.73 sq M.predicted among non-blacks MDRD (S/P/Bld) [Vol rate/Area] 72 mL/min/{1.73_m2} >60 [facility] Comment on above: mL/min/1.73m2 CKD-EP I Creatinine Equation (2020) Hematocrit Auto (Bld) [Volum e fraction]Ordered By: Gia Grover on 10-05-2024 Hematocrit (Bld) [Volume fraction] 38.7 % 37-47 [facility] Hemoglobin A1con 10-05-2024 HbA1c (Bld) [Mass fraction] 5.7 % Normal <=5.6 [facility] Comment on above: Result Comment: Norm al < 5.7 % Prediabetic 5.7 - 6.4 % Diabetic >or= 6.5 % Please note range changes. Performed By: #### L 100.0100, L501.9985, L506.1000, L500.4050 #### [facility] Laboratory [address] [place], [address] Hemoglobin A1c percentageOrd ered By: Gia Grover on 10-05-2024 HbA1c (Bld) [Mass fraction] 5.7 % <5.7 [facility] Comment on above: Normal < 5.7 % Predi abetic 5.7 - 6.4 % Diabetic >or= 6.5 % Please note range changes. Hemoglobin measurementOrdere d By: Gia Grover on 10-05-2024 Hemoglobin (Bld) [Mass/Vol] 13.2 g/dL 12.0-15.0 [facility] Immature granulocytes/100 WB C Auto (Bld)Ordered By: Gia Grover on 10-05-2024 Immature granulocytes/100 WBC (Bld) 0.200 % 0.0-0.9 [facility] Comment on above: IG% - Immature Granu locytes (promyelocytes, myelocytes and metamyelocytes) > 1% indicates that a LEFT SHIFT is Present. Laboratory - Chemistry and C hemistry - challengeOrdered By: Gia Grover on 10-05-2024 AST [Catalytic activity/Vol] 30 U/L <32 [facility] MCV (mean corpuscular volume ) determinationOrdered By: Gia Grover on 10-05-2024 MCV (RBC) [Entitic vol] 89.8 fL 81-99 [facility] Mean corpuscular hemoglobin (MCH) determinationOrdered By: Gia Fast on 10-05-2024 MCH (RBC) [Entitic mass] 30.6 pg 27.0-32.0 [facility] Mean corpuscular hemoglobin concentration (MCHC) determinationOrdered By: Gia Fast on 10-05-2024 MCHC (RBC) [Mass/Vol] 34.1 g/dL 32-36 [facility] Mean platelet volume determi nationOrdered By: Gia Fast on 10-05-2024 Platelet mean volume (Bld) [Entitic vol] 10.2 fL 6.2-12.0 [facility] Monocyte percentageOrdered B y: Gia Fast on 10-05-2024 Monocytes/100 WBC (Bld) 8.9 % 0-10 [facility] Neutrophil percentageOrdered By: Gia Fast on 10-05-2024 Neutrophils/100 WBC (Bld) 48.9 % 47-70 [facility] Nucleated red blood cell per centageOrdered By: on 10-05-2024 Nucleated RBC/100 WBC (Bld) [Ratio] 0 % 0-5 [facility] Platelet countOrdered By: De benny on 10-05-2024 Platelets (Bld) [#/Vol] 181 10*3/uL 150-450 [facility] Potassium measurement (mass/ volume)Ordered By: Gia Fast on 10-05-2024 Potassium (Unsp spec) [Mass/Vol] 4.4 mmol/L 3.3-5.1 [facility] RBC Auto (Bld) [#/Vol]Ordere d By: Gia Fast on 10-05-2024 RBC (Bld) [#/Vol] 4.31 10*6/uL 4.2-5.4 [facility] Serum creatinine measurement (mass/volume)Ordered By: Gia Fast on 10-05-2024 Creatinine [Mass/Vol] 0.81 mg/dL 0.70-1.20 [facility] Serum globulin measurementOr dered By: Gia Fast on 10-05-2024 Globulin (S) [Mass/Vol] 2.7 g/dL 2.2-4.2 [facility] Serum glucose measurement (m ass/volume)Ordered By: Gia Fast on 10-05-2024 Glucose [Mass/Vol] 92 mg/dL 70-99 [facility] Serum or plasma alanine mcbride otransferase (ALT) measurementOrdered By: Gia Fast on 10-05-2024 ALT [Catalytic activity/Vol] 14 U/L <35 [facility] Serum or plasma albumin franklin urement (mass/volume)Ordered By: Gia Fast on 10-05-2024 Albumin [Mass/Vol] 4.2 g/dL 3.4-4.8 [facility] Serum or plasma albumin/glob ulin mass ratioOrdered By: Gia Fast on 10-05-2024 Albumin/Globulin [Mass ratio] 1.6 {ratio} 0.9-2.4 [facility] Serum or plasma alkaline sandee sphatase measurementOrdered By: Gia Fast on 10-05-2024 ALP [Catalytic activity/Vol] 64 U/L 35-104 [facility] Serum or plasma calcium franklin urement (mass/volume)Ordered By: Gia Fast on 10-05-2024 Calcium [Mass/Vol] 9.4 mg/dL 7.6-11.0 [facility] Serum or plasma urea nitroge n measurement (mass/volume)Ordered By: Gia Fast on 10-05-2024 Urea nitrogen [Mass/Vol] 25 mg/dL High 4-19 [facility] Sodium levelOrdered By: Debr a Fast on 10-05-2024 Sodium [Moles/Vol] 141 mmol/L 133-145 [facility] TSH DL <= 0.005 mIU/L QnOrde red By: Gia Fast on 10-05-2024 TSH Qn 3.660 uIU/mL 0.300-4.20 0 [facility] Thyroid Stim Hormone (TSH)on 10-05-2024 TSH 3.660 uIU/mL Normal 0.300-4.20 0 [facility] Comment on above: Performed By: #### L 100.0100, L501.9985, L506.1000, L500.4050 #### [facility] Laboratory [facility] [place], [address] Total proteinOrdered By: Hamida ra Fast on 10-05-2024 Protein [Mass/Vol] 6.9 g/dL 5.9-8.4 [facility] Vitamin D,25 Hydroxyon 10-05 Vitamin D 25-OH 62.3 ng/mL Normal 30-100 [facility] Comment on above: Result Comment: Dina min D Status Deficiency: <20 ng/mL (50nmol/L) Insufficiency: 20-30 ng/mL (50-75 nmol/L) Sufficiency: 30-100 ng/mL (75-250 nmol/L) Toxicity: >100 ng/mL (>250 nmol/L) Performed By: #### L 100.0100, L501.9985, L506.1000, L500.4050 #### [facility] Laboratory [address] [place], [address] White blood cell (WBC) count Ordered By: Gia Grover on 10-05-2024 WBC (Bld) [#/Vol] 4.9 10*3/uL 4.4-11.0 [facility] Microalb:Creat Ratio,Random URon 08-22-2024 MALB:CREAT 10.2 mg/g CRE Normal [facility] Comment on above: Result Comment: AMENDED REPORT 08/22/24 1433 MALB:CREAT previously reported as: 102.3 mg/g CRE Performed By: #### L 100.0100, L501.9985, L506.1000, L500.4050 #### [facility] Laboratory [address] [place], [address] Free T3on 08-16-2024 Free T3 [Mass/Vol] 2.6 pg/mL Normal 2.18-3.98 [facility] Comment on above: Performed By: #### L 501.9520, L506.0400, L501.79327 #### [facility] Laboratory [address] [place], [address] Free K0Osiuysp By: Gia doshi on 08-16-2024 Free T3 [Mass/Vol] 2.6 pg/mL 2.18-3.98 [facility] T4 Free Directon 08-16-2024 T4 FREE DIRECT 0.90 ng/dL Normal 0.76-1.46 [facility] Comment on above: Performed By: #### L 501.9520, L506.0400, L501.60349 #### [facility] Laboratory [address] [place], [place], [address] T4 freeOrdered By: Gia Fas t on 08-16-2024 Free T4 [Mass/Vol] 0.90 ng/dL 0.76-1.46 [facility] TSH DL <= 0.005 mIU/L QnOrde red By: Gia Fast on 08-16-2024 TSH Qn 2.330 uIU/mL 0.300-4.20 0 [facility] Thyroid Stim Hormone (TSH)on 08-16-2024 TSH 2.330 uIU/mL Normal 0.300-4.20 0 [facility] Comment on above: Performed By: #### L 501.9520, L506.0400, L501.65511 #### [facility] Laboratory [address] [place], [place], [id number] Absolute lymphocyte countOrd ered By: Gia Fast on 06-19-2024 Lymphocytes Auto (Unsp spec) [#/Vol] 1.60 10*3/uL 0.83-4.51 [facility] Absolute neutrophil countOrd ered By: Gia Fast on 06-19-2024 Neutrophils (Bld) [#/Vol] 2.2 10*3/uL 2.0-7.7 [facility] Albumin DL <= 20 mg/L (U) [M ass/Vol]Ordered By: Gia Fast on 06-19-2024 Urine Random Microalbumin 13.5 mg/L NO RANGE EST. [facility] Anion gap in Serum or Plasma Ordered By: Gia Fast on 06-19-2024 Anion gap [Moles/Vol] 9 mmol/L 5-15 [facility] Automated lymphocyte count a s percentage of total leukocytesOrdered By: Gia Fast on 06-19-2024 Lymphocytes/100 WBC Auto (Unsp spec) 34.5 % 19-41 [facility] BUN/creatinine ratioOrdered By: Gia Fast on 06-19-2024 Urea nitrogen/Creatinine [Mass ratio] 31.0 mg/mg High 10-20 [facility] Basophil percentageOrdered B y: Gia Fast on 06-19-2024 Basophils/100 WBC (Bld) 1.1 % High 0-1 [facility] Bilirubin, totalOrdered By: Gia Fast on 06-19-2024 Bilirubin [Mass/Vol] 0.60 mg/dL 0.00-1.30 [facility] CBC W/Diff, Automatedon 06-04 Absolute Lymph 1.60 X10 3/uL Normal 0.83-4.51 [facility] Comment on above: Performed By: #### L 100.0100, L501.9985, L506.1000, L500.4050 #### [facility] Laboratory [address] [place], [address] Absolute Neut 2.2 X10 3/uL Normal 2.0-7.7 [facility] Comment on above: Performed By: #### L 100.0100, L501.9985, L506.1000, L500.4050 #### [facility] Laboratory [address] [place], [address] Basophils/100 WBC (Bld) 1.1 % High 0-1 [facility] Comment on above: Performed By: #### L 100.0100, L501.9985, L506.1000, L500.4050 #### [facility] Laboratory [address] [place], [address] Eosinophils/100 WBC (Bld) 4.7 % Normal 0-5 [facility] Comment on above: Performed By: #### L 100.0100, L501.9985, L506.1000, L500.4050 #### [facility] Laboratory [address] [place], [address] Erythrocyte distribution width (RBC) [Ratio] 13.6 % Normal 11.6-14.6 [facility] Comment on above: Performed By: #### L 100.0100, L501.9985, L506.1000, L500.4050 #### [facility] Laboratory [address] [place], [address] Hematocrit (Bld) [Volume fraction] 38.5 % Normal 37-47 [facility] Comment on above: Performed By: #### L 100.0100, L501.9985, L506.1000, L500.4050 #### [facility] Laboratory [address] [place], [address] Hemoglobin (Bld) [Mass/Vol] 12.7 g/dL Normal 12.0-15.0 [facility] Comment on above: Performed By: #### L 100.0100, L501.9985, L506.1000, L500.4050 #### [facility] Laboratory [address] [place], [address] IG% 0.200 Normal 0.0-0.9 [facility] Comment on above: Result Comment: IG% - Immature Granulocytes (promyelocytes, myelocytes and metamyelocytes) > 1% indicates that a LEFT SHIFT is Present. Performed By: #### L 100.0100, L501.9985, L506.1000, L500.4050 #### [facility] Laboratory [address] [place], [address] Lymphocytes/100 WBC (Bld) 34.5 % Normal 19-41 [facility] Comment on above: Performed By: #### L 100.0100, L501.9985, L506.1000, L500.4050 #### [facility] Laboratory [address] [place], [address] MCH (RBC) [Entitic mass] 30.3 pg Normal 27.0-32.0 [facility] Comment on above: Performed By: #### L 100.0100, L501.9985, L506.1000, L500.4050 #### [facility] Laboratory [address] [place], [address] MCHC (RBC) [Mass/Vol] 33.0 g/dL Normal 32-36 [facility] Comment on above: Performed By: #### L 100.0100, L501.9985, L506.1000, L500.4050 #### [facility] Laboratory [address] [place], [address] MCV (RBC) [Entitic vol] 91.9 fL Normal 81-99 [facility] Comment on above: Performed By: #### L 100.0100, L501.9985, L506.1000, L500.4050 #### [facility] Laboratory [address] [place], [address] Monocytes/100 WBC (Bld) 11.6 % High 0-10 [facility] Comment on above: Performed By: #### L 100.0100, L501.9985, L506.1000, L500.4050 #### [facility] Laboratory [address] [place], [address] Neutrophils/100 WBC (Bld) 47.9 % Normal 47-70 [facility] Comment on above: Performed By: #### L 100.0100, L501.9985, L506.1000, L500.4050 #### [facility] Laboratory [address] [place], [place], Nucleated RBC (Bld) [#/Vol] 0 10*3/uL Normal 0-5 [facility] Comment on above: Performed By: #### L 100.0100, L501.9985, L506.1000, L500.4050 #### [facility] Laboratory [address] [place], [address] Platelet mean volume (Bld) [Entitic vol] 10.4 fL Normal 6.2-12.0 [facility] Comment on above: Performed By: #### L 100.0100, L501.9985, L506.1000, L500.4050 #### [facility] Laboratory [address] [place], [address] Platelets (Bld) [#/Vol] 180 10*3/uL Normal 150-450 [facility] Comment on above: Performed By: #### L 100.0100, L501.9985, L506.1000, L500.4050 #### [facility] Laboratory [address] [place], [address] RBC (Bld) [#/Vol] 4.19 10*6/uL Low 4.2-5.4 [facility] Comment on above: Performed By: #### L 100.0100, L501.9985, L506.1000, L500.4050 #### [facility] Laboratory [address] [place], [address] RDW SD 46.3 fl High 35.1-43.9 [facility] Comment on above: Performed By: #### L 100.0100, L501.9985, L506.1000, L500.4050 #### [facility] Laboratory [address] [place], [address] WBC (Bld) [#/Vol] 4.6 10*3/uL Normal 4.4-11.0 [facility] Comment on above: Performed By: #### L 100.0100, L501.9985, L506.1000, L500.4050 #### [facility] Laboratory [address] [place], [address] Calculated very low density lipoprotein (VLDL) cholesterol measurementOrdered By: Gia Fast on 06-19-2024 Calculated very low density lipoprotein (VLDL) cholesterol measurement 7 mg/dL 5-40 [facility] VLDL Cholesterol 7 mg/dL 5-40 [facility] Carbon dioxide, total [Moles /volume] in Central venous bloodOrdered By: Gia Fast on 06-19-2024 CO2 [Moles/Vol] 25.4 mmol/L 21.0-32.0 [facility] Chloride assayOrdered By: De bra Fast on 06-19-2024 Chloride [Moles/Vol] 106 mmol/L 98-108 [facility] Comprehensive Metabolic Prof ilon 06-19-2024 Albumin [Mass/Vol] 4.0 g/dL Normal 3.4-4.8 [facility] Comment on above: Performed By: #### L 100.0100, L501.9985, L506.1000, L500.4050 #### [facility] Laboratory [address] [place], [address] Albumin/Globulin [Mass ratio] 1.5 {ratio} Normal 0.9-2.4 [facility] Comment on above: Performed By: #### L 100.0100, L501.9985, L506.1000, L500.4050 #### [facility] Laboratory [address] [place], [address] ALK PHOS 63 U/L Normal 35-104 [facility] Comment on above: Performed By: #### L 100.0100, L501.9985, L506.1000, L500.4050 #### [facility] Laboratory [address] [place], [address] ALT [Catalytic activity/Vol] 14 U/L Normal <=34 [facility] Comment on above: Performed By: #### L 100.0100, L501.9985, L506.1000, L500.4050 #### [facility] Laboratory [address] [place], [address] AST [Catalytic activity/Vol] 31 U/L Normal <=31 [facility] Comment on above: Performed By: #### L 100.0100, L501.9985, L506.1000, L500.4050 #### [facility] Laboratory [address] [place], [address] Bilirubin [Mass/Vol] 0.60 mg/dL Normal 0.00-1.30 [facility] Comment on above: Performed By: #### L 100.0100, L501.9985, L506.1000, L500.4050 #### [facility] Laboratory [address] [place], [address] BUN/CRE 31.0 RATIO High 10-20 [facility] Comment on above: Performed By: #### L 100.0100, L501.9985, L506.1000, L500.4050 #### [facility] Laboratory [address] [place], [address] Calcium [Mass/Vol] 9.2 mg/dL Normal 7.6-11.0 [facility] Comment on above: Performed By: #### L 100.0100, L501.9985, L506.1000, L500.4050 #### [facility] Laboratory [address] [place], [address] Chloride [Moles/Vol] 106 mmol/L Normal 98-108 [facility] Comment on above: Performed By: #### L 100.0100, L501.9985, L506.1000, L500.4050 #### [facility] Laboratory [address] [place], [address] CO2 [Moles/Vol] 25.4 mmol/L Normal 21.0-32.0 [facility] Comment on above: Performed By: #### L 100.0100, L501.9985, L506.1000, L500.4050 #### [facility] Laboratory [address] [place], [address] Creatinine [Mass/Vol] 0.84 mg/dL Normal 0.70-1.20 [facility] Comment on above: Performed By: #### L 100.0100, L501.9985, L506.1000, L500.4050 #### [facility] Laboratory [address] [place], [address] GAP 9 Normal 5-15 [facility] Comment on above: Performed By: #### L 100.0100, L501.9985, L506.1000, L500.4050 #### [facility] Laboratory [address] [place], [address] GFR/1.73 sq M.predicted among non-blacks MDRD (S/P/Bld) [Vol rate/Area] 70 mL/min/{1.73_m2} Normal >60 [facility] Comment on above: Result Comment: mL/m in/1.73m2 CKD-EPI Creatinine Equation (2020) Performed By: #### L 100.0100, L501.9985, L506.1000, L500.4050 #### [facility] Laboratory [address] [place], [address] Globulin (S) [Mass/Vol] 2.6 g/dL Normal 2.2-4.2 [facility] Comment on above: Performed By: #### L 100.0100, L501.9985, L506.1000, L500.4050 #### [facility] Laboratory [address] [place], [address] Glucose [Mass/Vol] 85 mg/dL Normal 70-99 [facility] Comment on above: Performed By: #### L 100.0100, L501.9985, L506.1000, L500.4050 #### [facility] Laboratory [address] [place], [address] Potassium [Moles/Vol] 4.7 mmol/L Normal 3.3-5.1 [facility] Comment on above: Performed By: #### L 100.0100, L501.9985, L506.1000, L500.4050 #### [facility] Laboratory [address] [place], [address] Sodium [Moles/Vol] 141 mmol/L Normal 133-145 [facility] Comment on above: Performed By: #### L 100.0100, L501.9985, L506.1000, L500.4050 #### [facility] Laboratory [address] [place], [address] T PROT 6.6 g/dL Normal 5.9-8.4 [facility] Comment on above: Performed By: #### L 100.0100, L501.9985, L506.1000, L500.4050 #### [facility] Laboratory [address] [place], [address] Urea nitrogen [Mass/Vol] 26 mg/dL High 4-19 [facility] Comment on above: Performed By: #### L 100.0100, L501.9985, L506.1000, L500.4050 #### [facility] Laboratory [address] [place], [address] Creatinine Unsp time (U) [Ma ss/Vol]Ordered By: Gia Fast on 06-19-2024 Creatinine (U) [Mass/Vol] 132.00 mg/dL 28.00-217. 00 [facility] Eosinophil percentageOrdered By: Gia Fast on 06-19-2024 Eosinophils/100 WBC (Bld) 4.7 % 0-5 [facility] Erythrocyte distribution wid th (RBC) [Ratio]Ordered By: Gia Fast on 06-19-2024 Erythrocyte distribution width (RBC) [Entitic vol] 46.3 fL High 35.1-43.9 [facility] Erythrocyte distribution wid th ratioOrdered By: Gia Fast on 06-19-2024 Erythrocyte distribution width (RBC) [Ratio] 13.6 % 11.6-14.6 [facility] Erythrocyte distribution wid th standard deviationOrdered By: Gia Fast on 06-19-2024 Erythrocyte distribution width (RBC) [Ratio] 46.3 fl High 35.1-43.9 [facility] GFR/1.73 sq M.predicted christelle g non-blacks MDRD (S/P/Bld) [Vol rate/Area]Ordered By: Gia Fast on 06-19-2024 Estimated GFR (MDRD) Non-Af Amer 70 >60 [facility] Comment on above: mL/min/1.73m2 CKD-EP I Creatinine Equation (2020) Glomerular filtration rate ( GFR) estimation/1.73 sq m using serum, plasma, or whole bOrdered By: Gia Fast on 06-19-2024 GFR/1.73 sq M.predicted among non-blacks MDRD (S/P/Bld) [Vol rate/Area] 70 mL/min/{1.73_m2} >60 [facility] Comment on above: mL/min/1.73m2 CKD-EP I Creatinine Equation (2020) Hematocrit Auto (Bld) [Volum e fraction]Ordered By: Gia Fast on 06-19-2024 Hematocrit (Bld) [Volume fraction] 38.5 % 37-47 [facility] Hemoglobin A1con 06-19-2024 HbA1c (Bld) [Mass fraction] 5.7 % Normal <=5.6 [facility] Comment on above: Result Comment: Norm al < 5.7 % Prediabetic 5.7 - 6.4 % Diabetic >or= 6.5 % Please note range changes. Performed By: #### L 100.0100, L501.9985, L506.1000, L500.4050 #### [facility] Laboratory [facility] [address] [place], [place], [id number] Hemoglobin A1c percentageOrd ered By: Gia on 06-19-2024 HbA1c (Bld) [Mass fraction] 5.7 % <5.7 [facility] Comment on above: Normal < 5.7 % Predi abetic 5.7 - 6.4 % Diabetic >or= 6.5 % Please note range changes. Hemoglobin measurementOrdere d By: Gia Fast on 06-19-2024 Hemoglobin (Bld) [Mass/Vol] 12.7 g/dL 12.0-15.0 [facility] Immature granulocytes/100 WB C Auto (Bld)Ordered By: Gia Fast on 06-19-2024 Immature granulocytes/100 WBC (Bld) 0.200 % 0.0-0.9 [facility] Comment on above: IG% - Immature Granu locytes (promyelocytes, myelocytes and metamyelocytes) > 1% indicates that a LEFT SHIFT is Present. LDL calc ser/plasOrdered By: Gia Grover on 06-19-2024 Cholesterol in LDL [Mass/Vol] 64 mg/dL [facility] Comment on above: Fojwkhkqxw=426-777 m g/dL & Higher Ibyy=622 mg/dL or greater LDL Cholesterol, Calculated 64 mg/dL [facility] Comment on above: Zyelhvsjph=851-185 m g/dL & Higher Jlup=346 mg/dL or greater Laboratory - Chemistry and C hemistry - challengeOrdered By: Gia on 06-19-2024 AST [Catalytic activity/Vol] 31 U/L <32 [facility] Lipid Profileon 06-19-2024 CHOL:HDL 1.62 Normal [facility] Comment on above: Performed By: #### L 100.0100, L501.9985, L506.1000, L500.4050 #### [facility] Laboratory [address] [facility] [place], [place], [id number] (265) Cholesterol [Mass/Vol] 186 mg/dL Normal <=200 [facility] Comment on above: Result Comment: Chol esterol level, Desirable <200 mg/dL Borderline high cholesterol 200-239 mg/dL High cholesterol >=240 mg/dL Recommendations of the NCEP Adult Treatment Panel for the following risk-cutoff thresholds for the [place] population. Performed By: #### L 100.0100, L501.9985, L506.1000, L500.4050 #### [facility] Laboratory [address] [place], [address] Cholesterol in HDL [Mass/Vol] 115 mg/dL Normal [facility] Comment on above: Result Comment: Francesca onal Cholesterol Education Program (NCEP) guidelines: <40 mg/dL: Low HDL-cholesterol (major risk factor for CHD) >= 60 mg/dL: High HDL-cholesterol (negative risk factor for CHD) HDL-cholesterol is affected by a number of factors, e.g. smoking, exercise, hormones, sex and age. Performed By: #### L 100.0100, L501.9985, L506.1000, L500.4050 #### [facility] Laboratory [address] [place], [address] Cholesterol in LDL [Mass/Vol] 64 mg/dL Normal [facility] Comment on above: Result Comment: Bord dreqmn=342-126 mg/dL Higher Vyvb=651 mg/dL or greater Performed By: #### L 100.0100, L501.9985, L506.1000, L500.4050 #### [facility] Laboratory [address] [place], [address] Cholesterol in VLDL [Mass/Vol] 7 mg/dL Normal 5-40 [facility] Comment on above: Performed By: #### L 100.0100, L501.9985, L506.1000, L500.4050 #### [facility] Laboratory [address] [place], [address] Triglyceride [Mass/Vol] 35 mg/dL Normal [facility] Comment on above: Result Comment: The drugs N-Acetylcysteine and Metamizole may falsely depress this assay. Normal range: <150 mg/dL Borderline High: 150-199 mg/dL High: 200-499 mg/dL Very High: >500 mg/dL Performed By: #### L 100.0100, L501.9985, L506.1000, L500.4050 #### [facility] Laboratory [address] [place], [address] Lymphocytes Auto (Unsp spec) [#/Vol]Ordered By: Gia Fast on 06-19-2024 Lymphocytes (Bld) [#/Vol] 1.60 10*3/uL 0.83-4.51 [facility] Lymphocytes/100 WBC Auto (Un sp spec)Ordered By: Gia Fast on 06-19-2024 Lymphocytes/100 WBC (Bld) 34.5 % 19-41 [facility] MCV (mean corpuscular volume ) determinationOrdered By: Gia Fast on 06-19-2024 MCV (RBC) [Entitic vol] 91.9 fL 81-99 [facility] Mean corpuscular hemoglobin (MCH) determinationOrdered By: Gia on 06-19-2024 MCH (RBC) [Entitic mass] 30.3 pg 27.0-32.0 [facility] Mean corpuscular hemoglobin concentration (MCHC) determinationOrdered By: Gia Fast on 06-19-2024 MCHC (RBC) [Mass/Vol] 33.0 g/dL 32-36 [facility] Mean platelet volume determi nationOrdered By: Gia Fast on 06-19-2024 Platelet mean volume (Bld) [Entitic vol] 10.4 fL 6.2-12.0 [facility] Microalbumin/creat ratio urO rdered By: Gia Fast on 06-19-2024 Urine Microalbumin/Creatini ne Ratio 102.3 mg/g CRE [facility] Monocyte percentageOrdered B y: Gia on 06-19-2024 Monocytes/100 WBC (Bld) 11.6 % High 0-10 [facility] Neutrophil percentageOrdered By: on 06-19-2024 Neutrophils/100 WBC (Bld) 47.9 % 47-70 [facility] Nucleated red blood cell per centageOrdered By: Gia Fast on 06-19-2024 Nucleated RBC/100 WBC (Bld) [Ratio] 0 % 0-5 [facility] Platelet countOrdered By: Bills on 06-19-2024 Platelets (Bld) [#/Vol] 180 10*3/uL 150-450 [facility] Potassium (Unsp spec) [Mass/ Vol]Ordered By: Gia on 06-19-2024 Potassium [Moles/Vol] 4.7 mmol/L 3.3-5.1 [facility] Potassium measurement (mass/ volume)Ordered By: Gia Fast on 06-19-2024 Potassium (Unsp spec) [Mass/Vol] 4.7 mmol/L 3.3-5.1 [facility] RBC Auto (Bld) [#/Vol]Ordere d By: Gia Fast on 06-19-2024 RBC (Bld) [#/Vol] 4.19 10*6/uL Low 4.2-5.4 [facility] Random urine creatinine franklin urement (mass/volume)Ordered By: Gia Fast on 04-16-2025 Creatinine Unsp time (U) [Mass/Vol] 132.00 mg/dL 28.00-217. 00 [facility] Screening total cholesterol/ high density lipoprotein (HDL) cholesterol ratioOrdered By: 06-19-2024 Cholesterol.total/Cho lesterol in HDL [Mass ratio] 1.62 {ratio} [facility] Serum creatinine measurement (mass/volume)Ordered By: 06-19-2024 Creatinine [Mass/Vol] 0.84 mg/dL 0.70-1.20 [facility] Serum globulin measurementOr dered By: Gia06-19-2024 Globulin (S) [Mass/Vol] 2.6 g/dL 2.2-4.2 [facility] Serum glucose measurement (m ass/volume)Ordered By: 06-19-2024 Glucose [Mass/Vol] 85 mg/dL 70-99 [facility] Serum or plasma alanine mcbride otransferase (ALT) measurementOrdered By: 06-19-2024 ALT [Catalytic activity/Vol] 14 U/L <35 [facility] Serum or plasma albumin franklin urement (mass/volume)Ordered By: 06-19-2024 Albumin [Mass/Vol] 4.0 g/dL 3.4-4.8 [facility] Serum or plasma albumin/glob ulin mass ratioOrdered By: 06-19-2024 Albumin/Globulin [Mass ratio] 1.5 {ratio} 0.9-2.4 [facility] Serum or plasma alkaline sandee sphatase measurementOrdered By: 06-19-2024 ALP [Catalytic activity/Vol] 63 U/L 35-104 [facility] Serum or plasma calcium franklin urement (mass/volume)Ordered By: 06-19-2024 Calcium [Mass/Vol] 9.2 mg/dL 7.6-11.0 [facility] Serum or plasma cholesterol in HDL measurement (mass/volume)Ordered By: 06-19-2024 Cholesterol in HDL [Mass/Vol] 115 mg/dL >40 [facility] Comment on above: National Cholesterol Education Program (NCEP) guidelines:<40 mg/dL: Low HDL-cholesterol (major risk factor for CHD)>= 60 mg/dL: High HDL-cholesterol (negative risk factor for CHD)HDL-cholesterol is affected by a number of factors, e.g. smoking, exercise, hormones, sex and age. Serum or plasma cholesterol measurement (mass/volume)Ordered By: Gia Fast on 06-19-2024 Cholesterol [Mass/Vol] 186 mg/dL <201 [facility] Comment on above: Cholesterol level, D esirable <200 mg/dLBorderline high cholesterol 200-239 mg/dLHigh cholesterol >=240 mg/dLRecommendations of the NCEP Adult Treatment Panel for the following risk-cutoff thresholds for the [place] population. Serum or plasma urea nitroge n measurement (mass/volume)Ordered By: Gia Fast on 06-19-2024 Urea nitrogen [Mass/Vol] 26 mg/dL High 4-19 [facility] Sodium levelOrdered By: Debr a Fast on 06-19-2024 Sodium [Moles/Vol] 141 mmol/L 133-145 [facility] TSH DL <= 0.005 mIU/L QnOrde red By: Gia Fast on 06-19-2024 Thyroid Stimulating Hormone (TSH) 4.330 uIU/mL High 0.300-4.20 0 [facility] TSH Qn 4.330 uIU/mL High 0.300-4.20 0 [facility] Thyroid Stim Hormone (TSH)on 06-19-2024 TSH 4.330 uIU/mL High 0.300-4.20 0 [facility] Comment on above: Performed By: #### L 100.0100, L501.9985, L506.1000, L500.4050 #### [facility] Laboratory [address] [place], [address] Total proteinOrdered By: Hamida ra Fast on 06-19-2024 Protein [Mass/Vol] 6.6 g/dL 5.9-8.4 [facility] Triglycerides measurementOrd ered By: Gia Fast on 06-19-2024 Triglyceride [Mass/Vol] 35 mg/dL <199 [facility] Comment on above: The drugs N-Acetylcy steine and Metamizole may falsely depress this assay. Normal range: <150 mg/dLBorderline High: 150-199 mg/dLHigh: 200-499 mg/dLVery High: >500 mg/dL Urine albumin measurement [facility] detection limit of 20 mg/L or less (mass/volume)Ordered By: Gia Grover on 06-19-2024 Albumin DL <= 20 mg/L (U) [Mass/Vol] 13.5 mg/L NO RANGE EST. [facility] White blood cell (WBC) count Ordered By: Gia Grover on 06-19-2024 WBC (Bld) [#/Vol] 4.6 10*3/uL 4.4-11.0 [facility] Cardiology Visit Reporton Cardiology Visit Report [facility] [address] [place] [address] OFFICE VISIT Date of Service: 06/04/24 MR#: [id number] Acct: [id number] Name: BREANNA PURCELL Rep #: [id number] : 1940 Provider: DWIGHT carvalho Age/Sex: 83/F [place] [facility] Status: Signed HPI HPI History of Present Illness Details: Pleasant 83-year-old lady with no previous cardiac history who is being evaluated for shortness of breath on an incline. She actually has seen the anthropology professor and no significant abnormalities have been noted [...] of ischemia. She has also seen the anthropology professor and no significant abnormalities have been noted. 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 Normal [facility] L/S Spine Min 4 Viewson 03-07 L/S Spine Min 4 Views [facility] Imaging Services [address] [place] [address] L/S Spine Min 4 Views MR#: [id number] Acct: [id number] Name: BREANNA PURCELL Rep #: [id number] : 1940 F 83 From: Krysten mcduffie MD PCP: Dr. Gia Grover DO Status: REG CLI Study: L/S Spine Min 4 Views Date of Exam: 03/27/24 Exam# [id number] Ordering Dr: Gia Grover DO [id number] HISTORY: lumbar spine xray, 4 views - [...] MD at 14:33 EST , CC: Dr. Gia Grover, Health Care Marketing Specialist: Signed Normal [facility] 97-BS-Xgyaxyr DOrdered By: Mike Grover on 03-19-2024 Vitamin D 25-Hydroxy 63.8 ng/mL [facility] Comment on above: Vitamin D 25(OH) Sta tus Range Deficiency <20 ng/mL (50nmol/L) Insufficiency 20 - 30 ng/mL (50 - 75 nmol/L) Sufficiency 30 - 100 ng/mL (75 - 250 nmol/L) Toxicity >100 ng/mL (>250 nmol/L) Absolute neutrophil countOrd ered By: Gia Grover on 03-19-2024 Neutrophils (Bld) [#/Vol] 2.4 10*3/uL 2.0-7.7 [facility] Albumin to globulin ratioOrd ered By: Gia Grover on 03-19-2024 Albumin/Globulin [Mass ratio] 1.1 {ratio} 0.9-2.4 [facility] Automated blood erythrocyte countOrdered By: Gia Grover on 03-19-2024 RBC (Bld) [#/Vol] 4.51 10*6/uL Normal 4.2-5.4 [facility] Comment on above: Performed By: #### L 100.0100, L501.9985, L506.1000, L500.4050 #### [facility] Laboratory [facility], [address] Automated blood hematocrit ( percentage)Ordered By: Gia Grover on 03-19-2024 Hematocrit (Bld) [Volume fraction] 41.4 % Normal 37-47 [facility] Comment on above: Performed By: #### L 100.0100, L501.9985, L506.1000, L500.4050 #### [facility] Laboratory [address] [place], [address] Automated lymphocyte count a s percentage of total leukocytesOrdered By: Gia Fast on 03-19-2024 Lymphocytes/100 WBC (Bld) 38.1 % Normal 19-41 [facility] Comment on above: Performed By: #### L 100.0100, L501.9985, L506.1000, L500.4050 #### [facility] Laboratory [address] [place], [address] Basophil percentageOrdered B y: Gia Fast on 03-19-2024 Basophils/100 WBC (Bld) 1.1 % High 0-1 [facility] Comment on above: Performed By: #### L 100.0100, L501.9985, L506.1000, L500.4050 #### [facility] Laboratory [address] [place], [address] Bilirubin, totalOrdered By: Gia Fast on 03-19-2024 Bilirubin [Mass/Vol] 0.80 mg/dL 0.20-1.00 [facility] Comment on above: For patients on eltr ombopag therapy, use of Dimension [place] TBIL is not recommended. Blood urea nitrogen (BUN)/cr eatinine ratioOrdered By: Gia Fast on 03-19-2024 Urea nitrogen/Creatinine [Mass ratio] 29.6 mg/mg High 10-20 [facility] CBC W/Diff, Automatedon 03-06 Absolute Lymph 2.01 X10 3/uL Normal 0.83-4.51 [facility] Comment on above: Performed By: #### L 100.0100, L501.9985, L506.1000, L500.4050 #### [facility] Laboratory [address] [place], [address] Absolute Neut 2.4 X10 3/uL Normal 2.0-7.7 [facility] Comment on above: Performed By: #### L 100.0100, L501.9985, L506.1000, L500.4050 #### [facility] Laboratory [address] [place], [address] IG% 0.400 Normal 0.0-0.9 [facility] Comment on above: Result Comment: IG% - Immature Granulocytes (promyelocytes, myelocytes and metamyelocytes) > 1% indicates that a LEFT SHIFT is Present. Performed By: #### L 100.0100, L501.9985, L506.1000, L500.4050 #### [facility] Laboratory [address] [place], [address] Nucleated RBC (Bld) [#/Vol] 0 10*3/uL Normal 0-5 [facility] Comment on above: Performed By: #### L 100.0100, L501.9985, L506.1000, L500.4050 #### [facility] Laboratory [address] [place], [address] RDW SD 44.3 fl High 35.1-43.9 [facility] Comment on above: Performed By: #### L 100.0100, L501.9985, L506.1000, L500.4050 #### [facility] Laboratory [address] [place], [address] Carbon dioxide measurementOr dered By: Gia Fast on 03-19-2024 CO2 [Moles/Vol] 31.0 mmol/L 21.0-32.0 [facility] Chloride measurementOrdered By: Gia Fast on 03-19-2024 Chloride [Moles/Vol] 106 mmol/L 98-107 [facility] Comprehensive Metabolic Prof ilon 03-19-2024 Albumin [Mass/Vol] 3.7 g/dL Normal 3.2-5.0 [facility] Comment on above: Performed By: #### L 100.0100, L501.9985, L506.1000, L500.4050 #### [facility] Laboratory [address] [place], [address] Albumin/Globulin [Mass ratio] 1.1 {ratio} Normal 0.9-2.4 [facility] Comment on above: Performed By: #### L 100.0100, L501.9985, L506.1000, L500.4050 #### [facility] Laboratory [address] [place], [address] ALK P 63 U/L Normal 45-117 [facility] Comment on above: Performed By: #### L 100.0100, L501.9985, L506.1000, L500.4050 #### [facility] Laboratory [address] [place], [address] ALT [Catalytic activity/Vol] 17 U/L Normal 13-56 [facility] Comment on above: Performed By: #### L 100.0100, L501.9985, L506.1000, L500.4050 #### [facility] Laboratory [address] [place], [address] AST [Catalytic activity/Vol] 25 U/L Normal 15-37 [facility] Comment on above: Performed By: #### L 100.0100, L501.9985, L506.1000, L500.4050 #### [facility] Laboratory [address] [place], [address] Bilirubin [Mass/Vol] 0.80 mg/dL Normal 0.20-1.00 [facility] Comment on above: Result Comment: For patients on eltrombopag therapy, use of Dimension [place] TBIL is not recommended. Performed By: #### L 100.0100, L501.9985, L506.1000, L500.4050 #### [facility] Laboratory [address] [place], [address] BUN/CRE 29.6 RATIO High 10-20 [facility] Comment on above: Performed By: #### L 100.0100, L501.9985, L506.1000, L500.4050 #### [facility] Laboratory [address] [place], [address] CA,Total 9.3 mg/dL Normal 8.5-10.1 [facility] Comment on above: Performed By: #### L 100.0100, L501.9985, L506.1000, L500.4050 #### [facility] Laboratory [address] [place], [address] Chloride [Moles/Vol] 106 mmol/L Normal 98-107 [facility] Comment on above: Performed By: #### L 100.0100, L501.9985, L506.1000, L500.4050 #### [facility] Laboratory [address] [place], [address] CO2 [Moles/Vol] 31.0 mmol/L Normal 21.0-32.0 [facility] Comment on above: Performed By: #### L 100.0100, L501.9985, L506.1000, L500.4050 #### [facility] Laboratory [address] [place], [address] Creatinine [Mass/Vol] 0.85 mg/dL Normal 0.55-1.02 [facility] Comment on above: Result Comment: The validity of the calculated GFR GFRAA in patients over 70 years has not been determined. Clinical correlation is essential. Performed By: #### L 100.0100, L501.9985, L506.1000, L500.4050 #### [facility] Laboratory [address] [place], [address] EST GFR - AA 83 mL/min Normal >60 [facility] Comment on above: Result Comment: Afri can Congolese GFR Calc Performed By: #### L 100.0100, L501.9985, L506.1000, L500.4050 #### [facility] Laboratory [address] [place], [address] GAP 4 Low 5-15 [facility] Comment on above: Performed By: #### L 100.0100, L501.9985, L506.1000, L500.4050 #### [facility] Laboratory [address] [place], [address] GFR/1.73 sq M.predicted among non-blacks MDRD (S/P/Bld) [Vol rate/Area] 68 mL/min/{1.73_m2} Normal >60 [facility] Comment on above: Result Comment: Non- GFR Calc Performed By: #### L 100.0100, L501.9985, L506.1000, L500.4050 #### [facility] Laboratory [address] [place], [address] Globulin (S) [Mass/Vol] 3.5 g/dL Normal 2.2-4.2 [facility] Comment on above: Performed By: #### L 100.0100, L501.9985, L506.1000, L500.4050 #### [facility] Laboratory [address] [place], [address] Glucose [Mass/Vol] 96 mg/dL Normal 74-106 [facility] Comment on above: Performed By: #### L 100.0100, L501.9985, L506.1000, L500.4050 #### [facility] Laboratory [address] [place], [address] Potassium [Moles/Vol] 4.2 mmol/L Normal 3.5-5.1 [facility] Comment on above: Performed By: #### L 100.0100, L501.9985, L506.1000, L500.4050 #### [facility] Laboratory [address] [place], [address] Sodium [Moles/Vol] 142 mmol/L Normal 136-145 [facility] Comment on above: Performed By: #### L 100.0100, L501.9985, L506.1000, L500.4050 #### [facility] Laboratory [address] [place], [address] T PROT 7.2 g/dL Normal 6.4-8.2 [facility] Comment on above: Performed By: #### L 100.0100, L501.9985, L506.1000, L500.4050 #### [facility] Laboratory [address] [place], [address] Urea nitrogen [Mass/Vol] 25 mg/dL High 7-18 [facility] Comment on above: Performed By: #### L 100.0100, L501.9985, L506.1000, L500.4050 #### [facility] Laboratory [address] [place], [address] Eosinophil percentageOrdered By: Gia Fast on 03-19-2024 Eosinophils/100 WBC (Bld) 4.7 % Normal 0-5 [facility] Comment on above: Performed By: #### L 100.0100, L501.9985, L506.1000, L500.4050 #### [facility] Laboratory [address] [place], [address] Erythrocyte distribution wid th (RBC) [Ratio]Ordered By: Gia Fast on 03-19-2024 Erythrocyte distribution width (RBC) [Entitic vol] 44.3 fL High 35.1-43.9 [facility] Erythrocyte distribution wid th ratioOrdered By: Gia Fast on 03-19-2024 Erythrocyte distribution width (RBC) [Ratio] 13.2 % Normal 11.6-14.6 [facility] Comment on above: Performed By: #### L 100.0100, L501.9985, L506.1000, L500.4050 #### [facility] Laboratory [address] [place], [place], [address] Estimated glomerular filtrat ion rate (GFR) AmericanOrdered By: Gia Fast on 03-19-2024 Estimated GFR (MDRD) Amer 83 mL/min >60 [facility] Comment on above: GFR Calc Glomerular filtration rate ( GFR) estimationOrdered By: Gia Fast on 03-19-2024 Estimated GFR (MDRD) Non-Af Amer 68 mL/min >60 [facility] Comment on above: Non- GFR Calc Glucose measurementOrdered B y: Gia Fast on 03-19-2024 Glucose [Mass/Vol] 96 mg/dL 74-106 [facility] Hemoglobin A1con 03-19-2024 HbA1c (Bld) [Mass fraction] 5.6 % Normal 3.8-5.6 [facility] Comment on above: Result Comment: Norm al < 5.7 % Prediabetic 5.7 - 6.4 % Diabetic >or= 6.5 % Please note range changes. Performed By: #### L 100.0100, L501.9985, L506.1000, L500.4050 #### [facility] Laboratory [address] [place], [address] Hemoglobin A1c percentageOrd ered By: Gia Fast on 03-19-2024 HbA1c (Bld) [Mass fraction] 5.6 % 3.8-5.6 [facility] Comment on above: Normal < 5.7 % Predi abetic 5.7 - 6.4 % Diabetic >or= 6.5 % Please note range changes. Hemoglobin measurementOrdere d By: Gia Fast on 03-19-2024 Hemoglobin (Bld) [Mass/Vol] 13.2 g/dL Normal 12.0-15.0 [facility] Comment on above: Performed By: #### L 100.0100, L501.9985, L506.1000, L500.4050 #### [facility] Laboratory [address] [place], [address] Immature granulocytes/100 WB C Auto (Bld)Ordered By: Gia Fast on 03-19-2024 Immature granulocytes/100 WBC (Bld) 0.400 % 0.0-0.9 [facility] Comment on above: IG% - Immature Granu locytes (promyelocytes, myelocytes and metamyelocytes) > 1% indicates that a LEFT SHIFT is Present. Laboratory - Chemistry and C hemistry - challengeOrdered By: Gia Fast on 03-19-2024 AST [Catalytic activity/Vol] 25 U/L 15-37 [facility] Lymphocytes Auto (Unsp spec) [#/Vol]Ordered By: Gia Fast on 03-19-2024 Lymphocytes (Bld) [#/Vol] 2.01 10*3/uL 0.83-4.51 [facility] MCV (mean corpuscular volume ) determinationOrdered By: Gia Fast on 03-19-2024 MCV (RBC) [Entitic vol] 91.8 fL Normal 81-99 [facility] Comment on above: Performed By: #### L 100.0100, L501.9985, L506.1000, L500.4050 #### [facility] Laboratory [address] [place], [address] Mean corpuscular hemoglobin (MCH) determinationOrdered By: Gia Fast on 03-19-2024 MCH (RBC) [Entitic mass] 29.3 pg Normal 27.0-32.0 [facility] Comment on above: Performed By: #### L 100.0100, L501.9985, L506.1000, L500.4050 #### [facility] Laboratory [address] [place], [address] Mean corpuscular hemoglobin concentration (MCHC) determinationOrdered By: Gia Fast on 03-19-2024 MCHC (RBC) [Mass/Vol] 31.9 g/dL Low 32-36 [facility] Comment on above: Performed By: #### L 100.0100, L501.9985, L506.1000, L500.4050 #### [facility] Laboratory [address] [place], [address] Mean platelet volume determi nationOrdered By: Gia Fast on 03-19-2024 Platelet mean volume (Bld) [Entitic vol] 10.0 fL Normal 6.2-12.0 [facility] Comment on above: Performed By: #### L 100.0100, L501.9985, L506.1000, L500.4050 #### [facility] Laboratory [address] [place], [address] Monocyte percentageOrdered B y: Gia Fast on 03-19-2024 Monocytes/100 WBC (Bld) 10.4 % High 0-10 [facility] Comment on above: Performed By: #### L 100.0100, L501.9985, L506.1000, L500.4050 #### [facility] Laboratory [address] [place], [address] Neutrophil percentageOrdered By: Gia Fast on 03-19-2024 Neutrophils/100 WBC (Bld) 45.3 % Low 47-70 [facility] Comment on above: Performed By: #### L 100.0100, L501.9985, L506.1000, L500.4050 #### [facility] Laboratory [address] [place], [address] Nucleated red blood cell per centageOrdered By: Gia Fast on 03-19-2024 Nucleated RBC/100 WBC (Bld) [Ratio] 0 % 0-5 [facility] Platelet countOrdered By: De bra Fast on 03-19-2024 Platelets (Bld) [#/Vol] 203 10*3/uL Normal 150-450 [facility] Comment on above: Performed By: #### L 100.0100, L501.9985, L506.1000, L500.4050 #### [facility] Laboratory [address] [place], [address] Potassium measurementOrdered By: Gia Fast on 03-19-2024 Potassium [Moles/Vol] 4.2 mmol/L 3.5-5.1 [facility] Serum anion gap measurementO rdered By: Gia Fast on 03-19-2024 Anion gap [Moles/Vol] 4 mmol/L Low 5-15 [facility] Serum globulin measurementOr dered By: on 03-19-2024 Globulin (S) [Mass/Vol] 3.5 g/dL 2.2-4.2 [facility] Serum or plasma alanine mcbride otransferase (ALT) measurementOrdered By: on 03-19-2024 ALT [Catalytic activity/Vol] 17 U/L 13-56 [facility] Serum or plasma albumin franklin urement (mass/volume)Ordered By: on 03-19-2024 Albumin [Mass/Vol] 3.7 g/dL 3.2-5.0 [facility] Serum or plasma alkaline sandee sphatase measurementOrdered By: on 03-19-2024 ALP [Catalytic activity/Vol] 63 U/L 45-117 [facility] Serum or plasma calcium franklin urement (mass/volume)Ordered By: on 03-19-2024 Calcium [Mass/Vol] 9.3 mg/dL 8.5-10.1 [facility] Serum or plasma creatinine m easurement (mass/volume)Ordered By: on 03-19-2024 Creatinine [Mass/Vol] 0.85 mg/dL 0.55-1.02 [facility] Comment on above: The validity of the calculated GFR & GFRAA in patients over 70 years has not been determined. Clinical correlation is essential. Serum or plasma urea nitroge n measurement (mass/volume)Ordered By: on 03-19-2024 Urea nitrogen [Mass/Vol] 25 mg/dL High 7-18 [facility] Sodium levelOrdered By: a Fast on 03-19-2024 Sodium [Moles/Vol] 142 mmol/L 136-145 [facility] Total proteinOrdered By: Hamida ra on 03-19-2024 Protein [Mass/Vol] 7.2 g/dL 6.4-8.2 [facility] Vitamin D,25 Hydroxyon 03-19 Vitamin D 25-OH 63.8 ng/mL Normal [facility] Comment on above: Result Comment: Dina min D 25(OH) Status Range Deficiency <20 ng/mL (50nmol/L) Insufficiency 20 - 30 ng/mL (50 - 75 nmol/L) Sufficiency 30 - 100 ng/mL (75 - 250 nmol/L) Toxicity >100 ng/mL (>250 nmol/L) Performed By: #### L 100.0100, L501.9985, L506.1000, L500.4050 #### [facility] [address] [place], [address] White blood cell (WBC) count Ordered By: Gia Grover on 03-19-2024 WBC (Bld) [#/Vol] 5.3 10*3/uL Normal 4.4-11.0 [facility] Comment on above: Performed By: #### L 100.0100, L501.9985, L506.1000, L500.4050 #### [facility] [address] [place], [address] Thyroidon 01-11-2024 Thyroid [facility] Imaging Services [address] [place] [address] Thyroid MR#: [id number] Acct: [id number] Name: BREANNA PURCELL Rep #: [id number] : [id number] F [id number] From: Jmaes paul DO PCP: Dr. Gia Grover DO Status: [facility] CLI Study: Thyroid Date of Exam: 01/11/24 Exam# [id number] Ordering Dr: Gia Grvoer DO [id number] EXAM: US SOFT TISSUES HEAD AND NECK, THYROID CLINICAL INDICATION: Thyroid ([id number]) -- Thyroid nodule TECHNIQUE: Greyscale and color [...] DO at 12:09 EST , CC: Dr. Gia Grover DO Health Care Marketing Specialist: Signed Normal [facility] Absolute lymphocyte countOrd ered By: Gia Grover on 06-09-2023 Lymphocytes Auto (Unsp spec) [#/Vol] 2.13 10*3/uL 0.83-4.51 [facility] Automated lymphocyte count a s percentage of total leukocytesOrdered By: Gia Grover on 06-09-2023 Lymphocytes/100 WBC Auto (Unsp spec) 43.0 % 19-41 [facility] Basophil percentageOrdered B y: Gia Grover on 06-09-2023 Basophils/100 WBC (Bld) 1.2 % 0-1 [facility] Bilirubin [Mass/Vol] 0.60 mg/dL 0.20-1.00 [facility] Comment on above: For patients on eltr ombopag therapy, use of Dimension [place] TBIL is not recommended. Chloride [Moles/Vol] 111 mmol/L 98-107 [facility] Eosinophils/100 WBC (Bld) 3.8 % 0-5 [facility] Glucose [Mass/Vol] 94 mg/dL 74-106 [facility] Hemoglobin (Bld) [Mass/Vol] 12.9 g/dL 12.0-15.0 [facility] Monocytes/100 WBC (Bld) 9.5 % 0-10 [facility] Neutrophils (Bld) [#/Vol] 2.1 10*3/uL 2.0-7.7 [facility] Neutrophils/100 WBC (Bld) 42.5 % 47-70 [facility] Potassium [Moles/Vol] 4.3 mmol/L 3.5-5.1 [facility] Protein [Mass/Vol] 6.9 g/dL 6.4-8.2 [facility] Sodium [Moles/Vol] 143 mmol/L 136-145 [facility] WBC (Bld) [#/Vol] 5.0 10*3/uL 4.4-11.0 [facility] Determination of erythrocyte mean corpuscular volume (MCV)Ordered By: [facility] on 06-09-2023 MCV (RBC) [Entitic vol] 93.0 fL 81-99 [facility] Erythrocyte distribution wid th ratioOrdered By: [facility] on 06-09-2023 Erythrocyte distribution width (RBC) [Ratio] 13.4 % 11.6-14.6 [facility] Erythrocyte distribution wid th standard deviationOrdered By: [facility] on 06-09-2023 Erythrocyte distribution width (RBC) [Entitic vol] 45.9 fL 35.1-43.9 [facility] Hematocrit Auto (Bld) [Volum e fraction]Ordered By: [facility] on 06-09-2023 Hematocrit (Bld) [Volume fraction] 40.1 % 37-47 [facility] Immature granulocytes/100 WB C Auto (Bld)Ordered By: [facility] on 06-09-2023 Immature granulocytes/100 WBC (Bld) 0.000 % 0.0-0.9 [facility] Comment on above: IG% - Immature Granu locytes (promyelocytes, myelocytes and metamyelocytes) > 1% indicates that a LEFT SHIFT is Present. Laboratory - Chemistry and C hemistry - challengeOrdered By: [facility] on 06-09-2023 Albumin/Globulin [Mass ratio] 1.1 {ratio} 0.9-2.4 [facility] ALP [Catalytic activity/Vol] 55 U/L 45-117 [facility] ALT [Catalytic activity/Vol] 20 U/L 13-56 [facility] CO2 [Moles/Vol] 29.0 mmol/L 21.0-32.0 [facility] Globulin (S) [Mass/Vol] 3.3 g/dL 2.2-4.2 [facility] Urea nitrogen/Creatinine [Mass ratio] 37.5 mg/mg 10-20 [facility] Laboratory - Hematology and Cell countsOrdered By: Gia Grover on 06-09-2023 MCH (RBC) [Entitic mass] 29.9 pg 27.0-32.0 [facility] MCHC (RBC) [Mass/Vol] 32.2 g/dL 32-36 [facility] Nucleated RBC/100 WBC (Bld) [Ratio] 0 % 0-5 [facility] Platelet mean volume (Bld) [Entitic vol] 10.2 fL 6.2-12.0 [facility] Platelets (Bld) [#/Vol] 188 10*3/uL 150-450 [facility] No Panel InformationOrdered By: Gia Grover on 06-09-2023 Estimated GFR (MDRD) Amer 85 mL/min >60 [facility] Comment on above: GFR Calc Estimated GFR (MDRD) Non-Af Amer 70 mL/min >60 [facility] Comment on above: Non- GFR Calc Urine Microalbumin/Creatini ne Ratio 17.3 mg/g CRE <30 [facility] RBC Auto (Bld) [#/Vol]Ordere d By: Gia Grover on 06-09-2023 RBC (Bld) [#/Vol] 4.31 10*6/uL 4.2-5.4 [facility] Serum or plasma calcium franklin urement (mass/volume)Ordered By: Gia Grover on 06-09-2023 Calcium [Mass/Vol] 9.1 mg/dL 8.5-10.1 [facility] Serum or plasma creatinine m easurement (mass/volume)Ordered By: Gia Reilly on 06-09-2023 Creatinine [Mass/Vol] 0.83 mg/dL 0.55-1.02 [facility] Comment on above: The validity of the calculated GFR & GFRAA in patients over 70 years has not been determined. Clinical correlation is essential. Serum or plasma urea nitroge n measurement (mass/volume)Ordered By: Gia Grover on 06-09-2023 Urea nitrogen [Mass/Vol] 31 mg/dL 7-18 [facility] Thin prep Papanicolaou smear with manual screeningOrdered By: Gia Grover on 06-09-2023 Thin prep Papanicolaou smear with manual screening 3.6 g/dL 3.2-5.0 [facility] Thin prep Papanicolaou smear with manual screening 26 U/L 15-37 [facility] Thin prep Papanicolaou smear with manual screening 3 5-15 [facility] Thin prep Papanicolaou smear with manual screening 20.4 mg/L NO RANGE EST. [facility] Urine creatinine measurement (mass/volume)Ordered By: Gia Grover on 06-09-2023 Creatinine (U) [Mass/Vol] 118.00 mg/dL NO RANGE EST. [facility] Whole blood hemoglobin A1c/t otal hemoglobin ratio (mass fraction)Ordered By: Giaal Grover on 06-09-2023 HbA1c (Bld) [Mass fraction] 5.4 % 3.8-5.6 [facility] Comment on above: Normal < 5.7 % Predi abetic 5.7 - 6.4 % Diabetic >or= 6.5 % Please note range changes. Absolute lymphocyte countOrd ered By: Gia Grover on 09-02-2022 Lymphocytes Auto (Unsp spec) [#/Vol] 1.85 10*3/uL 0.83-4.51 [facility] Basophil percentageOrdered B y: Gia Grover on 09-02-2022 Basophils/100 WBC (Bld) 1.3 % 0-1 [facility] Bilirubin [Mass/Vol] 0.60 mg/dL 0.20-1.00 [facility] Comment on above: For patients on eltr ombopag therapy, use of Dimension [place] TBIL is not recommended. Chloride [Moles/Vol] 109 mmol/L 98-107 [facility] Cholesterol [Mass/Vol] 181 mg/dL <200 [facility] Comment on above: <200 mg/dL Desirable 200-240 mg/dL Borderline >240 mg/dL High Risk Eosinophils/100 WBC (Bld) 4.1 % 0-5 [facility] Glucose [Mass/Vol] 82 mg/dL 74-106 [facility] Neutrophils (Bld) [#/Vol] 2.0 10*3/uL 2.0-7.7 [facility] Neutrophils/100 WBC (Bld) 43.2 % 47-70 [facility] Potassium [Moles/Vol] 4.3 mmol/L 3.5-5.1 [facility] Protein [Mass/Vol] 6.9 g/dL 6.4-8.2 [facility] Sodium [Moles/Vol] 141 mmol/L 136-145 [facility] Triglyceride [Mass/Vol] 71 mg/dL <199 [facility] Comment on above: The drugs N-Acetylcy steine and Metamizole may falsely depress this assay.Serum Triglycerides Reference Interval Normal <150 mg/dL Borderline high 150 - 199 mg/dL High 200 - 499 mg/dL Very High > or = 500 mg/dL WBC (Bld) [#/Vol] 4.6 10*3/uL 4.4-11.0 [facility] Blood erythrocytes count (nu mber/volume)Ordered By: Gia Fast on 09-02-2022 RBC (Bld) [#/Vol] 4.32 10*6/uL 4.2-5.4 [facility] Blood hemoglobin measurement (mass/volume)Ordered By: Gia Fast on 09-02-2022 Hemoglobin (Bld) [Mass/Vol] 13.1 g/dL 12.0-15.0 [facility] Blood lymphocytes/100 leukoc ytesOrdered By: Gia Fast on 09-02-2022 Lymphocytes/100 WBC (Bld) 40.0 % 19-41 [facility] Blood monocytes/100 leukocyt esOrdered By: Gia Fast on 09-02-2022 Monocytes/100 WBC (Bld) 11.0 % 0-10 [facility] Blood platelet mean volumeOr dered By: Gia Fast on 09-02-2022 Platelet mean volume (Bld) [Entitic vol] 10.5 fL 6.2-12.0 [facility] Determination of erythrocyte mean corpuscular volume (MCV)Ordered By: Gia Fast on 09-02-2022 MCV (RBC) [Entitic vol] 94.4 fL 81-99 [facility] Hematocrit Auto (Bld) [Volum e fraction]Ordered By: Gia Fast on 09-02-2022 Hematocrit (Bld) [Volume fraction] 40.8 % 37-47 [facility] Laboratory - Chemistry and C hemistry - challengeOrdered By: Gia Fast on 09-02-2022 ALP [Catalytic activity/Vol] 56 U/L 45-117 [facility] ALT [Catalytic activity/Vol] 19 U/L 13-56 [facility] CO2 [Moles/Vol] 29.0 mmol/L 21.0-32.0 [facility] Globulin (S) [Mass/Vol] 3.4 g/dL 2.2-4.2 [facility] Urea nitrogen/Creatinine [Mass ratio] 32.3 mg/mg 10-20 [facility] Laboratory - Hematology and Cell countsOrdered By: Gia on 09-02-2022 Erythrocyte distribution width (RBC) [Entitic vol] 45.5 fL 35.1-43.9 [facility] Erythrocyte distribution width (RBC) [Ratio] 13.2 % 11.6-14.6 [facility] Immature granulocytes/100 WBC (Bld) 0.400 % 0.0-0.9 [facility] Comment on above: IG% - Immature Granu locytes (promyelocytes, myelocytes and metamyelocytes) > 1% indicates that a LEFT SHIFT is Present. MCH (RBC) [Entitic mass] 30.3 pg 27.0-32.0 [facility] Nucleated RBC/100 WBC (Bld) [Ratio] 0 % 0-5 [facility] MCHC Auto (RBC) [Mass/Vol]Or dered By: Gia on 09-02-2022 MCHC (RBC) [Mass/Vol] 32.1 g/dL 32-36 [facility] No Panel InformationOrdered By: Gia Fast on 09-02-2022 Estimated GFR (MDRD) Amer 92 mL/min >60 [facility] Comment on above: GFR Calc Estimated GFR (MDRD) Non-Af Amer 76 mL/min >60 [facility] Comment on above: Non- GFR Calc Urine Microalbumin/Creatini ne Ratio 11.4 mg/g CRE <30 [facility] Platelets bldOrdered By: Hamida ra Fast on 09-02-2022 Platelets (Bld) [#/Vol] 212 10*3/uL 150-450 [facility] Serum or plasma albumin franklin urement (mass/volume)Ordered By: on 09-02-2022 Albumin [Mass/Vol] 3.5 g/dL 3.2-5.0 [facility] Serum or plasma albumin/glob ulin mass ratioOrdered By: on 09-02-2022 Albumin/Globulin [Mass ratio] 1.0 {ratio} 0.9-2.4 [facility] Serum or plasma calcium franklin urement (mass/volume)Ordered By: on 09-02-2022 Calcium [Mass/Vol] 8.7 mg/dL 8.5-10.1 [facility] Serum or plasma cholesterol in HDL measurement (mass/volume)Ordered By: 09-02-2022 Cholesterol in HDL [Mass/Vol] 103 mg/dL >40 [facility] Comment on above: The drugs N-Acetylcy steine and Metamizole may falsely depress this assay. Reference Range HDL <40 mg/dL Low HDL Cholesterol HDL >or= 60 mg/dL High HDL Cholesterol Serum or plasma cholesterol in VLDL measurement (mass/volume)Ordered By: on 09-02-2022 Cholesterol in VLDL [Mass/Vol] 14 mg/dL 5-40 [facility] Serum or plasma creatinine m easurement (mass/volume)Ordered By: 09-02-2022 Creatinine [Mass/Vol] 0.78 mg/dL 0.55-1.02 [facility] Comment on above: The validity of the calculated GFR & GFRAA in patients over 70 years has not been determined. Clinical correlation is essential. Serum or plasma low density lipoprotein (LDL) cholesterol measurement (mass/volume)Ordered By: on 09-02-2022 Cholesterol in LDL [Mass/Vol] 64 mg/dL 0-130 [facility] Serum or plasma urea nitroge n measurement (mass/volume)Ordered By: 09-02-2022 Urea nitrogen [Mass/Vol] 25 mg/dL 7-18 [facility] Thin prep Papanicolaou smear with manual screeningOrdered By: Gia09-02-2022 Thin prep Papanicolaou smear with manual screening 26 U/L 15-37 [facility] Thin prep Papanicolaou smear with manual screening 3 5-15 [facility] Thin prep Papanicolaou smear with manual screening 5.7 mg/L NO RANGE EST. [facility] Urine creatinine measurement (mass/volume)Ordered By: Gia Grover on 09-02-2022 Creatinine (U) [Mass/Vol] 50.10 mg/dL NO RANGE EST. [facility] Whole blood hemoglobin A1c/t otal hemoglobin ratio (mass fraction)Ordered By: Gia Grover on 09-02-2022 HbA1c (Bld) [Mass fraction] 5.3 % 3.8-5.6 [facility] Comment on above: Normal < 5.7 % Predi abetic 5.7 - 6.4 % Diabetic >or= 6.5 % Please note range changes. Absolute lymphocyte countOrd ered By: Dr. Grover on 05-24-2022 Lymphocytes Auto (Unsp spec) [#/Vol] 2.04 10*3/uL 0.83-4.51 [facility] Basophil percentageOrdered B y: Dr. Grover on 05-24-2022 Basophils/100 WBC (Bld) 1.1 % 0-1 [facility] Bilirubin [Mass/Vol] 0.60 mg/dL 0.20-1.00 [facility] Comment on above: For patients on eltr ombopag therapy, use of Dimension [place] TBIL is not recommended. Chloride [Moles/Vol] 109 mmol/L 98-107 [facility] Cholesterol [Mass/Vol] 198 mg/dL <200 [facility] Comment on above: <200 mg/dL Desirable 200-240 mg/dL Borderline >240 mg/dL High Risk Eosinophils/100 WBC (Bld) 3.6 % 0-5 [facility] Glucose [Mass/Vol] 96 mg/dL 74-106 [facility] Neutrophils (Bld) [#/Vol] 2.5 10*3/uL 2.0-7.7 [facility] Neutrophils/100 WBC (Bld) 47.2 % 47-70 [facility] Potassium [Moles/Vol] 4.2 mmol/L 3.5-5.1 [facility] Protein [Mass/Vol] 6.9 g/dL 6.4-8.2 [facility] Sodium [Moles/Vol] 143 mmol/L 136-145 [facility] Triglyceride [Mass/Vol] 45 mg/dL <199 [facility] Comment on above: The drugs N-Acetylcy steine and Metamizole may falsely depress this assay.Serum Triglycerides Reference Interval Normal <150 mg/dL Borderline high 150 - 199 mg/dL High 200 - 499 mg/dL Very High > or = 500 mg/dL WBC (Bld) [#/Vol] 5.3 10*3/uL 4.4-11.0 [facility] Blood erythrocytes count (nu mber/volume)Ordered By: Dr. Grover on 05-24-2022 RBC (Bld) [#/Vol] 4.40 10*6/uL 4.2-5.4 [facility] Blood hemoglobin measurement (mass/volume)Ordered By: Dr. Grover on 05-24-2022 Hemoglobin (Bld) [Mass/Vol] 13.3 g/dL 12.0-15.0 [facility] Blood lymphocytes/100 leukoc ytesOrdered By: Dr. Grover on 05-24-2022 Lymphocytes/100 WBC (Bld) 38.6 % 19-41 [facility] Blood monocytes/100 leukocyt esOrdered By: Dr. Grover on 05-24-2022 Monocytes/100 WBC (Bld) 9.3 % 0-10 [facility] Blood platelet mean volumeOr dered By: Dr. Grover on 05-24-2022 Platelet mean volume (Bld) [Entitic vol] 10.3 fL 6.2-12.0 [facility] Determination of erythrocyte mean corpuscular volume (MCV)Ordered By: Dr. Grover on 05-24-2022 MCV (RBC) [Entitic vol] 94.1 fL 81-99 [facility] Hematocrit Auto (Bld) [Volum e fraction]Ordered By: Dr. Grover on 05-24-2022 Hematocrit (Bld) [Volume fraction] 41.4 % 37-47 [facility] Laboratory - Chemistry and C hemistry - challengeOrdered By: Dr. Grover on 05-24-2022 ALP [Catalytic activity/Vol] 57 U/L 45-117 [facility] ALT [Catalytic activity/Vol] 22 U/L 13-56 [facility] CO2 [Moles/Vol] 29.0 mmol/L 21.0-32.0 [facility] Globulin (S) [Mass/Vol] 3.2 g/dL 2.2-4.2 [facility] Urea nitrogen/Creatinine [Mass ratio] 32.5 mg/mg 10-20 [facility] Laboratory - Hematology and Cell countsOrdered By: Dr. Grover on 05-24-2022 Erythrocyte distribution width (RBC) [Entitic vol] 45.1 fL 35.1-43.9 [facility] Erythrocyte distribution width (RBC) [Ratio] 13.0 % 11.6-14.6 [facility] Immature granulocytes/100 WBC (Bld) 0.200 % 0.0-0.9 [facility] Comment on above: IG% - Immature Granu locytes (promyelocytes, myelocytes and metamyelocytes) > 1% indicates that a LEFT SHIFT is Present. MCH (RBC) [Entitic mass] 30.2 pg 27.0-32.0 [facility] Nucleated RBC/100 WBC (Bld) [Ratio] 0 % 0-5 [facility] MCHC Auto (RBC) [Mass/Vol]Or dered By: Dr. Grover on 05-24-2022 MCHC (RBC) [Mass/Vol] 32.1 g/dL 32-36 [facility] No Panel InformationOrdered By: Dr. Grover on 05-24-2022 Estimated GFR (MDRD) Amer 89 mL/min >60 [facility] Comment on above: GFR Calc Estimated GFR (MDRD) Non-Af Amer 73 mL/min >60 [facility] Comment on above: Non- GFR Calc Vitamin D 25-Hydroxy 51.3 ng/mL [facility] Comment on above: Vitamin D 25(OH) Sta tus Range Deficiency <20 ng/mL (50nmol/L) Insufficiency 20 - 30 ng/mL (50 - 75 nmol/L) Sufficiency 30 - 100 ng/mL (75 - 250 nmol/L) Toxicity >100 ng/mL (>250 nmol/L) Platelets bldOrdered By: Dr. Grover on 05-24-2022 Platelets (Bld) [#/Vol] 195 10*3/uL 150-450 [facility] Serum or plasma albumin franklin urement (mass/volume)Ordered By: Dr. Grover on 05-24-2022 Albumin [Mass/Vol] 3.7 g/dL 3.2-5.0 [facility] Serum or plasma albumin/glob ulin mass ratioOrdered By: Dr. Grover on 05-24-2022 Albumin/Globulin [Mass ratio] 1.2 {ratio} 0.9-2.4 [facility] Serum or plasma calcium franklin urement (mass/volume)Ordered By: Dr. Grover on 05-24-2022 Calcium [Mass/Vol] 9.0 mg/dL 8.5-10.1 [facility] Serum or plasma cholesterol in HDL measurement (mass/volume)Ordered By: Dr. Grover on 05-24-2022 Cholesterol in HDL [Mass/Vol] 112 mg/dL >40 [facility] Comment on above: The drugs N-Acetylcy steine and Metamizole may falsely depress this assay. Reference Range HDL <40 mg/dL Low HDL Cholesterol HDL >or= 60 mg/dL High HDL Cholesterol Serum or plasma cholesterol in VLDL measurement (mass/volume)Ordered By: Dr. Grover on 05-24-2022 Cholesterol in VLDL [Mass/Vol] 9 mg/dL 5-40 [facility] Serum or plasma creatinine m easurement (mass/volume)Ordered By: Dr. Grover on 05-24-2022 Creatinine [Mass/Vol] 0.80 mg/dL 0.55-1.02 [facility] Comment on above: The validity of the calculated GFR & GFRAA in patients over 70 years has not been determined. Clinical correlation is essential. Serum or plasma low density lipoprotein (LDL) cholesterol measurement (mass/volume)Ordered By: Dr. Grover on 05-24-2022 Cholesterol in LDL [Mass/Vol] 77 mg/dL 0-130 [facility] Serum or plasma urea nitroge n measurement (mass/volume)Ordered By: Dr. Grover on 05-24-2022 Urea nitrogen [Mass/Vol] 26 mg/dL 7-18 [facility] Thin prep Papanicolaou smear with manual screeningOrdered By: Dr. Grover on 05-24-2022 Thin prep Papanicolaou smear with manual screening 25 U/L 15-37 [facility] Thin prep Papanicolaou smear with manual screening 5 5-15 [facility] Whole blood hemoglobin A1c/t otal hemoglobin ratio (mass fraction)Ordered By: Dr. Grover on 05-24-2022 HbA1c (Bld) [Mass fraction] 5.6 % 3.8-5.6 [facility] Comment on above: Normal < 5.7 % Predi abetic 5.7 - 6.4 % Diabetic >or= 6.5 % Please note range changes. CBC with auto diff ([id number])Or dered By: Bottling Line Operator on 12-27-2021 Basophils (Bld) [#/Vol] 0.0 10*3/uL [...] MCHC (RBC) [Mass/Vol] 33.1 g/dL Normal 31.5-35.7 [facility] prehensive [facility]; [facility] Work [...] Phone: Neutrophils/100 WBC (Bld) 43 % Normal [facility]; [facility] Work Phone: Platelets (Bld) [#/Vol] 198 10*3/uL Normal 150-450 [facility]; [facility] Work Phone: RBC (Bld) [#/Vol] 4.24 10*6/uL Normal 3.77-5.28 [facility] ehensive Internal Medicine; [facility] Work Phone: WBC (Bld) [#/Vol] 3.9 10*3/uL Normal 3.4-10.8 [facility]; [facility] Work Phone: METABOLIC PANEL, COMPREHENSI VE ([id number])Ordered By: Bottling Line Operator on 12-27-2021 Albumin [Mass/Vol] 4.2 g/dL Normal 3.7-4.7 [facility]; [facility] Work Phone: Albumin/Globulin [Mass ratio] 2.1 {ratio} Normal 1.2-2.2 [facility]; [facility] Work Phone: ALP [Catalytic activity/Vol] 56 U/L Normal 44-121 [facility]; [facility] Work Phone: ALT [Catalytic activity/Vol] 12 U/L Normal 0-32 [facility]; [facility] Work Phone: AST [Catalytic activity/Vol] 26 U/L Normal 0-40 [facility]; [facility] Work Phone: Bilirubin [Mass/Vol] 0.6 mg/dL Normal 0.0-1.2 [facility] Internal Medicine; [facility] Work Phone: Calcium [Mass/Vol] 9.0 mg/dL Normal 8.7-10.3 [facility] Internal Medicine; [facility] Work Phone: Chloride [Moles/Vol] 106 mmol/L Normal 96-106 [facility] Internal Medicine; [facility] Work Phone: CO2 [Moles/Vol] 23 mmol/L Normal 20-29 [facility]; [facility] [facility] Work Phone: Creatinine [Mass/Vol] 0.78 mg/dL Normal 0.57-1.00 [facility]; [facility] Work Phone: Globulin (S) [Mass/Vol] 2.0 g/dL Normal 1.5-4.5 [facility]; [facility] Work Phone: Glucose [Mass/Vol] 88 mg/dL Normal 70-99 [facility]; [facility] Work Phone: Potassium [Moles/Vol] 4.5 mmol/L Normal 3.5-5.2 [facility]; [facility] Work Phone: Protein [Mass/Vol] 6.2 g/dL Normal 6.0-8.5 [facility]; [facility] Work Phone: Sodium [Moles/Vol] 141 mmol/L Normal 134-144 [facility]; [facility] Work Phone: Urea nitrogen [Mass/Vol] 28 mg/dL Abnormal 8-27 [facility]; [facility] Work Phone: Urea nitrogen/Creatinine [Mass ratio] 36 mg/mg Abnormal 12- [facility]; [facility] Work Phone: METABOLIC PANEL, COMPREHENSIVE ([id number]) 77 mL/min/1.73 Normal [facility]; [facility] Work Phone: MICROALBUMINOrdered By: Syst em Flask Carrier on 12-27-2021 Albumin DL <= 20 mg/L (U) [Mass/Vol] 10.9 ug/mL Normal [facility]; [facility] Work Phone: Albumin/Creatinine (U) [Mass ratio] 10 {mg/g_creat} Normal 0-29 [facility]; [facility] Work Phone: Creatinine (U) [Mass/Vol] 109.7 mg/dL Normal [facility]; [facility] Work Phone: URINALYSIS, W/ MICRO ([id number]) Ordered By: Bottling Line Operator on 12-27-2021 Appearance (U) Clear Normal Comprehens [...] [facility] Work Phone: pH (U) 7.5 [pH] Normal 5.0-7.5 [facility]; [facility] Work Phone: Protein Ql (U) Negative Normal [facility]; [facility] Work Phone: Specific gravity (U) [Rel density] 1.021 1 Normal 1.005-1.03 0 [facility]; [facility] Work Phone: Urobilinogen (U) [Mass/Vol] 0.2 mg/dL Normal 0.2-1.0 [facility]; [facility] Work Phone: CNOVon 12-21-2021 CNOV Office Visit ([facility] ) ----- BREANNA PURCELL ([id number]) 1940 F Date Time Provider Department 12/21/21 10:30 AM NESS TORIBIO During your visit today, [...] Denies bloody/black colored stools. Reports colonoscopy w/ [facility] in 2020 that was all normal [...] General: No (more content not included)... Normal [facility] Absolute lymphocyte counton 09-02-2021 Lymphocytes Auto (Unsp spec) [#/Vol] 1.66 10*3/uL 0.83-4.51 [facility] Work Phone: Basophil percentageon 2021 Basophils/100 WBC (Bld) 1.2 % 0-1 [facility] Work Phone: Bilirubin [Mass/Vol] 0.50 mg/dL 0.20-1.00 [facility] Work Phone: Comment on above: For patients on eltr ombopag therapy, use of Dimension [place] TBIL is not recommended. Chloride [Moles/Vol] 110 mmol/L 98-107 [facility] Work Phone: Eosinophils/100 WBC (Bld) 4.7 % 0-5 [facility] Work Phone: Glucose [Mass/Vol] 92 mg/dL 74-106 [facility] Work Phone: Neutrophils (Bld) [#/Vol] 1.9 10*3/uL 2.0-7.7 [facility] Work Phone: Neutrophils/100 WBC (Bld) 44.9 % 47-70 [facility] Work Phone: Potassium [Moles/Vol] 4.3 mmol/L 3.5-5.1 [facility] Work Phone: Protein [Mass/Vol] 6.8 g/dL 6.4-8.2 [facility] Work Phone: Sodium [Moles/Vol] 141 mmol/L 136-145 [facility] Work Phone: WBC (Bld) [#/Vol] 4.3 10*3/uL 4.4-11.0 [facility] Work Phone: Blood erythrocytes count (nu mber/volume)on 09-02-2021 RBC (Bld) [#/Vol] 4.35 10*6/uL 4.2-5.4 [facility] Work Phone: Blood hemoglobin measurement (mass/volume)on 09-02-2021 Hemoglobin (Bld) [Mass/Vol] 13.1 g/dL 12.0-15.0 [facility] Work Phone: Blood lymphocytes/100 leukoc yteson 09-02-2021 Lymphocytes/100 WBC (Bld) 38.9 % 19-41 [facility] Work Phone: Blood monocytes/100 leukocyt eson 09-02-2021 Monocytes/100 WBC (Bld) 10.1 % 0-10 [facility] Work Phone: Blood platelet mean volumeon 09-02-2021 Platelet mean volume (Bld) [Entitic vol] 10.0 fL 6.2-12.0 [facility] Work Phone: Determination of erythrocyte mean corpuscular volume (MCV)on 09-02-2021 MCV (RBC) [Entitic vol] 91.3 fL 81-99 [facility] Work Phone: Hematocrit Auto (Bld) [Volum e fraction]on 09-02-2021 Hematocrit (Bld) [Volume fraction] 39.7 % 37-47 [facility] Work Phone: Laboratory - Chemistry and C hemistry - challengeon 09-02-2021 ALP [Catalytic activity/Vol] 62 U/L 45-117 [facility] Work Phone: ALT [Catalytic activity/Vol] 20 U/L 13-56 [facility] Work Phone: CO2 [Moles/Vol] 27.0 mmol/L 21.0-32.0 [facility] Work Phone: Globulin (S) [Mass/Vol] 3.3 g/dL 2.2-4.2 [facility] Work Phone: Urea nitrogen/Creatinine [Mass ratio] 27.2 mg/mg 10-20 [facility] Work Phone: Laboratory - Hematology and Cell countson 09-02-2021 Erythrocyte distribution width (RBC) [Entitic vol] 44.4 fL 35.1-43.9 [facility] Work Phone: Erythrocyte distribution width (RBC) [Ratio] 13.2 % 11.6-14.6 [facility] Work Phone: Immature granulocytes/100 WBC (Bld) 0.200 % 0.0-0.9 [facility] Work Phone: Comment on above: IG% - Immature Granu locytes (promyelocytes, myelocytes and metamyelocytes) > 1% indicates that a LEFT SHIFT is Present. MCH (RBC) [Entitic mass] 30.1 pg 27.0-32.0 [facility] Work Phone: Nucleated RBC/100 WBC (Bld) [Ratio] 0 % 0-5 [facility] Work Phone: MCHC Auto (RBC) [Mass/Vol]on 09-02-2021 MCHC (RBC) [Mass/Vol] 33.0 g/dL 32-36 [facility] Work Phone: No Panel Informationon 09-02 Estimated GFR (MDRD) Amer 88 mL/min >60 [facility] Work Phone: Comment on above: GFR Calc Estimated GFR (MDRD) Non-Af Amer 73 mL/min >60 [facility] Work Phone: Comment on above: Non- GFR Calc Thyroid Stimulating Hormone (TSH) 3.51 uIU/mL 0.358-3.74 [facility] Work Phone: Vitamin D 25-Hydroxy 35.2 ng/mL [facility] Work Phone: Comment on above: Vitamin D 25(OH) Sta tus Range Deficiency <20 ng/mL (50nmol/L) Insufficiency 20 - 30 ng/mL (50 - 75 nmol/L) Sufficiency 30 - 100 ng/mL (75 - 250 nmol/L) Toxicity >100 ng/mL (>250 nmol/L) Platelets bldon 09-02-2021 Platelets (Bld) [#/Vol] 200 10*3/uL 150-450 [facility] Work Phone: Serum or plasma albumin franklin urement (mass/volume)on 09-02-2021 Albumin [Mass/Vol] 3.5 g/dL 3.2-5.0 [facility] Work Phone: Serum or plasma albumin/glob ulin mass ratioon 09-02-2021 Albumin/Globulin [Mass ratio] 1.1 {ratio} 0.9-2.4 [facility] Work Phone: Serum or plasma calcium franklin urement (mass/volume)on 09-02-2021 Calcium [Mass/Vol] 8.4 mg/dL 8.5-10.1 [facility] Work Phone: Serum or plasma creatinine m easurement (mass/volume)on 09-02-2021 Creatinine [Mass/Vol] 0.81 mg/dL 0.55-1.02 [facility] Work Phone: Comment on above: The validity of the calculated GFR & GFRAA in patients over 70 years has not been determined. Clinical correlation is essential. Serum or plasma urea nitroge n measurement (mass/volume)on 09-02-2021 Urea nitrogen [Mass/Vol] 22 mg/dL 7-18 [facility] Work Phone: Thin prep Papanicolaou smear with manual screeningon 09-02-2021 Thin prep Papanicolaou smear with manual screening 30 U/L 15-37 [facility] Work Phone: Thin prep Papanicolaou smear with manual screening 4 5-15 [facility] Work Phone: Whole blood hemoglobin A1c/t otal hemoglobin ratio (mass fraction)on 09-02-2021 HbA1c (Bld) [Mass fraction] 5.5 % 3.8-5.6 [facility] Work Phone: Comment on above: Normal < 5.7 % Predi abetic 5.7 - 6.4 % Diabetic >or= 6.5 % Please note range changes. Absolute lymphocyte counton 05-17-2021 Lymphocytes Auto (Unsp spec) [#/Vol] 1.88 10*3/uL 0.83-4.51 [facility] Work Phone: Basophil percentageon 2021 Basophils/100 WBC (Bld) 1.1 % 0-1 [facility] Work Phone: Bilirubin [Mass/Vol] 0.60 mg/dL 0.20-1.00 [facility] Work Phone: Comment on above: For patients on eltr ombopag therapy, use of Dimension [place] TBIL is not recommended. Chloride [Moles/Vol] 106 mmol/L 98-107 [facility] Work Phone: Cholesterol [Mass/Vol] 182 mg/dL <200 [facility] Work Phone: Comment on above: <200 mg/dL Desirable 200-240 mg/dL Borderline >240 mg/dL High Risk Eosinophils/100 WBC (Bld) 4.1 % 0-5 [facility] Work Phone: Glucose [Mass/Vol] 87 mg/dL 74-106 [facility] Work Phone: Neutrophils (Bld) [#/Vol] 1.9 10*3/uL 2.0-7.7 [facility] Work Phone: Neutrophils/100 WBC (Bld) 41.7 % 47-70 [facility] Work Phone: Potassium [Moles/Vol] 4.0 mmol/L 3.5-5.1 [facility] Work Phone: Protein [Mass/Vol] 7.0 g/dL 6.4-8.2 [facility] Work Phone: Sodium [Moles/Vol] 141 mmol/L 136-145 [facility] Work Phone: Triglyceride [Mass/Vol] 38 mg/dL <199 [facility] Work Phone: Comment on above: The drugs N-Acetylcy steine and Metamizole may falsely depress this assay.Serum Triglycerides Reference Interval Normal <150 mg/dL Borderline high 150 - 199 mg/dL High 200 - 499 mg/dL Very High > or = 500 mg/dL WBC (Bld) [#/Vol] 4.4 10*3/uL 4.4-11.0 [facility] Work Phone: Blood erythrocytes count (nu mber/volume)on 05-17-2021 RBC (Bld) [#/Vol] 4.40 10*6/uL 4.2-5.4 [facility] Work Phone: Blood hemoglobin measurement (mass/volume)on 05-17-2021 Hemoglobin (Bld) [Mass/Vol] 13.3 g/dL 12.0-15.0 [facility] Work Phone: Blood lymphocytes/100 leukoc yteson 05-17-2021 Lymphocytes/100 WBC (Bld) 42.3 % 19-41 [facility] Work Phone: Blood monocytes/100 leukocyt eson 05-17-2021 Monocytes/100 WBC (Bld) 10.6 % 0-10 [facility] Work Phone: Blood platelet mean volumeon 05-17-2021 Platelet mean volume (Bld) [Entitic vol] 10.1 fL 6.2-12.0 [facility] Work Phone: Determination of erythrocyte mean corpuscular volume (MCV)on 05-17-2021 MCV (RBC) [Entitic vol] 92.0 fL 81-99 [facility] Work Phone: Hematocrit Auto (Bld) [Volum e fraction]on 05-17-2021 Hematocrit (Bld) [Volume fraction] 40.5 % 37-47 [facility] Work Phone: Laboratory - Chemistry and C hemistry - challengeon 05-17-2021 ALP [Catalytic activity/Vol] 92 U/L 45-117 [facility] Work Phone: ALT [Catalytic activity/Vol] 24 U/L 13-56 [facility] Work Phone: CO2 [Moles/Vol] 31.0 mmol/L 21.0-32.0 [facility] Work Phone: Globulin (S) [Mass/Vol] 3.4 g/dL 2.2-4.2 [facility] Work Phone: Urea nitrogen/Creatinine [Mass ratio] 36.3 mg/mg 10-20 [facility] Work Phone: Laboratory - Hematology and Cell countson 05-17-2021 Erythrocyte distribution width (RBC) [Entitic vol] 44.3 fL 35.1-43.9 [facility] Work Phone: Erythrocyte distribution width (RBC) [Ratio] 13.1 % 11.6-14.6 [facility] Work Phone: Immature granulocytes/100 WBC (Bld) 0.200 % 0.0-0.9 [facility] Work Phone: Comment on above: IG% - Immature Granu locytes (promyelocytes, myelocytes and metamyelocytes) > 1% indicates that a LEFT SHIFT is Present. MCH (RBC) [Entitic mass] 30.2 pg 27.0-32.0 [facility] Work Phone: Nucleated RBC/100 WBC (Bld) [Ratio] 0 % 0-5 [facility] Work Phone: MCHC Auto (RBC) [Mass/Vol]on 05-17-2021 MCHC (RBC) [Mass/Vol] 32.8 g/dL 32-36 [facility] Work Phone: No Panel Informationon 05-17 Estimated GFR (MDRD) Amer 97 mL/min >60 [facility] Work Phone: Comment on above: GFR Calc Estimated GFR (MDRD) Non-Af Amer 80 mL/min >60 [facility] Work Phone: Comment on above: Non- GFR Calc Miscellaneous Test See comment [facility] Work Phone: Comment on above: TEST RESULT LIMITSSA RS-CoV-2 Semi-Quant Total [id number] Semi-Quant Total Ab A, >2500.0 U/mL Negative [...] levels.SARS-CoV-2 Ivan Ab Interp A, Positive Betsy Dropost.its [id number] SCommentsA: This test has not been FDA [...] viruses or pathogens. ___ TESTING PERFORMED AT [facility]. ORIGINAL REPORT ON FILE IN LAB CONTAINS ADDITIONAL TEST SITE INFORMATION. Platelets bldon 05-17-2021 Platelets (Bld) [#/Vol] 203 10*3/uL 150-450 [facility] Work Phone: Serum or plasma albumin franklin urement (mass/volume)on 05-17-2021 Albumin [Mass/Vol] 3.6 g/dL 3.2-5.0 [facility] Work Phone: Serum or plasma albumin/glob ulin mass ratioon 05-17-2021 Albumin/Globulin [Mass ratio] 1.1 {ratio} 0.9-2.4 [facility] Work Phone: Serum or plasma calcium franklin urement (mass/volume)on 05-17-2021 Calcium [Mass/Vol] 8.8 mg/dL 8.5-10.1 [facility] Work Phone: Serum or plasma cholesterol in HDL measurement (mass/volume)on 05-17-2021 Cholesterol in HDL [Mass/Vol] 111 mg/dL >40 [facility] Work Phone: Comment on above: The drugs N-Acetylcy steine and Metamizole may falsely depress this assay. Reference Range HDL <40 mg/dL Low HDL Cholesterol HDL >or= 60 mg/dL High HDL Cholesterol Serum or plasma cholesterol in VLDL measurement (mass/volume)on 05-17-2021 Cholesterol in VLDL [Mass/Vol] 8 mg/dL 5-40 [facility] Work Phone: Serum or plasma creatinine m easurement (mass/volume)on 05-17-2021 Creatinine [Mass/Vol] 0.74 mg/dL 0.55-1.02 [facility] Work Phone: Comment on above: The validity of the calculated GFR & GFRAA in patients over 70 years has not been determined. Clinical correlation is essential. Serum or plasma low density lipoprotein (LDL) cholesterol measurement (mass/volume)on 05-17-2021 Cholesterol in LDL [Mass/Vol] 63 mg/dL 0-130 [facility] Work Phone: Serum or plasma urea nitroge n measurement (mass/volume)on 05-17-2021 Urea nitrogen [Mass/Vol] 27 mg/dL 7-18 [facility] Work Phone: Thin prep Papanicolaou smear with manual screeningon 05-17-2021 Thin prep Papanicolaou smear with manual screening 25 U/L 15-37 [facility] Work Phone: Thin prep Papanicolaou smear with manual screening 4 5-15 [facility] Work Phone: Whole blood hemoglobin A1c/t otal hemoglobin ratio (mass fraction)on 05-17-2021 HbA1c (Bld) [Mass fraction] 5.5 % 3.8-5.6 [facility] Work Phone: Comment on above: Normal < 5.7 % Predi abetic 5.7 - 6.4 % Diabetic >or= 6.5 % Please note range changes. CNOVon 01-06-2021 CNOV Office Visit ([facility] ) ----- BREANNA PURCELL ([id number]) 1940 F Date Time Provider Department 01/06/21 [...] Laterality Date - COLONOSCOP W/ OR W/O BRS SPEC 10/07/2002 Colonoscopy - COLONOSCOP W/ OR W/O BRSH SPEC 04/11/2006 - COLONOSCOP W/ OR W/O BRSH SPEC 04/08/2010 due 04/2014 - COLONOSCOP W/ [...] of mot (more content not included)... Normal [facility] SARS-CoV-2 Semi-Quantitative Total Antibody, Ivan ([id number])Ordered By: Bottling Line Operator on 01-04-2021 SARS-CoV-2 Semi-Quantitative Total Antibody, Ivan ([id number]) >2500.0 Normal [facility]; [facility] Work Phone: SARS-CoV-2 Semi-Quantitative Total Antibody, Ivan ([id number]) Positive Normal [facility]; [facility] Work Phone: CBC W/AUTO DIFF WBC ([id number])O rdered By: Bottling Line Operator on 12-23-2020 Basophils (Bld) [#/Vol] 0.0 10*3/uL [...] MCHC (RBC) [Mass/Vol] 32.3 g/dL Normal 31.5-35.7 [facility]; [facility] Work [...] Phone: Neutrophils/100 WBC (Bld) 44 % Normal [facility]; [facility] Work Phone: Platelets (Bld) [#/Vol] 215 10*3/uL Normal 150-450 [facility]; [facility] Work Phone: RBC (Bld) [#/Vol] 4.19 10*6/uL Normal 3.77-5.28 [facility]; [facility] Work Phone: WBC (Bld) [#/Vol] 3.8 10*3/uL Normal 3.4-10.8 [facility]; [facility] Work Phone: FERRITIN ([id number])Ordered By: Bottling Line Operator on 12-23-2020 Ferritin [Mass/Vol] 70 ng/mL Normal 15-150 [facility] Work Phone: IRON BINDING CAPACITY (TIBC) ([id number])Ordered By: Bottling Line Operator on 12-23-2020 Iron [Mass/Vol] 65 ug/dL Normal 27-139 [facility]; [facility] Work Phone: Iron binding capacity [Mass/Vol] 398 ug/dL Normal 250-450 [facility]; [facility] Work Phone: Iron binding capacity.unsaturated [Mass/Vol] 333 ug/dL Normal 118-369 [facility]; [facility] Work Phone: Iron saturation [Mass fraction] 16 % Normal 15-55 [facility]; [facility] Work Phone: LDH (LD) (LACTATE DEHYDROGEN ASE) ([id number])Ordered By: Bottling Line Operator on 12-23-2020 LDH [Catalytic activity/Vol] 182 U/L Normal 119-226 [facility]; [facility] Work Phone: METABOLIC PANEL, COMPREHENSI VE ([id number])Ordered By: Bottling Line Operator on 12-23-2020 Albumin [Mass/Vol] 4.3 g/dL Normal 3.7-4.7 [facility]; [facility] Work Phone: Albumin/Globulin [Mass ratio] 1.9 {ratio} Normal 1.2-2.2 [facility]; [facility] Work Phone: ALP [Catalytic activity/Vol] 73 U/L Normal 44-121 [facility]; [facility] Work Phone: ALT [Catalytic activity/Vol] 19 U/L Normal 0-32 [facility]; [facility] Work Phone: AST [Catalytic activity/Vol] 28 U/L Normal 0-40 [facility]; [facility] Work Phone: Bilirubin [Mass/Vol] 0.4 mg/dL Normal 0.0-1.2 [facility]; [facility] Work Phone: Calcium [Mass/Vol] 9.9 mg/dL Normal 8.7-10.3 [facility]; [facility] Work Phone: Chloride [Moles/Vol] 103 mmol/L Normal 96-106 [facility]; [facility] Work Phone: CO2 [Moles/Vol] 26 mmol/L Normal 20-29 [facility]; [facility] Work Phone: Creatinine [Mass/Vol] 0.84 mg/dL Normal 0.57-1.00 [facility]; [facility] Work Phone: GFR/1.73 sq M.predicted among blacks CKD-EPI (S/P/Bld) [Vol rate/Area] 76 mL/min/1.73 Normal [facility]; [facility] Work Phone: GFR/1.73 sq M.predicted among non-blacks CKD-EPI (S/P/Bld) [Vol rate/Area] 66 mL/min/1.73 Normal [facility]; [facility] Work Phone: Globulin (S) [Mass/Vol] 2.3 g/dL Normal 1.5-4.5 [facility]; [facility] Work Phone: Glucose [Mass/Vol] 86 mg/dL Normal 65-99 [facility]; [facility] Work Phone: Potassium [Moles/Vol] 4.4 mmol/L Normal 3.5-5.2 [facility]; [facility] Work Phone: Protein [Mass/Vol] 6.6 g/dL Normal 6.0-8.5 [facility]; [facility] Work Phone: Sodium [Moles/Vol] 142 mmol/L Normal 134-144 [facility]; [facility] Work Phone: Urea nitrogen [Mass/Vol] 32 mg/dL Abnormal 8- [facility]; [facility] Work Phone: Urea nitrogen/Creatinine [Mass ratio] 38 mg/mg Abnormal 03-02 [facility]; [facility] Work Phone: RETICULOCYTE COUNT MANUL ([phone])Ordered By: Bottling Line Operator on 12-23-2020 Reticulocytes/100 RBC (Bld) 0.6 % Normal 0.6-2.6 [facility]; [facility] Work Phone: VITAMIN B-12 (CYANOCOBALAMIN ) ([id number])Ordered By: Bottling Line Operator on 12-23-2020 Cobalamin (Vitamin B12) [Mass/Vol] 745 pg/mL Normal 232-1245 [facility]; [facility] Work Phone: MICROALBUMINOrdered By: Syst em Flask Carrier on 11-02-2020 Albumin DL <= 20 mg/L (U) [Mass/Vol] 4.6 ug/mL Normal [facility]; [facility] Work Phone: Albumin/Creatinine (U) [Mass ratio] 7 {mg/g_creat} Normal 0-29 [facility]; [facility] Work Phone: Creatinine (U) [Mass/Vol] 64.6 mg/dL Normal [facility]; [facility] Work Phone: URINE TORIE CULTURE-IDENTIFICA [place] ([id number])Ordered By: Bottling Line Operator on 11-02-2020 Bacteria identified Cx Nom (U) Final report Normal [facility]; [facility] Work Phone: Bacteria identified Cx Nom (U) MUG Normal [facility]; [facility] Work Phone: URINE TORIE CULTURE-IDENTIFICA [place] ([id number])Ordered By: Bottling Line Operator on 03-10-2020 Bacteria identified Cx Nom (U) [...] A). (CLSI) PATIENT NOT FASTINGP ERFORMED BY: [email or web address] [facility] HealthcareCritical [facility] [id number] Information: SRC: Bacteria identified Cx Nom (U) Final report Abnormal [facility]; [facility] Work Phone: Comment on above: PATIENT NOT FASTINGP ERFORMED BY: LabSyntervention Tonxif7128 [address] Loved.laCritical access hospital [id number] Information: SRC: Urinalysis, Office (07565)Or dered By: Reina Estrada on 03-09-2020 Bilirubin [...] Medicine Work Phone: CBC W/AUTO DIFF WBC (25350)O rdered By: Bottling Line Operator on 01-01-2020 Basophils (Bld) [#/Vol] 0.1 {x10E3/uL} Normal 0.0-0.2 [facility] Work Phone: Comment on above: PATIENT WAS FASTINGP ERFORMED BY: UsTrendyox Loved.laCritical access hospital [id number] Information: NURSE DRAW Basophils (Bld) [#/Vol] 0.1 10*3/uL Normal 0.0-0.2 [facility]; [facility] Work Phone: Comment on above: PATIENT WAS FASTINGP ERFORMED BY: UsTrendyox Loved.laCritical access hospital [id number] Information: NURSE DRAW Basophils/100 WBC (Bld) 1 % Normal [facility] Work Phone: Comment on above: PATIENT WAS FASTINGP ERFORMED BY: GetNotes [address] Loved.laCritical access hospital [id number] Information: NURSE DRAW Eosinophils (Bld) [#/Vol] 0.2 {x10E3/uL} Normal 0.0-0.4 [facility] Work Phone: Comment on above: PATIENT WAS FASTINGP ERFORMED BY: [facility] Trixfr8334 [facility] [id number] Information: NURSE DRAW Eosinophils (Bld) [#/Vol] 0.2 10*3/uL Normal 0.0-0.4 [facility]; [facility] Work Phone: Comment on above: PATIENT WAS FASTINGP ERFORMED BY: LIT [address] [id number] Information: NURSE DRAW Eosinophils/100 WBC (Bld) 3 % Normal [facility] Work Phone: Comment on above: PATIENT WAS FASTINGP ERFORMED BY: LIT [address] [id number] Information: NURSE DRAW Erythrocyte distribution width (RBC) [Ratio] 12.4 % Normal 11.7-15.4 [facility] Work Phone: Comment on above: PATIENT WAS FASTINGP ERFORMED BY: LIT [address] [id number] Information: NURSE DRAW Hematocrit (Bld) [Volume fraction] 38.4 % Normal 34.0-46.6 [facility] Work Phone: Comment on above: PATIENT WAS FASTINGP ERFORMED BY: [address] [id number] Information: NURSE DRAW Hemoglobin (Bld) [Mass/Vol] 13.2 g/dL Normal 11.1-15.9 [facility] Work Phone: Comment on above: PATIENT WAS FASTINGP ERFORMED BY: LIT [address] [id number] Information: NURSE DRAW Immature granulocytes (Bld) [#/Vol] 0.0 {x10E3/uL} Normal 0.0-0.1 [facility] Work Phone: Comment on above: PATIENT WAS FASTINGP ERFORMED BY: [place] [id number] [facility] [id number] Information: NURSE DRAW Immature granulocytes (Bld) [#/Vol] 0.0 10*3/uL Normal 0.0-0.1 [facility]; [facility] Work Phone: Comment on above: PATIENT WAS FASTINGP ERFORMED BY: [address] [id number] Information: NURSE DRAW Immature granulocytes/100 WBC (Bld) 0 % Normal [facility] Work Phone: Comment on above: PATIENT WAS FASTINGP ERFORMED BY: [address] [id number] Information: NURSE DRAW Lymphocytes (Bld) [#/Vol] 2.0 {x10E3/uL} Normal 0.7-3.1 [facility] Work Phone: Comment on above: PATIENT WAS FASTINGP ERFORMED BY: [address] [id number] Information: NURSE DRAW Lymphocytes (Bld) [#/Vol] 2.0 10*3/uL Normal 0.7-3.1 [facility]; [facility] Work Phone: Comment on above: PATIENT WAS FASTINGP ERFORMED BY: [address] [id number] Information: NURSE DRAW Lymphocytes/100 WBC (Bld) 41 % Normal [facility] Work Phone: Comment on above: PATIENT WAS FASTINGP ERFORMED BY: [address] [id number] Information: NURSE DRAW MCH (RBC) [Entitic mass] 31.4 pg Normal 26.6-33.0 [facility] Work Phone: Comment on above: PATIENT WAS FASTINGP ERFORMED BY: [address] [id number] Information: NURSE DRAW MCHC (RBC) [Mass/Vol] 34.4 g/dL Normal 31.5-35.7 [facility] prehensive Internal Medicine Work Phone: Comment on above: PATIENT WAS FASTINGP ERFORMED BY: LIT Mike [address] [id number] Information: NURSE DRAW MCV (RBC) [Entitic vol] 91 fL Normal 79-97 [facility] Work Phone: Comment on above: PATIENT WAS FASTINGP ERFORMED BY: [address] [id number] Information: NURSE DRAW Monocytes (Bld) [#/Vol] 0.5 {x10E3/uL} Normal 0.1-0.9 [facility] Internal Medicine Work Phone: Comment on above: PATIENT WAS FASTINGP ERFORMED BY: [address] [id number] Information: NURSE DRAW Monocytes (Bld) [#/Vol] 0.5 10*3/uL Normal 0.1-0.9 [facility]; [facility] Work Phone: Comment on above: PATIENT WAS FASTINGP ERFORMED BY: LIT [address] [id number] Information: NURSE DRAW Monocytes/100 WBC (Bld) 9 % Normal [facility] Work Phone: Comment on above: PATIENT WAS FASTINGP ERFORMED BY: [address] [id number] Information: NURSE DRAW Neutrophils (Bld) [#/Vol] 2.2 {x10E3/uL} Normal 1.4-7.0 [facility] Work Phone: Comment on above: PATIENT WAS FASTINGP ERFORMED BY: [address] [id number] Information: NURSE DRAW Neutrophils (Bld) [#/Vol] 2.2 10*3/uL Normal 1.4-7.0 [facility]; [facility] Work Phone: Comment on above: PATIENT WAS FASTINGP ERFORMED BY: LIT JoseDimas LuongTvaisf7396 [facility] [id number] Information: NURSE DRAW Neutrophils/100 WBC (Bld) 46 % Normal [facility] Work Phone: Comment on above: PATIENT WAS FASTINGP ERFORMED BY: LIT Luong[address] [id number] Information: NURSE DRAW Platelets (Bld) [#/Vol] 209 {x10E3/uL} Normal 150-450 [facility] Internal Medicine Work Phone: Comment on above: PATIENT WAS FASTINGP ERFORMED BY: LIT Luong[address] [id number] Information: NURSE DRAW Platelets (Bld) [#/Vol] 209 10*3/uL Normal 150-450 [facility] Internal [facility]; [facility] Work Phone: Comment on above: PATIENT WAS FASTINGP ERFORMED BY: LIT Luong[address] [id number] Information: NURSE DRAW RBC (Bld) [#/Vol] 4.20 {x10E6/uL} Normal 3.77-5.28 [facility] Internal Medicine Work Phone: Comment on above: PATIENT WAS FASTINGP ERFORMED BY: LIT Luong[address] [id number] Information: NURSE DRAW RBC (Bld) [#/Vol] 4.20 10*6/uL Normal 3.77-5.28 [facility] Internal Medicine; [facility] Internal Medicine Work Phone: Comment on above: PATIENT WAS FASTINGP ERFORMED BY: LIT JoseDimas LuongVhawxm0540 [facility] [id number] Information: NURSE DRAW WBC (Bld) [#/Vol] 4.9 {x10E3/uL} Normal 3.4-10.8 [facility] Internal Medicine Work Phone: Comment on above: PATIENT WAS FASTINGP ERFORMED BY: LIT [facility] Xbsscr3670 [address] RoadDublin [place] [id number] Information: NURSE DRAW WBC (Bld) [#/Vol] 4.9 10*3/uL Normal 3.4-10.8 [facility] Internal Medicine; [facility] Internal Medicine Work Phone: Comment on above: PATIENT WAS FASTINGP ERFORMED BY: CB [facility] Dfmclm2430 [address] RoadDublin [place] [id number] Information: NURSE DRAW METABOLIC PANEL, FIDELLESA ISIAH (84693)Ordered By: Bottling Line Operator on 01-01-2020 Albumin [Mass/Vol] 4.5 g/dL Normal 3.7-4.7 [facility] Internal Medicine Work Phone: Comment on above: PATIENT WAS FASTINGP ERFORMED BY: LIT [facility] Vsqcio5960 [address]za RoadDublin [place] [id number] Albumin/Globulin [Mass ratio] 2.0 {ratio} Normal 1.2-2.2 [facility] Work Phone: Comment on above: PATIENT WAS FASTINGP ERFORMED BY: CB [facility] Ngfroq8070 [address] RoadDublin [place] [id number] ALP [Catalytic activity/Vol] 51 [iU]/L Normal 39-117 [facility] Work Phone: Comment on above: PATIENT WAS FASTINGP ERFORMED BY: LIT [facility] Hwopvr3489 [address]za RoadDublin [place] [id number] ALP [Catalytic activity/Vol] 51 U/L Normal 39-117 [facility]; [facility] Internal Medicine Work Phone: Comment on above: PATIENT WAS FASTINGP ERFORMED BY: CB [facility] Hoganl4390 [address]za RoadDublin [place] [id number] ALT [Catalytic activity/Vol] 14 [iU]/L Normal 0-32 [facility] Work Phone: Comment on above: PATIENT WAS FASTINGP ERFORMED BY: CB [facility] Wgqmxs0435 [address] RoadDublin [place] [id number] ALT [Catalytic activity/Vol] 14 U/L Normal 0-32 [facility]; [facility] Work Phone: Comment on above: PATIENT WAS FASTINGP ERFORMED BY: CB [facility] Idnezf3090 [address] RoadDublin [place] [id number] AST [Catalytic activity/Vol] 25 [iU]/L Normal 0-40 [facility] Work Phone: Comment on above: PATIENT WAS FASTINGP ERFORMED BY: CB [facility] Ycifhr2637 [address] RoadDublin [place] [id number] AST [Catalytic activity/Vol] 25 U/L Normal 0-40 [facility]; [facility] Internal Medicine Work Phone: Comment on above: PATIENT WAS FASTINGP ERFORMED BY: [facility] Tyfrfh8364 [address] RoadDublin [place] [id number] Bilirubin [Mass/Vol] 0.6 mg/dL Normal 0.0-1.2 [facility] Work Phone: Comment on above: PATIENT WAS FASTINGP ERFORMED BY: [facility] Blxnpy3385 [address]za RoadDublin [place] [id number] Calcium [Mass/Vol] 9.5 mg/dL Normal 8.7-10.3 [facility] Internal Medicine Work Phone: Comment on above: PATIENT WAS FASTINGP ERFORMED BY: [facility] Fdogev7164 [address]za RoadDublin [place] [id number] Chloride [Moles/Vol] 104 mmol/L Normal 96-106 [facility] Work Phone: Comment on above: PATIENT WAS FASTINGP ERFORMED BY: [facility] Pnetea1545 [address] RoadDublin [place] [id number] CO2 [Moles/Vol] 28 mmol/L Normal 20-29 [facility] Internal Medicine Work Phone: Comment on above: PATIENT WAS FASTINGP ERFORMED BY: CB [facility] Nkkgxu4069 [address] RoadDublin [place] [id number] Creatinine [Mass/Vol] 0.90 mg/dL Normal 0.57-1.00 [facility] Work Phone: Comment on above: PATIENT WAS FASTINGP ERFORMED BY: CB [facility] Taamhx1829 [address] RoadDublin [place] [id number] GFR/1.73 sq M predicted among blacks CKD-EPI (S/P/Bld) [Vol rate/Area] 71 mL/min/1.73 Normal [facility] Work Phone: Comment on above: PATIENT WAS FASTINGP ERFORMED BY: CB [facility] Wovqqa8485 [address] RoadDublin [place] [id number] GFR/1.73 sq M predicted among non-blacks CKD-EPI (S/P/Bld) [Vol rate/Area] 61 mL/min/1.73 Normal [facility] Work Phone: Comment on above: PATIENT WAS FASTINGP ERFORMED BY: [facility] Tishzc3933 [address] RoadDublin [place] [id number] Globulin (S) [Mass/Vol] 2.3 g/dL Normal 1.5-4.5 [facility] Internal Medicine Work Phone: Comment on above: PATIENT WAS FASTINGP ERFORMED BY: [facility] Tmveog2149 [address] RoadDublin [place] [id number] Glucose [Mass/Vol] 81 mg/dL Normal 65-99 [facility] Internal Medicine Work Phone: Comment on above: PATIENT WAS FASTINGP ERFORMED BY: [facility] Aeyqfm0073 [address] RoadDublin [place] [id number] Potassium [Moles/Vol] 4.3 mmol/L Normal 3.5-5.2 [facility] Internal Medicine Work Phone: Comment on above: PATIENT WAS FASTINGP ERFORMED BY: CB [facility] Qmmtjl7151 [address] RoadDublin [place] [id number] Protein [Mass/Vol] 6.8 g/dL Normal 6.0-8.5 [facility] Internal Medicine Work Phone: Comment on above: PATIENT WAS FASTINGP ERFORMED BY: CB [facility] Gxiwys2997 [address] RoadDublin [place] [id number] Sodium [Moles/Vol] 143 mmol/L Normal 134-144 [facility] Internal Medicine Work Phone: Comment on above: PATIENT WAS FASTINGP ERFORMED BY: LIT JoseDimas Xlugem0588 [facility] [id number] Urea nitrogen [Mass/Vol] 34 mg/dL Abnormal 10-30 [facility] Work Phone: Comment on above: PATIENT WAS FASTINGP ERFORMED BY: LIT [facility]Ex[facility] Qxiqno5024 [facility] [id number] Urea nitrogen/Creatinine [Mass ratio] 38 mg/mg Abnormal 03-02 [facility] Work Phone: Comment on above: PATIENT WAS FASTINGP ERFORMED BY: LIT JoseDimas LuongNnjmpn8464 [facility] [id number] CBC W/AUTO DIFF WBC ([id number])O rdered By: Bottling Line Operator on 01-16-2019 Basophils (Bld) [#/Vol] 0.1 {x10E3/uL} Normal 0.0-0.2 [facility] Work Phone: Comment on above: PATIENT WAS FASTINGP ERFORMED BY: LIT Luonglin6370 [facility] [id number]; wellness on 01/30 Basophils (Bld) [#/Vol] 0.1 10*3/uL Normal 0.0-0.2 [facility]; [facility] Work Phone: Comment on above: PATIENT WAS FASTINGP ERFORMED BY: LIT [facility]Ex[facility] Jbyekd2515 [facility] [id number]; wellness on 01/30 Basophils/100 WBC (Bld) 1 % Normal [facility] Work Phone: Comment on above: PATIENT WAS FASTINGP ERFORMED BY: LIT JoseHenry [facility]6370 [facility] [id number]; wellness on 01/30 Eosinophils (Bld) [#/Vol] 0.2 {x10E3/uL} Normal 0.0-0.4 [facility] Work Phone: Comment on above: PATIENT WAS FASTINGP ERFORMED BY: LIT Mckeon Wwhuwh1057 [address] RoadCentral Harnett Hospitalin [place] [id number]; wellness on 01/30 Eosinophils (Bld) [#/Vol] 0.2 10*3/uL Normal 0.0-0.4 [facility]; [facility] Work Phone: Comment on above: PATIENT WAS FASTINGP ERFORMED BY: [facility] Hbyfnt4868 Mnedoza RoadCentral Harnett Hospitalin [place] [id number]; wellness on 01/30 Eosinophils/100 WBC (Bld) 4 % Normal [facility] Work Phone: Comment on above: PATIENT WAS FASTINGP ERFORMED BY: [facility] W[address]grk[address] [facility] [id number]; wellness on 01/30 Erythrocyte distribution width (RBC) [Ratio] 14.0 % Normal 12.3-15.4 [facility] Work Phone: Comment on above: PATIENT WAS FASTINGP ERFORMED BY: [facility] Wsrzhq[address] [facility] [id number]; wellness on 01/30 Hematocrit (Bld) [Volume fraction] 39.4 % Normal 34.0-46.6 [facility] Work Phone: Comment on above: PATIENT WAS FASTINGP ERFORMED BY: [facility] Nsxjfb[address] [facility] [id number]; wellness on 01/30 Hemoglobin (Bld) [Mass/Vol] 13.2 g/dL Normal 11.1-15.9 [facility] Work Phone: Comment on above: PATIENT WAS FASTINGP ERFORMED BY: [facility] Piqtlq2024 [address] [facility]in [place] [id number]; wellness on 01/30 Immature granulocytes (Bld) [#/Vol] 0.0 {x10E3/uL} Normal 0.0-0.1 [facility] Work Phone: Comment on above: PATIENT WAS FASTINGP ERFORMED BY: [facility] Fpyxvd1436 [address] Roadblin [place] [id number]; wellness on 01/30 Immature granulocytes (Bld) [#/Vol] 0.0 10*3/uL Normal 0.0-0.1 [facility]; [facility] Work Phone: Comment on above: PATIENT WAS FASTINGP ERFORMED BY: LIT Gallardo6370 [facility] [id number]; wellness on 01/30 Immature granulocytes/100 WBC (Bld) 0 % Normal [facility] Work Phone: Comment on above: PATIENT WAS FASTINGP ERFORMED BY: LIT Declan Luonglin6370 [facility] [id number]; wellness on 01/30 Lymphocytes (Bld) [#/Vol] 1.9 {x10E3/uL} Normal 0.7-3.1 [facility] Internal Medicine Work Phone: Comment on above: PATIENT WAS FASTINGP ERFORMED BY: LIT Mike Vqjnwi6103 [facility] [id number]; wellness on 01/30 Lymphocytes (Bld) [#/Vol] 1.9 10*3/uL Normal 0.7-3.1 [facility] Internal [facility]; [facility] Work Phone: Comment on above: PATIENT WAS FASTINGP ERFORMED BY: LIT Declan Luonglin6370 [facility] [id number]; wellness on 01/30 Lymphocytes/100 WBC (Bld) 42 % Normal [facility] Internal Medicine Work Phone: Comment on above: PATIENT WAS FASTINGP ERFORMED BY: LIT [facility]Ex[facility] Qwpgnu0821 [facility] [id number]; wellness on 01/30 MCH (RBC) [Entitic mass] 30.9 pg Normal 26.6-33.0 [facility] Internal Medicine Work Phone: Comment on above: PATIENT WAS FASTINGP ERFORMED BY: LIT LabDomonique Etsqkc0727 [facility] [id number]; wellness on 01/30 MCHC (RBC) [Mass/Vol] 33.5 g/dL Normal 31.5-35.7 [facility] prehensive Internal Medicine Work Phone: Comment on above: PATIENT WAS FASTINGP ERFORMED BY: LIT [facility] Rjvcvx3952 [address] RoadDublin [place] [id number]; wellness on 01/30 MCV (RBC) [Entitic vol] 92 fL Normal 79-97 [facility] Work Phone: Comment on above: PATIENT WAS FASTINGP ERFORMED BY: LIT [facility] Tsnoix0342 [address] RoadDublin [place] [id number]; wellness on 01/30 Monocytes (Bld) [#/Vol] 0.3 {x10E3/uL} Normal 0.1-0.9 [facility] Work Phone: Comment on above: PATIENT WAS FASTINGP ERFORMED BY: LIT [facility] Pcbpsz0347 [address] RoadDublin [place] [id number]; wellness on 01/30 Monocytes (Bld) [#/Vol] 0.3 10*3/uL Normal 0.1-0.9 [facility]; [facility] Work Phone: Comment on above: PATIENT WAS FASTINGP ERFORMED BY: LIT [facility] Cfjnjn0496 [address] RoadDublin [place] [id number]; wellness on 01/30 Monocytes/100 WBC (Bld) 6 % Normal [facility] Work Phone: Comment on above: PATIENT WAS FASTINGP ERFORMED BY: LIT [facility] Bvjlpx7604 [address] RoadDublin [place] [id number]; wellness on 01/30 Neutrophils (Bld) [#/Vol] 2.1 {x10E3/uL} Normal 1.4-7.0 [facility] Work Phone: Comment on above: PATIENT WAS FASTINGP ERFORMED BY: LIT [facility] Ociyfw5293 [address] RoadDublin [place] [id number]; wellness on 01/30 Neutrophils (Bld) [#/Vol] 2.1 10*3/uL Normal 1.4-7.0 [facility]; [facility] Work Phone: Comment on above: PATIENT WAS FASTINGP ERFORMED BY: LIT [facility] Vsxyew5365 [address] RoadDublin [place] [id number]; wellness on 01/30 Neutrophils/100 WBC (Bld) 47 % Normal [facility] Work Phone: Comment on above: PATIENT WAS FASTINGP ERFORMED BY: LIT [facility] Apdsxx9280 [address] RoadDublin [place] [id number]; wellness on 01/30 Platelets (Bld) [#/Vol] 214 {x10E3/uL} Normal 150-450 [facility] Work Phone: Comment on above: PATIENT WAS FASTINGP ERFORMED BY: CB [facility] Ubrjaf0467 [address] RoadDublin [place] [id number]; wellness on 01/30 Platelets (Bld) [#/Vol] 214 10*3/uL Normal 150-450 [facility]; [facility] Work Phone: Comment on above: PATIENT WAS FASTINGP ERFORMED BY: LIT [facility] Ldrsvx6451 [address] RoadDublin [place] [id number]; wellness on 01/30 RBC (Bld) [#/Vol] 4.27 {x10E6/uL} Normal 3.77-5.28 [facility] Internal Medicine Work Phone: Comment on above: PATIENT WAS FASTINGP ERFORMED BY: LIT [facility] Hbwbyv9318 [address] RoadDublin [place] [id number]; wellness on 01/30 RBC (Bld) [#/Vol] 4.27 10*6/uL Normal 3.77-5.28 [facility] Internal Medicine; [facility] Work Phone: Comment on above: PATIENT WAS FASTINGP ERFORMED BY: CB [facility] Xbuvve4881 [address] RoadDublin [place] [id number]; wellness on 01/30 WBC (Bld) [#/Vol] 4.6 {x10E3/uL} Normal 3.4-10.8 [facility] Internal Medicine Work Phone: Comment on above: PATIENT WAS FASTINGP ERFORMED BY: CB [facility] Scytcp0965 [address] RoadDublin [place] [id number]; wellness on 01/30 WBC (Bld) [#/Vol] 4.6 10*3/uL Normal 3.4-10.8 [facility] Internal Medicine; [facility] Work Phone: Comment on above: PATIENT WAS FASTINGP ERFORMED BY: LIT LabCodarcy Clowge2058 [address] RoadDublin [place] [id number]; wellness on 01/30 METABOLIC PANEL, COMPREHENSI VE ([id number])Ordered By: Bottling Line Operator on 01-16-2019 Albumin [Mass/Vol] 4.4 g/dL Normal 3.5-4.8 [facility] Internal Medicine Work Phone: Comment on above: PATIENT WAS FASTINGP ERFORMED BY: LIT LabCodarcy LuongDcmlwr5098 [address] RoadDublin [place] [id number] Albumin/Globulin [Mass ratio] 1.9 {ratio} Normal 1.2-2.2 [facility] Work Phone: Comment on above: PATIENT WAS FASTINGP ERFORMED BY: LIT LabCodarcy LuongTghidv7430 [address] RoadDublin [place] [id number] ALP [Catalytic activity/Vol] 49 [iU]/L Normal 39-117 [facility] Work Phone: Comment on above: PATIENT WAS FASTINGP ERFORMED BY: LIT LabCodarcy LuongHetxpp5421 Mendzoa RoadDublin [place] [id number] ALP [Catalytic activity/Vol] 49 U/L Normal 39-117 [facility]; [facility] Work Phone: Comment on above: PATIENT WAS FASTINGP ERFORMED BY: LIT [facility] Tzqhbv4150 [address] RoadDublin [place] [id number] ALT [Catalytic activity/Vol] 16 [iU]/L Normal 0-32 [facility] Work Phone: Comment on above: PATIENT WAS FASTINGP ERFORMED BY: LIT [facility] Nyzhul5563 [address] RoadDublin [place] [id number] ALT [Catalytic activity/Vol] 16 U/L Normal 0-32 [facility]; [facility] Work Phone: Comment on above: PATIENT WAS FASTINGP ERFORMED BY: LIT [facility] Hxtnii3253 [address] RoadDublin [place] [id number] AST [Catalytic activity/Vol] 28 [iU]/L Normal 0-40 [facility] Internal Medicine Work Phone: Comment on above: PATIENT WAS FASTINGP ERFORMED BY: CB [facility] Yavqrb6213 [address] RoadDublin [place] [id number] AST [Catalytic activity/Vol] 28 U/L Normal 0-40 [facility]; [facility] Internal Medicine Work Phone: Comment on above: PATIENT WAS FASTINGP ERFORMED BY: [facility] Tymrcv7661 [address]Dublin [place] [id number] Bilirubin [Mass/Vol] 0.6 mg/dL Normal 0.0-1.2 [facility] Work Phone: Comment on above: PATIENT WAS FASTINGP ERFORMED BY: [facility] Jbnufe9328 [address] RoadDublin [place] [id number] Calcium [Mass/Vol] 9.2 mg/dL Normal 8.7-10.3 [facility] Internal Medicine Work Phone: Comment on above: PATIENT WAS FASTINGP ERFORMED BY: [facility] Winmdb8245 [address] RoadDublin [place] [id number] Chloride [Moles/Vol] 105 mmol/L Normal 96-106 [facility] Internal Medicine Work Phone: Comment on above: PATIENT WAS FASTINGP ERFORMED BY: [facility] Jrvinn0303 [address] RoadDublin [place] [id number] CO2 [Moles/Vol] 25 mmol/L Normal 20-29 [facility] Internal Medicine Work Phone: Comment on above: PATIENT WAS FASTINGP ERFORMED BY: [facility] Yfximx5209 [address]Dublin [place] [id number] Creatinine [Mass/Vol] 0.78 mg/dL Normal 0.57-1.00 [facility] Internal Medicine Work Phone: Comment on above: PATIENT WAS FASTINGP ERFORMED BY: [facility] Yhvcrz6554 Mendoza RoadDublin [place] [id number] GFR/1.73 sq M predicted among blacks CKD-EPI (S/P/Bld) [Vol rate/Area] 85 mL/min/1.73 Normal [facility] Work Phone: Comment on above: PATIENT WAS FASTINGP ERFORMED BY: LIT [facility] Hivwsu3535 Mendoza RoadDublin [place] [id number] GFR/1.73 sq M predicted among non-blacks CKD-EPI (S/P/Bld) [Vol rate/Area] 74 mL/min/1.73 Normal [facility] Work Phone: Comment on above: PATIENT WAS FASTINGP ERFORMED BY: LIT [facility] Adikgr7005 Mendoza RoadDuin [place] [id number] Globulin (S) [Mass/Vol] 2.3 g/dL Normal 1.5-4.5 [facility] Internal Medicine Work Phone: Comment on above: PATIENT WAS FASTINGP ERFORMED BY: LIT [facility] Hzoily[address] [facility] [place] [id number] Glucose [Mass/Vol] 81 mg/dL Normal 65-99 [facility] Internal Medicine Work Phone: Comment on above: PATIENT WAS FASTINGP ERFORMED BY: LIT [facility] Hxknme[address] [facility] [place] [id number] Potassium [Moles/Vol] 4.5 mmol/L Normal 3.5-5.2 [facility] Internal Medicine Work Phone: Comment on above: PATIENT WAS FASTINGP ERFORMED BY: [facility] Wsrtcg[address] [facility] [place] [id number] Protein [Mass/Vol] 6.7 g/dL Normal 6.0-8.5 [facility] Internal Medicine Work Phone: Comment on above: PATIENT WAS FASTINGP ERFORMED BY: CB [facility] Qwykfu[address] [facility] [place] [id number] Sodium [Moles/Vol] 144 mmol/L Normal 134-144 [facility] Internal Medicine Work Phone: Comment on above: PATIENT WAS FASTINGP ERFORMED BY: LIT [facility] Fnvdyb2049 [facility] [id number] Urea nitrogen [Mass/Vol] 25 mg/dL Normal 8-27 [facility] Work Phone: Comment on above: PATIENT WAS FASTINGP ERFORMED BY: [facility]6370 [facility] [id number] Urea nitrogen/Creatinine [Mass ratio] 32 mg/mg Abnormal 12-28 [facility] Work Phone: Comment on above: PATIENT WAS FASTINGP ERFORMED BY: [facility]6370 [facility] [id number] CBC W/Diff, AutomatedOrdered By: Bottling Line Operator on 05-17-2018 Absolute Neut 1.4 {X10_3/uL} Abnormal 2.0-7.7 Compreh ensive Internal Medicine Work Phone: Comment on above: [facility] [address] [place], [place], [phone] ; appt 05/29 Basophils/100 WBC (Bld) 0.8 % Normal 0-1 [facility] Work Phone: Comment on above: [facility] [address] [place], [place], [address] ; appt 05/29 Eosinophils/100 WBC (Bld) 3.2 % Normal 0-5 [facility] Work Phone: Comment on above: [facility] [address] [place], [place], [phone] ; appt 05/29 Erythrocyte distribution width (RBC) [Ratio] 13.3 % Normal 11.6-14.6 [facility] Work Phone: Comment on above: [facility] [address] [place], [place], [address] ; appt 05/29 Hematocrit (Bld) [Volume fraction] 40.5 % Normal 37-47 [facility] Work Phone: Comment on above: [facility] [address] [place], [place], [address] ; appt 05/29 Hemoglobin (Bld) [Mass/Vol] 13.0 g/dL Normal 12.0-15.0 [facility] Work Phone: Comment on above: [facility] [address] [place], [place], [address] ; appt 05/29 IM GRAN % 0.000 % Normal 0.0-0.9 [facility] Work Phone: Comment on above: IG% - Immature Granu locytes (promyelocytes, myelocytes andmetamyelocytes) > 1% indicates that a LEFT SHIFT is Present. [facility] [address] [place], [place], [phone] ; appt 05/29 Lymphocytes (Bld) [#/Vol] 1.93 {X10_3/ul} Normal 0.83-4.51 [facility] Work Phone: Comment on above: [facility] [address] [place], [place], [phone] ; appt 05/29 Lymphocytes/100 WBC (Bld) 51.6 % Abnormal 19-41 [facility] Work Phone: Comment on above: [facility] [address] [place], [place], [address] ; appt 05/29 MCH (RBC) [Entitic mass] 30.2 pg Normal 27.0-32.0 [facility] Work Phone: Comment on above: [facility] [address] [place], [place], [address] ; appt 05/29 MCHC (RBC) [Mass/Vol] 32.1 {g/gl} Normal 32-36 [facility] Internal Medicine Work Phone: Comment on above: [facility] [address] [place], [place], [address] ; appt 05/29 MCV (RBC) [Entitic vol] 94.2 fL Normal 81-99 [facility] Work Phone: Comment on above: [facility] [address] [place], [phone] ; appt 05/29 Monocytes/100 WBC (Bld) 8.0 % Normal 0-10 [facility] Work Phone: Comment on above: [facility] [address] [place], [place], [address] ; appt 05/29 Neutrophils/100 WBC (Bld) 36.4 % Abnormal 47-70 [facility] Work Phone: Comment on above: [facility] [address] [place], [place], [address] ; appt 05/29 Platelet mean volume (Bld) [Entitic vol] 10.0 fL Normal 6.2-12.0 Comprehensiv Internal Medicine Work Phone: Comment on above: [facility] [address] [place], [place], [address] ; appt 05/29 Platelets (Bld) [#/Vol] 182 10*3/uL Normal 150-450 [facility] Work Phone: Comment on above: [facility] [address] [place], [place], [address] ; appt 05/29 RBC (Bld) [#/Vol] 4.30 {M/mm3} Normal 4.2-5.4 [facility] Internal Medicine Work Phone: Comment on above: [facility] [address] [place], [place], [address] ; appt 05/29 RDW SD 45.6 fL Abnormal 35.1-43.9 [facility] Work Phone: Comment on above: [facility] [address] [place], [address] ; appt 05/29 WBC (Bld) [#/Vol] 3.7 10*3/uL Abnormal 4.4-11.0 Compre hensive Internal Medicine Work Phone: Comment on above: [facility] spital [address] [place], [place], [address] ; appt 05/29 Comprehensive Metabolic Prof ilOrdered By: Bottling Line Operator on 05-17-2018 Comprehensive metabolic 2000 panel 108 mmol/L Abnormal 98-107 Comprehensi ve Internal Medicine Work Phone: Comment on above: [facility] spital [address] [place], [place], [phone] Comprehensive metabolic 2000 panel 7.1 g/dL Normal 6.4-8.2 Comprehensi ve Internal Medicine Work Phone: Comment on above: [facility] [address] [place], [place], [address] Comprehensive metabolic 2000 panel 94 mL/min Normal Comprehensi ve Internal Medicine Work Phone: Comment on above: GFR Calc [facility] [address] [place], [place], [address] Comprehensive metabolic 2000 panel 4 1 Abnormal 5-15 Comprehensi ve Internal Medicine Work Phone: Comment on above: [facility] [address] [place], [place], [address] Comprehensive metabolic 2000 panel 3.8 g/dL Normal 3.2-5.0 Comprehensi ve Internal Medicine Work Phone: Comment on above: [facility] [address] [place], [place], [address] Comprehensive metabolic 2000 panel 34.0 {RATIO} Abnormal 10-20 Comprehensi ve Internal Medicine Work Phone: Comment on above: [facility] [address] [place], [place], [phone] Comprehensive metabolic 2000 panel 78 mL/min Normal Comprehensi ve Internal Medicine Work Phone: Comment on above: Non- GFR Calc [facility] [address] [place], [place], [address] Comprehensive metabolic 2000 panel 26 mg/dL Abnormal 7-18 Comprehensi ve Internal Medicine Work Phone: Comment on above: [facility] [address] [place], [place], [address] Comprehensive metabolic 2000 panel 3.3 g/dL Normal 2.2-4.2 Comprehensi ve Internal Medicine Work Phone: Comment on above: [facility] [address] [place], [place], [address] Comprehensive metabolic 2000 panel 1.2 {RATIO} Normal 0.9-2.4 Comprehensi ve Internal Medicine Work Phone: Comment on above: [facility] [address] [place], [place], [address] Comprehensive metabolic 2000 panel 4.4 mmol/L Normal 3.5-5.1 Comprehensi ve Internal Medicine Work Phone: Comment on above: [facility] [address] [place], [place], [address]89[address] Comprehensive metabolic 2000 panel 8.7 mg/dL Normal 8.5-10.1 Comprehensi ve Internal Medicine Work Phone: Comment on above: [facility] [address] [place], [place], [address]098[address] Comprehensive metabolic 2000 panel 29 U/L Normal 15-37 Comprehensi ve Internal Medicine Work Phone: Comment on above: [facility] [address] [place], [address] Comprehensive metabolic 2000 panel 52 U/L Normal 45-117 Comprehensi ve Internal Medicine Work Phone: Comment on above: [facility] [address] [place], [place], [address] Comprehensive metabolic 2000 panel 21 U/L Normal 13-56 Comprehensi ve Internal Medicine Work Phone: Comment on above: [facility] [address] [place], [place], [address] Comprehensive metabolic 2000 panel 0.76 mg/dL Normal 0.55-1.02 Comprehensi ve Internal Medicine Work Phone: Comment on above: The validity of the calculated GFR AND GFRAA in patients over70 years has not been determined. Clinical correlation isessential. [facility] [address] [place], [place], [address] Comprehensive metabolic 2000 panel 82 mg/dL Normal 74-106 Comprehensi ve Internal Medicine Work Phone: Comment on above: Please note revised GLUCOSE reference range srawcqihe20/02/2018. [facility] [address] [place], [place], [address] Comprehensive metabolic 2000 panel 29.0 mmol/L Normal 21.0-32.0 Comprehensi ve Internal Medicine Work Phone: Comment on above: [facility] [address] [place], [place], [address] Comprehensive metabolic 2000 panel 0.50 mg/dL Normal 0.20-1.00 Comprehensi ve Internal Medicine Work Phone: Comment on above: [facility] [address] [place], [place], [address] Comprehensive metabolic 2000 panel 141 mmol/L Normal 136-145 Comprehensi ve Internal Medicine Work Phone: Comment on above: [facility] [address] [place], [place], [phone] Hemoglobin [id number] By: Sy stem Flask Carrier on 05-17-2018 HbA1c (Bld) [Mass fraction] 5.6 % Normal 4.2-6.3 [facility] Work Phone: Comment on above: [facility] [address] [place], [place], [phone] Hepatitis C AntibodiesOrdere d By: Bottling Line Operator on 05-17-2018 Hepatitis C Antibodies <0.1 Normal 0.0-0.9 [facility] Work Phone: Comment on above: Negative: < 0.8 Inde terminate: 0.8 - 0.9 Positive: > 0.9 The CDC recommends that a positive HCV antibody result be followed up with a HCV Nucleic Acid Amplification test (811914).Performed at: [facility] [address] [id number] Director: Jeancarlos Gómez PhD, Phone: [phone] [facility] (refer to re port for specific site)refer to report for address and phone number CBC W/Diff, AutomatedOrdered By: Bottling Line Operator on 01-20-2018 Absolute Neut 1.5 {X10_3/uL} Abnormal 2.0-7.7 Compreh ensive Internal Medicine Work Phone: Comment on above: [facility] [address] [place], [place], [phone] Basophils/100 WBC (Bld) 0.8 % Normal 0-1 [facility] Work Phone: Comment on above: [facility] [address] [place], [place], [phone] Eosinophils/100 WBC (Bld) 4.5 % Normal 0-5 [facility] Work Phone: Comment on above: [facility] [address] [place], [place], [phone] Erythrocyte distribution width Ratio (RBC) 13.9 % Normal 11.6-14.6 [facility] Work Phone: Comment on above: [facility] [address] [place], [place], [phone] Hematocrit Volume Fraction (Bld) 38.8 % Normal 37-47 [facility] Work Phone: Comment on above: [facility] [address] [place], [address] Hemoglobin mass conc (Bld) 12.4 g/dL Normal 12.0-15.0 [facility] Work Phone: Comment on above: [facility] [address] [place], [address] IM GRAN % 0.000 % Normal 0.0-0.9 [facility] Work Phone: Comment on above: IG% - Immature Granu locytes (promyelocytes, myelocytes andmetamyelocytes) > 1% indicates that a LEFT SHIFT is Present. [facility] [address] [place], [place], [phone] Lymphocytes #/vol (Bld) 1.66 {X10_3/ul} Normal 0.83-4.51 [facility] Work Phone: Comment on above: [facility] [address] [place], [address] Lymphocytes/100 WBC (Bld) 43.9 % Abnormal 19-41 [facility] Work Phone: Comment on above: [facility] [address] [place], [address] MCH Entitic mass (RBC) 30.4 pg Normal 27.0-32.0 [facility] Work Phone: Comment on above: [facility] [address] [place], [address] MCHC mass conc (RBC) 32.0 {g/gl} Normal 32-36 Com prehensive Internal Medicine Work Phone: Comment on above: [facility] [address] [place], [address] MCV Entitic volume (RBC) 95.1 fL Normal 81-99 [facility] Work Phone: Comment on above: [facility] [address] [place], [address] Monocytes/100 WBC (Bld) 11.4 % Abnormal 0-10 [facility] Work Phone: Comment on above: [facility] [address] [place], [address] Neutrophils/100 WBC (Bld) 39.4 % Abnormal 47-70 [facility] Work Phone: Comment on above: [facility] [address] [place], [address] Platelet mean volume Entitic volume (Bld) 10.2 fL Normal 6.2-12.0 Comprehensi ve Internal Medicine Work Phone: Comment on above: [facility] [address] [place], [place], [phone] Platelets #/vol (Bld) 177 10*3/uL Normal 150-450 Co mprehensive Internal Medicine Work Phone: Comment on above: [facility] [address] [place], [address] RBC #/vol (Bld) 4.08 {M/mm3} Abnormal 4.2-5.4 Compreh ensive Internal Medicine Work Phone: Comment on above: [facility] [address] [place], [address] RDW SD 47.8 fL Abnormal 35.1-43.9 [facility] Work Phone: Comment on above: [facility] [address] [place], [address] WBC #/vol (Bld) 3.8 10*3/uL Abnormal 4.4-11.0 Comprehe nsive Internal Medicine Work Phone: Comment on above: [facility] [address] [place], [place], [address] Comprehensive Metabolic Prof ilOrdered By: Bottling Line Operator on 01-20-2018 Comprehensive metabolic 2000 panel 0.60 mg/dL Normal 0.20-1.00 Comprehensi ve Internal Medicine Work Phone: Comment on above: [facility] spital [address] [place], [place], [address] Comprehensive metabolic 2000 panel 101 mL/min Normal Comprehensi ve Internal Medicine Work Phone: Comment on above: GFR Calc [facility] spital [address] [place], [place], [phone] Comprehensive metabolic 2000 panel 37.5 {RATIO} Abnormal 10-20 Comprehensi ve Internal Medicine Work Phone: Comment on above: [facility] [address] [place], [place], [phone] Comprehensive metabolic 2000 panel 6.8 g/dL Normal 6.4-8.2 Comprehensi ve Internal Medicine Work Phone: Comment on above: [facility] [address] [place], [place], [phone] Comprehensive metabolic 2000 panel 3.5 g/dL Normal 3.2-5.0 Comprehensi ve Internal Medicine Work Phone: Comment on above: [facility] [address] [place], [place], 7812[address] Comprehensive metabolic 2000 panel 3.3 g/dL Normal 2.2-4.2 Comprehensi ve Internal Medicine Work Phone: Comment on above: [facility] [address] [place], [place], [address]88[address] Comprehensive metabolic 2000 panel 1.1 {RATIO} Normal 0.9-2.4 Comprehensi ve Internal Medicine Work Phone: Comment on above: [facility] spital [address] [place], [place], [address] Comprehensive metabolic 2000 panel 8.4 mg/dL Abnormal 8.5-10.1 Comprehensi ve Internal Medicine Work Phone: Comment on above: [facility] [address] [place], [address] Comprehensive metabolic 2000 panel 82 mg/dL Normal 74-106 Comprehensi ve Internal Medicine Work Phone: Comment on above: Please note revised GLUCOSE reference range xvzkmqkno85/02/2018. [facility] [address] [place], [address] Comprehensive metabolic 2000 panel 84 mL/min Normal Comprehensi ve Internal Medicine Work Phone: Comment on above: Non- GFR Calc [facility] [address] [place], [place], 1339[address] Comprehensive metabolic 2000 panel 47 U/L Normal 45-117 Comprehensi ve Internal Medicine Work Phone: Comment on above: [facility] [address] [place], [place], [address] Comprehensive metabolic 2000 panel 25 U/L Normal 13-56 Comprehensi ve Internal Medicine Work Phone: Comment on above: [facility] [address] [place], [place], [address]4031 Comprehensive metabolic 2000 panel 143 mmol/L Normal 136-145 Comprehensi ve Internal Medicine Work Phone: Comment on above: [facility] [address] [place], [place], [address] Comprehensive metabolic 2000 panel 4.1 mmol/L Normal 3.5-5.1 Comprehensi ve Internal Medicine Work Phone: Comment on above: [facility] [address] [place], [place], [address] Comprehensive metabolic 2000 panel 108 mmol/L Abnormal 98-107 Comprehensi ve Internal Medicine Work Phone: Comment on above: [facility] [address] [place], [address] Comprehensive metabolic 2000 panel 27.0 mmol/L Normal 21.0-32.0 Comprehensi ve Internal Medicine Work Phone: Comment on above: [facility] [address] [place], [place], [phone] Comprehensive metabolic 2000 panel 8 1 Normal 5-15 Comprehensi ve Internal Medicine Work Phone: Comment on above: [facility] [address] [place], [place], [address] Comprehensive metabolic 2000 panel 0.72 mg/dL Normal 0.55-1.02 Comprehensi ve Internal Medicine Work Phone: Comment on above: The validity of the calculated GFR AND GFRAA in patients over70 years has not been determined. Clinical correlation isessential. [facility] [address] [facility] [phone] Comprehensive metabolic 2000 panel 27 mg/dL Abnormal 7-18 Comprehensi ve Internal Medicine Work Phone: Comment on above: [facility] [address] [place], [address] Hemoglobin [id number] By: Sy stem Flask Carrier on 01-20-2018 Hemoglobin A1c/Hemoglobin.total mass fraction (Bld) 5.5 % Normal 4.2-6.3 Comprehensiv e Internal Medicine Work Phone: Comment on above: [facility] [address] [place], [place], [phone] MicroalbOrdered By: Augie medina on 01-20-2018 Creatinine mass conc 14.8 {mg/g_CRE} Normal [facility] Work Phone: Comment on above: [facility] [address] [facility] [phone] Creatinine mass conc 93.40 mg/dL Normal Com prehensive Internal Medicine Work Phone: Comment on above: [facility] [address] [place], [place], [phone] Microalb 13.8 mg/L Normal [facility] Medicine Work Phone: Comment on above: [facility] [address] [place], [place], [phone] CBC W/Diff, AutomatedOrdered By: Bottling Line Operator on 05-17-2017 Absolute Lymph 1.94 {X10_3/ul} Normal 0.83-4.51 Compr ehensive Internal Medicine Work Phone: Absolute Neut 1.8 {X10_3/uL} Abnormal 2.0-7.7 Compreh ensive Internal Medicine Work Phone: Comment on above: [facility] [address] [place], [address] Basophils/100 WBC (Bld) 0.9 % Normal 0-1 [facility] Work Phone: Comment on above: [facility] [address] [place], [address] Basophils/100 WBC Auto (Bld) 0.9 % Normal 0-1 [facility] Work Phone: Eosinophils/100 WBC (Bld) 3.4 % Normal 0-5 [facility] Work Phone: Comment on above: [facility] [address] [place], [phone] Eosinophils/100 WBC Auto (Bld) 3.4 % Normal 0-5 [facility] Work Phone: Erythrocyte distribution width Auto Ratio (RBC) 13.1 % Normal 11.6-14.6 [facility] Work Phone: Erythrocyte distribution width Ratio (RBC) 13.1 % Normal 11.6-14.6 [facility] Work Phone: Comment on above: [facility] [address] [place], [place], [phone] Hematocrit Auto Volume Fraction (Bld) 39.8 % Normal 37-47 Comprehens mony Internal Medicine Work Phone: Hematocrit Volume Fraction (Bld) 39.8 % Normal 37-47 [facility] Work Phone: Comment on above: [facility] [address] [place], [address] Hemoglobin mass conc (Bld) 13.3 g/dL Normal 12.0-15.0 [facility] Work Phone: Comment on above: [facility] [address] [place], [address] IM GRAN % 0.000 % Normal 0.0-0.9 [facility] Work Phone: Comment on above: IG% - Immature Granu locytes (promyelocytes, myelocytes andmetamyelocytes) > 1% indicates that a LEFT SHIFT is Present. [facility] [address] [place], [address] Lymphocytes #/vol (Bld) 1.94 {X10_3/ul} Normal 0.83-4.51 [facility] Work Phone: Comment on above: [facility] [address] [place], [address] Lymphocytes/100 WBC (Bld) 43.5 % Abnormal 19-41 [facility] Work Phone: Comment on above: [facility] [address] [place], [address] Lymphocytes/100 WBC Auto (Bld) 43.5 % Abnormal 19-41 [facility] Work Phone: MCH Auto Entitic mass (RBC) 31.0 pg Normal 27.0-32.0 [facility] Work Phone: MCH Entitic mass (RBC) 31.0 pg Normal 27.0-32.0 [facility] Work Phone: Comment on above: [facility] [address] [place], [address] MCHC Auto mass conc (RBC) 33.4 {g/gl} Normal 32-36 [facility] Work Phone: MCHC mass conc (RBC) 33.4 {g/gl} Normal 32-36 Com prehensive Internal Medicine Work Phone: Comment on above: [facility] [address] [place], [address] MCV Auto Entitic volume (RBC) 92.8 fL Normal 81-99 [facility] Work Phone: MCV Entitic volume (RBC) 92.8 fL Normal 81-99 [facility] Work Phone: Comment on above: [facility] [address] [place], [address] Monocytes/100 WBC Auto (Bld) 12.3 % Abnormal 0-10 [facility] Work Phone: Comment on above: [facility] [address] [place], [address] Neutrophils/100 WBC (Bld) 39.9 % Abnormal 47-70 [facility] Work Phone: Comment on above: [facility] [address] [place], [address] Neutrophils/100 WBC Auto (Bld) 39.9 % Abnormal 47-70 [facility] Work Phone: Platelet mean volume Auto Entitic volume (Bld) 10.5 fL Normal 6.2-12.0 [facility] Work Phone: Platelet mean volume Entitic volume (Bld) 10.5 fL Normal 6.2-12.0 Comprehensi Internal Medicine Work Phone: Comment on above: [facility] [address] [place], [address] Platelets #/vol (Bld) 186 10*3/uL Normal 150-450 [facility] Work Phone: Comment on above: [facility] [address] [place], [address] Platelets Auto #/vol (Bld) 186 10*3/uL Normal 150-450 [facility] Medicine Work Phone: RBC #/vol (Bld) 4.29 {M/mm3} Normal 4.2-5.4 Compreh ensive Internal Medicine Work Phone: Comment on above: [facility] [address] [place], [address] RBC Auto #/vol (Bld) 4.29 {M/mm3} Normal 4.2-5.4 Co mprehensive Internal Medicine Work Phone: RDW SD 43.2 fL Normal 35.1-43.9 Comprehensive [facility] Medicine Work Phone: Comment on above: [facility] [address] [place], [address] WBC #/vol (Bld) 4.5 10*3/uL Normal 4.4-11.0 Comprehe nsive Internal Medicine Work Phone: Comment on above: [facility] [address] [place], [address] WBC Auto #/vol (Bld) 4.5 10*3/uL Normal 4.4-11.0 Com prehensive Internal Medicine Work Phone: Comprehensive Metabolic Prof ilOrdered By: Bottling Line Operator on 05-17-2017 Comprehensive metabolic 2000 panel 77 mg/dL Normal 74-106 Comprehensi ve Internal Medicine Work Phone: Comment on above: Please note revised GLUCOSE reference range [id number]/02/2018. [facility] [address] [place], [place], [id number] Comprehensive metabolic 2000 panel 19 U/L Normal 13-56 Comprehensi ve Internal Medicine Work Phone: Comment on above: Please note revised ALT reference range [id number]/28/2018. [facility] [address] [place], [address] Comprehensive metabolic 2000 panel 142 mmol/L Normal 136-145 Comprehensi ve Internal Medicine Work Phone: Comment on above: [facility] [address] [place], [place], [address] Comprehensive metabolic 2000 panel 4.1 mmol/L Normal 3.5-5.1 Comprehensi ve Internal Medicine Work Phone: Comment on above: [facility] [address] [place], [place], [id number] Comprehensive metabolic 2000 panel 50 U/L Normal 45-117 Comprehensi ve Internal Medicine Work Phone: Comment on above: [facility] [address] [place], [place], [address] Comprehensive metabolic 2000 panel 105 mmol/L Normal 98-107 Comprehensi ve Internal Medicine Work Phone: Comment on above: [facility] [address] [place], [place], [address] Comprehensive metabolic 2000 panel 27 U/L Normal 15-37 Comprehensi ve Internal Medicine Work Phone: Comment on above: [facility] [address] [place], [place], [address] Comprehensive metabolic 2000 panel 8.9 mg/dL Normal 8.5-10.1 Comprehensi ve Internal Medicine Work Phone: Comment on above: [facility] [address] [place], [place], [address] Comprehensive metabolic 2000 panel 29.0 mmol/L Normal 21.0-32.0 Comprehensi ve Internal Medicine Work Phone: Comment on above: [facility] [address] [place], [place], [address] Comprehensive metabolic 2000 panel 0.60 mg/dL Normal 0.20-1.00 Comprehensi ve Internal Medicine Work Phone: Comment on above: [facility] [address] [place], [place], [address] Comprehensive metabolic 2000 panel 1.1 {RATIO} Normal 0.9-2.4 Comprehensi ve Internal Medicine Work Phone: Comment on above: [facility] [address] [place], [place], [phone] Comprehensive metabolic 2000 panel 27 mg/dL Abnormal 7-18 Comprehensi ve Internal Medicine Work Phone: Comment on above: [facility] [address] [place], [place], [address] Comprehensive metabolic 2000 panel 0.78 mg/dL Normal 0.55-1.02 Comprehensi ve Internal Medicine Work Phone: Comment on above: The validity of the calculated GFR AND GFRAA in patients over70 years has not been determined. Clinical correlation isessential. [facility] [address] [place], [address] Comprehensive metabolic 2000 panel 77 mL/min Normal Comprehensi ve Internal Medicine Work Phone: Comment on above: Non- GFR Calc [facility] [address] [place], [address] Comprehensive metabolic 2000 panel 93 mL/min Normal Comprehensi ve Internal Medicine Work Phone: Comment on above: GFR Calc [facility] [address] [place], [address] Comprehensive metabolic 2000 panel 34.8 {RATIO} Abnormal 10-20 Comprehensi ve Internal Medicine Work Phone: Comment on above: [facility] [address] [place], [place], [phone] Comprehensive metabolic 2000 panel 7.2 g/dL Normal 6.4-8.2 Comprehensi ve Internal Medicine Work Phone: Comment on above: [facility] [address] [place], [place], [address] Comprehensive metabolic 2000 panel 3.7 g/dL Normal 3.2-5.0 Comprehensi ve Internal Medicine Work Phone: Comment on above: [facility] [address] [place], [place], [address] Comprehensive metabolic 2000 panel 8 1 Normal 5-15 Comprehensi ve Internal Medicine Work Phone: Comment on above: [facility] [address] [place], [place], [address] Comprehensive metabolic 2000 panel 3.5 g/dL Normal 2.2-4.2 Comprehensi ve Internal Medicine Work Phone: Comment on above: [facility] [address] [place], [place], [address] Hemoglobin I7bOihzose By: Sy deepwater Flask Carrier on 05-17-2017 Hemoglobin A1c/Hemoglobin.total mass fraction (Bld) 5.8 % Normal 4.2-6.3 Comprehensiv e Internal Medicine Work Phone: Comment on above: [facility] [address] [place], [place], [address] MicroalbOrdered By: Augie medina on 05-17-2017 Creatinine mass conc 13.0 {mg/g_CRE} Normal Comprehensive [facility] Medicine Work Phone: Comment on above: [facility] [address] [place], [place], [address] ; will review 05/26 Creatinine mass conc 56.00 mg/dL Normal [facility] prehensive Internal Medicine Work Phone: Comment on above: [facility] [address] [place], [place], [address] ; will review 05/26 MICROALBUMIN,UR 7.3 mg/L Normal Comprehen sive Internal Medicine Work Phone: UR CREAT 56.00 mg/dL Normal [facility] Work Phone: Microalb 7.3 mg/L Normal Comprehensive [facility] Medicine Work Phone: Comment on above: [facility] [address] [place], [address] ; will review 05/26 Vitamin D,25 HydroxyOrdered By: Bottling Line Operator on 05-17-2017 Vitamin D 25-OH 44.6 ng/mL [...] 250 nmol/L) Toxicity >100 ng/mL (>250 nmol/L) [facility] [address], [address] CBC W/Diff, AutomatedOrdered By: Bottling Line Operator on 01-06-2017 Absolute Lymph 1.54 {X10_3/ul} Normal 0.83-4.51 Compr ehensive Internal Medicine Work Phone: Absolute Neut 1.3 {X10_3/uL} Abnormal 2.0-7.7 Compreh ensive Internal Medicine Work Phone: Comment on above: [facility] [address] [place], [id number] Basophils/100 WBC (Bld) 1.2 % Abnormal 0-1 Comprehensive [facility] Medicine Work Phone: Comment on above: [facility] [address] [place], [address] Basophils/100 WBC Auto (Bld) 1.2 % Abnormal 0-1 Comprehensive [facility] Medicine Work Phone: Eosinophils/100 WBC (Bld) 3.8 % Normal 0-5 Comprehensive [facility] Medicine Work Phone: Comment on above: [facility] [address] [place], [address] Eosinophils/100 WBC Auto (Bld) 3.8 % Normal 0-5 Comprehensive [facility] Work Phone: Erythrocyte distribution width Auto Ratio (RBC) 13.6 % Normal 11.6-14.6 [facility] Work Phone: Erythrocyte distribution width Ratio (RBC) 13.6 % Normal 11.6-14.6 Comprehensive [facility] Medicine Work Phone: Comment on above: [place] [address] [place], [address] Hematocrit Auto Volume Fraction (Bld) 36.9 % Abnormal 37-47 Comprehens mony Internal Medicine Work Phone: Hematocrit Volume Fraction (Bld) 36.9 % Abnormal 37-47 Comprehensive [facility] Medicine Work Phone: Comment on above: [place] [address] [place], [address] Hemoglobin mass conc (Bld) 12.3 g/dL Normal 12.0-15.0 Comprehensive [facility] Medicine Work Phone: Comment on above: [facility] [address] [place], [address] IM GRAN % 0.000 % Normal 0.0-0.9 Comprehensive [facility] Work Phone: Comment on above: IG% - Immature Granu locytes (promyelocytes, myelocytes andmetamyelocytes) > 1% indicates that a LEFT SHIFT is Present. [facility] [address] [place], [address] Lymphocytes #/vol (Bld) 1.54 {X10_3/ul} Normal 0.83-4.51 Comprehensive [facility] Medicine Work Phone: Comment on above: [facility] [address] [place], [address] Lymphocytes/100 WBC (Bld) 44.8 % Abnormal 19-41 Comprehensive [facility] Medicine Work Phone: Comment on above: [facility] [address] [place], [address] Lymphocytes/100 WBC Auto (Bld) 44.8 % Abnormal 19-41 Comprehensive [facility] Medicine Work Phone: MCH Auto Entitic mass (RBC) 31.2 pg Normal 27.0-32.0 [facility] Work Phone: MCH Entitic mass (RBC) 31.2 pg Normal 27.0-32.0 Comprehensive [facility] Medicine Work Phone: Comment on above: [facility] [address] [place], [address] MCHC Auto mass conc (RBC) 33.3 {g/gl} Normal 32-36 [facility] Work Phone: MCHC mass conc (RBC) 33.3 {g/gl} Normal 32-36 [facility] prehensive Internal Medicine Work Phone: Comment on above: [facility] [address] [place], [address] MCV Auto Entitic volume (RBC) 93.7 fL Normal 81-99 [facility] Medicine Work Phone: MCV Entitic volume (RBC) 93.7 fL Normal 81-99 Comprehensive [facility] Medicine Work Phone: Comment on above: [facility] [address] [place], [address] Monocytes/100 WBC Auto (Bld) 13.7 % Abnormal 0-10 Comprehensive [facility] Medicine Work Phone: Comment on above: [facility] [address] [place], [address] Neutrophils/100 WBC (Bld) 36.5 % Abnormal 47-70 Comprehensive [facility] Medicine Work Phone: Comment on above: [facility] [address] [place], [address] Neutrophils/100 WBC Auto (Bld) 36.5 % Abnormal 47-70 Comprehensive [facility] Work Phone: Platelet mean volume Auto Entitic volume (Bld) 10.6 fL Normal 6.2-12.0 [facility] Work Phone: Platelet mean volume Entitic volume (Bld) 10.6 fL Normal 6.2-12.0 Comprehensi Internal Medicine Work Phone: Comment on above: [facility] [address] [place], [address] Platelets #/vol (Bld) 180 10*3/uL Normal 150-450 [facility] Work Phone: Comment on above: [facility] [address] [place], [address] Platelets Auto #/vol (Bld) 180 10*3/uL Normal 150-450 Comprehensive [facility] Medicine Work Phone: RBC #/vol (Bld) 3.94 {M/mm3} Abnormal 4.2-5.4 Compreh ensive Internal Medicine Work Phone: Comment on above: [facility] [address] [place], [address] RBC Auto #/vol (Bld) 3.94 {M/mm3} Abnormal 4.2-5.4 Co mprehensive Internal Medicine Work Phone: RDW SD 45.4 fL Abnormal 35.1-43.9 Comprehensive [facility] Medicine Work Phone: Comment on above: [facility] [address] [place], [place], [address] WBC #/vol (Bld) 3.4 10*3/uL Abnormal 4.4-11.0 Comprehe nsive Internal Medicine Work Phone: Comment on above: [facility] [address] [place], [place], [address] WBC Auto #/vol (Bld) 3.4 10*3/uL Abnormal 4.4-11.0 Com prehensive Internal Medicine Work Phone: Comprehensive Metabolic Prof ilOrdered By: Bottling Line Operator on 01-06-2017 Comprehensive metabolic 2000 panel 0.74 mg/dL Normal 0.55-1.02 Comprehensi ve Internal Medicine Work Phone: Comment on above: The validity of the calculated GFR AND GFRAA in patients over70 years has not been determined. Clinical correlation isessential. [facility] [address] [place], [place], [address] Comprehensive metabolic 2000 panel 142 mmol/L Normal 136-145 Comprehensi ve Internal Medicine Work Phone: Comment on above: [facility] [address] [place], [place], [address] Comprehensive metabolic 2000 panel 108 mmol/L Abnormal 98-107 Comprehensi ve Internal Medicine Work Phone: Comment on above: [facility] [address] [place], [place], [address] Comprehensive metabolic 2000 panel 25.0 mmol/L Normal 21.0-32.0 Comprehensi ve Internal Medicine Work Phone: Comment on above: [facility] [address] [place], [place], [address] Comprehensive metabolic 2000 panel 9 1 Normal 5-15 Comprehensi ve Internal Medicine Work Phone: Comment on above: [facility] [address] [place], [place], [address] Comprehensive metabolic 2000 panel 81 mL/min Normal Comprehensi ve Internal Medicine Work Phone: Comment on above: Non- GFR Calc [facility] [address] [place], [address] Comprehensive metabolic 2000 panel 98 mL/min Normal Comprehensi ve Internal Medicine Work Phone: Comment on above: GFR Calc [facility] [address] [place], [address] Comprehensive metabolic 2000 panel 30.9 {RATIO} Abnormal 10-20 Comprehensi ve Internal Medicine Work Phone: Comment on above: [facility] [address] [place], [place], [address] Comprehensive metabolic 2000 panel 6.8 g/dL Normal 6.4-8.2 Comprehensi ve Internal Medicine Work Phone: Comment on above: [facility] [address] [place], [address] Comprehensive metabolic 2000 panel 3.6 g/dL Normal 3.4-5.0 Comprehensi ve Internal Medicine Work Phone: Comment on above: Please note revised Albumin AND Globulin reference rangeeffective 2016. [facility] [address] [place], [address] Comprehensive metabolic 2000 panel 3.2 g/dL Normal 2.2-4.2 Comprehensi ve Internal Medicine Work Phone: Comment on above: [facility] [address] [place], [address] Comprehensive metabolic 2000 panel 1.1 {RATIO} Normal 0.9-2.4 Comprehensi ve Internal Medicine Work Phone: Comment on above: [facility] [address] [place], [address] Comprehensive metabolic 2000 panel 8.5 mg/dL Normal 8.5-10.1 Comprehensi ve Internal Medicine Work Phone: Comment on above: [facility] spital [address] [place], [place], [address] Comprehensive metabolic 2000 panel 28 U/L Normal 15-37 Comprehensi ve Internal Medicine Work Phone: Comment on above: [facility] spital [address] [place], [place], [address] Comprehensive metabolic 2000 panel 21 U/L Normal 12-78 Comprehensi ve Internal Medicine Work Phone: Comment on above: [facility] spital [address] [place], [place], [address] Comprehensive metabolic 2000 panel 47 U/L Normal 45-117 Comprehensi ve Internal Medicine Work Phone: Comment on above: [facility] spital [address] [place], [place], [address] Comprehensive metabolic 2000 panel 3.9 mmol/L Normal 3.5-5.1 Comprehensi ve Internal Medicine Work Phone: Comment on above: [facility] [address] [place], [place], [address] Comprehensive metabolic 2000 panel 83 mg/dL Normal 70-110 Comprehensi ve Internal Medicine Work Phone: Comment on above: [facility] spital [address] [place], [address] Comprehensive metabolic 2000 panel 23 mg/dL Abnormal 7-18 Comprehensi ve Internal Medicine Work Phone: Comment on above: [facility] spital [address] [place], [place], [address] Comprehensive metabolic 2000 panel 0.70 mg/dL Normal 0.20-1.00 Comprehensi ve Internal Medicine Work Phone: Comment on above: [facility] spital [address] [place], [place], [address] Hemoglobin R2nCxowddr By: Fuentes stem Flask Carrier on 01-06-2017 Hemoglobin A1c/Hemoglobin.total mass fraction (Bld) 5.7 % Normal 4.2-6.3 Comprehensiv e Internal Medicine Work Phone: Comment on above: [facility] [address] [place], [place], [phone] Lipid ProfileOrdered By: Brianne tem Flask Carrier on 01-06-2017 Cholesterol in HDL mass conc 118 mg/dL Normal Comprehensive [facility] Work Phone: Comment on above: The drugs N-Acetylcy steine and Metamizole may falselydepress this assay. Reference Range HDL <40 mg/dL Low HDL Cholesterol HDL >or= 60 mg/dL High HDL Cholesterol [facility] [address] [place], [place], [phone] Cholesterol in LDL mass conc 59 mg/dL Normal 0-130 [facility] Work Phone: Cholesterol in LDL mass conc 59 mg/dL Normal 0-130 Comprehensive [facility] Work Phone: Comment on above: [facility] [address] [place], [place], [phone] Cholesterol in VLDL mass conc 8 mg/dL Normal 5-40 Comprehensive [facility] Work Phone: Comment on above: [facility] [address] [place], [place], [phone] Cholesterol mass conc 185 mg/dL Normal [facility] prehensive Internal Medicine Work Phone: Comment on above: <200 mg/dL Desirable 200-240 mg/dL Borderline >240 mg/dL High Risk [facility] [address] [place], [place], [address] Triglyceride mass conc 42 mg/dL Normal [facility] Work Phone: Comment on above: The drugs N-Acetylcy steine and Metamizole may falselydepress this assay.Serum Triglycerides Reference Interval Normal <150 mg/dL Borderline high 150 - 199 mg/dL High 200 - 499 mg/dL Very High > or = 500 mg/dL [facility] [address] [place], [address] Lipid Profile 8 mg/dL Normal 5-40 Comprehensi ve Internal Medicine Work Phone: Comment on above: [facility] [address] [place], [address] Vitamin D,25 HydroxyOrdered By: Bottling Line Operator on 01-06-2017 Vitamin D 25-OH 41.3 ng/mL Normal Comprehen sive Internal Medicine Work [...] 250 nmol/L) Toxicity >100 ng/mL (>250 nmol/L) [facility] [address] [place], [address] CBC W/AUTO DIFF WBC (98309)O rdered By: Bottling Line Operator on 08-22-2016 Basophils #/vol (Bld) 0.0 {x10E3/uL} Normal 0.0-0.2 [facility] Work Phone: Comment on above: PATIENT NOT FASTINGP ERFORMED BY: LIT LabCodarcy GallardoFrbtiz2813 [facility] [id number] Information: [facility] NURSE DRAW Basophils (Bld) [#/Vol] 0.0 10*3/uL Normal 0.0-0.2 [facility]; [facility] Work Phone: Comment on above: PATIENT NOT FASTINGP ERFORMED BY: [place] [id number] [facility] [id number] Information: [facility] NURSE DRAW Basophils Auto #/vol (Bld) 0.0 {x10E3/uL} Normal 0.0-0.2 [facility] Work Phone: Basophils/100 WBC (Bld) 1 % Normal [facility] Work Phone: Comment on above: PATIENT NOT FASTINGP ERFORMED BY: [address] [id number] Information: [facility] NURSE DRAW Basophils/100 WBC Auto (Bld) 1 % Normal [facility] Work Phone: Eosinophils #/vol (Bld) 0.2 {x10E3/uL} Normal 0.0-0.4 [facility] Work Phone: Comment on above: PATIENT NOT FASTINGP ERFORMED BY: [address] [id number] Information: [facility] NURSE DRAW Eosinophils (Bld) [#/Vol] 0.2 10*3/uL Normal 0.0-0.4 [facility]; [facility] Work Phone: Comment on above: PATIENT NOT FASTINGP ERFORMED BY: [address] [id number] Information: [facility] NURSE DRAW Eosinophils Auto #/vol (Bld) 0.2 {x10E3/uL} Normal 0.0-0.4 [facility] Work Phone: Eosinophils/100 WBC (Bld) 4 % Normal [facility] Work Phone: Comment on above: PATIENT NOT FASTINGP ERFORMED BY: [address] [id number] Information: [facility] NURSE DRAW Eosinophils/100 WBC Auto (Bld) 4 % Normal [facility] Work Phone: Erythrocyte distribution width Auto Ratio (RBC) 13.8 % Normal 12.3-15.4 [facility] Work Phone: Erythrocyte distribution width Ratio (RBC) 13.8 % Normal 12.3-15.4 [facility] Work Phone: Comment on above: PATIENT NOT FASTINGP ERFORMED BY: ILT JoseDimas LuongFgbwkn8645 [facility] [id number] Information: [facility] NURSE DRAW Hematocrit Auto Volume Fraction (Bld) 38.4 % Normal 34.0-46.6 [facility] Work Phone: Hematocrit Volume Fraction (Bld) 38.4 % Normal 34.0-46.6 [facility] Work Phone: Comment on above: PATIENT NOT FASTINGP ERFORMED BY: LIT Luong[address] [id number] Information: [facility] NURSE DRAW Hemoglobin mass conc (Bld) 12.6 g/dL Normal 11.1-15.9 [facility] Work Phone: Comment on above: PATIENT NOT FASTINGP ERFORMED BY: LIT [facility] [address] [id number] Information: [facility] NURSE DRAW Immature granulocytes #/vol (Bld) 0.0 {x10E3/uL} Normal 0.0-0.1 [facility] Work Phone: Comment on above: PATIENT NOT FASTINGP ERFORMED BY: LIT [address] [id number] Information: [facility] NURSE DRAW Immature granulocytes (Bld) [#/Vol] 0.0 10*3/uL Normal 0.0-0.1 [facility]; [facility] Work Phone: Comment on above: PATIENT NOT FASTINGP ERFORMED BY: LIT LabCo[address] [id number] Information: [facility] NURSE DRAW Immature granulocytes/100 WBC (Bld) 0 % Normal [facility] Work Phone: Comment on above: PATIENT NOT FASTINGP ERFORMED BY: LIT [address] [place] [id number] Information: [facility] NURSE DRAW Lymphocytes #/vol (Bld) 1.6 {x10E3/uL} Normal 0.7-3.1 [facility] Work Phone: Comment on above: PATIENT NOT FASTINGP ERFORMED BY: LIT [place] [id number] [facility] [id number] Information: [facility] NURSE DRAW Lymphocytes (Bld) [#/Vol] 1.6 10*3/uL Normal 0.7-3.1 [facility]; [facility] Work Phone: Comment on above: PATIENT NOT FASTINGP ERFORMED BY: LIT [address] [id number] Information: [facility] NURSE DRAW Lymphocytes Auto #/vol (Bld) 1.6 {x10E3/uL} Normal 0.7-3.1 [facility] Work Phone: Lymphocytes/100 WBC (Bld) 39 % Normal [facility] Work Phone: Comment on above: PATIENT NOT FASTINGP ERFORMED BY: LIT [place] [id number] [facility] [id number] Information: [facility] NURSE DRAW Lymphocytes/100 WBC Auto (Bld) 39 % Normal [facility] Work Phone: MCH Auto Entitic mass (RBC) 30.0 pg Normal 26.6-33.0 [facility] Work Phone: MCH Entitic mass (RBC) 30.0 pg Normal 26.6-33.0 [facility] Work Phone: Comment on above: PATIENT NOT FASTINGP ERFORMED BY: LIT [place] [id number] [facility] [id number] Information: [facility] NURSE DRAW MCHC Auto mass conc (RBC) 32.8 g/dL Normal 31.5-35.7 [facility] Work Phone: MCHC mass conc (RBC) 32.8 g/dL Normal 31.5-35.7 Comp rehensive Internal Medicine Work Phone: Comment on above: PATIENT NOT FASTINGP ERFORMED BY: [place] [id number] [facility] [id number] Information: [facility] NURSE DRAW MCV Auto Entitic volume (RBC) 91 fL Normal 79-97 [facility] Work Phone: MCV Entitic volume (RBC) 91 fL Normal 79-97 [facility] Work Phone: Comment on above: PATIENT NOT FASTINGP ERFORMED BY: [facility] [id number] Information: [facility] NURSE DRAW Monocytes #/vol (Bld) 0.4 {x10E3/uL} Normal 0.1-0.9 [facility] Work Phone: Comment on above: PATIENT NOT FASTINGP ERFORMED BY: [address] [id number] Information: [facility] NURSE DRAW Monocytes (Bld) [#/Vol] 0.4 10*3/uL Normal 0.1-0.9 [facility]; [facility] Work Phone: Comment on above: PATIENT NOT FASTINGP ERFORMED BY: [address] [id number] Information: [facility] NURSE DRAW Monocytes Auto #/vol (Bld) 0.4 {x10E3/uL} Normal 0.1-0.9 [facility] Work Phone: Monocytes/100 WBC (Bld) 9 % Normal [facility] Work Phone: Comment on above: PATIENT NOT FASTINGP ERFORMED BY: [address] [id number] Information: [facility] NURSE DRAW Monocytes/100 WBC Auto (Bld) 9 % Normal [facility] Work Phone: Neutrophils #/vol (Bld) 2.0 {x10E3/uL} Normal 1.4-7.0 [facility] Work Phone: Comment on above: PATIENT NOT FASTINGP ERFORMED BY: LIT [facility] Prrmrg0932 [facility] [id number] Information: [facility] NURSE DRAW Neutrophils (Bld) [#/Vol] 2.0 10*3/uL Normal 1.4-7.0 [facility]; [facility] Work Phone: Comment on above: PATIENT NOT FASTINGP ERFORMED BY: LIT JoseCo Wgofsi1336 [facility] [id number] Information: [facility] NURSE DRAW Neutrophils Auto #/vol (Bld) 2.0 {x10E3/uL} Normal 1.4-7.0 [facility] Work Phone: Neutrophils/100 WBC (Bld) 47 % Normal [facility] Work Phone: Comment on above: PATIENT NOT FASTINGP ERFORMED BY: LIT [facility] No.2Domonique Dnhqmz0344 [facility] [id number] Information: [facility] NURSE DRAW Neutrophils/100 WBC Auto (Bld) 47 % Normal [facility] Work Phone: Platelets #/vol (Bld) 203 {x10E3/uL} Normal 150-379 [facility] Work Phone: Comment on above: PATIENT NOT FASTINGP ERFORMED BY: LIT JoseDomonique Fsprfe0924 [facility] [id number] Information: [facility] NURSE DRAW Platelets (Bld) [#/Vol] 203 10*3/uL Normal 150-379 [facility]; [facility] Work Phone: Comment on above: PATIENT NOT FASTINGP ERFORMED BY: LIT [facility]2Co Svwrke8787 [facility] [id number] Information: [facility] NURSE DRAW Platelets Auto #/vol (Bld) 203 {x10E3/uL} Normal 150-379 [facility] Work Phone: RBC #/vol (Bld) 4.20 {x10E6/uL} Normal 3.77-5.28 Comp rehensive Internal Medicine Work Phone: Comment on above: PATIENT NOT FASTINGP ERFORMED BY: LIT LabCoApril Ville [id number] [facility] [id number] Information: [facility] NURSE DRAW RBC (Bld) [#/Vol] 4.20 10*6/uL Normal 3.77-5.28 [facility] Internal Medicine; [facility] Work Phone: Comment on above: PATIENT NOT FASTINGP ERFORMED BY: LIT [facility] Dqrtqa0024 [facility] [id number] Information: [facility] NURSE DRAW RBC Auto #/vol (Bld) 4.20 {x10E6/uL} Normal 3.77-5.28 [facility] Work Phone: WBC #/vol (Bld) 4.2 {x10E3/uL} Normal 3.4-10.8 [facility] Internal Medicine Work Phone: Comment on above: PATIENT NOT FASTINGP ERFORMED BY: [place] [id number] [facility] [id number] Information: [facility] NURSE DRAW WBC (Bld) [#/Vol] 4.2 10*3/uL Normal 3.4-10.8 [facility] Internal Medicine; [facility] Work Phone: Comment on above: PATIENT NOT FASTINGP ERFORMED BY: [place] [id number] [facility] [id number] Information: [facility] NURSE DRAW WBC Auto #/vol (Bld) 4.2 {x10E3/uL} Normal 3.4-10.8 [facility] Internal Medicine Work Phone: METABOLIC PANEL, COMPREHENSI VE ([id number])Ordered By: Bottling Line Operator on 08-22-2016 Albumin mass conc 4.2 g/dL Normal 3.5-4.8 Compreh [facility] Internal Medicine Work Phone: Comment on above: PATIENT NOT FASTINGP ERFORMED BY: LabHenry [facility]6370 [facility] [id number] Albumin/Globulin mass ratio 1.6 {ratio} Normal 1.2-2.2 [facility] Internal Medicine Work Phone: Comment on above: PATIENT NOT FASTINGP ERFORMED BY: CB [facility] Udxoxp0238 [address]Dublin [place] [id number] ALP [Catalytic activity/Vol] 42 U/L Normal 39-117 [facility]; [facility] Internal Medicine Work Phone: Comment on above: PATIENT NOT FASTINGP ERFORMED BY: CB [facility] Aksuey8792 [address]za RoadDublin [place] [id number] ALP enzyme act/vol 42 [iU]/L Normal 39-117 [facility] Internal Medicine Work Phone: Comment on above: PATIENT NOT FASTINGP ERFORMED BY: CB [facility] Jsdbgc2415 [address] RoadDublin [place] [id number] ALT [Catalytic activity/Vol] 14 U/L Normal 0-32 [facility] Internal Medicine; [facility] Internal Medicine Work Phone: Comment on above: PATIENT NOT FASTINGP ERFORMED BY: CB [facility] Nubgai4005 [address] RoadDublin [place] [id number] ALT enzyme act/vol 14 [iU]/L Normal 0-32 [facility] Internal Medicine Work Phone: Comment on above: PATIENT NOT FASTINGP ERFORMED BY: CB [facility] Gjizhx6726 [address]za RoadDublin [place] [id number] AST [Catalytic activity/Vol] 23 U/L Normal 0-40 [facility] Internal Medicine; [facility] Internal Medicine Work Phone: Comment on above: PATIENT NOT FASTINGP ERFORMED BY: CB [facility] Metgha3261 [address] RoadDublin [place] [id number] AST enzyme act/vol 23 [iU]/L Normal 0-40 [facility] Internal Medicine Work Phone: Comment on above: PATIENT NOT FASTINGP ERFORMED BY: CB [facility] Cmgorq5323 [address] RoadDublin [place] [id number] Bilirubin mass conc 0.8 mg/dL Normal 0.0-1.2 [facility] Internal Medicine Work Phone: Comment on above: PATIENT NOT FASTINGP ERFORMED BY: CB [facility] Lxfpzf4444 [address] RoadDublin [place] [id number] Calcium mass conc 9.0 mg/dL Normal 8.7-10.3 Compreh ensive Internal Medicine Work Phone: Comment on above: PATIENT NOT FASTINGP ERFORMED BY: CB [facility] Zcbjmf6604 [address] RoadDublin [place] [id number] Chloride molar conc 103 mmol/L Normal 96-106 Compr ehensive Internal Medicine Work Phone: Comment on above: PATIENT NOT FASTINGP ERFORMED BY: CB [facility] Xpdckv8836 [address] RoadDublin [place] [id number] CO2 molar conc 23 mmol/L Normal 18-29 Comprehens mony Internal Medicine Work Phone: Comment on above: PATIENT NOT FASTINGP ERFORMED BY: CB [facility] Vpmxxd0568 [address] RoadDublin [place] [id number] Creatinine mass conc 0.84 mg/dL Normal 0.57-1.00 Comp [facility] centerensive Internal Medicine Work Phone: Comment on above: PATIENT NOT FASTINGP ERFORMED BY: CB [facility] Mhguyc0796 [address]Dublin [place] [id number] GFR/1.73 sq M predicted among blacks CKD-EPI vol rate/area (S/P/Bld) 79 mL/min/1.73 Normal Comprehensiv e Internal Medicine Work Phone: Comment on above: PATIENT NOT FASTINGP ERFORMED BY: CB [facility] Qomknh2786 [address] RoadDublin [place] [id number] GFR/1.73 sq M predicted among non-blacks CKD-EPI vol rate/area (S/P/Bld) 69 mL/min/1.73 Normal [facility] Work Phone: Comment on above: PATIENT NOT FASTINGP ERFORMED BY: CB [facility] Tliocl5140 [address]Dublin [place] [id number] Globulin Calculated mass conc (S) 2.6 g/dL Normal 1.5-4.5 [facility] Work Phone: Globulin mass conc (S) 2.6 g/dL Normal 1.5-4.5 [facility] Work Phone: Comment on above: PATIENT NOT FASTINGP ERFORMED BY: LIT LabDimas Gallardo6370 [facility] [id number] Glucose mass conc 91 mg/dL Normal 65-99 Compreh ensive Internal Medicine Work Phone: Comment on above: PATIENT NOT FASTINGP ERFORMED BY: LIT LabCo Wymzlh1215 [facility] [id number] Potassium molar conc 4.6 mmol/L Normal 3.5-5.2 Comp rehensive Internal Medicine Work Phone: Comment on above: PATIENT NOT FASTINGP ERFORMED BY: LIT LabDomonique Bzoqtm0542 [facility] [id number] Protein mass conc 6.8 g/dL Normal 6.0-8.5 Compreh ensive Internal Medicine Work Phone: Comment on above: PATIENT NOT FASTINGP ERFORMED BY: LIT LabCo Ihncae8516 [facility] [id number] Sodium molar conc 143 mmol/L Normal 134-144 Compreh ensive Internal Medicine Work Phone: Comment on above: PATIENT NOT FASTINGP ERFORMED BY: LIT [facility] Bvyudq9408 [facility] [id number] Urea nitrogen mass conc 23 mg/dL Normal 8-27 [facility] Work Phone: Comment on above: PATIENT NOT FASTINGP ERFORMED BY: LIT LabCoThe Memorial Hospital of Salem CountyGigjcb4034 [facility] [id number] Urea nitrogen/Creatinine mass ratio 27 mg/mg Normal 12-28 [facility] Work Phone: Comment on above: PATIENT NOT FASTINGP ERFORMED BY: LIT LabCoThe Memorial Hospital of Salem CountyIjtgvp1511 [facility] [id number] CBC W/Diff, AutomatedOrdered By: Bottling Line Operator on 04-09-2014 Absolute Lymph 1.46 {X10_3/ul} Normal 0.83-4.51 Compr ehensive Internal Medicine Work Phone: Absolute Neut 2.2 {X10_3/uL} Normal 2.0-7.7 Compreh ensive Internal Medicine Work Phone: Comment on above: Test performed at:[facility] [address] [place], [place] [id number] ; will review at 2/18 appt Basophils/100 WBC (Bld) 1.6 % Abnormal 0-1 [facility] Work Phone: Comment on above: Test performed at:[facility] [address] [place], [place] [id number] ; will review at 2/18 appt Basophils/100 WBC Auto (Bld) 1.6 % Abnormal 0-1 [facility] Work Phone: Eosinophils/100 WBC (Bld) 3.9 % Normal 0-5 [facility] Work Phone: Comment on above: Test performed at:[facility] [address] [place], [place] [id number] ; will review at 2/18 appt Eosinophils/100 WBC Auto (Bld) 3.9 % Normal 0-5 [facility] Work Phone: Erythrocyte distribution width Auto Ratio (RBC) 13.2 % Normal 11.6-14.6 [facility] Work Phone: Erythrocyte distribution width Ratio (RBC) 13.2 % Normal 11.6-14.6 [facility] Work Phone: Comment on above: Test performed at:[facility] Q[address] [place], [place] [id number] ; will review at 2/18 appt Hematocrit Auto Volume Fraction (Bld) 38.7 % Normal 37-47 Comprehens mony Internal Medicine Work Phone: Hematocrit Volume Fraction (Bld) 38.7 % Normal 37-47 [facility] Work Phone: Comment on above: Test performed at:[facility] [address] [place], [place] [id number] ; will review at 2/18 appt Hemoglobin mass conc (Bld) 12.6 g/dL Normal 12.0-15.0 [facility] Work Phone: Comment on above: Test performed at:[facility] [address] [place] [address] ; will review at 2/18 appt IM GRAN % 0.000 % Normal 0.0-0.9 [facility] Work Phone: Comment on above: IG% - Immature Granu locytes (promyelocytes, myelocytes andmetamyelocytes) > 1% indicates that a LEFT SHIFT is Present. Test performed at:[facility] [address] [place], [place] [id number] ; will review at 2/18 appt Lymphocytes #/vol (Bld) 1.46 {X10_3/ul} Normal 0.83-4.51 [facility] Work Phone: Comment on above: Test performed at:[facility] [address] [place] [address] ; will review at 2/18 appt Lymphocytes/100 WBC (Bld) 33.6 % Normal 19-41 [facility] Work Phone: Comment on above: Test performed at:[facility] [address] [place], [place] [id number] ; will review at 2/18 appt Lymphocytes/100 WBC Auto (Bld) 33.6 % Normal 19-41 [facility] Work Phone: MCH Auto Entitic mass (RBC) 30.3 pg Normal 27.0-32.0 [facility] Work Phone: MCH Entitic mass (RBC) 30.3 pg Normal 27.0-32.0 [facility] Work Phone: Comment on above: Test performed at:[facility] [address] [place], [place] [address] ; will review at 2/18 appt MCHC Auto mass conc (RBC) 32.6 {g/gl} Normal 32-36 [facility] Work Phone: MCHC mass conc (RBC) 32.6 {g/gl} Normal 32-36 [facility] prehensive Internal Medicine Work Phone: Comment on above: Test performed at:[facility] [address] [place], [place] [id number] ; will review at 2/18 appt MCV Auto Entitic volume (RBC) 93.0 fL Normal 81-99 [facility] Work Phone: MCV Entitic volume (RBC) 93.0 fL Normal 81-99 [facility] Work Phone: Comment on above: Test performed at:[facility] [address] [place], [place] [id number] ; will review at 2/18 appt Monocytes/100 WBC Auto (Bld) 10.8 % Abnormal 0-10 [facility] Work Phone: Comment on above: Test performed at:[facility] [address] [place], [place] [address] ; will review at 2/18 appt Neutrophils/100 WBC (Bld) 50.1 % Normal 47-70 [facility] Work Phone: Comment on above: Test performed at:[facility] [address] [place], [place] [id number] ; will review at 2/18 appt Neutrophils/100 WBC Auto (Bld) 50.1 % Normal 47-70 [facility] Work Phone: Platelet mean volume Auto Entitic volume (Bld) 10.5 fL Normal 6.2-12.0 [facility] Work Phone: Platelet mean volume Entitic volume (Bld) 10.5 fL Normal 6.2-12.0 Comprehensi ve Internal Medicine Work Phone: Comment on above: Test performed at:[facility] [address] [place], [place] [id number] ; will review at 2/18 appt Platelets #/vol (Bld) 187 10*3/uL Normal 150-450 [facility] Work Phone: Comment on above: Test performed at:[facility] [address] [place] [address] ; will review at 2/18 appt Platelets Auto #/vol (Bld) 187 10*3/uL Normal 150-450 [facility] Work Phone: RBC #/vol (Bld) 4.16 {M/mm3} Abnormal 4.2-5.4 Compreh ensive Internal Medicine Work Phone: Comment on above: Test performed at:[facility] [address] [place], [place] [address] ; will review at 2/18 appt RBC Auto #/vol (Bld) 4.16 {M/mm3} Abnormal 4.2-5.4 [facility] Work Phone: RDW SD 43.8 fL Normal 35.1-43.9 [facility] Work Phone: Comment on above: Test performed at:[facility] [address] [place], [place] [id number] ; will review at 2/18 appt WBC #/vol (Bld) 4.4 10*3/uL Normal 4.4-11.0 Comprehe nsive Internal Medicine Work Phone: Comment on above: Test performed at:[facility] [address] [place] [address] ; will review at 2/18 appt WBC Auto #/vol (Bld) 4.4 10*3/uL Normal 4.4-11.0 Com prehensive Internal Medicine Work Phone: Comprehensive Metabolic Prof ilOrdered By: Bottling Line Operator on 04-09-2014 Albumin mass conc 3.6 g/dL Normal 3.4-5.0 Compreh ensive Internal Medicine Work Phone: Comment on above: Test performed at:[facility] [address] [place] [address] Albumin/Globulin mass ratio 1.1 {RATIO} Normal 0.9-2.4 [facility] Work Phone: Comment on above: Test performed at:[facility] [address] [place] [address] ALT enzyme act/vol 25 U/L Normal 12-78 [facility] Internal Medicine Work Phone: Comment on above: Test performed at:[facility] [address] [place] [address] AST enzyme act/vol 22 U/L Normal 15-37 [facility]prresearch [facility] Internal Medicine Work Phone: Comment on above: Test performed at:[facility] [address] [place] [address] Bilirubin mass conc 0.50 mg/dL Normal 0.00-4.00 [facility] Internal Medicine Work Phone: Comment on above: Test performed at:[facility] [address] [place] [address] Calcium mass conc 8.8 mg/dL Normal 8.5-10.1 Compreh [facility] Internal [facility] Work Phone: Comment on above: Test performed at:[facility] [address] [place] [address] Chloride molar conc 107 mmol/L Normal 98-107 Compr [facility] Internal Medicine Work Phone: Comment on above: Test performed at:[facility] [address] [place] [address] CO2 molar conc 27.0 mmol/L Normal 21.0-32.0 [facility] Work Phone: Comment on above: Test performed at:[facility] [address] [place] [address] Creatinine mass conc 0.8 mg/dL Normal 0.6-1.0 Comp rehensive Internal Medicine Work Phone: Comment on above: Test performed at:[facility] [address] [place] [address] Globulin Calculated mass conc (S) 3.3 g/dL Normal 2.7-4.2 [facility] Work Phone: Globulin mass conc (S) 3.3 g/dL Normal 2.7-4.2 [facility] Work Phone: Comment on above: Test performed at:[facility] [address] [place] [address] Glucose mass conc 78 mg/dL Normal 70-110 Compreh ensive Internal Medicine Work Phone: Comment on above: Test performed at:[facility] [address] [place] [address] Potassium molar conc 4.4 mmol/L Normal 3.5-5.1 Comp rehensive Internal Medicine Work Phone: Comment on above: Test performed at:[facility] [address] [place] [address] Protein mass conc 6.9 g/dL Normal 6.4-8.2 Compreh ensive Internal Medicine Work Phone: Comment on above: Test performed at:[facility] [address] [place] [address] Sodium molar conc 140 mmol/L Normal 136-145 Compreh ensive Internal Medicine Work Phone: Comment on above: Test performed at:[facility] [address] [place] [address] Urea nitrogen mass conc 24 mg/dL Abnormal 7-18 [facility] Work Phone: Comment on above: Test performed at:[facility] [address] [place] [address] Comprehensive Metabolic Profil 6 1 Normal 5-15 [facility] Work Phone: Comment on above: Test performed at:[facility] [address] [place], [place] [id number] Comprehensive Metabolic Profil 1.1 {RATIO} Normal 0.9-2.4 [facility] Work Phone: Comprehensive Metabolic Profil 55 U/L Normal 50-136 [facility] Work Phone: Comment on above: Test performed at:[facility] [address] [place] [address] Comprehensive Metabolic Profil 30.0 {RATIO} Abnormal 10-20 [facility] Work Phone: Comment on above: Test performed at:[facility] [address] [place] [address] Comprehensive Metabolic Profil 3.3 g/dL Normal 2.7-4.2 [facility] Work Phone: Comment on above: Test performed at:[facility] [address] [place] [address] Comprehensive Metabolic Profil 6.9 g/dL Normal 6.4-8.2 [facility] Work Phone: Comment on above: Test performed at:[facility] [address] [place] [address] Thyroid Stim Hormone (TSH)Or dered By: Bottling Line Operator on 04-09-2014 Thyrotropin Qn 1.59 {uIU/mL} Normal 0.358-3.74 Compreh ensive Internal Medicine Work Phone: Comment on above: Test performed at:[facility] [address] [place], [place] [address] Vitamin D,25 HydroxyOrdered By: Bottling Line Operator on 04-09-2014 Vitamin D 25-OH 34.1 ng/mL [...] Toxicity >100 ng/mL (>250 nmol/L) Test performed at:[facility] [address] [place], [place] [address] HPV automatic (79432)Ordered By: Bottling Line Operator on 08-20-2012 Microscopic observation Other stain Nom (Unsp spec) . Normal Comprehens mony Internal Medicine Work Phone: Comment on above: Source.............C ervical;EndocervicalNo. of containers..01 CYTYC Thin Prep VialPATIENT NOT FASTINGPERFORMED BY: WB LabGiveit[address] [id number] BY: =G [facility] [address] [id number] BY: BN [facility] Hqshcwsiwr0845 [facility] [id number] Information: [id number] Pathology report final diagnosis Narrative [facility] Normal [facility] Work Phone: Comment on above: NEGATIVE FOR INTRAEP ITHELIAL LESION AND MALIGNANCY.CELLULAR CHANGES ASSOCIATED WITH ATROPHY ARE PRESENT.THIS SPECIMEN WAS RESCREENED PART OF OUR CLINICAL DATA RESEARCH PROGRAM.Satisfactory for evaluation. Endocervical and/or squamous metaplasticcells (endocervical component) are present.V73.81 ; Special screening examination, human papillomavirus [HPV]René Beck, Staff Counselor (ASCP)Aundrea Larsen, Supervisory Staff Counselor (ASCP) Source.............C ervical;EndocervicalNo. of containers..01 CYTYC Thin Prep VialPATIENT NOT FASTINGPERFORMED BY: [facility] Pytnbplubf31583 Graham StreetjaimeMarlborough Hospital [id number] BY: =G [facility] Xwfcrgrv[address] [id number] BY: [address] [id number] Information: [id number] HPV automatic (43762) PAPSMR Normal Com prehensive Internal Medicine Work Phone: [...] CYTYC Thin Prep VialPATIENT NOT FASTINGPERFORMED BY: [facility] [address]juzqf[address] [id number] BY: =G [facility] Ssylvqdpeb13[address] StreetjaimeMarlborough Hospital [id number] BY: [place] [address] [facility] [id number] Information: [id number] HPV, low volume rfxOrdered B y: Bottling Line Operator on 08-20-2012 HPV 16+18+31+33+35+39+45+ 51+52+56+58+59+66+68 DNA Probe+sig amp Ql (Cvx) Negative Normal [facility] Work Phone: Comment on above: This test detects fo urteen high-risk HPV types (16,18,31,33,35,39,45,51,52,56,58,59,66,68) without differentiation. Source.............C ervical;EndocervicalNo. of containers..01 CYTYC Thin Prep VialPATIENT NOT FASTINGPERFORMED BY: WB [facility] [address]so[address] [id number] BY: =G LabCo[address] [id number] BY: BN LabCoMichelle Ville [address] [facility] [id number] BILAT SCRN DIGITAL & CADOrde red By: Bottling Line Operator on 08-07-2012 BILAT SCRN DIGITAL & CAD [...] Rivera M.D.August 07, 2012 at 10:14:17 AM [id number] Signed GP/GP If you are the referring physician and would like to consult with theradiologist who provided this interpretation, please contact Lamar Xiong at [phone]. If this radiologist is unavailable, youwill be [...] Cochran M.D.July 24, 2012 at 4:50:04 PM [id number] Signed RU/RU If you are the referring physician and would like to consult with theradiologist who provided this interpretation, please contact Michelle Dubois. at [phone]. If this radiologist is unavailable, youwillbe directed to another radiologist to assist. If you are a patient with a question regarding this report, pleasecontactyour referring physician directly. Professional Interpretation Provided By: Estorian, Phone , These documents contain legally protected [...] mass conc (Bld) 12.8 g/dL Normal 12.0-15.0 [facility] Work Phone: MCH Auto Entitic mass (RBC) 30.7 pg Normal 27.0-32.0 [facility] Work Phone: MCH Entitic mass (RBC) 30.7 pg Normal 27.0-32.0 [facility] Work Phone: MCHC Auto mass conc (RBC) 33.2 g/dL Normal 32-36 [facility] Work Phone: MCHC mass conc (RBC) 33.2 g/dL Normal 32-36 Comp rehensive Internal Medicine Work Phone: MCV Auto Entitic volume (RBC) 92.6 fL Normal 81-99 [facility] Work Phone: MCV Entitic volume (RBC) 92.6 fL Normal 81-99 [facility] Internal Medicine Work Phone: Platelet mean volume Auto Entitic volume (Bld) 10.5 fL Normal 6.2-12.0 [facility] Internal Medicine Work Phone: Platelet mean volume Entitic volume (Bld) 10.5 fL Normal 6.2-12.0 Comprehensi ve Internal Medicine Work Phone: Platelets #/vol (Bld) [...] DEXA BONE DENSITY STUDY (HP) Ordered By: Bottling Line Operator on 04-03-2012 DEXA BONE DENSITY STUDY (HP) [...] Rivera M.D.April 03, 2012 at 1:15:10 PM [id number] Signed GP/GP If you are the referring physician and would like to consult with theradiologist who provided this interpretation, please contact Lamar Xiong at [phone]. If this radiologist is unavailable, youwill be directed to another radiologist to assist. If you are a patient with a question regarding this report, pleasecontactyour referring physician directly. Professional Interpretation Provided By: Estorian, Phone , These documents contain legally protected [...] documents. Dictated on 04/03/12 1239 by Miguel BABCOCK,Kariranscribed on 04/03/12 1319 by ITS IMPORTSign by Miguel BABCOCK,Graham on 04/03/12 1320 Sign by: Graham Rivera MD HEPATIC FUNCTION PANEL ([id number])Ordered By: Bottling Line Operator on 10-12-2011 Albumin mass conc 4.2 g/dL Normal 3.5-4.8 [facility] Internal Medicine Work Phone: Comment on above: PATIENT NOT FASTINGP ERFORMED BY: CB [facility] Resiep[address] [facility] [facility] [id number] Information: [id number] ALP [Catalytic activity/Vol] 46 U/L Normal 25-165 [facility]; [facility] Work Phone: Comment on above: PATIENT NOT FASTINGP ERFORMED BY: CB [facility] Fexbwc76[address] [facility] [facility] [id number] Information: [id number] ALP enzyme act/vol 46 [iU]/L Normal 25-165 [facility] Internal Medicine Work Phone: Comment on above: PATIENT NOT FASTINGP ERFORMED BY: CB [facility] Hrwsqk27[address] [facility] [facility] [id number] Information: [id number] ALT [Catalytic activity/Vol] 16 U/L Normal 0-40 [facility]; [facility] Work Phone: Comment on above: PATIENT NOT FASTINGP ERFORMED BY: CB [facility] Xbqhhc[address] [facility] [facility] [id number] Information: [id number] ALT enzyme act/vol 16 [iU]/L Normal 0-40 [facility] Internal Medicine Work Phone: Comment on above: PATIENT NOT FASTINGP ERFORMED BY: LIT [facility] Xfvmyw1369 [facility] [place] [id number] Information: [id number] AST [Catalytic activity/Vol] 29 U/L Normal 0-40 [facility]; [facility] Internal Medicine Work Phone: Comment on above: PATIENT NOT FASTINGP ERFORMED BY: CB [facility] Dxfffh1321 [facility] [id number] Information: [id number] AST enzyme act/vol 29 [iU]/L Normal 0-40 [facility] Internal Medicine Work Phone: Comment on above: PATIENT NOT FASTINGP ERFORMED BY: LIT [facility] Neqago0193 [facility] [id number] Information: [id number] Bilirubin mass conc 0.5 mg/dL Normal 0.0-1.2 Compr [facility] Internal Medicine Work Phone: Comment on above: PATIENT NOT FASTINGP ERFORMED BY: CB [facility] Vpyuqu75[address] [facility] [id number] Information: [id number] Bilirubin.direct mass conc 0.19 mg/dL Normal 0.00-0.40 [facility] Internal Medicine Work Phone: Comment on above: PATIENT NOT FASTINGP ERFORMED BY: CB [facility] Hjdfnh[address] [facility] [id number] Information: [id number] Protein mass conc 6.6 g/dL Normal 6.0-8.5 Compreh [facility] Internal Medicine Work Phone: Comment on above: PATIENT NOT FASTINGP ERFORMED BY: CB [facility] Gglexk[address] [facility] [id number] Information: [id number] ABDOMEN LIMITEDOrdered By: Gary jeffries Flask Carrier on 10-10-2011 ABDOMEN LIMITED See Note Normal Comprehen [facility] Internal Medicine Work Phone: Comment on [...] size of the right kidney. The right mlrksquadhacep18.2 cm. Normal renal cortex. The right cortex measures .9 cm. Thereisno demonstrated renal mass or cyst. There is no right hydronephrosis. IMPRESSION:Mild dilatation of the intrahepatic biliary ducts.Small cyst in the right lobe of the liver. Signed:Graham Rivera M.D.October 10, 2011 at 10:45:03 AM [id number] Signed GP/GP If you are the referring physician and would like to consult with theradiologist who provided this interpretation, please contact Lamar Xiong at [phone]. If this radiologist is unavailable, youwill be directed to another radiologist to assist. If you are a patient with a question regarding this report, pleasecontactyour referring physician directly. Professional Interpretation Provided By: Estorian, Phone , These documents contain legally protected [...] destructionofthese documents. Dictated on 10/10/11 0940 by Kari Rivera MDranscribed on 10/10/11 1050 by ITS IMPORTSign by Graham Rivera MD on 10/10/11 1051 Sign by: Graham Rivera MD ABDOMEN/PELVIS WITH CONTRAST Ordered By: Bottling Line Operator on 09-17-2011 ABDOMEN/PELVIS WITH CONTRAST See Note [...] the left hepatic lobe on image 28 namjxvawf9px and one on image 29 measuring 8 [...] Portillo M.D.September 17, 2011 at 3:43:03 PM [phone] Signed GB/GB If you are the referring physician and would like to consult with theradiologist who provided this interpretation, please contact Henry Portillo M.D. at [phone]. If this radiologist is unavailable, you will bedirected to another radiologist to assist. If you are a patient with a question regarding this report, pleasecontactyour referring physician directly. Professional Interpretation Provided By: Estorian, Phone , Dictated on 09/17/11 1116 by [...] Medicine Work Phone: CBC WITH MANUAL DIFF ([id number]) Ordered By: Bottling Line Operator on 09-14-2011 Basophils #/vol (Bld) 0.0 {x10E3/uL} Normal 0.0-0.2 [facility] Work Phone: Comment on above: PATIENT NOT FASTINGP ERFORMED BY: [place] 3156770 [facility] [id number] Information: [id number] Basophils (Bld) [#/Vol] 0.0 10*3/uL Normal 0.0-0.2 [facility]; [facility] Work Phone: Comment on above: PATIENT NOT FASTINGP ERFORMED BY: [facility]6370 [facility] [id number] Information: [id number] Basophils Auto #/vol (Bld) 0.0 {x10E3/uL} Normal 0.0-0.2 [facility] Work Phone: Basophils/100 WBC (Bld) 1 % Normal 0-3 [facility] Work Phone: Comment on above: PATIENT NOT FASTINGP ERFORMED BY: [place] 3156770 [facility] [id number] Information: [id number] Basophils/100 WBC Auto (Bld) 1 % Normal 0-3 [facility] Work Phone: Eosinophils #/vol (Bld) 0.1 {x10E3/uL} Normal 0.0-0.4 [facility] Work Phone: Comment on above: PATIENT NOT FASTINGP ERFORMED BY: [place] 3156770 [facility] [id number] Information: [id number] Eosinophils (Bld) [#/Vol] 0.1 10*3/uL Normal 0.0-0.4 [facility]; [facility] Work Phone: Comment on above: PATIENT NOT FASTINGP ERFORMED BY: StemCyteZachary [place] 3603270 [facility] [id number] Information: [id number] Eosinophils Auto #/vol (Bld) 0.1 {x10E3/uL} Normal 0.0-0.4 [facility] Work Phone: Eosinophils/100 WBC (Bld) 2 % Normal 0-7 [facility] Work Phone: Comment on above: PATIENT NOT FASTINGP ERFORMED BY: AutomatticApril [place] 2335770 [facility] [id number] Information: [id number] Eosinophils/100 WBC Auto (Bld) 2 % Normal 0-7 [facility] Work Phone: Erythrocyte distribution width Auto Ratio (RBC) 14.1 % Normal 12.3-15.4 [facility] Work Phone: Erythrocyte distribution width Ratio (RBC) 14.1 % Normal 12.3-15.4 [facility] Work Phone: Comment on above: PATIENT NOT FASTINGP ERFORMED BY: [place] 3156770 [facility] [id number] Information: [id number] Hematocrit Auto Volume Fraction (Bld) 40.1 % Normal 34.0-46.6 [facility] Internal Medicine Work Phone: Hematocrit Volume Fraction (Bld) 40.1 % Normal 34.0-46.6 [facility] Internal Medicine Work Phone: Comment on above: PATIENT NOT FASTINGP ERFORMED BY: [place] 3156770 [facility] [id number] Information: [id number] Hemoglobin mass conc (Bld) 13.6 g/dL Normal 11.1-15.9 [facility] Work Phone: Comment on above: PATIENT NOT FASTINGP ERFORMED BY: LIT Mckeon Yxpjlj1395 [facility] [id number] Information: [id number] Immature granulocytes #/vol (Bld) 0.0 {x10E3/uL} Normal 0.0-0.1 [facility] Work Phone: Comment on above: PATIENT NOT FASTINGP ERFORMED BY: LabCoApril [place] 2335770 [facility] [id number] Information: [id number] Immature granulocytes (Bld) [#/Vol] 0.0 10*3/uL Normal 0.0-0.1 [facility]; [facility] Work Phone: Comment on above: PATIENT NOT FASTINGP ERFORMED BY: [address] [id number] Information: [id number] Immature granulocytes/100 WBC (Bld) 0 % Normal 0-2 [facility] Work Phone: Comment on above: PATIENT NOT FASTINGP ERFORMED BY: MikeApril [place] 2335770 [facility] [id number] Information: [id number] Lymphocytes #/vol (Bld) 1.7 {x10E3/uL} Normal 0.7-4.5 [facility] Work Phone: Comment on above: PATIENT NOT FASTINGP ERFORMED BY: LabZachary [place] 3603270 [facility] [id number] Information: [id number] Lymphocytes (Bld) [#/Vol] 1.7 10*3/uL Normal 0.7-4.5 [facility]; [facility] Work Phone: Comment on above: PATIENT NOT FASTINGP ERFORMED BY: LabCoApril [place] 2335770 [facility] [id number] Information: [id number] Lymphocytes Auto #/vol (Bld) 1.7 {x10E3/uL} Normal 0.7-4.5 [facility] Work Phone: Lymphocytes/100 WBC (Bld) 35 % Normal 14 [facility] Work Phone: Comment on above: PATIENT NOT FASTINGP ERFORMED BY: LIT Luonglin6370 [facility] [id number] Information: [id number] Lymphocytes/100 WBC Auto (Bld) 35 % Normal 14- [facility] Work Phone: MCH Auto Entitic mass (RBC) 30.8 pg Normal 26.6-33.0 [facility] Work Phone: MCH Entitic mass (RBC) 30.8 pg Normal 26.6-33.0 [facility] Work Phone: Comment on above: PATIENT NOT FASTINGP ERFORMED BY: LIT [address] [id number] Information: [id number] MCHC Auto mass conc (RBC) 33.9 g/dL Normal 31.5-35.7 [facility] Work Phone: MCHC mass conc (RBC) 33.9 g/dL Normal 31.5-35.7 [facility] Internal Medicine Work Phone: Comment on above: PATIENT NOT FASTINGP ERFORMED BY: LIT [facility] [address] [id number] Information: [id number] MCV Auto Entitic volume (RBC) 91 fL Normal 79-97 [facility] Work Phone: MCV Entitic volume (RBC) 91 fL Normal 79-97 [facility] Work Phone: Comment on above: PATIENT NOT FASTINGP ERFORMED BY: LIT [place] 2175070 [facility] [id number] Information: [id number] Monocytes #/vol (Bld) 0.5 {x10E3/uL} Normal 0.1-1.0 [facility] Work Phone: Comment on above: PATIENT NOT FASTINGP ERFORMED BY: LIT Laws70 [facility] [id number] Information: [id number] Monocytes (Bld) [#/Vol] 0.5 10*3/uL Normal 0.1-1.0 [facility]; [facility] Work Phone: Comment on above: PATIENT NOT FASTINGP ERFORMED BY: LIT Gallardo6370 [facility] [id number] Information: [id number] Monocytes Auto #/vol (Bld) 0.5 {x10E3/uL} Normal 0.1-1.0 [facility] Work Phone: Monocytes/100 WBC (Bld) 11 % Normal - [facility] Work Phone: Comment on above: PATIENT NOT FASTINGP ERFORMED BY: LIT Luonglin6370 [facility] [id number] Information: [id number] Monocytes/100 WBC Auto (Bld) 11 % Normal - [facility] Work Phone: Neutrophils #/vol (Bld) 2.5 {x10E3/uL} Normal 1.8-7.8 [facility] Work Phone: Comment on above: PATIENT NOT FASTINGP ERFORMED BY: LIT Luonglin6370 [facility] [id number] Information: [id number] Neutrophils (Bld) [#/Vol] 2.5 10*3/uL Normal 1.8-7.8 [facility]; [facility] Work Phone: Comment on above: PATIENT NOT FASTINGP ERFORMED BY: LIT Luonglin6370 [facility] [id number] Information: [id number] Neutrophils Auto #/vol (Bld) 2.5 {x10E3/uL} Normal 1.8-7.8 [facility] Work Phone: Neutrophils/100 WBC (Bld) 51 % Normal 40-74 [facility] Work Phone: Comment on above: PATIENT NOT FASTINGP ERFORMED BY: LIT Laws70 [facility] [id number] Information: [id number] Neutrophils/100 WBC Auto (Bld) 51 % Normal 40-74 [facility] Work Phone: Platelets #/vol (Bld) 202 {x10E3/uL} Normal 140-415 [facility] Work Phone: Comment on above: PATIENT NOT FASTINGP ERFORMED BY: LIT Mckeon Wxihex5672 [facility] [id number] Information: [id number] Platelets (Bld) [#/Vol] 202 10*3/uL Normal 140-415 [facility]; [facility] Work Phone: Comment on above: PATIENT NOT FASTINGP ERFORMED BY: LIT [facility] Krqhug4481 [facility] [id number] Information: [id number] Platelets Auto #/vol (Bld) 202 {x10E3/uL} Normal 140-415 [facility] Work Phone: RBC #/vol (Bld) 4.41 {x10E6/uL} Normal 3.77-5.28 [facility] Internal Medicine Work Phone: Comment on above: PATIENT NOT FASTINGP ERFORMED BY: LIT [facility]6370 [facility] [id number] Information: [id number] RBC (Bld) [#/Vol] 4.41 10*6/uL Normal 3.77-5.28 [facility] Internal Medicine; [facility] Work Phone: Comment on above: PATIENT NOT FASTINGP ERFORMED BY: LIT LabZachary Ville 3603270 [facility] [id number] Information: [id number] RBC Auto #/vol (Bld) 4.41 {x10E6/uL} Normal 3.77-5.28 [facility] Work Phone: WBC #/vol (Bld) 4.8 {x10E3/uL} Normal 4.0-10.5 Compr [facility] Internal Medicine Work Phone: Comment on above: PATIENT NOT FASTINGP ERFORMED BY: LabCoThe [facility] Hospital of Salem CountyBpmrpk9380 [facility] [id number] Information: [id number] WBC (Bld) [#/Vol] 4.8 10*3/uL Normal 4.0-10.5 [facility] Internal Medicine; [facility] Work Phone: Comment on above: PATIENT NOT FASTINGP ERFORMED BY: [facility] Mlwjcf8233 [facility] [id number] Information: [id number] WBC Auto #/vol (Bld) 4.8 {x10E3/uL} Normal 4.0-10.5 [facility] Work Phone: BILAT SCRN DIGITAL & CADOrde red By: Bottling Line Operator on 08-04-2011 BILAT SCRN DIGITAL & CAD [...] EDTElectronically Signed GP/GP Professional Interpretation Provided By: [facility], , To consult with a radiologist regarding this report, please call our [id number] line @ Dictated on 08/04/11 1037 by [...] conc (RBC) 34.2 g/dL Normal 32-36 Comp rehensive Internal Medicine Work Phone: MCV Auto Entitic volume (RBC) 92.5 fL Normal 81-99 [facility] Work Phone: MCV Entitic volume (RBC) 92.5 fL Normal 81-99 [facility] Work Phone: Neutrophils #/vol (Bld) 1.4 3/uL Abnormal 2.0-7.7 [facility] Work Phone: Neutrophils Auto #/vol (Bld) 1.4 3/uL Abnormal 2.0-7.7 [facility] Work Phone: Platelets #/vol (Bld) 148 10*3/uL Abnormal 150-450 Co mprehensive Internal Medicine Work Phone: Platelets Auto #/vol (Bld) 148 10*3/uL Abnormal 150-450 [facility] Work Phone: RBC #/vol (Bld) NORM C+C Normal Comprehen sive Internal Medicine Work Phone: RBC #/vol (Bld) [...] ALP enzyme act/vol 42 U/L Abnormal 50-136 [facility] Internal Medicine Work Phone: ALT enzyme act/vol 20 U/L Normal 12-78 Compre [facility] Internal Medicine Work Phone: Anion gap 3 molar conc 7 mmol/L Normal 5-15 [facility] Work Phone: Anion gap molar conc 7 mmol/L Normal 5-15 Comp [facility] centerens[facility] Internal Medicine Work Phone: AST enzyme act/vol 27 U/L Normal 15-37 Compre [facility] Internal Medicine Work Phone: Bilirubin mass conc 0.60 mg/dL Normal 0.00-1.00 Compr ensive Internal Medicine Work Phone: Calcium mass conc [...] > or = 500 mg/dL UACOrdered By: System [employer] r on 07-25-2011 RBC #/vol (U) 0 [...] D deficiency has been defined by the Leadore ofMedicine and an Endocrine Society practice guideline as alevel of serum 25-OH vitamin D less than 20 ng/mL (1,2).The Endocrine Society went on to further define vitamin Dinsufficiency as a level between 21 and 29 ng/mL (2).1. IOM (Leadore of Medicine). 2010. Dietary reference intakes for calcium and D. [place]: The National Academies Press.2. Courtney MF, Juan BOYLE, Karime FARMER, et al. Evaluation, treatment, and prevention of vitamin D deficiency: an Endocrine Society clinical practice guideline. JCEM. 2010; 96(7):1911-30.Performed at: [facility] [address] [id number] Director: Marylu Mendez MD, Phone: [phone] f/u 08/24/11 URINE TORIE CULTURE-PAULA COL C OUNT (40348)Ordered By: Bottling Line Operator on 10-19-2010 Bacteria identified Cx Nom (U) MUG Normal [facility] Work Phone: Comment on above: Mixed urogenital suzy ra600 Colonies/mL PATIENT NOT FASTINGP ERFORMED BY: [employer] [place] [address] [id number] Information: SRC:UR P83045 Bacteria identified Cx Nom (U) Final report Normal [facility] Work Phone: Comment on above: PATIENT NOT FASTINGP ERFORMED BY: [employer] O[address] [place] [address] [id number] Information: SRC:UR M90360 Urinalysis, Office (03199)Or dered By: Katarina Easley on 10-19-2010 Bilirubin [...] Internal Medicine Work Phone: ABDOMEN COMPLETEOrdered By: Bottling Line Operator on 10-01-2010 ABDOMEN COMPLETE See Note Normal [...] is inkeeping with fibroid change. Dictated on 10/01/1032 by Miguel BABCOCK,Kariranscribed on 10/04/10911 by ITS IMPORTSign by Miguel BABCOCK,Graham on 10/04/10912 Sign by: Graham Rivera MD PROCEDURE: ULTRASOUN [...] MD URINE TORIE CULTURE-PAULA COL C OUNT (08801)Ordered By: Bottling Line Operator on 09-28-2010 Bacteria identified Cx Nom (U) [...] primarily for treating urinary tract infections. (CLSI, [id number],2009) PATIENT NOT FASTINGP ERFORMED BY: [employer] [place] [id number] Information: SRC:UR D23773 Bacteria identified Cx Nom (U) Final report Normal [facility] Work Phone: Comment on above: PATIENT NOT FASTINGP ERFORMED BY: [employer]6370 [employer] [place] [id number] Information: SRC:UR O09414 Other Antibiotic [facility] prehensive Internal Medicine Work Phone: Comment on above: S = Susceptibl e; I = Intermediate; R = Resistant P = Positive; N = Negative MICS are expressed in micrograms per mL Antibiotic RSLT#1 RSLT#2 RSLT#3 RSLT#4Ciprofloxacin SLevofloxacin SNitrofurantoin SPenicillin SVancomycin S PATIENT NOT FASTINGP ERFORMED BY: LIT [facility] Bflpiq1045 [facility] [id number] Information: SRC:UR G03075 Urinalysis, Office (33150)Or dered By: Nancy Ramirez on 09-28-2010 Bilirubin [...] [facility] Work Phone: Urinalysis, Office (02776)on 09-28-2010 Bilirubin Ql (U) Negative Normal Comprehe [...] BILAT SCRN DIGITAL & CADOrde red By: Bottling Line Operator on 07-29-2010 BILAT SCRN DIGITAL & CAD [...] clinically suspiciousabnormality. Dictated on 07/29/10 0946 by Kel Rivera MDscribed on 07/29/10 1112 by ITS IMPORTSign by Graham Rivera MD on 07/29/10 1113 Sign by: Graham Rivera MD VIT D,25 02302Zkuvgzn By: Fuentes stem Flask Carrier on 07-15-2010 VIT D,25 84161 42.8 ng/mL Normal 32.0-100.0 Comprehens [facility] Internal Medicine Work Phone: Comment on above: Recent studies consi brittany the lower limit of 32.0 ng/mL to mari threshold for optimal health.Servando MA. J Nutr. 2004;135(2):317-22.Performed at: [facility] [address] [id number] Director: Marylu Mendez MD, Phone: [phone] CBCD,SMEAR DIFFOrdered By: Gary barrosotem Flask Carrier on 04-01-2010 Erythrocyte distribution width Auto Ratio (RBC) 13.4 % Normal 11.6-14.6 [facility] Work Phone: Erythrocyte distribution width Ratio (RBC) 13.4 % Normal 11.6-14.6 [facility] Work Phone: Hematocrit Auto Volume Fraction (Bld) 37.6 % Normal 37-47 Comprehens [facility] [...] Neutrophils #/vol (Bld) 2.4 3/uL Normal 2.0-7.7 [facility] Internal Medicine Work Phone: Neutrophils Auto #/vol (Bld) 2.4 3/uL Normal 2.0-7.7 [facility] Internal Medicine Work Phone: Platelets #/vol (Bld) SeeNote Normal Com [facility] Internal Medicine Work Phone: Comment on above: Result: ADEQUATE Platelets #/vol (Bld) 190 10*3/uL Normal 150-450 Co [facility] Internal Medicine Work Phone: Platelets Auto #/vol (Bld) 190 10*3/uL Normal 150-450 [facility] Internal Medicine Work Phone: RBC #/vol (Bld) 4.06 {M/mm3} Abnormal 4.2-5.4 Compreh [facility] Internal Medicine Work Phone: RBC Auto #/vol (Bld) 4.06 {M/mm3} Abnormal 4.2-5.4 Co [facility] Internal Medicine Work Phone: WBC #/vol (Bld) 4.3 10*3/uL Abnormal 4.4-11.0 Comprehe [facility] Internal Medicine Work Phone: WBC Auto #/vol (Bld) 4.3 10*3/uL Abnormal 4.4-11.0 Com [facility] Internal Medicine Work Phone: CBCD,SMEAR DIFF SeeNote Normal [facility] Work Phone: Comment on above: Result: NORM C+C Result: ADEQUATE CBCD,SMEAR DIFF 64 % Normal 47-70 [facility] [place] Work Phone: CBCD,SMEAR DIFF 100 1 Normal [facility] [place] [facility] Work Phone: VIT D,25 16526Aycwjgt By: Sy stem Flask Carrier on 04-01-2010 VIT D,25 34480 37.2 ng/mL Normal 32.0-100.0 Comprehens [facility] Internal Medicine Work Phone: Comment on above: Recent studies consi brittany the lower limit of 32.0 ng/mL to mari threshold for optimal health.Servando MA. J Nutr. 2004;135(2):317-22.Performed at: [address] [id number] Director: Marylu Mendez MD, Phone: [phone] DEXA BONE DENSITY STUDY (HP) Ordered By: Bottling Line Operator on 03-30-2010 DEXA BONE DENSITY STUDY (HP) See Note Normal [facility] Work Phone: Comment on above: CLINICAL:Female, 69 years old. This is a postmenopausal follow up. EXAMINATION:DUAL ENERGY X-RAY ABSORPTIOMETRY / DEXA. TECHNIQUE:Bone Mineral Density (BMD) measurements of lumbar spine and bilateralhipswere obtained using a Clean Plates scanner.. COMPARISON:Comparison is made with prior study [...] [email or web address] Dictated on 03/30/10 1049 by Miguel BABCOCK,Kariranscribed on 03/30/10 153 by ITS IMPORTSign by Graham Rivera MD on 03/30/10 153 Sign by: Graham Rivera MD VIT D,25 [id number] By: Sy stem Flask Carrier on 01-01-2010 VIT D,25 59364 41.2 ng/mL Normal 32.0-100.0 Comprehens [facility]y Internal Medicine Work Phone: Comment on above: Recent studies consi brittany the lower limit of 32.0 ng/mL to mari threshold for optimal health.Servando MA. J Nutr. 2004;135(2):317-22.Performed at: [facility] LabPatrick Ville [id number] Director: Marylu Mendez MD, Phone: [phone] Thin prep Pap ([id number])Ordered By: Bottling Line Operator on 09-30-2009 Microscopic observation Other stain Nom (Unsp spec) . Normal Comprehens [facility] Internal Medicine Work Phone: Comment on above: Source.............C ervical;EndocervicalNo. of containers..01 CYTYC Thin Prep VialPATIENT NOT FASTINGPERFORMED BY: Lab[address] [id number] Information: [id number] Pathology report final diagnosis Narrative [facility] Normal [facility] Work Phone: Comment on above: NEGATIVE FOR INTRAEP ITHELIAL LESION AND MALIGNANCY.CELLULAR CHANGES ASSOCIATED WITH ATROPHY ARE PRESENT.Satisfactory for evaluation. Endocervical component may not bedistinguished in cases of atrophy.V76.2 ; Screening for malignant neoplasm of the cervixRona Murphy, Staff Counselor (ASCP) Source.............C ervical;EndocervicalNo. of containers..01 CYTYC Thin Prep VialPATIENT NOT FASTINGPERFORMED BY: [employer] [id number] Information: [id number] Thin prep Pap ([id number]) PAPSMR Normal [facility] Internal Medicine Work Phone: Comment on above: [...] CYTYC Thin Prep VialPATIENT NOT FASTINGPERFORMED BY: [employer] [id number] Information: [id number] CBCD,SMEAR DIFFOrdered By: Gary ystem Flask Carrier on 08-21-2009 Erythrocyte distribution width Auto Ratio (RBC) 13.9 % Normal 11.6-14.6 Comprehensive [...] conc (RBC) 33.9 g/dL Normal 32-36 Comp rehensive Internal Medicine [...] #/vol (Bld) 4.05 {M/mm3} Abnormal 4.2-5.4 Co mprehensive Internal Medicine Work Phone: WBC #/vol (Bld) 3.2 10*3/uL Abnormal 4.4-11.0 Comprehe nsive Internal Medicine Work Phone: WBC Auto #/vol (Bld) 3.2 10*3/uL Abnormal 4.4-11.0 Com prehensive Internal Medicine Work Phone: CBCD,SMEAR DIFF [address] [facility] Work Phone: CBCD,SMEAR DIFF 49 % Normal 47-[address] [facility] Work Phone: COMP METABOLICOrdered By: Fuentes stem Flask Carrier on 08-21-2009 Albumin mass conc 3.6 g/dL Normal 3.4-5.0 Compreh ensive Internal Medicine Work Phone: Albumin/Globulin mass ratio 1.1 {RATIO} Normal 0.9-2.4 [facility] Work Phone: ALP enzyme act/vol 56 U/L Normal 50-136 Compre [facility] Internal Medicine Work Phone: ALT enzyme act/vol 18 U/L Normal 12-78 Compre [facility] Internal Medicine Work Phone: Anion gap 3 molar conc 8 mmol/L Normal 5-15 [facility] Work Phone: Anion gap molar conc 8 mmol/L Normal 5-15 Comp [facility] Work Phone: AST enzyme act/vol 19 U/L Normal 15-37 Compre [facility] Internal Medicine Work Phone: Bilirubin mass conc 0.40 mg/dL Normal 0.00-1.00 Compr ensive Internal Medicine Work Phone: Calcium mass conc 8.8 mg/dL Normal 8.5-10.1 Compreh ensive Internal Medicine Work Phone: Chloride molar conc 102 mmol/L Normal 98-107 Compr ehensive Internal Medicine Work Phone: CO2 molar conc 30.0 mmol/L Normal 21.0-32.0 Comprehen sive Internal Medicine Work Phone: Creatinine mass conc 0.8 mg/dL Normal 0.6-1.0 Comp rehensive Internal Medicine Work Phone: GFR/1.73 sq M predicted among blacks MDRD vol rate/area (S/P/Bld) 92 mL/min/{1.73_m2} Normal Comprehe nsive Internal Medicine Work Phone: GFR/1.73 sq M.predicted [...] Potassium molar conc 4.7 mmol/L Normal 3.5-5.1 Comp rehensive Internal Medicine [...] Work Phone: COMPLETE UAOrdered By: Edmundo cotton Flask Carrier on 08-21-2009 Bacteria LM.HPF #/area (Urine sed) 0 SEEN Normal [facility] Work Phone: Clarity Nom (U) CLEAR Normal Comprehen sive Internal Medicine Work Phone: Color Nom (U) [...] #/vol (Bld) 0 SEEN Normal 0-[address] [facility] Work Phone: COMPLETE UA 0 [...] Work Phone: LIPIDOrdered By: Augie patel on 08-21-2009 Cholesterol in HDL mass conc [...] ensive Internal Medicine Work Phone: VIT D,25 [id number] By: Sy stem Flask Carrier on 08-21-2009 VIT D,25 24073 36.3 ng/mL Normal 32.0-100.0 Comprehens [facility] Internal Medicine Work Phone: Comment on above: Recent studies consi brittany the lower limit of 32.0 ng/mL to mari threshold for optimal health.Servando MA. J Nutr. 2004;135(2):317-22.Performed at: [address] [id number] Director: Marylu Mendez MD, Phone: [phone] BILAT SCRN DIGITAL & CADOrde red By: Bottling Line Operator on 07-27-2009 BILAT SCRN DIGITAL & CAD See Note Normal [facility] Work Phone: Comment on above: Exam Number: [id number] MAMMOGRAPHY - BILATERAL SCREENING INDICATION:Routine annual [...] BILAT SCRN DIGITAL & CADOrde red By: Bottling Line Operator on 07-09-2008 BILAT SCRN DIGITAL & CAD See Note Normal [facility] Work Phone: Comment on above: Exam Number: [id number] MAMMOGRAM, BILATERAL SCREENING DIGITAL AND CAD [...] mammograms werealso examined with computer-aided detection software ([employer], [employer] Reported By: DIANA DAVENPORT M.D. KNEE,4 OR MORE VIEWSOrdered By: Bottling Line Operator on 05-09-2008 KNEE,4 OR MORE VIEWS See Note Normal Comp rehensive Internal Medicine Work Phone: Comment on above: Exam Number: [id number] RIGHT KNEE, 4 VIEWS WITH WEIGHTBEARING CLINICAL STATEMENTPain. Bone is somewhat osteopenic. There is no joint effusion. Joint spaceis maintained. No erosion or fracture are found. There are somevascular calcifications in the lower leg. IMPRESSIONOsteopenic bone, otherwise normal knee. Reported By: MYLES ANDRADE M.D. Exam Number: [id number] RIGHT HIP, 2 VIEWS CLINICAL STATEMENTHip pain and knee pain. There is normal joint space at the hip without subchondral bonechanges. No fracture or lytic lesions are evident. A couple ofphleboliths are visible in the right pelvis. IMPRESSIONNormal right hip. Reported By: MYLES ANDRADE M.D. CBCD,SMEAR DIFFOrdered By: Gary barrosote Flask Carrier on 04-10-2008 Band form neutrophils/100 WBC (Bld) [...] Auto Ratio (RBC) 13.1 % Normal 11.6-14.6 [facility] Internal Medicine Work Phone: Erythrocyte distribution width Ratio (RBC) 13.1 % Normal 11.6-14.6 [facility] Internal Medicine Work Phone: Hematocrit Auto Volume Fraction (Bld) 36.5 % Abnormal 37-47 Comprehens [facility] Internal Medicine Work Phone: Hematocrit Volume Fraction (Bld) 36.5 % Abnormal 37-47 [facility] Internal Medicine Work Phone: Hemoglobin mass conc (Bld) 12.7 g/dL Normal 12.0-16.0 [facility] Internal Medicine Work Phone: Lymphocytes/100 WBC (Bld) 44 % Abnormal 19-41 [facility] Internal Medicine Work Phone: Lymphocytes/100 WBC Auto (Bld) 44 % Abnormal 19-41 [facility] Internal Medicine Work Phone: MCH Auto Entitic mass (RBC) 31.0 pg Normal 27.0-32.0 [facility] Work Phone: MCH Entitic mass (RBC) 31.0 pg Normal 27.0-32.0 [facility] Work Phone: MCHC Auto mass conc (RBC) 34.7 g/dL Normal 32-36 [facility] Work Phone: MCHC mass conc (RBC) 34.7 g/dL Normal 32-36 Comp rehensive Internal Medicine Work Phone: MCV Auto Entitic volume (RBC) 89.2 fL Normal 81-99 [facility] Work Phone: MCV Entitic volume (RBC) 89.2 fL Normal 81-99 [facility] Work Phone: Monocytes/100 WBC (Bld) 2 % Normal 0-10 [facility] Work Phone: Monocytes/100 WBC Auto (Bld) 2 % Normal 0-10 [facility] Work Phone: Platelets #/vol (Bld) 219 10*3/uL Normal 150-450 Co mprehensive Internal Medicine Work Phone: Platelets #/vol (Bld) SeeNote Normal Com prehensive Internal Medicine Work Phone: Comment on above: Result: ADEQUATE Platelets Auto #/vol (Bld) 219 10*3/uL Normal 150-450 [facility] Work Phone: RBC #/vol (Bld) 4.09 {M/mm3} Abnormal 4.2-5.4 Compreh ensive Internal Medicine Work Phone: RBC Auto #/vol (Bld) 4.09 {M/mm3} Abnormal 4.2-5.4 Co mprehensive Internal Medicine Work Phone: WBC #/vol (Bld) 3.4 10*3/uL Abnormal 4.4-11.0 Comprehe nsive Internal Medicine Work Phone: WBC Auto #/vol (Bld) 3.4 10*3/uL Abnormal 4.4-11.0 Com prehensive Internal Medicine Work Phone: CBCD,SMEAR DIFF SeeNote [facility] Work Phone: Comment on above: Result: ADEQUATE Result: NORM C+C CBCD,SMEAR DIFF 47 % Normal 47-70 [facility] Work Phone: CBCD,SMEAR DIFF 100 1 Normal [facility] [place] Work Phone: CBCD,SMEAR DIFF 2 % Normal 0-5 [facility] Work Phone: COMP METABOLICOrdered By: Fuentes stem Flask Carrier on 04-10-2008 Albumin mass conc 3.5 g/dL Normal 3.4-5.0 [facility] Internal Medicine Work Phone: Albumin/Globulin mass ratio 1.1 {RATIO} Normal 0.9-2.4 [facility] Internal Medicine Work Phone: ALP enzyme act/vol 68 U/L Normal 50-136 [facility] Work Phone: ALT enzyme act/vol 30 U/L Normal 30-65 [facility] Internal Medicine Work Phone: Anion gap 3 molar conc 2 mmol/L Abnormal 5-15 [facility] Internal Medicine Work Phone: Anion gap molar conc 2 mmol/L Abnormal 5-[address] [facility] Internal Medicine Work Phone: AST enzyme act/vol 22 U/L Normal 15-37 [facility] Internal Medicine Work Phone: Bilirubin mass conc 0.30 mg/dL Normal 0.00-1.00 Compr [facility] Internal Medicine Work Phone: Calcium mass conc 8.5 mg/dL Normal 8.5-10.1 [facility] Internal Medicine Work Phone: Chloride molar conc 106 mmol/L Normal 98-107 [facility] Internal Medicine Work Phone: CO2 molar conc 30.9 mmol/L Normal 21.0-32.0 [facility] Internal Medicine Work Phone: Creatinine mass conc [...] for patient's is the eGFRmultiplied by 1.212. [facility] Laboratory uses the abbreviated Modification of Diet [...] Disease W/O Kidney Disease>/= 90 Stage One [id number] - 89 Stage Two Suspect Decreased GFR30 [...] mg/dL TSHOrdered By: System Manage r on 04-10-2008 Thyrotropin Qn 2.48 {uIU/mL} Normal 0.34-4.82 Compreh ensive Internal Medicine Work Phone: VIT D,25 [id number] By: MeSixty stem Flask Carrier on 04-10-2008 VIT D,25 64821 43.1 ng/mL Normal 32.0-100.0 Comprehens mony Internal Medicine Work Phone: Comment on above: Recent studies consi brittany the lower limit of 32.0 ng/mL to mari threshold for optimal health.Servando MA. J Nutr. 2004;135(2):317-22.Performed At: [facility] [place], [place] [id number] DEXA BONE DENSITY STUDY (HP) Ordered By: Bottling Line Operator on 03-18-2008 DEXA BONE DENSITY STUDY (HP) See Note Normal [facility] Work Phone: Comment on above: Exam Number: [id number] BONE DENSITOMETRY HISTORYOsteopenia. TECHNIQUE Bone densitometry [...] DAVENPORT M.D. CHEST WITHOUT CONTRASTOrdere d By: Bottling Line Operator on 11-07-2007 CHEST WITHOUT CONTRAST See Note Normal [facility] Work Phone: Comment on above: Exam Number: [id number] CT CHEST -- NONCONTRAST CLINICAL STATEMENTPrevious [...] LT DIAG DIGITAL & CAD Ordered By: Bottling Line Operator on 07-18-2007 UNILAT LT DIAG DIGITAL & CAD See Note Normal [facility] Work Phone: Comment on above: Exam Number: [id number] DIAGNOSTIC DIGITAL MAMMOGRAM CLINICAL INFORMATIONAbnormal mammogram. [...] mammograms werealso examined with computer-aided detection software ([employer], [employer] Reported By: VALERIE GOTTLIEB M.D. Pap IG (Image Guided)Ordered By: Bottling Line Operator on 07-17-2007 Microscopic observation Other stain Nom [...] of containers..01 CYTYC Thin Prep VialPERFORMED BY: [employer] [address] [id number] Pathology report final diagnosis [facility]ative [facility] Normal [facility] Work Phone: Comment on above: NEGATIVE FOR INTRAEP ITHELIAL LESION AND MALIGNANCY.CELLULAR CHANGES ASSOCIATED WITH ATROPHY ARE PRESENT.Satisfactory for evaluation. Endocervical component may not bedistinguished in cases of atrophy.V76.2 ; Screening for malignant neoplasm of the cervixJuanita Addison, Staff Counselor (ASCP) Source.............C ervical;EndocervicalNo. of containers..01 CYTYC Thin Prep VialPERFORMED BY: [employer] [address] [id number] BILAT SCRN DIGITAL & CADOrde red By: Bottling Line Operator on 07-09-2007 BILAT SCRN DIGITAL & CAD See Note Normal [facility] Work Phone: Comment on above: Exam Number: [id number] BILATERAL SCREENING MAMMOGRAPHY HISTORYRoutine screening. COMPARISONComparison [...] The mammogramswere also examined with computer-aided detection software([employer] Reported By: VALERIE SAMS M.D. CHEST, PA AND LATERALOrdered By: Bottling Line Operator on 07-04-2007 CHEST, PA AND LATERAL See Note Normal Com prehensive Internal Medicine Work Phone: Comment on above: Exam Number: [id number] PA AND LATERAL CHEST CLINICAL INFORMATIONBacterial [...] By: VALERIE GOTTLIEB M.D. C-REACTIVE PROTOrdered By: Gary jeffries Flask Carrier on 05-29-2007 CRP mass conc 1.14 mg/L Normal 0.0-6.0 Comprehensi ve Internal Medicine Work Phone: Comment on above: Test performed using the Dimension C-Reactive ProteinExtended Range assay method. This assay meets the AHA/CDC 2003 recommendations fordetermining patients at high risk for cardiovasculardisease. Reference: High risk CRP >3.0 mg/L CBCD,SMEAR DIFFOrdered By: Gary jeffries Flask Carrier on 05-29-2007 Band form neutrophils/100 WBC (Bld) [...] width Ratio (RBC) 13.5 % Normal 11.6-14.6 [facility] Internal Medicine Work Phone: Hematocrit Auto Volume Fraction (Bld) 39.9 % Normal 37-[facility] Internal Medicine Work Phone: Hematocrit Volume Fraction (Bld) 39.9 % Normal 37-47 [facility] Internal Medicine Work Phone: Hemoglobin mass conc (Bld) 13.6 g/dL Normal 12.0-16.0 [facility] Work Phone: Lymphocytes/100 WBC (Bld) 36 % Normal 19-41 [facility] Work Phone: Lymphocytes/100 WBC Auto (Bld) 36 % Normal 19-41 [facility] Internal [...] Entitic volume (RBC) 89.5 fL Normal 81-99 [facility] Internal Medicine Work Phone: Monocytes/100 WBC (Bld) 4 % Normal 0-10 [facility] Work Phone: Monocytes/100 WBC Auto (Bld) 4 % Normal 0-10 [facility] Work Phone: Platelets #/vol (Bld) 221 10*3/uL Normal 150-450 [facility] Work Phone: Platelets #/vol (Bld) SeeNote Normal Com prehensive Internal Medicine Work Phone: Comment on above: Result: ADEQUATE Platelets Auto #/vol (Bld) 221 10*3/uL Normal 150-450 [facility] Work Phone: RBC #/vol (Bld) 4.45 {M/mm3} Normal 4.2-5.4 [facility] Work Phone: RBC Auto #/vol (Bld) 4.45 {M/mm3} Normal 4.2-5.4 [facility] Work Phone: WBC #/vol (Bld) 5.5 10*3/uL Normal 4.4-11.0 Comprehe nsive Internal Medicine Work Phone: WBC Auto #/vol (Bld) 5.5 10*3/uL Normal 4.4-11.0 [facility] Work Phone: CBCD,SMEAR DIFF 100 1 Normal Comprehen [facility] Internal Medicine Work Phone: CBCD,SMEAR DIFF 57 % Normal 47-70 Comprehen [facility] Internal Medicine Work Phone: CBCD,SMEAR DIFF 1 % Normal 0-5 [facility] Work Phone: CORONALS,SAG,MULTI,OBL,3-D R ECOrdered By: Bottling Line Operator on 05-29-2007 CORONALS,SAG,MULTI,OB L,3-D REC See Note Normal [facility] Work Phone: Comment on above: Exam Number: [id number] CT PULMONARY ANGIOGRAM AND CHEST CT [...] lobe. This is new since previous study ofApril 2005. Reported By: JERAMIE HERNANDEZ M.D. Result: ADEQUATE Result: NORM C+C Exam Number: [id number] CT PULMONARY ANGIOGRAM AND CHEST CT [...] lobe. This is new since previous study ofApril 2005. Reported By: JERAMIE HERNANDEZ M.D. D-DIMER QUANTOrdered By: Brianne tem Flask Carrier on 05-29-2007 D-DIMER QUANT <200 Normal Comprehensi ve Internal Medicine Work Phone: Comment on above: NORMAL D-Dimer level indicates no DVT or PE. ESROrdered By: System Manage r on 05-29-2007 ESR Velocity (Bld) 4 mm/h Normal 0-30 Compre hensive Internal Medicine Work Phone: TROPONIN-IOrdered By: Bottling Line Operator on 05-29-2007 Troponin I.cardiac mass conc ng/mL Normal [facility] Work Phone: Comment on above: TROPONIN-I EXPECTED VALUES < 0.50 NEGATIVE 0.50 - 1.49 INDETERMINANT > OR = 1.50 SUGGEST RI CBCD,SMEAR DIFFOrdered By: Gary ystem Flask Carrier on 11-03-2006 Band form neutrophils/100 WBC (Bld) [...] conc (RBC) 34.2 g/dL Normal 32-36 Comp rehensive Internal Medicine Work Phone: MCV Auto Entitic volume (RBC) 89.2 fL Normal 81-99 [facility] Work Phone: MCV Entitic volume (RBC) 89.2 fL Normal 81-99 [facility] Internal Medicine Work Phone: Platelets #/vol (Bld) SeeNote Normal Com prehensive Internal Medicine Work Phone: Comment on above: Result: ADEQUATE Platelets #/vol (Bld) 266 10*3/uL Normal 150-450 [facility] Work Phone: Platelets Auto #/vol (Bld) 266 10*3/uL Normal 150-450 [facility] Internal Medicine Work Phone: RBC #/vol (Bld) 4.00 {M/mm3} Abnormal 4.2-5.4 Compreh ensive Internal Medicine Work Phone: RBC Auto #/vol (Bld) 4.00 {M/mm3} Abnormal 4.2-5.4 [facility] Work Phone: WBC #/vol (Bld) 3.3 10*3/uL Abnormal 4.4-11.0 Comprehe nsive Internal Medicine Work Phone: WBC Auto #/vol (Bld) 3.3 10*3/uL Abnormal 4.4-11.0 [facility] prehensive Internal Medicine Work Phone: CBCD,SMEAR DIFF 100 1 Normal Comprehen sive Internal Medicine Work Phone: CBCD,SMEAR DIFF 11 % Abnormal 0-10 [facility] Internal Medicine Work Phone: CBCD,SMEAR DIFF SeeNote Normal [facility] Internal Medicine Work Phone: Comment on above: Result: ADEQUATE CBCD,SMEAR DIFF 1+ Normal [facility] Work Phone: CBCD,SMEAR DIFF N CHROM Normal [facility] Work Phone: CBCD,SMEAR DIFF 51 % Normal 47-70 [facility] Internal Medicine Work Phone: CBCD,SMEAR DIFF 2 % Normal 0-5 [facility] Work Phone: COMP METABOLICOrdered By: Fuentes stem Flask Carrier on 11-03-2006 Albumin mass conc 3.6 g/dL Normal 3.4-5.0 [facility] Internal Medicine Work Phone: Albumin/Globulin mass ratio 1.1 {RATIO} Normal 0.9-2.4 [facility] Internal Medicine Work Phone: ALP enzyme act/vol 59 U/L Normal 50-136 [facility] Internal Medicine Work Phone: ALT enzyme act/vol 28 [iU]/L Abnormal 30-65 [facility] Internal Medicine Work Phone: Anion gap 3 molar conc 7 mmol/L Normal 5-15 [facility] Internal Medicine Work Phone: Anion gap molar conc 7 mmol/L Normal 5-[address] [facility] Internal Medicine Work Phone: AST enzyme act/vol 21 U/L Normal 15-37 [facility] Internal Medicine Work Phone: Bilirubin mass conc 0.72 mg/dL Normal 0.00-1.00 [facility] Internal Medicine Work Phone: Calcium mass conc 8.6 mg/dL Normal 8.5-10.1 [facility] Internal Medicine Work Phone: Chloride molar conc 105 mmol/L Normal 98-107 Compr [facility] Internal Medicine Work Phone: CO2 molar conc [...] [facility] Work Phone: MGOrdered By: Bottling Line Operator on 11-03-2006 Magnesium mass conc 2.1 mg/dL Normal 1.5-2.2 Compr ehensive Internal Medicine Work Phone: MG 2.1 mg/dL Normal 1.5-2.2 [facility] Work Phone: TSHOrdered By: System Manage r on 11-03-2006 Thyrotropin Qn 1.98 {uIU/mL} Normal 0.34-4.82 Compreh ensive Internal Medicine Work Phone: CULTURE, URINEOrdered By: Fuentes stem Flask Carrier on 10-31-2006 Bacteria identified Cx Nom (U) [...] BILAT SCRN DIGITAL & C ADOrdered By: Bottling Line Operator on 06-27-2006 MAMM, BILAT SCRN DIGITAL & CAD See Note Normal [facility] Work Phone: Comment on above: Exam Number: [id number] BILATERAL DIGITAL SCREENING MAMMOGRAM CLINICAL INFORMATIONScreening. [...] Time Vital Sign Value Performing Clinician Facility 10-11-2024 10:27-0400 Body height 160.[address] Gia Grover DO Work Phone: [facility] 06-04-2024 13:29-0400 Body height 160.[address] Gia Grover DO Work Phone: [facility] 06-04-2024 13:29-0400 Body mass index (BMI) [Ratio] 22.6 kg/m2 Dr. Gia Grover DO Work Phone: [facility] 06-04-2024 13:29-0400 Body weight 58.[address] Gia Grover DO Work Phone: [facility] 06-04-2024 13:29-0400 Diastolic blood pressure 64 mm[Hg] Dr. Gia Grover DO Work Phone: [facility] 06-04-2024 13:29-0400 Heart rate 78 /min Dr. Gia Grover DO Work Phone: [facility] 06-04-2024 13:29-0400 Respiratory rate 14 /min Dr. Gia Grover DO Work Phone: [facility] 06-04-2024 13:29-0400 Systolic blood pressure 105 mm[Hg] Dr. Gia Grover DO Work Phone: [facility] 03-17-2023 10:12-0500 Body height 160.[address] Nielsen Fast Work Phone: [facility] 03-17-2023 10:12-0500 Body mass index (BMI) [Ratio] 23.1 kg/m2 Dr. Gia Grover Work Phone: [facility] 03-17-2023 10:12-0500 Body weight 59.[address] Nielsen Fast Work Phone: [facility] 03-17-2023 10:12-0500 Diastolic blood pressure 62 mm[Hg] Dr. Nielsen Fast Work Phone: [facility] 03-17-2023 10:12-0500 Heart rate 70 /min Dr. Nielsen Fast Work Phone: [facility] 03-17-2023 10:12-0500 Respiratory rate 14 /min Dr. Nielsen Fast Work Phone: [facility] 03-17-2023 10:12-0500 Systolic blood pressure 106 mm[Hg] Dr. Gia Fast Work Phone: [facility] 10-27-2022 14:29-0400 Body height 160.[address] Nielsen Fast Work Phone: [facility] 09-12-2022 08:33-0400 Body height 161.93 cm Gia A Fast DO Work Phone: [facility]; [facility] Work Phone: 09-12-2022 08:33-0400 Body mass index (BMI) [Ratio] 22.58 kg/m2 Gia A Fast DO Work Phone: [facility]; [facility] Work Phone: 09-12-2022 08:33-0400 Body surface area Derived from formula 1.63 m2 Gia A Fast DO Work Phone: [facility] Work Phone: 09-12-2022 08:33-0400 Body temperature 97.1 [degF] Gia A Fast DO Work Phone: [facility]; [facility] Work Phone: 09-12-2022 08:33-0400 Body weight 59.19 kg Gia A Fast DO Work Phone: [facility]; [facility] Work Phone: 09-12-2022 08:33-0400 Diastolic blood pressure 72 mm[Hg] Gia A Fast DO Work Phone: [facility]; [facility] Work Phone: 09-12-2022 08:33-0400 Heart rate 68 /min Gia A Fast DO Work Phone: [facility]; [facility] Work Phone: 09-12-2022 08:33-0400 Respiratory rate 16 /min Gia A Fast DO Work Phone: [facility]; [facility] Work Phone: 09-12-2022 08:33-0400 Systolic blood pressure 135 mm[Hg] Gia Grover DO Work Phone: [facility]; [facility] Work Phone: 09-05-2022 14:11-0400 Body height 160.[address] Gia Grover Work Phone: [facility] 09-05-2022 14:11-0400 Body mass index (BMI) [Ratio] 23.5 kg/m2 Dr. Gia Grover Work Phone: [facility] 09-05-2022 14:11-0400 Body weight 60.[address] Gia Grover Work Phone: [facility] 09-05-2022 14:11-0400 Diastolic blood pressure 71 mm[Hg] Dr. Gia Grover Work Phone: [facility] 09-05-2022 14:11-0400 Heart rate 65 /min Dr. Gia Grover Work Phone: [facility] 09-05-2022 14:11-0400 Respiratory rate 16 /min Dr. Nielsen Fast Work Phone: [facility] 09-05-2022 14:11-0400 Systolic blood pressure 132 mm[Hg] Dr. Gia Grover Work Phone: [facility] 06-03-2022 09:16-0400 Body height 161.93 cm Reina Estrada CMA [facility]; [facility] Work Phone: 06-03-2022 09:16-0400 Body mass index (BMI) [Ratio] 22.9 kg/m2 Reina Estrada [facility]; [facility] Work Phone: 06-03-2022 09:16-0400 Body surface area Derived from formula 1.64 m2 Reina Estrada [facility]; [facility] Work Phone: 06-03-2022 09:16-0400 Body temperature 97.7 [degF] Reina Estrada [facility]; [facility] Work Phone: 06-03-2022 09:16-0400 Body weight 60.05 kg Reina Estrada [facility]; [facility] Work Phone: 06-03-2022 09:16-0400 Diastolic blood pressure 62 mm[Hg] Reina Estrada [facility]; [facility] Work Phone: 06-03-2022 09:16-0400 Heart rate 71 /min Reina Estrada [facility]; [facility] Work Phone: 06-03-2022 09:16-0400 Respiratory rate 16 /min Reina Estrada [facility]; [facility] Work Phone: 06-03-2022 09:16-0400 Systolic blood pressure 120 mm[Hg] Reina Estrada [facility]; [facility] Work Phone: 01-11-2022 08:52-0500 Body height 161.93 cm [facility] Work Phone: 01-11-2022 08:52-0500 Body mass index (BMI) [Ratio] 22.21 kg/m2 [facility]; [facility] Work Phone: 01-11-2022 08:52-0500 Body surface area Derived from formula 1.62 m2 [facility]; [facility] Work Phone: 01-11-2022 08:52-0500 Body temperature 97.8 [degF] [facility]; [facility] Work Phone: 01-11-2022 08:52-0500 Body weight 58.23 kg [facility]; [facility] Work Phone: 01-11-2022 08:52-0500 Diastolic blood pressure 68 mm[Hg] [facility]; [facility] Work Phone: 01-11-2022 08:52-0500 Heart rate 67 /min Reina Estrada [facility]; [facility] Work Phone: 01-11-2022 08:52-0500 Respiratory rate 16 /min Reina Estrada [facility]; [facility] Work Phone: 01-11-2022 08:52-0500 Systolic blood pressure 122 mm[Hg] Reina Estrada [facility]; [facility] Work Phone: 12-21-2021 10:36-0400 Body height 162.6 cm Ness Kalka PA-C Work Phone: [facility] 12-21-2021 10:36-0400 Body weight 59.06 kg Ness Kalka PA-C Work Phone: [facility] 12-21-2021 10:36-0400 Diastolic blood pressure 70 mm[Hg] Ness Kalka PA-C Work Phone: [facility] 12-21-2021 10:36-0400 Heart rate 54 /min Ness Kalka PA-C Work Phone: [facility] 12-21-2021 10:36-0400 Systolic blood pressure 132 mm[Hg] Ness Kalka PA-C Work Phone: [facility] 09-10-2021 09:41-0400 Body height 161.93 cm Reina Estrada [facility]; [facility] Work Phone: 09-10-2021 09:41-0400 Body mass index (BMI) [Ratio] 22.17 kg/m2 Reina Estrada [facility]; [facility] Work Phone: 09-10-2021 09:41-0400 Body surface area Derived from formula 1.61 m2 Reina Diamondprudencio [facility]; [facility] Work Phone: 09-10-2021 09:41-0400 Body temperature 96.8 [degF] Reina Estrada [facility]; [facility] Work Phone: 09-10-2021 09:41-0400 Body weight 58.12 kg Reina Estrada [facility]; [facility] Work Phone: 09-10-2021 09:41-0400 Diastolic blood pressure 68 mm[Hg] [facility]; [facility] Work Phone: 09-10-2021 09:41-0400 Heart rate 68 /min [facility]; [facility] Work Phone: 09-10-2021 09:41-0400 Respiratory rate 16 /min [facility]; [facility] Work Phone: 09-10-2021 09:41-0400 Systolic blood pressure 108 mm[Hg] Reina Estrada [facility]; [facility] Work Phone: 05-26-2021 09:51-0400 Body height 161.93 cm [facility]; [facility] Work Phone: 05-26-2021 09:51-0400 Body mass index (BMI) [Ratio] 21.99 kg/m2 [facility]; [facility] Work Phone: 05-26-2021 09:51-0400 Body surface area Derived from formula 1.61 m2 [facility]; [facility] Work Phone: 05-26-2021 09:51-0400 Body temperature 97.1 [degF] [facility]; [facility] Work Phone: 05-26-2021 09:51-0400 Body weight 57.66 kg [facility]; [facility] Work Phone: 05-26-2021 09:51-0400 Diastolic blood pressure 64 mm[Hg] Reinajayson Estrada [facility]; [facility] Work Phone: 05-26-2021 09:51-0400 Heart rate 77 /min Reina Estrada [facility]; [facility] Work Phone: 05-26-2021 09:51-0400 Respiratory rate 16 /min Reina Estrada [facility]; [facility] Work Phone: 05-26-2021 09:51-0400 Systolic blood pressure 118 mm[Hg] Reina Estrada [facility]; [facility] Work Phone: 01-15-2021 10:35-0500 Body height 161.93 cm Reina Estrada [facility]; [facility] Work Phone: 01-15-2021 10:35-0500 Body mass index (BMI) [Ratio] 20.61 kg/m2 Reina Estrada [facility]; [facility] Work Phone: 01-15-2021 10:35-0500 Body surface area Derived from formula 1.57 m2 [facility]; [facility] Work Phone: 01-15-2021 10:35-0500 Body temperature 97 [degF] Reina Estrada [facility]; [facility] Work Phone: 01-15-2021 10:35-0500 Body weight 54.04 kg [facility]; [facility] Work Phone: 01-15-2021 10:35-0500 Diastolic blood pressure 72 mm[Hg] [facility]; [facility] Work Phone: 01-15-2021 10:35-0500 Heart rate 68 /min Reina Estrada [facility]; [facility] Work Phone: 01-15-2021 10:35-0500 Respiratory rate 16 /min Reina Estrada [facility]; [facility] Work Phone: 01-15-2021 10:35-0500 Systolic blood pressure 118 mm[Hg] Reina Estrada [facility]; [facility] Work Phone: 11-02-2020 10:17-0400 Body height 161.93 cm Reina Estrada [facility]; [facility] Work Phone: 11-02-2020 10:17-0400 Body mass index (BMI) [Ratio] 21.13 kg/m2 Reina Estrada [facility]; [facility] Work Phone: 11-02-2020 10:17-0400 Body surface area Derived from formula 1.58 m2 [facility]; [facility] Work Phone: 11-02-2020 10:17-0400 Body temperature 96.8 [degF] Reina Estrada [facility]; [facility] Work Phone: 11-02-2020 10:17-0400 Body weight 55.4 kg Reina Estrada [facility]; [facility] Work Phone: 11-02-2020 10:17-0400 Diastolic blood pressure 62 mm[Hg] Reina Estrada [facility]; [facility] Work Phone: 11-02-2020 10:17-0400 Heart rate 69 /min Reina Estrada [facility]; [facility] Work Phone: 11-02-2020 10:17-0400 Respiratory rate 16 /min Reina Estrada [facility]; [facility] Work Phone: 11-02-2020 10:17-0400 Systolic blood pressure 104 mm[Hg] Reina Estrada [facility]; [facility] Work Phone: 07-28-2020 08:34-0400 Body height 161.93 cm [facility]; [facility] Work Phone: 07-28-2020 08:34-0400 Body mass index (BMI) [Ratio] 20.78 kg/m2 Reina Estrada [facility]; [facility] Work Phone: 07-28-2020 08:34-0400 Body surface area Derived from formula 1.57 m2 Reina Estrada [facility]; [facility] Work Phone: 07-28-2020 08:34-0400 Body temperature 97.1 [degF] Reina Estrada [facility]; [facility] Work Phone: Comment on above: Method: Thermal Scan 07-28-2020 08:34-0400 Body weight 54.49 kg Reina Estrada [facility]; [facility] Work Phone: 07-28-2020 08:34-0400 Diastolic blood pressure 64 mm[Hg] Reina Estrada [facility]; [facility] Work Phone: Comment on above: Patient Position: Sitting; Cuff Location : Left Arm; Cuff Size: Standard 07-28-2020 08:34-0400 Heart rate 73 /min Reina Estrada [facility]; [facility] Work Phone: Comment on above: Pattern: Regular 07-28-2020 08:34-0400 Respiratory rate 16 /min Reina Estrada [facility]; [facility] Work Phone: Comment on above: Pattern: Unlabored 07-28-2020 08:34-0400 Systolic blood pressure 106 mm[Hg] Reina Estrada [facility]; [facility] Work Phone: Comment on above: Patient Position: Sitting; Cuff Location : Left Arm; Cuff Size: Standard 04-29-2020 09:50-0500 BMI (Body Mass Index) 20.78 kg/m2 Reina Estrada [facility]; [facility] Work Phone: 04-29-2020 09:50-0500 Body Temperature 97.1 [degF] Reina Estrada [facility]; [facility] Work Phone: Comment on above: Method: Thermal Scan 04-29-2020 09:50-0500 Body weight 54.49 kg Reina Estrada [facility]; [facility] Work Phone: 04-29-2020 09:50-0500 BP Diastolic 72 mm[Hg] [facility]; [facility] Work Phone: Comment on above: Patient Position: Sitting; Cuff Location : Left Arm; Cuff Size: Standard 04-29-2020 09:50-0500 BP Systolic 112 mm[Hg] [facility]; [facility] Work Phone: Comment on above: Patient Position: Sitting; Cuff Location : Left Arm; Cuff Size: Standard 04-29-2020 09:50-0500 BSA (Body Surface Area) 1.57 m2 [facility]; [facility] Work Phone: 04-29-2020 09:50-0500 Height 161.93 cm [facility]; [facility] Work Phone: 04-29-2020 09:50-0500 Pulse (Heart Rate) 68 /min [facility]; [facility] Work Phone: Comment on above: Pattern: Regular 04-29-2020 09:50-0500 Respiratory Rate 16 /min [facility]; [facility] Work Phone: Comment on above: Pattern: Unlabored 03-23-2020 11:37-0500 BMI (Body Mass Index) 21.13 kg/m2 Teresita Garza STAFF [employer] OFFICER [facility]; [facility] Work Phone: 03-23-2020 11:37-0500 Body Temperature 97.1 [degF] Teresita Garza LPN [facility]; [facility] Work Phone: 03-23-2020 11:37-0500 Body weight 55.4 kg Teresita Slarb STAFF [employer] OFFICER [facility]; [facility] Work Phone: 03-23-2020 11:37-0500 BP Diastolic 80 mm[Hg] Teresita Slarb STAFF [employer] OFFICER [facility]; [facility] Work Phone: Comment on above: Patient Position: Sitting; Cuff Location : Left Arm; Cuff Size: Standard 03-23-2020 11:37-0500 BP Systolic 122 mm[Hg] Teresita Slarb STAFF [employer] OFFICER [facility]; [facility] Work Phone: Comment on above: Patient Position: Sitting; Cuff Location : Left Arm; Cuff Size: Standard 03-23-2020 11:37-0500 BSA (Body Surface Area) 1.58 m2 Teresita Slarb STAFF [employer] OFFICER [facility]; [facility] Work Phone: 03-23-2020 11:37-0500 Height 161.93 cm Teresita Slarb STAFF [employer] OFFICER [facility]; [facility] Work Phone: 03-23-2020 11:37-0500 Pulse (Heart Rate) 91 /min Teresita Slarb STAFF [employer] OFFICER [facility]; [facility] Work Phone: Comment on above: Pattern: Regular 03-23-2020 11:37-0500 Pulse Oximetry 98 % Gia Reilly [facility]; [facility] Work Phone: Comment on above: Room air 03-23-2020 11:37-0500 Respiratory Rate 15 /min Teresita Alisharb STAFF [employer] OFFICER [facility]; [facility] Work Phone: Comment on above: Pattern: Unlabored 03-23-2020 11:37-0500 SaO2% (BldA) [Mass fraction] 98 % Teresita Slarb STAFF [employer] OFFICER [facility]; [facility] Work Phone: Comment on above: Room air 03-09-2020 16:56-0500 BMI (Body Mass Index) 21.8 kg/m2 Reina Estrada [facility]; [facility] Work Phone: 03-09-2020 16:56-0500 Body Temperature 97.1 [degF] Reina Estrada [facility]; [facility] Work Phone: Comment on above: Method: Thermal Scan 03-09-2020 16:56-0500 Body weight 57.15 kg Reina Estrada [facility]; [facility] Work Phone: 03-09-2020 16:56-0500 BP Diastolic 62 mm[Hg] Reina Estrada [facility]; [facility] Work Phone: Comment on above: Patient Position: Sitting; Cuff Location : Left Arm; Cuff Size: Standard 03-09-2020 16:56-0500 BP Systolic 112 mm[Hg] Reina Estrada [facility]; [facility] Work Phone: Comment on above: Patient Position: Sitting; Cuff Location : Left Arm; Cuff Size: Standard 03-09-2020 16:56-0500 BSA (Body Surface Area) 1.6 m2 Reina Estrada [facility]; [facility] Work Phone: 03-09-2020 16:56-0500 Height 161.93 cm Reina Estrada [facility]; [facility] Work Phone: 03-09-2020 16:56-0500 Pulse (Heart Rate) 66 /min Reina Estrada [facility]; [facility] Work Phone: Comment on above: Pattern: Regular 03-09-2020 16:56-0500 Pulse Oximetry 98 % Gia Grover [facility]; [facility] Work Phone: Comment on above: Room air 03-09-2020 16:56-0500 Respiratory Rate 16 /min Reina Estrada [facility]; [facility] Work Phone: Comment on above: Pattern: Unlabored 03-09-2020 16:56-0500 SaO2% (BldA) [Mass fraction] 98 % Reina Estrada [facility]; [facility] Work Phone: Comment on above: Room air 01-14-2020 09:03-0500 BMI (Body Mass Index) 21.8 kg/m2 Reina Estrada [facility] Internal Medicine Work Phone: 01-14-2020 09:03-0500 Body Temperature 97.1 [degF] Reina Estrada [facility] Work Phone: Comment on above: Method: Thermal Scan 01-14-2020 09:03-0500 Body weight 57.15 kg Reina Estrada [facility] Work Phone: 01-14-2020 09:03-0500 BP Diastolic 62 mm[Hg] Reina Estrada [facility] Work Phone: Comment on above: Patient Position: Sitting; Cuff Location : Left Arm; Cuff Size: Standard 01-14-2020 09:03-0500 BP Systolic 102 mm[Hg] Reina Estrada [facility] Work Phone: Comment on above: Patient Position: Sitting; Cuff Location : Left Arm; Cuff Size: Standard 01-14-2020 09:03-0500 BSA (Body Surface Area) 1.6 m2 Reina Estrada [facility] Work Phone: 01-14-2020 09:03-0500 Height 161.93 cm Reina Estrada [facility] Work Phone: 01-14-2020 09:03-0500 Pulse (Heart Rate) 60 /min Reina Estrada [facility] Work Phone: Comment on above: Pattern: Regular 01-14-2020 09:03-0500 Respiratory Rate 16 /min Reina Estrada [facility] Work Phone: Comment on above: Pattern: Unlabored 09-18-2019 11:05-0400 BMI (Body Mass Index) 22.32 kg/m2 Reina Estrada [facility] Work Phone: 09-18-2019 11:05-0400 Body Temperature 97.1 [degF] Reina Estrada [facility] Work Phone: Comment on above: Method: Thermal Scan 09-18-2019 11:05-0400 Body weight 58.51 kg Reina Estrada [facility] Work Phone: 09-18-2019 11:05-0400 BP Diastolic 66 mm[Hg] Reina Estrada [facility] Work Phone: Comment on above: Patient Position: Sitting; Cuff Location : Left Arm; Cuff Size: Standard 09-18-2019 11:05-0400 BP Systolic 120 mm[Hg] Reina Estrada [facility] Work Phone: Comment on above: Patient Position: Sitting; Cuff Location : Left Arm; Cuff Size: Standard 09-18-2019 11:05-0400 BSA (Body Surface Area) 1.62 m2 Reina Estrada [facility] Medicine Work Phone: 09-18-2019 11:05-0400 Height 161.93 cm Reina Estrada [facility] Work Phone: 09-18-2019 11:05-0400 Pulse (Heart Rate) 66 /min Reina Estrada [facility] Medicine Work Phone: Comment on above: Pattern: Regular 09-18-2019 11:05-0400 Respiratory Rate 16 /min Reina Estrada [facility] Work Phone: Comment on above: Pattern: Unlabored 03-19-2019 13:32-0500 BMI (Body Mass Index) 21.8 kg/m2 Reina Estrada [facility] Medicine Work Phone: 03-19-2019 13:32-0500 Body Temperature 96.5 [degF] Reina Estrada [facility] Work Phone: Comment on above: Method: Temporal 03-19-2019 13:32-0500 Body weight 57.15 kg Reina Estrada [facility] Medicine Work Phone: 03-19-2019 13:32-0500 BP Diastolic 70 mm[Hg] Reina Estrada [facility] Work Phone: Comment on above: Patient Position: Sitting; Cuff Location : Left Arm; Cuff Size: Standard 03-19-2019 13:32-0500 BP Systolic 115 mm[Hg] Reina Estrada [facility] Work Phone: Comment on above: Patient Position: Sitting; Cuff Location : Left Arm; Cuff Size: Standard 03-19-2019 13:32-0500 BSA (Body Surface Area) 1.6 m2 [facility] [facility] Work Phone: 03-19-2019 13:32-0500 Height 161.93 [facility]: 03-19-2019 13:32-0500 Pulse (Heart Rate) 84 /min [facility] Work Phone: Comment on above: Pattern: Regular 03-19-2019 13:32-0500 Respiratory Rate 16 /min [facility] Work Phone: Comment on above: Pattern: Unlabored 01-30-2019 09:03-0500 BMI (Body Mass Index) 21.8 kg/m2 Teresita Slarb [facility] Internal Medicine Work Phone: 01-30-2019 09:03-0500 Body Temperature 97.9 [degF] Teresita Slarb STAFF [employer] OFFICER [facility] Internal Medicine Work Phone: 01-30-2019 09:03-0500 Body weight 57.15 kg Teresita Slarb STAFF [employer] OFFICER [facility] Internal Medicine Work Phone: 01-30-2019 09:03-0500 BP Diastolic 64 mm[Hg] Teresita Slarb [facility] Internal Medicine Work Phone: Comment on above: Patient Position: Sitting; Cuff Location : Left Arm; Cuff Size: Standard 01-30-2019 09:03-0500 BP Systolic 118 mm[Hg] Teresita Slarb STAFF [employer] OFFICER [facility] Internal Medicine Work Phone: Comment on above: Patient Position: Sitting; Cuff Location : Left Arm; Cuff Size: Standard 01-30-2019 09:03-0500 BSA (Body Surface Area) 1.6 m2 Teresita Garza LPN [facility] Work Phone: 01-30-2019 09:03-0500 Height 161.93 cm Teresita Garza LPN [facility] Work Phone: 01-30-2019 09:03-0500 Pulse (Heart Rate) 64 /min Teresita Garza LPN [facility] Work Phone: Comment on above: Pattern: Regular 01-30-2019 09:03-0500 Pulse Oximetry 97 % Gia Fast [facility] Work Phone: Comment on above: Room air 01-30-2019 09:03-0500 Respiratory Rate 16 /min Teresita Garza LPN [facility] Work Phone: Comment on above: Pattern: Unlabored 01-30-2019 09:03-0500 SaO2% (BldA) [Mass fraction] 97 % Teresita Garza LPN [facility]; [facility] Work Phone: Comment on above: Room air 10-29-2018 10:130400 BMI (Body Mass Index) 21.45 kg/m2 Gia A Fast DO Work Phone: [facility] Work Phone: 10-29-2018 10:13-0400 Body Temperature 97.4 [degF] Gia A Fast DO Work Phone: [facility] Work Phone: Comment on above: Method: Temporal 10-29-2018 10:130400 Body weight 56.25 kg Gia A Fast DO Work Phone: [facility] Work Phone: 10-29-2018 10:13-0400 BP Diastolic 64 mm[Hg] Gia A Fast DO Work Phone: [facility] Work Phone: Comment on above: Patient Position: Sitting; Cuff Location : Left Arm; Cuff Size: Standard 10-29-2018 10:13-0400 BP Systolic 100 mm[Hg] Gia A Fast DO Work Phone: [facility] Work Phone: Comment on above: Patient Position: Sitting; Cuff Location : Left Arm; Cuff Size: Standard 10-29-2018 10:13-0400 BSA (Body Surface Area) 1.59 m2 Gia A Fast DO Work Phone: [facility] Work Phone: 10-29-2018 10:13-0400 Height 161.93 cm Gia A Fast DO Work Phone: [facility] Work Phone: 10-29-2018 10:13-0400 Pulse (Heart Rate) 78 /min Gia A Fast DO Work Phone: [facility] Work Phone: Comment on above: Pattern: Regular 10-29-2018 10:13-0400 Pulse Oximetry 98 % Gia Fast [facility] Work Phone: Comment on above: Room air 10-29-2018 10:13-0400 Respiratory Rate 16 /min Gia A Fast DO Work Phone: [facility] Work Phone: Comment on above: Pattern: Unlabored 10-29-2018 10:13-0400 SaO2% (BldA) [Mass fraction] 98 % Gia A Fast DO Work Phone: [facility]; [facility] Work Phone: Comment on above: Room air 07-20-2018 13:29-0400 BMI (Body Mass Index) 21.71 kg/m2 Reina Estrada [facility] Work Phone: 07-20-2018 13:29-0400 Body Temperature 96.1 [degF] Reina Estrada [facility] Work Phone: Comment on above: Method: Temporal 07-20-2018 13:29-0400 Body weight 56.93 kg Reina Estrada [facility] Work Phone: 07-20-2018 13:29-0400 BP Diastolic 70 mm[Hg] Reina Estrada [facility] Internal Medicine Work Phone: Comment on above: Patient Position: Sitting; Cuff Location : Left Arm; Cuff Size: Standard 07-20-2018 13:29-0400 BP Systolic 122 mm[Hg] Reina Estrada [facility] Internal Medicine Work Phone: Comment on above: Patient Position: Sitting; Cuff Location : Left Arm; Cuff Size: Standard 07-20-2018 13:29-0400 BSA (Body Surface Area) 1.6 m2 Reina Estrada [facility] Internal Medicine Work Phone: 07-20-2018 13:29-0400 Height 161.93 cm Reina Estrada [facility] Internal Medicine Work Phone: 07-20-2018 13:29-0400 Pulse (Heart Rate) 62 /min Reina Estrada [facility] Internal Medicine Work Phone: Comment on above: Pattern: Regular 07-20-2018 13:29-0400 Respiratory Rate 16 /min Reina Estrada [facility] Internal Medicine Work Phone: Comment on above: Pattern: Unlabored 07-20-2018 13:29-0400 Weight 56.93 kg Gia Grover [facility] Internal Medicine Work Phone: 07-09-2018 09:34-0400 BMI (Body Mass Index) 21.71 kg/m2 Reina Estrada [facility] Internal Medicine Work Phone: 07-09-2018 09:34-0400 Body Temperature 96.9 [degF] Reina Estrada [facility] Internal Medicine Work Phone: Comment on above: Method: Temporal 07-09-2018 09:34-0400 Body weight 56.93 kg Reina Estrada [facility] Internal Medicine Work Phone: 07-09-2018 09:34-0400 BP Diastolic 72 mm[Hg] Reina Estrada [facility] Internal Medicine Work Phone: Comment on above: Patient Position: Sitting; Cuff Location : Left Arm; Cuff Size: Standard 07-09-2018 09:34-0400 BP Systolic 122 mm[Hg] Reina Estrada [facility] Internal Medicine Work Phone: Comment on above: Patient Position: Sitting; Cuff Location : Left Arm; Cuff Size: Standard 07-09-2018 09:34-0400 BSA (Body Surface Area) 1.6 m2 Reina Estrada CMA [facility] Internal Medicine Work Phone: 07-09-2018 09:34-0400 Height 161.93 cm Reina Estrada [facility] Internal Medicine Work Phone: 07-09-2018 09:34-0400 Pulse (Heart Rate) 67 /min Reina Estrada [facility] Internal Medicine Work Phone: Comment on above: Pattern: Regular 07-09-2018 09:34-0400 Respiratory Rate 16 /min Reina Estrada [facility] Internal Medicine Work Phone: Comment on above: Pattern: Unlabored 07-09-2018 09:34-0400 Weight 56.93 kg Gia Grover [facility] Internal Medicine Work Phone: 06-29-2018 12:58-0400 BMI (Body Mass Index) 21.71 kg/m2 Reina Estrada [facility] Internal Medicine Work Phone: 06-29-2018 12:58-0400 Body Temperature 97.2 [degF] Reina Estrada [facility] Internal Medicine Work Phone: Comment on above: Method: Temporal 06-29-2018 12:58-0400 Body weight 56.93 kg Reina Estrada [facility] Internal Medicine Work Phone: 06-29-2018 12:58-0400 BP Diastolic 70 mm[Hg] Reina Estrada [facility] Internal Medicine Work Phone: Comment on above: Patient Position: Sitting; Cuff Location : Left Arm; Cuff Size: Standard 06-29-2018 12:58-0400 BP Systolic 104 mm[Hg] Reina Estrada [facility] Internal Medicine Work Phone: Comment on above: Patient Position: Sitting; Cuff Location : Left Arm; Cuff Size: Standard 06-29-2018 12:58-0400 BSA (Body Surface Area) 1.6 m2 Reina Estrada CMA [facility] Internal Medicine Work Phone: 06-29-2018 12:58-0400 Height 161.93 cm Reina Estrada [facility] Internal Medicine Work Phone: 06-29-2018 12:58-0400 Pulse (Heart Rate) 67 /min Reina Estrada [facility] Internal Medicine Work Phone: Comment on above: Pattern: Regular 06-29-2018 12:58-0400 Respiratory Rate 16 /min Reina Estrada [facility] Internal Medicine Work Phone: Comment on above: Pattern: Unlabored 06-29-2018 12:58-0400 Weight 56.93 kg Gia Grover [facility] Internal Medicine Work Phone: 06-01-2018 10:36-0400 BMI (Body Mass Index) 21.71 kg/m2 Reina Estrada [facility] Internal Medicine Work Phone: 06-01-2018 10:36-0400 Body Temperature 98.3 [degF] Reina Estrada [facility] Internal Medicine Work Phone: Comment on above: Method: Temporal 06-01-2018 10:36-0400 Body weight 56.93 kg Reina Estrada [facility] Internal Medicine Work Phone: 06-01-2018 10:36-0400 BP Diastolic 68 mm[Hg] Reina Estrada [facility] Internal Medicine Work Phone: Comment on above: Patient Position: Sitting; Cuff Location : Left Arm; Cuff Size: Standard 06-01-2018 10:36-0400 BP Systolic 115 mm[Hg] Reina Estrada [facility] Internal Medicine Work Phone: Comment on above: Patient Position: Sitting; Cuff Location : Left Arm; Cuff Size: Standard 06-01-2018 10:36-0400 BSA (Body Surface Area) 1.6 m2 Reina Estrada [facility] Internal Medicine Work Phone: 06-01-2018 10:36-0400 Height 161.93 cm Reina Estrada [facility] Internal Medicine Work Phone: 06-01-2018 10:36-0400 Pulse (Heart Rate) 68 /min Reina Estrada CMA [facility] Internal Medicine Work Phone: Comment on above: Pattern: Regular 06-01-2018 10:36-0400 Respiratory Rate 16 /min Reina Estrada CMA [facility] Internal Medicine Work Phone: Comment on above: Pattern: Unlabored 06-01-2018 10:36-0400 Weight 56.93 kg Gia Grover [facility] Internal Medicine Work Phone: 01-31-2018 11:02-0500 BMI (Body Mass Index) 21.54 kg/m2 Reina Estrada [facility] Internal Medicine Work Phone: 01-31-2018 11:02-0500 Body Temperature 97.2 [degF] Reina Estrada [facility] Internal Medicine Work Phone: Comment on above: Method: Temporal 01-31-2018 11:02-0500 Body weight 56.47 kg Reina Estrada [facility] Internal Medicine Work Phone: 01-31-2018 11:02-0500 BP Diastolic 70 mm[Hg] Reina Estrada [facility] Internal Medicine Work Phone: Comment on above: Patient Position: Sitting; Cuff Location : Left Arm; Cuff Size: Standard 01-31-2018 11:02-0500 BP Systolic 118 mm[Hg] Reina Estrada [facility] Internal Medicine Work Phone: Comment on above: Patient Position: Sitting; Cuff Location : Left Arm; Cuff Size: Standard 01-31-2018 11:02-0500 BSA (Body Surface Area) 1.59 m2 Reina Estrada [facility] Internal Medicine Work Phone: 01-31-2018 11:02-0500 Height 161.93 cm Reina Estrada [facility] Internal Medicine Work Phone: 01-31-2018 11:02-0500 Pulse (Heart Rate) 80 /min Reina Estrada [facility] Internal Medicine Work Phone: Comment on above: Pattern: Regular 01-31-2018 11:02-0500 Respiratory Rate 16 /min Reina Estrada [facility] Internal Medicine Work Phone: Comment on above: Pattern: Unlabored 01-31-2018 11:02-0500 Weight 56.47 kg Gia Grover [facility] Internal Medicine Work Phone: 09-27-2017 13:18-0400 BMI (Body Mass Index) 21.47 kg/m2 Reina Estrada [facility] Internal Medicine Work Phone: 09-27-2017 13:18-0400 Body Temperature 97.2 [degF] Reina Estrada [facility] Internal Medicine Work Phone: Comment on above: Method: Temporal 09-27-2017 13:18-0400 Body weight 56.3 kg Reina Estrada [facility] Internal Medicine Work Phone: 09-27-2017 13:18-0400 BP Diastolic 68 mm[Hg] Reina Estrada [facility] Internal Medicine Work Phone: Comment on above: Patient Position: Sitting; Cuff Location : Left Arm; Cuff Size: Standard 09-27-2017 13:18-0400 BP Systolic 122 mm[Hg] Reina Estrada [facility] Internal Medicine Work Phone: Comment on above: Patient Position: Sitting; Cuff Location : Left Arm; Cuff Size: Standard 09-27-2017 13:18-0400 BSA (Body Surface Area) 1.59 m2 Reina Estrada [facility] Internal Medicine Work Phone: 09-27-2017 13:18-0400 Height 161.93 cm Reina Estrada [facility] Internal Medicine Work Phone: 09-27-2017 13:18-0400 Pulse (Heart Rate) 70 /min Reina Estrada [facility] Internal Medicine Work Phone: Comment on above: Pattern: Regular 09-27-2017 13:18-0400 Respiratory Rate 16 /min Reina Estrada [employer] [facility] Work Phone: Comment on above: Pattern: Unlabored 09-27-2017 13:18-0400 Weight 56.3 kg Gia Grover [facility] Internal Medicine Work Phone: 05-26-2017 13:36-0400 BMI (Body Mass Index) 22.58 kg/m2 Reina Estrada [facility] Work Phone: 05-26-2017 13:36-0400 Body Temperature 96 [degF] Reina Estrada [facility] Work Phone: Comment on above: Method: Temporal 05-26-2017 13:36-0400 Body weight 59.19 kg Reina Estrada [facility] Internal Medicine Work Phone: 05-26-2017 13:36-0400 BP Diastolic 60 mm[Hg] Reina Estrada [facility] Internal Medicine Work Phone: Comment on above: Patient Position: Sitting; Cuff Location : Left Arm; Cuff Size: Standard 05-26-2017 13:36-0400 BP Systolic 118 mm[Hg] Reina Estrada [facility] Internal Medicine Work Phone: Comment on above: Patient Position: Sitting; Cuff Location : Left Arm; Cuff Size: Standard 05-26-2017 13:36-0400 BSA (Body Surface Area) 1.63 m2 Reina Estrada [facility] Internal Medicine Work Phone: 05-26-2017 13:36-0400 Height 161.93 cm Reina Estrada [facility] Internal Medicine Work Phone: 05-26-2017 13:36-0400 Pulse (Heart Rate) 79 /min Reina Estrada [facility] Internal Medicine Work Phone: Comment on above: Pattern: Regular 05-26-2017 13:36-0400 Respiratory Rate 16 /min Reina Estrada [facility] Internal Medicine Work Phone: Comment on above: Pattern: Unlabored 05-26-2017 13:36-0400 Weight 59.19 kg Gia Grover [facility] Internal Medicine Work Phone: 01-18-2017 11:06-0500 BMI (Body Mass Index) 22.14 kg/m2 Lavinia Britton Rusty formerly [facility] Internal Medicine Work Phone: 01-18-2017 11:06-0500 Body Temperature 96.7 [degF] Lavinia Britton [facility] Internal Medicine Work Phone: Comment on above: Method: Temporal 01-18-2017 11:06-0500 Body weight 58.06 kg Lavinia Quevedopallavi [facility] Internal Medicine Work Phone: 01-18-2017 11:06-0500 BP Diastolic 76 mm[Hg] Laviina Quevedopallavi [facility] Internal Medicine Work Phone: Comment on above: Patient Position: Sitting; Cuff Location : Left Arm; Cuff Size: Standard 01-18-2017 11:06-0500 BP Systolic 110 mm[Hg] Lavinia Quevedopallavi [facility] Internal Medicine Work Phone: Comment on above: Patient Position: Sitting; Cuff Location : Left Arm; Cuff Size: Standard 01-18-2017 11:06-0500 BSA (Body Surface Area) 1.61 m2 Lavinia Quevedopallavi [facility] Internal Medicine Work Phone: 01-18-2017 11:06-0500 Height 161.93 cm Lavinia Quevedopallavi [facility] Internal Medicine Work Phone: 01-18-2017 11:06-0500 Pulse (Heart Rate) 56 /min Lavinia Quevedopallavi [facility] Work Phone: Comment on above: Pattern: Regular 01-18-2017 11:06-0500 Pulse Oximetry 100 % Gia Fast [facility] Internal Medicine Work Phone: Comment on above: Room air 01-18-2017 11:06-0500 Respiratory Rate 16 /min Lavinia Reba [facility] Internal Medicine Work Phone: Comment on above: Pattern: Unlabored 01-18-2017 11:06-0500 SaO2% (BldA) [Mass fraction] 100 % Lavinia Britton [facility]; [facility] Work Phone: Comment on above: Room air 01-18-2017 11:06-0500 Weight 58.06 kg Gia Grover [facility] Internal Medicine Work Phone: 09-14-2016 13:37-0400 BMI (Body Mass Index) 23.01 kg/m2 Lavinia Britton [facility] Work Phone: 09-14-2016 13:37-0400 Body Temperature 97.7 [degF] Lavinia Britton [facility] Internal Medicine Work Phone: Comment on above: Method: Temporal 09-14-2016 13:37-0400 Body weight 60.33 kg Lavinia Britton [facility] Internal Medicine Work Phone: 09-14-2016 13:37-0400 BP Diastolic 68 mm[Hg] Lavinia Colemanmannie [facility] Internal Medicine Work Phone: Comment on above: Patient Position: Sitting; Cuff Location : Left Arm; Cuff Size: Standard 09-14-2016 13:37-0400 BP Systolic 120 mm[Hg] Lavinia Britton [facility] Internal Medicine Work Phone: Comment on above: Patient Position: Sitting; Cuff Location : Left Arm; Cuff Size: Standard 09-14-2016 13:37-0400 BSA (Body Surface Area) 1.64 m2 Lavinia Britton [facility] Internal Medicine Work Phone: 09-14-2016 13:37-0400 Height 161.93 cm Lavinia Quevedopallavi [facility] Internal Medicine Work Phone: 09-14-2016 13:37-0400 Pulse (Heart Rate) 66 /min Lavinia Britton [facility] Work Phone: Comment on above: Pattern: Regular 09-14-2016 13:37-0400 Pulse Oximetry 97 % Gia Grover [facility] Internal Medicine Work Phone: Comment on above: Room air 09-14-2016 13:37-0400 Respiratory Rate 15 /min Lavinia Reba [facility] Internal Medicine Work Phone: Comment on above: Pattern: Unlabored 09-14-2016 13:37-0400 SaO2% (BldA) [Mass fraction] 97 % Lavinia Britton [facility]; [facility] Work Phone: Comment on above: Room air 09-14-2016 13:37-0400 Weight 60.33 kg Gia Grover [facility] Internal Medicine Work Phone: 04-15-2016 11:02-0500 BMI (Body Mass Index) 23.35 kg/m2 Lavinia Palomaresen sive Internal Medicine Work Phone: 04-15-2016 11:02-0500 Body Temperature 97.2 [degF] Lavinia Reba [facility] Internal Medicine Work Phone: Comment on above: Method: Temporal 04-15-2016 11:02-0500 Body weight 61.24 kg Lavinia Reba [facility] Internal Medicine Work Phone: 04-15-2016 11:02-0500 BP Diastolic 80 mm[Hg] Lavinia Reba [facility] Internal Medicine Work Phone: Comment on above: Patient Position: Sitting; Cuff Location : Left Arm; Cuff Size: Standard 04-15-2016 11:02-0500 BP Systolic 128 mm[Hg] Lavinia Reba [facility] Internal Medicine Work Phone: Comment on above: Patient Position: Sitting; Cuff Location : Left Arm; Cuff Size: Standard 04-15-2016 11:02-0500 BSA (Body Surface Area) 1.65 m2 Lavinia Reba [facility] Internal Medicine Work Phone: 04-15-2016 11:02-0500 Height 161.93 cm Lavinia Britton [facility] Internal Medicine Work Phone: 04-15-2016 11:02-0500 Pulse (Heart Rate) 62 /min Lavinia Reba [facility] Work Phone: Comment on above: Pattern: Regular 04-15-2016 11:02-0500 Pulse Oximetry 100 % Gia Grover [facility] Internal Medicine Work Phone: Comment on above: Room air 04-15-2016 11:02-0500 Respiratory Rate 16 /min Lavinia Britton [facility] Work Phone: Comment on above: Pattern: Unlabored 04-15-2016 11:02-0500 SaO2% (BldA) [Mass fraction] 100 % Lavinia Britton [facility]; [facility] Work Phone: Comment on above: Room air 04-15-2016 11:02-0500 Weight 61.24 kg Gia Grover [facility] Work Phone: 09-11-2015 08:06-0400 BMI (Body Mass Index) 21.97 kg/m2 FRANCIA Reyes STAFF [employer] OFFICER [facility] Work Phone: 09-11-2015 08:06-0400 Body Temperature 97.6 [degF] FRANCIA Reyes STAFF [employer] OFFICER [facility] Work Phone: Comment on above: Method: Temporal 09-11-2015 08:06-0400 Body weight 57.61 kg FRANCIA Reyes STAFF [employer] OFFICER [facility] Work Phone: 09-11-2015 08:06-0400 BP Diastolic 74 mm[Hg] FRANCIA Reyes STAFF [employer] OFFICER [facility] Work Phone: Comment on above: Patient Position: Sitting; Cuff Location : Left Arm; Cuff Size: Standard 09-11-2015 08:06-0400 BP Systolic 118 mm[Hg] FRANCIA Reyes STAFF [employer] OFFICER [facility] Work Phone: Comment on above: Patient Position: Sitting; Cuff Location : Left Arm; Cuff Size: Standard 09-11-2015 08:06-0400 BSA (Body Surface Area) 1.61 m2 FRANCIA Reyes STAFF [employer] OFFICER [facility] Work Phone: 09-11-2015 08:06-0400 Height 161.93 cm FRANCIA Reyes STAFF E[employer] OFFICER [facility] Work Phone: 09-11-2015 08:06-0400 Pulse (Heart Rate) 74 /min FRANCIA Reyes STAFF [employer] OFFICER [facility] Work Phone: Comment on above: Pattern: Regular 09-11-2015 08:06-0400 Pulse Oximetry 97 % Gia Grover [facility] Work Phone: Comment on above: Room air 09-11-2015 08:06-0400 Respiratory Rate 18 /min FRANCIA Reyes MARIELLE [facility] Work Phone: Comment on above: Pattern: Unlabored 09-11-2015 08:06-0400 SaO2% (BldA) [Mass fraction] 97 % FRANCIA Reyes MARIELLE [facility]; [facility] Work Phone: Comment on above: Room air 09-11-2015 08:06-0400 Weight 57.61 kg Gia Grover [facility] Work Phone: 02-17-2015 12:12-0500 BMI (Body Mass Index) 22.49 kg/m2 Lavinia inigueze Internal Medicine Work Phone: 02-17-2015 12:12-0500 Body Temperature 97.7 [degF] Lavinia Britton [facility] Work Phone: Comment on above: Method: Temporal 02-17-2015 12:12-0500 Body weight 58.97 kg Lavinia Britton [facility] Work Phone: 02-17-2015 12:12-0500 BP Diastolic 84 mm[Hg] Lavinia Britton [facility] Work Phone: Comment on above: Patient Position: Sitting; Cuff Location : Left Arm; Cuff Size: Standard 02-17-2015 12:12-0500 BP Systolic 132 mm[Hg] Lavinia Britton [facility] Work Phone: Comment on above: Patient Position: Sitting; Cuff Location : Left Arm; Cuff Size: Standard 02-17-2015 12:12-0500 BSA (Body Surface Area) 1.62 m2 Lavinia Woodall Internal Medicine Work Phone: 02-17-2015 12:12-0500 Height 161.93 cm Lavinia Britton [facility] Work Phone: 02-17-2015 12:12-0500 Pulse (Heart Rate) 76 /min Lavinia Palomaresensiv e Internal Medicine Work Phone: Comment on above: Pattern: Regular 02-17-2015 12:12-0500 Pulse Oximetry 98 % Gia Grover [facility] Work Phone: Comment on above: Room air 02-17-2015 12:12-0500 Respiratory Rate 16 /min Lavinia Quevedopallavi [facility] Work Phone: Comment on above: Pattern: Unlabored 02-17-2015 12:12-0500 SaO2% (BldA) [Mass fraction] 98 % Lavinia Reba [facility] Internal Medicine; [facility] Work Phone: Comment on above: Room air 02-17-2015 12:12-0500 Weight 58.97 kg Gia Grover [facility] Internal Medicine Work Phone: 08-27-2014 08:31-0400 BMI (Body Mass Index) 21.97 kg/m2 Lavinia Britton [facility] Internal Medicine Work Phone: 08-27-2014 08:31-0400 Body Temperature 96.5 [degF] Lavinia Reba [facility] Internal Medicine Work Phone: Comment on above: Method: Oral 08-27-2014 08:31-0400 Body weight 57.61 kg Lavinia Reba [facility] Internal Medicine Work Phone: 08-27-2014 08:31-0400 BP Diastolic 80 mm[Hg] Lavinia Britton [facility] Internal Medicine Work Phone: Comment on above: Patient Position: Sitting; Cuff Location : Left Arm; Cuff Size: Standard 08-27-2014 08:31-0400 BP Systolic 122 mm[Hg] Lavinia Britton [facility] Internal Medicine Work Phone: Comment on above: Patient Position: Sitting; Cuff Location : Left Arm; Cuff Size: Standard 08-27-2014 08:31-0400 BSA (Body Surface Area) 1.61 m2 Lavinia Britton [facility] Internal Medicine Work Phone: 08-27-2014 08:31-0400 Height 161.93 cm Lavinia Britton [facility] Internal Medicine Work Phone: 08-27-2014 08:31-0400 Pulse (Heart Rate) 72 /min Lvainia Britton [facility]prehens[facility] Internal Medicine Work Phone: Comment on above: Pattern: Regular 08-27-2014 08:31-0400 Respiratory Rate 16 /min Lavinia Britton [facility] Internal Medicine Work Phone: Comment on above: Pattern: Unlabored 08-27-2014 08:31-0400 Weight 57.61 kg Gia Grover [facility] Internal Medicine Work Phone: 04-23-2014 08:12-0500 BMI (Body Mass Index) 22.49 kg/m2 Lavinia Britton Comprehen [facility] Internal Medicine Work Phone: 04-23-2014 08:12-0500 Body Temperature 95.3 [degF] Lavinia Britton [facility] Internal Medicine Work Phone: 04-23-2014 08:12-0500 Body weight 58.97 kg Lavinia Britton [facility] Internal Medicine Work Phone: 04-23-2014 08:12-0500 BP Diastolic 70 mm[Hg] Lavinia Britton [facility] Internal Medicine Work Phone: Comment on above: Patient Position: Sitting; Cuff Location : Left Arm; Cuff Size: Standard 04-23-2014 08:12-0500 BP Systolic 116 mm[Hg] Lavinia Britton [facility] Internal Medicine Work Phone: Comment on above: Patient Position: Sitting; Cuff Location : Left Arm; Cuff Size: Standard 04-23-2014 08:12-0500 BSA (Body Surface Area) 1.62 m2 Lavinia Britton [facility] Internal Medicine Work Phone: 04-23-2014 08:12-0500 Height 161.93 cm Lavinia Britton [facility] Internal Medicine Work Phone: 04-23-2014 08:12-0500 Pulse (Heart Rate) 80 /min Lavinia Britton [facility]prehens[facility] Internal Medicine Work Phone: Comment on above: Pattern: Regular 04-23-2014 08:12-0500 Respiratory Rate 16 /min Lavinia Britton [facility] Internal Medicine Work Phone: Comment on above: Pattern: Unlabored 04-23-2014 08:12-0500 Weight 58.97 kg Gia Grover [facility] Internal Medicine Work Phone: 08-02-2013 13:41-0400 BMI (Body Mass Index) 21.45 kg/m2 Reina Estrada [facility] Internal Medicine Work Phone: 08-02-2013 13:41-0400 Body Temperature 99 [degF] Reina Estrada [facility] Internal Medicine Work Phone: Comment on above: Method: Oral 08-02-2013 13:41-0400 Body weight 56.25 kg Reina Estrada [facility] Internal Medicine Work Phone: 08-02-2013 13:41-0400 BP Diastolic 68 mm[Hg] Reina Estrada [facility] Internal Medicine Work Phone: Comment on above: Patient Position: Sitting; Cuff Location : Left Arm; Cuff Size: Standard 08-02-2013 13:41-0400 BP Systolic 120 mm[Hg] Reina Estrada [facility] Internal Medicine Work Phone: Comment on above: Patient Position: Sitting; Cuff Location : Left Arm; Cuff Size: Standard 08-02-2013 13:41-0400 BSA (Body Surface Area) 1.59 m2 Reina Estrada [facility] Internal Medicine Work Phone: 08-02-2013 13:41-0400 Height 161.93 cm Reina Estrada [facility] Internal Medicine Work Phone: 08-02-2013 13:41-0400 Pulse (Heart Rate) 85 /min Reina Estrada [facility] Internal Medicine Work Phone: Comment on above: Pattern: Regular 08-02-2013 13:41-0400 Pulse Oximetry 98 % Gia Grover [facility] Internal Medicine Work Phone: Comment on above: Room air 08-02-2013 13:41-0400 Respiratory Rate 16 /min Reina Estrada [employer] [facility] Work Phone: Comment on above: Pattern: Unlabored 08-02-2013 13:41-0400 SaO2% (BldA) [Mass fraction] 98 % Reina Estrada [facility] Internal Medicine; [facility] Work Phone: Comment on above: Room air 08-02-2013 13:41-0400 Weight 56.25 kg Gia Grover [facility] Internal Medicine Work Phone: 03-22-2013 13:47-0500 BMI (Body Mass Index) 22.14 kg/m2 Lavinia Palomaresen sive Internal Medicine Work Phone: 03-22-2013 13:47-0500 Body Temperature 97.8 [degF] Lavniia Britton [facility] Internal Medicine Work Phone: 03-22-2013 13:47-0500 Body weight 58.06 kg Lavinia Britton [facility] Internal Medicine Work Phone: 03-22-2013 13:47-0500 BP Diastolic 64 mm[Hg] Lavinia Britton [facility] Internal Medicine Work Phone: Comment on above: Patient Position: Sitting; Cuff Location : Left Arm; Cuff Size: Standard 03-22-2013 13:47-0500 BP Systolic 100 mm[Hg] Lavinia Britton [facility] Internal Medicine Work Phone: Comment on above: Patient Position: Sitting; Cuff Location : Left Arm; Cuff Size: Standard 03-22-2013 13:47-0500 BSA (Body Surface Area) 1.61 m2 Lavinia Britton [facility] Internal Medicine Work Phone: 03-22-2013 13:47-0500 Height 161.93 cm Lavinia Britton [facility] Internal Medicine Work Phone: 03-22-2013 13:47-0500 Pulse (Heart Rate) 62 /min Lavinia Britton [facility] Internal Medicine Work Phone: Comment on above: Pattern: Regular 03-22-2013 13:47-0500 Respiratory Rate 16 /min Lavinia Britton [facility] Internal Medicine Work Phone: Comment on above: Pattern: Unlabored 03-22-2013 13:47-0500 Weight 58.06 kg Gia Grover [facility] Internal Medicine Work Phone: 02-13-2013 09:07-0500 BMI (Body Mass Index) 21.97 kg/m2 Lavinia Britton Compre[facility] Internal Medicine Work Phone: 02-13-2013 09:07-0500 Body Temperature 96.5 [degF] Lavinia Britton [facility] Internal Medicine Work Phone: 02-13-2013 09:07-0500 Body weight 57.61 kg Lavinia Britton [facility] Internal Medicine Work Phone: 02-13-2013 09:07-0500 BP Diastolic 70 mm[Hg] Lavinia Britton [facility] Internal Medicine Work Phone: Comment on above: Patient Position: Sitting; Cuff Location : Left Arm; Cuff Size: Standard 02-13-2013 09:07-0500 BP Systolic 116 mm[Hg] Lavinia Britton [facility] Internal Medicine Work Phone: Comment on above: Patient Position: Sitting; Cuff Location : Left Arm; Cuff Size: Standard 02-13-2013 09:07-0500 BSA (Body Surface Area) 1.61 m2 Lavinia Britton [facility] Internal Medicine Work Phone: 02-13-2013 09:07-0500 Height 161.93 cm Lavinia Colemanmannie [facility] Internal Medicine Work Phone: 02-13-2013 09:07-0500 Pulse (Heart Rate) 62 /min Lavinia Britton Comprehens[facility] Internal Medicine Work Phone: Comment on above: Pattern: Regular 02-13-2013 09:07-0500 Respiratory Rate 16 /min Lavinia Colemanmannie [facility] Internal Medicine Work Phone: Comment on above: Pattern: Unlabored 02-13-2013 09:07-0500 Weight 57.61 kg Gia Grover [facility] Internal Medicine Work Phone: 08-20-2012 10:34-0400 BMI (Body Mass Index) 21.11 kg/m2 [facility] Internal [facility] Work Phone: 08-20-2012 10:34-0400 Body Temperature 96.9 [degF] Lavinia Britton [facility] Internal Medicine Work Phone: 08-20-2012 10:34-0400 Body weight 55.34 kg Lavinia Britton [facility] Internal Medicine Work Phone: 08-20-2012 10:34-0400 BP Diastolic 74 mm[Hg] Lavinia Britton [facility] Internal Medicine Work Phone: Comment on above: Patient Position: Sitting; Cuff Location : Left Arm; Cuff Size: Standard 08-20-2012 10:34-0400 BP Systolic 122 mm[Hg] Lavinia Britton [facility] Internal Medicine Work Phone: Comment on above: Patient Position: Sitting; Cuff Location : Left Arm; Cuff Size: Standard 08-20-2012 10:34-0400 BSA (Body Surface Area) 1.58 m2 Lavinia Britton [facility] Internal Medicine Work Phone: 08-20-2012 10:34-0400 Height 161.93 cm Lavinia Britton [facility] Internal Medicine Work Phone: 08-20-2012 10:34-0400 Pulse (Heart Rate) 60 /min Lavinia Britton [facility]prehens[facility] Internal Medicine Work Phone: Comment on above: Pattern: Regular 08-20-2012 10:34-0400 Respiratory Rate 16 /min Lavinia Britton [facility] Internal Medicine Work Phone: Comment on above: Pattern: Unlabored 08-20-2012 10:34-0400 Weight 55.34 kg Gia Fast [facility] Internal Medicine Work Phone: 07-11-2012 10:36-0400 BMI (Body Mass Index) 22.02 kg/m2 Reina Estrada [facility] Internal Medicine Work Phone: 07-11-2012 10:36-0400 Body Temperature 98 [degF] Reina Estrada [employer] [facility] Work Phone: Comment on above: Method: Oral 07-11-2012 10:36-0400 Body weight 56.39 kg Reina Estrada [facility] Internal Medicine Work Phone: 07-11-2012 10:36-0400 BP Diastolic 68 mm[Hg] Reina Estrada [facility] Internal Medicine Work Phone: Comment on above: Patient Position: Sitting; Cuff Location : Left Arm; Cuff Size: Standard 07-11-2012 10:36-0400 BP Systolic 118 mm[Hg] Reina Estrada [facility] Internal Medicine Work Phone: Comment on above: Patient Position: Sitting; Cuff Location : Left Arm; Cuff Size: Standard 07-11-2012 10:36-0400 BSA (Body Surface Area) 1.58 m2 Reina Estrada [facility] Internal Medicine Work Phone: 07-11-2012 10:36-0400 Height 160.02 cm Reina Estrada [facility] Internal Medicine Work Phone: 07-11-2012 10:36-0400 Pulse (Heart Rate) 68 /min Reina Estrada [facility] Internal Medicine Work Phone: Comment on above: Pattern: Regular 07-11-2012 10:36-0400 Respiratory Rate 16 /min Reina Estrada [facility] Internal Medicine Work Phone: Comment on above: Pattern: Unlabored 07-11-2012 10:36-0400 Weight 56.39 kg Gia Reilly [facility] Internal Medicine Work Phone: 04-11-2012 08:58-0500 BMI (Body Mass Index) 22.14 kg/m2 Lavinia Britton [facility] Internal Medicine Work Phone: 04-11-2012 08:58-0500 Body Temperature 98.4 [degF] Lavinia Britton [facility] Internal Medicine Work Phone: 04-11-2012 08:58-0500 Body weight 56.7 kg Lavinia Britton [facility] Internal Medicine Work Phone: 04-11-2012 08:58-0500 BP Diastolic 64 mm[Hg] Lavinia Britton [facility] Internal Medicine Work Phone: Comment on above: Patient Position: Sitting; Cuff Location : Left Arm; Cuff Size: Large 04-11-2012 08:58-0500 BP Systolic 122 mm[Hg] Lavinia Britton [facility] Internal Medicine Work Phone: Comment on above: Patient Position: Sitting; Cuff Location : Left Arm; Cuff Size: Large 04-11-2012 08:58-0500 BSA (Body Surface Area) 1.58 m2 Lavinia Britton [facility] Internal Medicine Work Phone: 04-11-2012 08:58-0500 Height 160.02 cm Lavinia Britton [facility] Internal Medicine Work Phone: 04-11-2012 08:58-0500 Pulse (Heart Rate) 80 /min [facility] Work Phone: Comment on above: Pattern: Regular 04-11-2012 08:58-0500 Respiratory Rate 16 /min Lavinia Britton [facility] Internal Medicine Work Phone: Comment on above: Pattern: Unlabored 04-11-2012 08:58-0500 Weight 56.7 kg Gia [facility] Internal Medicine Work Phone: 10-07-2011 09:42-0400 BMI (Body Mass Index) 22.85 kg/m2 Gia [facility] Internal [facility] Work Phone: 10-07-2011 09:42-0400 Body Temperature 98.6 [degF] Gia Fast [facility] Internal Medicine Work Phone: Comment on above: Method: Oral 10-07-2011 09:42-0400 Body weight 58.51 kg [facility] Internal Medicine Work Phone: 10-07-2011 09:42-0400 BP Diastolic 78 mm[Hg] Gia Fast [facility] Internal Medicine Work Phone: Comment on above: [...] BMI (Body Mass Index) 22.85 kg/m2 Lavinia Reba [facility] Internal Medicine Work Phone: 09-14-2011 11:03-0400 Body Temperature 96.8 [degF] [facility] Work Phone: 09-14-2011 11:03-0400 [facility]: 09-14-2011 11:03-0400 BP Diastolic 74 mm[Hg[facility] Work [facility]: Comment on above: Patient Position: Sitting; Cuff Location : Left Arm; Cuff Size: Standard 09-14-2011 11:03-0400 BP Systolic 136 mm[Hg] [facility] Work Phone: Comment on above: Patient Position: Sitting; Cuff Location : Left Arm; Cuff Size: Standard 09-14-2011 11:03-0400 BSA (Body Surface Area) 1.61 m2 [facility] Internal Medicine Work Phone: 09-14-2011 11:03-0400 Height 160.02 cm Lavinia Britton [facility] Internal Medicine Work Phone: 09-14-2011 11:03-0400 Pulse (Heart Rate) 68 /min [facility] Work Phone: Comment on above: Pattern: Regular 09-14-2011 11:03-0400 Respiratory Rate 16 /min Lavinia Britton [facility] Internal Medicine Work Phone: Comment on above: Pattern: Unlabored 09-14-2011 11:03-0400 Weight 58.51 kg Gia Grover [facility] Internal Medicine Work Phone: 05-04-2011 13:28-0500 BMI (Body Mass Index) 23.91 kg/m2 [facility]avinia [facility] Internal Medicine Work Phone: 05-04-2011 13:28-0500 Body Temperature 97.4 [degF] Lavinia Britton [facility] Internal Medicine Work Phone: 05-04-2011 13:28-0500 Body weight 61.24 kg Lavinia Britton [facility] Internal Medicine Work Phone: 05-04-2011 13:28-0500 BP Diastolic 72 mm[Hg] Lavinia Britton [facility] Internal Medicine Work Phone: Comment on above: Patient Position: Sitting; Cuff Location : Left Arm; Cuff Size: Standard 05-04-2011 13:28-0500 BP Systolic 136 mm[Hg] Lavinia Britton [facility] Internal Medicine Work Phone: Comment on above: Patient Position: Sitting; Cuff Location : Left Arm; Cuff Size: Standard 05-04-2011 13:28-0500 BSA (Body Surface Area) 1.64 m2 Lavinia Britton [facility] Internal Medicine Work Phone: 05-04-2011 13:28-0500 Height 160.02 cm Lavinia Britton [facility] Internal Medicine Work Phone: 05-04-2011 13:28-0500 Pulse (Heart Rate) 80 /min Lavinia Britton Comprehens[facility] Internal Medicine Work Phone: Comment on above: Pattern: Regular 05-04-2011 13:28-0500 Respiratory Rate 16 /min Lavinia Britton [facility] Internal Medicine Work Phone: Comment on above: Pattern: Unlabored 05-04-2011 13:28-0500 Weight 61.24 kg Gia Grover [facility] Internal Medicine Work Phone: 10-26-2010 10:34-0400 BMI (Body Mass Index) 22.14 kg/m2 Lavinia Britton [facility] Internal Medicine Work Phone: 10-26-2010 10:34-0400 Body Temperature 97.1 [degF] Lavinia Britton [facility] Internal Medicine Work Phone: 10-26-2010 10:34-0400 Body weight 56.7 kg Lavinia Britton [facility] Internal Medicine Work Phone: 10-26-2010 10:34-0400 BP Diastolic 68 mm[Hg] Lavinia Britton [facility] Internal Medicine Work Phone: Comment on above: Patient Position: Sitting; Cuff Location : Left Arm; Cuff Size: Standard 10-26-2010 10:34-0400 BP Systolic 104 mm[Hg] Lavinia Britton [facility] Internal Medicine Work Phone: Comment on above: Patient Position: Sitting; Cuff Location : Left Arm; Cuff Size: Standard 10-26-2010 10:34-0400 BSA (Body Surface Area) 1.58 m2 Lavinia Britton [facility] Internal Medicine Work Phone: 10-26-2010 10:34-0400 Height 160.02 cm Lavinia Britton [facility] Internal Medicine Work Phone: 10-26-2010 10:34-0400 Pulse (Heart Rate) 68 /min Lavinia Britton Comprehens[facility] Internal Medicine Work Phone: Comment on above: Pattern: Regular 10-26-2010 10:34-0400 Respiratory Rate 16 /min Lavinia Britton [facility] Work Phone: Comment on above: Pattern: Unlabored 10-26-2010 10:34-0400 Weight 56.7 kg Gia Fast [facility] Work Phone: 10-19-2010 10:02-0400 BMI (Body Mass Index) 22.14 kg/m2 Katarina Easley RN [facility] Internal Medicine Work Phone: 10-19-2010 10:02-0400 Body Temperature 97.1 [degF] Katarina Easley RN [facility] Medicine Work Phone: Comment on above: Method: Oral 10-19-2010 10:020400 Body weight 56.7 kg Katarina Easley RN [facility] Medicine Work Phone: 10-19-2010 10:02-0400 BP Diastolic 74 mm[Hg] Katarina Easley RN [facility] Work Phone: Comment on above: Patient Position: Sitting; Cuff Location : Left Arm; Cuff Size: Standard 10-19-2010 10:02-0400 BP Systolic 116 mm[Hg] Katarina Easley RN [facility] Work Phone: Comment on above: Patient Position: Sitting; Cuff Location : Left Arm; Cuff Size: Standard 10-19-2010 10:02-0400 BSA (Body Surface Area) 1.58 m2 Katarina Easley RN [facility] Medicine Work Phone: 10-19-2010 10:02-0400 Height 160.02 cm Katarina Easley RN [facility] Medicine Work Phone: 10-19-2010 10:02-0400 Weight 56.7 kg Gia Fast [facility] Work Phone: 09-28-2010 10:23-0400 BMI (Body Mass Index) 22.14 kg/m2 Gia Fast [facility] Internal Medicine Work Phone: 09-28-2010 10:23-0400 Body Temperature 96.9 [degF] Gia Fast [facility] Work Phone: Comment on above: Method: Oral 09-28-2010 10:23-0400 Body weight 56.7 kg Gia Grover [facility] Internal Medicine Work Phone: 09-28-2010 10:23-0400 BP Diastolic 74 mm[Hg] [facility] Internal Medicine Work Phone: Comment on above: Patient Position: Sitting; Cuff Location : Left Arm; Cuff Size: Standard 09-28-2010 10:23-0400 BP Systolic 118 mm[Hg] [facility] Internal Medicine Work Phone: Comment on above: Patient Position: Sitting; Cuff Location : Left Arm; Cuff Size: Standard 09-28-2010 10:23-0400 BSA (Body Surface Area) 1.58 m2 [facility] Internal Medicine Work Phone: 09-28-2010 10:23-0400 Height 160.02 cm Gia [facility] Internal Medicine Work Phone: 09-28-2010 10:23-0400 Pulse (Heart Rate) 70 /min [facility] Internal Medicine Work Phone: Comment on above: Pattern: Regular 09-28-2010 10:23-0400 Respiratory Rate 16 /min [facility] Internal Medicine Work Phone: Comment on above: Pattern: Unlabored 09-28-2010 10:23-0400 Weight 56.7 kg Gia [facility] Internal Medicine Work Phone: 04-12-2010 10:27-0500 Body Temperature 96.2 [degF] Laviniarosetta Colemanmannie [facility] Internal Medicine Work Phone: 04-12-2010 10:27-0500 Body weight 58.06 kg Lavinia Colemanmannie [facility] Internal Medicine Work Phone: 04-12-2010 10:27-0500 BP Diastolic 72 mm[Hg] Lavinia Reba [facility] Internal Medicine Work Phone: Comment on above: Patient Position: Sitting; Cuff Location : Left Arm; Cuff Size: Large 04-12-2010 10:27-0500 BP Systolic 112 mm[Hg] Lavinia Reba [facility] Internal Medicine Work Phone: Comment on above: Patient Position: Sitting; Cuff Location : Left Arm; Cuff Size: Large 04-12-2010 10:27-0500 Pulse (Heart Rate) 72 /min Lavinia Quevedopallavi [facility] Internal Medicine Work Phone: Comment on above: Pattern: Regular 04-12-2010 10:27-0500 Respiratory Rate 16 /min Lavinia Reba [facility] Internal Medicine Work Phone: Comment on above: Pattern: Unlabored 04-12-2010 10:27-0500 Weight 58.06 kg Gia [employer] [facility] Internal Medicine Work Phone: 01-13-2010 10:45-0500 Body Temperature 96.6 [degF] Lavinia Reba [facility] Internal Medicine Work Phone: 01-13-2010 10:45-0500 Body weight 56.25 kg Lavinia Reba [facility] Internal Medicine Work Phone: 01-13-2010 10:45-0500 BP Diastolic 84 mm[Hg] Lavinia Reba [facility] Internal Medicine Work Phone: Comment on above: Patient Position: Sitting; Cuff Location : Left Arm; Cuff Size: Standard 01-13-2010 10:45-0500 BP Systolic 142 mm[Hg] Lavinia Reba [facility] Internal Medicine Work Phone: Comment on above: Patient Position: Sitting; Cuff Location : Left Arm; Cuff Size: Standard 01-13-2010 10:45-0500 Pulse (Heart Rate) 68 /min Lavinia Reba [facility] Internal Medicine Work Phone: Comment on above: Pattern: Regular 01-13-2010 10:45-0500 Respiratory Rate 18 /min Lavinia Reba [facility] Internal Medicine Work Phone: Comment on above: Pattern: Unlabored 01-13-2010 10:45-0500 Weight 56.25 kg Gia Grover [facility] Internal Medicine Work Phone: 09-30-2009 10:16-0400 BMI (Body Mass Index) 21.28 kg/m2 Lavinia Britton [facility] Internal Medicine Work Phone: 09-30-2009 10:16-0400 Body Temperature 96.6 [degF] Lavinia Britton [facility] Internal Medicine Work Phone: 09-30-2009 10:16-0400 Body weight 55.79 kg Lavinia Britton [facility] Internal Medicine Work Phone: 09-30-2009 10:16-0400 BP Diastolic 64 mm[Hg] Lavinia Quevedoraulmannie [facility] Internal Medicine Work Phone: Comment on above: Patient Position: Sitting; Cuff Location : Left Arm; Cuff Size: Large 09-30-2009 10:16-0400 BP Systolic 106 mm[Hg] Lavinia Quevedopallavi [facility] Internal Medicine Work Phone: Comment on above: Patient Position: Sitting; Cuff Location : Left Arm; Cuff Size: Large 09-30-2009 10:16-0400 BSA (Body Surface Area) 1.59 m2 Lavinia Reba [facility] Internal Medicine Work Phone: 09-30-2009 10:16-0400 Height 161.93 cm Lavinia Quevedopallavi [facility] Internal Medicine Work Phone: 09-30-2009 10:16-0400 Pulse (Heart Rate) 76 /min Lavinia Britton [facility] Internal Medicine Work Phone: Comment on above: Pattern: Regular 09-30-2009 10:16-0400 Respiratory Rate 18 /min Lavinia Reba [facility] Internal Medicine Work Phone: Comment on above: Pattern: Unlabored 09-30-2009 10:16-0400 Weight 55.79 kg Gia Fast [facility] Work Phone: 04-15-2009 09:00-0500 Body [...] Phone: 07-24-2008 09:41-0400 Body Temperature 97.3 [degF] [facility] Internal Medicine Work Phone: Comment on above: Method: Oral 07-24-2008 09:41-0400 Body weight 0 kg [facility] Internal Medicine Work Phone: 07-24-2008 09:41-0400 BP Diastolic 64 mm[Hg] [facility] Internal Medicine Work Phone: Comment on above: Patient Position: Supine; Cuff Location: Right Arm; Cuff Size: Standard 07-24-2008 09:41-0400 BP Systolic 122 mm[Hg] [facility] Internal Medicine Work Phone: Comment on above: Patient Position: Supine; Cuff Location: Right Arm; Cuff Size: Standard 07-24-2008 09:41-0400 Head Circumference 0 cm [facility] Internal Medicine Work Phone: 07-24-2008 09:41-0400 Head Occipital-frontal circumference 0 cm [facility] Internal Medicine; [facility] Internal Medicine Work Phone: 07-24-2008 09:41-0400 Height 0 cm [facility] Internal Medicine Work Phone: 07-24-2008 09:41-0400 Pulse (Heart Rate) 64 /min [facility] Internal Medicine Work Phone: Comment on above: Pattern: Regular 07-24-2008 09:41-0400 Respiratory Rate 18 /min [facility] Internal Medicine Work Phone: Comment on above: Pattern: Unlabored 07-24-2008 09:41-0400 Weight 0 kg Gia Grover [facility] Internal Medicine Work Phone: 07-16-2008 10:17-0400 BMI (Body Mass Index) 20.25 kg/m2 Lavinia Britton [facility] Internal Medicine Work Phone: 07-16-2008 10:17-0400 Body Temperature 97.2 [degF] Lavinia Reba [facility] Internal Medicine Work Phone: Comment on above: Method: Undefined 07-16-2008 10:17-0400 Body weight 53.52 kg Lavinia Britton [facility] Internal Medicine Work Phone: 07-16-2008 10:17-0400 BP Diastolic 70 mm[Hg] Lavinia Reba [facility] Internal Medicine Work Phone: Comment on above: Patient Position: Sitting; Cuff Location : Right Arm; Cuff Size: Standard 07-16-2008 10:17-0400 BP Systolic 130 mm[Hg] Lavinia Reba [facility] Internal Medicine Work Phone: Comment on above: Patient Position: Sitting; Cuff Location : Right Arm; Cuff Size: Standard 07-16-2008 10:17-0400 BSA (Body Surface Area) 1.56 m2 Lavinia Reba [facility] Internal Medicine Work Phone: 07-16-2008 10:17-0400 Head Circumference 0 cm Gia [facility] Internal Medicine Work Phone: 07-16-2008 10:17-0400 Head Occipital-frontal circumference 0 cm [facility]on [facility] Work Phone: 07-16-2008 10:17-0400 Height 162.56 cm Lavinia Britton [facility] Internal Medicine Work Phone: 07-16-2008 10:17-0400 Pulse (Heart Rate) 68 /min Lavinia Britton [facility] Internal Medicine Work Phone: Comment on above: Pattern: Regular 07-16-2008 10:17-0400 Respiratory Rate 18 /min Lavinia Britton [facility] Internal Medicine Work Phone: Comment on above: Pattern: Undefined 07-16-2008 10:17-0400 Weight 53.52 kg Gia Grover [facility] Internal Medicine Work Phone: 04-30-2008 09:58-0500 Body Temperature 98.2 [degF] Lavinia Britton [facility] Internal Medicine Work Phone: Comment on above: Method: Undefined 04-30-2008 09:58-0500 Body weight 56.25 kg Lavinia Britton [facility] Internal Medicine Work Phone: 04-30-2008 09:58-0500 BP Diastolic 74 mm[Hg] Lavinia Britton [facility] Internal Medicine Work Phone: Comment on above: Patient Position: Sitting; Cuff Location : Left Arm; Cuff Size: Large 04-30-2008 09:58-0500 BP Systolic 130 mm[Hg] Lavinia Britton [facility] Internal Medicine Work Phone: Comment on above: Patient Position: Sitting; Cuff Location : Left Arm; Cuff Size: Large 04-30-2008 09:58-0500 Head Circumference 0 cm Gia [facility] Internal Medicine Work Phone: 04-30-2008 09:58-0500 Head Occipital-frontal circumference 0 cm Lavinia Britton [facility] Internal Medicine; [facility] Work Phone: 04-30-2008 09:58-0500 Height 0 cm Lavinia Britton [facility] Internal Medicine Work Phone: 04-30-2008 09:58-0500 Pulse (Heart Rate) 68 /min Lavinia Britton [facility] Medicine Work Phone: Comment on above: Pattern: Regular 04-30-2008 09:58-0500 Respiratory Rate 16 /min Lavinia Britton [facility] Internal Medicine Work Phone: Comment on above: Pattern: Undefined 04-30-2008 09:58-0500 Weight 56.25 kg Gia Grover [facility] Internal Medicine Work Phone: 01-22-2008 11:04-0500 Body Temperature 97.4 [degF] Lavinia Reba [facility] Internal Medicine Work Phone: Comment on above: Method: Undefined 01-22-2008 11:04-0500 Body weight 53.52 kg Lavinia Reba [facility] Internal Medicine Work Phone: 01-22-2008 11:04-0500 BP Diastolic 76 mm[Hg] Lavinia Britton [facility] Internal Medicine Work Phone: Comment on above: Patient Position: Sitting; Cuff Location : Right Arm; Cuff Size: Large 01-22-2008 11:04-0500 BP Systolic 126 mm[Hg] Lavinia Britton [facility] Internal Medicine Work Phone: Comment on above: Patient Position: Sitting; Cuff Location : Right Arm; Cuff Size: Large 01-22-2008 11:04-0500 Head Circumference 0 cm Gia Grover [facility] Internal Medicine Work Phone: 01-22-2008 11:04-0500 Head Occipital-frontal circumference 0 cm Lavinia Britton [facility] Internal [facility]; [facility] Internal Medicine Work Phone: 01-22-2008 11:04-0500 Height 0 cm Lavinia Britton [facility] Internal Medicine Work Phone: 01-22-2008 11:04-0500 Pulse (Heart Rate) 56 /min Lavinia Britton [facility] Medicine Work Phone: Comment on above: Pattern: Regular 01-22-2008 11:04-0500 Respiratory Rate 16 /min Lavinia Britton [facility] Internal Medicine Work Phone: Comment on above: Pattern: Undefined 01-22-2008 11:04-0500 Weight 53.52 kg Gia Fast [facility] Internal Medicine Work Phone: 07-17-2007 10:05-0400 Body Temperature 97.9 [degF] Lavinia Britton [facility] Internal Medicine Work Phone: Comment on above: Method: Undefined 07-17-2007 10:05040 Body weight 56.7 kg Lavinia Britton [facility] Internal Medicine Work Phone: 07-17-2007 10:05-0400 BP Diastolic 62 mm[Hg] Lavinia Britton [facility] Internal Medicine Work Phone: Comment on above: Patient Position: Sitting; Cuff Location : Right Arm; Cuff Size: Standard 07-17-2007 10:05-0400 BP Systolic 102 mm[Hg] Lavinia Britton [facility] Internal Medicine Work Phone: Comment on above: Patient Position: Sitting; Cuff Location : Right Arm; Cuff Size: Standard 07-17-2007 10:05-0400 Head Circumference 0 cm Gia Fast [facility] Internal Medicine Work Phone: 07-17-2007 10:05-0400 Head Occipital-frontal circumference 0 cm Lavinia Britton [facility] Internal Medicine; [facility] Work Phone: 07-17-2007 10:05-0400 Height 0 cm Lavinia Britton [facility] Internal Medicine Work Phone: 07-17-2007 10:05-0400 Pulse (Heart Rate) 80 /min [facility] Work Phone: Comment on above: Pattern: Regular 07-17-2007 10:05-0400 Respiratory Rate 16 /min Lavinia Britton [facility] Internal Medicine Work Phone: Comment on above: Pattern: Undefined 07-17-2007 10:05-0400 Weight 56.7 kg Gia Fast [facility] Internal Medicine Work Phone: 06-13-2007 11:12-0400 Body Temperature 97.7 [degF] Lavinia Britton [facility] Internal Medicine Work Phone: Comment on above: Method: Undefined 06-13-2007 11:120400 Body weight 58.51 kg Lavinia Britton [facility] Internal Medicine Work Phone: 06-13-2007 11:12-0400 BP Diastolic 58 mm[Hg] Lavinia Britton [facility] Internal Medicine Work Phone: Comment on above: Patient Position: Sitting; Cuff Location : Right Arm; Cuff Size: Standard 06-13-2007 11:12-0400 BP Systolic 104 mm[Hg] Lavinia Quevedopallavi [facility] Internal Medicine Work Phone: Comment on above: Patient Position: Sitting; Cuff Location : Right Arm; Cuff Size: Standard 06-13-2007 11:12-0400 Head Circumference 0 cm [facility] Internal Medicine Work Phone: 06-13-2007 11:12-0400 Head Occipital-frontal circumference 0 cm Lavinia Reba [facility] Internal Medicine; [facility] Internal Medicine Work Phone: 06-13-2007 11:12-0400 Height 0 cm Lavinia Reba [facility] Internal Medicine Work Phone: 06-13-2007 11:12-0400 Pulse (Heart Rate) 80 /min Lavinia Colemanmannie [facility] Internal Medicine Work Phone: Comment on above: Pattern: Regular 06-13-2007 11:12-0400 Respiratory Rate 16 /min Lavinia Reba [facility] Internal Medicine Work Phone: Comment on above: Pattern: Undefined 06-13-2007 11:12-0400 Weight 58.51 kg [facility] Internal Medicine Work Phone: 06-05-2007 15:44-0400 Body weight 0 kg Kaley [facility] Internal Medicine Work Phone: 06-05-2007 15:44-0400 BP Diastolic 78 mm[Hg] [facility] Internal Medicine Work Phone: Comment on above: Patient Position: Sitting; Cuff Location : Left Arm; Cuff Size: Standard 06-05-2007 15:44-0400 BP Systolic 124 mm[Hg] [facility] Internal Medicine Work Phone: Comment on above: Patient Position: Sitting; Cuff Location : Left Arm; Cuff Size: Standard 06-05-2007 15:44-0400 Head Circumference 0 cm [facility] Internal Medicine Work Phone: 06-05-2007 15:44-0400 Head Occipital-frontal circumference [facility] Work Phone: 06-05-2007 15:44-0400 Height 0 [facility] Work Phone: 06-05-2007 15:44-0400 Pulse (Heart Rate) 68 /min [facility] Work Phone: Comment on above: Pattern: Regular 06-05-2007 15:44-0400 Respiratory Rate 16 /min [facility] Work Phone: Comment on above: Pattern: Unlabored 06-05-2007 15:44-0400 Weight 0 kg [facility] Internal Medicine Work Phone: 05-29-2007 11:08-0400 Body Temperature 97.8 [degF] [facility] Internal Medicine Work Phone: Comment on above: Method: Undefined 05-29-2007 11:08-0400 Body weight 0 kg [facility] Internal Medicine Work Phone: 05-29-2007 11:08-0400 BP Diastolic 84 mm[Hg] [facility] Internal Medicine Work Phone: Comment on above: Patient Position: Sitting; Cuff Location : Right Arm; Cuff Size: Standard 05-29-2007 11:08-0400 BP Systolic 142 mm[Hg] [facility] Internal Medicine Work Phone: Comment on above: Patient Position: Sitting; Cuff Location : Right Arm; Cuff Size: Standard 05-29-2007 11:08-0400 Head Circumference 0 cm [facility] Internal Medicine Work Phone: 05-29-2007 11:08-0400 Head Occipital-frontal circumference 0 cm [facility] Internal Medicine; [facility] Work Phone: 05-29-2007 11:08-0400 Height 0 cm [facility] Internal Medicine Work Phone: 05-29-2007 11:08-0400 Pulse (Heart Rate) 68 /min Lavinia Britton [facility] Medicine Work Phone: Comment on above: Pattern: Regular 05-29-2007 11:08-0400 Respiratory Rate 18 /min Lavinia Colemanmannie [facility] Internal Medicine Work Phone: Comment on above: Pattern: Undefined 05-29-2007 11:08-0400 Weight 0 kg Gia Grover [facility] Internal Medicine Work Phone: 05-04-2007 08:24-0500 BMI (Body Mass Index) 22.14 kg/m2 [facility]avinia Britton [facility] Internal Medicine Work Phone: 05-04-2007 08:24-0500 Body Temperature 96.9 [degF] Lavinia Qeuvedopallavi [facility] Internal Medicine Work Phone: Comment on above: Method: Undefined 05-04-2007 08:24-0500 Body weight 59.88 kg Lavinia Colemanmannie [facility] Internal Medicine Work Phone: 05-04-2007 08:24-0500 BP Diastolic 74 mm[Hg] Lavinia Britton [facility] Internal Medicine Work Phone: Comment on above: Patient Position: Sitting; Cuff Location : Left Arm; Cuff Size: Standard 05-04-2007 08:24-0500 BP Systolic 116 mm[Hg] Lavinia Colemanmannie [facility] Internal Medicine Work Phone: Comment on above: Patient Position: Sitting; Cuff Location : Left Arm; Cuff Size: Standard 05-04-2007 08:24-0500 BSA (Body Surface Area) 1.65 m2 Lavinia Quevedopallavi [facility] Internal Medicine Work Phone: 05-04-2007 08:24-0500 Head Circumference 0 cm Gia [employer] [facility] Internal Medicine Work Phone: 05-04-2007 08:24-0500 Head Occipital-frontal circumference 0 cm Lavinia Britton [facility] Internal Medicine; [facility] Internal Medicine Work Phone: 05-04-2007 08:24-0500 Height 164.47 cm Lavinia Britton [facility] Internal Medicine Work Phone: 05-04-2007 08:24-0500 Pulse (Heart Rate) 80 /min Lavinia Britton [facility] Medicine Work Phone: Comment on above: Pattern: Regular 05-04-2007 08:24-0500 Respiratory Rate 16 /min Lavinia Quevedopallavi [facility] Internal Medicine Work Phone: Comment on above: Pattern: Undefined 05-04-2007 08:24-0500 Weight 59.88 kg Gia [facility] Internal Medicine Work Phone: 05-03-2006 16:40-0500 BMI (Body Mass Index) 22.17 kg/m2 [facility] Work Phone: 05-03-2006 16:40-0500 Body Temperature 98.2 [degF] Lavinia Reba [facility] Internal Medicine Work Phone: Comment on above: Method: Oral 05-03-2006 16:40-0500 Body weight 59.96 kg Lavinia Reba [facility] Internal Medicine Work Phone: 05-03-2006 16:40-0500 BP Diastolic 76 mm[Hg] Lavinia Reba [facility] Internal Medicine Work Phone: Comment on above: Patient Position: Sitting; Cuff Location : Left Arm; Cuff Size: Standard 05-03-2006 16:40-0500 BP Systolic 128 mm[Hg] Lavinia Reba [facility] Internal Medicine Work Phone: Comment on above: Patient Position: Sitting; Cuff Location : Left Arm; Cuff Size: Standard 05-03-2006 16:40-0500 BSA (Body Surface Area) 1.65 m2 Lavinia Reba [facility] Internal Medicine Work Phone: 05-03-2006 16:40-0500 Head Circumference 0 cm [facility] Internal Medicine Work Phone: 05-03-2006 16:40-0500 Head Occipital-frontal circumference 0 cm Lavinia Britton [facility]; [facility] Work Phone: 05-03-2006 16:40-0500 Height 164.47 cm Lavinia Reba [facility] Work Phone: 05-03-2006 16:40-0500 Pulse (Heart Rate) 68 /min Lavinia Reba [facility] Work Phone: Comment on above: Pattern: Regular 05-03-2006 16:40-0500 Respiratory Rate 16 /min Lavinia Reba [facility] Work Phone: Comment on above: Pattern: Unlabored 05-03-2006 16:40-0500 Weight 59.96 kg Gia Grover [facility] Work Phone: 04-24-2006 09:15-0500 [...] Standard 04-24-2006 09:15-0500 Head Circumference 0 cm Gia Fast [facility] Work Phone: 04-24-2006 09:15-0500 Head Occipital-frontal circumference 0 cm Conchita Pollard RN [facility]; [facility] Work Phone: 04-24-2006 09:15-0500 Height 0 cm Conchita Pollard RN [facility] Work Phone: 04-24-2006 09:15-0500 Pulse (Heart Rate) 72 /min Conchita Mast RN [facility] Work Phone: Comment on above: Pattern: Irregular 04-24-2006 09:15-0500 Respiratory Rate 16 /min Conchita Pollard RN [facility] Work Phone: Comment on above: Pattern: Unlabored 04-24-2006 09:15-0500 Weight 60.33 kg Gia [facility] Internal Medicine Work Phone: 02-23-2006 09:58-0500 Body Temperature 97.4 [degF] [facility] Internal Medicine Work Phone: Comment on above: Method: Oral 02-23-2006 09:58-0500 Body weight 61.24 kg [facility] Internal Medicine Work Phone: 02-23-2006 09:58-0500 BP Diastolic 74 mm[Hg] [facility] Internal Medicine Work Phone: Comment on above: Patient Position: Sitting; Cuff Location : Undefined; Cuff Size: Undefined 02-23-2006 09:58-0500 BP Systolic 116 mm[Hg] [facility] Internal Medicine Work Phone: Comment on above: Patient Position: Sitting; Cuff Location : Undefined; Cuff Size: Undefined 02-23-2006 09:58-0500 Head Circumference 0 cm [facility] Internal Medicine Work Phone: 02-23-2006 09:58-0500 Head Occipital-frontal circumference 0 cm [facility] Internal Medicine; [facility] Internal Medicine Work Phone: 02-23-2006 09:58-0500 Height 0 cm [facility] Internal Medicine Work Phone: 02-23-2006 09:58-0500 Pulse (Heart Rate) 72 /min [facility] Internal Medicine Work Phone: Comment on above: Pattern: Regular 02-23-2006 09:58-0500 Respiratory Rate 17 /min [facility] Internal Medicine Work Phone: Comment on above: Pattern: Undefined 02-23-2006 09:58-0500 Weight 61.24 kg [facility] Internal Medicine Work Phone: 12-08-2005 11:31-0400 Body Temperature 98.2 [degF] Gia Fast [facility] Work Phone: Comment on above: Method: Tympanic 12-08-2005 11:31-0400 Body weight 60.33 kg Gia Fast [facility] Work Phone: 12-08-2005 11:31-0400 BP Diastolic 68 mm[Hg] Gia Fast [facility] Work Phone: Comment on above: Patient Position: Sitting; Cuff Location : Left Arm; Cuff Size: Standard 12-08-2005 11:31-0400 BP Systolic 132 mm[Hg] Gia Fast [facility] Work Phone: Comment on above: Patient Position: Sitting; Cuff Location : Left Arm; Cuff Size: Standard 12-08-2005 11:31-0400 Head Circumference 0 cm Gia Fast [facility] Work Phone: 12-08-2005 11:31-0400 Head Occipital-frontal circumference 0 cm Gia Fast DO Work Phone: [facility]; [facility] Work Phone: 12-08-2005 11:31-0400 Height 0 cm Gia Fast [facility] Work Phone: 12-08-2005 11:31-0400 Pulse (Heart Rate) 64 /min Gia Fast [facility] Work Phone: Comment on above: Pattern: Regular 12-08-2005 11:31-0400 Weight 60.33 kg Gia Fast [facility] Work Phone: Encounters Encounter Date Encounter Type Care Provider Facility Start: 11-30-2024 ambulatory Gia Grover Facility:[facility] Start: 11-20-2024 End: 11-20-[address] Gia Grover DO Work Phone: -[facility] Start: 11-20-2024 End: 11-20-[address] Gia Grover DO -[facility] Work Phone: Start: 11-20-2024 End: 11-20-2024 ambulatory Gia Fast Facility:[facility] Start: 10-11-2024 End: 10-11-[address] Kevin Rose MD -[facility] Start: 10-11-2024 End: 10-11-[address] Gia Grover DO Work Phone: -[facility] Start: 10-05-2024 End: 10-05-[address] Gia Grover DO Work Phone: -Laboratory Start: 10-05-2024 End: 10-05-[address] Gia Grover DO -Laboratory Work Phone: Start: 10-05-2024 End: 10-05-2024 ambulatory Gia Fast Facility:[facility] Start: 08-16-2024 End: 08-16-[address] Gia Grover DO Work Phone: [facility] Work Phone: Start: 08-16-2024 End: 08-16-[address] Gia Grover DO -Laboratory Work Phone: Start: 08-16-2024 End: 08-16-2024 ambulatory Gia Fast Facility:[facility] Start: 06-19-2024 End: 06-19-[address] Gia Grover DO Work Phone: [facility] Work Phone: Start: 06-19-2024 End: 06-19-[address] Gia Grover DO -Laboratory Work Phone: Start: 06-19-2024 End: 06-19-2024 ambulatory Gia Fast Facility:[facility] Start: 06-04-2024 End: 06-04-2024 Patient encounter procedure Myles QUINTANILLA -[facility] Work Phone: Start: 06-04-2024 End: 06-04-2024 ambulatory Gia Fast Facility:[facility] Start: 03-27-2024 End: 03-27-[address] Gia Grover DO -Radiology, [place] Work Phone: Start: 03-27-2024 End: 03-27-2024 ambulatory Gia Grover Facility:[facility] Start: 03-19-2024 End: 03-19-[address] Gia Grover DO -Laboratory Work Phone: Start: 03-19-2024 End: 03-19-2024 ambulatory Gia Fast Facility:[facility] Start: 01-11-2024 End: 01-11-2024 ambulatory Gia Fast Facility:[facility] Start: 06-09-2023 End: 06-09-[address] Gia Grover Work Phone: [facility] [facility] Work Phone: Start: 06-09-2023 End: 06-09-[address] Gia Grover Work Phone: [facility] Work Phone: Start: 03-17-2023 End: 03-17-[address] Gia Grover Work Phone: [facility] Work Phone: Start: 12-14-2022 End: 12-14-2022 Gia Grover DO Work Phone: [facility] Start: 12-02-2022 End: 12-02-2022 Gia Grover DO Work Phone: [facility] Start: 10-27-2022 End: 10-27-[address] Gia Grover Work Phone: [facility] Work Phone: Start: 10-27-2022 End: 10-27-[address] Gia Grover Work Phone: [facility]Out[facility] Bone Densitometry Work Phone: Start: 09-12-2022 End: 10-03-2022 Office outpatient visit 15 minutes Gia Grover DO Work Phone: [facility] Start: 09-12-2022 Gia Fast DO Work Phone: [facility] Start: 09-05-2022 End: 09-05-[address] Gia Grover Work Phone: [facility] Work Phone: Start: 09-02-2022 End: 09-02-[address] Gia Grover Work Phone: [facility] Work Phone: Start: 09-02-2022 End: 09-02-[address] Gia Grover Work Phone: [facility] Work Phone: Start: 08-24-2022 Non-patient / Non-visit Dr. Gia Grover Work Phone: [facility] Work Phone: Start: 06-07-2022 Gia Fast DO Work Phone: [facility] Start: 06-07-2022 End: 06-09-2022 Office outpatient visit 5 minutes Gia Fast DO Work Phone: [facility] Start: 06-03-2022 ambulatory Gia A Fast DO [facility] Start: 06-03-2022 End: 07-10-2022 Office outpatient visit 25 minutes Gia Fast DO Work Phone: [facility] Start: 06-03-2022 Gia Fast DO Work Phone: [facility] Start: 05-24-2022 End: 05-24-[address] Gia Grover Work Phone: [facility] Work Phone: Start: 05-24-2022 End: 05-24-[address] Gia Grover Work Phone: [facility] Start: 04-15-[address] [facility] Start: 03-25-[address] [facility] Work [facility] Start: 03-24-2022 End: 03-24-2022 Gia Grover DO Work Phone: [facility] Start: 03-16-2022 Non-patient / Non-visit Dr. Gia Grover Work Phone: [facility] Start: 03-16-2022 End: 03-16-[address] Gia Grover Work Phone: [facility] Work Phone: Start: 03-16-2022 End: 03-16-[address] [facility] Paez Phone: [facility] Start: 02-14-2022 End: 02-14-2022 Gia Grover DO Work Phone: [facility] Start: 02-14-2022 Non-patient / Non-visit Dr. Gia Grover Work Phone: [facility] Start: 02-14-2022 End: 02-14-[address] Gia Paez Phone: [facility] Work Phone: Start: 02-14-2022 End: 02-14-[address] G[facility] Paez Phone: [facility] Start: 01-13-2022 End: 01-13-[address] 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); Hiatal hernia Start: 12-13-2021 End: 12-13-2021 Office outpatient visit 5 minutes Gia Fast DO Work Phone: [facility] Start: 10-08-2021 End: 10-08-2021 Patient encounter procedure [facility] Breast Imaging Start: 09-10-2021 End: 10-12-2021 Office outpatient visit 25 minutes Gia Fast DO Work Phone: [facility] Start: 09-10-2021 Gia Fast DO Work Phone: [facility] Start: 09-02-2021 End: 09-02-2021 Patient encounter procedure [facility] Start: 06-21-2021 End: 06-21-2021 Office outpatient visit 5 minutes Gia Fast DO Work Phone: [facility] Start: 05-26-2021 End: 05-27-2021 Office outpatient visit 25 minutes Gia Fast DO Work Phone: [facility] Start: 05-17-2021 End: 05-17-2021 Patient encounter procedure [facility] Start: 01-15-2021 End: 01-20-2021 Office outpatient visit 25 minutes Gia Fast DO Work Phone: [facility] Start: 01-06-2021 End: 01-06-2021 ambulatory NESS TORIBIO [facility] Start: 01-04-2021 End: 01-04-2021 Office outpatient visit 5 minutes Gia Fast DO Work Phone: [facility] Start: 01-04-2021 End: 01-04-2021 Patient encounter status Gia Fast DO Work Phone: [facility] Start: 11-17-2020 End: 11-17-2020 Office outpatient visit 5 minutes Gia Fast DO Work Phone: [facility] Start: 11-02-2020 End: 11-02-2020 Office outpatient visit 25 minutes Gia Fast DO Work Phone: [facility] Start: 07-28-2020 End: 07-30-2020 Office outpatient visit 15 minutes Gia Fast DO Work Phone: [facility] Start: 07-28-2020 Review Gia Fast DO Work Phone: [facility] Start: 04-29-2020 End: 04-29-2020 Office outpatient visit 25 minutes Gia Fast [facility] Start: 03-31-2020 End: 04-01-2020 Office outpatient visit 15 minutes Gia Fast [facility] Start: 03-27-2020 End: 04-01-2020 Office outpatient visit 15 minutes Gia Fast [facility] Start: 03-25-2020 End: 03-26-2020 Office outpatient visit 15 minutes Gia Fast [facility] Start: 03-23-2020 End: 03-24-2020 Office outpatient visit 40 minutes Gia Fast [facility] Start: 03-13-2020 Review Gia Fast [facility] Start: 03-11-2020 End: 03-11-2020 Phone Encounter Gia Fast [facility] Start: 03-11-2020 End: 03-11-2020 Gia Fast DO Work Phone: [facility] Start: 03-10-2020 End: 03-31-2020 Phone Encounter Gia Fast [facility] Start: 03-10-2020 End: 03-31-2020 Gia Fast DO Work Phone: [facility] Start: 03-10-2020 Review Gia Fast [facility] Start: 03-10-2020 Review Gia Fast [facility] Start: 03-10-2020 End: 03-10-2020 Phone Encounter Gia Fast [facility] Start: 03-10-2020 End: 03-10-2020 Gia Fast DO Work Phone: [facility] Start: 03-09-2020 End: 03-10-2020 Office outpatient visit 15 minutes Gia Fast [facility] Start: 01-14-2020 End: 01-16-2020 Office outpatient visit 25 minutes Gia Fast [facility] Start: 01-14-2020 Review Gia Fast [facility] Start: 12-09-2019 End: 12-09-2019 Office outpatient visit 5 minutes Gia Fast [facility] Start: 09-18-2019 End: 09-19-2019 Office outpatient visit 25 minutes Gia Fast [facility] Start: 09-18-2019 Review Gia Fast [facility] Start: 08-20-2019 End: 08-20-2019 Phone Encounter Gia Fast [facility] Start: 08-20-2019 End: 08-20-2019 Gia Fast DO Work Phone: [facility] Start: 07-10-2019 End: 07-11-2019 Office outpatient visit 5 minutes Gia Fast [facility] Start: 06-18-2019 End: 06-18-2019 Office outpatient visit 25 minutes Gia Fast [facility] Start: 03-19-2019 End: 03-19-2019 Office outpatient visit 15 minutes Gia Fast [facility] Start: 01-30-2019 End: 06-18-2019 Office outpatient visit 25 minutes Gia Fast [facility] Start: 01-10-2019 End: 01-10-2019 Office outpatient visit 5 minutes Gia Fast [facility] Start: 10-29-2018 End: 10-29-2018 Office outpatient visit 25 minutes Gia Fast [facility] Start: 10-29-2018 Review Gia Fast [facility] Start: 08-14-2018 End: 08-14-2018 Annotation/Addendum Gia Fast [facility] Start: 08-14-2018 End: 08-14-2018 Gia Fast DO Work Phone: [facility] Start: 07-20-2018 End: 07-22-2018 Office outpatient visit 25 minutes Gia Fast [facility] Start: 07-20-2018 End: 07-22-2018 Patient encounter status Gia Fast DO Work Phone: [facility] Start: 07-09-2018 End: 07-09-2018 Office outpatient visit 5 minutes Gia Fast [facility] Start: 06-29-2018 End: 07-01-2018 Office outpatient visit 25 minutes Gia Fast [facility] Start: 06-01-2018 End: 06-03-2018 Office outpatient visit 25 minutes Gia Fast [facility] Start: 06-01-2018 [facility] Start: 04-02-2018 End: 04-02-2018 Phone Encounter Gia Fast [facility] Start: 04-02-2018 End: 04-02-2018 Gia Fast DO Work Phone: [facility] Start: 01-31-2018 End: 02-01-2018 Office outpatient visit 25 minutes Gia Fast [facility] Start: 01-04-2018 End: 01-04-2018 Office outpatient visit 5 minutes Gia Fast [facility] Start: 12-22-2017 End: 12-24-2017 Office outpatient visit 5 minutes Gia Fast [facility] Start: 09-27-2017 End: 11-12-2017 Office outpatient visit 25 minutes Gia Fast [facility] Start: 06-12-2017 End: 06-12-2017 Office outpatient visit 5 minutes Gia Fast [facility] Start: 05-26-2017 End: 05-26-2017 Office outpatient visit 25 minutes Gia Fast [facility] Start: 01-18-2017 End: 01-19-2017 Office outpatient visit 15 minutes Gia Fast [facility] Start: 12-30-2016 End: 12-30-2016 Office outpatient visit 5 minutes Gia Fast [facility] Start: 12-22-2016 End: 12-22-2016 Office outpatient visit 5 minutes Gia Fast [facility] Start: 09-14-2016 End: 10-21-2016 Office outpatient visit 15 minutes Gia Fast [facility] Start: 06-10-2016 End: 06-14-2016 Office outpatient visit 5 minutes Gia Fast [facility] Start: 04-15-2016 End: 04-17-2016 Office outpatient visit 25 minutes Gia Fast [facility] Start: 12-11-2015 End: 12-11-2015 Office outpatient visit 5 minutes Gia Fast [facility] Start: 09-11-2015 End: 09-14-2015 Office outpatient visit 25 minutes Gia Fast [facility] Start: 08-10-2015 End: 08-10-2015 Phone Encounter Gia Fast [facility] Start: 08-10-2015 End: 08-10-2015 Gia Fast DO Work Phone: [facility] Start: 06-11-2015 End: 06-11-2015 Office outpatient visit 5 minutes Gia Fast [facility] Start: 06-02-2015 End: 06-02-2015 Historical Summary Gia Fast [facility] Start: 06-02-2015 End: 06-02-2015 Gia Fast DO Work Phone: [facility] Start: 02-17-2015 End: 02-17-2015 Office outpatient visit 15 minutes Gia Fast [facility] Start: 12-10-2014 End: 12-10-2014 Office outpatient visit 5 minutes Gia Fast [facility] Start: 08-27-2014 End: 08-27-2014 Office outpatient visit 25 minutes Gia Fast [facility] Start: 08-27-2014 End: 08-27-2014 Patient encounter procedure Gia Fast DO Work Phone: [facility] Start: 06-17-2014 End: 06-17-2014 Office outpatient visit 5 minutes Gia Fast [facility] Start: 04-23-2014 End: 04-23-2014 Office outpatient visit 25 minutes Gia Fast [facility] Start: 08-02-2013 End: 08-02-2013 Patient encounter Gia Fast [facility] Start: 08-02-2013 End: 08-02-2013 Gia Fast DO Work Phone: [facility] Start: 03-22-2013 End: 03-24-2013 Patient encounter Gia Fast [facility] Start: 03-22-2013 End: 03-24-2013 Gia Fast DO Work Phone: [facility] Start: 02-13-2013 End: 02-14-2013 Patient encounter Rhea Perez [facility] Start: 02-13-2013 End: 02-14-2013 Gia Fast DO Work Phone: [facility] Start: 08-20-2012 End: 08-21-2012 Patient encounter Gia Fast [facility] Start: 08-20-2012 End: 08-21-2012 Gia Fast DO Work Phone: [facility] Start: 07-11-2012 End: 07-11-2012 Patient encounter Gia Fast [facility] Start: 07-11-2012 End: 07-11-2012 Gia Fast DO Work Phone: [facility] Start: 04-11-2012 End: 04-11-2012 Patient encounter Gia Fast [facility] Start: 04-11-2012 End: 04-11-2012 Gia Fast DO Work Phone: [facility] Start: 10-11-2011 End: 10-11-2011 Annotation/Addendum Gia Fast [facility] Start: 10-11-2011 End: 10-11-2011 Gia Fast DO Work Phone: [facility] Start: 10-10-2011 End: 10-11-2011 Annotation/Addendum Gia Fast [facility] Start: 10-10-2011 End: 10-11-2011 Gia Fast DO Work Phone: [facility] Start: 10-07-2011 End: 10-07-2011 Office outpatient visit 15 minutes Giaal Grover [facility] Start: 09-14-2011 End: 09-20-2011 Patient encounter Gia Fast [facility] Start: 09-14-2011 End: 09-20-2011 Gia Fast DO Work Phone: [facility] Start: 05-04-2011 End: 05-04-2011 Patient encounter Gia Fast [facility] Start: 05-04-2011 End: 05-04-2011 Gia Fast DO Work Phone: [facility] Start: 10-26-2010 End: 10-26-2010 Patient encounter Gia Fast [facility] Start: 10-26-2010 End: 10-26-2010 Gia Fast DO Work Phone: [facility] Start: 10-19-2010 End: 10-19-2010 Patient encounter Gia Fast [facility] Start: 10-19-2010 End: 10-19-2010 Gia Fast DO Work Phone: [facility] Start: 10-01-2010 End: 10-01-2010 Phone Encounter Gia Fast [facility] Start: 10-01-2010 End: 10-01-2010 Gia Fast DO Work Phone: [facility] Start: 09-28-2010 End: 09-28-2010 Office outpatient visit 25 minutes Gia Fast [facility] Start: 04-12-2010 End: 04-12-2010 Patient encounter Gia Fast [facility] Start: 04-12-2010 End: 04-12-2010 Gia Fast DO Work Phone: [facility] Start: 04-12-2010 End: 04-12-2010 Patient encounter Gia Fast [facility] Start: 04-12-2010 End: 04-12-2010 Gia Fast DO Work Phone: [facility] Start: 01-13-2010 End: 01-13-2010 Patient encounter Reina Estrada CMA [facility] Start: 01-13-2010 End: 01-13-2010 Gia Fast DO Work Phone: [facility] Start: 09-30-2009 End: 09-30-2009 Patient encounter Gia Fast [facility] Start: 09-30-2009 End: 09-30-2009 Gia Fast DO Work Phone: [facility] Start: 04-15-2009 End: 04-15-2009 Patient encounter Gia Fast [facility] Start: 04-15-2009 End: 04-15-2009 Gia Fast DO Work Phone: [facility] Start: 07-24-2008 End: 07-24-2008 Office outpatient visit 10 minutes Gia Fast [facility] Start: 07-16-2008 End: 07-16-2008 Patient encounter Gia Grover [facility] Start: 07-16-2008 End: 07-16-2008 Gia Fast DO Work Phone: [facility] Start: 04-30-2008 End: 04-30-2008 Patient encounter Gia Fast [facility] Start: 04-30-2008 End: 04-30-2008 Gia Fast DO Work Phone: [facility] Start: 01-22-2008 End: 01-22-2008 Office outpatient visit 15 minutes Gia Fast [facility] Start: 07-17-2007 End: 07-17-2007 Patient encounter Gia Fast [facility] Start: 07-17-2007 End: 07-17-2007 Gia Fast DO Work Phone: [facility] Start: 06-20-2007 End: 06-20-2007 Historical Summary Gia Fast [facility] Start: 06-20-2007 End: 06-20-2007 Gia Fast DO Work Phone: [facility] Start: 06-13-2007 End: 06-13-2007 Patient encounter Gia Reilly [facility] Start: 06-13-2007 End: 06-13-2007 Gia Fast DO Work Phone: [facility] Start: 06-05-2007 End: 06-05-2007 Patient encounter Gia Reilly [facility] Start: 06-05-2007 End: 06-05-2007 Gia Fast DO Work Phone: [facility] Start: 05-29-2007 End: 05-29-2007 Patient encounter Gia Reilly [facility] Start: 05-29-2007 End: 05-29-2007 Gia Fast DO Work Phone: [facility] Start: 05-04-2007 End: 05-04-2007 Patient encounter Gia Reilly [facility] Start: 05-04-2007 End: 05-04-2007 Gia Fast DO Work Phone: [facility] Start: 05-03-2006 End: 01-23-2007 Patient encounter Gia Reilly [facility] Start: 05-03-2006 End: 01-23-2007 Gia Fast DO Work Phone: [facility] Start: 04-24-2006 End: 04-24-2006 Error Encounter Gia Fast [facility] Start: 04-24-2006 End: 04-24-2006 Gia Fast DO Work Phone: [facility] Start: 04-24-2006 End: 04-24-2006 Patient encounter Gia Fast [facility] Start: 04-24-2006 End: 04-24-2006 Gia Fast DO Work Phone: [facility] Start: 03-23-2006 End: 03-23-2006 Nursing evaluation of patient and report Gia Grover [facility] Start: 03-23-2006 End: 03-23-2006 Gia Fast DO Work Phone: [facility] Start: 03-02-2006 End: 03-02-2006 Historical Summary Gia Grover [facility] Start: 03-02-2006 End: 03-02-2006 Gia Grover DO Work Phone: [facility] Start: 02-23-2006 End: 02-23-2006 Office outpatient visit 10 minutes Gia Grover [facility] Start: 01-09-2006 End: 01-09-2006 Historical Summary Gia Grover [facility] Start: 01-09-2006 End: 01-09-2006 Gia Grover DO Work Phone: [facility] Start: 12-08-2005 End: 12-08-2005 Office outpatient visit 25 minutes Gia Grover [facility] End: 08-10-2015 Patient encounter procedure Lavinia Britton [facility] Work Phone: End: 10-29-2018 Patient encounter status Reina Natalie [facility] Work Phone: Patient encounter status Reian Estrada [facility] Work Phone: Patient encounter status Reina Manprudencio [facility] Work Phone: End: 10-12-2021 Patient encounter status Gia Grover DO Work Phone: [facility] Work Phone: Procedures Date Procedure Procedure Detail Performing Clinician Start: 11-20-[address] Gia Grover DO Work Phone: Start: 11-20-2024 Dual energy X-ray absorptiometry Dr. Gia Grover DO Work Phone: Start: 10-11-2024 Plain x-ray of pelvis and lower extremity Dr. Gia Grover DO Work Phone: Start: 10-05-2024 Vitamin D, 25-hydroxy measurement Dr. Gia Grover DO Work Phone: Comment on above: Vitamin D StatusDeficiency: <20 ng/mL (5 0nmol/L)Insufficiency: 20-30 ng/mL (50-75 nmol/L)Sufficiency: 30-100 ng/mL (75-250 nmol/L)Toxicity: >100 ng/mL (>250 nmol/L) Start: 06-19-2024 Urine microalbumin/creatini ne ratio measurement Dr. 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 Gia Grover DO Work Phone: Start: 10-27-2022 End: 11-03-2022 Procedure Note: See Note; NOTES: [facility] Imaging Services [address] [place] [id number] Dexa Bone Density Study MR#: [id number] Acct: [id number] Name: BREANNA PURCELL Rep #: [id number] : 1940 F 82 From: Graham nix MD PCP: Dr. Gia Grover, DO Status: [facility] Study: Dexa Bone Density Study Date of Exam: 10/27/22 Exam# [id number] Ordering Dr: Gia Grover DO STUDY: DUAL ENERGY X-RAY ABSORPTIOMETRY [...] Signed: Graham Rivera MD at 15:42 EDT , CC: Dr. Gia Grover DO Health Care Marketing Specialist: Signed Gia Grover DO Work Phone: Start: 10-27-[address] Gia Grover Work Phone: Start: 10-27-2022 End: 10-28-2022 Procedure Note: See Note; NOTES: [facility] Imaging Services [address] [place] [address] SCRN MAMM (CAD)W/CHARLOTTE BILAT MR#: [id number] Acct: [id number] Name: BREANNA PURCELL Rep #: [id number] : 1940 F 82 From: Christian Gray DO PCP: Dr. Gia Grover DO Status: REG CLI Study: SCRN MAMM (CAD)W/CHARLOTTE BILAT Date of Exam: 10/05 06/26 Exam# [id number] Ordering Dr: Gia Grover DO MAMMOGRAPHY - BILATERAL SCREENING REASON [...] 8:23 EDT Reading Location ID and State: [facility] [place] Tel , Service support , CC: Dr. Gia Grover DO Health Care Marketing Specialist: Signed Gia Grover DO Work Phone: Start: 09-05-2022 End: 09-09-2022 Procedure Note: See Note; NOTES: [facility] [address] [place] [address] 12 Lead EKG performed by [facility] 09/05/22 1411 MR#: [id number] Acct: [id number] Name: BREANNA PURCELL Rep #: [id number] : 1940 82 From: Kevin Rose MD Attending Dr: Dr. Kevin Rose MD Status: DEP A MB Ordering Dr: Kevin Rose MD Date: 09/05/22 Location: [facility] Sex: F C Admitted: [facility]12 Lead EKG performed by [facility] Sinus Rhythm -Short WA syndrome Matheus = 112-RSR(V1) -nondiagnostic. -Left atrial enlargement. BORDERLINE 09/05/22 1609 <Electronically signed by Kevin Rose MD> Date __ Kevin Rose MD CC: Dr. Gia Grover DO Date Dictated: 09/05/221410 Date Transcribed: 09/05/221410 Health Care Marketing Specialist: [place] Signed Gia Grover DO Work Phone: Start: 09-05-2022 End: 09-05-2022 Procedure Note: See Note; NOTES: [facility] [address] [place] [address] OFFICE VISIT Date of Service: 09/05/22 MR#: [id number] Acct: [id number] Name: BREANNA PURCELL Rep #: [id number] : 1940 Provider: Dr. Kevin Rose MD Age/Sex: 82/F [facility] [facility] Status: Signed HPI HPI History of Present Illness Details: Pleasant 82-year-old lady with no previous cardiac history who is being evaluated for shortness of breath on an incline. She actually has seen the anthropology professor and no significant abnormalities have been noted [...] of ischemia. She has also seen the anthropology professor and no significant abnormalities have been noted. [...] 65 Pulse Source Monitor Intake Visit Reasons: KAROLINA (KULDEEP) Fruit Dumper Required: No Accompanied by: None Is patient [...] mg/mL subcutaneous syringe (Prolia) 60 mg subcut [id number] 09/05/22 [History Confirmed 09/05/22] furosemide 20 mg [...] lightheadedness and syncope (4 years ago in [place]); Negative for dizziness, near syncope, frequent falls, [...] Monitor 06/22/18 There were [place] 04667 beats recorded over the 24HR period. Normal [...] 1RF Plan Details Follow Up: 6 Months (kr) Coding Level of Care Code Off vis,new,level 4 Diagnoses Dyspnea on exertion R06.09 Coding Level of Care Code Off vis,new,level 4 Diagnoses Dyspnea on exertion R06.09 09/05/22 1455 <Electronically signed by Kevin Rose MD> Date __ Kevin Rose MD Cosigner Signature: Date __ (if applicable) CC: DO Gia Gonzalez DO Work Phone: Start: 04-15-2022 End: 04-15-2022 Procedure Note: See Note; NOTES: [facility] Physical Therapy [facility] [address] [place] [address] / REEVALUATION / MEDICARE RECERTIFICATION PHYSICAL THERAPY MR#: [id number] Acct: [id number] Name: BREANNA PURCELL Rep #: [id number] : 1940 81 From: Manohar Hodges DPT, OCS, CSCS Referring Dr.: Dr. Gia Grover DO Status:REG RCR Insurance: [facility] SELF PAY INSURANCE Dr. Gia Grover DO, It has been my pleasure [...] do not hesitate to contact me at [phone] by phone or if you have questions or concerns regarding this new plan of care! Sincerely, KENYON ValdezT, OCS, CSCS <Electronically signed by Manohar PRESCOTTT, OCS, CSCS> 04/15/22 1453 CC: Dr. Gia Grover DO EB Signed For Medicare only, by signing this I certify the plan of care. Physicians Signature Date Gia Grover DO Work Phone: Start: 03-18-2022 End: 03-18-2022 Procedure Note: See Note; NOTES: [facility] Physical Therapy [facility] [address] [place] [address]. [address] [place] [address] / REHABILITATION SERVICES INITIAL EVALUATION MR#: [id number] Acct: [id number] Name: BREANNA PURCELL Rep #: [id number] : 1940 81 From: Manohar Hodges DPT, OCS, CSCS Referring Dr.: Dr. Gia Grover DO Status: REG R CR Insurance: [facility] SELF PAY INSURANCE Patient's Visit Information BREANNA PURCELL is a 81 year old F referred to Physical Therapy by Dr. Gia Grover DO with a diagnosis of B hip pain. Date of Evaluation: 03/18/22 Physical Therapist: Manohar Hodges, DARRYL, OCS, CSCS - Visit Plan Frequency: 2x [...] to be FAXED BACK to us at [phone] for Medicare purposes. For Medicare only, by signing this I certify the plan of care. Please let me know if there are questions or concerns regarding this plan of care. Physician Signature: Date:__ <Electronically signed by Manohar Carroll DPT, OCS, CSCS> 03/18/22 1439 CC: Dr. Gia Grover DO EBG Signed Gia Grover DO Work Phone: Start: 03-16-2022 End: 03-16-2022 Procedure Note: See Note; NOTES: [facility] Cardiovascular Services [address] [place] [address] Echo Complete 03/16/22 1408 MR#: [id number] Acct: [id number] Name: BREANNA PURCELL Rep #: [id number] : 1940 81 From: Raul Acuna MD Attending Dr: Dr. Gia Grover, Status: REG CL I Ordering Dr: Gia Grover DO Date: 03/16/22 Location: [facility] Sex: F C Admitted: Reason For Study: [...] mmHg. Stage 2 diastolic dysfunction. Ordering Physician: Gia Grover Referring Physician: Gia Grover D.O. Performed By: Julianne Moran RCS 03/16/22 1627 Date __ Raul Acuna MD CC: Dr. Gia Grover, DO Date Dictated: 03/16/22 1408 Date Transcribed: 03/16/221626 Health Care Marketing Specialist: Signed Gia Grover DO Work Phone: Start: 02-14-2022 End: 02-14-2022 Procedure Note: See Note; NOTES: [facility] Cardi[facility] Services [address] [place] [address] MR#: [id number] Acct: [id number] Name: BREANNA PURCELL Rep #: [id number] : 1940 81 From: Kevin Rose MD Primary Care: Dr. Gia Grover DO Status: R EG CLI Referring Dr: [...] Date __ Kevin Rose MD CC: Dr. Gia Grover DO Date Dictated: 02/14/22938 Date Transcribed: 02/14/22938 Health Care Marketing Specialist: [place] Signed Gia Grover DO Work Phone: Start: 02-14-2022 Radionuclide imaging of perfusion of myocardium under exercise stress Dr. Gia Grover Work Phone: Start: 01-13-2022 X-ray of lumbosacral spine Dr. Gia Grover Work Phone: Start: 01-13-2022 End: 01-13-2022 Procedure Note: See Note; NOTES: [facility] Radiology [address] [place] [address] L/S Spine Min 4 Views MR#: [id number] Acct: [id number] Name: BREANNA PURCELL Rep #: [id number] : 1940 F 81 From: Spencer Mckeon PCP: Dr. Gia Grover DO Status: DEP AMB Study: L/S Spine Min 4 Views Date of Exam: 01/13/22 Exam# [id number] Ordering Dr: Gia Grover DO STUDY: X-RAY - LUMBAR SPINE [...] 16:51 EST Reading Location ID and State: [facility] / [place] , Service support , CC: Dr. Gia Grover DO Health Care Marketing Specialist: Signed Gia Grover DO Work Phone: Start: 01-13-2022 Plain x-ray of pelvis and lower extremity Dr. Gia Grover Work Phone: Start: 01-13-2022 End: 01-13-2022 Procedure Note: See Note; NOTES: [facility] Radiology [address] [place] [address] Hips B/L min 2 views w/ Pelvis MR#: [id number] Acct: [id number] Name: BREANNA PURCELL Rep #: [id number] : 1940 F 81 From: Spencer Mckeon PCP: Dr. Gia Grover DO Status: DEP AMB Study: Hips B/L min 2 views w/ Pelvis Date of Exam: 03/15/21 Exam# [id number] Ordering Dr: Gia Grover DO STUDY: X-RAY - PELVIS AND [...] IMPRESSION: No acute findings. Electronically Signed: Spencer aHwley MD at 16:51 EST Reading Location ID and State: [facility] / [place] , Service support , CC: Dr. Gia Grover DO Health Care Marketing Specialist: Signed Gia Grover DO Work Phone: Start: 10-08-2021 Screening mammography Start: 10-08-2021 End: 10-11-2021 Comments: See Note; NOTES: [facility] Imaging Services [address] [place] [address] SCRN MAMM (CAD)W/CHARLOTTE BILAT MR#: [id number] Acct: [id number] Name: BREANNA PURCELL Rep #: [id number] : 1940 F 81 From: Graham nix MD PCP: Dr. Gia Grover DO Status: REG CLI Study: SCRN MAMM (CAD)W/CHARLOTTE BILAT Date of Exam: 07/25 Exam# [id number] Ordering Dr: Gia Grover DO MAMMOGRAPHY - BILATERAL SCREENING REASON [...] delay biopsy of a clinically suspicious abnormality. [id number] Electronically Signed: Graham Rivera MD at 10:22 EDT Reading Location ID and State: [facility] / [place] , Service support , CC: Dr. Gia Grover DO Health Care Marketing Specialist: Signed Gia Grover DO Work Phone: Start: 04-06-2021 End: 04-06-2021 Cataract surgery Reina Estrada FUNCTIONAL SKILLS TUTOR Start: 09-02-2020 End: 09-02-2020 Comments: See Note; NOTES: [facility] Imaging Services [address] [place] [address] SCRN MAMM (CAD)W/CHARLOTTE BILAT MR#: [id number] Acct: [id number] Name: BREANNA PURCELL Rep #: [id number] : 1940 F 80 From: Graham nix MD PCP: Dr. iGa Grover, DO Status: [facility] Study: SCRN MAMM (CAD)W/CHARLOTTE BILAT Date of Exam: 08/06 Exam# [id number] Ordering Dr: Gia Grover DO MAMMOGRAPHY - BILATERAL SCREENING REASON [...] delay biopsy of a clinically suspicious abnormality. [id number] Electronically Signed: Graham Rivera MD at 12:44 EDT , Service support , CC: Dr. Gia Grover DO Health Care Marketing Specialist: Signed Gia Grover DO Work Phone: Start: 04-29-2020 End: 04-29-2020 Shoulder min 2 Views Comments: See Note; NOTES: [facility] Radiology [address] [place] [address] Shoulder min 2 Views MR#: [id number] Acct: [id number] Name: BREANNA PURCELL Rep #: [id number] : 1940 F 79 From: Aris garcia MD PCP: Dr. Gia Grover DO Status: DEP AMB Study: Shoulder min 2 Views Date of Exam: 04/29/20 Exam# [id number] Ordering Dr: Gia Grover DO STUDY: X-RAY - LEFT SHOULDER [...] EST , Service support , CC: Dr. Gia Grover DO Health Care Marketing Specialist: Signed Gia Grover DO Work Phone: Start: 04-21-2020 End: 04-21-2020 Dexa Bone Density Study Comments: See Note; NOTES: [facility] Imaging Services [address] [place] [address] Dexa Bone Density Study MR#: [id number] Acct: [id number] Name: BREANNA PURCELL Rep #: [id number] : 1940 F 79 From: Graham nix MD PCP: Dr. Gia Grover DO Status: REG CLI Study: Dexa Bone Density Study Date of Exam: 04/21/20 Exam# [id number] Ordering Dr: Gia Grover DO STUDY: DUAL ENERGY X-RAY ABSORPTIOMETRY [...] EST , Service support , CC: Dr. Gia Grover DO Health Care Marketing Specialist: Signed Gia Grover Work Phone: Start: 03-23-2020 End: 03-24-2020 Chest PA and Lateral Comments: See Note; NOTES: [facility] Imaging Services [address] [place] [address] Chest PA and Lateral MR#: [id number] Acct: [id number] Name: BREANNA PURCELL Rep #: [id number] : 1940 F 79 From: Nadja lara MD PCP: Dr. Gia Grover DO Status: REG CLI Study: Chest PA and Lateral Date of Exam: 03/23/20 Exam# [id number] Ordering Dr: Gia Grover DO HISTORY: PT WAS IN THE [...] Tel , Service support , CC: Dr. Gia Grover DO Health Care Marketing Specialist: Signed Gia Grover Work Phone: Start: 03-12-2020 End: 03-12-2020 Surgery Visit Report Comments: See Note; NOTES: [facility] [address] [place] [address] OFFICE VISIT Date of Service: 03/12/20 MR#: [id number] Acct: [id number] Name: BREANNA PURCELLBETH Rep #: [id number] : 1940 Provider: Dr. Jason chiang MD Age/Sex: 79/F Location: [facility] Status: Signed Intake Intake Visit Reasons: Upper/Lower Scope Abdominal Pain Allergies No Known Allergies Allergy (Verified 03/12/20 13:40) [facility] Medical History (Updated 03/12/20 @ 13:48 by [...] imaging. The patient is referred by Dr. Gia Grover and a written copy my surgical consult and recommendations will be returned to her. 79-year-old female. She had acute onset of abdominal pain on March 09. She presented to the emergency room. A noncontrasted CT scan of the abdomen was obtained. This was nondiagnostic however there was a question eric as to whether contrast should be administered. Therefore yesterday Dr. Gia Grover obtained a contrasted CT. That suggests [...] have a few benign fundic gland polyps. [facility] Imaging Services [address] [place] [address] Abdomen/Pel W ORAL Cont Only MR#: [id number]:[id number] Name: BREANNA PURCELLroz #:[id number] : 1940F 79 From: Noah Porras MD PCP:Dr. Gia Grover, DO Status:REG CLI Study:Abdomen/Pel W ORAL Cont Only Date of Exam:03/10/20 Exam#[id number] Ordering Dr: Gia Grover DO STUDY: CT ABDOMEN AND PELVIS [...] follow her throughout her stay. Copy: Dr. Gia Madrigal M.D., F.A.C.S. Orders Orders: Colonoscopy Today EGD Today Coding Level of Care Code Attention Cable Installer Repairer Diagnoses Generalized abdominal pain R10.84 ?Abdominal location: generalized Diarrhea, unspecified type R19.7 ?Diarrhea type: unspecified type Tachycardia R00.0 Dehydration E86.0 Enterocolitis K52.9 Comment Admission consult to be submitted 03/12/20 1401 <Electronically signed by Jason Madrigal MD> Date __ Jason Madrigal MD Cosigner Signature: Date __ (if applicable) CC: DO Gia Gonzalez Start: 03-10-2020 End: 03-13-2020 Abdomen/Pel W ORAL Cont Only Comments: See Note; NOTES: [facility] Imaging Services [address] [place] [address] Abdomen/Pel W ORAL Cont Only MR#: [id number] Acct: [id number] Name: BREANNA PURCELL Rep #: [id number] : 1940 F 79 From: Noah bledsoe MD PCP: Dr. Gia Grover DO Status: REG CLI Study: Abdomen/Pel W ORAL Cont Only Date of Exam: 07/24 Exam# [id number] Ordering Dr: Gia Grover DO STUDY: CT ABDOMEN AND PELVIS [...] EST , Service support , CC: Dr. Gia Grover DO Health Care Marketing Specialist: Signed Gia Grover Work Phone: Start: 03-09-2020 End: 03-09-2020 Emergency Department Summary Comments: See Note; NOTES: [facility] Medical Records Department [address] [place] [address] Emergency Department Summary 03/09/20 MR#: [id number] Acct: [id number] Name: BREANNA PURCELL Rep #: [id number] : 1940 79 From: Ac Gill MD PCP: Dr. Gia Grover DO Status:DEP ER History of Present [...] Allergy (Verified 03/09/20 17:32) Primary Care Physician: Gia Grover DO [Primary Care Provider] - Prior [...] 84.1 H Lymph % (Auto) 8.1 L [place] % (Auto) 6.7 Eos % (Auto) 0.2 [...] I feel this is reasonable. I did benefits counselor her that if her symptoms worsen [...] tab PRN Reason: Nausea Prescription Printed Referrals: Gia Grover DO [Primary Care Provider] - What to do if you have Problems For any increased pain, shortness of breath, bleeding, nausea or vomiting, chest pain, or any unexpected problems, contact your Primary Care Provider. Call [facility] ([phone]) or report to the closest Emergency Room. Call 911 if necessary. 03/09/20 2302 <Electronically signed by Ac Gill MD> Date __ Ac Gill MD Cosigner Signature (If Indicated): Date CC: DO Gia Gonzalez Start: 03-09-2020 End: 03-09-2020 Abdomen/Pelvis W IV Cont ONLY Comments: See Note; NOTES: [facility] Imaging Services [address] [place] [address] Abdomen/Pelvis W IV Cont ONLY MR#: [id number] Acct: [id number] Name: BREANNA PURCELL Rep #: [id number] : 1940 F 79 From: Noah bledsoe MD PCP: Dr. Gia Grover, DO Status: PRE ER Study: Abdomen/Pelvis W IV Cont ONLY Date of Exam: Exam# [id number] Ordering Dr: Ac Gill MD STUDY: CT [...] EST , Service support , CC: Dr. Gia Grover DO; Dr. Ac Gill MD Health Care Marketing Specialist: Signed Gia Grover Start: 09-02-2019 End: 09-03-2019 SCREEN MAMM (CAD) W/CHARLOTTE BILAT Comments: See Note; NOTES: [facility] Imaging Services [address] [place] [address] SCREEN MAMM (CAD) W/CHARLOTTE BILAT MR#: [id number] Acct: [id number] Name: BREANNA PURCELL Rep #: [id number] : 1940 F 79 From: Graham nix MD PCP: Dr. Gia Grover DO Status: PRE CLI Study: SCREEN MAMM (CAD) W/CHARLOTTE BILAT Date of Exam: 0 09/02/19 Exam# [id number] Ordering Dr: Gia Grover DO MAMMOGRAPHY - BILATERAL SCREENING REASON [...] delay biopsy of a clinically suspicious abnormality. [id number] Electronically Signed: Graham Rivera, at 8:56 EDT , Service support , CC: Dr. Gia Grover DO Health Care Marketing Specialist: Signed Gia Grover Work Phone: Start: 03-19-2019 End: 03-20-2019 Chest PA and Lateral Comments: See Note; NOTES: [facility] Imaging Services [address] [place] [address] Chest PA and Lateral MR#: [id number] Acct: [id number] Name: BREANNA PURCELL Rep #: [id number] : 1940 F 78 From: Fahad De La Torre MD PCP: Gia Grover DO Status: REG CLI Study: Chest PA and Lateral Date of Exam: 03/19/19 Exam# [id number] Ordering Dr: Gia Grover DO STUDY: X-RAY CHEST REASON FOR [...] EST Tel , Service support , CC: Gia Grover DO Health Care Marketing Specialist: Signed Gia Grover Work Phone: Start: 03-12-2019 End: 03-12-2019 Pulmonary Function Report Comp Comments: See Note; NOTES: [facility] Pulmonary Services/Neurology [address] [place] [address] MR#: [id number] Acct: [id number] Name: BREANNA PURCELL Rep #: [id number] : 1940 78 From: Wally Lerma MD Referring Dr: Gia Grover DO Status: REG CLI Location: [facility] Date: 03/12/19 Sex: F C COMPLETE PULMONARY FUNCTION TEST INTERPRETATION Brief HPI: Patient is a 78 year old female, currently under the care of Dr. Grover, who presents to [facility] for complete pulmonary function tests secondary to [...] Wally Lerma MD CC: Wally Lerma MD; Gia Grover DO Date Dictated: 03/12/191654 Date Transcribed: 03/12/191654 Health Care Marketing Specialist: PEE Signed Gia Grover Start: 08-29-2018 End: 08-31-2018 SCREEN MAMM (CAD) W/CHARLOTTE BILAT Comments: See Note; NOTES: [facility] Imaging Services [address] [place] [address] SCREEN MAMM (CAD) W/CHARLOTTE BILAT MR#: [id number] Acct: [id number] Name: BREANNA PURCELL Rep #: [id number] : 1940 F 77 From: Valerie Mahmood MD PCP: Gia Grover DO Status: DEP CLI Study: SCREEN MAMM (CAD) W/CHARLOTTE BILAT Date of Exam: 08/29/18 Exam# [id number] Ordering Dr: Gia Grover DO MAMMOGRAPHY - BILATERAL SCREENING 3-D [...] 15:50 EDT , Service support , CC: Gia Grover DO Health Care Marketing Specialist: Signed Gia Grover Work Phone: Start: 07-10-2018 End: 07-11-2018 Brain W/WO Contrast Comments: See Note; NOTES: [facility] Imaging Services [address] [place] [address] Brain W/WO Contrast MR#: [id number] Acct: [id number] Name: BREANNA PURCELL Rep #: [id number] : 1940 F 77 From: Arin Wagoner MD PCP: Gia Grover DO Status: REG CLI Study: Brain W/WO Contrast Date of Exam: 07/10/18 Exam# [id number] Ordering Dr: Gia Grover DO STUDY: MRI BRAIN WITH AND [...] 9:15 EDT , Service support , CC: Gia Grover DO Health Care Marketing Specialist: Signed Gia Grover Work Phone: Start: 07-06-2018 End: 07-06-2018 Stress Report Comments: See Note; NOTES: [facility] Cardiovascular Services [address] [place] [address] MR#: [id number] Acct: [id number] Name: BREANNA PURCELL Rep #: [id number] : 1940 77 From: Raul Acuna MD Primary Care: Gia Grover DO Status: REG CLI Referring Dr: Gia Grover DO Sex: F C Stress Test [...] 85 %. This note was generated with Airsynergyation software. It may contain incorrect words, spelling, and punctuation that were not noted in checking the note before signing. 07/06/18 0938 <Electronically signed by Raul Acuna MD> Date __ Raul Acuna MD CC: Gia Grover DO Date Dictated: 07/06/18933 Date Transcribed: 07/06/18933 Health Care Marketing Specialist: PM Signed Gia Grover Start: 06-19-2018 End: 06-19-2018 Echocardiogram Complete Comments: See Note; NOTES: [facility] Cardiovascular Services [address] [place] [address] Echo Complete 06/19/18 1307 MR#: [id number] Acct: [id number] Name: BREANNA PURCELL Rep #: [id number] : 1940 77 From: Raul Acuna MD Attending Dr: Gia Grover DO Status: REG CLI Ordering Dr: Gia Grover DO Date: 06/19/18 Location: [facility] Sex: F C Admitted: Reason For Study: [...] mmHg. Diastolic function is indeterminate. Ordering Physician: Gia Grover Referring Physician: Gia Grover Performed By: Terry Epps RCS 06/19/18 1738 Date __ Raul Acuna MD CC: Gia Grover DO Date Dictated: 06/19/18 1307 Date Transcribed: 06/19/18 1738 Health Care Marketing Specialist: Signed Gia Grover Work Phone: Start: 04-17-2018 End: 04-18-2018 Dexa Bone Density Study Comments: See Note; NOTES: [facility] Imaging Services [address] [place], [place] [address] [address] Dexa Bone Density Study MR#: [id number] Acct: [id number] Name: BREANNA PURCELL Rep #: [id number] : 1940 F 77 From: Graham Rivera MD PCP: Gia Grover DO Status: REG CLI Study: Dexa Bone Density Study Date of Exam: 04/17/18 Exam# [id number] Ordering Dr: Gia Grover DO STUDY: DUAL ENERGY X-RAY ABSORPTIOMETRY [...] 12:46 EST , Service support , CC: Gia Grover DO Health Care Marketing Specialist: Signed Gia Grover Work Phone: Start: 10-13-2017 End: 10-13-2017 TXT - Blood Flow Screening Comments: See Note; NOTES: [facility] Cardiovascular Services [address] [place], [place] [address] [address] 10/13/17 0847 MR#: [id number] Acct: [id number] Name: BREANNA PURCELL Rep #: [id number] : 1940 77 From: Addi Lorenzana MD Attending Dr: Gia Grover DO Status: REG REF Ordering Dr: Date: 10/13/17 Location: [facility] Sex: F C Admitted: Reason For Study: [...] is normal (1.0 or greater). .rdering Physician: Gia Grover D.O Performed By: Selam Luna RVT 10/13/17 1401 Date __ Addi Lorenzana MD CC: Gia Grover DO Date Dictated: 10/13/17 0847 Date Transcribed: 10/13/17 1401 Health Care Marketing Specialist: Signed Gia Grover Start: 08-24-2017 End: 08-25-2017 SCREENING MAMM (CAD), BILAT Comments: See Note; NOTES: [facility] Imaging Services [address] [place] [address] SCREENING MAMM (CAD), BILAT MR#: [id number] Acct: [id number] Name: BREANNA PURCELL Rep #: [id number] : 1940 F 76 From: Graham Rivera MD PCP: Gia Grover DO Status: REG CLI Study: SCREENING MAMM (CAD), BILAT Date of Exam: 08/24/17 Exam# [id number] Ordering Dr: Gia Grover DO MAMMOGRAPHY - BILATERAL SCREENING REASON [...] delay biopsy of a clinically suspicious abnormality. [id number] Electronically Signed: Graham Rivera MD at 8:04 EDT Tel [phone], Service support , CC: Gia Grover DO Health Care Marketing Specialist: Signed Gia Grover Work Phone: Start: 08-22-2016 End: 08-22-2016 SCREENING MAMM (CAD), BILAT Comments: See Note; NOTES: [facility] Imaging Services [address] [place] [address] Verdana 4d SCREENING MAMM (CAD), BILAT MR#: [id number] Acct: [id number] Name: BREANNA PURCELL [place]by Rep #: [id number] : 1940 F 75 From: Graham Rivera MD PCP: Gia Grover DO Status: REG CLI Study: SCREENING MAMM (CAD), BILAT Date of Exam: 08/22/16 Exam# [id number] Ordering Dr: Gia Grover DO MAMMOGRAPHY - BILATERAL SCREENING REASON [...] delay biopsy of a clinically suspicious abnormality. [id number] Electronically Signed: Graham Rivera MD at 13:06 EDT Tel [phone], Service support , CC: Gia Grover DO Health Care Marketing Specialist: Signed Gia Grover Work Phone: Start: 04-13-2016 End: 04-13-2016 Dexa Bone Density Study () Comments: See Note; NOTES: [facility] Imaging Services [address] [place] [address] Verdana 4d Dexa Bone Density Study () MR#: [id number] Acct: [id number] Name: BREANNA PURCELL Rep #: [id number] : 1940 F 75 From: Graham Rivera MD PCP: Gia Grover DO Status: [facility] CLI Study: Dexa Bone Density Study () Date of Exam: 04/13/16 Exam# [id number] Ordering Dr: Gia Grover DO STUDY: DUAL ENERGY X-RAY ABSORPTIOMETRY [...] Graham Rivera MD at 13:03 EST Tel [phone], Service support [phone], CC: Gia Grover DO Health Care Marketing Specialist: Signed Gia Grover Work Phone: Start: 08-21-2015 End: 08-21-2015 Bilat Scrn Digital AND CAD Comments: See Note; NOTES: [facility] Imaging Services [address] [place] [address] Verdana 4d Bilat Scrn Digital AND CAD MR#: [id number] Acct: [id number] Name: BREANNA PURCELL Rep #: [id number] : 1940 F 74 From: Graham Rivera MD PCP: Gia Grover DO Status: REG CLI Study: Bilat Scrn Digital AND CAD Date of Exam: 08/21/15 Exam# [id number] Ordering Dr: Gia Grover DO MAMMOGRAPHY - BILATERAL SCREENING REASON [...] delay biopsy of a clinically suspicious abnormality. [id number] Electronically Signed: Graham Rivera MD at 14:44 EDT Tel [phone], Service support [phone], CC: Gia Grover DO Health Care Marketing Specialist: Signed Gia Grover Work Phone: Start: 04-07-2015 End: 04-07-2015 PT D/C Summary (1) Comments: See Note; NOTES: [facility] Physical Therapy [facility] [address] [place] [address]. [address] [place], [place] [address] Fax REHABILITATION SERVICES DISCHARGE SUMMARY MR#: [id number] Acct: [id number] Name: BREANNA PURCELL Rep #: [id number] : 1940 74 From: Hussain Barraza PT, Cert. T Referring DrAshanti: Gia Grover DO Status: REG RCR Eval Date: Discharge Date: - PT D/C Summary It has been my pleasure to treat BREANNA PURCELL under orders from Gia Grover, for the diagnosis of low back [...] please feel free to call me at [phone]. Thank you for the referral of this patient. Sincerely, Hussain Barraza <Electronically signed by Hussain Barraza PT, Cert. MDT> 04/07/15 1139 CC: Gia Grover DO Signed Gia Grover Start: 03-03-2015 End: 03-03-2015 Inital Evaluation - PT Comments: See Note; NOTES: [facility] [place] [id number] [facility] [place] [address] Fax REHABILITATION SERVICES INITIAL EVALUATION MR#: [id number] Acct: [id number] Name: BERANNA PURCELL Rep #: [id number] : 1940 74 From: Hussain Barraza Referring DrAshanti: Gia Grover DO Status: REG RCR Insurance: AENA [facility] Date: Patient's Visit Information BREANNA PURCELL is a 74 year old F, referred to Physical Therapy by Gia Grover,, with a diagnosis of low back [...] to be FAXED BACK to us at [phone] for Medicare purposes. Please let me know if there are questions or concerns regarding this plan of care. Physician Signature: Date:__ <Electronically signed by Hussain Barraza > 03/03/15 0948 CC: Gia Grover DO Signed For Medicare only, by signing this I certify the plan of care. Physicians Signature Date Gia Grover Start: 02-17-2015 End: 02-17-2015 Hip min 2 Views Comments: See Note; NOTES: [facility] Imaging Services [address] [place] [address] Verdana 4d Hip min 2 Views MR#: [id number] Acct: [id number] Name: BREANNA PURCELL Gabby Rep #: [id number] : 1940 F 74 From: Benitez Vance MD PCP: Gia Grover DO Status: REG CLI Study: Hip min 2 Views Date of Exam: 02/17/15 Exam# [id number] Ordering Dr: Gia Grover DO STUDY: X-RAY - RIGHT HIP [...] FACR at 19:39 EST , Service support [phone], RAD/Hip min 2 Views IMPRESSION: Small subchondral cysts in the acetabulum. No other significant degenerative changes noted Electronically Signed: Benitez Vance MD, FACR at 19:39 EST , Service support [phone], CC: Gia Grover DO Health Care Marketing Specialist: Signed Gia Grover Work Phone: Start: 02-17-2015 End: 02-17-2015 L/S Spine Min 4 Views Comments: See Note; NOTES: [facility] Imaging Services [address] [place] [id number] [place] [address] 4d L/S Spine Min 4 Views MR#: [id number] Acct: [id number] Name: BREANNA PURCELL Rep #: [id number] : 1940 F 74 From: Benitez Vance MD PCP: Gia Grover DO Status: REG CLI Study: L/S Spine Min 4 Views Date of Exam: 02/17/15 Exam# [id number] Ordering Dr: Gia Grover DO STUDY: X-RAY - LUMBAR SPINE [...] FACR at 19:56 EST , Service support [phone], RAD/L/S Spine Min 4 Views IMPRESSION: Mild levoscoliosis. Minor degenerative changes. Osteopenia. Mild degenerative disc disease at L4-5 Electronically Signed: Benitez Vance MD, FACR at 19:56 EST , Service support [phone], CC: Gia Grover DO Health Care Marketing Specialist: Signed Gia Grover Work Phone: Start: 08-18-2014 End: 08-18-2014 Bilat Scrn Digital AND CAD Comments: See Note; NOTES: [facility] Imaging Services [address] [place] [address] Breast Imaging Report MR#: [id number] Acct: [id number] Name: BREANNA PURCELL Rep #: [id number] : 1940 F 73 From: Graham Rivera MD PCP: Gia Grover DO Status: REG CLI Study: Bilat Scrn Digital AND CAD Date of Exam: 08/18/14 Exam# [id number] Ordering Dr: Gia Grover DO MAMMOGRAPHY - BILATERAL SCREENING REASON [...] Graham Rivera MD at 10:42 EDT Tel [phone], Service support [phone], CC: Gia Grover DO Health Care Marketing Specialist: Signed Gia Grover Work Phone: Start: 04-08-2014 End: 04-08-2014 Dexa Bone Density Study (HP) Comments: See Note; NOTES: [facility] Imaging Services [address] [place] [address] Bone Density Report MR#: [id number] Acct: [id number] Name: BREANNA PURCELL Rep #: [id number] : 1940 F 73 From: Graham Rivera MD PCP: Gia Grover DO Status: [facility] CLI Study: Dexa Bone Density Study (HP) Date of Exam: 04/08/14 Exam# [id number] Ordering Dr: Gia Grover DO STUDY: DUAL ENERGY X-RAY ABSORPTIOMETRY [...] Graham Rivera MD at 14:52 EST Tel [phone], Service support [phone], CC: Gia Grover DO Health Care Marketing Specialist: Signed Gia Grover Work Phone: Start: 08-16-2013 End: 08-16-2013 Bilat Scrn Digital & CAD Comments: See Note; NOTES: [facility] Imaging Services [address] [place] [address] Breast Imaging Report MR#: [id number] Acct: [id number] Name: BREANNA PURCELL Rep #: [id number] : 1940 F 72 From: Graham Rivera MD PCP: Gia Grover DO Status: REG CLI Exam# [id number] Ordering Dr: Gia Grover DO MAMMOGRAPHY - BILATERAL SCREENING REASON [...] Graham Rivera MD at 13:57 EDT Tel [phone], Service support [phone], CC: Gia Grover DO Health Care Marketing Specialist: Signed Gia Grover Work Phone: Start: 02-15-2013 End: 02-15-2013 Transvaginal Non- Comments: See Note; NOTES: [facility] Imaging Services [address] [place] [address] Ultrasound Report MR#: [id number] Acct: [id number] Name: BREANNA PURCELL Rep #: [id number] : 1940 F 72 From: Regulo Yuen MD PCP: Gia Grover DO Status: REG CLI Study: Pelvic (Non ) Date of Exam: 02/15/13 Exam# [id number]; [id number] Ordering Dr: Gia Grover DO STUDY: ULTRASOUND OF THE FEMALE [...] at 22:37 EST Tel , Service support [phone], CC: Gia Grover DO Health Care Marketing Specialist: Signed Gia Grover Work Phone: Start: 02-15-2013 End: 02-15-2013 Pelvic (Non ) Comments: See Note; NOTES: [facility] Imaging Services [address] [place] [address] Ultrasound Report MR#: [id number] Acct: [id number] Name: BREANNA PURCELL Rep #: [id number] : 1940 F 72 From: Regulo Yuen MD PCP: Gia Grover DO Status: REG CLI Study: Pelvic (Non ) Date of Exam: 02/15/13 Exam# [id number]; [id number] Ordering Dr: Gia Grover DO STUDY: ULTRASOUND OF THE FEMALE [...] at 22:37 EST Tel , Service support [phone], CC: Gia Grover DO Health Care Marketing Specialist: Signed Gia Grover Work Phone: Plan of Treatment Date Care Activity Detail Author Start: 10-11-2024 Plain x-ray of pelvi s and lower extremity HIP, UNI W/ Pelvis 2-3 Views [facility] Start: 10-27-2022 Dual energy X-ray absorptiometry Dexa Bone Density Study [facility] Start: 09-12-2022 Procedure Education Com prehensive Internal [...] Phone: Start: 11-04-2021 Influenza vaccination INFLUENZA (#1) [facility] Start: 09-10-2021 Procedure Education Com prehensive Internal [...] Phone: Start: 06-19-2021 DIABETES SCREEN DIABETES SCREEN [facility] Start: 05-26-2021 Procedure Education Com prehensive Internal [...] VACCINE (4 - Booster for Moderna series) [facility] Start: 03-06-2021 ADVANCE DIRECTIVE DISCUSSION ADVANCE DIRECTIVE DISCUSSION [facility] Start: 03-06-2021 DEPRESSION ASSESSMENT DEPRESSION ASS ESSMENT [facility] Start: 01-15-2021 Procedure Education Com prehensive Internal [...] 07-04-2020 HbA1c (Bld) [Mass fraction] HGB A1C (10169) [facility]; [facility] Work [...] 04-29-2020 CBC, PLATELETS & MAN UAL DIFF (83495) [facility]; [facility] Work Phone: Comment on above: june Start: 03-23-2020 Procedure Education [facility]; [facility] Work Phone: Start: 03-23-2020 Provider Instruction s for Treatment [facility]; [facility] Work Phone: Start: 03-09-2020 Culture bct isol&prs mptv id isolate ea urine URINE TORIE CULTURE-IDENTIFICATN (03111) [facility]; [facility] Work [...] 01-14-2020 HbA1c (Bld) [Mass fraction] HGB A1C (73216) [facility] Work Phone: Start: 01-14-2020 Hemoglobin glycosyla lola a1c [facility]; [facility] Work Phone: Start: 09-18-2019 Procedure Education Com [facility] Work Phone: Start: 09-18-2019 Comprehensive metabo lic panel METABOLIC PANEL, COMPREHENSIVE (90177) [facility] Work Phone: Start: 09-18-2019 Blood count complete auto&auto difrntl wbc CBC W/AUTO DIFF WBC (51165) [facility] Work Phone: Start: 06-18-2019 [...] 06-18-2019 HbA1c (Bld) [Mass fraction] HGB A1C (78355) [facility] Work Phone: Start: 06-18-2019 [...] 03-19-2019 HbA1c (Bld) [Mass fraction] HGB A1C (33119) [facility] Work Phone: Start: 03-19-2019 Hemoglobin glycosyla lola a1c [facility]; [facility] Work Phone: Start: 03-19-2019 Procedure Education [facility] Work Phone: Start: 01-30-2019 Procedure Education Com [facility] Work Phone: Start: 10-29-2018 Procedure Education Com [facility] Work Phone: Start: 10-29-2018 Comprehensive metabo lic panel METABOLIC PANEL, COMPREHENSIVE (13254) [facility] Work Phone: Start: 10-29-2018 Blood count complete auto&auto difrntl wbc CBC W/AUTO DIFF WBC (37847) [facility] Work Phone: Start: 07-20-2018 Hemoglobin A1c/Hemoglobin.total mass fraction (Bld) HGB A1C (49620) [facility] Work Phone: Start: 07-20-2018 [...] Hemoglobin A1c/Hemoglobin.total mass fraction (Bld) HGB A1C (98183) [facility] Work Phone: Start: 01-31-2018 [...] Hemoglobin A1c/Hemoglobin.total mass fraction (Bld) HGB A1C (60038) [facility] Work Phone: Start: 09-27-2017 [...] Hemoglobin A1c/Hemoglobin.total mass fraction (Bld) HGB A1C (89116) [facility] Work Phone: Start: 01-18-2017 [...] Hemoglobin A1c/Hemoglobin.total mass fraction (Bld) HGB A1C (15616) [facility] Work Phone: Start: 09-14-2016 [...] Work Phone: Start: 08-02-2013 Thyrotropin Qn TSH (13687) [facility] Work Phone: Start: [...] Work Phone: Start: 09-28-2010 Patient Education Compr ens[facility] Work Phone: Start: 09-28-2010 Provider [...] Work Phone: Start: 04-15-2009 Thyrotropin Qn TSH (19882) [facility] Work Phone: Start: [...] Work Phone: Start: 01-22-2008 Thyrotropin Qn TSH (52605) [facility] Work Phone: Start: 07-17-2007 Provider Instruction s for Treatment [facility] Work Phone: Start: 07-17-2007 Cytp cerv/vag auto t hin layer prep mnl screen [facility] Work Phone: Start: 05-29-2007 Assay of troponin quantitative [facility]; [facility] Work Phone: Start: 05-29-2007 Troponin I.cardiac m ass conc ASSAY, TROPONIN, QUANTITATIVE (aka Troponin I) (35394) [facility] Work Phone: Start: 05-29-2007 C-reactive protein Comp [facility]; [facility] Work Phone: Start: 05-29-2007 CRP mass conc C-REACTIVE PRO TEIN (39207) [facility] Work Phone: Start: 05-29-2007 [...] Phone: Start: 01-23-2007 Magnesium mass conc Magnesium (75585 ) [facility] Work Phone: Start: 01-23-2007 Assay of thyroid stimulating hormone tsh [facility]; [facility] Work Phone: Start: 01-23-2007 Thyrotropin Qn TSH (59308) [facility] Work Phone: Start: 01-23-2007 Comprehensive metabo lic panel [facility] Work Phone: Start: 01-23-2007 Blood count manual c ell count each [facility] Work Phone: Start: 2006 BONE DENSITY BONE DENSITY [facility] Start: 2006 PNEUMOCOCCAL: 65+ (1 - PCV) PNEUMOCOCCAL: 65+ (1 - PCV) [facility] Start: 12-08-2005 Provider Instruction s for Treatment [facility] Work Phone: Start: 08-31-1991 SHINGRIX VACCINE (1 of 2) SHINGRIX VACCINE (1 of 2) [facility] Start: 1960 Urine microalbumin profile DTAP,TDAP,TD (1 - Tdap) [facility] Work Phone: Comprehensive [...] Immunizations Immunization Date Immunization Notes Care Provider [facility] 12-27-2021 influenza, injectabl e, quadrivalent, preservative free Gia Fast DO Work Phone: [facility]; [facility] Work Phone: 05-15-2020 Covid (Moderna) [facility] 04-17-2020 Covid (Moderna) [facility] 12-14-2019 Influenza virus vaccine [facility] 07-04-2018 zoster vaccine, live Gia Fast [facility] Work Phone: 04-06-2018 zoster vaccine, live Gia Fast [facility] Work Phone: 02-13-2013 varicella zoster imm une globulin Gia Fast [facility] Work Phone: Comment on above: Bring to doctors off ice once picked up to receive injection 03-02-2006 pneumococcal polysaccharide vaccine, 23 valent Gia Fast [facility] Work Phone: 03-06-1994 Hepatitis B vaccine (recombinant), CpG adjuvanted Gia Fast [facility] Work Phone: 03-06-1994 hepatitis B vaccine, adult dosage Gia Fast [facility] Work Phone: Payers Date Payer Category Payer Self-pay [id number] 2021 Medicare [employer] MEDICARE A ETNA MEDICARE PPO [id number] 2021-Present [phone] [address] [place] [address] PPO [id number] 2012 Private Health Insurance [facility] [id number] 2010 Medicare [id number] 2006 Medicare [id number] 2005 Unknown [id number] 2003 Unknown [id number] 1940 Unknown [id number] 16 Medicare [id number] Unknown Unknown [id number] 62 Unknown [id number] 62 Unknown [id number] 62 Unknown [id number] 62 Unknown [id number] 62 Unknown [id number] 62 Unknown [id number] 62 Unknown [id number] 62 Unknown [id number] 62 Unknown [id number] 62 Social History Date Type Detail Facility [...] smoking status NHIS Unknown if ever smoked [facility] Start: 03-12-2020 None [facility] Start: 1940 [facility]igned At [facility] Start: 12-21-2021 End: 10-11-2024 Tobacco smoking status NHIS Never smoked tobacco [facility] Start: 12-21-2021 Tobacco use and exposure Smokeless tobacco non-user [facility] Start: 12-21-2021 Alcohol intake Current drinke r of alcohol (finding) [facility] Start: 06-19-2018 History SDOH Alcohol Std Drinks 1 [facility] Start: 01-06-2021 Alcohol Comment rarely [facility] Start: 12-11-2021 End: 12-21-2021 Exposure to SARS-CoV-2 (event) Not sure [facility] Start: 06-20-2024 Sex Female (finding) [facility] Sex Female [facility] Clinical Notes 01-06-2021 to 06-04-2024 Note Date & Type Note Facility 06-04-2024 Evaluation note Diagnosis Onset Date Resolution Dyspnea on exertion acute June 04, 2024 1:27pm [facility] Work Phone: [phone] NoteHNO ID: [id number] Author: Ness Toribio PA-C Service: ? Author Type: Physician Insurance Territory Manager Type: Progress Notes Filed: 12/21/2021 10:48 AM [...] Denies bloody/black colored stools. Reports colonoscopy w/ [facility] in 2020 that was all normal [...] place, and time. Psy (more content not included)...[facility]10-18-2022 History of Present illness Narrative* Ness [...] Denies bloody/black colored stools. Reports colonoscopy / [facility] in 2020 that was all normal [...] which included preparing to see the patient, [id number] patient care, completing clinical documentation, obtaining and/or reviewing separately obtained history, performing a medically appropriate examination, counseling and educating the patient/family/caregiver, ordering medications, tests, or procedures, communicating with other HCPs (not separately reported), independently interpreting results (not separately reported), communicating results to the patient/family/caregiver, and care coordination (not separately reported). Ness Toribio PA-C December 21, 2021 10:43 AM [facility] NoteHNO ID: [id number] Author: Ness Toribio PA-C Service: ? Author Type: Physician Insurance Territory Manager Type: Progress Notes Filed: 01/06/2021 10:09 AM [...] Laterality Date - COLONOSCOP W/ OR W/O [facility] SPEC 10/07/2002 Colonoscopy - COLONOSCOP W/ OR W/O [facility] SPEC 04/11/2006 - COLONOSCOP W/ OR W/O [facility] SPEC 04/08/2010 due 04/2014 - COLONOSCOP W/ OR W/O [facility] SPEC 03/14/2013 Colonoscopy normal - COLONOSCOPY [...] and time. 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 Hiatal hernia Diaphragmatic hernia without mention of obstruction or gangrene documented in this encounter [facility] note* Diagnosis Onset Date Resolution Status Dyspnea on exertion acute [facility] Work Phone: Instructions* Name Dates Details Patient Instructions Indication:Nonsmoker Start:28-Jul-2020 Instruction Type:Provider Instructions for Treatment How to Access Health Informa tion Online using Patient Portal and [employer] Apps Indication:Nonsmoker Start:28-Jul-2020 Instruction Type:Patient Education Patient Instructions Indication:Elevated hemoglobin A1c Start:29-Apr-2020 Instruction Type:Provider Instructions for Treatment How to Access Health Informa tion Online using Patient Portal and [employer] Apps Indication:Elevated hemoglobin A1c Start:29-Apr-2020 Instruction Type:Patient Education Patient Instructions Indication:Abdominal pain Start:01-Apr-2020 Instruction Type:Provider Instructions for Treatment Patient Instructions Indication:Diarrhea Start:27-Mar-2020 Instruction Type:Provider Instructions for Treatment Patient Instructions Indication:Diarrhea Start:26-Mar-2020 Instruction Type:Provider Instructions for Treatment Patient Instructions Indication:Nonsmoker Start:23-Mar-2020 Instruction Type:Provider Instructions for Treatment How to Access Health Informa tion Online using Patient Portal and [employer] Apps Indication:Nonsmoker Start:23-Mar-2020 Instruction Type:Patient Education Patient Instructions Indication:Abdominal pain Start:09-Mar-2020 Instruction Type:Provider Instructions for Treatment How to Access Health Informa tion Online using Patient Portal and [employer] Apps Indication:Abdominal pain Start:09-Mar-2020 Instruction Type:Patient Education [...] Informa tion Online using Patient Portal and [employer] Apps Indication:Nonsmoker Start:28-Jul-2020 Instruction Type:Patient Education Patient Instructions Indication:Elevated hemoglobin A1c Start:29-Apr-2020 Instruction Type:Provider Instructions for Treatment How to Access Health Informa tion Online using Patient Portal and [employer] Apps Indication:Elevated hemoglobin A1c Start:29-Apr-2020 Instruction Type:Patient Education Patient Instructions Indication:Abdominal pain Start:01-Apr-2020 Instruction Type:Provider Instructions for Treatment Patient Instructions Indication:Diarrhea Start:27-Mar-2020 Instruction Type:Provider Instructions for Treatment Patient Instructions Indication:Diarrhea Start:26-Mar-2020 Instruction Type:Provider Instructions for Treatment Patient Instructions Indication:Nonsmoker Start:23-Mar-2020 Instruction Type:Provider Instructions for Treatment How to Access Health Informa tion Online using Patient Portal and [employer] Apps Indication:Nonsmoker Start:23-Mar-2020 Instruction Type:Patient Education Patient Instructions Indication:Abdominal pain Start:09-Mar-2020 Instruction Type:Provider Instructions for Treatment How to Access Health Informa tion Online using Patient Portal and [employer] Apps Indication:Abdominal pain Start:09-Mar-2020 Instruction Type:Patient Education [...] Phone: Instructions* Name Dates Details Patient Instructions Indication:[facility] WELLNESS EXAM Start:15-Jan-2021 Instruction Type:Provider Instructions for Treatment How to Access Health Informa tion Online using Patient Portal and [employer] Apps Indication:[facility] WELLNESS EXAM Start:15-Jan-2021 Instruction Type:Patient Education Patient Instructions Indication:Anemia Start:02-Nov-2020 Instruction Type:Provider Instructions for Treatment How to Access Health Informa tion Online using Patient Portal and [employer] Apps Indication:Anemia Start:02-Nov-2020 Instruction Type:Patient Education Patient Instructions Indication:Nonsmoker Start:28-Jul-2020 Instruction Type:Provider Instructions for Treatment How to Access Health Informa tion Online using Patient Portal and [employer] Apps Indication:Nonsmoker Start:28-Jul-2020 Instruction Type:Patient Education Patient Instructions Indication:Elevated hemoglobin A1c Start:29-Apr-2020 Instruction Type:Provider Instructions for Treatment How to Access Health Informa tion Online using Patient Portal and [employer] Apps Indication:Elevated hemoglobin A1c Start:29-Apr-2020 Instruction Type:Patient Education Patient Instructions Indication:Abdominal pain Start:01-Apr-2020 Instruction Type:Provider Instructions for Treatment Patient Instructions Indication:Diarrhea Start:27-Mar-2020 Instruction Type:Provider Instructions for Treatment Patient Instructions Indication:Diarrhea Start:26-Mar-2020 Instruction Type:Provider Instructions for Treatment Patient Instructions Indication:Nonsmoker Start:23-Mar-2020 Instruction Type:Provider Instructions for Treatment How to Access Health Informa tion Online using Patient Portal and [employer] Apps Indication:Nonsmoker Start:23-Mar-2020 Instruction Type:Patient Education Patient Instructions Indication:Abdominal pain Start:09-Mar-2020 Instruction Type:Provider Instructions for Treatment How to Access Health Informa tion Online using Patient Portal and [employer] Apps Indication:Abdominal pain Start:09-Mar-2020 Instruction Type:Patient Education [...] tion Online using Patient Portal and [employer] Apps Indication:Elevated hemoglobin A1c Start:26-May-2021 Instruction Type:Patient Education Patient Instructions Indication:[facility] WELLNESS EXAM Start:15-Jan-2021 Instruction Type:Provider Instructions for Treatment How to Access Health Informa tion Online using Patient Portal and [employer] Apps Indication:[facility] WELLNESS EXAM Start:15-Jan-2021 Instruction Type:Patient Education Patient Instructions Indication:Anemia Start:02-Nov-2020 Instruction Type:Provider Instructions for Treatment How to Access Health Informa tion Online using Patient Portal and [employer] Apps Indication:Anemia Start:02-Nov-2020 Instruction Type:Patient Education Patient Instructions Indication:Nonsmoker Start:28-Jul-2020 Instruction Type:Provider Instructions for Treatment How to Access Health Informa tion Online using Patient Portal and [employer] Apps Indication:Nonsmoker Start:28-Jul-2020 Instruction Type:Patient Education Patient Instructions Indication:Elevated hemoglobin A1c Start:29-Apr-2020 Instruction Type:Provider Instructions for Treatment How to Access Health Informa tion Online using Patient Portal and [employer] Apps Indication:Elevated hemoglobin A1c Start:29-Apr-2020 Instruction Type:Patient Education Patient Instructions Indication:Abdominal pain Start:01-Apr-2020 Instruction Type:Provider Instructions for Treatment Patient Instructions Indication:Diarrhea Start:27-Mar-2020 Instruction Type:Provider Instructions for Treatment Patient Instructions Indication:Diarrhea Start:26-Mar-2020 Instruction Type:Provider Instructions for Treatment Patient Instructions Indication:Nonsmoker Start:23-Mar-2020 Instruction Type:Provider Instructions for Treatment How to Access Health Informa tion Online using Patient Portal and [employer] Apps Indication:Nonsmoker Start:23-Mar-2020 Instruction Type:Patient Education Patient Instructions Indication:Abdominal pain Start:09-Mar-2020 Instruction Type:Provider Instructions for Treatment How to Access Health Informa tion Online using Patient Portal and [employer] Apps Indication:Abdominal pain Start:09-Mar-2020 Instruction Type:Patient Education [...] tion Online using Patient Portal and [employer] Indication:BMI 22.0-22.9, adult Start:10-Sep-2021 Instruction Type:Patient Education Patient Instructions Indication:Elevated hemoglobin A1c Start:26-May-2021 Instruction Type:Provider Instructions for Treatment How to Access Health Informa tion Online using Patient Portal and [employer] Apps Indication:Elevated hemoglobin A1c Start:26-May-2021 Instruction Type:Patient Education Patient Instructions Indication:[facility]LL[facility] EXAM Start:15-Jan-2021 Instruction Type:Provider Instructions for Treatment How to Access Health Informa tion Online using Patient Portal and [employer] Apps Indication:[facility] EX[facility] Start:15-Jan-2021 Instruction Type:Patient Education Patient Instructions Indication:Anemia Start:02-Nov-2020 Instruction Type:Provider Instructions for Treatment How to Access Health Informa tion Online using Patient Portal and [employer] Apps Indication:Anemia Start:02-Nov-2020 Instruction Type:Patient Education Patient Instructions Indication:Nonsmoker Start:28-Jul-2020 Instruction Type:Provider Instructions for Treatment How to Access Health Informa tion Online using Patient Portal and [employer] Apps Indication:Nonsmoker Start:28-Jul-2020 Instruction Type:Patient Education Patient Instructions Indication:Elevated hemoglobin A1c Start:29-Apr-2020 Instruction Type:Provider Instructions for Treatment How to Access Health Informa tion Online using Patient Portal and [employer] Apps Indication:Elevated hemoglobin A1c Start:29-Apr-2020 Instruction Type:Patient Education Patient Instructions Indication:Abdominal pain Start:01-Apr-2020 Instruction Type:Provider Instructions for Treatment Patient Instructions Indication:Diarrhea Start:27-Mar-2020 Instruction Type:Provider Instructions for Treatment Patient Instructions Indication:Diarrhea Start:26-Mar-2020 Instruction Type:Provider Instructions for Treatment Patient Instructions Indication:Nonsmoker Start:23-Mar-2020 Instruction Type:Provider Instructions for Treatment How to Access Health Informa tion Online using Patient Portal and [employer] Apps Indication:Nonsmoker Start:23-Mar-2020 Instruction Type:Patient Education Patient Instructions Indication:Abdominal pain Start:09-Mar-2020 Instruction Type:Provider Instructions for Treatment How to Access Health Informa tion Online using Patient Portal and [employer] Apps Indication:Abdominal pain Start:09-Mar-2020 Instruction Type:Patient Education [...] Start:27-Aug-2014 Instruction Type:Patient Education Patient Instructions Indication:Headache Start:18-Feb-2015 Instruction Type:Provider Instructions for Treatment Patient Instructions [...] tion Online using Patient Portal and [employer] Indication:BMI 22.0-22.9, adult Start:10-Sep-2021 Instruction Type:Patient Education Patient Instructions Indication:Elevated hemoglobin A1c Start:26-May-2021 Instruction Type:Provider Instructions for Treatment How to Access Health Informa tion Online using Patient Portal and [employer] Apps Indication:Elevated hemoglobin A1c Start:26-May-2021 Instruction Type:Patient Education Patient Instructions Indication:[facility]LLNESS EXAM Start:15-Jan-2021 Instruction Type:Provider Instructions for Treatment How to Access Health Informa tion Online using Patient Portal and [employer] Apps Indication:[facility] EX[facility] Start:15-Jan-2021 Instruction Type:Patient Education Patient Instructions Indication:Anemia Start:02-Nov-2020 Instruction Type:Provider Instructions for Treatment How to Access Health Informa tion Online using Patient Portal and [employer] Indication:Anemia Start:02-Nov-2020 Instruction Type:Patient Education Patient Instructions Indication:Nonsmoker Start:28-Jul-2020 Instruction Type:Provider Instructions for Treatment How to Access Health Informa tion Online using Patient Portal and [employer] Indication:Nonsmoker Start:28-Jul-2020 Instruction Type:Patient Education Patient Instructions Indication:Elevated hemoglobin A1c Start:29-Apr-2020 Instruction Type:Provider Instructions for Treatment How to Access Health Informa tion Online using Patient Portal and [employer] Indication:Elevated hemoglobin A1c Start:29-Apr-2020 Instruction Type:Patient Education Patient Instructions Indication:Abdominal pain Start:01-Apr-2020 Instruction Type:Provider Instructions for Treatment Patient Instructions Indication:Diarrhea Start:27-Mar-2020 Instruction Type:Provider Instructions for Treatment Patient Instructions Indication:Diarrhea Start:26-Mar-2020 Instruction Type:Provider Instructions for Treatment Patient Instructions Indication:Nonsmoker Start:23-Mar-2020 Instruction Type:Provider Instructions for Treatment How to Access Health Informa tion Online using Patient Portal and [employer] Indication:Nonsmoker Start:23-Mar-2020 Instruction Type:Patient Education Patient Instructions Indication:Abdominal pain Start:09-Mar-2020 Instruction Type:Provider Instructions for Treatment How to Access Health Informa tion Online using Patient Portal and [employer] Indication:Abdominal pain Start:09-Mar-2020 Instruction Type:Patient Education [...] tion Online using Patient Portal and [employer] Indication:BMI 22.0-22.9, adult Start:10-Sep-2021 Instruction Type:Patient Education Patient Instructions Indication:Elevated hemoglobin A1c Start:26-May-2021 Instruction Type:Provider Instructions for Treatment How to Access Health Informa tion Online using Patient Portal and [employer] Indication:Elevated hemoglobin A1c Start:26-May-2021 Instruction Type:Patient Education Patient Instructions Indication:[facility] EX[facility] Start:15-Jan-2021 Instruction Type:Provider Instructions for Treatment How to Access Health Informa tion Online using Patient Portal and [employer] Indication:[facility] EX[facility] Start:15-Jan-2021 Instruction Type:Patient Education Patient Instructions Indication:Anemia Start:02-Nov-2020 Instruction Type:Provider Instructions for Treatment How to Access Health Informa tion Online using Patient Portal and [employer] Indication:Anemia Start:02-Nov-2020 Instruction Type:Patient Education Patient Instructions Indication:Nonsmoker Start:28-Jul-2020 Instruction Type:Provider Instructions for Treatment How to Access Health Informa tion Online using Patient Portal and [employer] Indication:Nonsmoker Start:28-Jul-2020 Instruction Type:Patient Education Patient Instructions Indication:Elevated hemoglobin A1c Start:29-Apr-2020 Instruction Type:Provider Instructions for Treatment How to Access Health Informa tion Online using Patient Portal and [employer] Indication:Elevated hemoglobin A1c Start:29-Apr-2020 Instruction Type:Patient Education Patient Instructions Indication:Abdominal pain Start:01-Apr-2020 Instruction Type:Provider Instructions for Treatment Patient Instructions Indication:Diarrhea Start:27-Mar-2020 Instruction Type:Provider Instructions for Treatment Patient Instructions Indication:Diarrhea Start:26-Mar-2020 Instruction Type:Provider Instructions for Treatment Patient Instructions Indication:Nonsmoker Start:23-Mar-2020 Instruction Type:Provider Instructions for Treatment How to Access Health Informa tion Online using Patient Portal and [employer] Indication:Nonsmoker Start:23-Mar-2020 Instruction Type:Patient Education Patient Instructions Indication:Abdominal pain Start:09-Mar-2020 Instruction Type:Provider Instructions for Treatment How to Access Health Informa tion Online using Patient Portal and [employer] Indication:Abdominal pain Start:09-Mar-2020 Instruction Type:Patient Education [...] EXAM Start:14-Sep-2016 Instruction Type:Patient Education Patient Instructions [facility] Start:14-Sep-2016 Instruction Type:Provider Instructions for [...] access health informa tion online - Detail Indication[facility] Start:11-Sep-2015 Instruction Type:Patient Education Patient [...] tion Online using Patient Portal and [employer] Indication:BMI 22.0-22.9, adult Start:10-Sep-2021 Instruction Type:Patient Education Patient Instructions Indication:Elevated hemoglobin A1c Start:26-May-2021 Instruction Type:Provider Instructions for Treatment How to Access Health Informa tion Online using Patient Portal and [employer] Indication:Elevated hemoglobin A1c Start:26-May-2021 Instruction Type:Patient Education Patient Instructions Indication:[facility] EX[facility] Start:15-Jan-2021 Instruction Type:Provider Instructions for Treatment How to Access Health Informa tion Online using Patient Portal and [employer] Indication:[facility] EX[facility] Start:15-Jan-2021 Instruction Type:Patient Education Patient Instructions Indication:Anemia Start:02-Nov-2020 Instruction Type:Provider Instructions for Treatment How to Access Health Informa tion Online using Patient Portal and [employer] Indication:Anemia Start:02-Nov-2020 Instruction Type:Patient Education Patient Instructions Indication:Nonsmoker Start:28-Jul-2020 Instruction Type:Provider Instructions for Treatment How to Access Health Informa tion Online using Patient Portal and [employer] Indication:Nonsmoker Start:28-Jul-2020 Instruction Type:Patient Education Patient Instructions Indication:Elevated hemoglobin A1c Start:29-Apr-2020 Instruction Type:Provider Instructions for Treatment How to Access Health Informa tion Online using Patient Portal and [employer] Indication:Elevated hemoglobin A1c Start:29-Apr-2020 Instruction Type:Patient Education Patient Instructions Indication:Abdominal pain Start:01-Apr-2020 Instruction Type:Provider Instructions for Treatment Patient Instructions Indication:Diarrhea Start:27-Mar-2020 Instruction Type:Provider Instructions for Treatment Patient Instructions Indication:Diarrhea Start:26-Mar-2020 Instruction Type:Provider Instructions for Treatment Patient Instructions Indication:Nonsmoker Start:23-Mar-2020 Instruction Type:Provider Instructions for Treatment How to Access Health Informa tion Online using Patient Portal and [employer] Indication:Nonsmoker Start:23-Mar-2020 Instruction Type:Patient Education Patient Instructions Indication:Abdominal pain Start:09-Mar-2020 Instruction Type:Provider Instructions for Treatment How to Access Health Informa tion Online using Patient Portal and [employer] Indication:Abdominal pain Start:09-Mar-2020 Instruction Type:Patient Education [...] tion Online using Patient Portal and [employer] Indication:BMI 22.0-22.9, adult Start:10-Sep-2021 Instruction Type:Patient Education Patient Instructions Indication:Elevated hemoglobin A1c Start:26-May-2021 Instruction Type:Provider Instructions for Treatment How to Access Health Informa tion Online using Patient Portal and [employer] Apps Indication:Elevated hemoglobin A1c Start:26-May-2021 Instruction Type:Patient Education Patient Instructions Indication:[facility] EX[facility] Start:15-Jan-2021 Instruction Type:Provider Instructions for Treatment How to Access Health Informa tion Online using Patient Portal and [employer] Indication:[facility] EX[facility] Start:15-Jan-2021 Instruction Type:Patient Education Patient Instructions Indication:Anemia Start:02-Nov-2020 Instruction Type:Provider Instructions for Treatment How to Access Health Informa tion Online using Patient Portal and [employer] Indication:Anemia Start:02-Nov-2020 Instruction Type:Patient Education Patient Instructions Indication:Nonsmoker Start:28-Jul-2020 Instruction Type:Provider Instructions for Treatment How to Access Health Informa tion Online using Patient Portal and [employer] Indication:Nonsmoker Start:28-Jul-2020 Instruction Type:Patient Education Patient Instructions Indication:Elevated hemoglobin A1c Start:29-Apr-2020 Instruction Type:Provider Instructions for Treatment How to Access Health Informa tion Online using Patient Portal and [employer] Indication:Elevated hemoglobin A1c Start:29-Apr-2020 Instruction Type:Patient Education Patient Instructions Indication:Abdominal pain Start:01-Apr-2020 Instruction Type:Provider Instructions for Treatment Patient Instructions Indication:Diarrhea Start:27-Mar-2020 Instruction Type:Provider Instructions for Treatment Patient Instructions Indication:Diarrhea Start:26-Mar-2020 Instruction Type:Provider Instructions for Treatment Patient Instructions Indication:Nonsmoker Start:23-Mar-2020 Instruction Type:Provider Instructions for Treatment How to Access Health Informa tion Online using Patient Portal and [employer] Indication:Nonsmoker Start:23-Mar-2020 Instruction Type:Patient Education Patient Instructions Indication:Abdominal pain Start:09-Mar-2020 Instruction Type:Provider Instructions for Treatment How to Access Health Informa tion Online using Patient Portal and [employer] Indication:Abdominal pain Start:09-Mar-2020 Instruction Type:Patient Education [...] Phone: Instructions* Name Dates Details Patient Instructions Indication:[facility] WELLNESS EXAM Start:11-Jan-2022 Instruction Type:Provider Instructions for Treatment How to Access Health Informa tion Online using Patient Portal and [employer] Apps [facility] Start:11-Jan-2022 Instruction Type:Patient Education Patient Instructions Indication:BMI 22.0-22.9, adult Start:10-Sep-2021 Instruction Type:Provider Instructions for Treatment How to Access Health Informa tion Online using Patient Portal and [employer] Indication:BMI 22.0-22.9, adult Start:10-Sep-2021 Instruction Type:Patient Education Patient Instructions Indication:Elevated hemoglobin A1c Start:26-May-2021 Instruction Type:Provider Instructions for Treatment How to Access Health Informa tion Online using Patient Portal and [employer] Indication:Elevated hemoglobin A1c Start:26-May-2021 Instruction Type:Patient Education Patient Instructions Indication:[facility] EX[facility] Start:15-Jan-2021 Instruction Type:Provider Instructions for Treatment How to Access Health Informa tion Online using Patient Portal and [employer] Indication:[facility] EXAM Start:15-Jan-2021 Instruction Type:Patient Education Patient Instructions Indication:Anemia Start:02-Nov-2020 Instruction Type:Provider Instructions for Treatment How to Access Health Informa tion Online using Patient Portal and [employer] Indication:Anemia Start:02-Nov-2020 Instruction Type:Patient Education Patient Instructions Indication:Nonsmoker Start:28-Jul-2020 Instruction Type:Provider Instructions for Treatment How to Access Health Informa tion Online using Patient Portal and [employer] Apps Indication:Nonsmoker Start:28-Jul-2020 Instruction Type:Patient Education Patient Instructions Indication:Elevated hemoglobin A1c Start:29-Apr-2020 Instruction Type:Provider Instructions for Treatment How to Access Health Informa tion Online using Patient Portal and [employer] Indication:Elevated hemoglobin A1c Start:29-Apr-2020 Instruction Type:Patient Education Patient Instructions Indication:Abdominal pain Start:01-Apr-2020 Instruction Type:Provider Instructions for Treatment Patient Instructions Indication:Diarrhea Start:27-Mar-2020 Instruction Type:Provider Instructions for Treatment Patient Instructions Indication:Diarrhea Start:26-Mar-2020 Instruction Type:Provider Instructions for Treatment Patient Instructions Indication:Nonsmoker Start:23-Mar-2020 Instruction Type:Provider Instructions for Treatment How to Access Health Informa tion Online using Patient Portal and [employer] Indication:Nonsmoker Start:23-Mar-2020 Instruction Type:Patient Education Patient Instructions Indication:Abdominal pain Start:09-Mar-2020 Instruction Type:Provider Instructions for Treatment How to Access Health Informa tion Online using Patient Portal and [employer] Apps Indication:Abdominal pain Start:09-Mar-2020 Instruction Type:Patient Education [...] EXAM Start:14-Sep-2016 Instruction Type:Patient Education Patient Instructions Ind[facility] Start:14-Sep-2016 Instruction Type:Provider Instructions for Treatment How to access health informa tion online Indication:Osteoporosis Start:15-Apr-2016 Instruction Type:Patient Education How to access health informa tion online - Detail Indication:Osteoporosis Start:15-Apr-2016 Instruction Type:Patient Education Patient Instructions Indication:Osteoporosis Start:15-Apr-2016 Instruction Type:Provider Instructions for Treatment How to access health informa tion online Indication:[facility] WELLNESS EXAM Start:11-Sep-2015 Instruction Type:Patient Education How to access health informa tion online - Detail Indication[facility] Start:11-Sep-2015 Instruction Type:Patient Education Patient Instructions Ind[facility] Start:11-Sep-2015 Instruction Type:Provider Instructions for [...] Phone: Instructions* Name Dates Details Patient Instructions Indication:[facility]LL[facility] EXAM Start:11-Jan-2022 Instruction Type:Provider Instructions for Treatment How to Access Health Informa tion Online using Patient Portal and [employer] Indication:[facility]LL[facility] EX[facility] Start:11-Jan-2022 Instruction Type:Patient Education Patient Instructions Indication:BMI 22.0-22.9, adult Start:10-Sep-2021 Instruction Type:Provider Instructions for Treatment How to Access Health Informa tion Online using Patient Portal and [employer] Indication:BMI 22.0-22.9, adult Start:10-Sep-2021 Instruction Type:Patient Education Patient Instructions Indication:Elevated hemoglobin A1c Start:26-May-2021 Instruction Type:Provider Instructions for Treatment How to Access Health Informa tion Online using Patient Portal and [employer] Indication:Elevated hemoglobin A1c Start:26-May-2021 Instruction Type:Patient Education Patient Instructions Indication:[facility] EX[facility] Start:15-Jan-2021 Instruction Type:Provider Instructions for Treatment How to Access Health Informa tion Online using Patient Portal and [employer] Indication:[facility] EX[facility] Start:15-Jan-2021 Instruction Type:Patient Education Patient Instructions Indication:Anemia Start:02-Nov-2020 Instruction Type:Provider Instructions for Treatment How to Access Health Informa tion Online using Patient Portal and [employer] Indication:Anemia Start:02-Nov-2020 Instruction Type:Patient Education Patient Instructions Indication:Nonsmoker Start:28-Jul-2020 Instruction Type:Provider Instructions for Treatment How to Access Health Informa tion Online using Patient Portal and [employer] Indication:Nonsmoker Start:28-Jul-2020 Instruction Type:Patient Education Patient Instructions Indication:Elevated hemoglobin A1c Start:29-Apr-2020 Instruction Type:Provider Instructions for Treatment How to Access Health Informa tion Online using Patient Portal and [employer] Apps Indication:Elevated hemoglobin A1c Start:29-Apr-2020 Instruction Type:Patient Education Patient Instructions Indication:Abdominal pain Start:01-Apr-2020 Instruction Type:Provider Instructions for Treatment Patient Instructions Indication:Diarrhea Start:27-Mar-2020 Instruction Type:Provider Instructions for Treatment Patient Instructions Indication:Diarrhea Start:26-Mar-2020 Instruction Type:Provider Instructions for Treatment Patient Instructions Indication:Nonsmoker Start:23-Mar-2020 Instruction Type:Provider Instructions for Treatment How to Access Health Informa tion Online using Patient Portal and [employer] Indication:Nonsmoker Start:23-Mar-2020 Instruction Type:Patient Education Patient Instructions Indication:Abdominal pain Start:09-Mar-2020 Instruction Type:Provider Instructions for Treatment How to Access Health Informa tion Online using Patient Portal and [employer] Apps Indication:Abdominal pain Start:09-Mar-2020 Instruction Type:Patient Education [...] Phone: Instructions* Name Dates Details Patient Instructions Indication:[facility]LL[facility] EXAM Start:11-Jan-2022 Instruction Type:Provider Instructions for Treatment How to Access Health Informa tion Online using Patient Portal and [employer] Apps [facility] Start:11-Jan-2022 Instruction Type:Patient Education Patient Instructions Indication:BMI 22.0-22.9, adult Start:10-Sep-2021 Instruction Type:Provider Instructions for Treatment How to Access Health Informa tion Online using Patient Portal and [employer] Indication:BMI 22.0-22.9, adult Start:10-Sep-2021 Instruction Type:Patient Education Patient Instructions Indication:Elevated hemoglobin A1c Start:26-May-2021 Instruction Type:Provider Instructions for Treatment How to Access Health Informa tion Online using Patient Portal and [employer] Indication:Elevated hemoglobin A1c Start:26-May-2021 Instruction Type:Patient Education Patient Instructions Indication:[facility] EX[facility] Start:15-Jan-2021 Instruction Type:Provider Instructions for Treatment How to Access Health Informa tion Online using Patient Portal and [employer] Indication:[facility] EX[facility] Start:15-Jan-2021 Instruction Type:Patient Education Patient Instructions Indication:Anemia Start:02-Nov-2020 Instruction Type:Provider Instructions for Treatment How to Access Health Informa tion Online using Patient Portal and [employer] Indication:Anemia Start:02-Nov-2020 Instruction Type:Patient Education Patient Instructions Indication:Nonsmoker Start:28-Jul-2020 Instruction Type:Provider Instructions for Treatment How to Access Health Informa tion Online using Patient Portal and [employer] Indication:Nonsmoker Start:28-Jul-2020 Instruction Type:Patient Education Patient Instructions Indication:Elevated hemoglobin A1c Start:29-Apr-2020 Instruction Type:Provider Instructions for Treatment How to Access Health Informa tion Online using Patient Portal and [employer] Indication:Elevated hemoglobin A1c Start:29-Apr-2020 Instruction Type:Patient Education Patient Instructions Indication:Abdominal pain Start:01-Apr-2020 Instruction Type:Provider Instructions for Treatment Patient Instructions Indication:Diarrhea Start:27-Mar-2020 Instruction Type:Provider Instructions for Treatment Patient Instructions Indication:Diarrhea Start:26-Mar-2020 Instruction Type:Provider Instructions for Treatment Patient Instructions Indication:Nonsmoker Start:23-Mar-2020 Instruction Type:Provider Instructions for Treatment How to Access Health Informa tion Online using Patient Portal and [employer] Indication:Nonsmoker Start:23-Mar-2020 Instruction Type:Patient Education Patient Instructions Indication:Abdominal pain Start:09-Mar-2020 Instruction Type:Provider Instructions for Treatment How to Access Health Informa tion Online using Patient Portal and [employer] Apps Indication:Abdominal pain Start:09-Mar-2020 Instruction Type:Patient Education [...] Phone: Instructions* Name Dates Details Patient Instructions Indication:[facility] WELLNESS EXAM Start:11-Jan-2022 Instruction Type:Provider Instructions for Treatment How to Access Health Informa tion Online using Patient Portal and [employer] Indication:[facility] EX[facility] Start:11-Jan-2022 Instruction Type:Patient Education Patient Instructions Indication:BMI 22.0-22.9, adult Start:10-Sep-2021 Instruction Type:Provider Instructions for Treatment How to Access Health Informa tion Online using Patient Portal and [employer] Indication:BMI 22.0-22.9, adult Start:10-Sep-2021 Instruction Type:Patient Education Patient Instructions Indication:Elevated hemoglobin A1c Start:26-May-2021 Instruction Type:Provider Instructions for Treatment How to Access Health Informa tion Online using Patient Portal and [employer] Apps Indication:Elevated hemoglobin A1c Start:26-May-2021 Instruction Type:Patient Education Patient Instructions Indication:[facility] EX[facility] Start:15-Jan-2021 Instruction Type:Provider Instructions for Treatment How to Access Health Informa tion Online using Patient Portal and [employer] Apps Indication:[facility] Start:15-Jan-2021 Instruction Type:Patient Education Patient Instructions Indication:Anemia Start:02-Nov-2020 Instruction Type:Provider Instructions for Treatment How to Access Health Informa tion Online using Patient Portal and [employer] Apps Indication:Anemia Start:02-Nov-2020 Instruction Type:Patient Education Patient Instructions Indication:Nonsmoker Start:28-Jul-2020 Instruction Type:Provider Instructions for Treatment How to Access Health Informa tion Online using Patient Portal and [employer] Apps Indication:Nonsmoker Start:28-Jul-2020 Instruction Type:Patient Education Patient Instructions Indication:Elevated hemoglobin A1c Start:29-Apr-2020 Instruction Type:Provider Instructions for Treatment How to Access Health Informa tion Online using Patient Portal and [employer] Apps Indication:Elevated hemoglobin A1c Start:29-Apr-2020 Instruction Type:Patient Education Patient Instructions Indication:Abdominal pain Start:01-Apr-2020 Instruction Type:Provider Instructions for Treatment Patient Instructions Indication:Diarrhea Start:27-Mar-2020 Instruction Type:Provider Instructions for Treatment Patient Instructions Indication:Diarrhea Start:26-Mar-2020 Instruction Type:Provider Instructions for Treatment Patient Instructions Indication:Nonsmoker Start:23-Mar-2020 Instruction Type:Provider Instructions for Treatment How to Access Health Informa tion Online using Patient Portal and [employer] Apps Indication:Nonsmoker Start:23-Mar-2020 Instruction Type:Patient Education Patient Instructions Indication:Abdominal pain Start:09-Mar-2020 Instruction Type:Provider Instructions for Treatment How to Access Health Informa tion Online using Patient Portal and [employer] Apps Indication:Abdominal pain Start:09-Mar-2020 Instruction Type:Patient Education [...] Phone: Instructions* Name Dates Details Patient Instructions Indication:[facility] WELLNESS EXAM Start:11-Jan-2022 Instruction Type:Provider Instructions for Treatment How to Access Health Informa tion Online using Patient Portal and [employer] Apps Indication:[facility] Start:11-Jan-2022 Instruction Type:Patient Education Patient Instructions Indication:BMI 22.0-22.9, adult Start:10-Sep-2021 Instruction Type:Provider Instructions for Treatment How to Access Health Informa tion Online using Patient Portal and [employer] Apps Indication:BMI 22.0-22.9, adult Start:10-Sep-2021 Instruction Type:Patient Education Patient Instructions Indication:Elevated hemoglobin A1c Start:26-May-2021 Instruction Type:Provider Instructions for Treatment How to Access Health Informa tion Online using Patient Portal and [employer] Apps Indication:Elevated hemoglobin A1c Start:26-May-2021 Instruction Type:Patient Education Patient Instructions Indication:[facility] Start:15-Jan-2021 Instruction Type:Provider Instructions for Treatment How to Access Health Informa tion Online using Patient Portal and [employer] Apps Indication:[facility] Start:15-Jan-2021 Instruction Type:Patient Education Patient Instructions Indication:Anemia Start:02-Nov-2020 Instruction Type:Provider Instructions for Treatment How to Access Health Informa tion Online using Patient Portal and [employer] Apps Indication:Anemia Start:02-Nov-2020 Instruction Type:Patient Education Patient Instructions Indication:Nonsmoker Start:28-Jul-2020 Instruction Type:Provider Instructions for Treatment How to Access Health Informa tion Online using Patient Portal and [employer] Apps Indication:Nonsmoker Start:28-Jul-2020 Instruction Type:Patient Education Patient Instructions Indication:Elevated hemoglobin A1c Start:29-Apr-2020 Instruction Type:Provider Instructions for Treatment How to Access Health Informa tion Online using Patient Portal and [employer] Apps Indication:Elevated hemoglobin A1c Start:29-Apr-2020 Instruction Type:Patient Education Patient Instructions Indication:Abdominal pain Start:01-Apr-2020 Instruction Type:Provider Instructions for Treatment Patient Instructions Indication:Diarrhea Start:27-Mar-2020 Instruction Type:Provider Instructions for Treatment Patient Instructions Indication:Diarrhea Start:26-Mar-2020 Instruction Type:Provider Instructions for Treatment Patient Instructions Indication:Nonsmoker Start:23-Mar-2020 Instruction Type:Provider Instructions for Treatment How to Access Health Informa tion Online using Patient Portal and [employer] Apps Indication:Nonsmoker Start:23-Mar-2020 Instruction Type:Patient Education Patient Instructions Indication:Abdominal pain Start:09-Mar-2020 Instruction Type:Provider Instructions for Treatment How to Access Health Informa tion Online using Patient Portal and [employer] Apps Indication:Abdominal pain Start:09-Mar-2020 Instruction Type:Patient Education [...] access health informa tion online - Detail Ind[facility] Start:14-Sep-2016 Instruction Type:Patient Education Patient Instructions Ind[facility] Start:14-Sep-2016 Instruction Type:Provider Instructions for [...] Phone: Instructions* Name Dates Details Patient Instructions Indication:[facility]LL[facility] EXAM Start:11-Jan-2022 Instruction Type:Provider Instructions for Treatment How to Access Health Informa tion Online using Patient Portal and [employer] Apps Indication:[facility] EXAM Start:11-Jan-2022 Instruction Type:Patient Education Patient Instructions Indication:BMI 22.0-22.9, adult Start:10-Sep-2021 Instruction Type:Provider Instructions for Treatment How to Access Health Informa tion Online using Patient Portal and [employer] Apps Indication:BMI 22.0-22.9, adult Start:10-Sep-2021 Instruction Type:Patient Education Patient Instructions Indication:Elevated hemoglobin A1c Start:26-May-2021 Instruction Type:Provider Instructions for Treatment How to Access Health Informa tion Online using Patient Portal and [employer] Apps Indication:Elevated hemoglobin A1c Start:26-May-2021 Instruction Type:Patient Education Patient Instructions Indication:[facility] Start:15-Jan-2021 Instruction Type:Provider Instructions for Treatment How to Access Health Informa tion Online using Patient Portal and [employer] Apps Indication:[facility] Start:15-Jan-2021 Instruction Type:Patient Education Patient Instructions Indication:Anemia Start:02-Nov-2020 Instruction Type:Provider Instructions for Treatment How to Access Health Informa tion Online using Patient Portal and [employer] Apps Indication:Anemia Start:02-Nov-2020 Instruction Type:Patient Education Patient Instructions Indication:Nonsmoker Start:28-Jul-2020 Instruction Type:Provider Instructions for Treatment How to Access Health Informa tion Online using Patient Portal and [employer] Apps Indication:Nonsmoker Start:28-Jul-2020 Instruction Type:Patient Education Patient Instructions Indication:Elevated hemoglobin A1c Start:29-Apr-2020 Instruction Type:Provider Instructions for Treatment How to Access Health Informa tion Online using Patient Portal and [employer] Apps Indication:Elevated hemoglobin A1c Start:29-Apr-2020 Instruction Type:Patient Education Patient Instructions Indication:Abdominal pain Start:01-Apr-2020 Instruction Type:Provider Instructions for Treatment Patient Instructions Indication:Diarrhea Start:27-Mar-2020 Instruction Type:Provider Instructions for Treatment Patient Instructions Indication:Diarrhea Start:26-Mar-2020 Instruction Type:Provider Instructions for Treatment Patient Instructions Indication:Nonsmoker Start:23-Mar-2020 Instruction Type:Provider Instructions for Treatment How to Access Health Informa tion Online using Patient Portal and [employer] Apps Indication:Nonsmoker Start:23-Mar-2020 Instruction Type:Patient Education Patient Instructions Indication:Abdominal pain Start:09-Mar-2020 Instruction Type:Provider Instructions for Treatment How to Access Health Informa tion Online using Patient Portal and [employer] Apps Indication:Abdominal pain Start:09-Mar-2020 Instruction Type:Patient Education [...] Phone: Instructions* Name Dates Details Patient Instructions [facility] Start:11-Jan-2022 Instruction Type:Provider Instructions for Treatment How to Access Health Informa tion Online using Patient Portal and [employer] Apps Ind[facility] Start:11-Jan-2022 Instruction Type:Patient Education Patient Instructions Indication:BMI 22.0-22.9, adult Start:10-Sep-2021 Instruction Type:Provider Instructions for Treatment How to Access Health Informa tion Online using Patient Portal and [employer] Apps Indication:BMI 22.0-22.9, adult Start:10-Sep-2021 Instruction Type:Patient Education Patient Instructions Indication:Elevated hemoglobin A1c Start:26-May-2021 Instruction Type:Provider Instructions for Treatment How to Access Health Informa tion Online using Patient Portal and [employer] Apps Indication:Elevated hemoglobin A1c Start:26-May-2021 Instruction Type:Patient Education Patient Instructions Indication:[facility] Start:15-Jan-2021 Instruction Type:Provider Instructions for Treatment How to Access Health Informa tion Online using Patient Portal and [employer] Apps Indication:[facility] EX[facility] Start:15-Jan-2021 Instruction Type:Patient Education Patient Instructions Indication:Anemia Start:02-Nov-2020 Instruction Type:Provider Instructions for Treatment How to Access Health Informa tion Online using Patient Portal and [employer] Apps Indication:Anemia Start:02-Nov-2020 Instruction Type:Patient Education Patient Instructions Indication:Nonsmoker Start:28-Jul-2020 Instruction Type:Provider Instructions for Treatment How to Access Health Informa tion Online using Patient Portal and [employer] Apps Indication:Nonsmoker Start:28-Jul-2020 Instruction Type:Patient Education Patient Instructions Indication:Elevated hemoglobin A1c Start:29-Apr-2020 Instruction Type:Provider Instructions for Treatment How to Access Health Informa tion Online using Patient Portal and [employer] Apps Indication:Elevated hemoglobin A1c Start:29-Apr-2020 Instruction Type:Patient Education Patient Instructions Indication:Abdominal pain Start:01-Apr-2020 Instruction Type:Provider Instructions for Treatment Patient Instructions Indication:Diarrhea Start:27-Mar-2020 Instruction Type:Provider Instructions for Treatment Patient Instructions Indication:Diarrhea Start:26-Mar-2020 Instruction Type:Provider Instructions for Treatment Patient Instructions Indication:Nonsmoker Start:23-Mar-2020 Instruction Type:Provider Instructions for Treatment How to Access Health Informa tion Online using Patient Portal and [employer] Apps Indication:Nonsmoker Start:23-Mar-2020 Instruction Type:Patient Education Patient Instructions Indication:Abdominal pain Start:09-Mar-2020 Instruction Type:Provider Instructions for Treatment How to Access Health Informa tion Online using Patient Portal and [employer] Apps Indication:Abdominal pain Start:09-Mar-2020 Instruction Type:Patient Education [...] How to access health informa tion online Indication:[facility] WELLNESS EXAM Start:14-Sep-2016 Instruction Type:Patient Education How to access health informa tion online - Detail Indication:[facility] WELLNESS EXAM Start:14-Sep-2016 Instruction Type:Patient Education Patient Instructions Indication:[facility]LL[facility] EXAM Start:14-Sep-2016 Instruction Type:Provider Instructions for Treatment How to access health informa tion online Indication:Osteoporosis Start:15-Apr-2016 Instruction Type:Patient Education How to access health informa tion online - Detail Indication:Osteoporosis Start:15-Apr-2016 Instruction Type:Patient Education Patient Instructions Indication:Osteoporosis Start:15-Apr-2016 Instruction Type:Provider Instructions for Treatment How to access health informa tion online Indication:[facility] WELLNESS EXAM Start:11-Sep-2015 Instruction Type:Patient Education How to access health informa tion online - Detail Indication[facility] Start:11-Sep-2015 Instruction Type:Patient Education Patient Instructions Ind[facility] Start:11-Sep-2015 Instruction Type:Provider Instructions for [...] tion Online using Patient Portal and [employer] Indication:Elevated hemoglobin A1c Start:03-Jun-2022 Instruction Type:Patient Education Patient Instructions Indication:[facility] Start:11-Jan-2022 Instruction Type:Provider Instructions for Treatment How to Access Health Informa tion Online using Patient Portal and [employer] Apps Indication:[facility] Start:11-Jan-2022 Instruction Type:Patient Education Patient Instructions Indication:BMI 22.0-22.9, adult Start:10-Sep-2021 Instruction Type:Provider Instructions for Treatment How to Access Health Informa tion Online using Patient Portal and [employer] Indication:BMI 22.0-22.9, adult Start:10-Sep-2021 Instruction Type:Patient Education Patient Instructions Indication:Elevated hemoglobin A1c Start:26-May-2021 Instruction Type:Provider Instructions for Treatment How to Access Health Informa tion Online using Patient Portal and [employer] Apps Indication:Elevated hemoglobin A1c Start:26-May-2021 Instruction Type:Patient Education Patient Instructions Indication:[facility] EX[facility] Start:15-Jan-2021 Instruction Type:Provider Instructions for Treatment How to Access Health Informa tion Online using Patient Portal and [employer] Apps Indication:[facility] EX[facility] Start:15-Jan-2021 Instruction Type:Patient Education Patient Instructions Indication:Anemia Start:02-Nov-2020 Instruction Type:Provider Instructions for Treatment How to Access Health Informa tion Online using Patient Portal and [employer] Apps Indication:Anemia Start:02-Nov-2020 Instruction Type:Patient Education Patient Instructions Indication:Nonsmoker Start:28-Jul-2020 Instruction Type:Provider Instructions for Treatment How to Access Health Informa tion Online using Patient Portal and [employer] Apps Indication:Nonsmoker Start:28-Jul-2020 Instruction Type:Patient Education Patient Instructions Indication:Elevated hemoglobin A1c Start:29-Apr-2020 Instruction Type:Provider Instructions for Treatment How to Access Health Informa tion Online using Patient Portal and [employer] Apps Indication:Elevated hemoglobin A1c Start:29-Apr-2020 Instruction Type:Patient Education Patient Instructions Indication:Abdominal pain Start:01-Apr-2020 Instruction Type:Provider Instructions for Treatment Patient Instructions Indication:Diarrhea Start:27-Mar-2020 Instruction Type:Provider Instructions for Treatment Patient Instructions Indication:Diarrhea Start:26-Mar-2020 Instruction Type:Provider Instructions for Treatment Patient Instructions Indication:Nonsmoker Start:23-Mar-2020 Instruction Type:Provider Instructions for Treatment How to Access Health Informa tion Online using Patient Portal and [employer] Apps Indication:Nonsmoker Start:23-Mar-2020 Instruction Type:Patient Education Patient Instructions Indication:Abdominal pain Start:09-Mar-2020 Instruction Type:Provider Instructions for Treatment How to Access Health Informa tion Online using Patient Portal and [employer] Apps Indication:Abdominal pain Start:09-Mar-2020 Instruction Type:Patient Education [...] tion Online using Patient Portal and [employer] Apps Indication:Elevated hemoglobin A1c Start:03-Jun-2022 Instruction Type:Patient Education Patient Instructions Indication:[facility] Start:11-Jan-2022 Instruction Type:Provider Instructions for Treatment How to Access Health Informa tion Online using Patient Portal and [employer] Apps Indication:[facility] EX[facility] Start:11-Jan-2022 Instruction Type:Patient Education Patient Instructions Indication:BMI 22.0-22.9, adult Start:10-Sep-2021 Instruction Type:Provider Instructions for Treatment How to Access Health Informa tion Online using Patient Portal and [employer] Apps Indication:BMI 22.0-22.9, adult Start:10-Sep-2021 Instruction Type:Patient Education Patient Instructions Indication:Elevated hemoglobin A1c Start:26-May-2021 Instruction Type:Provider Instructions for Treatment How to Access Health Informa tion Online using Patient Portal and [employer] Apps Indication:Elevated hemoglobin A1c Start:26-May-2021 Instruction Type:Patient Education Patient Instructions Indication:[facility] EX[facility] Start:15-Jan-2021 Instruction Type:Provider Instructions for Treatment How to Access Health Informa tion Online using Patient Portal and [employer] Apps Indication:[facility] EX[facility] Start:15-Jan-2021 Instruction Type:Patient Education Patient Instructions Indication:Anemia Start:02-Nov-2020 Instruction Type:Provider Instructions for Treatment How to Access Health Informa tion Online using Patient Portal and [employer] Apps Indication:Anemia Start:02-Nov-2020 Instruction Type:Patient Education Patient Instructions Indication:Nonsmoker Start:28-Jul-2020 Instruction Type:Provider Instructions for Treatment How to Access Health Informa tion Online using Patient Portal and [employer] Apps Indication:Nonsmoker Start:28-Jul-2020 Instruction Type:Patient Education Patient Instructions Indication:Elevated hemoglobin A1c Start:29-Apr-2020 Instruction Type:Provider Instructions for Treatment How to Access Health Informa tion Online using Patient Portal and [employer] Apps Indication:Elevated hemoglobin A1c Start:29-Apr-2020 Instruction Type:Patient Education Patient Instructions Indication:Abdominal pain Start:01-Apr-2020 Instruction Type:Provider Instructions for Treatment Patient Instructions Indication:Diarrhea Start:27-Mar-2020 Instruction Type:Provider Instructions for Treatment Patient Instructions Indication:Diarrhea Start:26-Mar-2020 Instruction Type:Provider Instructions for Treatment Patient Instructions Indication:Nonsmoker Start:23-Mar-2020 Instruction Type:Provider Instructions for Treatment How to Access Health Informa tion Online using Patient Portal and [employer] Apps Indication:Nonsmoker Start:23-Mar-2020 Instruction Type:Patient Education Patient Instructions Indication:Abdominal pain Start:09-Mar-2020 Instruction Type:Provider Instructions for Treatment How to Access Health Informa tion Online using Patient Portal and [employer] Apps Indication:Abdominal pain Start:09-Mar-2020 Instruction Type:Patient Education [...] tion Online using Patient Portal and [employer] Apps Indication:Elevated hemoglobin A1c Start:03-Jun-2022 Instruction Type:Patient Education Patient Instructions Indication:[facility] EXAM Start:11-Jan-2022 Instruction Type:Provider Instructions for Treatment How to Access Health Informa tion Online using Patient Portal and [employer] Apps Indication:[facility] EXAM Start:11-Jan-2022 Instruction Type:Patient Education Patient Instructions Indication:BMI 22.0-22.9, adult Start:10-Sep-2021 Instruction Type:Provider Instructions for Treatment How to Access Health Informa tion Online using Patient Portal and [employer] Apps Indication:BMI 22.0-22.9, adult Start:10-Sep-2021 Instruction Type:Patient Education Patient Instructions Indication:Elevated hemoglobin A1c Start:26-May-2021 Instruction Type:Provider Instructions for Treatment How to Access Health Informa tion Online using Patient Portal and [employer] Apps Indication:Elevated hemoglobin A1c Start:26-May-2021 Instruction Type:Patient Education Patient Instructions Indication:[facility] EXAM Start:15-Jan-2021 Instruction Type:Provider Instructions for Treatment How to Access Health Informa tion Online using Patient Portal and [employer] Apps Indication:[facility] EXAM Start:15-Jan-2021 Instruction Type:Patient Education Patient Instructions Indication:Anemia Start:02-Nov-2020 Instruction Type:Provider Instructions for Treatment How to Access Health Informa tion Online using Patient Portal and [employer] Apps Indication:Anemia Start:02-Nov-2020 Instruction Type:Patient Education Patient Instructions Indication:Nonsmoker Start:28-Jul-2020 Instruction Type:Provider Instructions for Treatment How to Access Health Informa tion Online using Patient Portal and [employer] Apps Indication:Nonsmoker Start:28-Jul-2020 Instruction Type:Patient Education Patient Instructions Indication:Elevated hemoglobin A1c Start:29-Apr-2020 Instruction Type:Provider Instructions for Treatment How to Access Health Informa tion Online using Patient Portal and [employer] Apps Indication:Elevated hemoglobin A1c Start:29-Apr-2020 Instruction Type:Patient Education Patient Instructions Indication:Abdominal pain Start:01-Apr-2020 Instruction Type:Provider Instructions for Treatment Patient Instructions Indication:Diarrhea Start:27-Mar-2020 Instruction Type:Provider Instructions for Treatment Patient Instructions Indication:Diarrhea Start:26-Mar-2020 Instruction Type:Provider Instructions for Treatment Patient Instructions Indication:Nonsmoker Start:23-Mar-2020 Instruction Type:Provider Instructions for Treatment How to Access Health Informa tion Online using Patient Portal and [employer] Indication:Nonsmoker Start:23-Mar-2020 Instruction Type:Patient Education Patient Instructions Indication:Abdominal pain Start:09-Mar-2020 Instruction Type:Provider Instructions for Treatment How to Access Health Informa tion Online using Patient Portal and [employer] Apps Indication:Abdominal pain Start:09-Mar-2020 Instruction Type:Patient Education [...] access health informa tion online - Detail Indication[facility] Start:11-Sep-2015 Instruction Type:Patient Education Patient [...] tion Online using Patient Portal and [employer] Indication:BMI 22.0-22.9, adult Start:12-Sep-2022 Instruction Type:Patient Education Patient Instructions Indication:Elevated hemoglobin A1c Start:03-Jun-2022 Instruction Type:Provider Instructions for Treatment How to Access Health Informa tion Online using Patient Portal and [employer] Apps Indication:Elevated hemoglobin A1c Start:03-Jun-2022 Instruction Type:Patient Education Patient Instructions Indication:[facility] EX[facility] Start:11-Jan-2022 Instruction Type:Provider Instructions for Treatment How to Access Health Informa tion Online using Patient Portal and [employer] Apps Indication:[facility] EXAM Start:11-Jan-2022 Instruction Type:Patient Education Patient Instructions Indication:BMI 22.0-22.9, adult Start:10-Sep-2021 Instruction Type:Provider Instructions for Treatment How to Access Health Informa tion Online using Patient Portal and [employer] Indication:BMI 22.0-22.9, adult Start:10-Sep-2021 Instruction Type:Patient Education Patient Instructions Indication:Elevated hemoglobin A1c Start:26-May-2021 Instruction Type:Provider Instructions for Treatment How to Access Health Informa tion Online using Patient Portal and [employer] Indication:Elevated hemoglobin A1c Start:26-May-2021 Instruction Type:Patient Education Patient Instructions Indication:[facility] Start:15-Jan-2021 Instruction Type:Provider Instructions for Treatment How to Access Health Informa tion Online using Patient Portal and [employer] Indication:[facility] Start:15-Jan-2021 Instruction Type:Patient Education Patient Instructions Indication:Anemia Start:02-Nov-2020 Instruction Type:Provider Instructions for Treatment How to Access Health Informa tion Online using Patient Portal and [employer] Apps Indication:Anemia Start:02-Nov-2020 Instruction Type:Patient Education Patient Instructions Indication:Nonsmoker Start:28-Jul-2020 Instruction Type:Provider Instructions for Treatment How to Access Health Informa tion Online using Patient Portal and [employer] Apps Indication:Nonsmoker Start:28-Jul-2020 Instruction Type:Patient Education Patient Instructions Indication:Elevated hemoglobin A1c Start:29-Apr-2020 Instruction Type:Provider Instructions for Treatment How to Access Health Informa tion Online using Patient Portal and [employer] Apps Indication:Elevated hemoglobin A1c Start:29-Apr-2020 Instruction Type:Patient Education Patient Instructions Indication:Abdominal pain Start:01-Apr-2020 Instruction Type:Provider Instructions for Treatment Patient Instructions Indication:Diarrhea Start:27-Mar-2020 Instruction Type:Provider Instructions for Treatment Patient Instructions Indication:Diarrhea Start:26-Mar-2020 Instruction Type:Provider Instructions for Treatment Patient Instructions Indication:Nonsmoker Start:23-Mar-2020 Instruction Type:Provider Instructions for Treatment How to Access Health Informa tion Online using Patient Portal and [employer] Apps Indication:Nonsmoker Start:23-Mar-2020 Instruction Type:Patient Education Patient Instructions Indication:Abdominal pain Start:09-Mar-2020 Instruction Type:Provider Instructions for Treatment How to Access Health Informa tion Online using Patient Portal and [employer] Apps Indication:Abdominal pain Start:09-Mar-2020 Instruction Type:Patient Education [...] tion Online using Patient Portal and [employer] Apps Indication:BMI 22.0-22.9, adult Start:12-Sep-2022 Instruction Type:Patient Education Patient Instructions Indication:Elevated hemoglobin A1c Start:03-Jun-2022 Instruction Type:Provider Instructions for Treatment How to Access Health Informa tion Online using Patient Portal and [employer] Apps Indication:Elevated hemoglobin A1c Start:03-Jun-2022 Instruction Type:Patient Education Patient Instructions Indication:[facility] Start:11-Jan-2022 Instruction Type:Provider Instructions for Treatment How to Access Health Informa tion Online using Patient Portal and [employer] Apps Indication:[facility] Start:11-Jan-2022 Instruction Type:Patient Education Patient Instructions Indication:BMI 22.0-22.9, adult Start:10-Sep-2021 Instruction Type:Provider Instructions for Treatment How to Access Health Informa tion Online using Patient Portal and [employer] Apps Indication:BMI 22.0-22.9, adult Start:10-Sep-2021 Instruction Type:Patient Education Patient Instructions Indication:Elevated hemoglobin A1c Start:26-May-2021 Instruction Type:Provider Instructions for Treatment How to Access Health Informa tion Online using Patient Portal and [employer] Apps Indication:Elevated hemoglobin A1c Start:26-May-2021 Instruction Type:Patient Education Patient Instructions Indication:[facility] Start:15-Jan-2021 Instruction Type:Provider Instructions for Treatment How to Access Health Informa tion Online using Patient Portal and [employer] Apps Indication:[facility] Start:15-Jan-2021 Instruction Type:Patient Education Patient Instructions Indication:Anemia Start:02-Nov-2020 Instruction Type:Provider Instructions for Treatment How to Access Health Informa tion Online using Patient Portal and [employer] Apps Indication:Anemia Start:02-Nov-2020 Instruction Type:Patient Education Patient Instructions Indication:Nonsmoker Start:28-Jul-2020 Instruction Type:Provider Instructions for Treatment How to Access Health Informa tion Online using Patient Portal and [employer] Apps Indication:Nonsmoker Start:28-Jul-2020 Instruction Type:Patient Education Patient Instructions Indication:Elevated hemoglobin A1c Start:29-Apr-2020 Instruction Type:Provider Instructions for Treatment How to Access Health Informa tion Online using Patient Portal and [employer] Apps Indication:Elevated hemoglobin A1c Start:29-Apr-2020 Instruction Type:Patient Education Patient Instructions Indication:Abdominal pain Start:01-Apr-2020 Instruction Type:Provider Instructions for Treatment Patient Instructions Indication:Diarrhea Start:27-Mar-2020 Instruction Type:Provider Instructions for Treatment Patient Instructions Indication:Diarrhea Start:26-Mar-2020 Instruction Type:Provider Instructions for Treatment Patient Instructions Indication:Nonsmoker Start:23-Mar-2020 Instruction Type:Provider Instructions for Treatment How to Access Health Informa tion Online using Patient Portal and [employer] Apps Indication:Nonsmoker Start:23-Mar-2020 Instruction Type:Patient Education Patient Instructions Indication:Abdominal pain Start:09-Mar-2020 Instruction Type:Provider Instructions for Treatment How to Access Health Informa tion Online using Patient Portal and [employer] Apps Indication:Abdominal pain Start:09-Mar-2020 Instruction Type:Patient Education [...] Informa tion Online using Patient Portal and [employer] Apps Indication:BMI 22.0-22.9, adult Start:12-Sep-2022 Instruction Type:Patient Education Patient Instructions Indication:Elevated hemoglobin A1c Start:03-Jun-2022 Instruction Type:Provider Instructions for Treatment How to Access Health Informa tion Online using Patient Portal and [employer] Apps Indication:Elevated hemoglobin A1c Start:03-Jun-2022 Instruction Type:Patient Education Patient Instructions Indication:[facility] Start:11-Jan-2022 Instruction Type:Provider Instructions for Treatment How to Access Health Informa tion Online using Patient Portal and [employer] Apps Indication:[facility] Start:11-Jan-2022 Instruction Type:Patient Education Patient Instructions Indication:BMI 22.0-22.9, adult Start:10-Sep-2021 Instruction Type:Provider Instructions for Treatment How to Access Health Informa tion Online using Patient Portal and [employer] Apps Indication:BMI 22.0-22.9, adult Start:10-Sep-2021 Instruction Type:Patient Education Patient Instructions Indication:Elevated hemoglobin A1c Start:26-May-2021 Instruction Type:Provider Instructions for Treatment How to Access Health Informa tion Online using Patient Portal and [employer] Apps Indication:Elevated hemoglobin A1c Start:26-May-2021 Instruction Type:Patient Education Patient Instructions Indication:[facility] Start:15-Jan-2021 Instruction Type:Provider Instructions for Treatment How to Access Health Informa tion Online using Patient Portal and [employer] Apps Indication:[facility] Start:15-Jan-2021 Instruction Type:Patient Education Patient Instructions Indication:Anemia Start:02-Nov-2020 Instruction Type:Provider Instructions for Treatment How to Access Health Informa tion Online using Patient Portal and [employer] Apps Indication:Anemia Start:02-Nov-2020 Instruction Type:Patient Education Patient Instructions Indication:Nonsmoker Start:28-Jul-2020 Instruction Type:Provider Instructions for Treatment How to Access Health Informa tion Online using Patient Portal and [employer] Apps Indication:Nonsmoker Start:28-Jul-2020 Instruction Type:Patient Education Patient Instructions Indication:Elevated hemoglobin A1c Start:29-Apr-2020 Instruction Type:Provider Instructions for Treatment How to Access Health Informa tion Online using Patient Portal and [employer] Apps Indication:Elevated hemoglobin A1c Start:29-Apr-2020 Instruction Type:Patient Education Patient Instructions Indication:Abdominal pain Start:01-Apr-2020 Instruction Type:Provider Instructions for Treatment Patient Instructions Indication:Diarrhea Start:27-Mar-2020 Instruction Type:Provider Instructions for Treatment Patient Instructions Indication:Diarrhea Start:26-Mar-2020 Instruction Type:Provider Instructions for Treatment Patient Instructions Indication:Nonsmoker Start:23-Mar-2020 Instruction Type:Provider Instructions for Treatment How to Access Health Informa tion Online using Patient Portal and [employer] Apps Indication:Nonsmoker Start:23-Mar-2020 Instruction Type:Patient Education Patient Instructions Indication:Abdominal pain Start:09-Mar-2020 Instruction Type:Provider Instructions for Treatment How to Access Health Informa tion Online using Patient Portal and [employer] Apps Indication:Abdominal pain Start:09-Mar-2020 Instruction Type:Patient Education [...] tion Online using Patient Portal and [employer] Apps Indication:BMI 22.0-22.9, adult Start:12-Sep-2022 Instruction Type:Patient Education Patient Instructions Indication:Elevated hemoglobin A1c Start:03-Jun-2022 Instruction Type:Provider Instructions for Treatment How to Access Health Informa tion Online using Patient Portal and [employer] Apps Indication:Elevated hemoglobin A1c Start:03-Jun-2022 Instruction Type:Patient Education Patient Instructions Indication:[facility] Start:11-Jan-2022 Instruction Type:Provider Instructions for Treatment How to Access Health Informa tion Online using Patient Portal and [employer] Apps Indication:[facility] EX[facility] Start:11-Jan-2022 Instruction Type:Patient Education Patient Instructions Indication:BMI 22.0-22.9, adult Start:10-Sep-2021 Instruction Type:Provider Instructions for Treatment How to Access Health Informa tion Online using Patient Portal and [employer] Apps Indication:BMI 22.0-22.9, adult Start:10-Sep-2021 Instruction Type:Patient Education Patient Instructions Indication:Elevated hemoglobin A1c Start:26-May-2021 Instruction Type:Provider Instructions for Treatment How to Access Health Informa tion Online using Patient Portal and [employer] Apps Indication:Elevated hemoglobin A1c Start:26-May-2021 Instruction Type:Patient Education Patient Instructions Indication:[facility] Start:15-Jan-2021 Instruction Type:Provider Instructions for Treatment How to Access Health Informa tion Online using Patient Portal and [employer] Apps Indication:[facility] Start:15-Jan-2021 Instruction Type:Patient Education Patient Instructions Indication:Anemia Start:02-Nov-2020 Instruction Type:Provider Instructions for Treatment How to Access Health Informa tion Online using Patient Portal and [employer] Apps Indication:Anemia Start:02-Nov-2020 Instruction Type:Patient Education Patient Instructions Indication:Nonsmoker Start:28-Jul-2020 Instruction Type:Provider Instructions for Treatment How to Access Health Informa tion Online using Patient Portal and [employer] Apps Indication:Nonsmoker Start:28-Jul-2020 Instruction Type:Patient Education Patient Instructions Indication:Elevated hemoglobin A1c Start:29-Apr-2020 Instruction Type:Provider Instructions for Treatment How to Access Health Informa tion Online using Patient Portal and [employer] Apps Indication:Elevated hemoglobin A1c Start:29-Apr-2020 Instruction Type:Patient Education Patient Instructions Indication:Abdominal pain Start:01-Apr-2020 Instruction Type:Provider Instructions for Treatment Patient Instructions Indication:Diarrhea Start:27-Mar-2020 Instruction Type:Provider Instructions for Treatment Patient Instructions Indication:Diarrhea Start:26-Mar-2020 Instruction Type:Provider Instructions for Treatment Patient Instructions Indication:Nonsmoker Start:23-Mar-2020 Instruction Type:Provider Instructions for Treatment How to Access Health Informa tion Online using Patient Portal and [employer] Apps Indication:Nonsmoker Start:23-Mar-2020 Instruction Type:Patient Education Patient Instructions Indication:Abdominal pain Start:09-Mar-2020 Instruction Type:Provider Instructions for Treatment How to Access Health Informa tion Online using Patient Portal and [employer] Apps Indication:Abdominal pain Start:09-Mar-2020 Instruction Type:Patient Education [...] tion Online using Patient Portal and [employer] Apps Indication:BMI 22.0-22.9, adult Start:12-Sep-2022 Instruction Type:Patient Education Patient Instructions Indication:Elevated hemoglobin A1c Start:03-Jun-2022 Instruction Type:Provider Instructions for Treatment How to Access Health Informa tion Online using Patient Portal and [employer] Apps Indication:Elevated hemoglobin A1c Start:03-Jun-2022 Instruction Type:Patient Education Patient Instructions Indication:[facility] Start:11-Jan-2022 Instruction Type:Provider Instructions for Treatment How to Access Health Informa tion Online using Patient Portal and [employer] Apps Indication:[facility] EX[facility] Start:11-Jan-2022 Instruction Type:Patient Education Patient Instructions Indication:BMI 22.0-22.9, adult Start:10-Sep-2021 Instruction Type:Provider Instructions for Treatment How to Access Health Informa tion Online using Patient Portal and [employer] Apps Indication:BMI 22.0-22.9, adult Start:10-Sep-2021 Instruction Type:Patient Education Patient Instructions Indication:Elevated hemoglobin A1c Start:26-May-2021 Instruction Type:Provider Instructions for Treatment How to Access Health Informa tion Online using Patient Portal and [employer] Apps Indication:Elevated hemoglobin A1c Start:26-May-2021 Instruction Type:Patient Education Patient Instructions Indication:[facility] Start:15-Jan-2021 Instruction Type:Provider Instructions for Treatment How to Access Health Informa tion Online using Patient Portal and [employer] Apps Indication:[facility] EX[facility] Start:15-Jan-2021 Instruction Type:Patient Education Patient Instructions Indication:Anemia Start:02-Nov-2020 Instruction Type:Provider Instructions for Treatment How to Access Health Informa tion Online using Patient Portal and [employer] Apps Indication:Anemia Start:02-Nov-2020 Instruction Type:Patient Education Patient Instructions Indication:Nonsmoker Start:28-Jul-2020 Instruction Type:Provider Instructions for Treatment How to Access Health Informa tion Online using Patient Portal and [employer] Apps Indication:Nonsmoker Start:28-Jul-2020 Instruction Type:Patient Education Patient Instructions Indication:Elevated hemoglobin A1c Start:29-Apr-2020 Instruction Type:Provider Instructions for Treatment How to Access Health Informa tion Online using Patient Portal and [employer] Apps Indication:Elevated hemoglobin A1c Start:29-Apr-2020 Instruction Type:Patient Education Patient Instructions Indication:Abdominal pain Start:01-Apr-2020 Instruction Type:Provider Instructions for Treatment Patient Instructions Indication:Diarrhea Start:27-Mar-2020 Instruction Type:Provider Instructions for Treatment Patient Instructions Indication:Diarrhea Start:26-Mar-2020 Instruction Type:Provider Instructions for Treatment Patient Instructions Indication:Nonsmoker Start:23-Mar-2020 Instruction Type:Provider Instructions for Treatment How to Access Health Informa tion Online using Patient Portal and [employer] Apps Indication:Nonsmoker Start:23-Mar-2020 Instruction Type:Patient Education Patient Instructions Indication:Abdominal pain Start:09-Mar-2020 Instruction Type:Provider Instructions for Treatment How to Access Health Informa tion Online using Patient Portal and [employer] Apps Indication:Abdominal pain Start:09-Mar-2020 Instruction Type:Patient Education [...] for referral (narrative)[facility]: Family History No Family History [...] ructions Indication:Low [facility] [...] Dates Details How to access health informa [employer] online Indication:Elevated hemoglobin A1c Start:29-Oct-2018 Instruction Type:Patient [...] EXAM Start:14-Sep-2016 Instruction Type:Patient Education Patient Instructions [facility] Start:14-Sep-2016 Instruction Type:Provider Instructions for [...] access health informa tion online - Detail Indication[facility] Start:11-Sep-2015 Instruction Type:Patient Education Patient [...] access health informa tion online - Detail Indication[facility] Start:14-Sep-2016 Instruction Type:Patient Education Patient Instructions Ind[facility] Start:14-Sep-2016 Instruction Type:Provider Instructions for Treatment How to access health informa tion online Indication:Osteoporosis Start:15-Apr-2016 Instruction Type:Patient Education How to access health informa tion online - Detail Indication:Osteoporosis Start:15-Apr-2016 Instruction Type:Patient Education Patient Instructions Indication:Osteoporosis Start:15-Apr-2016 Instruction Type:Provider Instructions for Treatment How to access health informa tion online Indication:[facility] EXAM Start:11-Sep-2015 Instruction Type:Patient Education How to access health informa tion online - Detail Indication:[facility] WELLNESS EXAM Start:11-Sep-2015 Instruction Type:Patient Education Patient Instructions Ind[facility] Start:11-Sep-2015 Instruction Type:Provider Instructions for [...] Informa tion Online using Patient Portal and [employer] Indication:Abdominal pain Start:09-Mar-2020 Instruction Type:Patient Education [...] Informa tion Online using Patient Portal and [employer] Apps Indication:Abdominal pain Start:09-Mar-2020 Instruction Type:Patient Education [...] tion Online using Patient Portal and [employer] Apps Indication:Abdominal pain Start:09-Mar-2020 Instruction Type:Patient Education [...] Informa tion Online using Patient Portal and [employer] Indication:Abdominal pain Start:09-Mar-2020 Instruction Type:Patient Education [...] EXAM Start:11-Sep-2015 Instruction Type:Patient Education Patient Instructions Ind[facility] Start:11-Sep-2015 Instruction Type:Provider Instructions for [...] tion Online using Patient Portal and [employer] Apps Indication:Nonsmoker Start:23-Mar-2020 Instruction Type:Patient Education Patient Instructions Indication:Abdominal pain Start:09-Mar-2020 Instruction Type:Provider Instructions for Treatment How to Access Health Informa tion Online using Patient Portal and [employer] Apps Indication:Abdominal pain Start:09-Mar-2020 Instruction Type:Patient Education [...] Informa tion Online using Patient Portal and [employer] Apps Indication:Elevated hemoglobin A1c Start:29-Apr-2020 Instruction Type:Patient Education Patient Instructions Indication:Abdominal pain Start:01-Apr-2020 Instruction Type:Provider Instructions for Treatment Patient Instructions Indication:Diarrhea Start:27-Mar-2020 Instruction Type:Provider Instructions for Treatment Patient Instructions Indication:Diarrhea Start:26-Mar-2020 Instruction Type:Provider Instructions for Treatment Patient Instructions Indication:Nonsmoker Start:23-Mar-2020 Instruction Type:Provider Instructions for Treatment How to Access Health Informa tion Online using Patient Portal and [employer] Apps Indication:Nonsmoker Start:23-Mar-2020 Instruction Type:Patient Education Patient Instructions Indication:Abdominal pain Start:09-Mar-2020 Instruction Type:Provider Instructions for Treatment How to Access Health Informa tion Online using Patient Portal and [employer] Apps Indication:Abdominal pain Start:09-Mar-2020 Instruction Type:Patient Education [...] EXAM Start:14-Sep-2016 Instruction Type:Patient Education Patient Instructions Ind[facility] Start:14-Sep-2016 Instruction Type:Provider Instructions for Treatment How to access health informa tion online Indication:Osteoporosis Start:15-Apr-2016 Instruction Type:Patient Education How to access health informa tion online - Detail Indication:Osteoporosis Start:15-Apr-2016 Instruction Type:Patient Education Patient Instructions Indication:Osteoporosis Start:15-Apr-2016 Instruction Type:Provider Instructions for Treatment How to access health informa tion online Indication:[facility] WELLNESS EXAM Start:11-Sep-2015 Instruction Type:Patient Education How to access health informa tion online - Detail Indication[facility] Start:11-Sep-2015 Instruction Type:Patient Education Patient Instructions Ind[facility] Start:11-Sep-2015 Instruction Type:Provider Instructions for [...] ructions Indication:Low Back [facility] Patient [facility] [...] access health informa tion online - Detail Ind[facility] Start:11-Sep-2015 Instruction Type:Patient Education Patient [...] Records Found Name Dates Details Immunization Registry [place] - Effective on 05/26/2017. Expiration date unspecified Effective:26-May-2017 Name Dates Details Immunization Registry [place] - Effective on 05/26/2017. Expiration date unspecified Effective:26-May-2017 Name Dates Details Living Will - Effective on . Expiration date unspecified. Scanned Document is available upon request. Effective:03-May-2018 Immunization Registry [place] - Effective on 05/26/2017. Expiration date unspecified Effective:26-May-2017 Name Dates Details Living Will - Effective on . Expiration date unspecified. Scanned Document is available upon request. Effective:03-May-2018 Immunization Registry [place] - Effective on 05/26/2017. Expiration date unspecified Effective:26-May-2017 Name Dates Details Living Will - Effective on . Expiration date unspecified. Scanned Document is available upon request. Effective:03-May-2018 Immunization Registry [place] - Effective on 05/26/2017. Expiration date unspecified Effective:26-May-2017 Name Dates Details Living Will - Effective on . Expiration date unspecified. Scanned Document is available upon request. Effective:03-May-2018 Immunization Registry [place] - Effective on 05/26/2017. Expiration date unspecified Effective:26-May-2017 Name Dates Details Living Will - Effective on . Expiration date unspecified. Scanned Document is available upon request. Effective:03-May-2018 Immunization Registry [place] - Effective on 05/26/2017. Expiration date unspecified Effective:26-May-2017 Name Dates Details Living Will - Effective on . Expiration date unspecified. Scanned Document is available upon request. Effective:03-May-2018 Immunization Registry [place] - Effective on 05/26/2017. Expiration date unspecified Effective:26-May-2017 Name Dates Details Living Will - Effective on . Expiration date unspecified. Scanned Document is available upon request. Effective:03-May-2018 Immunization Registry [place] - Effective on 05/26/2017. Expiration date unspecified Effective:26-May-2017 Name Dates Details Living Will - Effective on . Expiration date unspecified. Scanned Document is available upon request. Effective:03-May-2018 Immunization Registry [place] - Effective on 05/26/2017. Expiration date unspecified Effective:26-May-2017 Name Dates Details Living Will - Effective on . Expiration date unspecified. Scanned Document is available upon request. Effective:03-May-2018 Immunization Registry [place] - Effective on 05/26/2017. Expiration date unspecified Effective:26-May-2017 Name Dates Details Living Will - Effective on . Expiration date unspecified. Scanned Document is available upon request. Effective:03-May-2018 Immunization Registry [place] - Effective on 05/26/2017. Expiration date unspecified Effective:26-May-2017 Name Dates Details Living Will - Effective on . Expiration date unspecified. Scanned Document is available upon request. Effective:03-May-2018 Immunization Registry [place] - Effective on 05/26/2017. Expiration date unspecified Effective:26-May-2017 Name Dates Details Living Will - Effective on . Expiration date unspecified. Scanned Document is available upon request. Effective:03-May-2018 Immunization Registry [place] - Effective on 05/26/2017. Expiration date unspecified Effective:26-May-2017 Name Dates Details Living Will - Effective on . Expiration date unspecified. Scanned Document is available upon request. Effective:03-May-2018 Immunization Registry [place] - Effective on 05/26/2017. Expiration date unspecified Effective:26-May-2017 Name Dates Details Living Will - Effective on . Expiration date unspecified. Scanned Document is available upon request. Effective:03-May-2018 Immunization Registry [place] - Effective on 05/26/2017. Expiration date unspecified Effective:26-May-2017 Name Dates Details Living Will - Effective on . Expiration date unspecified. Scanned Document is available upon request. Effective:03-May-2018 Immunization Registry [place] - Effective on 05/26/2017. Expiration date unspecified Effective:26-May-2017 Name Dates Details Living Will - Effective on . Expiration date unspecified. Scanned Document is available upon request. Effective:03-May-2018 Immunization Registry [place] - Effective on 05/26/2017. Expiration date unspecified Effective:26-May-2017 Name Dates Details Living Will - Effective on . Expiration date unspecified. Scanned Document is available upon request. Effective:03-May-2018 Immunization Registry [place] - Effective on 05/26/2017. Expiration date unspecified Effective:26-May-2017 Name Dates Details Living Will - Effective on . Expiration date unspecified. Scanned Document is available upon request. Effective:03-May-2018 Immunization Registry [place] - Effective on 05/26/2017. Expiration date unspecified Effective:26-May-2017 Name Dates Details Living Will - Effective on . Expiration date unspecified. Scanned Document is available upon request. Effective:03-May-2018 Immunization Registry [place] - Effective on 05/26/2017. Expiration date unspecified Effective:26-May-2017 Name Dates Details Living Will - Effective on . Expiration date unspecified. Scanned Document is available upon request. Effective:03-May-2018 Immunization Registry [place] - Effective on 05/26/2017. Expiration date unspecified Effective:26-May-2017 Name Dates Details Living Will - Effective on . Expiration date unspecified. Scanned Document is available upon request. Effective:03-May-2018 Immunization Registry [place] - Effective on 05/26/2017. Expiration date unspecified Effective:26-May-2017 Name Dates Details Living Will - Effective on . Expiration date unspecified. Scanned Document is available upon request. Effective:03-May-2018 Immunization Registry [place] - Effective on 05/26/2017. Expiration date unspecified Effective:26-May-2017 Name Dates Details Living Will - Effective on . Expiration date unspecified. Scanned Document is available upon request. Effective:03-May-2018 Immunization Registry [place] - Effective on 05/26/2017. Expiration date unspecified Effective:26-May-2017 Name Dates Details Living Will - Effective on . Expiration date unspecified. Scanned Document is available upon request. Effective:03-May-2018 Immunization Registry [place] - Effective on 05/26/2017. Expiration date unspecified Effective:26-May-2017 Advance Directive Response Recorded Date/ Time Living Will Yes March 12 3:53pm Power of Bricklayer Yes March 12 021 3:53pm Name Dates Details Living Will - Effective on . Expiration date unspecified. Scanned Document is available upon request. Effective:03-May-2018 Immunization Registry [place] - Effective on 05/26/2017. Expiration date unspecified Effective:26-May-2017 Name Dates Details Living Will - Effective on . Expiration date unspecified. Scanned Document is available upon request. Effective:03-May-2018 Immunization Registry [place] - Effective on 05/26/2017. Expiration date unspecified Effective:26-May-2017 Name Dates Details Living Will - Effective on . Expiration date unspecified. Scanned Document is available upon request. Effective:03-May-2018 Immunization Registry [place] - Effective on 05/26/2017. Expiration date unspecified Effective:26-May-2017 Name Dates Details Living Will - Effective on . Expiration date unspecified. Scanned Document is available upon request. Effective:03-May-2018 Immunization Registry [place] - Effective on 05/26/2017. Expiration date unspecified Effective:26-May-2017 Name Dates Details Living Will - Effective on . Expiration date unspecified. Scanned Document is available upon request. Effective:03-May-2018 Immunization Registry [place] - Effective on 05/26/2017. Expiration date unspecified Effective:26-May-2017 Documents on File Type Date Recorded Patient Logistics Service Representative Expl anation Advance Directive(s) 01/02/2012 5:25 PM Advance Directive(s) 04/21/2010 Advance Directive(s) 04/20/2006 Name Dates Details Living Will - Effective on . Expiration date unspecified. Scanned Document is available upon request. Effective:03-May-2018 Immunization Registry [place] - Effective on 05/26/2017. Expiration date unspecified Effective:26-May-2017 Name Dates Details Living Will - Effective on . Expiration date unspecified. Scanned Document is available upon request. Effective:03-May-2018 Immunization Registry [place] - Effective on 05/26/2017. Expiration date unspecified Effective:26-May-2017 Name Dates Details Living Will - Effective on . Expiration date unspecified. Scanned Document is available upon request. Effective:03-May-2018 Immunization Registry [place] - Effective on 05/26/2017. Expiration date unspecified Effective:26-May-2017 Name Dates Details Living Will - Effective on . Expiration date unspecified. Scanned Document is available upon request. Effective:03-May-2018 Immunization Registry [place] - Effective on 05/26/2017. Expiration date unspecified Effective:26-May-2017 Advance Directive Response Recorded Date/ Time Living Will Yes March 12 2:53pm Power of Bricklayer Yes March 12 021 2:53pm Name Dates Details Living Will - Effective on . Expiration date unspecified. Scanned Document is available upon request. Effective:03-May-2018 Immunization Registry [place] - Effective on 05/26/2017. Expiration date unspecified Effective:26-May-2017 Name Dates Details Living Will - Effective on . Expiration date unspecified. Scanned Document is available upon request. Effective:03-May-2018 Immunization Registry [place] - Effective on 05/26/2017. Expiration date unspecified Effective:26-May-2017 Name Dates Details Living Will - Effective on . Expiration date unspecified. Scanned Document is available upon request. Effective:03-May-2018 Immunization Registry [place] - Effective on 05/26/2017. Expiration date unspecified Effective:26-May-2017 Name Dates Details Living Will - Effective on . Expiration date unspecified. Scanned Document is available upon request. Effective:03-May-2018 Immunization Registry [place] - Effective on 05/26/2017. Expiration date unspecified Effective:26-May-2017 Name Dates Details Living Will - Effective on . Expiration date unspecified. Scanned Document is available upon request. Effective:03-May-2018 Immunization Registry [place] - Effective on 05/26/2017. Expiration date unspecified Effective:26-May-2017 Name Dates Details Living Will - Effective on . Expiration date unspecified. Scanned Document is available upon request. Effective:03-May-2018 Immunization Registry [place] - Effective on 05/26/2017. Expiration date unspecified Effective:26-May-2017 Name Dates Details Living Will - Effective on . Expiration date unspecified. Scanned Document is available upon request. Effective:03-May-2018 Immunization Registry [place] - Effective on 05/26/2017. Expiration date unspecified Effective:26-May-2017 Name Dates Details Living Will - Effective on . Expiration date unspecified. Scanned Document is available upon request. Effective:03-May-2018 Immunization Registry [place] - Effective on 05/26/2017. Expiration date unspecified Effective:26-May-2017 Name Dates Details Living Will - Effective on . Expiration date unspecified. Scanned Document is available upon request. Effective:03-May-2018 Immunization Registry [place] - Effective on 05/26/2017. Expiration date unspecified Effective:26-May-2017 Advance Directive Response Recorded Date/ Time Living Will Yes March 12 3:53pm Do you have a Healthcare Power of Bricklayer? Yes March 12, 2020 3:53pm Chief Complaint and Reason for Visit Chief Complaint Admit Date 1 Y FU/MOVED FROM [facility] June 04, 2024 1: 27pm Reason for [...] 27, 2024 3:44pm 1 Y FU/MOVED FROM [facility] June 04, 2024 1: 27pm Chief Complaint Admit Date XRAY October 11, 2024 10: 28am Chief Complaint Admit Date XRAY October 11, 2024 10: 28am SCREENING OSTEO November 20, 2024 7:49am Summary Purpose Additional Source Comments Goals (unrecognized [...] or prosecute any alcohol or drug abuse patient.[facility] Reason for Visit (unrecogniz ed section and content) Reason Comments Recheck Care Teams (unrecognized sec tion and content) Aesthetician Relationship Specialty Start Date End Date Gia Grover DO PCP - General 02/09/06 Team Status: Active Member Role Status Dates Dr. Gia Grover DO Family Provider Active Dr. Gia Grover DO Primary Care Provider Active Team Status: Inactive Member Role Status Dates Dr. Gia Grover DO Primary Care Provider Active Dr. Kevin Rose MD Attending Provider Active Team Status: Active Member Role Status Dates Dr. Gia Grover DO Primary Care Provider, Other Provi brittany Active Dr. Kevin Rose MD Attending Provider Active Team Status: Active Member Role Status Dates Dr. Gia Grover DO Primary Care Provider Active Dr. Raul Acuna MD Attending Provider Active Team Status: Inactive Member Role Status Dates Dr. Gia Grover DO Primary Care Provider, Attending P rovider Active Team Status: Active Member Role Status Dates Dr. Gia Grover DO Primary Care Provide r, Attending Provider, Referring Provider Active Team Status: Inactive Member Role Status Dates Dr. Gia Grover DO Primary Care Provide r, Attending Provider, Referring Provider Active Team Status: Inactive Member Role Status Dates Dr. Gia Grover DO Primary Care Provider, Referring P rovider Active Dr. Kevin Rose MD Attending Provider Active Team Status: Active Member Role Status Dates Dr. Gia Grover DO Primary Care Provider Active Denise Perez Attending Provider Active Team Status: Inactive Member Role Status Dates Dr. Gia Grover DO Primary Care Provider, Referring P rovider Active Myles Johnson CEMENT FINISHING SUPERVISOR, CEMENT FINISHING SUPERVISOR-C Attending Provider Active Team Status: Active Member Role Status Dates Dr. Gia Grover DO Primary Care Provider Active Team Status: Inactive Member Role Status Dates Dr. Gia Grover DO Primary Care Provider Active Start: March 19, 2024 End: March 19, 2024 Dr. Gia Grover DO Attending Provider Active St art: March 19, 2024 End: March 19, 2024 Dr. Gia Grover DO Referring Provider Active St art: March 19, 2024 End: March 19, 2024 Team Status: Inactive Member Role Status Dates Dr. Gia Grover DO Primary Care Provider Active Start: March 27, 2024 End: March 27, 2024 Dr. Gia Grover DO Attending Provider Active St art: March 27, 2024 End: March 27, 2024 Dr. Gia Grover DO Referring Provider Active St art: March 27, 2024 End: March 27, 2024 Team Status: Inactive Member Role Status Dates Dr. Gia Grover DO Primary Care Provider Active Start: June 04, 2024 End: June 04, 2024 Dr. Gia Grover DO Referring Provider Active St art: June 04, 2024 End: June 04, 2024 Myles Johnson CEMENT FINISHING SUPERVISOR, CEMENT FINISHING SUPERVISOR-C Attending Provider Active S tart: June 04, 2024 End: June 04, 2024 Team Status: Inactive Member Role Status Dates Dr. Gia Grover DO Primary Care Provider Active Start: June 19, 2024 End: June 19, 2024 Dr. Gia Grover DO Attending Provider Active St art: June 19, 2024 End: June 19, 2024 Dr. Gia Grover DO Referring Provider Active St art: June 19, 2024 End: June 19, 2024 Team Status: Inactive Member Role Status Dates Dr. Gia Grover DO Primary Care Provider Active Start: August 16, 2024 End: August 16, 2024 Dr. Gia Grover DO Attending Provider Active St art: August 16, 2024 End: August 16, 2024 Dr. Gia Grover DO Referring Provider Active St art: August 16, 2024 End: August 16, 2024 Team Status: Active Member Role/Relationship Status Dates Dr. Gia Grover DO Primary Care Provider Active Team Status: Inactive Member Role/Relationship Status Dates Dr. Gia Grover DO Primary Care Provider Active Start: June 19, 2024 End: June 19, 2024 Dr. Gia Grover DO Attending Provider Active St art: June 19, 2024 End: June 19, 2024 Dr. Gia Grover DO Referring Provider Active St art: June 19, 2024 End: June 19, 2024 Team Status: Inactive Member Role/Relationship Status Dates Dr. Gia Grover DO Primary Care Provider Active Start: August 16, 2024 End: August 16, 2024 Dr. Gia Grover DO Attending Provider Active St art: August 16, 2024 End: August 16, 2024 Dr. Gia Grover DO Referring Provider Active St art: August 16, 2024 End: August 16, 2024 Team Status: Active Member Role/Relationship Status Dates Dr. Gia Grover DO Primary Care Provider Active Start: October 05, 2024 Dr. Gia Grover DO Attending Provider Active St art: October 05, 2024 Dr. Gia Grover DO Referring Provider Active St art: October 05, 2024 Team Status: Inactive Member Role/Relationship Status Dates Dr. Gia Grover DO Primary Care Provider Active Start: October 11, 2024 End: October 11, 2024 Dr. Kevin Rose MD Attending Provider Active S tart: October 11, 2024 End: October 11, 2024 Team Status: Inactive Member Role/Relationship Status Dates Dr. Gia Grover DO Primary Care Provider Active Start: October 05, 2024 End: October 05, 2024 Dr. Gia Grover DO Attending Provider Active St art: October 05, 2024 End: October 05, 2024 Dr. Gia Gorver DO Referring Provider Active St art: October 05, 2024 End: October 05, 2024 Team Status: Active Member Role/Relationship Status Dates Dr. Gia Grover DO Primary care physician Active Team Status: Inactive Member Role/Relationship Status Dates Dr. Gia Grover DO Primary care physician Active Start: August 16, 2024 End: August 16, 2024 Dr. Gia Grover DO Attending physician Active S tart: August 16, 2024 End: August 16, 2024 Dr. Gia Grover DO Referring Provider Active St art: August 16, 2024 End: August 16, 2024 Team Status: Inactive Member Role/Relationship Status Dates Dr. Gia Grover DO Primary care physician Active Start: October 05, 2024 End: October 05, 2024 Dr. Gia Grover DO Attending physician Active S tart: October 05, 2024 End: October 05, 2024 Dr. Gia Grover DO Referring Provider Active St art: October 05, 2024 End: October 05, 2024 Team Status: Inactive Member Role/Relationship Status Dates Dr. Gia Grover DO Primary care physician Active Start: October 11, 2024 End: October 11, 2024 Dr. Kevin Rose MD Attending physician Active Start: October 11, 2024 End: October 11, 2024 Team Status: Inactive Member Role/Relationship Status Dates Dr. Gia Grover DO Primary care physician Active Start: November 20, 2024 End: November 20, 2024 Dr. Gia Grover DO Attending physician Active S tart: November 20, 2024 End: November 20, 2024 Dr. Gia Grover DO Referring Provider Active St art: November 20, 2024 End: November 20, 2024 INFORMATION SOURCE (unrecogn ized section and content) DATE CREATED AUTHOR 12/26/2021 [facility] DATE CREATED AUTHOR AUTHOR'S ORGANIZ ATION 06/08/2022 [facility] DATE CREATED AUTHOR AUTHOR'S ORGANIZ ATION 12/09/2024 [facility] FOR RECORDS PERTAINING TO PATIENTS [...] BE BASED ON THE PRIMARY CLINICAL RECORDS. [employer] provides no warranty or guarantee of the accuracy or completeness of information in this document.
--- NOTE | 2024-12-28 11:12 | EDS_ITS ---
HPI History of Present Illness Chief Complaint: Chest Pain Narrative Narrative: This is a an 84-year-old female who presents for an isolated episode of chest pain. The patient states at 3 AM last night she had 2-minute episode of chest pain. She describes as a muscle spasm across the left chest and to the left side of her abdomen. She had no associated symptoms such as shortness of breath, nausea, vomiting or diarrhea pheresis. Patient states pain did not radiate into the neck, shoulder, or back. Patient was laying at rest when it happened. She has not had any recurrence. There were no alleviating or exacerbating factors. No pain with deep inspiration. No recent infectious symptoms with cough, congestion or sore throat. No fevers or chills. No recent falls or injuries. The patient states she did go to a workout class yesterday. Patient has not had any back or flank pain. No urinary symptoms. No lower extremity pain or swelling. The patient is on 20 mg of Lasix daily but otherwise no antihypertensive, no cholesterol medications and she is not a diabetic. She does not drink alcohol or smoke tobacco. [facility] Medical History Dyspnea on exertion Enterocolitis Dehydration Tachycardia Diarrhea Abdominal pain Small vessel disease, cerebrovascular Syncope Atherosclerosis Osteoarthritis Cardiac arrhythmia Home Medications ?Medication ?Instructions ?Recorded ?Last Taken ?Type cholecalciferol (vitamin D3) 25 50 mcg PO DAILY SUPPLE MENT 03/12/20 12/28/24 History mcg (1,000 unit) capsule furosemide 20 mg tablet 20 mg PO DAILY EDEMA #90 tab s 01/10/24 12/28/24 Rx ibandronate 150 mg tablet 150 mg PO QMONTH [facility] 06/04/24 12/04/24 History acetaminophen 500 mg capsule 500 mg PO Q6H PRN fever o r pain 12/28/24 12/27/24 History calcium carbonate (Calcium 500) 500 mg PO DAILY SUPPLE MENT 12/28/24 12/28/24 History Allergy/AdvReac Type Severity Reaction Status Date / Time No Known Allergies Allergy Verified 12/28/24 09:41 Family History Mother Colon cancer Breast cancer Hypertension Father Colon cancer Surgical History History of colonoscopy History of esophagogastroduodenoscopy (EGD) History of right inguinal hernia repair Social History Smoking Status: Never smoker alcohol intake: current alcohol intake frequency: holidays/special occasions only substance use type: does not use caffeine: Yes Type: coffee Number of servings: 1 and tea Number of servings: 1 ROS ROS ED Constitutional Constitutional ED: Reports as per HPI; Denies chills, fever(s) or headache(s) ENT ENT ED: Denies rhinorrhea or sore throat Cardiovascular Cardiovascular: Denies chest pain, dyspnea, orthopnea, palpitations, paroxysmal nocturnal dyspnea or racing heartbeat Respiratory/Chest Respiratory/Chest: Denies dyspnea, dyspnea on exertion, orthopnea or paroxysmal nocturnal dyspnea Gastrointestinal Gastrointestinal: Denies nausea or vomiting Genitourinary Genitourinary ED: Reports flank pain Integumentary Denies rash Neurologic Neurologic: Reports other Details: No dizziness, lightheadedness, or syncope ; Denies headache(s) or weakness Psychiatric Psychiatric: Reports none Hematologic/Lymphatic Hematologic/Lymphatic: Reports none Allergic/Immunologic Allergic/Immunologic ED: Reports none EXAM Physical Exam Const Vital Signs: 12/28/24 09:41 12/28/24 10:43 12/28/24 11:51 Temperature 98.7 F Temperature Source Oral Pulse Rate 76 57 L Respiratory Rate 18 21 H Respiratory Effort Normal Non-Labored Respiratory Pattern Normal Blood Pressure 149/72 H 146/68 H Blood Pressure Mean 97 94 Pulse Ox 100 100 Oxygen Delivery Method Room Air Room Air 12/28/24 12:50 12/28/24 13:22 Temperature 97.8 F Temperature Source Pulse Rate 58 L 59 L Respiratory Rate 14 14 Respiratory Effort Respiratory Pattern Blood Pressure 157/65 H 157/72 H Blood Pressure Mean 95 100 Pulse Ox 100 100 Oxygen Delivery Method Room Air Positive well nourished, well developed, oriented x3 and healthy appearing General Appearance ED: active, cooperative and well developed Orientation / Consciousness: awake and oriented to person Exam Limitations: no limitations Nutritional Appearance: Negative for overweight HEENT Reports normocephalic, head/scalp atraumatic, moist mucous membranes and nasal mucous membranes and turbinates normal normocephalic, normal to inspection and atraumatic Face and Sinus: normal facial exam Nose: external nose normal and nares normal External Ear: external ears normal Mouth ED: Yes oral and palatal mucosa normal, Yes lips normal and Yes tongue normal Mouth: oral and palatal mucosa normal, lips normal and tongue normal Throat: posterior oropharynx normal Eyes PERRL, EOMs intact bilaterally and conjunctivae normal General Eye ED: Yes normal appearance of both eyes Visual Acuity: acuity normal Eyelid: eyelids normal Conjunctiva: conjunctiva normal Sclera: sclera normal Cornea: cornea normal Pupil: PERRL and accommodation reflex normal EOM: EOM abnormal Neck full ROM Lymph Lymphatic: no lymphadenopathy noted Chest Wall inspection of chest normal Chest: abnormal inspection of the chest Resp normal respiratory effort and normal air movement Effort and Inspection: able to speak in complete sentences and symmetric chest movement Auscultation: clear to auscultation bilaterally Cardio regular rate and regular rhythm Rate: regular rate Peripheral Pulses: pulses 2+ throughout GI normal to inspection, nondistended, normoactive bowel sounds Rectal Exam: deferred Back/Spine normal ROM and normal to inspection Cervical Spine: cervical ROM normal Extremity normal to inspection, full ROM and normal capillary refill General Extremety ED: Yes other findings General Extremity: other findings Other Details: No swelling or edema in the LE Neuro oriented x3, CN's II-XII intact bilaterally, moves all extremities and no focal motor deficits Sensorium / Orientation: awake and alert Motor Exam: strength 5/5 throughout Psych mental status grossly normal Appearance: grossly normal and appropriate Speech: normal speech Skin no rashes or lesions noted General Skin Exam: other Heart Score History: Slightly/Non-Suspicious ECG: Normal Age: >/= 65 years Risk Factors: 1 or 2 Risk Factors Troponin: </= Normal Limit Score: 3 MDM MDM MDM Narrative Medical decision making narrative: Patient presented with an isolated episode of chest pain last evening. She is currently asymptomatic and all symptoms resolved. The description of the chest pain is very atypical in nature. Not consistent with any unstable angina. Today the patient has a slightly elevated blood pressure but otherwise normal vital signs. She is in no acute distress. No reproducible pain. Review of lab work she has a grossly normal CBC. Normal electrolytes and renal function as well on BMP. Her troponin levels are 17 and 15, respectively. They are flat with no elevation. Her EKG is unchanged from prior EKGs. No acute ischemic changes or arrhythmias. Chest x-ray shows no acute findings either. With the very atypical nature of the pain and her being completely asymptomatic now, I do not feel she needs any further cardiac workup or admission at this point. I encouraged her to follow-up with her previously established physicians this week. She was given strict return precautions. All questions answered. Patient was discharged home today Lab Data Labs: Laboratory Results - last 24 hr 12/28/24 12/28/24 10:36 12:32 WBC 4.8 RBC 4.29 Hgb 13.0 Hct 39.0 MCV 90.9 MCH 30.3 MCHC 33.3 RDW Std Deviation 44.3 H RDW Coeff of Thee 13.3 Plt Count 200 MPV 10.0 Immature Gran % (Auto) 0.200 Neut % (Auto) 60.0 Lymph % (Auto) 24.6 [place] % (Auto) 11.2 H Eos % (Auto) 2.9 Baso % (Auto) 1.1 H Absolute Neuts (auto) 2.9 Absolute Lymphs (auto) 1.17 Nucleated RBC % 0 Sodium 141 Potassium 4.2 Chloride 104 Carbon Dioxide 26.3 Anion Gap 10 BUN 27 H Creatinine 0.90 Estim Creat Clear Calc 39.18 L Est GFR (MDRD) Non-Af 63 BUN/Creatinine Ratio 29.8 H Glucose 104 H Calcium 9.5 Troponin T High Sens 17 H Troponin T Hi Sens 2 Hr 15 H Radiography Chest X-Ray - ED: 1 View, Read by ED Physician, Read by Radiologist and - (I personally reviewed the patient's chest x-ray which shows no acute car diopulmonary process. Specifically no consolidation suggesting pneumonia. No pneumothorax. No evidence of any pleural effusion or pulmonary edema.) Diagnostic Testing: Clinical Impression(s) from Imaging Studies Chest X-Ray 12/28/24 10:55 IMPRESSION: No Acute Findings. Reading Location: [id number] EKG EKG showing normal sinus rhythm with a rate of 62 and likely sinus arrhythmia. No ST elevation or depression. No T wave inversions. : Comments: EKG stable from prior EKG on 09/05/22 Discharge Plan Triage Chief Complaint: Chest Pain ED Provider: Jocelyne Price Dx/Rx/DC Orders Clinical Impression: Atypical chest pain Instructions: ED Chest Pain, Uncertain Cause Prescriptions: No Action cholecalciferol (vitamin D3) 25 mcg (1,000 unit) capsule 50 mcg PO DAILY ibandronate 150 mg tablet 150 mg PO QMONTH calcium carbonate [Calcium 500] 500 mg calcium (1,250 mg) tablet,chewable 500 mg PO DAILY acetaminophen 500 mg capsule 500 mg PO Q6H PRN (Reason: fever or pain) furosemide 20 mg tablet 20 mg PO DAILY Qty: 90 3RF Primary Care Provider: Gia Grover Referrals: Kevin Rose MD [Med Staff - Active Staff, Cardiology] Gia Grover DO [Primary Care Provider, Internal Medicine] Print Language: Citizen Of [place] Disposition Disposition: Home, Self Care Discharge Date/Time: 12/28/24 13:27
[2024-12-28 11:51] VITALS: BP 146/68; PULSE 57; RESP 21; O2SAT 100
[2024-12-28 12:01] LABS: Anion Gap 10 (5-15); BUN 27 mg/dL (4-19); BUN/Creat Ratio 29.8 RATIO (10-20); Calcium,Total 9.5 mg/dL (7.6-11.0); Carbon Dioxide 26.3 mmol/L (21.0-32.0); Chloride 104 mmol/L (98-108); Estimated Creatinine Clearance 39.18 ml/min (50-250); Glucose 104 mg/dL (70-99); Potassium 4.2 mmol/L (3.3-5.1); Troponin T High Sensitivity 17 ng/L (<=14)
[2024-12-28 12:50] VITALS: BP 157/65; PULSE 58; RESP 14; O2SAT 100
[2024-12-28 13:00] LABS: Troponin T High Sens 2 HR 15 ng/L (<=14)
[2024-12-28 13:22] VITALS: BP 157/72; PULSE 59; RESP 14; TEMP 36.6; O2SAT 100
== END 2024-12-28 13:27 | disposition home or self-care (01) ==
PROVIDERS: Emergency Provider Emergency Medicine; PCP Internal Medicine; Visit Provider Emergency Medicine
DX: R07.89 Other chest pain (principal); Z79.899 Other long term (current) drug therapy
CPT/HCPCS: 71045; 80048; 84484; 85025; 93005; 99284; A4216

== ENCOUNTER → 2024-12-30 | Outpatient (CLI) | payer MEDICARE, SELFPAY ==
[2024-12-30 12:42] LABS: Red Blood Cells-Urine 0 SEEN /hpf (0-5); Squamous Epithelial Cells - UA 0 SEEN /hpf (5-10)
[2024-12-30 13:00] LABS: Hematocrit 40.6 % (37-47); Hemoglobin 13.1 g/dL (12.0-15.0); Immature Granulocytes Count 0.010 X10^3/uL (0.0-0.0); Mean Corp Hgb Conc 32.3 g/dL (32-36); Mean Corpuscular Volume 93.1 fL (81-99); Mean Platelet Vol. 11.4 fl (6.2-12.0); NRBC Flagged by Analyzer 0 % (0-5); Platelet Count 219 K/mm3 (150-450); RBC Distribution Width CV 13.4 % (11.6-14.6); RBC Distribution Width SD 45.9 fl (35.1-43.9); Red Blood Count 4.36 M/mm3 (4.2-5.4); White Blood Count 5.3 K/mm3 (4.4-11.0)
[2024-12-30 13:02] LABS: Color, Urine Yellow (Yellow); Glucose, Dipstick Normal (Normal); Ketone-Dipstick Negative (Negative); Leukocyte Esterase-Dipstick Negative /ul (Negative); Nitrite-Dipstick Negative (Negative); Occult Blood-Urine Negative /ul (Negative); Protein-Dipstick 30 mg/dl (Negative); Specific Gravity, Urine 1.015 (1.002-1.030); Urine Bilirubin Dipstick Negative (Negative)
[2024-12-30 13:11] LABS: Creatinine, Urine (random) 152.00 mg/dL (28.00-217.00); Microalbumin,Random Urine 21.4 mg/L (<20 mg/L)
[2024-12-30 13:24] LABS: Mucous, Urine 1+ /hpf (<or=2+)
[2024-12-30 13:32] LABS: AST(SGOT) 29 U/L (<=31); Alanine Aminotransfer ALT/SGPT 18 U/L (<=34); Albumin, Serum 4.3 g/dL (3.4-4.8); Alkaline Phosphatase 64 U/L (35-104); Anion Gap 11 (5-15); BUN 25 mg/dL (4-19); BUN/Creat Ratio 25.5 RATIO (10-20); Calcium,Total 10.0 mg/dL (7.6-11.0); Carbon Dioxide 27.5 mmol/L (21.0-32.0); Chloride 102 mmol/L (98-108); Globulin 2.5 g/dL (2.2-4.2); Glucose 90 mg/dL (70-99); Potassium 4.5 mmol/L (3.3-5.1)
== END | disposition home or self-care (01) ==
LOC: LABSPEC 12:15
PROVIDERS: PCP Internal Medicine; Referring Provider Internal Medicine; Visit Provider Internal Medicine
DX: R73.09 Other abnormal glucose (principal)
CPT/HCPCS: 80053; 81001; 82043; 82570; 85025

== ENCOUNTER → 2025-01-01 | Outpatient (CLI) | payer MEDICARE, SELFPAY ==
--- NOTE | 2025-01-01 15:26 | CT_ITS ---
PROCEDURE: CTA CHEST W/WO CONTRAST 01/01/2025 REASON FOR EXAM: CTA CHEST WITH CONTRAST, PE PROTOCOL - ELEVATED DDIMER, SOB, CHES TECHNIQUE: Procedure Code: [id number] Modality: CT Procedure: CTA CHEST W/WO CONTRAST Multiplanar Sagittal and Coronal images were obtained. 3D post processing was performed. CONTRAST: Isovue 370 VOLUME: 61 mL One or more dose reduction techniques were used (e.g., Automated exposure control, adjustment of the mA and/or kV according to patient size, use of iterative reconstruction technique). RADIATION DOSE SUMMARY: CTDlvol: 12.65 mGy DLP: 134.66 mGycm COMPARISON: None. FINDINGS: PULMONARY VESSELS: No filling defects suspicious for pulmonary arterial emboli. Normal caliber main pulmonary trunk. No evidence of right heart strain. LUNGS/PLEURA: Clear. No airspace consolidation or findings of pulmonary edema. No pneumothorax or pleural effusion. Patent central airways. Mild bibasilar scattered linear/discoid atelectasis. Mild biapical pleural-parenchymal thickening/scarring. MEDIASTINUM: Unremarkable. No lymphadenopathy. HEART: Normal size. No pericardial effusion. No significant coronary artery calcification. THORACIC AORTA: Normal in course and caliber. Scant atherosclerotic calcifications. UPPER ABDOMEN: Unremarkable, as visualized. BONES: Minimal degenerative changes of the thoracic spine. CT/CTA Chest W/WO Contrast IMPRESSION: No acute intrathoracic abnormality. No pulmonary arterial emboli. Reading Location: [id number]
== END | disposition home or self-care (01) ==
LOC: CT 15:17
PROVIDERS: PCP Internal Medicine; Referring Provider Internal Medicine; Visit Provider Internal Medicine
DX: R07.89 Other chest pain (principal)
CPT/HCPCS: 71275; Q9967

== ENCOUNTER → 2025-01-01 | Outpatient (CLI) | payer MEDICARE, SELFPAY ==
[2025-01-01 13:45] LABS: D-Dimer Quantitative (DVT/PE) 2.23 FEU/ug/m (0.27-0.49)
== END | disposition home or self-care (01) ==
LOC: LAB 13:02
PROVIDERS: PCP Internal Medicine; Referring Provider Internal Medicine; Visit Provider Internal Medicine
DX: R07.89 Other chest pain (principal)
CPT/HCPCS: 36415; 85379

== ENCOUNTER → 2025-01-23 | Outpatient (CLI) | payer MEDICARE, SELFPAY ==
--- NOTE | 2025-01-23 06:57 | ECHOD_ITS ---
Reason For Study Reason For Study: Chest Pain Procedure This was a 2D Doppler, Color Flow transthoracic echocardiogram. Exam performed in department. Left Ventricle Normal LV size. Left ventricular systolic function is normal. The left ventricular ejection fraction is 65 %. No regional wall motion abnormalities noted. Right Ventricle Normal RV size. Normal systolic function. Atria Normal left atrium. Normal right atrium. Mitral Valve Normal mitral valve. Trivial eccentric mitral valve insufficiency. Tricuspid Valve Normal tricuspid valve. Mild (1+) tricuspid valve insufficiency. Pulmonary artery systolic pressure is 26 mmHg. Aortic Valve Normal aortic valve. Trisinus/trileaflet aortic valve. Pulmonic Valve Normal pulmonic valve. Great Vessels Normal aortic root. The pulmonary artery is normal size. Inferior vena cava collapse with respiration. Pericardium/Pleural No pericardial effusion. MMode/2D Measurements & Calculations LVIDd: 3.7 cm IVSd: 0.84 cm Ao root diam: 3.0 cm LVIDs: 2.3 cm LVPWd: 0.82 cm RVDd: 3.1 cm FS: 37.1 % LAV(MOD-bp): 66.8 ml LVAd ap4: 19.4 cm2 SV(MOD-sp4): 33.7 ml LAV(MOD-bp) Indexed: 41.5 ml/m2 LVLd ap4: 6.2 cm SI(MOD-sp4): 21.0 ml/m2 LAV(MOD-sp2): 60.4 ml EDV(MOD-sp4): 49.8 ml LAV(MOD-sp4): 71.1 ml EDV(sp4-el): 51.6 ml LVAs ap4: 10.1 cm2 LVLs ap4: 5.5 cm ESV(MOD-sp4): 16.0 ml ESV(sp4-el): 15.6 ml EF(MOD-sp4): 67.8 % EF(sp4-el): 69.9 % SV(sp4-el): 36.1 ml LA A4 area: 21.8 cm2 LA dimension(2D): 3.0 cm RA A4 area: 17.9 cm2 TAPSE: 2.2 cm Time Measurements MV dec time: 0.27 sec Doppler Measurements & Calculations MV E max shabbir: 67.6 cm/sec Lat Peak E' Shabbir: 8.5 cm/sec Med Peak E' Shabbir: 6.5 cm/sec MV A max shabbir: 75.1 cm/sec E/E' lat: 7.9 E/E' med: 10.3 MV E/A: 0.90 MV V2 max: 91.5 cm/sec MV P1/2t max shabbir: 79.4 cm/sec Ao V2 max: 124.5 cm/sec MV max P.3 mmHg MV P1/2t: 90.9 msec Ao max P.2 mmHg MV V2 mean: 45.0 cm/sec Ao V2 mean: 86.9 cm/sec MV mean P.97 mmHg MV dec slope: 255.8 cm/sec2 Ao mean P.4 mmHg MV V2 VTI: 26.5 cm MVA(P1/2t): 2.4 cm2 Ao V2 VTI: 34.8 cm AV (velocity ratio): 0.82 LV V1 max: 109.4 cm/sec PA V2 max: 84.4 cm/sec TR max shabbir: 234.6 cm/sec LV V1 max P.8 mmHg TR max P.0 mmHg LV V1 mean P.6 mmHg LV V1 mean: 76.9 cm/sec LV V1 VTI: 28.5 cm ECHO/Echo Complete Interpretation Summary Normal LV size. Left ventricular systolic function is normal. The left ventricular ejection fraction is 65 %. Trivial eccentric mitral valve insufficiency. Mild (1+) tricuspid valve insufficiency. Ordering Physician: Gia Grover Referring Physician: Gia Grover Performed By: Terry Epps RCS
--- OUTSIDE RECORDS SUMMARY | 2025-01-23 07:03 | XMS RPT_ITS | CCD ---
Author online - Detail Indication:[facility] WELL[facility] EXAM Start:30-Jan-2019 [...] tion Online using Patient Portal and [employer] Apps Indication:BMI 22.0-22.9, adult Start:10-Sep-2021 Instruction Type:Patient Education Patient Instructions Indication:Elevated hemoglobin A1c Start:26-May-2021 Instruction Type:Provider Instructions for Treatment How to Access Health Informa tion Online using Patient Portal and [employer] Apps Indication:Elevated hemoglobin A1c Start:26-May-2021 Instruction Type:Patient Education Patient Instructions Indication:[facility] EX[facility] Start:15-Jan-2021 Instruction Type:Provider Instructions for Treatment How to Access Health Informa tion Online using Patient Portal and [employer] Apps Indication:[facility] EXAM Start:15-Jan-2021 Instruction Type:Patient Education Patient Instructions Indication:Anemia Start:02-Nov-2020 Instruction Type:Provider Instructions for Treatment How to Access Health Informa tion Online using Patient Portal and [employer] Apps Indication:Anemia Start:02-Nov-2020 Instruction Type:Patient Education Patient Instructions Indication:Nonsmoker Start:28-Jul-2020 Instruction Type:Provider Instructions for Treatment How to Access Health Informa tion Online using Patient Portal and [employer]rd [employer] Apps Indication:Nonsmoker Start:28-Jul-2020 Instruction Type:Patient Education Patient Instructions Indication:Elevated hemoglobin A1c Start:29-Apr-2020 Instruction Type:Provider Instructions for Treatment How to Access Health Informa tion Online using Patient Portal and [employer] Apps Indication:Elevated hemoglobin A1c Start:29-Apr-2020 Instruction Type:Patient Education Patient Instructions Indication:Abdominal pain Start:01-Apr-2020 Instruction Type:Provider Instructions for Treatment Patient Instructions Indication:Diarrhea Start:27-Mar-2020 Instruction Type:Provider Instructions for Treatment Patient Instructions Indication:Diarrhea Start:26-Mar-2020 Instruction Type:Provider Instructions for Treatment Patient Instructions Indication:Nonsmoker Start:23-Mar-2020 Instruction Type:Provider Instructions for Treatment How to Access Health Informa tion Online using Patient Portal and [employer] Apps Indication:Nonsmoker Start:23-Mar-2020 Instruction Type:Patient Education Patient Instructions Indication:Abdominal pain Start:09-Mar-2020 Instruction Type:Provider Instructions for Treatment How to Access Health Informa tion Online using Patient Portal and [employer] Apps Indication:Abdominal pain Start:09-Mar-2020 Instruction Type:Patient Education [...] EXAM Start:14-Sep-2016 Instruction Type:Patient Education Patient Instructions Indication:[facility] EX[facility] Start:14-Sep-2016 Instruction Type:Provider Instructions for [...] access health informa tion online - Detail Indication:[facility] WELLNESS EXAM Start:11-Sep-2015 Instruction Type:Patient Education Patient Instructions [facility] Start:11-Sep-2015 Instruction Type:Provider Instructions for [...] Phone: Instructions* Name Dates Details Patient Instructions Indication:[facility] WELLNESS EXAM Start:11-Jan-2022 Instruction Type:Provider Instructions for Treatment How to Access Health Informa tion Online using Patient Portal and [employer] Apps Indication:[facility] EXAM Start:11-Jan-2022 Instruction Type:Patient Education Patient Instructions Indication:BMI 22.0-22.9, adult Start:10-Sep-2021 Instruction Type:Provider Instructions for Treatment How to Access Health Informa tion Online using Patient Portal and [employer]rd [employer] Apps Indication:BMI 22.0-22.9, adult Start:10-Sep-2021 Instruction Type:Patient Education Patient Instructions Indication:Elevated hemoglobin A1c Start:26-May-2021 Instruction Type:Provider Instructions for Treatment How to Access Health Informa tion Online using Patient Portal and [employer] Apps Indication:Elevated hemoglobin A1c Start:26-May-2021 Instruction Type:Patient Education Patient Instructions Indication:[facility] EX[facility] Start:15-Jan-2021 Instruction Type:Provider Instructions for Treatment How to Access Health Informa tion Online using Patient Portal and [employer] Apps Indication:[facility] EXAM Start:15-Jan-2021 Instruction Type:Patient Education Patient Instructions Indication:Anemia Start:02-Nov-2020 Instruction Type:Provider Instructions for Treatment How to Access Health Informa tion Online using Patient Portal and [employer] Apps Indication:Anemia Start:02-Nov-2020 Instruction Type:Patient Education Patient Instructions Indication:Nonsmoker Start:28-Jul-2020 Instruction Type:Provider Instructions for Treatment How to Access Health Informa tion Online using Patient Portal and [employer] Apps Indication:Nonsmoker Start:28-Jul-2020 Instruction Type:Patient Education Patient Instructions Indication:Elevated hemoglobin A1c Start:29-Apr-2020 Instruction Type:Provider Instructions for Treatment How to Access Health Informa tion Online using Patient Portal and [employer] Republican Apps Indication:Elevated hemoglobin A1c Start:29-Apr-2020 Instruction Type:Patient Education Patient Instructions Indication:Abdominal pain Start:01-Apr-2020 Instruction Type:Provider Instructions for Treatment Patient Instructions Indication:Diarrhea Start:27-Mar-2020 Instruction Type:Provider Instructions for Treatment Patient Instructions Indication:Diarrhea Start:26-Mar-2020 Instruction Type:Provider Instructions for Treatment Patient Instructions Indication:Nonsmoker Start:23-Mar-2020 Instruction Type:Provider Instructions for Treatment How to Access Health Informa tion Online using Patient Portal and [employer] Republican Apps Indication:Nonsmoker Start:23-Mar-2020 Instruction Type:Patient Education Patient Instructions Indication:Abdominal pain Start:09-Mar-2020 Instruction Type:Provider Instructions for Treatment How to Access Health Informa tion Online using Patient Portal and [employer] Apps Indication:Abdominal pain Start:09-Mar-2020 Instruction Type:Patient Education [...] access health informa tion online - [facility] Instruction Type:Patient Education Patient Instructions [facility] Instruction Type:Provider Instructions for [...] Phone: Instructions* Name Dates Details Patient Instructions Indication:[facility] WELLNESS EXAM Start:11-Jan-2022 Instruction Type:Provider Instructions for Treatment How to Access Health Informa tion Online using Patient Portal and [employer] Apps Indication:[facility] EXAM Start:11-Jan-2022 Instruction Type:Patient Education Patient Instructions Indication:BMI 22.0-22.9, adult Start:10-Sep-2021 Instruction Type:Provider Instructions for Treatment How to Access Health Informa tion Online using Patient Portal and [employer] Apps Indication:BMI 22.0-22.9, adult Start:10-Sep-2021 Instruction Type:Patient Education Patient Instructions Indication:Elevated hemoglobin A1c Start:26-May-2021 Instruction Type:Provider Instructions for Treatment How to Access Health Informa tion Online using Patient Portal and [employer] Apps Indication:Elevated hemoglobin A1c Start:26-May-2021 Instruction Type:Patient Education Patient Instructions Indication:[facility] EX[facility] Start:15-Jan-2021 Instruction Type:Provider Instructions for Treatment How to Access Health Informa tion Online using Patient Portal and [employer] Apps Indication:[facility] EXAM Start:15-Jan-2021 Instruction Type:Patient Education Patient Instructions Indication:Anemia Start:02-Nov-2020 Instruction Type:Provider Instructions for Treatment How to Access Health Informa tion Online using Patient Portal and [employer] Apps Indication:Anemia Start:02-Nov-2020 Instruction Type:Patient Education Patient Instructions Indication:Nonsmoker Start:28-Jul-2020 Instruction Type:Provider Instructions for Treatment How to Access Health Informa tion Online using Patient Portal and [employer] Apps Indication:Nonsmoker Start:28-Jul-2020 Instruction Type:Patient Education Patient Instructions Indication:Elevated hemoglobin A1c Start:29-Apr-2020 Instruction Type:Provider Instructions for Treatment How to Access Health Informa tion Online using Patient Portal and [employer] Apps Indication:Elevated hemoglobin A1c Start:29-Apr-2020 Instruction Type:Patient Education Patient Instructions Indication:Abdominal pain Start:01-Apr-2020 Instruction Type:Provider Instructions for Treatment Patient Instructions Indication:Diarrhea Start:27-Mar-2020 Instruction Type:Provider Instructions for Treatment Patient Instructions Indication:Diarrhea Start:26-Mar-2020 Instruction Type:Provider Instructions for Treatment Patient Instructions Indication:Nonsmoker Start:23-Mar-2020 Instruction Type:Provider Instructions for Treatment How to Access Health Informa tion Online using Patient Portal and [employer] Apps Indication:Nonsmoker Start:23-Mar-2020 Instruction Type:Patient Education Patient Instructions Indication:Abdominal pain Start:09-Mar-2020 Instruction Type:Provider Instructions for Treatment How to Access Health Informa tion Online using Patient Portal and [employer] Apps Indication:Abdominal pain Start:09-Mar-2020 Instruction Type:Patient Education [...] Phone: Instructions* Name Dates Details Patient Instructions Indication:[facility] WELLNESS EXAM Start:11-Jan-2022 Instruction Type:Provider Instructions for Treatment How to Access Health Informa tion Online using Patient Portal and [employer] Apps Indication:[facility] EXAM Start:11-Jan-2022 Instruction Type:Patient Education Patient Instructions Indication:BMI 22.0-22.9, adult Start:10-Sep-2021 Instruction Type:Provider Instructions for Treatment How to Access Health Informa tion Online using Patient Portal and [employer] Apps Indication:BMI 22.0-22.9, adult Start:10-Sep-2021 Instruction Type:Patient Education Patient Instructions Indication:Elevated hemoglobin A1c Start:26-May-2021 Instruction Type:Provider Instructions for Treatment How to Access Health Informa tion Online using Patient Portal and [employer] Apps Indication:Elevated hemoglobin A1c Start:26-May-2021 Instruction Type:Patient Education Patient Instructions Indication:[facility] EXAM Start:15-Jan-2021 Instruction Type:Provider Instructions for Treatment How to Access Health Informa tion Online using Patient Portal and [employer] Apps Indication:[facility] EXAM Start:15-Jan-2021 Instruction Type:Patient Education Patient Instructions Indication:Anemia Start:02-Nov-2020 Instruction Type:Provider Instructions for Treatment How to Access Health Informa tion Online using Patient Portal and [employer] Apps Indication:Anemia Start:02-Nov-2020 Instruction Type:Patient Education Patient Instructions Indication:Nonsmoker Start:28-Jul-2020 Instruction Type:Provider Instructions for Treatment How to Access Health Informa tion Online using Patient Portal and [employer] Apps Indication:Nonsmoker Start:28-Jul-2020 Instruction Type:Patient Education Patient Instructions Indication:Elevated hemoglobin A1c Start:29-Apr-2020 Instruction Type:Provider Instructions for Treatment How to Access Health Informa tion Online using Patient Portal and [employer] Apps Indication:Elevated hemoglobin A1c Start:29-Apr-2020 Instruction Type:Patient Education Patient Instructions Indication:Abdominal pain Start:01-Apr-2020 Instruction Type:Provider Instructions for Treatment Patient Instructions Indication:Diarrhea Start:27-Mar-2020 Instruction Type:Provider Instructions for Treatment Patient Instructions Indication:Diarrhea Start:26-Mar-2020 Instruction Type:Provider Instructions for Treatment Patient Instructions Indication:Nonsmoker Start:23-Mar-2020 Instruction Type:Provider Instructions for Treatment How to Access Health Informa tion Online using Patient Portal and [employer] Apps Indication:Nonsmoker Start:23-Mar-2020 Instruction Type:Patient Education Patient Instructions Indication:Abdominal pain Start:09-Mar-2020 Instruction Type:Provider Instructions for Treatment How to Access Health Informa tion Online using Patient Portal and [employer] Apps Indication:Abdominal pain Start:09-Mar-2020 Instruction Type:Patient Education [...] How to access health informa [facility]ion online [facility] Instruction Type:Patient Education How to access health informa tion online - Detail Indication[facility]-Sep-[facility] Instruction Type:Patient Education Patient Instructions Ind[facility] Start:11-Sep-2015 Instruction Type:Provider Instructions for [...] Phone: Instructions* Name Dates Details Patient Instructions Indication:[facility] WELL[facility] EXAM Start:11-Jan-2022 Instruction Type:Provider Instructions for Treatment How to Access Health Informa tion Online using Patient Portal and [employer] Apps [facility] Start:11-Jan-2022 Instruction Type:Patient Education Patient Instructions Indication:BMI 22.0-22.9, adult Start:10-Sep-2021 Instruction Type:Provider Instructions for Treatment How to Access Health Informa tion Online using Patient Portal and [employer] Apps Indication:BMI 22.0-22.9, adult Start:10-Sep-2021 Instruction Type:Patient Education Patient Instructions Indication:Elevated hemoglobin A1c Start:26-May-2021 Instruction Type:Provider Instructions for Treatment How to Access Health Informa tion Online using Patient Portal and [employer] Apps Indication:Elevated hemoglobin A1c Start:26-May-2021 Instruction Type:Patient Education Patient Instructions Indication:[facility] EXAM Start:15-Jan-2021 Instruction Type:Provider Instructions for Treatment How to Access Health Informa tion Online using Patient Portal and [employer] Apps Indication:[facility] EXAM Start:15-Jan-2021 Instruction Type:Patient Education Patient Instructions Indication:Anemia Start:02-Nov-2020 Instruction Type:Provider Instructions for Treatment How to Access Health Informa tion Online using Patient Portal and [employer] Apps Indication:Anemia Start:02-Nov-2020 Instruction Type:Patient Education Patient Instructions Indication:Nonsmoker Start:28-Jul-2020 Instruction Type:Provider Instructions for Treatment How to Access Health Informa tion Online using Patient Portal and [employer] Apps Indication:Nonsmoker Start:28-Jul-2020 Instruction Type:Patient Education Patient Instructions Indication:Elevated hemoglobin A1c Start:29-Apr-2020 Instruction Type:Provider Instructions for Treatment How to Access Health Informa tion Online using Patient Portal and [employer] Apps Indication:Elevated hemoglobin A1c Start:29-Apr-2020 Instruction Type:Patient Education Patient Instructions Indication:Abdominal pain Start:01-Apr-2020 Instruction Type:Provider Instructions for Treatment Patient Instructions Indication:Diarrhea Start:27-Mar-2020 Instruction Type:Provider Instructions for Treatment Patient Instructions Indication:Diarrhea Start:26-Mar-2020 Instruction Type:Provider Instructions for Treatment Patient Instructions Indication:Nonsmoker Start:23-Mar-2020 Instruction Type:Provider Instructions for Treatment How to Access Health Informa tion Online using Patient Portal and [employer] Apps Indication:Nonsmoker Start:23-Mar-2020 Instruction Type:Patient Education Patient Instructions Indication:Abdominal pain Start:09-Mar-2020 Instruction Type:Provider Instructions for Treatment How to Access Health Informa tion Online using Patient Portal and [employer] Apps Indication:Abdominal pain Start:09-Mar-2020 Instruction Type:Patient Education [...] Phone: Instructions* Name Dates Details Patient Instructions Indication:[facility] WELLNESS EXAM Start:11-Jan-2022 Instruction Type:Provider Instructions for Treatment How to Access Health Informa tion Online using Patient Portal and [employer] Apps Indication:[facility] EXAM Start:11-Jan-2022 Instruction Type:Patient Education Patient Instructions Indication:BMI 22.0-22.9, adult Start:10-Sep-2021 Instruction Type:Provider Instructions for Treatment How to Access Health Informa tion Online using Patient Portal and [employer] Apps Indication:BMI 22.0-22.9, adult Start:10-Sep-2021 Instruction Type:Patient Education Patient Instructions Indication:Elevated hemoglobin A1c Start:26-May-2021 Instruction Type:Provider Instructions for Treatment How to Access Health Informa tion Online using Patient Portal and [employer] Apps Indication:Elevated hemoglobin A1c Start:26-May-2021 Instruction Type:Patient Education Patient Instructions Indication:[facility] EXAM Start:15-Jan-2021 Instruction Type:Provider Instructions for Treatment How to Access Health Informa tion Online using Patient Portal and [employer] Apps Indication:[facility] EXAM Start:15-Jan-2021 Instruction Type:Patient Education Patient Instructions Indication:Anemia Start:02-Nov-2020 Instruction Type:Provider Instructions for Treatment How to Access Health Informa tion Online using Patient Portal and [employer] Apps Indication:Anemia Start:02-Nov-2020 Instruction Type:Patient Education Patient Instructions Indication:Nonsmoker Start:28-Jul-2020 Instruction Type:Provider Instructions for Treatment How to Access Health Informa tion Online using Patient Portal and [employer] Apps Indication:Nonsmoker Start:28-Jul-2020 Instruction Type:Patient Education Patient Instructions Indication:Elevated hemoglobin A1c Start:29-Apr-2020 Instruction Type:Provider Instructions for Treatment How to Access Health Informa tion Online using Patient Portal and [employer] Apps Indication:Elevated hemoglobin A1c Start:29-Apr-2020 Instruction Type:Patient Education Patient Instructions Indication:Abdominal pain Start:01-Apr-2020 Instruction Type:Provider Instructions for Treatment Patient Instructions Indication:Diarrhea Start:27-Mar-2020 Instruction Type:Provider Instructions for Treatment Patient Instructions Indication:Diarrhea Start:26-Mar-2020 Instruction Type:Provider Instructions for Treatment Patient Instructions Indication:Nonsmoker Start:23-Mar-2020 Instruction Type:Provider Instructions for Treatment How to Access Health Informa tion Online using Patient Portal and [employer] Apps Indication:Nonsmoker Start:23-Mar-2020 Instruction Type:Patient Education Patient Instructions Indication:Abdominal pain Start:09-Mar-2020 Instruction Type:Provider Instructions for Treatment How to Access Health Informa tion Online using Patient Portal and [employer] Republican Apps Indication:Abdominal pain Start:09-Mar-2020 Instruction Type:Patient Education [...] How to access health informa [facility]ion online [facility] Instruction Type:Patient Education How to access health informa tion online - Detail Indication[facility]:11-Sep-2015 Instruction Type:Patient Education Patient Instructions Ind[facility] Start:11-Sep-2015 Instruction Type:Provider Instructions for [...] Phone: Instructions* Name Dates Details Patient Instructions Indication:[facility] WELLNESS EXAM Start:11-Jan-2022 Instruction Type:Provider Instructions for Treatment How to Access Health Informa tion Online using Patient Portal and [employer] Apps Indication:[facility] WELLNESS EXAM Start:11-Jan-2022 Instruction Type:Patient Education Patient Instructions Indication:BMI 22.0-22.9, adult Start:10-Sep-2021 Instruction Type:Provider Instructions for Treatment How to Access Health Informa tion Online using Patient Portal and [employer] Apps Indication:BMI 22.0-22.9, adult Start:10-Sep-2021 Instruction Type:Patient Education Patient Instructions Indication:Elevated hemoglobin A1c Start:26-May-2021 Instruction Type:Provider Instructions for Treatment How to Access Health Informa tion Online using Patient Portal and [employer] Apps Indication:Elevated hemoglobin A1c Start:26-May-2021 Instruction Type:Patient Education Patient Instructions Indication:[facility] EXAM Start:15-Jan-2021 Instruction Type:Provider Instructions for Treatment How to Access Health Informa tion Online using Patient Portal and [employer] Apps Indication:[facility] EXAM Start:15-Jan-2021 Instruction Type:Patient Education Patient Instructions Indication:Anemia Start:02-Nov-2020 Instruction Type:Provider Instructions for Treatment How to Access Health Informa tion Online using Patient Portal and [employer] Apps Indication:Anemia Start:02-Nov-2020 Instruction Type:Patient Education Patient Instructions Indication:Nonsmoker Start:28-Jul-2020 Instruction Type:Provider Instructions for Treatment How to Access Health Informa tion Online using Patient Portal and [employer] Apps Indication:Nonsmoker Start:28-Jul-2020 Instruction Type:Patient Education Patient Instructions Indication:Elevated hemoglobin A1c Start:29-Apr-2020 Instruction Type:Provider Instructions for Treatment How to Access Health Informa tion Online using Patient Portal and [employer] Apps Indication:Elevated hemoglobin A1c Start:29-Apr-2020 Instruction Type:Patient Education Patient Instructions Indication:Abdominal pain Start:01-Apr-2020 Instruction Type:Provider Instructions for Treatment Patient Instructions Indication:Diarrhea Start:27-Mar-2020 Instruction Type:Provider Instructions for Treatment Patient Instructions Indication:Diarrhea Start:26-Mar-2020 Instruction Type:Provider Instructions for Treatment Patient Instructions Indication:Nonsmoker Start:23-Mar-2020 Instruction Type:Provider Instructions for Treatment How to Access Health Informa tion Online using Patient Portal and [employer] Indication:Nonsmoker Start:23-Mar-2020 Instruction Type:Patient Education Patient Instructions Indication:Abdominal pain Start:09-Mar-2020 Instruction Type:Provider Instructions for Treatment How to Access Health Informa tion Online using Patient Portal and [employer] Apps Indication:Abdominal pain Start:09-Mar-2020 Instruction Type:Patient Education [...] tion online - Detail Indication:[facility] WELLNESS EXAM Start:11-Sep-2015 Instruction Type:Patient Education Patient [...] Phone: Instructions* Name Dates Details Patient Instructions Indication:[facility] WELLNESS EXAM Start:11-Jan-2022 Instruction Type:Provider Instructions for Treatment How to Access Health Informa tion Online using Patient Portal and [employer] Apps Indication:[facility] EXAM Start:11-Jan-2022 Instruction Type:Patient Education Patient Instructions Indication:BMI 22.0-22.9, adult Start:10-Sep-2021 Instruction Type:Provider Instructions for Treatment How to Access Health Informa tion Online using Patient Portal and [employer] Indication:BMI 22.0-22.9, adult Start:10-Sep-2021 Instruction Type:Patient Education Patient Instructions Indication:Elevated hemoglobin A1c Start:26-May-2021 Instruction Type:Provider Instructions for Treatment How to Access Health Informa tion Online using Patient Portal and [employer] Indication:Elevated hemoglobin A1c Start:26-May-2021 Instruction Type:Patient Education Patient Instructions Indication:[facility] EXAM Start:15-Jan-2021 Instruction Type:Provider Instructions for Treatment How to Access Health Informa tion Online using Patient Portal and [employer] Apps Indication:[facility] EXAM Start:15-Jan-2021 Instruction Type:Patient Education Patient Instructions Indication:Anemia Start:02-Nov-2020 Instruction Type:Provider Instructions for Treatment How to Access Health Informa tion Online using Patient Portal and [employer] Indication:Anemia Start:02-Nov-2020 Instruction Type:Patient Education Patient Instructions Indication:Nonsmoker Start:28-Jul-2020 Instruction Type:Provider Instructions for Treatment How to Access Health Informa tion Online using Patient Portal and [employer] Apps Indication:Nonsmoker Start:28-Jul-2020 Instruction Type:Patient Education Patient Instructions Indication:Elevated hemoglobin A1c Start:29-Apr-2020 Instruction Type:Provider Instructions for Treatment How to Access Health Informa tion Online using Patient Portal and [employer] Apps Indication:Elevated hemoglobin A1c Start:29-Apr-2020 Instruction Type:Patient Education Patient Instructions Indication:Abdominal pain Start:01-Apr-2020 Instruction Type:Provider Instructions for Treatment Patient Instructions Indication:Diarrhea Start:27-Mar-2020 Instruction Type:Provider Instructions for Treatment Patient Instructions Indication:Diarrhea Start:26-Mar-2020 Instruction Type:Provider Instructions for Treatment Patient Instructions Indication:Nonsmoker Start:23-Mar-2020 Instruction Type:Provider Instructions for Treatment How to Access Health Informa tion Online using Patient Portal and [employer]rd [employer] Apps Indication:Nonsmoker Start:23-Mar-2020 Instruction Type:Patient Education Patient Instructions Indication:Abdominal pain Start:09-Mar-2020 Instruction Type:Provider Instructions for Treatment How to Access Health Informa tion Online using Patient Portal and [employer]rd [employer] Apps Indication:Abdominal pain Start:09-Mar-2020 Instruction Type:Patient Education [...] Informa tion Online using Patient Portal and [employer] Republican Apps Indication:Elevated hemoglobin A1c Start:03-Jun-2022 Instruction Type:Patient Education Patient Instructions Indication:[facility] Start:11-Jan-2022 Instruction Type:Provider Instructions for Treatment How to Access Health Informa tion Online using Patient Portal and [employer] Apps Indication:[facility] Start:11-Jan-2022 Instruction Type:Patient Education Patient Instructions Indication:BMI 22.0-22.9, adult Start:10-Sep-2021 Instruction Type:Provider Instructions for Treatment How to Access Health Informa tion Online using Patient Portal and [employer] Apps Indication:BMI 22.0-22.9, adult Start:10-Sep-2021 Instruction Type:Patient Education Patient Instructions Indication:Elevated hemoglobin A1c Start:26-May-2021 Instruction Type:Provider Instructions for Treatment How to Access Health Informa tion Online using Patient Portal and [employer] Apps Indication:Elevated hemoglobin A1c Start:26-May-2021 Instruction Type:Patient Education Patient Instructions Indication:[facility] Start:15-Jan-2021 Instruction Type:Provider Instructions for Treatment How to Access Health Informa tion Online using Patient Portal and [employer] Apps Indication:[facility] Start:15-Jan-2021 Instruction Type:Patient Education Patient Instructions Indication:Anemia Start:02-Nov-2020 Instruction Type:Provider Instructions for Treatment How to Access Health Informa tion Online using Patient Portal and [employer] Apps Indication:Anemia Start:02-Nov-2020 Instruction Type:Patient Education Patient Instructions Indication:Nonsmoker Start:28-Jul-2020 Instruction Type:Provider Instructions for Treatment How to Access Health Informa tion Online using Patient Portal and [employer] Apps Indication:Nonsmoker Start:28-Jul-2020 Instruction Type:Patient Education Patient Instructions Indication:Elevated hemoglobin A1c Start:29-Apr-2020 Instruction Type:Provider Instructions for Treatment How to Access Health Informa tion Online using Patient Portal and [employer] Apps Indication:Elevated hemoglobin A1c Start:29-Apr-2020 Instruction Type:Patient Education Patient Instructions Indication:Abdominal pain Start:01-Apr-2020 Instruction Type:Provider Instructions for Treatment Patient Instructions Indication:Diarrhea Start:27-Mar-2020 Instruction Type:Provider Instructions for Treatment Patient Instructions Indication:Diarrhea Start:26-Mar-2020 Instruction Type:Provider Instructions for Treatment Patient Instructions Indication:Nonsmoker Start:23-Mar-2020 Instruction Type:Provider Instructions for Treatment How to Access Health Informa tion Online using Patient Portal and [employer] Apps Indication:Nonsmoker Start:23-Mar-2020 Instruction Type:Patient Education Patient Instructions Indication:Abdominal pain Start:09-Mar-2020 Instruction Type:Provider Instructions for Treatment How to Access Health Informa tion Online using Patient Portal and [employer] Apps Indication:Abdominal pain Start:09-Mar-2020 Instruction Type:Patient Education [...] tion Online using Patient Portal and [employer] Apps Indication:Elevated hemoglobin A1c Start:03-Jun-2022 Instruction Type:Patient Education Patient Instructions Indication:[facility] Start:11-Jan-2022 Instruction Type:Provider Instructions for Treatment How to Access Health Informa tion Online using Patient Portal and [employer] Apps Indication:[facility] Start:11-Jan-2022 Instruction Type:Patient Education Patient Instructions Indication:BMI 22.0-22.9, adult Start:10-Sep-2021 Instruction Type:Provider Instructions for Treatment How to Access Health Informa tion Online using Patient Portal and [employer] Apps Indication:BMI 22.0-22.9, adult Start:10-Sep-2021 Instruction Type:Patient Education Patient Instructions Indication:Elevated hemoglobin A1c Start:26-May-2021 Instruction Type:Provider Instructions for Treatment How to Access Health Informa tion Online using Patient Portal and [employer] Apps Indication:Elevated hemoglobin A1c Start:26-May-2021 Instruction Type:Patient Education Patient Instructions Indication:[facility] Start:15-Jan-2021 Instruction Type:Provider Instructions for Treatment How to Access Health Informa tion Online using Patient Portal and [employer] Apps Indication:[facility] Start:15-Jan-2021 Instruction Type:Patient Education Patient Instructions Indication:Anemia Start:02-Nov-2020 Instruction Type:Provider Instructions for Treatment How to Access Health Informa tion Online using Patient Portal and [employer] Apps Indication:Anemia Start:02-Nov-2020 Instruction Type:Patient Education Patient Instructions Indication:Nonsmoker Start:28-Jul-2020 Instruction Type:Provider Instructions for Treatment How to Access Health Informa tion Online using Patient Portal and [employer] Apps Indication:Nonsmoker Start:28-Jul-2020 Instruction Type:Patient Education Patient Instructions Indication:Elevated hemoglobin A1c Start:29-Apr-2020 Instruction Type:Provider Instructions for Treatment How to Access Health Informa tion Online using Patient Portal and [employer] Apps Indication:Elevated hemoglobin A1c Start:29-Apr-2020 Instruction Type:Patient Education Patient Instructions Indication:Abdominal pain Start:01-Apr-2020 Instruction Type:Provider Instructions for Treatment Patient Instructions Indication:Diarrhea Start:27-Mar-2020 Instruction Type:Provider Instructions for Treatment Patient Instructions Indication:Diarrhea Start:26-Mar-2020 Instruction Type:Provider Instructions for Treatment Patient Instructions Indication:Nonsmoker Start:23-Mar-2020 Instruction Type:Provider Instructions for Treatment How to Access Health Informa tion Online using Patient Portal and [employer] Apps Indication:Nonsmoker Start:23-Mar-2020 Instruction Type:Patient Education Patient Instructions Indication:Abdominal pain Start:09-Mar-2020 Instruction Type:Provider Instructions for Treatment How to Access Health Informa tion Online using Patient Portal and [employer] Apps Indication:Abdominal pain Start:09-Mar-2020 Instruction Type:Patient Education [...] EXAM Start:14-Sep-2016 Instruction Type:Patient Education Patient Instructions [facility] Instruction Type:Provider [...] access health informa tion online - Detail [facility] Start:11-Sep-[facility] Instruction Type:Patient [...] tion Online using Patient Portal and [employer] Apps Indication:Elevated hemoglobin A1c Start:03-Jun-2022 Instruction Type:Patient Education Patient Instructions Indication:[facility] Start:11-Jan-2022 Instruction Type:Provider Instructions for Treatment How to Access Health Informa tion Online using Patient Portal and [employer] Apps Indication:[facility] Start:11-Jan-2022 Instruction Type:Patient Education Patient Instructions Indication:BMI 22.0-22.9, adult Start:10-Sep-2021 Instruction Type:Provider Instructions for Treatment How to Access Health Informa tion Online using Patient Portal and [employer] Apps Indication:BMI 22.0-22.9, adult Start:10-Sep-2021 Instruction Type:Patient Education Patient Instructions Indication:Elevated hemoglobin A1c Start:26-May-2021 Instruction Type:Provider Instructions for Treatment How to Access Health Informa tion Online using Patient Portal and [employer] Apps Indication:Elevated hemoglobin A1c Start:26-May-2021 Instruction Type:Patient Education Patient Instructions Indication:[facility] Start:15-Jan-2021 Instruction Type:Provider Instructions for Treatment How to Access Health Informa tion Online using Patient Portal and [employer] Apps Indication:[facility] Start:15-Jan-2021 Instruction Type:Patient Education Patient Instructions Indication:Anemia Start:02-Nov-2020 Instruction Type:Provider Instructions for Treatment How to Access Health Informa tion Online using Patient Portal and [employer] Apps Indication:Anemia Start:02-Nov-2020 Instruction Type:Patient Education Patient Instructions Indication:Nonsmoker Start:28-Jul-2020 Instruction Type:Provider Instructions for Treatment How to Access Health Informa tion Online using Patient Portal and [employer] Apps Indication:Nonsmoker Start:28-Jul-2020 Instruction Type:Patient Education Patient Instructions Indication:Elevated hemoglobin A1c Start:29-Apr-2020 Instruction Type:Provider Instructions for Treatment How to Access Health Informa tion Online using Patient Portal and [employer] Apps Indication:Elevated hemoglobin A1c Start:29-Apr-2020 Instruction Type:Patient Education Patient Instructions Indication:Abdominal pain Start:01-Apr-2020 Instruction Type:Provider Instructions for Treatment Patient Instructions Indication:Diarrhea Start:27-Mar-2020 Instruction Type:Provider Instructions for Treatment Patient Instructions Indication:Diarrhea Start:26-Mar-2020 Instruction Type:Provider Instructions for Treatment Patient Instructions Indication:Nonsmoker Start:23-Mar-2020 Instruction Type:Provider Instructions for Treatment How to Access Health Informa tion Online using Patient Portal and [employer] Indication:Nonsmoker Start:23-Mar-2020 Instruction Type:Patient Education Patient Instructions Indication:Abdominal pain Start:09-Mar-2020 Instruction Type:Provider Instructions for Treatment How to Access Health Informa tion Online using Patient Portal and [employer] Apps Indication:Abdominal pain Start:09-Mar-2020 Instruction Type:Patient Education [...] tion Online using Patient Portal and [employer] Apps Indication:BMI 22.0-22.9, adult Start:12-Sep-2022 Instruction Type:Patient Education Patient Instructions Indication:Elevated hemoglobin A1c Start:03-Jun-2022 Instruction Type:Provider Instructions for Treatment How to Access Health Informa tion Online using Patient Portal and [employer] Apps Indication:Elevated hemoglobin A1c Start:03-Jun-2022 Instruction Type:Patient Education Patient Instructions Indication:[facility] Start:11-Jan-2022 Instruction Type:Provider Instructions for Treatment How to Access Health Informa tion Online using Patient Portal and [employer] Apps Indication:[facility] Start:11-Jan-2022 Instruction Type:Patient Education Patient Instructions Indication:BMI 22.0-22.9, adult Start:10-Sep-2021 Instruction Type:Provider Instructions for Treatment How to Access Health Informa tion Online using Patient Portal and [employer] Apps Indication:BMI 22.0-22.9, adult Start:10-Sep-2021 Instruction Type:Patient Education Patient Instructions Indication:Elevated hemoglobin A1c Start:26-May-2021 Instruction Type:Provider Instructions for Treatment How to Access Health Informa tion Online using Patient Portal and [employer] Apps Indication:Elevated hemoglobin A1c Start:26-May-2021 Instruction Type:Patient Education Patient Instructions Indication:[facility] Start:15-Jan-2021 Instruction Type:Provider Instructions for Treatment How to Access Health Informa tion Online using Patient Portal and [employer] Apps Indication:[facility] Start:15-Jan-2021 Instruction Type:Patient Education Patient Instructions Indication:Anemia Start:02-Nov-2020 Instruction Type:Provider Instructions for Treatment How to Access Health Informa tion Online using Patient Portal and [employer] Apps Indication:Anemia Start:02-Nov-2020 Instruction Type:Patient Education Patient Instructions Indication:Nonsmoker Start:28-Jul-2020 Instruction Type:Provider Instructions for Treatment How to Access Health Informa tion Online using Patient Portal and [employer] Apps Indication:Nonsmoker Start:28-Jul-2020 Instruction Type:Patient Education Patient Instructions Indication:Elevated hemoglobin A1c Start:29-Apr-2020 Instruction Type:Provider Instructions for Treatment How to Access Health Informa tion Online using Patient Portal and [employer] Apps Indication:Elevated hemoglobin A1c Start:29-Apr-2020 Instruction Type:Patient Education Patient Instructions Indication:Abdominal pain Start:01-Apr-2020 Instruction Type:Provider Instructions for Treatment Patient Instructions Indication:Diarrhea Start:27-Mar-2020 Instruction Type:Provider Instructions for Treatment Patient Instructions Indication:Diarrhea Start:26-Mar-2020 Instruction Type:Provider Instructions for Treatment Patient Instructions Indication:Nonsmoker Start:23-Mar-2020 Instruction Type:Provider Instructions for Treatment How to Access Health Informa tion Online using Patient Portal and [employer] Apps Indication:Nonsmoker Start:23-Mar-2020 Instruction Type:Patient Education Patient Instructions Indication:Abdominal pain Start:09-Mar-2020 Instruction Type:Provider Instructions for Treatment How to Access Health Informa tion Online using Patient Portal and [employer] Apps Indication:Abdominal pain Start:09-Mar-2020 Instruction Type:Patient Education [...] tion Online using Patient Portal and [employer] Apps Indication:BMI 22.0-22.9, adult Start:12-Sep-2022 Instruction Type:Patient Education Patient Instructions Indication:Elevated hemoglobin A1c Start:03-Jun-2022 Instruction Type:Provider Instructions for Treatment How to Access Health Informa tion Online using Patient Portal and [employer] Apps Indication:Elevated hemoglobin A1c Start:03-Jun-2022 Instruction Type:Patient Education Patient Instructions Indication:[facility] Start:11-Jan-2022 Instruction Type:Provider Instructions for Treatment How to Access Health Informa tion Online using Patient Portal and [employer] Apps Indication:[facility] Start:11-Jan-2022 Instruction Type:Patient Education Patient Instructions Indication:BMI 22.0-22.9, adult Start:10-Sep-2021 Instruction Type:Provider Instructions for Treatment How to Access Health Informa tion Online using Patient Portal and [employer] Apps Indication:BMI 22.0-22.9, adult Start:10-Sep-2021 Instruction Type:Patient Education Patient Instructions Indication:Elevated hemoglobin A1c Start:26-May-2021 Instruction Type:Provider Instructions for Treatment How to Access Health Informa tion Online using Patient Portal and [employer] Apps Indication:Elevated hemoglobin A1c Start:26-May-2021 Instruction Type:Patient Education Patient Instructions Indication:[facility] Start:15-Jan-2021 Instruction Type:Provider Instructions for Treatment How to Access Health Informa tion Online using Patient Portal and [employer] Apps Indication:[facility] Start:15-Jan-2021 Instruction Type:Patient Education Patient Instructions Indication:Anemia Start:02-Nov-2020 Instruction Type:Provider Instructions for Treatment How to Access Health Informa tion Online using Patient Portal and [employer] Apps Indication:Anemia Start:02-Nov-2020 Instruction Type:Patient Education Patient Instructions Indication:Nonsmoker Start:28-Jul-2020 Instruction Type:Provider Instructions for Treatment How to Access Health Informa tion Online using Patient Portal and [employer] Apps Indication:Nonsmoker Start:28-Jul-2020 Instruction Type:Patient Education Patient Instructions Indication:Elevated hemoglobin A1c Start:29-Apr-2020 Instruction Type:Provider Instructions for Treatment How to Access Health Informa tion Online using Patient Portal and [employer] Apps Indication:Elevated hemoglobin A1c Start:29-Apr-2020 Instruction Type:Patient Education Patient Instructions Indication:Abdominal pain Start:01-Apr-2020 Instruction Type:Provider Instructions for Treatment Patient Instructions Indication:Diarrhea Start:27-Mar-2020 Instruction Type:Provider Instructions for Treatment Patient Instructions Indication:Diarrhea Start:26-Mar-2020 Instruction Type:Provider Instructions for Treatment Patient Instructions Indication:Nonsmoker Start:23-Mar-2020 Instruction Type:Provider Instructions for Treatment How to Access Health Informa tion Online using Patient Portal and [employer] Apps Indication:Nonsmoker Start:23-Mar-2020 Instruction Type:Patient Education Patient Instructions Indication:Abdominal pain Start:09-Mar-2020 Instruction Type:Provider Instructions for Treatment How to Access Health Informa tion Online using Patient Portal and [employer] Apps Indication:Abdominal pain Start:09-Mar-2020 Instruction Type:Patient Education [...] tion Online using Patient Portal and [employer] Apps Indication:BMI 22.0-22.9, adult Start:12-Sep-2022 Instruction Type:Patient Education Patient Instructions Indication:Elevated hemoglobin A1c Start:03-Jun-2022 Instruction Type:Provider Instructions for Treatment How to Access Health Informa tion Online using Patient Portal and [employer] Apps Indication:Elevated hemoglobin A1c Start:03-Jun-2022 Instruction Type:Patient Education Patient Instructions Indication:[facility] Start:11-Jan-2022 Instruction Type:Provider Instructions for Treatment How to Access Health Informa tion Online using Patient Portal and [employer] Apps Indication:[facility] Start:11-Jan-2022 Instruction Type:Patient Education Patient Instructions Indication:BMI 22.0-22.9, adult Start:10-Sep-2021 Instruction Type:Provider Instructions for Treatment How to Access Health Informa tion Online using Patient Portal and [employer] Indication:BMI 22.0-22.9, adult Start:10-Sep-2021 Instruction Type:Patient Education Patient Instructions Indication:Elevated hemoglobin A1c Start:26-May-2021 Instruction Type:Provider Instructions for Treatment How to Access Health Informa tion Online using Patient Portal and [employer] Apps Indication:Elevated hemoglobin A1c Start:26-May-2021 Instruction Type:Patient Education Patient Instructions Indication:[facility] Start:15-Jan-2021 Instruction Type:Provider Instructions for Treatment How to Access Health Informa tion Online using Patient Portal and [employer] Apps Indication:[facility] Start:15-Jan-2021 Instruction Type:Patient Education Patient Instructions Indication:Anemia Start:02-Nov-2020 Instruction Type:Provider Instructions for Treatment How to Access Health Informa tion Online using Patient Portal and [employer] Apps Indication:Anemia Start:02-Nov-2020 Instruction Type:Patient Education Patient Instructions Indication:Nonsmoker Start:28-Jul-2020 Instruction Type:Provider Instructions for Treatment How to Access Health Informa tion Online using Patient Portal and [employer] Apps Indication:Nonsmoker Start:28-Jul-2020 Instruction Type:Patient Education Patient Instructions Indication:Elevated hemoglobin A1c Start:29-Apr-2020 Instruction Type:Provider Instructions for Treatment How to Access Health Informa tion Online using Patient Portal and [employer] Indication:Elevated hemoglobin A1c Start:29-Apr-2020 Instruction Type:Patient Education Patient Instructions Indication:Abdominal pain Start:01-Apr-2020 Instruction Type:Provider Instructions for Treatment Patient Instructions Indication:Diarrhea Start:27-Mar-2020 Instruction Type:Provider Instructions for Treatment Patient Instructions Indication:Diarrhea Start:26-Mar-2020 Instruction Type:Provider Instructions for Treatment Patient Instructions Indication:Nonsmoker Start:23-Mar-2020 Instruction Type:Provider Instructions for Treatment How to Access Health Informa tion Online using Patient Portal and [employer] Indication:Nonsmoker Start:23-Mar-2020 Instruction Type:Patient Education Patient Instructions Indication:Abdominal pain Start:09-Mar-2020 Instruction Type:Provider Instructions for Treatment How to Access Health Informa tion Online using Patient Portal and [employer] Indication:Abdominal pain Start:09-Mar-2020 Instruction Type:Patient Education [...] tion Online using Patient Portal and [employer] Indication:BMI 22.0-22.9, adult Start:12-Sep-2022 Instruction Type:Patient Education Patient Instructions Indication:Elevated hemoglobin A1c Start:03-Jun-2022 Instruction Type:Provider Instructions for Treatment How to Access Health Informa tion Online using Patient Portal and [employer] Apps Indication:Elevated hemoglobin A1c Start:03-Jun-2022 Instruction Type:Patient Education Patient Instructions Indication:[facility] Start:11-Jan-2022 Instruction Type:Provider Instructions for Treatment How to Access Health Informa tion Online using Patient Portal and [employer] Apps Indication:[facility] Start:11-Jan-2022 Instruction Type:Patient Education Patient Instructions Indication:BMI 22.0-22.9, adult Start:10-Sep-2021 Instruction Type:Provider Instructions for Treatment How to Access Health Informa tion Online using Patient Portal and [employer] Indication:BMI 22.0-22.9, adult Start:10-Sep-2021 Instruction Type:Patient Education Patient Instructions Indication:Elevated hemoglobin A1c Start:26-May-2021 Instruction Type:Provider Instructions for Treatment How to Access Health Informa tion Online using Patient Portal and [employer] Indication:Elevated hemoglobin A1c Start:26-May-2021 Instruction Type:Patient Education Patient Instructions Indication:[facility] Start:15-Jan-2021 Instruction Type:Provider Instructions for Treatment How to Access Health Informa tion Online using Patient Portal and [employer] Apps Indication:[facility] Start:15-Jan-2021 Instruction Type:Patient Education Patient Instructions Indication:Anemia Start:02-Nov-2020 Instruction Type:Provider Instructions for Treatment How to Access Health Informa tion Online using Patient Portal and [employer] Indication:Anemia Start:02-Nov-2020 Instruction Type:Patient Education Patient Instructions Indication:Nonsmoker Start:28-Jul-2020 Instruction Type:Provider Instructions for Treatment How to Access Health Informa tion Online using Patient Portal and [employer] Indication:Nonsmoker Start:28-Jul-2020 Instruction Type:Patient Education Patient Instructions Indication:Elevated hemoglobin A1c Start:29-Apr-2020 Instruction Type:Provider Instructions for Treatment How to Access Health Informa tion Online using Patient Portal and [employer] Indication:Elevated hemoglobin A1c Start:29-Apr-2020 Instruction Type:Patient Education Patient Instructions Indication:Abdominal pain Start:01-Apr-2020 Instruction Type:Provider Instructions for Treatment Patient Instructions Indication:Diarrhea Start:27-Mar-2020 Instruction Type:Provider Instructions for Treatment Patient Instructions Indication:Diarrhea Start:26-Mar-2020 Instruction Type:Provider Instructions for Treatment Patient Instructions Indication:Nonsmoker Start:23-Mar-2020 Instruction Type:Provider Instructions for Treatment How to Access Health Informa tion Online using Patient Portal and [employer]rd [employer] Apps Indication:Nonsmoker Start:23-Mar-2020 Instruction Type:Patient Education Patient Instructions Indication:Abdominal pain Start:09-Mar-2020 Instruction Type:Provider Instructions for Treatment How to Access Health Informa tion Online using Patient Portal and [employer] Apps Indication:Abdominal pain Start:09-Mar-2020 Instruction Type:Patient Education [...] Informa tion Online using Patient Portal and [employer] Republican Apps Indication:BMI 22.0-22.9, adult Start:12-Sep-2022 Instruction Type:Patient Education Patient Instructions Indication:Elevated hemoglobin A1c Start:03-Jun-2022 Instruction Type:Provider Instructions for Treatment How to Access Health Informa tion Online using Patient Portal and [employer] Republican Apps Indication:Elevated hemoglobin A1c Start:03-Jun-2022 Instruction Type:Patient Education Patient Instructions Indication:[facility] WELLNESS EXAM Start:11-Jan-2022 Instruction Type:Provider Instructions for Treatment How to Access Health Informa tion Online using Patient Portal and [employer] Apps Indication:[facility]LLNESS EXAM Start:11-Jan-2022 Instruction Type:Patient Education Patient Instructions Indication:BMI 22.0-22.9, adult Start:10-Sep-2021 Instruction Type:Provider Instructions for Treatment How to Access Health Informa tion Online using Patient Portal and [employer] Apps Indication:BMI 22.0-22.9, adult Start:10-Sep-2021 Instruction Type:Patient Education Patient Instructions Indication:Elevated hemoglobin A1c Start:26-May-2021 Instruction Type:Provider Instructions for Treatment How to Access Health Informa tion Online using Patient Portal and [employer] Apps Indication:Elevated hemoglobin A1c Start:26-May-2021 Instruction Type:Patient Education Patient Instructions Indication:[facility] WELLNESS EXAM Start:15-Jan-2021 Instruction Type:Provider Instructions for Treatment How to Access Health Informa tion Online using Patient Portal and [employer] Apps Indication:[facility]LLNESS EXAM Start:15-Jan-2021 Instruction Type:Patient Education Patient Instructions Indication:Anemia Start:02-Nov-2020 Instruction Type:Provider Instructions for Treatment How to Access Health Informa tion Online using Patient Portal and [employer] Apps Indication:Anemia Start:02-Nov-2020 Instruction Type:Patient Education Patient Instructions Indication:Nonsmoker Start:28-Jul-2020 Instruction Type:Provider Instructions for Treatment How to Access Health Informa tion Online using Patient Portal and [employer] Apps Indication:Nonsmoker Start:28-Jul-2020 Instruction Type:Patient Education Patient Instructions Indication:Elevated hemoglobin A1c Start:29-Apr-2020 Instruction Type:Provider Instructions for Treatment How to Access Health Informa tion Online using Patient Portal and [employer] Apps Indication:Elevated hemoglobin A1c Start:29-Apr-2020 Instruction Type:Patient Education Patient Instructions Indication:Abdominal pain Start:01-Apr-2020 Instruction Type:Provider Instructions for Treatment Patient Instructions Indication:Diarrhea Start:27-Mar-2020 Instruction Type:Provider Instructions for Treatment Patient Instructions Indication:Diarrhea Start:26-Mar-2020 Instruction Type:Provider Instructions for Treatment Patient Instructions Indication:Nonsmoker Start:23-Mar-2020 Instruction Type:Provider Instructions for Treatment How to Access Health Informa tion Online using Patient Portal and [employer] Apps Indication:Nonsmoker Start:23-Mar-2020 Instruction Type:Patient Education Patient Instructions Indication:Abdominal pain Start:09-Mar-2020 Instruction Type:Provider Instructions for Treatment How to Access Health Informa tion Online using Patient Portal and [employer] Apps Indication:Abdominal pain Start:09-Mar-2020 Instruction Type:Patient Education [...] for referral (narrative)No [facility]: Family History No Family History [...] ructions Indication:Low Back [facility] Patient Instructions [...] access health informa tion online - [facility] Start:14-Sep-2016 Instruction Type:Patient Education Patient Instructions [facility] Start:14-Sep-2016 Instruction Type:Provider Instructions for Treatment How to access health informa tion online Indication:Osteoporosis Start:15-Apr-2016 Instruction Type:Patient Education How to access health informa tion online - Detail Indication:Osteoporosis Start:15-Apr-2016 Instruction Type:Patient Education Patient Instructions Indication:Osteoporosis Start:15-Apr-2016 Instruction Type:Provider Instructions for Treatment How to access health informa tion online [facility] Start:11-Sep-2015 Instruction Type:Patient Education How to access health informa tion online - Detail Indication:[facility] WELLNESS EXAM Start:11-Sep-2015 Instruction Type:Patient Education Patient Instructions [facility] Start:11-Sep-2015 Instruction Type:Provider Instructions for [...] tion Online using Patient Portal and [employer] Republican Apps Indication:Abdominal pain Start:09-Mar-2020 Instruction Type:Patient Education [...] tion Online using Patient Portal and [employer] Apps Indication:Abdominal pain Start:09-Mar-2020 Instruction Type:Patient Education [...] Informa tion Online using Patient Portal and [employer] Apps Indication:Abdominal pain Start:09-Mar-2020 Instruction Type:Patient Education [...] tion Online using Patient Portal and [employer] Apps Indication:Abdominal pain Start:09-Mar-2020 Instruction Type:Patient Education [...] EXAM Start:11-Sep-2015 Instruction Type:Patient Education Patient Instructions [facility] Start:11-Sep-2015 Instruction Type:Provider Instructions for [...] tion Online using Patient Portal and [employer] Apps Indication:Nonsmoker Start:23-Mar-2020 Instruction Type:Patient Education Patient Instructions Indication:Abdominal pain Start:09-Mar-2020 Instruction Type:Provider Instructions for Treatment How to Access Health Informa tion Online using Patient Portal and [employer] Apps Indication:Abdominal pain Start:09-Mar-2020 Instruction Type:Patient Education [...] EXAM Start:14-Sep-2016 Instruction Type:Patient Education Patient Instructions [facility] Start:14-Sep-2016 Instruction Type:Provider [...] access health informa tion online - Detail Ind[facility] Start:11-Sep-2015 Instruction Type:Patient [...] Informa tion Online using Patient Portal and [employer] Republican Apps Indication:Elevated hemoglobin A1c Start:29-Apr-2020 Instruction Type:Patient Education Patient Instructions Indication:Abdominal pain Start:01-Apr-2020 Instruction Type:Provider Instructions for Treatment Patient Instructions Indication:Diarrhea Start:27-Mar-2020 Instruction Type:Provider Instructions for Treatment Patient Instructions Indication:Diarrhea Start:26-Mar-2020 Instruction Type:Provider Instructions for Treatment Patient Instructions Indication:Nonsmoker Start:23-Mar-2020 Instruction Type:Provider Instructions for Treatment How to Access Health Informa tion Online using Patient Portal and [employer] Republican Apps Indication:Nonsmoker Start:23-Mar-2020 Instruction Type:Patient Education Patient Instructions Indication:Abdominal pain Start:09-Mar-2020 Instruction Type:Provider Instructions for Treatment How to Access Health Informa tion Online using Patient Portal and [employer] Apps Indication:Abdominal pain Start:09-Mar-2020 Instruction Type:Patient Education [...] Name Dates Details Lymphocytosis : How to [employer] information online Indication:Lymphocytosis Lymphocytosis : How to [employer] information online - Detail Indication:Lymphocytosis Lymphocytosis : [...] EXAM Start:14-Sep-2016 Instruction Type:Patient Education Patient Instructions [facility] Start:14-Sep-2016 Instruction Type:Provider Instructions for Treatment How to access health informa tion online Indication:Osteoporosis Start:15-Apr-2016 Instruction Type:Patient Education How to access health informa tion online - Detail Indication:Osteoporosis Start:15-Apr-2016 Instruction Type:Patient Education Patient Instructions Indication:Osteoporosis Start:15-Apr-2016 Instruction Type:Provider Instructions for Treatment How to access health informa tion online Indication:[facility] WELLNESS EXAM Start:11-Sep-2015 Instruction Type:Patient Education How to access health informa tion online - Detail Indication[facility] Start:11-Sep-2015 Instruction Type:Patient Education Patient Instructions Ind[facility] Start:11-Sep-2015 Instruction Type:Provider Instructions for [...] Records Found Name Dates Details Immunization Registry [place] - Effective on 05/26/2017. Expiration date unspecified Effective:26-May-2017 Name Dates Details Immunization Registry [place] - Effective on 05/26/2017. Expiration date unspecified Effective:26-May-2017 Name Dates Details Living Will - Effective on . Expiration date unspecified. Scanned Document is available upon request. Effective:03-May-2018 Immunization Registry [place] - Effective on 05/26/2017. Expiration date unspecified Effective:26-May-2017 Name Dates Details Living Will - Effective on . Expiration date unspecified. Scanned Document is available upon request. Effective:03-May-2018 Immunization Registry [place] - Effective on 05/26/2017. Expiration date unspecified Effective:26-May-2017 Name Dates Details Living Will - Effective on . Expiration date unspecified. Scanned Document is available upon request. Effective:03-May-2018 Immunization Registry [place] - Effective on 05/26/2017. Expiration date unspecified Effective:26-May-2017 Name Dates Details Living Will - Effective on . Expiration date unspecified. Scanned Document is available upon request. Effective:03-May-2018 Immunization Registry [place] - Effective on 05/26/2017. Expiration date unspecified Effective:26-May-2017 Name Dates Details Living Will - Effective on . Expiration date unspecified. Scanned Document is available upon request. Effective:03-May-2018 Immunization Registry [place] - Effective on 05/26/2017. Expiration date unspecified Effective:26-May-2017 Name Dates Details Living Will - Effective on . Expiration date unspecified. Scanned Document is available upon request. Effective:03-May-2018 Immunization Registry [place] - Effective on 05/26/2017. Expiration date unspecified Effective:26-May-2017 Name Dates Details Living Will - Effective on . Expiration date unspecified. Scanned Document is available upon request. Effective:03-May-2018 Immunization Registry [place] - Effective on 05/26/2017. Expiration date unspecified Effective:26-May-2017 Name Dates Details Living Will - Effective on . Expiration date unspecified. Scanned Document is available upon request. Effective:03-May-2018 Immunization Registry [place] - Effective on 05/26/2017. Expiration date unspecified Effective:26-May-2017 Name Dates Details Living Will - Effective on . Expiration date unspecified. Scanned Document is available upon request. Effective:03-May-2018 Immunization Registry [place] - Effective on 05/26/2017. Expiration date unspecified Effective:26-May-2017 Name Dates Details Living Will - Effective on . Expiration date unspecified. Scanned Document is available upon request. Effective:03-May-2018 Immunization Registry [place] - Effective on 05/26/2017. Expiration date unspecified Effective:26-May-2017 Name Dates Details Living Will - Effective on . Expiration date unspecified. Scanned Document is available upon request. Effective:03-May-2018 Immunization Registry [place] - Effective on 05/26/2017. Expiration date unspecified Effective:26-May-2017 Name Dates Details Living Will - Effective on . Expiration date unspecified. Scanned Document is available upon request. Effective:03-May-2018 Immunization Registry [place] - Effective on 05/26/2017. Expiration date unspecified Effective:26-May-2017 Name Dates Details Living Will - Effective on . Expiration date unspecified. Scanned Document is available upon request. Effective:03-May-2018 Immunization Registry [place] - Effective on 05/26/2017. Expiration date unspecified Effective:26-May-2017 Name Dates Details Living Will - Effective on . Expiration date unspecified. Scanned Document is available upon request. Effective:03-May-2018 Immunization Registry [place] - Effective on 05/26/2017. Expiration date unspecified Effective:26-May-2017 Name Dates Details Living Will - Effective on . Expiration date unspecified. Scanned Document is available upon request. Effective:03-May-2018 Immunization Registry [place] - Effective on 05/26/2017. Expiration date unspecified Effective:26-May-2017 Name Dates Details Living Will - Effective on . Expiration date unspecified. Scanned Document is available upon request. Effective:03-May-2018 Immunization Registry [place] - Effective on 05/26/2017. Expiration date unspecified Effective:26-May-2017 Name Dates Details Living Will - Effective on . Expiration date unspecified. Scanned Document is available upon request. Effective:03-May-2018 Immunization Registry [place] - Effective on 05/26/2017. Expiration date unspecified Effective:26-May-2017 Name Dates Details Living Will - Effective on . Expiration date unspecified. Scanned Document is available upon request. Effective:03-May-2018 Immunization Registry [place] - Effective on 05/26/2017. Expiration date unspecified Effective:26-May-2017 Name Dates Details Living Will - Effective on . Expiration date unspecified. Scanned Document is available upon request. Effective:03-May-2018 Immunization Registry [place] - Effective on 05/26/2017. Expiration date unspecified Effective:26-May-2017 Name Dates Details Living Will - Effective on . Expiration date unspecified. Scanned Document is available upon request. Effective:03-May-2018 Immunization Registry [place] - Effective on 05/26/2017. Expiration date unspecified Effective:26-May-2017 Name Dates Details Living Will - Effective on . Expiration date unspecified. Scanned Document is available upon request. Effective:03-May-2018 Immunization Registry [place] - Effective on 05/26/2017. Expiration date unspecified Effective:26-May-2017 Name Dates Details Living Will - Effective on . Expiration date unspecified. Scanned Document is available upon request. Effective:03-May-2018 Immunization Registry [place] - Effective on 05/26/2017. Expiration date unspecified Effective:26-May-2017 Name Dates Details Living Will - Effective on . Expiration date unspecified. Scanned Document is available upon request. Effective:03-May-2018 Immunization Registry [place] - Effective on 05/26/2017. Expiration date unspecified Effective:26-May-2017 Name Dates Details Living Will - Effective on . Expiration date unspecified. Scanned Document is available upon request. Effective:03-May-2018 Immunization Registry [place] - Effective on 05/26/2017. Expiration date unspecified Effective:26-May-2017 Advance Directive Response Recorded Date/ Time Living Will Yes March 12 3:53pm Power of Roll Icer Machine Yes March 12 021 3:53pm Name Dates Details Living Will - Effective on . Expiration date unspecified. Scanned Document is available upon request. Effective:03-May-2018 Immunization Registry [place] - Effective on 05/26/2017. Expiration date unspecified Effective:26-May-2017 Name Dates Details Living Will - Effective on . Expiration date unspecified. Scanned Document is available upon request. Effective:03-May-2018 Immunization Registry [place] - Effective on 05/26/2017. Expiration date unspecified Effective:26-May-2017 Name Dates Details Living Will - Effective on . Expiration date unspecified. Scanned Document is available upon request. Effective:03-May-2018 Immunization Registry [place] - Effective on 05/26/2017. Expiration date unspecified Effective:26-May-2017 Name Dates Details Living Will - Effective on . Expiration date unspecified. Scanned Document is available upon request. Effective:03-May-2018 Immunization Registry [place] - Effective on 05/26/2017. Expiration date unspecified Effective:26-May-2017 Name Dates Details Living Will - Effective on . Expiration date unspecified. Scanned Document is available upon request. Effective:03-May-2018 Immunization Registry [place] - Effective on 05/26/2017. Expiration date unspecified Effective:26-May-2017 Documents on File Type Date Recorded Patient Outside Event Sales Specialist Expl anation Advance Directive(s) 01/02/2012 5:25 PM Advance Directive(s) 04/21/2010 Advance Directive(s) 04/20/2006 Name Dates Details Living Will - Effective on . Expiration date unspecified. Scanned Document is available upon request. Effective:03-May-2018 Immunization Registry [place] - Effective on 05/26/2017. Expiration date unspecified Effective:26-May-2017 Name Dates Details Living Will - Effective on . Expiration date unspecified. Scanned Document is available upon request. Effective:03-May-2018 Immunization Registry [place] - Effective on 05/26/2017. Expiration date unspecified Effective:26-May-2017 Name Dates Details Living Will - Effective on . Expiration date unspecified. Scanned Document is available upon request. Effective:03-May-2018 Immunization Registry [place] - Effective on 05/26/2017. Expiration date unspecified Effective:26-May-2017 Name Dates Details Living Will - Effective on . Expiration date unspecified. Scanned Document is available upon request. Effective:03-May-2018 Immunization Registry [place] - Effective on 05/26/2017. Expiration date unspecified Effective:26-May-2017 Advance Directive Response Recorded Date/ Time Living Will Yes March 12 1 2:53pm Power of Roll Icer Machine Yes March 12 021 2:53pm Name Dates Details Living Will - Effective on . Expiration date unspecified. Scanned Document is available upon request. Effective:03-May-2018 Immunization Registry [place] - Effective on 05/26/2017. Expiration date unspecified Effective:26-May-2017 Name Dates Details Living Will - Effective on . Expiration date unspecified. Scanned Document is available upon request. Effective:03-May-2018 Immunization Registry [place] - Effective on 05/26/2017. Expiration date unspecified Effective:26-May-2017 Name Dates Details Living Will - Effective on . Expiration date unspecified. Scanned Document is available upon request. Effective:03-May-2018 Immunization Registry [place] - Effective on 05/26/2017. Expiration date unspecified Effective:26-May-2017 Name Dates Details Living Will - Effective on . Expiration date unspecified. Scanned Document is available upon request. Effective:03-May-2018 Immunization Registry [place] - Effective on 05/26/2017. Expiration date unspecified Effective:26-May-2017 Name Dates Details Living Will - Effective on . Expiration date unspecified. Scanned Document is available upon request. Effective:03-May-2018 Immunization Registry [place] - Effective on 05/26/2017. Expiration date unspecified Effective:26-May-2017 Name Dates Details Living Will - Effective on . Expiration date unspecified. Scanned Document is available upon request. Effective:03-May-2018 Immunization Registry [place] - Effective on 05/26/2017. Expiration date unspecified Effective:26-May-2017 Name Dates Details Living Will - Effective on . Expiration date unspecified. Scanned Document is available upon request. Effective:03-May-2018 Immunization Registry [place] - Effective on 05/26/2017. Expiration date unspecified Effective:26-May-2017 Name Dates Details Living Will - Effective on . Expiration date unspecified. Scanned Document is available upon request. Effective:03-May-2018 Immunization Registry [place] - Effective on 05/26/2017. Expiration date unspecified Effective:26-May-2017 Name Dates Details Living Will - Effective on . Expiration date unspecified. Scanned Document is available upon request. Effective:03-May-2018 Immunization Registry [place] - Effective on 05/26/2017. Expiration date unspecified Effective:26-May-2017 Advance Directive Response Recorded Date/ Time Living Will Yes March 12 3:53pm Do you have a Healthcare Power of Roll Icer Machine? Yes March 12, 2020 3:53pm Chief Complaint and Reason for Visit Chief Complaint Admit Date 1 Y FU/MOVED FROM [facility] June 04, 2024 1: 27pm Reason for [...] 27, 2024 3:44pm 1 Y FU/MOVED FROM [facility] June 04, 2024 1: 27pm Chief Complaint [...] or prosecute any alcohol or drug abuse patient.[facility] Reason for Visit (unrecogniz ed section and content) Reason Comments Recheck Care Teams (unrecognized sec tion and content) Ward Attendant Relationship Specialty Start Date End Date Gia Grover DO PCP - General 02/09/06 Team Status: Active Member Role Status Dates Dr. Gia Grover , Family Provider Active Dr. Gia Grover , DO Primary Care Provider Active Team Status: Inactive Member Role Status Dates Dr. iGa Grover , DO Primary Care Provider Active Dr. Kevin [...] Primary Care Provider, Referring P rovider Active Agusto Johnson CAR KNOCKER, CAR KNOCKER-C Attending Provider Active Team Status: Active Member [...] June 04, 2024 End: June 04, 2024 Agusto Johnson CAR KNOCKER, CAR KNOCKER-C Attending Provider Active S tart: June 04, [...] section and content) DATE CREATED AUTHOR 12/26/2021 [facility] DATE CREATED AUTHOR AUTHOR'S ORGANIZ ATION 06/08/2022 [facility] DATE CREATED AUTHOR AUTHOR'S ORGANANTOINETTE ATION 01/13/2025 [facility] FOR RECORDS PERTAINING TO PATIENTS WHO ARE [...] BE BASED ON THE PRIMARY CLINICAL RECORDS. [facility] [employer] [facility]. provides no warranty or guarantee of the accuracy or completeness of information in this document.
--- NOTE | 2025-01-23 16:34 | STRESSREP ---
Stress Test Report Exercise myocardial perfusion stress test. 84-year-old female with a history of chest pain. Stress protocol: Resting EKG demonstrates normal sinus rhythm with a rate of 60 bpm resting blood pressure is 142/70 mmHg. The patient exercised according to the regular Wally protocol for a total duration of 5 minutes and 16 seconds attaining a maximum heart rate of 126 bpm which was 91% of maximum predicted heart rate; the maximum workload was 7 metabolic equivalents. At rest there were no ST or T wave changes noted to suggest ischemia and at peak exercise upsloping ST changes only were noted which did not meet the criteria for ischemia. No clinical angina was noted the test was terminated due to the target heart rate being achieved/fatigue. The peak blood pressure was 138/70 mmHg. Rate-pressure product was 23,000. Myocardial perfusion protocol. 12 mCi of technetium 99m sestamibi was injected at rest. The patient exercised according to regular Wally protocol for total duration of 5 minutes and 16 seconds and at peak exercise 33 mCi of technetium 99m sestamibi was injected stress images were obtained stress and rest images were reconstructed in comparing the short axis vertical long and horizontal long axis. Gated images were also obtained. Perfusion SPECT analysis: Review of the stress images demonstrate normal uptake of tracer noted in all areas of the myocardium. The resting images similarly demonstrate normal uptake of tracer noted in all areas of the myocardium. No areas of reversibility are noted to suggest ischemia no previous infarct was noted. Gated SPECT analysis: The gated ejection fraction is 80%. Conclusion: Normal exercise myocardial perfusion stress test at a moderate workload.
== END | disposition home or self-care (01) ==
LOC: CVS 06:54
PROVIDERS: PCP Internal Medicine; Referring Provider Internal Medicine; Visit Provider Internal Medicine
DX: R07.89 Other chest pain (principal)
CPT/HCPCS: 78452; 93017; 93306; A9500; A4216; J2785

== ENCOUNTER → 2025-02-05 | Outpatient (CLI) | payer MEDICARE, SELFPAY ==
--- NOTE | 2025-02-05 16:57 | MRI_ITS ---
PROCEDURE: SPINE LUMBAR (ROUTINE) 02/05/2025 REASON FOR EXAM: LUMBAR RADICULOPATHY TECHNIQUE: Procedure Code: MRISPL Modality: MR Procedure: SPINE LUMBAR (ROUTINE) COMPARISON: None available FINDINGS: The normal lumbar lordosis is maintained. There is lumbar levoscoliosis. The lumbar vertebral bodies are normal in height. There is L4-L5 left spondylolisthesis. Well-circumscribed T1/T2 hyperintense lesion in the T12 vertebral body compatible with osseous hemangioma. Focal area of sclerosis at the superior endplate of L1 vertebral body which may reflect bone island. The lumbar bone marrow signal is otherwise within normal limits. Multilevel disc desiccation. Intervertebral disc space height loss most prominent at L4-L5. There is no evidence of signal abnormality in the imaged distal spinal cord. The conus medullaris terminates at the level of L1-L2. T12-L1: No significant spinal canal stenosis or neural foraminal narrowing. L1-L2: No significant spinal canal stenosis or neural foraminal narrowing. L2-L3: Disc bulge, bilateral facet arthrosis, and ligamentum flavum hypertrophy contribute to mild spinal canal stenosis. Mild bilateral neural foraminal narrowing. Minimal type 2 Modic endplate changes. L3-L4: Disc bulge, bilateral facet arthrosis, and ligamentum flavum hypertrophy contribute to mild spinal canal stenosis. Mild right neural foraminal narrowing. Intact left neural foramen. L4-L5: Disc bulge, bilateral facet arthrosis, and ligamentum flavum hypertrophy contribute to mild spinal canal stenosis. [id number] right neural foraminal narrowing. No significant left neural foraminal narrowing. The right L4 exiting nerve roots abuts the disc. Type 2 Modic endplate changes. L5-S1: Disc bulge, bilateral facet arthrosis, and ligamentum flavum hypertrophy. Mild spinal canal stenosis. Mild right and [id number] left neural foraminal narrowing. The bilateral exiting nerve roots abut the disc. Fatty atrophy of the posterior paraspinal muscles. 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 There is a partially visualized cystic lesion in the right hepatic lobe. MRI/Spine Lumbar (Routine) IMPRESSION: Lumbar spondylosis without high-grade spinal canal stenosis. Additional detail s as discussed above. Reading Location: [id number]
== END | disposition home or self-care (01) ==
LOC: MRI 16:55
PROVIDERS: PCP Internal Medicine; Referring Provider Internal Medicine; Visit Provider Internal Medicine
DX: M54.16 Radiculopathy, lumbar region (principal)
CPT/HCPCS: 72148